=== PATIENT | female | born 1945 | race Caucasian/White ===

== ENCOUNTER 2016-09-27 09:06 | Emergency (ER) | payer OTHER ==
[~2016-09-27] VITALS: Ht 160 cm; Wt 89.5 kg
[~2016-09-27 09:06] MED LIST: ATOR-26 PO; CARV3.12 PO; CHOL2000 PO; CHRO1CAP3 PO; CITA20TA4 PO; FENO160T PO; GLIP-197 PO; LORA-741 PO; LOSA50TA6 PO; METF-384 PO; MRLP17 PO; NTRGSL/4 SL; OMEG10007 PO; OMEP40CA PO; POTA1TAB PO; SITA100T3 PO
[2016-09-27 09:13] VITALS: TEMP 37.2
[2016-09-27 09:14] VITALS: O2SAT 95
[2016-09-27 10:04] LABS: BASO % 0.6 %; BASO ABS # 0.03 K/uL (0-0.2); COMPLETE YES; EOS % 1.9 %; HEMATOCRIT 34.4 % (37-47); IG% 0.2 %; LYMPH % 31.7 %; LYMPH ABS # 1.64 K/uL (1.2-3.4); MEAN CELL VOLUME 82.5 fL (80-100); MEAN CORPUSCULAR HEMOGLOBIN 27.6 pg (25-34); MEAN CORPUSCULAR HGB CONC 33.4 g/dl (32-36); MEAN PLATELET VOLUME 10.1 fL (7.4-10.4); MONO % 7.7 %; NEUT % 57.9 %; PLATELET COUNT 210 K/uL (130-400); RED BLOOD COUNT 4.17 M/uL (4.2-5.4); WHITE BLOOD COUNT 5.18 K/uL (4.8-10.8)
[2016-09-27 10:11] LABS: ALT/SGPT 16 U/L (12-78); BLOOD UREA NITROGEN 22 mg/dl (7-18); BUN/CREATININE RATIO 17.9 (10-20); CALCIUM 8.6 mg/dl (8.5-10.1); CARBON DIOXIDE 23 mmol/L (21-32); CHLORIDE 111 mmol/L (98-107); GLUCOSE 150 mg/dl (70-99); POTASSIUM 4.5 mmol/L (3.5-5.1); SODIUM 144 mmol/L (136-145)
[2016-09-27] MEDS ORDERED: BACL10TA PO (10:14)
[2016-09-27] MEDS ORDERED: LACT10SO17 PO (10:14)
[2016-09-27 10:16] LABS: ALKALINE PHOSPHATASE 43 U/L (45-117); AST/SGOT 12 U/L (15-37)
[2016-09-27 10:17] LABS: PROTHROMBIN TIME (PATIENT) 10.9 SECONDS (9.0-12.0)
--- NOTE | 2016-09-27 10:26 | DIAGNOSTIC IMAGING REPORT ---
LEFT RIBS UNILATERAL WITH PA CHEST CLINICAL HISTORY: Left-sided pain. COMPARISON STUDY: Chest radiograph November 11, 2015. FINDINGS: There is no pneumothorax or pleural effusion. Lungs are clear. Cardiomediastinal silhouette is normal. There is no evidence of pulmonary edema. No acute left-sided rib fractures are identified. IMPRESSION: No pneumothorax. No acute left-sided rib fractures identified. Electronically signed by: Jimmy Chavarria M.D. 09/27/2016 10:25 AM Dictated Date/Time: 09/27/2016 10:24 AM
[2016-09-27] MEDS ORDERED: HYDROmorphone INJ 1 MG/ML SYR IV STA (11:37)
[2016-09-27 12:44] VITALS: O2SAT 98; Ht 160 cm; Wt 89.5 kg
[2016-09-27] MEDS ORDERED: OPTIRAY 320 IV PRN (12:45)
[2016-09-27 13:04] LABS: BASO % 0.7 %; BASO ABS # 0.04 K/uL (0-0.2); COMPLETE YES; EOS % 1.5 %; HEMATOCRIT 34.4 % (37-47); IG% 0.3 %; LYMPH % 30.9 %; LYMPH ABS # 1.85 K/uL (1.2-3.4); MEAN CELL VOLUME 84.9 fL (80-100); MEAN CORPUSCULAR HEMOGLOBIN 27.9 pg (25-34); MEAN CORPUSCULAR HGB CONC 32.8 g/dl (32-36); MEAN PLATELET VOLUME 10.1 fL (7.4-10.4); MONO % 6.2 %; NEUT % 60.4 %; PLATELET COUNT 199 K/uL (130-400); RED BLOOD COUNT 4.05 M/uL (4.2-5.4); WHITE BLOOD COUNT 5.98 K/uL (4.8-10.8)
[2016-09-27 13:27] LABS: ALKALINE PHOSPHATASE 42 U/L (45-117); ALT/SGPT 17 U/L (12-78); BLOOD UREA NITROGEN 22 mg/dl (7-18); BUN/CREATININE RATIO 19.8 (10-20); CALCIUM 8.5 mg/dl (8.5-10.1); CARBON DIOXIDE 29 mmol/L (21-32); CHLORIDE 111 mmol/L (98-107); GLUCOSE 133 mg/dl (70-99); SODIUM 147 mmol/L (136-145)
--- NOTE | 2016-09-27 13:40 | DIAGNOSTIC IMAGING REPORT ---
CT OF THE ABDOMEN AND PELVIS WITH CONTRAST CLINICAL HISTORY: Epigastric pain. Elevated lipase. COMPARISON STUDY: CT of the abdomen and pelvis November 29, 2013. TECHNIQUE: Following IV administration of 118 mL of Optiray-320, axial images of the abdomen and pelvis were obtained from the lung bases to the proximal femurs. Images were reviewed in the axial, sagittal, and coronal planes. IV contrast was administered without complication. CT DOSE: 789.53 mGy.cm FINDINGS: Visualized portions of the lower chest demonstrate mild wall thickening of the distal esophagus with a possible small hiatal hernia. The gallbladder is not visualized and likely surgically absent. Borderline dilatation of the common bile duct is unchanged since CT of November 29, 2013. The spleen, adrenal glands and kidneys are unremarkable. There is no hydronephrosis. There is no pancreatic ductal dilatation. There is no peripancreatic infiltration. The appearance of the pancreas is unchanged since a prior CT. There is no evidence for a bowel obstruction. The appendix is not visualized. No lymphadenopathy is present. Skeletal structures are unremarkable. IMPRESSION: 1. Normal CT appearance of the pancreas; however, this does not exclude the possibility of acute pancreatitis. 2. No acute process within the abdomen or pelvis by CT. Electronically signed by: Jimmy Chavarria M.D. 09/27/2016 1:39 PM Dictated Date/Time: 09/27/2016 1:29 PM
--- NOTE | 2016-09-27 14:01 | EMERGENCY ROOM VISIT NOTE ---
ED Visit Note First contact with patient: 09:28 Patient evaluated with JAVI. 71-year-old presented to the emergency room for waxing and waning most likely positional left-sided shoulder pain radiating down left arm over the last 2-3. She notes she is in low income housing and a house mate called for help today after the patient noted these symptoms. Coronary artery disease status post HI 3 roughly 10 years ago with cardiology follow-up reportedly within the last 2 years and negative stress test. She denies any exertional nor pleuritic components. Screening labs today revealed a lipase of over 3500 on the patient had minimal if any epigastric tenderness on my exam. She also denies any GI complaints. Is unclear but this lipase remains within the context of the clinical history and exam today. Therefore, repeat lab work arranged. Given unclear nature patient's results in the context the patient's complaints agree w/ plan for further evaluation.
--- NOTE | 2016-09-27 14:42 | EMERGENCY ROOM VISIT NOTE ---
History First contact with patient: 09:28 Chief Complaint: CHEST PAIN Stated Complaint: CHEST DISCOMFORT Nursing Triage Summary: chest pain for 2-3 weeks got worse last 2 days saw pcp and said pulled muscle. History of Present Illness The patient is a 71 year old female who presents to the Emergency Room with complaints of chest pain for the past 2 weeks which has gotten worse over the past 2 days. The patient states that she saw her PCP 2 days after the onset of the symptoms and was diagnosed with a pulled muscle. The patient denies any injury to the upper body. The patient denies any strenuous activity prior to the onset of the symptoms. The patient denies any increased shortness of breath. The patient states the pain goes across her chest and sometimes down her left arm with movement. She also states she has increased pain with a deep breath or cough. The patient denies any history of osteoporosis. The patient denies any current smoking but does smoke when she was younger. The patient denies any history of clots. She is not on any hormone she denies any recent travel. The patient states that she had a stress test one or 2 years ago which was normal. She was followed by Dr. Lau. She denies any history of cardiac disease. Review of Systems 10 system review was performed and was negative unless stated otherwise history of present illness. Past Medical/Surgical History Medical Problems: (1) Chest pain (2) Diabetes (3) Heart disease (4) HTN (hypertension) (5) AZ (myocardial infarction) (6) Right Knee DJD Family History Diabetes mellitus Hypertension Social History Smoking Status: Never Smoker Alcohol Use: none Drug Use: none Marital Status: Housing Status: lives with family Occupation Status: retired Current/Historical Medications Scheduled Atorvastatin (Lipitor), 80 MG PO HS Baclofen (Lioresal), 10 MG PO TID Carvedilol (Coreg), 3.125 MG PO QPM Cholecalciferol (Vitamin D3), 1 CAP PO QAM Chromium Picolinate (Chromium Picolinate), 1,000 MCG PO NOON Citalopram Hydrobromide (Citalopram Hydrobromide), 20 MG PO QAM Fenofibrate (Tricor), 160 MG PO NOON Fish Oil ([place]-3), 1 CAP PO QAM Glipizide (Glipizide Er), 5 MG PO QAM Losartan Potassium (Cozaar), 50 MG PO QAM Metformin Hcl (Glucophage), 1,000 MG PO BID Nitroglycerin (Nitrostat), 0.4 MG SL PRN Polyethylene (Miralax), 17 GM PO DAILY Potassium Gluconate (Potassium Gluconate), 595 MG PO QAM Sitagliptin Phosphate (Januvia), 100 MG PO QAM Scheduled PRN Lorazepam (Ativan), 0.5 MG PO QAM PRN for Anxiety Miscellaneous Medications Lactulose (Chronulac) Allergies Coded Allergies: Sulfa Antibiotics (Verified Allergy, Intermediate, HIVES, 09/27/16) Cephalexin (Verified Allergy, Unknown, RASH ITCHING, 09/27/16) Cephalosporins (Verified Allergy, Unknown, RASH ITCHING, 09/27/16) Physical Exam Vital Signs Date Time Temp Pulse Resp B/P Pulse Ox O2 Delivery O2 Flow Rate FiO2 09/27/16 13:45 88 18 158/94 97 09/27/16 13:05 75 09/27/16 12:44 98 Room Air 09/27/16 12:26 88 18 171/97 98 Room Air 09/27/16 11:07 76 18 148/90 96 Room Air 09/27/16 09:47 86 18 149/75 99 Room Air 09/27/16 09:15 91 09/27/16 09:14 95 Room Air 09/27/16 09:13 37.2 95 20 175/75 98 Room Air 09/27/16 09:10 98 Physical Exam GENERAL: 71-year-old white female appears in no acute distress. MENTAL Status: Alert and oriented 3 EYES: PERRLA. EOMs intact. NECK: Supple, no lymphadenopathy noted. No carotid bruits noted. LUNGS: Clear auscultation without wheezes rales or rhonchi. CARDIAC: Regular rate and rhythm without murmur. Pulses is full and equal throughout. CHEST WALL: No erythema or edema noted. No ecchymosis noted. The patient has tenderness palpation over the left anterior chest wall remainder chest wall is nontender. Able to reproduce increased pain with deep inspiration or movement of the left arm. ABDOMEN: Soft hyperactive bowel sounds throughout. Mild tenderness palpation in the epigastric region otherwise nontender without organomegaly or masses LOWER EXTREMITY is: No cyanosis or edema noted. Calves are nontender. Negative Homans bilaterally. Medical Decision & Procedures ER Provider Diagnostic Interpretation: LEFT RIBS UNILATERAL WITH PA CHEST CLINICAL HISTORY: Left-sided pain. COMPARISON STUDY: Chest radiograph November 11, 2015. FINDINGS: There is no pneumothorax or pleural effusion. Lungs are clear. Cardiomediastinal silhouette is normal. There is no evidence of pulmonary edema. No acute left-sided rib fractures are identified. IMPRESSION: No pneumothorax. No acute left-sided rib fractures identified. Electronically signed by: Jimmy Chavarria M.D. 09/27/2016 10:25 AM Dictated Date/Time: 09/27/2016 10:[address] OF THE ABDOMEN AND PELVIS WITH CONTRAST CLINICAL HISTORY: Epigastric pain. Elevated lipase. COMPARISON STUDY: CT of the abdomen and pelvis November 29, 2013. TECHNIQUE: Following IV administration of 118 mL of Optiray-320, axial images of the abdomen and pelvis were obtained from the lung bases to the proximal femurs. Images were reviewed in the axial, sagittal, and coronal planes. IV contrast was administered without complication. CT DOSE: 789.53 mGy.cm FINDINGS: Visualized portions of the lower chest demonstrate mild wall thickening of the distal esophagus with a possible small hiatal hernia. The gallbladder is not visualized and likely surgically absent. Borderline dilatation of the common bile duct is unchanged since CT of November 29, 2013. The spleen, adrenal glands and kidneys are unremarkable. There is no hydronephrosis. There is no pancreatic ductal dilatation. There is no peripancreatic infiltration. The appearance of the pancreas is unchanged since a prior CT. There is no evidence for a bowel obstruction. The appendix is not visualized. No lymphadenopathy is present. Skeletal structures are unremarkable. IMPRESSION: 1. Normal CT appearance of the pancreas; however, this does not exclude the possibility of acute pancreatitis. 2. No acute process within the abdomen or pelvis by CT. Electronically signed by: Jimmy Chavarria M.D. 09/27/2016 1:39 PM Dictated Date/Time: 09/27/2016 1:29 PM Laboratory Results 09/27/16 13:00 Red Blood Count 4.05, Mean Corpuscular Volume 84.9, Mean Corpuscular Hemoglobin 27.9, Mean Corpuscular Hemoglobin Concent 32.8, Mean Platelet Volume 10.1, Neutrophils (%) (Auto) 60.4, Lymphocytes (%) (Auto) 30.9, Monocytes (%) (Auto) 6.2, Eosinophils (%) (Auto) 1.5, Basophils (%) (Auto) 0.7, Neutrophils # (Auto) 3.61, Lymphocytes # (Auto) 1.85, Monocytes # (Auto) 0.37, Eosinophils # (Auto) 0.09, Basophils # (Auto) 0.04 09/27/16 13:00 Test 09/27/16 09:20 09/27/16 13:00 Prothrombin Time 10.9 SECONDS (9.0-12.0) Prothromb Time International Ratio 1.0 (0.9-1.1) Activated Partial Thromboplast Time 25.2 SECONDS (21.0-31.0) Partial Thromboplastin Ratio 1.0 D-Dimer 470 ug/L FEU (0-500) Total Creatine Kinase 36 U/L (26-192) Creatine Kinase MB < 0.5 ng/ml (0.5-3.6) Creatine Kinase MB Ratio (0-3.0) Pro-B-Type Natriuretic Peptide 365 pg/ml (0-900) White Blood Count 5.98 K/uL (4.8-10.8) Red Blood Count 4.05 M/uL (4.2-5.4) Hemoglobin 11.3 g/dL (12.0-16.0) Hematocrit 34.4 % (37-47) Mean Corpuscular Volume 84.9 fL (80-100) Mean Corpuscular Hemoglobin 27.9 pg (25-34) Mean Corpuscular Hemoglobin Concent 32.8 g/dl (32-36) Platelet Count 199 K/uL (130-400) Mean Platelet Volume 10.1 fL (7.4-10.4) Neutrophils (%) (Auto) 60.4 % Lymphocytes (%) (Auto) 30.9 % Monocytes (%) (Auto) 6.2 % Eosinophils (%) (Auto) 1.5 % Basophils (%) (Auto) 0.7 % Neutrophils # (Auto) 3.61 K/uL (1.4-6.5) Lymphocytes # (Auto) 1.85 K/uL (1.2-3.4) Monocytes # (Auto) 0.37 K/uL (0.11-0.59) Eosinophils # (Auto) 0.09 K/uL (0-0.5) Basophils # (Auto) 0.04 K/uL (0-0.2) RDW Standard Deviation 44.3 fL (36.4-46.3) RDW Coefficient of Variation 14.2 % (11.5-14.5) Immature Granulocyte % (Auto) 0.3 % Immature Granulocyte # (Auto) 0.02 K/uL (0.00-0.02) Anion Gap 7.0 mmol/L (3-11) Est Creatinine Clear Calc Drug Dose 51.2 ml/min Estimated GFR () 59.3 Estimated GFR (Non- 51.2 BUN/Creatinine Ratio 19.8 (10-20) Calcium Level 8.5 mg/dl (8.5-10.1) Total Bilirubin 0.3 mg/dl (0.2-1) Direct Bilirubin mg/dl (0-0.2) Aspartate Amino Transf (AST/SGOT) U/L (15-37) Alanine Aminotransferase (ALT/SGPT) 17 U/L (12-78) Alkaline Phosphatase 42 U/L (45-117) Troponin I 0.024 ng/ml (0-0.045) Total Protein 6.2 gm/dl (6.4-8.2) Albumin 3.2 gm/dl (3.4-5.0) Lipase 1463 U/L (73-393) ECG Indication: chest pain Rhythm: normal sinus Findings: no acute ischemic change Change: no significant change ED Course The patient was evaluated. The patient was placed on a monitor. IV access was obtained. The patient was offered pain medication but declined. CBC and differential and renal profile, coags, CK-MB,, LFTs, lipase, except for elevated troponin, d-dimer were ordered labs are reviewed and were all unremarkable except for lipase was elevated at 3000.. EKG was ordered and interpreted by myself as above without any acute findings. Rib x-rays with PA chest was ordered and interpreted by the radiologist and myself as above without any acute findings. Repeat troponin was ordered and was normal. The patient was independently evaluated by . The patient was not clinically correlated with the patient's elevated lipase for acute pancreatitis. Repeat labs were drawn and the patient's lipase went down until 1400. I contacted the hospitalist who also independently evaluated and did not feel that this patient needed to be admitted. A CT of the pelvis was ordered and interpreted by the radiologist as above without any acute findings. The decision was made to discharge the patient. The patient was in agreement with treatment plan. She was discharged home in stable condition. Medical Decision Since the patient did not have symptoms consistent with acute pancreatitis she was discharged home. Differential diagnosis for the chest pain and daily muscular strain, acute PE, acute AZ, pleuritic chest pain, pneumonia, bronchitis, rib fracture Impression Primary Impression: Chest wall pain Additional Impression: Elevated lipase Departure Information Dispostion Home / Self-Care Condition GOOD Referrals Lalito Pimentel M.D. (PCP) Forms HOME CARE DOCUMENTATION FORM, IMPORTANT VISIT INFORMATION Patient Instructions ED Chest Pain NonCardiac, [facility] Additional Instructions Tylenol and/or ibuprofen as needed for pain. Avoid any strenuous exercise which her upper body. Follow-up with your PCP in 2 days for recheck as well as repeat lipase. If symptoms worsen in the interim, return to ER immediately. Problem Qualifiers
[2016-09-27 14:47] VITALS: BP 168/89; PULSE 88; O2SAT 99
--- NOTE | 2016-09-28 07:25 | CONSULTATION REPORT ---
DATE OF CONSULTATION: 09/27/2016 CHIEF COMPLAINT: Chest pain HPI A 71 yo female comes with chest discomfort associated with left shoulder pain radiating down to her left arm. She describes her pain as sharp, 2/3. She lives in low-income housing and her housemate called for help today and patient noted those symptoms. PAST MEDICAL HISTORY: Coronary artery disease status post DC x3 roughly 10 years ago with cardiology follow up reportedly within the last 2 years and had a negative stress test. She denies any exertional pleuritic pain. Her labs revealed lipase of 3500; however, she had no abdominal pain. She has no nausea, vomiting, diarrhea, and no fever. REVIEW OF SYSTEMS: Negative except as above. Ten out of 14 systems were reviewed. PAST MEDICAL HISTORY: Chest pain, diabetes, heart disease, hypertension, DC, coronary artery disease, right knee DJD. FAMILY HISTORY: Diabetes mellitus and hypertension. SOCIAL HISTORY: Does not smoke, does not drink, does not use drugs. ALLERGIES: CEPHALEXIN, CEPHALOSPORINS, SULFA ANTIBIOTICS. CURRENT MEDICATIONS: Atorvastatin 80 mg p.o. at bedtime, baclofen 10 mg p.o. t.i.d., Coreg 3.125 mg p.o. daily, cholecalciferol 1 capsule p.o. daily, chromium 1000 mcg p.o. at noon time, citalopram 20 mg p.o. daily, fenofibrate 160 mg p.o. at noon time, fish oil 1 capsule p.o. daily, glipizide 5 mg p.o. daily, losartan 50 mg p.o. daily, metformin 1000 mg p.o. b.i.d., nitroglycerin 0.4 mg sublingual p.r.n., polyethylene 17 grams p.o. daily, potassium gluconate 595 mg p.o. daily and Januvia 100 mg p.o. daily, lorazepam 0.5 mg p.o. p.r.n. anxiety, and also lactulose unknown dose. PHYSICAL EXAMINATION: VITAL SIGNS: Temperature 37.2, pulse 88, respirations 18, blood pressure 158/94, 97% on room air. GENERAL: Not in acute distress. HEENT: Normocephalic, atraumatic. PERRLA, EOMI. Mouth moist, no lesions. NECK: No JVD. Trachea midline. Throat is not enlarged. LUNGS: Clear to auscultation bilateral. No wheezes, no rhonchi. HEART: S1, S2, RRR. ABDOMEN: Soft, nontender, nondistended, bowel sounds present bilateral. EXTREMITIES: No clubbing, cyanosis, edema. SKIN: No rash, no jaundice. LYMPHATIC: No pathological lymphadenopathy. NEUROLOGICAL: Alert and oriented x3. Motor and sensory are normal. Deep tendon reflexes 2+ bilateral. Babinski is negative. DIAGNOSTIC DATA: Chest x-ray with left ribs unilateral, no pneumothorax, no acute left-sided rib fractures identified. CT abdomen and pelvis with contrast showed normal CT appearance of the pancreas. No acute process within the abdomen and pelvis CT. LABORATORY DATA: CBC normal except for hemoglobin of 11.3. BMP: Sodium 147, potassium not done, chloride 111, CO2 of 29, BUN of 22, creatinine 1.1, glucose of 133, lipase of 3325 with repeat one in 4 hours is 1463. INR 1.0. PTT 25.2. D-dimer 470 and hepatitis C antibody pending on admission. ELECTROCARDIOGRAM: Normal sinus rhythm, 95 beats per minute. QTC 429. No ST-T wave changes, normal axis, no deviation. ASSESSMENT AND PLAN: This is a 71-year-old female who comes to Emergency Room complaining of chest discomfort, who found to have lipase of 3325. 1. Suspected acute pancreatitis which is resolving with repeat lipase level of 1463. The patient is symptomatic; therefore no admission is required. The patient should follow up with primary care physician in 2-3 weeks, and should follow up bland diet for 1 week and then continue with low fat diet. 2. Type 2 diabetes. Restart metformin and Januvia. The patient has stable sugars. 3. History of hypertension. Continue with losartan. 4. History of hyperlipidemia. Continue with Tricor and Lipitor. 5. Constipation. MiraLax p.r.n. 6. The patient is a full code. TIME SPENT ON DOING THIS CONSULTATION: 40 minutes. FABIOLA
[2017-03-07] MEDS ORDERED: PANT40TA PO (10:20)
[2017-03-07] MEDS ORDERED: LORA-741 PO (10:20)
[2017-03-07] MEDS ORDERED: CRFUDL PO (10:20)
== END 2016-09-27 14:59 | disposition home or self-care (01) ==
LOC: C.EDB 09:06 → EDBD 09:06 → C.EDB 14:59
DX: R07.89 Other chest pain (principal); R74.8 Abnormal levels of other serum enzymes; I25.10 Atherosclerotic heart disease of native coronary artery without angina pectoris; E11.9 Type 2 diabetes mellitus without complications; I10 Essential (primary) hypertension; E78.5 Hyperlipidemia, unspecified; I25.2 Old myocardial infarction; M17.9 Osteoarthritis of knee, unspecified; Z83.3 Family history of diabetes mellitus; Z82.49 Family history of ischemic heart disease and other diseases of the circulatory system; Z87.891 Personal history of nicotine dependence; Z79.899 Other long term (current) drug therapy

== ENCOUNTER → 2016-09-28 | Outpatient (CLI) | payer OTHER ==
[~2016-09-28] MED LIST changes: +BACL10TA PO; +CRFUDL PO; +CYM30 PO; +INSDGIPEN SQ; +ISOS60TA25 PO; +LACT10SO17 PO; +LISI-461 PO; +PANT40TA PO; +ROSU40TA18 PO
[2016-09-28 17:17] LABS: BASO % 0.7 %; BASO ABS # 0.04 K/uL (0-0.2); COMPLETE YES; EOS % 1.5 %; HEMATOCRIT 34.5 % (37-47); IG% 0.4 %; LYMPH % 36.7 %; MEAN CELL VOLUME 84.1 fL (80-100); MEAN CORPUSCULAR HEMOGLOBIN 27.3 pg (25-34); MEAN CORPUSCULAR HGB CONC 32.5 g/dl (32-36); MEAN PLATELET VOLUME 10.7 fL (7.4-10.4); NEUT % 53.7 %; PLATELET COUNT 230 K/uL (130-400); WHITE BLOOD COUNT 5.45 K/uL (4.8-10.8)
[2016-09-28 17:32] LABS: ALT/SGPT 16 U/L (12-78); BLOOD UREA NITROGEN 24 mg/dl (7-18); CARBON DIOXIDE 27 mmol/L (21-32); CHLORIDE 107 mmol/L (98-107); GLUCOSE 191 mg/dl (70-99); POTASSIUM 4.1 mmol/L (3.5-5.1); SODIUM 145 mmol/L (136-145)
[2016-09-28 17:35] LABS: ALKALINE PHOSPHATASE 46 U/L (45-117); AST/SGOT 11 U/L (15-37)
== END | disposition home or self-care (01) ==
LOC: C.LABBC 15:15
PROVIDERS: ATTEND Internal Medicine Geriatric Medicine
DX: R74.8 Abnormal levels of other serum enzymes (principal); E11.9 Type 2 diabetes mellitus without complications

== ENCOUNTER → 2016-11-03 | Outpatient (CLI) | payer OTHER ==
[~2016-11-03] MED LIST changes: -OMEP40CA PO
[2016-11-03 12:43] LABS: ESTIMATED AVERAGE GLUCOSE 263 mg/dl; HA1C FLAG Normal (Normal)
[2016-11-03 13:26] LABS: ALT/SGPT 31 U/L (12-78); AST/SGOT 13 U/L (15-37); BLOOD UREA NITROGEN 14 mg/dl (7-18); BUN/CREATININE RATIO 12.4 (10-20); CALCIUM 9.3 mg/dl (8.5-10.1); CARBON DIOXIDE 30 mmol/L (21-32); CHLORIDE 102 mmol/L (98-107); GLUCOSE 334 mg/dl (70-99); POTASSIUM 4.8 mmol/L (3.5-5.1); SODIUM 138 mmol/L (136-145)
[2016-11-03 13:31] LABS: ALKALINE PHOSPHATASE 81 U/L (45-117); CHOLESTEROL 219 mg/dl (0-200); CHOLESTEROL/HDL RATIO 6.8; HDL CHOLESTEROL 32 mg/dl; LDL CHOLESTEROL CALCULATED 118 mg/dl; TRIGLYCERIDES 345 mg/dl (0-150); VERY LOW DENSITY LIPOPROT CALC 69 mg/dl
[2016-11-03 13:38] LABS: BETA-HYDROXYBUTYRATE 1.09 mg/dL (0.2-2.81)
--- NOTE | 2016-11-09 09:05 | CODING QUERY MEDICAL NECESSITY ---
SUPPORTING DIAGNOSIS NEEDED A supporting diagnosis is required for the test/procedure performed on this patient in order for us to be reimbursed by the patient's insurance. Please provide a supporting diagnosis for the following test/procedure listed below next to the test name along with your signature. *If there is no additional diagnosis for this patient that would support the following test/procedure please document that below next to the test/procedure. Test(s)/Procedure(s) that require a supporting diagnosis: DOS 11/03 * Hba1c DIAGNOSIS: Provider Signature: Date: Thank you [facility] Once completed, please kindly fax back to [phone] For questions please call [phone]
== END | disposition home or self-care (01) ==
LOC: C.LABBFT 08:49
PROVIDERS: ATTEND Internal Medicine
DX: I10 Essential (primary) hypertension (principal); E11.9 Type 2 diabetes mellitus without complications

== ENCOUNTER 2017-01-21 10:03 | Emergency (ER) | payer OTHER ==
[~2017-01-21] VITALS: Ht 160 cm; Wt 85.6 kg
[~2017-01-21 10:03] MED LIST changes: -CRFUDL PO; -CYM30 PO; -INSDGIPEN SQ; -ISOS60TA25 PO; -LISI-461 PO; -PANT40TA PO; -ROSU40TA18 PO
[2017-01-21 10:07] VITALS: TEMP 37; Ht 160 cm; Wt 85.6 kg
--- NOTE | 2017-01-21 10:34 | EMERGENCY ROOM VISIT NOTE ---
History Report prepared by Ema: Nicki Calvin Under the Supervision of: Dr. Taryn Duarte M.D. First contact with patient: 10:23 Chief Complaint: CARDIAC ASSESSMENT Stated Complaint: CHEST PAIN AND PAIN DOWN LEFT ARM History of Present Illness The patient is a 71 year old female who presents to the Emergency Room with complaints of constant chest pain beginning today. The patient states that she has been having chest pain over the last month and has been seeing her doctor for the pain. She reports that today her pain worsened and that is why she came into the ED this morning. She notes that her pain is radiating into her left arm. The patient complains of left arm pain. She denies any cough, cold, and runny nose. She states that she has had a stress test before that was normal. The patient reports that she has a history of pancreatitis and CAD. She notes that when she moves and takes a deep breath it makes her chest pain worse. She states that she has not taken her medications today. Source of History: patient Onset: today Position: chest Quality: other (radiating) Timing: constant Modifying Factors (Worsening): movement Associated Symptoms: No sorethroat, No cough Note: Pt denies any runny nose. She complains of left arm pain. Review of Systems See HPI for pertinent positives & negatives. A total of 10 systems reviewed and were otherwise negative. Past Medical & Surgical Medical Problems: (1) Chest pain (2) Diabetes (3) Heart disease (4) HTN (hypertension) (5) [place] (myocardial infarction) (6) Right Knee DJD Family History Diabetes mellitus Hypertension Social History Smoking Status: Former Smoker Alcohol Use: none Drug Use: none Marital Status: Housing Status: lives with family Occupation Status: retired Current/Historical Medications Scheduled Atorvastatin (Lipitor), 80 MG PO HS Baclofen (Lioresal), 10 MG PO TID Carvedilol (Coreg), 3.125 MG PO QPM Cholecalciferol (Vitamin D3), 1 CAP PO QAM Chromium Picolinate (Chromium Picolinate), 1,000 MCG PO NOON Citalopram Hydrobromide (Citalopram Hydrobromide), 20 MG PO QAM Fenofibrate (Tricor), 160 MG PO NOON Fish Oil ([place]-3), 1 CAP PO QAM Glipizide (Glipizide Er), 5 MG PO QAM Lactulose (Chronulac), 15 ML PO UD Losartan Potassium (Cozaar), 50 MG PO QAM Metformin Hcl (Glucophage), 1,000 MG PO BID Nitroglycerin (Nitrostat), 0.4 MG SL PRN Polyethylene (Miralax), 17 GM PO DAILY Potassium Gluconate (Potassium Gluconate), 595 MG PO QAM Sitagliptin Phosphate (Januvia), 100 MG PO QAM Scheduled PRN Lorazepam (Ativan), 0.5 MG PO QAM PRN for Anxiety Allergies Coded Allergies: Sulfa Antibiotics (Verified Allergy, Intermediate, HIVES, 01/21/17) Cephalexin (Verified Allergy, Unknown, RASH ITCHING, 01/21/17) Cephalosporins (Verified Allergy, Unknown, RASH ITCHING, 01/21/17) Physical Exam Vital Signs Date Time Temp Pulse Resp B/P (MAP) Pulse Ox O2 Delivery O2 Flow Rate FiO2 01/21/17 13:34 59 15 149/80 96 Room Air 01/21/17 12:40 61 01/21/17 11:54 71 22 160/86 99 Room Air 01/21/17 11:52 94 Room Air 01/21/17 10:17 72 01/21/17 10:07 37.0 73 18 177/78 99 Room Air Physical Exam Vital signs reviewed. General: Chronically ill-appearing, elderly, in no significant distress. HEENT: No scleral icterus, PERRLA, neck supple. Atraumatic. Cardiovascular: Regular rate and rhythm, no extra sounds. Pulmonary: Clear to auscultation bilaterally, normal work of breathing. Abdomen: Soft, nontender, nondistended, positive bowel sounds. Musculoskeletal: Atraumatic, no peripheral edema. Neurologic: Patient awake alert and oriented x 3 Skin: Warm, dry, no rash Medical Decision & Procedures ER Provider Diagnostic Interpretation: X-ray results as stated below per interpretation by me and the radiologist: CHEST ONE VIEW PORTABLE FINDINGS: The heart is at the upper limits of normal in size. There is no overt failure. There is no focal pulmonary consolidation. There are no pleural effusions. IMPRESSION: No active disease in the chest. Electronically signed by: Edis Childs M.D. 01/21/2017 11:01 AM Dictated Date/Time: 01/21/2017 11:01 AM Laboratory Results 01/21/17 10:19 Red Blood Count 4.38, Mean Corpuscular Volume 83.1, Mean Corpuscular Hemoglobin 28.1, Mean Corpuscular Hemoglobin Concent 33.8, Mean Platelet Volume 10.0, Neutrophils (%) (Auto) 59.9, Lymphocytes (%) (Auto) 30.4, Monocytes (%) (Auto) 7.6, Eosinophils (%) (Auto) 1.6, Basophils (%) (Auto) 0.4, Neutrophils # (Auto) 4.01, Lymphocytes # (Auto) 2.04, Monocytes # (Auto) 0.51, Eosinophils # (Auto) 0.11, Basophils # (Auto) 0.03 01/21/17 10:19 Test 01/21/17 10:19 01/21/17 10:50 White Blood Count 6.71 K/uL (4.8-10.8) Red Blood Count 4.38 M/uL (4.2-5.4) Hemoglobin 12.3 g/dL (12.0-16.0) Hematocrit 36.4 % (37-47) Mean Corpuscular Volume 83.1 fL (80-100) Mean Corpuscular Hemoglobin 28.1 pg (25-34) Mean Corpuscular Hemoglobin Concent 33.8 g/dl (32-36) Platelet Count 186 K/uL (130-400) Mean Platelet Volume 10.0 fL (7.4-10.4) Neutrophils (%) (Auto) 59.9 % Lymphocytes (%) (Auto) 30.4 % Monocytes (%) (Auto) 7.6 % Eosinophils (%) (Auto) 1.6 % Basophils (%) (Auto) 0.4 % Neutrophils # (Auto) 4.01 K/uL (1.4-6.5) Lymphocytes # (Auto) 2.04 K/uL (1.2-3.4) Monocytes # (Auto) 0.51 K/uL (0.11-0.59) Eosinophils # (Auto) 0.11 K/uL (0-0.5) Basophils # (Auto) 0.03 K/uL (0-0.2) RDW Standard Deviation 41.1 fL (36.4-46.3) RDW Coefficient of Variation 13.6 % (11.5-14.5) Immature Granulocyte % (Auto) 0.1 % Immature Granulocyte # (Auto) 0.01 K/uL (0.00-0.02) Anion Gap 7.0 mmol/L (3-11) Est Creatinine Clear Calc Drug Dose 55.0 ml/min Estimated GFR () 66.6 Estimated GFR (Non- 57.4 BUN/Creatinine Ratio 17.6 (10-20) Calcium Level 8.7 mg/dl (8.5-10.1) Total Bilirubin 0.4 mg/dl (0.2-1) Direct Bilirubin 0.1 mg/dl (0-0.2) Aspartate Amino Transf (AST/SGOT) 15 U/L (15-37) Alanine Aminotransferase (ALT/SGPT) 22 U/L (12-78) Alkaline Phosphatase 75 U/L (45-117) Total Creatine Kinase 48 U/L (26-192) Creatine Kinase MB < 0.5 ng/ml (0.5-3.6) Creatine Kinase MB Ratio (0-3.0) Total Protein 7.1 gm/dl (6.4-8.2) Albumin 3.6 gm/dl (3.4-5.0) Lipase 368 U/L (73-393) Bedside Troponin I < 0.030 ng/ml (0-0.045) Laboratory results per my review. Medications Administered Medications (Trade) Dose Ordered Sig/Jett Route Start Time Stop Time Status Last Admin Dose Admin Aspirin (Aspirin Chew) 324 mg NOW STAT PO 01/21/17 10:44 01/21/17 10:47 DC 01/21/17 11:51 324 MG Acetaminophen/ Hydrocodone Bitart ([place] 5/325 Tab) 1 tab NOW STAT PO 01/21/17 10:44 01/21/17 10:47 DC 01/21/17 11:50 1 TAB ECG Indication: chest pain Rate (beats per minute): 68 Rhythm: normal sinus Findings: no acute ischemic change, no ectopy ED Course 1023: Past medical records reviewed. The patient was evaluated in room B6. A complete history and physical examination was performed. 1044: [place] 5/325 Tab 1 tab PO, Aspirin 324mg PO. 1334: Upon reevaluation, the patient appeared to have improvement of her symptoms. I discussed findings with the patient. She verbalized agreement of the treatment plan. The patient was discharged home. Medical Decision DDx: Acute coronary syndrome, pulmonary embolus, aortic dissection, musculoskeletal pain, pneumonia, pleural effusion, pneumothorax Medication Reconciliation: I attest that I have personally reviewed the patient' s current medication list. Blood Pressure Screening: Patient was found to have an elevated blood pressure and was referred to their primary doctor for recheck and further treatment. This pt was evaluated and appeared to be in no distress. IV access was obtained and lab work was drawn. EKG reveals no acute ischemia. CXR is negative. Pt was given ASA 324mg po. PE is significant for reproducible L chest wall tenderness. Cardiac enzymes are negative x 2. Pt was d/c to f/u with PCP and to return to the ED for worsening of symptoms or any medical concerns. She will return to the ED for worsening of symptoms or any medical concerns. Impression Primary Impression: Musculoskeletal chest pain Scribe Attestation The scribe's documentation has been prepared under my direction and personally reviewed by me in its entirety. I confirm that the note above accurately reflects all work, treatment, procedures, and medical decision making performed by me. Departure Information Dispostion Home / Self-Care Referrals Lalito Pimentel M.D. (PCP) Forms IMPORTANT VISIT INFORMATION Patient Instructions My [facility] [place] Additional Instructions Diagnosis: Musculoskeletal chest pain Tylenol 650 mg every 6 hours as needed for pain. Warm compresses and gentle stretching for relief of her discomfort. Follow-up with your primary care physician for consideration of physical therapy if symptoms continue. Return to the ER for worsening of symptoms or any medical concerns.
[2017-01-21] MEDS ORDERED: ASPIRIN 81 MG CHEW PO STA (10:44)
[2017-01-21] MEDS ORDERED: HYDROCODONE/ACETAMOPHEN 5/325MG TAB PO STA (10:44)
[2017-01-21 10:53] LABS: BASO % 0.4 %; BASO ABS # 0.03 K/uL (0-0.2); COMPLETE YES; EOS % 1.6 %; HEMATOCRIT 36.4 % (37-47); IG% 0.1 %; LYMPH % 30.4 %; LYMPH ABS # 2.04 K/uL (1.2-3.4); MEAN CELL VOLUME 83.1 fL (80-100); MEAN CORPUSCULAR HEMOGLOBIN 28.1 pg (25-34); MEAN CORPUSCULAR HGB CONC 33.8 g/dl (32-36); MONO % 7.6 %; NEUT % 59.9 %; PLATELET COUNT 186 K/uL (130-400); RED BLOOD COUNT 4.38 M/uL (4.2-5.4); WHITE BLOOD COUNT 6.71 K/uL (4.8-10.8)
--- NOTE | 2017-01-21 11:03 | DIAGNOSTIC IMAGING REPORT ---
CHEST ONE VIEW PORTABLE CLINICAL HISTORY: Atypical chest pain COMPARISON STUDY: 11/11/2015 FINDINGS: The heart is at the upper limits of normal in size. There is no overt failure. There is no focal pulmonary consolidation. There are no pleural effusions.[ IMPRESSION: No active disease in the chest. Electronically signed by: Edis Childs M.D. 01/21/2017 11:01 AM Dictated Date/Time: 01/21/2017 11:01 AM
[2017-01-21 11:04] LABS: ALT/SGPT 22 U/L (12-78); AST/SGOT 15 U/L (15-37); BLOOD UREA NITROGEN 18 mg/dl (7-18); BUN/CREATININE RATIO 17.6 (10-20); CALCIUM 8.7 mg/dl (8.5-10.1); CARBON DIOXIDE 26 mmol/L (21-32); CHLORIDE 110 mmol/L (98-107); GLUCOSE 105 mg/dl (70-99); POTASSIUM 4.3 mmol/L (3.5-5.1); SODIUM 143 mmol/L (136-145)
[2017-01-21 11:09] LABS: ALKALINE PHOSPHATASE 75 U/L (45-117)
[2017-01-21 13:34] VITALS: BP 149/80; PULSE 59; O2SAT 96
[2017-03-07] MEDS ORDERED: CRFUDL PO (10:20)
[2017-03-07] MEDS ORDERED: PANT40TA PO (10:20)
[2017-03-07] MEDS ORDERED: LORA-741 PO (10:20)
== END 2017-01-21 13:37 | disposition home or self-care (01) ==
LOC: C.EDB 10:05
DX: R07.89 Other chest pain (principal); I10 Essential (primary) hypertension; E11.9 Type 2 diabetes mellitus without complications; I51.9 Heart disease, unspecified; I25.2 Old myocardial infarction; M17.11 Unilateral primary osteoarthritis, right knee; Z79.84 Long term (current) use of oral hypoglycemic drugs; Z79.899 Other long term (current) drug therapy; Z87.891 Personal history of nicotine dependence; Z88.2 Allergy status to sulfonamides; Z83.3 Family history of diabetes mellitus; Z82.49 Family history of ischemic heart disease and other diseases of the circulatory system

== ENCOUNTER → 2017-02-01 | Outpatient (CLI) | payer OTHER ==
[~2017-02-01] MED LIST changes: +CRFUDL PO; +CYM30 PO; +INSDGIPEN SQ; +ISOS60TA25 PO; +LISI-461 PO; +PANT40TA PO; +ROSU40TA18 PO
--- NOTE | 2017-02-01 15:28 | DIAGNOSTIC IMAGING REPORT ---
CERVICAL SPINE 3 VIEWS HISTORY: Pain. Radiculopathy. M54.2 Cervical pain (neck)[id number] COMPARISON: None. FINDINGS: The cervical spine is visualized from C1 through the superior endplate of T1. There is no fracture. No subluxation. Disc spaces are preserved. Minimal degenerative changes C1-C2 articulation IMPRESSION: Minimal degenerative change of the C1-C2 articulation. Otherwise negative study Electronically signed by: Kendall Martin M.D. 02/01/2017 3:27 PM Dictated Date/Time: 02/01/2017 3:26 PM
== END | disposition home or self-care (01) ==
LOC: C.RAD1850 14:58
PROVIDERS: ATTEND Physician Assistant
DX: M54.2 Cervicalgia (principal)

== ENCOUNTER 2017-03-04 17:12 | Observation (INO) | payer OTHER ==
[~2017-03-04] VITALS: Ht 160 cm; Wt 86.3 kg
[~2017-03-04 17:12] MED LIST changes: -CRFUDL PO; -CYM30 PO; -INSDGIPEN SQ; -ISOS60TA25 PO; -LISI-461 PO; -PANT40TA PO; -ROSU40TA18 PO
[2017-03-04] MEDS ORDERED: ONDANSETRON INJ 2 MG/ML 2 ML VIAL IV STA (17:26)
[2017-03-04] MEDS ORDERED: MoRPHine SULFATE 4 MG/ML 1 ML CARP\\VIAL IV STA (17:26)
[2017-03-04] MEDS ORDERED: CYM30 PO (17:29)
[2017-03-04] MEDS ORDERED: ISOS60TA25 PO (17:29)
--- NOTE | 2017-03-04 17:29 | EMERGENCY ROOM VISIT NOTE ---
History Report prepared by Ema: Abel Morales Under the Supervision of: Dr. Lio Duarte M.D. First contact with patient: 17:19 Chief Complaint: CHEST PAIN Stated Complaint: HEART PAIN History of Present Illness The patient is a 71 year old female with a history of depression, diabetes, and heart attacks who presents to the Emergency Room with complaints of worsening chest pain that started a couple months ago. She says that she has been seen here 3 times in the past 2 months for the same chest pain, and states that nothing abnormal has been found. The patient states that she has had worsening chest pain since this morning, and she called her primary care physician's office earlier today, and was recommended to come here for evaluation. The patient says that she aches "all the time" in her chest. She notes that she did not fall or injure herself. She states that the pain is worsened with breathing and movement. The patient adds that she has not had any energy recently, and cannot walk more than 10 minutes. The patient says that she has been short of breath, and her chest pain is exacerbated with breathing or movement. She notes that she is diabetic, but has not taken her medication the past few days due to not feeling well. She denies any new leg or foot swelling. The patient had a stress test last October. She is not on any blood thinners. Source of History: patient Onset: A couple months ago Position: chest Quality: ache Timing: worsening Modifying Factors (Worsening): breathing, movement Associated Symptoms: + SOB, + fatigue Note: Associated symptoms: Denies any new foot or leg swelling. Review of Systems See HPI for pertinent positives & negatives. A total of 10 systems reviewed and were otherwise negative. Past Medical & Surgical Medical Problems: (1) Chest pain (2) Diabetes (3) Diabetes (4) Heart disease (5) HTN (hypertension) (6) [place] (myocardial infarction) (7) Right Knee DJD Old medical records were reviewed. Nurse's notes were reviewed and I agree with. Family History Diabetes mellitus Hypertension Social History Smoking Status: Former Smoker Alcohol Use: none Drug Use: none Marital Status: Housing Status: lives with family Occupation Status: retired Current/Historical Medications Scheduled Baclofen (Lioresal), 10 MG PO TID Carvedilol (Coreg), 3.125 MG PO QPM Cholecalciferol (Vitamin D3), 1 CAP PO QAM Chromium Picolinate (Chromium Picolinate), 1,000 MCG PO NOON Citalopram Hydrobromide (Citalopram Hydrobromide), 20 MG PO QAM Duloxetine HCl (Duloxetine HCl), 30 MG PO DAILY Fenofibrate (Tricor), 160 MG PO NOON Fish Oil ([place]-3), 1 CAP PO QAM Glipizide (Glipizide Er), 5 MG PO QAM Insulin Glargine (Lantus Solostar), 10 UNITS SQ QPM Isosorbide Mononitrate Ext Rel (Imdur Ext Rel), 60 MG PO DAILY Lactulose (Chronulac), 15 ML PO UD Lisinopril (Lisinopril), 10 MG PO DAILY Losartan Potassium (Cozaar), 50 MG PO QAM Metformin Hcl (Glucophage), 1,000 MG PO BID Nitroglycerin (Nitrostat), 0.4 MG SL PRN Polyethylene (Miralax), 17 GM PO DAILY Potassium Gluconate (Potassium Gluconate), 595 MG PO QAM Rosuvastatin Calcium (Rosuvastatin Calcium), 40 MG PO DAILY Sitagliptin Phosphate (Januvia), 100 MG PO QAM Scheduled PRN Lorazepam (Ativan), 0.5 MG PO QAM PRN for Anxiety Allergies Coded Allergies: Sulfa Antibiotics (Verified Allergy, Intermediate, HIVES, 01/21/17) Cephalexin (Verified Allergy, Unknown, RASH ITCHING, 03/04/17) Cephalosporins (Verified Allergy, Unknown, RASH ITCHING, 03/04/17) Physical Exam Vital Signs Date Time Temp Pulse Resp B/P (MAP) Pulse Ox O2 Delivery O2 Flow Rate FiO2 03/04/17 19:57 72 18 137/82 96 Room Air 03/04/17 18:30 83 03/04/17 18:06 74 18 129/66 94 Room Air 03/04/17 17:24 Room Air 03/04/17 17:17 36.7 86 16 144/80 97 Physical Exam General: Well developed well nourished teary eyed older female in no respiratory distress, breathing comfortably on room air. Normal speech HEENT: Normal cephalic atraumatic. Pupils are equal round and reactive to light. Extraocular movements are intact. Oropharynx is pink with moist mucous membranes. No swelling of the mouth lips or tongue. Neck: Supple with a midline trachea. No meningeal signs or stiffness, no JVD or bruits. No Stridor. Chest: Chest reproducibly tender. Clear to auscultation bilaterally. No wheezes or rhonchi. No increased work of breathing. Heart: regular rate and rhythm. Abdomen: Soft nontender, nondistended without rebound guarding or rigidity. Extremities: No cyanosis clubbing or edema. No calf tenderness or assymetry Spine/Back. Non tender to palpation. No CVA tenderness Skin: Good turgor without rashes. Neurologic exam: Cranial nerves two through 12 are intact. Motor and sensation are intact and symmetrical throughout. Medical Decision & Procedures ER Provider Diagnostic Interpretation: Radiology results as stated below per my review and radiologist interpretation: CHEST ONE VIEW PORTABLE CLINICAL HISTORY: CHEST PAIN dyspnea COMPARISON STUDY: 01/21/2017 FINDINGS: The bones soft tissues and hemidiaphragms are normal. The cardiomediastinal silhouette is normal. The lungs are clear. The pulmonary vasculature is normal. IMPRESSION: Negative chest. The above report was generated using voice recognition software. It may contain grammatical, syntax or spelling errors. Electronically signed by: Kendall Martin M.D. 03/04/2017 5:54 PM Dictated Date/Time: 03/04/2017 5:[address] ANGIOGRAPHY OF THE CHEST, PULMONARY EMBOLUS PROTOCOL CLINICAL HISTORY: Chest pain. COMPARISON STUDY: Chest radiograph January 21, 2017 and March 04, 2017. TECHNIQUE: Following IV administration of 81 mL of Optiray-320, helical axial images of the chest were obtained utilizing the pulmonary embolus protocol. Maximal intensity projections and sagittal and coronal reformats were viewed on an independent 3D workstation. IV contrast was administered without complication. A dose lowering technique was utilized adhering to the principles of ALARA. CT DOSE: 481.11 mGy.cm FINDINGS: No pulmonary emboli are identified. There is no thoracic aortic dissection. The heart is mildly enlarged. There is no pericardial effusion. There is moderate coronary artery calcification. There is mild distal esophageal wall thickening. No pneumothorax or pleural effusion is present. There are no areas of consolidation to suggest pneumonia. Mild dependent groundglass opacities reflect atelectasis. The central airways are patent. There are no enlarged axillary, mediastinal or hilar lymph nodes. The bony thorax and upper abdomen are unremarkable. IMPRESSION: 1. No pulmonary emboli identified. 2. No consolidation to suggest pneumonia. 3. Mild cardiomegaly and moderate coronary artery calcification. No thoracic aortic dissection. 4. Mild distal esophageal wall thickening. This is nonspecific and could be due to underdistention although esophagitis could have this appearance. Electronically signed by: Jimmy Chavarria M.D. 03/04/2017 7:31 PM Dictated Date/Time: 03/04/2017 7:23 PM Laboratory Results 03/04/17 17:30 Red Blood Count 4.46, Mean Corpuscular Volume 80.9, Mean Corpuscular Hemoglobin 28.3, Mean Corpuscular Hemoglobin Concent 34.9, Mean Platelet Volume 9.9, Neutrophils (%) (Auto) 84.2, Lymphocytes (%) (Auto) 12.2, Monocytes (%) (Auto) 2.5, Eosinophils (%) (Auto) 0.0, Basophils (%) (Auto) 0.1, Neutrophils # (Auto) 7.72, Lymphocytes # (Auto) 1.12, Monocytes # (Auto) 0.23, Eosinophils # (Auto) 0.00, Basophils # (Auto) 0.01 03/04/17 17:30 Test 03/04/17 17:30 03/04/17 17:34 White Blood Count 9.17 K/uL (4.8-10.8) Red Blood Count 4.46 M/uL (4.2-5.4) Hemoglobin 12.6 g/dL (12.0-16.0) Hematocrit 36.1 % (37-47) Mean Corpuscular Volume 80.9 fL (80-100) Mean Corpuscular Hemoglobin 28.3 pg (25-34) Mean Corpuscular Hemoglobin Concent 34.9 g/dl (32-36) Platelet Count 263 K/uL (130-400) Mean Platelet Volume 9.9 fL (7.4-10.4) Neutrophils (%) (Auto) 84.2 % Lymphocytes (%) (Auto) 12.2 % Monocytes (%) (Auto) 2.5 % Eosinophils (%) (Auto) 0.0 % Basophils (%) (Auto) 0.1 % Neutrophils # (Auto) 7.72 K/uL (1.4-6.5) Lymphocytes # (Auto) 1.12 K/uL (1.2-3.4) Monocytes # (Auto) 0.23 K/uL (0.11-0.59) Eosinophils # (Auto) 0.00 K/uL (0-0.5) Basophils # (Auto) 0.01 K/uL (0-0.2) RDW Standard Deviation 41.5 fL (36.4-46.3) RDW Coefficient of Variation 14.0 % (11.5-14.5) Immature Granulocyte % (Auto) 1.0 % Immature Granulocyte # (Auto) 0.09 K/uL (0.00-0.02) Anion Gap 7.0 mmol/L (3-11) Est Creatinine Clear Calc Drug Dose 38.9 ml/min Estimated GFR () 44.3 Estimated GFR (Non- 38.2 BUN/Creatinine Ratio 17.5 (10-20) Calcium Level 10.4 mg/dl (8.5-10.1) Total Bilirubin 0.4 mg/dl (0.2-1) Direct Bilirubin 0.1 mg/dl (0-0.2) Aspartate Amino Transf (AST/SGOT) 14 U/L (15-37) Alanine Aminotransferase (ALT/SGPT) 32 U/L (12-78) Alkaline Phosphatase 86 U/L (45-117) Total Creatine Kinase 25 U/L (26-192) Creatine Kinase MB < 0.5 ng/ml (0.5-3.6) Creatine Kinase MB Ratio (0-3.0) Total Protein 6.9 gm/dl (6.4-8.2) Albumin 3.5 gm/dl (3.4-5.0) Lipase 219 U/L (73-393) Beta-Hydroxybutyric Acid 1.49 mg/dL (0.2-2.81) Bedside D-Dimer > 450 ng/mlFEU (0-450) Bedside Troponin I < 0.030 ng/ml (0-0.045) NT-Ryc-X-Type Natriuretic Peptide 335 pg/ml (0-900) Laboratory studies as stated above per my review. Medications Administered Medications (Trade) Dose Ordered Sig/Jett Route Start Time Stop Time Status Last Admin Dose Admin Ondansetron HCl (Zofran Inj) 4 mg NOW STAT IV 7/20/17 17:26 03/04/17 17:28 DC 03/04/17 17:40 4 MG Morphine Sulfate (MoRPHine SULFATE INJ) 2 mg STK-MED ONCE .ROUTE 03/04/17 17:34 03/04/17 17:35 DC 03/04/17 17:40 2 MG Morphine Sulfate (MoRPHine SULFATE INJ) 2 mg NOW STAT IV 03/04/17 20:04 03/04/17 20:05 DC 03/04/17 20:36 2 MG Al Hydrox/Mg Hydrox/Simethicone (Maalox Max Susp) 15 ml Q4H PRN PO 03/04/17 20:15 04/03/17 20:14 03/04/17 22:27 15 ML ECG Indication: chest pain Rate (beats per minute): 81 Rhythm: normal sinus Findings: no acute ischemic change, no ectopy Change: no significant change (compared to January 21 2017) ED Course 1722: Past medical records reviewed. The patient was evaluated in room C6, and a complete history and physical examination were performed. 1725: Ordered Morphine Sulfate Inj 2 mg IV, Zofran Inj 4 mg IV. 1800: I reevaluated the patient and she appears more comfortable. She is going to CT. 1941: Upon reevaluation, the patient is resting. I discussed the results and treatment plan with the patient. She verbalized agreement of the treatment plan. The patient will be evaluated for further management. 2004: I discussed the patient with Dr. Esparza - [facility] hospitalist - he will evaluate the patient for further treatment. Medical Decision Differentials include, but are not limited to; acute coronary syndrome, arrhythmia, PE, CHF, pneumothorax, musculoskeletal, anxiety. This patient comes in as described above she's having chest pain. She's had chest pain. She has had this a lot in the past but this has gotten significant worse over last day or so. IV access, established EKG was obtained as well as multiple blood testing. EKG shows no acute ischemic of changes. No arrhythmia. Her cardiac biomarkers are not elevated. D-dimer was elevated and light of this, I did do a chest CT and she has no evidence of PE or other acute abnormality. She was given IV morphine and IV Zofran and did receive additional IV morphine. She are he does take aspirin. Chest x-ray was unremarkable. I do think the patient needs to be ruled out for acute cardiac event. She has a history of having cardiac disease in the past with stents but she also has noncardiac chest pain history as well as difficult to fully rule her out in the ER. I did consult Dr. Esparza who saw the the patient seen in the ER and she will be further observed in the hospital. Medication Reconcilliation Current Medication List: was personally reviewed by me Blood Pressure Screening Patient's blood pressure: Elevated blood pressure Blood pressure disposition: Referred to PCP Consults Time Called: 1999 Consulting Physician: Dr. Vilma BUSTOS hospitalist Returned Call: 2004 I discussed the patient with Dr. Vilma BUSTOS hospitalist - he will evaluate the patient for further treatment. Impression Primary Impression: Precordial chest pain Scribe Attestation The scribe's documentation has been prepared under my direction and personally reviewed by me in its entirety. I confirm that the note above accurately reflects all work, treatment, procedures, and medical decision making performed by me. Departure Information Dispostion Being Evaluated By Hospitalist Referrals Lalito Pimentel M.D. (PCP) Patient Instructions My [facility]
[2017-03-04] MEDS ORDERED: MoRPHine SULFATE 2 MG/ML CARP ONE (17:34)
[2017-03-04] MEDS ORDERED: ROSU40TA18 PO (17:38)
[2017-03-04] MEDS ORDERED: INSDGIPEN SQ (17:38)
[2017-03-04] MEDS ORDERED: LISI-461 PO (17:38)
[2017-03-04 17:39] LABS: BASO % 0.1 %; BASO ABS # 0.01 K/uL (0-0.2); COMPLETE YES; HEMATOCRIT 36.1 % (37-47); LYMPH % 12.2 %; LYMPH ABS # 1.12 K/uL (1.2-3.4); MEAN CELL VOLUME 80.9 fL (80-100); MEAN CORPUSCULAR HEMOGLOBIN 28.3 pg (25-34); MEAN CORPUSCULAR HGB CONC 34.9 g/dl (32-36); MEAN PLATELET VOLUME 9.9 fL (7.4-10.4); MONO % 2.5 %; NEUT % 84.2 %; PLATELET COUNT 263 K/uL (130-400); RED BLOOD COUNT 4.46 M/uL (4.2-5.4); WHITE BLOOD COUNT 9.17 K/uL (4.8-10.8)
--- NOTE | 2017-03-04 17:55 | DIAGNOSTIC IMAGING REPORT ---
CHEST ONE VIEW PORTABLE CLINICAL HISTORY: CHEST PAIN dyspnea COMPARISON STUDY: 01/21/2017 FINDINGS: The bones soft tissues and hemidiaphragms are normal. The cardiomediastinal silhouette is normal. The lungs are clear. The pulmonary vasculature is normal. IMPRESSION: Negative chest. The above report was generated using voice recognition software. It may contain grammatical, syntax or spelling errors. Electronically signed by: Kendall Martin M.D. 03/04/2017 5:54 PM Dictated Date/Time: 03/04/2017 5:54 PM
[2017-03-04 17:56] LABS: POINT OF CARE PRO-BNP 335 pg/ml (0-900); POINT OF CARE TROPONIN I < 0.030 ng/ml (0-0.045)
[2017-03-04 18:31] LABS: ALKALINE PHOSPHATASE 86 U/L (45-117); ALT/SGPT 32 U/L (12-78); AST/SGOT 14 U/L (15-37); BLOOD UREA NITROGEN 25 mg/dl (7-18); BUN/CREATININE RATIO 17.5 (10-20); CALCIUM 10.4 mg/dl (8.5-10.1); CARBON DIOXIDE 26 mmol/L (21-32); CHLORIDE 101 mmol/L (98-107); GLUCOSE 452 mg/dl (70-99); POTASSIUM 4.4 mmol/L (3.5-5.1); SODIUM 134 mmol/L (136-145)
[2017-03-04 19:12] LABS: BETA-HYDROXYBUTYRATE 1.49 mg/dL (0.2-2.81)
[2017-03-04] MEDS ORDERED: OPTIRAY 320 IV PRN (19:30)
--- NOTE | 2017-03-04 19:33 | DIAGNOSTIC IMAGING REPORT ---
CT ANGIOGRAPHY OF THE CHEST, PULMONARY EMBOLUS PROTOCOL CLINICAL HISTORY: Chest pain. COMPARISON STUDY: Chest radiograph January 21, 2017 and March 04, 2017. TECHNIQUE: Following IV administration of 81 mL of Optiray-320, helical axial images of the chest were obtained utilizing the pulmonary embolus protocol. Maximal intensity projections and sagittal and coronal reformats were viewed on an independent 3D workstation. IV contrast was administered without complication. A dose lowering technique was utilized adhering to the principles of ALARA. CT DOSE: 481.11 mGy.cm FINDINGS: No pulmonary emboli are identified. There is no thoracic aortic dissection. The heart is mildly enlarged. There is no pericardial effusion. There is moderate coronary artery calcification. There is mild distal esophageal wall thickening. No pneumothorax or pleural effusion is present. There are no areas of consolidation to suggest pneumonia. Mild dependent groundglass opacities reflect atelectasis. The central airways are patent. There are no enlarged axillary, mediastinal or hilar lymph nodes. The bony thorax and upper abdomen are unremarkable. IMPRESSION: 1. No pulmonary emboli identified. 2. No consolidation to suggest pneumonia. 3. Mild cardiomegaly and moderate coronary artery calcification. No thoracic aortic dissection. 4. Mild distal esophageal wall thickening. This is nonspecific and could be due to underdistention although esophagitis could have this appearance. Electronically signed by: Jimmy Chavarria M.D. 03/04/2017 7:31 PM Dictated Date/Time: 03/04/2017 7:23 PM
[2017-03-04] MEDS ORDERED: MoRPHine SULFATE 2 MG/ML CARP IV STA (20:04)
[2017-03-04] MEDS ORDERED: ONDANSETRON INJ 2 MG/ML 2 ML VIAL IV PRN (20:15)
[2017-03-04] MEDS ORDERED: ALUMINUM/MAGNESIUM/SIMETH (MAALOX MAX) 30 ML UDC PO PRN (20:15)
[2017-03-04] MEDS ORDERED: MAGNESIUM HYDROXIDE SUSP 30 ML UDC PO PRN (20:15)
[2017-03-04] MEDS ORDERED: LORAZEPAM 0.5 MG TAB PO PRN ×2 (20:15→20:45)
[2017-03-04] MEDS ORDERED: ACETAMINOPHEN 325 MG TAB PO PRN (20:15)
[2017-03-04] MEDS ORDERED: NITROGLYCERIN 0.4 MG SL PER TAB CHARGE SL PRN (20:15)
[2017-03-04] MEDS ORDERED: INSULIN GLARGINE SOLOSTAR 100 UNITS/ML 3 ML PEN SC STA (20:21)
[2017-03-04] MEDS ORDERED: MoRPHine SULFATE 2 MG/ML CARP IV PRN (20:45)
[2017-03-04] MEDS ORDERED: GLUCAGON FOR INJ 1 MG VIAL SQ PRN (20:45)
[2017-03-04] MEDS ORDERED: DEXTROSE 50% 50 ML SYR IV PRN (20:45)
[2017-03-04] MEDS ORDERED: GLUCOSE 40% GEL 15 GM TUBE PO PRN (20:45)
[2017-03-04] MEDS ORDERED: GLUCOSE 10 TABS/TUBE PO PRN (20:45)
[2017-03-04] MEDS ORDERED: LORAZEPAM 2 MG/ML 1 ML VIAL IV PRN (20:45)
--- NOTE | 2017-03-04 20:48 | History and Physical ---
History & Physical Date & Time of Service: Mar 04, 2017 at 20:40 Chief Complaint: Heart Pain Primary Care Physician: Lalito Pimentel M.D. History of Present Illness Source: patient This patient presents with intermittent chest pain for last 2 months. She says it feels sharp and she knows that something is wrong. The patient is a history of a non-STEMI in 2005 with 2 subsequent stents one in the right coronary artery one the LAD. She states that the pain is reminiscent of her chest pain however not as dramatic nor associated with nausea. The the pain is occasionally associated short of breath. Additional history that makes it sound noncardiac it is not exacerbated by exertion, it can be occasionally relieved by 2-3 Tums. She noticed increasing belching. The patient also notes that sometimes she has dysphagia to water but always has dysphagia to solids to the point where she eats soft foods. She does not typically take nonsteroidals may use excessive amounts of caffeine. Over last few days she's felt so ill she has not taken her evening dose of Lantus and subsequently is marked elevation of her glucose on presentation. Her initial cardiac screen is negative including EKG and serology, she had a CT angiogram because of elevated d-dimer which was negative for PE but interesting did comment on distal esophageal thickening. Because of her risk factors of previous coronary disease and diabetes the patient will be brought in for chest pain, because of a negative dobutamine stress echo in October [address] Lau to determine if any further risk stratification is needed and if not (that is if her echo and serology are negative) we'll consul gastroenterology for possible endoscopy to evaluate her distal esophageal thickening and complaints of dysphagia. Past Medical/Surgical History Medical Problems: (1) Diabetes Status: Chronic (2) Heart disease Status: Chronic non-STEMI 2006 stent RCA and LAD (3) HTN (hypertension) Status: Chronic (4) [place] (myocardial infarction) Status: Resolved Lumbar spinal surgery Right total knee arthroplasty next Chronic constipation Family History Diabetes mellitus Hypertension Social History Smoking Status: Former Smoker Smokeless Tobacco Use: No Alcohol Use: none Drug Use: none Marital Status: Occupational Status: retired Immunizations History of Influenza Vaccine: Yes Influenza Vaccine Date: Jun 04, 2013 History of Tetanus Vaccine?: Unknown History of Pneumococcal: Unknown History of Hepatitis B Vaccine: Unknown Multi-Drug Resistant Organisms History of MDRO: No Allergies Coded Allergies: Sulfa Antibiotics (Verified Allergy, Intermediate, HIVES, 01/21/17) Cephalexin (Verified Allergy, Unknown, RASH ITCHING, 03/04/17) Cephalosporins (Verified Allergy, Unknown, RASH ITCHING, 03/04/17) Home Medications Scheduled Baclofen (Lioresal), 10 MG PO TID Carvedilol (Coreg), 3.125 MG PO QPM Cholecalciferol (Vitamin D3), 1 CAP PO QAM Chromium Picolinate (Chromium Picolinate), 1,000 MCG PO NOON Citalopram Hydrobromide (Citalopram Hydrobromide), 20 MG PO QAM Duloxetine HCl (Duloxetine HCl), 30 MG PO DAILY Fenofibrate (Tricor), 160 MG PO NOON Fish Oil ([place]-3), 1 CAP PO QAM Glipizide (Glipizide Er), 5 MG PO QAM Insulin Glargine (Lantus Solostar), 10 UNITS SQ QPM Isosorbide Mononitrate Ext Rel (Imdur Ext Rel), 60 MG PO DAILY Lactulose (Chronulac), 15 ML PO UD Lisinopril (Lisinopril), 10 MG PO DAILY Losartan Potassium (Cozaar), 50 MG PO QAM Metformin Hcl (Glucophage), 1,000 MG PO BID Nitroglycerin (Nitrostat), 0.4 MG SL PRN Polyethylene (Miralax), 17 GM PO DAILY Potassium Gluconate (Potassium Gluconate), 595 MG PO QAM Rosuvastatin Calcium (Rosuvastatin Calcium), 40 MG PO DAILY Sitagliptin Phosphate (Januvia), 100 MG PO QAM Scheduled PRN Lorazepam (Ativan), 0.5 MG PO QAM PRN for Anxiety Review of Systems ROS: well nourished well developed No double vision blurry vision Patient has dysphagia to liquids and solids No palpitations, chest pain or pressure No Wheezing or breathing issues Mild right upper quadrant abdominal pain no nausea vomiting chronic changes of constipation No burning urine urine frequency or changes in color No focal joint pain or muscle pain No skin rashes or oral lesions No unusual bruising or bleeding No focused back pain or numbness or loss of strength No changes in memory or confusion Physical Exam Vital Signs Date Time Temp Pulse Resp B/P (MAP) Pulse Ox O2 Delivery O2 Flow Rate FiO2 03/04/17 19:57 72 18 137/82 96 Room Air 03/04/17 18:30 83 03/04/17 18:06 74 18 129/66 94 Room Air 03/04/17 17:24 Room Air 03/04/17 17:17 36.7 86 16 144/80 97 General Appearance: WD/WN, + mild distress Head: normocephalic, atraumatic Eyes: PERRL, EOMI Neck: supple, thyroid normal Respiratory/Chest: chest non-tender, lungs clear, normal breath sounds Cardiovascular: regular rate, rhythm, no murmur, + pertinent finding (chest is nontender to palpation) Abdomen/GI: normal bowel sounds, soft, + tenderness (tenderness is in the right upper quadrant but not reproducible) Back: normal inspection (except for well-healed scar lumbar spinal area nontender) Extremities/Musculoskelatal: no pedal edema, normal range of motion Neurologic/Psych: alert, oriented x 3 Skin: normal color, warm/dry, no rash Diagnostics Laboratory Results Results Past 24 Hours Test 03/04/17 17:30 03/04/17 17:34 Range/Units White Blood Count 9.17 4.8-10.8 K/uL Red Blood Count 4.46 4.2-5.4 M/uL Hemoglobin 12.6 12.0-16.0 g/dL Hematocrit 36.1 37-47 % Mean Corpuscular Volume 80.9 80-100 fL Mean Corpuscular Hemoglobin 28.3 25-34 pg Mean Corpuscular Hemoglobin Concent 34.9 32-36 g/dl Platelet Count 263 130-400 K/uL Mean Platelet Volume 9.9 7.4-10.4 fL Neutrophils (%) (Auto) 84.2 % Lymphocytes (%) (Auto) 12.2 % Monocytes (%) (Auto) 2.5 % Eosinophils (%) (Auto) 0.0 % Basophils (%) (Auto) 0.1 % Neutrophils # (Auto) 7.72 1.4-6.5 K/uL Lymphocytes # (Auto) 1.12 1.2-3.4 K/uL Monocytes # (Auto) 0.23 0.11-0.59 K/uL Eosinophils # (Auto) 0.00 0-0.5 K/uL Basophils # (Auto) 0.01 0-0.2 K/uL RDW Standard Deviation 41.5 36.4-46.3 fL RDW Coefficient of Variation 14.0 11.5-14.5 % Immature Granulocyte % (Auto) 1.0 % Immature Granulocyte # (Auto) 0.09 0.00-0.02 K/uL Sodium Level 134 136-145 mmol/L Potassium Level 4.4 3.5-5.1 mmol/L Chloride Level 101 98-107 mmol/L Carbon Dioxide Level 26 21-32 mmol/L Anion Gap 7.0 3-11 mmol/L Blood Urea Nitrogen 25 7-18 mg/dl Creatinine 1.40 0.60-1.20 mg/dl Est Creatinine Clear Calc Drug Dose 38.9 ml/min Estimated GFR () 44.3 Estimated GFR (Non- 38.2 BUN/Creatinine Ratio 17.5 10-20 Random Glucose 452 70-99 mg/dl Calcium Level 10.4 8.5-10.1 mg/dl Total Bilirubin 0.4 0.2-1 mg/dl Direct Bilirubin 0.1 0-0.2 mg/dl Aspartate Amino Transf (AST/SGOT) 14 15-37 U/L Alanine Aminotransferase (ALT/SGPT) 32 12-78 U/L Alkaline Phosphatase 86 45-117 U/L Total Creatine Kinase 25 26-192 U/L Creatine Kinase MB < 0.5 0.5-3.6 ng/ml Creatine Kinase MB Ratio 0-3.0 Total Protein 6.9 6.4-8.2 gm/dl Albumin 3.5 3.4-5.0 gm/dl Lipase 219 73-393 U/L Beta-Hydroxybutyric Acid 1.49 0.2-2.81 mg/dL Bedside D-Dimer > 450 0-450 ng/mlFEU Bedside Troponin I < 0.030 0-0.045 ng/ml UO-Mdi-D-Type Natriuretic Peptide 335 0-900 pg/ml Diagnostic Radiology CT angiogram negative for PE comments and distal esophageal thickening CXR normal Normal EKG Impression Assessment and Plan 71-year-old female with history of diabetes and coronary disease presents with atypical chest pain increased belching and dysphagia, medical noncompliance resulting in elevated blood glucose and poor diabetic control Coronary disease low-dose aspirin continuing with Coreg once a day this dose was confirmed with the patient, isosorbide mononitrate, hypertensive control lisinopril and Cozaar (these were also confirmed the patient) resting echocardiogram serial cardiac enzymes and consult with Drs. order to determine if further risk stratification is needed or if the patient can be cleared to undergo anesthesia for possible EGD. Continue his statin and that is on formulary This patient complains of "heartburn", patient placed on Pepcid IV twice a day aspirin will be kept at low dose Maalox will be offered as needed consideration Carafate consideration of continuing comes use GI consultation for chronic constipation we will continue daily lactulose with when necessary MiraLAX Poorly controlled diabetes, the patient will receive 20 of Lantus this evening and insulin sliding scale continue her Januvia but holding her metformin and glipizide at this time For depression citalopram and duloxetine will be continued DVT prevention is heparin therapy this will be given every 12 dosing unless needed to be held for procedure Patient is a full code Level of Care Telemetry VTE Prophylaxis VTE Risk Assessment Done? Y/N: Yes Risk Level: Moderate Given or contraindicated: Unfractionated heparin SQ
[2017-03-04] MEDS ORDERED: LORAZEPAM INJ 0.5 MG in SYRINGE 0.75 ML IV PRN (21:00)
[2017-03-04] MEDS ORDERED: IV FLUIDS COMPLETED PRN (21:15)
[2017-03-04 21:16] LABS: PARTIAL THROMBOPLASTIN RATIO 1.2; PROTHROMBIN TIME (PATIENT) 10.6 SECONDS (9.0-12.0)
[2017-03-04 21:35] VITALS: BP 189/95; PULSE 68; TEMP 36.8; O2SAT 97; BMI 33.4
[2017-03-04] MEDS: BACLOFEN 10 MG TAB PO SCH (22:27)
[2017-03-04] MEDS: CARVEDILOL 3.125 MG TAB PO SCH (22:27)
[2017-03-04] MEDS: INSULIN ASPART 100 UNITS/ML 3 ML PEN SC SCH (22:33)
[2017-03-04] MEDS: INSULIN GLARGINE SOLOSTAR 100 UNITS/ML 3 ML PEN SQ SCH (22:33)
[2017-03-04] MEDS: FAMOTIDINE IV INJ 20 MG in DEXTROSE 5% 100ML 100 ML IV SCH (23:09)
[2017-03-04] MEDS: HEPARIN SOD 5000 UNIT/0.5 ML CARP SQ SCH (23:10)
[2017-03-04 23:12] VITALS: BP 157/87; PULSE 73; TEMP 36.6; O2SAT 97
[2017-03-05] VITALS (7 sets, daily range): BP systolic 104–135; BP diastolic 68–79; PULSE 51–68; TEMP 36.3–36.8; O2SAT 95–99; Ht 160 cm; Wt 86.3 kg
[2017-03-05] MEDS: INSULIN ASPART 100 UNITS/ML 3 ML PEN SC SCH ×4 (07:00→20:56)
--- NOTE | 2017-03-05 07:07 | Gastrointestinal Consultation ---
Gastrointestinal Consultation Date of Consultation: Mar 05, 2017 Attending Physician: Dr. Esparza Consulting Physician: Dr. Hilario Reason for Consultation: Dysphagia, EGD after cardiac clearance History of Present Illness Patient is a 71 year old female patient of Dr. Lalito Pimentel with a hx of DM, HTN, [place] (2005) who presented to the ED with chest pain. Dr. Gracia is consulted for dysphagia and mild distal esophageal thickening on CT of the chest. We are happy to provide care for this patient in Dr. Gracia's absence. The patient reports non exertional chest pain and also mentions that for months , she has had intermittent dysphagia, nausea and increased belching. Symptoms are relieved with Tums. Dysphagia has been progressive, present with solid, dry foods for some time, and recently some dysphagia with liquids. Dysphagia is now becoming persistent, present "every time" she eats "anything." She is seen and examined while she is resting in bed with the HOB up. She is tearful, stating that her chest hurts and that she is, "in so much pain," nursing is attending to her currently. She is hemodynamically stable with a HR 53, BP 123/78. Past Medical/Surgical History Medical Problems: (1) Chest wall pain Status: Acute (2) Elevated lipase Status: Acute (3) Ileus Status: Acute (4) Musculoskeletal chest pain Status: Acute (5) Precordial chest pain Status: Acute (6) Precordial chest pain Status: Acute Past Medical History: 1. DM 2. CAD, [place] in 200, RCA and LAD stents 3. HTN Past Surgical History: 1. Cardiac stenting 2005 2. Colonoscopy [place] [address] Gracia for rectal bleeding with internal and external hemorrhoids, anal stricture. Family History Diabetes mellitus Hypertension Social History Smoking Status: Former Smoker Alcohol Use: none Drug Use: none Marital Status: Housing Status: lives with family Occupation Status: retired Allergies Coded Allergies: Sulfa Antibiotics (Verified Allergy, Intermediate, HIVES, 01/21/17) Cephalexin (Verified Allergy, Unknown, RASH ITCHING, 03/04/17) Cephalosporins (Verified Allergy, Unknown, RASH ITCHING, 03/04/17) Current Medications Home Meds and Scripts Medications Dose Route/Sig Max Daily Dose Days Date Category Dose Instructions Lantus Solostar (Insulin Glargine) 100 Unit/Ml Inj 10 Units SQ QPM 03/04/17 Reported Rosuvastatin Calcium 40 Mg Tab 40 Mg PO DAILY 03/04/17 Reported Lisinopril 10 Mg Tab 10 Mg PO DAILY 03/04/17 Reported Imdur Ext Rel (Isosorbide Mononitrate) 60 Mg Ertab 60 Mg PO DAILY 03/04/17 Reported Duloxetine HCl 30 Mg Cap 30 Mg PO DAILY 03/04/17 Reported Chronulac (Lactulose) 10 Gm/15 Ml Syrp 15 Ml PO UD 09/27/16 Reported Lioresal (Baclofen) 10 Mg Tab 10 Mg PO TID 09/27/16 Reported Miralax (Polyethylene) 17 Gm Pow 17 Gm PO DAILY 11/13/15 Rx take daily for constipation prevention Potassium Gluconate 595 Mg Tab 595 Mg PO QAM 11/11/15 Reported Cozaar (Losartan Potassium) 50 Mg Tab 50 Mg PO QAM 06/11/15 Reported Ativan (Lorazepam) 0.5 Mg Tab 0.5 Mg PO QAM PRN 06/11/15 Reported Januvia (Sitagliptin Phosphate) 100 Mg Tab 100 Mg PO QAM 06/11/15 Reported Chromium Picolinate 500 Mcg Cap 1,000 Mcg PO NOON 06/11/15 Reported Vitamin D3 (Cholecalciferol) 2,000 Unit Cap 1 Cap PO QAM 90 06/11/15 Reported Nitrostat (Nitroglycerin) 0.4 Mg Tab 0.4 Mg SL PRN 09/04/13 Reported NEEDED FOR CHEST PAIN: ONE TABLET UNDER THE TONGUE EVERY 5 MINUTES UP TO 3 DOSES. Glucophage (Metformin Hcl) 1,000 Mg Tab 1,000 Mg PO BID 09/04/13 Reported Glipizide Er (Glipizide) 5 Mg Tab 5 Mg PO QAM 09/04/13 Reported Tricor (Fenofibrate) 160 Mg Tab 160 Mg PO NOON 09/04/13 Reported Citalopram Hydrobromide 20 Mg Tab 20 Mg PO QAM 09/04/13 Reported Coreg (Carvedilol) 3.125 Mg Tab 3.125 Mg PO QPM 09/04/13 Reported [place]-3 (Fish Oil) 1 Ea Cap 1 Cap PO QAM 04/02/10 Reported Review of Systems Constitutional: No fever, No chills, No sweats, No weight loss, No weakness Eyes: No eye pain, No redness ENT: No sore throat, No trouble swallowing, No pain on swallowing Respiratory: No cough, No wheezing, No shortness of breath, No dyspnea on exertion Cardiac: + see HPI, + chest pain, No edema, No palpitations Abdomen: + see HPI, No pain, No nausea, No vomiting, No diarrhea Neuro: No memory loss, No weakness, No numbness/tingling, No vertigo, No balance problems Psych: No depression symptoms, No anxiety, No insomnia Heme: No abnormal bleeding/bruising, No night sweats Endo: No excessive thirst, No excessive urination Skin: No rash, No itch, No new/changing skin lesions, No jaundice Physical Exam Date Time Temp Pulse Resp B/P (MAP) Pulse Ox O2 Delivery O2 Flow Rate FiO2 03/05/17 04:00 Room Air 03/05/17 03:41 36.4 57 19 104/68 (80) 99 Room Air 03/05/17 00:00 Room Air 03/04/17 23:12 36.6 73 19 157/87 (110) 97 Room Air 03/04/17 21:35 36.8 68 20 189/95 (126) 97 Room Air 03/04/17 21:35 36.8 68 20 189/95 97 Room Air 03/04/17 21:30 72 20 138/75 96 Room Air 03/04/17 19:57 72 18 137/82 96 Room Air 03/04/17 18:30 83 03/04/17 18:06 74 18 129/66 94 Room Air 03/04/17 17:24 Room Air 03/04/17 17:17 36.7 86 16 144/80 97 General Appearance: + moderate distress (anxious, tearfull,c/o chest pain) Eyes: normal inspection, EOMI Neck: supple, no adenopathy, thyroid normal Respiratory/Chest: chest non-tender, lungs clear, normal breath sounds, no accessory muscle use Cardiovascular: regular rate, rhythm, no JVD, no murmur Abdomen: normal bowel sounds, non tender, soft, no organomegaly Extremities: normal inspection, no pedal edema, normal capillary refill Neurologic/Psych: alert, normal mood/affect, oriented x 3 Skin: normal color, no jaundice Laboratory Results Last 24 Hours Test 03/04/17 17:30 03/04/17 17:34 7/20/17 20:50 03/04/17 22:19 White Blood Count 9.17 K/uL Red Blood Count 4.46 M/uL Hemoglobin 12.6 g/dL Hematocrit 36.1 % Mean Corpuscular Volume 80.9 fL Mean Corpuscular Hemoglobin 28.3 pg Mean Corpuscular Hemoglobin Concent 34.9 g/dl Platelet Count 263 K/uL Mean Platelet Volume 9.9 fL Neutrophils (%) (Auto) 84.2 % Lymphocytes (%) (Auto) 12.2 % Monocytes (%) (Auto) 2.5 % Eosinophils (%) (Auto) 0.0 % Basophils (%) (Auto) 0.1 % Neutrophils # (Auto) 7.72 K/uL Lymphocytes # (Auto) 1.12 K/uL Monocytes # (Auto) 0.23 K/uL Eosinophils # (Auto) 0.00 K/uL Basophils # (Auto) 0.01 K/uL RDW Standard Deviation 41.5 fL RDW Coefficient of Variation 14.0 % Immature Granulocyte % (Auto) 1.0 % Immature Granulocyte # (Auto) 0.09 K/uL Sodium Level 134 mmol/L Potassium Level 4.4 mmol/L Chloride Level 101 mmol/L Carbon Dioxide Level 26 mmol/L Anion Gap 7.0 mmol/L Blood Urea Nitrogen 25 mg/dl Creatinine 1.40 mg/dl Est Creatinine Clear Calc Drug Dose 38.9 ml/min Estimated GFR () 44.3 Estimated GFR (Non- 38.2 BUN/Creatinine Ratio 17.5 Random Glucose 452 mg/dl Calcium Level 10.4 mg/dl Total Bilirubin 0.4 mg/dl Direct Bilirubin 0.1 mg/dl Aspartate Amino Transf (AST/SGOT) 14 U/L Alanine Aminotransferase (ALT/SGPT) 32 U/L Alkaline Phosphatase 86 U/L Total Creatine Kinase 25 U/L Creatine Kinase MB < 0.5 ng/ml Creatine Kinase MB Ratio Total Protein 6.9 gm/dl Albumin 3.5 gm/dl Lipase 219 U/L Beta-Hydroxybutyric Acid 1.49 mg/dL Bedside D-Dimer > 450 ng/mlFEU Bedside Troponin I < 0.030 ng/ml [id number] Natriuretic Peptide 335 pg/ml Prothrombin Time 10.6 SECONDS Prothromb Time International Ratio 1.0 Activated Partial Thromboplast Time 31.9 SECONDS Partial Thromboplastin Ratio 1.2 Bedside Glucose 411 mg/dl Test 03/05/17 00:26 03/05/17 02:09 03/05/17 04:44 03/05/17 06:26 Bedside Glucose 312 mg/dl 144 mg/dl Total Creatine Kinase 15 U/L Creatine Kinase MB < 0.5 ng/ml Creatine Kinase MB Ratio Troponin I < 0.015 ng/ml CTA chest 03/04/17: 1. No pulmonary emboli identified. 2. No consolidation to suggest pneumonia. 3. Mild cardiomegaly and moderate coronary artery calcification. No thoracic aortic dissection. 4. Mild distal esophageal wall thickening. This is nonspecific and could be due to underdistention although esophagitis could have this appearance. Impression Patient is a 71 year old female with (likely) non cardiac chest pain. Her hx of dysphagia and CT suggestion of distal esophageal thickening is suggestive of esophagitis. Also considered are esophageal stricture, esophageal spasm, candidiasis. Plan Consider EGD after cardiac clearance. I have personally seen the patient with LUIS FERNANDO Hauser. Her note reflects my exam and findings. I agree with her impression and plan. Ct scan with doubtful significance to lower esophageal findings. ( most likely under inflated esophagus) Will consider EGD once cardiac evaluation is complete. The other option is empiric treatment with BID PPI. Noé Hilario M.D. Addendum: after cardiac clearance was obtained, she was brought to the endoscopy suite. Because she was nauseated, dry heaving or vomiting up small amts of stomach contents, anesthesia preferred to intubate the patient for upper endoscopy. Given higher risk with intubation and possible aspiration risk , it was decided hold on any procedures, but will consider semi elective EGD in the next few weeks.
--- NOTE | 2017-03-05 08:00 | Progress Note ---
Subjective Date of Service: Mar 05, 2017. Subjective this pt is nauseas and could not be sedated for EGD, GI Med wishes to proceed to medical management and if unsuccessful consider EGD as an outpt, pt is willing to try clear liquids but if dysphagia persists may consider barium swallow or speech evaluation. Cardiac eval does not feel this is acs Problem List Medical Problems: (1) Chest wall pain Status: Acute (2) Elevated lipase Status: Acute (3) Ileus Status: Acute (4) Musculoskeletal chest pain Status: Acute (5) Precordial chest pain Status: Acute (6) Precordial chest pain Status: Acute Review of Systems Constitutional: + weakness, + fatigue, No fever, No chills Respiratory: No cough, No shortness of breath, No dyspnea on exertion Cardiac: + chest pain (sharp), No edema Abdomen: + pain, + nausea, + vomiting, No diarrhea, No constipation Musculoskeletal: + joint pain (shoulder), + muscle pain Neurologic: No memory loss, No paralysis Psychiatric: + depression symptoms, + anxiety Objective Vital Signs Date Time Temp Pulse Resp B/P (MAP) Pulse Ox O2 Delivery O2 Flow Rate FiO2 03/05/17 07:19 36.3 54 19 123/78 (93) 98 Room Air 03/05/17 04:00 Room Air 03/05/17 03:41 36.4 57 19 104/68 (80) 99 Room Air 03/05/17 00:00 Room Air 03/04/17 23:12 36.6 73 19 157/87 (110) 97 Room Air 03/04/17 21:35 36.8 68 20 189/95 (126) 97 Room Air 03/04/17 21:35 36.8 68 20 189/95 97 Room Air 03/04/17 21:30 72 20 138/75 96 Room Air 03/04/17 19:57 72 18 137/82 96 Room Air 03/04/17 18:30 83 03/04/17 18:06 74 18 129/66 94 Room Air 03/04/17 17:24 Room Air 03/04/17 17:17 36.7 86 16 144/80 97 Physical Exam General Appearance: WD/WN, + mild distress, + moderate distress Eyes: PERRL, EOMI Neck: supple, no JVD Respiratory/Chest: chest non-tender, lungs clear Cardiovascular: regular rate, rhythm, no murmur Abdomen: normal bowel sounds, + guarding, + tenderness Extremities: no pedal edema, no calf tenderness Neurologic/Psychiatric: alert, oriented x 3 Laboratory Results Last 24 Hours Test 03/04/17 17:30 03/04/17 17:34 03/04/17 20:50 03/04/17 22:19 White Blood Count 9.17 K/uL Red Blood Count 4.46 M/uL Hemoglobin 12.6 g/dL Hematocrit 36.1 % Mean Corpuscular Volume 80.9 fL Mean Corpuscular Hemoglobin 28.3 pg Mean Corpuscular Hemoglobin Concent 34.9 g/dl Platelet Count 263 K/uL Mean Platelet Volume 9.9 fL Neutrophils (%) (Auto) 84.2 % Lymphocytes (%) (Auto) 12.2 % Monocytes (%) (Auto) 2.5 % Eosinophils (%) (Auto) 0.0 % Basophils (%) (Auto) 0.1 % Neutrophils # (Auto) 7.72 K/uL Lymphocytes # (Auto) 1.12 K/uL Monocytes # (Auto) 0.23 K/uL Eosinophils # (Auto) 0.00 K/uL Basophils # (Auto) 0.01 K/uL RDW Standard Deviation 41.5 fL RDW Coefficient of Variation 14.0 % Immature Granulocyte % (Auto) 1.0 % Immature Granulocyte # (Auto) 0.09 K/uL Sodium Level 134 mmol/L Potassium Level 4.4 mmol/L Chloride Level 101 mmol/L Carbon Dioxide Level 26 mmol/L Anion Gap 7.0 mmol/L Blood Urea Nitrogen 25 mg/dl Creatinine 1.40 mg/dl Est Creatinine Clear Calc Drug Dose 38.9 ml/min Estimated GFR () 44.3 Estimated GFR (Non- 38.2 BUN/Creatinine Ratio 17.5 Random Glucose 452 mg/dl Calcium Level 10.4 mg/dl Total Bilirubin 0.4 mg/dl Direct Bilirubin 0.1 mg/dl Aspartate Amino Transf (AST/SGOT) 14 U/L Alanine Aminotransferase (ALT/SGPT) 32 U/L Alkaline Phosphatase 86 U/L Total Creatine Kinase 25 U/L Creatine Kinase MB < 0.5 ng/ml Creatine Kinase MB Ratio Total Protein 6.9 gm/dl Albumin 3.5 gm/dl Lipase 219 U/L Beta-Hydroxybutyric Acid 1.49 mg/dL Bedside D-Dimer > 450 ng/mlFEU Bedside Troponin I < 0.030 ng/ml [id number] Natriuretic Peptide 335 pg/ml Prothrombin Time 10.6 SECONDS Prothromb Time International Ratio 1.0 Activated Partial Thromboplast Time 31.9 SECONDS Partial Thromboplastin Ratio 1.2 Bedside Glucose 411 mg/dl Test 03/05/17 00:26 03/05/17 02:09 03/05/17 04:44 03/05/17 06:26 Bedside Glucose 312 mg/dl 144 mg/dl Total Creatine Kinase 15 U/L Creatine Kinase MB < 0.5 ng/ml Creatine Kinase MB Ratio Troponin I < 0.015 ng/ml Assessment and Plan 71-year-old female with history of diabetes and coronary disease presents with atypical chest pain increased belching and dysphagia, medical noncompliance resulting in elevated blood glucose and poor diabetic control, improved pain but nausea and vomiting Coronary disease low-dose aspirin continuing with Coreg once a day, isosorbide mononitrate, hypertensive control lisinopril and Cozaar echocardiogram negative serial cardiac enzymes and Cardiology consult does not feel acs Continue statin noting high dose This patient complains of "heartburn",unable to tolerate anesthesia due to vomiting, proceed to medical management with bid ppi and carafate for one week , if not improved consider outpt egd, control symptoms of nausea, initial eval had negative LFT and lipase Poorly controlled diabetes, improved on Lantus and insulin sliding scale continue her Januvia still holding metformin and glipizide For depression citalopram and duloxetine, anxiety regarding her health is a significant contributor DVT prevention is heparin therapy Patient is a full code
[2017-03-05] MEDS: LACTULOSE SYRUP 10 GM/15 ML BTL 473 ML PO SCH (08:17)
[2017-03-05] MEDS: BACLOFEN 10 MG TAB PO SCH ×3 (08:18→20:51)
[2017-03-05] MEDS: ROSUVASTATIN CALCIUM 20 MG TAB PO SCH (08:18)
[2017-03-05] MEDS: DULOXETINE (CYMBALTA) 30 MG CAP PO SCH (08:19)
[2017-03-05] MEDS: LISINOPRIL 10 MG TAB PO SCH (08:19)
[2017-03-05] MEDS: ASPIRIN 81 MG ECTAB PO SCH (08:19)
[2017-03-05] MEDS: ISOSORBIDE MONONITRATE 60 MG TABCR PO SCH (08:20)
[2017-03-05] MEDS: LOSARTAN POTASSIUM 50 MG TAB PO SCH (08:20)
[2017-03-05] MEDS: CITALOPRAM 20 MG TAB PO SCH (08:21)
[2017-03-05] MEDS: SITAGLIPTIN 100 MG TAB PO SCH (08:21)
[2017-03-05] MEDS: OMEGA-3 (PURIFIED FISH OIL) 1 GM CAP PO SCH (08:21)
[2017-03-05] MEDS: MoRPHine SULFATE 4 MG/ML 1 ML CARP\\VIAL IV PRN (08:23)
[2017-03-05] MEDS: HEPARIN SOD 5000 UNIT/0.5 ML CARP SQ SCH ×2 (08:24→20:57)
[2017-03-05] MEDS: FAMOTIDINE IV INJ 20 MG in DEXTROSE 5% 100ML 100 ML IV SCH ×2 (08:28→20:48)
[2017-03-05] MEDS ORDERED: ASPIRIN 325 MG ECTAB PO SCH (09:00)
[2017-03-05] MEDS ORDERED: POLYETHYLENE (MIRALAX) 17 GM PACK PO SCH (09:00)
[2017-03-05] MEDS ORDERED: POLYETHYLENE (MIRALAX) 17 GM PACK PO PRN (09:00)
--- NOTE | 2017-03-05 10:05 | ECHOCARDIOGRAM REPORT ---
*NOTICE TO RECEIVING CONSTITUTION PARTY AGENCY This information is strictly Confidential and protected under [place] law. [place] law prohibits you from making any further disclosure of this information unless further disclosure is expressly permitted by the written consent of the person to whom it pertains or is authorized by law. A general authorization for the release of medical or other information is not sufficient for this purpose. Hospital accepts no responsibility if the information is made available to any other person, INCLUDING THE PATIENT. Interpretation Summary * Name: SHIRA CUNNINGHAM Study Date: 03/05/2017 06:53 AM BP: 104/68 mmHg * Patient Location: C.2T\S\S239\S\2 HR: 55 * : 1945 (M/d/yyyy) Gender: Female Height: 63 in * Age: 71 yrs Ethnicity: [place] Weight: 185 lb * Ordering Physician: Philip Esparza * Referring Physician: Self, Referred * Performed By: Tootie Alva RDCS * * Reason For Study: Chest pain * BSA: 1.9 m2 * -- Conclusions -- * Left ventricular systolic function is normal. * Diastolic dysfunction, Grade II (pseudonormalization pattern). * The right ventricular systolic function is normal as assessed by tricuspid annular plane systolic excursion (TAPSE) (normal >1.5 cm). * There is mild mitral regurgitation. * Right ventricular systolic pressure is normal. Procedure Details * A complete two-dimensional transthoracic echocardiogram was performed (2D, M-mode, Doppler and color flow Doppler). Left Ventricle * The left ventricle is normal in size. * There is normal left ventricular wall thickness. * Ejection Fraction = 50-55%. * Left ventricular systolic function is normal. * Diastolic dysfunction, Grade II (pseudonormalization pattern). Right Ventricle * The right ventricle is grossly normal size. * The right ventricular systolic function is normal as assessed by tricuspid annular plane systolic excursion (TAPSE) (normal >1.5 cm). Atria * The left atrial size is normal. * Right atrial size is normal. Mitral Valve * The mitral valve anatomy is normal. * There is mild mitral regurgitation. Tricuspid Valve * The tricuspid valve is not well visualized, but is grossly normal. * There is trace tricuspid regurgitation. * Right ventricular systolic pressure is normal. Aortic Valve * The aortic valve is normal in structure and function. * No hemodynamically significant valvular aortic stenosis. * There is no significant aortic regurgitation. Great Vessels * The aortic root is normal size. Pericardium/Pleural * There is no pericardial effusion. MMode 2D Measurements and Calculations IVSd 0.72 cm LVIDd 4.4 cm LVIDs 3.2 cm LVPWd 0.76 cm IVS/LVPW 0.96 FS 28.2 % EDV(Teich) 88.8 ml ESV(Teich) 40.2 ml EF(Teich) 54.8 % EDV(cubed) 86.6 ml ESV(cubed) 32.0 ml EF(cubed) 63.1 % LV mass(C)d 99.9 grams LV mass(C)dI 53.4 grams/m\S\2 SV(Teich) 48.7 ml SI(Teich) 26.0 ml/m\S\2 SV(cubed) 54.6 ml SI(cubed) 29.2 ml/m\S\2 Ao root diam 2.8 cm Ao root area 6.0 cm\S\2 ACS 1.5 cm LA dimension 3.0 cm asc Aorta Diam 2.8 cm LA/Ao 1.1 LVAd ap4 15.2 cm\S\2 LVLd ap4 6.4 cm EDV(MOD-sp4) 29.3 ml EDV(sp4-el) 30.5 ml LVAs ap4 9.7 cm\S\2 LVLs ap4 5.7 cm ESV(MOD-sp4) 13.8 ml ESV(sp4-el) 14.0 ml EF(MOD-sp4) 52.9 % EF(sp4-el) 54.1 % LVAd ap2 15.1 cm\S\2 LVLd ap2 6.0 cm EDV(MOD-sp2) 32.0 ml EDV(sp2-el) 32.3 ml LVAs ap2 9.1 cm\S\2 LVLs ap2 5.1 cm ESV(MOD-sp2) 14.9 ml ESV(sp2-el) 13.7 ml EF(MOD-sp2) 53.5 % EF(sp2-el) 57.6 % LVLd %diff -6.59 % EDV(MOD-bp) 31.6 ml LVLs %diff -11.40 % ESV(MOD-bp) 14.8 ml EF(MOD-bp) 53.2 % SV(MOD-sp4) 15.5 ml SI(MOD-sp4) 8.3 ml/m\S\2 SV(MOD-sp2) 17.2 ml SI(MOD-sp2) 9.2 ml/m\S\2 SV(MOD-bp) 16.8 ml SI(MOD-bp) 9.0 ml/m\S\2 SV(sp4-el) 16.5 ml SI(sp4-el) 8.8 ml/m\S\2 SV(sp2-el) 18.6 ml SI(sp2-el) 10.0 ml/m\S\2 Doppler Measurements and Calculations MV E max maria de jesus 81.4 cm/sec MV A max maria de jesus 68.1 cm/sec MV E/A 1.2 MV dec time 0.20 sec Ao V2 max 129.0 cm/sec Ao max PG 6.7 mmHg Ao max PG (full) 4.2 mmHg LV V1 max PG 2.5 mmHg LV V1 max 78.5 cm/sec PA V2 max 67.2 cm/sec PA max PG 1.8 mmHg PA acc slope 305.9 cm/sec\S\2 PA acc time 0.12 sec PI end-d maria de jesus 79.4 cm/sec TR max maria de jesus 194.9 cm/sec PA pr(Accel) 26.7 mmHg
--- NOTE | 2017-03-05 10:29 | Cardiology Consultation ---
Cardiology Consultation Date of Consultation: Mar 05, 2017. Requesting Physician: Vilma Reason for Consultation: Chest pain History of Present Illness Patient is a 71-year-old woman with a history of coronary artery disease who presented to [facility] with symptoms of chest discomfort. Patient has been having symptoms of shooting and sharp chest pains across the upper precordium into the left arm for some time. This has become more intense and more frequent over the past 2 months. The episodes themselves tend to be not exertional in our rarely associated with movement of the left arm. With movement of the left arm she also has similar pains which should across the left portion of her chest. She has been tender in the precordium in this area as well. Further history suggests that the patient has had symptoms of this nature for an extended period time well over a year. He states that the symptoms are similar in character to those evaluated with stress testing nearly 1 year ago. Additionally the patient has been having episodes of indigestion. He states that the symptoms involve a burning and pressure sensation in the precordium and epigastric area. There often relieved with Tums. They do not occur with exertion. Patient had an extended episode of indigestion 2 nights ago which lasted for several hours. In addition to the discomfort in the epigastric and precordial area she has reported some symptoms of dysphagia. She has not been eating much recently and has limited herself to soft and liquid foods. Overall the patient is a very sedentary individual. She has great difficulty with activities due to generalized weakness and fatigue. She states she cannot stand for more than 10 minutes at a time due to weakness. She has rare episodes of dizziness. She does have the dyspnea on occasion. This is not appear to occur at rest. She has no symptoms of orthopnea or paroxysmal nocturnal dyspnea. Past Medical/Surgical History Coronary artery disease: NSTEMI November 2015. PCI to the mid and distal RCA. Unstable angina January 2006. Resulted in PCI to the mid LAD and left circumflex. Recurrent symptoms August 2006 resulted in PCI to the proximal right coronary. Diabetes mellitus Hyperlipidemia Hypertension Migraine headaches Vitamin-D deficiency Surgical history Cholecystectomy Back surgery Right knee surgery Total abdominal hysterectomy Family History Diabetes mellitus Hypertension Family history significant for premature coronary disease Social History Smoking Status: Former Smoker History of Alcohol Use: No Currently lives alone with family members in the area. 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 She did not endorse symptoms of significant vomiting or nausea. She denies any sense of palpitations or racing heartbeats recently All Other Systems: Reviewed and Negative Allergies Coded Allergies: Sulfa Antibiotics (Verified Allergy, Intermediate, HIVES, 01/21/17) Cephalexin (Verified Allergy, Unknown, RASH ITCHING, 03/04/17) Cephalosporins (Verified Allergy, Unknown, RASH ITCHING, 03/04/17) Medications Current Inpatient Medications Medications (Trade) Dose Ordered Sig/Jett Route Start Time Stop Time Status Last Admin Dose Admin Ioversol (Optiray 320) 100 ml UD PRN IV 03/04/17 19:30 03/08/17 19:29 Baclofen (Lioresal Tab) 10 mg TID PO 03/04/17 21:00 04/03/17 20:59 03/05/17 08:18 10 MG Carvedilol (Coreg Tab) 3.125 mg QPM PO 03/04/17 21:00 04/03/17 20:59 03/04/17 22:27 3.125 MG Citalopram Hydrobromide (celeXA TAB) 20 mg QAM PO 03/05/17 09:00 04/04/17 08:59 03/05/17 08:21 20 MG Duloxetine HCl (Cymbalta Cap) 30 mg DAILY PO 03/05/17 09:00 04/04/17 08:59 03/05/17 08:19 30 MG Fish Oil ([place]-3 (Purified Fish Oil) Cap) 1 gm QAM PO 03/05/17 09:00 04/04/17 08:59 03/05/17 08:21 1 GM Insulin Glargine (Lantus Solostar Pen) 10 units QPM SQ 03/04/17 21:00 04/03/17 20:59 03/04/17 22:33 10 UNITS Isosorbide Mononitrate (Imdur Ext Rel Tab) 60 mg DAILY PO 03/05/17 09:00 04/04/17 08:59 03/05/17 08:20 60 MG Lisinopril (Zestril Tab) 10 mg DAILY PO 03/05/17 09:00 04/04/17 08:59 03/05/17 08:19 10 MG Lorazepam (Ativan Tab) 0.5 mg QAM PRN PO 03/04/17 20:15 04/03/17 20:14 Losartan Potassium (coZAAR TAB) 50 mg QAM PO 03/05/17 09:00 04/04/17 08:59 03/05/17 08:20 50 MG Sitagliptin Phosphate (Januvia Tab) 100 mg QAM PO 03/05/17 09:00 04/04/17 08:59 03/05/17 08:21 100 MG Miscellaneous Information (Order Awaiting Action) 1 ea QS N/A 03/05/17 00:00 04/04/17 00:00 Insulin Aspart (novoLOG ASPART) SLIDING SCALE PARAMETER ACHS SC 03/04/17 21:00 04/03/17 20:59 03/04/17 22:33 11 UNITS Heparin Sodium (Porcine) (Heparin Sq 5000 Unit/0.5ml) 5,000 unit Q12 SQ 03/04/17 21:00 04/03/17 20:59 03/05/17 08:24 5,000 UNIT Acetaminophen (Tylenol Tab) 650 mg Q4H PRN PO 03/04/17 20:15 04/03/17 20:14 Al Hydrox/Mg Hydrox/Simethicone (Maalox Max Susp) 15 ml Q4H PRN PO 03/04/17 20:15 04/03/17 20:14 03/04/17 22:27 15 ML Magnesium Hydroxide (Milk Of Magnesia Susp) 30 ml Q12H PRN PO 03/04/17 20:15 04/03/17 20:14 Ondansetron HCl (Zofran Inj) 4 mg Q6H PRN IV 03/04/17 20:15 04/03/17 20:14 03/05/17 08:37 4 MG Nitroglycerin (Nitrostat Tab) 0.4 mg UD PRN SL 03/04/17 20:15 04/03/17 20:14 Glucose (Glucose 40% Gel) 15-30 GRAMS 15 GRAMS... UD PRN PO 03/04/17 20:45 04/03/17 20:44 Glucose (Glucose Chew Tab) 4-8 Tablets 4 Tabl... UD PRN PO 03/04/17 20:45 04/03/17 20:44 Dextrose (Dextrose 50% 50ML Syringe) 25-50ML OF 50% DW IV FOR... UD PRN IV 03/04/17 20:45 04/03/17 20:44 Glucagon (Glucagon Inj) 1 mg UD PRN SQ 03/04/17 20:45 04/03/17 20:44 Aspirin (Ecotrin Tab) 81 mg QAM PO 03/05/17 09:00 04/04/17 08:59 03/05/17 08:19 81 MG Polyethylene (Miralax Powder Packet) 17 gm DAILY PRN PO 03/05/17 09:00 04/04/17 08:59 Lactulose (Chronulac Syrup) 10 gm DAILY PO 03/05/17 09:00 04/04/17 08:59 03/05/17 08:17 10 GM Famotidine 20 mg/ Dextrose 102 ml @ 200 mls/hr Q12 IV 03/04/17 22:20 04/03/17 22:19 03/05/17 08:28 200 MLS/HR Morphine Sulfate (MoRPHine SULFATE INJ) 2 mg Q4H PRN IV 03/04/17 20:45 03/18/17 20:44 Morphine Sulfate (MoRPHine SULFATE INJ) 4 mg Q4H PRN IV 03/04/17 20:45 03/18/17 20:44 03/05/17 08:23 4 MG Lorazepam (Ativan Inj) 0.5 mg Q4H PRN IV 03/04/17 20:45 04/03/17 20:44 Lorazepam (Ativan Tab) 0.5 mg Q6 PRN PO 03/04/17 20:45 04/03/17 20:44 Lorazepam 0.5 mg/ Syringe 1 ml @ 1 mls/min Q4H PRN IV 03/04/17 21:00 04/03/17 20:59 Miscellaneous (Iv Fluids Completed) 1 ea PRN PRN N/A 03/04/17 21:15 03/04/18 21:14 Rosuvastatin Calcium (Crestor Tab) 40 mg DAILY PO 03/05/17 09:00 04/04/17 08:59 03/05/17 08:18 40 MG Physical Exam Vital Signs Past 12 Hours Date Time Temp Pulse Resp B/P (MAP) Pulse Ox O2 Delivery O2 Flow Rate FiO2 03/05/17 07:19 36.3 54 19 123/78 (93) 98 Room Air 03/05/17 04:00 Room Air 03/05/17 03:41 36.4 57 19 104/68 (80) 99 Room Air 03/05/17 00:00 Room Air 03/04/17 23:12 36.6 73 19 157/87 (110) 97 Room Air She is alert and oriented x3. Mood affect appear normal although she was tearful at times during the interview. She answered all questions appropriately. HEENT: Sclerae are anicteric. Pupils are equal and reactive to light and accommodation. Extraocular movements were intact. Neuro: Cranial nerves intact Neck: Examination of the submandibular region did not reveal any significant lymphadenopathy. Carotids are palpable bilaterally and free of bruits on auscultation. There was no evidence of jugular venous distention. The thyroid was not enlarged. Lungs: Lungs are clear to auscultation bilaterally. There are no rales wheezes or rhonchi. She has normal respiratory effort without use of accessory muscles. There is normal pulmonary excursion. Cardiac: The rhythm was regular. S1 and S2 were normal. There are no murmurs on examination. The PMI was not markedly displaced on palpation. Chest: Patient did have some marked tenderness along the precordium and the left upper chest area with palpation. Abdomen: The abdomen was soft and nontender. Extremities: Patient has bilateral radial pulses that are equal in intensity. There is no evidence cyanosis or clubbing. There was no evidence of significant peripheral edema bilaterally just trace around the ankles. Skin: There are no rashes noted on examination today. Data Laboratory Results: Last 24 Hours Test 03/04/17 17:30 03/04/17 17:34 03/04/17 20:50 03/04/17 22:19 White Blood Count 9.17 K/uL Red Blood Count 4.46 M/uL Hemoglobin 12.6 g/dL Hematocrit 36.1 % Mean Corpuscular Volume 80.9 fL Mean Corpuscular Hemoglobin 28.3 pg Mean Corpuscular Hemoglobin Concent 34.9 g/dl Platelet Count 263 K/uL Mean Platelet Volume 9.9 fL Neutrophils (%) (Auto) 84.2 % Lymphocytes (%) (Auto) 12.2 % Monocytes (%) (Auto) 2.5 % Eosinophils (%) (Auto) 0.0 % Basophils (%) (Auto) 0.1 % Neutrophils # (Auto) 7.72 K/uL Lymphocytes # (Auto) 1.12 K/uL Monocytes # (Auto) 0.23 K/uL Eosinophils # (Auto) 0.00 K/uL Basophils # (Auto) 0.01 K/uL RDW Standard Deviation 41.5 fL RDW Coefficient of Variation 14.0 % Immature Granulocyte % (Auto) 1.0 % Immature Granulocyte # (Auto) 0.09 K/uL Sodium Level 134 mmol/L Potassium Level 4.4 mmol/L Chloride Level 101 mmol/L Carbon Dioxide Level 26 mmol/L Anion Gap 7.0 mmol/L Blood Urea Nitrogen 25 mg/dl Creatinine 1.40 mg/dl Est Creatinine Clear Calc Drug Dose 38.9 ml/min Estimated GFR () 44.3 Estimated GFR (Non- 38.2 BUN/Creatinine Ratio 17.5 Random Glucose 452 mg/dl Calcium Level 10.4 mg/dl Total Bilirubin 0.4 mg/dl Direct Bilirubin 0.1 mg/dl Aspartate Amino Transf (AST/SGOT) 14 U/L Alanine Aminotransferase (ALT/SGPT) 32 U/L Alkaline Phosphatase 86 U/L Total Creatine Kinase 25 U/L Creatine Kinase MB < 0.5 ng/ml Creatine Kinase MB Ratio Total Protein 6.9 gm/dl Albumin 3.5 gm/dl Lipase 219 U/L Beta-Hydroxybutyric Acid 1.49 mg/dL Bedside D-Dimer > 450 ng/mlFEU Bedside Troponin I < 0.030 ng/ml JM-Emp-[id number]-Type Natriuretic Peptide 335 pg/ml Prothrombin Time 10.6 SECONDS Prothromb Time International Ratio 1.0 Activated Partial Thromboplast Time 31.9 SECONDS Partial Thromboplastin Ratio 1.2 Bedside Glucose 411 mg/dl Test 03/05/17 00:26 03/05/17 02:09 03/05/17 04:44 03/05/17 06:26 Bedside Glucose 312 mg/dl 144 mg/dl Total Creatine Kinase 15 U/L Creatine Kinase MB < 0.5 ng/ml Creatine Kinase MB Ratio Troponin I < 0.015 ng/ml Test 03/05/17 10:14 Imaging: CT PE protocol did not reveal evidence of a pulmonary embolus. There was some concern regarding thickening of the esophagus. EKG: Normal sinus rhythm. Normal EKG without ischemic changes. No change when compared to prior EKGs. Telemetry reviewed: No arrhythmia I reviewed the results of the patient's dobutamine echocardiogram performed 7 months ago. This did not reveal any evidence of ischemia. Assessment & Plan 1. Chest pain: While the patient's symptoms of chest discomfort are certainly concerning especially in the setting of known coronary disease, the character is slightly atypical. There does seem to be a component associated with movement of the left arm. She has struggle with the symptoms for an extended period of time well over a year. The symptoms are not exertional in nature. It seems that she was evaluated for similar symptoms 7 months ago with stress testing. Based on these factors I think that her upper chest symptoms do not represent angina. She also has some symptoms of indigestion which could be concerning for cardiac ischemia. However, she has several other symptoms and objective findings more consistent with esophageal disease. There are no objective signs of cardiac ischemia and despite an extended episode of indigestion 2 nights ago her cardiac biomarkers are normal. At this point I think she should proceed with the planned evaluation of her esophagus. I do not feel that additional stress testing is required at this time. 2. Coronary artery disease: Patient does have an extensive history of coronary artery disease. He has been very stable over the past several years. She does have atypical symptoms and has been evaluated for these symptoms previously. At this point I would recommend continuing her on aggressive secondary prevention to include daily aspirin and high-dose rosuvastatin. Patient will also be continued on her beta-stephani and long-acting nitrate. 3. Preoperative: I think the patient can proceed with the planned EGD without additional cardiac testing. She should be continued on her usual cardiac medications in the nitesh procedural. To include her beta-stephani and aspirin. Standard precautions would be advisable to include avoidance of significant hyper or hypotension, significant tachycardia or blood loss.
[2017-03-05 12:06] LABS: HEMATOCRIT 35.3 % (37-47); MEAN CELL VOLUME 83.1 fL (80-100); MEAN CORPUSCULAR HEMOGLOBIN 27.8 pg (25-34); MEAN CORPUSCULAR HGB CONC 33.4 g/dl (32-36); MEAN PLATELET VOLUME 10.2 fL (7.4-10.4); PLATELET COUNT 226 K/uL (130-400); RED BLOOD COUNT 4.25 M/uL (4.2-5.4); WHITE BLOOD COUNT 8.37 K/uL (4.8-10.8)
[2017-03-05 12:21] LABS: BUN/CREATININE RATIO 22.3 (10-20); CALCIUM 9.2 mg/dl (8.5-10.1); POTASSIUM 3.5 mmol/L (3.5-5.1)
[2017-03-05 12:29] LABS: ESTIMATED AVERAGE GLUCOSE 246 mg/dl; HA1C FLAG Normal (Normal)
[2017-03-05] MEDS ORDERED: PROMETHAZINE HCL INJ 25 MG in SODIUM CHLORIDE 0.9% 50ML 50 ML IV PRN (13:30)
[2017-03-05] MEDS ORDERED: NURSING VERBAL MED ORDER ONE (13:30)
--- NOTE | 2017-03-05 15:37 | Hospitalist Progress Note ---
Hospitalist Progress Note Date of Service Mar 05, 2017. Subjective Pt evaluation today including: conversation w/ patient, physical exam, chart review, lab review, review of studies, review of inpatient medication list Voiding: no voiding problems, no incontinence Patient states she is feeling unwell. +epigastric pain. denies h/o PUD or GERD has been using Tums more frequently with relief in symptoms +N/V Went for EGD this AM but could not be completed due to vomiting Currently NPO. Admits to dysphagia over the last few weeks. Patient denies any fever, chills, sweats, lightheadedness, dizziness, vision changes, CP, palpitations, edema, SOB, wheezing, cough, diarrhea, urinary symptoms, melena, numbness/tingling, weakness, muscle/joint pain, anxiety/ depression, active bleeding, or new skin discoloration/changes. Medications Current Inpatient Medications Medications (Trade) Dose Ordered Sig/Jett Route Start Time Stop Time Status Last Admin Dose Admin Ioversol (Optiray 320) 100 ml UD PRN IV 03/04/17 19:30 03/08/17 19:29 Baclofen (Lioresal Tab) 10 mg TID PO 03/04/17 21:00 04/03/17 20:59 03/05/17 08:18 10 MG Carvedilol (Coreg Tab) 3.125 mg QPM PO 03/04/17 21:00 04/03/17 20:59 03/04/17 22:27 3.125 MG Citalopram Hydrobromide (celeXA TAB) 20 mg QAM PO 03/05/17 09:00 04/04/17 08:59 03/05/17 08:21 20 MG Duloxetine HCl (Cymbalta Cap) 30 mg DAILY PO 03/05/17 09:00 04/04/17 08:59 03/05/17 08:19 30 MG Fish Oil ([place]-3 (Purified Fish Oil) Cap) 1 gm QAM PO 03/05/17 09:00 04/04/17 08:59 03/05/17 08:21 1 GM Insulin Glargine (Lantus Solostar Pen) 10 units QPM SQ 03/04/17 21:00 04/03/17 20:59 03/04/17 22:33 10 UNITS Isosorbide Mononitrate (Imdur Ext Rel Tab) 60 mg DAILY PO 03/05/17 09:00 04/04/17 08:59 03/05/17 08:20 60 MG Lisinopril (Zestril Tab) 10 mg DAILY PO 03/05/17 09:00 04/04/17 08:59 03/05/17 08:19 10 MG Lorazepam (Ativan Tab) 0.5 mg QAM PRN PO 03/04/17 20:15 04/03/17 20:14 Losartan Potassium (coZAAR TAB) 50 mg QAM PO 03/05/17 09:00 04/04/17 08:59 03/05/17 08:20 50 MG Sitagliptin Phosphate (Januvia Tab) 100 mg QAM PO 03/05/17 09:00 04/04/17 08:59 03/05/17 08:21 100 MG Miscellaneous Information (Order Awaiting Action) 1 ea QS N/A 03/05/17 00:00 04/04/17 00:00 Insulin Aspart (novoLOG ASPART) SLIDING SCALE PARAMETER ACHS SC 03/04/17 21:00 04/03/17 20:59 03/04/17 22:33 11 UNITS Heparin Sodium (Porcine) (Heparin Sq 5000 Unit/0.5ml) 5,000 unit Q12 SQ 03/04/17 21:00 04/03/17 20:59 03/05/17 08:24 5,000 UNIT Acetaminophen (Tylenol Tab) 650 mg Q4H PRN PO 03/04/17 20:15 04/03/17 20:14 Al Hydrox/Mg Hydrox/Simethicone (Maalox Max Susp) 15 ml Q4H PRN PO 03/04/17 20:15 04/03/17 20:14 03/04/17 22:27 15 ML Magnesium Hydroxide (Milk Of Magnesia Susp) 30 ml Q12H PRN PO 03/04/17 20:15 04/03/17 20:14 Ondansetron HCl (Zofran Inj) 4 mg Q6H PRN IV 03/04/17 20:15 04/03/17 20:14 03/05/17 08:37 4 MG Nitroglycerin (Nitrostat Tab) 0.4 mg UD PRN SL 03/04/17 20:15 04/03/17 20:14 Glucose (Glucose 40% Gel) 15-30 GRAMS 15 GRAMS... UD PRN PO 03/04/17 20:45 04/03/17 20:44 Glucose (Glucose Chew Tab) 4-8 Tablets 4 Tabl... UD PRN PO 03/04/17 20:45 04/03/17 20:44 Dextrose (Dextrose 50% 50ML Syringe) 25-50ML OF 50% DW IV FOR... UD PRN IV 03/04/17 20:45 04/03/17 20:44 Glucagon (Glucagon Inj) 1 mg UD PRN SQ 03/04/17 20:45 04/03/17 20:44 Aspirin (Ecotrin Tab) 81 mg QAM PO 03/05/17 09:00 04/04/17 08:59 03/05/17 08:19 81 MG Polyethylene (Miralax Powder Packet) 17 gm DAILY PRN PO 03/05/17 09:00 04/04/17 08:59 Lactulose (Chronulac Syrup) 10 gm DAILY PO 03/05/17 09:00 04/04/17 08:59 03/05/17 08:17 10 GM Famotidine 20 mg/ Dextrose 102 ml @ 200 mls/hr Q12 IV 03/04/17 22:20 04/03/17 22:19 03/05/17 08:28 200 MLS/HR Morphine Sulfate (MoRPHine SULFATE INJ) 2 mg Q4H PRN IV 03/04/17 20:45 03/18/17 20:44 Morphine Sulfate (MoRPHine SULFATE INJ) 4 mg Q4H PRN IV 03/04/17 20:45 03/18/17 20:44 03/05/17 08:23 4 MG Lorazepam (Ativan Inj) 0.5 mg Q4H PRN IV 03/04/17 20:45 04/03/17 20:44 Lorazepam (Ativan Tab) 0.5 mg Q6 PRN PO 03/04/17 20:45 04/03/17 20:44 Lorazepam 0.5 mg/ Syringe 1 ml @ 1 mls/min Q4H PRN IV 03/04/17 21:00 04/03/17 20:59 Miscellaneous (Iv Fluids Completed) 1 ea PRN PRN N/A 03/04/17 21:15 03/04/18 21:14 Rosuvastatin Calcium (Crestor Tab) 40 mg DAILY PO 03/05/17 09:00 04/04/17 08:59 03/05/17 08:18 40 MG Promethazine HCl 25 mg/Sodium Chloride 51 ml @ 204 mls/hr Q6H PRN IV 03/05/17 13:30 04/04/17 13:29 Objective Vital Signs Date Time Temp Pulse Resp B/P (MAP) Pulse Ox O2 Delivery O2 Flow Rate FiO2 03/05/17 12:00 Room Air 03/05/17 11:37 36.3 51 19 135/79 (97) 95 Room Air 03/05/17 08:00 Room Air 03/05/17 07:19 36.3 54 19 123/78 (93) 98 Room Air 03/05/17 04:00 Room Air 03/05/17 03:41 36.4 57 19 104/68 (80) 99 Room Air 03/05/17 00:00 Room Air 03/04/17 23:12 36.6 73 19 157/87 (110) 97 Room Air 03/04/17 21:35 36.8 68 20 189/95 (126) 97 Room Air 03/04/17 21:35 36.8 68 20 189/95 97 Room Air 03/04/17 21:30 72 20 138/75 96 Room Air 03/04/17 19:57 72 18 137/82 96 Room Air 03/04/17 18:30 83 03/04/17 18:06 74 18 129/66 94 Room Air 03/04/17 17:24 Room Air 03/04/17 17:17 36.7 86 16 144/80 97 Physical Exam General Appearance: no apparent distress Eyes: normal inspection, PERRL ENT: hearing grossly normal Neck: supple Respiratory/Chest: lungs clear, no respiratory distress, no accessory muscle use Cardiovascular: + bradycardia (rhythm regular ) Abdomen: normal bowel sounds, soft, + tenderness (ttp epigastric region ) Extremities: no pedal edema, no calf tenderness Neurologic/Psychiatric: alert, normal mood/affect, oriented x 3 Skin: normal color, warm/dry, no rash Laboratory Results Last 24 Hours Test 03/04/17 17:30 03/04/17 17:34 03/04/17 20:50 03/04/17 22:19 White Blood Count 9.17 K/uL Red Blood Count 4.46 M/uL Hemoglobin 12.6 g/dL Hematocrit 36.1 % Mean Corpuscular Volume 80.9 fL Mean Corpuscular Hemoglobin 28.3 pg Mean Corpuscular Hemoglobin Concent 34.9 g/dl Platelet Count 263 K/uL Mean Platelet Volume 9.9 fL Neutrophils (%) (Auto) 84.2 % Lymphocytes (%) (Auto) 12.2 % Monocytes (%) (Auto) 2.5 % Eosinophils (%) (Auto) 0.0 % Basophils (%) (Auto) 0.1 % Neutrophils # (Auto) 7.72 K/uL Lymphocytes # (Auto) 1.12 K/uL Monocytes # (Auto) 0.23 K/uL Eosinophils # (Auto) 0.00 K/uL Basophils # (Auto) 0.01 K/uL RDW Standard Deviation 41.5 fL RDW Coefficient of Variation 14.0 % Immature Granulocyte % (Auto) 1.0 % Immature Granulocyte # (Auto) 0.09 K/uL Sodium Level 134 mmol/L Potassium Level 4.4 mmol/L Chloride Level 101 mmol/L Carbon Dioxide Level 26 mmol/L Anion Gap 7.0 mmol/L Blood Urea Nitrogen 25 mg/dl Creatinine 1.40 mg/dl Est Creatinine Clear Calc Drug Dose 38.9 ml/min Estimated GFR () 44.3 Estimated GFR (Non- 38.2 BUN/Creatinine Ratio 17.5 Random Glucose 452 mg/dl Calcium Level 10.4 mg/dl Total Bilirubin 0.4 mg/dl Direct Bilirubin 0.1 mg/dl Aspartate Amino Transf (AST/SGOT) 14 U/L Alanine Aminotransferase (ALT/SGPT) 32 U/L Alkaline Phosphatase 86 U/L Total Creatine Kinase 25 U/L Creatine Kinase MB < 0.5 ng/ml Creatine Kinase MB Ratio Total Protein 6.9 gm/dl Albumin 3.5 gm/dl Lipase 219 U/L Beta-Hydroxybutyric Acid 1.49 mg/dL Bedside D-Dimer > 450 ng/mlFEU Bedside Troponin I < 0.030 ng/ml KB-Cdb-T-Type Natriuretic Peptide 335 pg/ml Prothrombin Time 10.6 SECONDS Prothromb Time International Ratio 1.0 Activated Partial Thromboplast Time 31.9 SECONDS Partial Thromboplastin Ratio 1.2 Bedside Glucose 411 mg/dl Test 03/05/17 00:26 03/05/17 02:09 03/05/17 06:26 03/05/17 11:03 Bedside Glucose 312 mg/dl 144 mg/dl 125 mg/dl Total Creatine Kinase 15 U/L Creatine Kinase MB < 0.5 ng/ml Creatine Kinase MB Ratio Troponin I < 0.015 ng/ml Test 03/05/17 11:19 03/05/17 11:34 03/05/17 11:43 Sodium Level 139 mmol/L Potassium Level 3.5 mmol/L Chloride Level 106 mmol/L Carbon Dioxide Level 28 mmol/L Anion Gap 5.0 mmol/L Blood Urea Nitrogen 22 mg/dl Creatinine 1.00 mg/dl Est Creatinine Clear Calc Drug Dose 54.9 ml/min Estimated GFR () 66.6 Estimated GFR (Non- 57.4 BUN/Creatinine Ratio 22.3 Random Glucose 117 mg/dl Calcium Level 9.2 mg/dl Total Creatine Kinase 18 U/L Creatine Kinase MB < 0.5 ng/ml Creatine Kinase MB Ratio Troponin I < 0.015 ng/ml White Blood Count 8.37 K/uL Red Blood Count 4.25 M/uL Hemoglobin 11.8 g/dL Hematocrit 35.3 % Mean Corpuscular Volume 83.1 fL Mean Corpuscular Hemoglobin 27.8 pg Mean Corpuscular Hemoglobin Concent 33.4 g/dl RDW Standard Deviation 43.7 fL RDW Coefficient of Variation 14.4 % Platelet Count 226 K/uL Mean Platelet Volume 10.2 fL Estimated Average Glucose 246 mg/dl Hemoglobin A1c 10.2 % Assessment and Plan 71-year-old female with history of diabetes and coronary disease presents with atypical chest pain increased belching and dysphagia, medical noncompliance resulting in elevated blood glucose and poor diabetic control ?Esophagitis, dysphagia, N/V: - IV Pepcid - IV Phenergan and Zofran PRN nausea - Elevated d-dimer- CTA- No pulmonary emboli identified. No consolidation to suggest pneumonia. Mild cardiomegaly and moderate coronary artery calcification. No thoracic aortic dissection. Mild distal esophageal wall thickening. This is nonspecific and could be due to underdistention although esophagitis could have this appearance. - Consulted GI, appreciate recommendations -- Planning for EGD- cleared by cardiology CAD, h/o NSTEMI s/p stent placement/HTN: - Admitted to [facility] for cardiac monitoring- no acute events - Cardiac enzymes negative - Continue Coreg 3.125 mg daily, ASA 81 daily, Imdur 60 mg daily, Cozaar 50 mg daily, Crestor 40 mg HS, Lisinopril 10 mg daily - ECHO- * Left ventricular systolic function is normal. * Diastolic dysfunction, Grade II (pseudonormalization pattern). * The right ventricular systolic function is normal as assessed by tricuspid annular plane systolic excursion (TAPSE) (normal >1.5 cm). * There is mild mitral regurgitation. * Right ventricular systolic pressure is normal. - Consulted cardiology, appreciate recommendations T2DM- UNCONTROLLED- ha1c 10.2%: - Hold Metformin and Glipizide - Continue Januvia 100 mg daily - Lantus 10 u QPM - BSG ACHS and sliding insulin scale Depression: Continue Citalopram 20 mg daily, Duloxetine 30 mg daily GI Prophylaxis: IV Pepcid DVT Prophylaxis: Heparin Code Status: LEVEL I, FULL Dispo: From home- no discharge needs anticipated
[2017-03-05] MEDS ORDERED: GI COCKTAIL PO PRN (17:15)
[2017-03-05] MEDS ORDERED: ALUMINUM/MAGNESIUM SUSP 72 ML, LIDOCAINE HCL 2% VISCOUS SOLN 24 ML, BARCODE IDENTIFIER ... PO PRN ×2 (17:45)
[2017-03-05] MEDS: SUCRALFATE 1 GM/10 ML UDC PO SCH (20:49)
[2017-03-05] MEDS: CARVEDILOL 3.125 MG TAB PO SCH (20:50)
[2017-03-05] MEDS: INSULIN GLARGINE SOLOSTAR 100 UNITS/ML 3 ML PEN SQ SCH (20:57)
[2017-03-06] MEDS: MoRPHine SULFATE 4 MG/ML 1 ML CARP\\VIAL IV PRN (02:26)
[2017-03-06 03:17] VITALS: BP 110/72; PULSE 61; TEMP 36.5; O2SAT 94
[2017-03-06 06:17] LABS: CALCIUM 8.6 mg/dl (8.5-10.1); CREATININE 0.96 mg/dl (0.60-1.20); POTASSIUM 3.7 mmol/L (3.5-5.1)
[2017-03-06] MEDS: INSULIN ASPART 100 UNITS/ML 3 ML PEN SC SCH ×4 (07:00→21:18)
[2017-03-06 07:33] VITALS: BP 105/71; PULSE 66; TEMP 37; O2SAT 95
[2017-03-06] MEDS: SUCRALFATE 1 GM/10 ML UDC PO SCH ×4 (07:57→20:53)
[2017-03-06] MEDS: OMEGA-3 (PURIFIED FISH OIL) 1 GM CAP PO SCH (07:58)
[2017-03-06] MEDS: LISINOPRIL 10 MG TAB PO SCH (07:58)
[2017-03-06] MEDS: DULOXETINE (CYMBALTA) 30 MG CAP PO SCH (07:58)
[2017-03-06] MEDS: SITAGLIPTIN 100 MG TAB PO SCH (07:58)
[2017-03-06] MEDS: CITALOPRAM 20 MG TAB PO SCH (07:59)
[2017-03-06] MEDS: ASPIRIN 81 MG ECTAB PO SCH (07:59)
[2017-03-06] MEDS: ROSUVASTATIN CALCIUM 20 MG TAB PO SCH (07:59)
[2017-03-06] MEDS: BACLOFEN 10 MG TAB PO SCH ×3 (07:59→20:54)
[2017-03-06] MEDS: LOSARTAN POTASSIUM 50 MG TAB PO SCH (07:59)
[2017-03-06] MEDS: ISOSORBIDE MONONITRATE 60 MG TABCR PO SCH (07:59)
[2017-03-06] MEDS: HEPARIN SOD 5000 UNIT/0.5 ML CARP SQ SCH ×2 (08:01→21:19)
[2017-03-06] MEDS: FAMOTIDINE IV INJ 20 MG in DEXTROSE 5% 100ML 100 ML IV SCH ×2 (08:09→20:58)
[2017-03-06] MEDS: LACTULOSE SYRUP 10 GM/15 ML BTL 473 ML PO SCH (08:10)
[2017-03-06 11:47] VITALS: BP 95/59; PULSE 69; TEMP 36.7; O2SAT 96
--- NOTE | 2017-03-06 15:36 | Progress Note ---
Subjective Date of Service: Mar 06, 2017. Subjective pt is feeling much better only issue is frontal headache as it sounds like by her description. no further abdominal pain Problem List Medical Problems: (1) Chest wall pain Status: Acute (2) Elevated lipase Status: Acute (3) Ileus Status: Acute (4) Musculoskeletal chest pain Status: Acute (5) Precordial chest pain Status: Acute (6) Precordial chest pain Status: Acute Review of Systems Constitutional: No fever, No chills, No weakness Respiratory: No cough, No shortness of breath, No dyspnea on exertion Cardiac: No chest pain, No edema Abdomen: No pain, No nausea, No vomiting, No diarrhea Musculoskeletal: No joint pain, No muscle pain Psychiatric: No depression symptoms, No anhedonism Objective Vital Signs Date Time Temp Pulse Resp B/P (MAP) Pulse Ox O2 Delivery O2 Flow Rate FiO2 03/06/17 12:00 Room Air 03/06/17 11:47 36.7 69 18 95/59 (71) 96 03/06/17 08:00 Room Air 03/06/17 07:33 37.0 66 18 105/71 (82) 95 03/06/17 03:40 Room Air 03/06/17 03:17 36.5 61 20 110/72 (85) 94 Room Air 03/05/17 23:51 36.4 62 21 116/75 (89) 95 Room Air 03/05/17 23:30 Room Air 03/05/17 20:05 36.8 68 18 105/69 (81) 95 03/05/17 20:00 Room Air 03/05/17 16:00 95 Room Air Laboratory Results Last 24 Hours Test 03/05/17 16:12 03/05/17 20:16 03/06/17 05:37 03/06/17 06:44 Bedside Glucose 155 mg/dl 292 mg/dl 94 mg/dl Sodium Level 141 mmol/L Potassium Level 3.7 mmol/L Chloride Level 106 mmol/L Carbon Dioxide Level 30 mmol/L Anion Gap 5.0 mmol/L Blood Urea Nitrogen 17 mg/dl Creatinine 0.96 mg/dl Est Creatinine Clear Calc Drug Dose 57.2 ml/min Estimated GFR () 69.9 Estimated GFR (Non- 60.3 BUN/Creatinine Ratio 18.0 Random Glucose 90 mg/dl Calcium Level 8.6 mg/dl Test 03/06/17 11:29 Bedside Glucose 155 mg/dl Assessment and Plan 71-year-old female with history of diabetes and coronary disease presents with atypical chest pain increased belching and dysphagia, medical noncompliance resulting in elevated blood glucose and poor diabetic control,chest pain improved,nausea and vomiting resolved. Headache 03/06 Coronary disease low-dose aspirin continuing with Coreg once a day, isosorbide mononitrate, hypertensive control lisinopril and Cozaar echocardiogram negative serial cardiac enzymes and Cardiology consult does not feel acs Continue statin noting high dose patient previous complaints of "heartburn"and the fact she was unable to tolerate anesthesia due to vomiting,we proceeded to medical management, did improve with bid ppi and Carafate for one week , if not improved consider outpt egd, control symptoms of nausea, initial eval had negative LFT and lipase Toradol for headache prn Improving control of diabetes, Lantus and insulin sliding scale continue her Januvia still holding metformin and glipizide For depression seems controlled on citalopram and duloxetine, anxiety regarding her health continues to be a significant contributor DVT prevention is heparin therapy Patient is a full code
[2017-03-06 16:00] VITALS: BP 95/59; PULSE 69; TEMP 36.8; O2SAT 97
[2017-03-06] MEDS ORDERED: KETOROLAC TROMETHAMINE 15 MG/ML VIAL IV. ONE (16:00)
[2017-03-06 19:31] VITALS: BP 89/59; PULSE 81; TEMP 36.8; O2SAT 91
[2017-03-06] MEDS: CARVEDILOL 3.125 MG TAB PO SCH (20:54)
[2017-03-06] MEDS: INSULIN GLARGINE SOLOSTAR 100 UNITS/ML 3 ML PEN SQ SCH (21:19)
[2017-03-06 23:59] VITALS: BP 98/59; PULSE 69; TEMP 36.8; O2SAT 93
[2017-03-07 04:00] VITALS: BP 113/72; PULSE 72; TEMP 36.8; O2SAT 93
[2017-03-07 05:58] LABS: HEMATOCRIT 34.7 % (37-47); MEAN CELL VOLUME 83.4 fL (80-100); MEAN CORPUSCULAR HEMOGLOBIN 27.6 pg (25-34); MEAN CORPUSCULAR HGB CONC 33.1 g/dl (32-36); MEAN PLATELET VOLUME 10.1 fL (7.4-10.4); PLATELET COUNT 181 K/uL (130-400); RED BLOOD COUNT 4.16 M/uL (4.2-5.4); WHITE BLOOD COUNT 5.93 K/uL (4.8-10.8)
[2017-03-07 06:27] LABS: BUN/CREATININE RATIO 16.5 (10-20); CALCIUM 8.4 mg/dl (8.5-10.1); CREATININE 1.3 mg/dl (0.60-1.20); POTASSIUM 4.1 mmol/L (3.5-5.1)
[2017-03-07] MEDS: INSULIN ASPART 100 UNITS/ML 3 ML PEN SC SCH ×3 (07:00→16:15)
[2017-03-07 07:24] VITALS: BP 104/62; PULSE 65; TEMP 36.9; O2SAT 97
[2017-03-07] MEDS: SUCRALFATE 1 GM/10 ML UDC PO SCH ×2 (08:24→13:49)
[2017-03-07] MEDS: FAMOTIDINE IV INJ 20 MG in DEXTROSE 5% 100ML 100 ML IV SCH (08:24)
[2017-03-07] MEDS: CITALOPRAM 20 MG TAB PO SCH (08:24)
[2017-03-07] MEDS: BACLOFEN 10 MG TAB PO SCH ×2 (08:25→13:49)
[2017-03-07] MEDS: LOSARTAN POTASSIUM 50 MG TAB PO SCH (08:25)
[2017-03-07] MEDS: ISOSORBIDE MONONITRATE 60 MG TABCR PO SCH (08:25)
[2017-03-07] MEDS: ASPIRIN 81 MG ECTAB PO SCH (08:25)
[2017-03-07] MEDS: LACTULOSE SYRUP 10 GM/15 ML BTL 473 ML PO SCH (08:26)
[2017-03-07] MEDS: ROSUVASTATIN CALCIUM 20 MG TAB PO SCH (08:26)
[2017-03-07] MEDS: SITAGLIPTIN 100 MG TAB PO SCH (08:27)
[2017-03-07] MEDS: OMEGA-3 (PURIFIED FISH OIL) 1 GM CAP PO SCH (08:27)
[2017-03-07] MEDS: DULOXETINE (CYMBALTA) 30 MG CAP PO SCH (08:28)
[2017-03-07] MEDS: LISINOPRIL 10 MG TAB PO SCH (08:28)
[2017-03-07] MEDS: HEPARIN SOD 5000 UNIT/0.5 ML CARP SQ SCH (08:31)
[2017-03-07] MEDS ORDERED: SOD PHOSPHATE/SOD BIPHOSPHATE ENEMA 132 ML BTL PR STA (09:40)
[2017-03-07] MEDS ORDERED: CRFUDL PO (10:20)
[2017-03-07] MEDS ORDERED: LORA-741 PO (10:20)
[2017-03-07] MEDS ORDERED: PANT40TA PO (10:20)
--- NOTE | 2017-03-07 10:21 | Discharge Instructions ---
Discharge Instructions Date of Service Mar 07, 2017. Admission Reason for Admission: Chest Pain, Diabetes Discharge Discharge Diagnosis / Problem: non cardiac chest pain Discharge Goals Goal(s): Diagnostic testing, Therapeutic intervention Activity Recommendations Activity Limitations: resume your previous activity . Current Hospital Diet Patient's current hospital diet: Diabetes Type 2 Diet, AHA Diet (Heart Healthy) , N/A Discharge Diet Recommended Diet: Regular Diet Pending Studies Studies pending at discharge: no Laboratory Results Hemoglobin A1c Test 03/05/17 11:43 Range/Units Estimated Average Glucose 246 mg/dl Hemoglobin A1c 10.2 H 4.5-5.6 % Medical Emergencies . Who to Call and When: Medical Emergencies: If at any time you feel your situation is an emergency, please call 911 immediately. . Non-Emergent Contact Non-Emergency issues call your: Primary Care Provider (this week) Call Non-Emergent contact if: temperature is above 101, your pain is unusual for you . . "Provider Documentation" section prepared by Philip Esparza. . VTE Core Measure Inpt VTE Proph given/why not?: Unfractionated heparin SQ
[2017-03-07 11:52] VITALS: BP 106/70; PULSE 70; TEMP 37; O2SAT 91
--- NOTE | 2017-03-07 12:21 | Discharge Summary ---
Discharge Summary Date of Service Mar 07, 2017. Discharge Summary Admission Date: Mar 04, 2017 at 20:18 Discharge Date: Mar 07, 2017 Discharge Disposition: Home Principal Diagnosis: noncardiac chest pain suspect dyspepsia Immunizations: Have You Had Influenza Vaccine: Yes Influenza Vaccine Date: Jun 04, 2013 History of Tetanus Vaccine?: Unknown History of Pneumococcal: Unknown History of Hepatitis B Vaccine: Unknown Medication Reconciliation New Medications: Pantoprazole (Protonix) 40 Mg Tab 40 MG PO DAILY, #30 TAB 3 Refills Sucralfate (Sucralfate) 1 Gm/10 Ml Susp 1 GM PO QID, #20 DOSE Continued Medications: Baclofen (Lioresal) 10 Mg Tab 10 MG PO TID, TAB Carvedilol (Coreg) 3.125 Mg Tab 3.125 MG PO QPM, TAB Cholecalciferol (Vitamin D3) 2,000 Unit Cap 1 CAP PO QAM for 90 Days, #90 CAP 3 Refills Chromium Picolinate (Chromium Picolinate) 500 Mcg Cap 1000 MCG PO NOON Citalopram Hydrobromide (Citalopram Hydrobromide) 20 Mg Tab 20 MG PO QAM Duloxetine HCl (Duloxetine HCl) 30 Mg Cap 30 MG PO DAILY, #30 Fenofibrate (Tricor) 160 Mg Tab 160 MG PO NOON, TAB Fish Oil ([place]-3) 1 Ea Cap 1 CAP PO QAM, 0 Refills Glipizide (Glipizide Er) 5 Mg Tab 5 MG PO QAM Insulin Glargine (Lantus Solostar) 100 Unit/Ml Inj 10 UNITS SQ QPM, #6 Isosorbide Mononitrate Ext Rel (Imdur Ext Rel) 60 Mg Ertab 60 MG PO DAILY, #90 Lactulose (Chronulac) 10 Gm/15 Ml Syrp 15 ML PO UD for Constipation Lisinopril (Lisinopril) 10 Mg Tab 10 MG PO DAILY, #90 Lorazepam (Ativan) 0.5 Mg Tab 0.5 MG PO QAM PRN for Anxiety, #10 TAB (This prescription has been renewed) Losartan Potassium (Cozaar) 50 Mg Tab 50 MG PO QAM, TAB Metformin Hcl (Glucophage) 1,000 Mg Tab 1000 MG PO BID, TAB Nitroglycerin (Nitrostat) 0.4 Mg Tab 0.4 MG SL PRN, BTL NEEDED FOR CHEST PAIN: ONE TABLET UNDER THE TONGUE EVERY 5 MINUTES UP TO 3 DOSES. Polyethylene (Miralax) 17 Gm Pow 17 GM PO DAILY, #1 2 Refills take daily for constipation prevention Potassium Gluconate (Potassium Gluconate) 595 Mg Tab 595 MG PO QAM Rosuvastatin Calcium (Rosuvastatin Calcium) 40 Mg Tab 40 MG PO DAILY, #90 Sitagliptin Phosphate (Januvia) 100 Mg Tab 100 MG PO QAM, TAB Discharge Exam Review of Systems: Constitutional: No fever, No chills Respiratory: No cough, No sputum, No shortness of breath, No dyspnea on exertion Cardiovascular: No chest pain, No orthopnea, No edema Abdomen: + pain, + constipation, No nausea, No diarrhea Physical Exam: General Appearance: WD/WN, no apparent distress Neck: supple, no JVD Respiratory/Chest: chest non-tender, lungs clear, normal breath sounds Cardiovascular: regular rate, rhythm, no murmur Abdomen / GI: normal bowel sounds, soft, + tenderness (left lower quadrant consistent with constipation) Hospital Course 71-year-old female with history of diabetes and coronary disease presents with atypical chest pain increased belching and dysphagia, medical noncompliance resulting in elevated blood glucose and poor diabetic control,chest pain improved,nausea and vomiting resolved. Headache 03/06 Coronary disease chest pain not felt to be consistent with cardiac origin. Continue home meds of aspirin, Coreg once a day, isosorbide mononitrate, hypertensive control lisinopril and Cozaar echocardiogram negative serial cardiac enzymes and Cardiology consult does not feel acs Continue statin noting high dose, no further chest discomfort during her hospital stay once her GI medications were maximized patient previous complaints of "heartburn"and the fact she was unable to tolerate anesthesia due to vomiting,we proceeded to medical management, great improvement with bid ppi and Carafate for one week , will discharge home on the same and have her have follow-up with Dr. Pimentel to decide if not improved can consider outpt egd, Toradol resolved headache diabetes, Lantus, Januvia metformin and glipizide reinforced compliance For depression seems controlled on citalopram and duloxetine, anxiety regarding her health continues to be a significant contributor especially since she lives alone Patient is a full code Total Time Spent: Greater than 30 minutes This includes examination of the patient, discharge planning, medication reconciliation, and communication with other providers. Discharge Instructions Please refer to the electronic Patient Visit Report (Discharge Instructions) for additional information.
[2017-03-07 16:30] VITALS: BP 106/70; PULSE 70; TEMP 37; O2SAT 91
== END 2017-03-07 16:45 | disposition home or self-care (01) ==
LOC: C.EDB 17:13 → C.2T 20:18 → ENRESERV 20:45
PROVIDERS: ADMIT Internal Medicine; ATTEND Internal Medicine
DX: R07.2 Precordial pain (principal); R14.2 Eructation; R13.10 Dysphagia, unspecified; E11.9 Type 2 diabetes mellitus without complications; I25.10 Atherosclerotic heart disease of native coronary artery without angina pectoris; Z95.818 Presence of other cardiac implants and grafts; I10 Essential (primary) hypertension; I25.2 Old myocardial infarction; Z85.3 Personal history of malignant neoplasm of breast; Z82.49 Family history of ischemic heart disease and other diseases of the circulatory system; Z87.891 Personal history of nicotine dependence; Z79.84 Long term (current) use of oral hypoglycemic drugs; F32.9 Major depressive disorder, single episode, unspecified; Z79.82 Long term (current) use of aspirin; Z90.49 Acquired absence of other specified parts of digestive tract; Z90.710 Acquired absence of both cervix and uterus; F41.9 Anxiety disorder, unspecified

== ENCOUNTER → 2017-04-30 | Outpatient (CLI) | payer OTHER ==
[~2017-04-30] MED LIST changes: -ATOR-26 PO; +CRFUDL PO; +CYM30 PO; +INSDGIPEN SQ; +ISOS60TA25 PO; +LISI-461 PO; +PANT40TA PO; +ROSU40TA18 PO
[2017-04-30 13:48] LABS: ESTIMATED AVERAGE GLUCOSE 232 mg/dl; HA1C FLAG Normal (Normal)
[2017-04-30 14:27] LABS: ALT/SGPT 23 U/L (12-78); BLOOD UREA NITROGEN 17 mg/dl (7-18); BUN/CREATININE RATIO 16.9 (10-20); CALCIUM 10.1 mg/dl (8.5-10.1); CARBON DIOXIDE 31 mmol/L (21-32); CHLORIDE 101 mmol/L (98-107); GLUCOSE 348 mg/dl (70-99); POTASSIUM 4.9 mmol/L (3.5-5.1); SODIUM 135 mmol/L (136-145)
[2017-04-30 14:33] LABS: ALKALINE PHOSPHATASE 76 U/L (45-117); AST/SGOT 14 U/L (15-37)
[2017-04-30 14:41] LABS: BETA-HYDROXYBUTYRATE 0.86 mg/dL (0.2-2.81)
--- NOTE | 2017-05-10 09:56 | CODING QUERY MEDICAL NECESSITY ---
CQSUPPORTING DIAGNOSIS NEEDED A supporting diagnosis is required for the test/procedure performed on this patient in order for us to be reimbursed by the patient's insurance. Please provide a supporting diagnosis for the following test/procedure listed below next to the test name along with your signature. *If there is no additional diagnosis for this patient that would support the following test/procedure please document that below next to the test/procedure. Test(s)/Procedure(s) that require a supporting diagnosis: DOS 04/30/17 GLYCATED HEMOGLOBIN TEST Provider Signature: Date: Thank you Alison Fonseca Health Information Management Once completed, please kindly fax back to [phone] For questions please call [phone]
== END | disposition home or self-care (01) ==
LOC: C.LABBC 10:15
PROVIDERS: ATTEND Internal Medicine
DX: I10 Essential (primary) hypertension (principal)

== ENCOUNTER → 2017-07-28 | Day surgery (SDC) | payer OTHER ==
[2017-07-27 09:13] VITALS: BMI 33.0
[~2017-07-28] VITALS: Ht 160 cm; Wt 85.0 kg
[~2017-07-28] MED LIST changes: +ACET-1256 PO; +ASPCH81X PO; +ASPI81TA28 PO; -BACL10TA PO; +BUSP-8 PO; +CHOL1000 PO; -CHOL2000 PO; -CHRO1CAP3 PO; -CITA20TA4 PO; +CITA40TA4 PO; -CRFUDL PO; +CRG3125 PO; +CYCL5TAB PO; +CYM/30 PO; +DICL1GEL12 TOP; -FENO160T PO; +GLC5 PO; +IBUP-103 PO; +IMDSR60 PO; +INSDGIPEN SC; -INSDGIPEN SQ; -LACT10SO17 PO; +LACT10SO30 PO; +LIDOCAINE HCL 2% 2 ML VIAL (20MG/ML) ONE; +LINA1CAP2 PO; +LISI10TA PO; -LORA-741 PO; -LOSA50TA6 PO; +METF1000 PO; -MRLP17 PO; -NTRGSL/4 SL; +NTRGSL/4 UT; +ONDANSETRON INJ 2 MG/ML 2 ML VIAL ONE; +PANT1TAB3 PO; -POTA1TAB PO; +PROPOFOL IV EMULSION 10 MG/ML 20 ML VIAL IV ONE; +ROSU40TA PO; -ROSU40TA18 PO; +ROSU40TA19 PO; +SITA1TAB27 PO; +SODIUM CHLORIDE 0.9% 500ML 500 ML IV ONE
[2017-07-28 09:45] VITALS: Ht 160 cm; Wt 85.0 kg
--- NOTE | 2017-07-28 10:16 | Endo History and Physical ---
History & Physical Date of Service: Jul 28, 2017. Chief Complaint: RECTAL BLEEDING CHANGE IN BOWEL HABIT Referring Physician: DR. Beth VASQUEZ History of Present Illness 72 yo CF who presents for colonoscopy secondary to rectal bleeding and change in bowel habits. Past Medical History Diabetes, Arthritis, Gastrointestinal Disorder, Anxiety, Reflux, Cancer, High Cholesterol, Heart Disease, Hypertension, Depression, IA Past Surgical History Hx Cardiac Surgery: Yes (HEART CATH X 3 (3 TOTAL STENTS PLACED)) Hx Internal Defibrillator: No Hx Pacemaker: No Hx Abdominal Surgery: Yes (CY) Hx of Implantable Prosthesis: No Hx Post-Op Nausea and Vomiting: Yes Hx Cancer Surgery: No Hx Thoracic Surgery: No Hx Orthopedic: Yes (RT KNEE SURGERY, LUMBAR DISCECTOMY) Hx Urinary Tract Surgery: No Family History None Social History Smoking Status: Never Smoker Hx Substance Use: No Hx Alcohol Use: Yes (VERY RARELY) Allergies Coded Allergies: Sulfa Antibiotics (Verified Allergy, Intermediate, HIVES, 07/28/17) Cephalexin (Verified Allergy, Unknown, RASH ITCHING, 07/28/17) Cephalosporins (Verified Allergy, Unknown, RASH ITCHING, 07/28/17) Current Medications Reported Home Medications Medications Dose Route/Sig Max Daily Dose Days Date Category Citalopram Hydrobromide (Citalopram) 40 Mg Tab 1 Tab PO QAM 07/27/17 Reported Voltaren 1% Top Gel (Diclofenac Sodium (Topical)) 1 % Gel 1 Appln EXT DIRECTED PRN 07/27/17 Reported Crestor (Rosuvastatin Calcium) 40 Mg Tab 40 Mg PO DAILY AT NOON 07/27/17 Reported Protonix (Pantoprazole) 40 Mg Tab 40 Mg PO QAM 07/27/17 Reported Nitrostat (Nitroglycerin) 0.4 Mg Tab 0.4 Mg UT PRN PRN 07/27/17 Reported Glucophage (Metformin Hcl) 1,000 Mg Tab 1,000 Mg PO BID 07/27/17 Reported Zestril (Lisinopril) 10 Mg Tab 10 Mg PO QAM 07/27/17 Reported Lantus Solostar (Insulin Glargine) 100 Unit/Ml Inj 20 Units SC HS 07/27/17 Reported Lactulose (Lactulose (Encephalopathy)) 10 Gm/15 Ml Camryn 1 Dose PO TID PRN 07/27/17 Reported Januvia (Sitagliptin Phosphate) 100 Mg Tab 100 Mg PO QAM 07/27/17 Reported Isosorbide Mononitrate ER (Isosorbide Mononitrate) 60 Mg Tab 1 Tab PO QAM 07/27/17 Reported Glipizide Er (Glipizide) 5 Mg Tab 1 Tab PO QAM 07/27/17 Reported [place]-3 (Fish Oil) 1 Ea Cap 1 Cap PO QAM 07/27/17 Reported Cymbalta (Duloxetine HCl) 30 Mg Cap 1 Cap PO QAM 07/27/17 Reported Vitamin D3 (Cholecalciferol) 1,000 Unit Tab 1 Tab PO QAM 07/27/17 Reported Coreg (Carvedilol) 3.125 Mg Tab 1 Tab PO BID 07/27/17 Reported Buspirone Hcl 10 Mg Tab 10 Mg PO BID 07/27/17 Reported Aspirin Chewable (Aspirin) 81 Mg Chew 81 Mg PO QAM 07/27/17 Reported Vital Signs Weight (Kilograms): 85.00 Height (Feet): 5 Height (Inches): 3 Date Time Temp Pulse Resp B/P (MAP) Pulse Ox O2 Delivery O2 Flow Rate FiO2 07/28/17 10:00 36.8 67 20 145/75 (98) 96 Room Air Physical Exam General Appearance: WD/WN, no apparent distress Respiratory/Chest: Auscultation: breath sounds normal Cardiovascular: Heart Auscultation: RRR Abdomen: Bowel Sounds: normal Inspection & Palpation: soft, non-distended, no tenderness, guarding & rebound Assessment and Plan Assessment: 72 yo CF who presents for colonoscopy secondary to rectal bleeding and change in bowel habits. Plan: Proceed with colonoscopy.
--- NOTE | 2017-07-28 10:51 | GI REPORT ---
Procedure Date: 07/28/2017 10:03 AM Procedure: Colonoscopy Indications: Rectal bleeding, Change in bowel habits Medicines: Monitored Anesthesia Care Complications: No immediate complications. Estimated Blood Loss: Estimated blood loss: none. Procedure: Pre-Anesthesia Assessment: - Prior to the procedure, a History and Physical was performed, and patient medications and allergies were reviewed. The patient's tolerance of previous anesthesia was also reviewed. The risks and benefits of the procedure and the sedation options and risks were discussed with the patient. All questions were answered, and informed consent was obtained. Prior Anticoagulants: The patient has taken aspirin, last dose was 1 day prior to procedure. ASA Grade Assessment: III - A patient with severe systemic disease. After reviewing the risks and benefits, the patient was deemed in satisfactory condition to undergo the procedure. After I obtained informed consent, the scope was passed under direct vision. Throughout the procedure, the patient's blood pressure, pulse, and oxygen saturations were monitored continuously. The scope was introduced through the anus and advanced to the terminal ileum. The colonoscopy was performed without difficulty. The patient tolerated the procedure well. The quality of the bowel preparation was good. The terminal ileum, ileocecal valve, appendiceal orifice, and rectum were photographed. Findings: The digital rectal exam findings include anal stricture. Pertinent negatives include no palpable rectal lesions. Multiple small-mouthed diverticula were found in the sigmoid colon. Non-bleeding external hemorrhoids were found during perianal exam. The hemorrhoids were small. Impression: - Anal stricture found on digital rectal exam. - Diverticulosis in the sigmoid colon. - Non-bleeding external hemorrhoids. - No specimens collected. Recommendation: - Resume previous diet. - Continue present medications. - No repeat colonoscopy due to age and the absence of advanced adenomas. - Refer to a colo-rectal surgeon at appointment to be scheduled. Christian Gracia DO 07/28/2017 10:50:27 AM This report has been signed electronically. Note Initiated On: 07/28/2017 10:03 AM I attest to the content of the Intraoperative Record and orders documented therein, exceptions below
--- NOTE | 2017-07-28 10:55 | Discharge Instructions ---
Endoscopy Patient Instructions Date / Procedure(s) Performed Jul 28, 2017. Colonoscopy Allergy Information Coded Allergies: Sulfa Antibiotics (Verified Allergy, Intermediate, HIVES, 07/28/17) Cephalexin (Verified Allergy, Unknown, RASH ITCHING, 07/28/17) Cephalosporins (Verified Allergy, Unknown, RASH ITCHING, 07/28/17) Discharge Date / Findings Jul 28, 2017. Diverticulosis Anal stricture Medication Instructions OK to resume all medications today as prescribed Reported Home Medications Medications Dose Route/Sig Max Daily Dose Days Date Category Citalopram Hydrobromide (Citalopram) 40 Mg Tab 1 Tab PO QAM 07/27/17 Reported Voltaren 1% Top Gel (Diclofenac Sodium (Topical)) 1 % Gel 1 Appln EXT DIRECTED PRN 07/27/17 Reported Crestor (Rosuvastatin Calcium) 40 Mg Tab 40 Mg PO DAILY AT NOON 07/27/17 Reported Protonix (Pantoprazole) 40 Mg Tab 40 Mg PO QAM 07/27/17 Reported Nitrostat (Nitroglycerin) 0.4 Mg Tab 0.4 Mg UT PRN PRN 07/27/17 Reported Glucophage (Metformin Hcl) 1,000 Mg Tab 1,000 Mg PO BID 07/27/17 Reported Zestril (Lisinopril) 10 Mg Tab 10 Mg PO QAM 07/27/17 Reported Lantus Solostar (Insulin Glargine) 100 Unit/Ml Inj 20 Units SC HS 07/27/17 Reported Lactulose (Lactulose (Encephalopathy)) 10 Gm/15 Ml Camryn 1 Dose PO TID PRN 07/27/17 Reported Januvia (Sitagliptin Phosphate) 100 Mg Tab 100 Mg PO QAM 07/27/17 Reported Isosorbide Mononitrate ER (Isosorbide Mononitrate) 60 Mg Tab 1 Tab PO QAM 07/27/17 Reported Glipizide Er (Glipizide) 5 Mg Tab 1 Tab PO QAM 07/27/17 Reported [place]-3 (Fish Oil) 1 Ea Cap 1 Cap PO QAM 07/27/17 Reported Cymbalta (Duloxetine HCl) 30 Mg Cap 1 Cap PO QAM 07/27/17 Reported Vitamin D3 (Cholecalciferol) 1,000 Unit Tab 1 Tab PO QAM 07/27/17 Reported Coreg (Carvedilol) 3.125 Mg Tab 1 Tab PO BID 07/27/17 Reported Buspirone Hcl 10 Mg Tab 10 Mg PO BID 07/27/17 Reported Aspirin Chewable (Aspirin) 81 Mg Chew 81 Mg PO QAM 07/27/17 Reported Provider Instructions Activity Restrictions - No exercising or heavy lifting for 24 hours. - Do not drink alcohol the day of the procedure. - Do not drive a car or operate machinery until the day after the procedure. - Do not make any important decisions or sign important papers in 24 hours after the procedure. Following Day: - Return to full activity which may include returning to work/school. Diet Start your diet with liquids and light foods (jello, soup, juice, toast). Then eat your usual diet if not nauseated. Treatment For Common After Affects For mild abdominal pain, bloating, or excessive gas: - Rest - Eat lightly - Lie on right side Consult with Dr. Erickson of [facility] [place] Follow-Up Information Follow-up with DR. Beth VASQUEZ as scheduled Anesthesia Information What You Should Know You have had a procedure that required some medicine to reduce anxiety and discomfort. This treatment is called moderate sedation. After receiving the treatment, you may be sleepy, but you will be able to breathe on your own. The effects of the treatment may last for several hours. Follow these instructions along with Activity/Diet recommendations noted above: * Do NOT do anything where dizziness or clumsiness would be dangerous. * Rest quietly at home today, then you can be up and about tomorrow. * Have a responsible person stay with you the rest of today. * You may have had an I.V. today. If so, you may take the dressing off later today. Recommendations Call your doctor if: * Trouble breathing * Continuous vomiting for more than 24 hours * Temperature above 101 degrees * Severe abdominal pain or bloating * Pain not relieved by pain medicine ordered * There is increased drainage or redness from any incision * A large amount of rectal bleeding greater than 2-3 tablespoons. (If you had a polyp/s removed or have hemorrhoids, a small amount of blood - from the rectum is to be expected.) * You have any unanswered questions or concerns. IN THE EVENT OF A SERIOUS EMERGENCY, GO TO THE NEAREST EMERGENCY ROOM Your discharge instructions were prepared by provider Christian Gracia. Patient Instructions Signature Page Claire Rosas Patient (or Guardian) Signature/Date: I have read and understand the instructions given to me by my caregivers. Caregiver/RN/Doctor Signature/Date: The above-named patient and/or guardian has received patient instructions on this date. + Original Patient Signature Page (only) stays with chart. Please make copy for patient.
--- NOTE | 2017-07-28 11:00 | Anesthesiology Progress Note ---
Anesthesia Post Op Note Date & Time Jul 28, 2017 at 11:00 Vital Signs Pain Intensity: 0 Vital Signs Past 12 Hours Date Time Temp Pulse Resp B/P (MAP) Pulse Ox O2 Delivery O2 Flow Rate FiO2 07/28/17 10:55 76 20 124/71 (88) 97 Room Air 07/28/17 10:00 36.8 67 20 145/75 (98) 96 Room Air Notes Mental Status: alert / awake / arousable, participated in evaluation Pt Amnestic to Procedure: Yes Nausea / Vomiting: adequately controlled Pain: adequately controlled Airway Patency, RR, SpO2: stable & adequate BP & HR: stable & adequate Hydration State: stable & adequate Anesthetic Complications: no major complications apparent
[2017-07-28 11:26] VITALS: BP 151/69; PULSE 68; O2SAT 97
== END | disposition home or self-care (01) ==
LOC: C.GI 09:35
PROVIDERS: ATTEND Internal Medicine
DX: K62.5 Hemorrhage of anus and rectum (principal); R19.4 Change in bowel habit; K62.4 Stenosis of anus and rectum; K57.30 Diverticulosis of large intestine without perforation or abscess without bleeding; K64.9 Unspecified hemorrhoids; E11.9 Type 2 diabetes mellitus without complications; M19.90 Unspecified osteoarthritis, unspecified site; K21.9 Gastro-esophageal reflux disease without esophagitis; F41.9 Anxiety disorder, unspecified; E78.00 Pure hypercholesterolemia, unspecified; I10 Essential (primary) hypertension; I51.9 Heart disease, unspecified; I25.2 Old myocardial infarction; Z95.5 Presence of coronary angioplasty implant and graft; Z90.49 Acquired absence of other specified parts of digestive tract; Z88.2 Allergy status to sulfonamides; Z79.84 Long term (current) use of oral hypoglycemic drugs; Z79.4 Long term (current) use of insulin; Z79.82 Long term (current) use of aspirin; I25.10 Atherosclerotic heart disease of native coronary artery without angina pectoris

== ENCOUNTER → 2017-08-18 | Outpatient (CLI) | payer OTHER ==
[~2017-08-18] MED LIST changes: -LIDOCAINE HCL 2% 2 ML VIAL (20MG/ML) ONE; -ONDANSETRON INJ 2 MG/ML 2 ML VIAL ONE; -PROPOFOL IV EMULSION 10 MG/ML 20 ML VIAL IV ONE; -SODIUM CHLORIDE 0.9% 500ML 500 ML IV ONE
--- NOTE | 2017-08-18 07:47 | DIAGNOSTIC IMAGING REPORT ---
ABDOMEN 2VIEW W/PA CHEST RTN CLINICAL HISTORY: K59.09 Chronic [id number] COMPARISON STUDY: Supine abdomen dated 08/07/2017 FINDINGS: The erect chest reveals no evidence of free air. There is no evidence of focal pulmonary consolidation.] Erect and supine views of the abdomen reveal no abnormally dilated loops of large or small bowel. There are no transition zone to indicate bowel obstruction. A surgical clip is visualized within the right lower quadrant. Pelvic basin calcifications remain stable and likely represent phleboliths. IMPRESSION: No evidence of bowel obstruction. No evidence of free air. Electronically signed by: Edis Childs M.D. 08/18/2017 7:46 AM Dictated Date/Time: 08/18/2017 7:45 AM
== END | disposition home or self-care (01) ==
LOC: C.RAD 07:25
PROVIDERS: ATTEND Physician Assistant
DX: K59.09 Other constipation (principal)

== ENCOUNTER 2017-10-14 15:26 | Emergency (ER) | payer OTHER ==
[~2017-10-14] VITALS: Ht 160 cm; Wt 82.0 kg
[~2017-10-14 15:26] MED LIST changes: -ACET-1256 PO; -ASPI81TA28 PO; -CRG3125 PO; -CYCL5TAB PO; -CYM30 PO; -GLC5 PO; -IBUP-103 PO; -ISOS60TA25 PO; -LINA1CAP2 PO; -LISI10TA PO; -METF-384 PO; -PANT40TA PO; -ROSU40TA19 PO; -SITA1TAB27 PO
[2017-10-14 15:34] VITALS: TEMP 36.9; Ht 160 cm; Wt 82.0 kg
[2017-10-14] MEDS ORDERED: DIAZEPAM INJ 5 MG/ML 2 ML CARP IM STA (15:47)
[2017-10-14] MEDS ORDERED: SITA1TAB27 PO (16:03)
[2017-10-14] MEDS ORDERED: GLC5 PO (16:03)
[2017-10-14] MEDS ORDERED: ROSU40TA28 PO (16:03)
[2017-10-14] MEDS ORDERED: CYM30 PO (16:03)
[2017-10-14] MEDS ORDERED: ISOS60TA25 PO (16:03)
[2017-10-14] MEDS ORDERED: METF-384 PO (16:03)
[2017-10-14] MEDS ORDERED: CRG3125 PO (16:03)
[2017-10-14] MEDS ORDERED: ASPI81TA28 PO (16:07)
[2017-10-14] MEDS ORDERED: ACET-1256 PO (16:09)
[2017-10-14] MEDS ORDERED: IBUP-103 PO (16:09)
--- NOTE | 2017-10-14 16:20 | DIAGNOSTIC IMAGING REPORT ---
CERVICAL SPINE 2 OR 3 VIEWS CLINICAL HISTORY: 72 years-old Female presenting with neck pain/stiffness. TECHNIQUE: Lateral, frontal, open-mouth odontoid views of the cervical spine were obtained. COMPARISON: 02/01/2017. FINDINGS: Slight straightening of normal cervical lordosis likely positional. Vertebral bodies maintain normal height and alignment. Intervertebral disc heights preserved though minimal osteophytosis is evident with small disc osteophyte complexes at C2-4-5 through C7-T1. No radiographic evidence of fracture or subluxation. Normal atlantodental interval. No prevertebral soft tissue swelling. Lateral masses of C1 articulate normally with C2. Lung apices clear. IMPRESSION: No radiographic evidence of acute osseous injury. Mild multilevel degenerative changes. These are similar to prior exam. Electronically signed by: Lalito Mchugh M.D. 10/14/2017 4:18 PM Dictated Date/Time: 10/14/2017 4:17 PM
--- NOTE | 2017-10-14 16:46 | EMERGENCY ROOM VISIT NOTE ---
ED Visit Note First contact with patient: 15:40 Patient was seen by our PA/RATCHET SETTER. I was involved in the patient's care and did evaluate the patient myself. I was involved in the care throughout the ER stay. The patient presents with a week of a stiffness to her neck, primarily on the left side. She woke up with discomfort. On exam, the neck muscles along the posterior left aspect are tender to touch. The pain is worse with movement. Films of the neck do not show fracture or dislocation. The patient appears to have a cervical strain. A soft collar, anti- inflammatories and some mild muscle relaxers should be beneficial.
[2017-10-14] MEDS ORDERED: CYCL5TAB PO (16:52)
--- NOTE | 2017-10-14 16:54 | EMERGENCY ROOM VISIT NOTE ---
ED Visit Note First contact with patient: 15:40 CHIEF COMPLAINT: Neck pain HISTORY OF PRESENT ILLNESS: This 72-year-old female patient presents to the emergency department, ambulatory, complaining of pain in the neck, worse on the left side, which began spontaneously upon awakening approximately 1 week ago. The patient rates the pain as sharp and stiff and 9/10. The patient has taken minimal Advil and Tylenol intermittently for the pain. The patient does not have a history of previous neck problems. The patient does have pain radiating from the neck into the left shoulder and shoulder blade. The pain is not radiating down the arms. The patient denies numbness and tingling. The patient denies chest pain or shortness of breath. There was no head injury and no loss of consciousness. The patient denies headache, blurred vision, abdominal pain, nausea, or vomiting. The patient denies change in personality. The patient denies any chest pain or difficulty breathing. She denies fever or recent illness. REVIEW OF SYSTEMS: A 10 system review of systems was completed with positives and pertinent negatives listed in the HPI. ALLERGIES: Cephalexin, sulfa PMH: Diabetes, heart disease, hyperlipidemia, vitamin D deficiency SOCIAL HISTORY: The patient lives locally with family. She admits to smoking cigarettes. She denies drug or alcohol use. PHYSICAL EXAM: VITALS: Vitals are noted on the nurse's note and reviewed by myself. Vital signs stable. GENERAL: This is a 72-year-old white female, in no acute distress , nondiaphoretic, well-developed well-nourished. SKIN: Capillary reflex less than 2 seconds. HEENT: Normocephalic. PERRLA. EOMI. Nares patent. Mucous membranes moist. Neck is supple without nuchal rigidity. Cervical spine is mildly tender to palpation. The patient moderate tenderness of the paraspinal muscles on the left. There is no lymphadenopathy. MUSCULOSKELETAL: The patient has full range of motion of the bilateral arms. Strength 5/5 of the bilateral upper extremities. The patient has tenderness with any attempts at movement of the neck. NEURO: Patient was alert and oriented to person place and time. Normal sensation to light and sharp touch. No focal neurologic deficits. RADIOLOGY: CERVICAL SPINE 2 OR 3 VIEWS CLINICAL HISTORY: 72 years-old Female presenting with neck pain/stiffness. TECHNIQUE: Lateral, frontal, open-mouth odontoid views of the cervical spine were obtained. COMPARISON: 02/01/2017. FINDINGS: Slight straightening of normal cervical lordosis likely positional. Vertebral bodies maintain normal height and alignment. Intervertebral disc heights preserved though minimal osteophytosis is evident with small disc osteophyte complexes at C2-4-5 through C7-T1. No radiographic evidence of fracture or subluxation. Normal atlantodental interval. No prevertebral soft tissue swelling. Lateral masses of C1 articulate normally with C2. Lung apices clear. IMPRESSION: No radiographic evidence of acute osseous injury. Mild multilevel degenerative changes. These are similar to prior exam. Electronically signed by: Lalito Mchugh M.D. 10/14/2017 4:18 PM Dictated Date/Time: 10/14/2017 4:17 PM EMERGENCY DEPARTMENT COURSE: I examined the patient. She was given 5 mg IM Valium for spasms. She did note mild improvement in her symptoms with this medication. Cervical spine x-rays were ordered and reviewed by myself and radiologist as above. The patient was reassessed and has slightly increased range of motion at this time. I discussed the case with Dr. Mccullough. He is in agreement with the assessment and plan. The patient was given a soft cervical collar for comfort. Discharge instructions reviewed, the patient was discharged home in good condition. Blood Pressure Screening: Patient was found to have a slightly elevated blood pressure due to circumstances. I do not believe that the patient requires hypertension monitoring. I attest that I have personally reviewed the patient's current medication list. Differential diagnosis includes cervicalgia, meningitis, abscess, epidural abscess, torticollis, acute coronary syndrome, upper respiratory infection, lymphadenopathy, malignancy, and others DIAGNOSIS: Cervicalgia Problem List Medical Problems: (1) Diabetes Status: Chronic (2) Heart disease Status: Chronic (3) HTN (hypertension) Status: Chronic (4) RI (myocardial infarction) Status: Resolved Current/Historical Medications Scheduled Aspirin (Aspirin Ec), 81 MG PO QAM Buspirone Hcl (Buspirone Hcl), 10 MG PO BID Carvedilol (Carvedilol), 3.125 MG PO BID Cholecalciferol (Vitamin D3), 1,000 INTER.UNIT PO QAM Duloxetine HCl (Duloxetine HCl), 30 MG PO QAM Fish Oil ([place]-3), 1 CAP PO QAM Glipizide (Glipizide), 5 MG PO QAM Insulin Glargine (Lantus Solostar), 20 UNITS SC HS Isosorbide Mononitrate Ext Rel (Imdur Ext Rel), 60 MG PO QAM Metformin Hcl (Glucophage), 1,000 MG PO BID Rosuvastatin Calcium (Rosuvastatin Calcium), 40 MG PO QD@1200 Sitagliptin (Januvia), 100 MG PO QAM Scheduled PRN Acetaminophen (Tylenol), 1,000 MG PO Q6H PRN for Pain Cyclobenzaprine Hcl (Flexeril), 5-10 MG PO TID PRN for Muscle Spasms Diclofenac Sodium (Topical) (Voltaren 1% Top Gel), 1 APPLN TOP UD PRN for Joint Pain Ibuprofen Tab (Advil), 400-600 MG PO Q6H PRN for Pain Lactulose (Encephalopathy) (Lactulose), 1 DOSE PO TID PRN for Constipation Nitroglycerin (Nitrostat), 0.4 MG UT UD PRN for Chest Pain Allergies Coded Allergies: Sulfa Antibiotics (Verified Allergy, Intermediate, HIVES, 07/28/17) Cephalexin (Verified Allergy, Unknown, RASH ITCHING, 07/28/17) Cephalosporins (Verified Allergy, Unknown, RASH ITCHING, 07/28/17) Vital Signs Date Time Temp Pulse Resp B/P (MAP) Pulse Ox O2 Delivery O2 Flow Rate FiO2 10/14/17 17:05 103 20 176/101 97 10/14/17 15:34 36.9 88 20 180/110 97 Room Air Medications Administered Medications (Trade) Dose Ordered Sig/Jett Route Start Time Stop Time Status Last Admin Dose Admin Diazepam (Valium Inj) 5 mg NOW STAT IM 10/14/17 15:47 10/14/17 15:50 DC 10/14/17 16:02 5 MG Departure Information Impression Primary Impression: Cervicalgia Dispostion Home / Self-Care Condition GOOD Prescriptions Cyclobenzaprine Hcl (FLEXERIL) 5 Mg Tab 5-10 MG PO TID Y for Muscle Spasms, #15 TAB PRN Prov: Marisabel Pérez PA-C 10/14/17 Referrals Lalito Pimentel M.D. (PCP) Patient Instructions ED Neck Back Pain General, [facility] Additional Instructions You have been treated in the Emergency Department for Neck Pain. You have received pain medicine in the emergency department which impairs your ability to operate a vehicle. It is illegal for you to drive after receiving these medicines. You have been prescribed Flexeril (cyclobenzaprine) 1-2 tabs orally, three times per day. Do NOT exceed 30 mg (6 tabs) per day. Take your first dose at bedtime as it can make you drowsy. Always take all medications as prescribed. Monitor for seizures or other abnormal reactions, as this medication in combination with your SSRI can potentially increase the risk of serotonin syndrome. For pain control, you can use the following [id number]-[id number] medicines (if >12 yo): Ibuprofen(Motrin, Advil) may be used for fever or pain. Use 600mg every six hours as needed. Take with food. Avoid using more than 2400mg in a 24 hour period. Do not use 2400mg per day for more than three consecutive days without physician direction. Prolonged inappropriate use can lead to stomach upset or ulcers. This medication may help with swelling and pain, however, with your history of diabetes and HTN, I would not take the medication consistently. (AND/OR) Acetaminophen(Tylenol) may be used for fever or pain. Use 1000mg every six hours as needed. Avoid using more than 3000mg in a 24 hour period. If this is an acute injury, ice can be applied to the area of pain for the first 3 days to help decrease pain and inflammation. After the first 3 days, a heating pad can be used over the area for continued soothing relief. You should schedule a follow-up appointment in 2-3 days with your Primary Care Provider for further evaluation and treatment of your neck pain. Return to the Emergency Department if your current symptoms worsen despite treatment course outlined above, or if you develop any of the following symptoms : intractable pain despite aforementioned treatment course, facial droop, slurred speech, unilateral weakness, or worsening of her current symptoms.
[2017-10-14 17:05] VITALS: BP 176/101; PULSE 103; O2SAT 97
== END 2017-10-14 17:14 | disposition home or self-care (01) ==
LOC: C.EDB 15:28 → C.EDD 17:14
DX: M54.2 Cervicalgia (principal); I10 Essential (primary) hypertension; I51.9 Heart disease, unspecified; E11.9 Type 2 diabetes mellitus without complications; I25.2 Old myocardial infarction; Z88.2 Allergy status to sulfonamides; Z79.4 Long term (current) use of insulin; Z79.82 Long term (current) use of aspirin; Z79.899 Other long term (current) drug therapy

== ENCOUNTER → 2018-03-08 | Outpatient (CLI) | payer OTHER ==
[~2018-03-08] MED LIST changes: +ACET-1256 PO; -ASPCH81X PO; +ASPI81TA28 PO; -CARV3.12 PO; -CITA40TA4 PO; +CRG3125 PO; -CYM/30 PO; +CYM30 PO; +GLC5 PO; -GLIP-197 PO; +IBUP-103 PO; -IMDSR60 PO; +ISOS60TA25 PO; +LINA1CAP2 PO; -LISI-461 PO; +LISI10TA PO; +METF-384 PO; -METF1000 PO; -PANT1TAB3 PO; +PANT40TA PO; -ROSU40TA PO; +ROSU40TA19 PO; -SITA100T3 PO; +SITA1TAB27 PO
[2018-03-08 17:14] LABS: BASO % 1.2 %; BASO ABS # 0.07 K/uL (0-0.2); EOS % 2.4 %; EOS ABS # 0.14 K/uL (0-0.5); HEMATOCRIT 40.7 % (37-47); HEMOGLOBIN 13.8 g/dL (12.0-16.0); IG# 0.01 K/uL (0.00-0.02); LYMPH % 35.3 %; LYMPH ABS # 2.08 K/uL (1.2-3.4); MEAN CELL VOLUME 82.7 fL (80-100); MEAN CORPUSCULAR HGB CONC 33.9 g/dl (32-36); MONO % 5.8 %; MONO ABS # 0.34 K/uL (0.11-0.59); NEUT % 55.1 %; NEUT ABS # 3.25 K/uL (1.4-6.5); PLATELET COUNT 226 K/uL (130-400); RED CELL DISTRIBUTION WIDTH CV 13.9 % (11.5-14.5); RED CELL DISTRIBUTION WIDTH SD 41.6 fL (36.4-46.3); WHITE BLOOD COUNT 5.89 K/uL (4.8-10.8)
[2018-03-08 17:52] LABS: ALBUMIN 3.8 gm/dl (3.4-5.0); ALKALINE PHOSPHATASE 97 U/L (45-117); ALT/SGPT 27 U/L (12-78); AST/SGOT 19 U/L (15-37); BLOOD UREA NITROGEN 12 mg/dl (7-18); CARBON DIOXIDE 28 mmol/L (21-32); CHOLESTEROL 203 mg/dl (0-200); CREATININE 1.02 mg/dl (0.60-1.20); GLUCOSE 301 mg/dl (70-99); LDL CHOLESTEROL CALCULATED 109 mg/dl; SODIUM 135 mmol/L (136-145); TOTAL PROTEIN 7.7 gm/dl (6.4-8.2)
[2018-03-09 05:55] LABS: HEMOGLOBIN A1C 13.8 % (4.5-5.6)
== END | disposition home or self-care (01) ==
LOC: C.LABBC 13:48
PROVIDERS: ATTEND Internal Medicine
DX: I10 Essential (primary) hypertension (principal); E78.5 Hyperlipidemia, unspecified; E11.9 Type 2 diabetes mellitus without complications; I25.10 Atherosclerotic heart disease of native coronary artery without angina pectoris

== ENCOUNTER 2019-08-09 19:07 | Inpatient (IN) ==
[2019-08-09] MEDS ORDERED: GI COCKTAIL ED USE PO ONE (19:22)
[2019-08-09] MEDS ORDERED: SODIUM CHLORIDE 0.9% 500 ML IV SCH (19:30)
--- NOTE | 2019-08-09 19:45 | Emergency Department Note ---
Entered by Shahram Valdes acting as a scribe for History of Present Illness General Chief complaint: Chest Pain Stated complaint: CHEST PAIN Time Seen by Provider: 08/09/19 19:17 Source: patient History of Present Illness Onset (ago): hour(s) 3 Location: chest Pain Consistency: + constant Quality: + sharp Relieved By: + other (vomiting) Exacerbated By: + other (deep breathing) Associated symptoms: + denies other symptoms (choking, drooling, pain or swelling in her legs, left arm pain) and + nausea/vomiting The patient is a 74 y/o female who presents to the ED w/ CC of constant, sharp, chest pain beginning 3 hours ago. The patient states she just sat down and took a bite of stuffing. She reports shortly after this, her symptoms started. The patient notes she was able to swallow it and denies choking and drooling. She states she became nauseated, went to the restroom and vomited, and then felt slightly better. The patient reports her symptoms were an 8/10 when they started. She notes she was given three doses of nitroglycerin and a baby aspirin by EMS. The patient states she currently rates her discomfort a 5/10 in severity. She reports her toes are slightly numb, and her chest pain worsens with deep breathing. The patient notes a history of three MIs with three CABGs 12 years ago within 8 months. She states this does not feel similar to her MIs because her pain is not radiating down her left arm. The patient reports an additional history of HTN, esophagitis, GERD, and DM. 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 Pimentel is her PCP. The patient denies pain or swelling in her legs and a history of blood clots and lung problems. Home Medications Home Medications Medication Instructions Recorded Confirmed Type nitroglycerin [Nitrostat] 0.4 mg SUBLINGUAL UD PRN #0 btl 07/27/17 08/09/19 History omega 1-dwa-jyb-fish oil [Fish Oil] 1,000 mg PO QAM #0 cap 07/27/17 08/09/19 History aspirin [Aspir-81] 81 mg PO DAILY #0 10/14/17 08/09/19 History acetaminophen [Acetaminophen Extra 1,000 mg PO Q8 PRN #0 tab 08/29/18 08/09/19 Rx Strength] pen needle, diabetic [BD #90 ea 08/29/18 08/09/19 Rx Ultra-Fine [place] Pen Needle] buspirone 10 mg tablet 10 mg PO TID #90 tab 01/25/19 08/09/19 Rx insulin aspart U-100 100 unit/mL 5 units SC AC #0 ml 02/22/19 08/09/19 Rx (3 mL) subcutaneous pen diclofenac sodium 1 % topical gel 2 gm TOP QID #300 gm 02/23/19 08/09/19 Rx ranitidine HCl 150 mg tablet 150 mg PO BID #180 tab 03/31/19 08/09/19 Rx cholecalciferol (vitamin D3) 25 1,000 units PO DAILY #0 tab 04/05/19 08/09/19 History mcg (1,000 unit) capsule linaclotide 145 mcg capsule 145 mcg PO QAM cap 04/05/19 08/09/19 History insulin degludec 100 unit/mL (3 15 units SQ .COMPLEX #15 ml 04/10/19 08/09/19 Rx mL) subcutaneous pen rosuvastatin 40 mg tablet 40 mg PO DAILY 04/28/19 08/09/19 History blood sugar diagnostic #100 ea 05/04/19 08/09/19 Rx metformin 1,000 mg tablet 1,000 mg PO BID #60 tab 05/08/19 08/09/19 Rx carvedilol 3.125 mg tablet 3.125 mg PO BID #180 tab 05/26/19 08/09/19 Rx lisinopril 10 mg tablet See Rx Instructions .ROUTE 06/27/19 08/09/19 Rx .COMPLEX #90 tablet duloxetine 30 mg capsule,delayed 30 mg PO QAM #30 cap 07/20/19 08/09/19 Rx release pantoprazole 40 mg tablet,delayed 40 mg PO DAILY #90 tab 08/07/19 08/09/19 Rx release Allergies Allergy/AdvReac Type Severity Reaction Status Date / Time cephalexin Allergy Intermediate Rash and Verified 08/09/19 21:24 itchiness Cephalosporins Allergy Intermediate Rash and Verified 08/09/19 21:24 itchiness Sulfa (Sulfonamide Allergy Intermediate Hives Verified 08/09/19 21:24 Antibiotics) Past Med/Surg History Medical History Anal stricture (Acute) Anxiety (Chronic) Anxiety disorder (Acute) ASCVD (arteriosclerotic cardiovascular disease) (Chronic) Cancer Cervical pain (neck) (Acute) Chronic constipation (Acute) Chronic pain syndrome (Chronic) Cognitive dysfunction (Acute) Constipation (Acute) Daytime somnolence (Acute) Degenerative joint disease involving multiple joints (Acute) Depression (Acute) Diabetes mellitus, type 2 Diabetic gastroparesis (Chronic) Diabetic neuropathy (Acute) Diabetic peripheral neuropathy (Acute) DJD (degenerative joint disease) of knee (Acute) Early satiety (Acute) GERD without esophagitis (Acute) HTN (hypertension) (Chronic) Hyperlipidemia (Chronic) IBS (irritable bowel syndrome) (Chronic) Impaired sensation (Acute) Lumbar spondylosis (Acute) [place] (myocardial infarction) Migraine headache (Acute) Myocardial Infarction HX OF CATH 2012 [facility] [place] FOLLOWS WITH DR. JULES Osteoarthritis Trapezius muscle spasm (Acute) Uncontrolled type 2 diabetes mellitus with neurologic complication, with long- term current use of insulin (Chronic) Vitamin D deficiency (Acute) Surgical History Fusion of spine LUMBAR History of cardiac cath History of cataract surgery Left cataract 03/09/18. 2mg versed. 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 and A total of 10 systems reviewed and were otherwise negative Physical Exam Vital Signs Vital Signs - 24 hr 08/09/19 19:20 08/09/19 21:15 Temperature 37 C Temperature Source Oral Pulse Rate 98 H Pulse Rate [Bilateral Finger] 85 Pulse Rhythm [Bilateral Finger] Regular Respiratory Rate 20 20 Respiratory Effort / Characteristics Non-Labored Spontaneous Respiratory Depth Normal Normal Respiratory Pattern Regular Blood Pressure 140/81 Blood Pressure [Right Arm] 172/91 H Blood Pressure Mean 100 Blood Pressure Mean [Right Arm] 118 Blood Pressure Position Lying Pulse Oximetry 97 98 Oxygen Delivery Method Room Air Room Air Sepsis Recent Fever Within 48 Hours No Sepsis Action Taken by Nursing No Action Required General: Non-ill appearing older female belching frequently. HEENT: Normal cephalic atraumatic. Pupils are equal round and reactive to light. Extraocular movements are intact. Oropharynx is pink with moist mucous membranes. No swelling of the mouth lips or tongue. Neck: Supple with a midline trachea. No meningeal signs or stiffness, no JVD or bruits. No Stridor. Chest: Clear to auscultation bilaterally. No wheezes or rhonchi. No increased work of breathing. Heart: regular rate and rhythm. Abdomen: Soft nontender, nondistended without rebound guarding or rigidity. Extremities: No cyanosis clubbing or edema. No calf tenderness or asymmetry Spine/Back. Non tender to palpation. No CVA tenderness Skin: Good turgor without rashes. Neurologic exam: Cranial nerves two through 12 are intact. Motor and sensation are intact and symmetrical throughout. Course Course 1917: The patient was evaluated in room C06. A complete history and physical exam was performed. 1942: The patient is attempting to drink the GI cocktail, but she states it hurts to swallow. 2026: The patient states she is feeling better. Her chest pain is intermittent. She notes she stopped taking her DM mediation because she was not feeling well. I gave her IV insulin and ordered a CT of the abdomen and chest. 2033: I reviewed the patient's case with Dr. Mulligan, [facility] Hospitalist. He will evaluate the patient for further management. Administered Medications Ioversol (Optiray 320 125ml) 116 ml IV ONCE PRN PRN Reason: Interaction Checking Stop: 08/13/19 21:35 Last Admin: 08/09/19 21:42 Dose: 116 ml Documented by: [id number] Discontinued Medications Al Hydrox/Mg Hydrox/Simethicone () 1 dose PO ONE ONE Stop: 08/09/19 19:23 Last Admin: 08/09/19 19:40 Dose: 1 dose Documented by: [id number] Sodium Chloride (Nss) 500 mls @ 999 mls/hr IV .Q31M LEON Stop: 08/09/19 20:00 Last Infusion: 08/09/19 20:36 Dose: 0 mls/hr Documented by: [id number] Admin: 08/09/19 19:53 Dose: 999 mls/hr Documented by: [id number] Insulin Human Regular (Novolin R U-100 Per Unit) 10 units IV NOW STA Stop: 08/09/19 20:26 Last Admin: 08/09/19 20:34 Dose: 10 units Documented by: [id number] Cosigned by: [id number] Medical Decision Making Differential Diagnosis Differential diagnosis includes: ACS, arrhythmia, GERD, electrolyte or metabolic abnormalities, CHF, PE Medical Records Attestation: I reviewed the patient's medical records. Home Medications Current Medication List: was personally reviewed by wi Laboratory Data Attestation: I reviewed the patient's lab results. Result diagrams: 08/09/19 19:42 08/09/19 19:42 Lab Results 08/09/19 08/09/19 08/09/19 Range/Units 19:42 19:42 19:42 WBC 5.58 (4.8-10.8) K/uL RBC 4.65 (4.2-5.4) M/uL Hgb 13.0 (12.0-16.0) g/dL Hct 38.1 (37-47) % MCV 81.9 (80-100) fL MCH 28.0 (25-34) pg MCHC 34.1 (32-36) g/dL RDW Std Deviation 41.0 (36.4-46.3) fL RDW Coeff of Tino 13.6 (11.5-14.5) % Plt Count 228 (130-400) K/uL MPV 9.9 (7.4-10.4) fL Immature Gran % (Auto) 0.5 % Neut % (Auto) 57.0 % Lymph % (Auto) 33.0 % [place] % (Auto) 7.0 % Eos % (Auto) 1.6 % Baso % (Auto) 0.9 % Immature Gran # (Auto) 0.03 H (0.00-0.02) K/uL Neut # (Auto) 3.18 (1.4-6.5) K/uL Lymph # (Auto) 1.84 (1.2-3.4) K/uL [place] # (Auto) 0.39 (0.11-0.59) K/uL Eos # (Auto) 0.09 (0-0.5) K/uL Baso # (Auto) 0.05 (0-0.2) K/uL PT 10.0 (9.0-12.0) Seconds INR 1.0 (0.9-1.1) APTT 22.5 (21.0-31.0) Seconds PTT Ratio 0.8 Sodium 133 L (136-145) mmol/L Potassium 3.8 (3.5-5.1) mmol/L Chloride 101 (98-107) mmol/L Carbon Dioxide 23 (21-32) mmol/L Anion Gap 9.0 (3-11) BUN 17 (7-18) mg/dl Creatinine 1.23 H (0.6-1.2) mg/dl Est Cr Clr Drug Dosing 43.8 ml/min Est GFR ( Amer) 50.7 Est GFR (Non-Af Amer) 43.8 BUN/Creatinine Ratio 13.6 (10-20) Glucose 499 H* (70-99) mg/dl POC Glucose (70-99) Calcium 8.8 (8.5-10.1) mg/dl Total Bilirubin 0.3 (0.2-1) mg/dl AST 18 (15-37) U/L ALT 24 (12-78) U/L Alkaline Phosphatase 105 (45-117) U/L Troponin I < 0.015 (0-0.045) ng/ml Total Protein 6.7 (6.4-8.2) gm/dl Albumin 3.1 L (3.4-5.0) gm/dl Globulin 3.6 (2.5-4.0) gm/dl Albumin/Globulin Ratio 0.9 (0.9-2) Lipase 1159 H (73-393) U/L Beta-Hydroxybutyric Acd (0.2-2.81) mg/dl Specimen Hemolysis 08/09/19 Range/Units 22:45 WBC (4.8-10.8) K/uL RBC (4.2-5.4) M/uL Hgb (12.0-16.0) g/dL Hct (37-47) % MCV (80-100) fL MCH (25-34) pg MCHC (32-36) g/dL RDW Std Deviation (36.4-46.3) fL RDW Coeff of Tino (11.5-14.5) % Plt Count (130-400) K/uL MPV (7.4-10.4) fL Immature Gran % (Auto) % Neut % (Auto) % Lymph % (Auto) % [place] % (Auto) % Eos % (Auto) % Baso % (Auto) % Immature Gran # (Auto) (0.00-0.02) K/uL Neut # (Auto) (1.4-6.5) K/uL Lymph # (Auto) (1.2-3.4) K/uL [place] # (Auto) (0.11-0.59) K/uL Eos # (Auto) (0-0.5) K/uL Baso # (Auto) (0-0.2) K/uL PT (9.0-12.0) Seconds INR (0.9-1.1) APTT (21.0-31.0) Seconds PTT Ratio Sodium (136-145) mmol/L Potassium (3.5-5.1) mmol/L Chloride (98-107) mmol/L Carbon Dioxide (21-32) mmol/L Anion Gap (3-11) BUN (7-18) mg/dl Creatinine (0.6-1.2) mg/dl Est Cr Clr Drug Dosing ml/min Est GFR ( Amer) Est GFR (Non-Af Amer) BUN/Creatinine Ratio (10-20) Glucose (70-99) mg/dl POC Glucose 371 H* (70-99) Calcium (8.5-10.1) mg/dl Total Bilirubin (0.2-1) mg/dl AST (15-37) U/L ALT (12-78) U/L Alkaline Phosphatase (45-117) U/L Troponin I (0-0.045) ng/ml Total Protein (6.4-8.2) gm/dl Albumin (3.4-5.0) gm/dl Globulin (2.5-4.0) gm/dl Albumin/Globulin Ratio (0.9-2) Lipase (73-393) U/L Beta-Hydroxybutyric Acd (0.2-2.81) mg/dl Specimen Hemolysis Imaging Data Radiologist's Impression: Radiology results as stated below per my review and the radiologist's interpretation: XR chest 1V portable CLINICAL HISTORY: Chest pain, nausea and vomiting. COMPARISON STUDY: Chest radiograph October 21, 2018. FINDINGS: Lung volumes are normal. Lungs are clear. There is no pneumothorax or pleural effusion. Cardiac size is normal. Mediastinal contours are normal. There is no evidence for pulmonary edema. IMPRESSION: No acute cardiopulmonary findings. ACT 112: Negative or not required by law. Electronically signed by: Jimmy Chavarria M.D. 08/09/2019 7:47 PM ECG Data Attestation: I personally reviewed and interpreted this ECG as follows: Indication: + chest pain Rate (beats per minute): 99 Rhythm: + normal sinus ECG ST segments: no ST depression and no ST elevation ECG Findings: no PACs and no PVCs Comparison ECG Date: from (10/22/18) Change: no significant change Blood Pressure Blood Pressure Findings: Elevated blood pressure Blood Pressure Disposition: further management by hospitalist RUTHY Narrative This patient comes in as scribed above. She was placed in room C6. She is here for treatment evaluation of sharp chest pain. It started after eating a small amount of food it did not get stuck she had no trouble swallowing. She called the ambulance and was given aspirin and 3 nitroglycerin sprays prior to arrival. Her symptoms have gotten somewhat better though she still has some chest pain. She has been belching and burping a lot. She was given a GI cocktail her initial EKG does not show any ischemic changes. Chest x-ray and multiple blood testing was obtained. She was reassessed frequently. Her lipase was elevated over thousand concerning for possible pancreatitis her blood sugar was also almost 500 although she is not acidotic. She tells me she stopped taking her medications about a month ago because she was not feeling well. This could be contributing to her some of her symptoms as well. Her troponin is not elevated. Her LFTs are normal. She is not acidotic. I did do a chest CT there is no PE but she probably does have some esophagitis which may be causing her symptoms as well. She was given insulin 10 units IV and will recheck she has come down in the high 300s. Abdomen CT does not show any acute pancreatitis by CT. I do t hink she needs to be admitted/observed for further evaluations of chest pain, management of her hyperglycemia and pain management and GI evaluation. I have consulted Dr. Ding to see her in the ER for these measures. Impression & Plan Chest pain, Acute pancreatitis, Acute hyperglycemia, Non compliance w medication regimen, Epigastric abdominal pain, Esophagitis Discharge Plan Visit Data *Final* Discharge Date/Time: 08/09/19 23:30 Chief Complaint: Chest Pain Stated Complaint: CHEST PAIN ED Provider: Lio Duarte Discharge Problem: Chest pain, Acute pancreatitis, Acute hyperglycemia, Non compliance w medication regimen, Epigastric abdominal pain, Esophagitis Patient Disposition: Admitted As Inpatient Discharge Instructions Interventions: ED Discharge Assessment Last Done: 08/09/19 23:30 Discharge Problem: Chest pain Qualifiers: Chest pain type: unspecified Qualified Code(s): R07.9 - Chest pain, unspecified Acute pancreatitis Qualifiers: Pancreatitis type: unspecified pancreatitis type Acute pancreatitis complication: no infection or necrosis Qualified Code(s): K85.90 - Acute pancreatitis without necrosis or infection, unspecified The scribe's documentation has been prepared under my direction and personally reviewed by me in its entirety. I confirm that the note above accurately reflects all work, treatment, procedures, and medical decision making performed by me.
--- NOTE | 2019-08-09 19:49 | XRay Report ---
XR chest 1V portable CLINICAL HISTORY: Chest pain, nausea and vomiting. COMPARISON STUDY: Chest radiograph October 21, 2018. FINDINGS: Lung volumes are normal. Lungs are clear. There is no pneumothorax or pleural effusion. Car diac size is normal. Mediastinal contours are normal. There is no evidence for pulmonary edema. IMPRESSION: No acute cardiopulmonary findings. ACT 112: Negative or not required by law. Electronically signed by: Jimmy Chavarria M.D. 08/09/2019 7:47 PM
[2019-08-09 19:52] LABS: Basophils # (auto) 0.05 K/uL (0-0.2); Basophils % (auto) 0.9 %; Eosinophils # (auto) 0.09 K/uL (0-0.5); Eosinophils % (auto) 1.6 %; Hematocrit (blood only) 38.1 % (37-47); Immature Granulocytes # (auto) 0.03 K/uL (0.00-0.02); Immature Granulocytes % (auto) 0.5 %; Lymphocytes # (auto) 1.84 K/uL (1.2-3.4); Mean Corpuscular Hgb Conc 34.1 g/dL (32-36); Mean Corpuscular Volume 81.9 fL (80-100); Mean Platelet Volume 9.9 fL (7.4-10.4); Monocytes # (auto) 0.39 K/uL (0.11-0.59); Neutrophils # (auto) 3.18 K/uL (1.4-6.5); Platelet Count 228 K/uL (130-400); RDW Coefficient of Variation 13.6 % (11.5-14.5); Red Blood Count 4.65 M/uL (4.2-5.4); White Blood Count 5.58 K/uL (4.8-10.8)
[2019-08-09 20:04] LABS: Partial Thromboplastin Ratio 0.8; Partial Thromboplastin Time 22.5 Seconds (21.0-31.0)
[2019-08-09 20:16] LABS: Alanine Aminotransferase 24 U/L (12-78); Albumin Globulin Ratio 0.9 (0.9-2); Albumin Level 3.1 gm/dl (3.4-5.0); Alkaline Phosphatase 105 U/L (45-117); Aspartate Aminotransferase 18 U/L (15-37); BUN Creatinine Ratio 13.6 (10-20); Bilirubin,Total 0.3 mg/dl (0.2-1); Blood Urea Nitrogen 17 mg/dl (7-18); Calcium 8.8 mg/dl (8.5-10.1); Carbon Dioxide 23 mmol/L (21-32); Chloride 101 mmol/L (98-107); Creatinine Clr Calc Pharmacy 43.8 ml/min; Est GFR (African American) 50.7; Est GFR (Non-African American) 43.8; Globulin 3.6 gm/dl (2.5-4.0); Glucose 499 mg/dl (70-99); Lipase 1159 U/L (73-393); Potassium 3.8 mmol/L (3.5-5.1); Sodium 133 mmol/L (136-145); Total Protein 6.7 gm/dl (6.4-8.2); Troponin I < 0.015 ng/ml (0-0.045)
[2019-08-09] MEDS ORDERED: NovoLIN-R INSULIN PER UNIT CHARGE IV STA (20:25)
[2019-08-09] MEDS ORDERED: OPTIRAY 320 125ml IV PRN (21:36)
--- NOTE | 2019-08-09 22:04 | CT Scan Report ---
CT ANGIOGRAPHY OF THE CHEST, PULMONARY EMBOLUS PROTOCOL CLINICAL HISTORY: Shortness of breath. Chest pain. Evaluate for pulmonary embolus. COMPARISON STUDY: Chest radiograph March 04, 2017. Chest radiograph performed earlier today. TECHNIQUE: Following IV administration of 116 mL of Optiray-320, helical axial images of the chest we re obtained utilizing the pulmonary embolus protocol. Maximal intensity projections and sagittal and coronal reformats were viewed on an independent 3D workstation. IV contrast was administered withou t complication. Automated exposure control was utilized for the study. A dose lowering technique wa s utilized adhering to the principles of ALARA. CT DOSE: 1117.52 mGy.cm FINDINGS: No pulmonary emboli are identified. The heart is moderately enlarged. There is no pericard ial effusion. Coronary artery calcification is noted. No enlarged thoracic lymph nodes are noted. The re is apparent mild distal esophageal wall thickening. Central airways are patent. There is no consol idation to suggest pneumonia. No pneumothorax or pleural effusion is noted. There is no thoracic lymp hadenopathy. The abdomen and pelvis will be reported separately. IMPRESSION: 1. No pulmonary emboli identified. 2. Moderate cardiomegaly. Coronary artery calcification. 3. Apparent distal esophageal wall thickening. This may be due to underdistention. However, esophagit is could have this appearance. ACT 112: Negative or not required by law. Electronically signed by: Jimmy Chavarria M.D. 08/09/2019 10:02 PM
--- NOTE | 2019-08-09 22:10 | CT Scan Report ---
CT OF THE ABDOMEN AND PELVIS WITH CONTRAST CLINICAL HISTORY: epigastric pain, pancreatitis COMPARISON STUDY: CT of the abdomen and pelvis November 01, 2015. TECHNIQUE: Following IV administration of 116 mL of Optiray-320, axial images of the abdomen and pelv is were obtained from the lung bases to the proximal femurs. Images were reviewed in the axial, sagit dale, and coronal planes. IV contrast was administered without complication. Automated exposure contr ol was utilized for the study. A dose lowering technique was utilized adhering to the principles of ALARA. FINDINGS: No pneumatosis, free air or portal venous gas is present. There is mild wall thickening of the distal esophagus. Mild dilatation of the common bile duct is unchanged from earlier exams and lik tito related to cholecystectomy. The spleen, adrenal glands and pancreas are unremarkable. There is no peripancreatic infiltration or fluid. Major vasculature is patent. There is no hydronephrosis. There is no evidence for a bowel obstruction. The appendix is not visualized. A moderate amount of stool w ithin the colon and rectum is noted. There are no suspicious osseous lesions. There is no hydronephro sis. IMPRESSION: 1. No acute process within the abdomen or pelvis. Normal CT appearance of the pancreas. 2. Moderate amount of stool within the colon and rectum. No bowel obstruction. ACT 112: Negative or not required by law. Electronically signed by: Jimmy Chavarria M.D. 08/09/2019 10:09 PM
--- NOTE | 2019-08-09 23:23 | History & Physical Report ---
Date of Service August 09, 2019 Assessment & Plan (1) Chest pain: 74-year-old female was admitted on 09 August 2019 for chest and epigastric pain. Chest pain, epigastric pain: Acute onset around 4 pm this afternoon immediately on eating some stuffing. Single episode of non-bloody emesis. Says it feels like food gets stuck in her epigastric region. Has a history of similar sensations and GERD. Initial work-up does not suggest a cardiopulmonary cause. GI seems more likely. On brief record review, was seen by GI in August 2018 for similar symptoms, thought to be potentially GERD related, and recommended outpatient follow-up. CTA chest noted apparent distal esophageal wall thickening. - Notable history of IL and stents x 3 about 12 years ago[address] with Dr[address] Jules of cardiology as outpatient. Patient says current symptoms do NOT feel like her previous heart attack. - In ED, afebrile, borderline tachycardic, mildly hypertensive, with normal room SpO2. Electrolytes mostly okay. pCXR clear. TnI is 1942 was negative. EKG was NSR [address]-T wave changes. - In ED, given a dose of GI cocktail which did seem to help. She also says nitroglycerin plus aspirin given by EMS helped, though her discomfort is not resolved. - Will consult GI for their evaluation and consideration for need for EGD. Add Carafate. Continue home pantoprazole. Will hold home ranitidine. As a precaution, will continue serial troponins. Hyperglycemia, uncontrolled type 2 diabetes: Admit glucose 499. Anion gap 9. Apr 2019 HbA1c was 13.2. At home is on metformin, Tresiba 25 units BID, and NovoLog 12 units with meals. She says her blood sugar is frequently in the 500s. - In ED, given normal saline and 10 units of insulin. - As inpatient, held metformin and will place a glycemic consult. Elevated lipase: Admit lipase 1159. LFTs are normal. Previous cholecystectomy. Triglycerides in April 2019 were 364. She does have some epigastric discomfort which in theory could be related to acute pancreatitis, though cause is not immediately clear. CT a/p noted No acute process within the abdomen or pelvis. Normal CT appearance of the pancreas. - Will provide IVF and recheck in AM. NPO to check TG level in AM. Hyponatremia: Admit sodium 133. May be mild hypokalemia. Will rehydrate and recheck in a.m. Elevated creatinine: Admit Cr 1.23, similar to recent comparisons, though not mentioned in brief review of outpatient record. Will rehydrate and recheck in a.m. Ongoing medical issues: - Hypertension, hyperlipidemia: Continue home aspirin, Coreg, rosuvastatin. Not sure what her home Lisinopril dose is. - Anxiety and depression: Continue home buspirone, duloxetine. - Chronic abdominal pain, chronic constipation, gastroparesis: Continue home Linzess, though patient has not taken it for 48 hours due to relative increased traveling. Code status: Full code. Diet: NPO to check TG in AM, then DM diet. DVT prophy: Lovenox. PT/OT: Deferred. Disbo: Admit to [facility] telemetry for observation. (2) Epigastric pain: (3) Hyperglycemia: (4) Uncontrolled type 2 diabetes mellitus with neurologic complication, with long-term current use of insulin: (5) Elevated lipase: (6) Hyponatremia: (7) Elevated serum creatinine: (8) HTN (hypertension): (9) Hyperlipidemia: (10) Anxiety: (11) Depression: (12) Chronic pain syndrome: (13) Chronic constipation: (14) Diabetic gastroparesis: History of Present Illness Primary Care Provider: Lalito Pimentel MD 74-year-old female presents with chest and epigastric pain. Patient says that around 4 PM she had a very small piece of stuffing to eat. Very soon after this she developed pain [pointing to] her lower sternal and epigastric regions. She thinks she was able to completely swallow it but does occasionally get the feeling of food getting stuck. She did become nauseous and had a single episode of emesis which made her feel better. Patient notes a history of multiple MIs within a short period of time about 12 years ago. Although the symptoms did not feel quite like that, she called EMS for further evaluation. They gave her a baby aspirin and nitroglycerin which did improve but not resolve her symptoms. On this H&P, patient says that her symptoms also improved with a GI cocktail. However, she continues to have about a 4/10 level of chest discomfort with slight radiation towards her right chest. Denies any shortness of breath, recent fever or cough, or particular respiratory symptoms. - Past medical history includes carpal tunnel syndrome, hypertension, hyperlipi demia, type 2 diabetes, diabetic neuropathy, gastroparesis, obesity, cognitive dysfunction, migraines, GERD, chronic pain, anxiety and depression, chronic constipation, arthritis, vitamin D deficiency, IBS, osteoarthritis, hiatal hernia, Mckeon's esophagus - Past surgical history includes cholecystectomy and hysterectomy. - Social history includes former smoker. Does not drink alcohol. Lives at home alone. Allergies Allergy/AdvReac Type Severity Reaction Status Date / Time cephalexin Allergy Intermediate Rash and Verified 08/09/19 21:24 itchiness Cephalosporins Allergy Intermediate Rash and Verified 08/09/19 21:24 itchiness Sulfa (Sulfonamide Allergy Intermediate Hives Verified 08/09/19 21:24 Antibiotics) Home Medications Home Medications Medication Instructions Recorded Confirmed Type nitroglycerin [Nitrostat] 0.4 mg SUBLINGUAL UD PRN #0 btl 07/27/17 08/09/19 History omega 2-dnu-wdn-fish oil [Fish Oil] 1,000 mg PO QAM #0 cap 07/27/17 08/09/19 History aspirin [Aspir-81] 81 mg PO DAILY #0 10/14/17 08/09/19 History acetaminophen [Acetaminophen Extra 1,000 mg PO Q8 PRN #0 tab 08/29/18 08/09/19 Rx Strength] pen needle, diabetic [BD #90 ea 08/29/18 08/09/19 Rx Ultra-Fine [place] Pen Needle] buspirone 10 mg tablet 10 mg PO TID #90 tab 01/25/19 08/09/19 Rx insulin aspart U-100 100 unit/mL 5 units SC AC #0 ml 02/22/19 08/09/19 Rx (3 mL) subcutaneous pen diclofenac sodium 1 % topical gel 2 gm TOP QID #300 gm 02/23/19 08/09/19 Rx ranitidine HCl 150 mg tablet 150 mg PO BID #180 tab 03/31/19 08/09/19 Rx cholecalciferol (vitamin D3) 25 1,000 units PO DAILY #0 tab 04/05/19 08/09/19 History mcg (1,000 unit) capsule linaclotide 145 mcg capsule 145 mcg PO QAM cap 04/05/19 08/09/19 History insulin degludec 100 unit/mL (3 15 units SQ .COMPLEX #15 ml 04/10/19 08/09/19 Rx mL) subcutaneous pen rosuvastatin 40 mg tablet 40 mg PO DAILY 04/28/19 08/09/19 History blood sugar diagnostic #100 ea 05/04/19 08/09/19 Rx metformin 1,000 mg tablet 1,000 mg PO BID #60 tab 05/08/19 08/09/19 Rx carvedilol 3.125 mg tablet 3.125 mg PO BID #180 tab 05/26/19 08/09/19 Rx lisinopril 10 mg tablet See Rx Instructions .ROUTE 06/27/19 08/09/19 Rx .COMPLEX #90 tablet duloxetine 30 mg capsule,delayed 30 mg PO QAM #30 cap 07/20/19 08/09/19 Rx release pantoprazole 40 mg tablet,delayed 40 mg PO DAILY #90 tab 08/07/19 08/09/19 Rx release Past Med/Surg History Medical History Anal stricture (Acute) Anxiety (Chronic) Anxiety disorder (Acute) ASCVD (arteriosclerotic cardiovascular disease) (Chronic) Atypical chest pain Cancer Cervical pain (neck) (Acute) Chronic constipation (Acute) Chronic pain syndrome (Chronic) Cognitive dysfunction (Acute) Constipation (Acute) Daytime somnolence (Acute) Degenerative joint disease involving multiple joints (Acute) Depression (Acute) Diabetes mellitus, type 2 Diabetic gastroparesis (Chronic) Diabetic neuropathy (Acute) Diabetic peripheral neuropathy (Acute) DJD (degenerative joint disease) of knee (Acute) Early satiety (Acute) GERD without esophagitis (Acute) HTN (hypertension) (Chronic) Hyperlipidemia (Chronic) IBS (irritable bowel syndrome) (Chronic) Impaired sensation (Acute) Lumbar spondylosis (Acute) IL (myocardial infarction) Migraine headache (Acute) Myocardial Infarction HX OF CATH 2012 [facility] [place] FOLLOWS WITH DR. JULES Osteoarthritis Trapezius muscle spasm (Acute) Uncontrolled type 2 diabetes mellitus with neurologic complication, with long- term current use of insulin (Chronic) Vitamin D deficiency (Acute) Surgical History Fusion of spine LUMBAR History of cardiac cath History of cataract surgery Left cataract 03/09/18. 2mg versed. no issues History of cholecystectomy Family History Other Cancer Diabetes Heart disease Hypertension Social History Preferred Language: Portuguese Communication Ability: Effective Geotechnicial Properties Technician Required: No Beliefs That Will Affect Care: None Current Living Situation: Alone Other Information That Helps Us Care for You: No Feels Safe at Home: Yes Smoking Status: Never smoker Tobacco Type: cigarettes ; Do You Dip or Chew Tobacco: No ; Second Hand Exposure: No ; Hx Alcohol Use: No Hx Substance Use: No Seatbelt Use: always Review of Systems Review of Systems: Constitutional: Denies fevers, chills, focal weakness Eyes: Denies any visual loss or diplopia ENT: Denies any ear/nose/throat pain or difficulty speaking or swallowing Respiratory: Denies any dyspnea, cough, hemoptysis Cardiovascular: Positive central chest/epigastric pain. Denies feeling of edema. Gastrointestinal: Positive chronic abdominal pain. Acute nausea vomiting. Denies diarrhea. Some constipation. Musculoskeletal: Denies any acute extremity pains, myalgias, or focal weakness Skin: Denies any known acute rashes or lesions Neuro: Denies any headache, acute focal weakness or numbness, or difficulties with speech or swallow. Physical Exam Physical Exam: GENERAL: Awake, alert, well-appearing, in no acute distress HENT: Normocephalic, atraumatic. Oropharynx unremarkable. EYES: Normal conjunctiva. Sclera non-icteric. NECK: Inspection normal. Supple and full ROM. No nuchal rigidity. CARDIAC: +S1S2 RRR, no murmurs. RESPIRATORY: Clear to auscultation. No wheezes or rales. Normal respiratory effort. GI: +BS, soft, non-distended. No rebound or guarding. Positive mild tenderness to palpation in the entire upper abdominal field. No notable tenderness in bilateral lower quadrants. Has a very well-healed large right upper quadrant incision. EXTREMITIES: No pedal edema or calf tenderness. Moving all extremities naturally and easily. NEURO: No gross neuro deficits. Results & Data Vital Signs (Past 12 Hours) Vital Signs Temp Pulse Pulse Resp BP BP Pulse Ox 08/09/19 21:15 85 20 172/91 H 98 08/09/19 19:20 37 C 98 H 20 140/81 97 Laboratory Results 12/25/19 12/25/19 12/25/19 Range/Units 22:45 19:42 19:42 WBC (4.8-10.8) K/uL RBC (4.2-5.4) M/uL Hgb (12.0-16.0) g/dL Hct (37-47) % MCV (80-100) fL MCH (25-34) pg MCHC (32-36) g/dL RDW Std Deviation (36.4-46.3) fL RDW Coeff of Tino (11.5-14.5) % Plt Count (130-400) K/uL MPV (7.4-10.4) fL Immature Gran % (Auto) % Neut % (Auto) % Lymph % (Auto) % [place] % (Auto) % Eos % (Auto) % Baso % (Auto) % Immature Gran # (Auto) (0.00-0.02) K/uL Neut # (Auto) (1.4-6.5) K/uL Lymph # (Auto) (1.2-3.4) K/uL [place] # (Auto) (0.11-0.59) K/uL Eos # (Auto) (0-0.5) K/uL Baso # (Auto) (0-0.2) K/uL PT 10.0 (9.0-12.0) Seconds INR 1.0 (0.9-1.1) APTT 22.5 (21.0-31.0) Seconds PTT Ratio 0.8 Sodium 133 L (136-145) mmol/L Potassium 3.8 (3.5-5.1) mmol/L Chloride 101 (98-107) mmol/L Carbon Dioxide 23 (21-32) mmol/L Anion Gap 9.0 (3-11) BUN 17 (7-18) mg/dl Creatinine 1.23 H (0.6-1.2) mg/dl Est Cr Clr Drug Dosing 43.8 ml/min Est GFR ( Amer) 50.7 Est GFR (Non-Af Amer) 43.8 BUN/Creatinine Ratio 13.6 (10-20) Glucose 499 H* (70-99) mg/dl POC Glucose 371 H* (70-99) Calcium 8.8 (8.5-10.1) mg/dl Total Bilirubin 0.3 (0.2-1) mg/dl AST 18 (15-37) U/L ALT 24 (12-78) U/L Alkaline Phosphatase 105 (45-117) U/L Troponin I < 0.015 (0-0.045) ng/ml Total Protein 6.7 (6.4-8.2) gm/dl Albumin 3.1 L (3.4-5.0) gm/dl Globulin 3.6 (2.5-4.0) gm/dl Albumin/Globulin Ratio 0.9 (0.9-2) Lipase 1159 H (73-393) U/L Beta-Hydroxybutyric Acd (0.2-2.81) mg/dl Specimen Hemolysis 08/09/19 Range/Units 19:42 WBC 5.58 (4.8-10.8) K/uL RBC 4.65 (4.2-5.4) M/uL Hgb 13.0 (12.0-16.0) g/dL Hct 38.1 (37-47) % MCV 81.9 (80-100) fL MCH 28.0 (25-34) pg MCHC 34.1 (32-36) g/dL RDW Std Deviation 41.0 (36.4-46.3) fL RDW Coeff of Tino 13.6 (11.5-14.5) % Plt Count 228 (130-400) K/uL MPV 9.9 (7.4-10.4) fL Immature Gran % (Auto) 0.5 % Neut % (Auto) 57.0 % Lymph % (Auto) 33.0 % [place] % (Auto) 7.0 % Eos % (Auto) 1.6 % Baso % (Auto) 0.9 % Immature Gran # (Auto) 0.03 H (0.00-0.02) K/uL Neut # (Auto) 3.18 (1.4-6.5) K/uL Lymph # (Auto) 1.84 (1.2-3.4) K/uL [place] # (Auto) 0.39 (0.11-0.59) K/uL Eos # (Auto) 0.09 (0-0.5) K/uL Baso # (Auto) 0.05 (0-0.2) K/uL PT (9.0-12.0) Seconds INR (0.9-1.1) APTT (21.0-31.0) Seconds PTT Ratio Sodium (136-145) mmol/L Potassium (3.5-5.1) mmol/L Chloride (98-107) mmol/L Carbon Dioxide (21-32) mmol/L Anion Gap (3-11) BUN (7-18) mg/dl Creatinine (0.6-1.2) mg/dl Est Cr Clr Drug Dosing ml/min Est GFR ( Amer) Est GFR (Non-Af Amer) BUN/Creatinine Ratio (10-20) Glucose (70-99) mg/dl POC Glucose (70-99) Calcium (8.5-10.1) mg/dl Total Bilirubin (0.2-1) mg/dl AST (15-37) U/L ALT (12-78) U/L Alkaline Phosphatase (45-117) U/L Troponin I (0-0.045) ng/ml Total Protein (6.4-8.2) gm/dl Albumin (3.4-5.0) gm/dl Globulin (2.5-4.0) gm/dl Albumin/Globulin Ratio (0.9-2) Lipase (73-393) U/L Beta-Hydroxybutyric Acd (0.2-2.81) mg/dl Specimen Hemolysis Medications Administered Ioversol (Optiray 320 125ml) 116 ml IV ONCE PRN PRN Reason: Interaction Checking Stop: 08/13/19 21:35 Last Admin: 08/09/19 21:42 Dose: 116 ml Documented by: [id number] Discontinued Medications Al Hydrox/Mg Hydrox/Simethicone () 1 dose PO ONE ONE Stop: 08/09/19 19:23 Last Admin: 08/09/19 19:40 Dose: 1 dose Documented by: [id number] Sodium Chloride (Nss) 500 mls @ 999 mls/hr IV .Q31M LEON Stop: 08/09/19 20:00 Last Infusion: 08/09/19 20:36 Dose: 0 mls/hr Documented by: [id number] Admin: 08/09/19 19:53 Dose: 999 mls/hr Documented by: [id number] Insulin Human Regular (Novolin R U-100 Per Unit) 10 units IV NOW STA Stop: 08/09/19 20:26 Last Admin: 08/09/19 20:34 Dose: 10 units Documented by: [id number] Cosigned by: [id number] Code Status & VTE Plan Code Status Full code VTE Prophylaxis Plan VTE Prophylaxis will be ordered: Yes Supervising Physician Co-Signing Physician Notes Attending addendum: I have physically seen this patient, have supervised the medical residents activities, and agree with the H&P unless as otherwise noted. Assessment and Plan: Pancreatitis- Lipase permission 1159. Follow serial enzymes. Check a fasting lipid panel for triglycerides and hemoglobin A1c Ordered CT abdomen pelvis to further characterize pancreatitis, in particular assess for pancreatic pseudocyst. Hyperglycemia in Diabetes- Check a hemoglobin A1c. Blood sugar 499 upon admission. Patient stopped medication months ago. Placed on Accu-Cheks before meals and at bedtime with NovoLog coverage per scale. Patient counseling and education needed. Remainder of orders and notations as noted. Resident Activity Tracking Resident Involvement: Resident Care Provided Care Provided: Adult Hospital Medicine (1) Hyperlipidemia Hyperlipidemia type: mixed hyperlipidemia Qualified Code(s): E78.2 - Mixed hyperlipidemia (2) Chest pain Chest pain type: unspecified Qualified Code(s): R07.9 - Chest pain, unspecified (3) HTN (hypertension) Hypertension type: essential hypertension Qualified Code(s): I10 - Essential (primary) hypertension
[2019-08-09] MEDS ORDERED: ONDANSETRON INJ 2 MG/ML 2 ML VIAL IV PRN (23:41)
[2019-08-09] MEDS ORDERED: NITROGLYCERIN SL 0.4 MG/TAB TAB SL PRN (23:41)
[2019-08-10] MEDS ORDERED: PHARMACY GLYCEMIC MGMT CONSULT PRN (00:42)
[2019-08-10] MEDS: LACTATED RINGER'S 1,000 ML IV SCH ×3 (00:44→16:46)
[2019-08-10] MEDS ORDERED: GLUCOSE 10 TABS/TUBE PO PRN (00:45)
[2019-08-10] MEDS ORDERED: CARBOHYDRATES FOR HYPOGLYCEMIA PO PRN (00:45)
[2019-08-10] MEDS ORDERED: INSULIN ASPART 100 UNITS/ML 3 ML PEN SC ONE (00:45)
[2019-08-10] MEDS ORDERED: GLUCOSE 40% GEL 15 GM TUBE PO PRN (00:45)
[2019-08-10] MEDS ORDERED: INSULIN GLARGINE SOLOSTAR 100 UNITS/ML 3 ML PEN SC ONE ×2 (00:45→09:00)
[2019-08-10] MEDS ORDERED: DEXTROSE 50% 50 ML SYRINGE IV PRN (00:45)
[2019-08-10] MEDS ORDERED: GLUCAGON FOR INJ 1 MG VIAL SQ PRN (00:45)
[2019-08-10] MEDS ORDERED: INSULIN ASPART 100 UNITS/ML 3 ML PEN SC SCH (04:00)
[2019-08-10 07:19] LABS: Estimated Average Glucose 435 mg/dl; Hemoglobin A1C 16.8 % (4.5-5.6)
[2019-08-10 07:24] LABS: BUN Creatinine Ratio 13.5 (10-20); Blood Urea Nitrogen 12 mg/dl (7-18); Calcium 8.1 mg/dl (8.5-10.1); Carbon Dioxide 29 mmol/L (21-32); Chloride 106 mmol/L (98-107); Creatinine Clr Calc Pharmacy 58.8 ml/min; Est GFR (African American) 77.1; Est GFR (Non-African American) 66.6; Glucose 194 mg/dl (70-99); Lipase 304 U/L (73-393); Potassium 3.5 mmol/L (3.5-5.1); Sodium 138 mmol/L (136-145)
[2019-08-10 07:28] LABS: Chol HDL Ratio 9; Cholesterol 225 mg/dl (0-200); HDL Cholesterol 25 mg/dl; Triglycerides 410 mg/dl (0-150); Troponin I < 0.015 ng/ml (0-0.045)
[2019-08-10] MEDS: PANTOprazole 40 MG TAB PO SCH (08:15)
[2019-08-10] MEDS: carvediloL 3.125 MG TAB PO SCH ×2 (08:16→20:53)
[2019-08-10] MEDS: DULOXETINE HCL 30 MG CAP PO SCH (08:16)
[2019-08-10] MEDS: OMEGA-3 (PURIFIED FISH OIL) 1 GM CAP PO SCH (08:16)
[2019-08-10] MEDS: ROSUVASTATIN CALCIUM 20 MG TAB PO SCH (08:16)
[2019-08-10] MEDS: LINACLOTIDE 72 MCG CAPSULE PO SCH (08:16)
[2019-08-10] MEDS: CHOLECALCIFEROL 1,000 UNITS TAB PO SCH (08:17)
[2019-08-10] MEDS: ASPIRIN 81 MG ECTAB PO SCH (08:17)
[2019-08-10] MEDS: DICLOFENAC SOD 1% GEL 100 GM TUBE EXT SCH ×4 (08:17→20:50)
[2019-08-10] MEDS: ENOXAPARIN INJ 40 MG/0.4 ML SYR SQ SCH (08:17)
[2019-08-10] MEDS: INSULIN ASPART 100 UNITS/ML 3 ML PEN SC SCH ×4 (08:22→18:29)
[2019-08-10] MEDS ORDERED: SUCRALFATE 1 GM TAB PO SCH (09:00)
[2019-08-10] MEDS: ACETAMINOPHEN 500 MG TAB PO PRN (11:06)
[2019-08-10] MEDS ORDERED: ALUMINUM/MAGNESIUM SUSP 18 ML, LIDOCAINE HCL VISCOUS 2% 6 ML, BARCODE IDENTIFIER 1 EA PO ONE (15:15)
--- NOTE | 2019-08-10 15:15 | Pharmacy Report ---
Pharmacy Glycemic Short Note 2 - Date of Service August 10, 2019 - Glycemic Short BSG Results (Last 24 hours): 08/09/19 08/09/19 08/10/19 19:42 22:45 00:53 Glucose 499 H* POC Glucose 371 H* 228 H 08/10/19 08/10/19 08/10/19 05:36 06:43 07:47 Glucose 194 H POC Glucose 177 H 188 H 08/10/19 11:15 Glucose POC Glucose 219 H OUTPATIENT ANTIDIABETIC REGIMEN: * Tresiba 25 units BID, Novolog 12 units TID with meals, metformin * A1c = 16.8% ASSESSMENT: * Claire Rosas is a 74 yr old female admitted with chest pain and hyperglycemia * Patient was given a 10 unit IV regular insulin bolus in the ED. Fasting BSG of 177 mg/dL. * Patient takes a total of 86 units of insulin at home which is equivalent to 22 units of basal insulin BID + Novolog with CF 20 and carb ratio 6 (this is similar to weight based dosing with stress of 3). Will continue a similar regimen as inpatient since these doses are already aggressive and titrate as needed. Overnight checks with be utilized incase hyperglycemia persists. I am hesitant to correct BSG too fast due to severely elevated A1c. PLAN FOR INPATIENT GLYCEMIC CONTROL: * Hold outpatient oral diabetes medications * Basal insulin * Lantus 25 units SQ this morning, then Lantus per scale BID: - 15 units for BSG less than 120 mg/dL - 20 units for BSG 120-180 mg/dL - 25 units for BSG greater than 180 mg/dL * Bolus insulin * NovoLog per scale ACHS or Q6hrs while NPO * Goal Range: Low 120 mg/dL - High 150 mg/dL * Correction Factor: 20 mg/dL/unit * Nutritional / Prandial insulin per carb ratio of 1 unit per 6 grams CHO consumed * Overnight checks at 00 and 04 PLAN FOR DISCHARGE: * pending
--- NOTE | 2019-08-10 15:32 | Gastrointestinal Consultation ---
Date of Consultation August 10, 2019 Assessment & Plan (1) Atypical chest pain: Discussed with DR Archer who states patient had neg stress test in Aug and with troponins neg he does not feel CP is cardiac. NO mention of incarceration or gastric volvulus on either Chest CT or a/p CT. Furthermore, CO2 normal yesterday adn today and WBC normal on admit so doubt ischemic process. Could be esophagitis or esophageal lesion or esophageal spasm. Esophageal thickening on CT n/v dysphagia--possibly--tolerating liquid so do not feel there is a food bolus at present. For the above recommend continue PPI and H2 stephani and EGD with prn dilatation. EGD tomorrow. Proc and risks explained to patient which include but not limited to med reaction, bleeding perforation, aspiration, and missed lesions. Stopped carafate which was started on admit because planning EGD. History of Present Illness Reason for Consultation: epigastric pain, GERd, Dysphagia Requesting Physician: Dr Kiran Wilson Attending Physician: Roger Archer MD History of Present Illness CC chest pain HPI Pt with hx of CAD and also atypical chest pain. Reviwed this EMR and [facility] EMR. Most recent EGD was done by me 03/2017 for chest pain. This showed 5 cm HH, short segment Barretts, path barretts. She has chornic constipation and had last colonoscopy 07/2017 showing anal stricture, sigmoid diverticulosis, external hemorrhoids. 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 She is on Protonix 40 mg daily and Zantac 150 bid at home. She states about 1 week ago developed chest pain and though food was hanging up in epigastrium. Yesterday after eating small bit of stuffing she had intense chest pain and vomiting. She was given some Nitro which helped some and GI cocktail which helped some. However, solid diet for breakfast and pureed diet for lunch caused recurrent CP. Water at present is going down fine. She was not taking her DM med and gluc markedly elevated and noted Hgb A1C 16.8. On admit LFTS normal. Lipase elevated to 1159 but today normal. CTA of chest done neg for PE but showed esopahgeal thickening. CT a/p dilated CBD secondary to cholecystectomy, enlarged heart, thickened esohagus. Allergies Allergy/AdvReac Type Severity Reaction Status Date / Time cephalexin Allergy Intermediate Rash and Verified 08/09/19 21:24 itchiness Cephalosporins Allergy Intermediate Rash and Verified 08/09/19 21:24 itchiness Sulfa (Sulfonamide Allergy Intermediate Hives Verified 08/09/19 21:24 Antibiotics) Home Medications Home Medications Medication Instructions Recorded Confirmed Type nitroglycerin [Nitrostat] 0.4 mg SUBLINGUAL UD PRN #0 btl 07/27/17 08/09/19 History omega 6-kxs-pav-fish oil [Fish Oil] 1,000 mg PO QAM #0 cap 07/27/17 08/09/19 History aspirin [Aspir-81] 81 mg PO DAILY #0 10/14/17 08/09/19 History acetaminophen [Acetaminophen Extra 1,000 mg PO Q8 PRN #0 tab 08/29/18 08/09/19 Rx Strength] pen needle, diabetic [BD #90 ea 08/29/18 08/09/19 Rx Ultra-Fine [place] Pen Needle] buspirone 10 mg tablet 10 mg PO TID #90 tab 01/25/19 08/09/19 Rx insulin aspart U-100 100 unit/mL 5 units SC AC #0 ml 02/22/19 08/09/19 Rx (3 mL) subcutaneous pen diclofenac sodium 1 % topical gel 2 gm TOP QID #300 gm 02/23/19 08/09/19 Rx ranitidine HCl 150 mg tablet 150 mg PO BID #180 tab 03/31/19 08/09/19 Rx cholecalciferol (vitamin D3) 25 1,000 units PO DAILY #0 tab 04/05/19 08/09/19 History mcg (1,000 unit) capsule linaclotide 145 mcg capsule 145 mcg PO QAM cap 04/05/19 08/09/19 History insulin degludec 100 unit/mL (3 15 units SQ .COMPLEX #15 ml 04/10/19 08/09/19 Rx mL) subcutaneous pen rosuvastatin 40 mg tablet 40 mg PO DAILY 04/28/19 08/09/19 History blood sugar diagnostic #100 ea 05/04/19 08/09/19 Rx metformin 1,000 mg tablet 1,000 mg PO BID #60 tab 05/08/19 08/09/19 Rx carvedilol 3.125 mg tablet 3.125 mg PO BID #180 tab 05/26/19 08/09/19 Rx lisinopril 10 mg tablet See Rx Instructions .ROUTE 06/27/19 08/09/19 Rx .COMPLEX #90 tablet duloxetine 30 mg capsule,delayed 30 mg PO QAM #30 cap 07/20/19 08/09/19 Rx release pantoprazole 40 mg tablet,delayed 40 mg PO DAILY #90 tab 08/07/19 08/09/19 Rx release Patient History Medical History (Updated 08/10/19 @ 15:28 by Lio To) Anal stricture (Acute) Anxiety (Chronic) Anxiety disorder (Acute) ASCVD (arteriosclerotic cardiovascular disease) (Chronic) Atypical chest pain Cancer Cervical pain (neck) (Acute) Chronic constipation (Acute) Chronic pain syndrome (Chronic) Cognitive dysfunction (Acute) Constipation (Acute) Daytime somnolence (Acute) Degenerative joint disease involving multiple joints (Acute) Depression (Acute) Diabetes mellitus, type 2 Diabetic gastroparesis (Chronic) Diabetic neuropathy (Acute) Diabetic peripheral neuropathy (Acute) DJD (degenerative joint disease) of knee (Acute) Early satiety (Acute) GERD without esophagitis (Acute) HTN (hypertension) (Chronic) Hyperlipidemia (Chronic) IBS (irritable bowel syndrome) (Chronic) Impaired sensation (Acute) Lumbar spondylosis (Acute) TN (myocardial infarction) Migraine headache (Acute) Myocardial Infarction HX OF CATH 2013 [facility] – [place], FOLLOWS WITH DR. JULES Osteoarthritis Trapezius muscle spasm (Acute) Uncontrolled type 2 diabetes mellitus with neurologic complication, with long- term current use of insulin (Chronic) Vitamin D deficiency (Acute) Surgical History Fusion of spine LUMBAR History of cardiac cath History of cataract surgery Left cataract 03/09/18. 2mg versed. no issues History of cholecystectomy Family History Other Cancer Diabetes Heart disease Hypertension Social History Preferred Language: Bulgarian Communication Ability: Effective Supervisor Dock Required: No Beliefs That Will Affect Care: None Current Living Situation: Alone Feels Safe at Home: Yes Smoking Status: Never smoker Tobacco Type: cigarettes ; Second Hand Exposure: No ; Hx Alcohol Use: No Hx Substance Use: No Seatbelt Use: always Review of Systems Review of Systems: All systems reviewed & are unremarkable except as noted in HPI & below Physical Exam Constitutional: WD/WN, vitals as above Eyes: PERRL, conjunctivae normal, anicteric sclerae ENMT: external ear and nose normal, oropharynx normal Neck: normal visual inspection and trachea midline Respiratory: normal respiratory effort, lungs clear to auscultation Cardiovascular: RRR, no murmur, no edema chest wall tender on palpation Gastrointestinal (Abdomen): pos bs, soft, no guarding nor rebound Skin: normal turgor Neurologic: PERRL, EOMI, accommodation nl, no face palsy, no dysarthria Psychiatric: A+Ox3, euthymic affect Results & Data Vital Signs (Past 12 Hours) Vital Signs Temp Pulse Pulse Pulse Resp BP BP 08/10/19 11:59 36.5 C 78 20 145/86 H 08/10/19 07:27 36.4 C L 69 18 146/81 H 08/10/19 04:32 36.4 C L 68 20 132/84 Pulse Ox 08/10/19 11:59 96 08/10/19 07:27 96 08/10/19 04:32 98
[2019-08-10] MEDS: NITROGLYCERIN 2% OINTMENT 30GM TUBE EXT SCH ×2 (16:39→20:54)
[2019-08-10] MEDS: FAMOTIDINE 20 MG in SYRINGE 3 ML IV SCH (16:42)
--- NOTE | 2019-08-10 20:38 | Hospitalist Progress Note ---
Date of Service August 10, 2019 Assessment & Plan (1) Esophageal spasm: Suspect this is causing a lot of her current chest pain. Started on nitro patch -> can increase overnight if getting worse but appears to have helped. GI cocktail also given. Avoid carafate prior to EGD. Troponins negative and cleared for EGD in AM. Negative stress test in August 2018 also reassuring. (2) Atypical chest pain: As above. Serial troponins negative. Not cardiac given severity and duration with negative troponins. (3) Esophagitis: seen on CT. Will start famotidine IV. Stop carafate as above (4) Uncontrolled type 2 diabetes mellitus with neurologic complication, with long-term current use of insulin: Hemoglobin A1C 16.8. Pharmacy consulted for medical management (5) DVT prophylaxis: Lovenox 40mg SQ daily (6) Discharge planning issues: No issues anticipated. Planned discharge tomorrow if tolerating normal diet without further spasms Subjective Revisited history with the patient. She reports chronic chest pain with occasional radiation to either shoulder. Current episode similar to previous chest pain but progressively worse over the last month and very severe after eating some food yesterday. Has not left her since then. Reoccurred with breakfast this morning and even when changed to a puree diet. She reports pain usually with palpation, exertion, food, any position. This recent occasion has definite correlation with food however. Associated increased belching, nausea and subjective shortness of breath. No diaphoresis. She was admitted with a similar presentation in August and had a negative stress echo at that time. No EGD was performed on that occasion but GI consult noted EGD within the last year was normal. She is aware her diabetes is poorly controlled but reports much more compliance with her diabetes regimen recently. In the past she has missed doses. Her glucose measurements are routinely in the 500s however. Review of Systems Review of Systems: All systems reviewed & are unremarkable except as noted in HPI & below Cardiovascular: + chest pain, + chest pain at rest and + chest pain with activity Gastrointestinal: + belching, + bloating, + heartburn and + nausea; no vomiting Physical Exam Constitutional: WD/WN, vitals as above Eyes: + anicteric sclerae; normal pupil size Respiratory: normal respiratory effort, lungs clear to auscultation Cardiovascular: RRR, no murmur, no edema Chest (Breasts): Additional Comments: Reproducible chest pain on palpation Gastrointestinal (Abdomen): Inspection/Auscultation: abdomen normal to inspection and normal bowel sounds; abdomen not distended Percussion/Palpation: abdomen soft; abdomen nontender, no guarding and abdomen not rigid Skin: no rashes, warm and dry Psychiatric: A+Ox3, euthymic affect Results & Data Vital Signs (Past 12 Hours) Vital Signs Temp Pulse Pulse Pulse Resp BP BP 08/10/19 19:34 36.7 C 73 18 118/75 08/10/19 17:26 67 08/10/19 15:00 36.6 C 74 19 150/88 H 08/10/19 11:59 36.5 C 78 20 145/86 H Pulse Ox 08/10/19 19:34 95 08/10/19 17:26 08/10/19 15:00 95 08/10/19 11:59 96 PG Care Time/CCT Total # of Minutes Spent Total Time Spent with Patient: Total time spent is greater than 50% in coordination of care (as documented) at patient's floor/unit and/or counseling patient:
[2019-08-10] MEDS: INSULIN GLARGINE SOLOSTAR 100 UNITS/ML 3 ML PEN SC SCH (21:37)
[2019-08-11] MEDS: LACTATED RINGER'S 1,000 ML IV SCH ×4 (00:23→23:49)
[2019-08-11] MEDS: INSULIN ASPART 100 UNITS/ML 3 ML PEN SC SCH ×5 (00:27→20:43)
[2019-08-11] MEDS ORDERED: INSULIN ASPART 100 UNITS/ML 3 ML PEN SC SCH ×2 (03:00)
[2019-08-11] MEDS: NITROGLYCERIN 2% OINTMENT 30GM TUBE EXT SCH ×3 (03:59→13:29)
[2019-08-11] MEDS: ACETAMINOPHEN 500 MG TAB PO PRN (04:00)
[2019-08-11 07:10] LABS: Basophils # (auto) 0.04 K/uL (0-0.2); Basophils % (auto) 1.1 %; Eosinophils # (auto) 0.09 K/uL (0-0.5); Eosinophils % (auto) 2.5 %; Hematocrit (blood only) 34.6 % (37-47); Hemoglobin 11.7 g/dL (12.0-16.0); Immature Granulocytes # (auto) 0.02 K/uL (0.00-0.02); Immature Granulocytes % (auto) 0.6 %; Lymphocytes % (auto) 27.5 %; Mean Corpuscular Hemoglobin 27.9 pg (25-34); Mean Corpuscular Hgb Conc 33.8 g/dL (32-36); Mean Corpuscular Volume 82.4 fL (80-100); Mean Platelet Volume 9.6 fL (7.4-10.4); Monocytes # (auto) 0.22 K/uL (0.11-0.59); Monocytes % (auto) 6.1 %; Neutrophils # (auto) 2.26 K/uL (1.4-6.5); Neutrophils % (auto) 62.2 %; Platelet Count 171 K/uL (130-400); RDW Coefficient of Variation 14.1 % (11.5-14.5); RDW Standard Deviation 42.4 fL (36.4-46.3); White Blood Count 3.63 K/uL (4.8-10.8)
[2019-08-11 07:47] LABS: Albumin Level 2.3 gm/dl (3.4-5.0); Calcium 8.1 mg/dl (8.5-10.1); Creatinine Clr Calc Pharmacy 66.5 ml/min; Potassium 3.6 mmol/L (3.5-5.1)
[2019-08-11 07:51] LABS: Albumin Globulin Ratio 0.8 (0.9-2); Bilirubin,Total 0.3 mg/dl (0.2-1); Globulin 2.8 gm/dl (2.5-4.0); Total Protein 5.1 gm/dl (6.4-8.2)
[2019-08-11] MEDS: CHOLECALCIFEROL 1,000 UNITS TAB PO SCH (08:02)
[2019-08-11] MEDS: carvediloL 3.125 MG TAB PO SCH ×2 (08:03→20:40)
[2019-08-11] MEDS: ROSUVASTATIN CALCIUM 20 MG TAB PO SCH (08:03)
[2019-08-11] MEDS: ENOXAPARIN INJ 40 MG/0.4 ML SYR SQ SCH (08:03)
[2019-08-11] MEDS: PANTOprazole 40 MG TAB PO SCH ×2 (08:04→20:45)
[2019-08-11] MEDS: LINACLOTIDE 72 MCG CAPSULE PO SCH (08:04)
[2019-08-11] MEDS: DICLOFENAC SOD 1% GEL 100 GM TUBE EXT SCH ×4 (08:04→20:45)
[2019-08-11] MEDS: OMEGA-3 (PURIFIED FISH OIL) 1 GM CAP PO SCH (08:04)
[2019-08-11] MEDS: ASPIRIN 81 MG ECTAB PO SCH (08:04)
[2019-08-11] MEDS: DULOXETINE HCL 30 MG CAP PO SCH (08:04)
[2019-08-11] MEDS: FAMOTIDINE 20 MG in SYRINGE 3 ML IV SCH (08:07)
--- NOTE | 2019-08-11 08:57 | Pharmacy Report ---
Pharmacy Glycemic Short Note 2 - Date of Service August 11, 2019 - Glycemic Short BSG Results (Last 24 hours): 08/10/19 08/10/19 08/10/19 11:15 16:11 17:55 Glucose POC Glucose 219 H 157 H 140 H 08/10/19 08/11/19 08/11/19 20:59 00:18 05:29 Glucose POC Glucose 136 H 117 H 108 H 08/11/19 08/11/19 06:58 07:34 Glucose 100 H POC Glucose 101 H OUTPATIENT ANTIDIABETIC REGIMEN: * Tresiba 25 units BID, Novolog 12 units TID with meals, metformin * A1c = 16.8% ASSESSMENT: 08/11: * Patient is currently receiving an average of 51 units of insulin per day * 45 units of basal insulin * 6 units of prandial/correctional insulin * BSGs ranging 136 - 228 over the past 24hrs * Of note, patient was made NPO yesterday evening * Anticipating insulin regimen will need decreased due to NPO status for EGD * AM Fasting BSG = 108. Basal insulin is ordered per scale therefore patient will likely receive dose on lower end of scale while NPO * Post prandial BSGs are at goal. Minimal oral intake per nursing. 08/10: * Claire Rosas is a 74 yr old female admitted with chest pain and hyperglycemia * Patient was given a 10 unit IV regular insulin bolus in the ED. Fasting BSG of 177 mg/dL. * Patient takes a total of 86 units of insulin at home which is equivalent to 22 units of basal insulin BID + Novolog with CF 20 and carb ratio 6 (this is similar to weight based dosing with stress of 3). Will continue a similar regimen as inpatient since these doses are already aggressive and titrate as needed. Overnight checks with be utilized incase hyperglycemia persists. I am hesitant to correct BSG too fast due to severely elevated A1c. PLAN FOR INPATIENT GLYCEMIC CONTROL: * Hold outpatient oral diabetes medications * Basal insulin * Lantus SQ per scale BID: - 12 units for BSG less than 120 mg/dL - 16 units for BSG 120-180 mg/dL - 20 units for BSG greater than 180 mg/dL * Bolus insulin * NovoLog per scale ACHS or Q6hrs while NPO * Goal Range: Low 120 mg/dL - High 150 mg/dL * Correction Factor: 20 mg/dL/unit * Nutritional / Prandial insulin per carb ratio of 1 unit per 6 grams CHO consumed PLAN FOR DISCHARGE: * A1c = 16.8% * Goal A1c likely < 8% * I suspect medication non-compliance based on degree of A1c elevation and memory issues. * Patient reports not checking blood glucose values at home recently. Home regimen is likely appropriate for patient when taken as directed.
[2019-08-11] MEDS: INSULIN GLARGINE SOLOSTAR 100 UNITS/ML 3 ML PEN SC SCH ×2 (09:05→20:44)
--- NOTE | 2019-08-11 13:36 | History & Physical Report ---
Date of Service August 11, 2019 Assessment & Plan (1) Atypical chest pain: Discussed with DR Archer who states patient had neg stress test in Aug and with troponins neg he does not feel CP is cardiac. NO mention of incarceration or gastric volvulus on either Chest CT or a/p CT. Furthermore, CO2 normal yesterday adn today and WBC normal on admit so doubt ischemic process. Could be esophagitis or esophageal lesion or esophageal spasm. Esophageal thickening on CT n/v dysphagia--possibly--tolerating liquid so do not feel there is a food bolus at present. EGD now. Proc and risks explained which include but not limited to med reaction, bleeding, perforation, aspiration, and missed lesions. History of Present Illness Primary Care Provider: Lalito Pimentel MD [facility] Chest pain HPI Pt states CP attack at night but feels just achey now. Allergies Allergy/AdvReac Type Severity Reaction Status Date / Time cephalexin Allergy Intermediate Rash and Verified 08/09/19 21:24 itchiness Cephalosporins Allergy Intermediate Rash and Verified 08/09/19 21:24 itchiness Sulfa (Sulfonamide Allergy Intermediate Hives Verified 08/09/19 21:24 Antibiotics) Home Medications Home Medications Medication Instructions Recorded Confirmed Type nitroglycerin [Nitrostat] 0.4 mg SUBLINGUAL UD PRN #0 btl 07/27/17 08/09/19 History omega 6-avi-srz-fish oil [Fish Oil] 1,000 mg PO QAM #0 cap 07/27/17 08/09/19 History aspirin [Aspir-81] 81 mg PO DAILY #0 10/14/17 08/09/19 History acetaminophen [Acetaminophen Extra 1,000 mg PO Q8 PRN #0 tab 08/29/18 08/09/19 Rx Strength] pen needle, diabetic [BD #90 ea 08/29/18 08/09/19 Rx Ultra-Fine [place] Pen Needle] buspirone 10 mg tablet 10 mg PO TID #90 tab 01/25/19 08/09/19 Rx insulin aspart U-100 100 unit/mL 5 units SC AC #0 ml 02/22/19 08/09/19 Rx (3 mL) subcutaneous pen diclofenac sodium 1 % topical gel 2 gm TOP QID #300 gm 02/23/19 08/09/19 Rx ranitidine HCl 150 mg tablet 150 mg PO BID #180 tab 03/31/19 08/09/19 Rx cholecalciferol (vitamin D3) 25 1,000 units PO DAILY #0 tab 04/05/19 08/09/19 History mcg (1,000 unit) capsule linaclotide 145 mcg capsule 145 mcg PO QAM cap 04/05/19 08/09/19 History insulin degludec 100 unit/mL (3 15 units SQ .COMPLEX #15 ml 04/10/19 08/09/19 Rx mL) subcutaneous pen rosuvastatin 40 mg tablet 40 mg PO DAILY 04/28/19 08/09/19 History blood sugar diagnostic #100 ea 05/04/19 08/09/19 Rx metformin 1,000 mg tablet 1,000 mg PO BID #60 tab 05/08/19 08/09/19 Rx carvedilol 3.125 mg tablet 3.125 mg PO BID #180 tab 05/26/19 08/09/19 Rx lisinopril 10 mg tablet See Rx Instructions .ROUTE 06/27/19 08/09/19 Rx .COMPLEX #90 tablet duloxetine 30 mg capsule,delayed 30 mg PO QAM #30 cap 07/20/19 08/09/19 Rx release pantoprazole 40 mg tablet,delayed 40 mg PO DAILY #90 tab 08/07/19 08/09/19 Rx release Past Med/Surg History Medical History (Updated 08/11/19 @ 07:23 by Roger Archer MD) Anal stricture (Acute) Anxiety (Chronic) Anxiety disorder (Acute) ASCVD (arteriosclerotic cardiovascular disease) (Chronic) Atypical chest pain Cancer Cervical pain (neck) (Acute) Chronic constipation (Acute) Chronic pain syndrome (Chronic) Cognitive dysfunction (Acute) Constipation (Acute) Daytime somnolence (Acute) Degenerative joint disease involving multiple joints (Acute) Depression (Acute) Diabetes mellitus, type 2 Diabetic gastroparesis (Chronic) Diabetic neuropathy (Acute) Diabetic peripheral neuropathy (Acute) DJD (degenerative joint disease) of knee (Acute) Early satiety (Acute) GERD without esophagitis (Acute) HTN (hypertension) (Chronic) Hyperlipidemia (Chronic) IBS (irritable bowel syndrome) (Chronic) Impaired sensation (Acute) Lumbar spondylosis (Acute) OR (myocardial infarction) Migraine headache (Acute) Myocardial Infarction HX OF CATH [address] [place] [address], FOLLOWS WITH DR. JULES Osteoarthritis Trapezius muscle spasm (Acute) Uncontrolled type 2 diabetes mellitus with neurologic complication, with long- term current use of insulin (Chronic) Vitamin D deficiency (Acute) Surgical History Fusion of spine LUMBAR History of cardiac cath History of cataract surgery Left cataract 03/09/18. 2mg versed. no issues History of cholecystectomy Family History Other Cancer Diabetes Heart disease Hypertension Social History Preferred Language: Swedish Communication Ability: Effective Occupational Work Experience Teacher Required: No Beliefs That Will Affect Care: None Current Living Situation: Alone Other Information That Helps Us Care for You: No Feels Safe at Home: Yes Smoking Status: Never smoker Tobacco Type: cigarettes ; Do You Dip or Chew Tobacco: No ; Second Hand Exposure: No ; Hx Alcohol Use: No Hx Substance Use: No Seatbelt Use: always Physical Exam Constitutional: WD/WN, vitals as above Respiratory: normal respiratory effort, lungs clear to auscultation Cardiovascular: RRR, no murmur, no edema Gastrointestinal (Abdomen): normal bowel sounds, soft, nontender, no hepatosplenomegaly Psychiatric: A+Ox3, euthymic affect Results & Data Vital Signs (Past 12 Hours) Vital Signs Temp Pulse Resp BP Pulse Ox 08/11/19 13:27 37 C 72 18 163/80 H 96 08/11/19 11:27 36.8 C 71 16 130/74 97 08/11/19 07:12 37.0 C 83 16 121/65 96 08/11/19 03:34 36.8 C 81 18 127/84 95 Code Status & VTE Plan VTE Prophylaxis Plan VTE Prophylaxis will be ordered: Yes
--- NOTE | 2019-08-11 13:38 | Anesthesiology Consultation ---
Date of Service August 11, 2019 Assessment & Plan (1) Encounter for pre-operative examination: Chart Review Chart Review: Acceptable Risk for Surgery and Patient NOT seen in Pre Admission Testing Consults Requested none History Surgery Operation Date: 08/11/19 14:00 Proposed Procedures p Esophagogastroduodenoscopy Dr To - Lio To Height/Weight Height: 5 ft 3 in Weight: 82.9 kg Allergies Allergy/AdvReac Type Severity Reaction Status Date / Time cephalexin Allergy Intermediate Rash and Verified 08/09/19 21:24 itchiness Cephalosporins Allergy Intermediate Rash and Verified 08/09/19 21:24 itchiness Sulfa (Sulfonamide Allergy Intermediate Hives Verified 08/09/19 21:24 Antibiotics) Medications Home Medications Medication Instructions Recorded Confirmed Last Taken nitroglycerin [Nitrostat] 0.4 mg SUBLINGUAL UD PRN #0 btl 07/27/17 08/09/19 Unknown omega 4-cov-yee-fish oil [Fish Oil] 1,000 mg PO QAM #0 cap 07/27/17 08/09/19 10/22/18 aspirin [Aspir-81] 81 mg PO DAILY #0 10/14/17 08/09/19 10/22/18 acetaminophen [Acetaminophen Extra 1,000 mg PO Q8 PRN #0 tab 08/29/18 08/09/19 Unknown Strength] pen needle, diabetic [BD #90 ea 08/29/18 08/09/19 Unknown Ultra-Fine [place] Pen Needle] buspirone 10 mg tablet 10 mg PO TID #90 tab 01/25/19 08/09/19 Unknown insulin aspart U-100 100 unit/mL 5 units SC AC #0 ml 02/22/19 08/09/19 Unknown (3 mL) subcutaneous pen diclofenac sodium 1 % topical gel 2 gm TOP QID #300 gm 02/23/19 08/09/19 Unknown ranitidine HCl 150 mg tablet 150 mg PO BID #180 tab 03/31/19 08/09/19 Unknown cholecalciferol (vitamin D3) 25 1,000 units PO DAILY #0 tab 04/05/19 08/09/19 Unknown mcg (1,000 unit) capsule linaclotide 145 mcg capsule 145 mcg PO QAM cap 04/05/19 08/09/19 Unknown insulin degludec 100 unit/mL (3 15 units SQ .COMPLEX #15 ml 04/10/19 08/09/19 Unknown mL) subcutaneous pen rosuvastatin 40 mg tablet 40 mg PO DAILY 04/28/19 08/09/19 Unknown blood sugar diagnostic #100 ea 05/04/19 08/09/19 Unknown metformin 1,000 mg tablet 1,000 mg PO BID #60 tab 05/08/19 08/09/19 Unknown carvedilol 3.125 mg tablet 3.125 mg PO BID #180 tab 05/26/19 08/09/19 Unknown lisinopril 10 mg tablet See Rx Instructions .ROUTE 06/27/19 08/09/19 Unknown .COMPLEX #90 tablet duloxetine 30 mg capsule,delayed 30 mg PO QAM #30 cap 07/20/19 08/09/19 Unknown release pantoprazole 40 mg tablet,delayed 40 mg PO DAILY #90 tab 08/07/19 08/09/19 Unknown release Active Medications Generic Name Dose Route Start Last Admin Trade Name Freq PRN Reason Stop Dose Admin Acetaminophen 1,000 mg 08/09/19 23:41 08/11/19 04:00 Tylenol PO 09/08/19 23:40 1,000 mg Q8 PRN Administration Pain Aspirin 81 mg 08/10/19 09:00 08/11/19 08:04 Ecotrin Ectab PO 09/09/19 08:59 81 mg DAILY LEON Administration Buspirone HCl 10 mg 08/10/19 09:00 08/11/19 12:55 Buspar PO 09/09/19 08:59 Not Given TID LEON Carvedilol 3.125 mg 08/10/19 09:00 08/11/19 08:03 Coreg PO 09/09/19 08:59 3.125 mg BID LEON Administration Diclofenac Sodium 2 gm 08/10/19 09:00 08/11/19 11:24 Voltaren 1% Top EXT 09/09/19 08:59 Not Given QID LEON Duloxetine HCl 30 mg 08/10/19 09:00 08/11/19 08:04 Cymbalta PO 09/09/19 08:59 30 mg QAM LEON Administration Enoxaparin Sodium 40 mg 08/10/19 09:00 08/11/19 08:03 Lovenox SQ 09/09/19 08:59 40 mg Q24H LEON Administration Fish Oil 1 gm 08/10/19 09:00 08/11/19 08:04 [place]-3 (Purified Fish Oil) PO 09/09/19 08:59 Not Given QAM LEON Lactated Ringer's 1,000 mls @ 125 mls/hr 08/09/19 23:41 08/11/19 13:29 Lr IV 09/08/19 23:40 0 mls/hr .Q8H LEON Infusion Famotidine 20 mg/ Syringe 5 mls @ 2.5 mls/min 08/10/19 15:15 08/11/19 08:07 IV 09/09/19 15:14 2.5 mls/min DAILY LEON Administration Insulin Aspart 0 units 08/10/19 18:00 08/11/19 12:06 Novolog Flexpen SC 09/09/19 07:59 Not Given Q6 LEON Insulin Glargine 0 units 08/10/19 21:00 08/11/19 09:05 Lantus Solostar Pen SC 09/09/19 20:59 12 units BID LEON Administration Protocol Ioversol 116 ml 08/09/19 21:36 08/09/19 21:42 Optiray 320 125ml IV 08/13/19 21:35 116 ml ONCE PRN Administration Interaction Checking Linaclotide 144 mcg 08/10/19 09:00 08/11/19 08:04 Linzess PO 09/09/19 08:59 144 mcg QAM LEON Administration Nitroglycerin 0.5 inch 08/10/19 15:15 08/11/19 13:29 Nitro-Bid 2% EXT 09/09/19 15:14 Not Given Q6H ELON Pantoprazole Sodium 40 mg 08/10/19 09:00 08/11/19 08:04 Protonix PO 09/09/19 08:59 40 mg DAILY LEON Administration Rosuvastatin Calcium 40 mg 08/10/19 09:00 08/11/19 08:03 Crestor PO 09/09/19 08:59 40 mg DAILY LEON Administration Vitamin D 1,000 units 08/10/19 09:00 08/11/19 08:02 Vitamin D3 PO 09/09/19 08:59 1,000 units DAILY LEON Administration NPO Date Last Intake of Fluids: 08/11/19 Time Last Intake of Fluids: 07:30 Last Intake of Fluids Comment: sip of water with pills Date Last Intake of Solids: 08/07/19 Time Last Intake of Solids: 12:00 Past Medical History Medical History Anal stricture (Acute) Anxiety (Chronic) Anxiety disorder (Acute) ASCVD (arteriosclerotic cardiovascular disease) (Chronic) Atypical chest pain Cancer Cervical pain (neck) (Acute) Chronic constipation (Acute) Chronic pain syndrome (Chronic) Cognitive dysfunction (Acute) Constipation (Acute) Daytime somnolence (Acute) Degenerative joint disease involving multiple joints (Acute) Depression (Acute) Diabetes mellitus, type 2 Diabetic gastroparesis (Chronic) Diabetic neuropathy (Acute) Diabetic peripheral neuropathy (Acute) DJD (degenerative joint disease) of knee (Acute) Early satiety (Acute) GERD without esophagitis (Acute) HTN (hypertension) (Chronic) Hyperlipidemia (Chronic) IBS (irritable bowel syndrome) (Chronic) Impaired sensation (Acute) Lumbar spondylosis (Acute) CO (myocardial infarction) Migraine headache (Acute) Myocardial Infarction HX OF CATH 2012 [facility] – [place], FOLLOWS WITH DR. JULES Osteoarthritis Trapezius muscle spasm (Acute) Uncontrolled type 2 diabetes mellitus with neurologic complication, with long- term current use of insulin (Chronic) Vitamin D deficiency (Acute) Past Family History Family History Other Cancer Diabetes Heart disease Hypertension Past Surgical History Surgical History Fusion of spine LUMBAR History of cardiac cath History of cataract surgery Left cataract 03/09/18. 2mg versed. no issues History of cholecystectomy Social History Smoking Status: Never smoker tobacco type: cigarettes Do You Dip or Chew Tobacco: No Hx Alcohol Use: No Hx Substance Use: No substance use type: does not use Physical Exam Vital Signs Last Vital Signs Temp 37 C 08/11/19 13:27 Pulse 72 08/11/19 13:27 Resp 18 08/11/19 13:27 BP 163/80 H 08/11/19 13:27 Pulse Ox 96 08/11/19 13:27 Testing Laboratory Results 08/11/19 06:58 08/11/19 06:58 PT 10.0 Seconds (9.0-12.0) 08/09/19 19:42 INR 1.0 (0.9-1.1) 08/09/19 19:42 APTT 22.5 Seconds (21.0-31.0) 08/09/19 19:42 Hemoglobin A1c 16.8 % (4.5-5.6) H 08/10/19 06:43 08/11/19 08/11/19 08/11/19 11:45 07:34 05:29 POC Glucose 114 H 101 H 108 H
[2019-08-11] MEDS ORDERED: ATROPINE SULFATE 0.1 MG/ML 10ML SYR IV PRN (13:40)
[2019-08-11] MEDS ORDERED: ePHEDrine sulfate 50 MG/ML AMP IV PRN (13:40)
--- NOTE | 2019-08-11 14:00 | Post Operative Brief Note ---
Immediate Post Op Note v1 Date of Surgery August 11, 2019 Pre & Post Diagnosis Operation Date: 08/11/19 14:00 Pre-Op Diagnosis: CHEST PAIN,EPIGASTRIC PAIN Post-Op Diagnosis: erosive esophagitis I identified the patient and participated in the time-out.: Yes Procedure Operation Date: 08/11/19 14:00 Actual Procedures p Esophagogastroduodenoscopy - Lio To Surgeon Lio To Date Pitter see formal report Estimated Blood Loss 0 Findings Consistent with Post-Op Diagnosis Short segment barretts, erosive esophagitis, and HH noted. Recommend PPI bid, Carafate suspension ac and q hs, repeat EGD 6-8 weeks to biopsy Barretts and document healing.
[2019-08-11] MEDS ORDERED: LIDOCAINE HCL 2% 2 ML VIAL/AMP(20MG/ML) INFIL ONE (14:05)
[2019-08-11] MEDS ORDERED: PROPOFOL IV EMULSION 10 MG/ML 20 ML VIAL IV ONE (14:05)
--- NOTE | 2019-08-11 14:16 | Anesthesiology Progress Note ---
Date of Service August 11, 2019 Anesthesia Post Procedure Vital Signs Vital Signs: Temp Pulse Pulse Pulse Resp BP BP 08/11/19 14:04 150/80 H 08/11/19 14:00 77 16 128/106 H 08/11/19 13:27 37 C 72 18 163/80 H 08/11/19 11:27 36.8 C 71 16 130/74 08/11/19 07:12 37.0 C 83 16 121/65 08/11/19 03:34 36.8 C 81 18 127/84 08/11/19 00:00 66 08/10/19 23:02 36.8 C 77 18 142/74 H 08/10/19 19:34 36.7 C 73 18 118/75 08/10/19 17:26 67 08/10/19 15:00 36.6 C 74 19 150/88 H Pulse Ox 08/11/19 14:04 08/11/19 14:00 96 08/11/19 13:27 96 08/11/19 11:27 97 08/11/19 07:12 96 08/11/19 03:34 95 08/11/19 00:00 08/10/19 23:02 95 08/10/19 19:34 95 08/10/19 17:26 08/10/19 15:00 95 Pain Intensity Medial Chest: Pain Intensity: 4 Transfer of Care Handoff Completed per policy Notes Mental Status: alert / awake / arousable Patient Amnestic to Procedure: Yes Nausea / Vomiting: adequately controlled Pain: adequately controlled Airway Patency, RR, SpO2: stable & adequate BP & HR: stable & adequate Hydration State: stable & adequate Anesthetic Complications: no major complications apparent and Pt Satisfied with anesthetic care
--- NOTE | 2019-08-11 14:17 | GI REPORT ---
Patient Name: Claire Rosas Procedure Date: 08/11/2019 1:47 PM Date of : 1945 Admit Type: Inpatient Age: 74 Gender: Female Attending MD: Lio To MD Procedure: Upper GI endoscopy Providers: Lio To MD Referring MD: Lalito Pimentel, Roger Archer Md Indications: Dysphagia, Chest pain (non cardiac) Medicines: Monitored Anesthesia Care Complications: No immediate complications. Estimated blood loss: None. Estimated Blood Loss: Estimated blood loss: none. Procedure: Pre-Anesthesia Assessment: - The risks and benefits of the procedure and the sedation options and risks were discussed with the patient. All questions were answered and informed consent was obtained. - Patient identification and proposed procedure were verified prior to the procedure by the physician, the nurse and the traveling nurse. The procedure was verified in the procedure room. After obtaining informed consent, the endoscope was passed under direct vision. Throughout the procedure, the patient's blood pressure, pulse, and oxygen saturations were monitored continuously. The scope was introduced through the mouth, and advanced to the second part of duodenum. The upper GI endoscopy was accomplished without difficulty. The patient tolerated the procedure well. Procedure and risks explained to patient which include but not limited to medication reaction, bleeding, perforation, aspiration , and missed lesions. Judicious gas insufflation was used and gas removal done on the way out. The lumen was always visualized when advancing the scope. Prep was good. Washes and suctioning used as needed to get good visualization of the mucosa. Retroflexion to look at the fundus and cardia of the stomach and GE junction was done. Findings: A small to medium-sized hiatal hernia was present. Esophagogastric landmarks were identified: the Z-line was found at 34 cm from the incisors. There were esophageal mucosal changes consistent with short-segment Mckeon's esophagus present in the lower third of the esophagus. LA Grade B (one or more mucosal breaks greater than 5 mm, not extending between the tops of two mucosal folds) esophagitis was found. The stomach was normal. The examined duodenum was normal. The exam was otherwise without abnormality. Impression: -Small to medium-sized hiatal hernia. - Esophagogastric landmarks identified. 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 - LA Grade B erosive esophagitis. - Normal stomach. - Normal examined duodenum. - The examination was otherwise normal. - No specimens collected. Recommendation: - [facility] to [facility] care. - PPI bid, Carafate suspension ac and qhs, repeat EGD as outpt 6-8 weeks to document healing and bx for Barretts. Lio To M.D. Lio To MD 08/11/2019 2:17:00 PM This report has been signed electronically. Note Initiated On: 08/11/2019 1:47 PM Number of Addenda: 0 I attest to the content of the Intraoperative Record and orders documented therein, exceptions below {[id number]}
[2019-08-11] MEDS: SUCRALFATE 1 GM/10 ML UDC PO SCH ×2 (16:32→20:41)
[2019-08-11] MEDS ORDERED: Nursing to Pharmacy Communication ONE (17:06)
[2019-08-11] MEDS ORDERED: NITROGLYCERIN 2% OINTMENT 30GM TUBE EXT PRN (19:59)
--- NOTE | 2019-08-11 20:00 | Hospitalist Progress Note ---
Date of Service August 11, 2019 Assessment & Plan (1) Esophageal spasm: GERD with Mckeon's esophagus on EGD suspect causing distal esophageal spasm causing her chest pain -> especially with good relief with nitro paste. Will make nitro paste PRN since she is no longer requiring this. (2) Atypical chest pain: as above. She does have some exertional chest pain from history but current episode all GI related + secondary MSK. (3) Esophagitis: reflux esophagitis with Mckeon's esophagus changes -> follow up with GI/EGD as per Dr To (4) Uncontrolled type 2 diabetes mellitus with neurologic complication, with long-term current use of insulin: Hemoglobin A1C 16.8. Pharmacy consulted for medical management. Discussed dietary changes. Glucose control good while here. Will restart metformin in AM. (5) DVT prophylaxis: Lovenox 40mg SQ daily (6) Discharge planning issues: No issues anticipated. Planned discharge tomorrow if tolerating normal diet without further spasms Subjective Patient seen pre and post EGD. She reports minimal pain still present but generally has resolved and refuses further nitro paste. Symptoms resolved with nitro paste given yesterday. What chest pain is left she feels is much more MSK related. Review of Systems Review of Systems: All systems reviewed & are unremarkable except as noted in HPI & below Physical Exam Constitutional: WD/WN, vitals as above Eyes: + anicteric sclerae; normal pupil size Respiratory: normal respiratory effort, lungs clear to auscultation Cardiovascular: RRR, no murmur, no edema Gastrointestinal (Abdomen): Inspection/Auscultation: abdomen normal to inspection and normal bowel sounds; abdomen not distended Percussion/Palpa tion: abdomen soft; abdomen nontender, no guarding and abdomen not rigid Skin: no rashes, warm and dry Psychiatric: A+Ox3, euthymic affect Results & Data Vital Signs (Past 12 Hours) Vital Signs Temp Pulse Pulse Resp BP Pulse Ox 08/11/19 19:43 36.9 C 68 20 90/69 L 96 08/11/19 15:25 37.2 C 95 H 20 95 08/11/19 14:30 68 16 156/94 H 96 08/11/19 14:28 66 08/11/19 14:15 72 16 153/88 H 96 08/11/19 14:04 150/80 H 08/11/19 14:00 77 16 128/106 H 96 08/11/19 13:27 37 C 72 18 163/80 H 96 08/11/19 11:27 36.8 C 71 16 130/74 97 PG Care Time/CCT Total # of Minutes Spent Total Time Spent with Patient: Total time spent is greater than 50% in coordination of care (as documented) at patient's floor/unit and/or counseling patient:
--- NOTE | 2019-08-12 04:41 | Billing Data ---
Date of Service August 12, 2019 Coding Level of Care Code 66893 Initial Inpt Care Lvl 3
[2019-08-12] MEDS ORDERED: METFORMIN HCL ER 500 MG TABCR PO SCH (08:00)
[2019-08-12] MEDS: PANTOprazole 40 MG TAB PO SCH ×2 (08:01→08:04)
[2019-08-12] MEDS: LINACLOTIDE 72 MCG CAPSULE PO SCH (08:01)
[2019-08-12] MEDS: CHOLECALCIFEROL 1,000 UNITS TAB PO SCH (08:02)
[2019-08-12] MEDS: ROSUVASTATIN CALCIUM 20 MG TAB PO SCH (08:02)
[2019-08-12] MEDS: ASPIRIN 81 MG ECTAB PO SCH (08:02)
[2019-08-12] MEDS: OMEGA-3 (PURIFIED FISH OIL) 1 GM CAP PO SCH (08:02)
[2019-08-12] MEDS: DULOXETINE HCL 30 MG CAP PO SCH (08:02)
[2019-08-12] MEDS: DICLOFENAC SOD 1% GEL 100 GM TUBE EXT SCH ×2 (08:03→12:12)
[2019-08-12] MEDS: SUCRALFATE 1 GM/10 ML UDC PO SCH ×2 (08:03→12:12)
[2019-08-12] MEDS: carvediloL 3.125 MG TAB PO SCH (08:03)
[2019-08-12] MEDS: ENOXAPARIN INJ 40 MG/0.4 ML SYR SQ SCH (08:06)
[2019-08-12] MEDS: INSULIN GLARGINE SOLOSTAR 100 UNITS/ML 3 ML PEN SC SCH (08:07)
[2019-08-12] MEDS: INSULIN ASPART 100 UNITS/ML 3 ML PEN SC SCH ×2 (08:08→12:11)
[2019-08-12 08:27] LABS: Basophils # (auto) 0.03 K/uL (0-0.2); Basophils % (auto) 0.8 %; Eosinophils # (auto) 0.07 K/uL (0-0.5); Eosinophils % (auto) 1.8 %; Hematocrit (blood only) 38.5 % (37-47); Hemoglobin 12.9 g/dL (12.0-16.0); Immature Granulocytes # (auto) 0.01 K/uL (0.00-0.02); Immature Granulocytes % (auto) 0.3 %; Lymphocytes # (auto) 1.64 K/uL (1.2-3.4); Lymphocytes % (auto) 42.5 %; Mean Corpuscular Hemoglobin 27.8 pg (25-34); Mean Corpuscular Hgb Conc 33.5 g/dL (32-36); Mean Platelet Volume 9.5 fL (7.4-10.4); Monocytes # (auto) 0.31 K/uL (0.11-0.59); Neutrophils % (auto) 46.6 %; Platelet Count 183 K/uL (130-400); RDW Coefficient of Variation 14.1 % (11.5-14.5); RDW Standard Deviation 42.6 fL (36.4-46.3); Red Blood Count 4.64 M/uL (4.2-5.4); White Blood Count 3.86 K/uL (4.8-10.8)
[2019-08-12 08:56] LABS: Albumin Level 2.4 gm/dl (3.4-5.0); BUN Creatinine Ratio 4.7 (10-20); Calcium 8.6 mg/dl (8.5-10.1); Est GFR (African American) 80.5; Est GFR (Non-African American) 69.4; Potassium 3.8 mmol/L (3.5-5.1)
[2019-08-12 08:58] LABS: Albumin Globulin Ratio 0.7 (0.9-2); Bilirubin,Total 0.3 mg/dl (0.2-1); Globulin 3.3 gm/dl (2.5-4.0); Total Protein 5.7 gm/dl (6.4-8.2)
--- NOTE | 2019-08-12 10:55 | Gastroenterology Progress Note ---
Date of Service August 12, 2019 Assessment & Plan (1) Atypical chest pain: secondary to esophageal erosions and/or esophageal spasm. Could send patient home with gi cocktail or viscous lidocaine to use ac prn. Esophageal thickening on CT--secondary to esophageal erosions/ulcer n/v--improved dysphagia-secondary to esophageal erosions erosive esophagitis--PPI bid. Carafate suspension. EGD 6-8 weeks as outpt [facility]--did not biopsy in setting of acute inflammation and chest pain. Can be biopsied at time of outpt EGD. Will sign off. Please call for further questions. Subjective CC f/u chest pain HPI Tolerated eggs this am without chest pain. Physical Exam Gastrointestinal (Abdomen): normal bowel sounds, soft, nontender, no hepatosplenomegaly Results & Data Vital Signs (Past 12 Hours) Vital Signs Temp Pulse Pulse Resp BP Pulse Ox 08/12/19 07:45 50 L 08/12/19 07:11 36.7 C 66 16 145/73 H 98 08/12/19 04:17 36.8 C 57 L 18 138/82 96 08/11/19 23:25 66 08/11/19 23:21 37.0 C 65 18 145/96 H 95
--- NOTE | 2019-08-12 14:22 | Discharge Summary ---
Date of Service August 12, 2019 Admission HPI Per Admitting Provider CC Chest pain HPI Pt states CP attack at night but feels just achey now. Discharge Data Allergies Allergy/AdvReac Type Severity Reaction Status Date / Time cephalexin Allergy Intermediate Rash and Verified 08/09/19 21:24 itchiness Cephalosporins Allergy Intermediate Rash and Verified 08/09/19 21:24 itchiness Sulfa (Sulfonamide Allergy Intermediate Hives Verified 08/09/19 21:24 Antibiotics) Consultations 08/09/19 20:19 ED Decision to Admit Stat 08/09/19 23:41 Consult Gastroenterology Routine Procedures Performed Operation Date: 08/11/19 14:00 Actual Procedures p Esophagogastroduodenoscopy - Lio To Ordered Studies 08/09/19 20:24 CT abd pelvis IV con only Stat CT angio chest PE protocol Stat Hospital Course (1) Chest pain: (2) Epigastric pain: (3) Hyperglycemia: (4) Uncontrolled type 2 diabetes mellitus with neurologic complication, with long-term current use of insulin: Hemoglobin A1C 16.8. Pharmacy consulted for medical management. Discussed dietary changes. Glucose control good while here. Will restart metformin in AM. (5) Elevated lipase: (6) Hyponatremia: (7) Elevated serum creatinine: (8) HTN (hypertension): (9) Hyperlipidemia: (10) Anxiety: (11) Depression: (12) Chronic pain syndrome: (13) Chronic constipation: (14) Diabetic gastroparesis: Discharge Plan Discharge Items Patient Disposition: Home - Self-Care Reason For Visit: CHEST PAIN,EPIGASTRIC PAIN Discharge Diagnosis: Chest pain - suspected due to esophageal spasm Esophageal erosions/ulcer Activity: Resume your previous activity Non-emergency contact: Primary Care Provider Call non-emergency contact if: you have any medication questions, your symptoms worsen and your temperature is above 101 Follow-up/Referrals: [facility] [Provider Group] (Please, follow up at [facility]. *A nurse from this office will call you with the appointment information. The office is located in [address] of [facility], next to this [facility]. If you have any questions, call the office at [phone].) Lalito Pimentel MD [Primary Care Provider] - 08/17/19 2:30 pm (Please, follow up at Dr. Lalito Pimentel's office with his associate, Aisha Guerrero PA-C, on August 17 at 2:30 pm. *If you need to change this appointment, call their office at [phone].) Sherron Rodriguez PA-C [Physician Music Engineer] - 08/24/19 1:00 pm (Please, follow up at [facility] with Sherron Rodriguez PA-C on August 24 at 1:00 pm. *The office is located at [address] [place] [address] in [facility]. If you need to change this appointment, call the office at [phone].) Diet: Carb Consistent or DM2 Addtl Attending Provider Instructions: You were admitted to [facility] from August 11 to 2018 due to intractable chest pain. You were diagnosed with esophageal spasms due to esophageal reflux and was relieved with a GI cocktail (containing lidocaine and Maalox) and nitroglycerin patch. You underwent EGD (endoscopy) by Dr To which showed small to medium-sized hiatal hernia, Mckeon's esophagus and erosive esophagitis. To treat this recommend avoiding foods which make reflux worse including spicy, caffeinated and acidic foods (eg. tomatoes). Your pantoprazole was also increased to twice a day and please take carafate as prescribed. You will be followed up with EGD in approximately 6-8 weeks; please call the number above if you do not hear anything after approximately 1 week. Please follow up with your primary care provider approximately 1-2 weeks after discharge. Please follow up with your pharmacy appointment for your diabetes as this appears to be very uncontrolled. Information leaflets on diet are below. Pending Studies at Discharge: No Stand-Alone Forms: My [facility] [employer], Smoking Cessation Medications and DC Order Prescriptions: New lidocaine HCl 2 % solution 15 ml PO TID PRN (Reason: Mouth/reflux pain) Qty: 100 RF: 0 sucralfate [Carafate] 100 mg/mL suspension 10 ml PO ACHS 28 Days Qty: 280 RF: 0 Continued nitroglycerin [Nitrostat] 0.4 mg Tablet, Sublingual 0.4 mg Sublingual UD PRN (Reason: Chest Pain) Qty: 0 RF: 0 omega 9-pid-scb-fish oil [Fish Oil] 1,000 mg (120 mg-180 mg) Capsule 1,000 mg PO QAM Qty: 0 RF: 0 aspirin [Aspir-81] 81 mg Tablet,Delayed Release (Dr/Ec) 81 mg PO DAILY Qty: 0 RF: 0 buspirone 10 mg tablet 10 mg PO TID Qty: 90 RF: 0 diclofenac sodium 1 % gel 2 gm TOP QID Qty: 300 RF: 2 ranitidine HCl 150 mg tablet 150 mg PO BID Qty: 180 RF: 3 cholecalciferol (vitamin D3) [Vitamin D3] 1,000 unit capsule 1,000 units PO DAILY Qty: 0 RF: 0 (DME) OneTouch Verio strip See Dose Instructions .ROUTE .MEDSUPPLY Qty: 100 RF: 3 metformin 1,000 mg tablet 1,000 mg PO BID Qty: 60 RF: 3 carvedilol 3.125 mg tablet 3.125 mg PO BID Qty: 180 RF: 1 lisinopril 10 mg tablet See Rx Instructions .ROUTE .COMPLEX Qty: 90 RF: 0 duloxetine 30 mg capsule,delayed release(DR/EC) 30 mg PO QAM Qty: 30 RF: 3 rosuvastatin 40 mg tablet 40 mg PO DAILY RF: 0 Linzess 145 mcg capsule 145 mcg PO QAM RF: 0 Tresiba FlexTouch U-100 100 unit/mL (3 mL) insulin pen 15 units SQ .COMPLEX Qty: 15 RF: 3 Novolog Flexpen U-100 Insulin 100 unit/mL (3 mL) insulin pen 5 units SC AC Qty: 0 RF: 0 (DME) pen needle, diabetic [BD Ultra-Fine [place] Pen Needle] 32 gauge x 5/32" needle See Dose Instructions .ROUTE .MEDSUPPLY Qty: 90 RF: 0 acetaminophen [Acetaminophen Extra Strength] 500 mg Tablet 1,000 mg PO Q8 PRN (Reason: Pain) Qty: 0 RF: 0 Changed pantoprazole 40 mg tablet,delayed release (DR/EC) 40 mg PO BID Qty: 60 RF: 0 Discharge Orders: Discharge Order (Routine); Ordered 08/12/19 Ordered By: Roger Stinson/Other Patient Handouts: Diabetes Healthy Meals, Diabetes Eating Out, GERD Dc, Diabetes Meal Planning Admission Data Admit Date/Time: 08/11/19 07:12 Attending Provider: Roger Archer Admit Provider: Kiran Wilson Primary Care Provider: Lalito Pimentel Other Providers: Alex Mulligan Brian D. Other Interventions: Discharge Summary Assessment (RN) Last Done: 08/12/19 12:31
== END 2019-08-12 14:45 | disposition home or self-care (01) | DRG 392 ==
LOC: 2W 19:07 → ED 19:07 → SUATTDRO 23:05 → 2W 23:30

== ENCOUNTER 2019-10-25 10:36 | Observation (INO) ==
[2019-10-25] MEDS ORDERED: MoRPHine SULFATE 4 MG/ML 1 ML CARP\\VIAL IV STA ×2 (11:16→16:00)
[2019-10-25] MEDS ORDERED: LIDOCAINE 2% JELLY 5 ML TUBE EXT ONE ×2 (11:16→16:00)
[2019-10-25] MEDS ORDERED: SODIUM CHLORIDE 0.9% 1000ML 1,000 ML IV ONE (11:16)
[2019-10-25] MEDS ORDERED: HYDROCORTISONE ACETATE 25 MG SUPP PR STA (11:16)
[2019-10-25 11:44] LABS: Basophils # (auto) 0.05 K/uL (0-0.2); Basophils % (auto) 0.7 %; Eosinophils # (auto) 0.14 K/uL (0-0.5); Eosinophils % (auto) 1.9 %; Hemoglobin 13.4 g/dL (12.0-16.0); Immature Granulocytes # (auto) 0.06 K/uL (0.00-0.02); Immature Granulocytes % (auto) 0.8 %; Lymphocytes # (auto) 1.37 K/uL (1.2-3.4); Mean Corpuscular Hemoglobin 27.2 pg (25-34); Mean Corpuscular Hgb Conc 33.5 g/dL (32-36); Mean Corpuscular Volume 81.3 fL (80-100); Mean Platelet Volume 10.2 fL (7.4-10.4); Monocytes # (auto) 0.51 K/uL (0.11-0.59); Monocytes % (auto) 7.1 %; Neutrophils # (auto) 5.09 K/uL (1.4-6.5); Neutrophils % (auto) 70.5 %; Platelet Count 196 K/uL (130-400); RDW Coefficient of Variation 13.8 % (11.5-14.5); Red Blood Count 4.92 M/uL (4.2-5.4); White Blood Count 7.22 K/uL (4.8-10.8)
[2019-10-25 12:06] LABS: Alanine Aminotransferase 59 U/L (12-78); Albumin Globulin Ratio 0.9 (0.9-2); Albumin Level 3.3 gm/dl (3.4-5.0); Alkaline Phosphatase 129 U/L (45-117); Aspartate Aminotransferase 23 U/L (15-37); BUN Creatinine Ratio 18.5 (10-20); Bilirubin,Total 0.6 mg/dl (0.2-1); Blood Urea Nitrogen 22 mg/dl (7-18); Carbon Dioxide 25 mmol/L (21-32); Chloride 100 mmol/L (98-107); Est GFR (African American) 53.9; Est GFR (Non-African American) 46.5; Globulin 3.8 gm/dl (2.5-4.0); Glucose 443 mg/dl (70-99); Lipase 164 U/L (73-393); Potassium 3.7 mmol/L (3.5-5.1); Sodium 133 mmol/L (136-145); Total Protein 7.1 gm/dl (6.4-8.2)
[2019-10-25 12:16] LABS: Beta-Hydroxybutyrate 20.37 mg/dl (0.2-2.81)
--- NOTE | 2019-10-25 13:01 | XRay Report ---
XR abdomen 2V w PA chest CLINICAL HISTORY: constipation COMPARISON STUDY: 10/24/2019 FINDINGS: Direct chest reveals no free air. There is no focal pulmonary consolidation. Erect and supi ne views of the abdomen reveal multiple air-fluid levels, both colonic and small bowel. This finding can be seen in gastroenteritis. There is mild to moderate amount of stool within the rectal vault. IMPRESSION: 1. Multiple colonic and small bowel air fluid levels. This is a nonspecific finding which can be seen in an enteritis. Clinical correlation in this regard is advocated 2. Mild to moderate stool within the rectal vault. 3. No evidence of free air ACT 112: Negative or not required by law. Electronically signed by: Edis Childs M.D. 10/25/2019 12:59 PM
[2019-10-25] MEDS ORDERED: MAGNESIUM HYDROXIDE SUSP 30 ML UDC PO ONE (13:09)
[2019-10-25] MEDS ORDERED: DOCUSATE SODIUM/SENNA 50/8.6MG TAB PO STA (13:09)
[2019-10-25] MEDS ORDERED: POLYETHYLENE (MIRALAX) 17 GM PACK PO STA (13:09)
[2019-10-25] MEDS ORDERED: METOCLOPRAMIDE HCL INJ 5 MG/ML 2 ML VIAL IV STA (16:00)
--- NOTE | 2019-10-25 16:31 | Emergency Department Note ---
Entered by Daniel Hough acting as a scribe for Bhupinder Stanley MD History of Present Illness General Chief complaint: Rectal Pain Stated complaint: HEMORRHOIDS Time Seen by Provider: 10/25/19 10:51 Source: patient Limitations: no limitations History of Present Illness Onset (ago): day(s) 4 Location: buttocks Severity: similar to prior episodes Pain Consistency: + constant Maximum Pain Intensity: 10 Quality: + constant Associated symptoms: + nausea/vomiting and + other (dribbles) Treatments prior to arrival: other (constipation medication) The patient is a 74 year-old white female w/ PMHx left knee DJD, NC, CAD, Diabetes, Mckeon esophagus, GERD, ASCVD, anxiety, depression, HTN, IBS, hx of cholecystectomy, hx of EGD, hx of TKR, hx of cardiac cath, hx of heart artery stent, hx of lumbar spinal fusion, who presents to the ED w/ CC of constant rectal pain beginning 4 days ago. She notes she vomited this morning. The patient states she has a history of constipation. She states she has been taking constipation medications for years, but states it recently has not been working. She states she is unable to produce bowel movements in the past couple days. She states she has been wearing a diaper because she occasionally dribbles. She notes she has had hemorrhoids for a couple years. She states she has a hard time laying on her back. Home Medications Home Medications Medication Instructions Recorded Confirmed Type nitroglycerin [Nitrostat] 0.4 mg SUBLINGUAL UD PRN #0 btl 07/27/17 10/25/19 History omega 0-hlr-aom-fish oil [Fish Oil] 1,000 mg PO QAM #0 cap 07/27/17 10/25/19 History aspirin [Aspir-81] 81 mg PO QAM #0 10/14/17 10/25/19 History acetaminophen [Acetaminophen Extra 1,000 mg PO Q8 PRN #0 tab 08/29/18 10/25/19 Rx Strength] pen needle, diabetic [BD #90 ea 08/29/18 10/24/19 Rx Ultra-Fine [place] Pen Needle] buspirone 10 mg tablet 10 mg PO TID #90 tab 01/25/19 10/25/19 Rx diclofenac sodium 1 % topical gel 2 gm TOP QID #300 gm 02/23/19 10/25/19 Rx ranitidine HCl 150 mg tablet 150 mg PO BID #180 tab 03/31/19 10/25/19 Rx cholecalciferol (vitamin D3) 25 1,000 units PO DAILY #0 tab 04/05/19 10/25/19 History mcg (1,000 unit) capsule linaclotide 145 mcg capsule 145 mcg PO QAM cap 04/05/19 10/25/19 History rosuvastatin 40 mg tablet 40 mg PO QAM 04/28/19 10/25/19 History blood sugar diagnostic #100 ea 05/04/19 10/24/19 Rx metformin 1,000 mg tablet 1,000 mg PO BID #60 tab 05/08/19 10/25/19 Rx carvedilol 3.125 mg tablet 3.125 mg PO BID #180 tab 05/26/19 10/25/19 Rx pantoprazole 40 mg PO BID #60 tab 08/12/19 10/25/19 Rx lidocaine HCl 2 % mucosal solution 15 ml PO TID PRN #100 ml 08/17/19 10/25/19 Rx insulin aspart U-100 100 unit/mL 7 units SC AC ml 08/23/19 10/25/19 History (3 mL) subcutaneous pen insulin degludec 100 unit/mL (3 25 units SQ QAM ml 08/23/19 10/25/19 History mL) subcutaneous pen lisinopril 10 mg PO QAM 10/17/19 10/25/19 History sucralfate 1 g PO ACHS 10/17/19 10/25/19 History duloxetine 30 mg capsule,delayed 30 mg PO QAM #30 cap 10/23/19 10/25/19 Rx release hydrocortisone acetate 25 mg 25 mg MN DAILY #6 ea 10/24/19 10/25/19 Rx rectal suppository Allergies Allergy/AdvReac Type Severity Reaction Status Date / Time cephalexin Allergy Intermediate Rash and Verified 10/24/19 14:44 itchiness Cephalosporins Allergy Intermediate Rash and Verified 10/24/19 14:44 itchiness Sulfa (Sulfonamide Allergy Intermediate Hives Verified 10/24/19 14:44 Antibiotics) Past Med/Surg History Medical History Anal stricture (Chronic) Anxiety disorder (Chronic) ASCVD (arteriosclerotic cardiovascular disease) (Chronic) Cervical pain (neck) (Chronic) Chronic constipation (Chronic) Chronic pain syndrome (Chronic) Cognitive dysfunction (Chronic) Constipation (Inactive) Daytime somnolence (Chronic) Depression (Chronic) Diabetes mellitus, type 2 Diabetic gastroparesis (Chronic) Diabetic peripheral neuropathy (Chronic) DJD (degenerative joint disease) of knee (Inactive) Early satiety (Chronic) Elevated lipase Elevated serum creatinine Epigastric abdominal pain (Inactive) GERD without esophagitis (Chronic) History of esophageal dilatation HTN (hypertension) (Chronic) Hyperlipidemia (Chronic) IBS (irritable bowel syndrome) (Chronic) Lumbar spondylosis (Chronic) Migraine headache (Chronic) Myocardial Infarction 3 total within an 8 month span--HX OF CATH 2013 [facility] [place] FOLLOWS WITH DR. JULES Trapezius muscle spasm (Chronic) Uncontrolled type 2 diabetes mellitus with neurologic complication, with long- term current use of insulin (Chronic) Vitamin D deficiency (Chronic) Surgical History History of cardiac cath x3 with 3 stents total, last was 2012 History of cataract surgery bilt eyes---Left cataract 03/09/18. 2mg versed. no issues History of cholecystectomy History of colonoscopy with polypectomy History of esophagogastroduodenoscopy (EGD) History of heart artery stent x3, last was 2012 History of lumbar spinal fusion History of tooth extraction all teeth History of total hysterectomy with bilateral salpingo-oophorectomy (BSO) History of total right knee replacement (TKR) Family History Brother Myocardial infarction Sister Family history of reaction to anesthesia difficulty waking Other Cancer Diabetes Heart disease Hypertension Denies family history of Ovarian cancer Prostate cancer Breast cancer Colorectal cancer Stroke Social History Preferred Language: Taiwanese Communication Ability: Effective Visual Impairment: No Limitations 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 Casualty Insurance Required: No Beliefs That Will Affect Care: None marital status: Current Living Situation: Alone current occupational status: disabled Other Information That Helps Us Care for You: No Feels Safe at Home: Yes Safety Concerns: Feels Safe At This Time Smoking Status: Never smoker Tobacco Type: cigarettes ; Second Hand Exposure: No ; Hx Alcohol Use: No Hx Substance Use: No Childhood Exposure to Second-Hand Smoke: No caffeine: Yes Dental Care, Regularly: No Physical Activity Frequency: Does not Exercise Seatbelt Use: always Sunscreen Use: No Review of Systems See HPI for pertinent positives & negatives. and A total of 10 systems reviewed and were otherwise negative Physical Exam Vital Signs Vital Signs - 24 hr 10/25/19 10:46 10/25/19 11:46 10/25/19 11:49 Temperature 36.6 C Temperature Source Oral Pulse Rate 138 H Pulse Rate [Right Finger] 94 H Pulse Rhythm Regular Pulse Strength Normal Respiratory Rate 20 18 Respiratory Effort / Characteristics Non-Labored Non-Labored Respiratory Depth Normal Normal Respiratory Pattern Regular Blood Pressure 159/93 H Blood Pressure [Left Arm] 132/67 Blood Pressure Mean 115 Blood Pressure Mean [Left Arm] 88 Blood Pressure Position Standing Blood Pressure Position [Left Arm] Pulse Oximetry 97 96 Oxygen Delivery Method Room Air Room Air Room Air Sepsis Recent Fever Within 48 Hours No Sepsis Action Taken by Nursing No Action Required 10/25/19 12:07 10/25/19 13:22 10/25/19 15:30 Temperature Temperature Source Pulse Rate Pulse Rate [Right Finger] 110 H 98 H 90 Pulse Rhythm Pulse Strength Respiratory Rate 22 20 18 Respiratory Effort / Characteristics Non-Labored Non-Labored Spontaneous Respiratory Depth Normal Normal Respiratory Pattern Regular Blood Pressure Blood Pressure [Left Arm] 106/93 186/104 H 178/90 H Blood Pressure Mean Blood Pressure Mean [Left Arm] 97 131 119 Blood Pressure Position Blood Pressure Position [Left Arm] Lying Pulse Oximetry 100 97 97 Oxygen Delivery Method Room Air Room Air Room Air Sepsis Recent Fever Within 48 Hours Sepsis Action Taken by Nursing GENERAL: Well nourished, NAD, non-toxic. Tearful. Uncomfortable in appearance. EYE EXAM: Normal conjunctiva. PERRL, no anisocoria and EOM's grossly intact w/o pain. OROPHARYNX: Moist mucus membranes. Grossly normal dentition. NECK: Supple, no nuchal rigidity, no adenopathy, non-tender. no signs of meningismus. LUNGS: Clear to auscultation. Normal chest wall mechanics. HEART: NSR, no MRG. ABDOMEN: Abdomen soft, non-tender, normo-active bowel sounds, no masses, no rebound or guarding. BACK: No CVA TTP. SKIN: No rashes and no bruising. RECTAL: Several non-bleeding non-thrombosed hemorrhoids. UPPER EXTREMITIES: Upper extremities are grossly normal. LOWER EXTREMITIES: No pitting edema. No calf pain. NEURO EXAM: A&O x3, cranial nerves II-XII grossly intact, normal speech, moves all 4 extremities on command w/o issue. Course Course 1111: The patient was evaluated in room A10, and a complete history and physical examination were performed. 1220: I reevaluated the patient. She states she feels a little better. She is getting medicated. 1309: I reevaluated the patient. The patient is agreeable to try to have a bowel movement. 1429: The patient is getting an enema. 1559: The patient has not been able to have a full bowel movement. She states she still has pain. 1605: I discussed the patient's case with Dr. Ly - [facility] Hospitalist. She will evaluate the patient for further management Administered Medications Discontinued Medications Hydrocortisone (Anusol Hc) 25 mg MN NOW STA Stop: 10/25/19 11:17 Last Admin: 10/25/19 11:51 Dose: 25 mg Documented by: [id number] Sodium Chloride (Nss 1000ml) 1,000 mls @ 999 mls/hr IV .Q1H1M ONE Stop: 10/25/19 12:16 Last Infusion: 10/25/19 13:34 Dose: 0 mls/hr Documented by: [id number] Admin: 10/25/19 11:52 Dose: 999 mls/hr Documented by: [id number] Lidocaine HCl (Xylocaine 2% Jelly) 5 ml EXT NOW ONE Stop: 10/25/19 11:17 Last Admin: 10/25/19 11:52 Dose: 5 ml Documented by: [id number] Magnesium Hydroxide (Milk Of Magnesia) 30 ml PO NOW ONE Stop: 10/25/19 13:10 Last Admin: 10/25/19 13:19 Dose: 30 ml Documented by: [id number] Morphine Sulfate (Morphine Sulfate) 4 mg IV NOW STA Stop: 10/25/19 11:17 Last Admin: 10/25/19 11:51 Dose: 4 mg Documented by: [id number] Polyethylene Glycol (Miralax Powder Packet) 17 gm PO NOW STA Stop: 10/25/19 13:10 Last Admin: 10/25/19 13:19 Dose: 17 gm Documented by: [id number] Senna/Docusate Sodium (Senokot S) 1 tab PO NOW STA Stop: 10/25/19 13:10 Last Admin: 10/25/19 13:19 Dose: 1 tab Documented by: [id number] Medical Decision Making Differential Diagnosis Differential diagnoses includes but is not limited to gastritis, peptic ulcer disease, GERD, gallbladder disease, pancreatitis, small bowel obstruction, acute coronary syndrome, pericarditis, ischemic bowel, irritable bowel disease, irritable bowel syndrome, appendicitis, diverticulitis, malignancy, hernia, urinary tract infection, torsion, perforation, trauma, infectious. Medical Records Attestation: I reviewed the patient's medical records. Home Medications Current Medication List: was personally reviewed by me Laboratory Data Attestation: I reviewed the patient's lab results. Result diagrams: 10/25/19 11:31 10/25/19 11: Lab Results 10/25/19 10/25/19 Range/Units : 11:31 WBC 7.22 (4.8-10.8) K/uL RBC 4.92 (4.2-5.4) M/uL Hgb 13.4 (12.0-16.0) g/dL Hct 40.0 (37-47) % MCV 81.3 (80-100) fL MCH 27.2 (25-34) pg MCHC 33.5 (32-36) g/dL RDW Std Deviation 41.0 (36.4-46.3) fL RDW Coeff of Tino 13.8 (11.5-14.5) % Plt Count 196 (130-400) K/uL MPV 10.2 (7.4-10.4) fL Immature Gran % (Auto) 0.8 % Neut % (Auto) 70.5 % Lymph % (Auto) 19.0 % Marion % (Auto) 7.1 % Eos % (Auto) 1.9 % Baso % (Auto) 0.7 % Immature Gran # (Auto) 0.06 H (0.00-0.02) K/uL Neut # (Auto) 5.09 (1.4-6.5) K/uL Lymph # (Auto) 1.37 (1.2-3.4) K/uL Marion # (Auto) 0.51 (0.11-0.59) K/uL Eos # (Auto) 0.14 (0-0.5) K/uL Baso # (Auto) 0.05 (0-0.2) K/uL Sodium 133 L (136-145) mmol/L Potassium 3.7 (3.5-5.1) mmol/L Chloride 100 (98-107) mmol/L Carbon Dioxide 25 (21-32) mmol/L Anion Gap 8.0 (3-11) BUN 22 H (7-18) mg/dl Creatinine 1.17 (0.6-1.2) mg/dl Est Cr Clr Drug Dosing Not Reportable Est GFR ( Amer) 53.9 Est GFR (Non-Af Amer) 46.5 BUN/Creatinine Ratio 18.5 (10-20) Glucose 443 H* (70-99) mg/dl Calcium 9.0 (8.5-10.1) mg/dl Total Bilirubin 0.6 (0.2-1) mg/dl AST 23 (15-37) U/L ALT 59 (12-78) U/L Alkaline Phosphatase 129 H (45-117) U/L Total Protein 7.1 (6.4-8.2) gm/dl Albumin 3.3 L (3.4-5.0) gm/dl Globulin 3.8 (2.5-4.0) gm/dl Albumin/Globulin Ratio 0.9 (0.9-2) Lipase 164 (73-393) U/L Beta-Hydroxybutyric Acd 20.37 H (0.2-2.81) mg/dl Imaging Data Radiologist's Impression: Radiology results as stated below per my review and the radiologist's interpretation: XR abdomen 2V w PA chest CLINICAL HISTORY: constipation COMPARISON STUDY: 10/24/2019 FINDINGS: Direct chest reveals no free air. There is no focal pulmonary consolidation. Erect and supine views of the abdomen reveal multiple air-fluid levels, both colonic and small bowel. This finding can be seen in gastroenter itis. There is mild to moderate amount of stool within the rectal vault. IMPRESSION: 1. Multiple colonic and small bowel air fluid levels. This is a nonspecific finding which can be seen in an enteritis. Clinical correlation in this regard is advocated 2. Mild to moderate stool within the rectal vault. 3. No evidence of free air ACT 112: Negative or not required by law. Electronically signed by: Edis Childs M.D. 10/25/2019 12:59 PM Blood Pressure Blood Pressure Findings: Elevated blood pressure Blood Pressure Disposition: further management by hospitalist RUTHY Narrative The patient is a 74 year-old white female w/ PMHx left knee DJD, NC, CAD, Diabetes, Mckeon esophagus, GERD, ASCVD, anxiety, depression, HTN, IBS, hx of cholecystectomy, hx of EGD, hx of TKR, hx of cardiac cath, hx of heart artery stent, hx of lumbar spinal fusion, who presents to the ED w/ CC of constant rectal pain beginning 4 days ago. Continuous Cardiac Monitoring: An order was placed for continuous cardiac monitoring. The monitor shows a rate of 138 with a sinus tachycardia Patient was seen and evaluated the bedside. The patient did present with co ncern for rectal pain. The patient was initially tachycardic and very uncomfortable. The patient was seen and evaluated as an outpatient and presented here. The patient that her blood work completed was ordered Anusol topical lidocaine and pain medication along with IV fluids. KUB was also order ed. Reassessment the patient did have improvement in her discomfort. KUB showed a likely enteritis. The patient does not have so much abdominal pain so much as rectal pain. Patient declined rectal exam at this time. The hemorrhoids are nonthrombosed and nonbleeding. Patient has a normal white count H&H and platelet count. The patient's kidney function is fairly unremarkable. Patient does have an elevated blood glucose but the anion gap and bicarb are normal. Patient is not DKA. Patient likely has pseudohyponatremia. The patient was administered additional medications as well as an enema and stool softener. Patient did trial the bathroom for approximately an hour without a full bowel movement the patient is still having severe rectal pain. Do not believe the patient would benefit from outpatient treatment at this time he would likely return in a very short time. Patient was ordered additional pain medications as well as topical lidocaine. Patient does not have abdominal pain I do not believe that she requires a CT abdomen pelvis and I believe obstruction to be unlikely. No vomiting since that she is presented. I did speak the on- call hospitalist who agreed to further evaluate and treat the patient. I did advise Dr. Ly that the patient was scheduled for an EGD tomorrow. She does have a history of Mckeon's esophagus and esophagitis. Impression & Plan Constipation, Hemorrhoids, Rectal pain Discharge Plan Visit Data Chief Complaint: Rectal Pain Stated Complaint: HEMORRHOIDS ED Provider: Bhupinder Stanley Discharge Problem: Constipation, Hemorrhoids, Rectal pain Patient Disposition: Being Evaluated by Hospitalist Forms Stand Alone Forms: My [facility] Prescriptions Prescriptions: No Action nitroglycerin [Nitrostat] 0.4 mg Tablet, Sublingual 0.4 mg Sublingual UD PRN (Reason: Chest Pain) Qty: 0 RF: 0 omega 4-zqp-hht-fish oil [Fish Oil] 1,000 mg (120 mg-180 mg) Capsule 1,000 mg PO QAM Qty: 0 RF: 0 aspirin [Aspir-81] 81 mg Tablet,Delayed Release (Dr/Ec) 81 mg PO QAM Qty: 0 RF: 0 buspirone 10 mg tablet 10 mg PO TID Qty: 90 RF: 0 diclofenac sodium 1 % gel 2 gm TOP QID Qty: 300 RF: 2 ranitidine HCl 150 mg tablet 150 mg PO BID Qty: 180 RF: 3 cholecalciferol (vitamin D3) [Vitamin D3] 1,000 unit capsule 1,000 units PO DAILY Qty: 0 RF: 0 (DME) OneTouch Verio strip See Dose Instructions .ROUTE .MEDSUPPLY Qty: 100 RF: 3 metformin 1,000 mg tablet 1,000 mg PO BID Qty: 60 RF: 3 carvedilol 3.125 mg tablet 3.125 mg PO BID Qty: 180 RF: 1 duloxetine 30 mg capsule,delayed release(DR/EC) 30 mg PO QAM Qty: 30 RF: 3 rosuvastatin 40 mg tablet 40 mg PO QAM RF: 0 hydrocortisone acetate 25 mg suppository 25 mg MN DAILY Qty: 6 RF: 0 Linzess 145 mcg capsule 145 mcg PO QAM RF: 0 lidocaine HCl 2 % solution 15 ml PO TID PRN (Reason: Mouth/reflux pain) Qty: 100 RF: 0 Novolog Flexpen U-100 Insulin 100 unit/mL (3 mL) insulin pen 7 units SC AC RF: 0 Tresiba FlexTouch U-100 100 unit/mL (3 mL) insulin pen 25 units SQ QAM RF: 0 pantoprazole 40 mg tablet,delayed release (DR/EC) 40 mg PO BID Qty: 60 RF: 0 (DME) pen needle, diabetic [BD Ultra-Fine [place] Pen Needle] 32 gauge x 5/32" needle See Dose Instructions .ROUTE .MEDSUPPLY Qty: 90 RF: 0 acetaminophen [Acetaminophen Extra Strength] 500 mg Tablet 1,000 mg PO Q8 PRN (Reason: Pain) Qty: 0 RF: 0 sucralfate 1 gram Tablet 1 g PO ACHS RF: 0 lisinopril 10 mg tablet 10 mg PO QAM RF: 0 Referrals Referrals: Lalito Pimentel MD [Primary Care Provider] - Discharge Problem: Constipation Qualifiers: Constipation type: unspecified constipation type Qualified Code(s): K59.00 - Constipation, unspecified Hemorrhoids Qualifiers: Hemorrhoid type: unspecified Qualified Code(s): K64.9 - Unspecified hemorrhoids The scribe's documentation has been prepared under my direction and personally reviewed by me in its entirety. I confirm that the note above accurately reflects all work, treatment, procedures, and medical decision making performed by me.
--- NOTE | 2019-10-25 17:33 | History & Physical Report ---
Date of Service October 25, 2019 Assessment & Plan (1) Chronic constipation: 74-year-old female was admitted on 25 October 2019 for constipation, hemorrhoidal pain, and hyperglycemia. Chronic constipation, hemorrhoids: Seen in PCPs office yesterday for same. At home is on Linzess and Dulcolax. Last bowel movement about 5 days ago. - In ED, afebrile, resolved tachycardia, hypertensive, with normal room SpO2. WBC 7. Hemoglobin 13. Electrolytes okay (hyponatremia corrects when accounti ng for hyperglycemia). PA/Abd x-ray noted colonic small bowel air-fluid levels suggestive of enteritis. Mild to moderate stool in vault as well. - In ED, given normal saline IVF, morphine, Reglan, Anusol, topical lidocaine jelly, Senokot, as well as a single dose of MiraLAX. Attempted bowel movement in ED was unsuccessful. - On admit, will keep NPO. Does not look like she needs an NG tube at present. Keep on IVF. Pain control with morphine prn. Start a trial of GoLYTELY. Uncontrolled diabetes type 2, hyperglycemia: ED glucose 443. Patient says did not take any insulin today due to being in the ED. Bicarb 25, anion gap 8, but beta hydroxybutyric acid level is 20. At home is on metformin, Tresiba 25 units in the a.m., and aspart 7 units with meals. - On admission, will place glycemic consult. Keep on IVF for now. Mckeon's esophagitis, hiatal hernia, GERD, IBS: Has been following most recently with Dr. Carmona of gastroenterology for esophagitis. Had a planned EGD scheduled for tomorrow (). Continue home pantoprazole and sucralfate. Home ranitidine was substituted with famotidine. - Will consult GI. Elevated alkaline phosphatase: Admit AP 129. Remaining LFTs normal. Can be tracked as outpatient. Ongoing medical issues: - Hypertension, CAD, NSTEMI 2006 with stenting: Continue home aspirin, Coreg, lisinopril, rosuvastatin. Noted to be hypertensive in ED due to missing her meds today. - Anxiety, chronic abdominal pain syndrome, depression: Continue home BuSpar, duloxetine, Linzess. - CKD: Unclear background. Admit creatinine 1.17. - Vitamin D deficiency: Continue home vitamin D supplementation. - Diabetic gastroparesis, diabetic peripheral neuropathy. Code status: Full code. Diet: N.p.o. except meds & chips/sips up until midnight. Then NPO entirely after midnight. DVT prophy: SCDs. Hold chemical prophylaxis due to possible EGD tomorrow. PT/OT: Deferred. Disbo: Admit to [facility] for observation. (2) Hemorrhoids: (3) DM w/o complication type II, uncontrolled: (4) Hyperglycemia: (5) Mckeon esophagus: (6) Hiatal hernia: (7) GERD (gastroesophageal reflux disease): (8) IBS (irritable bowel syndrome): (9) Elevated alkaline phosphatase measurement: (10) HTN (hypertension): (11) CAD (coronary artery disease): (12) History of non-ST elevation myocardial infarction (NSTEMI): (13) Anxiety: (14) Chronic pain syndrome: (15) Depression: (16) Vitamin D deficiency: (17) Diabetic gastroparesis: (18) Diabetic peripheral neuropathy: History of Present Illness Primary Care Provider: Lalito Pimentel MD 74-year-old female presents the ED stating that she has ongoing constipation for the past 5 days as well as increasingly worsening rectal pain. She has a known history of chronic constipation, chronic abdominal pain syndrome, as well as diabetic gastroparesis and hemorrhoids. She was seen in her primary care office yesterday for the same. However, she says her pain has become presently uncontrolled. She notes she has not been able to take any of her routine meds including her blood pressure meds or insulin today. Says she remains hungry but has had a decreased p.o. intake during this 5 days. Did have a single small episode of nonbloody emesis this afternoon. Says on attempted bowel movement in the ED only a small amount came out. She also says that she was on track for an outpatient EGD tomorrow (October 25) by Dr. Carmona of gastroenterology for ongoing treatment of her esophagitis. She says this esophagitis causes her a little bit of chest ache that is been unchanged in the past couple of days. Otherwise, she denies any other acute concerns. - Past medical history includes hypertension, CAD, and STEMI, anxiety, chronic abdominal pain syndrome, depression, diabetes type 2, gastroparesis, peripheral neuropathy, CKD, GERD, IBS, migraine, cognitive dysfunction, anal stricture, degenerative joint disease, vitamin D deficiency, carpal tunnel syndrome - Past surgical history includes cardiac cath, cataracts, cholecystectomy, colonoscopy, EGD, coronary stent, lumbar spinal fusion, [place]/BSO, right knee replacement, esophageal dilatation, vitamin D deficiency - Social history includes former smoker. Denies alcohol use. , lives at home alone. Allergies Allergy/AdvReac Type Severity Reaction Status Date / Time cephalexin Allergy Intermediate Rash and Verified 10/24/19 14:44 itchiness Cephalosporins Allergy Intermediate Rash and Verified 10/24/19 14:44 itchiness Sulfa (Sulfonamide Allergy Intermediate Hives Verified 10/24/19 14:44 Antibiotics) Home Medications Home Medications Medication Instructions Recorded Confirmed Type nitroglycerin [Nitrostat] 0.4 mg SUBLINGUAL UD PRN #0 btl 07/27/17 10/25/19 History omega 2-vhi-ajf-fish oil [Fish Oil] 1,000 mg PO QAM #0 cap 07/27/17 10/25/19 History aspirin [Aspir-81] 81 mg PO QAM #0 10/14/17 10/25/19 History acetaminophen [Acetaminophen Extra 1,000 mg PO Q8 PRN #0 tab 08/29/18 10/25/19 Rx Strength] pen needle, diabetic [BD #90 ea 08/29/18 10/24/19 Rx Ultra-Fine [place] Pen Needle] buspirone 10 mg tablet 10 mg PO TID #90 tab 01/25/19 10/25/19 Rx diclofenac sodium 1 % topical gel 2 gm TOP QID #300 gm 02/23/19 10/25/19 Rx ranitidine HCl 150 mg tablet 150 mg PO BID #180 tab 03/31/19 10/25/19 Rx cholecalciferol (vitamin D3) 25 1,000 units PO DAILY #0 tab 04/05/19 10/25/19 History mcg (1,000 unit) capsule linaclotide 145 mcg capsule 145 mcg PO QAM cap 04/05/19 10/25/19 History rosuvastatin 40 mg tablet 40 mg PO QAM 04/28/19 10/25/19 History blood sugar diagnostic #100 ea 05/04/19 10/24/19 Rx metformin 1,000 mg tablet 1,000 mg PO BID #60 tab 05/08/19 10/25/19 Rx carvedilol 3.125 mg tablet 3.125 mg PO BID #180 tab 05/26/19 10/25/19 Rx pantoprazole 40 mg PO BID #60 tab 08/12/19 10/25/19 Rx lidocaine HCl 2 % mucosal solution 15 ml PO TID PRN #100 ml 08/17/19 10/25/19 Rx insulin aspart U-100 100 unit/mL 7 units SC AC ml 08/23/19 10/25/19 History (3 mL) subcutaneous pen insulin degludec 100 unit/mL (3 25 units SQ QAM ml 08/23/19 10/25/19 History mL) subcutaneous pen lisinopril 10 mg PO QAM 10/17/19 10/25/19 History sucralfate 1 g PO ACHS 10/17/19 10/25/19 History duloxetine 30 mg capsule,delayed 30 mg PO QAM #30 cap 10/23/19 10/25/19 Rx release hydrocortisone acetate 25 mg 25 mg AK DAILY #6 ea 10/24/19 10/25/19 Rx rectal suppository Past Med/Surg History Medical History Anal stricture (Chronic) Anxiety disorder (Chronic) ASCVD (arteriosclerotic cardiovascular disease) (Chronic) Cervical pain (neck) (Chronic) Chronic constipation (Chronic) Chronic pain syndrome (Chronic) Cognitive dysfunction (Chronic) Constipation (Inactive) Daytime somnolence (Chronic) Depression (Chronic) Diabetes mellitus, type 2 Diabetic gastroparesis (Chronic) Diabetic peripheral neuropathy (Chronic) DJD (degenerative joint disease) of knee (Inactive) Early satiety (Chronic) Elevated lipase Elevated serum creatinine Epigastric abdominal pain (Inactive) GERD without esophagitis (Chronic) History of esophageal dilatation HTN (hypertension) (Chronic) Hyperlipidemia (Chronic) IBS (irritable bowel syndrome) (Chronic) Lumbar spondylosis (Chronic) Migraine headache (Chronic) Myocardial Infarction 3 total within an 8 month span--HX OF CATH 2013 [facility] [place] FOLLOWS WITH DR. JULES Trapezius muscle spasm (Chronic) Uncontrolled type 2 diabetes mellitus with neurologic complication, with long- term current use of insulin (Chronic) Vitamin D deficiency (Chronic) Surgical History History of cardiac cath x3 with 3 stents total, last was 2012 History of cataract surgery bilt eyes---Left cataract 03/09/. 2mg versed. no issues History of cholecystectomy History of colonoscopy with polypectomy History of esophagogastroduodenoscopy (EGD) History of heart artery stent x3, last was 2012 History of lumbar spinal fusion History of tooth extraction all teeth History of total hysterectomy with bilateral salpingo-oophorectomy (BSO) History of total right knee replacement (TKR) Family History Brother Myocardial infarction Sister Family history of reaction to anesthesia difficulty waking Other Cancer Diabetes Heart disease Hypertension Denies family history of Ovarian cancer Prostate cancer Breast cancer Colorectal cancer Stroke Social History Preferred Language: Cam[place]onian Communication Ability: Effective Visual Impairment: No Limitations Hearing Ability: Normal Wireline Operator Required: No Beliefs That Will Affect Care: None marital status: Current Living Situation: Alone current occupational status: disabled Other Information That Helps Us Care for You: No Feels Safe at Home: Yes Safety Concerns: Feels Safe At This Time Smoking Status: Never smoker Tobacco Type: cigarettes ; Second Hand Exposure: No ; Hx Alcohol Use: No Hx Substance Use: No Childhood Exposure to Second-Hand Smoke: No caffeine: Yes Dental Care, Regularly: No Physical Activity Frequency: Does not Exercise Seatbelt Use: always Sunscreen Use: No Review of Systems Review of Systems: Constitutional: Denies fevers, chills, focal weakness Eyes: Denies any visual loss or diplopia ENT: Denies any ear/nose/throat pain or difficulty speaking or swallowing Respiratory: Denies any dyspnea, cough, hemoptysis Cardiovascular: Denies any chest pain or feeling of edema Gastrointestinal: Positive mild abdominal pain and constipation. Musculoskeletal: Denies any acute extremity pains, myalgias, or focal weakness Skin: Denies any known acute rashes or lesions Neuro: Denies any headache, acute focal weakness or numbness, or difficulties with speech or swallow. Physical Exam Physical Exam: GENERAL: Awake, alert, lying on her side due to hemorrhoids, but does not appear in overt distress. HENT: Normocephalic, atraumatic. Oropharynx unremarkable. EYES: Normal conjunctiva. Sclera non-icteric. NECK: Inspection normal. Supple and full ROM. No nuchal rigidity. CARDIAC: +S1S2 RRR, no murmurs. RESPIRATORY: Clear to auscultation. No wheezes or rales. Normal respiratory effort. GI: +BS, soft, non-distended. No rebound or guarding. Mild left greater than right generalized abdominal tenderness. Non-peritoneal. ANUS: Per ED account, positive non-bleeding non-thrombosed hemorrhoids though she declined a rectal exam. Deferred repeat exam for H&P. EXTREMITIES: No pedal edema or calf tenderness. Moving all extremities naturally and easily. NEURO: No gross neuro deficits. Constitutional: WD/WN, vitals as above + ill appearing Eyes: normal visual [place]aza by confrontation and + anicteric sclerae Neck: normal visual inspection and trachea midline Respiratory: normal respiratory effort, lungs clear to auscultation Cardiovascular: Rate/Rhythm: regular rate and regular rhythm Gastrointestinal (Abdomen): Inspection/Auscultation: + abdomen distended Percussion/Palpation: + abdomen tender (mild, generalized) and abdomen soft Musculoskeletal: Head/Neck/Chest: normocephalic and head atraumatic Neg for peripheral LE edema, + pedal pulses Skin: no rashes, warm and dry Neurologic: awake; not confused Speech / Cognition: normal speech Psychiatric: A+Ox3, euthymic affect Lymphatic: Exam as done by Jumana Ly DO Results & Data Vital Signs (Past 12 Hours) Vital Signs Temp Pulse Pulse Resp BP BP Pulse Ox 10/25/19 15:30 90 18 178/90 H 97 10/25/19 13:22 98 H 20 186/104 H 97 10/25/19 12:07 110 H 22 106/93 100 10/25/19 11:49 94 H 18 132/67 96 10/25/19 10:46 36.6 C 138 H 20 159/93 H 97 Laboratory Results 10/25/19 10/25/19 Range/Units 11:31 11:31 WBC 7.22 (4.8-10.8) K/uL RBC 4.92 (4.2-5.4) M/uL Hgb 13.4 (12.0-16.0) g/dL Hct 40.0 (37-47) % MCV 81.3 (80-100) fL MCH 27.2 (25-34) pg MCHC 33.5 (32-36) g/dL RDW Std Deviation 41.0 (36.4-46.3) fL RDW Coeff of Tino 13.8 (11.5-14.5) % Plt Count 196 (130-400) K/uL MPV 10.2 (7.4-10.4) fL Immature Gran % (Auto) 0.8 % Neut % (Auto) 70.5 % Lymph % (Auto) 19.0 % [place] % (Auto) 7.1 % Eos % (Auto) 1.9 % Baso % (Auto) 0.7 % Immature Gran # (Auto) 0.06 H (0.00-0.02) K/uL Neut # (Auto) 5.09 (1.4-6.5) K/uL Lymph # (Auto) 1.37 (1.2-3.4) K/uL [place] # (Auto) 0.51 (0.11-0.59) K/uL Eos # (Auto) 0.14 (0-0.5) K/uL Baso # (Auto) 0.05 (0-0.2) K/uL Sodium 133 L (136-145) mmol/L Potassium 3.7 (3.5-5.1) mmol/L Chloride 100 (98-107) mmol/L Carbon Dioxide 25 (21-32) mmol/L Anion Gap 8.0 (3-11) BUN 22 H (7-18) mg/dl Creatinine 1.17 (0.6-1.2) mg/dl Est Cr Clr Drug Dosing Not Reportable Est GFR ( Amer) 53.9 Est GFR (Non-Af Amer) 46.5 BUN/Creatinine Ratio 18.5 (10-20) Glucose 443 H* (70-99) mg/dl Calcium 9.0 (8.5-10.1) mg/dl Total Bilirubin 0.6 (0.2-1) mg/dl AST 23 (15-37) U/L ALT 59 (12-78) U/L Alkaline Phosphatase 129 H (45-117) U/L Total Protein 7.1 (6.4-8.2) gm/dl Albumin 3.3 L (3.4-5.0) gm/dl Globulin 3.8 (2.5-4.0) gm/dl Albumin/Globulin Ratio 0.9 (0.9-2) Lipase 164 (73-393) U/L Beta-Hydroxybutyric Acd 20.37 H (0.2-2.81) mg/dl Medications Administered Discontinued Medications Hydrocortisone (Anusol Hc) 25 mg AK NOW STA Stop: 10/25/19 11:17 Last Admin: 10/25/19 11:51 Dose: 25 mg Documented by: [id number] Sodium Chloride (Nss 1000ml) 1,000 mls @ 999 mls/hr IV .Q1H1M ONE Stop: 10/25/19 12:16 Last Infusion: 10/25/19 13:34 Dose: 0 mls/hr Documented by: [id number] Admin: 10/25/19 11:52 Dose: 999 mls/hr Documented by: [id number] Lidocaine HCl (Xylocaine 2% Jelly) 5 ml EXT NOW ONE Stop: 10/25/19 11:17 Last Admin: 10/25/19 11:52 Dose: 5 ml Documented by: [id number] Lidocaine HCl (Xylocaine 2% Jelly) 5 ml EXT NOW ONE Stop: 10/25/19 16:01 Last Admin: 10/25/19 16:41 Dose: 5 ml Documented by: [id number] Magnesium Hydroxide (Milk Of Magnesia) 30 ml PO NOW ONE Stop: 10/25/19 13:10 Last Admin: 10/25/19 13:19 Dose: 30 ml Documented by: [id number] Metoclopramide HCl (Reglan) 10 mg IV NOW STA Stop: 10/25/19 16:01 Last Admin: 10/25/19 16:40 Dose: 10 mg Documented by: [id number] Morphine Sulfate (Morphine Sulfate) 4 mg IV NOW STA Stop: 10/25/19 11:17 Last Admin: 10/25/19 11:51 Dose: 4 mg Documented by: [id number] Morphine Sulfate (Morphine Sulfate) 4 mg IV NOW STA Stop: 10/25/19 16:01 Last Admin: 10/25/19 16:41 Dose: 4 mg Documented by: [id number] Polyethylene Glycol (Miralax Powder Packet) 17 gm PO NOW STA Stop: 10/25/19 13:10 Last Admin: 10/25/19 13:19 Dose: 17 gm Documented by: [id number] Senna/Docusate Sodium (Senokot S) 1 tab PO NOW STA Stop: 10/25/19 13:10 Last Admin: 10/25/19 13:19 Dose: 1 tab Documented by: [id number] Code Status & VTE Plan Code Status Full code VTE Prophylaxis Plan VTE Prophylaxis will be ordered: Yes Supervising Physician Co-Signing Physician Notes Pt seen and examined by me. Denies chest pain or SOB. Tolerating PO without issue, but has minimal appetite due to distention and constipation. Agree with HPI/ROS as noted by resident See above for my exam in PE section Agree with plan as outlined above Multiple interventions for constipation, ineffective Hx of chronic constipation Golytely prep trial Pt for EGD tomorrow for routine f/u from EGD 8 weeks ago, GI c/s Did not get AM HTN or DM meds, give now + SSI Resident Activity Tracking Resident Involvement: Resident Care Provided Care Provided: Adult Hospital Medicine (1) CAD (coronary artery disease) Associated angina: angina presence unspecified Coronary Disease-Associated Artery/Lesion type: [place] artery [place] vs. transplanted heart: [place] heart Qualified Code(s): I25.10 - Atherosclerotic heart disease of [place] coronary artery without angina pectoris (2) DM w/o complication type II, uncontrolled Glycemic state: with hyperglycemia Qualified Code(s): E11.65 - Type 2 diabetes mellitus with hyperglycemia (3) GERD (gastroesophageal reflux disease) Esophagitis presence: without esophagitis Qualified Code(s): K21.9 - Gastro- esophageal reflux disease without esophagitis (4) Mckeon esophagus Mckeon's esophagus type: without dysplasia Qualified Code(s): K22.70 - Mckeon's esophagus without dysplasia (5) Hemorrhoids Hemorrhoid type: unspecified Qualified Code(s): K64.9 - Unspecified hemorrhoids (6) HTN (hypertension) Hypertension type: essential hypertension Qualified Code(s): I10 - Essential (primary) hypertension
[2019-10-25] MEDS ORDERED: NITROGLYCERIN SL 0.4 MG/TAB TAB SL PRN (18:27)
[2019-10-25] MEDS ORDERED: ACETAMINOPHEN 500 MG TAB PO PRN (18:27)
[2019-10-25] MEDS ORDERED: LAVAGE SOLUTION 4000ML PO PRN (18:27)
[2019-10-25] MEDS ORDERED: MoRPHine SULFATE 4 MG/ML 1 ML CARP\\VIAL IV PRN (18:27)
[2019-10-25] MEDS ORDERED: LIDOCAINE HCL VISCOUS SOLN 2% 15 ML UDC PO PRN (18:27)
[2019-10-25] MEDS ORDERED: PHARMACY GLYCEMIC MGMT CONSULT PRN (18:43)
[2019-10-25] MEDS: LACTATED RINGER'S 1,000 ML IV SCH (18:43)
[2019-10-25] MEDS: ONDANSETRON INJ 2 MG/ML 2 ML VIAL IV PRN (18:53)
[2019-10-25] MEDS ORDERED: INSULIN PROTOCOL GOAL RANGE ONE (19:12)
[2019-10-25] MEDS ORDERED: GLUCOSE 10 TABS/TUBE PO PRN (19:30)
[2019-10-25] MEDS ORDERED: CARBOHYDRATES FOR HYPOGLYCEMIA PO PRN (19:30)
[2019-10-25] MEDS ORDERED: DEXTROSE 50% 50 ML SYRINGE IV PRN (19:30)
[2019-10-25] MEDS ORDERED: GLUCOSE 40% GEL 15 GM TUBE PO PRN (19:30)
[2019-10-25] MEDS ORDERED: GLUCAGON FOR INJ 1 MG VIAL IM PRN (19:30)
[2019-10-25] MEDS ORDERED: MODERATE STRESS LEVEL ONE (19:45)
[2019-10-25] MEDS ORDERED: DKA GOAL RANGE 150-250 mg/dl ONE (19:45)
[2019-10-25] MEDS ORDERED: INSULIN HUMAN REGULAR IV BOLUS 8 UNITS in SYRINGE 0 ML IV ONE (20:00)
[2019-10-25] MEDS ORDERED: INSULIN REGULAR 250 UNITS in SODIUM CHLORIDE 0.9% 247.5 ML IV SCH (20:00)
[2019-10-25] MEDS ORDERED: INSULIN ASPART 100 UNITS/ML 3 ML PEN SC SCH (21:00)
[2019-10-25] MEDS: PANTOprazole 40 MG TAB PO SCH (22:04)
[2019-10-25] MEDS: DICLOFENAC SOD 1% GEL 100 GM TUBE EXT SCH (22:05)
[2019-10-25] MEDS: lisinopriL 10 MG TAB PO SCH (22:05)
[2019-10-25] MEDS: FAMOTIDINE 20 MG TAB PO SCH (22:05)
[2019-10-25] MEDS: SUCRALFATE 1 GM TAB PO SCH (22:05)
[2019-10-25] MEDS: carvediloL 3.125 MG TAB PO SCH (22:05)
[2019-10-26] MEDS: ONDANSETRON INJ 2 MG/ML 2 ML VIAL IV PRN (00:39)
[2019-10-26] MEDS: LACTATED RINGER'S 1,000 ML IV SCH ×2 (02:45→10:46)
[2019-10-26 06:15] LABS: Estimated Average Glucose 378 mg/dl; Hemoglobin A1C 14.8 % (4.5-5.6)
[2019-10-26 06:22] LABS: BUN Creatinine Ratio 20.4 (10-20); Calcium 8.2 mg/dl (8.5-10.1); Creatinine Clr Calc Pharmacy 63.9 ml/min; Est GFR (African American) 85.4; Est GFR (Non-African American) 73.7; Magnesium 1.9 mg/dl (1.8-2.4); Phosphorus 2.4 mg/dl (2.5-4.9); Potassium 3.7 mmol/L (3.5-5.1)
[2019-10-26] MEDS ORDERED: Nursing to Pharmacy Communication ONE ×2 (07:14→15:58)
[2019-10-26] MEDS: DICLOFENAC SOD 1% GEL 100 GM TUBE EXT SCH ×4 (08:43→21:49)
[2019-10-26] MEDS ORDERED: INSULIN GLARGINE SOLOSTAR 100 UNITS/ML 3 ML PEN SC ONE (09:00)
[2019-10-26] MEDS ORDERED: HYDROCORTISONE ACETATE 25 MG SUPP PR SCH (09:00)
--- NOTE | 2019-10-26 10:18 | Pharmacy Report ---
Pharmacy Glycemic Short Note 2 - Date of Service October 26, 2019 - Glycemic Short BSG Results (Last 24 hours): 10/25/19 10/25/19 10/25/19 11:31 18:21 19:44 Glucose 443 H* POC Glucose 404 H* 362 H* 10/25/19 10/25/19 10/25/19 20:18 21:17 22:16 Glucose POC Glucose 354 H* 303 H* 223 H 10/25/19 10/26/19 10/26/19 23:15 00:16 01:30 Glucose POC Glucose 215 H 177 H 153 H 10/26/19 10/26/19 10/26/19 02:33 03:44 04:50 Glucose POC Glucose 139 H 147 H 130 H 10/26/19 10/26/19 10/26/19 05:26 05:49 07:05 Glucose 147 H POC Glucose 122 H 130 H OUTPATIENT ANTIDIABETIC REGIMEN: * Tresiba 20 units SQ qAM (recently decreased due to hypo) * Novolog 7 units SQ TID with meals * Metformin 1000 mg PO BID * A1c 14.8 % (10/26/19) ASSESSMENT: * 74 yo T2DM female presenting with hyperglycemia and rectal pain secondary to chronic constipation and hemorrhoids * Patient is known to the glycemic service from Jul 2019 admission. Although we have limited data from that admission, she required 34-51 units of SQ insulin per day. A1c indicates poor outpatient control, however A1c has decreased from 16.8% in Jul to 14.8%. * Patient was started on IV insulin infusion for severe hyperglycemia, BSG of 443 mg/dL. BSG corrected quickly. Infusion was held early this morning. Will start SQ insulin at this time. * Lantus 20 units SQ x 1. I had intended for this to be a 20% dose reduction in home dose due to NPO status, however patients home dose was recently decreased from 25 units daily to 20 units. Med rec was incorrect. * Utilize Novolog CF/CR of 25/8 based on bolus needs from previous admission PLAN FOR INPATIENT GLYCEMIC CONTROL: * Hold outpatient oral diabetes medications * Basal insulin * Lantus 20 units SQ qAM x 1 * Bolus insulin * NovoLog per scale ACHS or Q6hrs while NPO * Goal Range: Low 120 mg/dL - High 150 mg/dL * Correction Factor: 25 mg/dL/unit * Nutritional / Prandial insulin per carb ratio of 1 unit per 8 grams CHO consumed DISCHARGE PLANS: * A1c of 14.8% is above goal. Of note, A1c has decreased from 16.8% on 08/10/19 * CDE met with patient. Will attempt to arrange f/u with Endocrinology * Consider addition of Novolog sliding scale ACHS - doses to be determined, not enough BSG data at this time
--- NOTE | 2019-10-26 11:33 | Billing Data ---
Date of Service October 25, 2019 Coding Level of Care Code 48992 OBS Care - Level 3
[2019-10-26] MEDS ORDERED: INSULIN ASPART 100 UNITS/ML 3 ML PEN SC SCH (12:00)
[2019-10-26] MEDS ORDERED: SOD PHOSPHATE/SOD BIPHOSPHATE ENEMA 132 ML BTL PR ONE (12:15)
[2019-10-26] MEDS ORDERED: ONDANSETRON INJ 2 MG/ML 2 ML VIAL IV ONE (14:07)
[2019-10-26] MEDS ORDERED: PROPOFOL IV EMULSION 10 MG/ML 20 ML VIAL IV ONE (14:07)
[2019-10-26] MEDS ORDERED: LIDOCAINE HCL 2% 2 ML VIAL/AMP(20MG/ML) INFIL ONE (14:07)
[2019-10-26] MEDS: LINACLOTIDE 72 MCG CAPSULE PO SCH (15:34)
[2019-10-26] MEDS: PANTOprazole 40 MG TAB PO SCH ×2 (15:34→21:48)
[2019-10-26] MEDS: SUCRALFATE 1 GM TAB PO SCH ×3 (15:34→21:48)
[2019-10-26] MEDS: DULOXETINE HCL 30 MG CAP PO SCH (15:34)
[2019-10-26] MEDS: ASPIRIN 81 MG ECTAB PO SCH (15:34)
[2019-10-26] MEDS: CHOLECALCIFEROL 1,000 UNITS 25 MCG TAB PO SCH (15:35)
[2019-10-26] MEDS: lisinopriL 10 MG TAB PO SCH (15:35)
[2019-10-26] MEDS: FAMOTIDINE 20 MG TAB PO SCH ×2 (15:35→21:48)
[2019-10-26] MEDS: ROSUVASTATIN CALCIUM 20 MG TAB PO SCH (15:35)
[2019-10-26] MEDS: OMEGA-3 (PURIFIED FISH OIL) 1 GM CAP PO SCH (15:35)
[2019-10-26] MEDS: carvediloL 3.125 MG TAB PO SCH ×2 (15:42→21:48)
--- NOTE | 2019-10-26 16:21 | Consultation Report ---
DATE OF CONSULTATION: 10/26/2019 REASON FOR EVALUATION: Constipation, hemorrhoids, esophagitis. HISTORY OF PRESENT ILLNESS: The patient is a 74-year-old who was seen by Dr. To in July for an EGD for heartburn type symptoms and dysphagia and atypical chest pain. She was found to have esophagitis and was treated with proton pump inhibitor, famotidine and Carafate. It was also suspected that she might have a short segment Mckeon's but with the esophagitis it was unclear and a followup EGD once she was treated for the esophagitis was recommended. The patient does have chronic constipation and has been on Linzess and Dulcolax at home. At the time of hospitalization, her last bowel movement was 5 days prior. She was getting uncomfortable. A CAT scan of the abdomen performed on admission just showed a lot of stool and some air fluid levels in the small bowel and colon. Since being hospitalized, she has been given some Reglan and Senokot, but she is still having difficulty moving her bowels. PAST MEDICAL HISTORY: Remarkable for diabetes, hiatal hernia, esophageal reflux, irritable bowel, hypertension, coronary artery disease, non-ST elevation AK in the past, anxiety, depression, vitamin D deficiency, peripheral neuropathy from diabetes and probable gastroparesis. MEDICATIONS: Extensive per list. ALLERGIES: INCLUDE CEPHALEXIN AND SULFONAMIDE. FAMILY HISTORY: Brother had an AK. Other family members have had cancer, diabetes, heart disease and hypertension. SOCIAL HISTORY: The patient has disability, lives alone. She is a . Never smoked. Does not drink any alcohol. REVIEW OF SYSTEMS: Positive for abdominal pain and constipation. Remainder is negative. PHYSICAL EXAMINATION: GENERAL: The patient is overweight, in no acute distress. VITAL SIGNS: Show elevated blood pressure. ABDOMEN: Shows no surgical scars, nontender. RECTAL: Performed during her upper endoscopy while sedated shows some posterior anal skin tags. There is anal stenosis from probable some scarring. The is large amount of soft mushy stool in the rectal vault, but no signs of impaction. The anal canal was dilated digitally during the exam to help open up the anal canal, so that stool can evacuate little more easily. An EGD was performed to assess her esophagus, stomach and the beginning of the small intestine. She did have grade D esophagitis. Biopsies of the GE junction were performed to rule out Mckeon's. The remaining stomach and small intestine were normal. IMPRESSION: The patient has anal stenosis which was dilated digitally during sedation for her EGD. Rectum showed a large amount of soft stool, which we will hopefully be able to evacuate more easily now, I recommend that she go on MiraLax 4 times a day to help get her bowels moving and stay moving. We will await the biopsies of her distal esophagus and continue PPI and Pepcid for her esophagitis.
--- NOTE | 2019-10-26 17:00 | Hospitalist Progress Note ---
Date of Service October 26, 2019 Assessment & Plan (1) Chronic constipation: - Chronic issue for patient -- on Linzess and Dulcolax at home. Last BM was 5 days prior to admission. - KUB showed enteritis and mild to moderate stool in vault. - Did have large BM in the ER after receiving enema; will give repeat fleet enema following EGD this afternoon. - Continue home Linzess; Miralax QID scheduled per GI. - S/p EGD today, showed esophagitis, Nix's esophagus, small hiatal hernia. Also had anal stenosis that was dilated digitally during sedation for EGD, will likely help with passage of stool. (2) Hemorrhoids: - Hydrocortisone 25 mg MN daily scheduled. (3) DM w/o complication type II, uncontrolled: - BG was 443 on admission -- likely related to not using insulin at home. - A1C is >14; on Tresiba 25 units qAM, Metformin and Aspart 7 units ac. - Pharm consulted for glycemic management. - H/o poorly controlled DM -- recommend follow up with endocrinology. - hospital educator discussed lifestyle changes with the patient. 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 - Continue home PPI and Carafate. - Famotidine BID as inpatient. (5) Hiatal hernia: - Small hiatal hernia noted on EGD. (6) GERD (gastroesophageal reflux disease): - PPI, Carafate and H2RA. (7) IBS (irritable bowel syndrome): - IBS-C; continue Linzess as noted above. (8) Elevated alkaline phosphatase measurement: - Monitor as outpatient. (9) HTN (hypertension): - Continue Lisinopril, Coreg as prescribed. (10) CAD (coronary artery disease): - NSTEMI 2005 with stenting. - Continue home aspirin, Coreg, lisinopril, rosuvastatin. (11) History of non-ST elevation myocardial infarction (NSTEMI): - As noted above. (12) Anxiety: - Continue Buspar TID. (13) Chronic pain syndrome: - Continue Cymbalta as prescribed. (14) Depression: - Continue Cymbalta as prescribed. (15) Vitamin D deficiency: - Continue home vitamin D supplementation. (16) Diabetic gastroparesis: - Monitored as outpatient; follows with GI. (17) Diabetic peripheral neuropathy: - Not currently on gabapentin. DVT ppx: Heparin BID. Dispo: Med/surg for treatment of constipation. Admission and Anticipated Discharge Date Admission Date: October 26, 2019 Supervising Physician Co-Signing Physician Notes Attending Attestation - Chart reviewed in detail, care plan d/w JAVI Alicea. I agree w/ the hathaway components of her documentation. 74yo female - presented with rectal pain, constipation, emesis, and abd discomfort. s/p EGD today - results noted. Anticipate d/c home tomorrow. Labs/vitals remain stable. Roger Vazquez MD Subjective Pt. had large BM last evening in the ER but has not had any further BMs today. She c/o nausea, denies vomiting. Is currently NPO but does have a good appetite. Review of Systems Review of Systems: All systems reviewed & are unremarkable except as noted in HPI & below Constitutional: + fatigue and + weakness; no fever, no chills and no anorexia Respiratory: no cough, no dyspnea and no dyspnea on exertion Cardiovascular: no chest pain, no palpitations and no edema Gastrointestinal: + abdominal pain, + bloating, + nausea and + constipation; no vomiting and no diarrhea/loose stools Genitourinary: no difficulty urinating Musculoskeletal: no back pain and no joint pain Integumentary: no non-healing lesions Physical Exam Physical Exam: General: Resting comfortably HEENT: NC/AT; PERRLA with EOMI; [place] conjunctiva, MMM. No erythema of posterior pharynx Neck: Supple and nontender Cardiac: RRR Lungs: CTA bilaterally Abdomen: Bowel normoactive X 4; Nontender to palpation Extremities: Warm. No edema present Neuro: No focal weakness Skin: No rash Results & Data ([facility]) Vital Signs (Past 12 Hours) Vital Signs Temp Pulse Resp BP Pulse Ox 10/26/19 15:38 36.7 C 75 16 137/77 99 10/26/19 07:40 36.4 C L 66 16 131/79 98 Laboratory Results 10/26/19 10/26/19 10/26/19 Range/Units 11:49 07:05 05:49 Sodium (136-145) mmol/L Potassium (3.5-5.1) mmol/L Chloride (98-107) mmol/L Carbon Dioxide (21-32) mmol/L Anion Gap (3-11) BUN (7-18) mg/dl Creatinine (0.6-1.2) mg/dl Est Cr Clr Drug Dosing ml/min Est GFR ( Amer) Est GFR (Non-Af Amer) BUN/Creatinine Ratio (10-20) Glucose (70-99) mg/dl POC Glucose 197 H 130 H 122 H (70-99) mg/dl Estimat Average Glucose mg/dl Hemoglobin A1c (4.5-5.6) % Calcium (8.5-10.1) mg/dl Phosphorus (2.5-4.9) mg/dl Magnesium (1.8-2.4) mg/dl 10/26/19 10/26/19 10/26/19 Range/Units 05:26 05:26 04:50 Sodium 138 (136-145) mmol/L Potassium 3.7 (3.5-5.1) mmol/L Chloride 105 (98-107) mmol/L Carbon Dioxide 28 (21-32) mmol/L Anion Gap 5.0 (3-11) BUN 16 (7-18) mg/dl Creatinine 0.80 D (0.6-1.2) mg/dl Est Cr Clr Drug Dosing 63.9 ml/min Est GFR ( Amer) 85.4 Est GFR (Non-Af Amer) 73.7 BUN/Creatinine Ratio 20.4 H (10-20) Glucose 147 H (70-99) mg/dl POC Glucose 130 H (70-99) mg/dl Estimat Average Glucose 378 mg/dl Hemoglobin A1c 14.8 H (4.5-5.6) % Calcium 8.2 L (8.5-10.1) mg/dl Phosphorus 2.4 L (2.5-4.9) mg/dl Magnesium 1.9 (1.8-2.4) mg/dl 10/26/19 10/26/19 10/26/19 Range/Units 03:44 02:33 01:30 Sodium (136-145) mmol/L Potassium (3.5-5.1) mmol/L Chloride (98-107) mmol/L Carbon Dioxide (21-32) mmol/L Anion Gap (3-11) BUN (7-18) mg/dl Creatinine (0.6-1.2) mg/dl Est Cr Clr Drug Dosing ml/min Est GFR ( Amer) Est GFR (Non-Af Amer) BUN/Creatinine Ratio (-) Glucose (70-99) mg/dl POC Glucose 147 H 139 H 153 H (70-99) mg/dl Estimat Average Glucose mg/dl Hemoglobin A1c (4.5-5.6) % Calcium (8.5-10.1) mg/dl Phosphorus (2.5-4.9) mg/dl Magnesium (1.8-2.4) mg/dl 10/26/19 10/25/19 10/25/19 Range/Units 00:16 23:15 22:16 Sodium (136-145) mmol/L Potassium (3.5-5.1) mmol/L Chloride (98-107) mmol/L Carbon Dioxide (21-32) mmol/L Anion Gap (3-11) BUN (7-18) mg/dl Creatinine (0.6-1.2) mg/dl Est Cr Clr Drug Dosing ml/min Est GFR ( Amer) Est GFR (Non-Af Amer) BUN/Creatinine Ratio (06-04) Glucose (70-99) mg/dl POC Glucose 177 H 215 H 223 H (70-99) mg/dl Estimat Average Glucose mg/dl Hemoglobin A1c (4.5-5.6) % Calcium (8.5-10.1) mg/dl Phosphorus (2.5-4.9) mg/dl Magnesium (1.8-2.4) mg/dl 10/25/19 10/25/19 10/25/19 Range/Units 21:17 20:18 19:44 Sodium (136-145) mmol/L Potassium (3.5-5.1) mmol/L Chloride (98-107) mmol/L Carbon Dioxide (21-32) mmol/L Anion Gap (3-11) BUN (7-18) mg/dl Creatinine (0.6-1.2) mg/dl Est Cr Clr Drug Dosing ml/min Est GFR ( Amer) Est GFR (Non-Af Amer) BUN/Creatinine Ratio (-20) Glucose (70-99) mg/dl POC Glucose 303 H* 354 H* 362 H* (70-99) mg/dl Estimat Average Glucose mg/dl Hemoglobin A1c (4.5-5.6) % Calcium (8.5-10.1) mg/dl Phosphorus (2.5-4.9) mg/dl Magnesium (1.8-2.4) mg/dl 10/25/19 Range/Units 18:21 Sodium (136-145) mmol/L Potassium (3.5-5.1) mmol/L Chloride (98-107) mmol/L Carbon Dioxide (21-32) mmol/L Anion Gap (3-11) BUN (7-18) mg/dl Creatinine (0.6-1.2) mg/dl Est Cr Clr Drug Dosing ml/min Est GFR ( Amer) Est GFR (Non-Af Amer) BUN/Creatinine Ratio (10-20) Glucose (70-99) mg/dl POC Glucose 404 H* (70-99) mg/dl Estimat Average Glucose mg/dl Hemoglobin A1c (4.5-5.6) % Calcium (8.5-10.1) mg/dl Phosphorus (2.5-4.9) mg/dl Magnesium (1.8-2.4) mg/dl PG Care Time/CCT Total # of Minutes Spent Total Time Spent with Patient: Total time spent is greater than 50% in coordination of care (as documented) at patient's floor/unit and/or counseling patient: Coding Level of Care Code 35748 Subseq Hosp Care Lvl 3 Diagnoses Chronic constipation K59.09 Hemorrhoids K64.9 Hemorrhoid type: unspecified DM w/o complication type II, uncontrolled E11.65 Glycemic state: with hyperglycemia Nix esophagus K22.70 Nix's esophagus type: without dysplasia Hiatal hernia K44.9 GERD (gastroesophageal reflux disease) K21.9 Esophagitis presence: without esophagitis IBS (irritable bowel syndrome) K58.9 Elevated alkaline phosphatase measurement R74.8 HTN (hypertension) I10 Hypertension type: essential hypertension CAD (coronary artery disease) I25.10 Associated angina: angina presence unspecified Coronary Disease-Associated Artery/Lesion type: [place] artery [place] vs. transplanted heart: [place] heart History of non-ST elevation myocardial infarction (NSTEMI) I25.2 Anxiety F41.9 Chronic pain syndrome G89.4 Depression F32.9 Vitamin D deficiency E55.9 Diabetic gastroparesis E11.43; K31.84 Diabetic peripheral neuropathy E11.42 (1) CAD (coronary artery disease) Associated angina: angina presence unspecified Coronary Disease-Associated Artery/Lesion type: [place] artery [place] vs. transplanted heart: [place] heart Qualified Code(s): I25.10 - Atherosclerotic heart disease of [place] coronary artery without angina pectoris (2) DM w/o complication type II, uncontrolled Glycemic state: with hyperglycemia Qualified Code(s): E11.65 - Type 2 diabetes mellitus with hyperglycemia (3) GERD (gastroesophageal reflux disease) Esophagitis presence: without esophagitis Qualified Code(s): K21.9 - Gastro- esophageal reflux disease without esophagitis (4) Nix esophagus Nix's esophagus type: without dysplasia Qualified Code(s): K22.70 - Nix's esophagus without dysplasia (5) Hemorrhoids Hemorrhoid type: unspecified Qualified Code(s): K64.9 - Unspecified hemorrhoids (6) HTN (hypertension) Hypertension type: essential hypertension Qualified Code(s): I10 - Essential (primary) hypertension
[2019-10-26] MEDS ORDERED: SOD PHOSPHATE/SOD BIPHOSPHATE ENEMA 132 ML BTL PR PRN (18:19)
[2019-10-26] MEDS: POLYETHYLENE (MIRALAX) 17 GM PACK PO SCH ×2 (18:27→21:47)
[2019-10-26] MEDS: INSULIN ASPART 100 UNITS/ML 3 ML PEN SC SCH ×2 (18:33→21:54)
[2019-10-26] MEDS: HEPARIN SOD 5,000 UNIT/0.5 ML VIAL SQ SCH (21:55)
[2019-10-27] MEDS ORDERED: INSULIN GLARGINE SOLOSTAR 100 UNITS/ML 3 ML PEN SC SCH (09:00)
[2019-10-27] MEDS: INSULIN ASPART 100 UNITS/ML 3 ML PEN SC SCH ×2 (09:01→12:58)
[2019-10-27] MEDS: SUCRALFATE 1 GM TAB PO SCH ×2 (09:03→12:59)
[2019-10-27] MEDS: carvediloL 3.125 MG TAB PO SCH (09:04)
[2019-10-27] MEDS: HEPARIN SOD 5,000 UNIT/0.5 ML VIAL SQ SCH (09:09)
[2019-10-27] MEDS: DICLOFENAC SOD 1% GEL 100 GM TUBE EXT SCH (09:13)
--- NOTE | 2019-10-27 09:29 | Pharmacy Report ---
Pharmacy Glycemic Short Note 2 - Date of Service October 27, 2019 - Glycemic Short BSG Results (Last 24 hours): 10/26/19 10/26/19 10/26/19 11:49 17:02 20:46 POC Glucose 197 H 148 H 157 H 10/27/19 08:19 POC Glucose 136 H OUTPATIENT ANTIDIABETIC REGIMEN: * Tresiba 20 units SQ qAM (recently decreased due to hypo) * Novolog 7 units SQ TID with meals * Metformin 1000 mg PO BID * A1c 14.8 % (10/26/19) ASSESSMENT: 10/26 * Claire received 28 units of insulin yesterday, 20 of this being basal * She has been started on a diet * Fasting = 136 mg/dL; will continue with same basal dose as this seems appropriate * Postprandial BSGs < 160 mg/dL; will continue same Novolog parameters for now 10/25 * 74 yo T2DM female presenting with hyperglycemia and rectal pain secondary to chronic constipation and hemorrhoids * Patient is known to the glycemic service from Jul 2019 admission. Although we have limited data from that admission, she required 34-51 units of SQ insulin per day. A1c indicates poor outpatient control, however A1c has decreased from 16.8% in Jul to 14.8%. * Patient was started on IV insulin infusion for severe hyperglycemia, BSG of 443 mg/dL. BSG corrected quickly. Infusion was held early this morning. Will start SQ insulin at this time. * Lantus 20 units SQ x 1. I had intended for this to be a 20% dose reduction in home dose due to NPO status, however patients home dose was recently decreased from 25 units daily to 20 units. Med rec was incorrect. * Utilize Novolog CF/CR of 25/8 based on bolus needs from previous admission PLAN FOR INPATIENT GLYCEMIC CONTROL: * Continue to hold outpatient oral diabetes medications * Basal insulin - ongoing order entered * Lantus 20 units SQ qAM * Bolus insulin - no change * NovoLog per scale ACHS or Q6hrs while NPO * Goal Range: Low 120 mg/dL - High 150 mg/dL * Correction Factor: 25 mg/dL/unit * Nutritional / Prandial insulin per carb ratio of 1 unit per 8 grams CHO consumed DISCHARGE PLANS: * A1c of 14.8% is above goal. Of note, A1c has decreased from 16.8% on 08/10/19 * CDE met with patient. Will attempt to arrange f/u with Endocrinology * Continue Lantus 20 units qAM, Novolog 7 units with meals and metformin 1 gm BID * If addition of Novolog sliding scale is warranted, consider the following: * BSG 151-175, give 1 unit * BSG 176-200, give 2 units * BSG 201-225, give 3 units * BSG 226-250, give 4 units * BSG 251-275, give 5 units * BSG 276-300, give 6 units * BSG 301-325, give 7 units * BSG 326-350, give 8 units * BSG above 350, give 9 units and call physician
[2019-10-27] MEDS: POLYETHYLENE (MIRALAX) 17 GM PACK PO SCH (10:29)
[2019-10-27] MEDS: ROSUVASTATIN CALCIUM 20 MG TAB PO SCH (10:30)
[2019-10-27] MEDS: ASPIRIN 81 MG ECTAB PO SCH (10:31)
[2019-10-27] MEDS: LINACLOTIDE 72 MCG CAPSULE PO SCH (10:31)
[2019-10-27] MEDS: DULOXETINE HCL 30 MG CAP PO SCH (10:31)
[2019-10-27] MEDS: FAMOTIDINE 20 MG TAB PO SCH (10:32)
[2019-10-27] MEDS: OMEGA-3 (PURIFIED FISH OIL) 1 GM CAP PO SCH (10:32)
[2019-10-27] MEDS: lisinopriL 10 MG TAB PO SCH (10:33)
[2019-10-27] MEDS: PANTOprazole 40 MG TAB PO SCH (10:33)
[2019-10-27] MEDS: CHOLECALCIFEROL 1,000 UNITS 25 MCG TAB PO SCH (10:33)
--- NOTE | 2019-10-27 14:02 | Discharge Summary ---
Date of Service October 27, 2019 Admission HPI Per Admitting Provider 74-year-old female presents the ED stating that she has ongoing constipation for the past 5 days as well as increasingly worsening rectal pain. She has a known history of chronic constipation, chronic abdominal pain syndrome, as well as diabetic gastroparesis and hemorrhoids. She was seen in her primary care office yesterday for the same. However, she says her pain has become presently uncontrolled. She notes she has not been able to take any of her routine meds including her blood pressure meds or insulin today. Says she remains hungry but has had a decreased p.o. intake during this 5 days. Did have a single small episode of nonbloody emesis this afternoon. Says on attempted bowel movement in the ED only a small amount came out. She also says that she was on track for an outpatient EGD tomorrow (October 25) by Dr. Carmona of gastroenterology for ongoing treatment of her esophagitis. She says this esophagitis causes her a little bit of chest ache that is been unchanged in the past couple of days. Otherwise, she denies any other acute concerns. - Past medical history includes hypertension, CAD, and STEMI, anxiety, chronic abdominal pain syndrome, depression, diabetes type 2, gastroparesis, peripheral neuropathy, CKD, GERD, IBS, migraine, cognitive dysfunction, anal stricture, degenerative joint disease, vitamin D deficiency, carpal tunnel syndrome - Past surgical history includes cardiac cath, cataracts, cholecystectomy, colonoscopy, EGD, coronary stent, lumbar spinal fusion, [place]/BSO, right knee replacement, esophageal dilatation, vitamin D deficiency - Social history includes former smoker. Denies alcohol use. , lives at home alone. Admission Exam Per Admitting Provider GENERAL: Awake, alert, lying on her side due to hemorrhoids, but does not appear in overt distress. HENT: Normocephalic, atraumatic. Oropharynx unremarkable. EYES: Normal conjunctiva. Sclera non-icteric. NECK: Inspection normal. Supple and full ROM. No nuchal rigidity. CARDIAC: +S1S2 RRR, no murmurs. RESPIRATORY: Clear to auscultation. No wheezes or rales. Normal respiratory effort. GI: +BS, soft, non-distended. No rebound or guarding. Mild left greater than right generalized abdominal tenderness. Non-peritoneal. ANUS: Per ED account, positive non-bleeding non-thrombosed hemorrhoids though she declined a rectal exam. Deferred repeat exam for H&P. EXTREMITIES: No pedal edema or calf tenderness. Moving all extremities naturally and easily. NEURO: No gross neuro deficits. Principal Diagnosis Constipation, Hyperglycemia Discharge Exam General: Resting comfortably HEENT: NC/AT; PERRLA with EOMI; [place] conjunctiva, MMM. No erythema of posterior pharynx Neck: Supple and nontender Cardiac: RRR Lungs: CTA bilaterally Abdomen: Bowel normoactive X 4; Nontender to palpation Extremities: Warm. No edema present Neuro: No focal weakness Skin: No rash Discharge Data Allergies Allergy/AdvReac Type Severity Reaction Status Date / Time cephalexin Allergy Intermediate Rash and Verified 11/03/19 10:36 itchiness Cephalosporins Allergy Intermediate Rash and Verified 11/03/19 10:36 itchiness Sulfa (Sulfonamide Allergy Intermediate Hives Verified 11/03/19 10:36 Antibiotics) Consultations 10/25/19 16:16 ED Decision to Admit Stat 10/25/19 18:27 Consult Gastroenterology Routine Procedures Performed Operation Date: 10/26/19 13:00 <No data on this case meets the specified criteria> Ordered Studies KUB 10/23 Chest/Abd XR 10/24 Hospital Course (1) Chronic constipation: Chronic issue for patient -- on Linzess and Dulcolax at home. Last BM was 5 days prior to admission. KUB showed enteritis and mild to moderate stool in vault. Had multiple BMs on 10/25 following digital dilation for anal stenosis during sedation for EGD. Also received Miralax QID following procedure. Continued home Linzess; Miralax QID scheduled per GI. S/p EGD on 10/25, showed esophagitis, Nix's esophagus, small hiatal hernia. Recommend to continue home Linzess along with Miralax 1-2 times daily scheduled. (2) Hemorrhoids: Hydrocortisone 25 mg ID daily scheduled. Bowel regimen as noted above. (3) DM w/o complication type II, uncontrolled: BG was 443 on admission -- likely related to not using insulin at home. A1C is >14; on Tresiba 25 units qAM, Metformin and Aspart 7 units ac. Pharm consulted for glycemic management. H/o poorly controlled DM -- recommend follow up with endocrinology, nurse navigator will arrange appt. general car yard supervisor discussed lifestyle changes with the patient. (4) Nix esophagus: S/p EGD on 10/25, showed nix's esophagus. Continued home PPI and Carafate, H2RA. F/u with EGD to discuss esophageal biopsy results. (5) Hiatal hernia: Small hiatal hernia noted on EGD. (6) GERD (gastroesophageal reflux disease): PPI, Carafate and H2RA. (7) IBS (irritable bowel syndrome): IBS-C; continued Linzess as noted above. (8) Elevated alkaline phosphatase measurement: Monitor as outpatient. (9) HTN (hypertension): Continued Lisinopril, Coreg as prescribed. (10) CAD (coronary artery disease): NSTEMI 2005 with stenting. Continued home aspirin, Coreg, lisinopril, rosuvastatin. (11) History of non-ST elevation myocardial infarction (NSTEMI): As noted above. (12) Anxiety: Continued Buspar TID. (13) Chronic pain syndrome: Continued Cymbalta as prescribed. (14) Depression: Continued Cymbalta as prescribed. (15) Vitamin D deficiency: Continued home vitamin D supplementation. (16) Diabetic gastroparesis: Monitored as outpatient; follows with GI. (17) Diabetic peripheral neuropathy: Not currently on gabapentin. Discharged to home on 10/27/19. Total Time Total Time Spent Total Time Spent (In Minutes): >30 minutes Total Time Includes: Examination of the Patient, Discharge Planning, Medication Reconciliation, Communication With Other Providers and Other Discharge Plan Discharge Items Patient Disposition: Home - Self-Care Reason For Visit: CONSTIPATION,HYPERGLYCEMIA Discharge Diagnosis: Constipation, Hyperglycemia Condition on Discharge: Fair Goals: You have been hospitalized for an acute medical problem. During your stay at [facility], we have made an effort to correct the problem that brought you to the hospital while keeping you as comfortable as possible. Medications were used to bring your condition under control and your discharge instructions will include directions for any medications you should take after leaving the hospital. Please make sure you see your Primary Care Provider as part of your follow up plan. Activity: As commented below Exercise/Sports: Gradually increase as tolerated Non-emergency contact: Primary Care Provider and [place] Machine Operator Helper Call non-emergency contact if: you have any medication questions, your symptoms worsen and you have a fever Follow-up/Referrals: Lalito Pimentel MD [Primary Care Provider] - 11/03/19 11:30 am Adin Forrest [Physician] - 11/29/19 8:20 am (With Dr. To) Diet: Carb Consistent or DM2 and Heart Healthy Addtl Attending Provider Instructions: 1. Esophagitis * Please continue protonix twice daily, ranitidine twice daily and carafate four times daily. * Please follow up with PCP in 1-2 weeks to discuss biopsy results. * Please schedule appointment with Dr. Forrest in 3-4 weeks. 2. Constipation * Please continue Linzess as prescribed. * Please take Miralax once daily SCHEDULED; increase dose to twice daily if needed for constipation. 3. Type II Diabetes Mellitus, very uncontrolled * Hemoglobin A1C is greater than 14%. * Please continue home medication regimen. * You will need to follow up with an roving frame tender for outpatient management -- this appointment will be scheduled by the nurse navigator. Pending Studies at Discharge: No Stand-Alone Forms: My [facility] Medications and DC Order Prescriptions: New polyethylene glycol 3350 [Miralax] 17 gram powder in packet 17 gm PO DAILY Qty: 1 RF: 0 Continued nitroglycerin [Nitrostat] 0.4 mg Tablet, Sublingual 0.4 mg Sublingual UD PRN (Reason: Chest Pain) Qty: 0 RF: 0 omega 6-ugn-xal-fish oil [Fish Oil] 1,000 mg (120 mg-180 mg) Capsule 1,000 mg PO QAM Qty: 0 RF: 0 aspirin [Aspir-81] 81 mg Tablet,Delayed Release (Dr/Ec) 81 mg PO QAM Qty: 0 RF: 0 buspirone 10 mg tablet 10 mg PO TID Qty: 90 RF: 0 diclofenac sodium 1 % gel 2 gm TOP QID Qty: 300 RF: 2 ranitidine HCl 150 mg tablet 150 mg PO BID Qty: 180 RF: 3 cholecalciferol (vitamin D3) [Vitamin D3] 1,000 unit capsule 1,000 units PO DAILY Qty: 0 RF: 0 (DME) OneTouch Verio strip See Dose Instructions .ROUTE .MEDSUPPLY Qty: 100 RF: 3 metformin 1,000 mg tablet 1,000 mg PO BID Qty: 60 RF: 3 carvedilol 3.125 mg tablet 3.125 mg PO BID Qty: 180 RF: 1 duloxetine 30 mg capsule,delayed release(DR/EC) 30 mg PO QAM Qty: 30 RF: 3 rosuvastatin 40 mg tablet 40 mg PO QAM RF: 0 hydrocortisone acetate 25 mg suppository 25 mg ID DAILY Qty: 6 RF: 0 Linzess 145 mcg capsule 145 mcg PO QAM RF: 0 lidocaine HCl 2 % solution 15 ml PO TID PRN (Reason: Mouth/reflux pain) Qty: 100 RF: 0 Novolog Flexpen U-100 Insulin 100 unit/mL (3 mL) insulin pen 7 units SC AC RF: 0 Tresiba FlexTouch U-100 100 unit/mL (3 mL) insulin pen 25 units SQ QAM RF: 0 pantoprazole 40 mg tablet,delayed release (DR/EC) 40 mg PO BID Qty: 60 RF: 0 (DME) pen needle, diabetic [BD Ultra-Fine [place] Pen Needle] 32 gauge x 5/32" needle See Dose Instructions .ROUTE .MEDSUPPLY Qty: 90 RF: 0 acetaminophen [Acetaminophen Extra Strength] 500 mg Tablet 1,000 mg PO Q8 PRN (Reason: Pain) Qty: 0 RF: 0 sucralfate 1 gram Tablet 1 g PO ACHS RF: 0 lisinopril 10 mg tablet 10 mg PO QAM RF: 0 Discharge Orders: Discharge Order (Routine); Ordered 10/27/19 Ordered By: Evelyn Stinson/Other Patient Handouts: Constipation Admission Data Admit Date/Time: 10/25/19 17:21 Attending Provider: Roger Vazquez Admit Provider: Kiran Wilson Primary Care Provider: Lalito Pimentel Other Providers: Adin Forrest Other Interventions: Discharge Summary Assessment (RN) Last Done: 10/27/19 13:01 DC Date/Time DO NOT enter until pt leaves facility: 10/27/19 13:23 Supervising Physician Co-Signing Physician Notes Attending Attestation and Discharge Note: Pt seen/examined, chart reviewed in detail, discharge care plan d/w JAVI Alicea. I agree w/ the hathaway components of her discharge documentation. 74yo female - presented with rectal pain, constipation, emesis, and abd discomfort. s/p EGD with findings suggestive of Nix's esophagus as well as esophagitis. Constipation/hemorrhoids treated appropriately. Labs/vitals remained stable while here. Discharge exam: gen - NAD mouth - MMM heart - RRR, s1 s2 lungs - CTA b/l abd - soft NT ND BS+ ext - no edema Roger Vazquez MD Coding Level of Care Code D/C Day Management >30 mins Diagnoses Chronic constipation K59.09 Hemorrhoids K64.9 Hemorrhoid type: unspecified DM w/o complication type II, uncontrolled E11.65 Glycemic state: with hyperglycemia Nix esophagus K22.70 Nix's esophagus type: without dysplasia Hiatal hernia K44.9 GERD (gastroesophageal reflux disease) K21.9 Esophagitis presence: without esophagitis IBS (irritable bowel syndrome) K58.9 Elevated alkaline phosphatase measurement R74.8 HTN (hypertension) I10 Hypertension type: essential hypertension CAD (coronary artery disease) I25.10 Associated angina: angina presence unspecified Coronary Disease-Associated Artery/Lesion type: [place] artery [place] vs. transplanted heart: [place] heart History of non-ST elevation myocardial infarction (NSTEMI) I25.2 Anxiety F41.9 Chronic pain syndrome G89.4 Depression F32.9 Vitamin D deficiency E55.9 Diabetic gastroparesis E11.43; K31.84 Diabetic peripheral neuropathy E11.42
== END 2019-10-27 13:23 | disposition home or self-care (01) | DRG 395 ==
LOC: 3N 10:36 → ED 10:36 → 3N 17:00 → SUATTDRO 17:21

== ENCOUNTER 2019-11-06 08:32 | Observation (INO) ==
[2019-11-06] MEDS ORDERED: KETOROLAC TROMETHAMINE 15 MG/ML VIAL IV STA (08:43)
[2019-11-06] MEDS ORDERED: ONDANSETRON INJ 2 MG/ML 2 ML VIAL IV STA (08:43)
[2019-11-06] MEDS ORDERED: MoRPHine SULFATE 2 MG/ML CARP IV STA ×2 (08:43→11:08)
--- NOTE | 2019-11-06 08:51 | Emergency Department Note ---
ED Provider Note NAME: SHIRA CUNNINGHAM AGE: 74 SEX: F : 1945 ARRIVES VIA: Ambulance INFORMANT: [Patient][ems] ED PROVIDER(S): [Oliver Mccullough MD] CHIEF COMPLAINT: Right leg and hip pain HISTORY OF PRESENT ILLNESS: The patient is a 74-year-old female who presents with right knee/hip and leg pain that has been going on for 3 weeks but has worsened in the last 3 days. Patient states the pain is severe at a 10/10. The pain is made worse with any movement and she now cannot walk. She came by ambulance. The patient states the pain runs from her hip down to her knee. There has been no fall, she has not had fever, there has been no abdominal pain or urinary complaints, no diarrhea. She denies any rash. The patient states that she did have her right knee replaced many years ago, she has no history of pain like this. She describes the pain as shooting, it is severe, it is sharp and unbearable. Looking at old records, the patient was in our hospital 10 days ago and then discharged with a diagnosis of constipation. She was seen by her primary doctor 3 days ago for a checkup after her discharge. She admits that she had some pain when she saw her doctors office but things worsened after the visit. REVIEW OF SYSTEMS: See HPI for pertinent positives and negatives. A total of ten systems were reviewed and were otherwise negative. PMHx/PSHx: See Below SOCIAL HISTORY: See Below. PHYSICAL EXAM: GENERAL: Patient is in significant distress from pain, tearful. HEENT: No acute trauma, normocephalic atraumatic, mucous membranes moist, no nasal congestion, no scleral icterus. NECK: No stridor, no adenopathy, no meningismus, trachea is midline. LUNGS: Clear to auscultation bilaterally, no wheeze, no rhonchi, breath sounds equal. HEART: Without murmurs gallops or rubs, regular rate and rhythm. ABDOMEN: Soft, nontender, bowel sounds positive, no hernias, no peritonitis. EXTREMITIES: No cyanosis or edema. The patient has no gross deformity to the right lower extremity. There is no rash. She has a strong distal dorsalis pedis pulse. Movement of her knee, her hip, palpation of her thigh and hip cause pain. No swelling to the thigh NEUROLOGIC: Oriented x 3, no acute motor or sensory deficits, no focal weakness. SKIN: No rash, no jaundice, no diaphoresis. DIFFERENTIAL DIAGNOSIS: Muscular strain, fracture, dislocation, DVT, joint effusion, infection, soft tissue injury, vascular compromise, as well as other pathologies. EMERGENCY DEPARTMENT COURSE/PROCEDURES: Continuous Cardiac Monitoring: An order was placed for continuous cardiac monitoring. The monitor shows a rate of 64 with normal sinus rhythm. MEDICAL DECISION MAKING: Of note, for purposes of potential transfer, there is no history to suggest a coronavirus infection. There is no leukocytosis or concerning anemia. Sugar was high at 300, no kidney failure. Magnesium quite low at 1.4. No concerning liver enzyme elevation. Films of the right femur and right hip/pelvis were done, films of the right knee were done. There was no acute fracture in the pelvis, femur or hip. The right knee film showed a small effusion, no fracture. An ultrasound of the right leg was done, there was no evidence for DVT. By exam, there was no cellulitis. The patient received IV saline, she was given IV magnesium, 2 bags were given. She received oral magnesium, she was given IV Toradol and IV Zofran, she was given IV morphine for pain, a second dose of IV morphine was given. The cause for the pain is unclear but certainly may be musculoskeletal. Her lower magnesium value I suppose may be contributing to some muscle spasm. The patient states that she is unable to be discharged back to her home, she lives alone. She cannot ambulate or care for herself. The patient is being seen by case management. She may be sent to a rehab facility versus hospitalized at our facility. Her placement is currently pending. At this point, she seems to be resting comfortably. Of note, the patient had her care assumed by Dr. Stanley at the change of shift, please see his notes. Impression & Plan Pain of right leg, Hypomagnesemia, Unable to ambulate Past Med/Surg History Medical History Anal stricture (Chronic) Anxiety disorder (Chronic) ASCVD (arteriosclerotic cardiovascular disease) (Chronic) Cervical pain (neck) (Chronic) Chronic pain syndrome (Chronic) Cognitive dysfunction (Chronic) Constipation (Inactive) Daytime somnolence (Chronic) Depression (Chronic) Diabetes mellitus, type 2 Diabetic gastroparesis (Chronic) Diabetic peripheral neuropathy (Chronic) DJD (degenerative joint disease) of knee (Inactive) Early satiety (Chronic) Elevated lipase Elevated serum creatinine Epigastric abdominal pain (Inactive) GERD without esophagitis (Chronic) History of esophageal dilatation HTN (hypertension) (Chronic) Hyperlipidemia (Chronic) IBS (irritable bowel syndrome) (Chronic) Lumbar spondylosis (Chronic) Migraine headache (Chronic) Myocardial Infarction 3 total within an 8 month span--HX OF CATH 2013 [facility] [place], FOLLOWS WITH DR. JULES Trapezius muscle spasm (Chronic) Uncontrolled type 2 diabetes mellitus with neurologic complication, with long-term current use of insulin (Chronic) Vitamin D deficiency (Chronic) Surgical History History of cardiac cath x3 with 3 stents total, last was 2012 History of cataract surgery bilt eyes---Left cataract 03/09/18. 2mg versed. no issues History of cholecystectomy History of colonoscopy with polypectomy History of esophagogastroduodenoscopy (EGD) History of heart artery stent x3, last was 2012 History of lumbar spinal fusion History of tooth extraction all teeth History of total hysterectomy with bilateral salpingo-oophorectomy (BSO) History of total right knee replacement (TKR) Family History Brother Myocardial infarction Sister Family history of reaction to anesthesia difficulty waking Other Cancer Diabetes Heart disease Hypertension Denies family history of Ovarian cancer Prostate cancer Breast cancer Colorectal cancer Stroke Social History Preferred Language: Occitan Communication Ability: Effective Visual Impairment: No Limitations Hearing Ability: Normal Retirement Plan Counselor Required: No Beliefs That Will Affect Care: None marital status: / Current Living Situation: Alone current occupational status: disabled Feels Safe at Home: Yes Smoking Status: Never smoker Tobacco Type: cigarettes ; Second Hand Exposure: No ; Hx Alcohol Use: No Hx Substance Use: No Childhood Exposure to Second-Hand Smoke: No caffeine: Yes Dental Care, Regularly: No Physical Activity Frequency: Does not Exercise Seatbelt Use: always Sunscreen Use: No Results & Data (ED) Vital Signs Vital Signs - 24 hr 11/06/19 08:37 11/06/19 09:14 11/06/19 11:01 Temperature 36.6 C Temperature Source Oral Pulse Rate 83 71 65 Pulse Rate from SpO2 Sensor 71 65 Respiratory Rate 26 H 18 17 Blood Pressure 208/104 H 181/85 H 158/97 H Blood Pressure Mean 138 106 128 Pulse Oximetry 100 96 97 Oxygen Delivery Method Room Air Room Air Sepsis Recent Fever Within 48 Hours No Sepsis New/Unexplained Change in Mental Status No Sepsis Action Taken by Nursing No Action Required 11/06/19 11:26 11/06/19 13:02 11/06/19 14:21 Temperature Temperature Source Pulse Rate 68 69 64 Pulse Rate from SpO2 Sensor 68 65 Respiratory Rate 20 28 H 16 Blood Pressure 150/81 H 155/80 H 173/88 H Blood Pressure Mean 100 117 105 Pulse Oximetry 96 96 98 Oxygen Delivery Method Room Air Sepsis Recent Fever Within 48 Hours Sepsis New/Unexplained Change in Mental Status Sepsis Action Taken by Snf Medications Current Medication List: was personally reviewed by me Laboratory Data Attestation: I reviewed the patient's lab results. Result diagrams: 11/06/19 09:11 11/06/19 09:11 Lab Results 11/06/19 11/06/19 Range/Units 09:11 09:11 WBC 6.83 (4.8-10.8) K/uL RBC 4.60 (4.2-5.4) M/uL Hgb 12.8 (12.0-16.0) g/dL Hct 38.2 (37-47) % MCV 83.0 (80-100) fL MCH 27.8 (25-34) pg MCHC 33.5 (32-36) g/dL RDW Std Deviation 42.9 (36.4-46.3) fL RDW Coeff of Tino 14.1 (11.5-14.5) % Plt Count 221 (130-400) K/uL MPV 9.8 (7.4-10.4) fL Immature Gran % (Auto) 0.1 % Neut % (Auto) 71.2 % Lymph % (Auto) 21.2 % Douglas % (Auto) 5.3 % Eos % (Auto) 1.5 % Baso % (Auto) 0.7 % Immature Gran # (Auto) 0.01 (0.00-0.02) K/uL Neut # (Auto) 4.86 (1.4-6.5) K/uL Lymph # (Auto) 1.45 (1.2-3.4) K/uL Douglas # (Auto) 0.36 (0.11-0.59) K/uL Eos # (Auto) 0.10 (0-0.5) K/uL Baso # (Auto) 0.05 (0-0.2) K/uL Sodium 138 (136-145) mmol/L Potassium 3.9 (3.5-5.1) mmol/L Chloride 107 (98-107) mmol/L Carbon Dioxide 22 (21-32) mmol/L Anion Gap 9.0 (3-11) BUN 13 (7-18) mg/dl Creatinine 0.88 (0.6-1.2) mg/dl Est Cr Clr Drug Dosing 59.2 ml/min Est GFR ( Amer) 76.1 Est GFR (Non-Af Amer) 65.6 BUN/Creatinine Ratio 14.2 (10-20) Glucose 300 H (70-99) mg/dl Calcium 9.2 (8.5-10.1) mg/dl Magnesium 1.4 L (1.8-2.4) mg/dl Total Bilirubin 0.3 (0.2-1) mg/dl AST 12 L (15-37) U/L ALT 24 (12-78) U/L Alkaline Phosphatase 90 (45-117) U/L Total Creatine Kinase 21 L (26-192) U/L Total Protein 6.6 (6.4-8.2) gm/dl Albumin 3.0 L (3.4-5.0) gm/dl Globulin 3.6 (2.5-4.0) gm/dl Albumin/Globulin Ratio 0.8 L (0.9-2) Administered Medications Discontinued Medications Magnesium Sulfate/Dextrose (Magnesium Sulfate / D5w) 1 gm in 100 mls @ 100 mls/hr IV ONE ONE Stop: 11/06/19 11:03 Last Infusion: 11/06/19 12:17 Dose: 0 mls/hr Documented by: [id number] Admin: 11/06/19 11:00 Dose: 100 mls/hr Documented by: [id number] Magnesium Sulfate/Dextrose (Magnesium Sulfate / D5w) 1 gm in 100 mls @ 100 mls/hr IV ONE ONE Stop: 11/06/19 11:50 Last Infusion: 11/06/19 13:17 Dose: 0 mls/hr Documented by: [id number] Admin: 11/06/19 12:17 Dose: 100 mls/hr Documented by: [id number] Ketorolac Tromethamine (Toradol) 15 mg IV NOW STA Stop: 11/06/19 08:44 Last Admin: 11/06/19 08:52 Dose: 15 mg Documented by: [id number] Magnesium Oxide (Mag-Ox) 400 mg PO NOW STA Stop: 11/06/19 10:05 Last Admin: 11/06/19 10:59 Dose: 400 mg Documented by: [id number] Morphine Sulfate (Morphine Sulfate) 2 mg IV NOW STA Stop: 11/06/19 08:44 Last Admin: 11/06/19 08:52 Dose: 2 mg Documented by: [id number] Morphine Sulfate (Morphine Sulfate) 2 mg IV NOW STA Stop: 11/06/19 11:09 Last Admin: 11/06/19 11:25 Dose: 2 mg Documented by: [id number] Ondansetron HCl (Zofran) 4 mg IV NOW STA Stop: 11/06/19 08:44 Last Admin: 11/06/19 08:52 Dose: 4 mg Documented by: [id number] Imaging Data Radiologist's Impression: XR femur RT 2V routine, XR hip RT 2V w pelvis CLINICAL HISTORY: Right hip and leg pain. COMPARISON STUDY: None. FINDINGS: Partially visualized right total knee arthroplasty. No fracture or dislocation within the right hip or right femur. The visualized pelvic bones are intact. Mild osteoarthritis within the bilateral hips. The sacrum appears intact. IMPRESSION: No fracture or dislocation within the pelvis, hips, or right femur. XR knee RT 3V CLINICAL HISTORY: Right knee pain. COMPARISON STUDY: Right knee 07/05/2015. FINDINGS: The bones are osteopenic. No acute fracture or dislocation within the right knee. This a right total knee arthroplasty. The hardware appears intact. No abnormal periprosthetic lucency. Trace knee effusion. Soft tissues are unremarkable. IMPRESSION: 1. No fracture or dislocation within the right knee. 2. Trace knee effusion. 3. Right total knee arthroplasty. US venous doppler LE RT CLINICAL HISTORY: 74 years-old Female presenting with right lower extremity pain and swelling, unable to move leg well, concern for DVT. TECHNIQUE: Real-time grayscale and color and spectral Doppler ultrasound imaging of the veins of the right lower extremity was performed. Compression and augmentation were also utilized. COMPARISON: 07/25/2014. FINDINGS: RIGHT: Common femoral vein: Patent. Greater saphenous vein (superficial): Patent. Deep femoral vein: Patent. Femoral vein: Patent. Popliteal vein: Patent. Calf veins: Patent. Other: None. IMPRESSION: No evidence of deep venous thrombosis. Blood Pressure Blood Pressure Findings: Elevated blood pressure Blood Pressure Disposition: Referred to patients primary care provider Discharge Plan Visit Data Chief Complaint: Leg Injury/Pain ED Provider: Oliver Mccullough Discharge Problem: Pain of right leg, Hypomagnesemia, Unable to ambulate Patient Disposition: Still a Patient Condition: Good Forms Stand Alone Forms: [facility] [employer] Prescriptions Prescriptions: No Action nitroglycerin [Nitrostat] 0.4 mg Tablet, Sublingual 0.4 mg Sublingual UD PRN (Reason: Chest Pain) Qty: 0 RF: 0 omega 3-owa-sku-fish oil [Fish Oil] 1,000 mg (120 mg-180 mg) Capsule 1,000 mg PO QAM Qty: 0 RF: 0 aspirin [Aspir-81] 81 mg Tablet,Delayed Release (Dr/Ec) 81 mg PO QAM Qty: 0 RF: 0 buspirone 10 mg tablet 10 mg PO TID Qty: 90 RF: 0 diclofenac sodium 1 % gel 2 gm TOP QID Qty: 300 RF: 2 ranitidine HCl 150 mg tablet 150 mg PO BID Qty: 180 RF: 3 cholecalciferol (vitamin D3) [Vitamin D3] 1,000 unit capsule 1,000 units PO QAM Qty: 0 RF: 0 (DME) OneTouch Verio strip See Dose Instructions .ROUTE .MEDSUPPLY Qty: 100 RF: 3 metformin 1,000 mg tablet 1,000 mg PO BID Qty: 60 RF: 3 carvedilol 3.125 mg tablet 3.125 mg PO BID Qty: 180 RF: 1 duloxetine 30 mg capsule,delayed release(DR/EC) 30 mg PO QAM Qty: 30 RF: 3 rosuvastatin 40 mg tablet 40 mg PO QAM RF: 0 Linzess 145 mcg capsule 145 mcg PO QAM RF: 0 lidocaine HCl 2 % solution 15 ml PO TID PRN (Reason: Mouth/reflux pain) Qty: 100 RF: 0 Novolog Flexpen U-100 Insulin 100 unit/mL (3 mL) insulin pen 7 units SC AC RF: 0 Tresiba FlexTouch U-100 100 unit/mL (3 mL) insulin pen 25 units SQ QAM RF: 0 pantoprazole 40 mg tablet,delayed release (DR/EC) 40 mg PO BID Qty: 60 RF: 0 polyethylene glycol 3350 [Miralax] 17 gram powder in packet 17 gm PO DAILY Qty: 1 RF: 0 hydrocortisone acetate 25 mg suppository 25 mg [place] DAILY PRN (Reason: .) RF: 0 (DME) pen needle, diabetic [BD Ultra-Fine [place] Pen Needle] 32 gauge x 5/32" needle See Dose Instructions .ROUTE .MEDSUPPLY Qty: 90 RF: 0 acetaminophen [Acetaminophen Extra Strength] 500 mg Tablet 1,000 mg PO Q8 PRN (Reason: Pain) Qty: 0 RF: 0 sucralfate 1 gram Tablet 1 g PO ACHS RF: 0 lisinopril 10 mg tablet 10 mg PO QAM RF: 0 Referrals Referrals: Lalito Pimentel MD [Primary Care Provider] -
[2019-11-06 09:28] LABS: Basophils # (auto) 0.05 K/uL (0-0.2); Basophils % (auto) 0.7 %; Eosinophils % (auto) 1.5 %; Hematocrit (blood only) 38.2 % (37-47); Hemoglobin 12.8 g/dL (12.0-16.0); Immature Granulocytes # (auto) 0.01 K/uL (0.00-0.02); Immature Granulocytes % (auto) 0.1 %; Lymphocytes # (auto) 1.45 K/uL (1.2-3.4); Lymphocytes % (auto) 21.2 %; Mean Corpuscular Hemoglobin 27.8 pg (25-34); Mean Corpuscular Hgb Conc 33.5 g/dL (32-36); Mean Platelet Volume 9.8 fL (7.4-10.4); Monocytes # (auto) 0.36 K/uL (0.11-0.59); Monocytes % (auto) 5.3 %; Neutrophils # (auto) 4.86 K/uL (1.4-6.5); Neutrophils % (auto) 71.2 %; Platelet Count 221 K/uL (130-400); RDW Coefficient of Variation 14.1 % (11.5-14.5); RDW Standard Deviation 42.9 fL (36.4-46.3); White Blood Count 6.83 K/uL (4.8-10.8)
[2019-11-06 09:57] LABS: Albumin Globulin Ratio 0.8 (0.9-2); BUN Creatinine Ratio 14.2 (10-20); Bilirubin,Total 0.3 mg/dl (0.2-1); Calcium 9.2 mg/dl (8.5-10.1); Creatinine Clr Calc Pharmacy 59.2 ml/min; Est GFR (African American) 76.1; Est GFR (Non-African American) 65.6; Globulin 3.6 gm/dl (2.5-4.0); Magnesium 1.4 mg/dl (1.8-2.4); Potassium 3.9 mmol/L (3.5-5.1); Total Protein 6.6 gm/dl (6.4-8.2)
[2019-11-06] MEDS ORDERED: MAGNESIUM OXIDE 400 MG TAB PO STA (10:04)
[2019-11-06] MEDS ORDERED: MAGNESIUM SULFATE / D5W 1 GM/100 ML BAG IV ONE ×2 (10:04→10:51)
--- NOTE | 2019-11-06 10:26 | XRay Report ---
XR knee RT 3V CLINICAL HISTORY: Right knee pain. COMPARISON STUDY: Right knee 07/05/2015. FINDINGS: The bones are osteopenic. No acute fracture or dislocation within the right knee. This a ri ght total knee arthroplasty. The hardware appears intact. No abnormal periprosthetic lucency. Trace k nee effusion. Soft tissues are unremarkable. IMPRESSION: 1. No fracture or dislocation within the right knee. 2. Trace knee effusion. 3. Right total knee arthroplasty. ACT 112: Negative or not required by law. Electronically signed by: Vijay Vega M.D. 11/06/2019 10:24 AM
--- NOTE | 2019-11-06 10:28 | XRay Report ---
XR femur RT 2V routine, XR hip RT 2V w pelvis CLINICAL HISTORY: Right hip and leg pain. COMPARISON STUDY: None. FINDINGS: Partially visualized right total knee arthroplasty. No fracture or dislocation within the r ight hip or right femur. The visualized pelvic bones are intact. Mild osteoarthritis within the bilat eral hips. The sacrum appears intact. IMPRESSION: No fracture or dislocation within the pelvis, hips, or right femur. ACT 112: Negative or not required by law. Electronically signed by: Vijay Vega M.D. 11/06/2019 10:27 AM
--- NOTE | 2019-11-06 10:30 | Ultrasound Report ---
US venous doppler LE RT CLINICAL HISTORY: 74 years-old Female presenting with right lower extremity pain and swelling, unable to move leg well, concern for DVT. TECHNIQUE: Real-time grayscale and color and spectral Doppler ultrasound imaging of the veins of the right lower extremity was performed. Compression and augmentation were also utilized. COMPARISON: 07/25/2014. FINDINGS: RIGHT: Common femoral vein: Patent. Greater saphenous vein (superficial): Patent. Deep femoral vein: Patent. Femoral vein: Patent. Popliteal vein: Patent. Calf veins: Patent. Other: None. IMPRESSION: No evidence of deep venous thrombosis. ACT 112: Negative or not required by law. Electronically signed by: Lalito Mchugh M.D. 11/06/2019 10:29 AM
--- NOTE | 2019-11-06 16:41 | Emergency Department Note ---
ED Visit Note I assumed care of the patient. The patient was pending transfer versus admission for placement. Patient did have mildly low magnesium and elevated blood glucose. Patient was unable to go to [facility] for placement. The patient was admitted to the medicine service. I did speak with Dr. Ly. .
--- NOTE | 2019-11-06 17:48 | History & Physical Report ---
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 Pt was d/c'd from [facility] on 10/26 after being admitted for severe constipation. She states that she would get occasional twinges of pain at times, but had been able to get around her home and walk without much other than her usual baseline LE joint paints. This pain has worsened in the last 3 days. Pt states that pain is severe at a 10/10 and she cannot walk at all due to her R LE. Pain travels from her hip down to her knee. Denies any fall or other trauma. Pt has hx of R TKA many years ago, but has never had pain like this. Pain is shooting and unbearable. It is much worse when she tries to ambulate at all. Pt was seen in the ED by PT/OT. She was accepted to [facility], however insurance auth has not been approved yet and it is now end of the business day for her insurance company and there has been no response from them. Pt lives alone without other housing options or nearby support. Pt has had no issues with her constipation since d/c. She has had QD bowel movements, although not yet today. She does feel like she has to go and has had some mild nausea due to this. No emesis. She was seen by her PCP 3 days ago routine hospital d/c exam. She states that she had some pain at that time, but things worsened after the visit. Pt denies fever, SOB, chest pain, abd pain, LE swelling. Allergies Allergy/AdvReac Type Severity Reaction Status Date / Time cephalexin Allergy Intermediate Rash and Verified 11/06/19 08:59 itchiness Cephalosporins Allergy Intermediate Rash and Verified 11/06/19 08:59 itchiness Sulfa (Sulfonamide Allergy Intermediate Hives Verified 11/06/19 08:59 Antibiotics) Home Medications Home Medications Medication Instructions Recorded Confirmed Type nitroglycerin [Nitrostat] 0.4 mg SUBLINGUAL UD PRN #0 btl 07/27/17 11/06/19 History omega 1-itu-szt-fish oil [Fish Oil] 1,000 mg PO QAM #0 cap 07/27/17 11/06/19 History aspirin [Aspir-81] 81 mg PO QAM #0 10/14/17 11/06/19 History acetaminophen [Acetaminophen Extra 1,000 mg PO Q8 PRN #0 tab 08/29/18 11/03/19 Rx Strength] pen needle, diabetic [BD #90 ea 08/29/18 11/03/19 Rx Ultra-Fine [place] Pen Needle] buspirone 10 mg tablet 10 mg PO TID #90 tab 01/25/19 11/06/19 Rx diclofenac sodium 1 % topical gel 2 gm TOP QID #300 gm 02/23/19 11/06/19 Rx ranitidine HCl 150 mg tablet 150 mg PO BID #180 tab 03/31/19 11/06/19 Rx cholecalciferol (vitamin D3) 25 1,000 units PO QAM #0 tab 04/05/19 11/06/19 History mcg (1,000 unit) capsule linaclotide 145 mcg capsule 145 mcg PO QAM cap 04/05/19 11/06/19 History rosuvastatin 40 mg tablet 40 mg PO QAM 04/28/19 11/06/19 History blood sugar diagnostic #100 ea 05/04/19 11/03/19 Rx metformin 1,000 mg tablet 1,000 mg PO BID #60 tab 05/08/19 11/06/19 Rx carvedilol 3.125 mg tablet 3.125 mg PO BID #180 tab 05/26/19 11/06/19 Rx pantoprazole 40 mg PO BID #60 tab 08/12/19 11/06/19 Rx lidocaine HCl 2 % mucosal solution 15 ml PO TID PRN #100 ml 08/17/19 11/06/19 Rx insulin aspart U-100 100 unit/mL 7 units SC AC ml 08/23/19 11/06/19 History (3 mL) subcutaneous pen insulin degludec 100 unit/mL (3 25 units SQ QAM ml 08/23/19 11/06/19 History mL) subcutaneous pen lisinopril 10 mg PO QAM 10/17/19 11/06/19 History sucralfate 1 g PO ACHS 10/17/19 11/06/19 History duloxetine 30 mg capsule,delayed 30 mg PO QAM #30 cap 10/23/19 11/06/19 Rx release polyethylene glycol 3350 [Miralax] 17 gm PO DAILY #1 ea 10/27/19 11/06/19 Rx hydrocortisone acetate 25 mg MO DAILY PRN 11/06/19 11/06/19 History Past Med/Surg History Medical History Anal stricture (Chronic) Anxiety disorder (Chronic) ASCVD (arteriosclerotic cardiovascular disease) (Chronic) Cervical pain (neck) (Chronic) Chronic pain syndrome (Chronic) Cognitive dysfunction (Chronic) Constipation (Inactive) Daytime somnolence (Chronic) Depression (Chronic) Diabetes mellitus, type 2 Diabetic gastroparesis (Chronic) Diabetic peripheral neuropathy (Chronic) DJD (degenerative joint disease) of knee (Inactive) Early satiety (Chronic) Elevated lipase Elevated serum creatinine Epigastric abdominal pain (Inactive) GERD without esophagitis (Chronic) History of esophageal dilatation HTN (hypertension) (Chronic) Hyperlipidemia (Chronic) IBS (irritable bowel syndrome) (Chronic) Lumbar spondylosis (Chronic) Migraine headache (Chronic) Myocardial Infarction 3 total within an 8 month span--HX OF [address], FOLLOWS WITH DR. JULES Trapezius muscle spasm (Chronic) Uncontrolled type 2 diabetes mellitus with neurologic complication, with long- term current use of insulin (Chronic) Vitamin D deficiency (Chronic) Surgical History History of cardiac cath x3 with 3 stents total, last was 2012 History of cataract surgery bilt eyes---Left cataract 03/09/. 2mg versed. no issues History of cholecystectomy History of colonoscopy with polypectomy History of esophagogastroduodenoscopy (EGD) History of heart artery stent x3, last was 2012 History of lumbar spinal fusion History of tooth extraction all teeth History of total hysterectomy with bilateral salpingo-oophorectomy (BSO) History of total right knee replacement (TKR) Family History Brother Myocardial infarction Sister Family history of reaction to anesthesia difficulty waking Other Cancer Diabetes Heart disease Hypertension Denies family history of Ovarian cancer Prostate cancer Breast cancer Colorectal cancer Stroke Social History Preferred Language: Mozambican Communication Ability: Effective Visual Impairment: No Limitations Hearing Ability: Normal 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 Beliefs That Will Affect Care: None marital status: / Current Living Situation: Alone current occupational status: disabled Feels Safe at Home: Yes Smoking Status: Never smoker Tobacco Type: cigarettes ; Second Hand Exposure: No ; Hx Alcohol Use: No Hx Substance Use: No Childhood Exposure to Second-Hand Smoke: No caffeine: Yes Dental Care, Regularly: No Physical Activity Frequency: Does not Exercise Seatbelt Use: always Sunscreen Use: No Review of Systems Review of Systems: Pertinent positives and negatives reviewed in HPI--all others negative Physical Exam Constitutional: WD/WN, vitals as above Eyes: normal visual peraza by confrontation and + anicteric sclerae Neck: normal visual inspection and trachea midline Respiratory: normal respiratory effort, lungs clear to auscultation Cardiovascular: Rate/Rhythm: regular rate and regular rhythm Gastrointestinal (Abdomen): Inspection/Auscultation: abdomen not distended Percussion/Palpation: abdomen soft; abdomen nontender Musculoskeletal: Head/Neck/Chest: normocephalic and head atraumatic negative for edema, peripheral pulses intact Skin: no rashes, warm and dry Neurologic: awake; not confused Speech / Cognition: normal speech Psychiatric: A+Ox3, euthymic affect Results & Data Vital Signs (Past 12 Hours) Vital Signs Temp Pulse Resp BP Pulse Ox 11/06/19 16:33 71 19 179/98 H 97 11/06/19 14:21 64 16 173/88 H 98 11/06/19 13:02 69 28 H 155/80 H 96 11/06/19 11:26 68 20 150/81 H 96 11/06/19 11:01 65 17 158/97 H 97 11/06/19 09:14 71 18 181/85 H 96 11/06/19 08:37 36.6 C 83 26 H 208/104 H 100 Diagnostic Findings R knee, hip, pelvis, femur XR: neg for acute R LE US: neg for DVT Code Status & VTE Plan Code Status States DNR/DNI "I'm too old to go through any of that." VTE Prophylaxis Plan VTE Prophylaxis will be ordered: Yes PG Care Time/CCT Total # of Minutes Spent Total Time Spent with Patient: Total time spent is greater than 50% in coordination of care (as documented) at patient's floor/unit and/or counseling patient: Coding Level of Care Code 55032 OBS Care - Level 3 Diagnoses Pain of right leg M79.604 Constipation K59.00 DM w/o complication type II, uncontrolled E11.65 Glycemic state: with hyperglycemia Hypomagnesemia E83.42 Anxiety F41.9 Mckeon esophagus K22.70 Mckeon's esophagus type: without dysplasia GERD (gastroesophageal reflux disease) K21.9 Esophagitis presence: without esophagitis Diabetic neuropathy E11.40 Dyslipidemia E78.5 Anal stricture K62.4 Anxiety disorder F41.9 Diabetic gastroparesis E11.43; K31.84 Hyperlipidemia E78.2 Hyperlipidemia type: mixed hyperlipidemia HTN (hypertension) I10 Hypertension type: essential hypertension DVT prophylaxis Z29.9 (1) DM w/o complication type II, uncontrolled Glycemic state: with hyperglycemia Qualified Code(s): E11.65 - Type 2 diabetes mellitus with hyperglycemia (2) Mckeon esophagus Mckeon's esophagus type: without dysplasia Qualified Code(s): K22.70 - Mckeon's esophagus without dysplasia (3) GERD (gastroesophageal reflux disease) Esophagitis presence: without esophagitis Qualified Code(s): K21.9 - Gastro- esophageal reflux disease without esophagitis (4) Hyperlipidemia Hyperlipidemia type: mixed hyperlipidemia Qualified Code(s): E78.2 - Mixed hyperlipidemia (5) HTN (hypertension) Hypertension type: essential hypertension Qualified Code(s): I10 - Essential (primary) hypertension
[2019-11-06] MEDS ORDERED: carvediloL 3.125 MG TAB PO STA (18:37)
[2019-11-06] MEDS ORDERED: LIDOCAINE HCL VISCOUS SOLN 2% 15 ML UDC PO PRN (19:32)
[2019-11-06] MEDS ORDERED: ONDANSETRON INJ 2 MG/ML 2 ML VIAL IV PRN (19:32)
[2019-11-06] MEDS ORDERED: GLUCOSE 40% GEL 15 GM TUBE PO PRN ×2 (19:32→20:00)
[2019-11-06] MEDS ORDERED: HYDROCORTISONE ACETATE 25 MG SUPP PR PRN (19:32)
[2019-11-06] MEDS ORDERED: NITROGLYCERIN SL 0.4 MG/TAB TAB SL PRN (19:32)
[2019-11-06] MEDS ORDERED: MAGNESIUM HYDROXIDE SUSP 30 ML UDC PO PRN (19:32)
[2019-11-06] MEDS ORDERED: GLUCAGON FOR INJ 1 MG VIAL SQ PRN (19:32)
[2019-11-06] MEDS ORDERED: DEXTROSE 50% 50 ML SYRINGE IV PRN ×2 (19:32→20:00)
[2019-11-06] MEDS ORDERED: CARBOHYDRATES FOR HYPOGLYCEMIA PO PRN ×2 (19:32→20:00)
[2019-11-06] MEDS ORDERED: GLUCOSE 10 TABS/TUBE PO PRN ×2 (19:32→20:00)
[2019-11-06] MEDS ORDERED: GLUCAGON FOR INJ 1 MG VIAL IM PRN (20:00)
[2019-11-06] MEDS: ACETAMINOPHEN 500 MG TAB PO PRN (20:39)
[2019-11-06] MEDS: DICLOFENAC SOD 1% GEL 100 GM TUBE EXT SCH (21:21)
[2019-11-06] MEDS: SUCRALFATE 1 GM TAB PO SCH (21:23)
[2019-11-06] MEDS: PANTOprazole 40 MG TAB PO SCH (21:23)
[2019-11-06] MEDS: INSULIN ASPART 100 UNITS/ML 3 ML PEN SC SCH (21:32)
[2019-11-06] MEDS: carvediloL 3.125 MG TAB PO SCH (21:50)
[2019-11-07] MEDS: ACETAMINOPHEN 500 MG TAB PO PRN (07:23)
[2019-11-07] MEDS: SUCRALFATE 1 GM TAB PO SCH ×4 (07:27→20:25)
[2019-11-07] MEDS ORDERED: INSULIN ASPART 100 UNITS/ML 3 ML PEN SC SCH (07:30)
[2019-11-07] MEDS ORDERED: METFORMIN HCL 500 MG TAB PO SCH (08:00)
[2019-11-07] MEDS: POLYETHYLENE (MIRALAX) 17 GM PACK PO SCH (08:38)
[2019-11-07] MEDS: lisinopriL 10 MG TAB PO SCH (08:38)
[2019-11-07] MEDS: CHOLECALCIFEROL 1,000 UNITS 25 MCG TAB PO SCH (08:38)
[2019-11-07] MEDS: DULOXETINE HCL 30 MG CAP PO SCH (08:38)
[2019-11-07] MEDS: OMEGA-3 (PURIFIED FISH OIL) 1 GM CAP PO SCH (08:38)
[2019-11-07] MEDS: PANTOprazole 40 MG TAB PO SCH ×2 (08:39→20:27)
[2019-11-07] MEDS: ROSUVASTATIN CALCIUM 20 MG TAB PO SCH (08:39)
[2019-11-07] MEDS: LINACLOTIDE 72 MCG CAPSULE PO SCH (08:39)
[2019-11-07] MEDS: ASPIRIN 81 MG ECTAB PO SCH (08:39)
[2019-11-07] MEDS: DICLOFENAC SOD 1% GEL 100 GM TUBE EXT SCH ×4 (08:40→20:32)
[2019-11-07] MEDS: carvediloL 3.125 MG TAB PO SCH ×2 (08:40→20:25)
[2019-11-07] MEDS: INSULIN ASPART 100 UNITS/ML 3 ML PEN SC SCH ×4 (08:42→20:45)
[2019-11-07] MEDS ORDERED: INSULIN GLARGINE SOLOSTAR 100 UNITS/ML 3 ML PEN SC SCH (09:00)
--- NOTE | 2019-11-07 10:02 | Hospitalist Progress Note ---
Date of Service November 07, 2019 Assessment & Plan (1) Pain of right leg: - With ambulatory dysfunction; unclear etiology, possibly related to muscle spasms vs. spinal issue. - Doppler of RLE negative for DVT. - XR of lumbar/thoracic spine showed multilevel degenerative changes of the thoracic spine, osteopenia and mild spondylotic changes of lumbar spine. - Will order MRI of thoracic/lumbar spine with and without contrast. - Consider orthopedics consult for evaluation. - PT/OT -- will need placement at [facility] pending insurance authorization. - Voltaren gel to be applied topically QID; Tylenol 1 gm q8hr scheduled for pain. (2) Constipation: - Chronic issue for patient -- s/p recent EGD on 10/25. - Has been having regular BMs at home with scheduled Miralax, most recently 2 days ago. - Continue Linzess and Miralax daily scheduled. - Anusol OH daily prn. (3) IBS (irritable bowel syndrome): - IBS-C; continue Linzess as prescribed. (4) Anal stricture: - S/p stretching during last admission. (5) DM w/o complication type II, uncontrolled: - A1C 14.8 on 10/25. - On Tresiba 25 units qAM, Novolog 7 units AC and Metformin at home. - Lantus 25 units qAM, SSI coverage as inpatient. BG has been uncontrolled, will consult pharmacy for glycemic management. - Recently met with rn diabetes educator in setting of poorly controlled DM. Recommend to f/u with endocrinology as outpatient. (6) Mckeon esophagus: - Per recent EGD on 10/26/19. - Continue PPI BID, Carafate QID. (7) GERD (gastroesophageal reflux disease): - Home meds as noted above. - Holding Ranitidine as inpt. (8) Dyslipidemia: - Continue home Rosuvastatin & ASA 81 mg daily. (9) CAD (coronary artery disease): - With NSTEMI, stenting in 2005. - Continue ASA, Coreg, Lisinopril and Rosuvastatin as prescribed. (10) Diabetic neuropathy: - Not currently on Gabapentin, well controlled. (11) Diabetic gastroparesis: - Follows with GI. (12) HTN (hypertension): - Continue Coreg, Lisinopril as prescribed. - BP was elevated, now improved. Will continue to monitor. (13) Depression: - Continue Cymbalta as prescribed. (14) Anxiety: - Buspar 10 mg TID. (15) Hypomagnesemia: - Monitor and replace prn -- level was WNL this morning. (16) DVT prophylaxis: - SCDs; Heparin BID. Dispo: Med/surg; discharge pending evaluation of right leg pain. Will need placement at [facility], following. Admission and Anticipated Discharge Date Admission Date: November 06, 2019 Supervising Physician Co-Signing Physician Notes Attending Attestation: Chart reviewed in detail, care plan d/w PA Evelyn Alicea. I agree w/ the hathaway components of her documentation. Patient with right hip and right thigh pain. ?radicular pain from l-spine? MRI of t-spine/l-spine ordered by Ms Alicea. If not from the lumbar spine - intrinsic hip disease? hip bursitis? Re-eval after MRIs return. Other plans per Ms Alicea. Dispo- SNF. Roger Vazquez MD Subjective Patient complains of right leg pain -- she has trouble ambulating due to pain. Pain is located from right hip to right knee, tender to palpation on exam. She denies low back pain, urinary or stool incontinence, saddle anesthesia. Most recent BM was 2 days ago but patient does have issues with chronic constipation, improved with Miralax routine at home. Denies chest pain, SOB, N/V, loss of appetite. Plan for placement at discharge, patient has requested [facility]. Review of Systems Review of Systems: All systems reviewed & are unremarkable except as noted in HPI & below Constitutional: + fatigue and + weakness; no fever, no chills and no anorexia Respiratory: no cough, no dyspnea and no dyspnea on exertion Cardiovascular: no chest pain, no palpitations and no edema Gastrointestinal: + constipation; no abdominal pain, no nausea and no vomiting Genitourinary: no difficulty urinating Musculoskeletal: + joint pain and + muscle weakness; no back pain Integumentary: no non-healing lesions Neurologic: + localized weakness (Right leg weakness/pain) Physical Exam Physical Exam: General: Resting comfortably HEENT: NC/AT; PERRLA with EOMI; [place] conjunctiva, MMM. No erythema of posterior pharynx Neck: Supple and nontender Cardiac: RRR Lungs: CTA bilaterally Abdomen: Bowel normoactive X 4; Nontender to palpation Extremities: Warm. No edema present. Tender to palpation over majority of right thigh. Neuro: +2/5 muscle strength in RLE; +4/5 LLE strength. Remainder of exam was negative. Skin: No rash Results & Data ([facility]) Vital Signs (Past 12 Hours) Vital Signs Temp Pulse Pulse Resp BP Pulse Ox 11/07/19 08:35 62 11/07/19 07:04 36.4 C L 56 L 16 134/82 100 11/06/19 23:28 36.4 C L 65 12 121/77 99 Laboratory Results 11/07/19 11/07/19 11/06/19 Range/Units 08:07 05:34 20:42 Sodium (136-145) mmol/L Potassium (3.5-5.1) mmol/L Chloride (98-107) mmol/L Carbon Dioxide (21-32) mmol/L Anion Gap (3-11) BUN (7-18) mg/dl Creatinine (0.6-1.2) mg/dl Est Cr Clr Drug Dosing ml/min Est GFR ( Amer) Est GFR (Non-Af Amer) BUN/Creatinine Ratio (10-20) Glucose (70-99) mg/dl POC Glucose 241 H 274 H (70-99) mg/dl Calcium (8.5-10.1) mg/dl Magnesium 1.8 (1.8-2.4) mg/dl Total Bilirubin (0.2-1) mg/dl AST (15-37) U/L ALT (12-78) U/L Alkaline Phosphatase (45-117) U/L Total Creatine Kinase (26-192) U/L Total Protein (6.4-8.2) gm/dl Albumin (3.4-5.0) gm/dl Globulin (2.5-4.0) gm/dl Albumin/Globulin Ratio (0.9-2) 11/06/19 Range/Units 09:11 Sodium 138 (136-145) mmol/L Potassium 3.9 (3.5-5.1) mmol/L Chloride 107 (98-107) mmol/L Carbon Dioxide 22 (21-32) mmol/L Anion Gap 9.0 (3-11) BUN 13 (7-18) mg/dl Creatinine 0.88 (0.6-1.2) mg/dl Est Cr Clr Drug Dosing 59.2 ml/min Est GFR ( Amer) 76.1 Est GFR (Non-Af Amer) 65.6 BUN/Creatinine Ratio 14.2 (10-20) Glucose 300 H (70-99) mg/dl POC Glucose (70-99) mg/dl Calcium 9.2 (8.5-10.1) mg/dl Magnesium 1.4 L (1.8-2.4) mg/dl Total Bilirubin 0.3 (0.2-1) mg/dl AST 12 L (15-37) U/L ALT 24 (12-78) U/L Alkaline Phosphatase 90 (45-117) U/L Total Creatine Kinase 21 L (26-192) U/L Total Protein 6.6 (6.4-8.2) gm/dl Albumin 3.0 L (3.4-5.0) gm/dl Globulin 3.6 (2.5-4.0) gm/dl Albumin/Globulin Ratio 0.8 L (0.9-2) PG Care Time/CCT Total # of Minutes Spent Total Time Spent with Patient: Total time spent is greater than 50% in coordination of care (as documented) at patient's floor/unit and/or counseling patient: Coding Level of Care Code 98657 Subseq Obs Care Lvl 3 Diagnoses Pain of right leg M79.604 Constipation K59.00 IBS (irritable bowel syndrome) K58.9 Anal stricture K62.4 DM w/o complication type II, uncontrolled E11.65 Glycemic state: with hyperglycemia Mckeon esophagus K22.70 Mckeon's esophagus type: without dysplasia GERD (gastroesophageal reflux disease) K21.9 Esophagitis presence: without esophagitis Dyslipidemia E78.5 CAD (coronary artery disease) I25.10 Associated angina: angina presence unspecified Coronary Disease-Associated Artery/Lesion type: [place] artery [place] vs. transplanted heart: [place] heart Diabetic neuropathy E11.40 Diabetic gastroparesis E11.43; K31.84 HTN (hypertension) I10 Hypertension type: essential hypertension Depression F32.9 Anxiety F41.9 Hypomagnesemia E83.42 DVT prophylaxis Z29.9 (1) CAD (coronary artery disease) Associated angina: angina presence unspecified Coronary Disease-Associated Artery/Lesion type: [place] artery [place] vs. transplanted heart: [place] heart Qualified Code(s): I25.10 - Atherosclerotic heart disease of [place] coronary artery without angina pectoris (2) DM w/o complication type II, uncontrolled Glycemic state: with hyperglycemia Qualified Code(s): E11.65 - Type 2 diabetes mellitus with hyperglycemia (3) GERD (gastroesophageal reflux disease) Esophagitis presence: without esophagitis Qualified Code(s): K21.9 - Gastro- esophageal reflux disease without esophagitis (4) Mckeon esophagus Mckeon's esophagus type: without dysplasia Qualified Code(s): K22.70 - Mckeon's esophagus without dysplasia (5) HTN (hypertension) Hypertension type: essential hypertension Qualified Code(s): I10 - Essential (primary) hypertension
[2019-11-07 10:35] LABS: BUN Creatinine Ratio 14.1 (10-20); Calcium 9.3 mg/dl (8.5-10.1); Creatinine Clr Calc Pharmacy 51.8 ml/min; Est GFR (African American) 65.2; Est GFR (Non-African American) 56.2; Magnesium 1.8 mg/dl (1.8-2.4); Potassium 4.1 mmol/L (3.5-5.1)
--- NOTE | 2019-11-07 10:46 | XRay Report ---
LUMBAR SPINE 3 VIEWS CLINICAL HISTORY: Right leg pain. Low back pain. FINDINGS: 3 views of the lumbar spine are compared to study dated 12/24/2014 and correlated with abdom inal CT dated 08/09/2019. The skeletal structures are osteopenic. There is no radiographic evidence o f fracture or malalignment. Vertebral body height and alignment are maintained throughout the lumbar spine. Anterior and lateral marginal osteophytes are seen throughout. The transverse and spinous proc esses appear intact. There is only minimal degenerative disc space narrowing seen at L4-L5 and L5-S1. A small posterior disc osteophyte complex is noted at L5-S1. Mild facet arthropathy is seen in the l ower lumbar region. The visualized bony pelvis appears intact. Degenerative sclerosis is noted in the sacroiliac joints. No bowel obstruction is seen. A surgical clip and phleboliths are noted in the pe lvis. There is atherosclerotic calcification of the abdominal aorta. IMPRESSION: 1. No acute bony abnormality is identified involving the lumbar spine. 2. Osteopenia and mild spondylotic change as above. Electronically signed by: Oliver Moreno M.D. 11/07/2019 10:44 AM
[2019-11-07 10:47] LABS: Beta-Hydroxybutyrate 0.93 mg/dl (0.2-2.81)
--- NOTE | 2019-11-07 10:49 | XRay Report ---
XR thoracic spine 3V routine CLINICAL HISTORY: 74 years-old Female presenting with Right leg pain. TECHNIQUE: 3 views of the thoracic spine were obtained. COMPARISON: Correlation made to CTA chest from 08/09/2019. FINDINGS: Normal thoracic kyphosis. Vertebral bodies maintain normal height and alignment. Overlap of osseous s tructures at the cervicothoracic junction mildly limited evaluation. Allowing for this, no evidence o f fracture or subluxation. Intervertebral disc heights preserved. Multilevel spondylitic spurring. No gross evidence of osseous neural foraminal narrowing. No scoliosis. Normal cardiac size. Coronary ar que stents noted. Lungs and pleural spaces clear within the visualized portion. IMPRESSION: 1. Multilevel degenerative changes of the thoracic spine. 2. No radiographic evidence of acute osseous injury. ACT 112: Negative or not required by law. Electronically signed by: Lalito Mchugh M.D. 11/07/2019 10:47 AM
[2019-11-07] MEDS ORDERED: PHARMACY GLYCEMIC MGMT CONSULT PRN (10:53)
--- NOTE | 2019-11-07 11:31 | Pharmacy Report ---
Glycemic Control Consultation - Date of Service November 07, 2019 - Scope Scope: Glycemic Pharmacist consulted for glycemic control and to write orders per [facility] inpatient glycemic control protocol. - Objective Weight: 82.6 kg Accuchecks BSG (last 24hrs): 11/06/19 11/07/19 11/07/19 20:42 08:07 09:43 Glucose 336 H* POC Glucose 274 H 241 H Laboratory Data (last 24hrs): 11/07/19 09:43 Potassium 4.1 Carbon Dioxide 28 Anion Gap 5.0 Creatinine 1.00 Est Cr Clr Drug Dosing 51.8 Beta-Hydroxybutyric Acd 0.93 - Recent Pertinent Medications Outpatient Anti-diabetic Regimen: * Tresiba 20 units SQ AM * Novolog 7 units SQ TIDAC * Metformin 1000 mg PO BIDM * A1c = 14.8% on 10/26/2019 The patient is currently receiving: * Basal insulin: Lantus 25 units SQ Daily * Correctional Insulin: Novolog Correction per scale ACHS Goal Range: Low 100 mg/dL - High 140 mg/dL Correction Factor: 15 mg/dL/unit * Prandial insulin: Per carb ratio of 1 unit per 5 grams CHO consumed * Oral Agents: Metformin 1000 mg PO BIDM Risk Factors for Insulin Resistance: * Diet: * T2DM - Assessment & Plan Assessment & Plan: ASSESSMENT: 11/07/19: * 74 yo T2DM female presenting with intractable right knee/hip pain * Patient is known to the glycemic service from recent admission two weeks ago. A1c indicates poor outpatient control, however A1c has decreased from 16.8% in Jul to 14.8%. * Patient did not receive any basal insulin yesterday, received 11 units of bolus insulin at bedtime for BSG 274 mg/dL * Patient with uncontrolled fasting BSG this AM, 241 mg/dL, secondary to basal deficiency * Received 25 units Lantus and 1 g Metformin this AM * Previous admission data shows good controlled with Lantus 20 units SQ AM PLAN FOR INPATIENT GLYCEMIC CONTROL: * Pt is maintained on oral antidiabetic agents as an outpatient * Oral agents are not recommended for inpatient use d/t drug interactions, changing PO intake, and difficulty titrating for acute hyper/hypoglycemia. ADA recommends re-initiating outpatient oral agents 1-2 days prior to discharge if/when appropriate if they were held on admission. * Will hold oral agents for admission and utilize SQ basal bolus insulin regimen which is the recommended regimen for inpatient glycemic control. * Will initiate weight based insulin dosing for insulin hermelinda patient and titrate based on BSG trends. * ADA & AACE recommend a goal blood sugar range 140-180 mg/dl for the majority of critically ill & non-critically ill patients. However, more stringent t argets may be selected in individual cases. Will utilize more stringent goal of 110-140 mg/dl based on patient age & comorbidities. Additionally, tighter glycemic control is warranted to facilitate wound/infection healing. * Basal insulin * Lantus 20 units SQ QAM: For BSG < 180 mg/dL * Lantus 25 units SQ QAM: For BSG 180 mg/dL or above * Bolus insulin * NovoLog per scale ACHS or Q6hrs while NPO * Goal Range: Low 110 mg/dL - High 140 mg/dL * Correction Factor: 15 mg/dL/unit * Nutritional / Prandial insulin per carb ratio of 1 unit per 5 grams CHO consumed * Please note that the plan above was derived based on current level of insulin resistance and hospital stress. These recommendations are appropriate for inpatient admission only. Plan of care upon discharge will need to be reassessed to avoid potential outpatient hypo/hyperglycemia. Thank you.
[2019-11-07] MEDS ORDERED: LORazepam 1 MG TAB PO STA (12:39)
[2019-11-07] MEDS ORDERED: GADOBUTROL 65ML VIAL IV PRN (14:38)
--- NOTE | 2019-11-07 15:11 | Magnetic Resonance Report ---
MR lumbar spine wo/w con HISTORY: Pain. Neuropathy. Right leg radiculopathy TECHNIQUE: Multiplanar multisequence MRI of the lumbar spine was performed both before and after the intravenous administration of contrast. COMPARISON: None. FINDINGS: For the purpose of the report the L5-S1 disc space will be located on axial image 23 of 25. Normal signal characteristics of the vertebral bodies. Mild degenerative disc change L4-L5 and L5-S1. L1-L2: Minimal broad-based disc bulge. L2-L3: Minimal broad-based disc bulge L3-L4: No significant central canal or neural foraminal narrowing. L4-L5: Minimal broad-based disc bulge L5-S1: Minimal broad-based disc bulge. Moderate narrowing right neural foramina. IMPRESSION: 1. Mild degenerative disc change. 2. Mild right central bulging disc L5-S1 creating mild narrowing right neural foramina. 3. Minimal multilevel disc bulges. ACT 112: Negative or not required by law. The above report was generated using voice recognition software. It may contain grammatical, syntax or spelling errors. Electronically signed by: Kendall Martin M.D. 11/07/2019 3:10 PM
[2019-11-07] MEDS: ACETAMINOPHEN 500 MG TAB PO SCH ×2 (15:21→23:38)
--- NOTE | 2019-11-07 15:21 | Magnetic Resonance Report ---
MRI OF THE THORACIC SPINE COMBO CLINICAL HISTORY: Right leg pain. Radiculopathy. COMPARISON STUDY: Radiographs of the thoracic spine dated 11/07/2019. Chest CT dated 08/09/2019. TECHNIQUE: MRI of the thoracic spine is performed using various T1 and T2 sequences in the axial and sagittal planes. Contrast-enhanced sequences are acquired following the IV administration of 8 cc of Gadavist. FINDINGS: Vertebral body height and alignment are maintained throughout the thoracic spine. Mild hype rkyphosis is noted. The transverse and spinous processes appear intact. No destructive bony lesion is seen. Small anterior osteophytes are seen throughout. There is minimal degenerative disc desiccation . The disc spaces are maintained. There is no disc herniation or central canal stenosis. The thoracic spinal cord is normal in morphology and signal intensity. The conus medullaris terminates at the lev el of L1. No abnormal postcontrast enhancement is identified. There is no evidence of significant pranav ral foraminal stenosis throughout the thoracic region. The paraspinous soft tissues are normal in moira earance. The lung parenchyma is grossly unremarkable but not well evaluated by MRI. IMPRESSION: 1. There is a disc herniation, central canal stenosis, or neural foraminal narrowing seen throughout the thoracic spine. 2. No osseous abnormality is identified. 3. The thoracic spinal cord is normal in morphology and signal intensity. Electronically signed by: Oliver Moreno M.D. 11/07/2019 3:19 PM
[2019-11-07] MEDS: HEPARIN SOD 5,000 UNIT/0.5 ML VIAL SQ SCH (20:27)
[2019-11-08 05:56] LABS: Hematocrit (blood only) 38.6 % (37-47); Hemoglobin 12.9 g/dL (12.0-16.0); Mean Corpuscular Hemoglobin 27.6 pg (25-34); Mean Corpuscular Hgb Conc 33.4 g/dL (32-36); Mean Corpuscular Volume 82.5 fL (80-100); Mean Platelet Volume 9.7 fL (7.4-10.4); Platelet Count 228 K/uL (130-400); RDW Coefficient of Variation 14.2 % (11.5-14.5); RDW Standard Deviation 42.5 fL (36.4-46.3); Red Blood Count 4.68 M/uL (4.2-5.4); White Blood Count 5.65 K/uL (4.8-10.8)
[2019-11-08 06:25] LABS: BUN Creatinine Ratio 17.4 (10-20); Calcium 8.6 mg/dl (8.5-10.1); Creatinine Clr Calc Pharmacy 39.6 ml/min; Est GFR (African American) 48.4; Est GFR (Non-African American) 41.7; Magnesium 1.7 mg/dl (1.8-2.4); Potassium 4.4 mmol/L (3.5-5.1)
[2019-11-08] MEDS: ACETAMINOPHEN 500 MG TAB PO SCH (07:32)
[2019-11-08] MEDS: SUCRALFATE 1 GM TAB PO SCH ×2 (07:32→11:40)
[2019-11-08 07:42] VITALS: BP 131/81; PULSE 71; TEMP 97.5; O2SAT 96
[2019-11-08] MEDS: lisinopriL 10 MG TAB PO SCH (07:58)
[2019-11-08] MEDS: OMEGA-3 (PURIFIED FISH OIL) 1 GM CAP PO SCH (07:58)
[2019-11-08] MEDS: DULOXETINE HCL 30 MG CAP PO SCH (07:58)
[2019-11-08] MEDS: CHOLECALCIFEROL 1,000 UNITS 25 MCG TAB PO SCH (07:58)
[2019-11-08] MEDS: LINACLOTIDE 72 MCG CAPSULE PO SCH (07:59)
[2019-11-08] MEDS: carvediloL 3.125 MG TAB PO SCH (07:59)
[2019-11-08] MEDS: ROSUVASTATIN CALCIUM 20 MG TAB PO SCH (07:59)
[2019-11-08] MEDS: ASPIRIN 81 MG ECTAB PO SCH (07:59)
[2019-11-08] MEDS: PANTOprazole 40 MG TAB PO SCH (08:00)
[2019-11-08] MEDS: DICLOFENAC SOD 1% GEL 100 GM TUBE EXT SCH ×2 (08:00→11:40)
[2019-11-08] MEDS: POLYETHYLENE (MIRALAX) 17 GM PACK PO SCH (08:01)
[2019-11-08] MEDS: INSULIN ASPART 100 UNITS/ML 3 ML PEN SC SCH ×2 (08:07→12:05)
[2019-11-08] MEDS: HEPARIN SOD 5,000 UNIT/0.5 ML VIAL SQ SCH (08:07)
[2019-11-08] MEDS ORDERED: INSULIN GLARGINE SOLOSTAR 100 UNITS/ML 3 ML PEN SC SCH (09:00)
--- NOTE | 2019-11-08 10:09 | Pharmacy Report ---
Pharmacy Glycemic Short Note 2 - Date of Service November 08, 2019 - Glycemic Short BSG Results (Last 24 hours): 11/07/19 11/07/19 11/07/19 09:43 11:55 17:41 Glucose 336 H* POC Glucose 273 H 121 H 11/07/19 11/08/19 11/08/19 20:44 05:40 08:00 Glucose 159 H POC Glucose 142 H 220 H OUTPATIENT ANTIDIABETIC REGIMEN: * Tresiba 20 units SQ AM * Novolog 7 units SQ TIDAC * Metformin 1000 mg PO BIDM * A1c = 14.8% on 10/26/2019 ASSESSMENT: 11/08/19: * BSGs improved throughout the day yesterday, ranging 121 - 241 mg/dL * Patient received 68 units of insulin, 25 units of basal * Bolus insulin regimen adjusted last evening to avoid insulin stacking and prevent hypoglycemia * Fasting BSG this AM uncontrolled at 220 mg/dL, likely secondary to basal insulin not being at steady state levels 11/07/19: * 74 yo T2DM female presenting with intractable right knee/hip pain * Patient is known to the glycemic service from recent admission two weeks ago. A1c indicates poor outpatient control, however A1c has decreased from 16.8% in Jul to 14.8%. * Patient did not receive any basal insulin yesterday, received 11 units of bolus insulin at bedtime for BSG 274 mg/dL * Patient with uncontrolled fasting BSG this AM, 241 mg/dL, secondary to basal deficiency * Received 25 units Lantus and 1 g Metformin this AM * Previous admission data shows good controlled with Lantus 20 units SQ AM PLAN FOR INPATIENT GLYCEMIC CONTROL: * Hold outpatient oral diabetes medications * Basal insulin * Lantus 25 units SQ AM * Bolus insulin * NovoLog per scale ACHS or Q6hrs while NPO * Goal Range: Low 110 mg/dL - High 140 mg/dL * Correction Factor: 20 mg/dL/unit * Nutritional / Prandial insulin per carb ratio of 1 unit per 7 grams CHO consumed PLAN FOR DISCHARGE: * Patient may require an increase in Tresiba and Novolog dose (~ 20%) given A1c * Patient would likely benefit from outpatient dietitian appointment * Patient does have follow-up appointment with endocrinology scheduled for January
[2019-11-08] MEDS ORDERED: INSULIN GLARGINE SOLOSTAR 100 UNITS/ML 3 ML PEN SC STA (12:17)
--- NOTE | 2019-11-08 12:56 | Discharge Summary ---
Date of Service November 08, 2019 Admission HPI Per Admitting Provider 74 y/o F c/o R knee/hip and leg pain. Pt was d/c'd from [facility] on 10/26 after being admitted for severe constipation. She states that she would get occasional twinges of pain at times, but had been able to get around her home and walk without much other than her usual baseline LE joint paints. This pain has worsened in the last 3 days. Pt states that pain is severe at a 10/10 and she cannot walk at all due to her R LE. Pain travels from her hip down to her knee. Denies any fall or other trauma. Pt has hx of R TKA many years ago, but has never had pain like this. Pain is shooting and unbearable. It is much worse when she tries to ambulate at all. Pt was seen in the ED by PT/OT. She was accepted to [facility], however insurance auth has not been approved yet and it is now end of the business day for her insurance company and there has been no response from them. Pt lives alone without other housing options or nearby support. Pt has had no issues with her constipation since d/c. She has had QD bowel movements, although not yet today. She does feel like she has to go and has had some mild nausea due to this. No emesis. She was seen by her PCP 3 days ago routine hospital d/c exam. She states that she had some pain at that time, but things worsened after the visit. Pt denies fever, SOB, chest pain, abd pain, LE swelling. Principal Diagnosis R Leg Pain - Sciatica/Lumbar radiculopathy,Lumbar HNP Discharge Exam Constitutional WD/WN, vitals as above Eyes + anicteric sclerae ENMT Ears: no hearing impairment Neck trachea midline Respiratory normal respiratory effort, lungs clear to auscultation Cardiovascular RRR, no murmur, no edema Gastrointestinal (Abdomen) Inspection/Auscultation: normal bowel sounds Percussion/Palpation: abdomen soft; abdomen nontender Musculoskeletal Head/Neck/Chest: normocephalic and head atraumatic + tenderness of R thigh (reports less today); 2+/5 strength of RLE more pronounced with plantar flexion; +4/5 strength of LLE; R knee well-healed surgical incision noted Skin no rashes, warm and dry Neurologic moves all extremities Psychiatric A+Ox3, euthymic affect Discharge Data Allergies Allergy/AdvReac Type Severity Reaction Status Date / Time cephalexin Allergy Intermediate Rash and Verified 11/06/19 08:59 itchiness Cephalosporins Allergy Intermediate Rash and Verified 11/06/19 08:59 itchiness Sulfa (Sulfonamide Allergy Intermediate Hives Verified 11/06/19 08:59 Antibiotics) Consultations 11/06/19 18:33 ED Decision to Admit Stat 11/06/19 19:32 Consult Case Management - Discharge Planning Routine Ordered Studies 11/06/19 08:43 US venous doppler LE RT Stat 11/07/19 11:43 MR lumbar spine wo/w con Routine MR thoracic spine wo/w con Routine Hospital Course (1) Pain of right leg: - Pain of R Leg - likely lumbar radiculopathy related to MRI findings of mild R central bulge and mild narrowing of the R neural foramina at L5-S1 -- States her pain seems to be improving today - Venous doppler negative for DVT - Has been utilizing scheduled Tylenol which she reports is helping; will also send Rx for Tramadol PRN while undergoing rehab - Continue Voltaren - Consider orthopedic referral as outpatient if not improving with therapy/conservative measures -consider adding on gabapentin if pain not improving (2) Constipation: - Chronic issue for patient -- s/p recent EGD on 10/25. - Has been having regular BMs at home with scheduled Miralax; Continue this as well as Linzess - Anusol [place] daily prn. (3) IBS (irritable bowel syndrome): - IBS-C; continue Linzess as prescribed. (4) Anal stricture: - S/p stretching during last admission. (5) DM w/o complication type II, uncontrolled: - A1C 14.8 on 10/25 - which is improved from 16.8 - review of PCP note does report concern for her ability to understand everything but is trying. 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 - Continue PPI BID, Carafate QID. (7) GERD (gastroesophageal reflux disease): - Home meds as noted above; Continue Ranitidine (8) Dyslipidemia: - Continue home Rosuvastatin & ASA 81 mg daily (9) CAD (coronary artery disease): - With NSTEMI, stenting in 2005. - Continue ASA, Coreg, Lisinopril and Rosuvastatin as prescribed. (10) Diabetic gastroparesis: - Follows with GI. (11) HTN (hypertension): - Continue Coreg, Lisinopril as prescribed. (12) Depression: - Continue Cymbalta as prescribed. (13) Anxiety: - Buspar 10 mg TID. (14) DVT prophylaxis: - SCDs; Heparin BID. Dispo: Rehab at [facility] Total Time Total Time Spent Total Time Spent (In Minutes): Greater than 30 minutes Discharge Plan Discharge Items Patient Disposition: Transfer [facility] Fac Reason For Visit: AMBULATORY DYSFUNCTION Discharge Diagnosis: Sciatica/Mild disc Bulge Condition on Discharge: Good Activity: As commented below Lifting: None Bathing: No limitations Exercise/Sports: Gradually increase as tolerated Non-emergency contact: Primary Care Provider Call non-emergency contact if: you have any medication questions, your symptoms worsen and you have a fever Follow-up/Referrals: Lalito Pimentel MD [Primary Care Provider] - Diet: Carb Consistent or DM2 Addtl Attending Provider Instructions: Right Lower extremity Pain: - With ambulatory dysfunction - suspect this is related to the mild R central bulging disc at L5-S1 creating mild narrowing of R neural foramina. -- Recommend pain control and therapy to assist. States pain is starting to improve. Does have some weakness of to plantar flexion compared to LLE. No loss of bowel/urine or saddle paresthesias - Continue Voltaren gel and Scheduled Tylenol of 1000 mg TID; Can use Tramadol as needed for more severe pain. Consider adding on gabapentin if needed for improved pain control. Constipation/IBS-C/Anal stricture S/P stretching: - Continue scheduled Miralax, Linzess; Anusol as needed Uncontrolled Diabetes/Diabetic Neuropathy/Diabetic Gastroparesis: A1c 14.8 - Her A1c is improving as it was 16.8 prior to this; She has an appointment with Endocrinology in January - We have been utilizing Lantus 25 units and insulin aspart sliding scale with goal 110-140 with a correction factor of 20 and a carb ratio of 1:7 -- Could continue to use a facility sliding scale if needed. Given her A1c her estimated glucose is 378 so would expect higher readings. - There is a compliance issue and would not want to make drastic changes to hinder this more. I have made the following changes an this can be further adjusted as needed at your facility -- Increase Tresiba to 30 units daily -- Increase insulin aspart 9 units with meals (can favor a sliding scale while at your facility if easier) - she has been averaging 7-15 units here with correction factor and carb coverage -- Continue Metformin 1000 mg twice a day Mckeon esophagus/GERD: - Per recent EGD on 10/26/19 - Continue PPI BID, Carafate QID, Ranitidine BID Dyslipidemia/CAD with NSTEMI and PCI (2005)/HTN: - Continue home Rosuvastatin & ASA 81 mg daily; Coreg and Lisinopril Pending Studies at Discharge: No Stand-Alone Forms: My [facility] Skilled Items Patient informed of condition?: Yes DNR: Yes Discharge Level of Care: Skilled Communicable Disease: No Discharge Prognosis: Stable Lines: None Urinary Catheter: No Medications and DC Order Prescriptions: Continued nitroglycerin [Nitrostat] 0.4 mg Tablet, Sublingual 0.4 mg Sublingual UD PRN (Reason: Chest Pain) Qty: 0 RF: 0 omega 1-wow-ase-fish oil [Fish Oil] 1,000 mg (120 mg-180 mg) Capsule 1,000 mg PO QAM Qty: 0 RF: 0 aspirin [Aspir-81] 81 mg Tablet,Delayed Release (Dr/Ec) 81 mg PO QAM Qty: 0 RF: 0 buspirone 10 mg tablet 10 mg PO TID Qty: 90 RF: 0 diclofenac sodium 1 % gel 2 gm TOP QID Qty: 300 RF: 2 ranitidine HCl 150 mg tablet 150 mg PO BID Qty: 180 RF: 3 cholecalciferol (vitamin D3) [Vitamin D3] 1,000 unit capsule 1,000 units PO QAM Qty: 0 RF: 0 (DME) OneTouch Verio strip See Dose Instructions .ROUTE .MEDSUPPLY Qty: 100 RF: 3 metformin 1,000 mg tablet 1,000 mg PO BID Qty: 60 RF: 3 carvedilol 3.125 mg tablet 3.125 mg PO BID Qty: 180 RF: 1 duloxetine 30 mg capsule,delayed release(DR/EC) 30 mg PO QAM Qty: 30 RF: 3 rosuvastatin 40 mg tablet 40 mg PO QAM RF: 0 Linzess 145 mcg capsule 145 mcg PO QAM RF: 0 lidocaine HCl 2 % solution 15 ml PO TID PRN (Reason: Mouth/reflux pain) Qty: 100 RF: 0 pantoprazole 40 mg tablet,delayed release (DR/EC) 40 mg PO BID Qty: 60 RF: 0 polyethylene glycol 3350 [Miralax] 17 gram powder in packet 17 gm PO DAILY Qty: 1 RF: 0 hydrocortisone acetate 25 mg suppository 25 mg [place] DAILY PRN (Reason: .) RF: 0 (DME) pen needle, diabetic [BD Ultra-Fine [place] Pen Needle] 32 gauge x 5/32" needle See Dose Instructions .ROUTE .MEDSUPPLY Qty: 90 RF: 0 acetaminophen [Acetaminophen Extra Strength] 500 mg Tablet 1,000 mg PO Q8 PRN (Reason: Pain) Qty: 0 RF: 0 sucralfate 1 gram Tablet 1 g PO ACHS RF: 0 lisinopril 10 mg tablet 10 mg PO QAM RF: 0 Changed insulin aspart U-100 [Novolog Flexpen U-100 Insulin] 100 unit/mL (3 mL) insulin pen 9 units SC AC Qty: 0 RF: 0 Tresiba FlexTouch U-100 100 unit/mL (3 mL) insulin pen 30 units SQ QAM Qty: 0 RF: 0 Discharge Orders: Discharge Order (Routine); Ordered 11/08/19 Ordered By: Malissa Saavedra Admission Data Admit Date/Time: 11/06/19 17:53 Attending Provider: Malissa Saavedra Admit Provider: Jumana Ly Primary Care Provider: Lalito Pimentel Other Interventions: Discharge Summary Assessment (RN) Last Done: 11/08/19 11:29 DC Date/Time DO NOT enter until pt leaves facility: 11/08/19 14:04 Supervising Physician Co-Signing Physician Notes PA Supervision Note: I personally saw and examined the patient. I verified all hathaway points and agree with JAVI Bloom with the following exceptions and/or additions: Pt presented with severe right lower extremity pain and ambulatory dysfunction, worsening over the past week since last discharge. Pain radiating from right hip to right knee. Admitted for workup and rehab placement. MRI findings reviewed and pain improving prior to discharge. Diabetes severely uncontrolled. Could also be diabetic neuronitis Vitals reviewed NAD, AAOx3 Anicteric sclerae RRR no mgr CTAB no wcr Abd +BS soft NT ND Ext +mild TTP over right anterior and lateral thigh but no erythema, no masses, no wounds, no edema Neuro: 4/5 strength throughout RLE mostly limited by pain with movement, sensation intact to light touch throughout bilat LEs 74 yo female here with RLE pain and mabulatory dysfunction most likely secondary to lumbar radiculopathy. Improving but needs rehab placement and pain control ongoing -stable for dc to SNF -needs continued improved management of her severely uncontrolled DM Coding Level of Care Code 82324 OBS Care - Discharge Diagnoses Pain of right leg M79.604 Constipation K59.00 IBS (irritable bowel syndrome) K58.9 Anal stricture K62.4 DM w/o complication type II, uncontrolled E11.65 Glycemic state: with hyperglycemia Mckeon esophagus K22.70 Mckeon's esophagus type: without dysplasia GERD (gastroesophageal reflux disease) K21.9 Esophagitis presence: without esophagitis Dyslipidemia E78.5 CAD (coronary artery disease) I25.10 Associated angina: angina presence unspecified Coronary Disease-Associated Artery/Lesion type: [place] artery [place] vs. transplanted heart: [place] heart Diabetic gastroparesis E11.43; K31.84 HTN (hypertension) I10 Hypertension type: essential hypertension Depression F32.9 Anxiety F41.9 DVT prophylaxis Z29.9
== END 2019-11-08 14:04 ==
LOC: ED 08:32 → 3E 08:32 → SUATTDRO 17:53 → 3E 19:11
DX: K21.9 Gastro-esophageal reflux disease without esophagitis; E11.9 Type 2 diabetes mellitus without complications; M51.26 Other intervertebral disc displacement, lumbar region; E78.5 Hyperlipidemia, unspecified; E11.43 Type 2 diabetes mellitus with diabetic autonomic (poly)neuropathy; Z88.1 Allergy status to other antibiotic agents; Z88.2 Allergy status to sulfonamides; F32.9 Major depressive disorder, single episode, unspecified; Z79.899 Other long term (current) drug therapy; E83.42 Hypomagnesemia; F41.9 Anxiety disorder, unspecified; I25.10 Atherosclerotic heart disease of native coronary artery without angina pectoris; Z79.4 Long term (current) use of insulin; Z79.82 Long term (current) use of aspirin; K58.9 Irritable bowel syndrome, unspecified; M54.40 Lumbago with sciatica, unspecified side; K62.4 Stenosis of anus and rectum; K59.00 Constipation, unspecified; I10 Essential (primary) hypertension; I25.2 Old myocardial infarction; K22.70 Barrett's esophagus without dysplasia

== ENCOUNTER 2021-03-21 06:02 | Observation (INO) ==
[2021-03-21] MEDS ORDERED: FAMOTIDINE 20MG/5ML IV PUSH IV ONE (06:26)
[2021-03-21] MEDS ORDERED: ONDANSETRON INJ 2 MG/ML 2 ML VIAL ONE (06:26)
[2021-03-21] MEDS ORDERED: ONDANSETRON INJ 2 MG/ML 2 ML VIAL IV STA (06:30)
[2021-03-21] MEDS ORDERED: FAMOTIDINE 20MG/5ML IV PUSH IV STA (06:30)
--- NOTE | 2021-03-21 06:39 | Communication Note ---
Date of Service: March 21, 2021 This patient was seen in concert with Dr. Berkowitz and we discussed and agreed upon the history, physical, assessment, and plan. See attending's note for de tails. Resident Activity Tracking Resident Involvement: Resident Care Provided Care Provided: Adult ED
[2021-03-21 06:51] LABS: Basophils # (auto) 0.04 K/uL (0-0.2); Basophils % (auto) 0.5 %; Eosinophils # (auto) 0.13 K/uL (0-0.5); Eosinophils % (auto) 1.7 %; Hematocrit (blood only) 41.8 % (37-47); Hemoglobin 13.9 g/dL (12.0-16.0); Immature Granulocytes # (auto) 0.02 K/uL (0.00-0.02); Immature Granulocytes % (auto) 0.3 %; Lymphocytes # (auto) 2.99 K/uL (1.2-3.4); Lymphocytes % (auto) 39.4 %; Mean Corpuscular Hemoglobin 26.7 pg (25-34); Mean Corpuscular Hgb Conc 33.3 g/dL (32-36); Mean Corpuscular Volume 80.2 fL (80-100); Mean Platelet Volume 9.8 fL (7.4-10.4); Monocytes # (auto) 0.43 K/uL (0.11-0.59); Monocytes % (auto) 5.7 %; Neutrophils # (auto) 3.98 K/uL (1.4-6.5); Neutrophils % (auto) 52.4 %; Platelet Count 301 K/uL (130-400); RDW Coefficient of Variation 14.5 % (11.5-14.5); RDW Standard Deviation 42.3 fL (36.4-46.3); Red Blood Count 5.21 M/uL (4.2-5.4); White Blood Count 7.59 K/uL (4.8-10.8)
--- NOTE | 2021-03-21 06:53 | Emergency Department Note ---
History of Present Illness General Chief complaint: Vomiting Stated complaint: HEART BURN,VOMITING,CHEST PAIN Time Seen by Provider: 03/21/21 06:04 History of Present Illness Maximum Pain Intensity: 10 75-year-old female who presents to the ED with a chief complaint of epigastric pain and retrosternal chest pain. She describes it as a sharp pain and also describes it as heartburn. She states that it is not exertionally related. It sort of comes and goes without any inciting cause. The patient states that it also extends or radiates into the left lower chest. This is been going on for the past 2 to 3 weeks. She saw her PCP yesterday and had an EKG done that did not show any concerning abnormalities. She is supposed to be on PPIs but has not been taking them for the past 8 months or so. The patient reports nausea and vomiting yesterday as well as nausea and vomiting all night. No additional complaints at this time. No diarrhea. No fevers. Home Medications Medication Instructions Recorded Confirmed Type nitroglycerin 0.4 mg sublingual 0.4 mg SUBLINGUAL UD PRN #0 btl 07/27/17 03/21/21 History tablet (Nitrostat) omega 8-jtb-ply-fish oil 1,000 mg 1,000 mg PO QAM #0 cap 07/27/17 03/21/21 History (120 mg-180 mg) capsule (Fish Oil) cholecalciferol (vitamin D3) 25 1,000 units PO QAM #0 tab 04/05/19 03/21/21 History mcg (1,000 unit) capsule (Vitamin D3) linaclotide 145 mcg capsule 145 mcg PO QAM PRN cap 04/05/19 03/21/21 History (Linzess) lisinopril 10 mg tablet 10 mg PO QAM #90 tab 11/20/19 03/21/21 Rx duloxetine 30 mg capsule,delayed 30 mg PO QAM #90 cap 01/25/20 03/21/21 Rx release buspirone 10 mg tablet 10 mg PO TID #90 tab 04/02/20 03/21/21 Rx metformin 500 mg tablet 1,000 mg PO BID #120 tab 04/24/20 03/21/21 Rx rosuvastatin 40 mg tablet 40 mg PO QAM #90 tab 07/18/20 03/21/21 Rx carvedilol 6.25 mg tablet 6.25 mg PO BID #180 tab 07/19/20 03/21/21 Rx isosorbide mononitrate 30 mg 30 mg PO QAM 09/11/20 03/21/21 History tablet,extended release 24 hr blood sugar diagnostic (OneTouch #200 ea 11/05/20 03/20/21 Rx Verio test strips) flash glucose scanning reader #1 ea 11/18/20 03/20/21 History (FreeStyle Renan 2 Tad) flash glucose sensor (FreeStyle #1 ea 11/18/20 03/20/21 History Renan 2 Sensor) pen needle, diabetic 32 gauge x ea 11/18/20 03/20/21 History 532" (BD Ultra-Fine [place] Pen Needle) ezetimibe 10 mg tablet (Zetia) 10 mg PO QAM 12/03/20 03/21/21 History insulin aspart U-100 100 unit/mL 20 unit SUBCUT DAILY #2 box 01/21/21 03/21/21 Rx (3 mL) subcutaneous pen (Novolog Flexpen U-100 Insulin aspart) insulin degludec 100 unit/mL (3 30 unit SQ QPM #2 box 01/21/21 03/21/21 Rx mL) subcutaneous pen (Tresiba FlexTouch U-100 insulin) famotidine 20 mg tablet 20 mg PO BID #60 tab 03/20/21 03/21/21 Rx pantoprazole 40 mg tablet,delayed 40 mg PO BID #60 tab 03/20/21 03/21/21 Rx release Allergies Allergy/AdvReac Type Severity Reaction Status Date / Time cephalexin Allergy Intermediate Rash and Verified 03/21/21 08:27 itchiness Cephalosporins Allergy Intermediate Rash and Verified 03/21/21 08:27 itchiness Sulfa (Sulfonamide Allergy Intermediate Hives Verified 03/21/21 08:27 Antibiotics) Past Med/Surg History Medical History Mckeon esophagus CAD (coronary artery disease) s/p stents to RCA November 2005; s/p stents to LAD, LCx in January 2006; s/p stents to RCA in 08/2006 Cervical pain (neck) Chronic pain syndrome Depression Diabetes mellitus, type 2 IDDM Diabetic gastroparesis Diabetic peripheral neuropathy Dyslipidemia GERD without esophagitis HTN (hypertension) IBS (irritable bowel syndrome) Lumbar spondylosis Migraine headache My[place]arction [place]- November 2005, January 2006, Aug 2006 3 total within an 8 month span--[place] [facility] [place] JULES Obesity Vitamin D deficiency Surgical History History of cardiac cath x4 with 3 stents total; last cath 2012 History of cataract surgery BL History of cholecystectomy History of colonoscopy with polypectomy History of esophageal dilatation History of esophagogastroduodenoscopy (EGD) History of lumbar spinal fusion History of tooth extraction all teeth History of total hysterectomy with bilateral salpingo-oophorectomy (BSO) History of total right knee replacement (TKR) Family History Brother Myocardial infarction Anxiety Heart disease Hypertension Cancer Sister Family history of reaction to anesthesia difficulty waking Hypertension Heart disease Myocardial infarction Anxiety Cancer Diabetes Father Anxiety Heart disease Hypertension Mother Anxiety Hypertension Heart disease Unknown Cancer skin, GI Denies family history of Ovarian cancer Prostate cancer Breast cancer Colorectal cancer Stroke Social History Smoking Status: Never smoker Tobacco Type: Cigarettes Age Started Using Tobacco: 18; Age Quit Using Tobacco: 22; Cigarettes Per Day: 3 cigarettes a week; Second Hand Exposure: No; Hx Alcohol Use: No Hx Substance Use: No Preferred Language: Mozambican Communication Ability: Effective Visual Impairment: Limited Hearing Ability: Normal 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 Beliefs That Will Affect Care: None marital status: / Current Living Situation: Alone current occupational status: retired and disabled How many Children do You have: 3 Feels Safe at Home: Yes Childhood Exposure to Second-Hand Smoke: No caffeine: Yes (drinks coffee, diet pepsi occasionally ) Dental Care, Regularly: No Physical Activity Frequency: Does not Exercise Seatbelt Use: always Sunscreen Use: No Assistive Devices: Denture - Upper, Glasses and Walker Review of Systems A total of 10 systems reviewed and were otherwise negative Physical Exam Vital Signs Vital Signs - 24 hr 03/21/21 06:06 03/21/21 06:30 Temperature 35.5 C L Temperature Source Temporal Artery Scan Pulse Rate 96 H Respiratory Rate 24 Respiratory Effort / Characteristics Spontaneous Blood Pressure 165/96 H Blood Pressure Mean 119 Pulse Oximetry 100 98 Oxygen Delivery Method Room Air Room Air Sepsis New/Unexplained Change in Mental Status N/A Sepsis Action Taken by Nursing No Action Required CONSTITUTIONAL/VITAL SIGNS: Reviewed / noted above. GENERAL: Non-toxic in appearance. INTEGUMENTARY: Warm, dry, and [place]. HEAD: Normocephalic. EYES: without scleral icterus or trauma. ENT/OROPHARYNX: clear and moist. LYMPHADENOPATHY/NECK: Is supple without lymphadenopathy or meningismus. RESPIRATORY: Clear to auscultation bilaterally. No increased work of breathing. CARDIOVASCULAR: Regular rate and rhythm. GI/ABDOMEN: Soft and tender in the epigastric and left upper quadrant. No organomegaly or pulsatile mass. EXTREMITIES: Warm and well perfused. BACK: No CVA tenderness. NEUROLOGICAL: Intact without focal deficits. PSYCHIATRIC: normal affect. MUSCULOSKELETAL: Normally developed with good muscle tone. TRIAGE NURSING DOCUMENTATION REVIEWED. Course Administered Medications Discontinued Medications Famotidine (Famotidine 20mg/5ml Iv Push) Confirm Administered Dose 20 mg IV .STK-MED ONE Stop: 03/21/21 06:27 Last Admin: 03/21/21 06:33 Dose: Not Given Documented by: [id number] Famotidine (Famotidine 20mg/5ml Iv Push) 20 mg IV ONE STA Stop: 03/21/21 06:31 Last Admin: 03/21/21 06:33 Dose: 20 mg Documented by: [id number] Ioversol (Optiray 320 100ml) 94 ml IV ONCE ONE Stop: 03/21/21 07:18 Last Admin: 03/21/21 07:18 Dose: 94 ml Documented by: [id number] Ondansetron HCl (Ondansetron Inj 2 Mg/Ml 2 Ml Vial) Confirm Administered Dose 4 mg .ROUTE .STK-MED ONE Stop: 03/21/21 06:27 Last Admin: 03/21/21 06:33 Dose: Not Given Documented by: [id number] Ondansetron HCl (Ondansetron Inj 2 Mg/Ml 2 Ml Vial) 4 mg IV NOW STA Stop: 03/21/21 06:31 Last Admin: 03/21/21 06:33 Dose: 4 mg Documented by: [id number] Medical Decision Making Differential Diagnosis Differential considered: pancreatitis, hepatitis, acute cholecystitis, AAA, UTI, pyelonephritis, kidney stones, appendicitis, diverticulitis, shingles, bowel obstruction, mesenteric ischemia, intussusception,hernia, cardiac cause, pulmonary cause. Medical Records Attestation: I reviewed the patient's medical records. Home Medications Current Medication List: was personally reviewed by me Laboratory Data Attestation: I reviewed the patient's lab results. Result diagrams: 03/21/21 06:25 03/21/21 06:25 Lab Results 03/21/21 03/21/21 Range/Units 06:25 06:25 WBC 7.59 (4.8-10.8) K/uL RBC 5.21 (4.2-5.4) M/uL Hgb 13.9 (12.0-16.0) g/dL Hct 41.8 (37-47) % MCV 80.2 (80-100) fL MCH 26.7 (25-34) pg MCHC 33.3 (32-36) g/dL RDW Std Deviation 42.3 (36.4-46.3) fL RDW Coeff of Tino 14.5 (11.5-14.5) % Plt Count 301 (130-400) K/uL MPV 9.8 (7.4-10.4) fL Immature Gran % (Auto) 0.3 % Neut % (Auto) 52.4 % Lymph % (Auto) 39.4 % Bay % (Auto) 5.7 % Eos % (Auto) 1.7 % Baso % (Auto) 0.5 % Neut # (Auto) 3.98 (1.4-6.5) K/uL Lymph # (Auto) 2.99 (1.2-3.4) K/uL Bay # (Auto) 0.43 (0.11-0.59) K/uL Eos # (Auto) 0.13 (0-0.5) K/uL Baso # (Auto) 0.04 (0-0.2) K/uL Immature Gran # (Auto) 0.02 (0.00-0.02) K/uL Sodium 138 (136-145) mmol/L Potassium 3.9 (3.5-5.1) mmol/L Chloride 105 (98-107) mmol/L Carbon Dioxide 29 (21-32) mmol/L Anion Gap 4.0 (3-11) BUN 19 H (7-18) mg/dl Creatinine 1.10 (0.6-1.2) mg/dl Est Cr Clr Drug Dosing 46.7 ml/min Est GFR ( Amer) 57.7 ml/min Est GFR (Non-Af Amer) 49.8 ml/min BUN/Creatinine Ratio 17.2 (10-20) Glucose 227 H (70-99) mg/dl Calcium 9.0 (8.5-10.1) mg/dl Total Bilirubin 0.4 (0.2-1) mg/dl AST 20 (15-37) U/L ALT 31 (12-78) U/L Alkaline Phosphatase 99 (45-117) U/L Troponin I 0.307 H* (0-0.045) ng/ml Total Protein 7.3 (6.4-8.2) gm/dl Albumin 3.3 L (3.4-5.0) gm/dl Globulin 4.0 (2.5-4.0) gm/dl Albumin/Globulin Ratio 0.8 L (0.9-2) Lipase 159 (73-393) U/L Imaging Data Radiologist's Impression: Chest X-Ray 03/21/21 06:30 XR chest 1V portable HISTORY: 75 years-old Female shortness of breath, vomiting acute atypical chest pain with nausea and vomiting COMPARISON: Acute abdominal series radiographs 10/25/2019, CTA chest 08/09/2019 TECHNIQUE: AP view of the chest FINDINGS: Cardiac silhouette is mildly enlarged. No pneumothorax, pleural effusion, airspace consolidation or overt pulmonary. Mediastinal contours are within normal limits. Mild spondylitic spurring of the spine. Coronary artery calcifications. IMPRESSION: No acute process. ACT 112: Negative or not required by law. The above report was generated using voice recognition software. It may contain grammatical, syntax or spelling errors. Electronically signed by: Jordan Vee M.D. 03/21/2021 6:54 AM Abdomen/Pelvis CT 03/21/21 06:47 CT OF THE ABDOMEN AND PELVIS WITH CONTRAST CLINICAL HISTORY: diffuse epigastric and LUQ pain COMPARISON STUDY: CT of the abdomen and pelvis August 09, 2019. TECHNIQUE: Following IV administration of 94 mL of Optiray, axial images of the abdomen and pelvis were obtained from the lung bases to the proximal femurs. Images were reviewed in the axial, sagittal, and coronal planes. IV contrast was administered without complication. Automated exposure control was utilized for the study. A dose lowering technique was utilized adhering to the principles of ALARA. CT DOSE: 904.54 mGy.cm FINDINGS: Lung bases are unremarkable. No pneumatosis, free air or portal venous gas is present. A small hiatal hernia is present. There is mild distal esop hageal wall thickening. Distal esophagus is mildly debris-filled. The liver, spleen, adrenal glands, kidneys and pancreas are unremarkable. There is no peripancreatic infiltration. There is no evidence for a bowel obstruction. The caliber and wall thickness of small and large bowel are normal. There is no lymphadenopathy. There is no ascites. No acute fracture or suspicious lesion is identified within visualized skeletal structures. The uterus is surgically absent. The appendix is not visualized. IMPRESSION: 1. Small hiatal hernia with mild distal esophageal wall thickening which may reflect esophagitis. Mildly debris-filled distal esophagus. 2. No bowel obstruction. No bowel wall thickening. ACT 112: Negative or not required by law. Electronically signed by: Jimmy Chavarria M.D. 03/21/2021 7:54 AM ECG Data Attestation: I personally reviewed and interpreted this ECG as follows: Additional Comments: Twelve-lead EKG: Per my interpretation there is a sinus tachycardia rate of 104. No ST elevation. No PVCs. Normal QTC. MDM Narrative Patient presents with retrosternal epigastric abdominal pain that radiates in the left lower chest wall for the past 2 to 3 weeks with some associated shortness of breath as well as nausea vomiting yesterday and last night. She does not have nausea medication at home. She was started on PPIs and H2 blockers yesterday. She was supposed to take these for the past 8 months but has not been doing so. Vital signs reveal hypertension. Exam reveals some tenderness in the epigastric and left upper quadrants. The patient's EKG shows a sinus tach at a rate of 104. CBC was normal. Chest x-ray did not show acute process. Troponin was elevated at 0.3. Metabolic panel was unremarkable with exception of a glucose of 227. Lipase was negative. CT scan of the abdomen pelvis shows a small hiatal hernia as well as findings suggesting esophagitis. The patient was treated with IV Pepcid as well as some IV Zofran. She was placed on IV Protonix as well as some IV fluids. She will be seen by the hospitalist for further evaluation and care. Impression & Plan Esophagitis, Chest pain, Non-ST elevation (NSTEMI) myocardial infarction Discharge Plan Visit Data Chief Complaint: Vomiting Stated Complaint: HEART BURN,VOMITING,CHEST PAIN ED Provider: Rosas Berkowitz ED Midlevel Provider: Fadi Henry Discharge Problem: Esophagitis, Chest pain, Non-ST elevation (NSTEMI) myocardial infarction Patient Disposition: Being Evaluated by Hospitalist Forms Stand Alone Forms: [facility], Virtual Emergency Department, Important Visit Information Prescriptions Prescriptions: No Action nitroglycerin [Nitrostat] 0.4 mg Tablet, Sublingual 0.4 mg Sublingual UD PRN (Reason: Chest Pain) Qty: 0 RF: 0 omega 6-ary-qrp-fish oil [Fish Oil] 1,000 mg (120 mg-180 mg) Capsule 1,000 mg PO QAM Qty: 0 RF: 0 cholecalciferol (vitamin D3) [Vitamin D3] 1,000 unit capsule 1,000 units PO QAM Qty: 0 RF: 0 lisinopril 10 mg tablet 10 mg PO QAM Qty: 90 RF: 3 duloxetine 30 mg capsule,delayed release(DR/EC) 30 mg PO QAM Qty: 90 RF: 1 buspirone 10 mg tablet 10 mg PO TID Qty: 90 RF: 0 rosuvastatin 40 mg tablet 40 mg PO QAM Qty: 90 RF: 3 (DME) OneTouch Verio test strips Strip See Dose Instructions .ROUTE .MEDSUPPLY Qty: 200 RF: 3 (DME) pen needle, diabetic [BD Ultra-Fine [place] Pen Needle] 32 gauge x 5/32" needle See Rx Instructions .ROUTE .MEDSUPPLY RF: 0 (DME) FreeStyle Renan 2 Sensor Kit See Rx Instructions .ROUTE .MEDSUPPLY Qty: 1 RF: 0 (DME) FreeStyle Renan 2 Tad Misc See Rx Instructions .ROUTE .MEDSUPPLY Qty: 1 RF: 0 pantoprazole 40 mg tablet,delayed release (DR/EC) 40 mg PO BID Qty: 60 RF: 0 famotidine 20 mg tablet 20 mg PO BID Qty: 60 RF: 2 Linzess 145 mcg capsule 145 mcg PO QAM PRN (Reason: Constipation) RF: 0 carvedilol 6.25 mg tablet 6.25 mg PO BID Qty: 180 RF: 3 metformin 500 mg tablet 1,000 mg PO BID Qty: 120 RF: 6 Tresiba FlexTouch U-100 100 unit/mL (3 mL) insulin pen 30 unit SQ QPM Qty: 2 RF: 3 insulin aspart U-100 [Novolog Flexpen U-100 Insulin] 100 unit/mL (3 mL) insulin pen 20 unit subcut DAILY Qty: 2 RF: 3 isosorbide mononitrate 30 mg tablet extended release 24 hr 30 mg PO QAM RF: 0 ezetimibe [Zetia] 10 mg tablet 10 mg PO QAM RF: 0 Referrals Referrals: Lalito Pimentel MD [Primary Care Provider] -
--- NOTE | 2021-03-21 06:55 | XRay Report ---
XR chest 1V portable HISTORY: 75 years-old Female shortness of breath, vomiting acute atypical chest pain with nausea and vomiting COMPARISON: Acute abdominal series radiographs 10/25/2019, CTA chest 08/09/2019 TECHNIQUE: AP view of the chest FINDINGS: Cardiac silhouette is mildly enlarged. No pneumothorax, pleural effusion, airspace consolidation or o vert pulmonary. Mediastinal contours are within normal limits. Mild spondylitic spurring of the spine . Coronary artery calcifications. IMPRESSION: No acute process. ACT 112: Negative or not required by law. The above report was generated using voice recognition software. It may contain grammatical, syntax o r spelling errors. Electronically signed by: Jordan Vee M.D. 03/21/2021 6:54 AM
[2021-03-21 07:08] LABS: Albumin Level 3.3 gm/dl (3.4-5.0); BUN Creatinine Ratio 17.2 (10-20); Creatinine Clr Calc Pharmacy 46.7 ml/min; Est GFR (African American) 57.7 ml/min; Est GFR (Non-African American) 49.8 ml/min; Potassium 3.9 mmol/L (3.5-5.1)
[2021-03-21] MEDS ORDERED: OPTIRAY 320 100ml IV ONE (07:17)
[2021-03-21 07:24] LABS: Albumin Globulin Ratio 0.8 (0.9-2); Bilirubin,Total 0.4 mg/dl (0.2-1); Total Protein 7.3 gm/dl (6.4-8.2); Troponin I 0.307 ng/ml (0-0.045)
--- NOTE | 2021-03-21 07:55 | CT Scan Report ---
CT OF THE ABDOMEN AND PELVIS WITH CONTRAST CLINICAL HISTORY: diffuse epigastric and LUQ pain COMPARISON STUDY: CT of the abdomen and pelvis August 09, 2019. TECHNIQUE: Following IV administration of 94 mL of Optiray, axial images of the abdomen and pelvis we re obtained from the lung bases to the proximal femurs. Images were reviewed in the axial, sagittal, and coronal planes. IV contrast was administered without complication. Automated exposure control wa s utilized for the study. A dose lowering technique was utilized adhering to the principles of ALARA . CT DOSE: 904.54 mGy.cm FINDINGS: Lung bases are unremarkable. No pneumatosis, free air or portal venous gas is present. A sm all hiatal hernia is present. There is mild distal esophageal wall thickening. Distal esophagus is mi ldly debris-filled. The liver, spleen, adrenal glands, kidneys and pancreas are unremarkable. There i s no peripancreatic infiltration. There is no evidence for a bowel obstruction. The caliber and wall thickness of small and large bowel are normal. There is no lymphadenopathy. There is no ascites. No a cute fracture or suspicious lesion is identified within visualized skeletal structures. The uterus is surgically absent. The appendix is not visualized. IMPRESSION: 1. Small hiatal hernia with mild distal esophageal wall thickening which may reflect esophagitis. Mil dly debris-filled distal esophagus. 2. No bowel obstruction. No bowel wall thickening. ACT 112: Negative or not required by law. Electronically signed by: Jimmy Chavarria M.D. 03/21/2021 7:54 AM
[2021-03-21] MEDS ORDERED: SODIUM CHLORIDE 0.9% 1000ML 500 ML IV ONE (08:37)
[2021-03-21] MEDS ORDERED: ACETAMINOPHEN 1000 MG/100 ML IV IV STA (08:49)
[2021-03-21] MEDS ORDERED: PANTOprazole 40 MG in SYRINGE 0 ML IV SCH (09:00)
[2021-03-21] MEDS ORDERED: ALUMINUM/MAGNESIUM SUSP 18 ML, LIDOCAINE VISCOUS 2% SOLN 6 ML, BARCODE IDENTIFIER 1 EA PO ONE (10:23)
[2021-03-21] MEDS ORDERED: GI COCKTAIL ED USE PO ONE (10:52)
[2021-03-21 11:06] LABS: Creatine Kinase 34 U/L (26-192); Creatine Kinase MB < 1.0 ng/ml (0.5-3.6)
[2021-03-21] MEDS ORDERED: cloNIDine HCL 0.1 MG TAB PO PRN (12:08)
[2021-03-21] MEDS ORDERED: ACETAMINOPHEN 325 MG TAB PO PRN (12:08)
[2021-03-21] MEDS ORDERED: NITROGLYCERIN SL 0.4 MG/TAB TAB SL PRN (12:08)
[2021-03-21] MEDS ORDERED: MoRPHine SULFATE 2 MG/ML CARP IV PRN (12:08)
[2021-03-21] MEDS ORDERED: ONDANSETRON INJ 2 MG/ML 2 ML VIAL IV PRN (12:08)
[2021-03-21] MEDS ORDERED: MAGNESIUM HYDROXIDE SUSP 30 ML UDC PO PRN (12:08)
[2021-03-21 12:58] LABS: Appearance Urine Clear (Clear); Bilirubin Urine Negative (Negative); Blood Urine Negative (Negative); Color Urine Yellow; Glucose Urine UA 1+ (Negative); Ketones Urine Negative (Negative); Leukocyte Esterase Urine Negative (Negative); Nitrite Urine Negative (Negative); Protein Urine Negative (Negative); Specific Gravity Urine > 1.045 (1.000-1.030); Urobilinogen Urine Negative (Negative)
[2021-03-21] MEDS ORDERED: DEXTROSE 50% 50 ML SYRINGE IV PRN (13:15)
[2021-03-21] MEDS ORDERED: CARBOHYDRATES FOR HYPOGLYCEMIA PO PRN (13:15)
[2021-03-21] MEDS ORDERED: GLUCOSE 40% GEL 15 GM TUBE PO PRN (13:15)
[2021-03-21] MEDS ORDERED: GLUCOSE 10 TABS/TUBE PO PRN (13:15)
[2021-03-21] MEDS ORDERED: GLUCAGON FOR INJ 1 MG VIAL IM PRN (13:15)
[2021-03-21] MEDS: INSULIN ASPART 100 UNITS/ML 3 ML PEN SC SCH ×3 (15:01→20:22)
[2021-03-21] MEDS: busPIRone 5 MG TAB PO SCH ×2 (15:30→20:23)
[2021-03-21] MEDS: NITROGLYCERIN 2% OINTMENT 30GM TUBE EXT SCH ×2 (15:30→20:20)
[2021-03-21] MEDS: ASPIRIN 325 MG ECTAB PO SCH (15:30)
[2021-03-21] MEDS: lisinopril 20 MG TAB PO SCH (15:30)
[2021-03-21] MEDS: ENOXAPARIN 80 MG/0.8 ML SYR SQ SCH (15:31)
[2021-03-21] MEDS: FAMOTIDINE 20 MG in SYRINGE 3 ML IV SCH (15:31)
--- NOTE | 2021-03-21 16:44 | XCELERA ---
[id number]
--- NOTE | 2021-03-21 16:47 | Cardiology Consultation ---
Date of Consultation March 21, 2021 Assessment & Plan (1) Chest pain: (2) Elevated troponin: (3) CAD (coronary artery disease): (4) S/P coronary artery stent placement: (5) HTN (hypertension): (6) Dyslipidemia: ASSESSMENT/PLAN: 1. Elevated troponin: Minimally elevated and not diagnostic of myocardial infarction. Symptoms are not consistent with acute coronary syndrome. She certainly has underlying CAD with prior multivessel PCI. Current symptoms are more consistent with GI etiology. Elevated troponin may be due to uncontrolled hypertension with systolic blood pressure near 200 mmHg, in the setting of CAD. Recommend optimizing blood pressure. No indication for urgent cardiac catheterization. Normal LV systolic function and wall motion on echo. 2. Chest pain: Her chest pain is more consistent with GI etiology and has objective findings on CT scan concerning for esophagitis. Has had erosive esophagitis on prior EGDs as well. Symptoms have improved with GI cocktail. Recommend optimizing medical therapy for GI symptoms. Consider GI evaluation. 3. CAD s/p PCI (LAD, Cx OM, RCA): She is not presenting with acute coronary syndrome. She does have exertional dyspnea which is chronic and may or may not be related to CAD. Acute symptoms are more consistent with GI etiology. If symptoms globe changer the weekend or do not improve with GI management, could consider myocardial perfusion study next week. Given prior PCI, continue aspirin if no contraindication. 81 mg of aspirin is sufficient from a cardiology standpoint. If EGD is performed an aspirin appears to be contraindicated, would replace with Plavix 75 mg daily. She should receive some form of indefinite anti-platelet therapy given prior PCI. Continue ANNA- inhibitor, nitrate therapy, beta-stephani, and high-intensity statin therapy. 4. Hypertension: Poorly controlled. Optimize medical therapy to better control blood pressure. 5. Dyslipidemia: Continue high-intensity statin therapy. 6. Disposition: I will be away from the hospital. Please call on-call groover and turner, Dr. Pinto, for any questions or concerns. She should follow-up with her primary groover and turner, Dr. Jules, when she is discharged. Patient care communicated with Melinda Desai of the primary hospitalist service. Thank you for allowing me to participate in the care of your patient. Please call for any other questions or concerns. Sincerely, Master Gonzalez M.D. History of Present Illness Reason for Consultation: Elevated troponin Requesting Physician: Melinda Desai Attending Physician: Josh Palacios DO History of Present Illness Ms. Rosas is a very pleasant 75-year-old female with a history significant for CAD s/p PCI (LAD, Cx, RCA), type 2 diabetes, dyslipidemia, and hypertension. 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 Her primary groover and turner is Dr. Jules. She has had myocardial infarction in the past and described angina as sharp substernal chest pain that radiates to the left arm. She has had the following studies/procedures: 1. Cardiac catheterization 11/30/2005 at [facility]: Mid RCA 90%. Distal RCA 70%. PCI x2 of RCA. 2. Cardiac catheterization January 2006 [facility]: Mid LAD 80% underwent 2.25 x 18 mm be EMS. Circumflex OM 80% underwent 2.5 x 12 mm Taxus. 3. Cardiac catheterization August 2006 [facility]: Severe proximal RCA stenosis underwent PCI. 4. Dobutamine stress echo 08/02/2020: Negative for ischemia 98% MPHR. For the past 3 weeks she has had constant chest discomfort. Chest discomfort continues even while hospitalized. According to PCP note, she has not been taking her PPI for at least the past 8 months. She was last seen by her PCP on 03/20/2021. She describes the pain as a sharp pain that worsens with swallowing food. The pain is substernal and radiates below bilateral breasts and also into the epigastric area. Symptoms can occur any time and have been constant for 3 weeks. At times, she has noted some worsening with exertion. She has had improvement here with Mylanta and GI cocktail. She also has been experiencing nausea and vomiting. She estimates vomiting 10 times yesterday and has also vomited today. Her chest discomfort improved with vomiting as well. She has arreola d relief in the past with sulcal fate as well. She has chronic exertional fatigue and dyspnea which was described as stable. She had taken an inhaler in the past which help with her dyspnea but she has not had the inhaler for approximately 3 years. She denies shortness of breath at rest, orthopnea, syncope, near-syncope, palpitations, edema, or bleeding such as melena, hematochezia, or hematuria. In the emergency department she had troponin elevation at 0.307, which when repeated was 0.249. She walks with a walker. Review of systems: As above. Review of systems otherwise negative/unremarkable. Family history: Mother at the age of 56. Father had CAD and hypertension. Seven brothers all from [place]. Has 4 sisters, 2 of which with [place]. Social history: She quit smoking approximately 50 years ago after 10 pack years. No significant alcohol. She was 3 times; x2 and x1. She lives alone. She has 4 children. She is retired. She was unaccompanied during today's visit. Allergies Allergy/AdvReac Type Severity Reaction Status Date / Time cephalexin Allergy Intermediate Rash and Verified 03/21/21 08:27 itchiness Cephalosporins Allergy Intermediate Rash and Verified 03/21/21 08:27 itchiness Sulfa (Sulfonamide Allergy Intermediate Hives Verified 03/21/21 08:27 Antibiotics) Home Medications Medication Instructions Recorded Confirmed Type nitroglycerin 0.4 mg sublingual 0.4 mg SUBLINGUAL UD PRN #0 btl 07/27/17 03/21/21 History tablet (Nitrostat) omega [id number]-fish oil 1,000 mg 1,000 mg PO QAM #0 cap 07/27/17 03/21/21 History (120 mg-180 mg) capsule (Fish Oil) cholecalciferol (vitamin D3) 25 1,000 units PO QAM #0 tab 04/05/19 03/21/21 History mcg (1,000 unit) capsule (Vitamin D3) linaclotide 145 mcg capsule 145 mcg PO QAM PRN cap 04/05/19 03/21/21 History (Linzess) lisinopril 10 mg tablet 10 mg PO QAM #90 tab 11/20/19 03/21/21 Rx duloxetine 30 mg capsule,delayed 30 mg PO QAM #90 cap 01/25/20 03/21/21 Rx release buspirone 10 mg tablet 10 mg PO TID #90 tab 04/02/20 03/21/21 Rx metformin 500 mg tablet 1,000 mg PO BID #120 tab 04/24/20 03/21/21 Rx rosuvastatin 40 mg tablet 40 mg PO QAM #90 tab 07/18/20 03/21/21 Rx carvedilol 6.25 mg tablet 6.25 mg PO BID #180 tab 07/19/20 03/21/21 Rx isosorbide mononitrate 30 mg 30 mg PO QAM 09/11/20 03/21/21 History tablet,extended release 24 hr blood sugar diagnostic (OneTouch #200 ea 11/05/20 03/20/21 Rx Verio test strips) flash glucose scanning reader #1 ea 11/18/20 03/20/21 History (FreeStyle Renan 2 [place]) flash glucose sensor (FreeStyle #1 ea 11/18/20 03/20/21 History Renan 2 Sensor) pen needle, diabetic 32 gauge x ea 11/18/20 03/20/21 History 5/32" (BD Ultra-Fine [place] Pen Needle) ezetimibe 10 mg tablet (Zetia) 10 mg PO QAM 12/03/20 03/21/21 History insulin aspart U-100 100 unit/mL 20 unit SUBCUT DAILY #2 box 01/21/21 03/21/21 Rx (3 mL) subcutaneous pen (Novolog Flexpen U-100 Insulin aspart) insulin degludec 100 unit/mL (3 30 unit SQ QPM #2 box 01/21/21 03/21/21 Rx mL) subcutaneous pen (Tresiba FlexTouch U-100 insulin) famotidine 20 mg tablet 20 mg PO BID #60 tab 03/20/21 03/21/21 Rx pantoprazole 40 mg tablet,delayed 40 mg PO BID #60 tab 03/20/21 03/21/21 Rx release Patient History Medical History (Updated 03/21/21 @ 16:56 by Deon Gonzalez MD) Mckeon esophagus CAD (coronary artery disease) s/p stents to RCA November 2005; s/p stents to LAD, LCx in January 2006; s/p stents to RCA in 08/2006 Cervical pain (neck) Chronic pain syndrome Depression Diabetes mellitus, type 2 IDDM Diabetic gastroparesis Diabetic peripheral neuropathy Dyslipidemia GERD without esophagitis HTN (hypertension) IBS (irritable bowel syndrome) Lumbar spondylosis Migraine headache Myocardial Infarction [place]- November 2005, January 2006, Aug 2006 3 total within an 8 month span--HX OF CATH [address] [place] [address], FOLLOWS WITH DR. JULES Obesity Vitamin D deficiency Surgical History (Updated 03/21/21 @ 16:56 by Deon Gonzalez MD) History of cardiac cath History of cataract surgery BL History of cholecystectomy History of colonoscopy with polypectomy History of esophageal dilatation History of esophagogastroduodenoscopy (EGD) History of lumbar spinal fusion History of tooth extraction all teeth History of total hysterectomy with bilateral salpingo-oophorectomy (BSO) History of total right knee replacement (TKR) S/P coronary artery stent placement Family History Brother Myocardial infarction Anxiety Heart disease Hypertension Cancer Sister Family history of reaction to anesthesia difficulty waking Hypertension Heart disease Myocardial infarction Anxiety Cancer Diabetes Father Anxiety Heart disease Hypertension Mother Anxiety Hypertension Heart disease Unknown Cancer skin, GI Denies family history of Ovarian cancer Prostate cancer Breast cancer Colorectal cancer Stroke Social History Smoking Status: Never smoker Tobacco Type: Cigarettes Age Started Using Tobacco: 18; Age Quit Using Tobacco: 22; Cigarettes Per Day: 3 cigarettes a week; Second Hand Exposure: No; Hx Alcohol Use: No Hx Substance Use: No Preferred Language: Romanian Communication Ability: Effective Visual Impairment: Limited Hearing Ability: Normal Grades 1 6 Tutor Required: No Beliefs That Will Affect Care: None marital status: / Current Living Situation: Alone current occupational status: retired and disabled How many Children do You have: 3 Feels Safe at Home: Yes Childhood Exposure to Second-Hand Smoke: No caffeine: Yes (drinks coffee, diet pepsi occasionally ) Dental Care, Regularly: No Physical Activity Frequency: Does not Exercise Seatbelt Use: always Sunscreen Use: No Assistive Devices: Denture - Upper, Glasses and Walker Physical Exam Physical Exam: Gen.: No acute distress. Alert and oriented. HEENT: Anicteric sclera. Neck: No JVD. No bruits. Normal carotid upstrokes bilaterally. Cardiac: PMI was nonpalpable. No ventricular heave. Regular. Normal S1-S2. No murmurs, rubs, or gallops. Pulmonary: Clear to auscultation bilaterally without wheezes, rales, or rhonchi. Abdomen: Soft, nondistended, with normoactive bowel sounds. No bruits noted. Tenderness in the epigastric area and suprapubic area. Extremities: 2+ radial pulses bilaterally. 2+ posterior tibialis pulses bilaterally. No edema or cyanosis. Psychiatric: Affect appears appropriate. Chest: Tender to palpation in the substernal area reproducing her chest pain described above. No rash or mass in this area. Results & Data ([facility]) Vital Signs (Past 12 Hours) Vital Signs Temp Pulse Pulse Pulse Resp BP BP 03/21/21 15:14 36.5 C 71 20 03/21/21 12:10 36.4 C L 75 18 173/85 H 03/21/21 11:46 63 17 159/94 H 03/21/21 11:30 63 17 159/94 H 03/21/21 11:00 62 16 148/90 H 03/21/21 10:30 72 17 163/85 H 03/21/21 10:01 62 16 155/92 H 03/21/21 09:30 65 18 194/86 H 03/21/21 09:01 72 19 187/107 H 03/21/21 08:30 72 23 155/86 H 03/21/21 08:00 73 20 157/112 H 03/21/21 07:30 73 28 H 189/99 H 03/21/21 06:30 03/21/21 06:06 35.5 C L 96 H 24 165/96 H BP Pulse Ox 03/21/21 15:14 199/80 H 98 03/21/21 12:10 99 03/21/21 11:46 97 03/21/21 11:30 97 03/21/21 11:00 97 03/21/21 10:30 96 03/21/21 10:01 96 03/21/21 09:30 98 03/21/21 09:01 98 03/21/21 08:30 99 03/21/21 08:00 98 03/21/21 07:30 98 03/21/21 06:30 98 03/21/21 06:06 100 Laboratory Results Laboratory Results - last 24 hr 03/21/21 03/21/21 03/21/21 06:25 06:25 06:25 WBC 7.59 RBC 5.21 Hgb 13.9 Hct 41.8 MCV 80.2 MCH 26.7 MCHC 33.3 RDW Std Deviation 42.3 RDW Coeff of Tino 14.5 Plt Count 301 MPV 9.8 Immature Gran % (Auto) 0.3 Neut % (Auto) 52.4 Lymph % (Auto) 39.4 [place] % (Auto) 5.7 Eos % (Auto) 1.7 Baso % (Auto) 0.5 Neut # (Auto) 3.98 Lymph # (Auto) 2.99 [place] # (Auto) 0.43 Eos # (Auto) 0.13 Baso # (Auto) 0.04 Immature Gran # (Auto) 0.02 Sodium 138 Potassium 3.9 Chloride 105 Carbon Dioxide 29 Anion Gap 4.0 BUN 19 H Creatinine 1.10 Est Cr Clr Drug Dosing 46.7 Est GFR ( Amer) 57.7 Est GFR (Non-Af Amer) 49.8 BUN/Creatinine Ratio 17.2 Glucose 227 H POC Glucose Calcium 9.0 Total Bilirubin 0.4 AST 20 ALT 31 Alkaline Phosphatase 99 Total Creatine Kinase 34 CK-MB (CK-2) < 1.0 CK/CKMB % Calc TNP Troponin I 0.307 H* Total Protein 7.3 Albumin 3.3 L Globulin 4.0 Albumin/Globulin Ratio 0.8 L Lipase 159 Urine Color Urine Appearance Urine pH Ur Specific [place] Urine Protein Urine Glucose (UA) Urine Ketones Urine Blood Urine Nitrite Urine Bilirubin Urine Urobilinogen Ur Leukocyte Esterase COVID-19 Eval Order SARS-CoV-2 (PCR) 03/21/21 03/21/21 03/21/21 09:17 09:17 12:00 WBC RBC Hgb Hct MCV MCH MCHC RDW Std Deviation RDW Coeff of Tino Plt Count MPV Immature Gran % (Auto) Neut % (Auto) Lymph % (Auto) [place] % (Auto) Eos % (Auto) Baso % (Auto) Neut # (Auto) Lymph # (Auto) [place] # (Auto) Eos # (Auto) Baso # (Auto) Immature Gran # (Auto) Sodium Potassium Chloride Carbon Dioxide Anion Gap BUN Creatinine Est Cr Clr Drug Dosing Est GFR ( Amer) Est GFR (Non-Af Amer) BUN/Creatinine Ratio Glucose POC Glucose Calcium Total Bilirubin AST ALT Alkaline Phosphatase Total Creatine Kinase CK-MB (CK-2) CK/CKMB % Calc Troponin I Total Protein Albumin Globulin Albumin/Globulin Ratio Lipase Urine Color Yellow Urine Appearance Clear Urine pH 8.0 H Ur Specific [place] > 1.045 H Urine Protein Negative Urine Glucose (UA) 1+ H Urine Ketones Negative Urine Blood Negative Urine Nitrite Negative Urine Bilirubin Negative Urine Urobilinogen Negative Ur Leukocyte Esterase Negative COVID-19 Eval Order Covid19 at [facility] SARS-CoV-2 (PCR) NEGATIVE 03/21/21 03/21/21 12:42 16:33 WBC RBC Hgb Hct MCV MCH MCHC RDW Std Deviation RDW Coeff of Tino Plt Count MPV Immature Gran % (Auto) Neut % (Auto) Lymph % (Auto) [place] % (Auto) Eos % (Auto) Baso % (Auto) Neut # (Auto) Lymph # (Auto) [place] # (Auto) Eos # (Auto) Baso # (Auto) Immature Gran # (Auto) Sodium Potassium Chloride Carbon Dioxide Anion Gap BUN Creatinine Est Cr Clr Drug Dosing Est GFR ( Amer) Est GFR (Non-Af Amer) BUN/Creatinine Ratio Glucose POC Glucose 216 H Calcium Total Bilirubin AST ALT Alkaline Phosphatase Total Creatine Kinase CK-MB (CK-2) CK/CKMB % Calc Troponin I 0.249 H* Total Protein Albumin Globulin Albumin/Globulin Ratio Lipase Urine Color Urine Appearance Urine pH Ur Specific [place] Urine Protein Urine Glucose (UA) Urine Ketones Urine Blood Urine Nitrite Urine Bilirubin Urine Urobilinogen Ur Leukocyte Esterase COVID-19 Eval Order SARS-CoV-2 (PCR) Diagnostic Findings ECG personally reviewed 03/21/2021: Sinus tachycardia 104 beats per minute. Nonspecific ST abnormality. Echo 03/21/2021: Normal LV size, wall motion, systolic function. EF 65-70%. Mild MR. RVSP 25. Prior cardiology records reviewed as summarized in HPI. Chest x-ray 03/21/2021: No acute process per Radiology. CT abdomen/pelvis 03/21/2021: Small hiatal hernia with mild distal esophageal wall thickening which may reflect esophagitis. Mildly debris filled distal esophagus. Medications Administered Current Inpatient Medications Acetaminophen (Acetaminophen 325 Mg Tab) 650 mg PO Q4H PRN PRN Reason: Pain or Fever Stop: 04/20/21 12:07 Al Hydrox/Mg Hydrox/Simethicone (Aluminum/Magnesium Susp 30 Ml Udc) 15 ml PO Q4H PRN PRN Reason: Dyspepsia Stop: 04/20/21 12:07 Aspirin (Aspirin 325 Mg Ectab) 325 mg PO QAM [facility] Stop: 04/20/21 13:59 Last Admin: 03/21/21 15:30 Dose: 325 mg Documented by: Buspirone HCl (Buspirone 5 Mg Tab) 10 mg PO TID [facility] Stop: 04/20/21 13:59 Last Admin: 03/21/21 15:30 Dose: 10 mg Documented by: Carvedilol (Carvedilol 6.25 Mg Tab) 6.25 mg PO BIDM [facility] Stop: 04/20/21 16:59 Clonidine HCl (Clonidine Hcl 0.1 Mg Tab) 0.1 mg PO Q6H PRN PRN Reason: sbp>/=160, dbp>/=100 Stop: 04/20/21 12:07 Last Admin: 03/21/21 15:30 Dose: 0.1 mg Documented by: Dextrose (Dextrose 50% 50 Ml Syringe) 25 - 50 ml IV UD PRN; Protocol PRN Reason: Hypoglycemia Protocol Stop: 04/20/21 13:14 Duloxetine HCl (Duloxetine Hcl 30 Mg Cap) 30 mg PO QAM [facility] Stop: 04/21/21 08:59 Enoxaparin Sodium (Enoxaparin 80 Mg/0.8 Ml Syr) 80 mg SQ Q12H [facility] Stop: 04/20/21 12:07 Last Admin: 03/21/21 15:31 Dose: 80 mg Documented by: Glucagon (Glucagon For Inj 1 Mg Vial) 1 mg IM UD PRN; Protocol PRN Reason: Hypoglycemia Protocol Stop: 04/20/21 13:14 Glucose (Glucose 40% Gel 15 Gm Tube) 15 - 30 gm PO UD PRN; Protocol PRN Reason: Hypoglycemia Protocol Stop: 04/20/21 13:14 Glucose (Glucose 10 Tabs/Tube) 4 - 8 tabs PO UD PRN; Protocol PRN Reason: Hypoglycemia Protocol Stop: 04/20/21 13:14 Pantoprazole Sodium 40 mg/ (Syringe) 10 mls @ 5 mls/min IV BID [facility] Stop: 04/20/21 20:59 Famotidine 20 mg/ Syringe 5 mls @ 2.5 mls/min IV DAILY [facility] Stop: 04/20/21 12:07 Last Admin: 03/21/21 15:31 Dose: 2.5 mls/min Documented by: Insulin Aspart (Insulin Aspart 100 Units/Ml 3 Ml Pen) 0 units SC ACHS [facility] Stop: 04/20/21 12:07 Last Admin: 03/21/21 15:01 Dose: Not Given Documented by: Insulin Glargine (Insulin Glargine Solostar 100 Units/Ml 3 Ml Pen) 20 units SC HS [facility] Stop: 04/20/21 20:59 Lisinopril (Lisinopril 20 Mg Tab) 20 mg PO QAM [facility] Stop: 04/20/21 13:59 Last Admin: 03/21/21 15:30 Dose: 20 mg Documented by: Magnesium Hydroxide (Magnesium Hydroxide Susp 30 Ml Udc) 30 ml PO Q12H PRN PRN Reason: Constipation Stop: 04/20/21 12:07 Miscellaneous (Carbohydrates For Hypoglycemia ) 15 - 30 gm PO UD PRN PRN Reason: Hypoglycemia Treatment Stop: 04/20/21 13:14 Morphine Sulfate (Morphine Sulfate 2 Mg/Ml [place]) 2 mg IV Q30M PRN PRN Reason: Chest Pain Stop: 04/04/21 12:07 Nitroglycerin (Nitroglycerin Sl 0.4 Mg/Tab Tab) 0.4 mg SL UD PRN PRN Reason: Chest Pain Stop: 04/20/21 12:07 Nitroglycerin (Nitroglycerin 2% Ointment 30gm Tube) 0.5 inch EXT Q6H [facility] Stop: 04/20/21 13:59 Last Admin: 03/21/21 15:30 Dose: 0.5 inch Documented by: Ondansetron HCl (Ondansetron Inj 2 Mg/Ml 2 Ml Vial) 4 mg IV Q6H PRN PRN Reason: Nausea Stop: 04/20/21 12:07 Rosuvastatin Calcium (Rosuvastatin Calcium 20 Mg Tab) 40 mg PO QAM [facility] Stop: 04/21/21 08:59 PG Care Time/CCT Total # of Minutes Spent Total Time Spent with Patient: Total time spent is greater than 50% in coordination of care (as documented) at patient's floor/unit and/or counseling patient: Coding Level of Care Code 83832 Initial Inpt Care Lvl 3 Diagnoses Chest pain R07.9 Elevated troponin R77.8 HTN (hypertension) I10 Dyslipidemia E78.5 CAD (coronary artery disease) I25.10 Coronary Disease-Associated Artery/Lesion type: [place] artery [place] vs. transplanted heart: [place] heart Associated angina: angina presence unspecified S/P coronary artery stent placement Z95.5 (1) CAD (coronary artery disease) Coronary Disease-Associated Artery/Lesion type: [place] artery [place] vs. transplanted heart: [place] heart Associated angina: angina presence unspecified Qualified Code(s): I25.10 - Atherosclerotic heart disease of [place] coronary artery without angina pectoris
[2021-03-21] MEDS: carvediloL 6.25 MG TAB PO SCH (17:30)
[2021-03-21] MEDS: ALUMINUM/MAGNESIUM SUSP 30 ML UDC PO PRN (17:33)
--- NOTE | 2021-03-21 17:54 | History & Physical Report ---
Date of Service March 21, 2021 Assessment & Plan (1) Chest pain: Plan: -Patient will be hospitalized to a cardiac monitored bed -The nature of her symptoms seems more GI in that it is reproducible upon palpation to the epigastrium and LUQ and she is having excessive eructation and abdominal bloating. Clinically, this does not seem cardiac in nature; however, she does have significant risk factors including known cardiac disease, IDDM, and HTN in the setting of a positive troponin. -Given her mildly elevated troponin (which may be elevated given her accelerated BP), will give a dose of enterically coated aspirin and treatment dose Lovenox along with continuation of her beta-blockade and statin therapy. We will add topical paste for vasodilation and added BP control -obtain an echocardiogram to assess LV function -cycle cardiac enzymes -Lipid panel in a.m. for further risk stratification -Consult cardiologygreatly appreciate recommendations -I suspect that her symptoms are GI in nature -We will empirically start Pepcid and Protonix IV -Pain overall improved but not abated. Will give a GI cocktail now -Suspect patient needs updated EGD but first needs to have a further cardiac assessment -Consult GIappreciate recommendations (2) Elevated troponin: Plan: -See above (3) Accelerated essential hypertension: Plan: -Patient has not taken her BP medication today -We will resume her Coreg and lisinopril as prior to hospitalization -Hold isosorbide for now and use topical paste for added vasodilation given her elevated troponin which I am not convinced is due to ACS -Clonidine as needed with parameters -We will further add medications pending subsequent BP readings (4) DM w/o complication type II, uncontrolled: Plan: -Continue Lantus as prior to hospitalization -NovoLog with sliding scale for carb coverage and correction dosing -A1c for further risk stratification (5) Anxiety: Plan: -Continue Cymbalta (6) HTN (hypertension): Plan: -See above (7) Dyslipidemia: Plan: -Continue Crestor -Lipid panel for risk stratification (8) CAD (coronary artery disease): Plan: -See above Plan: Plan of care will be discussed with Dr. Palacios. Further orders as warranted. Admission and Anticipated Discharge Date Admission Date: March 21, 2021 History of Present Illness Chief Complaint: Chest pain and vomiting X 3 weeks Primary Care Provider: Lalito Pimentel MD Mrs. Swabb is a 75-year-old white female with a past medical history of CAD s/p old HI X3, GERD, Mckeon's esophagitis, depression/anxiety, uncontrolled IDDM, and HTN. She presented to the ED complaining of ongoing chest pain X 3 weeks. Has been mostly constant in nature. It is left-sided with radiation into the left breast and described as dull. Has had increased eructation, abdominal bloating, and ongoing nausea with multiple bouts of emesis. Her appetite has been poor given her pain. She has not found any alleviating or aggravating factors. Saw PCP yesterday who felt patient's symptoms were GI related and prescribed pantoprazole/Pepcid. Patient has yet to pick these up from the pharmacy. Overnight, her pain intensified to a 10/10. In addition, she had intractable vomiting prompting her to come to the ED. In the ED, she was given IV pantoprazole x1, IV Pepcid X1, and IV Zofran X1. Her symptoms improved but did not alleviate. Work-up yielded an unremarkable CBC/metabolic panel. Lipase was normal. Her EKG showed a mild sinus tachycardia of 106 bpm. Normal axis. No acute ST/T wave changes. Her chest x-ray showed no acute cardiopulmonary process. Her CT of the abdomen and pelvis with contrast suggested distal esophageal debris with esophagitis. Patient's troponin was slightly elevated at 0.307. Blood pressure was 187/107. Patient does take lisinopril, Coreg, and isosorbide for blood pressure and has failed to take either of these medications prior to coming to the ED given her vomiting. Patient will be hospitalized for further evaluation and care. Allergies Allergy/AdvReac Type Severity Reaction Status Date / Time cephalexin Allergy Intermediate Rash and Verified 03/21/21 08:27 itchiness Cephalosporins Allergy Intermediate Rash and Verified 03/21/21 08:27 itchiness Sulfa (Sulfonamide Allergy Intermediate Hives Verified 03/21/21 08:27 Antibiotics) Home Medications Medication Instructions Recorded Confirmed Type nitroglycerin 0.4 mg sublingual 0.4 mg SUBLINGUAL UD PRN #0 btl 07/27/17 03/21/21 History tablet (Nitrostat) omega 6-fpn-ihp-fish oil 1,000 mg 1,000 mg PO QAM #0 cap 07/27/17 03/21/21 History (120 mg-180 mg) capsule (Fish Oil) cholecalciferol (vitamin D3) 25 1,000 units PO QAM #0 tab 04/05/19 03/21/21 History mcg (1,000 unit) capsule (Vitamin D3) linaclotide 145 mcg capsule 145 mcg PO QAM PRN cap 04/05/19 03/21/21 History (Linzess) lisinopril 10 mg tablet 10 mg PO QAM #90 tab 11/20/19 03/21/21 Rx duloxetine 30 mg capsule,delayed 30 mg PO QAM #90 cap 01/25/20 03/21/21 Rx release buspirone 10 mg tablet 10 mg PO TID #90 tab 04/02/20 03/21/21 Rx metformin 500 mg tablet 1,000 mg PO BID #120 tab 04/24/20 03/21/21 Rx rosuvastatin 40 mg tablet 40 mg PO QAM #90 tab 07/18/20 03/21/21 Rx carvedilol 6.25 mg tablet 6.25 mg PO BID #180 tab 07/19/20 03/21/21 Rx isosorbide mononitrate 30 mg 30 mg PO QAM 09/11/20 03/21/21 History tablet,extended release 24 hr blood sugar diagnostic (OneTouch #200 ea 11/05/20 03/20/21 Rx Verio test strips) flash glucose scanning reader #1 ea 11/18/20 03/20/21 History (FreeStyle Renan 2 [place]) flash glucose sensor (FreeStyle #1 ea 11/18/20 03/20/21 History Renan 2 Sensor) pen needle, diabetic 32 gauge x ea 11/18/20 03/20/21 History 5/32" (BD Ultra-Fine [place] Pen Needle) ezetimibe 10 mg tablet (Zetia) 10 mg PO QAM 12/03/20 03/21/21 History insulin aspart U-100 100 unit/mL 20 unit SUBCUT DAILY #2 box 01/21/21 03/21/21 Rx (3 mL) subcutaneous pen (Novolog Flexpen U-100 Insulin aspart) insulin degludec 100 unit/mL (3 30 unit SQ QPM #2 box 01/21/21 03/21/21 Rx mL) subcutaneous pen (Tresiba FlexTouch U-100 insulin) famotidine 20 mg tablet 20 mg PO BID #60 tab 03/20/21 03/21/21 Rx pantoprazole 40 mg tablet,delayed 40 mg PO BID #60 tab 03/20/21 03/21/21 Rx release Past Med/Surg History Medical History Mckeon esophagus CAD (coronary artery disease) s/p stents to RCA November 2005; s/p stents to LAD, LCx in January 2006; s/p stents to RCA in 08/2006 Cervical pain (neck) Chronic pain syndrome Depression Diabetes mellitus, type 2 IDDM Diabetic gastroparesis Diabetic peripheral neuropathy Dyslipidemia GERD without esophagitis HTN (hypertension) IBS (irritable bowel syndrome) Lumbar spondylosis Migraine headache Myocardial Infarction HI- November 2005, January 2006, Aug 2006 3 total within an 8 month span--HX OF CATH 2013 [facility] [place], FOLLOWS WITH DR. JORGE A Queen Vitamin D deficiency Surgical History History of cardiac cath History of cataract surgery BL History of cholecystectomy History of colonoscopy with polypectomy History of esophageal dilatation History of esophagogastroduodenoscopy (EGD) History of lumbar spinal fusion History of tooth extraction all teeth History of total hysterectomy with bilateral salpingo-oophorectomy (BSO) History of total right knee replacement (TKR) S/P coronary artery stent placement Family History Brother Myocardial infarction Anxiety Heart disease Hypertension Cancer Sister Family history of reaction to anesthesia difficulty waking Hypertension Heart disease Myocardial infarction Anxiety Cancer Diabetes Father Anxiety Heart disease Hypertension Mother Anxiety Hypertension Heart disease Unknown Cancer skin, GI Denies family history of Ovarian cancer Prostate cancer Breast cancer Colorectal cancer Stroke Social History Smoking Status: Never smoker Tobacco Type: Cigarettes Age Started Using Tobacco: 18; Age Quit Using Tobacco: 22; Cigarettes Per Day: 3 cigarettes a week; Second Hand Exposure: No; Hx Alcohol Use: No Hx Substance Use: No Preferred Language: Bolivian Communication Ability: Effective Visual Impairment: Limited Hearing Ability: Normal Mechanical Artist Required: No Beliefs That Will Affect Care: None marital status: / Current Living Situation: Alone current occupational status: retired and disabled How many Children do You have: 3 Feels Safe at Home: Yes Safety Concerns: Feels Safe At This Time Childhood Exposure to Second-Hand Smoke: No caffeine: Yes (drinks coffee, diet pepsi occasionally ) Dental Care, Regularly: No Physical Activity Frequency: Does not Exercise Seatbelt Use: always Sunscreen Use: No Assistive Devices: None Review of Systems Review of Systems: All systems reviewed and are unremarkable except as noted in HPI and below Denies fevers, chills, headache, nasal congestion, sore throat, cough, chest pain, shortness of breath, abdominal pain, nausea, vomiting, dysuria, hematuria, frequency, skin lesions or rashes. Physical Exam Physical Exam: General: Resting comfortably in her hospital bed. NAD. Neck: No JVD. Negative hepatojugular reflex Cardiac: RRR without M/G/R Lungs: CTA without W/R/R Abdomen: Normoactive X4. With epigastric and left upper quadrant tenderness Extremities: No peripheral clubbing cyanosis or edema Neuro: A&O X4 cranial nerves II through XII are grossly intact no focal neuro deficits Skin: No obvious skin lesions or rashes Results & Data Results & Data ([facility]) Vital Signs (Past 12 Hours) Vital Signs Temp Pulse Pulse Pulse Resp BP BP 03/21/21 17:27 78 20 03/21/21 15:14 36.5 C 71 20 03/21/21 12:30 62 03/21/21 12:10 36.4 C L 75 18 173/85 H 03/21/21 11:46 63 17 159/94 H 03/21/21 11:30 63 17 159/94 H 03/21/21 11:00 62 16 148/90 H 03/21/21 10:30 72 17 163/85 H 03/21/21 10:01 62 16 155/92 H 03/21/21 09:30 65 18 194/86 H 03/21/21 09:01 72 19 187/107 H 03/21/21 08:30 72 23 155/86 H 03/21/21 08:00 73 20 157/112 H 03/21/21 07:30 73 28 H 189/99 H 03/21/21 06:30 03/21/21 06:06 35.5 C L 96 H 24 165/96 H BP Pulse Ox 08/06/21 17:27 153/82 H 98 03/21/21 15:14 199/80 H 98 03/21/21 12:30 03/21/21 12:10 99 03/21/21 11:46 97 03/21/21 11:30 97 03/21/21 11:00 97 03/21/21 10:30 96 03/21/21 10:01 96 03/21/21 09:30 98 03/21/21 09:01 98 03/21/21 08:30 99 03/21/21 08:00 98 03/21/21 07:30 98 03/21/21 06:30 98 03/21/21 06:06 100 Laboratory Results Laboratory Results - last 24 hr 03/21/21 03/21/21 03/21/21 06:25 06:25 06:25 WBC 7.59 RBC 5.21 Hgb 13.9 Hct 41.8 MCV 80.2 MCH 26.7 MCHC 33.3 RDW Std Deviation 42.3 RDW Coeff of Tino 14.5 Plt Count 301 MPV 9.8 Immature Gran % (Auto) 0.3 Neut % (Auto) 52.4 Lymph % (Auto) 39.4 Perkins % (Auto) 5.7 Eos % (Auto) 1.7 Baso % (Auto) 0.5 Neut # (Auto) 3.98 Lymph # (Auto) 2.99 Perkins # (Auto) 0.43 Eos # (Auto) 0.13 Baso # (Auto) 0.04 Immature Gran # (Auto) 0.02 Sodium 138 Potassium 3.9 Chloride 105 Carbon Dioxide 29 Anion Gap 4.0 BUN 19 H Creatinine 1.10 Est Cr Clr Drug Dosing 46.7 Est GFR ( Amer) 57.7 Est GFR (Non-Af Amer) 49.8 BUN/Creatinine Ratio 17.2 Glucose 227 H POC Glucose Calcium 9.0 Total Bilirubin 0.4 AST 20 ALT 31 Alkaline Phosphatase 99 Total Creatine Kinase 34 CK-MB (CK-2) < 1.0 CK/CKMB % Calc TNP Troponin I 0.307 H* Total Protein 7.3 Albumin 3.3 L Globulin 4.0 Albumin/Globulin Ratio 0.8 L Lipase 159 Urine Color Urine Appearance Urine pH Ur Specific [place] Urine Protein Urine Glucose (UA) Urine Ketones Urine Blood Urine Nitrite Urine Bilirubin Urine Urobilinogen Ur Leukocyte Esterase COVID-19 Eval Order SARS-CoV-2 (PCR) 03/21/21 03/21/21 03/21/21 09:17 09:17 12:00 WBC RBC Hgb Hct MCV MCH MCHC RDW Std Deviation RDW Coeff of Tino Plt Count MPV Immature Gran % (Auto) Neut % (Auto) Lymph % (Auto) Perkins % (Auto) Eos % (Auto) Baso % (Auto) Neut # (Auto) Lymph # (Auto) Perkins # (Auto) Eos # (Auto) Baso # (Auto) Immature Gran # (Auto) Sodium Potassium Chloride Carbon Dioxide Anion Gap BUN Creatinine Est Cr Clr Drug Dosing Est GFR ( Amer) Est GFR (Non-Af Amer) BUN/Creatinine Ratio Glucose POC Glucose Calcium Total Bilirubin AST ALT Alkaline Phosphatase Total Creatine Kinase CK-MB (CK-2) CK/CKMB % Calc Troponin I Total Protein Albumin Globulin Albumin/Globulin Ratio Lipase Urine Color Yellow Urine Appearance Clear Urine pH 8.0 H Ur Specific [place] > 1.045 H Urine Protein Negative Urine Glucose (UA) 1+ H Urine Ketones Negative Urine Blood Negative Urine Nitrite Negative Urine Bilirubin Negative Urine Urobilinogen Negative Ur Leukocyte Esterase Negative COVID-19 Eval Order Covid19 at [facility] [place] SARS-CoV-2 (PCR) NEGATIVE 03/21/21 03/21/21 12:42 16:33 WBC RBC Hgb Hct MCV MCH MCHC RDW Std Deviation RDW Coeff of Tino Plt Count MPV Immature Gran % (Auto) Neut % (Auto) Lymph % (Auto) Perkins % (Auto) Eos % (Auto) Baso % (Auto) Neut # (Auto) Lymph # (Auto) Perkins # (Auto) Eos # (Auto) Baso # (Auto) Immature Gran # (Auto) Sodium Potassium Chloride Carbon Dioxide Anion Gap BUN Creatinine Est Cr Clr Drug Dosing Est GFR ( Amer) Est GFR (Non-Af Amer) BUN/Creatinine Ratio Glucose POC Glucose 216 H Calcium Total Bilirubin AST ALT Alkaline Phosphatase Total Creatine Kinase CK-MB (CK-2) CK/CKMB % Calc Troponin I 0.249 H* Total Protein Albumin Globulin Albumin/Globulin Ratio Lipase Urine Color Urine Appearance Urine pH Ur Specific [place] Urine Protein Urine Glucose (UA) Urine Ketones Urine Blood Urine Nitrite Urine Bilirubin Urine Urobilinogen Ur Leukocyte Esterase COVID-19 Eval Order SARS-CoV-2 (PCR) Diagnostic Findings CXR:IMPRESSION: No acute process. CT of the abdomen and pelvis: IMPRESSION: 1. Small hiatal hernia with mild distal esophageal wall thickening which may reflect esophagitis. Mildly debris-filled distal esophagus. 2. No bowel obstruction. No bowel wall thickening. ECG Additional Comments: Sinus tachycardia 106 bpm. Normal axis. No acute ST/T wave changes. Code Status & VTE Plan VTE Prophylaxis Plan VTE Prophylaxis will be ordered: Yes Supervising Physician Co-Signing Physician Notes Patient seen and examined with Melinda CALDWELL. I agree with her exam findings, review of systems, assessment and plan. I personally reviewed the lab work and imaging as well. patient's symptoms seem to be GI related, especially with CT chest showing esophagitis and she was not taking her Protonix minimal elevated in troponin, certainly would think troponin would be higher if this was cardiac related given the duration of her pain - Chest pain, suspected to be due to esophagitis consult cardiology for their opinion on elevated troponin if cleared by cardiology then ask GI to evaluate Protonix IV and Pepcid, Tums PRN might get scope during admission or as outpatient for full details see H&P PG Care Time/CCT Total # of Minutes Spent Total Time Spent with Patient: Total time spent is greater than 50% in coordination of care (as documented) at patient's floor/unit and/or counseling patient: Coding Level of Care Code 61372 Initial Inpt Care Lvl 3 Diagnoses Elevated troponin R77.8 Chest pain R07.9 DM w/o complication type II, uncontrolled E11.65 Glycemic state: with hyperglycemia Anxiety F41.9 HTN (hypertension) I10 Dyslipidemia E78.5 CAD (coronary artery disease) I25.10 Associated angina: angina presence unspecified Coronary Disease-Associated Artery/Lesion type: kaibab artery Hoh vs. transplanted heart: kaibab heart Accelerated essential hypertension I10 (1) CAD (coronary artery disease) Associated angina: angina presence unspecified Coronary Disease-Associated Artery/Lesion type: kaib[place] artery Hoh vs. transplanted heart: kaibab heart Qualified Code(s): I25.10 - Atherosclerotic heart disease of kaibab coronary artery without angina pectoris (2) DM w/o complication type II, uncontrolled Glycemic state: with hyperglycemia Qualified Code(s): E11.65 - Type 2 diabetes mellitus with hyperglycemia
[2021-03-21] MEDS: PANTOprazole 40 MG in SYRINGE 0 ML IV SCH (20:21)
[2021-03-21] MEDS: INSULIN GLARGINE SOLOSTAR 100 UNITS/ML 3 ML PEN SC SCH (20:23)
[2021-03-22] MEDS: NITROGLYCERIN 2% OINTMENT 30GM TUBE EXT SCH ×4 (02:17→20:18)
[2021-03-22] MEDS: ENOXAPARIN 80 MG/0.8 ML SYR SQ SCH ×2 (02:18→13:41)
--- NOTE | 2021-03-22 06:37 | Electrocardiogram Report ---
Test Reason : Blood Pressure : / mmHG Vent. Rate : 104 BPM Atrial Rate : 104 BPM P-R Int : 162 ms QRS Dur : 068 ms QT Int : 338 ms P-R-T Axes : 046 015 054 degrees QTc Int : 444 ms Poor data quality, interpretation may be adversely affected Sinus tachycardia Nonspecific ST abnormality Abnormal ECG When compared with ECG of 31-OCT-2020 12:16, Vent. rate has increased BY 42 BPM Confirmed by Deon Gonzalez ([id number]) on 03/22/2021 6:37:24 AM Referred By: Confirmed By:Deon Gonzalez
[2021-03-22 06:50] LABS: Estimated Average Glucose 237 mg/dl; Hemoglobin A1C 9.9 % (4.5-5.6)
[2021-03-22 07:03] LABS: Chol HDL Ratio 8; Cholesterol 209 mg/dl (0-200); HDL Cholesterol 27 mg/dl; LDL Cholesterol Calculated 133 mg/dl; Triglycerides 245 mg/dl (0-150); VLDL Cholesterol 49 mg/dl
[2021-03-22] MEDS: busPIRone 5 MG TAB PO SCH ×3 (08:12→20:19)
[2021-03-22] MEDS: lisinopril 20 MG TAB PO SCH (08:12)
[2021-03-22] MEDS: carvediloL 6.25 MG TAB PO SCH ×2 (08:12→17:18)
[2021-03-22] MEDS: DULoxetine HCL 30 MG CAP PO SCH (08:12)
[2021-03-22] MEDS: ASPIRIN 325 MG ECTAB PO SCH (08:13)
[2021-03-22] MEDS: ROSUVASTATIN CALCIUM 20 MG TAB PO SCH (08:13)
[2021-03-22] MEDS: INSULIN ASPART 100 UNITS/ML 3 ML PEN SC SCH ×4 (08:18→20:20)
[2021-03-22] MEDS: PANTOprazole 40 MG in SYRINGE 0 ML IV SCH ×2 (09:16→20:18)
[2021-03-22] MEDS: FAMOTIDINE 20 MG in SYRINGE 3 ML IV SCH (09:16)
--- NOTE | 2021-03-22 10:27 | Electrocardiogram Report ---
Test Reason : Blood Pressure : / mmHG Vent. Rate : 055 BPM Atrial Rate : 055 BPM P-R Int : 164 ms QRS Dur : 066 ms QT Int : 486 ms P-R-T Axes : 062 034 049 degrees QTc Int : 464 ms Sinus bradycardia Otherwise normal ECG When compared with ECG of 21-MAR-2021 06:15, (unconfirmed) Vent. rate has decreased BY [address] no longer depressed in Anterolateral leads Confirmed by Matty Pinto ([id number]) on 03/22/2021 10:26:49 AM Referred By: REFERRED SELF Confirmed By:Logan Pinto
[2021-03-22] MEDS: ALUMINUM/MAGNESIUM SUSP 30 ML UDC PO PRN (10:59)
[2021-03-22] MEDS ORDERED: ALUMINUM/MAGNESIUM SUSP 18 ML, LIDOCAINE VISCOUS 2% SOLN 6 ML, BARCODE IDENTIFIER 1 EA PO ONE (11:31)
[2021-03-22] MEDS ORDERED: CALCIUM CARBONATE 500 MG CHEWABLE TAB PO PRN (12:21)
[2021-03-22 13:02] LABS: Creatine Kinase 19 U/L (26-192); Creatine Kinase MB < 1.0 ng/ml (0.5-3.6); Troponin I 0.157 ng/ml (0-0.045)
--- NOTE | 2021-03-22 17:20 | Gastrointestinal Consultation ---
Date of Consultation March 22, 2021 Assessment & Plan (1) Esophagitis: Pt with documented severe esophagitis in the past and now is off medication for a year. I would resume her po protonix 40 mg po bid and see how she does. If she requires continued hospitalization then can do an EGD wednesday to rule out etiology other than peptic esophagitis. If she feels better and is going to be DCed then an outpt EGD can be arranged. N/V can be from untreated GERD also. History of Present Illness Reason for Consultation: epigastric pain, esophagitiis, n/v Requesting Physician: Melinda Desai PA-C Attending Physician: Josh Palacios, DO History of Present Illness Pt known to me from GI f/u with [facility]. Reviewed most recent OV with me 01/27/21 for hx of esophagitis, Barrets, rectal bleed, anal strictue. Reviewed most recent EGD 02/2020 no evidence or barretts, white plaques noted with cytology pos for yeast and treated with Diflucan. Reviewed most recent colonosocpy 02/2020 anal stricture and internal hemorroids. Reviewed EGD from 10/201920 grade D erosive esophagitis and path pos for Barretts. It was recommended that patient be on protonix bid and she states she has not taken it for a year. She present wtih epi pain, n/v, and chest pain. CT a/p small HH, mild distal esophageal wall thckening with debris filled esophagus . Troponins mildy elevated but cardioilgy does not feel CO and does not think CP is cardiac. Allergies Allergy/AdvReac Type Severity Reaction Status Date / Time cephalexin Allergy Intermediate Rash and Verified 03/21/21 08:27 itchiness Cephalosporins Allergy Intermediate Rash and Verified 03/21/21 08:27 itchiness Sulfa (Sulfonamide Allergy Intermediate Hives Verified 03/21/21 08:27 Antibiotics) Home Medications Medication Instructions Recorded Confirmed Type nitroglycerin 0.4 mg sublingual 0.4 mg SUBLINGUAL UD PRN #0 btl 07/27/17 03/21/21 History tablet (Nitrostat) omega 0-dhz-pxy-fish oil 1,000 mg 1,000 mg PO QAM #0 cap 07/27/17 03/21/21 History (120 mg-180 mg) capsule (Fish Oil) cholecalciferol (vitamin D3) 25 1,000 units PO QAM #0 tab 04/05/19 03/21/21 History mcg (1,000 unit) capsule (Vitamin D3) linaclotide 145 mcg capsule 145 mcg PO QAM PRN cap 04/05/19 03/21/21 History (Linzess) lisinopril 10 mg tablet 10 mg PO QAM #90 tab 11/20/19 03/21/21 Rx duloxetine 30 mg capsule,delayed 30 mg PO QAM #90 cap 01/25/20 03/21/21 Rx release buspirone 10 mg tablet 10 mg PO TID #90 tab 04/02/20 03/21/21 Rx metformin 500 mg tablet 1,000 mg PO BID #120 tab 04/24/20 03/21/21 Rx rosuvastatin 40 mg tablet 40 mg PO QAM #90 tab 07/18/20 03/21/21 Rx carvedilol 6.25 mg tablet 6.25 mg PO BID #180 tab 07/19/20 03/21/21 Rx isosorbide mononitrate 30 mg 30 mg PO QAM 09/11/20 03/21/21 History tablet,extended release 24 hr blood sugar diagnostic (OneTouch #200 ea 11/05/20 03/20/21 Rx Verio test strips) flash glucose scanning reader #1 ea 11/18/20 03/20/21 History (FreeStyle Renan 2 [place]) flash glucose sensor (FreeStyle #1 ea 11/18/20 03/20/21 History Renan 2 Sensor) pen needle, diabetic 32 gauge x ea 11/18/20 03/20/21 History 5/32" (BD Ultra-Fine [place] Pen Needle) ezetimibe 10 mg tablet (Zetia) 10 mg PO QAM 12/03/20 03/21/21 History insulin aspart U-100 100 unit/mL 20 unit SUBCUT DAILY #2 box 01/21/21 03/21/21 Rx (3 mL) subcutaneous pen (Novolog Flexpen U-100 Insulin aspart) insulin degludec 100 unit/mL (3 30 unit SQ QPM #2 box 01/21/21 03/21/21 Rx mL) subcutaneous pen (Tresiba FlexTouch U-100 insulin) famotidine 20 mg tablet 20 mg PO BID #60 tab 03/20/21 03/21/21 Rx pantoprazole 40 mg tablet,delayed 40 mg PO BID #60 tab 03/20/21 03/21/21 Rx release Patient History Medical History Mckeon esophagus CAD (coronary artery disease) s/p stents to RCA November 2005; s/p stents to LAD, LCx in January 2006; s/p stents to RCA in 08/2006 Cervical pain (neck) Chronic pain syndrome Depression Diabetes mellitus, type 2 IDDM Diabetic gastroparesis Diabetic peripheral neuropathy Dyslipidemia GERD without esophagitis HTN (hypertension) IBS (irritable bowel syndrome) Lumbar spondylosis Migraine headache Myocardial Infarction [place]- November 2005, January 2006, Aug 2006 3 total within an 8 month span--HX OF CATH 2013 [facility] [place], FOLLOWS WITH DR. JORGE A Queen Vitamin D deficiency Surgical History History of cardiac cath History of cataract surgery BL History of cholecystectomy History of colonoscopy with polypectomy History of esophageal dilatation History of esophagogastroduodenoscopy (EGD) History of lumbar spinal fusion History of tooth extraction all teeth History of total hysterectomy with bilateral salpingo-oophorectomy (BSO) History of total right knee replacement (TKR) S/P coronary artery stent placement Family History Brother Myocardial infarction Anxiety Heart disease Hypertension Cancer Sister Family history of reaction to anesthesia difficulty waking Hypertension Heart disease Myocardial infarction Anxiety Cancer Diabetes Father Anxiety Heart disease Hypertension Mother Anxiety Hypertension Heart disease Unknown Cancer skin, GI Denies family history of Ovarian cancer Prostate cancer Breast cancer Colorectal cancer Stroke Social History Smoking Status: Never smoker Tobacco Type: Cigarettes Age Started Using Tobacco: 18; Age Quit Using Tobacco: 22; Cigarettes Per Day: 3 cigarettes a week; Second Hand Exposure: No; Hx Alcohol Use: No Hx Substance Use: No Preferred Language: Austrian Communication Ability: Effective Visual Impairment: Limited Hearing Ability: Normal Pie Maker Required: No Beliefs That Will Affect Care: None marital status: / Current Living Situation: Alone current occupational status: retired and disabled How many Children do You have: 3 Feels Safe at Home: Yes Safety Concerns: Feels Safe At This Time Childhood Exposure to Second-Hand Smoke: No caffeine: Yes (drinks coffee, diet pepsi occasionally ) Dental Care, Regularly: No Physical Activity Frequency: Does not Exercise Seatbelt Use: always Sunscreen Use: No Assistive Devices: None Review of Systems Review of Systems: All systems reviewed & are unremarkable except as noted in HPI & below Physical Exam Constitutional: WD/WN, vitals as above Eyes: PERRL, conjunctivae normal, anicteric sclerae ENMT: Ears: no external ear abnormality Nose: no external nose abnormality Neck: normal visual inspection and trachea midline Respiratory: normal respiratory effort, lungs clear to auscultation Cardiovascular: RRR, no murmur, no edema Gastrointestinal (Abdomen): pos bs, soft, no guarding nor rebound Musculoskeletal: Head/Neck/Chest: + head abnormal to inspection Skin: no rashes, warm and dry Neurologic: PERRL, EOMI, accommodation nl, no face palsy, no dysarthria Psychiatric: A+Ox3, euthymic affect Results & Data ([facility]) Vital Signs (Past 12 Hours) Vital Signs Temp Pulse Pulse Resp BP BP Pulse Ox 03/22/21 16:09 36.6 C 56 L 16 135/82 97 03/22/21 15:13 58 L 03/22/21 11:08 36.7 C 66 16 103/70 94 03/22/21 07:45 53 L 03/22/21 07:32 36.6 C 62 18 124/75 96
--- NOTE | 2021-03-22 18:06 | Hospitalist Progress Note ---
Date of Service March 22, 2021 Assessment & Plan (1) Chest pain: Plan: -Patient was hospitalized to a cardiac monitored bed -The etiology of her chest pain seems GI in nature as it is reproducible on exam and alleviated with a GI cocktail. In addition, her CT scan was highly suggestive of esophagitis. 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 With additional episodes of chest pain, her troponin continues to downtrend. Unlikely ACS. Could have been elevated from accelerated BP. Has been seen by cardiology who agrees that nature of her symptomatology does not appear cardiac in nature. Patient had a stress echo 08/04 that showed no evidence of ischemia. Patient has been continued on her beta-stephani and is on topical Nitropaste. An echocardiogram was updated showing no regional wall motion abnormalities. -Again, nature of chest pain seems to be GI. It was alleviated with GI cocktail. -Continue PPI/H2 stephani -Would DC to home to see GI as an outpatient; however, patient tells me that she is not able to tolerate any oral intake. -Will obtain an esophagram to rule out an obvious stricture -Consult GIappreciate recommendations -If patient able to tolerate oral intake, can proceed with further GI work-up as an outpatient. If not, may consider EGD on Wednesday (2) Elevated troponin: Plan: -See above (3) Accelerated essential hypertension: Plan: -Patient had not taken her BP medication today -Her Coreg and lisinopril have since been resumed. BP controlled -Hold isosorbide for now and use topical paste for added vasodilation given her elevated troponin which I am not convinced is due to ACS -Clonidine as needed with parameters -We will further add medications pending subsequent BP readings (4) DM w/o complication type II, uncontrolled: Plan: -Continue Lantus as prior to hospitalization -NovoLog with sliding scale for carb coverage and correction dosing -A1c well above goal at 9.9. Lengthy discussion with patient regarding importance of good glycemic control. (5) Anxiety: Plan: -Continue Cymbalta (6) HTN (hypertension): Plan: -See above (7) Dyslipidemia: Plan: -Continue Crestor -Lipid panel done for restratification and given her high intensity statin, 10- year risk of having a cardiac event is 30 %/year. She needs to modify other risk factors including her BP and uncontrolled diabetes (8) CAD (coronary artery disease): Plan: -See above Plan: Plan of care will be discussed with Dr. Palacios. Further orders as warranted. Admission and Anticipated Discharge Date Admission Date: March 21, 2021 Subjective Patient seen on daily rounds today. Had another episode of crushing chest pain with radiation into her left shoulder. A repeat EKG was performed that was nonacute. Her troponin repeated and continues to trend downward. Provided a GI cocktail which completely alleviated her discomfort She denies shortness of breath with this She tells me she is not able to tolerate any oral intake because of the pain but has not vomited. She continues to tell me this although reports a 2 pound weight gain when she saw her PCP this past week Review of Systems Review of Systems: All systems reviewed and are unremarkable except as noted in HPI and below Denies fevers, chills, headache, nasal congestion, sore throat, cough, shortness of breath, abdominal pain, dysuria, hematuria, frequency, skin lesions or rashes. Physical Exam Physical Exam: General: Sitting in hospital bed with fisted hand at chest complaining of chest pain. NAD. Neck: No JVD. Negative hepatojugular reflex Cardiac: RRR without M/G/R Lungs: CTA without W/R/R Abdomen:[Normoactive X4. Exquisitely tender in the epigastrium and LUQ Extremities: No peripheral clubbing cyanosis or edema Neuro: A&O X4 cranial nerves II through XII are grossly intact no focal neuro deficits Skin: No obvious skin lesions or rashes Results & Data Results & Data ([facility]) Vital Signs (Past 12 Hours) Vital Signs Temp Pulse Pulse Resp BP BP Pulse Ox 03/22/21 16:09 36.6 C 56 L 16 135/82 97 03/22/21 15:13 58 L 03/22/21 11:08 36.7 C 66 16 103/70 94 03/22/21 07:45 53 L 03/22/21 07:32 36.6 C 62 18 124/75 96 Laboratory Results 03/21/21 06:25 03/21/21 06:25 Troponin: 0.30--> 0.249--> 0.207--> 0.157 Diagnostic Findings EKG: No acute changes PG Care Time/CCT Total # of Minutes Spent Total Time Spent with Patient: Total time spent is greater than 50% in coordination of care (as documented) at patient's floor/unit and/or counseling patient: C[place] [address] Subseq Hosp Care Lvl 2 Patient Type Established Diagnoses Chest pain R07.9 Elevated troponin R77.8 Accelerated essential hypertension I10 DM w/o complication type II, uncontrolled E11.65 Glycemic state: with hyperglycemia Anxiety F41.9 HTN (hypertension) I10 Dyslipidemia E78.5 CAD (coronary artery disease) I25.10 Coronary Disease-Associated Artery/Lesion type: [place] artery [place] vs. transplanted heart: [place] heart Associated angina: angina presence unspecified (1) DM w/o complication type II, uncontrolled Glycemic state: with hyperglycemia Qualified Code(s): E11.65 - Type 2 diabetes mellitus with hyperglycemia (2) CAD (coronary artery disease) Coronary Disease-Associated Artery/Lesion type: [place] artery [place] vs. transplanted heart: [place] heart Associated angina: angina presence unspecified Qualified Code(s): I25.10 - Atherosclerotic heart disease of [place] coronary artery without angina pectoris
[2021-03-22] MEDS: INSULIN GLARGINE SOLOSTAR 100 UNITS/ML 3 ML PEN SC SCH (20:20)
[2021-03-23] MEDS: NITROGLYCERIN 2% OINTMENT 30GM TUBE EXT SCH ×2 (03:26→08:38)
--- NOTE | 2021-03-23 07:24 | Electrocardiogram Report ---
Test Reason : Blood Pressure : / mmHG Vent. Rate : 061 BPM Atrial Rate : 061 BPM P-R Int : 158 ms QRS Dur : 066 ms QT Int : 442 ms P-R-T Axes : 055 027 046 degrees QTc Int : 444 ms Normal sinus rhythm Normal ECG When compared with ECG of 22-MAR-2021 05:54, No significant change was found Confirmed by Matty Pinto ([id number]) on 03/23/2021 7:24:33 AM Referred By: REFERRED SELF Confirmed By:Logan Pinto
[2021-03-23] MEDS: busPIRone 5 MG TAB PO SCH (08:32)
[2021-03-23] MEDS: DULoxetine HCL 30 MG CAP PO SCH (08:32)
[2021-03-23] MEDS: carvediloL 6.25 MG TAB PO SCH (08:32)
[2021-03-23] MEDS: ROSUVASTATIN CALCIUM 20 MG TAB PO SCH (08:32)
[2021-03-23] MEDS: lisinopril 20 MG TAB PO SCH (08:32)
[2021-03-23] MEDS: PANTOprazole 40 MG in SYRINGE 0 ML IV SCH (08:33)
[2021-03-23] MEDS: INSULIN ASPART 100 UNITS/ML 3 ML PEN SC SCH (08:34)
[2021-03-23] MEDS: FAMOTIDINE 20 MG in SYRINGE 3 ML IV SCH (08:38)
[2021-03-23] MEDS ORDERED: ENOXAPARIN INJ 40 MG/0.4 ML SYR SQ SCH (09:00)
--- NOTE | 2021-03-23 10:24 | Electrocardiogram Report ---
Test Reason : Blood Pressure : / mmHG Vent. Rate : 060 BPM Atrial Rate : 060 BPM P-R Int : 164 ms QRS Dur : 066 ms QT Int : 442 ms P-R-T Axes : 052 019 037 degrees QTc Int : 442 ms Normal sinus rhythm Normal ECG When compared with ECG of 22-MAR-2021 11:05, No significant change was found Confirmed by Matty Pinto ([id number]) on 03/23/2021 10:24:50 AM Referred By: REFERRED SELF Confirmed By:Logan Pinto
--- NOTE | 2021-03-23 17:37 | Discharge Summary ---
Date of Service March 23, 2021 Admission HPI Per Admitting Provider Mrs. Rosas is a 75-year-old white female with a past medical history of CAD s/p old MA X3, GERD, Mckeon's esophagitis, depression/anxiety, uncontrolled IDDM, and HTN. She presented to the ED complaining of ongoing chest pain X 3 weeks. Has been mostly constant in nature. It is left-sided with radiation into the left breast and described as dull. Has had increased eructation, abdominal bloating, and ongoing nausea with multiple bouts of emesis. Her appetite has been poor given her pain. She has not found any alleviating or aggravating factors. Saw PCP yesterday who felt patient's symptoms were GI related and prescribed pantoprazole/Pepcid. Patient has yet to pick these up from the pharmacy. Overnight, her pain intensified to a 10/10. In addition, she had intractable vomiting prompting her to come to the ED. In the ED, she was given IV pantoprazole x1, IV Pepcid X1, and IV Zofran X1. Her symptoms improved but did not alleviate. Work-up yielded an unremarkable CBC/metabolic panel. Lipase was normal. Her EKG showed a mild sinus tachycardia of 106 bpm. Normal axis. No acute ST/T wave changes. Her chest x-ray showed no acute cardiopulmonary process. Her CT of the abdomen and pelvis with contrast suggested distal esophageal debris with esophagitis. Patient's troponin was slightly elevated at 0.307. Blood pressure was 187/107. Patient does take lisinopril, Coreg, and isosorbide for blood pressure and has failed to take either of these medications prior to coming to the ED given her vomiting. Patient will be hospitalized for further evaluation and care. Principal Diagnosis Working diagnoses: 1. Chest painappears GI in nature 2. Positive troponinunlikely ACS but rather from accelerated HTN 3. Accelerated HTNcontrolled 4. Uncontrolled diabetes mellitus 5. Anxiety 6. Dyslipidemia 7. Known CAD Discharge Exam General: Resting comfortably in her hospital bed. Pleasant and in no acute distress Neck: No JVD. Negative hepatojugular reflex Cardiac: RRR without M/G/R Lungs: CTA without W/R/R Abdomen:Normoactive X4. Soft and nontender throughout Extremities: No peripheral clubbing cyanosis or edema Neuro: A&O X4 cranial nerves II through XII are grossly intact no focal neuro deficits Skin: No obvious skin lesions or rashes Discharge Data Allergies Allergy/AdvReac Type Severity Reaction Status Date / Time cephalexin Allergy Intermediate Rash and Verified 03/21/21 08:27 itchiness Cephalosporins Allergy Intermediate Rash and Verified 03/21/21 08:27 itchiness Sulfa (Sulfonamide Allergy Intermediate Hives Verified 03/21/21 08:27 Antibiotics) Consultations 03/21/21 08:46 ED Decision to Admit Stat 03/21/21 12:08 Consult Cardiology Routine Date of Consultation March 21, 2021 Assessment & Plan (1) Chest pain: (2) Elevated troponin: (3) CAD (coronary artery disease): (4) S/P coronary artery stent placement: (5) HTN (hypertension): (6) Dyslipidemia: ASSESSMENT/PLAN: 1. Elevated troponin: Minimally elevated and not diagnostic of myocardial infarction. Symptoms are not consistent with acute coronary syndrome. She certainly has underlying CAD with prior multivessel PCI. Current symptoms are more consistent with GI etiology. Elevated troponin may be due to uncontrolled hypertension with systolic blood pressure near 200 mmHg, in the setting of CAD. Recommend optimizing blood pressure. No indication for urgent cardiac catheterization. Normal LV systolic function and wall motion on echo. 2. Chest pain: Her chest pain is more consistent with GI etiology and has objective findings on CT scan concerning for esophagitis. Has had erosive esophagitis on prior EGDs as well. Symptoms have improved with GI cocktail. Recommend optimizing medical therapy for GI symptoms. Consider GI evaluation. 3. CAD s/p PCI (LAD, Cx OM, RCA): She is not presenting with acute coronary syndrome. She does have exertional dyspnea which is chronic and may or may not be related to CAD. Acute symptoms are more consistent with GI etiology. If symptoms liner roll changer the weekend or do not improve with GI management, could consider myocardial perfusion study next week. Given prior PCI, continue aspirin if no contraindication. 81 mg of aspirin is sufficient from a cardiology standpoint. If EGD is performed an aspirin appears to be contraindicated, would replace with Plavix 75 mg daily. She should receive some form of indefinite anti-platelet therapy given prior PCI. Continue ANNA- inhibitor, nitrate therapy, beta-stephani, and high-intensity statin therapy. 4. Hypertension: Poorly controlled. Optimize medical therapy to better control blood pressure. 5. Dyslipidemia: Continue high-intensity statin therapy. 6. Disposition: I will be away from the hospital. Please call on-call afloat cryptologic manager, Dr. Pinto, for any questions or concerns. She should follow-up with her primary afloat cryptologic manager, Dr. Lau, when she is discharged. Patient care communicated with Melinda Desai of the primary hospitalist service. Thank you for allowing me to participate in the care of your patient. Please call for any other questions or concerns. 03/21/21 17:36 Consult Gastroenterology Routine Pt with documented severe esophagitis in the past and now is off medication for a year. I would resume her po protonix 40 mg po bid and see how she does. If she requires continued hospitalization then can do an EGD wednesday to rule out etiology other than peptic esophagitis. If she feels better and is going to be DCed then an outpt EGD can be arranged. N/V can be from untreated GERD also. Ordered Studies 03/21/21 06:47 Diagnostic Findings CXR:IMPRESSION: No acute process. CT of the abdomen and pelvis: IMPRESSION: 1. Small hiatal hernia with mild distal esophageal wall thickening which may reflect esophagitis. Mildly debris-filled distal esophagus. 2. No bowel obstruction. No bowel wall thickening. ECG Additional Comments: Sinus tachycardia 106 bpm. Normal axis. No acute ST/T wave changes. Echocardiogram: EF of 65 to 70% with no regional wall motion abnormalities. Mild MR. Normal estimated RV systolic pressure. No significant change from previous study. Hospital Course (1) Chest pain: -Patient was hospitalized to a cardiac monitored bed -The etiology of her chest pain seems GI in nature as it is reproducible on exam and alleviated with a GI cocktail. In addition, her CT scan was highly suggestive of esophagitis. 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 With additional episodes of chest pain, her troponin continued to downtrend. In addition, multiple EKGs obtained with no acute ST/T wave changes. Unlikely ACS. Could have been elevated from accelerated BP. Has been seen by cardiology who agrees that nature of her symptomatology does not appear cardiac in nature. Patient had a stress echo 08/04 that showed no evidence of ischemia. Patient has been continued on her beta-stephani and was on topical Nitropaste for vasodilation. An echocardiogram was updated showing no regional wall motion abnormalities. -Patient was empirically placed on IV PPI and H2 stephani -Multiple GI cocktails given throughout the course of her hospital stay which did improve her chest pain -GI was consulted who recommended outpatient EGD unless pain uncontrolled then would proceed with EGD on Wednesday morning -By the morning of 03/23/2021, patient had significant improvement in her pain. She has been tolerating oral intake and feels well. She is requesting to be discharged home -At this time, will proceed with discharge and patient can follow-up with Dr. To as an outpatient -maintain antireflux lifestyle/diet as outlined below (2) Elevated troponin: -See above (3) Accelerated essential hypertension: -Patient had not taken her BP medication on the day of admission (BP 187/107) -Her Coreg and lisinopril have since been resumed. BP controlled -isosorbide held upfront and topical paste provided for vasodilation for concern of ACS upfront -Clonidine as needed with parameters (but not needed) -accelerated BP could have been contributing to her elevated troponin (4) DM w/o complication type II, uncontrolled: -Continue Lantus as prior to hospitalization -A1c well above goal at 9.9. Lengthy discussion with patient regarding importance of good glycemic control. (5) Anxiety: -Continue Cymbalta (6) HTN (hypertension): -See above (7) Dyslipidemia: -Continue Crestor -Lipid panel done for restratification and given her high intensity statin, 10- year risk of having a cardiac event is 30 %/year. She needs to modify other risk factors including her BP and uncontrolled diabetes (8) CAD (coronary artery disease): -See above Plan of care will be discussed with Dr. Palacios. Further orders as warranted. Total Time Total Time Spent Total Time Spent (In Minutes): 60 Discharge Plan Discharge Items Patient Disposition: Home - Self-Care Reason For Visit: Chest Pain Discharge Diagnosis: 1. chest Pain- suspect GI in nature 2. Mildly elevated troponin (heart enzyme)- ? secondary to uncontrolled blood pressure Activity: Resume your previous activity Non-emergency contact: Primary Care Provider Call non-emergency contact if: you have any medication questions Follow-up/Referrals: Lalito Pimentel MD [Primary Care Provider] - Lio To [Physician] - Diet: Other - See Diet Comment Diet Comment: Antireflux-- see below Addtl Attending Provider Instructions: - take medications as outlined - be sure to start the protonix and pepcid (take both twice a day for now) as started on the day prior to hospitalization - for breakthrough reflux/symptoms, can use maalox/gaviscon (OTC) - stick to an antireflux lifestyle: -- Frequent small meals (rather than 3 large meals) -- avoid eating after 6pm -- do not lay down for at least 30-60 min after eating -- avoid caffeine, chocolate, peppermint, citrus/spicy foods and alcohol. Also avoid tobacco - follow up with GI for EGD as an outpatient (call to make an appointment--[phone]) - follow up with your afloat cryptologic manager - follow up with PCP: 7-10 days - return to the Ed for new or worsening symptoms Pending Studies at Discharge: No Stand-Alone Forms: My [facility] [employer] Medications and DC Order Prescriptions: Continued nitroglycerin [Nitrostat] 0.4 mg Tablet, Sublingual 0.4 mg Sublingual UD PRN (Reason: Chest Pain) Qty: 0 RF: 0 omega 1-qlb-fjk-fish oil [Fish Oil] 1,000 mg (120 mg-180 mg) Capsule 1,000 mg PO QAM Qty: 0 RF: 0 cholecalciferol (vitamin D3) [Vitamin D3] 1,000 unit capsule 1,000 units PO QAM Qty: 0 RF: 0 lisinopril 10 mg tablet 10 mg PO QAM Qty: 90 RF: 3 duloxetine 30 mg capsule,delayed release(DR/EC) 30 mg PO QAM Qty: 90 RF: 1 buspirone 10 mg tablet 10 mg PO TID Qty: 90 RF: 0 rosuvastatin 40 mg tablet 40 mg PO QAM Qty: 90 RF: 3 (DME) OneTouch Verio test strips Strip See Dose Instructions .ROUTE .MEDSUPPLY Qty: 200 RF: 3 (DME) pen needle, diabetic [BD Ultra-Fine [place] Pen Needle] 32 gauge x 5/32" needle See Rx Instructions .ROUTE .MEDSUPPLY RF: 0 (DME) FreeStyle Renan 2 Sensor Kit See Rx Instructions .ROUTE .MEDSUPPLY Qty: 1 RF: 0 (DME) FreeStyle Renan 2 [place] Misc See Rx Instructions .ROUTE .MEDSUPPLY Qty: 1 RF: 0 pantoprazole 40 mg tablet,delayed release (DR/EC) 40 mg PO BID Qty: 60 RF: 0 famotidine 20 mg tablet 20 mg PO BID Qty: 60 RF: 2 Linzess 145 mcg capsule 145 mcg PO QAM PRN (Reason: Constipation) RF: 0 carvedilol 6.25 mg tablet 6.25 mg PO BID Qty: 180 RF: 3 metformin 500 mg tablet 1,000 mg PO BID Qty: 120 RF: 6 Tresiba FlexTouch U-100 100 unit/mL (3 mL) insulin pen 30 unit SQ QPM Qty: 2 RF: 3 insulin aspart U-100 [Novolog Flexpen U-100 Insulin] 100 unit/mL (3 mL) insulin pen 20 unit subcut DAILY Qty: 2 RF: 3 isosorbide mononitrate 30 mg tablet extended release 24 hr 30 mg PO QAM RF: 0 ezetimibe [Zetia] 10 mg tablet 10 mg PO QAM RF: 0 Discharge Orders: Discharge Order (Routine); Ordered 03/23/21 Ordered By: Melinda Stinson/Other Patient Handouts: Lifestyle Changes for Controlling GERD, Tips to Control Acid Reflux, Discharge Instructions- Eating a ..., Gastroesophageal Reflux Disease ... Admission Data Admit Date/Time: 03/21/21 10:23 Attending Provider: Josh Palacios Admit Provider: Josh Palacios Primary Care Provider: Lalito Pimentel Other Providers: Josh Palacios ; Deon Gonzalez ; Lio To Other Interventions: Discharge Summary Assessment (RN) Last Done: 03/23/21 10:10 Supervising Physician Co-Signing Physician Notes Patient seen and examined with Melinda CALDWELL. I agree with her discharge summary. patient feeling better with Protonix, GI cocktail appreciate cardiology and GI input - Chest pain, suspected to be due to esophagitis continue on PPI follow up with GI for consideration of EGD as outpatient Coding Level of Care Code D/C DAY MANAGEMENT >30 MINS Diagnoses Chest pain R07.9 Elevated troponin R77.8 Accelerated essential hypertension I10 DM w/o complication type II, uncontrolled E11.65 Glycemic state: with hyperglycemia Anxiety F41.9 HTN (hypertension) I10 Dyslipidemia E78.5 CAD (coronary artery disease) I25.10 Associated angina: angina presence unspecified Coronary Disease-Associated Artery/Lesion type: [place] artery [place] vs. transplanted heart: [place] heart Time Spent (min) 60
== END 2021-03-23 11:36 | disposition home or self-care (01) | DRG 392 ==
LOC: ED 06:02 → 2W 10:23 → INTOOBSV 10:23 → 2W 11:46

== ENCOUNTER 2021-10-24 10:48 | Observation (INO) ==
[2021-10-24] MEDS ORDERED: ONDANSETRON INJ 2 MG/ML 2 ML VIAL IV STA (11:11)
[2021-10-24] MEDS ORDERED: fentaNYL citrate 100 MCG/2 ML VIAL IV STA (11:11)
--- NOTE | 2021-10-24 11:14 | Emergency Department Note ---
Impression & Plan Generalized weakness, Hypomagnesemia, Acute hyperglycemia, Closed head injury, Intractable low back pain, Contusion of multiple sites ED Provider Note Name: SHIRA CUNNINGHAM Age: 76 Sex: F Arrives Via: Walk-In Informant: Patient ED Provider: Jace Mcgarry MD Chief Complaint: Fall Impression: As per impressions above Medical Decision Makin-year-old female with multiple medical comorbidities lives in assisted living arrives following a fall several days ago and intractable back pain since. She also has multiple contusions over her arms and legs primarily the left patient is quite uncomfortable complaining of her low back causing her pain. She also notes that when she fell she struck her head but did not have loss conscious. Patient was given IV narcotics with some improvement in her pain. A CT of the head for acute findings. A CT of the lumbar and pelvis was negative for acute findings. Patient had x-rays of the chest, forearm, acute findings. Labs reveal moderate hyperglycemia, low magnesium and no evidence of rhabdomyolysis at this time. Patient has requiring repeat dosing of her narcotics. She is clearly far too weak and has multiple laboratory abnormalities thus I feel hospitalization is reasonable. Covid testing was obtained which is negative. She did receive some IV insulin and IV magnesium as well. Hospitalist then to evaluate further Prior Medical Record and Triage/Nursing Notes reviewed by Me Additional history obtained from chart Differentials:Infection, dehydration, metabolic abnormality, hypo/hyperglycemia, electrolyte disturbance, anemia, hypoxia, cardiac sources, intracerebral event, toxicologic, neurologic, as well as other pathologies. Vital Signs: reviewed and remarkable for no significant abnormalities Interventions: Fentanyl 50 mcg IV, Zofran 4 mg IV, Dilaudid 0.5 mg IV, magnesium 1 g IV, insulin 4 units IV Labs:Reviewed and remarkable for hypomagnesemia, hyper glycemia Imaging:As per radiologist reads of CT head, CT lumbar/pelvis, x-rays of the ch est, left forearm, left ankle all negative as per radiologist for acute findings EKG:Per My Interpretation: Indication Weakness: NSR 98 bpm, qtc [address] depression. No Ectopy. No Ischemia. Compared to EKG 03/23/[address] depressions are new Cardiac/Tele Monitoring: Cardiac Monitoring: An Order was placed for continuous cardiac monitoring. The monitor shows a rate of 90 with a normal sinus rhythm. Consults:Dr Quentin GONZALEZ Hospitalist Plan: Disposition:Hospitalization. Condition: Good History of Present Illness:76-year-old female arrives for evaluation following a fall several days ago. Patient notes she was walking with her walker Becky evening when she tripped over her left knee gave out and she fell on her left side. When she fell she does not think she hit her head she also hit her left thigh and her left ankle was twisted. Patient also struck her left arm causing abrasion and notes some left forearm pain. Since then she has had a mild headache, worsening swelling in her legs and pain with using her left arm. She says she has severe back pain with any movement or trying to sit up but laying still it feels mildly better. She has not taken any medications for this. She said no previous back issues. She said no previous back surgeries. Patient notes that she is significantly weaker than she has been in the past. Says she is too weak to even get up now. States she has not been eating as well due to the pain. She notes tetanus vaccination within the last few months. ROS: See above HPI for pertinent positives & negatives. A total of 10 systems reviewed and were otherwise negative. Past Medical History:See Below Past Surgical History:See Below Family History:See Below Social History:See Below Home Medications:See Below Allergies:Keflex, Sulfa Vitals:Blood Pressure: 184/102, Pulse 103, RR 18, T 36.2C, O2 100% on RA Physical Exam: GENERAL: Patient is uncomfortable appearing and in moderate distress. EYES: No scleral icterus, unremarkable pupils. ENT: Mucous membranes moist, no nasal congestion. NECK: No masses appreciated, nomeningismus, trachea is midline. RESPIRATORY: No dyspnea. Clear to auscultation and equal bilaterally. No wheeze, no rhonchi. CARDIOVASCULAR: Regular rate and rhythm.No murmurs, rubs, gallops appreciated. GASTROINTESTINAL: Abdomen soft, non-tender, no peritonitis.Bowel sounds positive.No masses appreciated. BACK: TTP over low lumbar midline, no CVA tenderness EXTREMITIES: Normal motion all extremities, no cyanosis, 2+ edema bilateral lower legs. TTP over left medial ankle. TTP over left proximal forearm. Sc abbed over skin tear left proximal ulnar forearm. NEUROLOGIC: Alert and oriented, no acute motor or sensory deficits, no focal weakness, cranial nerves grossly intact. SKIN: No rash, no jaundice, no diaphoresis. PSYCH: Appropriate GCS: 15 ED Course: Times/Reassessments: Stable gradually improving pain after second dose of pain medications and agreeable to hospitalization. Jace Mcgarry MD Past Med/Surg History Medical History Mckeon esophagus CAD (coronary artery disease) s/p stents to RCA November 2005; s/p stents to LAD, LCx in January 2006; s/p stents to RCA in 08/2006 Cervical pain (neck) Chest pain Chronic pain syndrome Depression Diabetes mellitus, type 2 IDDM Diabetic gastroparesis Diabetic peripheral neuropathy Dyslipidemia GERD without esophagitis HTN (hypertension) IBS (irritable bowel syndrome) Lumbar spondylosis Migraine headache Myocardial Infarction [place]- November 2005, January 2006, Aug 2006 3 total within an 8 month span--HX OF CATH 2012 [facility] [place] FOLLOWS WITH DR. JULES Non-ST elevation (NSTEMI) myocardial infarction Obesity Vitamin D deficiency Surgical History History of cardiac cath last 2012 @ [facility] [place], no stents--s/p stents to RCA November 2005; s/p stents to LAD, LCx in January 2006; s/p stents to RCA in 08/2006 History of cataract surgery BL History of cholecystectomy History of colonoscopy with polypectomy History of esophageal dilatation History of esophagogastroduodenoscopy (EGD) History of lumbar spinal fusion History of tooth extraction all teeth History of total hysterectomy with bilateral salpingo-oophorectomy (BSO) History of total right knee replacement (TKR) S/P coronary artery stent placement s/p stents to RCA November 2005; s/p stents to LAD, LCx in January 2006; s/p stents to RCA in 08/2006 Status post trigger finger release right thumb Family History Brother Myocardial infarction Anxiety Heart disease Hypertension Cancer Sister Family history of reaction to anesthesia difficulty waking Hypertension Heart disease Myocardial infarction Anxiety Cancer Diabetes Father Anxiety Heart disease Hypertension Mother Anxiety Hypertension Heart disease Unknown Cancer skin, GI Denies family history of Ovarian cancer Prostate cancer Breast cancer Colorectal cancer Stroke Social History Smoking Status: Former smoker Tobacco Type: Cigarettes Age Started Using Tobacco: 18; Age Quit Using Tobacco: 22; Cigarettes Per Day: 3 cigarettes a week; Smoking End Date: ; Second Hand Exposure: No; Do You Dip or Chew Tobacco: No; Tobacco Cessation Education Requested by Patient: No Hx Alcohol Use: No Hx Substance Use: No Preferred Language: Chinese Communication Ability: Effective Visual Impairment: Limited Hearing Ability: Normal [employer] He[employer] Required: No Beliefs That Will Affect Care: None marital status: / Current Living Situation: Alone current occupational status: retired and disabled How many Children do You have: 3 Other Information That Helps Us Care for You: No Feels Safe at Home: Yes Safety Concerns: Feels Safe At This Time Childhood Exposure to Second-Hand Smoke: No caffeine: Yes (drinks coffee, diet pepsi occasionally ) Dental Care, Regularly: No Physical Activity Frequency: Does not Exercise Seatbelt Use: always Sunscreen Use: No Assistive Devices: Denture - Upper and Glasses Allergies Allergies Allergy/AdvReac Type Severity Reaction Status Date / Time cephalexin Allergy Intermediate Rash and Verified 10/24/21 14:03 itchiness Cephalosporins Allergy Intermediate Rash and Verified 10/24/21 14:03 itchiness Sulfa (Sulfonamide Allergy Intermediate Hives Verified 10/24/21 14:03 Antibiotics) Home Meds Home Medications Medication Instructions Recorded Confirmed nitroglycerin 0.4 mg sublingual 0.4 mg SUBLINGUAL UD PRN #0 btl 07/27/17 10/24/21 tablet (Nitrostat) omega 0-gjg-dnz-fish oil 1,000 mg 1,000 mg PO QAM #0 cap 07/27/17 10/24/21 (120 mg-180 mg) capsule (Fish Oil) cholecalciferol (vitamin D3) 25 1,000 units PO QAM #0 tab 04/05/19 10/24/21 mcg (1,000 unit) capsule (Vitamin D3) linaclotide 145 mcg capsule 145 mcg PO QAM PRN cap 04/05/19 10/24/21 (Linzess) pen needle, diabetic 32 gauge x ea 11/18/20 10/24/21 5/32" (BD Ultra-Fine [place] Pen Needle) ezetimibe 10 mg tablet (Zetia) 10 mg PO QAM 12/03/20 10/24/21 insulin degludec 100 unit/mL (3 33 unit SQ QPM 03/26/21 10/24/21 mL) subcutaneous pen (Tresiba FlexTouch U-100 insulin) flash glucose scanning reader 06/26/21 10/24/21 (FreeStyle Renan 2 [place]) flash glucose sensor (FreeStyle 06/26/21 10/24/21 Renan 2 Sensor) aspirin 81 mg tablet,delayed 81 mg PO QAM 10/24/21 10/24/21 release Previous Rx's Medication Instructions Recorded rosuvastatin 40 mg tablet 40 mg PO QAM #90 tab 07/18/20 insulin aspart U-100 100 unit/mL 20 unit SUBCUT DAILY #2 box 01/21/21 (3 mL) subcutaneous pen (Novolog Flexpen U-100 Insulin aspart) buspirone 10 mg tablet 10 mg PO TID #270 tab 05/07/21 famotidine 20 mg tablet 20 mg PO BID #180 tab 05/07/21 lisinopril 10 mg tablet 10 mg PO QAM #90 tab 05/07/21 metformin 500 mg tablet 1,000 mg PO BID #120 tab 05/07/21 pantoprazole 40 mg tablet,delayed 40 mg PO BID #60 tab 05/07/21 release ondansetron HCl 4 mg tablet 4 mg PO Q8H PRN #30 tab 06/24/21 Gvoke HypoPen 2-Pack 1 mg/0.2 mL 1 mg SUBCUT .COMPLEX #0.4 ml NS 06/27/21 subcutaneous auto-injector (glucagon) blood sugar diagnostic (OneTouch #200 ea 08/14/21 Verio test strips) carvedilol 6.25 mg tablet 6.25 mg PO BID #180 tab 08/19/21 duloxetine 30 mg capsule,delayed 30 mg PO QAM #90 cap 08/19/21 release isosorbide mononitrate 30 mg 60 mg PO QAM #180 tab 08/19/21 tablet,extended release 24 hr chlorthalidone 25 mg tablet 25 mg PO DAILY #30 tab 08/26/21 Results & Data (ED) Vital Signs Vital Signs - 24 hr 10/24/21 10:53 10/24/21 11:07 Temperature 36.2 C L Temperature Source Temporal Artery Scan Pulse Rate 108 H Pulse Rate [Right Finger] 103 H Pulse Rhythm Regular Pulse Strength Normal Respiratory Rate 20 18 Respiratory Effort / Characteristics Non-Labored Spontaneous Non-Labored Respiratory Depth Normal Normal Respiratory Pattern Regular Blood Pressure 190/93 H Blood Pressure [Right Arm] 184/102 H Blood Pressure Mean 125 Blood Pressure Mean [Right Arm] 129 Blood Pressure Position Sitting Pulse Oximetry 99 100 Oxygen Delivery Method Room Air Room Air Sepsis Recent Fever Within 48 Hours No Sepsis New/Unexplained Change in Mental Status No Sepsis Action Taken by Nursing No Action Required Laboratory Data Result diagrams: 10/25/21 05:58 10/25/21 05:58 Lab Results 10/24/21 10/24/21 10/24/21 Range/Units 11:21 11:21 11:21 WBC 9.12 (4.8-10.8) K/uL RBC 4.85 (4.2-5.4) M/uL Hgb 13.5 (12.0-16.0) g/dL Hct 40.8 (37-47) % MCV 84.1 (80-100) fL MCH 27.8 (25-34) pg MCHC 33.1 (32-36) g/dL RDW Std Deviation 42.8 (36.4-46.3) fL RDW Coeff of Tino 14.1 (11.5-14.5) % Plt Count 241 (130-400) K/uL MPV 10.2 (7.4-10.4) fL Immature Gran % (Auto) 0.4 % Neut % (Auto) 74.7 % Lymph % (Auto) 18.4 % [place] % (Auto) 5.5 % Eos % (Auto) 0.5 % Baso % (Auto) 0.5 % Neut # (Auto) 6.80 H (1.4-6.5) K/uL Lymph # (Auto) 1.68 (1.2-3.4) K/uL [place] # (Auto) 0.50 (0.11-0.59) K/uL Eos # (Auto) 0.05 (0-0.5) K/uL Baso # (Auto) 0.05 (0-0.2) K/uL Immature Gran # (Auto) 0.04 H (0.00-0.02) K/uL Sodium 134 L (136-145) mmol/L Potassium 3.9 (3.5-5.1) mmol/L Chloride 99 (98-107) mmol/L Carbon Dioxide 25 (21-32) mmol/L Anion Gap 10 (3-11) BUN 15 (6-23) mg/dl Creatinine 0.92 (0.6-1.2) mg/dl Est Cr Clr Drug Dosing 52.9 ml/min Est GFR ( Amer) 71.1 ml/min Est GFR (Non-Af Amer) 61.3 ml/min BUN/Creatinine Ratio 16.3 (10-20) Glucose 379 H* (70-99(Fasting)) mg/dl Calcium 9.0 (8.5-10.1) mg/dl Magnesium 1.4 L (1.7-2.4) mg/dl Total Bilirubin 0.5 (0.2-1.0) mg/dl Direct Bilirubin 0.0 (0-0.2) mg/dl AST 10 L (13-39) U/L ALT 13 (7-52) U/L Alkaline Phosphatase 88 (34-104) U/L Total Creatine Kinase 23 L (26-192) U/L Troponin I 0.16 H* (0-0.04) ng/ml Total Protein 7.0 (6.0-8.3) gm/dl Albumin 3.9 (3.4-5.0) gm/dl TSH 3.120 (0.300-4.500) uIu/ml SARS-CoV-2, RNA, NAAT (NEGATIVE) 10/24/21 Range/Units 13:25 WBC (4.8-10.8) K/uL RBC (4.2-5.4) M/uL Hgb (12.0-16.0) g/dL Hct (37-47) % MCV (80-100) fL MCH (25-34) pg MCHC (32-36) g/dL RDW Std Deviation (36.4-46.3) fL RDW Coeff of Tino (11.5-14.5) % Plt Count (130-400) K/uL MPV (7.4-10.4) fL Immature Gran % (Auto) % Neut % (Auto) % Lymph % (Auto) % [place] % (Auto) % Eos % (Auto) % Baso % (Auto) % Neut # (Auto) (1.4-6.5) K/uL Lymph # (Auto) (1.2-3.4) K/uL [place] # (Auto) (0.11-0.59) K/uL Eos # (Auto) (0-0.5) K/uL Baso # (Auto) (0-0.2) K/uL Immature Gran # (Auto) (0.00-0.02) K/uL Sodium (136-145) mmol/L Potassium (3.5-5.1) mmol/L Chloride (98-107) mmol/L Carbon Dioxide (21-32) mmol/L Anion Gap (3-11) BUN (6-23) mg/dl Creatinine (0.6-1.2) mg/dl Est Cr Clr Drug Dosing ml/min Est GFR ( Amer) ml/min Est GFR (Non-Af Amer) ml/min BUN/Creatinine Ratio (10-20) Glucose (70-99(Fasting)) mg/dl Calcium (8.5-10.1) mg/dl Magnesium (1.7-2.4) mg/dl Total Bilirubin (0.2-1.0) mg/dl Direct Bilirubin (0-0.2) mg/dl AST (13-39) U/L ALT (7-52) U/L Alkaline Phosphatase (34-104) U/L Total Creatine Kinase (26-192) U/L Troponin I (0-0.04) ng/ml Total Protein (6.0-8.3) gm/dl Albumin (3.4-5.0) gm/dl TSH (0.300-4.500) uIu/ml SARS-CoV-2, RNA, NAAT NEGATIVE (NEGATIVE) Administered Medications Acetaminophen (Acetaminophen 500 Mg Tab) 1,000 mg PO Q8 [facility] [place] Stop: 11/23/21 17:59 Last Admin: 10/25/21 05:50 Dose: 1,000 mg Documented by: [id number] Admin: 10/24/21 18:47 Dose: 1,000 mg Documented by: [id number] Aspirin (Aspirin 81 Mg Ectab) 81 mg PO QAM [facility] Stop: 11/23/21 17:59 Last Admin: 10/25/21 08:11 Dose: 81 mg Documented by: [id number] Admin: 10/24/21 18:47 Dose: 81 mg Documented by: [id number] Buspirone HCl (Buspirone 5 Mg Tab) 10 mg PO TID [facility] Stop: 11/23/21 20:59 Last Admin: 10/25/21 08:11 Dose: 10 mg Documented by: [id number] Admin: 10/24/21 20:34 Dose: 10 mg Documented by: [id number] Carvedilol (Carvedilol 6.25 Mg Tab) 6.25 mg PO BID [facility] Stop: 11/23/21 17:50 Last Admin: 10/25/21 08:11 Dose: 6.25 mg Documented by: [id number] Admin: 10/24/21 22:19 Dose: 6.25 mg Documented by: [id number] Admin: 10/24/21 18:48 Dose: 6.25 mg Documented by: [id number] Chlorthalidone (Chlorthalidone 25 Mg Tab) 25 mg PO DAILY [facility] [place] Stop: 11/23/21 17:50 Last Admin: 10/25/21 08:10 Dose: 25 mg Documented by: [id number] Admin: 10/24/21 18:49 Dose: 25 mg Documented by: [id number] Duloxetine HCl (Duloxetine Hcl 30 Mg Cap) 30 mg PO QAM [facility] Stop: 11/23/21 17:50 Last Admin: 10/25/21 08:10 Dose: 30 mg Documented by: [id number] Admin: 10/24/21 18:48 Dose: 30 mg Documented by: [id number] Ezetimibe (Ezetimibe 10 Mg Tablet) 10 mg PO QAM [facility] [place] Stop: 11/23/21 17:50 Last Admin: 10/25/21 08:09 Dose: 10 mg Documented by: [id number] Admin: 10/24/21 18:48 Dose: 10 mg Documented by: [id number] Enoxaparin Sodium (Enoxaparin Inj 40 Mg/0.4 Ml Syr) 40 mg SQ Q24H [facility] [place] Stop: 11/23/21 17:50 Last Admin: 10/24/21 20:34 Dose: 40 mg Documented by: [id number] Famotidine (Famotidine 20 Mg Tab) 20 mg PO BID [facility] [place] Stop: 11/23/21 20:59 Last Admin: 10/25/21 08:11 Dose: 20 mg Documented by: [id number] Admin: 10/24/21 20:35 Dose: 20 mg Documented by: [id number] Insulin Aspart (Insulin Aspart Per Unit) 0 units SC [facility] Stop: 11/23/21 17:50 Last Admin: 10/25/21 07:01 Dose: 9 units Documented by: [id number] Cosigned by: [id number] Admin: 10/24/21 20:37 Dose: 7 units Documented by: [id number] Cosigned by: [id number] Admin: 10/24/21 18:07 Dose: 7 units Documented by: [id number] Cosigned by: [id number] Insulin Glargine (Insulin Glargine Solostar 100 Units/Ml 3 Ml Pen) 33 units SC QPM [facility] [place] Stop: 11/23/21 20:59 Last Admin: 10/24/21 20:35 Dose: 33 units Documented by: [id number] Cosigned by: [id number] Isosorbide Mononitrate (Isosorbide [place] Extended Rel 60 Mg Tabcr) [facility] [place]: 11/23/21 17:50 Last Admin: 10/25/21 08:09 Dose: 60 mg Documented by: [id number] Admin: 10/24/21 18:48 Dose: 60 mg Documented by: [id number] Lidocaine (Lidocaine 5% 1 Patch) 1 patch TD [facility] Stop: 11/23/21 17:50 Last Admin: 10/25/21 08:12 Dose: 1 patch Documented by: [id number] Admin: 10/24/21 18:49 Dose: 1 patch Documented by: [id number] Lisinopril (Lisinopril 10 Mg Tab) [facility] [place]: 11/23/21 17:50 Last Admin: 10/25/21 08:10 Dose: 10 mg Documented by: [id number] Admin: 10/24/21 18:48 Dose: 10 mg Documented by: [id number] Miscellaneous (Remove Lidoderm Patch) 1 ea N/A DAILY@2100 [facility] [place] Stop: 11/23/21 22:59 Last Admin: 10/24/21 22:19 Dose: 1 ea Documented by: [id number] Oxycodone HCl (Oxycodone Hcl Ir 5 Mg Tab (Immediate Release)) 5 mg PO Q4 PRN PRN Reason: Pain Stop: 11/07/21 17:50 Last Admin: 10/24/21 23:48 Dose: 5 mg Documented by: [id number] Admin: 10/24/21 18:06 Dose: 5 mg Documented by: [id number] Pantoprazole Sodium (Pantoprazole 40 Mg Tab) 40 mg PO BID [facility] Stop: 11/23/21 17:50 Last Admin: 10/25/21 08:11 Dose: 40 mg Documented by: [id number] Admin: 10/24/21 20:37 Dose: 40 mg Documented by: [id number] Admin: 10/24/21 18:49 Dose: 40 mg Documented by: [id number] Rosuvastatin Calcium (Rosuvastatin Calcium 20 Mg Tab) 40 mg PO QAM [facility] Stop: 11/23/21 17:50 Last Admin: 10/25/21 08:10 Dose: 40 mg Documented by: [id number] Admin: 10/24/21 18:48 Dose: 40 mg Documented by: [id number] Vitamin D (Cholecalciferol 1,000 Units 25 Mcg Tab) [facility] [place]: 11/23/21 17:50 Last Admin: 10/25/21 08:10 Dose: 1,000 units Documented by: [id number] Admin: 10/24/21 18:49 Dose: 1,000 units Documented by: [id number] Discontinued Medications Fentanyl Citrate (Fentanyl Citrate 100 Mcg/2 Ml Vial) 50 mcg IV NOW STA Stop: 10/24/21 11:12 Last Admin: 10/24/21 11:30 Dose: 50 mcg Documented by: [id number] Hydromorphone HCl (Hydromorphone Inj 0.5 Mg/0.5 Ml Syr) 0.5 mg IV NOW STA Stop: 10/24/21 12:50 Last Admin: 10/24/21 13:25 Dose: 0.5 mg Documented by: [id number] Hydromorphone HCl (Hydromorphone Inj 0.5 Mg/0.5 Ml Syr) 0.5 mg IV NOW STA Stop: 10/24/21 20:15 Last Admin: 10/24/21 20:27 Dose: 0.5 mg Documented by: [id number] Magnesium Sulfate/Dextrose (Magnesium Sulfate / D5w) 1 gm in 100 mls @ 100 mls/hr IV NOW STA Stop: 10/24/21 13:46 Last Infusion: 10/24/21 15:22 Dose: 0 mls/hr Documented by: [id number] Admin: 10/24/21 13:24 Dose: 100 mls/hr Documented by: [id number] Insulin Human Regular 4 units/ (Syringe) 4 mls @ 30 mls/min IV NOW ONE Stop: 10/24/21 13:16 Last Admin: 10/24/21 13:25 Dose: Not Given Documented by: [id number] Magnesium Sulfate/Dextrose (Magnesium Sulfate / D5w) 1 gm in 100 mls @ 50 mls/hr IV Q2H STA Stop: 10/24/21 16:30 Last Infusion: 10/24/21 21:37 Dose: 0 mls/hr Documented by: [id number] Admin: 10/24/21 19:28 Dose: 50 mls/hr Documented by: [id number] Insulin Human Regular (Novolin-R Insulin Per Unit Charge) Confirm Administered Dose 4 units .ROUTE .STK-MED ONE Stop: 10/24/21 13:05 Last Admin: 10/24/21 13:25 Dose: Not Given Documented by: [id number] Ondansetron HCl (Ondansetron Inj 2 Mg/Ml 2 Ml Vial) 4 mg IV NOW STA Stop: 10/24/21 11:12 Last Admin: 10/24/21 11:30 Dose: 4 mg Documented by: [id number] Imaging Data Radiologist's Impression: Ankle X-Ray 10/24/21 11:11 XR ankle LT min 3V routine CLINICAL HISTORY: left ankle pain s/p fall COMPARISON STUDY: None. FINDINGS: Diffuse soft tissue swelling within the left ankle. No fracture or dislocation. Posterior and plantar calcaneal spurs are noted. IMPRESSION: Soft tissue swelling within the left ankle. No fractures. ACT 112: Negative or not required by law. Electronically signed by: Vijay Vega M.D. 10/24/2021 12:22 PM Chest X-Ray 10/24/21 11:11 XR chest 1V portable CLINICAL HISTORY: fall, weakness. Evaluate cardiopulmonary status COMPARISON STUDY: 03/21/2021 TECHNIQUE: 1 view of the chest FINDINGS: Single frontal view of the chest demonstrates the cardiomediastinal silhouette to be within normal limits. The lungs are clear of alveolar opacities. There is no evidence for pleural effusion. There is no evidence for vascular congestion. There is no acute osseous pathology. IMPRESSION: 1. No acute cardiopulmonary disease. ACT 112: Negative or not required by law. Electronically signed by: Jose Angel Capellan M.D. 10/24/2021 12:08 PM Forearm X-Ray 10/24/21 11:11 XR forearm LT 2V CLINICAL HISTORY: fall TECHNIQUE: 2 views of the left forearm were obtained. Comparison: None available at the time of this dictation. FINDINGS: There is no evidence of acute fracture or dislocation. The alignment is anatomic. Joint spaces are well-preserved. No soft tissue abnormality is seen. IMPRESSION: No evidence of acute bony injury. ACT 112: Negative or not required by law. Electronically signed by: Josh Lange M.D. 10/24/2021 12:[address] 10/24/21 11:[address] DOSE: 1003.45 mGycm HISTORY: fall, head injury, headache TECHNIQUE: Multiaxial CT images of the head were performed without the use of intravenous contrast. Automated exposure control was utilized for this study. A dose lowering technique was utilized adhering to the principles of ALARA. Comparison: None. Findings: The paranasal sinuses and mastoid air cells are clear. The calvarium and skull base are intact. The ventricles and sulci are within normal limits. There is no mass, hematoma, midline shift, or acute infarct. Impression: No acute intracranial abnormality. ACT 112: Negative or not required by law. Electronically signed by: Vijay Vega M.D. 10/24/2021 12:[address] 10/24/21 11:11 CT lumbar spine wo con CLINICAL HISTORY: fall, low back pain COMPARISON STUDY: No previous studies for comparison. CT DOSE: TECHNIQUE: Standard CT of the Lumbar Spine was performed without IV contrast. A dose lowering technique was utilized adhering to the principles of ALARA. FINDINGS: Bones: The bones are osteopenic. There is no evidence for an acute fracture or malalignment. The heights of the vertebral bodies are maintained. The vertebral bodies are in anatomic alignment. Disc spaces: The disc space heights are maintained. Facet joints: However, there is hypertrophic facet joint disease seen throughout the lumbar spine, greatest at the lumbosacral junction. Mild degenerative changes are seen involving the SI joints. Soft tissues: The prevertebral soft tissues are within normal limits. IMPRESSION: 1. Osteopenia with no acute abnormality. 2. 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 ACT 112: Negative or not required by law. Electronically signed by: Jose Angel Capellan M.D. 10/24/2021 12:[address] 10/24/21 11:14 CT pelvis wo con CLINICAL HISTORY: fall, low back and left hip pain TECHNIQUE: Helical axial images of the pelvis were obtained and displayed at 5 and 1 mm intervals. Automated dose lowering techniques and/or adjustment according to patient size were utilized for this exam. This exam was performed with intravenous contrast. COMPARISON: Comparison is made to CT abdomen pelvis 03/21/2021 FINDINGS: Bladder: Unremarkable. Reproductive organs: Patient is status post hysterectomy. Bowel: Unremarkable. Lymph nodes Mesenteric: Unremarkable. Pelvic: Unremarkable. Peritoneum: Metallic densities again seen in the pelvis. Vessels: Atherosclerotic calcifications are seen. Abdominal wall: Unremarkable. Bones: Degenerative changes in the visualized spine. IMPRESSION: No evidence of acute fracture. ACT 112: Negative or not required by law. Electronically signed by: Josh Lange M.D. 10/24/2021 12:43 PM Discharge Plan Visit Data Chief Complaint: Fall Stated Complaint: FALL WEDNESDAY, L SIDE SWOLLEN, WOUNDS ON ARM ED Provider: Jace Mcgarry Discharge Problem: Generalized weakness, Hypomagnesemia, Acute hyperglycemia, Closed head injury, Intractable low back pain, Contusion of multiple sites Patient Disposition: Admitted As Inpatient Discharge Instructions Interventions: ED Discharge Assessment Last Done: 10/24/21 16:50
[2021-10-24 11:44] LABS: Basophils # (auto) 0.05 K/uL (0-0.2); Basophils % (auto) 0.5 %; Eosinophils # (auto) 0.05 K/uL (0-0.5); Eosinophils % (auto) 0.5 %; Hematocrit (blood only) 40.8 % (37-47); Hemoglobin 13.5 g/dL (12.0-16.0); Immature Granulocytes # (auto) 0.04 K/uL (0.00-0.02); Immature Granulocytes % (auto) 0.4 %; Lymphocytes # (auto) 1.68 K/uL (1.2-3.4); Lymphocytes % (auto) 18.4 %; Mean Corpuscular Hemoglobin 27.8 pg (25-34); Mean Corpuscular Hgb Conc 33.1 g/dL (32-36); Mean Corpuscular Volume 84.1 fL (80-100); Mean Platelet Volume 10.2 fL (7.4-10.4); Monocytes % (auto) 5.5 %; Neutrophils % (auto) 74.7 %; Platelet Count 241 K/uL (130-400); RDW Coefficient of Variation 14.1 % (11.5-14.5); RDW Standard Deviation 42.8 fL (36.4-46.3); Red Blood Count 4.85 M/uL (4.2-5.4); White Blood Count 9.12 K/uL (4.8-10.8)
--- NOTE | 2021-10-24 12:09 | XRay Report ---
XR chest 1V portable CLINICAL HISTORY: fall, weakness. Evaluate cardiopulmonary status COMPARISON STUDY: 03/21/2021 TECHNIQUE: 1 view of the chest FINDINGS: Single frontal view of the chest demonstrates the cardiomediastinal silhouette to be within normal li mits. The lungs are clear of alveolar opacities. There is no evidence for pleural effusion. There is no evidence for vascular congestion. There is no acute osseous pathology. IMPRESSION: 1. No acute cardiopulmonary disease. ACT 112: Negative or not required by law. Electronically signed by: Jose Angel Capellan M.D. 10/24/2021 12:08 PM
--- NOTE | 2021-10-24 12:19 | XRay Report ---
XR forearm LT 2V CLINICAL HISTORY: fall TECHNIQUE: 2 views of the left forearm were obtained. Comparison: None available at the time of this dictation. FINDINGS: There is no evidence of acute fracture or dislocation. The alignment is anatomic. Joint spaces are we ll-preserved. No soft tissue abnormality is seen. IMPRESSION: No evidence of acute bony injury. ACT 112: Negative or not required by law. Electronically signed by: Josh Lange M.D. 10/24/2021 12:18 PM
--- NOTE | 2021-10-24 12:23 | XRay Report ---
XR ankle LT min 3V routine CLINICAL HISTORY: left ankle pain s/p fall COMPARISON STUDY: None. FINDINGS: Diffuse soft tissue swelling within the left ankle. No fracture or dislocation. Posterior a nd plantar calcaneal spurs are noted. IMPRESSION: Soft tissue swelling within the left ankle. No fractures. ACT 112: Negative or not required by law. Electronically signed by: Vijay Vega M.D. 10/24/2021 12:22 PM
[2021-10-24 12:27] LABS: Albumin Level 3.9 gm/dl (3.4-5.0); BUN Creatinine Ratio 16.3 (10-20); Bilirubin,Total 0.5 mg/dl (0.2-1.0); Creatinine Clr Calc Pharmacy 52.9 ml/min; Est GFR (African American) 71.1 ml/min; Est GFR (Non-African American) 61.3 ml/min; Magnesium 1.4 mg/dl (1.7-2.4); Potassium 3.9 mmol/L (3.5-5.1); Troponin I 0.16 ng/ml (0-0.04)
--- NOTE | 2021-10-24 12:41 | CT Scan Report ---
HEAD CT NONCONTRAST CT DOSE: 1003.45 mGycm HISTORY: fall, head injury, headache TECHNIQUE: Multiaxial CT images of the head were performed without the use of intravenous contrast. A utomated exposure control was utilized for this study. A dose lowering technique was utilized adheri ng to the principles of ALARA. Comparison: None. Findings: The paranasal sinuses and mastoid air cells are clear. The calvarium and skull base are int act. The ventricles and sulci are within normal limits. There is no mass, hematoma, midline shift, or acute infarct. Impression: No acute intracranial abnormality. ACT 112: Negative or not required by law. Electronically signed by: Vijay Vega M.D. 10/24/2021 12:39 PM
--- NOTE | 2021-10-24 12:42 | CT Scan Report ---
CT lumbar spine wo con CLINICAL HISTORY: fall, low back pain COMPARISON STUDY: No previous studies for comparison. CT DOSE: TECHNIQUE: Standard CT of the Lumbar Spine was performed without IV contrast. A dose lowering techni que was utilized adhering to the principles of ALARA. FINDINGS: Bones: The bones are osteopenic. There is no evidence for an acute fracture or malalignment. The heig hts of the vertebral bodies are maintained. The vertebral bodies are in anatomic alignment. Disc spaces: The disc space heights are maintained. Facet joints: However, there is hypertrophic facet joint disease seen throughout the lumbar spine, gr eatest at the lumbosacral junction. Mild degenerative changes are seen involving the SI joints. Soft tissues: The prevertebral soft tissues are within normal limits. IMPRESSION: 1. Osteopenia with no acute abnormality. 2. 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 ACT 112: Negative or not required by law. Electronically signed by: Jose Angel Capellan M.D. 10/24/2021 12:41 PM
--- NOTE | 2021-10-24 12:45 | CT Scan Report ---
CT pelvis wo con CLINICAL HISTORY: fall, low back and left hip pain TECHNIQUE: Helical axial images of the pelvis were obtained and displayed at 5 and 1 mm intervals. Au tomated dose lowering techniques and/or adjustment according to patient size were utilized for this e xam. This exam was performed with intravenous contrast. COMPARISON: Comparison is made to CT abdomen pelvis 03/21/2021 FINDINGS: Bladder: Unremarkable. Reproductive organs: Patient is status post hysterectomy. Bowel: Unremarkable. Lymph nodes Mesenteric: Unremarkable. Pelvic: Unremarkable. Peritoneum: Metallic densities again seen in the pelvis. Vessels: Atherosclerotic calcifications are seen. Abdominal wall: Unremarkable. Bones: Degenerative changes in the visualized spine. IMPRESSION: No evidence of acute fracture. ACT 112: Negative or not required by law. Electronically signed by: Josh Lange M.D. 10/24/2021 12:43 PM
[2021-10-24] MEDS ORDERED: INSULIN HUMAN REGULAR IV STA (12:47)
[2021-10-24] MEDS ORDERED: MAGNESIUM SULFATE / D5W 1 GM/100 ML BAG IV STA ×2 (12:47→14:31)
[2021-10-24] MEDS ORDERED: HYDROmorphone INJ 0.5 MG/0.5 ML SYR IV STA ×2 (12:49→20:14)
[2021-10-24] MEDS ORDERED: NovoLIN-R INSULIN PER UNIT CHARGE ONE (13:04)
[2021-10-24] MEDS ORDERED: INSULIN HUMAN REGULAR PER UNIT 4 UNITS in SYRINGE 3.96 ML IV ONE (13:15)
--- NOTE | 2021-10-24 13:44 | History & Physical Report ---
Date of Service October 24, 2021 Assessment & Plan (1) Fall: Plan: Mechanical fall due to give way of the knee, neither syncope nor arrhythmia suspected With pain in the left ankle and back, knee, and abrasion left forearm PT/OT eval's ordered (2) Back pain: Plan: With severe lower back pain right greater than left without radiculopathy CT lumbar spine negative, nonfocal neuro exam -Add lidocaine patch -Tylenol 1000 mg p.o. 3 times daily scheduled -Oxycodone as needed for severe breakthrough pain (3) Ankle pain, left: Plan: Suspect left ankle sprain X-rays of the ankle and foot negative for fracture -Consult orthopedics for further evaluation -Ice to the area Tylenol and pain control as above PT/OT consults (4) Hypomagnesemia: Plan: Likely due to poor p.o. intake recently She does report cramps in the legs and hands recently Replace with IV magnesium 3 g Check level in the morning (5) Elevated troponin: Plan: Mildly elevated troponin at 0.16 She denies chest pain She does have a history of CAD with multiple stents in place in the RCA and LAD -Serial troponins, ECG (6) Abrasion: Plan: Left forearm Wound care (7) Anxiety: Plan: Continue duloxetine, BuSpar (8) DM w/o complication type II, uncontrolled: Plan: Continue basal bolus insulin Check hemoglobin A1c in the morning Hold home metformin (9) GERD (gastroesophageal reflux disease): Plan: Continue Pepcid and Protonix Having worsening heartburn symptoms last few weeks Maalox as needed May need to return to GI for EGD as an outpatient (10) Diabetic neuropathy: Plan: Continue duloxetine (11) Depression: Plan: Continue duloxetine (12) Diabetic gastroparesis: Plan: Noted (13) HTN (hypertension): Plan: Blood pressures mildly elevated Continue home carvedilol, chlorthalidone, isosorbide, lisinopril (14) Obesity (BMI 30.0-34.9): Plan: BMI 30.3 Needs weight loss (15) CAD (coronary artery disease): Plan: With history of stents RCA and LAD in 2005 2006 Continue home rosuvastatin, carvedilol, aspirin, lisinopril, isosorbide (16) Vitamin D deficiency: Plan: Continue home vitamin D (17) Dyslipidemia: Plan: Continue rosuvastatin, Zetia Hold home omega-3 (18) Chronic pain syndrome: Plan: Continue duloxetine Plan: DVT prophylaxis Lovenox, SCDs Disposition-admit to medical floor telemetry while ruling out OK, but if stable from cardiac standpoint, can downgrade to medical/surgical floor in 24 hours. DNR/DNI as per discussion with patient. 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 She does have a sister and a daughter who could also be involved in her care but she wishes for Franck to be her main decision maker in the event she is not able to make decisions. History of Present Illness Chief Complaint: Fall, pain, generalized weakness Primary Care Provider: Lalito Pimentel MD This patient is a 76-year-old female with a history of DM 2, CAD s/p stent in 2005, HTN, chronic diastolic CHF, gastroparesis, hyperlipidemia, left knee OA, GERD with Mckeon's esophagus and erosive esophagitis, who presents to the ER with a mild headache, pain in the legs and left arm as well as left ankle, and severe back pain with movement. This was all following a fall two days ago that occurred while walking in her kitchen without her walker and her left knee gave out. She fell down on her left side and scraped her left forearm and twisted her left ankle. She did hit her head but denies loss of consciousness, still has mild headache. She had her neighbors come and get her off the floor that day and was able to ambulate. Then since yesterday, had onset of significant lower back pain and pain in the left ankle with swelling in the ankles left greater than right. She was not able to get out of bed without assistance and had her neighbors bring her to the hospital. She did not take any of her medications including her insulin today. She denies any chest pains or shortness of breath, but has had worsening indigestion over the last few weeks. No abdominal pains, no trouble with constipation or diarrhea, no urinary symptoms. In the ER, she was hyperglycemic with sugar in the high 300s, her magnesium was low at 1.4, and troponin was mildly elevated but not more than previous. CT scans were performed of the head, lumbar spine, pelvis, and x-rays performed of the left ankle, left forearm, and chest-all were negative. In the ER, she was given IV fentanyl, IV Dilaudid, 4 units of IV regular insulin, and 1 g of magnesium IV as well as Zofran. She was unable to ambulate and will need to be admitted for pain control and evaluation for rehab placement as well as for electrolyte replacement. Allergies Allergy/AdvReac Type Severity Reaction Status Date / Time cephalexin Allergy Intermediate Rash and Verified 10/24/21 14:03 itchiness Cephalosporins Allergy Intermediate Rash and Verified 10/24/21 14:03 itchiness Sulfa (Sulfonamide Allergy Intermediate Hives Verified 10/24/21 14:03 Antibiotics) Home Medications Medication Instructions Recorded Confirmed Type nitroglycerin 0.4 mg sublingual 0.4 mg SUBLINGUAL UD PRN #0 btl 07/27/17 10/24/21 History tablet (Nitrostat) omega 3-dzz-tmx-fish oil 1,000 mg 1,000 mg PO QAM #0 cap 07/27/17 10/24/21 History (120 mg-180 mg) capsule (Fish Oil) cholecalciferol (vitamin D3) 25 1,000 units PO QAM #0 tab 04/05/19 10/24/21 History mcg (1,000 unit) capsule (Vitamin D3) linaclotide 145 mcg capsule 145 mcg PO QAM PRN cap 04/05/19 10/24/21 History (Linzess) rosuvastatin 40 mg tablet 40 mg PO QAM #90 tab 07/18/20 10/24/21 Rx pen needle, diabetic 32 gauge x ea 11/18/20 10/24/21 History 5/32" (BD Ultra-Fine [place] Pen Needle) ezetimibe 10 mg tablet (Zetia) 10 mg PO QAM 12/03/20 10/24/21 History insulin aspart U-100 100 unit/mL 20 unit SUBCUT DAILY #2 box 01/21/21 10/24/21 Rx (3 mL) subcutaneous pen (Novolog Flexpen U-100 Insulin aspart) insulin degludec 100 unit/mL (3 33 unit SQ QPM 03/26/21 10/24/21 History mL) subcutaneous pen (Tresiba FlexTouch U-100 insulin) buspirone 10 mg tablet 10 mg PO TID #270 tab 05/07/21 10/24/21 Rx famotidine 20 mg tablet 20 mg PO BID #180 tab 05/07/21 10/24/21 Rx lisinopril 10 mg tablet 10 mg PO QAM #90 tab 05/07/21 10/24/21 Rx metformin 500 mg tablet 1,000 mg PO BID #120 tab 05/07/21 10/24/21 Rx pantoprazole 40 mg tablet,delayed 40 mg PO BID #60 tab 05/07/21 10/24/21 Rx release ondansetron HCl 4 mg tablet 4 mg PO Q8H PRN #30 tab 06/24/21 10/24/21 Rx flash glucose scanning reader 06/26/21 10/24/21 History (FreeStyle Renan 2 Kiester) flash glucose sensor (FreeStyle 06/26/21 10/24/21 History Renan 2 Sensor) Gvoke HypoPen 2-Pack 1 mg/0.2 mL 1 mg SUBCUT .COMPLEX #0.4 ml NS 06/27/21 10/24/21 Rx subcutaneous auto-injector (glucagon) blood sugar diagnostic (OneTouch #200 ea 08/14/21 10/24/21 Rx Verio test strips) carvedilol 6.25 mg tablet 6.25 mg PO BID #180 tab 08/19/21 10/24/21 Rx duloxetine 30 mg capsule,delayed 30 mg PO QAM #90 cap 08/19/21 10/24/21 Rx release isosorbide mononitrate 30 mg 60 mg PO QAM #180 tab 08/19/21 10/24/21 Rx tablet,extended release 24 hr chlorthalidone 25 mg tablet 25 mg PO DAILY #30 tab 08/26/21 10/24/21 Rx aspirin 81 mg tablet,delayed 81 mg PO QAM 10/24/21 10/24/21 History release Past Med/Surg History Medical History Mckeon esophagus CAD (coronary artery disease) s/p stents to RCA November 2005; s/p stents to LAD, LCx in January 2006; s/p stents to RCA in 08/2006 Cervical pain (neck) Chest pain Chronic pain syndrome Depression Diabetes mellitus, type 2 IDDM Diabetic gastroparesis Diabetic peripheral neuropathy Dyslipidemia GERD without esophagitis HTN (hypertension) IBS (irritable bowel syndrome) Lumbar spondylosis Migraine headache Myocardial Infarction [place]- November 2005, January 2006, Aug 2006 3 total within an 8 month span--HX OF CATH 2012 [facility] [place] FOLLOWS WITH DR. JULES Non-ST elevation (NSTEMI) myocardial infarction Obesity Vitamin D deficiency Surgical History History of cardiac cath last 2012 @ [facility] [place], no stents--s/p stents to RCA November 2005; s/p stents to LAD, LCx in January 2006; s/p stents to RCA in 08/2006 History of cataract surgery BL History of cholecystectomy History of colonoscopy with polypectomy History of esophageal dilatation History of esophagogastroduodenoscopy (EGD) History of lumbar spinal fusion History of tooth extraction all teeth History of total hysterectomy with bilateral salpingo-oophorectomy (BSO) History of total right knee replacement (TKR) S/P coronary artery stent placement s/p stents to RCA November 2005; s/p stents to LAD, LCx in January 2006; s/p stents to RCA in 08/2006 Status post trigger finger release right thumb Family History Brother Myocardial infarction Anxiety Heart disease Hypertension Cancer Sister Family history of reaction to anesthesia difficulty waking Hypertension Heart disease Myocardial infarction Anxiety Cancer Diabetes Father Anxiety Heart disease Hypertension Mother Anxiety Hypertension Heart disease Unknown Cancer skin, GI Denies family history of Ovarian cancer Prostate cancer Breast cancer Colorectal cancer Stroke Social History Smoking Status: Former smoker Tobacco Type: Cigarettes Age Started Using Tobacco: 18; Age Quit Using Tobacco: 22; Cigarettes Per Day: 3 cigarettes a week; Smoking End Date: ; Second Hand Exposure: No; Do You Dip or Chew Tobacco: No; Tobacco Cessation Education Requested by Patient: No Hx Alcohol Use: No Hx Substance Use: No Preferred Language: Yi Communication Ability: Effective Visual Impairment: Limited Hearing Ability: Normal Music Instructor Required: No Beliefs That Will Affect Care: None marital status: / Current Living Situation: Alone current occupational status: retired and disabled How many Children do You have: 3 Other Information That Helps Us Care for You: No Feels Safe at Home: Yes Safety Concerns: Feels Safe At This Time Childhood Exposure to Second-Hand Smoke: No caffeine: Yes (drinks coffee, diet pepsi occasionally ) Dental Care, Regularly: No Physical Activity Frequency: Does not Exercise Seatbelt Use: always Sunscreen Use: No Assistive Devices: Denture - Upper, Glasses and Walker Review of Systems Review of Systems: All systems reviewed & are unremarkable except as noted in HPI & below Physical Exam Constitutional: WD/WN, vitals as above Eyes: PERRL, conjunctivae normal, anicteric sclerae ENMT: external ear and nose normal, oropharynx normal Neck: trachea midline, no thyromegaly Respiratory: normal respiratory effort, lungs clear to auscultation Cardiovascular: Rate/Rhythm: regular rate and regular rhythm Heart Sounds: no murmur Extremities: + edema (Ankle edema 1+ pitting left greater than right) Chest (Breasts): Chest: normal inspection of chest Gastrointestinal (Abdomen): normal bowel sounds, soft, nontender, no hepatosplenomegaly Musculoskeletal: Extremities: + extremities abnormal to inspection (Swelling left ankle, no erythema), no cyanosis and no clubbing Very limited range of motion with plantar and dorsiflexion, inversion and eversion with left ankle both actively and passively Positive tenderness to palpation over left lateral malleolus as well as mid foot dorsally Left knee with pain with flexion, no effusion or tenderness to palpation Positive significant pain with forward flexion at the lumbar spine, no tenderness to palpation over spinous processes, no masses or bruising in the back Skin: no rashes, warm and dry Left forearm with 5 x 2 cm superficial abrasion with minor bleeding and skin tear No surrounding erythema Neurologic: moves all extremities and awake; no focal motor deficits and not confused Motor/Sensory: no tremor and no sensory deficit Psychiatric: A+Ox3, euthymic affect Lymphatic: no lymphedema Results & Data Results & Data ([facility]) Vital Signs (Past 12 Hours) Vital Signs Temp Pulse Pulse Resp BP BP Pulse Ox 10/24/21 11:07 103 H 18 184/102 H 100 10/24/21 10:53 36.2 C L 108 H 20 190/93 H 99 Laboratory Results 10/24/21 10/24/21 10/24/21 Range/Units 13:25 11:21 11:21 WBC 9.12 (4.8-10.8) K/uL RBC 4.85 (4.2-5.4) M/uL Hgb 13.5 (12.0-16.0) g/dL Hct 40.8 (37-47) % MCV 84.1 (80-100) fL MCH 27.8 (25-34) pg MCHC 33.1 (32-36) g/dL RDW Std Deviation 42.8 (36.4-46.3) fL RDW Coeff of Tino 14.1 (11.5-14.5) % Plt Count 241 (130-400) K/uL MPV 10.2 (7.4-10.4) fL Immature Gran % (Auto) 0.4 % Neut % (Auto) 74.7 % Lymph % (Auto) 18.4 % [place] % (Auto) 5.5 % Eos % (Auto) 0.5 % Baso % (Auto) 0.5 % Neut # (Auto) 6.80 H (1.4-6.5) K/uL Lymph # (Auto) 1.68 (1.2-3.4) K/uL [place] # (Auto) 0.50 (0.11-0.59) K/uL Eos # (Auto) 0.05 (0-0.5) K/uL Baso # (Auto) 0.05 (0-0.2) K/uL Immature Gran # (Auto) 0.04 H (0.00-0.02) K/uL Sodium (136-145) mmol/L Potassium (3.5-5.1) mmol/L Chloride (98-107) mmol/L Carbon Dioxide (21-32) mmol/L Anion Gap (3-11) BUN (6-23) mg/dl Creatinine (0.6-1.2) mg/dl Est Cr Clr Drug Dosing ml/min Est GFR ( Amer) ml/min Est GFR (Non-Af Amer) ml/min BUN/Creatinine Ratio (10-20) Glucose (70-99(Fasting)) mg/dl Calcium (8.5-10.1) mg/dl Magnesium (1.7-2.4) mg/dl Total Bilirubin (0.2-1.0) mg/dl Direct Bilirubin (0-0.2) mg/dl AST (13-39) U/L ALT (7-52) U/L Alkaline Phosphatase (34-104) U/L Total Creatine Kinase (26-192) U/L Troponin I (0-0.04) ng/ml Total Protein (6.0-8.3) gm/dl Albumin (3.4-5.0) gm/dl TSH 3.120 (0.300-4.500) uIu/ml SARS-CoV-2, RNA, NAAT Pending 10/24/21 Range/Units 11:21 WBC (4.8-10.8) K/uL RBC (4.2-5.4) M/uL Hgb (12.0-16.0) g/dL Hct (37-47) % MCV (80-100) fL MCH (25-34) pg MCHC (32-36) g/dL RDW Std Deviation (36.4-46.3) fL RDW Coeff of Tino (11.5-14.5) % Plt Count (130-400) K/uL MPV (7.4-10.4) fL Immature Gran % (Auto) % Neut % (Auto) % Lymph % (Auto) % [place] % (Auto) % Eos % (Auto) % Baso % (Auto) % Neut # (Auto) (1.4-6.5) K/uL Lymph # (Auto) (1.2-3.4) K/uL [place] # (Auto) (0.11-0.59) K/uL Eos # (Auto) (0-0.5) K/uL Baso # (Auto) (0-0.2) K/uL Immature Gran # (Auto) (0.00-0.02) K/uL Sodium 134 L (136-145) mmol/L Potassium 3.9 (3.5-5.1) mmol/L Chloride 99 (98-107) mmol/L Carbon Dioxide 25 (21-32) mmol/L Anion Gap 10 (3-11) BUN 15 (6-23) mg/dl Creatinine 0.92 (0.6-1.2) mg/dl Est Cr Clr Drug Dosing 52.9 ml/min Est GFR ( Amer) 71.1 ml/min Est GFR (Non-Af Amer) 61.3 ml/min BUN/Creatinine Ratio 16.3 (10-20) Glucose 379 H* (70-99(Fasting)) mg/dl Calcium 9.0 (8.5-10.1) mg/dl Magnesium 1.4 L (1.7-2.4) mg/dl Total Bilirubin 0.5 (0.2-1.0) mg/dl Direct Bilirubin 0.0 (0-0.2) mg/dl AST 10 L (13-39) U/L ALT 13 (7-52) U/L Alkaline Phosphatase 88 (34-104) U/L Total Creatine Kinase 23 L (26-192) U/L Troponin I 0.16 H* (0-0.04) ng/ml Total Protein 7.0 (6.0-8.3) gm/dl Albumin 3.9 (3.4-5.0) gm/dl TSH (0.300-4.500) uIu/ml SARS-CoV-2, RNA, NAAT Diagnostic Findings Ankle X-Ray 10/24/21 11:11 XR ankle LT min 3V routine CLINICAL HISTORY: left ankle pain s/p fall COMPARISON STUDY: None. FINDINGS: Diffuse soft tissue swelling within the left ankle. No fracture or dislocation. Posterior and plantar calcaneal spurs are noted. IMPRESSION: Soft tissue swelling within the left ankle. No fractures. ACT 112: Negative or not required by law. Electronically signed by: Vijay Vega M.D. 10/24/2021 12:22 PM Chest X-Ray 10/24/21 11:11 XR chest 1V portable CLINICAL HISTORY: fall, weakness. Evaluate cardiopulmonary status COMPARISON STUDY: 03/21/2021 TECHNIQUE: 1 view of the chest FINDINGS: Single frontal view of the chest demonstrates the cardiomediastinal silhouette to be within normal limits. The lungs are clear of alveolar opacities. There is no evidence for pleural effusion. There is no evidence for vascular congestion. There is no acute osseous pathology. IMPRESSION: 1. No acute cardiopulmonary disease. ACT 112: Negative or not required by law. Electronically signed by: Jose Angel Capellan M.D. 10/24/2021 12:08 PM Forearm X-Ray 10/24/21 11:11 XR forearm LT 2V CLINICAL HISTORY: fall TECHNIQUE: 2 views of the left forearm were obtained. Comparison: None available at the time of this dictation. FINDINGS: There is no evidence of acute fracture or dislocation. The alignment is anatomic. Joint spaces are well-preserved. No soft tissue abnormality is seen. IMPRESSION: No evidence of acute bony injury. ACT 112: Negative or not required by law. Electronically signed by: Josh Lange M.D. 10/24/2021 12:[address] 10/24/21 11:[address] DOSE: 1003.45 mGycm HISTORY: fall, head injury, headache TECHNIQUE: Multiaxial CT images of the head were performed without the use of intravenous contrast. Automated exposure control was utilized for this study. A dose lowering technique was utilized adhering to the principles of ALARA. Comparison: None. Findings: The paranasal sinuses and mastoid air cells are clear. The calvarium and skull base are intact. The ventricles and sulci are within normal limits. There is no mass, hematoma, midline shift, or acute infarct. Impression: No acute intracranial abnormality. ACT 112: Negative or not required by law. Electronically signed by: Vijay Vega M.D. 10/24/2021 12:[address] 10/24/21 11:11 CT lumbar spine wo con CLINICAL HISTORY: fall, low back pain COMPARISON STUDY: No previous studies for comparison. CT DOSE: TECHNIQUE: Standard CT of the Lumbar Spine was performed without IV contrast. A dose lowering technique was utilized adhering to the principles of ALARA. FINDINGS: Bones: The bones are osteopenic. There is no evidence for an acute fracture or malalignment. The heights of the vertebral bodies are maintained. The vertebral bodies are in anatomic alignment. Disc spaces: The disc space heights are maintained. Facet joints: However, there is hypertrophic facet joint disease seen throughout the lumbar spine, greatest at the lumbosacral junction. Mild degenerative changes are seen involving the SI joints. Soft tissues: The prevertebral soft tissues are within normal limits. IMPRESSION: 1. Osteopenia with no acute abnormality. 2. 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 ACT 112: Negative or not required by law. Electronically signed by: Jose Angel Capellan M.D. 10/24/2021 12:[address] 10/24/21 11:14 CT pelvis wo con CLINICAL HISTORY: fall, low back and left hip pain TECHNIQUE: Helical axial images of the pelvis were obtained and displayed at 5 and 1 mm intervals. Automated dose lowering techniques and/or adjustment according to patient size were utilized for this exam. This exam was performed with intravenous contrast. COMPARISON: Comparison is made to CT abdomen pelvis 03/21/2021 FINDINGS: Bladder: Unremarkable. Reproductive organs: Patient is status post hysterectomy. Bowel: Unremarkable. Lymph nodes Mesenteric: Unremarkable. Pelvic: Unremarkable. Peritoneum: Metallic densities again seen in the pelvis. Vessels: Atherosclerotic calcifications are seen. Abdominal wall: Unremarkable. Bones: Degenerative changes in the visualized spine. IMPRESSION: No evidence of acute fracture. ACT 112: Negative or not required by law. Electronically signed by: Josh Lange M.D. 10/24/2021 12:43 PM ECG Additional Comments: ECG on 10/24/2021 at 1135 with normal sinus rhythm, ST depressions in anterolateral leads changed from previous Code Status & VTE Plan VTE Prophylaxis Plan VTE Prophylaxis will be ordered: Yes PG Care Time/CCT Total # of Minutes Spent Total Time Spent with Patient: Total time spent is greater than 50% in coordination of care (as documented) at patient's floor/unit and/or counseling patient: Coding Level of Care Code 91821 Initial Inpt Care Lvl 3 Diagnoses Anxiety F41.9 DM w/o complication type II, uncontrolled E11.65 Glycemic state: with hyperglycemia GERD (gastroesophageal reflux disease) K21.9 Esophagitis presence: without esophagitis Diabetic neuropathy E11.40 Depression F32.9 Diabetic gastroparesis E11.43; K31.84 HTN (hypertension) I10 Hypomagnesemia E83.42 Obesity (BMI 30.0-34.9) E66.9 CAD (coronary artery disease) I25.10 Associated angina: angina presence unspecified Coronary Disease-Associated Artery/Lesion type: [place] artery [place] vs. transplanted heart: [place] heart Vitamin D deficiency E55.9 Dyslipidemia E78.5 Chronic pain syndrome G89.4 Fall W19.XXXA Elevated troponin R77.8 Ankle pain, left M25.572 Abrasion T14.8XXA Back pain M54.9 (1) CAD (coronary artery disease) Associated angina: angina presence unspecified Coronary Disease-Associated Artery/Lesion type: [place] artery [place] vs. transplanted heart: [place] heart Qualified Code(s): I25.10 - Atherosclerotic heart disease of [place] coronary artery without angina pectoris (2) DM w/o complication type II, uncontrolled Glycemic state: with hyperglycemia Qualified Code(s): E11.65 - Type 2 diabetes mellitus with hyperglycemia (3) GERD (gastroesophageal reflux disease) Esophagitis presence: without esophagitis Qualified Code(s): K21.9 - Gastro- esophageal reflux disease without esophagitis
--- NOTE | 2021-10-24 15:20 | XRay Report ---
XR foot LT min 3V routine CLINICAL HISTORY: fall,foot pain TECHNIQUE: 3 views of the left foot were obtained. Comparison: None available at the time of this dictation. FINDINGS: No fractures are present. The alignment is anatomic. The joint spaces are well preserved. No soft tis [place] abnormality is seen. IMPRESSION: No evidence of acute bony injury. ACT 112: Negative or not required by law. Electronically signed by: Josh Lange M.D. 10/24/2021 3:18 PM
--- NOTE | 2021-10-24 16:32 | Electrocardiogram Report ---
Test Reason : Blood Pressure : / mmHG Vent. Rate : 098 BPM Atrial Rate : 098 BPM P-R Int : 150 ms QRS Dur : 068 ms QT Int : 348 ms P-R-T Axes : 052 020 066 degrees QTc Int : 444 ms Poor data quality, interpretation may be adversely affected Normal sinus rhythm Diffuse Minor Nonspecific ST and T wave abnormality Abnormal ECG When compared with ECG of 23-MAR-2021 06:38, Vent. rate has increased BY [address] now depressed in Anterolateral leads Diffuse Nonspecific T wave abnormality now present Confirmed by Bear Ruiz ([id number]) on 10/24/2021 4:32:11 PM Referred By: REFERRED SELF Confirmed By:Bear Ruiz
[2021-10-24] MEDS ORDERED: DEXTROSE 50% 50 ML SYRINGE IV PRN (17:51)
[2021-10-24] MEDS ORDERED: GLUCOSE 10 TABS/TUBE PO PRN (17:51)
[2021-10-24] MEDS ORDERED: GLUCAGON FOR INJ 1 MG VIAL SQ PRN (17:51)
[2021-10-24] MEDS ORDERED: NITROGLYCERIN SL 0.4 MG/TAB TAB SL PRN (17:51)
[2021-10-24] MEDS ORDERED: CARBOHYDRATES FOR HYPOGLYCEMIA PO PRN (17:51)
[2021-10-24] MEDS ORDERED: ONDANSETRON INJ 2 MG/ML 2 ML VIAL IV PRN (17:51)
[2021-10-24] MEDS ORDERED: ALUMINUM/MAGNESIUM SUSP 30 ML UDC PO PRN (17:51)
[2021-10-24] MEDS ORDERED: POLYETHYLENE (MIRALAX) 17 GM PACK PO PRN (17:51)
[2021-10-24] MEDS ORDERED: GLUCOSE 40% GEL 15 GM TUBE PO PRN (17:51)
[2021-10-24] MEDS ORDERED: LINACLOTIDE 145 MCG CAPSULE PO PRN (17:58)
[2021-10-24] MEDS: oxyCODONE HCL IR 5 MG TAB (IMMEDIATE RELEASE) PO PRN ×2 (18:06→23:48)
[2021-10-24] MEDS: INSULIN ASPART PER UNIT SC SCH ×2 (18:07→20:37)
[2021-10-24] MEDS: ACETAMINOPHEN 500 MG TAB PO SCH (18:47)
[2021-10-24] MEDS: ASPIRIN 81 MG ECTAB PO SCH (18:47)
[2021-10-24] MEDS: carvediloL 6.25 MG TAB PO SCH ×2 (18:48→22:19)
[2021-10-24] MEDS: EZETIMIBE 10 MG TABLET PO SCH (18:48)
[2021-10-24] MEDS: ROSUVASTATIN CALCIUM 20 MG TAB PO SCH (18:48)
[2021-10-24] MEDS: DULoxetine HCL 30 MG CAP PO SCH (18:48)
[2021-10-24] MEDS: ISOSORBIDE MONO EXTENDED REL 60 MG TABCR PO SCH (18:48)
[2021-10-24] MEDS: lisinopril 10 MG TAB PO SCH (18:48)
[2021-10-24] MEDS: PANTOprazole 40 MG TAB PO SCH ×2 (18:49→20:37)
[2021-10-24] MEDS: CHOLECALCIFEROL 1,000 UNITS 25 MCG TAB PO SCH (18:49)
[2021-10-24] MEDS: LIDOCAINE 5% 1 PATCH TD SCH (18:49)
[2021-10-24] MEDS: CHLORTHALIDONE 25 MG TAB PO SCH (18:49)
[2021-10-24] MEDS: busPIRone 5 MG TAB PO SCH (20:34)
[2021-10-24] MEDS: ENOXAPARIN INJ 40 MG/0.4 ML SYR SQ SCH (20:34)
[2021-10-24] MEDS: INSULIN GLARGINE SOLOSTAR 100 UNITS/ML 3 ML PEN SC SCH (20:35)
[2021-10-24] MEDS: FAMOTIDINE 20 MG TAB PO SCH (20:35)
[2021-10-25] MEDS: ACETAMINOPHEN 500 MG TAB PO SCH ×3 (05:50→20:55)
[2021-10-25 06:48] LABS: BUN Creatinine Ratio 14.4 (10-20); Creatinine Clr Calc Pharmacy 46.9 ml/min; Est GFR (African American) 56.7 ml/min; Est GFR (Non-African American) 48.9 ml/min; Magnesium 2.2 mg/dl (1.7-2.4); Potassium 4.1 mmol/L (3.5-5.1)
[2021-10-25 06:55] LABS: Estimated Average Glucose 309 mg/dl; Hemoglobin A1C 12.4 % (4.5-5.6)
[2021-10-25] MEDS: INSULIN ASPART PER UNIT SC SCH ×5 (07:01→21:00)
[2021-10-25] MEDS ORDERED: PHARMACY GLYCEMIC MGMT CONSULT PRN (08:03)
[2021-10-25] MEDS: EZETIMIBE 10 MG TABLET PO SCH (08:09)
[2021-10-25] MEDS: ISOSORBIDE MONO EXTENDED REL 60 MG TABCR PO SCH (08:09)
[2021-10-25] MEDS: CHOLECALCIFEROL 1,000 UNITS 25 MCG TAB PO SCH (08:10)
[2021-10-25] MEDS: lisinopril 10 MG TAB PO SCH (08:10)
[2021-10-25] MEDS: DULoxetine HCL 30 MG CAP PO SCH (08:10)
[2021-10-25] MEDS: CHLORTHALIDONE 25 MG TAB PO SCH (08:10)
[2021-10-25] MEDS: ROSUVASTATIN CALCIUM 20 MG TAB PO SCH (08:10)
[2021-10-25] MEDS: ASPIRIN 81 MG ECTAB PO SCH (08:11)
[2021-10-25] MEDS: FAMOTIDINE 20 MG TAB PO SCH ×2 (08:11→20:53)
[2021-10-25] MEDS: PANTOprazole 40 MG TAB PO SCH ×2 (08:11→20:55)
[2021-10-25] MEDS: busPIRone 5 MG TAB PO SCH ×3 (08:11→20:53)
[2021-10-25] MEDS: carvediloL 6.25 MG TAB PO SCH (08:11)
[2021-10-25] MEDS: LIDOCAINE 5% 1 PATCH TD SCH (08:12)
--- NOTE | 2021-10-25 08:13 | Hospitalist Progress Note ---
Date of Service October 25, 2021 Assessment & Plan (1) Fall: Plan: Mechanical fall due to give way of the knee, neither syncope nor arrhythmia suspected. Did hit her head but no LOC reported. Hx DM, A1c 12.6 -- reports BSGs at home can be 2-300s with symptoms higher of weakness/dizzines/fatigue and in 300s on admission. Per PCP note Jun 2021, patient had been going low in late afternoon/prior to dinner. ?if similar incident --Reported pain to L ankle, severe back pain, headache CK wnl CT Head negative CXR negative X ray R foot -- no evidence for acute isrrael injury X ray R forearm -- no acute bony injury CT Pelvis without acute fx CT Lumbar Spine 1. Osteopenia with no acute abnormality. 2. 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 Xray R ankle -- soft tissue swelling within the left ankle, no fractures * Ortho consulted, L ankle sprain. Anthony stockings/tubgrip rec'd to control swelling and low-tide walking boot for WB activities for next month. No need to wear in bed, f/u ortho 4 weeks Checking UA given back pain/weakness, fatigue Pharmacy on consult for glycemic management as BSGs in 300s today --> Improved this afternoon ECHO obtained given + troponin, no change from prior --> no cp/sob reported but will trend CT A/P obtained given fall and drop in hgb from normal to 10.5 this morning (and will repeat this afternoon) * Reported hx gastroparesis, last BM last Wednesday which is not unusual for her. * She noted black/tarry stools * GI consulted given prior hx Barretts/pain with swallowing at times, and prior angela on prior EGD with Dr Forrest (completed Diflucan x 10days per report however patient doesn't think she may have been given this in the past) * --> Recent EGD after last admission with Nix's, multiple fragments of benign mildly inflamed gastric mucosa with focal intestinal metaplasia seen. Severe grade D esophagitis reportedly resolved with use of high dose PPI BID and famotidine (patient reports she has been taking these regularly) * CT report: 1. Mild circumferential thickening of the distal esophagus, unchanged. This favors a chronic esophagitis. Follow-up nonemergent endoscopy can be performed for further evaluation. 2. No evidence for bowel obstruction. 3. Postoperative changes as described above. CRP/ESR elevated -- ?2nd to uncontrolled diabetes, but also checked iron panel --> Iron deficiency anemia with iron 23, trans% sat 10 --> Venofer 300mg x 1 today, repeat tomorrow Hypotensive this afternoon to systolic 70s. Holding further chlorthalidone for now/diuretics. 500cc NSS bolus given, orthostatics without significant drop in BP/elevation in HR. --> Continue NS+20K @ 80cc/hr for now UA pending to r/o UTI given back/weakness for completeness PT/OT consulted -- suspect will need some rehab. Patient agreeable. CM to follow Repeating labs this afternoon as well (2) Back pain: Plan: With severe lower back pain right greater than left without radiculopathy CT lumbar spine negative, nonfocal neuro exam Continue lidocaine patch, tylenol TID, oxycodone available prn Check UA for completeness, although no CVA tenderness on examination PT/OT as above (3) Elevated troponin: Plan: Mildly elevated troponin at 0.16, trending up on repeat. ?demand Does have hx stents to RCA/LAD but trend trop/EKGs daily Iron panel checked, low -- replacement ordered and trend trop. Check B12/folate given normocytic MCV Consider cards consult if needed/worsening CP although no wma on ECHO Trend trop/EKGs daily (4) CAD (coronary artery disease): Plan: With history of stents RCA and LAD in 2005 2006 * [place] [facility] [place]STEMI 11/2005 --> At that time underwent sequential RCA stents. Later due to unstable angina underwent LAD and left circumflex stents in 2005. Continue home rosuvastatin, carvedilol, aspirin, lisinopril, isosorbide No CP reported (as prior to previous MIs), troponin trending as above, replacement of iron monitor on telemetry -- ?stress test outpt (5) DM w/o complication type II, uncontrolled: Plan: Continue basal bolus insulin, hold home metformin BSGs remained elevated, consulted pharmacy as BSgs still in 300s today, improved this afternoon Rec'd f//u with endocrine at discharge given uncontrolled (had been in 8-9s last year, elevated further currently) --Lipase wnl, pancreas normal on imaging (6) Ankle pain, left: Plan: Suspect left ankle sprain X-rays of the ankle and foot negative for fracture, notes soft tissue swelling Continue ice, pain control as above Ortho consulted as above, f/u in 4 wks after discharge (7) Hypomagnesemia: Plan: Likely due to poor p.o. intake recently, PPI use. Reported cramping in legs/hands recently -- will also check B12 Replacement ordered, normal on repeat Monitor in AM given PPI use, consider daily supplementation given chronic PPI BID for barretts (8) Abrasion: Plan: Left forearm Wound care (9) Anxiety: Plan: Continue duloxetine, BuSpar (10) GERD (gastroesophageal reflux disease): Plan: Hx nix's esophagus Continue Pepcid and Protonix Having worsening heartburn symptoms last few weeks Maalox as needed May need to return to GI for EGD as an outpatient, consulted while inpatient given above/esophageal thickening/hx angela on prior EGD (11) Diabetic neuropathy: Plan: Continue duloxetine Checking B12 level with Am labs as well (12) Depression: Plan: Continue duloxetine (13) Diabetic gastroparesis: Plan: Noted (14) HTN (hypertension): Plan: Blood pressures mildly elevated on admission but HYPOTENSIVE today 500cc NSS bolus x 1, orthostatics obtained --> lying 82/42, sitting 96/58, standing 94/59 and reported some dizziness with standing Venofer as above Maintenance fluids ordered as hadn't been taking much PO [employer] Continue home carvedilol, isosorbide but placed chlorthalidone/lisinopril on hold to prevent worsening hypotension/dehydration Monitor (15) Obesity (BMI 30.0-34.9): Plan: BMI 30.3 Needs weight loss (16) Vitamin D deficiency: Plan: Vit 28.2 Apr 2019, continued on vitamin D supplementation (17) Dyslipidemia: Plan: Continue rosuvastatin, Zetia Hold home omega-3 (18) Chronic pain syndrome: Plan: Continue duloxetine (19) Sprain of left foot: Plan: as above, outpt f/u (20) Hypotension: Plan: improving with above but still borderline. diuretics placed on hold as above and continue IVF @ 80cc/hr Plan: DVT prophylaxis Lovenox, SCDs while inpatient DNR/DNI as per discussion with patient. Her friend, Franck Ortega, is her main point of contact although he does not have a legal power of mergers and acquisitions attorney. She does have a sister and a daughter who could also be involved in her care but she wishes for Franck to be her main decision maker in the event she is not able to make decisions. Dipso: PT/OT consulted, pending Suspect will need rehab at d/c. CM to follow Admission and Anticipated Discharge Date Admission Date: October 24, 2021 Supervising Physician Co-Signing Physician Notes Attending Attestation - Chart reviewed in detail, care plan d/w JAVI Beckwith. I agree w/ the hathaway components of her documentation. Etiology of elevated ESR/CRP (particularly the CRP)? Fall was apparently due to left knee buckling/giving way. Would recommend plain-films of left knee to r/o pathology that could have contributed to her presentation. Roger Vazquez MD Subjective Eval around noon. Doing alright. Discussed orthopedic recommendations and will continue to work with PT/OT and plan rehab at discharge. She has never been to rehab in the past. Discussed elevated blood sugars. She said she checks them at home and regularly takes her insulin as instructed but has had sugars in the 3-400s. She notes one time to ER with very elevated and symptoms when elevated for her are extreme dizziness/lightheadedness and weakness. She denies having these symptoms prior to her fall [employer]. Discussed anemia -- she has history of Barrettadrianne, EGD last year. Prior throat cx with candidia and she doesn't think she was ever on any antifungals. She notes she does have intermittent issues with swallowing and pain with swallowing. Also with known history of gastroparesis. Last BM last Wednesday she believes and notes sometimes it can be up to a week. Discussed any bleeding in stool -- she endorses occasional blood but thinks from not moving bowels in several days. Discussed characteristics and she notes this stool is usually darker/black blood. Discussed that sounds more like upper GI source and confirmed she takes protonix and pepcid twice daily. Also checked iron stores which were low and replacement has been ordered. Discussed will consult GI for any recs but they may want to scope as outpatient if symptoms controlled/no abdominal pain (although some epigastric pain and pain from constipation reported). Denies ever taking anything like reglan to help get bowels moving. Prior hx CAD, reports 3MIs in 8 month span, symptoms were chest pain, which she currently denies along with shortness of breath. Review of Systems Review of Systems: All systems reviewed & are unremarkable except as noted in HPI & below Physical Exam Constitutional: WD/WN, vitals as above (fatigued appearing, +general pallor) Eyes: pupils equal, reactive to light, anicteric ENMT: slightly dry mm Neck: trachea midline, no thyromegaly Respiratory: normal respiratory effort, lungs clear to auscultation (no w/c/r, on room air) Cardiovascular: Rate/Rhythm: regular rate and regular rhythm Heart Sounds: no murmur Extremities: + edema (Ankle edema 1+ pitting left greater than right) Chest (Breasts): Chest: normal inspection of chest Gastrointestinal (Abdomen): hypoactive BS, +distended, epigastric tenderness to palpation, palpable stool RLQ Musculoskeletal: Extremities: + extremities abnormal to inspection (Swelling left ankle, no erythema), no cyanosis and no clubbing Skin: no rashes, warm and dry Neurologic: moves all extremities and awake; no focal motor deficits and not confused Motor/Sensory: no tremor and no sensory deficit Psychiatric: A+Ox3, euthymic affect Genitourinary: no ramirez Lymphatic: no lymphedema Results & Data Results & Data ([facility]) Vital Signs (Past 12 Hours) Vital Signs Temp Pulse Pulse Resp BP Pulse Ox 10/25/21 06:42 36.8 C 63 20 105/65 92 10/25/21 03:15 36.8 C 69 18 115/68 92 10/24/21 23:28 37.0 C 93 H 20 137/83 93 10/24/21 22:18 91 H Laboratory Results 10/25/21 10/25/21 10/25/21 Range/Units 11:54 11:45 08:41 WBC (4.8-10.8) K/uL RBC (4.2-5.4) M/uL Hgb (12.0-16.0) g/dL Hct (37-47) % MCV (80-100) fL MCH (25-34) pg MCHC (32-36) g/dL RDW Std Deviation (36.4-46.3) fL RDW Coeff of Tino (11.5-14.5) % Plt Count (130-400) K/uL MPV (7.4-10.4) fL Immature Gran % (Auto) % Neut % (Auto) % Lymph % (Auto) % [place] % (Auto) % Eos % (Auto) % Baso % (Auto) % Neut # (Auto) (1.4-6.5) K/uL Lymph # (Auto) (1.2-3.4) K/uL [place] # (Auto) (0.11-0.59) K/uL Eos # (Auto) (0-0.5) K/uL Baso # (Auto) (0-0.2) K/uL Immature Gran # (Auto) (0.00-0.02) K/uL ESR (0-30) mm/hr Sodium (136-145) mmol/L Potassium (3.5-5.1) mmol/L Chloride (98-107) mmol/L Carbon Dioxide (21-32) mmol/L Anion Gap (3-11) BUN (6-23) mg/dl Creatinine (0.6-1.2) mg/dl Est Cr Clr Drug Dosing ml/min Est GFR ( Amer) ml/min Est GFR (Non-Af Amer) ml/min BUN/Creatinine Ratio (10-20) Glucose (70-99(Fasting)) mg/dl POC Glucose 110 H (70-99) mg/dl Estimat Average Glucose mg/dl Hemoglobin A1c (4.5-5.6) % Calcium (8.5-10.1) mg/dl Magnesium (1.7-2.4) mg/dl Iron (35-150) mcg/dl TIBC (250-450) mcg/dl Unsaturated IBC (155-355) mcg/dl Transferrin % Sat (15-50) % Ferritin (8-388) ng/ml Troponin I 0.24 H* (0-0.04) ng/ml C-Reactive Protein (0-0.5) mg/dl Lipase (11-82) U/L Lyme Disease IgG Ab Negative (Negative) Lyme Disease IgM Ab Negative (Negative) 10/25/21 10/25/21 10/25/21 Range/Units 08:41 07:58 07:58 WBC (4.8-10.8) K/uL RBC (4.2-5.4) M/uL Hgb (12.0-16.0) g/dL Hct (37-47) % MCV (80-100) fL MCH (25-34) pg MCHC (32-36) g/dL RDW Std Deviation (36.4-46.3) fL RDW Coeff of Tino (11.5-14.5) % Plt Count (130-400) K/uL MPV (7.4-10.4) fL Immature Gran % (Auto) % Neut % (Auto) % Lymph % (Auto) % [place] % (Auto) % Eos % (Auto) % Baso % (Auto) % Neut # (Auto) (1.4-6.5) K/uL Lymph # (Auto) (1.2-3.4) K/uL [place] # (Auto) (0.11-0.59) K/uL Eos # (Auto) (0-0.5) K/uL Baso # (Auto) (0-0.2) K/uL Immature Gran # (Auto) (0.00-0.02) K/uL ESR 38 H (0-30) mm/hr Sodium (136-145) mmol/L Potassium (3.5-5.1) mmol/L Chloride (98-107) mmol/L Carbon Dioxide (21-32) mmol/L Anion Gap (3-11) BUN (6-23) mg/dl Creatinine (0.6-1.2) mg/dl Est Cr Clr Drug Dosing ml/min Est GFR ( Amer) ml/min Est GFR (Non-Af Amer) ml/min BUN/Creatinine Ratio (10-20) Glucose (70-99(Fasting)) mg/dl POC Glucose 327 H* 347 H* (70-99) mg/dl Estimat Average Glucose mg/dl Hemoglobin A1c (4.5-5.6) % Calcium (8.5-10.1) mg/dl Magnesium (1.7-2.4) mg/dl Iron (35-150) mcg/dl TIBC (250-450) mcg/dl Unsaturated IBC (155-355) mcg/dl Transferrin % Sat (15-50) % Ferritin (8-388) ng/ml Troponin I (0-0.04) ng/ml C-Reactive Protein (0-0.5) mg/dl Lipase (11-82) U/L Lyme Disease IgG Ab (Negative) Lyme Disease IgM Ab (Negative) 10/25/21 10/25/21 10/25/21 Range/Units 05:58 05:58 05:58 WBC 7.07 (4.8-10.8) K/uL RBC 3.93 L (4.2-5.4) M/uL Hgb 10.9 L (12.0-16.0) g/dL Hct 33.3 L (37-47) % MCV 84.7 (80-100) fL MCH 27.7 (25-34) pg MCHC 32.7 (32-36) g/dL RDW Std Deviation 43.7 (36.4-46.3) fL RDW Coeff of Tino 14.1 (11.5-14.5) % Plt Count 233 (130-400) K/uL MPV 10.2 (7.4-10.4) fL Immature Gran % (Auto) 0.6 % Neut % (Auto) 69.6 % Lymph % (Auto) 21.4 % [place] % (Auto) 7.8 % Eos % (Auto) 0.3 % Baso % (Auto) 0.3 % Neut # (Auto) 4.93 (1.4-6.5) K/uL Lymph # (Auto) 1.51 (1.2-3.4) K/uL [place] # (Auto) 0.55 (0.11-0.59) K/uL Eos # (Auto) 0.02 (0-0.5) K/uL Baso # (Auto) 0.02 (0-0.2) K/uL Immature Gran # (Auto) 0.04 H (0.00-0.02) K/uL ESR (0-30) mm/hr Sodium (136-145) mmol/L Potassium (3.5-5.1) mmol/L Chloride (98-107) mmol/L Carbon Dioxide (21-32) mmol/L Anion Gap (3-11) BUN (6-23) mg/dl Creatinine (0.6-1.2) mg/dl Est Cr Clr Drug Dosing ml/min Est GFR ( Amer) ml/min Est GFR (Non-Af Amer) ml/min BUN/Creatinine Ratio (10-20) Glucose (70-99(Fasting)) mg/dl POC Glucose (70-99) mg/dl Estimat Average Glucose mg/dl Hemoglobin A1c (4.5-5.6) % Calcium (8.5-10.1) mg/dl Magnesium (1.7-2.4) mg/dl Iron 23 L (35-150) mcg/dl TIBC 242 L (250-450) mcg/dl Unsaturated IBC 219 (155-355) mcg/dl Transferrin % Sat 10 L (15-50) % Ferritin 78.5 (8-388) ng/ml Troponin I 0.24 H* (0-0.04) ng/ml C-Reactive Protein 11.43 H (0-0.5) mg/dl Lipase 13 (11-82) U/L Lyme Disease IgG Ab (Negative) Lyme Disease IgM Ab (Negative) 10/25/21 10/25/21 10/24/21 Range/Units 05:58 05:58 23:28 WBC (4.8-10.8) K/uL RBC (4.2-5.4) M/uL Hgb (12.0-16.0) g/dL Hct (37-47) % MCV (80-100) fL MCH (25-34) pg MCHC (32-36) g/dL RDW Std Deviation (36.4-46.3) fL RDW Coeff of Tino (11.5-14.5) % Plt Count (130-400) K/uL MPV (7.4-10.4) fL Immature Gran % (Auto) % Neut % (Auto) % Lymph % (Auto) % [place] % (Auto) % Eos % (Auto) % Baso % (Auto) % Neut # (Auto) (1.4-6.5) K/uL Lymph # (Auto) (1.2-3.4) K/uL [place] # (Auto) (0.11-0.59) K/uL Eos # (Auto) (0-0.5) K/uL Baso # (Auto) (0-0.2) K/uL Immature Gran # (Auto) (0.00-0.02) K/uL ESR (0-30) mm/hr Sodium 131 L (136-145) mmol/L Potassium 4.1 (3.5-5.1) mmol/L Chloride 101 (98-107) mmol/L Carbon Dioxide 27 (21-32) mmol/L Anion Gap 3 (3-11) BUN 16 (6-23) mg/dl Creatinine 1.11 (0.6-1.2) mg/dl Est Cr Clr Drug Dosing 46.9 ml/min Est GFR ( Amer) 56.7 ml/min Est GFR (Non-Af Amer) 48.9 ml/min BUN/Creatinine Ratio 14.4 (10-20) Glucose 348 H* (70-99(Fasting)) mg/dl POC Glucose (70-99) mg/dl Estimat Average Glucose 309 mg/dl Hemoglobin A1c 12.4 H (4.5-5.6) % Calcium 9.0 (8.5-10.1) mg/dl Magnesium 2.2 (1.7-2.4) mg/dl Iron (35-150) mcg/dl TIBC (250-450) mcg/dl Unsaturated IBC (155-355) mcg/dl Transferrin % Sat (15-50) % Ferritin (8-388) ng/ml Troponin I 0.16 H* (0-0.04) ng/ml C-Reactive Protein (0-0.5) mg/dl Lipase (11-82) U/L Lyme Disease IgG Ab (Negative) Lyme Disease IgM Ab (Negative) 10/24/21 10/24/21 10/24/21 Range/Units 19:53 19:51 17:49 WBC (4.8-10.8) K/uL RBC (4.2-5.4) M/uL Hgb (12.0-16.0) g/dL Hct (37-47) % MCV (80-100) fL MCH (25-34) pg MCHC (32-36) g/dL RDW Std Deviation (36.4-46.3) fL RDW Coeff of Tino (11.5-14.5) % Plt Count (130-400) K/uL MPV (7.4-10.4) fL Immature Gran % (Auto) % Neut % (Auto) % Lymph % (Auto) % [place] % (Auto) % Eos % (Auto) % Baso % (Auto) % Neut # (Auto) (1.4-6.5) K/uL Lymph # (Auto) (1.2-3.4) K/uL [place] # (Auto) (0.11-0.59) K/uL Eos # (Auto) (0-0.5) K/uL Baso # (Auto) (0-0.2) K/uL Immature Gran # (Auto) (0.00-0.02) K/uL ESR (0-30) mm/hr Sodium (136-145) mmol/L Potassium (3.5-5.1) mmol/L Chloride (98-107) mmol/L Carbon Dioxide (21-32) mmol/L Anion Gap (3-11) BUN (6-23) mg/dl Creatinine (0.6-1.2) mg/dl Est Cr Clr Drug Dosing ml/min Est GFR ( Amer) ml/min Est GFR (Non-Af Amer) ml/min BUN/Creatinine Ratio (10-20) Glucose (70-99(Fasting)) mg/dl POC Glucose 340 H* 354 H* (70-99) mg/dl Estimat Average Glucose mg/dl Hemoglobin A1c (4.5-5.6) % Calcium (8.5-10.1) mg/dl Magnesium (1.7-2.4) mg/dl Iron (35-150) mcg/dl TIBC (250-450) mcg/dl Unsaturated IBC (155-355) mcg/dl Transferrin % Sat (15-50) % Ferritin (8-388) ng/ml Troponin I 0.12 H* (0-0.04) ng/ml C-Reactive Protein (0-0.5) mg/dl Lipase (11-82) U/L Lyme Disease IgG Ab (Negative) Lyme Disease IgM Ab (Negative) 10/24/21 10/24/21 Range/Units 17:35 16:22 WBC (4.8-10.8) K/uL RBC (4.2-5.4) M/uL Hgb (12.0-16.0) g/dL Hct (37-47) % MCV (80-100) fL MCH (25-34) pg MCHC (32-36) g/dL RDW Std Deviation (36.4-46.3) fL RDW Coeff of Tino (11.5-14.5) % Plt Count (130-400) K/uL MPV (7.4-10.4) fL Immature Gran % (Auto) % Neut % (Auto) % Lymph % (Auto) % [place] % (Auto) % Eos % (Auto) % Baso % (Auto) % Neut # (Auto) (1.4-6.5) K/uL Lymph # (Auto) (1.2-3.4) K/uL [place] # (Auto) (0.11-0.59) K/uL Eos # (Auto) (0-0.5) K/uL Baso # (Auto) (0-0.2) K/uL Immature Gran # (Auto) (0.00-0.02) K/uL ESR (0-30) mm/hr Sodium (136-145) mmol/L Potassium (3.5-5.1) mmol/L Chloride (98-107) mmol/L Carbon Dioxide (21-32) mmol/L Anion Gap (3-11) BUN (6-23) mg/dl Creatinine (0.6-1.2) mg/dl Est Cr Clr Drug Dosing ml/min Est GFR ( Amer) ml/min Est GFR (Non-Af Amer) ml/min BUN/Creatinine Ratio (10-20) Glucose (70-99(Fasting)) mg/dl POC Glucose 288 H 307 H* (70-99) mg/dl Estimat Average Glucose mg/dl Hemoglobin A1c (4.5-5.6) % Calcium (8.5-10.1) mg/dl Magnesium (1.7-2.4) mg/dl Iron (35-150) mcg/dl TIBC (250-450) mcg/dl Unsaturated IBC (155-355) mcg/dl Transferrin % Sat (15-50) % Ferritin (8-388) ng/ml Troponin I (0-0.04) ng/ml C-Reactive Protein (0-0.5) mg/dl Lipase (11-82) U/L Lyme Disease IgG Ab (Negative) Lyme Disease IgM Ab (Negative) PG Care Time/CCT Total # of Minutes Spent Total Time Spent with Patient: Total time spent is greater than 50% in coordination of care (as documented) at patient's floor/unit and/or counseling patient: Coding Level of Care Code 88038 Subseq Hosp Care Lvl 3 Diagnoses Fall W19.XXXA Back pain M54.9 Ankle pain, left M25.572 Hypomagnesemia E83.42 Elevated troponin R77.8 Abrasion T14.8XXA Anxiety F41.9 DM w/o complication type II, uncontrolled E11.65 Glycemic state: with hyperglycemia GERD (gastroesophageal reflux disease) K21.9 Esophagitis presence: without esophagitis Diabetic neuropathy E11.40 Depression F32.9 Diabetic gastroparesis E11.43; K31.84 HTN (hypertension) I10 Obesity (BMI 30.0-34.9) E66.9 CAD (coronary artery disease) I25.10 Associated angina: angina presence unspecified Coronary Disease-Associated Artery/Lesion type: [place] artery [place] vs. transplanted heart: apache heart Vitamin D deficiency E55.9 Dyslipidemia E78.5 Chronic pain syndrome G89.4 Sprain of left foot S93.602A Hypotension I95.9 (1) CAD (coronary artery disease) Associated angina: angina presence unspecified Coronary Disease-Associated Artery/Lesion type: [place] artery [place] vs. transplanted heart: apache heart Qualified Code(s): I25.10 - Atherosclerotic heart disease of apache coronary artery without angina pectoris (2) DM w/o complication type II, uncontrolled Glycemic state: with hyperglycemia Qualified Code(s): E11.65 - Type 2 diabetes mellitus with hyperglycemia (3) GERD (gastroesophageal reflux disease) Esophagitis presence: without esophagitis Qualified Code(s): K21.9 - Gastro- esophageal reflux disease without esophagitis
[2021-10-25 08:15] LABS: Basophils # (auto) 0.02 K/uL (0-0.2); Basophils % (auto) 0.3 %; Eosinophils # (auto) 0.02 K/uL (0-0.5); Eosinophils % (auto) 0.3 %; Hematocrit (blood only) 33.3 % (37-47); Hemoglobin 10.9 g/dL (12.0-16.0); Immature Granulocytes # (auto) 0.04 K/uL (0.00-0.02); Immature Granulocytes % (auto) 0.6 %; Lymphocytes # (auto) 1.51 K/uL (1.2-3.4); Lymphocytes % (auto) 21.4 %; Mean Corpuscular Hemoglobin 27.7 pg (25-34); Mean Corpuscular Hgb Conc 32.7 g/dL (32-36); Mean Corpuscular Volume 84.7 fL (80-100); Mean Platelet Volume 10.2 fL (7.4-10.4); Monocytes # (auto) 0.55 K/uL (0.11-0.59); Monocytes % (auto) 7.8 %; Neutrophils # (auto) 4.93 K/uL (1.4-6.5); Neutrophils % (auto) 69.6 %; Platelet Count 233 K/uL (130-400); RDW Coefficient of Variation 14.1 % (11.5-14.5); RDW Standard Deviation 43.7 fL (36.4-46.3); Red Blood Count 3.93 M/uL (4.2-5.4); White Blood Count 7.07 K/uL (4.8-10.8)
--- NOTE | 2021-10-25 08:28 | Electrocardiogram Report ---
Test Reason : Blood Pressure : / mmHG Vent. Rate : 070 BPM Atrial Rate : 070 BPM P-R Int : 158 ms QRS Dur : 068 ms QT Int : 418 ms P-R-T Axes : 044 023 081 degrees QTc Int : 451 ms Normal sinus rhythm Nondiagnostic inferior q waves Diffuse Nonspecific T wave abnormality Abnormal ECG When compared with ECG of 24-OCT-2021 11:35, ST no longer depressed in Anterolateral leads Confirmed by Bear Ruiz ([id number]) on 10/25/2021 8:28:22 AM Referred By: REFERRED SELF Confirmed By:Bear Ruiz
[2021-10-25] MEDS ORDERED: INSULIN GLARGINE SOLOSTAR 100 UNITS/ML 3 ML PEN SC SCH (09:00)
[2021-10-25 09:05] LABS: C Reactive Protein 11.43 mg/dl (0-0.5)
--- NOTE | 2021-10-25 09:08 | Orthopedic Consultation ---
Date of Service October 25, 2021 Assessment & Plan (1) Sprain of left foot: Stable injury. Suggest GHISLAINE stocking or Tubgrip to control swelling and Low-tide walking boot for WB activities for next month. Does not need to wear boot in bed. Orthopedic follow-up in 4 weeks. History of Present Illness Reason for Consultation: . Left foot pain after recent fall Requesting Physician: . Attending Physician: Roger Vazquez . 76 year old female with multiple medical co-morbidities fell several days ago when her left knee gave out. Dedveloped significant back and left foot/ankle pain after the fall. Allergies Allergy/AdvReac Type Severity Reaction Status Date / Time cephalexin Allergy Intermediate Rash and Verified 10/24/21 14:03 itchiness Cephalosporins Allergy Intermediate Rash and Verified 10/24/21 14:03 itchiness Sulfa (Sulfonamide Allergy Intermediate Hives Verified 10/24/21 14:03 Antibiotics) Home Medications Medication Instructions Recorded Confirmed Type nitroglycerin 0.4 mg sublingual 0.4 mg SUBLINGUAL UD PRN #0 btl 07/27/17 10/24/21 History tablet (Nitrostat) omega 0-hlj-tam-fish oil 1,000 mg 1,000 mg PO QAM #0 cap 07/27/17 10/24/21 History (120 mg-180 mg) capsule (Fish Oil) cholecalciferol (vitamin D3) 25 1,000 units PO QAM #0 tab 04/05/19 10/24/21 History mcg (1,000 unit) capsule (Vitamin D3) linaclotide 145 mcg capsule 145 mcg PO QAM PRN cap 04/05/19 10/24/21 History (Linzess) rosuvastatin 40 mg tablet 40 mg PO QAM #90 tab 07/18/20 10/24/21 Rx pen needle, diabetic 32 gauge x ea 11/18/20 10/24/21 History 5/32" (BD Ultra-Fine [place] Pen Needle) ezetimibe 10 mg tablet (Zetia) 10 mg PO QAM 12/03/20 10/24/21 History insulin aspart U-100 100 unit/mL 20 unit SUBCUT DAILY #2 box 01/21/21 10/24/21 Rx (3 mL) subcutaneous pen (Novolog Flexpen U-100 Insulin aspart) insulin degludec 100 unit/mL (3 33 unit SQ QPM 08/11/21 03/11/22 History mL) subcutaneous pen (Tresiba FlexTouch U-100 insulin) buspirone 10 mg tablet 10 mg PO TID #270 tab 05/07/21 10/24/21 Rx famotidine 20 mg tablet 20 mg PO BID #180 tab 05/07/21 10/24/21 Rx lisinopril 10 mg tablet 10 mg PO QAM #90 tab 05/07/21 10/24/21 Rx metformin 500 mg tablet 1,000 mg PO BID #120 tab 05/07/21 10/24/21 Rx pantoprazole 40 mg tablet,delayed 40 mg PO BID #60 tab 05/07/21 10/24/21 Rx release ondansetron HCl 4 mg tablet 4 mg PO Q8H PRN #30 tab 06/24/21 10/24/21 Rx flash glucose scanning reader 06/26/21 10/24/21 History (FreeStyle Renan 2 Mckenna) flash glucose sensor (FreeStyle 06/26/21 10/24/21 History Renan 2 Sensor) Gvoke HypoPen 2-Pack 1 mg/0.2 mL 1 mg SUBCUT .COMPLEX #0.4 ml NS 06/27/21 10/24/21 Rx subcutaneous auto-injector (glucagon) blood sugar diagnostic (OneTouch #200 ea 08/14/21 10/24/21 Rx Verio test strips) carvedilol 6.25 mg tablet 6.25 mg PO BID #180 tab 08/19/21 10/24/21 Rx duloxetine 30 mg capsule,delayed 30 mg PO QAM #90 cap 08/19/21 10/24/21 Rx release isosorbide mononitrate 30 mg 60 mg PO QAM #180 tab 08/19/21 10/24/21 Rx tablet,extended release 24 hr chlorthalidone 25 mg tablet 25 mg PO DAILY #30 tab 08/26/21 10/24/21 Rx aspirin 81 mg tablet,delayed 81 mg PO QAM 10/24/21 10/24/21 History release Past Med/Surg History Medical History (Updated 10/25/21 @ 09:06 by Moe Sanders MD) Mckeon esophagus CAD (coronary artery disease) s/p stents to RCA November 2005; s/p stents to LAD, LCx in January 2006; s/p stents to RCA in 08/2006 Cervical pain (neck) Chest pain Chronic pain syndrome Depression Diabetes mellitus, type 2 IDDM Diabetic gastroparesis Diabetic peripheral neuropathy Dyslipidemia GERD without esophagitis HTN (hypertension) IBS (irritable bowel syndrome) Lumbar spondylosis Migraine headache Myocardial Infarction ME- November 2005, January 2006, Aug 2006 3 total within an 8 month span--HX OF CATH 2012 [facility] [place], FOLLOWS WITH DR. JULES Non-ST elevation (NSTEMI) myocardial infarction Obesity Sprain of left foot Vitamin D deficiency Surgical History History of cardiac cath last 2012 @ [facility] [place], no stents--s/p stents to RCA November 2005; s/p stents to LAD, LCx in January 2006; s/p stents to RCA in 08/2006 History of cataract surgery BL History of cholecystectomy History of colonoscopy with polypectomy History of esophageal dilatation History of esophagogastroduodenoscopy (EGD) History of lumbar spinal fusion History of tooth extraction all teeth History of total hysterectomy with bilateral salpingo-oophorectomy (BSO) History of total right knee replacement (TKR) S/P coronary artery stent placement s/p stents to RCA November 2005; s/p stents to LAD, LCx in January 2006; s/p stents to RCA in 08/2006 Status post trigger finger release right thumb Family History Brother Myocardial infarction Anxiety Heart disease Hypertension Cancer Sister Family history of reaction to anesthesia difficulty waking Hypertension Heart disease Myocardial infarction Anxiety Cancer Diabetes Father Anxiety Heart disease Hypertension Mother Anxiety Hypertension Heart disease Unknown Cancer skin, GI Denies family history of Ovarian cancer Prostate cancer Breast cancer Colorectal cancer Stroke Social History Smoking Status: Former smoker Tobacco Type: Cigarettes Age Started Using Tobacco: 18; Age Quit Using Tobacco: 22; Cigarettes Per Day: 3 cigarettes a week; Smoking End Date: ; Second Hand Exposure: No; Do You Dip or Chew Tobacco: No; Tobacco Cessation Education Requested by Patient: No Hx Alcohol Use: No Hx Substance Use: No Preferred Language: Tamazight Communication Ability: Effective Visual Impairment: Limited Hearing Ability: Normal Flatwork Assembler Required: No Beliefs That Will Affect Care: None marital status: / Current Living Situation: Alone current occupational status: retired and disabled How many Children do You have: 3 Other Information That Helps Us Care for You: No Feels Safe at Home: Yes Safety Concerns: Feels Safe At This Time Childhood Exposure to Second-Hand Smoke: No caffeine: Yes (drinks coffee, diet pepsi occasionally ) Dental Care, Regularly: No Physical Activity Frequency: Does not Exercise Seatbelt Use: always Sunscreen Use: No Assistive Devices: Denture - Upper, Glasses and Walker Review of Systems All systems reviewed & are unremarkable except as noted in HPI & below. Physical Exam . Examination of left foot and ankle reveals moderate diffuse swelling of midfoot and diffuse tenderness. No deformity. SHe can dorsiflex and plantarflex her toes and foot within limits of pain. N/V intact. No compartment issues Results & Data Results & Data Laboratory Results . Diagnostic Findings . X-rays of foot and ankle negative for fracture or subluxation PG Care Time/CCT Total # of Minutes Spent Total Time Spent with Patient: Total time spent is greater than 50% in coordination of care (as documented) at patient's floor/unit and/or counseling patient: Coding Level of Care Code 29883 Inpt Consult Level 3 Diagnoses Sprain of left foot S93.602A
[2021-10-25 09:15] LABS: Troponin I 0.24 ng/ml (0-0.04)
[2021-10-25 09:57] LABS: Lyme Ab IgG w/WB Rflx Negative (Negative); Lyme Ab IgM w/WB Rflx Negative (Negative)
[2021-10-25 10:29] LABS: Ferritin 78.5 ng/ml (8-388)
--- NOTE | 2021-10-25 11:41 | XCELERA ---
[id number]
[2021-10-25] MEDS ORDERED: MAGNESIUM CITRATE 296 ML/BTL PO ONE (11:43)
[2021-10-25] MEDS ORDERED: IRON SUCROSE 300 MG in SODIUM CHLORIDE 0.9% 250 ML IV ONE (12:15)
[2021-10-25] MEDS ORDERED: SODIUM CHLORIDE 0.9% 1000ML 500 ML IV ONE ×2 (12:20→19:12)
--- NOTE | 2021-10-25 13:09 | Pharmacy Report ---
Pharmacy Glycemic Short Note 2 - Date of Service October 25, 2021 - Glycemic Short BSG Results (Last 24 hours): 10/24/21 10/24/21 10/24/21 16:22 17:35 19:51 Glucose POC Glucose 307 H* 288 H 354 H* 10/24/21 10/25/21 10/25/21 19:53 05:58 07:58 Glucose 348 H* POC Glucose 340 H* 347 H* 10/25/21 10/25/21 07:58 11:54 Glucose POC Glucose 327 H* 110 H OUTPATIENT ANTIDIABETIC REGIMEN: * Tresiba 15 units SQ AM, 33 units HS * Novolog 5 units with breakfast and lunch; 10 units with dinner ASSESSMENT: * 76 year old uncontrolled type 2 DM , A1c 12.4% on basal bolus insulin at home, admitted for fall/hurt knee, ortho consult. * Blood sugars in 300s since admission yesterday, d/t insufficient basal and bolus insulin, tighten CF/CR and give supplemental AM basal dose this morning. * Blood sugar now at goal 110mg/dl pre-lunch after extra NovoLog and Lantus this AM. PLAN FOR INPATIENT GLYCEMIC CONTROL: * Basal insulin * Lantus 25 units SQ x1 this AM - re-evaluate dose tomorrow * Lantus 33 units HS * Bolus insulin * NovoLog per scale ACHS or Q6hrs while NPO * Goal Range: Low 110 mg/dL - High 140 mg/dL * Correction Factor: 20 mg/dL/unit * Nutritional / Prandial insulin per carb ratio of 1 unit per 7 grams CHO consumed
[2021-10-25] MEDS ORDERED: OPTIRAY 320 100ml IV ONE (13:35)
--- NOTE | 2021-10-25 13:50 | CT Scan Report ---
ABDOMEN AND PELVIS CT WITH IV CONTRAST CT DOSE: 638.67 mGy.cm HISTORY: epigastric pain/dysphagia, anemia, s/p fall TECHNIQUE: Multiaxial CT images of the abdomen and pelvis were performed following the use of intrave nous contrast. A dose lowering technique was utilized adhering to the principles of ALARA. COMPARISON STUDY: Pelvis CT 10/24/2021. Abdomen and pelvis CT 03/21/2021. FINDINGS: Bibasilar subsegmental atelectasis is noted. Punctate calcified granuloma within the left l ower lobe. No pneumoperitoneum. No pneumatosis. No fractures within the visualized osseous structures . Mild circumferential thickening of the distal esophagus, unchanged. The heart is normal in size. Pr ior cholecystectomy. The main portal vein is patent. Mild calcified plaque within the normal caliber abdominal aorta. The liver, spleen, adrenal glands, and pancreas unremarkable. Bilateral cortical loreta al scarring is again noted. No renal or ureteral stones. No hydronephrosis. The bladder is unremarkab le. The uterus is surgically absent. No pelvic free fluid or pelvic lymphadenopathy. No evidence for bowel obstruction. The appendix is not identified and may also be surgically absent given the hystere ctomy. Submucosal fat deposition within the proximal colon. This is likely chronic. IMPRESSION: 1. Mild circumferential thickening of the distal esophagus, unchanged. This favors a chronic esophagi tis. Follow-up nonemergent endoscopy can be performed for further evaluation. 2. No evidence for bowel obstruction. 3. Postoperative changes as described above. ACT 112: Negative or not required by law. Electronically signed by: Vijay Vega M.D. 10/25/2021 1:49 PM
[2021-10-25] MEDS: NSS + 20MEQ KCL 20 MEQ/1,000 ML BAG IV SCH (15:24)
[2021-10-25] MEDS ORDERED: SODIUM CHLORIDE 0.9% 1000ML 250 ML IV ONE (16:54)
[2021-10-25] MEDS: oxyCODONE HCL IR 5 MG TAB (IMMEDIATE RELEASE) PO PRN (17:11)
[2021-10-25 17:59] LABS: Hemoglobin 10.8 g/dL (12.0-16.0); Mean Corpuscular Hemoglobin 28.6 pg (25-34); Mean Corpuscular Hgb Conc 33.8 g/dL (32-36); Mean Corpuscular Volume 84.7 fL (80-100); Mean Platelet Volume 9.5 fL (7.4-10.4); Platelet Count 238 K/uL (130-400); RDW Coefficient of Variation 14.1 % (11.5-14.5); RDW Standard Deviation 43.3 fL (36.4-46.3); Red Blood Count 3.78 M/uL (4.2-5.4); White Blood Count 9.16 K/uL (4.8-10.8)
[2021-10-25 18:44] LABS: Folate (Folic Acid) 5.87 ng/ml (>5.38)
[2021-10-25 19:40] LABS: Basophils # (auto) 0.02 K/uL (0-0.2); Basophils % (auto) 0.2 %; Eosinophils # (auto) 0.07 K/uL (0-0.5); Eosinophils % (auto) 0.8 %; Hematocrit (blood only) 32.1 % (37-47); Hemoglobin 10.6 g/dL (12.0-16.0); Immature Granulocytes # (auto) 0.04 K/uL (0.00-0.02); Immature Granulocytes % (auto) 0.4 %; Lymphocytes # (auto) 1.74 K/uL (1.2-3.4); Lymphocytes % (auto) 19.3 %; Mean Corpuscular Hemoglobin 27.9 pg (25-34); Mean Corpuscular Volume 84.5 fL (80-100); Mean Platelet Volume 10.1 fL (7.4-10.4); Monocytes # (auto) 0.62 K/uL (0.11-0.59); Monocytes % (auto) 6.9 %; Neutrophils # (auto) 6.52 K/uL (1.4-6.5); Neutrophils % (auto) 72.4 %; Platelet Count 247 K/uL (130-400); RDW Coefficient of Variation 14.1 % (11.5-14.5); White Blood Count 9.01 K/uL (4.8-10.8)
[2021-10-25] MEDS: INSULIN GLARGINE SOLOSTAR 100 UNITS/ML 3 ML PEN SC SCH (20:54)
[2021-10-25] MEDS: ENOXAPARIN INJ 40 MG/0.4 ML SYR SQ SCH (20:54)
[2021-10-26] MEDS: NSS + 20MEQ KCL 20 MEQ/1,000 ML BAG IV SCH (05:38)
[2021-10-26] MEDS: ACETAMINOPHEN 500 MG TAB PO SCH ×3 (05:38→20:55)
[2021-10-26 06:27] LABS: Hematocrit (blood only) 30.8 % (37-47); Hemoglobin 10.3 g/dL (12.0-16.0); Mean Corpuscular Hemoglobin 28.4 pg (25-34); Mean Corpuscular Hgb Conc 33.4 g/dL (32-36); Mean Corpuscular Volume 84.8 fL (80-100); Mean Platelet Volume 9.8 fL (7.4-10.4); Platelet Count 213 K/uL (130-400); RDW Coefficient of Variation 14.1 % (11.5-14.5); RDW Standard Deviation 43.9 fL (36.4-46.3); Red Blood Count 3.63 M/uL (4.2-5.4); White Blood Count 8.88 K/uL (4.8-10.8)
[2021-10-26 06:47] LABS: BUN Creatinine Ratio 16.4 (10-20); Calcium 7.3 mg/dl (8.5-10.1); Creatinine Clr Calc Pharmacy 43.8 ml/min; Est GFR (African American) 50.5 ml/min; Est GFR (Non-African American) 43.6 ml/min; Magnesium 2.3 mg/dl (1.7-2.4); Potassium 3.8 mmol/L (3.5-5.1)
--- NOTE | 2021-10-26 07:44 | Hospitalist Progress Note ---
Date of Service October 26, 2021 Assessment & Plan (1) Fall: Plan: Mechanical fall due to give way of the knee, neither syncope nor arrhythmia suspected. Did hit her head but no LOC reported. Hx DM, A1c 12.6 -- reports BSGs at home can be 2-300s with symptoms higher of weakness/dizzines/fatigue and in 300s on admission. Per PCP note Jun 2021, patient had been going low in late afternoon/prior to dinner. ?if similar incident Reported pain to L ankle, severe back pain, headache CK wnl CT Head negative. CXR negative. X ray L foot -- no evidence for acute isrrael injury. X ray L forearm -- no acute bony injury. CT Pelvis without acute fx CT Lumbar Spine 1. Osteopenia with no acute abnormality. 2. 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 Xray L ankle -> Soft tissue swelling within the left ankle, no fractures Xray L knee -> Moderate medial and patellofemoral compartment osteoarthritis. NO FRACTURE - Discussed with ortho, ice/NSAIDs - Ordered topical voltaren to avoid NSAIDs in patient with hx erosive esophagitis on dual acid therapy Ortho consulted --> L ankle sprain. -Anthony stockings/tubgrip rec'd to control swelling and low-tide walking boot for WB activities for next month. No need to wear in bed, f/u ortho 4 weeks -Orthotics consulted ECHO obtained given + troponin/hypotension --> no change from prior . See below regarding anemia. No CP/SOB reported UA pending to r/o UTI given back/weakness for completeness PT/OT consulted -- suspect will need some rehab. Patient agreeable. CM to follow Hypotension --> IMPROVED/stable, asymptomatic currently with BP 97/61 ? if patient not taking medications at home given hyperglycemia/uncontrolled DM, however review of chart indicates patient got additional doses of her carvedilol/lisinopril on admission due to system issues (meds not given now, given up on floor close to next dosing and then morning doses /) Remains on IVF for now with SHERRIE/elevated Cr 1.22 and holding dose carvedilol/lisinopril/chlorthalidone for now -- ASYMPTOMATIC. Orthostatics negative Monitor labs/BP in AM (2) Anemia: Plan: Normocytic CT A/P obtained given fall and drop in hgb from normal to 10.5 3/12 with hypotension to look for any bleeding -- known hx gastroparesis but reported chronic "blackened stools". --> 1. Mild circumferential thickening of the distal esophagus, unchanged. This favors a chronic esophagitis. Follow-up nonemergent endoscopy can be performed for further evaluation. 2. No evidence for bowel obstruction. 3. Postoperative changes as described above. GI consulted given prior hx Barretts/pain with swallowing at times, and prior angela on prior EGD with Dr Forrest (completed Diflucan x 10days per report however patient doesn't think she may have been given this in the past) * Recent EGD after last admission with Nix's, multiple fragments of benign mildly inflamed gastric mucosa with focal intestinal metaplasia seen. Severe grade D esophagitis reportedly resolved with use of high dose PPI BID and famotidine (patient reports she has been taking these regularly) Fecal occult NEGATIVE Hgb stable on repeat on IVF Iron studies with iron 23, trans % sat 10 --> Venofer 300mg 10/25, 200mg 10/26 due to BP and would repeat further dosing tomorrow based on BP B12 checked (on metformin and reported neuropathy) --> low normal 220 and IM replacement while inpatient Folate low normal 5.87 -- PO replacement while inpatient, consider B complex at d/c CBC in AM (3) Elevated troponin: Plan: Mildly elevated troponin at 0.16 on admission, slight bump on repeat but improving after venofer. No symptoms, ?2nd to demand Does have hx stents to RCA/LAD ?2nd to demand/anemia from iron deficiency/low normal B12. No CP/SOB reported Venofer replacement as above EKGs daily, monitor on tele --> has been SR 60-70s (4) DM w/o complication type II, uncontrolled: Plan: Continue basal bolus insulin, hold home metformin BSGs remained elevated, consulted pharmacy --> BSGs improved. DM educator to see tomorrow -->Rec'd f//u with endocrine at discharge given uncontrolled (had been in 8-9s last year) --Lipase wnl, pancreas normal on imaging (5) Back pain: Plan: With severe lower back pain right greater than left without radiculopathy CT lumbar spine negative, nonfocal neuro exam Continue lidocaine patch, tylenol TID, oxycodone available prn -- states improved Check UA for completeness, although no CVA tenderness on examination -- not collected yet PT/OT as above (6) HTN (hypertension): Plan: Blood pressures mildly elevated on admission but HYPOTENSIVE 10/25 -- got additional BP meds as above Currently, holding carvedilol, lisinopril, chlorthalidone Hold isosorbide for now (got extra doses but will resume this for AM given CAD hx) IVF bolus ordered 10/25, remains on gentle IVF for SHERRIE with Cr bumped to 1.22 -- resume as outlined above Monitor (7) CAD (coronary artery disease): Plan: With history of stents RCA and LAD in 2005 2006 * Follows routinely with [facility] [place]. NSTEMI 11/2005 --> At that time underwent sequential RCA stents. Later due to unstable angina underwent LAD and left circumflex stents in 2005. Continue home rosuvastatin, carvedilol, aspirin, lisinopril, isosorbide No CP reported (as prior to previous MIs), troponin trended as above, replacement of iron as outlined monitor on telemetry while holding her BP medications/hypotension resolving (8) GERD (gastroesophageal reflux disease): Plan: Hx nix's esophagus Continue Pepcid and Protonix Having worsening heartburn symptoms last few weeks -- states improvement after having BM as well Maalox as needed May need to return to GI for EGD as an outpatient, consulted while inpatient given above/esophageal thickening/hx angela on prior EGD (9) Ankle pain, left: Plan: Suspect left ankle sprain X-rays of the ankle and foot negative for fracture, notes soft tissue swelling --> ortho consult as above and continue ice/orthotics consult and f/u in 4 wks (10) Hypomagnesemia: Plan: Likely due to poor p.o. intake recently, PPI use. Reported cramping in legs/hands recently -- will also check B12 and replacement as above NORMAL ON REPEAT -- consider daily supplementation given chronic PPI BID for barretts (11) Abrasion: Plan: Left forearm Wound care (12) Anxiety: Plan: Continue duloxetine, BuSpar (13) Diabetic neuropathy: Plan: Continue duloxetine B12 low normal and will give IM while inpatient, continue PO at d/c (14) Depression: Plan: Continue duloxetine (15) Diabetic gastroparesis: Plan: Noted Encouraging small/frequent meals, bowel regimen +BM large this morning, again this afternoon 10/26 (16) Obesity (BMI 30.0-34.9): Plan: BMI 30.3 Needs weight loss (17) Vitamin D deficiency: Plan: Vit 28.2 Apr 2019, continued on vitamin D supplementation (18) Dyslipidemia: Plan: Continue rosuvastatin, Zetia Hold home omega-3 (19) Chronic pain syndrome: Plan: Continue duloxetine (20) Sprain of left foot: Plan: as above, outpt f/u (21) Hypotension: Plan: improving with above but still borderline. diuretics placed on hold as above and continue IVF for now and hold BP medications Plan: DVT prophylaxis Lovenox, SCDs while inpatient DNR/DNI as per discussion with patient. Her friend, Franck Ortega, is her main point of contact although he does not have a legal power of energy attorney. She does have a sister and a daughter who could also be involved in her care but she wishes for Franck to be her main decision maker in the event she is not able to make decisions. Dipso: PT/OT consulted, pending (orthotics not yet delivered) --> Suspect will need rehab at d/c. CM to follow Admission and Anticipated Discharge Date Admission Date: October 24, 2021 Supervising Physician Co-Signing Physician Notes PA Supervision Note: I did not personally see or examine the patient today, but I verified all hathaway points of JAVI Beckwith's assessment and plan with the following exceptions/additions: None Subjective Patient evaluated this morning. Feeling much better. No lightheaded/dizziness. Large Bm, denied any blood but noted to be her usual black/dark tarry appearance.No abdominal pain,reflux currently controlled and states only occasional discomfort at times. She notes the 1/2 bottle mag citrate worked wonders, and she typically uses a whole bottle at home when she is backed up. Discussed extra BP medications and holding for now until BP further improved/resolved. Encouraged pushing oral fluids and possible d/c IVF this afternoon if able to keep up. Urinating without issue, states yellow in color, but was unable to give sample to nursing. Denies burning with urination but has urgency at times, but could be due to elevated BSGs, which had been improved today. Has not gotten her brace yet and will look into getting -- has been order by ortho but discussed [facility] may not be delivering until tomorrow. No fever/chills, chest pain, shortness of breath. Improvement in fatigue. Discussed numbness/tingling and metformin use and checked B12/low normal and will order replacement. Awaiting to work with therapy currently but states she thinks she has to move her bowels again. Review of Systems Review of Systems: All systems reviewed & are unremarkable except as noted in HPI & below Physical Exam Constitutional: WD/WN, vitals as above (fatigued appearing, +general pallor, improved) Eyes: eyes anicteric, pupils equal and reactive ENMT: slightly dry mm, posterior oropharynx normal Neck: trachea midline, no thyromegaly Respiratory: normal respiratory effort, lungs clear to auscultation (diminishe d in the bases, no w/c/r, on room air) Cardiovascular: Rate/Rhythm: regular rate and regular rhythm Heart Sounds: no murmur Extremities: + edema (Ankle edema 1+ pitting left (decreased) greater than right) Chest (Breasts): Chest: normal inspection of chest Gastrointestinal (Abdomen): +BS throughout, less distension, minimal tenderness epigastric region otherwise non-tender, no guarding/rigidity Musculoskeletal: Extremities: + extremities abnormal to inspection (Swelling left ankle, no erythema), no cyanosis and no clubbing Skin: no rashes, warm and dry Neurologic: moves all extremities and awake; no focal motor deficits and not confused Motor/Sensory: no tremor and no sensory deficit Psychiatric: A+Ox3, euthymic affect Genitourinary: no ramirez Lymphatic: no lymphedema Results & Data Results & Data ([facility]) Vital Signs (Past 12 Hours) Vital Signs Temp Pulse Pulse Resp BP BP Pulse Ox 10/26/21 07:13 36.6 C 68 18 96/59 L 90 10/26/21 07:07 64 10/26/21 03:50 36.2 C L 72 18 90/57 L 90 10/25/21 23:03 36.5 C 68 20 96/60 L 91 10/25/21 19:11 80/48 L 10/25/21 19:00 36.3 C L 72 18 70/47 L 93 Laboratory Results 10/26/21 10/26/21 10/25/21 Range/Units 06:11 06:11 20:28 WBC 8.88 (4.8-10.8) K/uL RBC 3.63 L (4.2-5.4) M/uL Hgb 10.3 L (12.0-16.0) g/dL Hct 30.8 L (37-47) % MCV 84.8 (80-100) fL MCH 28.4 (25-34) pg MCHC 33.4 (32-36) g/dL RDW Std Deviation 43.9 (36.4-46.3) fL RDW Coeff of Tino 14.1 (11.5-14.5) % Plt Count 213 (130-400) K/uL MPV 9.8 (7.4-10.4) fL Immature Gran % (Auto) % Neut % (Auto) % Lymph % (Auto) % [place] % (Auto) % Eos % (Auto) % Baso % (Auto) % Neut # (Auto) (1.4-6.5) K/uL Lymph # (Auto) (1.2-3.4) K/uL [place] # (Auto) (0.11-0.59) K/uL Eos # (Auto) (0-0.5) K/uL Baso # (Auto) (0-0.2) K/uL Immature Gran # (Auto) (0.00-0.02) K/uL ESR (0-30) mm/hr Sodium 135 L (136-145) mmol/L Potassium 3.8 (3.5-5.1) mmol/L Chloride 106 (98-107) mmol/L Carbon Dioxide 25 (21-32) mmol/L Anion Gap 4 (3-11) BUN 20 (6-23) mg/dl Creatinine 1.22 H (0.6-1.2) mg/dl Est Cr Clr Drug Dosing 43.8 ml/min Est GFR ( Amer) 50.5 ml/min Est GFR (Non-Af Amer) 43.6 ml/min BUN/Creatinine Ratio 16.4 (10-20) Glucose 65 L (70-99(Fasting)) mg/dl POC Glucose (70-99) mg/dl Estimat Average Glucose mg/dl Hemoglobin A1c (4.5-5.6) % Lactate (0.4-2.0) mmol/L Calcium 7.3 L (8.5-10.1) mg/dl Magnesium 2.3 (1.7-2.4) mg/dl Iron (35-150) mcg/dl TIBC (250-450) mcg/dl Unsaturated IBC (155-355) mcg/dl Transferrin % Sat (15-50) % Ferritin (8-388) ng/ml Troponin I (0-0.04) ng/ml C-Reactive Protein (0-0.5) mg/dl Lipase (11-82) U/L Vitamin B12 (180-914) pg/ml Folate (>5.38) ng/ml Stool Occult Bld Scrn Negative (Negative) Lyme Disease IgG Ab (Negative) Lyme Disease IgM Ab (Negative) 10/25/21 10/25/21 10/25/21 Range/Units 20:01 19:22 19:22 WBC 9.01 (4.8-10.8) K/uL RBC 3.80 L (4.2-5.4) M/uL Hgb 10.6 L (12.0-16.0) g/dL Hct 32.1 L (37-47) % MCV 84.5 (80-100) fL MCH 27.9 (25-34) pg MCHC 33.0 (32-36) g/dL RDW Std Deviation 43.0 (36.4-46.3) fL RDW Coeff of Tino 14.1 (11.5-14.5) % Plt Count 247 (130-400) K/uL MPV 10.1 (7.4-10.4) fL Immature Gran % (Auto) 0.4 % Neut % (Auto) 72.4 % Lymph % (Auto) 19.3 % [place] % (Auto) 6.9 % Eos % (Auto) 0.8 % Baso % (Auto) 0.2 % Neut # (Auto) 6.52 H (1.4-6.5) K/uL Lymph # (Auto) 1.74 (1.2-3.4) K/uL [place] # (Auto) 0.62 H (0.11-0.59) K/uL Eos # (Auto) 0.07 (0-0.5) K/uL Baso # (Auto) 0.02 (0-0.2) K/uL Immature Gran # (Auto) 0.04 H (0.00-0.02) K/uL ESR (0-30) mm/hr Sodium (136-145) mmol/L Potassium (3.5-5.1) mmol/L Chloride (98-107) mmol/L Carbon Dioxide (21-32) mmol/L Anion Gap (3-11) BUN (6-23) mg/dl Creatinine (0.6-1.2) mg/dl Est Cr Clr Drug Dosing ml/min Est GFR ( Amer) ml/min Est GFR (Non-Af Amer) ml/min BUN/Creatinine Ratio (10-20) Glucose (70-99(Fasting)) mg/dl POC Glucose 153 H (70-99) mg/dl Estimat Average Glucose mg/dl Hemoglobin A1c (4.5-5.6) % Lactate 1.8 (0.4-2.0) mmol/L Calcium (8.5-10.1) mg/dl Magnesium (1.7-2.4) mg/dl Iron (35-150) mcg/dl TIBC (250-450) mcg/dl Unsaturated IBC (155-355) mcg/dl Transferrin % Sat (15-50) % Ferritin (8-388) ng/ml Troponin I (0-0.04) ng/ml C-Reactive Protein (0-0.5) mg/dl Lipase (11-82) U/L Vitamin B12 (180-914) pg/ml Folate (>5.38) ng/ml Stool Occult Bld Scrn (Negative) Lyme Disease IgG Ab (Negative) Lyme Disease IgM Ab (Negative) 10/25/21 10/25/21 10/25/21 Range/Units 17:47 17:47 17:47 WBC 9.16 (4.8-10.8) K/uL RBC 3.78 L (4.2-5.4) M/uL Hgb 10.8 L (12.0-16.0) g/dL Hct 32.0 L (37-47) % MCV 84.7 (80-100) fL MCH 28.6 (25-34) pg MCHC 33.8 (32-36) g/dL RDW Std Deviation 43.3 (36.4-46.3) fL RDW Coeff of Tino 14.1 (11.5-14.5) % Plt Count 238 (130-400) K/uL MPV 9.5 (7.4-10.4) fL Immature Gran % (Auto) % Neut % (Auto) % Lymph % (Auto) % [place] % (Auto) % Eos % (Auto) % Baso % (Auto) % Neut # (Auto) (1.4-6.5) K/uL Lymph # (Auto) (1.2-3.4) K/uL [place] # (Auto) (0.11-0.59) K/uL Eos # (Auto) (0-0.5) K/uL Baso # (Auto) (0-0.2) K/uL Immature Gran # (Auto) (0.00-0.02) K/uL ESR (0-30) mm/hr Sodium (136-145) mmol/L Potassium (3.5-5.1) mmol/L Chloride (98-107) mmol/L Carbon Dioxide (21-32) mmol/L Anion Gap (3-11) BUN (6-23) mg/dl Creatinine (0.6-1.2) mg/dl Est Cr Clr Drug Dosing ml/min Est GFR ( Amer) ml/min Est GFR (Non-Af Amer) ml/min BUN/Creatinine Ratio (10-20) Glucose (70-99(Fasting)) mg/dl POC Glucose (70-99) mg/dl Estimat Average Glucose mg/dl Hemoglobin A1c (4.5-5.6) % Lactate (0.4-2.0) mmol/L Calcium (8.5-10.1) mg/dl Magnesium (1.7-2.4) mg/dl Iron (35-150) mcg/dl TIBC (250-450) mcg/dl Unsaturated IBC (155-355) mcg/dl Transferrin % Sat (15-50) % Ferritin (8-388) ng/ml Troponin I 0.19 H* (0-0.04) ng/ml C-Reactive Protein (0-0.5) mg/dl Lipase (11-82) U/L Vitamin B12 220 (180-914) pg/ml Folate 5.87 (>5.38) ng/ml Stool Occult Bld Scrn (Negative) Lyme Disease IgG Ab (Negative) Lyme Disease IgM Ab (Negative) 10/25/21 10/25/21 10/25/21 Range/Units 16:35 11:54 11:45 WBC (4.8-10.8) K/uL RBC (4.2-5.4) M/uL Hgb (12.0-16.0) g/dL Hct (37-47) % MCV (80-100) fL MCH (25-34) pg MCHC (32-36) g/dL RDW Std Deviation (36.4-46.3) fL RDW Coeff of Tino (11.5-14.5) % Plt Count (130-400) K/uL MPV (7.4-10.4) fL Immature Gran % (Auto) % Neut % (Auto) % Lymph % (Auto) % [place] % (Auto) % Eos % (Auto) % Baso % (Auto) % Neut # (Auto) (1.4-6.5) K/uL Lymph # (Auto) (1.2-3.4) K/uL [place] # (Auto) (0.11-0.59) K/uL Eos # (Auto) (0-0.5) K/uL Baso # (Auto) (0-0.2) K/uL Immature Gran # (Auto) (0.00-0.02) K/uL ESR (0-30) mm/hr Sodium (136-145) mmol/L Potassium (3.5-5.1) mmol/L Chloride (98-107) mmol/L Carbon Dioxide (21-32) mmol/L Anion Gap (3-11) BUN (6-23) mg/dl Creatinine (0.6-1.2) mg/dl Est Cr Clr Drug Dosing ml/min Est GFR ( Amer) ml/min Est GFR (Non-Af Amer) ml/min BUN/Creatinine Ratio (10-20) Glucose (70-99(Fasting)) mg/dl POC Glucose 119 H 110 H (70-99) mg/dl Estimat Average Glucose mg/dl Hemoglobin A1c (4.5-5.6) % Lactate (0.4-2.0) mmol/L Calcium (8.5-10.1) mg/dl Magnesium (1.7-2.4) mg/dl Iron (35-150) mcg/dl TIBC (250-450) mcg/dl Unsaturated IBC (155-355) mcg/dl Transferrin % Sat (15-50) % Ferritin (8-388) ng/ml Troponin I 0.24 H* (0-0.04) ng/ml C-Reactive Protein (0-0.5) mg/dl Lipase (11-82) U/L Vitamin B12 (180-914) pg/ml Folate (>5.38) ng/ml Stool Occult Bld Scrn (Negative) Lyme Disease IgG Ab (Negative) Lyme Disease IgM Ab (Negative) 10/25/21 10/25/21 10/25/21 Range/Units 08:41 08:41 07:58 WBC (4.8-10.8) K/uL RBC (4.2-5.4) M/uL Hgb (12.0-16.0) g/dL Hct (37-47) % MCV (80-100) fL MCH (25-34) pg MCHC (32-36) g/dL RDW Std Deviation (36.4-46.3) fL RDW Coeff of Tino (11.5-14.5) % Plt Count (130-400) K/uL MPV (7.4-10.4) fL Immature Gran % (Auto) % Neut % (Auto) % Lymph % (Auto) % [place] % (Auto) % Eos % (Auto) % Baso % (Auto) % Neut # (Auto) (1.4-6.5) K/uL Lymph # (Auto) (1.2-3.4) K/uL [place] # (Auto) (0.11-0.59) K/uL Eos # (Auto) (0-0.5) K/uL Baso # (Auto) (0-0.2) K/uL Immature Gran # (Auto) (0.00-0.02) K/uL ESR 38 H (0-30) mm/hr Sodium (136-145) mmol/L Potassium (3.5-5.1) mmol/L Chloride (98-107) mmol/L Carbon Dioxide (21-32) mmol/L Anion Gap (3-11) BUN (6-23) mg/dl Creatinine (0.6-1.2) mg/dl Est Cr Clr Drug Dosing ml/min Est GFR ( Amer) ml/min Est GFR (Non-Af Amer) ml/min BUN/Creatinine Ratio (10-20) Glucose (70-99(Fasting)) mg/dl POC Glucose 327 H* (70-99) mg/dl Estimat Average Glucose mg/dl Hemoglobin A1c (4.5-5.6) % Lactate (0.4-2.0) mmol/L Calcium (8.5-10.1) mg/dl Magnesium (1.7-2.4) mg/dl Iron (35-150) mcg/dl TIBC (250-450) mcg/dl Unsaturated IBC (155-355) mcg/dl Transferrin % Sat (15-50) % Ferritin (8-388) ng/ml Troponin I (0-0.04) ng/ml C-Reactive Protein (0-0.5) mg/dl Lipase (11-82) U/L Vitamin B12 (180-914) pg/ml Folate (>5.38) ng/ml Stool Occult Bld Scrn (Negative) Lyme Disease IgG Ab Negative (Negative) Lyme Disease IgM Ab Negative (Negative) 10/25/21 10/25/21 10/25/21 Range/Units 07:58 05:58 05:58 WBC 7.07 (4.8-10.8) K/uL RBC 3.93 L (4.2-5.4) M/uL Hgb 10.9 L (12.0-16.0) g/dL Hct 33.3 L (37-47) % MCV 84.7 (80-100) fL MCH 27.7 (25-34) pg MCHC 32.7 (32-36) g/dL RDW Std Deviation 43.7 (36.4-46.3) fL RDW Coeff of Tino 14.1 (11.5-14.5) % Plt Count 233 (130-400) K/uL MPV 10.2 (7.4-10.4) fL Immature Gran % (Auto) 0.6 % Neut % (Auto) 69.6 % Lymph % (Auto) 21.4 % [place] % (Auto) 7.8 % Eos % (Auto) 0.3 % Baso % (Auto) 0.3 % Neut # (Auto) 4.93 (1.4-6.5) K/uL Lymph # (Auto) 1.51 (1.2-3.4) K/uL [place] # (Auto) 0.55 (0.11-0.59) K/uL Eos # (Auto) 0.02 (0-0.5) K/uL Baso # (Auto) 0.02 (0-0.2) K/uL Immature Gran # (Auto) 0.04 H (0.00-0.02) K/uL ESR (0-30) mm/hr Sodium (136-145) mmol/L Potassium (3.5-5.1) mmol/L Chloride (98-107) mmol/L Carbon Dioxide (21-32) mmol/L Anion Gap (3-11) BUN (6-23) mg/dl Creatinine (0.6-1.2) mg/dl Est Cr Clr Drug Dosing ml/min Est GFR ( Amer) ml/min Est GFR (Non-Af Amer) ml/min BUN/Creatinine Ratio (10-20) Glucose (70-99(Fasting)) mg/dl POC Glucose 347 H* (70-99) mg/dl Estimat Average Glucose mg/dl Hemoglobin A1c (4.5-5.6) % Lactate (0.4-2.0) mmol/L Calcium (8.5-10.1) mg/dl Magnesium (1.7-2.4) mg/dl Iron 23 L (35-150) mcg/dl TIBC 242 L (250-450) mcg/dl Unsaturated IBC 219 (155-355) mcg/dl Transferrin % Sat 10 L (15-50) % Ferritin 78.5 (8-388) ng/ml Troponin I (0-0.04) ng/ml C-Reactive Protein (0-0.5) mg/dl Lipase (11-82) U/L Vitamin B12 (180-914) pg/ml Folate (>5.38) ng/ml Stool Occult Bld Scrn (Negative) Lyme Disease IgG Ab (Negative) Lyme Disease IgM Ab (Negative) 10/25/21 10/25/21 10/25/21 Range/Units 05:58 05:58 05:58 WBC (4.8-10.8) K/uL RBC (4.2-5.4) M/uL Hgb (12.0-16.0) g/dL Hct (37-47) % MCV (80-100) fL MCH (25-34) pg MCHC (32-36) g/dL RDW Std Deviation (36.4-46.3) fL RDW Coeff of Tino (11.5-14.5) % Plt Count (130-400) K/uL MPV (7.4-10.4) fL Immature Gran % (Auto) % Neut % (Auto) % Lymph % (Auto) % [place] % (Auto) % Eos % (Auto) % Baso % (Auto) % Neut # (Auto) (1.4-6.5) K/uL Lymph # (Auto) (1.2-3.4) K/uL [place] # (Auto) (0.11-0.59) K/uL Eos # (Auto) (0-0.5) K/uL Baso # (Auto) (0-0.2) K/uL Immature Gran # (Auto) (0.00-0.02) K/uL ESR (0-30) mm/hr Sodium 131 L (136-145) mmol/L Potassium 4.1 (3.5-5.1) mmol/L Chloride 101 (98-107) mmol/L Carbon Dioxide 27 (21-32) mmol/L Anion Gap 3 (3-11) BUN 16 (6-23) mg/dl Creatinine 1.11 (0.6-1.2) mg/dl Est Cr Clr Drug Dosing 46.9 ml/min Est GFR ( Amer) 56.7 ml/min Est GFR (Non-Af Amer) 48.9 ml/min BUN/Creatinine Ratio 14.4 (10-20) Glucose 348 H* (70-99(Fasting)) mg/dl POC Glucose (70-99) mg/dl Estimat Average Glucose 309 mg/dl Hemoglobin A1c 12.4 H (4.5-5.6) % Lactate (0.4-2.0) mmol/L Calcium 9.0 (8.5-10.1) mg/dl Magnesium 2.2 (1.7-2.4) mg/dl Iron (35-150) mcg/dl TIBC (250-450) mcg/dl Unsaturated IBC (155-355) mcg/dl Transferrin % Sat (15-50) % Ferritin (8-388) ng/ml Troponin I 0.24 H* (0-0.04) ng/ml C-Reactive Protein 11.43 H (0-0.5) mg/dl Lipase 13 (11-82) U/L Vitamin B12 (180-914) pg/ml Folate (>5.38) ng/ml Stool Occult Bld Scrn (Negative) Lyme Disease IgG Ab (Negative) Lyme Disease IgM Ab (Negative) Diagnostic Findings Abdomen/Pelvis CT 10/25/21 12:[address] WITH IV CONTRAST CT DOSE: 638.67 mGy.cm HISTORY: epigastric pain/dysphagia, anemia, s/p fall TECHNIQUE: Multiaxial CT images of the abdomen and pelvis were performed following the use of intravenous contrast. A dose lowering technique was utilized adhering to the principles of ALARA. COMPARISON STUDY: Pelvis CT 10/24/2021. Abdomen and pelvis CT 03/21/2021. FINDINGS: Bibasilar subsegmental atelectasis is noted. Punctate calcified granuloma within the left lower lobe. No pneumoperitoneum. No pneumatosis. No fractures within the visualized osseous structures. Mild circumferential thickening of the distal esophagus, unchanged. The heart is normal in size. Prior cholecystectomy. The main portal vein is patent. Mild calcified plaque within the normal caliber abdominal aorta. The liver, spleen, adrenal glands, and pancreas unremarkable. Bilateral cortical renal scarring is again noted. No renal or ureteral stones. No hydronephrosis. The bladder is unremarkable. The uterus is surgically absent. No pelvic free fluid or pelvic lymphadenopathy. No evidence for bowel obstruction. The appendix is not identified and may also be surgically absent given the hysterectomy. Submucosal fat deposition within the proximal colon. This is likely chronic. IMPRESSION: 1. Mild circumferential thickening of the distal esophagus, unchanged. This favors a chronic esophagitis. Follow-up nonemergent endoscopy can be performed for further evaluation. 2. No evidence for bowel obstruction. 3. Postoperative changes as described above. ACT 112: Negative or not required by law. Electronically signed by: Vijay Vega M.D. 10/25/2021 1:49 PM PG Care Time/CCT Total # of Minutes Spent Total Time Spent with Patient: Total time spent is greater than 50% in coordination of care (as documented) at patient's floor/unit and/or counseling patient: Coding Level of Care Code 58656 Subseq Hosp Care Lvl 3 Diagnoses Fall W19.XXXA Back pain M54.9 Elevated troponin R77.8 CAD (coronary artery disease) I25.10 Associated angina: angina presence unspecified Coronary Disease-Associated Artery/Lesion type: [place] artery [place] vs. transplanted heart: [place] heart DM w/o complication type II, uncontrolled E11.65 Glycemic state: with hyperglycemia Ankle pain, left M25.572 Hypomagnesemia E83.42 Abrasion T14.8XXA Anxiety F41.9 GERD (gastroesophageal reflux disease) K21.9 Esophagitis presence: without esophagitis Diabetic neuropathy E11.40 Depression F32.9 Diabetic gastroparesis E11.43; K31.84 HTN (hypertension) I10 Obesity (BMI 30.0-34.9) E66.9 Vitamin D deficiency E55.9 Dyslipidemia E78.5 Chronic pain syndrome G89.4 Sprain of left foot S93.602A Hypotension I95.9 Anemia D64.9 (1) CAD (coronary artery disease) Associated angina: angina presence unspecified Coronary Disease-Associated Artery/Lesion type: [place] artery [place] vs. transplanted heart: [place] heart Qualified Code(s): I25.10 - Atherosclerotic heart disease of [place] coronary artery without angina pectoris (2) DM w/o complication type II, uncontrolled Glycemic state: with hyperglycemia Qualified Code(s): E11.65 - Type 2 diabetes mellitus with hyperglycemia (3) GERD (gastroesophageal reflux disease) Esophagitis presence: without esophagitis Qualified Code(s): K21.9 - Gastro- esophageal reflux disease without esophagitis
[2021-10-26] MEDS ORDERED: IRON SUCROSE 200 MG in 0.9 % SODIUM CHLORIDE 100 ML IV ONE (07:47)
[2021-10-26] MEDS ORDERED: IRON SUCROSE 300 MG in SODIUM CHLORIDE 0.9% 250 ML IV ONE (08:00)
[2021-10-26] MEDS: ROSUVASTATIN CALCIUM 20 MG TAB PO SCH (08:22)
[2021-10-26] MEDS: CHOLECALCIFEROL 1,000 UNITS 25 MCG TAB PO SCH (08:22)
[2021-10-26] MEDS: EZETIMIBE 10 MG TABLET PO SCH (08:23)
[2021-10-26] MEDS: ASPIRIN 81 MG ECTAB PO SCH (08:23)
[2021-10-26] MEDS: DULoxetine HCL 30 MG CAP PO SCH (08:23)
[2021-10-26] MEDS: busPIRone 5 MG TAB PO SCH ×3 (08:26→20:55)
[2021-10-26] MEDS: PANTOprazole 40 MG TAB PO SCH ×2 (08:26→20:55)
--- NOTE | 2021-10-26 08:31 | Pharmacy Report ---
Pharmacy Glycemic Short Note 2 - Date of Service October 26, 2021 - Glycemic Short BSG Results (Last 24 hours): 10/25/21 10/25/21 10/25/21 07:58 07:58 11:54 Glucose POC Glucose 347 H* 327 H* 110 H 10/25/21 10/25/21 10/26/21 16:35 20:01 06:11 Glucose 65 L POC Glucose 119 H 153 H 10/26/21 10/26/21 07:42 07:43 Glucose POC Glucose 61 L* 61 L* OUTPATIENT ANTIDIABETIC REGIMEN: * Tresiba 15 units SQ AM, 33 units HS * Novolog 5 units with breakfast and lunch; 10 units with dinner ASSESSMENT: 10/26/21 * Patient received 99 units of insulin yesterday, 58 units basal, 41 units bolus * Patient's BSGs much better controlled yesterday since pharmacy consulted, [phone]/dl, but patient is hypoglycemic this AM, 61mg/dl * Reduce AM basal (extra was given yesterday) and loosen CF/CR to prevent further hypoglycemia 10/25/21 * 76 year old uncontrolled type 2 DM , A1c 12.4% on basal bolus insulin at home, admitted for fall/hurt knee, ortho consult. * Blood sugars in 300s since admission yesterday, d/t insufficient basal and bolus insulin, tighten CF/CR and give supplemental AM basal dose this morning. * Blood sugar now at goal 110mg/dl pre-lunch after extra NovoLog and Lantus this AM. PLAN FOR INPATIENT GLYCEMIC CONTROL: * Basal insulin * Lantus 10 units SQ AM * Lantus 33 units HS * Bolus insulin * NovoLog per scale ACHS or Q6hrs while NPO * Goal Range: Low 110 mg/dL - High 140 mg/dL * Correction Factor: 25 mg/dL/unit * Nutritional / Prandial insulin per carb ratio of 1 unit per 8 grams CHO consumed
[2021-10-26] MEDS: CYANOCOBALAMIN 1000 MCG/ML VIAL IM SCH (08:32)
[2021-10-26] MEDS: FAMOTIDINE 20 MG TAB PO SCH ×2 (08:37→20:55)
[2021-10-26] MEDS: LIDOCAINE 5% 1 PATCH TD SCH (08:40)
[2021-10-26] MEDS: INSULIN ASPART PER UNIT SC SCH ×4 (08:56→21:10)
[2021-10-26] MEDS ORDERED: FOLIC ACID 400 MCG TAB PO SCH (09:00)
[2021-10-26] MEDS: INSULIN GLARGINE SOLOSTAR 100 UNITS/ML 3 ML PEN SC SCH ×2 (09:00→21:10)
--- NOTE | 2021-10-26 09:20 | XRay Report ---
XR knee LT 3V HISTORY: 76 years-old Female fall, knees gave out acute left knee pain status post fall COMPARISON: 09/20/2019 TECHNIQUE: 3 views of the left knee FINDINGS: Mild lateral with moderate medial and patellofemoral compartment osteoarthritis. Marginal spurring of the tibial spines. No acute fracture, dislocation or large joint effusion. IMPRESSION: 1. No acute fracture or dislocation. 2. Moderate medial and patellofemoral compartment osteoarthritis. ACT 112: Negative or not required by law. The above report was generated using voice recognition software. It may contain grammatical, syntax o r spelling errors. Electronically signed by: Jordan Vee M.D. 10/26/2021 9:18 AM
--- NOTE | 2021-10-26 09:21 | Electrocardiogram Report ---
Test Reason : Blood Pressure : / mmHG Vent. Rate : 069 BPM Atrial Rate : 069 BPM P-R Int : 160 ms QRS Dur : 068 ms QT Int : 392 ms P-R-T Axes : 054 020 027 degrees QTc Int : 420 ms Normal sinus rhythm Diffuse Nonspecific T wave abnormality Abnormal ECG When compared with ECG of 25-OCT-2021 05:46, No significant change Confirmed by Bear Ruiz ([id number]) on 10/26/2021 9:20:43 AM Referred By: REFERRED SELF Confirmed By:Bear Ruiz
--- NOTE | 2021-10-26 11:40 | Progress Notes ---
DATE OF SERVICE: 10/26/2021. SUBJECTIVE: A 76-year-old female admitted status post a fall for multiple medical issues along with left foot and leg pain and back pain. Once again, her knee gave out, which was the source of her fal l. She does have known arthritis in her knee and we have been managing that. She does not really arreola ve much knee pain, but continues to have persistent foot pain. No real interval change from yesterda y. OBJECTIVE: VITAL SIGNS: Temperature 36.6. Vital signs are stable. GENERAL: Physical examination shows a pleasant, elderly female. She was sitting up on the bedside c ommode this morning. EXTREMITIES: Examination of the left leg and foot reveals some moderate diffuse swelling of her foot . There is no visible deformity. She is diffusely tender to palpate around her foot. She has got a well-aligned knee. No real knee effusion. She can do a good straight leg raise. She is neurologic ally intact. ASSESSMENT: A 76-year-old female status post right knee replacement with known left knee degenerativ e joint disease, status post a fall with a left mid foot sprain. No signs of fracture. She is reall y not having much knee pain, mostly just foot pain. PLAN: At this point, I would just recommend a compression bandage/GHISLAINE stockings/Tubigrip stockinette on her leg and foot to help control swelling. We ordered a low tide walking boot to wear while weig htbearing for the next 4 weeks. She can weight bear as tolerated in the boot. It is going to be jessica nful some, but it is okay to do. As far as her knee, she is not really having much pain in this. I would recommend therapy to strengthen her leg. We will continue intermittent injections as per her a rthritic protocol. I will see her back in a month for an assessment of all of these things. Any ort hopedic questions can be directed to me at [phone]. Job ID: [id number]
[2021-10-26] MEDS: DICLOFENAC SOD 1% GEL 100 GM TUBE EXT SCH ×3 (12:01→20:55)
--- NOTE | 2021-10-26 13:02 | Gastrointestinal Consultation ---
Date of Consultation October 26, 2021 Supervising Physician Co-Signing Physician Notes Would conitnue with oral ppi/pepcid. There are not current signs of an active gi bleed. This consult was seen for Dr. Gracia. [facility] to follow the patient in the am. History of Present Illness Reason for Consultation: ? dark stools Requesting Physician: Evelyn Beckwith Attending Physician: Malissa Saavedra MD History of Present Illness 76 yo fm knonw to [facility]- follows for nix's reportedly. Admitted on 10/24 with a fall. GI now consulted for reportedly dark stools. The patient is eating lunch when seeing her this afternoon. Denies any belly pain, hematemesis, hematochezia. No recent nsaid use. Enjoying her turkey and gravy. No acute complaints voiced to GI today. Allergies Allergy/AdvReac Type Severity Reaction Status Date / Time cephalexin Allergy Intermediate Rash and Verified 10/24/21 14:03 itchiness Cephalosporins Allergy Intermediate Rash and Verified 10/24/21 14:03 itchiness Sulfa (Sulfonamide Allergy Intermediate Hives Verified 10/24/21 14:03 Antibiotics) Home Medications Medication Instructions Recorded Confirmed Type nitroglycerin 0.4 mg sublingual 0.4 mg SUBLINGUAL UD PRN #0 btl 07/27/17 10/24/21 History tablet (Nitrostat) omega 1-dsf-csu-fish oil 1,000 mg 1,000 mg PO QAM #0 cap 07/27/17 10/24/21 History (120 mg-180 mg) capsule (Fish Oil) cholecalciferol (vitamin D3) 25 1,000 units PO QAM #0 tab 04/05/19 10/24/21 History mcg (1,000 unit) capsule (Vitamin D3) linaclotide 145 mcg capsule 145 mcg PO QAM PRN cap 04/05/19 10/24/21 History (Linzess) rosuvastatin 40 mg tablet 40 mg PO QAM #90 tab 07/18/20 10/24/21 Rx pen needle, diabetic 32 gauge x ea 11/18/20 10/24/21 History 532" (BD Ultra-Fine [place] Pen Needle) ezetimibe 10 mg tablet (Zetia) 10 mg PO QAM 12/03/20 10/24/21 History insulin aspart U-100 100 unit/mL 20 unit SUBCUT DAILY #2 box 01/21/21 10/24/21 Rx (3 mL) subcutaneous pen (Novolog Flexpen U-100 Insulin aspart) insulin degludec 100 unit/mL (3 33 unit SQ QPM 03/26/21 10/24/21 History mL) subcutaneous pen (Tresiba FlexTouch U-100 insulin) buspirone 10 mg tablet 10 mg PO TID #270 tab 05/07/21 10/24/21 Rx famotidine 20 mg tablet 20 mg PO BID #180 tab 05/07/21 10/24/21 Rx lisinopril 10 mg tablet 10 mg PO QAM #90 tab 05/07/21 10/24/21 Rx metformin 500 mg tablet 1,000 mg PO BID #120 tab 05/07/21 10/24/21 Rx pantoprazole 40 mg tablet,delayed 40 mg PO BID #60 tab 05/07/21 10/24/21 Rx release ondansetron HCl 4 mg tablet 4 mg PO Q8H PRN #30 tab 06/24/21 10/24/21 Rx flash glucose scanning reader 06/26/21 10/24/21 History (FreeStyle Ren[place] 2 [place]) flash glucose sensor (FreeStyle 06/26/21 10/24/21 History Renan 2 Sensor) Gvoke HypoPen 2-Pack 1 mg/0.2 mL 1 mg SUBCUT .COMPLEX #0.4 ml NS 06/27/21 10/24/21 Rx subcutaneous auto-injector (glucagon) blood sugar diagnostic (OneTouch #200 ea 08/14/21 10/24/21 Rx Verio test strips) carvedilol 6.25 mg tablet 6.25 mg PO BID #180 tab 08/19/21 10/24/21 Rx duloxetine 30 mg capsule,delayed 30 mg PO QAM #90 cap 08/19/21 10/24/21 Rx release isosorbide mononitrate 30 mg 60 mg PO QAM #180 tab 08/19/21 10/24/21 Rx tablet,extended release 24 hr chlorthalidone 25 mg tablet 25 mg PO DAILY #30 tab 08/26/21 10/24/21 Rx aspirin 81 mg tablet,delayed 81 mg PO QAM 10/24/21 10/24/21 History release Patient History Medical History (Updated 10/25/21 @ 14:50 by Evelyn Beckwith PA-C) Nix esophagus CAD (coronary artery disease) s/p stents to RCA November 2005; s/p stents to LAD, LCx in January 2006; s/p stents to RCA in 08/2006 Cervical pain (neck) Chest pain Chronic pain syndrome Depression Diabetes mellitus, type 2 IDDM Diabetic gastroparesis Diabetic peripheral neuropathy Dyslipidemia GERD without esophagitis HTN (hypertension) IBS (irritable bowel syndrome) Lumbar spondylosis Migraine headache Myocardial Infarction [place]- November 2005, January 2006, Aug 2006 3 total within an 8 month span--HX OF CATH 2012 [facility], FOLLOWS WITH DR. JULES Non-ST elevation (NSTEMI) myocardial infarction Obesity Sprain of left foot Vitamin D deficiency Surgical History History of cardiac cath last 2012 @ [facility], no stents--s/p stents to RCA November 2005; s/p stents to LAD, LCx in January 2006; s/p stents to RCA in 08/2006 History of cataract surgery BL History of cholecystectomy History of colonoscopy with polypectomy History of esophageal dilatation History of esophagogastroduodenoscopy (EGD) History of lumbar spinal fusion History of tooth extraction all teeth History of total hysterectomy with bilateral salpingo-oophorectomy (BSO) History of total right knee replacement (TKR) S/P coronary artery stent placement s/p stents to RCA November 2005; s/p stents to LAD, LCx in January 2006; s/p stents to RCA in 08/2006 Status post trigger finger release right thumb Family History Brother Myocardial infarction Anxiety Heart disease Hypertension Cancer Sister Family history of reaction to anesthesia difficulty waking Hypertension Heart disease Myocardial infarction Anxiety Cancer Diabetes Father Anxiety Heart disease Hypertension Mother Anxiety Hypertension Heart disease Unknown Cancer skin, GI Denies family history of Ovarian cancer Prostate cancer Breast cancer Colorectal cancer Stroke Social History Smoking Status: Former smoker Tobacco Type: Cigarettes Age Started Using Tobacco: 18; Age Quit Using Tobacco: 22; Cigarettes Per Day: 3 cigarettes a week; Smoking End Date: ; Second Hand Exposure: No; Do You Dip or Chew Tobacco: No; Tobacco Cessation Education Requested by Patient: No Hx Alcohol Use: No Hx Substance Use: No Preferred Language: [place] Communication Ability: Effective Visual Impairment: Limited Hearing Ability: Normal Livestock Trader Required: No Beliefs That Will Affect Care: None marital status: / Current Living Situation: Alone current occupational status: retired and disabled How many Children do You have: 3 Other Information That Helps Us Care for You: No Feels Safe at Home: Yes Safety Concerns: Feels Safe At This Time Childhood Exposure to Second-Hand Smoke: No caffeine: Yes (drinks coffee, diet pepsi occasionally ) Dental Care, Regularly: No Physical Activity Frequency: Does not Exercise Seatbelt Use: always Sunscreen Use: No Assistive Devices: Denture - Upper and Glasses Review of Systems Review of Systems: All systems reviewed & are unremarkable except as noted in HPI & below Physical Exam Physical Exam: Well nourished fm in nad Eyes: PERRL, conjunctivae normal, anicteric sclerae Respiratory: normal respiratory effort, lungs clear to auscultation Results & Data ([facility]) Vital Signs (Past 12 Hours) Vital Signs Temp Pulse Pulse Resp BP Pulse Ox 10/26/21 11:34 36.4 C L 79 18 97/61 L 93 10/26/21 07:13 36.6 C 68 18 96/59 L 90 10/26/21 07:07 64 10/26/21 03:50 36.2 C L 72 18 90/57 L 90 Laboratory Results Hgb has been stable in the 8 range, no bun elevation
[2021-10-26] MEDS ORDERED: Nursing to Pharmacy Communication SCH (16:45)
[2021-10-26 18:25] LABS: Appearance Urine Cloudy (Clear); Bilirubin Urine Negative (Negative); Blood Urine Negative (Negative); Color Urine Dark Yellow; Epithelial Cell Urine Auto >30 /lpf (0-5); Glucose Urine UA 3+ (Negative); Ketones Urine Negative (Negative); Leukocyte Esterase Urine 1+ (Negative); Nitrite Urine Negative (Negative); Protein Urine Trace (Negative); Specific Gravity Urine > 1.045 (1.000-1.030); Urobilinogen Urine Negative (Negative); WBC Urine Automated >30 /hpf (0-5)
[2021-10-26 18:39] LABS: Bacteria Urine Automated 1+ (Negative)
[2021-10-26] MEDS: ENOXAPARIN INJ 40 MG/0.4 ML SYR SQ SCH (20:55)
[2021-10-27] MEDS: ACETAMINOPHEN 500 MG TAB PO SCH ×3 (05:23→20:49)
[2021-10-27 07:43] LABS: Hematocrit (blood only) 36.2 % (37-47); Hemoglobin 11.9 g/dL (12.0-16.0); Mean Corpuscular Hemoglobin 27.7 pg (25-34); Mean Corpuscular Hgb Conc 32.9 g/dL (32-36); Mean Corpuscular Volume 84.4 fL (80-100); Platelet Count 249 K/uL (130-400); RDW Coefficient of Variation 14.2 % (11.5-14.5); RDW Standard Deviation 42.9 fL (36.4-46.3); Red Blood Count 4.29 M/uL (4.2-5.4); White Blood Count 5.62 K/uL (4.8-10.8)
[2021-10-27] MEDS: DICLOFENAC SOD 1% GEL 100 GM TUBE EXT SCH ×4 (07:49→20:47)
[2021-10-27] MEDS: ASPIRIN 81 MG ECTAB PO SCH (07:49)
[2021-10-27] MEDS: CYANOCOBALAMIN 1000 MCG/ML VIAL IM SCH (07:51)
[2021-10-27] MEDS: FAMOTIDINE 20 MG TAB PO SCH ×2 (07:51→20:48)
[2021-10-27] MEDS: PANTOprazole 40 MG TAB PO SCH ×2 (07:51→20:48)
[2021-10-27] MEDS: CHOLECALCIFEROL 1,000 UNITS 25 MCG TAB PO SCH (07:52)
[2021-10-27] MEDS: EZETIMIBE 10 MG TABLET PO SCH (07:52)
[2021-10-27] MEDS: busPIRone 5 MG TAB PO SCH ×3 (07:52→20:46)
[2021-10-27] MEDS: ROSUVASTATIN CALCIUM 20 MG TAB PO SCH (07:52)
[2021-10-27] MEDS: DULoxetine HCL 30 MG CAP PO SCH (07:52)
[2021-10-27] MEDS: ISOSORBIDE MONO EXTENDED REL 60 MG TABCR PO SCH (07:53)
[2021-10-27] MEDS: LIDOCAINE 5% 1 PATCH TD SCH (07:53)
[2021-10-27] MEDS: oxyCODONE HCL IR 5 MG TAB (IMMEDIATE RELEASE) PO PRN (08:02)
[2021-10-27] MEDS: INSULIN ASPART PER UNIT SC SCH ×4 (08:02→20:50)
[2021-10-27] MEDS: FOLIC ACID 400 MCG TAB PO SCH (08:24)
[2021-10-27 08:26] LABS: BUN Creatinine Ratio 21.6 (10-20); Calcium 7.9 mg/dl (8.5-10.1); Creatinine Clr Calc Pharmacy 60.6 ml/min; Est GFR (Non-African American) 64.7 ml/min; Magnesium 2.2 mg/dl (1.7-2.4); Potassium 4.2 mmol/L (3.5-5.1)
--- NOTE | 2021-10-27 08:37 | Gastrointestinal Consultation ---
Date of Consultation October 27, 2021 Assessment & Plan (1) Anemia: Dark stools: The patient with complaints of dark stools that occurred approximately 1 week ago. She has a history of severe LA grade D esophagitis, Mckeon's esophagus and has been maintained on PPI and famotidine with good c ontrol of symptoms. 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 Hemoccult stool testing while inpatient has been negative. Would recommend continuation of pantoprazole 40 mg p.o. twice daily and famotidine 20 mg twice daily. Anemia: Hemoglobin 11.9, hematocrit 36.2 this morning. 10/25/2021 iron 23, TIBC 242, TSAT 10%, ferritin 78.5. Consistent with iron deficiency anemia with good iron stores at the present time. Recommend further GI work-up as an outpatient - likely will need repeat EGD and COLO. Case reviewed with Dr. To. Please refer to supervising physician addendum for further recommendations. I have spent 45 minutes of discrete time performing the activities of this visit which include but are not limited to review of the medical record, obtaining a history, physical exam, and entering information in the electronic record. (2) GERD (gastroesophageal reflux disease): Supervising Physician Co-Signing Physician Notes I have seen and examined the patient. I agree with note above by LUIS FERNANDO Pacheco except as noted below. HPI Pt with hx of black stools but heme neg stool present. Hx of grade D esophagitis but currently symtpoms controlled on PPI and famotidine. CT a/p es ophageal thickenign and Fe def noted. No abd pain at prestn. PE Abdomen pos bs, soft, no guarding nor rebound A/P Fe def anemia--no active bleedign at presnt -continue Fe, outpt workup to include EGD +/- colonoscopy GERd , hx of Barretts continue PPI and famotdine. Will sign off. Send patient to GI office on DC. Please call for further questions. As the supervising physician, I , Lio To MD have spent 31 minutes of discrete time performing the activities of this visit which include but not limited to review of the medical records, obtaining a history, physical exam and entering information in the electronic record. LUIS FERNANDO Pacheco has reported spending 45 minutes of discrete time with the activities of this visit. History of Present Illness Attending Physician: Malissa Saavedra MD History of Present Illness The patient is a pleasant 76-year-old female with a past medical history to include DM 2, CAD s/p stent in 2005, HTN, chronic diastolic CHF, gastroparesis, hyperlipidemia, left knee OA, GERD with Mckeon's esophagus and erosive esophagitis who presented to the emergency department 10/24/2021 after a fall at home 2 days prior to ER arrival. The GI service is consulted due to complaints of history of Mckeon's, black stools, anemia, JERMAINE. Prior history: 04/01/2021: EGD notes are reviewed performed the history of heartburn, Mckeon's, follow-up of esophagitis which demonstrated esophageal mucosal changes consistent with short segment Mckeon's esophagus which was biopsied. A small hiatal hernia was noted. Normal stomach and normal examined duodenum. Pathology results demonstrated esophagus 37 cm biopsy with multiple fragments of benign mildly inflamed gastric mucosa with focal intestinal metaplasia seen.. Esophageal 35 cm biopsy demonstrated moderate diffuse chronic active esophagitis with abundant benign glandular epithelium seen. Negative for intestinal metaplasia, dysplasia, carcinoma. 03/04/2020: EGD notes are reviewed performed due to history of dysphagia and Mckeon's esophagus demonstrated esophageal plaques found consistent with candidiasis with cells for cytology obtained. Normal stomach. Regular Z-line found 35 cm from the incisors. Normal examined duodenum. Microbiology results demonstrated Renea albicans/dubliniensis 03/04/2020: Colonoscopy was obtained due to history of rectal bleeding which demonstrated anal stricture found on digital rectal exam. Nonbleeding internal hemorrhoids which were mild were noted. There was no specimens collected. Recommendation for repeat colonoscopy in 10 years for screening purposes. 11/03/2019: EGD notes are reviewed performed due to history of heartburn, GERD, Mckeon's which demonstrated variable Z-line 35 cm from the incisors. Small hiatal hernia. LA grade D reflux esophagitis. Esophageal mucosal changes suspicious for short segment Mckeon's esophagus with biopsies obtained. Normal stomach and normal examined duodenum. Esophagus biopsy demonstrated inflamed column nerve/cardia type mucosa. Negative for intestinal metaplasia and dysplasia. No squamous mucosa present within the specimen. 08/11/2019: EGD notes reviewed performed due to history of dysphagia and chest pain demonstrated a small to medium size hiatal hernia. Esophogastric landmarks identified with Z-line at 34 cm from the incisors. Esophageal mucosal changes consistent with short segment Mckeon's esophagus present in the lower third of the esophagus. LA grade B esophagitis was found. Normal stomach, examined duodenum. No specimens were collected. On exam/interview today, the patient reports that overall she has been feeling well. She states she noted episode of dark stools Wednesday a week ago. She inpatient due to fall with left-sided pain. She denies any specific abdominal pain. Denies nausea or vomiting. She reports a bowel movement 1-2 times daily. She denies any further episodes of melena or dark or bright red blood in her stool. She has been compliant with GI medications including PPI twice daily. She has no voice complaints today. She is tolerating p.o. diet without any difficulty. She is a lifetime non-smoker. Denies any alcohol intake. Denies use of recreational drugs including marijuana. She is retired. She worked for [employer] for 28 years. She is a and lives alone. She has 3 living adult children and multiple grandchildren. Allergies Allergy/AdvReac Type Severity Reaction Status Date / Time cephalexin Allergy Intermediate Rash and Verified 10/24/21 14:03 itchiness Cephalosporins Allergy Intermediate Rash and Verified 10/24/21 14:03 itchiness Sulfa (Sulfonamide Allergy Intermediate Hives Verified 10/24/21 14:03 Antibiotics) Home Medications Medication Instructions Recorded Confirmed Type nitroglycerin 0.4 mg sublingual 0.4 mg SUBLINGUAL UD PRN #0 btl 07/27/17 10/24/21 History tablet (Nitrostat) omega 2-qzy-poj-fish oil 1,000 mg 1,000 mg PO QAM #0 cap 07/27/17 10/24/21 History (120 mg-180 mg) capsule (Fish Oil) cholecalciferol (vitamin D3) 25 1,000 units PO QAM #0 tab 04/05/19 10/24/21 History mcg (1,000 unit) capsule (Vitamin D3) linaclotide 145 mcg capsule 145 mcg PO QAM PRN cap 04/05/19 10/24/21 History (Linzess) rosuvastatin 40 mg tablet 40 mg PO QAM #90 tab 07/18/20 10/24/21 Rx pen needle, diabetic 32 gauge x ea 11/18/20 10/24/21 History 5/32" (BD Ultra-Fine [place] Pen Needle) ezetimibe 10 mg tablet (Zetia) 10 mg PO QAM 12/03/20 10/24/21 History insulin aspart U-100 100 unit/mL 20 unit SUBCUT DAILY #2 box 01/21/21 10/24/21 Rx (3 mL) subcutaneous pen (Novolog Flexpen U-100 Insulin aspart) insulin degludec 100 unit/mL (3 33 unit SQ QPM 03/26/21 10/24/21 History mL) subcutaneous pen (Tresiba FlexTouch U-100 insulin) buspirone 10 mg tablet 10 mg PO TID #270 tab 05/07/21 10/24/21 Rx famotidine 20 mg tablet 20 mg PO BID #180 tab 05/07/21 10/24/21 Rx lisinopril 10 mg tablet 10 mg PO QAM #90 tab 05/07/21 10/24/21 Rx metformin 500 mg tablet 1,000 mg PO BID #120 tab 05/07/21 10/24/21 Rx pantoprazole 40 mg tablet,delayed 40 mg PO BID #60 tab 05/07/21 10/24/21 Rx release ondansetron HCl 4 mg tablet 4 mg PO Q8H PRN #30 tab 06/24/21 10/24/21 Rx flash glucose scanning reader 06/26/21 10/24/21 History (FreeStyle Renan 2 [place]) flash glucose sensor (FreeStyle 06/26/21 10/24/21 History Renan 2 Sensor) Gvoke HypoPen 2-Pack 1 mg/0.2 mL 1 mg SUBCUT .COMPLEX #0.4 ml NS 06/27/21 10/24/21 Rx subcutaneous auto-injector (glucagon) blood sugar diagnostic (OneTouch #200 ea 08/14/21 10/24/21 Rx Verio test strips) carvedilol 6.25 mg tablet 6.25 mg PO BID #180 tab 08/19/21 10/24/21 Rx duloxetine 30 mg capsule,delayed 30 mg PO QAM #90 cap 08/19/21 10/24/21 Rx release isosorbide mononitrate 30 mg 60 mg PO QAM #180 tab 08/19/21 10/24/21 Rx tablet,extended release 24 hr chlorthalidone 25 mg tablet 25 mg PO DAILY #30 tab 08/26/21 10/24/21 Rx aspirin 81 mg tablet,delayed 81 mg PO QAM 10/24/21 10/24/21 History release Patient History Medical History (Updated 10/27/21 @ 15:28 by Suzi Bloom PA-C) Mckoen esophagus CAD (coronary artery disease) s/p stents to RCA November 2005; s/p stents to LAD, LCx in January 2006; s/p stents to RCA in 08/2006 Cervical pain (neck) Chest pain Chronic pain syndrome Depression Diabetes mellitus, type 2 IDDM Diabetic gastroparesis Diabetic peripheral neuropathy Dyslipidemia GERD without esophagitis HTN (hypertension) IBS (irritable bowel syndrome) Lumbar spondylosis Migraine headache Myocardial Infarction [place]- November 2005, January 2006, Aug 2006 3 total within an 8 month span--HX OF CATH 2012 [facility] [place], FOLLOWS WITH DR. JULES Non-ST elevation (NSTEMI) myocardial infarction Obesity Sprain of left foot Vitamin D deficiency Surgical History History of cardiac cath last 2012 @ [facility] [place], no stents--s/p stents to RCA November 2005; s/p stents to LAD, LCx in January 2006; s/p stents to RCA in 08/2006 History of cataract surgery BL History of cholecystectomy History of colonoscopy with polypectomy History of esophageal dilatation History of esophagogastroduodenoscopy (EGD) History of lumbar spinal fusion History of tooth extraction all teeth History of total hysterectomy with bilateral salpingo-oophorectomy (BSO) History of total right knee replacement (TKR) S/P coronary artery stent placement s/p stents to RCA November 2005; s/p stents to LAD, LCx in January 2006; s/p stents to RCA in 08/2006 Status post trigger finger release right thumb Family History Brother Myocardial infarction Anxiety Heart disease Hypertension Cancer Sister Family history of reaction to anesthesia difficulty waking Hypertension Heart disease Myocardial infarction Anxiety Cancer Diabetes Father Anxiety Heart disease Hypertension Mother Anxiety Hypertension Heart disease Unknown Cancer skin, GI Denies family history of Ovarian cancer Prostate cancer Breast cancer Colorectal cancer Stroke Social History Smoking Status: Former smoker Tobacco Type: Cigarettes Age Started Using Tobacco: 18; Age Quit Using Tobacco: 22; Cigarettes Per Day: 3 cigarettes a week; Smoking End Date: 1960s; Second Hand Exposure: No; Do You Dip or Chew Tobacco: No; Tobacco Cessation Education Requested by Patient: No Hx Alcohol Use: No Hx Substance Use: No Preferred Language: Congolese Communication Ability: Effective Visual Impairment: Limited Hearing Ability: Normal Process Control Manager Required: No Beliefs That Will Affect Care: None marital status: / Current Living Situation: Alone current occupational status: retired and disabled How many Children do You have: 3 Other Information That Helps Us Care for You: No Feels Safe at Home: Yes Safety Concerns: Feels Safe At This Time Childhood Exposure to Second-Hand Smoke: No caffeine: Yes (drinks coffee, diet pepsi occasionally ) Dental Care, Regularly: No Physical Activity Frequency: Does not Exercise Seatbelt Use: always Sunscreen Use: No Assistive Devices: Denture - Upper and Glasses Review of Systems Review of Systems: All systems reviewed & are unremarkable except as noted in Subjective Physical Exam Constitutional: WD/WN, vitals as above wears corrective lenses Eyes: PERRL, conjunctivae normal, anicteric sclerae ENMT: external ear and nose normal, oropharynx normal Respiratory: normal respiratory effort, lungs clear to auscultation Cardiovascular: RRR, no murmur, no edema Gastrointestinal (Abdomen): normal bowel sounds, soft, nontender, no hepatosplenomegaly Musculoskeletal: no cyanosis or clubbing, extremities motor strength 5/5 Neurologic: PERRL, EOMI, accommodation nl, no face palsy, no dysarthria Psychiatric: A+Ox3, euthymic affect Results & Data ([facility]) Vital Signs (Past 12 Hours) Vital Signs Temp Pulse Pulse Pulse Resp BP Pulse Ox 10/27/21 07:36 61 10/27/21 07:30 36.6 C 74 16 136/84 98 10/27/21 04:12 36.7 C 95 H 18 110/67 95 10/26/21 22:34 36.9 C 81 18 131/80 95 Laboratory Results Laboratory Results - last 24 hr 10/26/21 10/26/21 10/26/21 11:32 16:33 18:00 WBC RBC Hgb Hct MCV MCH MCHC RDW Std Deviation RDW Coeff of Tino Plt Count MPV Sodium Potassium Chloride Carbon Dioxide Anion Gap BUN Creatinine Est Cr Clr Drug Dosing Est GFR ( Amer) Est GFR (Non-Af Amer) BUN/Creatinine Ratio Glucose POC Glucose 161 H 160 H Calcium Magnesium Urine Color Dark Yellow Urine Appearance Cloudy A Urine pH 5.0 Ur Specific [place] > 1.045 H Urine Protein Trace H Urine Glucose (UA) 3+ H Urine Ketones Negative Urine Blood Negative Urine Nitrite Negative Urine Bilirubin Negative Urine Urobilinogen Negative Ur Leukocyte Esterase 1+ H Urine WBC (Auto) >30 H Urine RBC (Auto) 5-10 H U Hyaline Cast (Auto) 1-5 U Epithel Cells (Auto) >30 H Urine Bacteria (Auto) 1+ H Urine Yeast Not Reportable 10/26/21 10/27/21 10/27/21 19:36 07:04 07:04 WBC 5.62 RBC 4.29 Hgb 11.9 L Hct 36.2 L MCV 84.4 MCH 27.7 MCHC 32.9 RDW Std Deviation 42.9 RDW Coeff of Tino 14.2 Plt Count 249 MPV 10.0 Sodium 137 Potassium 4.2 Chloride 108 H Carbon Dioxide 24 Anion Gap 5 BUN 19 Creatinine 0.88 D Est Cr Clr Drug Dosing 60.6 Est GFR ( Amer) 75.0 Est GFR (Non-Af Amer) 64.7 BUN/Creatinine Ratio 21.6 H Glucose 77 POC Glucose 164 H Calcium 7.9 L Magnesium 2.2 Urine Color Urine Appearance Urine pH Ur Specific [place] Urine Protein Urine Glucose (UA) Urine Ketones Urine Blood Urine Nitrite Urine Bilirubin Urine Urobilinogen Ur Leukocyte Esterase Urine WBC (Auto) Urine RBC (Auto) U Hyaline Cast (Auto) U Epithel Cells (Auto) Urine Bacteria (Auto) Urine Yeast 10/27/21 07:43 WBC RBC Hgb Hct MCV MCH MCHC RDW Std Deviation RDW Coeff of Tino Plt Count MPV Sodium Potassium Chloride Carbon Dioxide Anion Gap BUN Creatinine Est Cr Clr Drug Dosing Est GFR ( Amer) Est GFR (Non-Af Amer) BUN/Creatinine Ratio Glucose POC Glucose 85 Calcium Magnesium Urine Color Urine Appearance Urine pH Ur Specific [place] Urine Protein Urine Glucose (UA) Urine Ketones Urine Blood Urine Nitrite Urine Bilirubin Urine Urobilinogen Ur Leukocyte Esterase Urine WBC (Auto) Urine RBC (Auto) U Hyaline Cast (Auto) U Epithel Cells (Auto) Urine Bacteria (Auto) Urine Yeast Diagnostic Findings Knee X-Ray 10/26/21 07:42 XR knee LT 3V HISTORY: 76 years-old Female fall, knees gave out acute left knee pain status post fall COMPARISON: 09/20/2019 TECHNIQUE: 3 views of the left knee FINDINGS: Mild lateral with moderate medial and patellofemoral compartment osteoarthritis. Marginal spurring of the tibial spines. No acute fracture, dislocation or large joint effusion. IMPRESSION: 1. No acute fracture or dislocation. 2. Moderate medial and patellofemoral compartment osteoarthritis. ACT 112: Negative or not required by law. The above report was generated using voice recognition software. It may contain grammatical, syntax or spelling errors. Electronically signed by: Jordan Vee M.D. 10/26/2021 9:18 AM (1) GERD (gastroesophageal reflux disease) Esophagitis presence: without esophagitis Qualified Code(s): K21.9 - Gastro- esophageal reflux disease without esophagitis
[2021-10-27] MEDS: INSULIN GLARGINE SOLOSTAR 100 UNITS/ML 3 ML PEN SC SCH ×2 (09:09→20:50)
--- NOTE | 2021-10-27 15:35 | Hospitalist Progress Note ---
Date of Service October 27, 2021 Assessment & Plan (1) Fall: Plan: - Mechanical fall due to give way of the knee, neither syncope nor arrhythmia suspected. Did hit her head but no LOC reported. Hx DM, A1c 12.6 -- reports BSGs at home can be 200-300s with symptoms higher of weakness/dizziness/fatigue and in 300s on admission. Per PCP note Jun 2021, patient had been going low in late afternoon/prior to dinner. ?if similar incident - Reported pain to L ankle, severe back pain, headache -- pain improving - Imaging -- CT Head negative. CXR negative. X ray L foot -- no evidence for acute isrrael injury. X ray L forearm -- no acute bony injury. CT Pelvis without acute f x -- CT Lumbar Spine 1. Osteopenia with no acute abnormality. 2. 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 -- Xray L ankle -> Soft tissue swelling within the left ankle, no fractures -- Xray L knee -> Moderate medial and patellofemoral compartment osteoarthritis. NO FRACTURE - Ortho following - conservative management with walking boot x 4 weeks for L ankle sprain; stockings to control swelling - follow-up in office with Dr. Sanders - Ordered topical voltaren to avoid NSAIDs in patient with hx erosive esophagitis on dual acid therapy - Orthotics consulted - PT/OT Back Pain: - Severe lower back with R>L but no rediculopathy - Continue Lidocaine, Tyelnol, Oxycodone PRN (2) Anemia: Plan: - Normocytic; suspect some from hemoconcentration on admission - Hgb did drop into 10s from 13 -- but trending up at 11.9 currently - Fecal occult negative on 10/25 but positive today but was noted to have BRBPR so would expect this to be positive - with vitals stable and Hgb trending up no urgent need for further evaluation at this time; will monitor Hgb - Iron levels 23 with trans % sat 10; Venofer given on 10/25 and 10/26 - B12 - low normal at 220 - IM replacement while here - Folate low normal - po replacement while inpatient (3) Elevated troponin: Plan: - Mildly elevated troponin at 0.16 on admission, slight bump on repeat but improving after venofer. No symptoms, ?2nd to demand -- ?2nd to demand/anemia from iron deficiency/low normal B12. No CP/SOB reported - Does have hx stents to RCA/LAD - Venofer replacement as above (4) DM w/o complication type II, uncontrolled: Plan: - A1c 12.4 - Continue basal bolus insulin, hold home metformin -- Had some low BSGs today but improved -->Rec'd F/U with endocrine at discharge given uncontrolled (had been in 8-9s last year) (5) HTN (hypertension): Plan: - Blood pressures mildly elevated on admission but HYPOTENSIVE 10/25 -- got additional BP meds on admission -- Orthostatics negative - Currently, holding carvedilol, lisinopril, chlorthalidone (6) CAD (coronary artery disease): Plan: - With history of stents RCA and LAD in 2005 2006 * [place] [facility] [place]. NSTEMI 11/2005 --> At that time underwent sequential RCA stents. Later due to unstable angina underwent LAD and left circumflex stents in 2005. - ECHO obtained given + troponin/hypotension --> no change from prior . See below regarding anemia. No CP/SOB reported - Continue home rosuvastatin and ASA (Carvedilol, Lisinopril, Isosorbide on hold due to low BP previously - likely can resume tomorrow) - No CP reported (as prior to previous MIs), troponin trended as above, replacement of iron as outlined - Continue Isosorbide - Monitor on telemetry while holding her BP medications/hypotension resolving -- if stable tomorrow likely to medical floor (7) GERD (gastroesophageal reflux disease): Plan: - Hx nix's esophagus --> 1. Mild circumferential thickening of the distal esophagus, unchanged. This favors a chronic esophagitis. Follow-up nonemergent endoscopy can be performed for further evaluation. 2. No evidence for bowel obstruction. 3. Postoperative changes as described above. - Continue Pepcid and Protonix -- Having worsening heartburn symptoms last few weeks -- states improvement after having BM as well - Maalox as needed - Also had some BRBPR on 10/27 and reports H/O hemorrhoids -- stool was heme+ as would be expected; Hgb is stable and vitals stable - will monitor - GI consultation - plans for outpatient F/U for monitoring/testing. Continue current regimen -- completed Diflucan x 10 days per report however patient doesn't think she may have been given this in the past -- Recent EGD after last admission with Nix's, multiple fragments of benign mildly inflamed gastric mucosa with focal intestinal metaplasia seen. Severe grade D esophagitis reportedly resolved with use of high dose PPI BID and famotidine (patient reports she has been taking these regularly) (8) Hypomagnesemia: Plan: - Likely due to poor p.o. intake recently, PPI use. - Reported cramping in legs/hands recently -- will also check B12 and replacement as above - Could consider supplementation (9) Abrasion: Plan: - Left forearm; local wound care (10) Diabetic neuropathy: Plan: - Continue duloxetine - B12 low normal and will give IM while inpatient, continue PO at D/C (11) Depression: Plan: - Depression/Anxiety - Continue Duloxetine; Buspar (12) Diabetic gastroparesis: Plan: - Noted - Encouraging small/frequent meals, bowel regimen -- having regular BMs currently (13) Obesity (BMI 30.0-34.9): Plan: - BMI 36; noted (14) Vitamin D deficiency: Plan: - Vit 28.2 Apr 2019, continued on vitamin D supplementation (15) Dyslipidemia: Plan: - Continue rosuvastatin and Zetia; Hold home omega-3 (16) Sprain of left foot: Plan: - As above; outpatient F/U (17) Asymptomatic bacteriuria: Plan: Urinalysis shows greater than 30 WBCs and greater than 30 epithelial cells, 1+ bacteria, negative nitrate-is a contaminated sample She is asymptomatic with regard to urinary symptoms Urine culture growing mixed organisms No treatment necessary Plan: DVT prophylaxis Lovenox, SCDs while inpatient DNR/DNI as per discussion with patient. Her friend, Franck Ortega, is her main point of contact although he does not have a legal power of title attorney. She does have a sister and a daughter who could also be involved in her care but she wishes for Franck to be her main decision maker in the event she is not able to make decisions. Dipso: PT/OT consulted, pending (orthotics not yet delivered) --> Suspect will need rehab at D/C. CM to follow Admission and Anticipated Discharge Date Admission Date: October 24, 2021 Supervising Physician Co-Signing Physician Notes PA Supervision Note: I did not personally see or examine the patient today, but I verified all hathaway points of JAVI Bloom's assessment and plan with the following exceptions/additions: None Subjective No acute events overnight. Reports feeling well. Some pain in the ankle but reports tolerable at rest. BP much improved today and no dizziness. She did have some BRBPR and reports H/O hemorrhoids. Hgb is stable at this time. GI to follow-up as outpatient. UA with some bacteria however endorses no urinary symptoms. Awaiting walking boot. Is interested in rehab depending on how therapy goes. Review of Systems Review of Systems: All systems reviewed & are unremarkable except as noted in Subjective Physical Exam Physical Exam: PHYSICAL EXAM General Appearance: WDWN in NAD who is A&O x 3 HEENT: Head is normocephalic/atraumatic; Hearing grossly intact; Mucous membranes moist Neck: Supple; Trachea midline; Neg JVD Heart: RRR with no M/G/R Lungs: CTA in all lung peraza bilaterally; Respirations unlabored; Neg accessory muscle use Abdomen: Soft, non-tender, non-distended; Positive BS x 4 quadrants Extremities: Neg cyanosis; + edema L>R in ankle; mild tenderness to palp of L ankle Neurological: Speech clear; Gross motor/sensory function intact; Neg focal neurologic deficits Psychiatric: Appropriate mood/affect Skin: Normal Color; Warm/Dry; skin tear t the L forearm (reviewed imaging and new dressing was in place) Results & Data Results & Data ([facility]) Vital Signs (Past 12 Hours) Vital Signs Temp Pulse Pulse Pulse Resp BP Pulse Ox 10/27/21 14:25 84 10/27/21 10:47 36.8 C 88 17 124/76 96 10/27/21 07:36 61 10/27/21 07:30 36.6 C 74 16 136/84 98 10/27/21 04:12 36.7 C 95 H 18 110/67 95 PG Care Time/CCT Total # of Minutes Spent Total Time Spent with Patient: Total time spent is greater than 50% in coordination of care (as documented) at patient's floor/unit and/or counseling patient: Coding Level of Care Code 27256 Subseq Hosp Care Lvl 3 Diagnoses Fall W19.XXXA Anemia D64.9 Elevated troponin R77.8 DM w/o complication type II, uncontrolled E11.65 Glycemic state: with hyperglycemia HTN (hypertension) I10 CAD (coronary artery disease) I25.10 Associated angina: angina presence unspecified Coronary Disease-Associated Artery/Lesion type: [place] artery [place] vs. transplanted heart: [place] heart GERD (gastroesophageal reflux disease) K21.9 Esophagitis presence: without esophagitis Hypomagnesemia E83.42 Abrasion T14.8XXA Diabetic neuropathy E11.40 Depression F32.9 Diabetic gastroparesis E11.43; K31.84 Obesity (BMI 30.0-34.9) E66.9 Vitamin D deficiency E55.9 Dyslipidemia E78.5 Sprain of left foot S93.602A Asymptomatic bacteriuria R82.71 (1) CAD (coronary artery disease) Associated angina: angina presence unspecified Coronary Disease-Associated Artery/Lesion type: [place] artery [place] vs. transplanted heart: [place] heart Qualified Code(s): I25.10 - Atherosclerotic heart disease of [place] coronary artery without angina pectoris (2) DM w/o complication type II, uncontrolled Glycemic state: with hyperglycemia Qualified Code(s): E11.65 - Type 2 diabetes mellitus with hyperglycemia (3) GERD (gastroesophageal reflux disease) Esophagitis presence: without esophagitis Qualified Code(s): K21.9 - Gastro- esophageal reflux disease without esophagitis
[2021-10-27] MEDS: ENOXAPARIN INJ 40 MG/0.4 ML SYR SQ SCH (20:47)
[2021-10-28] MEDS: ACETAMINOPHEN 500 MG TAB PO SCH ×3 (06:28→20:23)
[2021-10-28] MEDS: DICLOFENAC SOD 1% GEL 100 GM TUBE EXT SCH ×4 (08:08→20:22)
[2021-10-28] MEDS: LIDOCAINE 5% 1 PATCH TD SCH (08:09)
[2021-10-28] MEDS: ASPIRIN 81 MG ECTAB PO SCH (08:09)
[2021-10-28] MEDS: PANTOprazole 40 MG TAB PO SCH ×2 (08:10→20:20)
[2021-10-28] MEDS: ROSUVASTATIN CALCIUM 20 MG TAB PO SCH (08:10)
[2021-10-28] MEDS: ISOSORBIDE MONO EXTENDED REL 60 MG TABCR PO SCH (08:10)
[2021-10-28] MEDS: DULoxetine HCL 30 MG CAP PO SCH (08:10)
[2021-10-28] MEDS: EZETIMIBE 10 MG TABLET PO SCH (08:10)
[2021-10-28] MEDS: FOLIC ACID 400 MCG TAB PO SCH (08:10)
[2021-10-28] MEDS: CHOLECALCIFEROL 1,000 UNITS 25 MCG TAB PO SCH (08:10)
[2021-10-28] MEDS: FAMOTIDINE 20 MG TAB PO SCH ×2 (08:10→20:20)
[2021-10-28] MEDS: busPIRone 5 MG TAB PO SCH ×3 (08:11→20:18)
[2021-10-28] MEDS: INSULIN ASPART PER UNIT SC SCH ×4 (08:14→21:36)
[2021-10-28] MEDS: CYANOCOBALAMIN 1000 MCG/ML VIAL IM SCH (08:17)
--- NOTE | 2021-10-28 09:28 | Pharmacy Report ---
Pharmacy Glycemic Short Note 2 - Date of Service October 28, 2021 - Glycemic Short BSG Results (Last 24 hours): 10/27/21 10/27/21 10/27/21 11:54 16:30 20:03 POC Glucose 182 H 142 H 177 H 10/28/21 07:09 POC Glucose 78 OUTPATIENT ANTIDIABETIC REGIMEN: * Tresiba 15 units SQ AM, 33 units HS * Novolog 5 units with breakfast and lunch; 10 units with dinner ASSESSMENT: 10/28/21 * Claire received 70 units of insulin yesterday (43 units basal + 27 units bolus) * Fasting BSG is below goal. Will hold AM Lantus dose, which is equivalent to ~23% dose reduction. May resume BID dosing tomorrow. * Post prandial BSGs are trending upwards compared to previous days. Will slightly tighten carb coverage 10/26/21 * Patient received 99 units of insulin yesterday, 58 units basal, 41 units bolus * Patient's BSGs much better controlled yesterday since pharmacy consulted, [phone]/dl, but patient is hypoglycemic this AM, 61mg/dl * Reduce AM basal (extra was given yesterday) and loosen CF/CR to prevent further hypoglycemia 10/25/21 * 76 year old uncontrolled type 2 DM , A1c 12.4% on basal bolus insulin at home, admitted for fall/hurt knee, ortho consult. * Blood sugars in 300s since admission yesterday, d/t insufficient basal and bolus insulin, tighten CF/CR and give supplemental AM basal dose this morning. * Blood sugar now at goal 110mg/dl pre-lunch after extra NovoLog and Lantus this AM. PLAN FOR INPATIENT GLYCEMIC CONTROL: * Basal insulin * 10/28/21: Hold AM Lantus, Give Lantus 33 units SQ with dinner * 10/29/21: Lantus 8 units SQ AM, Lantus 28 units HS * Bolus insulin * NovoLog per scale ACHS or Q6hrs while NPO * Goal Range: Low 110 mg/dL - High 140 mg/dL * Correction Factor: 25 mg/dL/unit * Nutritional / Prandial insulin per carb ratio of 1 unit per 7 grams CHO consumed
--- NOTE | 2021-10-28 11:49 | Hospitalist Progress Note ---
Date of Service October 28, 2021 Assessment & Plan (1) Fall: Plan: - Mechanical fall due to give way of the knee, neither syncope nor arrhythmia suspected. Did hit her head but no LOC reported. Hx DM, A1c 12.6 -- reports BSGs at home can be 200-300s with symptoms higher of weakness/dizziness/fatigue and in 300s on admission. Per PCP note Jun 2021, patient had been going low in late afternoon/prior to dinner. ?if similar incident - Reported pain to L ankle, severe back pain, headache -- pain improving - Imaging -- CT Head negative. CXR negative. X ray L foot -- no evidence for acute isrrael injury. X ray L forearm -- no acute bony injury. CT Pelvis without acute f x -- CT Lumbar Spine 1. Osteopenia with no acute abnormality. 2. 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 -- Xray L ankle -> Soft tissue swelling within the left ankle, no fractures -- Xray L knee -> Moderate medial and patellofemoral compartment osteoarthritis. NO FRACTURE - Ortho following - conservative management with walking boot x 4 weeks for L ankle sprain; stockings to control swelling - follow-up in office with Dr. Sanders - Ordered topical voltaren to avoid NSAIDs in patient with hx erosive esophagitis on dual acid therapy - Orthotics consulted - PT/OT Back Pain: - IMPROVING; Severe lower back with R>L but no rediculopathy - Continue Lidocaine, Tylenol, Oxycodone PRN (2) Anemia: Plan: - Normocytic; suspect some from hemoconcentration on admission - Hgb did drop into 10s from 13 -- but trending up at 11.9 currently - Fecal occult negative on 10/25 but positive today but was noted to have BRBPR so would expect this to be positive - with vitals stable and Hgb trending up no urgent need for further evaluation at this time; will monitor Hgb - Iron levels 23 with trans % sat 10; Venofer given on 10/25 and 10/26 - B12 - low normal at 220 - IM replacement while here - Folate low normal - po replacement while inpatient (3) Elevated troponin: Plan: - Mildly elevated troponin at 0.16 on admission, slight bump on repeat but improving after venofer. No symptoms, ?2nd to demand -- ?2nd to demand/anemia from iron deficiency/low normal B12. No CP/SOB reported - Does have hx stents to RCA/LAD - Venofer replacement as above (4) DM w/o complication type II, uncontrolled: Plan: - A1c 12.4 - Continue basal bolus insulin, hold home metformin -- Had some low BSGs today but improved -->Rec'd F/U with endocrine at discharge given uncontrolled (had been in 8-9s last year) (5) HTN (hypertension): Plan: - Blood pressures mildly elevated on admission but HYPOTENSIVE 10/25 now normotensive-- got additional BP meds on admission -- Orthostatics negative - Continue Carvedilol and Lisinopril; hold Chlorthalidone for now (6) CAD (coronary artery disease): Plan: - With history of stents RCA and LAD in 2005 2006 * [place] [facility] [place]. NSTEMI 11/2005 --> At that time underwent sequential RCA stents. Later due to unstable angina underwent LAD and left circumflex stents in 2005. - ECHO obtained given + troponin/hypotension --> no change from prior . See below regarding anemia. No CP/SOB reported - Continue home rosuvastatin and ASA (Carvedilol, Lisinopril, Isosorbide on hold due to low BP previously - likely can resume tomorrow) - No CP reported (as prior to previous MIs), troponin trended as above, replacement of iron as outlined - Continue Isosorbide (7) GERD (gastroesophageal reflux disease): Plan: - Hx nix's esophagus --> 1. Mild circumferential thickening of the distal esophagus, unchanged. This favors a chronic esophagitis. Follow-up nonemergent endoscopy can be performed for further evaluation. 2. No evidence for bowel obstruction. 3. Postoperative changes as described above. - Continue Pepcid and Protonix -- Having worsening heartburn symptoms last few weeks -- states improvement after having BM as well - Maalox as needed - Also had some BRBPR on 10/27 and reports H/O hemorrhoids -- stool was heme+ as would be expected; Hgb is stable and vitals stable - will monitor - GI consultation - plans for outpatient F/U for monitoring/testing. Continue current regimen -- completed Diflucan x 10 days per report however patient doesn't think she may have been given this in the past -- Recent EGD after last admission with Nix's, multiple fragments of benign mildly inflamed gastric mucosa with focal intestinal metaplasia seen. Severe grade D esophagitis reportedly resolved with use of high dose PPI BID and famotidine (patient reports she has been taking these regularly) (8) Hypomagnesemia: Plan: - Likely due to poor p.o. intake recently, PPI use. - Reported cramping in legs/hands recently -- will also check B12 and replacement as above - Could consider supplementation (9) Abrasion: Plan: - Left forearm; local wound care (10) Diabetic neuropathy: Plan: - Continue duloxetine - B12 low normal and will give IM while inpatient, continue PO at D/C (11) Depression: Plan: - Depression/Anxiety - Continue Duloxetine; Buspar (12) Diabetic gastroparesis: Plan: - Noted - Encouraging small/frequent meals, bowel regimen -- having regular BMs currently (13) Obesity (BMI 30.0-34.9): Plan: - BMI 36; noted (14) Vitamin D deficiency: Plan: - Vit 28.2 Apr 2019, continued on vitamin D supplementation (15) Dyslipidemia: Plan: - Continue rosuvastatin and Zetia; Hold home omega-3 (16) Sprain of left foot: Plan: - As above; outpatient F/U (17) Asymptomatic bacteriuria: Plan: Urinalysis shows greater than 30 WBCs and greater than 30 epithelial cells, 1+ bacteria, negative nitrate-is a contaminated sample She is asymptomatic with regard to urinary symptoms Urine culture growing mixed organisms No treatment necessary Plan: DVT prophylaxis Lovenox, SCDs while inpatient DNR/DNI as per discussion with patient. Her friend, Franck Ortega, is her main point of contact although he does not have a legal power of health care attorney. She does have a sister and a daughter who could also be involved in her care but she wishes for Franck to be her main decision m abbi in the event she is not able to make decisions. Dipso: PT/OT consulted, Referral to [facility] Admission and Anticipated Discharge Date Admission Date: October 24, 2021 Subjective No acute events overnight. Reports the walking boot is helping with her mobility and looking forward to working with therapy. Reports swelling is improving some but still present. Has been elevating her leg when in bed. Tolerating diet without issue. Interested in going to [facility] for rehab. Review of Systems Review of Systems: All systems reviewed & are unremarkable except as noted in Subjective Physical Exam Physical Exam: PHYSICAL EXAM General Appearance: WDWN in NAD who is A&O x 3 HEENT: Head is normocephalic/atraumatic; Hearing grossly intact; Mucous membranes moist Neck: Supple; Trachea midline; Neg JVD Heart: RRR with no M/G/R Lungs: CTA in all lung peraza bilaterally; Respirations unlabored; Neg accessory muscle use Abdomen: Soft, non-tender, non-distended; Positive BS x 4 quadrants Extremities: Neg cyanosis; + edema L>R in ankle; mild tenderness to palp of L ankle Neurological: Speech clear; Gross motor/sensory function intact; Neg focal neurologic deficits Psychiatric: Appropriate mood/affect Skin: Normal Color; Warm/Dry; skin tear to the L forearm (reviewed imaging and new dressing was in place) Results & Data Results & Data ([facility]) Vital Signs (Past 12 Hours) Vital Signs Temp Pulse Pulse Resp BP BP Pulse Ox 10/28/21 09:26 77 10/28/21 07:37 36.8 C 81 20 148/87 H 95 10/28/21 02:10 37.0 C 88 18 136/78 96 PG Care Time/CCT Total # of Minutes Spent Total Time Spent with Patient: Total time spent is greater than 50% in coordination of care (as documented) at patient's floor/unit and/or counseling patient: Coding Level of Care Code 76940 Subseq Hosp Care Lvl 2 Diagnoses Fall W19.XXXA Anemia D64.9 Elevated troponin R77.8 DM w/o complication type II, uncontrolled E11.65 Glycemic state: with hyperglycemia HTN (hypertension) I10 CAD (coronary artery disease) I25.10 Coronary Disease-Associated Artery/Lesion type: [place] artery [place] vs. transplanted heart: [place] heart Associated angina: angina presence unspecified GERD (gastroesophageal reflux disease) K21.9 Esophagitis presence: without esophagitis Hypomagnesemia E83.42 Abrasion T14.8XXA Diabetic neuropathy E11.40 Depression F32.9 Diabetic gastroparesis E11.43; K31.84 Obesity (BMI 30.0-34.9) E66.9 Vitamin D deficiency E55.9 Dyslipidemia E78.5 Sprain of left foot S93.602A Asymptomatic bacteriuria R82.71 (1) DM w/o complication type II, uncontrolled Glycemic state: with hyperglycemia Qualified Code(s): E11.65 - Type 2 diabetes mellitus with hyperglycemia (2) CAD (coronary artery disease) Coronary Disease-Associated Artery/Lesion type: [place] artery [place] vs. transplanted heart: [place] heart Associated angina: angina presence unspecified Qualified Code(s): I25.10 - Atherosclerotic heart disease of [place] coronary artery without angina pectoris (3) GERD (gastroesophageal reflux disease) Esophagitis presence: without esophagitis Qualified Code(s): K21.9 - Gastro- esophageal reflux disease without esophagitis
[2021-10-28] MEDS: INSULIN GLARGINE SOLOSTAR 100 UNITS/ML 3 ML PEN SC SCH (17:43)
[2021-10-28] MEDS: ENOXAPARIN INJ 40 MG/0.4 ML SYR SQ SCH (20:20)
[2021-10-28] MEDS: carvediloL 6.25 MG TAB PO SCH (21:36)
[2021-10-29] MEDS: ACETAMINOPHEN 500 MG TAB PO SCH ×2 (06:52→13:48)
[2021-10-29] MEDS: DICLOFENAC SOD 1% GEL 100 GM TUBE EXT SCH ×4 (08:00→20:15)
[2021-10-29] MEDS: ROSUVASTATIN CALCIUM 20 MG TAB PO SCH (08:06)
[2021-10-29] MEDS: carvediloL 6.25 MG TAB PO SCH ×2 (08:06→20:16)
[2021-10-29] MEDS: PANTOprazole 40 MG TAB PO SCH ×2 (08:06→20:16)
[2021-10-29] MEDS: busPIRone 5 MG TAB PO SCH ×3 (08:06→20:16)
[2021-10-29] MEDS: FAMOTIDINE 20 MG TAB PO SCH ×2 (08:06→20:16)
[2021-10-29] MEDS: EZETIMIBE 10 MG TABLET PO SCH (08:07)
[2021-10-29] MEDS: CHOLECALCIFEROL 1,000 UNITS 25 MCG TAB PO SCH (08:07)
[2021-10-29] MEDS: DULoxetine HCL 30 MG CAP PO SCH (08:07)
[2021-10-29] MEDS: lisinopril 10 MG TAB PO SCH (08:08)
[2021-10-29] MEDS: INSULIN GLARGINE SOLOSTAR 100 UNITS/ML 3 ML PEN SC SCH (08:08)
[2021-10-29] MEDS: FOLIC ACID 400 MCG TAB PO SCH (08:08)
[2021-10-29] MEDS: ISOSORBIDE MONO EXTENDED REL 60 MG TABCR PO SCH (08:08)
[2021-10-29] MEDS: ASPIRIN 81 MG ECTAB PO SCH (08:08)
[2021-10-29] MEDS: INSULIN ASPART PER UNIT SC SCH ×4 (08:09→20:29)
[2021-10-29] MEDS: LIDOCAINE 5% 1 PATCH TD SCH (08:09)
[2021-10-29] MEDS: oxyCODONE HCL IR 5 MG TAB (IMMEDIATE RELEASE) PO PRN (08:33)
[2021-10-29] MEDS: CYANOCOBALAMIN 1000 MCG/ML VIAL IM SCH (09:18)
--- NOTE | 2021-10-29 11:03 | Pharmacy Report ---
Pharmacy Glycemic Short Note 2 - Date of Service October 29, 2021 - Glycemic Short BSG Results (Last 24 hours): 10/28/21 10/28/21 10/28/21 11:52 16:43 20:30 POC Glucose 211 H 215 H 195 H 10/29/21 07:11 POC Glucose 97 OUTPATIENT ANTIDIABETIC REGIMEN: * Tresiba 15 units SQ AM, 33 units HS * Novolog 5 units with breakfast and lunch; 10 units with dinner ASSESSMENT: 10/29/21 * Stressors stable * AM fasting BSG trended up after dose reduction yesterday, but is still below goal. Will resume BID dosing (similar to outpt regimen), but will decrease slightly * Post-prandial BSG's elevated yesterday, but slightly more Lantus will be on board today with dose this AM. May consider tightening CHO ratio if lunch BSG rises significantly 10/28/21 * Claire received 70 units of insulin yesterday (43 units basal + 27 units bolus) * Fasting BSG is below goal. Will hold AM Lantus dose, which is equivalent to ~23% dose reduction. May resume BID dosing tomorrow. * Post prandial BSGs are trending upwards compared to previous days. Will slightly tighten carb coverage 10/26/21 * Patient received 99 units of insulin yesterday, 58 units basal, 41 units bolus * Patient's BSGs much better controlled yesterday since pharmacy consulted, [phone]/dl, but patient is hypoglycemic this AM, 61mg/dl * Reduce AM basal (extra was given yesterday) and loosen CF/CR to prevent further hypoglycemia 10/25/21 * 76 year old uncontrolled type 2 DM , A1c 12.4% on basal bolus insulin at home, admitted for fall/hurt knee, ortho consult. * Blood sugars in 300s since admission yesterday, d/t insufficient basal and bolus insulin, tighten CF/CR and give supplemental AM basal dose this morning. * Blood sugar now at goal 110mg/dl pre-lunch after extra NovoLog and Lantus this AM. PLAN FOR INPATIENT GLYCEMIC CONTROL: * Basal insulin * Lantus 8 units SQ AM, Lantus 20 units HS * Bolus insulin * NovoLog per scale ACHS or Q6hrs while NPO * Goal Range: Low 110 mg/dL - High 140 mg/dL * Correction Factor: 25 mg/dL/unit * Nutritional / Prandial insulin per carb ratio of 1 unit per 7 grams CHO consumed
--- NOTE | 2021-10-29 16:34 | Hospitalist Progress Note ---
Date of Service October 29, 2021 Assessment & Plan (1) Fall: Plan: - Mechanical fall due to give way of the knee, neither syncope nor arrhythmia suspected. Did hit her head but no LOC reported. Hx DM, A1c 12.6 -- reports BSGs at home can be 200-300s with symptoms higher of weakness/dizziness/fatigue and in 300s on admission. Per PCP note Jun 2021, patient had been going low in late afternoon/prior to dinner. ?if similar incident - Reported pain to L ankle, severe back pain, headache -- pain improving - Imaging -- CT Head negative. CXR negative. X ray L foot -- no evidence for acute isrrael injury. X ray L forearm -- no acute bony injury. CT Pelvis without acute f x -- CT Lumbar Spine 1. Osteopenia with no acute abnormality. 2. 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 -- Xray L ankle -> Soft tissue swelling within the left ankle, no fractures -- Xray L knee -> Moderate medial and patellofemoral compartment osteoarthritis. NO FRACTURE - Ortho following - conservative management with walking boot x 4 weeks for L ankle sprain; stockings to control swelling - follow-up in office with Dr. Sanders - Ordered topical voltaren to avoid NSAIDs in patient with hx erosive esophagitis on dual acid therapy - Orthotics consulted - PT/OT Back Pain: - RESOLVED - Continue Lidocaine, Tylenol, Oxycodone PRN (2) Anemia: Plan: - Normocytic; suspect some from hemoconcentration on admission - Hgb did drop into 10s from 13 -- but trending up at 11.9 currently - Fecal occult negative on 10/25 but positive today but was noted to have BRBPR so would expect this to be positive - with vitals stable and Hgb trending up no urgent need for further evaluation at this time; will monitor Hgb - Iron levels 23 with trans % sat 10; Venofer given on 10/25 and 10/26 - B12 - low normal at 220 - IM replacement while here - Folate low normal - po replacement while inpatient (3) Elevated troponin: Plan: - Mildly elevated troponin at 0.16 on admission, slight bump on repeat but improving after venofer. No symptoms, ?2nd to demand -- ?2nd to demand/anemia from iron deficiency/low normal B12. No CP/SOB reported - Does have hx stents to RCA/LAD - Venofer replacement as above (4) DM w/o complication type II, uncontrolled: Plan: - A1c 12.4 - Continue basal bolus insulin, hold home metformin -->Rec'd F/U with endocrine at discharge given uncontrolled (had been in 8-9s last year) (5) HTN (hypertension): Plan: - Blood pressures mildly elevated on admission but HYPOTENSIVE 10/25 now normotensive-- got additional BP meds on admission -- Orthostatics negative - Continue Carvedilol and Lisinopril; hold Chlorthalidone for now (6) CAD (coronary artery disease): Plan: - With history of stents RCA and LAD in 2005 2006 * Follows routinely with [facility] cardiology. NSTEMI 11/2005 --> At that time underwent sequential RCA stents. Later due to unstable angina underwent LAD and left circumflex stents in 2005. - ECHO obtained given + troponin/hypotension --> no change from prior . See below regarding anemia. No CP/SOB reported - Continue home rosuvastatin and ASA (Carvedilol, Lisinopril, Isosorbide on hold due to low BP previously - likely can resume tomorrow) - No CP reported (as prior to previous MIs), troponin trended as above, replacement of iron as outlined - Continue Isosorbide (7) GERD (gastroesophageal reflux disease): Plan: - Hx nix's esophagus --> 1. Mild circumferential thickening of the distal esophagus, unchanged. This favors a chronic esophagitis. Follow-up nonemergent endoscopy can be performed for further evaluation. 2. No evidence for bowel obstruction. 3. Postoperative changes as described above. - Continue Pepcid and Protonix -- Having worsening heartburn symptoms last few weeks -- states improvement after having BM as well - Maalox as needed - Also had some BRBPR on 10/27 and reports H/O hemorrhoids -- stool was heme+ as would be expected; Hgb is stable and vitals stable - will monitor - GI consultation - plans for outpatient F/U for monitoring/testing. Continue current regimen -- completed Diflucan x 10 days per report however patient doesn't think she may have been given this in the past -- Recent EGD after last admission with Nix's, multiple fragments of benign mildly inflamed gastric mucosa with focal intestinal metaplasia seen. Severe grade D esophagitis reportedly resolved with use of high dose PPI BID and famotidine (patient reports she has been taking these regularly) (8) Hypomagnesemia: Plan: - Likely due to poor p.o. intake recently, PPI use. - Reported cramping in legs/hands recently -- will also check B12 and replacement as above - Could consider supplementation (9) Abrasion: Plan: - Left forearm; local wound care (10) Diabetic neuropathy: Plan: - Continue duloxetine - B12 low normal and will give IM while inpatient, continue PO at D/C (11) Depression: Plan: - Depression/Anxiety - Continue Duloxetine; Buspar (12) Diabetic gastroparesis: Plan: - Noted - Encouraging small/frequent meals, bowel regimen -- having regular BMs currently (13) Obesity (BMI 30.0-34.9): Plan: - BMI 36; noted (14) Vitamin D deficiency: Plan: - Vit 28.2 Apr 2019, continued on vitamin D supplementation (15) Dyslipidemia: Plan: - Continue rosuvastatin and Zetia; Hold home omega-3 (16) Sprain of left foot: Plan: - As above; outpatient F/U (17) Asymptomatic bacteriuria: Plan: Urinalysis shows greater than 30 WBCs and greater than 30 epithelial cells, 1+ bacteria, negative nitrate-is a contaminated sample She is asymptomatic with regard to urinary symptoms Urine culture growing mixed organisms No treatment necessary Plan: DVT prophylaxis Lovenox, SCDs while inpatient DNR/DNI as per discussion with patient. Her friend, Franck Ortega, is her main point of contact although he does not have a legal power of litigation attorney. She does have a sister and a daughter who could also be involved in her care but she wishes for Franck to be her main decision maker in the event she is not able to make decisions. Dipso: PT/OT consulted, Possibly to [facility] tomorrow pending auth Admission and Anticipated Discharge Date Admission Date: October 24, 2021 Subjective No acute events overnight. Reports her pain is doing better today and the walking boot has helped a lot. She is still interested in rehab if her insurance approves. She is tolerating a diet without issue. Verbalizes no new complaints. Review of Systems Review of Systems: All systems reviewed & are unremarkable except as noted in Subjective Physical Exam Physical Exam: PHYSICAL EXAM General Appearance: WDWN in NAD who is A&O x 3 HEENT: Head is normocephalic/atraumatic; Hearing grossly intact; Mucous membranes moist Neck: Supple; Trachea midline; Neg JVD Heart: RRR with no M/G/R Lungs: CTA in all lung peraza bilaterally; Respirations unlabored; Neg accessory muscle use Abdomen: Soft, non-tender, non-distended; Positive BS x 4 quadrants Extremities: Neg cyanosis; L walking boot in place Neurological: Speech clear; Gross motor/sensory function intact; Neg focal neurologic deficits Psychiatric: Appropriate mood/affect Skin: Normal Color; Warm/Dry Results & Data Results & Data ([facility]) Vital Signs (Past 12 Hours) Vital Signs Temp Pulse Resp BP Pulse Ox 10/29/21 14:56 36.9 C 86 18 120/78 96 10/29/21 11:04 36.9 C 92 H 18 118/72 96 10/29/21 07:29 36.8 C 73 16 124/74 98 PG Care Time/CCT Total # of Minutes Spent Total Time Spent with Patient: Total time spent is greater than 50% in coordination of care (as documented) at patient's floor/unit and/or counseling patient: Coding Level of Care Code 99889 Subseq Hosp Care Lvl 2 Diagnoses Fall W19.XXXA Anemia D64.9 Elevated troponin R77.8 DM w/o complication type II, uncontrolled E11.65 Glycemic state: with hyperglycemia HTN (hypertension) I10 CAD (coronary artery disease) I25.10 Coronary Disease-Associated Artery/Lesion type: telida artery Kaw vs. transplanted heart: telida heart Associated angina: angina presence unspecified GERD (gastroesophageal reflux disease) K21.9 Esophagitis presence: without esophagitis Hypomagnesemia E83.42 Abrasion T14.8XXA Diabetic neuropathy E11.40 Depression F32.9 Diabetic gastroparesis E11.43; K31.84 Obesity (BMI 30.0-34.9) E66.9 Vitamin D deficiency E55.9 Dyslipidemia E78.5 Sprain of left foot S93.602A Asymptomatic bacteriuria R82.71 (1) DM w/o complication type II, uncontrolled Glycemic state: with hyperglycemia Qualified Code(s): E11.65 - Type 2 diabetes mellitus with hyperglycemia (2) CAD (coronary artery disease) Coronary Disease-Associated Artery/Lesion type: telida artery Kaw vs. transplanted heart: telida heart Associated angina: angina presence unspecified Qualified Code(s): I25.10 - Atherosclerotic heart disease of telida coronary artery without angina pectoris (3) GERD (gastroesophageal reflux disease) Esophagitis presence: without esophagitis Qualified Code(s): K21.9 - Gastro- esophageal reflux disease without esophagitis
[2021-10-29] MEDS: ENOXAPARIN INJ 40 MG/0.4 ML SYR SQ SCH (20:16)
[2021-10-29] MEDS ORDERED: INSULIN GLARGINE SOLOSTAR 100 UNITS/ML 3 ML PEN SC SCH ×2 (21:00)
[2021-10-30] MEDS: ACETAMINOPHEN 500 MG TAB PO SCH ×3 (00:20→13:15)
[2021-10-30 08:47] LABS: Hematocrit (blood only) 33.5 % (37-47); Hemoglobin 11.1 g/dL (12.0-16.0); Mean Corpuscular Hemoglobin 28.1 pg (25-34); Mean Corpuscular Hgb Conc 33.1 g/dL (32-36); Mean Corpuscular Volume 84.8 fL (80-100); Mean Platelet Volume 9.6 fL (7.4-10.4); Platelet Count 232 K/uL (130-400); RDW Coefficient of Variation 14.3 % (11.5-14.5); Red Blood Count 3.95 M/uL (4.2-5.4); White Blood Count 5.93 K/uL (4.8-10.8)
[2021-10-30] MEDS ORDERED: FOLIC ACID 1 MG TAB PO SCH (09:00)
[2021-10-30] MEDS: INSULIN ASPART PER UNIT SC SCH ×2 (09:15→13:17)
[2021-10-30] MEDS: ASPIRIN 81 MG ECTAB PO SCH (09:36)
[2021-10-30] MEDS: busPIRone 5 MG TAB PO SCH ×2 (09:36→13:14)
[2021-10-30] MEDS: carvediloL 6.25 MG TAB PO SCH (09:36)
[2021-10-30] MEDS: CHOLECALCIFEROL 1,000 UNITS 25 MCG TAB PO SCH (09:37)
[2021-10-30] MEDS: CYANOCOBALAMIN 1000 MCG/ML VIAL IM SCH (09:37)
[2021-10-30] MEDS: DICLOFENAC SOD 1% GEL 100 GM TUBE EXT SCH ×2 (09:38→13:15)
[2021-10-30] MEDS: FAMOTIDINE 20 MG TAB PO SCH (09:38)
[2021-10-30] MEDS: DULoxetine HCL 30 MG CAP PO SCH (09:38)
[2021-10-30] MEDS: EZETIMIBE 10 MG TABLET PO SCH (09:38)
[2021-10-30] MEDS: LIDOCAINE 5% 1 PATCH TD SCH (09:39)
[2021-10-30] MEDS: ISOSORBIDE MONO EXTENDED REL 60 MG TABCR PO SCH (09:39)
[2021-10-30] MEDS: lisinopril 10 MG TAB PO SCH (09:40)
[2021-10-30] MEDS: ROSUVASTATIN CALCIUM 20 MG TAB PO SCH (09:40)
[2021-10-30] MEDS: PANTOprazole 40 MG TAB PO SCH (09:40)
[2021-10-30 09:43] LABS: Anion Gap 4 (3-11); BUN Creatinine Ratio 26.9 (10-20); Blood Urea Nitrogen 25 mg/dl (6-23); Calcium 8.9 mg/dl (8.5-10.1); Carbon Dioxide 27 mmol/L (21-32); Chloride 107 mmol/L (98-107); Creatinine Clr Calc Pharmacy 57.8 ml/min; Est GFR (African American) 70.2 ml/min; Est GFR (Non-African American) 60.5 ml/min; Glucose 99 mg/dl (70-99(Fasting)); Sodium 138 mmol/L (136-145)
[2021-10-30] MEDS: INSULIN GLARGINE SOLOSTAR 100 UNITS/ML 3 ML PEN SC SCH (09:59)
[2021-10-30] MEDS ORDERED: CYANOCOBALAMIN (B-12) 500 MCG TABLET PO SCH (13:00)
--- NOTE | 2021-10-30 13:23 | Discharge Summary ---
Date of Service October 30, 2021 Admission HPI Per Admitting Provider This patient is a 76-year-old female with a history of DM 2, CAD s/p stent in 2005, HTN, chronic diastolic CHF, gastroparesis, hyperlipidemia, left knee OA, GERD with Nix's esophagus and erosive esophagitis, who presents to the ER with a mild headache, pain in the legs and left arm as well as left ankle, and severe back pain with movement. This was all following a fall two days ago that occurred while walking in her kitchen without her walker and her left knee gave out. She fell down on her left side and scraped her left forearm and twisted her left ankle. She did hit her head but denies loss of consciousness, still has mild headache. She had her neighbors come and get her off the floor that day and was able to ambulate. Then since yesterday, had onset of significant lower back pain and pain in the left ankle with swelling in the ankles left greater than right. She was not able to get out of bed without assistance and had her neighbors bring her to the hospital. She did not take any of her medications including her insulin today. She denies any chest pains or shortness of breath, but has had worsening indigestion over the last few weeks. No abdominal pains, no trouble with constipation or diarrhea, no urinary symptoms. In the ER, she was hyperglycemic with sugar in the high 300s, her magnesium was low at 1.4, and troponin was mildly elevated but not more than previous. CT scans were performed of the head, lumbar spine, pelvis, and x-rays performed of the left ankle, left forearm, and chest-all were negative. In the ER, she was given IV fentanyl, IV Dilaudid, 4 units of IV regular insulin, and 1 g of magnesium IV as well as Zofran. She was unable to ambulate and will need to be admitted for pain control and evaluation for rehab placement as well as for electrolyte replacement. Principal Diagnosis Mechanical Fall with L Ankle Sprain Discharge Exam PHYSICAL EXAM General Appearance: WDWN in NAD who is A&O x 3 HEENT: Head is normocephalic/atraumatic; Hearing grossly intact; Mucous membranes moist Neck: Supple; Trachea midline; Neg JVD Heart: RRR with no M/G/R Lungs: CTA in all lung peraza bilaterally; Respirations unlabored; Neg accessory muscle use Abdomen: Soft, non-tender, non-distended; Positive BS x 4 quadrants Extremities: Neg cyanosis; L ankle with only minimal swelling to the medial aspect of the ankle Neurological: Speech clear; Gross motor/sensory function intact; Neg focal neurologic deficits Psychiatric: Appropriate mood/affect Skin: Normal Color; Warm/Dry Discharge Data Allergies Allergy/AdvReac Type Severity Reaction Status Date / Time cephalexin Allergy Intermediate Rash and Verified 10/24/21 14:03 itchiness Cephalosporins Allergy Intermediate Rash and Verified 10/24/21 14:03 itchiness Sulfa (Sulfonamide Allergy Intermediate Hives Verified 10/24/21 14:03 Antibiotics) Consultations 10/24/21 13:04 ED Decision to Admit Stat 10/24/21 14:34 Consult Orthopedic Surgery Routine 10/25/21 11:42 Consult Gastroenterology Routine Ordered Studies Ankle X-Ray 10/24/21 11:11 XR ankle LT min 3V routine CLINICAL HISTORY: left ankle pain s/p fall COMPARISON STUDY: None. FINDINGS: Diffuse soft tissue swelling within the left ankle. No fracture or dislocation. Posterior and plantar calcaneal spurs are noted. IMPRESSION: Soft tissue swelling within the left ankle. No fractures. ACT 112: Negative or not required by law. Electronically signed by: Vijay Vega M.D. 10/24/2021 12:22 PM Chest X-Ray 10/24/21 11:11 XR chest 1V portable CLINICAL HISTORY: fall, weakness. Evaluate cardiopulmonary status COMPARISON STUDY: 03/21/2021 TECHNIQUE: 1 view of the chest FINDINGS: Single frontal view of the chest demonstrates the cardiomediastinal silhouette to be within normal limits. The lungs are clear of alveolar opacities. There is no evidence for pleural effusion. There is no evidence for vascular congestion. There is no acute osseous pathology. IMPRESSION: 1. No acute cardiopulmonary disease. ACT 112: Negative or not required by law. Electronically signed by: Jose Angel Capellan M.D. 10/24/2021 12:08 PM Forearm X-Ray 10/24/21 11:11 XR forearm LT 2V CLINICAL HISTORY: fall TECHNIQUE: 2 views of the left forearm were obtained. Comparison: None available at the time of this dictation. FINDINGS: There is no evidence of acute fracture or dislocation. The alignment is anatomic . Joint spaces are well-preserved. No soft tissue abnormality is seen. IMPRESSION: No evidence of acute bony injury. ACT 112: Negative or not required by law. Electronically signed by: Josh Lange M.D. 10/24/2021 12:[address] 10/24/21 11:[address] DOSE: 1003.45 mGycm HISTORY: fall, head injury, headache TECHNIQUE: Multiaxial CT images of the head were performed without the use of intravenous contrast. Automated exposure control was utilized for this study. A dose lowering technique was utilized adhering to the principles of ALARA. Comparison: None. Findings: The paranasal sinuses and mastoid air cells are clear. The calvarium and skull base are intact. The ventricles and sulci are within normal limits. There is no mass, hematoma, midline shift, or acute infarct. Impression: No acute intracranial abnormality. ACT 112: Negative or not required by law. Electronically signed by: Vijay Vega M.D. 10/24/2021 12:[address] 10/24/21 11:11 CT lumbar spine wo con CLINICAL HISTORY: fall, low back pain COMPARISON STUDY: No previous studies for comparison. CT DOSE: TECHNIQUE: Standard CT of the Lumbar Spine was performed without IV contrast. A dose lowering technique was utilized adhering to the principles of ALARA. FINDINGS: Bones: The bones are osteopenic. There is no evidence for an acute fracture or malalignment. The heights of the vertebral bodies are maintained. The vertebral bodies are in anatomic alignment. Disc spaces: The disc space heights are maintained. Facet joints: However, there is hypertrophic facet joint disease seen throughout the lumbar spine, greatest at the lumbosacral junction. Mild degenerative changes are seen involving the SI joints. Soft tissues: The prevertebral soft tissues are within normal limits. IMPRESSION: 1. Osteopenia with no acute abnormality. 2. 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 ACT 112: Negative or not required by law. Electronically signed by: Jose Angel Capellan M.D. 10/24/2021 12:[address] 10/24/21 11:14 CT pelvis wo con CLINICAL HISTORY: fall, low back and left hip pain TECHNIQUE: Helical axial images of the pelvis were obtained and displayed at 5 and 1 mm intervals. Automated dose lowering techniques and/or adjustment according to patient size were utilized for this exam. This exam was performed with intravenous contrast. COMPARISON: Comparison is made to CT abdomen pelvis 03/21/2021 FINDINGS: Bladder: Unremarkable. Reproductive organs: Patient is status post hysterectomy. Bowel: Unremarkable. Lymph nodes Mesenteric: Unremarkable. Pelvic: Unremarkable. Peritoneum: Metallic densities again seen in the pelvis. Vessels: Atherosclerotic calcifications are seen. Abdominal wall: Unremarkable. Bones: Degenerative changes in the visualized spine. IMPRESSION: No evidence of acute fracture. ACT 112: Negative or not required by law. Electronically signed by: Josh Lange M.D. 10/24/2021 12:43 PM Foot X-Ray 10/24/21 14:31 XR foot LT min 3V routine CLINICAL HISTORY: fall,foot pain TECHNIQUE: 3 views of the left foot were obtained. Comparison: None available at the time of this dictation. FINDINGS: No fractures are present. The alignment is anatomic. The joint spaces are well preserved. No soft tissue abnormality is seen. IMPRESSION: No evidence of acute bony injury. ACT 112: Negative or not required by law. Electronically signed by: Josh Lange M.D. 10/24/2021 3:18 PM Abdomen/Pelvis CT 10/25/21 12:[address] WITH IV CONTRAST CT DOSE: 638.67 mGy.cm HISTORY: epigastric pain/dysphagia, anemia, s/p fall TECHNIQUE: Multiaxial CT images of the abdomen and pelvis were performed following the use of intravenous contrast. A dose lowering technique was utilized adhering to the principles of ALARA. COMPARISON STUDY: Pelvis CT 10/24/2021. Abdomen and pelvis CT 03/21/2021. FINDINGS: Bibasilar subsegmental atelectasis is noted. Punctate calcified granu eula within the left lower lobe. No pneumoperitoneum. No pneumatosis. No fractures within the visualized osseous structures. Mild circumferential thickening of the distal esophagus, unchanged. The heart is normal in size. Prior cholecystectomy. The main portal vein is patent. Mild calcified plaque within the normal caliber abdominal aorta. The liver, spleen, adrenal glands, and pancreas unremarkable. Bilateral cortical renal scarring is again noted. No renal or ureteral stones. No hydronephrosis. The bladder is unremarkable. The uterus is surgically absent. No pelvic free fluid or pelvic lymphadenopathy. No evidence for bowel obstruction. The appendix is not identified and may also be surgically absent given the hysterectomy. Submucosal fat deposition within the proximal colon. This is likely chronic. IMPRESSION: 1. Mild circumferential thickening of the distal esophagus, unchanged. This favors a chronic esophagitis. Follow-up nonemergent endoscopy can be performed for further evaluation. 2. No evidence for bowel obstruction. 3. Postoperative changes as described above. ACT 112: Negative or not required by law. Electronically signed by: Vijay Vega M.D. 10/25/2021 1:49 PM Knee X-Ray 10/26/21 07:42 XR knee LT 3V HISTORY: 76 years-old Female fall, knees gave out acute left knee pain status post fall COMPARISON: 09/20/2019 TECHNIQUE: 3 views of the left knee FINDINGS: Mild lateral with moderate medial and patellofemoral compartment osteoarthritis. Marginal spurring of the tibial spines. No acute fracture, dislocation or large joint effusion. IMPRESSION: 1. No acute fracture or dislocation. 2. Moderate medial and patellofemoral compartment osteoarthritis. ACT 112: Negative or not required by law. The above report was generated using voice recognition software. It may contain grammatical, syntax or spelling errors. Electronically signed by: Jordan Vee M.D. 10/26/2021 9:18 AM Diabetes Follow up Diabetes Follow-up Needed for HgbA1c >9% Hospital Course (1) Fall: - Mechanical fall due to give way of the knee, neither syncope nor arrhythmia suspected. Did hit her head but no LOC reported. Hx DM, A1c 12.6 -- reports BSGs at home can be 200-300s with symptoms higher of weakness/dizziness/fatigue and in 300s on admission. Per PCP note Jun 2021, patient had been going low in late afternoon/prior to dinner. ?if similar incident - Reported pain to L ankle, severe back pain, headache -- pain improving - Imaging -- CT Head negative. CXR negative. X ray L foot -- no evidence for acute isrrael injury. X ray L forearm -- no acute bony injury. CT Pelvis without acute fx -- CT Lumbar Spine 1. Osteopenia with no acute abnormality. 2. 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 -- Xray L ankle -> Soft tissue swelling within the left ankle, no fractures -- Xray L knee -> Moderate medial and patellofemoral compartment osteoarthritis. NO FRACTURE - Ortho following - conservative management with walking boot x 4 weeks for L ankle sprain; stockings to control swelling - follow-up in office with Dr. Sanders in 4 weeks - Continel voltaren to avoid NSAIDs in patient with hx erosive esophagitis on dual acid therapy - Orthotics consulted - PT/OT Back Pain: - RESOLVED - Tylenol PRN (2) Anemia: - Normocytic; suspect some from hemoconcentration on admission - Hgb did drop into 10s from 13 -- but trending up at 11.9 currently - Fecal occult negative on 10/25 but positive today but was noted to have BRBPR so would expect this to be positive - with vitals stable and Hgb trending up no urgent need for further evaluation at this time; will monitor Hgb - Iron levels 23 with trans % sat 10; Venofer given on 10/25 and 10/26 - B12 - low normal at 220 - can use supplementation OTC - Folate low normal - po replacement (3) Elevated troponin: - Mildly elevated troponin at 0.16 on admission, slight bump on repeat but improving after venofer. No symptoms, ?2nd to demand -- ?2nd to demand/anemia from iron deficiency/low normal B12. No CP/SOB reported - Does have hx stents to RCA/LAD - Venofer replacement given (4) DM w/o complication type II, uncontrolled: - A1c 12.4 - Continue home regimen -->Rec'd F/U with endocrine at discharge given uncontrolled (had been in 8-9s last year) (5) HTN (hypertension): - Blood pressures mildly elevated on admission but HYPOTENSIVE 10/25 now normotensive-- got additional BP meds on admission -- Orthostatics negative - Continue home regimen (6) CAD (coronary artery disease): - With history of stents RCA and LAD in 2005 2006 * Follows routinely with [facility] cardiology. NSTEMI 11/2005 --> At that time underwent sequential RCA stents. Later due to unstable angina underwent LAD and left circumflex stents in 2005. - ECHO obtained given + troponin/hypotension --> no change from prior . See below regarding anemia. No CP/SOB reported - Continue home rosuvastatin and ASA (Carvedilol, Lisinopril, Isosorbide on hold due to low BP previously - likely can resume tomorrow) - No CP reported (as prior to previous MIs), troponin trended as above, replacement of iron as outlined - Continue Isosorbide (7) GERD (gastroesophageal reflux disease): - Hx nix's esophagus --> 1. Mild circumferential thickening of the distal esophagus, unchanged. This favors a chronic esophagitis. Follow-up nonemergent endoscopy can be performed for further evaluation. 2. No evidence for bowel obstruction. 3. Postoperative changes as described above. - Continue Pepcid and Protonix -- Having worsening heartburn symptoms last few weeks -- states improvement after having BM as well - Maalox as needed - Also had some BRBPR on 10/27 and reports H/O hemorrhoids -- stool was heme+ as would be expected; Hgb is stable and vitals stable - GI consultation - plans for outpatient F/U for monitoring/testing. Continue current regimen -- Recent EGD after last admission with Nix's, multiple fragments of benign mildly inflamed gastric mucosa with focal intestinal metaplasia seen. Severe grade D esophagitis reportedly resolved with use of high dose PPI BID and famotidine (patient reports she has been taking these regularly) (8) Abrasion: - Left forearm; local wound care (9) Diabetic neuropathy: - Continue duloxetine - B12 low normal and will give IM while inpatient, continue PO at D/C (10) Depression: - Depression/Anxiety - Continue Duloxetine; Buspar (11) Diabetic gastroparesis: - Noted - Encouraging small/frequent meals, bowel regimen -- having regular BMs currently (12) Obesity (BMI 30.0-34.9): - BMI 36; noted (13) Vitamin D deficiency: - Vit 28.2 Apr 2019, continued on vitamin D supplementation OTC (14) Dyslipidemia: - Continue rosuvastatin and Zetia; [place]-3 (15) Sprain of left foot: - As above; outpatient F/U (16) Asymptomatic bacteriuria: Urinalysis shows greater than 30 WBCs and greater than 30 epithelial cells, 1+ bacteria, negative nitrate-is a contaminated sample She is asymptomatic with regard to urinary symptoms Urine culture growing mixed organisms No treatment necessary DVT prophylaxis Lovenox, SCDs while inpatient DNR/DNI as per discussion with patient. Her friend, Franck Ortega, is her main point of contact although he does not have a legal power of corporate attorney. She does have a sister and a daughter who could also be involved in her care but she wishes for Franck to be her main decision maker in the event she is not able to make decisions. Dipso: Home with Home Services Home Health Attestation I certify that this patient is under my care and that I, or a physicians administrative assistant coordinator working with me, had a face to-face encounter that meets the home health [id number] encounter requirements with this patient. The encounter with the patient was in whole, or in part, for the following medical condition, which is the primary reason for home health care (list medical condition): fall- back pain- ankle pain I certify that, based on my findings, the following services are medically necessary home health services: My clinical findings support the need for the above services because: OT Assess ADL Status and Restore Function w ADLs PT Assessment for Endurance / Balance / Strength PT Eval for Safety and Mobility PT Eval for Safety, Gait Training, Assistive Devices PT Gait and Balance Training, Strengthening and Safety Skilled Nsg Assessment Further, I certify that my clinical findings support that this patient is homebound (i.e. absences from home require considerable and taxing effort and are for medical reasons or yarsanism services or infrequently or of short duration when for other reasons) because: Supportive Aid - Walker Transportation Assistance/Unable to Leave Home Unassisted Certification for Home Health Services: Based on the above findings, I certify that this patient is confined to the home and needs intermittent jail care, physical therapy and/or speech therapy or continues to need occupational therapy. The patient is under my care, and I have initiated the establishment of the plan of care. This patient will be followed by a physician who will periodically review the plan of care. Total Time Total Time Spent Total Time Spent (In Minutes): Spent greater than 30 minutes preparing patient for discharge. This includes discussion with patient/family, assessment, intervention, medication reconciliation, and coordination of care. Discharge Plan Discharge Items Patient Disposition: Home - Home Health Services Reason For Visit: FALL, BACK PAIN, ANKLE PAIN Discharge Diagnosis: Mechanical Fall; Left Ankle Sprain Activity: Per Instructions section Non-emergency contact: Primary Care Provider, Surgeon and Track Dresser Call non-emergency contact if: you have any medication questions, your symptoms worsen and you have a fever Follow-up/Referrals: Lalito Pimentel MD [Primary Care Provider] - 11/03/21 11:00 am (APPT WITH ALFREDO TRAMMELL PA-C) Lio To [Physician] - (Call to arrange follow-up Office will call patient with hospital f/u for GI issues.) Moe Sanders MD [Physician] - 11/27/21 9:00 am (Call office to arrange in 4 weeks) Diet: Carb Consistent or DM2 Addtl Attending Provider Instructions: Fall with Ankle Sprain: - Thankfully nothing was broken during this fall. It is recommended to continue the walking boot for 4 weeks - Dr. Sanders wants to see you back in 4 weeks to reassess the ankle. Dr. Sanders's information is in the discharge information - You may continue to use Tylenol as needed for any mild discomfort. Voltaren gel can be used as well and it is now available over the counter. Anemia: - You have anemia or lower hemoglobin levels. It is not low enough to require a blood transfusion but should be periodically monitored. - You were seen by the GI doctors and they want you to call their office and arrange a follow-up. They are considering an EGD and colonoscopy to further assess - Would also recommend using a vitamin D supplement. This can be bought over the counter as well. This can help with good bones and blood counts - Even though your folate and B12 are normal, they are on the lower end of normal. Both of these help with blood counts. A folate prescription was sent and B12 can be purchased over the counter Diabetes: - Your A1c is 12.4. Given your age we would like to see this get closer to 7 but would like that gradually - The branding specialist would like to see you after discharge. The Endocrinology office number is [phone] to schedule an appointment with sonia Moody or Svetlana - For now we will continue your home regimen High Blood Pressure: - Please continue your home medications as previously prescribed Pending Studies at Discharge: No Stand-Alone Forms: My [employer], Smoking Cessation Medications and DC Order Prescriptions: New folic acid 1 mg Tablet 1 mg PO QAM 30 Days Qty: 30 RF: 0 Continued nitroglycerin [Nitrostat] 0.4 mg Tablet, Sublingual 0.4 mg Sublingual UD PRN (Reason: Chest Pain) Qty: 0 RF: 0 omega 0-ggl-vdo-fish oil [Fish Oil] 1,000 mg (120 mg-180 mg) Capsule 1,000 mg PO QAM Qty: 0 RF: 0 cholecalciferol (vitamin D3) [Vitamin D3] 1,000 unit capsule 1,000 units PO QAM Qty: 0 RF: 0 rosuvastatin 40 mg tablet 40 mg PO QAM Qty: 90 RF: 3 Gvoke HypoPen 2-Pack 1 mg/0.2 mL auto-injector 1 mg subcut .COMPLEX Qty: 0.4 RF: 3 (DME) OneTouch Verio test strips Strip See Dose Instructions .ROUTE .MEDSUPPLY Qty: 200 RF: 3 duloxetine 30 mg capsule,delayed release(DR/EC) 30 mg PO QAM Qty: 90 RF: 3 isosorbide mononitrate 30 mg tablet extended release 24 hr 60 mg PO QAM Qty: 180 RF: 3 carvedilol 6.25 mg tablet 6.25 mg PO BID Qty: 180 RF: 3 (DME) pen needle, diabetic [BD Ultra-Fine [place] Pen Needle] 32 gauge x 5/32" needle See Rx Instructions .ROUTE .MEDSUPPLY RF: 0 ondansetron HCl 4 mg tablet 4 mg PO Q8H PRN (Reason: nausea and vomiting) Qty: 30 RF: 0 Linzess 145 mcg capsule 145 mcg PO QAM PRN (Reason: Constipation) RF: 0 insulin aspart U-100 [Novolog Flexpen U-100 Insulin] 100 unit/mL (3 mL) insulin pen 20 unit subcut DAILY Qty: 2 RF: 3 metformin 500 mg tablet 1,000 mg PO BID Qty: 120 RF: 6 lisinopril 10 mg tablet 10 mg PO QAM Qty: 90 RF: 3 famotidine 20 mg tablet 20 mg PO BID Qty: 180 RF: 2 pantoprazole 40 mg tablet,delayed release (DR/EC) 40 mg PO BID Qty: 60 RF: 2 buspirone 10 mg tablet 10 mg PO TID Qty: 270 RF: 1 (DME) FreeStyle Renan 2 Sensor Kit See Rx Instructions .Route RF: 0 (DME) FreeStyle Renan 2 [place] Misc See Rx Instructions .Route RF: 0 chlorthalidone 25 mg tablet 25 mg PO DAILY Qty: 30 RF: 2 ezetimibe [Zetia] 10 mg tablet 10 mg PO QAM RF: 0 Tresiba FlexTouch U-100 100 unit/mL (3 mL) insulin pen 33 unit SQ QPM RF: 0 aspirin 81 mg Tablet,Delayed Release (Dr/Ec) 81 mg PO QAM RF: 0 Discharge Orders: Discharge Order (Routine); Ordered 10/30/21 Ordered By: Suzi Stinson/Other Patient Handouts: High Blood Sugar (Hyperglycemia), Managing Type 2 Diabetes Admission Data Admit Date/Time: 10/24/21 14:31 Attending Provider: Roger Vazquez Admit Provider: Malissa Saavedra Primary Care Provider: Lalito Pimentel Other Providers: Fabian Andres ; [facility] ; Malissa Saavedra ; Moe Sanders ; Ben Kovacs ; [facility] Other Interventions: Discharge Summary Assessment (RN) Last Done: 10/30/21 14:36 Coding Level of Care Code D/C DAY MANAGEMENT >30 MINS Diagnoses Fall W19.XXXA Anemia D64.9 Elevated troponin R77.8 DM w/o complication type II, uncontrolled E11.65 Glycemic state: with hyperglycemia HTN (hypertension) I10 CAD (coronary artery disease) I25.10 Associated angina: angina presence unspecified Coronary Disease-Associated Artery/Lesion type: [place] artery [place] vs. transplanted heart: [place] heart GERD (gastroesophageal reflux disease) K21.9 Esophagitis presence: without esophagitis Abrasion T14.8XXA Diabetic neuropathy E11.40 Depression F32.9 Diabetic gastroparesis E11.43; K31.84 Obesity (BMI 30.0-34.9) E66.9 Vitamin D deficiency E55.9 Dyslipidemia E78.5 Sprain of left foot S93.602A Asymptomatic bacteriuria R82.71
== END 2021-10-30 17:01 | disposition home health service (06) ==
LOC: ED 10:48 → SUATTDRO 14:31 → 2N 14:31 → INTOOBSV 14:31 → 2N 16:50 → 3N 10-29 23:37

== ENCOUNTER 2021-11-27 22:19 | Inpatient (IN) ==
[2021-11-27] MEDS ORDERED: ONDANSETRON INJ 2 MG/ML 2 ML VIAL ONE (22:27)
[2021-11-27] MEDS ORDERED: ASPIRIN CHEW 324 MG ONE (22:27)
[2021-11-27] MEDS ORDERED: GI COCKTAIL ED USE PO ONE (22:43)
[2021-11-27 22:59] LABS: iSTAT Blood Urea Nitrogen 21 mg/dl (7-18); iSTAT Carbon Dioxide 23 mmol/L (24-31); iSTAT Chloride 88 mmol/L (101-112); iSTAT Glucose > 700 mg/dl (70-99); iSTAT Hematocrit 42 % (37-47); iSTAT Hemoglobin 14.3 g/dl (12.0-16.0); iSTAT Ionized Calcium 1.27 mmol/l (1.12-1.32); iSTAT Potassium 3.9 mmol/L (3.3-5.0); iSTAT Sodium 127 mmol/L (135-144)
[2021-11-27] MEDS ORDERED: SODIUM CHLORIDE 0.9% 1000ML 1,000 ML IV ONE (23:08)
[2021-11-27] MEDS ORDERED: ONDANSETRON INJ 2 MG/ML 2 ML VIAL IV STA (23:27)
[2021-11-27] MEDS ORDERED: MoRPHine SULFATE 4 MG/ML 1 ML CARP\\VIAL IV STA (23:27)
[2021-11-27 23:28] LABS: Basophils # (auto) 0.01 K/uL (0-0.2); Basophils % (auto) 0.2 %; Eosinophils # (auto) 0.02 K/uL (0-0.5); Eosinophils % (auto) 0.4 %; Hematocrit (blood only) 43.1 % (37-47); Hemoglobin 14.9 g/dL (12.0-16.0); Immature Granulocytes # (auto) 0.03 K/uL (0.00-0.02); Immature Granulocytes % (auto) 0.5 %; Lymphocytes # (auto) 0.66 K/uL (1.2-3.4); Lymphocytes % (auto) 11.8 %; Mean Corpuscular Hgb Conc 34.6 g/dL (32-36); Monocytes # (auto) 0.17 K/uL (0.11-0.59); Monocytes % (auto) 3.1 %; Neutrophils # (auto) 4.68 K/uL (1.4-6.5); Platelet Count 265 K/uL (130-400); Red Blood Count 5.13 M/uL (4.2-5.4); White Blood Count 5.57 K/uL (4.8-10.8)
--- NOTE | 2021-11-27 23:31 | Emergency Department Note ---
History of Present Illness General Chief Complaint: Chest Pain Time Seen by Provider: 11/27/21 22:32 History of Present Illness Maximum Pain Intensity: 10 This 76-year-old presents to the ER complaining of chest pain that radiates to her back that started around 830 tonight. Location: Chest Quality: Painful Severity: Moderate Duration: Past few hours Timing: Started few hours ago Context: Patient was concerned and came in Modifying factors: better with nothing; worse with nothing EMS gave aspirin nitroglycerin and Zofran. Patient states no real change. Patient denies fever, chills, vomiting, abdominal pain, numbness, tingling, localized weakness. She states this feels different from her prior heart attacks. Home Medications Medication Instructions Recorded Confirmed Type nitroglycerin 0.4 mg sublingual 0.4 mg SUBLINGUAL UD PRN #0 btl 07/27/17 11/27/21 History tablet (Nitrostat) omega 3-itv-tqi-fish oil 1,000 mg 1,000 mg PO QAM #0 cap 07/27/17 11/27/21 History (120 mg-180 mg) capsule (Fish Oil) cholecalciferol (vitamin D3) 25 1,000 units PO QAM #0 tab 04/05/19 11/27/21 Hi story mcg (1,000 unit) capsule (Vitamin D3) linaclotide 145 mcg capsule 145 mcg PO QAM PRN cap 04/05/19 11/27/21 History (Linzess) rosuvastatin 40 mg tablet 40 mg PO QAM #90 tab 07/18/20 11/27/21 Rx pen needle, diabetic 32 gauge x ea 11/18/20 11/18/21 History " (BD Ultra-Fine [place] Pen Needle) insulin aspart U-100 100 unit/mL 20 unit SUBCUT DAILY #2 box 01/21/21 11/27/21 Rx (3 mL) subcutaneous pen (Novolog Flexpen U-100 Insulin aspart) insulin degludec 100 unit/mL (3 33 unit SQ QPM 03/26/21 11/27/21 History mL) subcutaneous pen (Tresiba FlexTouch U-100 insulin) famotidine 20 mg tablet 20 mg PO BID #180 tab 05/07/21 11/27/21 Rx lisinopril 10 mg tablet 10 mg PO QAM #90 tab 05/07/21 11/27/21 Rx ondansetron HCl 4 mg tablet 4 mg PO Q8H PRN #30 tab 06/24/21 11/27/21 Rx flash glucose scanning reader 06/26/21 11/18/21 History (FreeStyle Renan 2 [place]) flash glucose sensor (FreeStyle 06/26/21 11/18/21 History Renan 2 Sensor) blood sugar diagnostic (OneTouch #200 ea 08/14/21 11/18/21 Rx Verio test strips) carvedilol 6.25 mg tablet 6.25 mg PO BID #180 tab 08/19/21 11/27/21 Rx duloxetine 30 mg capsule,delayed 30 mg PO QAM #90 cap 08/19/21 11/27/21 Rx release isosorbide mononitrate 30 mg 60 mg PO QAM #180 tab 08/19/21 11/27/21 Rx tablet,extended release 24 hr chlorthalidone 25 mg tablet 25 mg PO DAILY #30 tab 08/26/21 11/27/21 Rx aspirin 81 mg tablet,delayed 81 mg PO QAM 10/24/21 11/27/21 History release folic acid 1 mg tablet 1 mg PO QAM 30 Days #30 tab 10/30/21 11/27/21 Rx diclofenac sodium 1 % topical gel 2 g TOPICAL QID 10/31/21 11/27/21 History (Arthritis Pain (diclofenac)) Gvoke HypoPen 2-Pack 1 mg/0.2 mL 1 mg SUBCUT .COMPLEX #0.4 ml NS 11/03/21 11/27/21 Rx subcutaneous auto-injector (glucagon) ezetimibe 10 mg tablet (Zetia) 10 mg PO QAM #90 tab 11/03/21 11/27/21 Rx gabapentin 100 mg capsule 100 mg PO HS #30 cap 11/03/21 11/27/21 Rx pantoprazole 40 mg tablet,delayed 40 mg PO BID #60 tab 11/03/21 11/27/21 Rx release buspirone 10 mg tablet 10 mg PO TID #270 tab 11/06/21 11/27/21 Rx metformin 500 mg tablet 1,000 mg PO BID #120 tab 11/07/21 11/27/21 Rx albuterol sulfate 90 mcg/actuation 2 puff INHALATION QID PRN #8.5 g 11/20/21 11/27/21 Rx aerosol inhaler (Ventolin HFA) Allergies Allergy/AdvReac Type Severity Reaction Status Date / Time cephalexin Allergy Intermediate Rash and Verified 11/27/21 23:31 itchiness Cephalosporins Allergy Intermediate Rash and Verified 11/27/21 23:31 itchiness Sulfa (Sulfonamide Allergy Intermediate Hives Verified 11/27/21 23:31 Antibiotics) Past Med/Surg History Medical History Mckeon esophagus CAD (coronary artery disease) s/p stents to RCA November 2005; s/p stents to LAD, LCx in January 2006; s/p stents to RCA in 08/2006 Cervical pain (neck) Chest pain Chronic pain syndrome Depression Diabetes mellitus, type 2 IDDM Diabetic gastroparesis Diabetic peripheral neuropathy Dyslipidemia Folic acid deficiency GERD without esophagitis HTN (hypertension) IBS (irritable bowel syndrome) Lumbar spondylosis Migraine headache Myocardial Infarction ID- November 2005, January 2006, Aug 2006 3 total within an 8 month span--HX OF CATH 2012 [facility] [place] FOLLOWS WITH DR. JULES Non-ST elevation (NSTEMI) myocardial infarction Obesity Sprain of left foot Sprain of left foot Vitamin B12 deficiency Vitamin D deficiency Surgical History History of cardiac cath last 2012 @ [facility] [place], no stents--s/p stents to RCA November 2005; s/p stents to LAD, LCx in January 2006; s/p stents to RCA in 08/2006 History of cataract surgery BL History of cholecystectomy History of colonoscopy with polypectomy History of esophageal dilatation History of esophagogastroduodenoscopy (EGD) History of lumbar spinal fusion History of tooth extraction all teeth History of total hysterectomy with bilateral salpingo-oophorectomy (BSO) History of total right knee replacement (TKR) S/P coronary artery stent placement s/p stents to RCA November 2005; s/p stents to LAD, LCx in January 2006; s/p stents to RCA in 08/2006 Status post trigger finger release right thumb Family History Brother Myocardial infarction Anxiety Heart disease Hypertension Cancer Sister Family history of reaction to anesthesia difficulty waking Hypertension Heart disease Myocardial infarction Anxiety Cancer Diabetes Father Anxiety Heart disease Hypertension Mother Anxiety Hypertension Heart disease Unknown Cancer skin, GI Denies family history of Ovarian cancer Prostate cancer Breast cancer Colorectal cancer Stroke Social History Smoking Status: Former smoker Tobacco Type: Cigarettes Age Started Using Tobacco: 18; Age Quit Using Tobacco: 57; Cigarettes Per Day: 3 cigarettes a week; Second Hand Exposure: No; Hx Alcohol Use: No Hx Substance Use: No Preferred Language: Uzbek Communication Ability: Effective Visual Impairment: Limited Hearing Ability: Normal Digitizer Operator Required: No Beliefs That Will Affect Care: None marital status: / Current Living Situation: Alone current occupational status: retired and disabled How many Children do You have: 3 Feels Safe at Home: Yes Childhood Exposure to Second-Hand Smoke: No caffeine: Yes (drinks coffee, diet pepsi occasionally ) Dental Care, Regularly: No Physical Activity Frequency: Does not Exercise Seatbelt Use: always Sunscreen Use: No Assistive Devices: Denture - Upper, Glasses and Special Shoe Review of Systems A total of 10 systems reviewed and were otherwise negative Physical Exam Vital Signs Vital Signs - 24 hr 11/27/21 22:34 11/27/21 22:48 11/27/21 23:38 Temperature 37.2 C Temperature Source Oral Pulse Rate 117 H Pulse Rate [Apical] Pulse Rate [Right Finger] Pulse Rhythm [Apical] Respiratory Rate 26 H 18 Respiratory Effort / Characteristics Respiratory Depth Respiratory Pattern Blood Pressure 199/124 H Blood Pressure [Right Arm] 190/131 H Blood Pressure Mean 149 Blood Pressure Mean [Right Arm] 150 Blood Pressure Position [Right Arm] Sitting Pulse Oximetry 94 94 95 Oxygen Delivery Method Room Air Room Air Room Air Sepsis Recent Fever Within 48 Hours No Sepsis New/Unexplained Change in Mental Status No Sepsis Action Taken by Nursing No Action Required 11/28/21 00:15 11/28/21 01:28 11/28/21 02:01 Temperature 37.4 C Temperature Source Oral Pulse Rate Pulse Rate [Apical] 105 H 99 H 95 H Pulse Rate [Right Finger] Pulse Rhythm [Apical] Regular Regular Respiratory Rate 18 22 Respiratory Effort / Characteristics Non-Labored Non-Labored Respiratory Depth Normal Normal Respiratory Pattern Regular Blood Pressure Blood Pressure [Right Arm] 161/97 H 138/112 H 134/93 Blood Pressure Mean Blood Pressure Mean [Right Arm] 118 120 106 Blood Pressure Position [Right Arm] Pulse Oximetry 94 95 Oxygen Delivery Method Room Air Room Air Sepsis Recent Fever Within 48 Hours Sepsis New/Unexplained Change in Mental Status Sepsis Action Taken by Nursing 11/28/21 03:15 11/28/21 03:25 11/28/21 03:49 Temperature Temperature Source Pulse Rate 83 Pulse Rate [Apical] 83 Pulse Rate [Right Finger] 83 80 Pulse Rhythm [Apical] Respiratory Rate 16 16 Respiratory Effort / Characteristics Respiratory Depth Respiratory Pattern Blood Pressure 136/84 Blood Pressure [Right Arm] 126/78 121/69 Blood Pressure Mean Blood Pressure Mean [Right Arm] 94 86 Blood Pressure Position [Right Arm] Lying Lying Pulse Oximetry 96 96 Oxygen Delivery Method Room Air Room Air Sepsis Recent Fever Within 48 Hours Sepsis New/Unexplained Change in Mental Status Sepsis Action Taken by Nursing VITALS: Vitals are noted on the nurse's note and reviewed by myself. Vital signs hypertensive. GENERAL: Pleasant female pleasant and interactive, in no acute distress, nondiaphoretic, well-developed well-nourished. SKIN: The skin was without rashes, erythema, edema, or bruising. There is no tenting of the skin. Capillary reflex less than 2 seconds. HEAD: Normocephalic atraumatic. EARS: External auditory canals clear, EYES: Pupils equal round and reactive to light and accommodation. Conjunctivae without injection, sclerae without icterus. Extraocular movements intact. NOSE: Patent, turbinates without inflammation or discharge MOUTH: Mucous membranes moist. Pharynx without erythema or exudate. Uvula midline. Airway patent. Tongue does not deviate. NECK: Supple without nuchal rigidity. No lymphadenopathy. No thyromegaly. Ce rvical spine is nontender. No JVD. HEART: Regular rate and rhythm LUNGS: Clear to auscultation bilaterally without wheezes, rales or rhonchi. No retractions or accessory muscle use. ABDOMEN: Positive bowel sounds x 4. Normal tympanic percussion. Soft, nontender, without masses or organomegaly. Holliday sign negative. No guarding or rebound tenderness. No CVA tenderness MUSCULOSKELETAL: No muscle atrophy, erythema, or edema noted. NEURO: Patient was alert and oriented to person place and time. Normal sensation to light and sharp touch. No focal neurological deficits. Course Administered Medications Lactated Ringer's (Lr) 1,000 mls @ 150 mls/hr IV .Q6H40M LEON Stop: 11/28/21 16:04 Last Admin: 11/28/21 03:11 Dose: 150 mls/hr Documented by: [id number] Discontinued Medications Al Hydrox/Mg Hydrox/Simethicone (Gi Cocktail Ed Use) 1 dose PO ONE ONE Stop: 11/27/21 22:44 Last Admin: 11/27/21 23:31 Dose: 1 dose Documented by: [id number] Aspirin (Aspirin Chew 324 Mg) Confirm Administered Dose 324 mg .ROUTE .STK-MED ONE Stop: 11/27/21 22:28 Last Admin: 11/27/21 23:04 Dose: Not Given Documented by: [id number] Sodium Chloride (Nss 1000ml) 1,000 mls @ 999 mls/hr IV .Q1H1M ONE Stop: 11/28/21 00:08 Last Admin: 11/27/21 23:52 Dose: 999 mls/hr Documented by: [id number] Insulin Human Regular 250 (units/ Sodium Chloride) 250 mls @ 8 mls/hr IV .Q24H LEON; Protocol Stop: 12/28/21 00:14 Last Titration: 11/28/21 03:44 Dose: 0 units/hr, 0 mls/hr Documented by: [id number] Cosigned by: [id number] Titration: 11/28/21 02:30 Dose: 9.6 units/hr, 9.6 mls/hr Documented by: [id number] Cosigned by: [id number] Admin: 11/28/21 00:58 Dose: 8 units/hr, 8 mls/hr Documented by: [id number] Cosigned by: [id number] Insulin Human Regular (Novolin-R Insulin Per Unit Charge) 10 units IV NOW STA Stop: 11/28/21 00:11 Last Admin: 11/28/21 00:59 Dose: 10 units Documented by: [id number] Cosigned by: [id number] Ioversol (Optiray 320 125ml) 125 ml IV ONCE ONE Stop: 11/28/21 00:25 Last Admin: 11/28/21 00:25 Dose: 118 ml Documented by: [id number] Metoprolol Tartrate (Metoprolol Tartrate 1 Mg/Ml Vial) 5 mg IV NOW STA; Protocol Stop: 11/28/21 02:39 Last Admin: 11/28/21 03:15 Dose: 5 mg Documented by: [id number] Miscellaneous (Stat Insulin Drip) 1 ea N/A NOW STA Stop: 11/28/21 00:10 Last Admin: 11/28/21 01:15 Dose: 1 ea Documented by: [id number] Miscellaneous ([facility] Goal Range 250-350 Mg/Dl) 1 ea N/A ONE ONE Stop: 11/28/21 00:10 Last Admin: 11/28/21 01:15 Dose: 1 ea Documented by: [id number] Morphine Sulfate (Morphine Sulfate 4 Mg/Ml 1 Ml Carp\\Vial) 4 mg IV NOW STA Stop: 11/27/21 23:28 Last Admin: 11/28/21 00:04 Dose: 4 mg Documented by: [id number] Nitroglycerin (Nitroglycerin Sl 0.4 Mg/Tab Tab) 0.4 mg SL NOW STA Stop: 11/27/21 23:45 Last Admin: 11/28/21 00:07 Dose: 0.4 mg Documented by: [id number] Nitroglycerin (Nitroglycerin 2% Ointment 30gm Tube) 0.5 inch EXT NOW ONE Stop: 11/28/21 00:27 Last Admin: 11/28/21 00:43 Dose: 0.5 inch Documented by: [id number] Ondansetron HCl (Ondansetron Inj 2 Mg/Ml 2 Ml Vial) Confirm Administered Dose 4 mg .ROUTE .STK-MED ONE Stop: 11/27/21 22:28 Last Admin: 11/27/21 23:04 Dose: Not Given Documented by: [id number] Ondansetron HCl (Ondansetron Inj 2 Mg/Ml 2 Ml Vial) 4 mg IV NOW STA Stop: 11/27/21 23:28 Last Admin: 11/28/21 00:05 Dose: 4 mg Documented by: [id number] Medical Decision Making Medical Records Attestation: I reviewed the patient's medical records. Home Medications Current Medication List: was personally reviewed by me Laboratory Data Attestation: I reviewed the patient's lab results. Result diagrams: 11/27/21 22:40 11/27/21 22:40 Labs: Lab Results 11/27/21 11/27/21 11/27/21 Range/Units 22:40 22:40 22:43 WBC 5.57 (4.8-10.8) K/uL RBC 5.13 (4.2-5.4) M/uL Hgb 14.9 (12.0-16.0) g/dL POC Hgb 14.3 (12.0-16.0) g/dl Hct 43.1 (37-47) % POC Hct 42 (37-47) % MCV 84.0 (80-100) fL MCH 29.0 (25-34) pg MCHC 34.6 (32-36) g/dL Plt Count 265 (130-400) K/uL Immature Gran % (Auto) 0.5 % Neut % (Auto) 84.0 % Lymph % (Auto) 11.8 % [place] % (Auto) 3.1 % Eos % (Auto) 0.4 % Baso % (Auto) 0.2 % Neut # (Auto) 4.68 (1.4-6.5) K/uL Lymph # (Auto) 0.66 L (1.2-3.4) K/uL [place] # (Auto) 0.17 (0.11-0.59) K/uL Eos # (Auto) 0.02 (0-0.5) K/uL Baso # (Auto) 0.01 (0-0.2) K/uL Immature Gran # (Auto) 0.03 H (0.00-0.02) K/uL PT INR APTT PTT Ratio POC pH (7.35-7.45) POC pCO2 (35-46) mmHg POC pO2 (80-95) mmHg POC HCO3 (19-24) sidney/L POC Base Excess (-9-1.8) sidney/L POC ABG O2 Sat (90-95) % VBG pH (7.36-7.41) VBG pCO2 (38-50) mmHg VBG pO2 mmHg VBG HCO3 mmol/L VBG O2 Saturation % VBG Base Excess mEq/L POC Sodium 127 L (135-144) mmol/L Sodium 125 L (136-145) mmol/L POC Potassium 3.9 (3.3-5.0) mmol/L Potassium 4.0 (3.5-5.1) mmol/L POC Chloride 88 L (101-112) mmol/L Chloride 87 L (98-107) mmol/L Carbon Dioxide 24 (21-32) mmol/L POC Total CO2 23 L (24-31) mmol/L Anion Gap 14 H (3-11) POC Anion Gap 21.0 (16-25) mmol/L POC BUN 21 H (7-18) mg/dl BUN 22 (6-23) mg/dl Creatinine 1.28 H (0.6-1.2) mg/dl POC Creatinine 1.0 (0.6-1.3) mg/dl Est Cr Clr Drug Dosing 39.3 ml/min Est GFR ( Amer) 47.7 ml/min Est GFR (Non-Af Amer) 41.1 ml/min BUN/Creatinine Ratio 17.2 (10-20) Glucose 928 H* (70-99(Fasting)) mg/dl POC Glucose (70-99) mg/dl POC Glucose (other) > 700 H* (70-99) mg/dl Calcium 10.4 H (8.5-10.1) mg/dl POC Ioniz Calcium Delphine 1.27 (1.12-1.32) mmol/l Magnesium Total Bilirubin 0.6 (0.2-1.0) mg/dl AST 21 (13-39) U/L ALT 25 (7-52) U/L Alkaline Phosphatase 79 (34-104) U/L Troponin I High Sens 258.2 H* (0-14) pg/ml Total Protein 7.2 (6.0-8.3) gm/dl Albumin 3.9 (3.4-5.0) gm/dl Globulin 3.3 (2.5-4.0) gm/dl Albumin/Globulin Ratio 1.2 (0.9-2) Lipase 25 (11-82) U/L SARS-CoV-2, RNA, NAAT (NEGATIVE) 11/27/21 11/28/21 11/28/21 Range/Units 23:40 00:20 00:25 WBC (4.8-10.8) K/uL RBC (4.2-5.4) M/uL Hgb (12.0-16.0) g/dL POC Hgb (12.0-16.0) g/dl Hct (37-47) % POC Hct (37-47) % MCV (80-100) fL MCH (25-34) pg MCHC (32-36) g/dL Plt Count (130-400) K/uL Immature Gran % (Auto) % Neut % (Auto) % Lymph % (Auto) % [place] % (Auto) % Eos % (Auto) % Baso % (Auto) % Neut # (Auto) (1.4-6.5) K/uL Lymph # (Auto) (1.2-3.4) K/uL [place] # (Auto) (0.11-0.59) K/uL Eos # (Auto) (0-0.5) K/uL Baso # (Auto) (0-0.2) K/uL Immature Gran # (Auto) (0.00-0.02) K/uL PT INR APTT PTT Ratio POC pH 7.37 (7.35-7.45) POC pCO2 52 H (35-46) mmHg POC pO2 < 32 L (80-95) mmHg POC HCO3 30 H (19-24) sidney/L POC Base Excess 4.0 H (-9-1.8) sidney/L POC ABG O2 Sat 38.0 L (90-95) % VBG pH (7.36-7.41) VBG pCO2 (38-50) mmHg VBG pO2 mmHg VBG HCO3 mmol/L VBG O2 Saturation % VBG Base Excess mEq/L POC Sodium (135-144) mmol/L Sodium (136-145) mmol/L POC Potassium (3.3-5.0) mmol/L Potassium (3.5-5.1) mmol/L POC Chloride (101-112) mmol/L Chloride (98-107) mmol/L Carbon Dioxide (21-32) mmol/L POC Total CO2 31 (24-31) mmol/L Anion Gap (3-11) POC Anion Gap (16-25) mmol/L POC BUN (7-18) mg/dl BUN (6-23) mg/dl Creatinine (0.6-1.2) mg/dl POC Creatinine (0.6-1.3) mg/dl Est Cr Clr Drug Dosing ml/min Est GFR ( Amer) ml/min Est GFR (Non-Af Amer) ml/min BUN/Creatinine Ratio (10-20) Glucose (70-99(Fasting)) mg/dl POC Glucose > 600 H* (70-99) mg/dl POC Glucose (other) (70-99) mg/dl Calcium (8.5-10.1) mg/dl POC Ioniz Calcium Delphine (1.12-1.32) mmol/l Magnesium Total Bilirubin (0.2-1.0) mg/dl AST (13-39) U/L ALT (7-52) U/L Alkaline Phosphatase (34-104) U/L Troponin I High Sens (0-14) pg/ml Total Protein (6.0-8.3) gm/dl Albumin (3.4-5.0) gm/dl Globulin (2.5-4.0) gm/dl Albumin/Globulin Ratio (0.9-2) Lipase (11-82) U/L SARS-CoV-2, RNA, NAAT NEGATIVE (NEGATIVE) 11/28/21 11/28/21 11/28/21 Range/Units 01:21 01:39 02:17 WBC (4.8-10.8) K/uL RBC (4.2-5.4) M/uL Hgb (12.0-16.0) g/dL POC Hgb (12.0-16.0) g/dl Hct (37-47) % POC Hct (37-47) % MCV (80-100) fL MCH (25-34) pg MCHC (32-36) g/dL Plt Count (130-400) K/uL Immature Gran % (Auto) % Neut % (Auto) % Lymph % (Auto) % [place] % (Auto) % Eos % (Auto) % Baso % (Auto) % Neut # (Auto) (1.4-6.5) K/uL Lymph # (Auto) (1.2-3.4) K/uL [place] # (Auto) (0.11-0.59) K/uL Eos # (Auto) (0-0.5) K/uL Baso # (Auto) (0-0.2) K/uL Immature Gran # (Auto) (0.00-0.02) K/uL PT INR APTT PTT Ratio POC pH (7.35-7.45) POC pCO2 (35-46) mmHg POC pO2 (80-95) mmHg POC HCO3 (19-24) sidney/L POC Base Excess (-9-1.8) sidney/L POC ABG O2 Sat (90-95) % VBG pH (7.36-7.41) VBG pCO2 (38-50) mmHg VBG pO2 mmHg VBG HCO3 mmol/L VBG O2 Saturation % VBG Base Excess mEq/L POC Sodium (135-144) mmol/L Sodium (136-145) mmol/L POC Potassium (3.3-5.0) mmol/L Potassium (3.5-5.1) mmol/L POC Chloride (101-112) mmol/L Chloride (98-107) mmol/L Carbon Dioxide (21-32) mmol/L POC Total CO2 (24-31) mmol/L Anion Gap (3-11) POC Anion Gap (16-25) mmol/L POC BUN (7-18) mg/dl BUN (6-23) mg/dl Creatinine (0.6-1.2) mg/dl POC Creatinine (0.6-1.3) mg/dl Est Cr Clr Drug Dosing ml/min Est GFR ( Amer) ml/min Est GFR (Non-Af Amer) ml/min BUN/Creatinine Ratio (10-20) Glucose (70-99(Fasting)) mg/dl POC Glucose > 600 H* > 600 H* (70-99) mg/dl POC Glucose (other) (70-99) mg/dl Calcium (8.5-10.1) mg/dl POC Ioniz Calcium Delphine (1.12-1.32) mmol/l Magnesium Total Bilirubin (0.2-1.0) mg/dl AST (13-39) U/L ALT (7-52) U/L Alkaline Phosphatase (34-104) U/L Troponin I High Sens 962.3 H* D (0-14) pg/ml Total Protein (6.0-8.3) gm/dl Albumin (3.4-5.0) gm/dl Globulin (2.5-4.0) gm/dl Albumin/Globulin Ratio (0.9-2) Lipase (11-82) U/L SARS-CoV-2, RNA, NAAT (NEGATIVE) 11/28/21 11/28/21 11/28/21 Range/Units 02:19 03:21 03:21 WBC (4.8-10.8) K/uL RBC (4.2-5.4) M/uL Hgb (12.0-16.0) g/dL POC Hgb (12.0-16.0) g/dl Hct (37-47) % POC Hct (37-47) % MCV (80-100) fL MCH (25-34) pg MCHC (32-36) g/dL Plt Count (130-400) K/uL Immature Gran % (Auto) % Neut % (Auto) % Lymph % (Auto) % [place] % (Auto) % Eos % (Auto) % Baso % (Auto) % Neut # (Auto) (1.4-6.5) K/uL Lymph # (Auto) (1.2-3.4) K/uL [place] # (Auto) (0.11-0.59) K/uL Eos # (Auto) (0-0.5) K/uL Baso # (Auto) (0-0.2) K/uL Immature Gran # (Auto) (0.00-0.02) K/uL PT INR APTT PTT Ratio POC pH (7.35-7.45) POC pCO2 (35-46) mmHg POC pO2 (80-95) mmHg POC HCO3 (19-24) sidney/L POC Base Excess (-9-1.8) sidney/L POC ABG O2 Sat (90-95) % VBG pH 7.34 L (7.36-7.41) VBG pCO2 49 (38-50) mmHg VBG pO2 32 mmHg VBG HCO3 26 mmol/L VBG O2 Saturation < 60.0 % VBG Base Excess -0.3 mEq/L POC Sodium (135-144) mmol/L Sodium Cancelled (136-145) mmol/L POC Potassium (3.3-5.0) mmol/L Potassium Cancelled (3.5-5.1) mmol/L POC Chloride (101-112) mmol/L Chloride Cancelled (98-107) mmol/L Carbon Dioxide Cancelled (21-32) mmol/L POC Total CO2 (24-31) mmol/L Anion Gap Cancelled (3-11) POC Anion Gap (16-25) mmol/L POC BUN (7-18) mg/dl BUN Cancelled (6-23) mg/dl Creatinine Cancelled (0.6-1.2) mg/dl POC Creatinine (0.6-1.3) mg/dl Est Cr Clr Drug Dosing Cancelled ml/min Est GFR ( Amer) Cancelled ml/min Est GFR (Non-Af Amer) Cancelled ml/min BUN/Creatinine Ratio Cancelled (10-20) Glucose Cancelled (70-99(Fasting)) mg/dl POC Glucose > 600 H* (70-99) mg/dl POC Glucose (other) (70-99) mg/dl Calcium Cancelled (8.5-10.1) mg/dl POC Ioniz Calcium Delphine (1.12-1.32) mmol/l Magnesium Cancelled Total Bilirubin (0.2-1.0) mg/dl AST (13-39) U/L ALT (7-52) U/L Alkaline Phosphatase (34-104) U/L Troponin I High Sens (0-14) pg/ml Total Protein (6.0-8.3) gm/dl Albumin (3.4-5.0) gm/dl Globulin (2.5-4.0) gm/dl Albumin/Globulin Ratio (0.9-2) Lipase (11-82) U/L SARS-CoV-2, RNA, NAAT (NEGATIVE) 11/28/21 11/28/21 Range/Units 03:21 03:30 WBC (4.8-10.8) K/uL RBC (4.2-5.4) M/uL Hgb (12.0-16.0) g/dL POC Hgb (12.0-16.0) g/dl Hct (37-47) % POC Hct (37-47) % MCV (80-100) fL MCH (25-34) pg MCHC (32-36) g/dL Plt Count (130-400) K/uL Immature Gran % (Auto) % Neut % (Auto) % Lymph % (Auto) % [place] % (Auto) % Eos % (Auto) % Baso % (Auto) % Neut # (Auto) (1.4-6.5) K/uL Lymph # (Auto) (1.2-3.4) K/uL [place] # (Auto) (0.11-0.59) K/uL Eos # (Auto) (0-0.5) K/uL Baso # (Auto) (0-0.2) K/uL Immature Gran # (Auto) (0.00-0.02) K/uL PT Cancelled INR Cancelled APTT Cancelled PTT Ratio Cancelled POC pH (7.35-7.45) POC pCO2 (35-46) mmHg POC pO2 (80-95) mmHg POC HCO3 (19-24) sidney/L POC Base Excess (-9-1.8) sidney/L POC ABG O2 Sat (90-95) % VBG pH (7.36-7.41) VBG pCO2 (38-50) mmHg VBG pO2 mmHg VBG HCO3 mmol/L VBG O2 Saturation % VBG Base Excess mEq/L POC Sodium (135-144) mmol/L Sodium (136-145) mmol/L POC Potassium (3.3-5.0) mmol/L Potassium (3.5-5.1) mmol/L POC Chloride (101-112) mmol/L Chloride (98-107) mmol/L Carbon Dioxide (21-32) mmol/L POC Total CO2 (24-31) mmol/L Anion Gap (3-11) POC Anion Gap (16-25) mmol/L POC BUN (7-18) mg/dl BUN (6-23) mg/dl Creatinine (0.6-1.2) mg/dl POC Creatinine (0.6-1.3) mg/dl Est Cr Clr Drug Dosing ml/min Est GFR ( Amer) ml/min Est GFR (Non-Af Amer) ml/min BUN/Creatinine Ratio (10-20) Glucose (70-99(Fasting)) mg/dl POC Glucose 523 H* (70-99) mg/dl POC Glucose (other) (70-99) mg/dl Calcium (8.5-10.1) mg/dl POC Ioniz Calcium Delphine (1.12-1.32) mmol/l Magnesium Total Bilirubin (0.2-1.0) mg/dl AST (13-39) U/L ALT (7-52) U/L Alkaline Phosphatase (34-104) U/L Troponin I High Sens (0-14) pg/ml Total Protein (6.0-8.3) gm/dl Albumin (3.4-5.0) gm/dl Globulin (2.5-4.0) gm/dl Albumin/Globulin Ratio (0.9-2) Lipase (11-82) U/L SARS-CoV-2, RNA, NAAT (NEGATIVE) MDM Narrative Prior records/ancillary studies reviewed. Triage Nursing notes reviewed. Additional history obtained from nursing. The patient's history was concerning for chest pain. Differential diagnosis: Etiologies such as cardiac ischemia, aortic dissection, pulmonary embolism, p neumonia, pneumothorax, musculoskeletal, infections, pericarditis, myocarditis, esophageal rupture, gastrointestinal, as well as others were entertained. Physical examination: As above. ER treatment provided: An order was placed for continuous cardiac monitoring. The monitor shows a rate of 60-1 50 with a sinus rhythm. GI cocktail, morphine, IV fluids, Zofran, nitroglycerin Insulin drip and bolus EMS gave aspirin nitroglycerin Zofran with no change or symptoms On reassessment the patient felt better. Diagnostic interpretation by me: #1 the electrocardiogram was ordered for chest pain EKG: Poor baseline, normal sinus, normal intervals, minimal ST depression in the lateral leads, rate of 117. Impression sinus tachycardia with minimal ST depressions in the lateral leads most likely rate dependent interpreted by myself I think arrhythmia is unlikely. EKG shows normal sinus rhythm with no interval abnormalities such as QT prolongation or WPW. There are no findings to suggest Brugada syndrome. Cardiac monitoring in the emergency department reveals no tachycardic or bradycardic dysrhythmia. Hypertrophic cardiomyopathy was considered but there are no clear historical elements pointing toward this. EKG is not suggestive. The QRS voltage is not extremely large and there are no suggestive Q waves. #2 EKG ordered for elevated troponin EKG: Normal sinus, normal intervals, T wave flattening in the lateral leads, rate of 100. Impression sinus rhythm with T wave flattening the lateral leads interpreted by myself I think arrhythmia is unlikely. EKG shows normal sinus rhythm with no interval abnormalities such as QT prolongation or WPW. There are no findings to suggest Brugada syndrome. Cardiac monitoring in the emergency department reveals no tachycardic or bradycardic dysrhythmia. Hypertrophic cardiomyopathy was considered but there are no clear historical elements pointing toward this. EKG is not suggestive. The QRS voltage is not extremely large and there are no suggestive Q waves. The labs revealed severe hyperglycemia and ABG was reviewed with a stable pH Hyperglycemia Elevated troponin and repeat was ordered and higher concerning for NSTEMI Imaging studies: Preliminary Findings Only See Final Report For Complete Findings CTA OTHER - CTA CHEST DISSECTION WITHOUT/WITH: Comparison: CT chest 08/09/19 No thoracic aortic intramural hematoma, aneurysm, or dissection. No pulmonary embolism. Esophageal wall thickening suggesting esophagitis. Normal heart size. Coronary artery atherosclerosis. No significant pericardial effusion. No adenopathy. No airspace consolidation, pleural effusion, or pneumothorax. No acute osseous findings. Radiologist: Blaine Rivas M.D. HEART SCORE: Hx: high/mod/low suspicion: 1 ECG: ST depression/nonspecific changes/normal: 1 Age: Greater than 65/45-64/less than 45: 2 Risk factors: (Hypertension, hyperlipidemia, diabetes, coronary disease, tobacco use, cocaine use): 2 Troponin: Greater than 2 times normal limits/1-2 times normal limits/normal: 2 Total: 8 Consultation: A consultation was placed with the hospitalist. The case was discussed and diagnostics were reviewed. The patient was evaluated in the ER for further treatment. Exam and history seem consistent with NSTEMI with poorly controlled hyperglycemia. Repeat troponin is much higher Repeat EKG is unchanged. Medicine was consulted. Patient will be admitted. Medicine team wrote for the heparin. By the evaluation outlined above emergent etiologies such as aortic dissection, pulmonary embolism, pneumonia, pneumothorax, infections, pericarditis, myocarditis, gastrointestinal, as well as others were deemed relatively unlikely. The pt informed about the findings as listed above. All questions were answered and pleased with the treatment. The chart was completed utilizing [employer] Speech voice recognition software. Grammatical errors, random word insertions, pronoun errors, and incomplete sentences are an occassional consequence of this system due to software limita tions, ambient noise, and hardware issues. Any formal questions or concerns about the content, text, or information contained within the body of this dictation should be directly addressed to the physician data assistant for clarification. Impression & Plan Acute non-ST elevation myocardial infarction (NSTEMI), Hyperglycemia due to type 2 diabetes mellitus Discharge Plan Visit Data Chief Complaint: Chest Pain ED Provider: Bhupinder Stanley ED Midlevel Provider: Imelda Samaniego Discharge Problem: Acute non-ST elevation myocardial infarction (NSTEMI), Hyperglycemia due to type 2 diabetes mellitus Patient Disposition: Admitted As Inpatient Condition: Fair Forms Stand Alone Forms: Vend Prescriptions Prescriptions: No Action nitroglycerin [Nitrostat] 0.4 mg Tablet, Sublingual 0.4 mg Sublingual UD PRN (Reason: Chest Pain) Qty: 0 RF: 0 omega 1-acr-ixu-fish oil [Fish Oil] 1,000 mg (120 mg-180 mg) Capsule 1,000 mg PO QAM Qty: 0 RF: 0 cholecalciferol (vitamin D3) [Vitamin D3] 1,000 unit capsule 1,000 units PO QAM Qty: 0 RF: 0 rosuvastatin 40 mg tablet 40 mg PO QAM Qty: 90 RF: 3 (DME) OneTouch Verio test strips Strip See Dose Instructions .ROUTE .MEDSUPPLY Qty: 200 RF: 3 duloxetine 30 mg capsule,delayed release(DR/EC) 30 mg PO QAM Qty: 90 RF: 3 isosorbide mononitrate 30 mg tablet extended release 24 hr 60 mg PO QAM Qty: 180 RF: 3 carvedilol 6.25 mg tablet 6.25 mg PO BID Qty: 180 RF: 3 pantoprazole 40 mg tablet,delayed release (DR/EC) 40 mg PO BID Qty: 60 RF: 2 buspirone 10 mg tablet 10 mg PO TID Qty: 270 RF: 1 metformin 500 mg tablet 1,000 mg PO BID Qty: 120 RF: 6 albuterol sulfate [Ventolin HFA] 90 mcg/actuation HFA aerosol inhaler 2 puff inhalation QID PRN (Reason: shortness of breath or wheezing) Qty: 8.5 RF: 1 (DME) pen needle, diabetic [BD Ultra-Fine [place] Pen Needle] 32 gauge x 5/32" needle See Rx Instructions .ROUTE .MEDSUPPLY RF: 0 ondansetron HCl 4 mg tablet 4 mg PO Q8H PRN (Reason: nausea and vomiting) Qty: 30 RF: 0 diclofenac sodium [Arthritis Pain (diclofenac)] 1 % gel 2 g topical QID RF: 0 Linzess 145 mcg capsule 145 mcg PO QAM PRN (Reason: Constipation) RF: 0 insulin aspart U-100 [Novolog Flexpen U-100 Insulin] 100 unit/mL (3 mL) insulin pen 20 unit subcut DAILY Qty: 2 RF: 3 lisinopril 10 mg tablet 10 mg PO QAM Qty: 90 RF: 3 famotidine 20 mg tablet 20 mg PO BID Qty: 180 RF: 2 (DME) FreeStyle Renan 2 Sensor Kit See Rx Instructions .Route RF: 0 (DME) FreeStyle Renan 2 [place] Misc See Rx Instructions .Route RF: 0 chlorthalidone 25 mg tablet 25 mg PO DAILY Qty: 30 RF: 2 betamethasone acet,sod phos 6 mg/mL suspension 12 mg intra-articular ONCE Qty: 2 RF: 0 gabapentin 100 mg capsule 100 mg PO HS Qty: 30 RF: 0 ezetimibe [Zetia] 10 mg tablet 10 mg PO QAM Qty: 90 RF: 3 Gvoke HypoPen 2-Pack 1 mg/0.2 mL auto-injector 1 mg subcut .COMPLEX Qty: 0.4 RF: 0 Tresiba FlexTouch U-100 100 unit/mL (3 mL) insulin pen 33 unit SQ QPM RF: 0 aspirin 81 mg Tablet,Delayed Release (Dr/Ec) 81 mg PO QAM RF: 0 folic acid 1 mg Tablet 1 mg PO QAM 30 Days Qty: 30 RF: 0 Referrals Referrals: Lalito Pimentel MD [Primary Care Provider] -
[2021-11-27 23:41] LABS: Albumin Globulin Ratio 1.2 (0.9-2); Albumin Level 3.9 gm/dl (3.4-5.0); BUN Creatinine Ratio 17.2 (10-20); Bilirubin,Total 0.6 mg/dl (0.2-1.0); Calcium 10.4 mg/dl (8.5-10.1); Creatinine Clr Calc Pharmacy 39.3 ml/min; Est GFR (African American) 47.7 ml/min; Est GFR (Non-African American) 41.1 ml/min; Globulin 3.3 gm/dl (2.5-4.0); Total Protein 7.2 gm/dl (6.0-8.3); Troponin I High Sensitivity 258.2 pg/ml (0-14)
[2021-11-27] MEDS ORDERED: NITROGLYCERIN SL 0.4 MG/TAB TAB SL STA (23:44)
[2021-11-27 23:53] LABS: iSTAT Arterial Blood Gas HCO3 30 meg/L (19-24); iSTAT Arterial Blood Gas pCO2 52 mmHg (35-46); iSTAT Arterial Blood Gas pH 7.37 (7.35-7.45); iSTAT Arterial Blood Gas pO2 < 32 mmHg (80-95); iSTAT Carbon Dioxide 31 mmol/L (24-31)
--- NOTE | 2021-11-28 00:07 | Emergency Department Note ---
ED Visit Note Patient was seen and evaluated at the bedside w/ Shira Samnaiego PA-C. Please see their note for history, physical, details, and disposition. Significant hyperglycemia. The patient was admitted to the medicine service. .
[2021-11-28] MEDS ORDERED: STAT INSULIN DRIP STA (00:09)
[2021-11-28] MEDS ORDERED: DEXTROSE 50% 50 ML SYRINGE IV PRN (00:09)
[2021-11-28] MEDS ORDERED: GLUCOSE 40% GEL 15 GM TUBE PO PRN (00:09)
[2021-11-28] MEDS ORDERED: CARBOHYDRATES FOR HYPOGLYCEMIA PO PRN (00:09)
[2021-11-28] MEDS ORDERED: HHS GOAL RANGE 250-350 mg/dl ONE ×2 (00:09→10:10)
[2021-11-28] MEDS ORDERED: GLUCOSE 10 TABS/TUBE PO PRN (00:09)
[2021-11-28] MEDS ORDERED: GLUCAGON FOR INJ 1 MG VIAL SQ PRN (00:09)
[2021-11-28] MEDS ORDERED: NovoLIN-R INSULIN PER UNIT CHARGE IV STA (00:10)
[2021-11-28] MEDS ORDERED: INSULIN REGULAR 250 UNITS in SODIUM CHLORIDE 0.9% 247.5 ML IV SCH (00:15)
[2021-11-28] MEDS ORDERED: OPTIRAY 320 125ml IV ONE (00:24)
[2021-11-28] MEDS ORDERED: NITROGLYCERIN 2% OINTMENT 30GM TUBE EXT ONE (00:26)
--- NOTE | 2021-11-28 00:41 | History & Physical Report ---
Date of Service November 28, 2021 Assessment & Plan (1) NSTEMI (non-ST elevated myocardial infarction): Plan: 76 year old female w/ CAD s/p 3 stents and poorly controlled IDDM who presents for sharp midsternal chest pain concerning for NSTEMI w/ her cardiac hx, the persistence of symptoms despite nitro, and the uptrending high sensitivity troponin 258->[id number]. - most likely etiology is cardiac despite reproducible chest wall tenderness. less likely related to GERD/Barretts, but considered - repeated ecg. no st elevation. check ecg in AM - provided dose of IV metoprolol - heparin drip standard wt based w/ 3000u bolus ordered. patient denies contraindications. coags pending - patient is on home high intensity statin - s/p asa and nasal nitro in the field - may have been precipitated by uncontrolled hyperglycemia - TTE in AM - consult cardiology - trend trop (2) Hyperglycemia: Plan: - 928 in the ED - s/p 10u IV insulin push and ~2 hours of IV insulin drip 8u/hr. BSG 500s. Insulin drip discontinued in context of nstemi. ABG pH 7.37 and AG 14 noted. - providing 16u of lantus x 1 dose. Per home regimen of 40u qhs Tresiba, would give 80% as lantus = 16u BID lantus - q1h bsg checks - K repletion as needed. ordered 2 x 10meq IV KCl - repeat BMP pending, redrawing because sample hemolyzed - consult DM educator (3) Sinus tachycardia: Plan: - likely in context of NSTEMI and hyperglycemia - CTA neg for PE (4) Uncontrolled type 2 diabetes mellitus with neurologic complication, with long-term current use of insulin: Plan: - a1c 12.4 10/2021 - home regimen per 11/13/21 endocrine visit Tresiba 40u qhs (increased from 33u since 11/13/21). Novolog 01/20/12u w/ meals + sliding scale. Patient also had phone visit w/ DM educator on 11/20/21. Still in process of adjusting regimen. (5) GERD (gastroesophageal reflux disease): Plan: - w/ Mckeon's esophagus - continue home PPI and famotidine (6) HTN (hypertension): Plan: - hold home regimen. beta stephani for nstemi. 12.5mg PO BID (7) CAD (coronary artery disease): Plan: - stents of RCA, LAD, and L circumflex. cardiac cath->stenting procedure on 3 separate occasions in [id number] - follows Dr. Jules from [facility] cardiology (8) Depression: Plan: - stable, continue home regimen (9) IBS (irritable bowel syndrome): Plan: - hold home Linzess (10) Pseudohyponatremia: (11) Acute kidney injury: Plan: - Plan: FEN/GI: NPO. LR 150 mL/hr anticoag: heparin drip code: DNR/DNI dispo: pcu History of Present Illness Chief Complaint: chest pain Primary Care Provider: Lalito Pimentel MD 76 year old female w/ CAD s/p 3 stents and poorly controlled IDDM, gastroparesis, HTN, GERD, and Mckeon's esophagus who presents for sharp midsternal chest pain. She has had recurrent episodes since 11/26/21, 8 to 10/10 intensity. There is some L shoulder soreness. No associated jaw numbness, diaphoresis, palpitations. There is some dyspnea on exertion. She has increased burping and belching. Current chest pain level 6/10 severity, improving. pleuritic. exertional. not affected by eating or position. Patient has had intermittent chest pains for years, but milder and less frequent than the recent episodes. Unsure if feels similar when she had ND in the past. No recent illness. + mild n/v. She states she quit tobacco use in her late 50s after she had the stents. Her current chest pain level is 6/10, milder than earlier, but still present. She current has nitro paste applied. She was admitted to [facility] last month for fall and L ankle sprain. Her DM was found to be uncontrolled w/ A1c of 12.4. Since that visit, she states she had been at her baseline health and levels of activity. She walks with walker. She then saw her colorist 2 weeks ago who increased her regimen. She did not take her home insulin today as she had a f/u appointment w/ ortho. ED course: Patient presented w/ BSG of 928, pseudohyponatremia 125, poc abg 7.37, and anion gap of 14. She was given 10 units of IV insulin and started on Insulin drip in the ED, since discontinued. Allergies Allergy/AdvReac Type Severity Reaction Status Date / Time cephalexin Allergy Intermediate Rash and Verified 11/27/21 23:31 itchiness Cephalosporins Allergy Intermediate Rash and Verified 11/27/21 23:31 itchiness Sulfa (Sulfonamide Allergy Intermediate Hives Verified 11/27/21 23:31 Antibiotics) Home Medications Medication Instructions Recorded Confirmed Type nitroglycerin 0.4 mg sublingual 0.4 mg SUBLINGUAL UD PRN #0 btl 07/27/17 11/27/21 History tablet (Nitrostat) omega 4-kas-ego-fish oil 1,000 mg 1,000 mg PO QAM #0 cap 07/27/17 11/27/21 History (120 mg-180 mg) capsule (Fish Oil) cholecalciferol (vitamin D3) 25 1,000 units PO QAM #0 tab 04/05/19 11/27/21 History mcg (1,000 unit) capsule (Vitamin D3) linaclotide 145 mcg capsule 145 mcg PO QAM PRN cap 04/05/19 11/27/21 History (Linzess) rosuvastatin 40 mg tablet 40 mg PO QAM #90 tab 07/18/20 11/27/21 Rx pen needle, diabetic 32 gauge x ea 11/18/20 11/18/21 History 532" (BD Ultra-Fine [place] Pen Needle) insulin aspart U-100 100 unit/mL 20 unit SUBCUT DAILY #2 box 01/21/21 11/27/21 Rx (3 mL) subcutaneous pen (Novolog Flexpen U-100 Insulin aspart) insulin degludec 100 unit/mL (3 33 unit SQ QPM 03/26/21 11/27/21 History mL) subcutaneous pen (Tresiba FlexTouch U-100 insulin) famotidine 20 mg tablet 20 mg PO BID #180 tab 05/07/21 11/27/21 Rx lisinopril 10 mg tablet 10 mg PO QAM #90 tab 05/07/21 11/27/21 Rx ondansetron HCl 4 mg tablet 4 mg PO Q8H PRN #30 tab 06/24/21 11/27/21 Rx flash glucose scanning reader 06/26/21 11/18/21 History (FreeStyle Renan 2 [place]) flash glucose sensor (FreeStyle 06/26/21 11/18/21 History Renan 2 Sensor) blood sugar diagnostic (OneTouch #200 ea 08/14/21 11/18/21 Rx Verio test strips) carvedilol 6.25 mg tablet 6.25 mg PO BID #180 tab 08/19/21 11/27/21 Rx duloxetine 30 mg capsule,delayed 30 mg PO QAM #90 cap 08/19/21 11/27/21 Rx release isosorbide mononitrate 30 mg 60 mg PO QAM #180 tab 08/19/21 11/27/21 Rx tablet,extended release 24 hr chlorthalidone 25 mg tablet 25 mg PO DAILY #30 tab 08/26/21 11/27/21 Rx aspirin 81 mg tablet,delayed 81 mg PO QAM 10/24/21 11/27/21 History release folic acid 1 mg tablet 1 mg PO QAM 30 Days #30 tab 10/30/21 11/27/21 Rx diclofenac sodium 1 % topical gel 2 g TOPICAL QID 10/31/21 11/27/21 History (Arthritis Pain (diclofenac)) Gvoke HypoPen 2-Pack 1 mg/0.2 mL 1 mg SUBCUT .COMPLEX #0.4 ml NS 11/03/21 11/27/21 Rx subcutaneous auto-injector (glucagon) ezetimibe 10 mg tablet (Zetia) 10 mg PO QAM #90 tab 11/03/21 11/27/21 Rx gabapentin 100 mg capsule 100 mg PO HS #30 cap 11/03/21 11/27/21 Rx pantoprazole 40 mg tablet,delayed 40 mg PO BID #60 tab 11/03/21 11/27/21 Rx release buspirone 10 mg tablet 10 mg PO TID #270 tab 11/06/21 11/27/21 Rx metformin 500 mg tablet 1,000 mg PO BID #120 tab 11/07/21 11/27/21 Rx albuterol sulfate 90 mcg/actuation 2 puff INHALATION QID PRN #8.5 g 11/20/21 11/27/21 Rx aerosol inhaler (Ventolin HFA) Past Med/Surg History Medical History Mckeon esophagus CAD (coronary artery disease) s/p stents to RCA November 2005; s/p stents to LAD, LCx in January 2006; s/p stents to RCA in 08/2006 Cervical pain (neck) Chest pain Chronic pain syndrome Depression Diabetes mellitus, type 2 IDDM Diabetic gastroparesis Diabetic peripheral neuropathy Dyslipidemia Folic acid deficiency GERD without esophagitis HTN (hypertension) IBS (irritable bowel syndrome) Lumbar spondylosis Migraine headache Myocardial Infarction ND- November 2005, January 2006, Aug 2006 3 total within an 8 month span--HX OF CATH 2012 [facility], FOLLOWS WITH DR. JULES Non-ST elevation (NSTEMI) myocardial infarction Obesity Sprain of left foot Sprain of left foot Vitamin B12 deficiency Vitamin D deficiency Surgical History History of cardiac cath last 2012 @ [facility], no stents--s/p stents to RCA November 2005; s/p stents to LAD, LCx in January 2006; s/p stents to RCA in 08/2006 History of cataract surgery BL History of cholecystectomy History of colonoscopy with polypectomy History of esophageal dilatation History of esophagogastroduodenoscopy (EGD) History of lumbar spinal fusion History of tooth extraction all teeth History of total hysterectomy with bilateral salpingo-oophorectomy (BSO) History of total right knee replacement (TKR) S/P coronary artery stent placement s/p stents to RCA November 2005; s/p stents to LAD, LCx in January 2006; s/p stents to RCA in 08/2006 Status post trigger finger release right thumb Family History Brother Myocardial infarction Anxiety Heart disease Hypertension Cancer Sister Family history of reaction to anesthesia difficulty waking Hypertension Heart disease Myocardial infarction Anxiety Cancer Diabetes Father Anxiety Heart disease Hypertension Mother Anxiety Hypertension Heart disease Unknown Cancer skin, GI Denies family history of Ovarian cancer Prostate cancer Breast cancer Colorectal cancer Stroke Social History Smoking Status: Former smoker Tobacco Type: Cigarettes Age Started Using Tobacco: 18; Age Quit Using Tobacco: 57; Cigarettes Per Day: 3 cigarettes a week; Second Hand Exposure: No; Hx Alcohol Use: No Hx Substance Use: Yes Preferred Language: Pakistani Communication Ability: Effective Visual Impairment: Limited Hearing Ability: Normal Broth Mixer Required: No Beliefs That Will Affect Care: None marital status: / Current Living Situation: Spouse Current Living Situation Comment: apartment building current occupational status: retired and disabled How many Children do You have: 3 Feels Safe at Home: Yes Childhood Exposure to Second-Hand Smoke: No caffeine: Yes (drinks coffee, diet pepsi occasionally ) Dental Care, Regularly: No Physical Activity Frequency: Does not Exercise Seatbelt Use: always Sunscreen Use: No Assistive Devices: Denture - Upper and Glasses Review of Systems Review of Systems: All systems reviewed & are unremarkable except as noted in HPI & below + moderate headache Denies urinary symptoms Physical Exam Physical Exam: General: Grossly A&O. NAD. Cooperative. HEENT: Atraumatic, normocephalic. EOMI Pulm: CTAB. -wheezes, -rales, -rhonchi. No respiratory distress. Cardiac: RRR, -mrg. Radial pulses intact and symmetrical. puffy ankles, no pitting edema Abdominal: Nontender, nondistended, soft. Msk: Reproducible chest pain at sternum Integ: Warm, dry, intact Results & Data Results & Data ([facility]) Vital Signs (Past 12 Hours) Vital Signs Temp Pulse Pulse Resp BP BP Pulse Ox 11/28/21 00:15 37.4 C 105 H 18 161/97 H 94 11/27/21 23:38 18 190/131 H 95 11/27/21 22:48 94 11/27/21 22:34 37.2 C 117 H 26 H 199/124 H 94 Temp Pulse Resp BP Pulse Ox 37.4 C 80 16 121/69 96 11/28/21 00:15 11/28/21 03:49 11/28/21 03:49 11/28/21 03:49 11/28/21 03:49 Laboratory Results 11/27/21 22:40 11/27/21 22:40 Cardiac Enzymes 11/27/21 Range/Units 22:40 AST 21 (13-39) U/L CBC 11/27/21 Range/Units 22:40 WBC 5.57 (4.8-10.8) K/uL RBC 5.13 (4.2-5.4) M/uL Hgb 14.9 (12.0-16.0) g/dL Hct 43.1 (37-47) % Plt Count 265 (130-400) K/uL Neut # (Auto) 4.68 (1.4-6.5) K/uL Lymph # (Auto) 0.66 L (1.2-3.4) K/uL [place] # (Auto) 0.17 (0.11-0.59) K/uL Eos # (Auto) 0.02 (0-0.5) K/uL Baso # (Auto) 0.01 (0-0.2) K/uL Comprehensive Metabolic Panel 11/27/21 Range/Units 22:40 Sodium 125 L (136-145) mmol/L Potassium 4.0 (3.5-5.1) mmol/L Chloride 87 L (98-107) mmol/L Carbon Dioxide 24 (21-32) mmol/L BUN 22 (6-23) mg/dl Creatinine 1.28 H (0.6-1.2) mg/dl Glucose 928 H* (70-99(Fasting)) mg/dl Calcium 10.4 H (8.5-10.1) mg/dl AST 21 (13-39) U/L ALT 25 (7-52) U/L Alkaline Phosphatase 79 (34-104) U/L Total Protein 7.2 (6.0-8.3) gm/dl Albumin 3.9 (3.4-5.0) gm/dl Intake and Output 11/27/21 11/27/21 11/28/21 14:59 22:59 06:59 Other: Weight 82.8 kg 82.8 kg Patient Weight 11/28/21 06:59 Weight 82.8 kg Diagnostic Findings statrad Preliminary Findings Only - See Final Report For Complete Findings CTA OTHER - CTA CHEST DISSECTION WITHOUT/WITH: Comparison: CT chest 08/09/19 No thoracic aortic intramural hematoma, aneurysm, or dissection. No pulmonary embolism. Esophageal wall thickening suggesting esophagitis. Normal heart size. Coronary artery artherosclerosis. No significant pericardial effusion. No adenopathy. No airspace consolidation, pleural effusion, or pneumothorax. No acute osseous findings. Radiologist Blaine Rivas MD. Study ready at 00:20 and initial results transmitted at 00:28 ECG Additional Comments: ecg at 0253 per my read: NSR 95. Normal LA interval. QTc 477. Normal axis Nonspecific ST-T changes. No ST elevation. Code Status & VTE Plan Code Status DNR/DNI VTE Prophylaxis Plan VTE Prophylaxis will be ordered: Yes Supervising Physician Co-Signing Physician Notes Attending addendum: I have physically seen this patient, have supervised the medical residents activities, and agree with the H&P unless as otherwise noted. Assessment and Plan: Non-STEMI- The patient will be admitted to telemetry for serial cardiac enzymes, serial EKG's, cardiac rhythm monitoring and a 2-D echocardiogram with Dopplers. Start heparin drip standard concentration with bolus not exceed 3000 IU High-dose statin Metoprolol IV as noted Status post aspirin and nasal nitroglycerin in the field Consult cardiology Hyperglycemia in diabetes- Insulin drip begun in ED Discontinue insulin drip as noted Lantus insulin as noted Accu-Cheks with NovoLog per scale acute 1 hour intervals until stable IV fluids Serial laboratories Follow potassium and other electrolytes closely Remaining orders and notations as noted Resident Activity Tracking Resident Involvement: Resident Care Provided Care Provided: Adult Hospital Medicine (1) CAD (coronary artery disease) Associated angina: angina presence unspecified Coronary Disease-Associated Artery/Lesion type: [place] artery [place] vs. transplanted heart: [place] heart Qualified Code(s): I25.10 - Atherosclerotic heart disease of [place] coronary artery without angina pectoris (2) GERD (gastroesophageal reflux disease) Esophagitis presence: without esophagitis Qualified Code(s): K21.9 - Gastro- esophageal reflux disease without esophagitis
[2021-11-28] MEDS ORDERED: Heparin IV Adult Wt-Based Standard *NO* Bolus Protocol IV ONE (02:38)
[2021-11-28] MEDS ORDERED: METOPROLOL TARTRATE 1 MG/ML VIAL IV STA (02:38)
[2021-11-28] MEDS ORDERED: LACTATED RINGER'S 1,000 ML IV SCH (02:45)
[2021-11-28] MEDS ORDERED: Heparin IV Adult Wt-Based Standard WITH Bolus Protocol IV SCH (02:47)
[2021-11-28] MEDS ORDERED: HEPARIN SOD (PORCINE) 1000 UNIT/ML IV ONE (02:57)
[2021-11-28 03:38] LABS: Base Excess VBG -0.3 mEq/L; HCO3 VBG 26 mmol/L; PCO2 VBG 49 mmHg (38-50); PO2 VBG 32 mmHg; pH VBG 7.34 (7.36-7.41)
[2021-11-28 03:40] LABS: Oxygen Saturation VBG < 60.0 %
[2021-11-28] MEDS ORDERED: INSULIN GLARGINE SOLOSTAR 100 UNITS/ML 3 ML PEN SC STA (03:50)
[2021-11-28] MEDS: POTASSIUM CHLORIDE / WTR 10 MEQ/100 ML PLCT IV SCH ×2 (05:25→06:27)
[2021-11-28] MEDS ORDERED: ALBUTEROL HFA 8 GM INHALER INH PRN (05:27)
[2021-11-28] MEDS ORDERED: ACETAMINOPHEN 325 MG TAB PO PRN (05:27)
[2021-11-28 05:36] LABS: BUN Creatinine Ratio 18.8 (10-20); Calcium 9.7 mg/dl (8.5-10.1); Creatinine Clr Calc Pharmacy 44.9 ml/min; Est GFR (Non-African American) 48.4 ml/min; Magnesium 1.2 mg/dl (1.7-2.4)
[2021-11-28] MEDS ORDERED: POTASSIUM CHLORIDE CRTAB 20 MEQ TABCR PO STA (05:46)
[2021-11-28] MEDS: MAGNESIUM SULFATE / D5W 1 GM/100 ML BAG IV SCH ×7 (05:55→20:25)
[2021-11-28 06:03] LABS: Partial Thromboplastin Time 26.8 Seconds (21.0-31.0); Prothrombin Time 10.9 Seconds (9.0-12.0)
[2021-11-28] MEDS: ONDANSETRON INJ 2 MG/ML 2 ML VIAL IV PRN (06:08)
[2021-11-28] MEDS: HEPARIN SODIUM/DEXTROSE 25,000 UNITS/500 ML BAG IV SCH (06:12)
[2021-11-28] MEDS: NITROGLYCERIN 2% OINTMENT 30GM TUBE EXT SCH ×2 (06:59→12:58)
[2021-11-28] MEDS ORDERED: ACETAMINOPHEN 1,000 MG/100 ML VIAL IV PRN (07:05)
[2021-11-28] MEDS ORDERED: MoRPHine SULFATE 2 MG/ML CARP IV PRN (07:06)
[2021-11-28] MEDS ORDERED: INSULIN ASPART PER UNIT SC STA (07:16)
--- NOTE | 2021-11-28 07:27 | Communication Note ---
Date of Service: November 28, 2021 pain control: IV tylenol 1000mg q8h prn ordered. morphine 2mg IV q6h prn for severe pain after failing tylenol only. consider nitro drip hyperglycemia. ~500 at 7AM. s/p 16u lantus at 5:23 AM. It likely has not taken full effect. I am ordering now dose of 7u aspart. Sliding scale aspart (goal 140-180, CF 40, CR 15) will be administered q4h starting at 11AM. BSG will be checked q2h starting 7AM. If patient is tolerating the above regimen by later afternoon, consider lantus 16u BID because home regimen is 40u Tresiba qhs. Reduce 20% when converting to lantus. Also consider further reduction because NPO. If needed, consider pharmacy glycemic consult.
[2021-11-28] MEDS ORDERED: INSULIN ASPART PER UNIT SC SCH ×3 (07:30→12:00)
[2021-11-28] MEDS ORDERED: POTASSIUM CHLORIDE 20 MEQ in LACTATED RINGER'S 1,000 ML IV SCH (08:00)
--- NOTE | 2021-11-28 08:06 | Hospitalist Progress Note ---
Date of Service November 28, 2021 Assessment & Plan (1) Acute non-ST elevation myocardial infarction (NSTEMI): Plan: 76 yo F Hx CAD s/p stents, HTN, HLD, DM2, GERD admitted for NSTEMI and suspected HHS. NSTEMI: Presented with chest pain midsternal radiating to left shoulder. Troponin trend [id number]->[id number]->[id number]. Cardiac catheterization performed this AM with evidence of severe multivessel disease without target areas for CABG consideration. Unlikely to be able to place stent given disease, however can be considered with Cardiology should patient's symptoms not improve with medical management. Continue heparin gtt for at least 48 hours post-catheterization. Plan for medical management given patient is poor CABG candidate and poor stent candidate. Medications as follows: Metoprolol 25mg BID Amlodipine 5mg daily Rosuvastatin 40mg daily Ezetimibe daily Lisinopril 10mg daily Aspirin 81mg daily Plavix daily Nitro prn chest pain Patient will need aggressive BSG control both now inpatient and on discharge to maintain her current level of cardiac disease; see below. Suspected HHS: History of uncontrolled DM2 with most recent A1c ~12; this is actually decreased from previous readings in the last several years. Presented to hospital with BSG 928. Initially received 10u regular insulin x1 and was briefly on insulin gtt. Continue IV fluids; currently on NSS at 150cc/hr. Last BSG 340; within HHS goal. Transition to basal (Lantus 20u BID) and bolus (see tight sliding scale) for DM2. Can titrate as necessary. DM2 diet. Aggressive diabetic education while admitted; patient is pre-contemplative about her role in dietary modification to aid in her BSG control. HLD: Continue statin and ezetimibe. HTN: Continue amlodipine, metoprolol, lisinopril. Adjust as necessary for BP control. GERD: Continue home PPI and H2. Code Status: DNR/DNI FEN: Heart healthy, DM2 diet DVT ppx: Heparin gtt Dispo: Telemetry (2) Hyperglycemia due to type 2 diabetes mellitus: (3) Anxiety: (4) GERD (gastroesophageal reflux disease): (5) HTN (hypertension): (6) Dyslipidemia: Admission and Anticipated Discharge Date Admission Date: November 28, 2021 Supervising Physician Co-Signing Physician Notes I personally examined the patient and verified all hathaway points of history and exam, discussed case, and agree with decision making with Dr Woodard Feeling better. Chest pain resolved. Offers very little understanding of how uncontrolled diabetes would be contributing to her current situation with her coronary disease. Vitals noted, in general she is awake and alert pleasant a bit fatigued no distress. HEENT normocephalic atraumatic mucous membranes moist. Breathing unlabored no accessory muscle use good effort. Skin shows no rashes no pallor or icterus. Neuro without focal deficits. Unstable angina/NSTEMI/severe coronary diseasefortunately symptoms resolved on aggressive med management. Continue for now. Cardiology discussing if interventions possible on lesionsbut given the severe and diffuse nature of her coronary disease, suspect largely we will have to do med management. Secondary risk reduction. See below. Uncontrolled type 2 diabetesappears to have many barriers to care, not the least of which is fairly significant lack of understanding of the implications of uncontrolled diabetesparticularly as it relates to her coronary disease. Tried to start the process of patient education, she noted a general lack of understandingI will certainly need to get to know her better, and some of it may be that she is simply groggy from having just been admitted/the procedure/etc.but I do wonder if some of it is a barrier of not wanting to understand so as to not need to face the daily responsibility of good sugar control. It is also possible she has a degree of cognitive dysfunction impairing her ability to understandin which case we will need to continue to try to encourage lifestyle change and medication adherencebut just in a way that would meet her level of understanding. In the meantime we will try to continue to educate, and made it quite clear to the patient that her current control of diabetes is extremely dangerous to her coronariesmade an analogy to smoking multiple packs a day. HHSprobable HHS, certainly hyperglycemic dehydration physiologyimproved with fluids and insulin, continue current management. Subjective This morning patient complains of chest pain that does seem to be worse with exertion, and she has had it off and on for the last several days. However, she notes that over the last several hours the pain is present, though not as severe, even at rest in the bed. She reports that sometimes the pain radiates into the left shoulder. The area where the pain is on the chest wall is somewhat tender as well. She denies current nausea or shortness of breath. UPDATE: patient is chest pain free following cardiac catheterization and is no longer on nitro gtt Review of Systems Review of Systems: All systems reviewed & are unremarkable except as noted in Subjective Physical Exam Constitutional: WD/WN, vitals as above Respiratory: normal respiratory effort, lungs clear to auscultation Cardiovascular: RRR, no murmur, trace bilateral LE edema at ankles Gastrointestinal (Abdomen): normal bowel sounds, soft, nontender, no hepatosplenomegaly Skin: no rashes, warm and dry Psychiatric: A+Ox3, euthymic affect Results & Data Results & Data ([facility]) Vital Signs (Past 12 Hours) Vital Signs Temp Pulse Pulse Pulse Resp BP BP 11/28/21 06:50 36.4 C L 79 18 145/87 H 11/28/21 06:00 79 16 136/95 11/28/21 03:49 80 16 121/69 11/28/21 03:25 83 83 16 126/78 11/28/21 03:15 83 136/84 11/28/21 02:01 95 H 134/93 11/28/21 01:28 99 H 22 138/112 H 11/28/21 00:15 37.4 C 105 H 18 161/97 H 11/27/21 23:38 18 190/131 H 11/27/21 22:48 11/27/21 22:34 37.2 C 117 H 26 H 199/124 H Pulse Ox 11/28/21 06:50 100 11/28/21 06:00 96 11/28/21 03:49 96 11/28/21 03:25 96 11/28/21 03:15 11/28/21 02:01 11/28/21 01:28 95 11/28/21 00:15 94 11/27/21 23:38 95 11/27/21 22:48 94 11/27/21 22:34 94 Resident Activity Tracking Resident Involvement: Resident Care Provided Care Provided: Adult Hospital Medicine (1) GERD (gastroesophageal reflux disease) Esophagitis presence: without esophagitis Qualified Code(s): K21.9 - Gastro- esophageal reflux disease without esophagitis (2) HTN (hypertension) Hypertension type: essential hypertension Qualified Code(s): I10 - Essential (primary) hypertension
--- NOTE | 2021-11-28 08:15 | CT Scan Report ---
CHEST CTA for AORTIC DISSECTION CT DOSE: 632.31 mGy.cm HISTORY: severe mid chest pain to back TECHNIQUE: Multiaxial CT images of the chest were performed both before and after the intravenous adm inistration of contrast to evaluate the aorta. Maximal intensity projection images were also obtained . A dose lowering technique was utilized adhering to the principles of ALARA. COMPARISON STUDY: Chest CTA 08/09/2019. FINDINGS: Noncontrast imaging through the chest shows no evidence for an intramural hematoma within t he thoracic aorta. Normal caliber thoracic aorta with no evidence for dissection. The central pulmona ry arteries are patent. No pleural or pericardial effusions. The heart is normal in size. No mediasti nal or hilar lymphadenopathy. The thyroid gland enhances normally. Moderate to severe circumferential thickening of the mid to distal esophagus with mild paraesophageal edema. Mildly distended and fluid -filled stomach. The visualized liver, spleen, and adrenal glands are unremarkable. No pneumomediasti num or pneumothorax. The central airways are patent. No focal lung consolidations to suggest pneumoni a. No fractures within the visualized osseous structures. Extensive calcified plaque within the coron alessio arteries. IMPRESSION: 1. No evidence for an aortic dissection. 2. The central pulmonary arteries are patent. 3. Moderate to severe circumferential thickening involving the mid to distal esophagus with mild para esophageal edema. This has progressed in the interval and favors a nonspecific esophagitis. GI consul tation recommended to exclude the less likely possibility of an underlying esophageal lesion. ACT 112: Positive. There are findings on this exam that require communication between the performing entity and the patient following Patient Test Result Information Act ([place] Act 112) guidelines. Electronically signed by: Vijay Vega M.D. 11/28/2021 8:13 AM
[2021-11-28] MEDS ORDERED: NITROGLYCERIN SL 0.4 MG/TAB TAB ONE (08:54)
--- NOTE | 2021-11-28 09:02 | Cardiology Consultation ---
Date of Consultation November 28, 2021 Assessment & Plan (1) Acute non-ST elevation myocardial infarction (NSTEMI): (2) CAD (coronary artery disease): (3) S/P coronary artery stent placement: (4) HTN (hypertension): (5) Dyslipidemia: ASSESSMENT/PLAN: 1. NSTEMI: Presenting with NSTEMI and ongoing chest discomfort. Recommend another dose of nitroglycerin. If continues to have pain, recommend nitroglycerin drip in place of nitropaste. Recommend urgent cardiac catheterization. Risks and benefits were discussed with her in detail. She was agreeable to undergo the procedure. She was made aware that CT surgery is not available at this facility. If remains hypertensive with additional nitroglycerin, can administer additional beta-stephani. Consider morphine for ongoing chest discomfort. Agree with heparin drip. Continue aspirin. 2. CAD s/p PCI (LAD, Cx OM, RCA): Continue aspirin, beta-stephani, ANNA- inhibitor, high-intensity statin therapy. Treatment as above. 3. Hypertension: Blood pressure currently mildly elevated. If blood pressure remains elevated following nitroglycerin, consider additional beta-stephani. 4. Dyslipidemia: Continue high-intensity statin therapy. 5. Esophagitis: Has reported dark stools. Has ongoing outpatient GI workup pending. Hemoglobin is normal. Recommend pursuing cardiac evaluation as above. 6. Diabetes: Severely elevated glucose on arrival. Defer to primary service. 7. Disposition: Cardiology will continue to follow. Cardiac catheterization today. Patient care discussed with Dr. Kline of the primary hospitalist service. Over the weekend, please call the on-call pattern molder for questions or concerns. On discharge, follow with Dr. Lau, her primary pattern molder. Highly complex medical issues. Thank you for allowing me to participate in the care of your patient. Please call for any other questions or concerns. Sincerely, Master Gonzalez M.D. History of Present Illness Reason for Consultation: "concern for NSTEMI" Requesting Physician: Dr. Epstein Attending Physician: Fadi Munoz DO History of Present Illness Ms. Rosas is a very pleasant 76-year-old female with a history significant for CAD s/p PCI (LAD, Cx, RCA), type 2 diabetes, dyslipidemia, and hypertension. 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 Her primary pattern molder is Dr. Lau. She has had myocardial infarction in the past and described angina as sharp substernal chest pain that radiates to the left arm. She has had the following studies/procedures: 1. Cardiac catheterization 11/30/2005 at [facility]: Mid RCA 90%. Distal RCA 70%. PCI x2 of RCA. 2. Cardiac catheterization January 2006 [facility]: Mid LAD 80% underwent 2.25 x 18 mm be EMS. Circumflex OM 80% underwent 2.5 x 12 mm Taxus. 3. Cardiac catheterization August 2006 [facility]: Severe proximal RCA stenosis underwent PCI. 4. Dobutamine stress echo 08/02/2020: Negative for ischemia 98% MPHR. 5. Echo [facility] 10/25/21: Normal LV size, wall motion, systolic function. EF 55-60%. No significant valvular abnormalities. She was admitted on 11/27/2021 after presenting with chest discomfort. She had been having recurrent symptoms since 11/26/2021. Since presentation, she has had constant chest discomfort. At home she took nitroglycerin x2 with no relief. EMS gave additional nitroglycerin with some improvement. Here, she received further nitroglycerin and each time she takes nitroglycerin, symptoms improved but they have not been completely resolved. The chest discomfort is substernal and radiates to her left shoulder and arm. In the past, she had described angina as substernal chest pain with radiation to the left arm. She has been placed on heparin drip by the primary hospitalist service as well as nitroglycerin paste. High sensitivity troponin was initially 258.2 with repeat 962 and then this morning 2404. Initial ECG was without significant ST/T-wave abnormality however she now has T-wave inversion in the inferior leads and more prominently in the anterolateral leads. She has had dark stool and has ongoing GI outpatient workup with repeat colonoscopy pending in 1 month. Despite concern for GI blood loss, her hemoglobin is normal. On presentation, her blood glucose level was greater than 900. She is being treated by primary hospitalist service. Electrolytes are being repleted. She denies syncope, near-syncope, palpitations, edema, hematochezia. She does have associated shortness of breath with her chest discomfort but no diaphoresis. Review of systems: As above. Review of systems otherwise negative/unremarkable. Family history:Mother at the age of 56. Father had CAD and hypertension. Seven brothers all from [place]. Has 4 sisters, 2 of which with [place]. Social history:She quit smoking approximately 50 years ago after 10 pack years. No significant alcohol. She was 3 times; x2 and x1. She lives alone. If unable to make her own decisions, she wishes Franck Ortega (friend) to make decisions for her. She has 4 children but states that they are not significantly in her life. She is retired. She was alone in her hospital room. Allergies Allergy/AdvReac Type Severity Reaction Status Date / Time cephalexin Allergy Intermediate Rash and Verified 11/27/21 23:31 itchiness Cephalosporins Allergy Intermediate Rash and Verified 11/27/21 23:31 itchiness Sulfa (Sulfonamide Allergy Intermediate Hives Verified 11/27/21 23:31 Antibiotics) Home Medications Medication Instructions Recorded Confirmed Type nitroglycerin 0.4 mg sublingual 0.4 mg SUBLINGUAL UD PRN #0 btl 07/27/17 11/27/21 History tablet (Nitrostat) omega 7-cts-fnh-fish oil 1,000 mg 1,000 mg PO QAM #0 cap 07/27/17 11/27/21 History (120 mg-180 mg) capsule (Fish Oil) cholecalciferol (vitamin D3) 25 1,000 units PO QAM #0 tab 04/05/19 11/27/21 History mcg (1,000 unit) capsule (Vitamin D3) linaclotide 145 mcg capsule 145 mcg PO QAM PRN cap 04/05/19 11/27/21 History (Linzess) rosuvastatin 40 mg tablet 40 mg PO QAM #90 tab 07/18/20 11/27/21 Rx pen needle, diabetic 32 gauge x ea 11/18/20 11/18/21 History 5/32" (BD Ultra-Fine [place] Pen Needle) insulin aspart U-100 100 unit/mL 20 unit SUBCUT DAILY #2 box 01/21/21 11/27/21 Rx (3 mL) subcutaneous pen (Novolog Flexpen U-100 Insulin aspart) insulin degludec 100 unit/mL (3 33 unit SQ QPM 03/26/21 11/27/21 History mL) subcutaneous pen (Tresiba FlexTouch U-100 insulin) famotidine 20 mg tablet 20 mg PO BID #180 tab 05/07/21 11/27/21 Rx lisinopril 10 mg tablet 10 mg PO QAM #90 tab 05/07/21 11/27/21 Rx ondansetron HCl 4 mg tablet 4 mg PO Q8H PRN #30 tab 06/24/21 11/27/21 Rx flash glucose scanning reader 06/26/21 11/18/21 History (FreeStyle Renan 2 Martha) flash glucose sensor (FreeStyle 06/26/21 11/18/21 History Renan 2 Sensor) blood sugar diagnostic (OneTouch #200 ea 08/14/21 11/18/21 Rx Verio test strips) carvedilol 6.25 mg tablet 6.25 mg PO BID #180 tab 08/19/21 11/27/21 Rx duloxetine 30 mg capsule,delayed 30 mg PO QAM #90 cap 08/19/21 11/27/21 Rx release isosorbide mononitrate 30 mg 60 mg PO QAM #180 tab 08/19/21 11/27/21 Rx tablet,extended release 24 hr chlorthalidone 25 mg tablet 25 mg PO DAILY #30 tab 08/26/21 11/27/21 Rx aspirin 81 mg tablet,delayed 81 mg PO QAM 10/24/21 11/27/21 History release folic acid 1 mg tablet 1 mg PO QAM 30 Days #30 tab 10/30/21 11/27/21 Rx diclofenac sodium 1 % topical gel 2 g TOPICAL QID 10/31/21 11/27/21 History (Arthritis Pain (diclofenac)) Gvoke HypoPen 2-Pack 1 mg/0.2 mL 1 mg SUBCUT .COMPLEX #0.4 ml NS 11/03/21 11/27/21 Rx subcutaneous auto-injector (glucagon) ezetimibe 10 mg tablet (Zetia) 10 mg PO QAM #90 tab 11/03/21 11/27/21 Rx gabapentin 100 mg capsule 100 mg PO HS #30 cap 11/03/21 11/27/21 Rx pantoprazole 40 mg tablet,delayed 40 mg PO BID #60 tab 11/03/21 11/27/21 Rx release buspirone 10 mg tablet 10 mg PO TID #270 tab 11/06/21 11/27/21 Rx metformin 500 mg tablet 1,000 mg PO BID #120 tab 11/07/21 11/27/21 Rx albuterol sulfate 90 mcg/actuation 2 puff INHALATION QID PRN #8.5 g 11/20/21 11/27/21 Rx aerosol inhaler (Ventolin HFA) Patient History Medical History Mckeon esophagus CAD (coronary artery disease) s/p stents to RCA November 2005; s/p stents to LAD, LCx in January 2006; s/p stents to RCA in 08/2006 Cervical pain (neck) Chest pain Chronic pain syndrome Depression Diabetes mellitus, type 2 IDDM Diabetic gastroparesis Diabetic peripheral neuropathy Dyslipidemia Folic acid deficiency GERD without esophagitis HTN (hypertension) IBS (irritable bowel syndrome) Lumbar spondylosis Migraine headache Myocardial Infarction [place]- November 2005, January 2006, Aug 2006 3 total within an 8 month span--HX OF CATH 2012 [facility], FOLLOWS WITH DR. LAU Non-ST elevation (NSTEMI) myocardial infarction Obesity Sprain of left foot Sprain of left foot Vitamin B12 deficiency Vitamin D deficiency Surgical History History of cardiac cath last 2012 @ [facility], no stents--s/p stents to RCA November 2005; s/p stents to LAD, LCx in January 2006; s/p stents to RCA in 08/2006 History of cataract surgery BL History of cholecystectomy History of colonoscopy with polypectomy History of esophageal dilatation History of esophagogastroduodenoscopy (EGD) History of lumbar spinal fusion History of tooth extraction all teeth History of total hysterectomy with bilateral salpingo-oophorectomy (BSO) History of total right knee replacement (TKR) S/P coronary artery stent placement s/p stents to RCA November 2005; s/p stents to LAD, LCx in January 2006; s/p stents to RCA in 08/2006 Status post trigger finger release right thumb Family History Brother Myocardial infarction Anxiety Heart disease Hypertension Cancer Sister Family history of reaction to anesthesia difficulty waking Hypertension Heart disease Myocardial infarction Anxiety Cancer Diabetes Father Anxiety Heart disease Hypertension Mother Anxiety Hypertension Heart disease Unknown Cancer skin, GI Denies family history of Ovarian cancer Prostate cancer Breast cancer Colorectal cancer Stroke Social History Smoking Status: Never smoker Tobacco Type: Cigarettes Age Started Using Tobacco: 18; Age Quit Using Tobacco: 57; Cigarettes Per Day: 3 cigarettes a week; Second Hand Exposure: No; Hx Alcohol Use: No Hx Substance Use: No Preferred Language: Sammarinese Communication Ability: Effective Visual Impairment: Limited Hearing Ability: Normal Concierge Required: No Beliefs That Will Affect Care: None marital status: / Current Living Situation: Alone Current Living Situation Comment: apartment building current occupational status: retired and disabled How many Children do You have: 3 Feels Safe at Home: Yes Safety Concerns: Feels Safe At This Time Childhood Exposure to Second-Hand Smoke: No caffeine: Yes (drinks coffee, diet pepsi occasionally ) Dental Care, Regularly: No Physical Activity Frequency: Does not Exercise Seatbelt Use: always Sunscreen Use: No Assistive Devices: Denture - Upper and Glasses Physical Exam Physical Exam: Gen.: No acute distress. Alert and oriented. HEENT: Anicteric sclera. Neck: No JVD. No bruits. Normal carotid upstrokes bilaterally. Cardiac: PMI was nondisplaced. No ventricular heave. Regular. Normal S1-S2. No murmurs, rubs, or gallops. Pulmonary: Clear to auscultation bilaterally without wheezes, rales, or rhonchi. Abdomen: Soft, nontender, nondistended, with normoactive bowel sounds. No bruits noted. Extremities: 2+ radial pulses bilaterally. 2+ posterior tibialis pulses bilaterally. Trace bilateral lower extremity pitting edema. No cyanosis. Psychiatric: Affect appears appropriate. Results & Data ([facility]) Vital Signs (Past 12 Hours) Vital Signs Temp Pulse Pulse Pulse Resp BP BP 11/28/21 06:50 36.4 C L 79 18 145/87 H 11/28/21 06:00 79 16 136/95 11/28/21 03:49 80 16 121/69 11/28/21 03:25 83 83 16 126/78 11/28/21 03:15 83 136/84 11/28/21 02:01 95 H 134/93 11/28/21 01:28 99 H 22 138/112 H 11/28/21 00:15 37.4 C 105 H 18 161/97 H 11/27/21 23:38 18 190/131 H 11/27/21 22:48 11/27/21 22:34 37.2 C 117 H 26 H 199/124 H Pulse Ox 11/28/21 06:50 100 11/28/21 06:00 96 11/28/21 03:49 96 11/28/21 03:25 96 11/28/21 03:15 11/28/21 02:01 11/28/21 01:28 95 11/28/21 00:15 94 11/27/21 23:38 95 11/27/21 22:48 94 11/27/21 22:34 94 Laboratory Results Laboratory Results - last 24 hr 11/27/21 11/27/21 11/27/21 22:40 22:40 22:43 WBC 5.57 RBC 5.13 Hgb 14.9 POC Hgb 14.3 Hct 43.1 POC Hct 42 MCV 84.0 MCH 29.0 MCHC 34.6 Plt Count 265 Immature Gran % (Auto) 0.5 Neut % (Auto) 84.0 Lymph % (Auto) 11.8 [place] % (Auto) 3.1 Eos % (Auto) 0.4 Baso % (Auto) 0.2 Neut # (Auto) 4.68 Lymph # (Auto) 0.66 L [place] # (Auto) 0.17 Eos # (Auto) 0.02 Baso # (Auto) 0.01 Immature Gran # (Auto) 0.03 H PT INR APTT PTT Ratio POC pH POC pCO2 POC pO2 POC HCO3 POC Base Excess POC ABG O2 Sat VBG pH VBG pCO2 VBG pO2 VBG HCO3 VBG O2 Saturation VBG Base Excess POC Sodium 127 L Sodium 125 L POC Potassium 3.9 Potassium 4.0 POC Chloride 88 L Chloride 87 L Carbon Dioxide 24 POC Total CO2 23 L Anion Gap 14 H POC Anion Gap 21.0 POC BUN 21 H BUN 22 Creatinine 1.28 H POC Creatinine 1.0 Est Cr Clr Drug Dosing 39.3 Est GFR ( Amer) 47.7 Est GFR (Non-Af Amer) 41.1 BUN/Creatinine Ratio 17.2 Glucose 928 H* POC Glucose POC Glucose (other) > 700 H* Calcium 10.4 H POC Ioniz Calcium Delphine 1.27 Magnesium Total Bilirubin 0.6 AST 21 ALT 25 Alkaline Phosphatase 79 Troponin I High Sens 258.2 H* Total Protein 7.2 Albumin 3.9 Globulin 3.3 Albumin/Globulin Ratio 1.2 Lipase 25 SARS-CoV-2, RNA, NAAT 11/27/21 11/28/21 11/28/21 23:40 00:20 00:25 WBC RBC Hgb POC Hgb Hct POC Hct MCV MCH MCHC Plt Count Immature Gran % (Auto) Neut % (Auto) Lymph % (Auto) [place] % (Auto) Eos % (Auto) Baso % (Auto) Neut # (Auto) Lymph # (Auto) [place] # (Auto) Eos # (Auto) Baso # (Auto) Immature Gran # (Auto) PT INR APTT PTT Ratio POC pH 7.37 POC pCO2 52 H POC pO2 < 32 L POC HCO3 30 H POC Base Excess 4.0 H POC ABG O2 Sat 38.0 L VBG pH VBG pCO2 VBG pO2 VBG HCO3 VBG O2 Saturation VBG Base Excess POC Sodium Sodium POC Potassium Potassium POC Chloride Chloride Carbon Dioxide POC Total CO2 31 Anion Gap POC Anion Gap POC BUN BUN Creatinine POC Creatinine Est Cr Clr Drug Dosing Est GFR ( Amer) Est GFR (Non-Af Amer) BUN/Creatinine Ratio Glucose POC Glucose > 600 H* POC Glucose (other) Calcium POC Ioniz Calcium Delphine Magnesium Total Bilirubin AST ALT Alkaline Phosphatase Troponin I High Sens Total Protein Albumin Globulin Albumin/Globulin Ratio Lipase SARS-CoV-2, RNA, NAAT NEGATIVE 11/28/21 11/28/21 11/28/21 01:21 01:39 02:17 WBC RBC Hgb POC Hgb Hct POC Hct MCV MCH MCHC Plt Count Immature Gran % (Auto) Neut % (Auto) Lymph % (Auto) [place] % (Auto) Eos % (Auto) Baso % (Auto) Neut # (Auto) Lymph # (Auto) [place] # (Auto) Eos # (Auto) Baso # (Auto) Immature Gran # (Auto) PT INR APTT PTT Ratio POC pH POC pCO2 POC pO2 POC HCO3 POC Base Excess POC ABG O2 Sat VBG pH VBG pCO2 VBG pO2 VBG HCO3 VBG O2 Saturation VBG Base Excess POC Sodium Sodium POC Potassium Potassium POC Chloride Chloride Carbon Dioxide POC Total CO2 Anion Gap POC Anion Gap POC BUN BUN Creatinine POC Creatinine Est Cr Clr Drug Dosing Est GFR ( Amer) Est GFR (Non-Af Amer) BUN/Creatinine Ratio Glucose POC Glucose > 600 H* > 600 H* POC Glucose (other) Calcium POC Ioniz Calcium Delphine Magnesium Total Bilirubin AST ALT Alkaline Phosphatase Troponin I High Sens 962.3 H* D Total Protein Albumin Globulin Albumin/Globulin Ratio Lipase SARS-CoV-2, RNA, NAAT 11/28/21 11/28/21 11/28/21 02:19 03:21 03:21 WBC RBC Hgb POC Hgb Hct POC Hct MCV MCH MCHC Plt Count Immature Gran % (Auto) Neut % (Auto) Lymph % (Auto) [place] % (Auto) Eos % (Auto) Baso % (Auto) Neut # (Auto) Lymph # (Auto) [place] # (Auto) Eos # (Auto) Baso # (Auto) Immature Gran # (Auto) PT INR APTT PTT Ratio POC pH POC pCO2 POC pO2 POC HCO3 POC Base Excess POC ABG O2 Sat VBG pH 7.34 L VBG pCO2 49 VBG pO2 32 VBG HCO3 26 VBG O2 Saturation < 60.0 VBG Base Excess -0.3 POC Sodium Sodium Cancelled POC Potassium Potassium Cancelled POC Chloride Chloride Cancelled Carbon Dioxide Cancelled POC Total CO2 Anion Gap Cancelled POC Anion Gap POC BUN BUN Cancelled Creatinine Cancelled POC Creatinine Est Cr Clr Drug Dosing Cancelled Est GFR ( Amer) Cancelled Est GFR (Non-Af Amer) Cancelled BUN/Creatinine Ratio Cancelled Glucose Cancelled POC Glucose > 600 H* POC Glucose (other) Calcium Cancelled POC Ioniz Calcium Delphine Magnesium Cancelled Total Bilirubin AST ALT Alkaline Phosphatase Troponin I High Sens Total Protein Albumin Globulin Albumin/Globulin Ratio Lipase SARS-CoV-2, RNA, NAAT 11/28/21 11/28/21 11/28/21 03:21 03:30 04:01 WBC RBC Hgb POC Hgb Hct POC Hct MCV MCH MCHC Plt Count Immature Gran % (Auto) Neut % (Auto) Lymph % (Auto) [place] % (Auto) Eos % (Auto) Baso % (Auto) Neut # (Auto) Lymph # (Auto) [place] # (Auto) Eos # (Auto) Baso # (Auto) Immature Gran # (Auto) PT Cancelled Cancelled INR Cancelled Cancelled APTT Cancelled Cancelled PTT Ratio Cancelled Cancelled POC pH POC pCO2 POC pO2 POC HCO3 POC Base Excess POC ABG O2 Sat VBG pH VBG pCO2 VBG pO2 VBG HCO3 VBG O2 Saturation VBG Base Excess POC Sodium Sodium POC Potassium Potassium POC Chloride Chloride Carbon Dioxide POC Total CO2 Anion Gap POC Anion Gap POC BUN BUN Creatinine POC Creatinine Est Cr Clr Drug Dosing Est GFR ( Amer) Est GFR (Non-Af Amer) BUN/Creatinine Ratio Glucose POC Glucose 523 H* POC Glucose (other) Calcium POC Ioniz Calcium Delphine Magnesium Total Bilirubin AST ALT Alkaline Phosphatase Troponin I High Sens Total Protein Albumin Globulin Albumin/Globulin Ratio Lipase SARS-CoV-2, RNA, NAAT 11/28/21 11/28/21 11/28/21 04:45 05:19 05:33 WBC RBC Hgb POC Hgb Hct POC Hct MCV MCH MCHC Plt Count Immature Gran % (Auto) Neut % (Auto) Lymph % (Auto) [place] % (Auto) Eos % (Auto) Baso % (Auto) Neut # (Auto) Lymph # (Auto) [place] # (Auto) Eos # (Auto) Baso # (Auto) Immature Gran # (Auto) PT 10.9 INR 1.0 APTT 26.8 PTT Ratio 1.0 POC pH POC pCO2 POC pO2 POC HCO3 POC Base Excess POC ABG O2 Sat VBG pH VBG pCO2 VBG pO2 VBG HCO3 VBG O2 Saturation VBG Base Excess POC Sodium Sodium 132 L POC Potassium Potassium POC Chloride Chloride 95 L Carbon Dioxide 28 POC Total CO2 Anion Gap 9 POC Anion Gap POC BUN BUN 21 Creatinine 1.12 POC Creatinine Est Cr Clr Drug Dosing 44.9 Est GFR ( Amer) 56.0 Est GFR (Non-Af Amer) 48.4 BUN/Creatinine Ratio 18.8 Glucose 494 H* POC Glucose 456 H* POC Glucose (other) Calcium 9.7 POC Ioniz Calcium Delphine Magnesium 1.2 L Total Bilirubin AST ALT Alkaline Phosphatase Troponin I High Sens Total Protein Albumin Globulin Albumin/Globulin Ratio Lipase SARS-CoV-2, RNA, NAAT 11/28/21 11/28/21 11/28/21 05:34 06:58 07:00 WBC RBC Hgb POC Hgb Hct POC Hct MCV MCH MCHC Plt Count Immature Gran % (Auto) Neut % (Auto) Lymph % (Auto) [place] % (Auto) Eos % (Auto) Baso % (Auto) Neut # (Auto) Lymph # (Auto) [place] # (Auto) Eos # (Auto) Baso # (Auto) Immature Gran # (Auto) PT INR APTT PTT Ratio POC pH POC pCO2 POC pO2 POC HCO3 POC Base Excess POC ABG O2 Sat VBG pH VBG pCO2 VBG pO2 VBG HCO3 VBG O2 Saturation VBG Base Excess POC Sodium Sodium POC Potassium Potassium 3.5 POC Chloride Chloride Carbon Dioxide POC Total CO2 Anion Gap POC Anion Gap POC BUN BUN Creatinine POC Creatinine Est Cr Clr Drug Dosing Est GFR ( Amer) Est GFR (Non-Af Amer) BUN/Creatinine Ratio Glucose POC Glucose 533 H* 494 H* POC Glucose (other) Calcium POC Ioniz Calcium Delphine Magnesium Total Bilirubin AST ALT Alkaline Phosphatase Troponin I High Sens Total Protein Albumin Globulin Albumin/Globulin Ratio Lipase SARS-CoV-2, RNA, NAAT 11/28/21 08:27 WBC RBC Hgb POC Hgb Hct POC Hct MCV MCH MCHC Plt Count Immature Gran % (Auto) Neut % (Auto) Lymph % (Auto) [place] % (Auto) Eos % (Auto) Baso % (Auto) Neut # (Auto) Lymph # (Auto) [place] # (Auto) Eos # (Auto) Baso # (Auto) Immature Gran # (Auto) PT INR APTT PTT Ratio POC pH POC pCO2 POC pO2 POC HCO3 POC Base Excess POC ABG O2 Sat VBG pH VBG pCO2 VBG pO2 VBG HCO3 VBG O2 Saturation VBG Base Excess POC Sodium Sodium POC Potassium Potassium POC Chloride Chloride Carbon Dioxide POC Total CO2 Anion Gap POC Anion Gap POC BUN BUN Creatinine POC Creatinine Est Cr Clr Drug Dosing Est GFR ( Amer) Est GFR (Non-Af Amer) BUN/Creatinine Ratio Glucose POC Glucose POC Glucose (other) Calcium POC Ioniz Calcium Delphine Magnesium Total Bilirubin AST ALT Alkaline Phosphatase Troponin I High Sens 2404.6 H* D Total Protein Albumin Globulin Albumin/Globulin Ratio Lipase SARS-CoV-2, RNA, NAAT Diagnostic Findings ECGs personally reviewed: ECG 11/27/21 at 10:28 p.m.: Sinus tachycardia 117 beats per minute. ECG 11/28/2021 at 12:40 a.m.: Sinus 100 beats per minute. Nonspecific T-wave abnormalities anterior leads. ECG 11/28/2021 at 2:53 a.m.: Inferolateral T-wave abnormality. ECG 11/28/2021 at 6:17 a.m.: Sinus rhythm 74 beats per minute. Minor inferior T-wave inversion. Anterior T-wave inversion. Telemetry personally reviewed: Sinus rhythm. No arrhythmia. Echo 11/28/2021: EF 50-55%. Small area of apical hypokinesis. Mid to distal inferolateral wall severely hypokinetic. CTA chest 11/27/2021: No aortic dissection. No PE. Moderate to severe circumferential thickening involving the mid to distal esophagus with mild paraesophageal edema, progressed in the interval, favoring nonspecific esophagitis per Radiology. Medications Administered Current Inpatient Medications Acetaminophen (Acetaminophen 325 Mg Tab) 650 mg PO Q4H PRN PRN Reason: Pain or Fever Stop: 12/28/21 05:26 Albuterol (Albuterol Hfa 8 Gm Inhaler) 2 puffs INH QID PRN PRN Reason: shortness of breath or wheezing Stop: 12/28/21 05:26 Dextrose (Dextrose 50% 50 Ml Syringe) 25 - 50 ml IV UD PRN; Protocol PRN Reason: Hypoglycemia Protocol Stop: 12/28/21 00:08 Famotidine (Famotidine 20 Mg Tab) 20 mg PO BID [facility] Stop: 12/28/21 08:59 Last Admin: 11/28/21 09:19 Dose: 20 mg Documented by: Glucagon (Glucagon For Inj 1 Mg Vial) 1 mg SQ UD PRN; Protocol PRN Reason: Hypoglycemia Protocol Stop: 12/28/21 00:08 Glucose (Glucose 10 Tabs/Tube) 4 - 8 tabs PO UD PRN; Protocol PRN Reason: Hypoglycemia Protocol Stop: 12/28/21 00:08 Glucose (Glucose 40% Gel 15 Gm Tube) 15 - 30 gm PO UD PRN; Protocol PRN Reason: Hypoglycemia Protocol Stop: 12/28/21 00:08 Heparin Sodium/Dextrose (Heparin Sodium/Dextrose) 25,000 units in 500 mls @ 23 mls/hr IV .[id number] [facility]; Protocol Stop: 12/28/21 02:59 Last Admin: 11/28/21 06:12 Dose: 1,150 units/hr, 23 mls/hr Documented by: Magnesium Sulfate/Dextrose (Magnesium Sulfate / D5w) 1 gm in 100 mls @ 50 mls/hr IV Q2H [facility] Stop: 11/28/21 11:43 Last Admin: 11/28/21 08:48 Dose: 50 mls/hr Documented by: Acetaminophen (Ofirmev) 1,000 mg in 100 mls @ 400 mls/hr IV Q8H PRN PRN Reason: Pain Stop: 12/01/21 07:04 Last Infusion: 11/28/21 08:48 Dose: Infused Documented by: Potassium Chloride 20 meq/ (Lactated Ringer's) 1,010 mls @ 150 mls/hr IV .[id number] [facility] Stop: 11/28/21 21:27 Last Admin: 11/28/21 09:18 Dose: 150 mls/hr Documented by: Nitroglycerin/Dextrose (Nitroglycerin/D5w 100 Mcg/Ml) 250 mls @ 3 mls/hr IV .Q24H [facility]; Protocol Stop: 12/28/21 09:14 Insulin Aspart (Insulin Aspart Per Unit) 0 units SC Q4H [facility] Stop: 12/28/21 11:59 Insulin Glargine (Insulin Glargine Solostar 100 Units/Ml 3 Ml Pen) 16 units SC QAM [facility] Stop: 12/29/21 08:59 Metoprolol Tartrate (Metoprolol Tartrate 25 Mg Tab) 25 mg PO BID [facility] Stop: 12/28/21 08:59 Last Admin: 11/28/21 09:19 Dose: 25 mg Documented by: Miscellaneous (Carbohydrates For Hypoglycemia ) 15 - 30 gm PO UD PRN PRN Reason: Hypoglycemia Protocol Stop: 12/28/21 00:08 Morphine Sulfate (Morphine Sulfate 2 Mg/Ml Carp) 2 mg IV Q6H PRN PRN Reason: Severe Pain 9,10 after tylenol Stop: 12/12/21 07:05 Last Admin: 11/28/21 08:18 Dose: 2 mg Documented by: Morphine Sulfate (Morphine Sulfate 4 Mg/Ml 1 Ml Carp\\Vial) 2 mg IV Q5M PRN PRN Reason: Pain (Scale 6,7,8,9,10) Stop: 12/12/21 09:13 Nitroglycerin (Nitroglycerin 2% Ointment 30gm Tube) 0.5 inch EXT Q6H [facility] Stop: 12/28/21 06:59 Last Admin: 11/28/21 06:59 Dose: 0.5 inch Documented by: Ondansetron HCl (Ondansetron Inj 2 Mg/Ml 2 Ml Vial) 4 mg IV Q6H PRN PRN Reason: Nausea Stop: 12/28/21 05:26 Last Admin: 11/28/21 06:08 Dose: 4 mg Documented by: Pantoprazole Sodium (Pantoprazole 40 Mg Tab) 40 mg PO BID [facility] Stop: 12/28/21 08:59 Last Admin: 11/28/21 09:19 Dose: 40 mg Documented by: Rosuvastatin Calcium (Rosuvastatin Calcium 20 Mg Tab) 40 mg PO QAM [facility] Stop: 12/28/21 08:59 Last Admin: 11/28/21 09:19 Dose: 40 mg Documented by: PG Care Time/CCT Total # of Minutes Spent Total Time Spent with Patient: Total time spent is greater than 50% in coordination of care (as documented) at patient's floor/unit and/or counseling patient: Coding Level of Care Code 95170 Initial Inpt Care Lvl 3 Diagnoses Acute non-ST elevation myocardial infarction (NSTEMI) I21.4 CAD (coronary artery disease) I25.10 Associated angina: angina presence unspecified Coronary Disease-Associated Artery/Lesion type: [place] artery [place] vs. transplanted heart: [place] heart S/P coronary artery stent placement Z95.5 HTN (hypertension) I10 Dyslipidemia E78.5 (1) CAD (coronary artery disease) Associated angina: angina presence unspecified Coronary Disease-Associated Artery/Lesion type: [place] artery [place] vs. transplanted heart: [place] heart Qualified Code(s): I25.10 - Atherosclerotic heart disease of [place] coronary artery without angina pectoris
[2021-11-28] MEDS ORDERED: STAT IV Infusion **Titration per Protocol STA ×2 (09:12→17:27)
[2021-11-28] MEDS ORDERED: NITROGLYCERIN/D5W 100MCG/ML 250 ML IV SCH (09:15)
[2021-11-28] MEDS: FAMOTIDINE 20 MG TAB PO SCH ×2 (09:19→20:46)
[2021-11-28] MEDS: PANTOprazole 40 MG TAB PO SCH ×2 (09:19→20:47)
[2021-11-28] MEDS: METOPROLOL TARTRATE 25 MG TAB PO SCH ×2 (09:19→20:46)
[2021-11-28] MEDS: ROSUVASTATIN CALCIUM 20 MG TAB PO SCH (09:19)
--- NOTE | 2021-11-28 09:35 | XCELERA ---
[id number]
[2021-11-28] MEDS ORDERED: HEPARIN (PORCINE) 1000 UNIT/ML 10 ML (CATH LAB USE ONLY) ONE (09:56)
[2021-11-28] MEDS ORDERED: MIDAZOLAM HCL 1 MG/ML 2ML VIAL ONE (09:56)
[2021-11-28] MEDS ORDERED: niCARdipine HCL INJ 2.5 MG/ML 10 ML AMP ONE (09:56)
[2021-11-28] MEDS ORDERED: NITROGLYCERIN/D5W 100MCG/ML 20ML SYR ONE (09:57)
[2021-11-28] MEDS ORDERED: fentaNYL citrate 100 MCG/2 ML VIAL ONE (09:57)
--- NOTE | 2021-11-28 10:14 | Pre Anesthesia Assessment ---
Date of Service November 28, 2021 Pre Sedation Assessment Vital Signs Temp Pulse Pulse Pulse Resp BP BP 11/28/21 09:08 74 18 155/94 H 11/28/21 06:50 36.4 C L 79 18 145/87 H 11/28/21 06:00 79 16 136/95 11/28/21 03:49 80 16 121/69 11/28/21 03:25 83 83 16 126/78 11/28/21 03:15 83 136/84 11/28/21 02:01 95 H 134/93 11/28/21 01:28 99 H 22 138/112 H 11/28/21 00:15 37.4 C 105 H 18 161/97 H 11/27/21 23:38 18 190/131 H 11/27/21 22:48 11/27/21 22:34 37.2 C 117 H 26 H 199/124 H Pulse Ox 11/28/21 09:08 11/28/21 06:50 100 11/28/21 06:00 96 11/28/21 03:49 96 11/28/21 03:25 96 11/28/21 03:15 11/28/21 02:01 11/28/21 01:28 95 11/28/21 00:15 94 11/27/21 23:38 95 11/27/21 22:48 94 11/27/21 22:34 94 Cardiovascular RRR, no murmur, no edema Respiratory normal respiratory effort, lungs clear to auscultation Pre-Sedation Airway Assessment Smoking Status: Never smoker Mallampati Class: III ASA: ASA3 NPO Status Date of Last Intake of Fluids: 11/28/21 Time of Last Intake of Fluids: 09:00 Last Oral Intake of Fluids Comment: sips with meds Date of Last Intake of Solid Food: 11/27/21 Time of Last Intake of Solid Foods: 18:00 Procedure Planning Contraindications for Sedation: none Current Medications Reviewed: Yes Notes The planned sedation has been discussed with the patient. Informed Consent was obtained. I have identified the patient, determined the appropriateness of sedation and have assessed the patient immediately prior to the procedure. All medicine(s) and interventions are by my order.
--- NOTE | 2021-11-28 11:49 | Cardiac Catheterization ---
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 Cardiac Status Clinical evaluation leading to the procedure CAD Presenation: Non STEMI Anginal Classification: CCS IV Heart Failure: No Cardiogenic Shock within 24 Hours: No Cardiac Arrest within 24 Hours: No Imaging Studies Past 6 Months: Yes Stress Studies Past 6 Months: No Coronary Anatomy Dominant: Right Diagnostic Physicians Name: Deon Gonzalez MD Status: Urgent Closure Device Percutaneous Entry Location: Radial Closure Device: Radial Band Recommendations: Management Recommendatons Cardiac Cath Procedure Full Procedure Date November 28, 2021 Pre-Procedure Diagnosis Pre-Procedure Diagnosis: Non STEMI and CAD AUC Score AUC Score: 9 Post-Procedure Diagnosis Post-Procedure Diagnosis: Severe CAD and Normal Intracardiac Pressures Procedure(s) Performed Procedure(s) Performed: Coronary Angiography and Left Heart Cath Prescription Clerk Deon Gonzalez MD Canary Breeder(s) Showers Estimated Blood Loss Estimated Blood Loss: < 40 ml Medication(s) Medication(s): Fentanyl, Lidocaine 1%, Nicardipine and Versed Summary of Findings Procedures: 1. Coronary angiography 2. Left heart catheterization 3. Moderate sedation Indication: 76-year-old female with a history significant for CAD s/p PCI of RCA x 3, OC OM, and LAD, poorly controlled diabetes, hypertension, and dyslipidemia. She presented with acute angina that persisted despite medical therapy and glucose levels > 900 on presentation. High sensitivity troponin progressively increased and ruled in for myocardial infarction. Cardiac catheterization recommended. Coronary angiography: 1. Left main: Long vessel and large caliber. Distal LM 30-40%. 2. Left anterior descending: Ostial LAD 40%. Mid LAD stent with luminal irregularities. Mid LAD 70% followed by bifurcation of small to medium diagonal vessel and then another 80-90% stenosis within the mid LAD. Distal LAD long segment of 70-80% stenosis. Mid to distal LAD is small in caliber and diffusely diseased. 3. Circumflex: Small caliber vessel and severely diseased. Circumflex gives rise to very small caliber OM1 and small caliber OM 2. Proximal to mid circumflex long area of 90% stenosis. OM2 proximal 90%. OM 2 stent subtotal occlusion within the distal stent margin. [id number] collaterals to OM2. 4. Right coronary artery: RCA is dominant. Proximal, mid, and distal RCA stents with diffuse [id number] InStent restenoses including 70-80% stenosis within the mid RCA stent. Just distal to stent margin, distal RCA 70- 80%. Distal RCA 80-90% at bifurcation of PDA and PL. PDA and PL without significant CAD. Minimal right to left collaterals. Left heart catheterization: 1. Left ventriculography was not performed. 2. No significant aortic stenosis. 3. Normal LVEDP; 12 mmHg. Moderate sedation: 1. Sedation start time: 10:53 a.m. 2. Sedation end time: 11:33 a.m. Procedural details: 1. Initially, right radial arterial access was attempted. The right radial artery was cannulated with the access needle however a wire was unable to be advanced. Immediately, a hematoma developed. Pressure was applied manually. Decision was made to attempt via left radial artery. Left radial artery was easily cannulated without known complication. Impression: 1. Severe multivessel CAD including LAD, circumflex, and RCA. 2. Severe In-Stent restenosis of RCA stent and subtotal occlusion of OM2 stent (culprit vessel). 3. Small caliber vessels, especially mid to distal LAD and circumflex territories. 4. Normal left-sided filling pressure. 5. No significant aortic stenosis. Plan: 1. Medical therapy recommended. Suspected culprit lesion is small caliber vessel. 2. Consideration for CABG however does not appear to have suitable targets. CT surgery was contacted at [facility] and reviewed images. CT surgery agrees that she does not have suitable targets for CABG. 3. Because she is free from angina on nitroglycerin drip, continue medical therapy including continuation of nitroglycerin drip for now which can be weaned, possibly later today. 4. Start Plavix in addition to aspirin. Plavix can be continued for 1 year for aggressive medical therapy of MS, if no contraindications. 5. Initiate low-dose amlodipine for antihypertensive and antianginal benefits. 6. Continue beta-stephani and high-intensity statin therapy. 7. Continue ANNA-inhibitor. 8. Continue heparin for a total of 48 hours. 9. If has significant refractory angina, can again review with Interventional Cardiology potential options. 10. Recommendations discussed with Dr. Kline of the primary hospitalist team. Hemodynamics Rest Ao:: 136/74 Final Ao: 136/68 LV: 130/4/12 Recommendations Recommendations: Management Recommendatons Specimens Specimens: None Radiation Exposure (mGy) 694 mGy. Fluoro time 8.4 min. Contrast (mls) 40 ml Procedural Complication(s) None Disposition PCU I attest to the content of the Intraoperative Record and any orders documented therein. Any exceptions are noted below. [facility] Card Cath Procedure Codes Cardiac Catheterization Procedure 1: Cardiovascular Cath Procedures: 46662 Coronaries and LHC (+/-LV) Moderate Sedation Procedure 1: Sedation/Anesthesia: 45700 Mod Sedation by the same physician;Init15 Min Child Age 5 & Up Procedure 2: Sedation/Anesthesia: 17675 Mod Sedation by the same physician; Ea [id number] Minutes Procedure 3: Sedation/Anesthesia: 41945 Mod Sedation by the same physician; Ea [id number] Minutes PG Care Time/CCT Total # of Minutes Spent Total Time Spent with Patient: Total time spent is greater than 50% in coordination of care (as documented) at patient's floor/unit and/or counseling patient:
--- NOTE | 2021-11-28 11:50 | Post Operative Brief Note ---
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 see cath report for full details. Complications none
--- NOTE | 2021-11-28 11:51 | Post Anesthesia Assessment ---
Date of Service November 28, 2021 Post Sedation Assessment Vital Signs Temp Pulse Pulse Pulse Resp BP BP 11/28/21 13:07 36.5 C 58 L 16 144/82 H 11/28/21 12:35 36.7 C 63 20 144/79 H 11/28/21 10:21 79 20 124/69 11/28/21 10:10 37.0 C 84 20 125/85 11/28/21 09:08 74 18 155/94 H 11/28/21 06:50 36.4 C L 79 18 145/87 H 11/28/21 06:00 79 16 136/95 11/28/21 03:49 80 16 121/69 11/28/21 03:25 83 83 16 126/78 11/28/21 03:15 83 136/84 11/28/21 02:01 95 H 134/93 11/28/21 01:28 99 H 22 138/112 H 11/28/21 00:15 37.4 C 105 H 18 161/97 H 11/27/21 23:38 18 190/131 H 11/27/21 22:48 11/27/21 22:34 37.2 C 117 H 26 H 199/124 H Pulse Ox 11/28/21 13:07 95 11/28/21 12:35 95 11/28/21 10:21 96 11/28/21 10:10 96 11/28/21 09:08 11/28/21 06:50 100 11/28/21 06:00 96 11/28/21 03:49 96 11/28/21 03:25 96 11/28/21 03:15 11/28/21 02:01 11/28/21 01:28 95 11/28/21 00:15 94 11/27/21 23:38 95 11/27/21 22:48 94 11/27/21 22:34 94 Recovery Score Activity: Moves 4 extremities Respiration: Deep Breath/Cough Circulation: +/-20% PreAnes Value Consciousness: Fully Awake Oxygen Saturation: > 92% On Room Air Discharge Sedation Level of Care: Fast Track Phase II Post Sedation Plan On clinical assessment, the patient appears to have tolerated the sedation without complications. Patient is recovering as anticipated. Patient will continue to be monitored by nursing and may be discharged when sedation discharge criteria are met per below protocol. Upon Completions of procedure up to 15 minutes continue every 5 minute vital signs and the P.A.R. score; then discharge to a Phase I or Fast Track to Phase II per the following guidelines: * Discharge Patient to appropriate Phase II area if PAR is 8 or greater or return to pre- procedure baseline. The post - procedure orders will be as directed. * If PAR score is less than 8 or not return to pre-procedure baseline then patient will follow Phase I monitoring till PAR is reached for Phase II. The Phase I may be done in procedure room or may call to secure a Phase I area. * If naloxone or flumazenil are used for reversal, hold in Phase I for continued monitoring from when last reversal dose was given for a minimum of 60 minutes or longer pending the nurse and/or physician discretion of patient condition before discharge to Phase II. Please call the Sedation Physician to re-evaluate and complete post-note for discharge to Phase II area. Do NOT discharge from procedure sedation or Phase 1 until post- sedation evaluation note is complete by procedure /sedation MD Sedation Discharge Instructions to be given to the patient at discharge to home.
[2021-11-28] MEDS ORDERED: CLOPIDOGREL BISULFATE 300 MG TAB PO STA (13:22)
[2021-11-28] MEDS: SODIUM CHLORIDE 0.9% 1000ML 1,000 ML IV SCH ×2 (13:39→20:44)
[2021-11-28] MEDS: ACETAMINOPHEN 325 MG TAB PO SCH ×2 (13:55→20:47)
[2021-11-28 13:57] LABS: Base Excess VBG 1.7 mEq/L; Oxygen Saturation VBG 82.8 %; Partial Thromboplastin Ratio 1.1; Partial Thromboplastin Time 31.3 Seconds (21.0-31.0); pH VBG 7.36 (7.36-7.41)
[2021-11-28 14:17] LABS: BUN Creatinine Ratio 18.8 (10-20); Calcium 9.4 mg/dl (8.5-10.1); Creatinine Clr Calc Pharmacy 60.3 ml/min; Est GFR (African American) 78.2 ml/min; Est GFR (Non-African American) 67.5 ml/min; Magnesium 1.9 mg/dl (1.7-2.4); Potassium 4.2 mmol/L (3.5-5.1)
[2021-11-28] MEDS ORDERED: NITROGLYCERIN SL 0.4 MG/TAB TAB SL PRN (15:42)
--- NOTE | 2021-11-28 17:26 | Communication Note ---
Date of Service: November 28, 2021 Called by nursing staff due to recurrent chest pain. While eating, she developed chest discomfort in the substernal area. She believes it to be similar to her angina earlier today. She also has known esophagitis. She had nitroglycerin x1 with resolution of her pain. ECG does not demonstrate ST elevation but rather evolution of her previously noted changes with T-wave inversion in the precordial leads. Nitroglycerin drip resumed. Can continue to trend troponin levels until peak.
[2021-11-28] MEDS: INSULIN ASPART PER UNIT SC SCH ×2 (17:40→21:03)
[2021-11-28] MEDS: NITROGLYCERIN/D5W 100MCG/ML 250 ML IV SCH (17:48)
--- NOTE | 2021-11-28 20:33 | Billing Data ---
Date of Service November 28, 2021 Coding Level of Care Code 65207 Initial Inpt Care Lvl 3
[2021-11-28 20:59] LABS: Partial Thromboplastin Ratio 4.4
[2021-11-28 21:03] LABS: Partial Thromboplastin Time 121.6 Seconds (21.0-31.0)
[2021-11-28] MEDS: INSULIN GLARGINE SOLOSTAR 100 UNITS/ML 3 ML PEN SC SCH (21:03)
--- NOTE | 2021-11-28 22:12 | Electrocardiogram Report ---
Test Reason : Blood Pressure : / mmHG Vent. Rate : 117 BPM Atrial Rate : 117 BPM P-R Int : 168 ms QRS Dur : 074 ms QT Int : 330 ms P-R-T Axes : 065 032 071 degrees QTc Int : 460 ms Sinus tachycardia Possible Left atrial enlargement When compared with ECG of 26-OCT-2021 05:46, Vent. rate has increased BY 48 BPM Nonspecific T wave abnormality no longer evident in Inferior leads Nonspecific T wave abnormality no longer evident in Anterior leads Confirmed by Deon Gonzalez ([id number]) on 11/28/2021 10:11:44 PM Referred By: REFERRED SELF Confirmed By:Deon Gonzalez
--- NOTE | 2021-11-28 22:18 | Electrocardiogram Report ---
Test Reason : Blood Pressure : / mmHG Vent. Rate : 100 BPM Atrial Rate : 100 BPM P-R Int : 172 ms QRS Dur : 076 ms QT Int : 378 ms P-R-T Axes : 050 002 013 degrees QTc Int : 487 ms Normal sinus rhythm Nonspecific ST and T wave abnormality Prolonged QT Abnormal ECG When compared with ECG of 27-NOV-2021 22:28, Nonspecific T wave abnormality now evident in Inferolateral leads Confirmed by Deon Gonzalez ([id number]) on 11/28/2021 10:17:40 PM Referred By: REFERRED SELF Confirmed By:Deon Gonzalez
--- NOTE | 2021-11-28 22:23 | Electrocardiogram Report ---
Test Reason : Blood Pressure : / mmHG Vent. Rate : 095 BPM Atrial Rate : 095 BPM P-R Int : 168 ms QRS Dur : 078 ms QT Int : 380 ms P-R-T Axes : 037 001 -88 degrees QTc Int : 477 ms Normal sinus rhythm Possible Left atrial enlargement T wave abnormality, consider inferolateral ischemia Abnormal ECG When compared with ECG of 27-NOV-2021 22:28, T wave inversion now evident in Inferolateral leads Confirmed by Deon Gonzalez ([id number]) on 11/28/2021 10:23:13 PM Referred By: REFERRED SELF Confirmed By:Deon Gonzalez
[2021-11-29] MEDS: HEPARIN SODIUM/DEXTROSE 25,000 UNITS/500 ML BAG IV SCH ×3 (03:20→23:39)
[2021-11-29 05:08] LABS: Appearance Urine Clear (Clear); Bilirubin Urine Negative (Negative); Blood Urine Negative (Negative); Color Urine Orange; Glucose Urine UA Trace (Negative); Ketones Urine Negative (Negative); Leukocyte Esterase Urine Negative (Negative); Nitrite Urine Negative (Negative); Protein Urine Negative (Negative); Urobilinogen Urine Negative (Negative)
[2021-11-29] MEDS: ACETAMINOPHEN 325 MG TAB PO SCH ×3 (05:20→20:48)
[2021-11-29 06:29] LABS: Partial Thromboplastin Ratio 3.4
[2021-11-29 06:31] LABS: Partial Thromboplastin Time 92.5 Seconds (21.0-31.0)
--- NOTE | 2021-11-29 06:35 | Electrocardiogram Report ---
Test Reason : Blood Pressure : / mmHG Vent. Rate : 074 BPM Atrial Rate : 074 BPM P-R Int : 170 ms QRS Dur : 078 ms QT Int : 462 ms P-R-T Axes : 053 014 -49 degrees QTc Int : 512 ms Normal sinus rhythm T wave abnormality, consider inferolateral ischemia Prolonged QT Abnormal ECG When compared with ECG of 28-NOV-2021 02:53, No significant change was found Confirmed by Deon Gonzalez ([id number]) on 11/29/2021 6:34:48 AM Referred By: REFERRED SELF Confirmed By:Deon Gonzalez
[2021-11-29 06:39] LABS: BUN Creatinine Ratio 14.6 (10-20); Calcium 8.4 mg/dl (8.5-10.1); Creatinine Clr Calc Pharmacy 62.4 ml/min; Est GFR (African American) 81.7 ml/min; Est GFR (Non-African American) 70.5 ml/min; Magnesium 2.3 mg/dl (1.7-2.4); Potassium 3.9 mmol/L (3.5-5.1)
--- NOTE | 2021-11-29 07:01 | Electrocardiogram Report ---
Test Reason : Blood Pressure : / mmHG Vent. Rate : 061 BPM Atrial Rate : 061 BPM P-R Int : 168 ms QRS Dur : 068 ms QT Int : 506 ms P-R-T Axes : 060 013 232 degrees QTc Int : 509 ms Normal sinus rhythm T wave abnormality, consider inferior ischemia T wave abnormality, consider anterior ischemia Prolonged QT Abnormal ECG When compared with ECG of 28-NOV-2021 06:17, T wave inversion more evident in Anterior leads Confirmed by Deon Gonzalez ([id number]) on 11/29/2021 7:01:20 AM Referred By: REFERRED SELF Confirmed By:Deon Gonzalez
[2021-11-29 07:31] LABS: Basophils # (auto) 0.02 K/uL (0-0.2); Basophils % (auto) 0.3 %; Eosinophils % (auto) 1.4 %; Hematocrit (blood only) 32.8 % (37-47); Hemoglobin 11.2 g/dL (12.0-16.0); Immature Granulocytes # (auto) 0.03 K/uL (0.00-0.02); Immature Granulocytes % (auto) 0.4 %; Lymphocytes # (auto) 2.71 K/uL (1.2-3.4); Mean Corpuscular Hemoglobin 28.4 pg (25-34); Mean Corpuscular Hgb Conc 34.1 g/dL (32-36); Mean Platelet Volume 9.6 fL (7.4-10.4); Monocytes # (auto) 0.33 K/uL (0.11-0.59); Monocytes % (auto) 4.6 %; Neutrophils # (auto) 3.95 K/uL (1.4-6.5); Neutrophils % (auto) 55.3 %; Platelet Count 208 K/uL (130-400); RDW Coefficient of Variation 14.3 % (11.5-14.5); RDW Standard Deviation 43.4 fL (36.4-46.3); Red Blood Count 3.95 M/uL (4.2-5.4); White Blood Count 7.14 K/uL (4.8-10.8)
--- NOTE | 2021-11-29 07:49 | Hospitalist Progress Note ---
Date of Service November 29, 2021 Assessment & Plan (1) Acute non-ST elevation myocardial infarction (NSTEMI): Plan: 76 yo F Hx CAD s/p stents, HTN, HLD, DM2, GERD admitted for NSTEMI and suspected HHS. NSTEMI: Presented with chest pain midsternal radiating to left shoulder. Troponin trended, have peaked at 3196, downtrending since Cardiac catheterization performed with evidence of severe multivessel disease WITHOUT target areas for CABG consideration. Unlikely to be able to place stent given disease, however can be considered with Cardiology should patient's symptoms not improve with medical management. Continue heparin gtt for at least 48 hours post-catheterization (11/30) Plan for medical management given patient is poor CABG candidate and poor stent candidate, appreciate cardiology's continuing assistance with management Medications as follows: Metoprolol 25mg BID Amlodipine 5mg daily Rosuvastatin 40mg daily Ezetimibe daily Lisinopril 10mg daily Aspirin 81mg daily Plavix daily Nitro drip, slowly weaning Heparin Drip, to discontinue on 11/30 EOD Patient will need aggressive BSG control both now inpatient and on discharge to maintain her current level of cardiac disease; see below. Esophagitis Pain - immediate pain following consumption of any solid or semisolid food, able to tolerate liquids - CT chest imaging showing inflammation surrounding base of esophagus likely indicative of esophagitis - tried GI cocktail this afternoon to assess improvement in symptoms with topical treatment. If improved, will add sucralfate QID. - esophageal pain less likely to be steal syndrome-like cardiac origin given that the pain is immediately after eating rather than half an hour later while digesting. - diet switched from diabetic regular to clear liquid to promote intake of nutrition without emesis Dehydration with Hyperglycemia in DM2 History of uncontrolled DM2 with most recent A1c ~12; this is actually decreased from previous readings in the last several years. Presented to hospital with BSG 928. Initially received 10u regular insulin x1 and was briefly on insulin gtt. Encourage PO fluid intake Insulin coverage: Lantus 20u BID and bolus (see tight sliding scale) for DM2. Can titrate as necessary. DM2 diet. Aggressive diabetic education while admitted; patient is pre-contemplative about her role in dietary modification to aid in her BSG control. HLD: Continue statin and ezetimibe. HTN: Continue amlodipine, metoprolol, lisinopril. Adjust as necessary for BP control. GERD: Continue home PPI and H2. Code Status: DNR/DNI FEN: Clear liquid, DM2 diet DVT ppx: Heparin gtt Dispo: Telemetry (2) Hyperglycemia due to type 2 diabetes mellitus: (3) Anxiety: (4) GERD (gastroesophageal reflux disease): (5) HTN (hypertension): (6) Dyslipidemia: Admission and Anticipated Discharge Date Admission Date: November 28, 2021 Supervising Physician Co-Signing Physician Notes I personally examined the patient and verified all hathaway points of history and exam, discussed case, and agree with decision making with Dr Lipscomb seen by dr lipscomb several times today, including lengthy and in depth discussions this afternoon. case d/w her extensively. when i see her she is sleeping comfortably - because of feeling nausea/CP earlier - better now, and because of extensive discussions already had w dr lipscomb - decision made at this time to allow pt to rest. Vitals noted,resting comfortably nad heent nc at mmm breathing unlabored at rest no focal neuro deficits at rest skin without rashes pallor or icterus Unstable angina/NSTEMI/severe coronary diseasefortunately symptoms resolved on aggressive med management. Continue for now.secondary risk reduction Uncontrolled type 2 diabetesappears to have many barriers to care, although in d/w dr lipscomb she was able to help pt understand the dire need for change in control and pt was then much more motivated. sugars have been good today - although has been predominantly basal disproportionate to bolus - will reduce HS lantus by 50% HHSprobable HHS, certainly hyperglycemic dehydration physiologyimproved with fluids and insulin. Subjective overnight events: chest pain with eating dinner last night, converted from oral nitro to nitro drip per cardiology. This am: continues to have chest pain immediately after eating. Says she had a bite of [place] toast that caused sharp chest pain just like she had earlier. Also had this with eating yogurt. Able to tolerate water and coffee without pain.mildly nauseous without emesis. Review of Systems Review of Systems: All systems reviewed & are unremarkable except as noted in Subjective Physical Exam Physical Exam: Constitutional: obese, visibly uncomfortable in bed, rubbing sternal chest area Eyes: EOMI, pupils equal and reactive bilaterally, no scleral icterus Cardiac: RRR, no murmurs, gallops or rubs. Normal S1, S2 Pulm: CTA BL, no wheezes, rhonchi, crackles or rubs, moving air well throughout both lungs Abd: soft, nontender, nondistended, normal bowel sounds, no rebound or guarding Extremities: poorly palpated peripheral pulses at ankles, no edema Results & Data Results & Data ([facility]) Vital Signs (Past 12 Hours) Vital Signs Temp Pulse Pulse Resp BP BP Pulse Ox 11/29/21 02:51 36.5 C 54 L 16 105/66 98 11/29/21 00:33 50 L 11/28/21 23:00 36.4 C L 51 L 20 83/51 L 96 11/28/21 19:49 36.6 C 60 14 105/62 94 Laboratory Results Laboratory Results WBC 7.14 K/uL (4.8-10.8) 11/29/21 05:43 RBC 3.95 M/uL (4.2-5.4) L 11/29/21 05:43 Hgb 11.2 g/dL (12.0-16.0) L D 11/29/21 05:43 POC Hgb 14.3 g/dl (12.0-16.0) 11/27/21 22:43 Hct 32.8 % (37-47) L 11/29/21 05:43 POC Hct 42 % (37-47) 11/27/21 22:43 MCV 83.0 fL (80-100) 11/29/21 05:43 MCH 28.4 pg (25-34) 11/29/21 05:43 MCHC 34.1 g/dL (32-36) 11/29/21 05:43 RDW Std Deviation 43.4 fL (36.4-46.3) 11/29/21 05:43 RDW Coeff of Tino 14.3 % (11.5-14.5) 11/29/21 05:43 Plt Count 208 K/uL (130-400) 11/29/21 05:43 MPV 9.6 fL (7.4-10.4) 11/29/21 05:43 Immature Gran % (Auto) 0.4 % 11/29/21 05:43 Neut % (Auto) 55.3 % 11/29/21 05:43 Lymph % (Auto) 38.0 % 11/29/21 05:43 [place] % (Auto) 4.6 % 11/29/21 05:43 Eos % (Auto) 1.4 % 11/29/21 05:43 Baso % (Auto) 0.3 % 11/29/21 05:43 Neut # (Auto) 3.95 K/uL (1.4-6.5) 11/29/21 05:43 Lymph # (Auto) 2.71 K/uL (1.2-3.4) 11/29/21 05:43 [place] # (Auto) 0.33 K/uL (0.11-0.59) 11/29/21 05:43 Eos # (Auto) 0.10 K/uL (0-0.5) 11/29/21 05:43 Baso # (Auto) 0.02 K/uL (0-0.2) 11/29/21 05:43 Immature Gran # (Auto) 0.03 K/uL (0.00-0.02) H 11/29/21 05:43 PT 10.9 Seconds (9.0-12.0) 11/28/21 05:33 INR 1.0 (0.9-1.1) 11/28/21 05:33 APTT 92.5 Seconds (21.0-31.0) H* 11/29/21 05:43 PTT Ratio 3.4 11/29/21 05:43 Activ Coag Time Kaolin 178 SECONDS (94-140) H 11/28/21 11:17 POC pH 7.37 (7.35-7.45) 11/27/21 23:40 POC pCO2 52 mmHg (35-46) H 11/27/21 23:40 POC pO2 < 32 mmHg (80-95) L 11/27/21 23:40 POC HCO3 30 sidney/L (19-24) H 11/27/21 23:40 POC Total CO2 31 mmol/L (24-31) 11/27/21 23:40 POC Base Excess 4.0 sidney/L (-9-1.8) H 11/27/21 23:40 POC ABG O2 Sat 38.0 % (90-95) L 11/27/21 23:40 VBG pH 7.36 (7.36-7.41) 11/28/21 13:30 VBG pCO2 50 mmHg (38-50) 11/28/21 13:30 VBG pO2 48 mmHg 11/28/21 13:30 VBG HCO3 28 mmol/L 11/28/21 13:30 VBG O2 Saturation 82.8 % 11/28/21 13:30 VBG Base Excess 1.7 mEq/L 11/28/21 13:30 Barometric Pressure 731.9 mm/Hg 11/28/21 13:30 POC Sodium 127 mmol/L (135-144) L 11/27/21 22:43 Sodium 137 mmol/L (136-145) 11/29/21 05:43 POC Potassium 3.9 mmol/L (3.3-5.0) 11/27/21 22:43 Potassium 3.9 mmol/L (3.5-5.1) 11/29/21 05:43 POC Chloride 88 mmol/L (101-112) L 11/27/21 22:43 Chloride 105 mmol/L (98-107) 11/29/21 05:43 Carbon Dioxide 28 mmol/L (21-32) 11/29/21 05:43 POC Total CO2 23 mmol/L (24-31) L 11/27/21 22:43 Anion Gap 4 (3-11) 11/29/21 05:43 POC Anion Gap 21.0 mmol/L (16-25) 11/27/21 22:43 POC BUN 21 mg/dl (7-18) H 11/27/21 22:43 BUN 12 mg/dl (6-23) 11/29/21 05:43 Creatinine 0.82 mg/dl (0.6-1.2) 11/29/21 05:43 POC Creatinine 1.0 mg/dl (0.6-1.3) 11/27/21 22:43 Est Cr Clr Drug Dosing 62.4 ml/min 11/29/21 05:43 Est GFR ( Amer) 81.7 ml/min 11/29/21 05:43 Est GFR (Non-Af Amer) 70.5 ml/min 11/29/21 05:43 BUN/Creatinine Ratio 14.6 (10-20) 11/29/21 05:43 Glucose 103 mg/dl (70-99(Fasting)) H 11/29/21 05:43 POC Glucose 98 mg/dl (70-99) 11/29/21 07:08 POC Glucose (other) > 700 mg/dl (70-99) H* 11/27/21 22:43 Calcium 8.4 mg/dl (8.5-10.1) L 11/29/21 05:43 POC Ioniz Calcium [place] 1.27 mmol/l (1.12-1.32) 11/27/21 22:43 Magnesium 2.3 mg/dl (1.7-2.4) 11/29/21 05:43 Total Bilirubin 0.6 mg/dl (0.2-1.0) 11/27/21 22:40 AST 21 U/L (13-39) 11/27/21 22:40 ALT 25 U/L (7-52) 11/27/21 22:40 Alkaline Phosphatase 79 U/L (34-104) 11/27/21 22:40 Troponin I High Sens 2155.2 pg/ml (0-14) H* D 11/28/21 22:37 Total Protein 7.2 gm/dl (6.0-8.3) 11/27/21 22:40 Albumin 3.9 gm/dl (3.4-5.0) 11/27/21 22:40 Globulin 3.3 gm/dl (2.5-4.0) 11/27/21 22:40 Albumin/Globulin Ratio 1.2 (0.9-2) 11/27/21 22:40 Lipase 25 U/L (11-82) 11/27/21 22:40 Urine Color [place] 11/29/21 04:45 Urine Appearance Clear (Clear) 11/29/21 04:45 Urine pH 5.0 (4.5-7.5) 11/29/21 04:45 Ur Specific [place] 1.010 (1.000-1.030) 11/29/21 04:45 Urine Protein Negative (Negative) 11/29/21 04:45 Urine Glucose (UA) Trace (Negative) H 11/29/21 04:45 Urine Ketones Negative (Negative) 11/29/21 04:45 Urine Blood Negative (Negative) 11/29/21 04:45 Urine Nitrite Negative (Negative) 11/29/21 04:45 Urine Bilirubin Negative (Negative) 11/29/21 04:45 Urine Urobilinogen Negative (Negative) 11/29/21 04:45 Ur Leukocyte Esterase Negative (Negative) 11/29/21 04:45 SARS-CoV-2, RNA, NAAT NEGATIVE (NEGATIVE) 11/28/21 00:20 Impressions Chest CTA 11/27/21 22:39 CHEST CTA for AORTIC DISSECTION CT DOSE: 632.31 mGy.cm HISTORY: severe mid chest pain to back TECHNIQUE: Multiaxial CT images of the chest were performed both before and after the intravenous administration of contrast to evaluate the aorta. Maximal intensity projection images were also obtained. A dose lowering technique was utilized adhering to the principles of ALARA. COMPARISON STUDY: Chest CTA 08/09/2019. FINDINGS: Noncontrast imaging through the chest shows no evidence for an intramural hematoma within the thoracic aorta. Normal caliber thoracic aorta with no evidence for dissection. The central pulmonary arteries are patent. No pleural or pericardial effusions. The heart is normal in size. No mediastinal or hilar lymphadenopathy. The thyroid gland enhances normally. Moderate to severe circumferential thickening of the mid to distal esophagus with mild paraesophageal edema. Mildly distended and fluid-filled stomach. The visualized liver, spleen, and adrenal glands are unremarkable. No pneumomediastinum or pneumothorax. The central airways are patent. No focal lung consolidations to suggest pneumonia. No fractures within the visualized osseous structures. Extensive calcified plaque within the coronary arteries. IMPRESSION: 1. No evidence for an aortic dissection. 2. The central pulmonary arteries are patent. 3. Moderate to severe circumferential thickening involving the mid to distal esophagus with mild paraesophageal edema. This has progressed in the interval and favors a nonspecific esophagitis. GI consultation recommended to exclude the less likely possibility of an underlying esophageal lesion. ACT 112: Positive. There are findings on this exam that require communication between the performing entity and the patient following Patient Test Result Information Act ([place] Act 112) guidelines. Electronically signed by: Vijay Vega M.D. 11/28/2021 8:13 AM Resident Activity Tracking Resident Involvement: Resident Care Provided Care Provided: Adult Hospital Medicine (1) GERD (gastroesophageal reflux disease) Esophagitis presence: without esophagitis Qualified Code(s): K21.9 - Gastro- esophageal reflux disease without esophagitis (2) HTN (hypertension) Hypertension type: essential hypertension Qualified Code(s): I10 - Essential (primary) hypertension
[2021-11-29] MEDS: MoRPHine SULFATE 4 MG/ML 1 ML CARP\\VIAL IV PRN ×2 (08:04→12:06)
[2021-11-29] MEDS: INSULIN ASPART PER UNIT SC SCH ×4 (08:11→20:43)
[2021-11-29] MEDS: METOPROLOL TARTRATE 25 MG TAB PO SCH ×2 (08:29→20:47)
[2021-11-29] MEDS: lisinopril 10 MG TAB PO SCH (08:30)
[2021-11-29] MEDS: CLOPIDOGREL BISULFATE 75 MG TAB PO SCH (08:30)
[2021-11-29] MEDS: ROSUVASTATIN CALCIUM 20 MG TAB PO SCH (08:30)
[2021-11-29] MEDS: PANTOprazole 40 MG TAB PO SCH ×2 (08:30→20:48)
[2021-11-29] MEDS: amLODIPine BESYLATE 5 MG TAB PO SCH (08:31)
[2021-11-29] MEDS: FAMOTIDINE 20 MG TAB PO SCH ×2 (08:31→20:45)
[2021-11-29] MEDS: INSULIN GLARGINE SOLOSTAR 100 UNITS/ML 3 ML PEN SC SCH ×2 (08:32→20:46)
[2021-11-29] MEDS ORDERED: INSULIN GLARGINE SOLOSTAR 100 UNITS/ML 3 ML PEN SC SCH (09:00)
--- NOTE | 2021-11-29 09:52 | Cardiology Progress Note ---
Date of Service November 29, 2021 Assessment & Plan (1) Acute non-ST elevation myocardial infarction (NSTEMI): (2) CAD (coronary artery disease): (3) S/P coronary artery stent placement: (4) HTN (hypertension): (5) Dyslipidemia: Plan: ASSESSMENT/PLAN: 1. NSTEMI: This appears appears an acute coronary syndrome involving the circumflex distribution. Decision was made to manage medically based on her anatomy in the small caliber of her vessels. Cardiac biomarkers trending down words. Will continue heparinization throughout today. Will attempt to wean nitrates over the course of today. Continue metoprolol, aspirinand Plavix. 2. CAD s/p PCI (LAD, Cx OM, RCA): Continue aspirin, beta-stephani, ANNA- inhibitor, high-intensity statin therapy. Catheterization revealed poor anatomy for percutaneous or surgical intervention. 3. Hypertension: Good control currently. 4. Dyslipidemia: Continue high-intensity statin therapy. 5. Esophagitis: Possibly contributing to her current precordial pain. 6. Diabetes: Severely elevated glucose on arrival. 7. Chest pain: She does have symptoms of severe precordial chest discomfort immediately after eating even small amounts. I think this is less characteristic of angina and more characteristic of a GI disturbance possibly esophagitis. While she certainly is at risk of postprandial angina, the sudden onset of symptoms immediately following even very small ingestion of food seems an unlikely cause for cardiac chest pain. Her markers are otherwise trending down words and she has no symptoms in between. I think efforts will be made to intensify her GI regimen in the hopes of reducing the symptoms which have now been present for several weeks causing an element of anorexia. Admission and Anticipated Discharge Date Admission Date: November 28, 2021 Subjective Last evening and again this morning the patient has severe precordial chest discomfort associated with eating. Seems that the patient has had symptoms of this nature for several weeks leading up to her admission. She states that she has restricted herself to drinking boost and some saltines in between meals. She has had significant difficulty swallowing solids as this tends to reliably produce precordial discomfort. This morning when attempting to eat some breakfast she had recurrence of these exact symptoms. He stated that it was 10/10 in severity. She had only eaten a very small amount of yogurt which cause these symptoms. She had attempted to eat a small piece of banana as well. The symptoms were nearly immediate after swallowing the food. She was given some morphine with gradual resolution of her symptoms. In between meals she apparently has been feeling well. She denies breathing difficulty currently. She has not had recurrence of her chest pain in between meals. Review of Systems Review of Systems: Per HPI Physical Exam Physical Exam: She is alert and oriented x3. Mood affect appear normal. She answered all questions appropriately. HEENT: Sclerae are anicteric. Pupils are equal and reactive to light and accommodation. Extraocular movements were intact. Neuro: Cranial nerves intact Lungs: Lungs are clear to auscultation bilaterally. There are no rales wheezes or rhonchi. She has normal respiratory effort without use of accessory muscles. There is normal pulmonary excursion. Cardiac: The rhythm was regular. S1 and S2 were normal. There are no murmurs on examination. The PMI was not markedly displaced on palpation. Extremities: She appeared to have good perfusion of both hands. There was ecchymosis at the site of radial access on the right. However, she did have a palpable pulse. The left hand was also well perfused with a good radial pulse. Mild edema in both hands. There is no evidence cyanosis or clubbing. There was no evidence of significant peripheral edema bilaterally. Skin: There are no rashes noted on examination today. Results & Data ([facility]) Vital Signs (Past 12 Hours) Vital Signs Temp Pulse Pulse Pulse Resp BP BP 11/29/21 08:07 64 133/67 11/29/21 07:30 36.4 C L 56 L 18 114/67 11/29/21 02:51 36.5 C 54 L 16 105/66 11/29/21 00:33 50 L 11/28/21 23:00 36.4 C L 51 L 20 83/51 L Pulse Ox 11/29/21 08:07 11/29/21 07:30 95 11/29/21 02:51 98 11/29/21 00:33 11/28/21 23:00 96 Laboratory Results Abnormal Lab Results 11/28/21 11/28/21 11/28/21 11:17 12:51 13:30 WBC RBC Hgb Hct MCV MCH MCHC RDW Std Deviation RDW Coeff of Tino Plt Count MPV Immature Gran % (Auto) Neut % (Auto) Lymph % (Auto) [place] % (Auto) Eos % (Auto) Baso % (Auto) Neut # (Auto) Lymph # (Auto) [place] # (Auto) Eos # (Auto) Baso # (Auto) Immature Gran # (Auto) APTT PTT Ratio Activ Coag Time Kaolin 178 H VBG pH VBG pCO2 VBG pO2 VBG HCO3 VBG O2 Saturation VBG Base Excess Barometric Pressure Sodium Potassium Chloride Carbon Dioxide Anion Gap BUN Creatinine Est Cr Clr Drug Dosing Est GFR ( Amer) Est GFR (Non-Af Amer) BUN/Creatinine Ratio Glucose POC Glucose 341 H* Calcium Magnesium Cancelled Troponin I High Sens Urine Color Urine Appearance Urine pH Ur Specific [place] Urine Protein Urine Glucose (UA) Urine Ketones Urine Blood Urine Nitrite Urine Bilirubin Urine Urobilinogen Ur Leukocyte Esterase 11/28/21 11/28/21 11/28/21 13:30 13:30 13:30 WBC RBC Hgb Hct MCV MCH MCHC RDW Std Deviation RDW Coeff of Tino Plt Count MPV Immature Gran % (Auto) Neut % (Auto) Lymph % (Auto) [place] % (Auto) Eos % (Auto) Baso % (Auto) Neut # (Auto) Lymph # (Auto) [place] # (Auto) Eos # (Auto) Baso # (Auto) Immature Gran # (Auto) APTT 31.3 H PTT Ratio 1.1 Activ Coag Time Kaolin VBG pH 7.36 VBG pCO2 50 VBG pO2 48 VBG HCO3 28 VBG O2 Saturation 82.8 VBG Base Excess 1.7 Barometric Pressure 731.9 Sodium 131 L Potassium 4.2 Chloride 97 L Carbon Dioxide 26 Anion Gap 8 BUN 16 Creatinine 0.85 Est Cr Clr Drug Dosing 60.3 Est GFR ( Amer) 78.2 Est GFR (Non-Af Amer) 67.5 BUN/Creatinine Ratio 18.8 Glucose 340 H* POC Glucose Calcium 9.4 Magnesium 1.9 Troponin I High Sens Urine Color Urine Appearance Urine pH Ur Specific [place] Urine Protein Urine Glucose (UA) Urine Ketones Urine Blood Urine Nitrite Urine Bilirubin Urine Urobilinogen Ur Leukocyte Esterase 11/28/21 11/28/21 11/28/21 15:31 15:45 16:10 WBC RBC Hgb Hct MCV MCH MCHC RDW Std Deviation RDW Coeff of Tino Plt Count MPV Immature Gran % (Auto) Neut % (Auto) Lymph % (Auto) [place] % (Auto) Eos % (Auto) Baso % (Auto) Neut # (Auto) Lymph # (Auto) [place] # (Auto) Eos # (Auto) Baso # (Auto) Immature Gran # (Auto) APTT PTT Ratio Activ Coag Time [place]olin VBG pH VBG pCO2 VBG pO2 VBG HCO3 VBG O2 Saturation VBG Base Excess Barometric Pressure Sodium Potassium Chloride Carbon Dioxide Anion Gap BUN Creatinine Est Cr Clr Drug Dosing Est GFR ( Amer) Est GFR (Non-Af Amer) BUN/Creatinine Ratio Glucose POC Glucose 288 H 290 H Calcium Magnesium Troponin I High Sens 3196.7 H* D Urine Color Urine Appearance Urine pH Ur Specific [place] Urine Protein Urine Glucose (UA) Urine Ketones Urine Blood Urine Nitrite Urine Bilirubin Urine Urobilinogen Ur Leukocyte Esterase 11/28/21 11/28/21 11/28/21 20:24 20:30 22:37 WBC RBC Hgb Hct MCV MCH MCHC RDW Std Deviation RDW Coeff of Tino Plt Count MPV Immature Gran % (Auto) Neut % (Auto) Lymph % (Auto) [place] % (Auto) Eos % (Auto) Baso % (Auto) Neut # (Auto) Lymph # (Auto) [place] # (Auto) Eos # (Auto) Baso # (Auto) Immature Gran # (Auto) APTT 121.6 H* PTT Ratio 4.4 Activ Coag Time Kaolin VBG pH VBG pCO2 VBG pO2 VBG HCO3 VBG O2 Saturation VBG Base Excess Barometric Pressure Sodium Potassium Chloride Carbon Dioxide Anion Gap BUN Creatinine Est Cr Clr Drug Dosing Est GFR ( Amer) Est GFR (Non-Af Amer) BUN/Creatinine Ratio Glucose POC Glucose 222 H Calcium Magnesium Troponin I High Sens 2155.2 H* D Urine Color Urine Appearance Urine pH Ur Specific [place] Urine Protein Urine Glucose (UA) Urine Ketones Urine Blood Urine Nitrite Urine Bilirubin Urine Urobilinogen Ur Leukocyte Esterase 11/29/21 11/29/21 11/29/21 04:45 05:43 05:43 WBC 7.14 RBC 3.95 L Hgb 11.2 L D Hct 32.8 L MCV 83.0 MCH 28.4 MCHC 34.1 RDW Std Deviation 43.4 RDW Coeff of Tino 14.3 Plt Count 208 MPV 9.6 Immature Gran % (Auto) 0.4 Neut % (Auto) 55.3 Lymph % (Auto) 38.0 [place] % (Auto) 4.6 Eos % (Auto) 1.4 Baso % (Auto) 0.3 Neut # (Auto) 3.95 Lymph # (Auto) 2.71 [place] # (Auto) 0.33 Eos # (Auto) 0.10 Baso # (Auto) 0.02 Immature Gran # (Auto) 0.03 H APTT PTT Ratio Activ Coag Time Kaolin VBG pH VBG pCO2 VBG pO2 VBG HCO3 VBG O2 Saturation VBG Base Excess Barometric Pressure Sodium 137 Potassium 3.9 Chloride 105 Carbon Dioxide 28 Anion Gap 4 BUN 12 Creatinine 0.82 Est Cr Clr Drug Dosing 62.4 Est GFR ( Amer) 81.7 Est GFR (Non-Af Amer) 70.5 BUN/Creatinine Ratio 14.6 Glucose 103 H POC Glucose Calcium 8.4 L Magnesium 2.3 Troponin I High Sens Urine Color [place] Urine Appearance Clear Urine pH 5.0 Ur Specific [place] 1.010 Urine Protein Negative Urine Glucose (UA) Trace H Urine Ketones Negative Urine Blood Negative Urine Nitrite Negative Urine Bilirubin Negative Urine Urobilinogen Negative Ur Leukocyte Esterase Negative 11/29/21 11/29/21 05:43 07:08 WBC RBC Hgb Hct MCV MCH MCHC RDW Std Deviation RDW Coeff of Tino Plt Count MPV Immature Gran % (Auto) Neut % (Auto) Lymph % (Auto) [place] % (Auto) Eos % (Auto) Baso % (Auto) Neut # (Auto) Lymph # (Auto) [place] # (Auto) Eos # (Auto) Baso # (Auto) Immature Gran # (Auto) APTT 92.5 H* PTT Ratio 3.4 Activ Coag Time [place]olin VBG pH VBG pCO2 VBG pO2 VBG HCO3 VBG O2 Saturation VBG Base Excess Barometric Pressure Sodium Potassium Chloride Carbon Dioxide Anion Gap BUN Creatinine Est Cr Clr Drug Dosing Est GFR ( Amer) Est GFR (Non-Af Amer) BUN/Creatinine Ratio Glucose POC Glucose 98 Calcium Magnesium Troponin I High Sens Urine Color Urine Appearance Urine pH Ur Specific [place] Urine Protein Urine Glucose (UA) Urine Ketones Urine Blood Urine Nitrite Urine Bilirubin Urine Urobilinogen Ur Leukocyte Esterase Diagnostic Findings Cardiac catheterization performed 11/28/2021: 1. Left main: Long vessel and large caliber. Distal LM 30-40%. 2. Left anterior descending: Ostial LAD 40%. Mid LAD stent with luminal irregularities. Mid LAD 70% followed by bifurcation of small to medium diagonal vessel and then another 80-90% stenosis within the mid LAD. Distal LAD long segment of 70-80% stenosis. Mid to distal LAD is small in caliber and diffusely diseased. 3. Circumflex: Small caliber vessel and severely diseased. Circumflex gives rise to very small caliber OM1 and small caliber OM 2. Proximal to mid circumflex long area of 90% stenosis. OM2 proximal 90%. OM 2 stent subtotal occlusion within the distal stent margin. [id number] collaterals to OM2. 4. Right coronary artery: RCA is dominant. Proximal, mid, and distal RCA stents with diffuse [id number] InStent restenoses including 70-80% stenosis within the mid RCA stent. Just distal to stent margin, distal RCA 70- 80%. Distal RCA 80-90% at bifurcation of PDA and PL. PDA and PL without significant CAD. Minimal right to left collaterals. Echocardiogram performed 11/28/2021: Normal LV systolic function 50-55%. Regional wall motion abnormalities involving the inferolateral wall. Moderate LVH. No significant valvular abnormalities. PG Care Time/CCT Total # of Minutes Spent Total Time Spent with Patient: Total time spent is greater than 50% in coordination of care (as documented) at patient's floor/unit and/or counseling patient: Coding Level of Care Code 85179 Subseq Hosp Care Lvl 2 Diagnoses Acute non-ST elevation myocardial infarction (NSTEMI) I21.4 CAD (coronary artery disease) I25.10 Coronary Disease-Associated Artery/Lesion type: [place] artery [place] vs. transplanted heart: [place] heart Associated angina: angina presence unspecified S/P coronary artery stent placement Z95.5 HTN (hypertension) I10 Dyslipidemia E78.5 (1) CAD (coronary artery disease) Coronary Disease-Associated Artery/Lesion type: [place] artery [place] vs. transplanted heart: [place] heart Associated angina: angina presence unspecified Qualified Code(s): I25.10 - Atherosclerotic heart disease of [place] coronary artery without angina pectoris
[2021-11-29] MEDS ORDERED: ALUMINUM/MAGNESIUM SUSP 18 ML, LIDOCAINE VISCOUS 2% SOLN 6 ML, BARCODE IDENTIFIER 1 EA PO ONE (10:15)
[2021-11-29] MEDS: ASPIRIN 81 MG ECTAB PO SCH (10:46)
[2021-11-29] MEDS: ONDANSETRON INJ 2 MG/ML 2 ML VIAL IV PRN (10:55)
--- NOTE | 2021-11-29 11:47 | Electrocardiogram Report ---
Test Reason : Blood Pressure : / mmHG Vent. Rate : 065 BPM Atrial Rate : 065 BPM P-R Int : 162 ms QRS Dur : 072 ms QT Int : 526 ms P-R-T Axes : 000 174 -34 degrees QTc Int : 547 ms Normal sinus rhythm Right axis deviation T wave abnormality, consider anterolateral ischemia or evolving ME Prolonged QT Abnormal ECG When compared with ECG of 28-NOV-2021 15:07, (unconfirmed) QRS axis Shifted right Confirmed by Matty Pinto ([id number]) on 11/29/2021 11:47:22 AM Referred By: REFERRED SELF Confirmed By:Logan Pinto
--- NOTE | 2021-11-29 11:54 | Electrocardiogram Report ---
Test Reason : Blood Pressure : / mmHG Vent. Rate : 056 BPM Atrial Rate : 056 BPM P-R Int : 168 ms QRS Dur : 066 ms QT Int : 532 ms P-R-T Axes : 066 052 262 degrees QTc Int : 513 ms Sinus bradycardia Low voltage QRS T wave abnormality, consider inferolateral ischemia Prolonged QT Abnormal ECG When compared with ECG of 28-NOV-2021 17:08, (unconfirmed) QRS axis Shifted left Confirmed by Matty Pinto ([id number]) on 11/29/2021 11:53:58 AM Referred By: REFERRED SELF Confirmed By:Logan Pinto
[2021-11-29 15:10] LABS: Partial Thromboplastin Ratio 1.4; Partial Thromboplastin Time 39.8 Seconds (21.0-31.0)
[2021-11-29] MEDS: NITROGLYCERIN/D5W 100MCG/ML 250 ML IV SCH (17:24)
--- NOTE | 2021-11-29 17:49 | Billing Data ---
Date of Service November 29, 2021 Coding Level of Care Code 74917 Subseq Hosp Care Lvl 2
[2021-11-29 23:15] LABS: Partial Thromboplastin Ratio 1.8
[2021-11-29 23:26] LABS: Partial Thromboplastin Time 48.6 Seconds (21.0-31.0)
[2021-11-30 04:05] LABS: Mean Corpuscular Hemoglobin 28.2 pg (25-34); Mean Corpuscular Hgb Conc 33.3 g/dL (32-36); Mean Corpuscular Volume 84.6 fL (80-100); Mean Platelet Volume 9.6 fL (7.4-10.4); Platelet Count 191 K/uL (130-400); RDW Coefficient of Variation 14.6 % (11.5-14.5); RDW Standard Deviation 45.1 fL (36.4-46.3); White Blood Count 5.48 K/uL (4.8-10.8)
[2021-11-30 04:27] LABS: Albumin Globulin Ratio 1.3 (0.9-2); Albumin Level 2.8 gm/dl (3.4-5.0); BUN Creatinine Ratio 12.3 (10-20); Bilirubin,Total 0.3 mg/dl (0.2-1.0); Calcium 8.4 mg/dl (8.5-10.1); Creatinine Clr Calc Pharmacy 63.2 ml/min; Est GFR (African American) 82.9 ml/min; Est GFR (Non-African American) 71.5 ml/min; Globulin 2.2 gm/dl (2.5-4.0); Potassium 3.9 mmol/L (3.5-5.1)
[2021-11-30 04:29] LABS: ALC (manual) 2.43 K/uL (1.2-3.4); ANC (manual) 2.66 K/uL (1.4-6.5); Basophils # (manual) 0.05 K/uL (0-0.2); Basophils % (manual) 0.9 %; Eosinophils # (manual) 0.05 K/uL (0-0.5); Eosinophils % (manual) 0.9 %; Lymphocytes # (manual) 1.62 K/uL (1.2-3.4); Lymphocytes % (manual) 29.6 %; Monocytes # (manual) 0.28 K/uL (0.11-0.59); Monocytes % (manual) 5.2 %; Neutrophils # (manual) 2.66 K/uL (1.4-6.5); Neutrophils % (manual) 48.6 %; Reactive Lymphocytes # (manual) 0.81 K/uL; Reactive Lymphocytes % (manual) 14.8 %
[2021-11-30 04:36] LABS: Partial Thromboplastin Ratio 2.3
[2021-11-30 04:40] LABS: Partial Thromboplastin Time 64.3 Seconds (21.0-31.0)
[2021-11-30] MEDS: ACETAMINOPHEN 325 MG TAB PO SCH ×3 (05:31→20:17)
--- NOTE | 2021-11-30 07:35 | Hospitalist Progress Note ---
Date of Service November 30, 2021 Assessment & Plan (1) Acute non-ST elevation myocardial infarction (NSTEMI): Plan: 76 yo F Hx CAD s/p stents, HTN, HLD, DM2, GERD admitted for NSTEMI and suspected HHS. NSTEMI: Cardiac catheterization performed with evidence of severe multivessel disease WITHOUT target areas for CABG consideration. Unlikely to be able to place stent given disease, however can be considered with Cardiology should patient's symptoms not improve with medical management. Discontinuing heparin drip today Plan for medical management given patient is poor CABG candidate and poor stent candidate, appreciate cardiology's continuing assistance with management Medications as follows: Metoprolol 25mg BID Amlodipine 5mg daily Rosuvastatin 40mg daily Ezetimibe daily Lisinopril 10mg daily Aspirin 81mg daily Plavix daily Patient will need aggressive BSG control both now inpatient and on discharge to maintain her current level of cardiac disease; see below. Esophagitis Pain - immediate pain following consumption of any solid or semisolid food, able to tolerate liquids - CT chest imaging showing inflammation surrounding base of esophagus likely indicative of esophagitis - mild improvement of symptoms with GI cocktail. - esophageal pain less likely to be steal syndrome-like cardiac origin given that the pain is immediately after eating rather than half an hour later while digesting. - diet switched from diabetic regular to clear liquid to promote intake of nutrition without emesis - appreciate input from GI regarding further imaging/scope/medication management of symptoms - famotidine and pantoprazole converted from PO to IV BID today Dehydration with Hyperglycemia in DM2 History of uncontrolled DM2 with most recent A1c ~12; this is actually decreased from previous readings in the last several years. Presented to hospital with BSG 928. Encourage PO fluid intake Insulin coverage: Lantus 20u BID and bolus (see tight sliding scale) for DM2. Can titrate as necessary. DM2 diet. Aggressive diabetic education while admitted; patient is contemplative and ready to initiate action about her role in dietary modification to aid in her BSG control. would benefit from CGM at home for BSG monitoring HLD: Continue statin and ezetimibe. HTN: Continue amlodipine, metoprolol, lisinopril. GERD: PPI and H2 as above Code Status: DNR/DNI FEN: Clear liquid, DM2 diet DVT ppx: heparin sq Dispo: Telemetry (2) Hyperglycemia due to type 2 diabetes mellitus: (3) Anxiety: (4) GERD (gastroesophageal reflux disease): (5) HTN (hypertension): (6) Dyslipidemia: (7) Mckeon esophagus: (8) Diabetic gastroparesis: (9) Esophagitis: Admission and Anticipated Discharge Date Admission Date: November 28, 2021 Supervising Physician Co-Signing Physician Notes I personally examined the patient and verified all hathaway points of history and exam, discussed case, and agree with decision making with Dr Lipscomb Epigastric pain and nausea. More receptive to diabetes education. Vitals noted,resting comfortably nad heent nc at mmm breathing unlabored at rest no focal neuro deficits at rest skin without rashes pallor or icterus Unstable angina/NSTEMI/severe coronary diseasefortunately symptoms resolved on aggressive med management. Continue for now.secondary risk reductiondiabetes being biggest risk Uncontrolled type 2 diabetesappears to have many barriers to care, but more amenable to teaching out. Readdressed the basics as far as hyperglycemic microvascular ischemia, as well as the dire need for lifestyle and self-care for management HHSprobable HHS, certainly hyperglycemic dehydration physiologyimproved with fluids and insulin. Subjective doing better this morning on clear liquid diet. hasn't had chest pain since last night. feeling a little bit better. no emesis. was able to eat a few bites of jello this morning prior to resurgence of esophageal pain. Review of Systems Review of Systems: All systems reviewed & are unremarkable except as noted in Subjective Physical Exam Physical Exam: Constitutional: obese, comfortably sitting up in bed Eyes: EOMI, pupils equal and reactive bilaterally, no scleral icterus Cardiac: RRR, no murmurs, gallops or rubs. Normal S1, S2 Pulm: CTA BL, no wheezes, rhonchi, crackles or rubs, moving air well throughout both lungs Abd: soft, nontender, nondistended, normal bowel sounds, no rebound or guarding Extremities: poorly palpated peripheral pulses at ankles, no edema Results & Data Results & Data ([facility]) Vital Signs (Past 12 Hours) Vital Signs Temp Pulse Pulse Resp BP Pulse Ox 11/30/21 07:19 62 11/30/21 03:00 36.8 C 53 L 20 101/62 95 11/30/21 01:11 49 L 11/29/21 22:43 36.4 C L 50 L 16 104/62 96 Resident Activity Tracking Resident Involvement: Resident Care Provided Care Provided: Adult [facility] (1) GERD (gastroesophageal reflux disease) Esophagitis presence: without esophagitis Qualified Code(s): K21.9 - Gastro- esophageal reflux disease without esophagitis (2) Mckeon esophagus Mckeon's esophagus type: without dysplasia Qualified Code(s): K22.70 - Mckeon's esophagus without dysplasia (3) HTN (hypertension) Hypertension type: essential hypertension Qualified Code(s): I10 - Essential (primary) hypertension
[2021-11-30] MEDS ORDERED: PROCHLORPERAZINE 5 MG in SYRINGE 4 ML IV PRN (07:40)
[2021-11-30] MEDS: INSULIN ASPART PER UNIT SC SCH ×4 (08:11→20:26)
[2021-11-30] MEDS: FAMOTIDINE 20 MG in SYRINGE 3 ML IV SCH ×2 (08:12→20:10)
[2021-11-30] MEDS: PANTOprazole 40 MG in SYRINGE 0 ML IV SCH ×2 (08:12→20:17)
[2021-11-30] MEDS: CLOPIDOGREL BISULFATE 75 MG TAB PO SCH (08:13)
[2021-11-30] MEDS: ROSUVASTATIN CALCIUM 20 MG TAB PO SCH (08:13)
[2021-11-30] MEDS: lisinopril 10 MG TAB PO SCH (08:13)
[2021-11-30] MEDS: METOPROLOL TARTRATE 25 MG TAB PO SCH ×2 (08:13→20:16)
[2021-11-30] MEDS: amLODIPine BESYLATE 5 MG TAB PO SCH (08:13)
[2021-11-30] MEDS: ASPIRIN 81 MG ECTAB PO SCH (08:14)
[2021-11-30] MEDS ORDERED: FLUCONAZOLE PO SCH (09:00)
[2021-11-30] MEDS: INSULIN GLARGINE SOLOSTAR 100 UNITS/ML 3 ML PEN SC SCH ×2 (09:03→20:27)
--- NOTE | 2021-11-30 10:53 | Cardiology Progress Note ---
Date of Service November 30, 2021 Assessment & Plan (1) Acute non-ST elevation myocardial infarction (NSTEMI): (2) CAD (coronary artery disease): (3) S/P coronary artery stent placement: (4) HTN (hypertension): (5) Dyslipidemia: Plan: ASSESSMENT/PLAN: 1. NSTEMI: This appears appears an acute coronary syndrome involving the circumflex distribution. Decision was made to manage medically based on her anatomy in the small caliber of her vessels. Nitrates discontinued. Will discontinue heparin today. We will continue dual anti-platelet therapy. I no exertional chest pain. 2. CAD s/p PCI (LAD, Cx OM, RCA): Continue aspirin, beta-stephani, ANNA- inhibitor, high-intensity statin therapy. Catheterization revealed poor anatomy for percutaneous or surgical intervention. 3. Hypertension: Good control currently. 4. Dyslipidemia: Continue high-intensity statin therapy. 5. Esophagitis: Possibly contributing to her current precordial pain. Trying a liquid diet with some improvement. 6. Diabetes: Severely elevated glucose on arrival. Improved 7. Chest pain: Improved with the liquid diet. This morning fewer symptoms. I will stop her heparin today. We will continue her medical therapy. We can liberalize her activity to monitor her for symptoms. I will obtain a limited echocardiogram tomorrow morning. She has likely completed her infarct. Admission and Anticipated Discharge Date Admission Date: November 28, 2021 Subjective This morning the patient claims to be feeling better. Last evening she was given a clear liquid diet. She had similar symptoms and did experience vomiting. This morning she was able to tolerate some liquid breakfast and is currently feeling well. She claims to been ambulatory back in to the bathroom without symptoms of chest discomfort. She has some mild dyspnea which he states is normal for her. No dizziness or lightheadedness. No sense of palpitation. Review of Systems Review of Systems: Per HPI Physical Exam Physical Exam: She is alert and oriented x3. Mood affect appear normal. She answered all questions appropriately. HEENT: Sclerae are anicteric. Pupils are equal and reactive to light and accommodation. Extraocular movements were intact. Neuro: Cranial nerves intact Lungs: Lungs are clear to auscultation bilaterally. There are no rales wheezes or rhonchi. She has normal respiratory effort without use of accessory muscles. There is normal pulmonary excursion. Cardiac: The rhythm was regular. S1 and S2 were normal. There are no murmurs on examination. The PMI was not markedly displaced on palpation. Extremities: She appeared to have good perfusion of both hands. Skin: There are no rashes noted on examination today. Results & Data ([facility]) Vital Signs (Past 12 Hours) Vital Signs Temp Pulse Pulse Resp BP Pulse Ox 11/30/21 07:19 62 11/30/21 07:05 36.5 C 59 L 18 104/63 95 11/30/21 03:00 36.8 C 53 L 20 101/62 95 11/30/21 01:11 49 L Laboratory Results Abnormal Lab Results 11/29/21 11/29/21 11/29/21 11:29 14:35 16:25 WBC RBC Hgb Hct MCV MCH MCHC RDW Std Deviation RDW Coeff of Tino Plt Count MPV Neutrophils % (Manual) Lymphocytes % (Manual) Reactive Lymphs % (Man) Monocytes % (Manual) Eosinophils % (Manual) Basophils % (Manual) Neutrophils # (Manual) Total Absolute Neuts Lymphocytes # (Manual) Reactive Lymphs # Total Abs Lymphocytes Monocytes # (Manual) Eosinophils # (Manual) Basophils # (Manual) APTT 39.8 H PTT Ratio 1.4 Sodium Potassium Chloride Carbon Dioxide Anion Gap BUN Creatinine Est Cr Clr Drug Dosing Est GFR ( Amer) Est GFR (Non-Af Amer) BUN/Creatinine Ratio Glucose POC Glucose 119 H 131 H Calcium Total Bilirubin AST ALT Alkaline Phosphatase Total Protein Albumin Globulin Albumin/Globulin Ratio 11/29/21 11/29/21 11/30/21 20:06 22:17 03:51 WBC 5.48 RBC 3.90 L Hgb 11.0 L Hct 33.0 L MCV 84.6 MCH 28.2 MCHC 33.3 RDW Std Deviation 45.1 RDW Coeff of Tino 14.6 H Plt Count 191 MPV 9.6 Neutrophils % (Manual) 48.6 Lymphocytes % (Manual) 29.6 Reactive Lymphs % (Man) 14.8 Monocytes % (Manual) 5.2 Eosinophils % (Manual) 0.9 Basophils % (Manual) 0.9 Neutrophils # (Manual) 2.66 Total Absolute Neuts 2.66 Lymphocytes # (Manual) 1.62 Reactive Lymphs # 0.81 Total Abs Lymphocytes 2.43 Monocytes # (Manual) 0.28 Eosinophils # (Manual) 0.05 Basophils # (Manual) 0.05 APTT 48.6 H* PTT Ratio 1.8 Sodium Potassium Chloride Carbon Dioxide Anion Gap BUN Creatinine Est Cr Clr Drug Dosing Est GFR ( Amer) Est GFR (Non-Af Amer) BUN/Creatinine Ratio Glucose POC Glucose 130 H Calcium Total Bilirubin AST ALT Alkaline Phosphatase Total Protein Albumin Globulin Albumin/Globulin Ratio 11/30/21 11/30/21 11/30/21 03:51 03:51 07:07 WBC RBC Hgb Hct MCV MCH MCHC RDW Std Deviation RDW Coeff of Tino Plt Count MPV Neutrophils % (Manual) Lymphocytes % (Manual) Reactive Lymphs % (Man) Monocytes % (Manual) Eosinophils % (Manual) Basophils % (Manual) Neutrophils # (Manual) Total Absolute Neuts Lymphocytes # (Manual) Reactive Lymphs # Total Abs Lymphocytes Monocytes # (Manual) Eosinophils # (Manual) Basophils # (Manual) APTT 64.3 H* PTT Ratio 2.3 Sodium 138 Potassium 3.9 Chloride 106 Carbon Dioxide 28 Anion Gap 4 BUN 10 Creatinine 0.81 Est Cr Clr Drug Dosing 63.2 Est GFR ( Amer) 82.9 Est GFR (Non-Af Amer) 71.5 BUN/Creatinine Ratio 12.3 Glucose 163 H POC Glucose 120 H Calcium 8.4 L Total Bilirubin 0.3 AST 13 ALT 13 Alkaline Phosphatase 53 Total Protein 5.0 L Albumin 2.8 L Globulin 2.2 L Albumin/Globulin Ratio 1.3 Diagnostic Findings Cardiac catheterization performed 11/28/2021: 1. Left main: Long vessel and large caliber. Distal LM 30-40%. 2. Left anterior descending: Ostial LAD 40%. Mid LAD stent with luminal irregularities. Mid LAD 70% followed by bifurcation of small to medium diagonal vessel and then another 80-90% stenosis within the mid LAD. Distal LAD long segment of 70-80% stenosis. Mid to distal LAD is small in caliber and diffusely diseased. 3. Circumflex: Small caliber vessel and severely diseased. Circumflex gives rise to very small caliber OM1 and small caliber OM 2. Proximal to mid circumflex long area of 90% stenosis. OM2 proximal 90%. OM 2 stent subtotal occlusion within the distal stent margin. Crpo-ni-gpxo collaterals to OM2. 4. Right coronary artery: RCA is dominant. Proximal, mid, and distal RCA stents with diffuse [id number] InStent restenoses including 70-80% stenosis within the mid RCA stent. Just distal to stent margin, distal RCA 70- 80%. Distal RCA 80-90% at bifurcation of PDA and PL. PDA and PL without significant CAD. Minimal right to left collaterals. Echocardiogram performed 11/28/2021: Normal LV systolic function 50-55%. Regional wall motion abnormalities involving the inferolateral wall. Moderate LVH. No significant valvular abnormalities. PG Care Time/CCT Total # of Minutes Spent Total Time Spent with Patient: Total time spent is greater than 50% in coordination of care (as documented) at patient's floor/unit and/or counseling patient: Coding Level of Care Code 12261 Subseq Hosp Care Lvl 2 Diagnoses Acute non-ST elevation myocardial infarction (NSTEMI) I21.4 CAD (coronary artery disease) I25.10 Coronary Disease-Associated Artery/Lesion type: [place] artery Hoh vs. transplanted heart: [place] heart Associated angina: angina presence unspecified S/P coronary artery stent placement Z95.5 HTN (hypertension) I10 Dyslipidemia E78.5 (1) CAD (coronary artery disease) Coronary Disease-Associated Artery/Lesion type: [place] artery Hoh vs. transplanted heart: [place] heart Associated angina: angina presence unspecified Qualified Code(s): I25.10 - Atherosclerotic heart disease of [place] coronary artery without angina pectoris
--- NOTE | 2021-11-30 11:59 | Gastrointestinal Consultation ---
Date of Consultation November 30, 2021 History of Present Illness Reason for Consultation: Odynophagia Attending Physician: Fadi Munoz DO History of Present Illness 76 years old female patient who is admitted with Acute coronary syndrome/NSTEMI and underwent cardiac catheterization which showed complex extensive CAD, reported issues with chest pain after eating food hence GI consulted, her CT scan of the chest showed possible esophagitis. Reports retrosternal chest pain after swallowing, this never happened to her before and just started now after she developed NSTEMI. Denies dysphagia as food eventually does down, no heartburn, no nausea but had an episode of vomiting, no abdominal pain. EGD Allergies Allergy/AdvReac Type Severity Reaction Status Date / Time cephalexin Allergy Intermediate Rash and Verified 11/27/21 23:31 itchiness Cephalosporins Allergy Intermediate Rash and Verified 11/27/21 23:31 itchiness Sulfa (Sulfonamide Allergy Intermediate Hives Verified 11/27/21 23:31 Antibiotics) Home Medications Medication Instructions Recorded Confirmed Type nitroglycerin 0.4 mg sublingual 0.4 mg SUBLINGUAL UD PRN #0 btl 07/27/17 11/27/21 History tablet (Nitrostat) omega 4-lrd-hvs-fish oil 1,000 mg 1,000 mg PO QAM #0 cap 07/27/17 11/27/21 History (120 mg-180 mg) capsule (Fish Oil) cholecalciferol (vitamin D3) 25 1,000 units PO QAM #0 tab 04/05/19 11/27/21 History mcg (1,000 unit) capsule (Vitamin D3) linaclotide 145 mcg capsule 145 mcg PO QAM PRN cap 04/05/19 11/27/21 History (Linzess) rosuvastatin 40 mg tablet 40 mg PO QAM #90 tab 07/18/20 11/27/21 Rx pen needle, diabetic 32 gauge x ea 11/18/20 11/18/21 History 5" (BD Ultra-Fine [place] Pen Needle) insulin aspart U-100 100 unit/mL 20 unit SUBCUT DAILY #2 box 01/21/21 11/27/21 Rx (3 mL) subcutaneous pen (Novolog Flexpen U-100 Insulin aspart) insulin degludec 100 unit/mL (3 33 unit SQ QPM 03/26/21 11/27/21 History mL) subcutaneous pen (Tresiba FlexTouch U-100 insulin) famotidine 20 mg tablet 20 mg PO BID #180 tab 05/07/21 11/27/21 Rx lisinopril 10 mg tablet 10 mg PO QAM #90 tab 05/07/21 11/27/21 Rx ondansetron HCl 4 mg tablet 4 mg PO Q8H PRN #30 tab 06/24/21 11/27/21 Rx flash glucose scanning reader 06/26/21 11/18/21 History (FreeStyle [place] 2 [place]) flash glucose sensor (FreeStyle 06/26/21 11/18/21 History Renan 2 Sensor) blood sugar diagnostic (OneTouch #200 ea 08/14/21 11/18/21 Rx Verio test strips) carvedilol 6.25 mg tablet 6.25 mg PO BID #180 tab 08/19/21 11/27/21 Rx duloxetine 30 mg capsule,delayed 30 mg PO QAM #90 cap 08/19/21 11/27/21 Rx release isosorbide mononitrate 30 mg 60 mg PO QAM #180 tab 08/19/21 11/27/21 Rx tablet,extended release 24 hr chlorthalidone 25 mg tablet 25 mg PO DAILY #30 tab 08/26/21 11/27/21 Rx aspirin 81 mg tablet,delayed 81 mg PO QAM 10/24/21 11/27/21 History release folic acid 1 mg tablet 1 mg PO QAM 30 Days #30 tab 10/30/21 11/27/21 Rx diclofenac sodium 1 % topical gel 2 g TOPICAL QID 10/31/21 11/27/21 History (Arthritis Pain (diclofenac)) Gvoke HypoPen 2-Pack 1 mg/0.2 mL 1 mg SUBCUT .COMPLEX #0.4 ml NS 11/03/21 11/27/21 Rx subcutaneous auto-injector (glucagon) ezetimibe 10 mg tablet (Zetia) 10 mg PO QAM #90 tab 11/03/21 11/27/21 Rx gabapentin 100 mg capsule 100 mg PO HS #30 cap 11/03/21 11/27/21 Rx pantoprazole 40 mg tablet,delayed 40 mg PO BID #60 tab 11/03/21 11/27/21 Rx release buspirone 10 mg tablet 10 mg PO TID #270 tab 11/06/21 11/27/21 Rx metformin 500 mg tablet 1,000 mg PO BID #120 tab 11/07/21 11/27/21 Rx albuterol sulfate 90 mcg/actuation 2 puff INHALATION QID PRN #8.5 g 11/20/21 11/27/21 Rx aerosol inhaler (Ventolin HFA) Patient History Medical History (Updated 11/30/21 @ 07:33 by Margarita Lipscomb MD) Mckeon esophagus Cervical pain (neck) Chest pain Chronic pain syndrome Depression Diabetes mellitus, type 2 IDDM Diabetic gastroparesis Diabetic peripheral neuropathy Dyslipidemia Folic acid deficiency GERD without esophagitis HTN (hypertension) IBS (irritable bowel syndrome) Lumbar spondylosis Myocardial Infarction SD- November 2005, January 2006, Aug 2006 3 total within an 8 month span--[place] [facility] [place]. JULES Non-ST elevation (NSTEMI) myocardial infarction Obesity Pes anserine bursitis Vitamin B12 deficiency Surgical History (Updated 11/30/21 @ 07:33 by Margarita Lipscomb MD) History of cardiac [place] [facility] [place]--s/p stents to RCA November 2005; s/p stents to LAD, LCx in January 2006; s/p stents to RCA in 08/2006 History of cataract surgery BL History of cholecystectomy History of colonoscopy with polypectomy History of esophageal dilatation History of esophagogastroduodenoscopy (EGD) History of lumbar spinal fusion History of tooth extraction all teeth History of total hysterectomy with bilateral salpingo-oophorectomy (BSO) History of total right knee replacement (TKR) S/P coronary artery stent placement s/p stents to RCA November 2005; s/p stents to LAD, LCx in January 2006; s/p stents to RCA in 08/2006 Status post trigger finger release right thumb Family History Brother Myocardial infarction Anxiety Heart disease Hypertension Cancer Sister Family history of reaction to anesthesia difficulty waking Hypertension Heart disease Myocardial infarction Anxiety Cancer Diabetes Father Anxiety Heart disease Hypertension Mother Anxiety Hypertension Heart disease Unknown Cancer skin, GI Denies family history of Ovarian cancer Prostate cancer Breast cancer Colorectal cancer Stroke Social History Smoking Status: Former smoker Tobacco Type: Cigarettes Age Started Using Tobacco: 18; Age Quit Using Tobacco: 57; Cigarettes Per Day: 3 cigarettes a week; Second Hand Exposure: No; Hx Alcohol Use: No Hx Substance Use: Yes Preferred Language: Kyrgyz Communication Ability: Effective Visual Impairment: Limited Hearing Ability: Normal Client Reporting Associate Required: No Beliefs That Will Affect Care: None marital status: / Current Living Situation: Spouse Current Living Situation Comment: apartment building current occupational status: retired and disabled How many Children do You have: 3 Feels Safe at Home: Yes Childhood Exposure to Second-Hand Smoke: No caffeine: Yes (drinks coffee, diet pepsi occasionally ) Dental Care, Regularly: No Physical Activity Frequency: Does not Exercise Seatbelt Use: always Sunscreen Use: No Assistive Devices: Denture - Upper and Glasses Results & Data ([facility]) Vital Signs (Past 12 Hours) Vital Signs Temp Pulse Pulse Resp BP Pulse Ox 11/30/21 11:13 36.7 C 50 L 18 114/67 98 11/30/21 07:19 62 11/30/21 07:05 36.5 C 59 L 18 104/63 95 11/30/21 03:00 36.8 C 53 L 20 101/62 95 11/30/21 01:11 49 L
--- NOTE | 2021-11-30 12:02 | Communication Note ---
Date of Service: November 30, 2021 I was condulted for this patient however this patient follows with [facility], please cancel the consult to me and consult [facility] GI team.
--- NOTE | 2021-11-30 16:53 | Billing Data ---
Date of Service November 30, 2021 Coding Level of Care Code 10393 Subseq Hosp Care Lvl 3
--- NOTE | 2021-11-30 16:53 | Billing Data ---
Date of Service November 30, 2021 Coding Level of Care Code 88940 Subseq Hosp Care Lvl 3
[2021-11-30] MEDS: HEPARIN SOD 5,000 UNIT/0.5 ML VIAL SQ SCH (20:03)
[2021-12-01] MEDS: ACETAMINOPHEN 325 MG TAB PO SCH ×3 (06:10→20:39)
--- NOTE | 2021-12-01 06:48 | Hospitalist Progress Note ---
Date of Service December 01, 2021 Assessment & Plan (1) Acute non-ST elevation myocardial infarction (NSTEMI): Plan: 76yo female with a history of CAD s/p stents, HTN, HLD, DM2, and GERD admitted for NSTEMI and suspected HHS. Underwent cateterization (11/28) and is not a candidate for CABG vs stent. Currently being worked up for esophagitis. NSTEMI Cardiac catheterization (11/28) showing evidence of severe multivessel disease WITHOUT target areas for CABG consideration Unlikely to be able to place stent given disease, however can be considered with Cardiology should patient's symptoms not improve with medical management Heparin drip discontinued; continue heparin sq 5000u bid Cardiology recommends medical management given patient is poor CABG/stent candidate: Metoprolol 25mg BID Amlodipine 5mg qd Rosuvastatin 40mg qd Ezetimibe qd Lisinopril 10mg qd Aspirin 81mg qd Plavix 75mg qd Patient will need aggressive BSG control both now inpatient and on discharge to maintain her current level of cardiac disease; see below. Esophagitis Immediate pain following consumption of any solid or semisolid food, able to tolerate liquids; has been ongoing for six months to a year CT chest imaging showing inflammation surrounding base of esophagus likely indicative of esophagitis Esophageal pain less likely to be steal syndrome-like cardiac origin given that the pain is immediately after eating rather than half an hour later while digesting Diet switched from diabetic regular to diabetic clear liquid to promote intake of nutrition without emesis Gastroenterology consulted, tentatively planning for EGD on 12/02 Continue pantoprazole IV and famotidine IV Dehydration, hyperglycemia, DM2 History of uncontrolled DM2 with most recent A1c ~12; this is actually decreased from previous readings in the last several years BSG 928 on admission, suspected secondary to poor medication adherence Glargine 20u in AM, 10u qhs; continue ISS DM2 diet Aggressive diabetic education while admitted; patient is contemplative and ready to initiate action about her role in dietary modification to aid in her BSG control Would benefit from CGM at home for BSG monitoring Chronic conditions HLD: continue home statin and ezetimibe HTN: continue home amlodipine, metoprolol, lisinopril GERD: PPI and H2 stephani as above FEN: clear liquid, DM2 diet Code status: DNR/DNI DVT ppx: heparin sq Consults: cardiology, gasterenterology PT/OT: ordered Case management: following Dispo: med/surg telemetry (2) Hyperglycemia due to type 2 diabetes mellitus: (3) Anxiety: (4) GERD (gastroesophageal reflux disease): (5) HTN (hypertension): (6) Dyslipidemia: (7) Mckeon esophagus: (8) Diabetic gastroparesis: (9) Esophagitis: Admission and Anticipated Discharge Date Admission Date: November 28, 2021 Supervising Physician Co-Signing Physician Notes Patient seen and examined with PGY-2 Dr. Fuentes. Agree with history, exam findings, assessment and plan of care as outlined. In brief, Ms Rosas is a 76 year old female with hx of CAD s/p stentx3, DM admitted with NSTEMI. Continues to have dysphagia with foods. No chest pain with exertion. Vital signs and nursing notes reviewed. Well appearing. Heart with regular rate and rhythm. No murmur. No edema. Chest is mildly tender over the left costochondral junctions. Lungs are clear to auscultation throughout. Abdomen is soft, minimally tender in the epigastric region. 1. NSTEMI. + troponin, EKG without ischemic changes. Cardiac cath with multi-vessel disease without target areas for possible CABG. Continue metoprolol, amlodipine, crestor, ezetimibe, lisinopril, aspirin, Plavix. 2. Esophagitis in the setting of known history of Barretts esophagus. Continue with famotidine and pantoprazole. Barium swallow with mild narrowing at the distal esophagus. 3. DM2. Uncontrolled. A1C 12%. Continue lantus 20u BID + ssi. Dispo: pending clinical improvement. Subjective Patient seen and evaluated at bedside this morning. No acute events overnight. Patient feels well today, only complaining of mild upper abdominal/left chest discomfort after eating, which is typical for her. No new symptoms or complaints at this time including SOB, nausea, vomiting, lightheadedness, dizziness, and diarrhea. Physical Exam Physical Exam: Constitutional: well-appearing, no acute distress CV: regular rhythm, no murmur appreciated, extremities well-perfused, no LE edema Resp: mild end-expiratory wheezes in lower right and left lobes, improved after coughing, breathing non-labored GI: soft, nondistended, nontender, BS normoactive Neuro: alert, oriented, no focal neurologic deficit appreciated Results & Data Results & Data ([facility]) Vital Signs (Past 12 Hours) Vital Signs Temp Pulse Pulse Resp BP Pulse Ox 12/01/21 02:37 36.5 C 76 16 98/66 L 97 11/30/21 23:21 48 L 11/30/21 22:56 36.6 C 57 L 20 103/62 95 11/30/21 20:15 65 138/61 11/30/21 19:00 36.7 C 58 L 20 112/73 95 Resident Activity Tracking Resident Involvement: Resident Care Provided Care Provided: Adult Hospital Medicine (1) GERD (gastroesophageal reflux disease) Esophagitis presence: without esophagitis Qualified Code(s): K21.9 - Gastro- esophageal reflux disease without esophagitis (2) Mckeon esophagus Mckeon's esophagus type: without dysplasia Qualified Code(s): K22.70 - Mckeon's esophagus without dysplasia (3) HTN (hypertension) Hypertension type: essential hypertension Qualified Code(s): I10 - Essential (primary) hypertension
[2021-12-01 08:23] LABS: Hematocrit (blood only) 37.3 % (37-47); Hemoglobin 12.3 g/dL (12.0-16.0); Mean Corpuscular Hemoglobin 28.1 pg (25-34); Mean Corpuscular Volume 85.4 fL (80-100); Mean Platelet Volume 9.9 fL (7.4-10.4); Platelet Count 183 K/uL (130-400); RDW Coefficient of Variation 14.5 % (11.5-14.5); RDW Standard Deviation 45.2 fL (36.4-46.3); Red Blood Count 4.37 M/uL (4.2-5.4); White Blood Count 4.74 K/uL (4.8-10.8)
[2021-12-01 08:46] LABS: Albumin Globulin Ratio 1.3 (0.9-2); Albumin Level 3.1 gm/dl (3.4-5.0); BUN Creatinine Ratio 10.8 (10-20); Bilirubin,Total 0.4 mg/dl (0.2-1.0); Calcium 8.7 mg/dl (8.5-10.1); Est GFR (African American) 70.2 ml/min; Est GFR (Non-African American) 60.5 ml/min; Globulin 2.3 gm/dl (2.5-4.0); Potassium 3.7 mmol/L (3.5-5.1); Total Protein 5.4 gm/dl (6.0-8.3)
[2021-12-01 09:04] LABS: Basophils # (auto) 0.04 K/uL (0-0.2); Basophils % (auto) 0.8 %; Eosinophils # (auto) 0.11 K/uL (0-0.5); Eosinophils % (auto) 2.3 %; Immature Granulocytes # (auto) 0.02 K/uL (0.00-0.02); Immature Granulocytes % (auto) 0.4 %; Lymphocytes # (auto) 2.41 K/uL (1.2-3.4); Lymphocytes % (auto) 50.8 %; Monocytes # (auto) 0.36 K/uL (0.11-0.59); Monocytes % (auto) 7.6 %; Neutrophils % (auto) 38.1 %
--- NOTE | 2021-12-01 09:05 | Electrocardiogram Report ---
Test Reason : Blood Pressure : / mmHG Vent. Rate : 065 BPM Atrial Rate : 065 BPM P-R Int : 162 ms QRS Dur : 072 ms QT Int : 526 ms P-R-T Axes : 000 174 -34 degrees QTc Int : 547 ms Normal sinus rhythm Right axis deviation T wave abnormality, consider anterolateral ischemia or evolving FL Prolonged QT Abnormal ECG When compared with ECG of 28-NOV-2021 15:07, (unconfirmed) QRS axis Shifted right Confirmed by Matty Pinto ([id number]) on 11/29/2021 11:47:22 AM Also confirmed by Matty Pinto ([id number]), editor in chief Vineet Henderson ([id number]) on 12/01/2021 9:05:19 AM Referred By: REFERRED SELF Confirmed By:Logan Pinto
--- NOTE | 2021-12-01 09:29 | XCELERA ---
[id number]
[2021-12-01] MEDS: INSULIN ASPART PER UNIT SC SCH ×4 (09:31→20:38)
[2021-12-01] MEDS: PANTOprazole 40 MG in SYRINGE 0 ML IV SCH ×2 (09:33→20:37)
[2021-12-01] MEDS: METOPROLOL TARTRATE 25 MG TAB PO SCH ×2 (09:34→20:37)
[2021-12-01] MEDS: HEPARIN SOD 5,000 UNIT/0.5 ML VIAL SQ SCH ×2 (09:35→20:37)
[2021-12-01] MEDS: ROSUVASTATIN CALCIUM 20 MG TAB PO SCH (09:36)
[2021-12-01] MEDS: CLOPIDOGREL BISULFATE 75 MG TAB PO SCH (09:36)
[2021-12-01] MEDS: amLODIPine BESYLATE 5 MG TAB PO SCH (09:36)
[2021-12-01] MEDS: ASPIRIN 81 MG ECTAB PO SCH (09:37)
[2021-12-01] MEDS: lisinopril 10 MG TAB PO SCH (09:38)
[2021-12-01] MEDS: INSULIN GLARGINE SOLOSTAR 100 UNITS/ML 3 ML PEN SC SCH ×2 (09:39→20:39)
[2021-12-01] MEDS: FAMOTIDINE 20 MG in SYRINGE 3 ML IV SCH ×2 (09:42→20:38)
--- NOTE | 2021-12-01 09:57 | Gastrointestinal Consultation ---
Date of Consultation December 01, 2021 Assessment & Plan (1) Dysphagia: Dysphagia: Patient has known history of Mckeon's esophagus. Most recent EGD 03/2021 demonstrated improving esophagitis. Has had some continued difficulty with dysphagia and odynophagia. Tolerating a liquid diet but even still feels as though she still gets things stuck and has pain in her left chest. Plan was for outpatient EGD and colonoscopy. Will need to delay procedures due to recent non-STEMI. At this time will obtain barium swallowing study for further evaluation of symptoms. No evidence of oral thrush. Case reviewed with Dr. To. Please refer to supervising physician addendum for further recommendations. I have spent 40 minutes of discrete time performing the activities of this visit which include but are not limited to review of the medical record, obtaining a history, physical exam, and entering information in the electronic record. (2) Odynophagia: Supervising Physician Co-Signing Physician Notes I have seen and examined the patient. I agree with note above by LUIS FERNANDO Pacheco except as noted below. HPI Pt denies odyphagia. States has dysphagia. Ba swallow table flowed through freely. Mild smooth narrowing distal esophagus but no lesions. PE Abdomen pos bs, soft, no guarding nor rebound. A/P dysphagia---advance to soft. No obvious mucosal lesions and barium passes freely. Perhaps some esophageal spasm. Recommend outpt EGD but wait 6 weeks or more secondary to CO. As the supervising physician, I , Lio To MD have spent 21 minutes of discrete time performing the activities of this visit which include but not limited to review of the medical records, obtaining a history, physical exam and entering information in the electronic record. LUIS FERNANDO Pacheco has reported spending 40 minutes of discrete time with the activities of this visit. History of Present Illness Attending Physician: Shaggy Rodríguez DO History of Present Illness The patient is a pleasant 76-year-old female with a past medical history to include DM 2, CAD s/p stent in 2005, HTN, chronic diastolic CHF, gastroparesis, hyperlipidemia, left knee OA, GERD with Mckeon's esophagus and erosive esophagitis who presented to the emergency department with chest pain and NSTEMI. The GI service is consulted due to complaints of dysphagia and odynophagia. Prior history: 10/24/2021-10/30/2021: Inpatient admission status post fall at home with GI consult due to history of Mckeon's, black stools, anemia, iron deficiency anemia. Patient with history of black stools but heme-negative stool initially. She did have some bright red rectal bleeding with history of hemorrhoids with positive heme stool while inpatient. Plan was to pursue outpatient work-up. She did receive Venofer while inpatient for iron deficiency anemia. Recommended continuing PPI 04/01/2021:EGDnotes are reviewed performed the history of heartburn, Mckeon's, follow-up of esophagitis which demonstrated esophageal mucosal changes consistent with short segment Mckeon's esophagus which was biopsied. A small hiatal hernia was noted. Normal stomach and normal examined duodenum. Pathology results demonstrated esophagus 37 cm biopsy with multiple fragments of benign mildly inflamed gastric mucosa with focal intestinal metaplasia seen.. Esophageal 35 cm biopsy demonstrated moderate diffuse chronic active esophagitis with abundant benign glandular epithelium seen. Negative for intestinal metaplasia, dysplasia, carcinoma. 03/04/2020:EGDnotes are reviewed performed due to history of dysphagia and Mckeon's esophagus demonstrated esophageal plaques found consistent with candidiasis with cells for cytology obtained. Normal stomach. Regular Z-line found 35 cm from the incisors. Normal examined duodenum. Microbiology results demonstrated Renea albicans/dubliniensis 03/04/2020:Colonoscopywas obtained due to history of rectal bleeding which demonstrated anal stricture found on digital rectal exam. Nonbleeding internal hemorrhoids which were mild were noted. There was no specimens collected. Recommendation for repeat colonoscopy in 10 years for screening purposes. 11/03/2019:EGDnotes are reviewed performed due to history of heartburn, GERD, Mckeon's which demonstrated variable Z-line 35 cm from the incisors. Small hiatal hernia. LA grade D reflux esophagitis. Esophageal mucosal changes suspicious for short segment Mckeon's esophagus with biopsies obtained. Normal stomach and normal examined duodenum. Esophagus biopsy demonstrated inflamed column nerve/cardia type mucosa. Negative for intestinal metaplasia and dysplasia. No squamous mucosa present within the specimen. 08/11/2019:EGDnotes reviewed performed due to history of dysphagia and chest pain demonstrated a small to medium size hiatal hernia. Esophogastric landmarks identified with Z-line at 34 cm from the incisors. Esophageal mucosal changes consistent with short segment Mckeon's esophagus present in the lower third of the esophagus. LA grade B esophagitis was found. Normal stomach, examined duodenum. No specimens were collected. On exam/interview today, the patient reports that she has continued to experience dysphagia with eating. She is currently tolerating liquid diet. She reports she gets a "twitch" in her upper chest. This sensation makes her feel nauseated. She describes the discomfort as a sharp jabbing sensation. Vomiting does relieve her symptoms. She has an outpatient EGD scheduled with colonoscopy in the next several weeks. This will likely have to be changed due to her recent CO. Denies any melena or hematochezia in her stool. Never has any hematemesis. She is a lifetime non-smoker. Denies any alcohol intake. Denies use of recreational drugs including marijuana. She is retired. She worked for [employer] for 28 years. She is a and lives alone. She has 3 living adult children and multiple grandchildren. Allergies Allergy/AdvReac Type Severity Reaction Status Date / Time cephalexin Allergy Intermediate Rash and Verified 11/27/21 23:31 itchiness Cephalosporins Allergy Intermediate Rash and Verified 11/27/21 23:31 itchiness Sulfa (Sulfonamide Allergy Intermediate Hives Verified 11/27/21 23:31 Antibiotics) Home Medications Medication Instructions Recorded Confirmed Type nitroglycerin 0.4 mg sublingual 0.4 mg SUBLINGUAL UD PRN #0 btl 07/27/17 11/27/21 History tablet (Nitrostat) omega 4-rpx-hqf-fish oil 1,000 mg 1,000 mg PO QAM #0 cap 07/27/17 11/27/21 History (120 mg-180 mg) capsule (Fish Oil) cholecalciferol (vitamin D3) 25 1,000 units PO QAM #0 tab 04/05/19 11/27/21 History mcg (1,000 unit) capsule (Vitamin D3) linaclotide 145 mcg capsule 145 mcg PO QAM PRN cap 04/05/19 11/27/21 History (Linzess) rosuvastatin 40 mg tablet 40 mg PO QAM #90 tab 07/18/20 11/27/21 Rx pen needle, diabetic 32 gauge x ea 11/18/20 11/18/21 History 5/32" (BD Ultra-Fine [place] Pen Needle) insulin aspart U-100 100 unit/mL 20 unit SUBCUT DAILY #2 box 01/21/21 11/27/21 Rx (3 mL) subcutaneous pen (Novolog Flexpen U-100 Insulin aspart) insulin degludec 100 unit/mL (3 33 unit SQ QPM 03/26/21 11/27/21 History mL) subcutaneous pen (Tresiba FlexTouch U-100 insulin) famotidine 20 mg tablet 20 mg PO BID #180 tab 05/07/21 11/27/21 Rx lisinopril 10 mg tablet 10 mg PO QAM #90 tab 05/07/21 11/27/21 Rx ondansetron HCl 4 mg tablet 4 mg PO Q8H PRN #30 tab 06/24/21 11/27/21 Rx flash glucose scanning reader 06/26/21 11/18/21 History (FreeStyle Renan 2 Clarkson) flash glucose sensor (FreeStyle 06/26/21 11/18/21 History Renan 2 Sensor) blood sugar diagnostic (OneTouch #200 ea 08/14/21 11/18/21 Rx Verio test strips) carvedilol 6.25 mg tablet 6.25 mg PO BID #180 tab 08/19/21 11/27/21 Rx duloxetine 30 mg capsule,delayed 30 mg PO QAM #90 cap 08/19/21 11/27/21 Rx release isosorbide mononitrate 30 mg 60 mg PO QAM #180 tab 08/19/21 11/27/21 Rx tablet,extended release 24 hr chlorthalidone 25 mg tablet 25 mg PO DAILY #30 tab 08/26/21 11/27/21 Rx aspirin 81 mg tablet,delayed 81 mg PO QAM 10/24/21 11/27/21 History release folic acid 1 mg tablet 1 mg PO QAM 30 Days #30 tab 10/30/21 11/27/21 Rx diclofenac sodium 1 % topical gel 2 g TOPICAL QID 10/31/21 11/27/21 History (Arthritis Pain (diclofenac)) Gvoke HypoPen 2-Pack 1 mg/0.2 mL 1 mg SUBCUT .COMPLEX #0.4 ml NS 11/03/21 11/27/21 Rx subcutaneous auto-injector (glucagon) ezetimibe 10 mg tablet (Zetia) 10 mg PO QAM #90 tab 11/03/21 11/27/21 Rx gabapentin 100 mg capsule 100 mg PO HS #30 cap 11/03/21 11/27/21 Rx pantoprazole 40 mg tablet,delayed 40 mg PO BID #60 tab 11/03/21 11/27/21 Rx release buspirone 10 mg tablet 10 mg PO TID #270 tab 11/06/21 11/27/21 Rx metformin 500 mg tablet 1,000 mg PO BID #120 tab 11/07/21 11/27/21 Rx albuterol sulfate 90 mcg/actuation 2 puff INHALATION QID PRN #8.5 g 11/20/21 11/27/21 Rx aerosol inhaler (Ventolin HFA) Patient History Medical History (Updated 12/01/21 @ 09:58 by LUIS FERNANDO Browning) Mckeon esophagus Cervical pain (neck) Chest pain Chronic pain syndrome Depression Diabetes mellitus, type 2 IDDM Diabetic gastroparesis Diabetic peripheral neuropathy Dyslipidemia Folic acid deficiency GERD without esophagitis HTN (hypertension) IBS (irritable bowel syndrome) Lumbar spondylosis Myocardial Infarction CO- November 2005, January 2006, Aug 2006 3 total within an 8 month span--[place] [facility] [place] DR. JULES Non-ST elevation (NSTEMI) myocardial infarction Obesity Pes anserine bursitis Vitamin B12 deficiency Surgical History (Updated 11/30/21 @ 07:33 by Margarita Lipscomb MD) [place] [facility] [place]--s/p stents to RCA November 2005; s/p stents to LAD, LCx in January 2006; s/p stents to RCA in 08/2006 History of cataract surgery BL History of cholecystectomy History of colonoscopy with polypectomy History of esophageal dilatation History of esophagogastroduodenoscopy (EGD) History of lumbar spinal fusion History of tooth extraction all teeth History of total hysterectomy with bilateral salpingo-oophorectomy (BSO) History of total right knee replacement (TKR) S/P coronary artery stent placement s/p stents to RCA November 2005; s/p stents to LAD, LCx in January 2006; s/p stents to RCA in 08/2006 Status post trigger finger release right thumb Family History Brother Myocardial infarction Anxiety Heart disease Hypertension Cancer Sister Family history of reaction to anesthesia difficulty waking Hypertension Heart disease Myocardial infarction Anxiety Cancer Diabetes Father Anxiety Heart disease Hypertension Mother Anxiety Hypertension Heart disease Unknown Cancer skin, GI Denies family history of Ovarian cancer Prostate cancer Breast cancer Colorectal cancer Stroke Social History Smoking Status: Former smoker Tobacco Type: Cigarettes Age Started Using Tobacco: 18; Age Quit Using Tobacco: 57; Cigarettes Per Day: 3 cigarettes a week; Second Hand Exposure: No; Hx Alcohol Use: No Hx Substance Use: Yes Preferred Language: Greek Communication Ability: Effective Visual Impairment: Limited Hearing Ability: Normal [place] Roofer Helper Required: No Beliefs That Will Affect Care: None marital status: / Current Living Situation: Spouse Current Living Situation Comment: apartment building current occupational status: retired and disabled How many Children do You have: 3 Feels Safe at Home: Yes Childhood Exposure to Second-Hand Smoke: No caffeine: Yes (drinks coffee, diet pepsi occasionally ) Dental Care, Regularly: No Physical Activity Frequency: Does not Exercise Seatbelt Use: always Sunscreen Use: No Assistive Devices: Walker Review of Systems Review of Systems: All systems reviewed & are unremarkable except as noted in Subjective Physical Exam Constitutional: WD/WN, vitals as above Respiratory: normal respiratory effort, lungs clear to auscultation Cardiovascular: RRR, no murmur, no edema Gastrointestinal (Abdomen): normal bowel sounds, soft, nontender, no hepatosplenomegaly Psychiatric: A+Ox3, euthymic affect Results & Data ([facility]) Vital Signs (Past 12 Hours) Vital Signs Temp Pulse Pulse Resp BP Pulse Ox 12/01/21 08:00 52 L 12/01/21 07:41 84 16 119/67 98 12/01/21 02:37 36.5 C 76 16 98/66 L 97 11/30/21 23:21 48 L 11/30/21 22:56 36.6 C 57 L 20 103/62 95 Laboratory Results Laboratory Results - last 24 hr 11/30/21 11/30/21 11/30/21 11:16 16:10 20:19 WBC RBC Hgb Hct MCV MCH MCHC RDW Std Deviation RDW Coeff of Tino Plt Count MPV Immature Gran % (Auto) Neut % (Auto) Lymph % (Auto) [place] % (Auto) Eos % (Auto) Baso % (Auto) Neut # (Auto) Lymph # (Auto) [place] # (Auto) Eos # (Auto) Baso # (Auto) Immature Gran # (Auto) Sodium Potassium Chloride Carbon Dioxide Anion Gap BUN Creatinine Est Cr Clr Drug Dosing Est GFR ( Amer) Est GFR (Non-Af Amer) BUN/Creatinine Ratio Glucose POC Glucose 144 H 141 H 130 H Calcium Total Bilirubin AST ALT Alkaline Phosphatase Total Protein Albumin Globulin Albumin/Globulin Ratio 12/01/21 12/01/21 12/01/21 07:05 08:03 08:03 WBC 4.74 L RBC 4.37 Hgb 12.3 Hct 37.3 MCV 85.4 MCH 28.1 MCHC 33.0 RDW Std Deviation 45.2 RDW Coeff of Tino 14.5 Plt Count 183 MPV 9.9 Immature Gran % (Auto) 0.4 Neut % (Auto) 38.1 Lymph % (Auto) 50.8 [place] % (Auto) 7.6 Eos % (Auto) 2.3 Baso % (Auto) 0.8 Neut # (Auto) 1.80 Lymph # (Auto) 2.41 [place] # (Auto) 0.36 Eos # (Auto) 0.11 Baso # (Auto) 0.04 Immature Gran # (Auto) 0.02 Sodium 141 Potassium 3.7 Chloride 108 H Carbon Dioxide 28 Anion Gap 5 BUN 10 Creatinine 0.93 Est Cr Clr Drug Dosing 54.0 Est GFR ( Amer) 70.2 Est GFR (Non-Af Amer) 60.5 BUN/Creatinine Ratio 10.8 Glucose 104 H POC Glucose 80 Calcium 8.7 Total Bilirubin 0.4 AST 16 ALT 16 Alkaline Phosphatase 58 Total Protein 5.4 L Albumin 3.1 L Globulin 2.3 L Albumin/Globulin Ratio 1.3
--- NOTE | 2021-12-01 12:48 | Cardiology Progress Note ---
Date of Service December 01, 2021 Assessment & Plan (1) Acute non-ST elevation myocardial infarction (NSTEMI): (2) CAD (coronary artery disease): (3) S/P coronary artery stent placement: (4) HTN (hypertension): (5) Dyslipidemia: Plan: ASSESSMENT/PLAN: 1. NSTEMI: This appears appears an acute coronary syndrome involving the circumflex distribution. Medical management based on her anatomy. Continue dual antiplatelet therapy, beta-blockade and high-dose rosuvastatin. 2. CAD s/p PCI (LAD, Cx OM, RCA): Continue aspirin, beta-stephani, ANNA- inhibitor, high-intensity statin therapy. Catheterization revealed poor anatomy for percutaneous or surgical intervention. 3. Hypertension: Good control currently. 4. Dyslipidemia: Continue high-intensity statin therapy. 5. Esophagitis: Symptoms of chest pain improved. Barium swallow scheduled for later today. 6. Diabetes: Severely elevated glucose on arrival. Improved 7. Chest pain: Improved with the liquid diet. This morning fewer symptoms. She has been quite stable from a cardiac standpoint. If she is ambulatory without symptoms of recurrent chest discomfort, I think she could be safely discharged home on her current medical regimen. I will place a consult for cardiac rehab. I can arrange for follow-up with her primary associate professor of biostatistics. Admission and Anticipated Discharge Date Admission Date: November 28, 2021 Subjective This afternoon the patient clinically feeling well. She was able to eat some clear liquid breakfast. She did not finish all of it. She felt full. Very minimal symptoms of discomfort this morning. Certainly improved from previous. She was ambulatory to the bathroom over the past several days without symptoms of chest pain or angina. No breathing difficulty currently. Very mild dizziness with ambulation. Review of Systems Review of Systems: Per HPI Physical Exam Physical Exam: She is alert and oriented x3. Mood affect appear normal. She answered all questions appropriately. HEENT: Sclerae are anicteric. Pupils are equal and reactive to light and accommodation. Extraocular movements were intact. Neuro: Cranial nerves intact Lungs: Lungs are clear to auscultation bilaterally. There are no rales wheezes or rhonchi. She has normal respiratory effort without use of accessory muscles. There is normal pulmonary excursion. Cardiac: The rhythm was regular. S1 and S2 were normal. There are no murmurs on examination. The PMI was not markedly displaced on palpation. Extremities: She appeared to have good perfusion of both hands. Skin: There are no rashes noted on examination today. Results & Data ([facility]) Vital Signs (Past 12 Hours) Vital Signs Temp Pulse Pulse Resp BP Pulse Ox 12/01/21 11:49 55 L 16 141/74 H 98 12/01/21 08:00 52 L 12/01/21 07:41 84 16 119/67 98 12/01/21 02:37 36.5 C 76 16 98/66 L 97 Laboratory Results Abnormal Lab Results 11/30/21 11/30/21 12/01/21 16:10 20:19 07:05 WBC RBC Hgb Hct MCV MCH MCHC RDW Std Deviation RDW Coeff of Tino Plt Count MPV Immature Gran % (Auto) Neut % (Auto) Lymph % (Auto) Cedar % (Auto) Eos % (Auto) Baso % (Auto) Neut # (Auto) Lymph # (Auto) Cedar # (Auto) Eos # (Auto) Baso # (Auto) Immature Gran # (Auto) Sodium Potassium Chloride Carbon Dioxide Anion Gap BUN Creatinine Est Cr Clr Drug Dosing Est GFR ( Amer) Est GFR (Non-Af Amer) BUN/Creatinine Ratio Glucose POC Glucose 141 H 130 H 80 Calcium Total Bilirubin AST ALT Alkaline Phosphatase Total Protein Albumin Globulin Albumin/Globulin Ratio 12/01/21 12/01/21 12/01/21 08:03 08:03 11:11 WBC 4.74 L RBC 4.37 Hgb 12.3 Hct 37.3 MCV 85.4 MCH 28.1 MCHC 33.0 RDW Std Deviation 45.2 RDW Coeff of Tino 14.5 Plt Count 183 MPV 9.9 Immature Gran % (Auto) 0.4 Neut % (Auto) 38.1 Lymph % (Auto) 50.8 Cedar % (Auto) 7.6 Eos % (Auto) 2.3 Baso % (Auto) 0.8 Neut # (Auto) 1.80 Lymph # (Auto) 2.41 Cedar # (Auto) 0.36 Eos # (Auto) 0.11 Baso # (Auto) 0.04 Immature Gran # (Auto) 0.02 Sodium 141 Potassium 3.7 Chloride 108 H Carbon Dioxide 28 Anion Gap 5 BUN 10 Creatinine 0.93 Est Cr Clr Drug Dosing 54.0 Est GFR ( Amer) 70.2 Est GFR (Non-Af Amer) 60.5 BUN/Creatinine Ratio 10.8 Glucose 104 H POC Glucose 153 H Calcium 8.7 Total Bilirubin 0.4 AST 16 ALT 16 Alkaline Phosphatase 58 Total Protein 5.4 L Albumin 3.1 L Globulin 2.3 L Albumin/Globulin Ratio 1.3 Diagnostic Findings Limited echocardiogram performed today revealed overall preserved LV systolic function with very mild wall motion abnormality involving the apical lateral portion of the left ventricle. Certainly improved from presentation. PG Care Time/CCT Total # of Minutes Spent Total Time Spent with Patient: Total time spent is greater than 50% in coordination of care (as documented) at patient's floor/unit and/or counseling patient: Coding Level of Care Code 05480 Subseq Hosp Care Lvl 2 Diagnoses Acute non-ST elevation myocardial infarction (NSTEMI) I21.4 CAD (coronary artery disease) I25.10 Coronary Disease-Associated Artery/Lesion type: cheesh-na artery [place] vs. transplanted heart: cheesh-na heart Associated angina: angina presence unspecified S/P coronary artery stent placement Z95.5 HTN (hypertension) I10 Dyslipidemia E78.5 (1) CAD (coronary artery disease) Coronary Disease-Associated Artery/Lesion type: cheesh-na artery [place] vs. transplanted heart: cheesh-na heart Associated angina: angina presence unspecified Qualified Code(s): I25.10 - Atherosclerotic heart disease of cheesh-na coronary artery without angina pectoris
--- NOTE | 2021-12-01 13:47 | Fluoroscopy Report ---
FL barium swallow CLINICAL HISTORY: dysphagia, odynophagia COMPARISON STUDY: Chest CTA 11/27/2021. FINDINGS: Total fluoroscopy time was 1.5 minutes. 17 fluoroscopic spot images and a cine loop were oseguera bmitted. The contours of the hypopharynx are within normal limits. The proximal to mid esophagus is n ormal in course and caliber. There is mild esophageal dysmotility. No gastroesophageal reflux demonst rated during the examination. There is a small hiatus hernia. Mild smooth narrowing at the distal eso phagus near the gastroesophageal junction. However, no mucosal abnormality identified. The barium tab let passed without difficulty. IMPRESSION: 1. Small hiatus hernia. 2. Mild smooth narrowing at the distal esophagus near the gastroesophageal junction. However, no muco maeve abnormality identified. This may correspond to the distal esophageal thickening seen on the prior CT examination. Nonemergent endoscopy can be used for further evaluation. 3. No gastroesophageal reflux demonstrated during examination. ACT 112: Negative or not required by law. Electronically signed by: Vijay Vega M.D. 12/01/2021 1:46 PM
[2021-12-02] MEDS: ACETAMINOPHEN 325 MG TAB PO SCH ×2 (05:53→13:13)
[2021-12-02 06:01] LABS: Basophils # (auto) 0.02 K/uL (0-0.2); Basophils % (auto) 0.2 %; Eosinophils # (auto) 0.13 K/uL (0-0.5); Eosinophils % (auto) 1.6 %; Hematocrit (blood only) 36.1 % (37-47); Immature Granulocytes # (auto) 0.03 K/uL (0.00-0.02); Immature Granulocytes % (auto) 0.4 %; Lymphocytes # (auto) 2.54 K/uL (1.2-3.4); Lymphocytes % (auto) 30.6 %; Mean Corpuscular Hemoglobin 28.4 pg (25-34); Mean Corpuscular Hgb Conc 33.2 g/dL (32-36); Mean Corpuscular Volume 85.5 fL (80-100); Mean Platelet Volume 10.1 fL (7.4-10.4); Monocytes # (auto) 0.59 K/uL (0.11-0.59); Monocytes % (auto) 7.1 %; Neutrophils # (auto) 4.98 K/uL (1.4-6.5); Neutrophils % (auto) 60.1 %; Platelet Count 208 K/uL (130-400); RDW Coefficient of Variation 14.5 % (11.5-14.5); RDW Standard Deviation 45.2 fL (36.4-46.3); Red Blood Count 4.22 M/uL (4.2-5.4); White Blood Count 8.29 K/uL (4.8-10.8)
[2021-12-02 06:21] LABS: Albumin Globulin Ratio 1.3 (0.9-2); BUN Creatinine Ratio 11.6 (10-20); Bilirubin,Total 0.4 mg/dl (0.2-1.0); Calcium 8.6 mg/dl (8.5-10.1); Creatinine Clr Calc Pharmacy 58.9 ml/min; Est GFR (African American) 77.1 ml/min; Est GFR (Non-African American) 66.6 ml/min; Globulin 2.3 gm/dl (2.5-4.0); Potassium 3.4 mmol/L (3.5-5.1); Total Protein 5.3 gm/dl (6.0-8.3)
[2021-12-02] MEDS: INSULIN ASPART PER UNIT SC SCH ×2 (07:40→12:23)
--- NOTE | 2021-12-02 08:06 | Hospitalist Progress Note ---
Date of Service December 02, 2021 Assessment & Plan (1) Acute non-ST elevation myocardial infarction (NSTEMI): Plan: 76yo female with a history of CAD s/p stents, HTN, HLD, DM2, and GERD admitted for NSTEMI and suspected HHS. Underwent cateterization (11/28) and is not a candidate for CABG vs stent. Currently being worked up for esophagitis. NSTEMI Cardiac catheterization (11/28) showing evidence of severe multivessel disease WITHOUT target areas for CABG consideration Unlikely to be able to place stent given disease, however can be considered with Cardiology should patient's symptoms not improve with medical management Heparin drip discontinued; continue heparin sq 5000u bid Cardiology recommends medical management given patient is poor CABG/stent candidate: Metoprolol 25mg BID Amlodipine 5mg qd Rosuvastatin 40mg qd Ezetimibe qd Lisinopril 10mg qd Aspirin 81mg qd Plavix 75mg qd Patient will need aggressive BSG control both now inpatient and on discharge to maintain her current level of cardiac disease; see below. Esophagitis Immediate pain following consumption of any solid or semisolid food, able to tolerate liquids; has been ongoing for six months to a year CT chest imaging showing inflammation surrounding base of esophagus likely indicative of esophagitis Esophageal pain less likely to be steal syndrome-like cardiac origin given that the pain is immediately after eating rather than half an hour later while digesting Diet switched from diabetic regular to diabetic clear liquid to promote intake of nutrition without emesis Gastroenterology consulted, barium swallow (12/01): 1. Small hiatal hernia. 2. Mild smooth narrowing at the distal esophagus near the gastroesophageal junction. However, no mucosal abnormality identified. This may correspond to the distal esophageal thickening seen on the prior CT examination. Nonemergent endoscopy can be used for further evaluation. 3. No gastroesophageal reflux demonstrated during examination. Continue pantoprazole IV and famotidine IV Dehydration, hyperglycemia, DM2 History of uncontrolled DM2 with most recent A1c ~12; this is actually decreased from previous readings in the last several years BSG 928 on admission, suspected secondary to poor medication adherence Glargine 20u in AM, 10u qhs; continue ISS DM2 diet Aggressive diabetic education while admitted; patient is contemplative and ready to initiate action about her role in dietary modification to aid in her BSG control Would benefit from CGM at home for BSG monitoring Chronic conditions HLD: continue home statin and ezetimibe HTN: continue home amlodipine, metoprolol, lisinopril GERD: PPI and H2 stephani as above FEN: clear liquid, DM2 diet Code status: DNR/DNI DVT ppx: heparin sq Consults: cardiology, gastroenterology PT/OT: ordered Case management: following Dispo: med/surg telemetry (2) Hyperglycemia due to type 2 diabetes mellitus: (3) Anxiety: (4) GERD (gastroesophageal reflux disease): (5) HTN (hypertension): (6) Dyslipidemia: (7) Mckeon esophagus: (8) Diabetic gastroparesis: (9) Esophagitis: Admission and Anticipated Discharge Date Admission Date: November 28, 2021 Results & Data Results & Data ([facility]) Vital Signs (Past 12 Hours) Vital Signs Temp Pulse Pulse Resp BP Pulse Ox 12/02/21 07:16 55 L 12/02/21 03:02 36.8 C 64 16 104/56 L 97 12/02/21 00:35 55 L 12/01/21 23:27 36.7 C 61 18 107/64 99 (1) GERD (gastroesophageal reflux disease) Esophagitis presence: without esophagitis Qualified Code(s): K21.9 - Gastro- esophageal reflux disease without esophagitis (2) Mckeon esophagus Mckeon's esophagus type: without dysplasia Qualified Code(s): K22.70 - Mckeon's esophagus without dysplasia (3) HTN (hypertension) Hypertension type: essential hypertension Qualified Code(s): I10 - Essential (primary) hypertension
[2021-12-02] MEDS: PANTOprazole 40 MG in SYRINGE 0 ML IV SCH (08:08)
[2021-12-02] MEDS: FAMOTIDINE 20 MG in SYRINGE 3 ML IV SCH (08:09)
[2021-12-02] MEDS: METOPROLOL TARTRATE 25 MG TAB PO SCH (08:59)
[2021-12-02] MEDS ORDERED: POLYETHYLENE (MIRALAX) 17 GM PACK PO SCH (09:00)
[2021-12-02] MEDS: lisinopril 10 MG TAB PO SCH (09:00)
[2021-12-02] MEDS: ROSUVASTATIN CALCIUM 20 MG TAB PO SCH (09:00)
[2021-12-02] MEDS: amLODIPine BESYLATE 5 MG TAB PO SCH (09:01)
[2021-12-02] MEDS: CLOPIDOGREL BISULFATE 75 MG TAB PO SCH (09:01)
[2021-12-02] MEDS: ASPIRIN 81 MG ECTAB PO SCH (09:01)
[2021-12-02] MEDS: INSULIN GLARGINE SOLOSTAR 100 UNITS/ML 3 ML PEN SC SCH (09:02)
[2021-12-02] MEDS: HEPARIN SOD 5,000 UNIT/0.5 ML VIAL SQ SCH (10:15)
--- NOTE | 2021-12-02 12:54 | Gastroenterology Progress Note ---
Date of Service December 02, 2021 Assessment & Plan (1) Dysphagia: Plan: Recommend outpt EGD waiting 6 weeks after [place]. Please send for GI OV as outpt. Will sign off. Please call for further questions. ILio MD have spent 10 minutes of discrete time performing the activities of this visit which include but are not limited to review of the medical record, obtaining a history, physical exam, and entering information in the electronic record. . Admission and Anticipated Discharge Date Admission Date: November 28, 2021 Subjective cc dysphagia HPI Pt states he swallowing is good. Tolerating diet. Physical Exam Gastrointestinal (Abdomen): normal bowel sounds, soft, nontender, no hepatosplenomegaly Results & Data ([facility]) Vital Signs (Past 12 Hours) Vital Signs Temp Pulse Pulse Resp BP Pulse Ox 12/02/21 11:48 36.7 C 83 18 132/71 98 12/02/21 08:00 36.5 C 65 18 122/69 98 12/02/21 07:16 55 L 12/02/21 03:02 36.8 C 64 16 104/56 L 97
--- NOTE | 2021-12-02 17:50 | Discharge Summary ---
Date of Service December 02, 2021 Admission HPI Per Admitting Provider 76 year old female w/ CAD s/p 3 stents and poorly controlled IDDM, gastroparesis, HTN, GERD, and Mckeon's esophagus who presents for sharp midsternal chest pain. She has had recurrent episodes since 11/26/21, 8 to 10/10 intensity. There is some L shoulder soreness. No associated jaw numbness, diaphoresis, palpitations. There is some dyspnea on exertion. She has increased burping and belching. Current chest pain level 6/10 severity, improving. pleuritic. exertional. not affected by eating or position. Patient has had intermittent chest pains for years, but milder and less frequent than the recent episodes. Unsure if feels similar when she had IL in the past. No recent illness. + mild n/v. She states she quit tobacco use in her late 50s after she had the stents. Her current chest pain level is 6/10, milder than earlier, but still present. She current has nitro paste applied. She was admitted to [facility] last month for fall and L ankle sprain. Her DM was found to be uncontrolled w/ A1c of 12.4. Since that visit, she states she had been at her baseline health and levels of activity. She walks with walker. She then saw her call center rn 2 weeks ago who increased her regimen. She did not take her home insulin today as she had a f/u appointment w/ ortho. ED course: Patient presented w/ BSG of 928, pseudohyponatremia 125, poc abg 7.37, and anion gap of 14. She was given 10 units of IV insulin and started on Insulin drip in the ED, since discontinued. Admission Exam Per Admitting Provider General: Grossly A&O. NAD. Cooperative. HEENT: Atraumatic, normocephalic. EOMI Pulm: CTAB. -wheezes, -rales, -rhonchi. No respiratory distress. Cardiac: RRR, -mrg. Radial pulses intact and symmetrical. puffy ankles, no pitting edema Abdominal: Nontender, nondistended, soft. Msk: Reproducible chest pain at sternum Integ: Warm, dry, intact Principal Diagnosis NSTEMI, esophagitis Discharge Exam Constitutional: well-appearing, no acute distress, sitting up in bed CV: regular rhythm, no murmur appreciated, extremities well-perfused, no LE edema Resp: mild end-expiratory wheezes in lower right and left lobes, breathing non- labored GI: soft, nondistended, nontender, BS normoactive Neuro: alert, oriented, no focal neurologic deficit appreciated Discharge Data Allergies Allergy/AdvReac Type Severity Reaction Status Date / Time cephalexin Allergy Intermediate Rash and Verified 11/27/21 23:31 itchiness Cephalosporins Allergy Intermediate Rash and Verified 11/27/21 23:31 itchiness Sulfa (Sulfonamide Allergy Intermediate Hives Verified 11/27/21 23:31 Antibiotics) Consultations 11/28/21 00:26 ED Decision to Admit Stat 11/28/21 02:36 Consult Cardiology Routine 11/30/21 16:54 Consult Gastroenterology Routine Procedures Performed Operation Date: 11/28/21 10:00 Actual Procedures s Cineradiography w/Routine Exam - Deon Gonzalez MD p Cath, Left with Cors and Vent - Deon Gonzalez MD Ordered Studies 11/27/21 22:39 CT angio chest dissec wo/w con Urgent 11/28/21 09:02 CL Cath Imgs for PACS use only Routine 12/01/21 09:57 FL barium swallow Routine Hospital Course (1) Acute non-ST elevation myocardial infarction (NSTEMI): NSTEMI Patient was noted on admission with an elevated troponin Cardiac catheterization (11/28) showing evidence of severe multivessel disease WITHOUT target areas for CABG consideration Unlikely to be able to place stent given disease, however can be considered with cardiology should patient's symptoms not improve with medical management Heparin drip discontinued; heparin sq 5000u bid Cardiology recommends medical management given patient is poor CABG/stent candidate: Metoprolol 25mg BID Amlodipine 5mg qd Rosuvastatin 40mg qd Ezetimibe qd Lisinopril 10mg qd Aspirin 81mg qd Plavix 75mg qd Patient will need aggressive BSG control both now inpatient and on discharge to maintain her current level of cardiac disease; see below Outpatient cardiology follow-up arranged prior to discharge Esophagitis Immediate pain following consumption of any solid or semisolid food, able to tolerate liquids; has been ongoing for six months to a year CT chest imaging showing inflammation surrounding base of esophagus likely indicative of esophagitis Esophageal pain less likely to be steal syndrome-like cardiac origin given that the pain is immediately after eating rather than half an hour later while digesting Gastroenterology consulted, barium swallow (12/01): 1. Small hiatal hernia. 2. Mild smooth narrowing at the distal esophagus near the gastroesophageal junction. However, no mucosal abnormality identified. This may correspond to the distal esophageal thickening seen on the prior CT examination. Nonemergent endoscopy can be used for further evaluation. 3. No gastroesophageal reflux demonstrated during examination. Continue pantoprazole Dehydration, hyperglycemia, DM2 History of uncontrolled DM2 with most recent A1c ~12; this is actually decreased from previous readings in the last several years BSG 928 on admission, suspected secondary to poor medication adherence Nuzhat's home regimen held on admission; while in-hospital, patient was given glargine 20u in AM and glargine 10u qhs; patient was on ISS but received 10u or fewer of bolus each day Aggressive diabetic education while admitted; patient is contemplative and ready to initiate action about her role in dietary modification to aid in her BSG control Would benefit from CGM at home for BSG monitoring Chronic conditions HLD: continue home statin and ezetimibe HTN: continue home amlodipine, metoprolol, lisinopril GERD: PPI as above (2) Hyperglycemia due to type 2 diabetes mellitus: (3) Anxiety: (4) GERD (gastroesophageal reflux disease): (5) HTN (hypertension): (6) Dyslipidemia: (7) Mckeon esophagus: (8) Diabetic gastroparesis: (9) Esophagitis: Total Time Total Time Spent Total Time Spent (In Minutes): see attending documentation Discharge Plan Discharge Items Patient Disposition: Home - Home Health Services Reason For Visit: CHEST PAIN, HYPERGLYCEMIA Discharge Diagnosis: NSTEMI, hyperglycemia Condition on Discharge: Fair Activity: Per Instructions section Non-emergency contact: Primary Care Provider Call non-emergency contact if: you have any medication questions and your symptoms worsen Follow-up/Referrals: Lalito Pimentel MD [Primary Care Provider] - 12/08/21 2:00 pm Conner Nelson MD [Physician] - (within 2 weeks of d/c) Joaquin Lau Jr, MD, [facility] [Physician] - 12/04/21 2:30 pm (Post-hospital discharge follow-up) Svetlana Worthy, DESIREE, LDN, CDE [Registered Dietitian] - Lio To [Physician] - (4 weeks) Diet: Carb Consistent or DM2 Addtl Attending Provider Instructions: You were admitted to the hospital for NSTEMI (a type of heart attack). You had a heart catheterization but a stent was not able to be placed. Several of your medications were changed in order to improve the function of your heart which are described below. You also had a procedure called a barium swallow which showed some mild tightening of the esophagus. The GI doctors recommend you follow up with them in the office to talk about this and consider an upper scope called an EGD. While you were admitted you had a VERY HIGH sugar. This tells us that the amount of medication you were taking was not enough for the foods you were eating. Please see below for changes to your insulin regimen. It is EXTREMELY important that you decrease the amount of carbohydrates in your diet. This means decreasing potatoes, rice, pasta, bread, full sugar soda, candy, and baked goods. Your heart disease is in large part due to uncontrolled sugars, so it is important to have follow up with Dr. Nelson's office and the coding educator. A discharge summary will be sent to your primary care physician to ensure continuity of care. Please bring this discharge summary with you to your next office appointment so that your provider can review it at that time. Follow-up appointments: Make a follow-up appointment with your PCP within the next week. It is very important that you follow up with them shortly after discharge from the hospital. You will need to call Dr. Lau's office (Cardiology) to get a follow up appointment. His phone number is [phone]. We have requested a follow-up appointment with Dr. Nelson (Endocrinology). Their schedulers will reach out to you over the next few days to schedule this appointment. If you do not hear from them by , please call [phone]. We have requested a follow-up appointment with Dr. To (Gastroenterology). Their schedulers will reach out to you over the next few days to schedule this appointment. If you do not hear from them by , please call [phone]. We have requested a follow-up appointment with Svetlana Worthy (coding educator). Their schedulers will reach out to you over the next few days to schedule this appointment. If you do not hear from them by , please call [phone]. Keep all your follow-up appointments as already scheduled. If you cannot make an appointment, notify your provider. Medications: Your medication list has been reviewed and reconciled upon discharge to ensure accuracy and continuity of care. An updated list of all your medications is included with your hospital discharge paperwork. Please review this list jose sely, and make note of any changes. * We sent a new medication called amlodipine (Norvasc) to your pharmacy. Take amlodipine (5mg) one tablet daily. Amlodipine helps with chest pain and helps your heart pump better. * We sent a new medication called clopidogrel (Plavix) to your pharmacy. Take clopidogrel (75mg) one tablet daily. This medication works with aspirin to thin the blood to keep blood from sticking to your stents. * We sent a new medication called metoprolol tartrate to your pharmacy. Take metoprolol tartrate (25mg) one tablet twice daily. This medication helps the heart pump better. We discontinued your fish oil tablets, carvedilol and chlorthalidone. You no longer need to take these medicines. We also made some changes to your insulin regimen. Please make note of the changes below. It is very important that you discuss your insulin regimen with your primary care physician when you follow up with them within the next week. * We adjusted your dose of Tresiba (long-acting insulin). Take Tresiba 48 units once daily. * We have also adjusted your Novolog (short-acting insulin). Take Novolog 6 units with breakfast, Novolog 8 units with lunch, and Novolog 10 units with dinner. If you have any issues filling these prescriptions, please call [phone] and ask to leave a message for Dr. Bhupinder Fuentes. Take your medications as instructed; do not skip a dose of your medicines. Make sure all of your doctors know every medicine you are taking (including osti-itn-jvqnqxf medicines, vitamins, and supplements). Call your primary care provider before taking any new medicines (including wkqi-naa-xvvvgsh medicines, vitamins, and supplements), because some of these may interact with your current medications, or may make your symptoms worse. Tell your primary care provider if you cannot afford your medications. CONTACT YOUR PRIMARY CARE PROVIDER if you experience any of the following: Chest discomfort Worsening pain with swallowing Difficulty following your treatment plan, or difficulty taking medications CALL [phone] OR GO TO THE EMERGENCY DEPARTMENT if you experience any of the following: Sudden, severe abdominal pain or nausea/vomiting Severe chest pain, or chest pain that radiates (moves) to your jaw or arm Sudden, severe shortness of breath or difficulty breathing Thank you for allowing us to participate in your care. Pending Studies at Discharge: No Stand-Alone Forms: My [facility] [employer], Smoking Cessation Medications and DC Order Prescriptions: New clopidogrel 75 mg Tablet 75 mg PO QAM 30 Days Qty: 30 RF: 0 amlodipine [Norvasc] 5 mg Tablet 5 mg PO QAM 30 Days Qty: 30 RF: 0 metoprolol tartrate 25 mg Tablet 25 mg PO BID 30 Days Qty: 60 RF: 0 Continued nitroglycerin [Nitrostat] 0.4 mg Tablet, Sublingual 0.4 mg Sublingual UD PRN (Reason: Chest Pain) Qty: 0 RF: 0 cholecalciferol (vitamin D3) [Vitamin D3] 1,000 unit capsule 1,000 units PO QAM Qty: 0 RF: 0 rosuvastatin 40 mg tablet 40 mg PO QAM Qty: 90 RF: 3 (DME) OneTouch Verio test strips Strip See Dose Instructions .ROUTE .MEDSUPPLY Qty: 200 RF: 3 duloxetine 30 mg capsule,delayed release(DR/EC) 30 mg PO QAM Qty: 90 RF: 3 isosorbide mononitrate 30 mg tablet extended release 24 hr 60 mg PO QAM Qty: 180 RF: 3 pantoprazole 40 mg tablet,delayed release (DR/EC) 40 mg PO BID Qty: 60 RF: 2 buspirone 10 mg tablet 10 mg PO TID Qty: 270 RF: 1 metformin 500 mg tablet 1,000 mg PO BID Qty: 120 RF: 6 albuterol sulfate [Ventolin HFA] 90 mcg/actuation HFA aerosol inhaler 2 puff inhalation QID PRN (Reason: shortness of breath or wheezing) Qty: 8.5 RF: 1 (DME) pen needle, diabetic [BD Ultra-Fine [place] Pen Needle] 32 gauge x 5/32" needle See Rx Instructions .ROUTE .MEDSUPPLY RF: 0 ondansetron HCl 4 mg tablet 4 mg PO Q8H PRN (Reason: nausea and vomiting) Qty: 30 RF: 0 diclofenac sodium [Arthritis Pain (diclofenac)] 1 % gel 2 g topical QID RF: 0 Linzess 145 mcg capsule 145 mcg PO QAM PRN (Reason: Constipation) RF: 0 lisinopril 10 mg tablet 10 mg PO QAM Qty: 90 RF: 3 famotidine 20 mg tablet 20 mg PO BID Qty: 180 RF: 2 (DME) FreeStyle Renan 2 Sensor Kit See Rx Instructions .Route RF: 0 (DME) FreeStyle Renan 2 [place] Misc See Rx Instructions .Route RF: 0 gabapentin 100 mg capsule 100 mg PO HS Qty: 30 RF: 0 ezetimibe [Zetia] 10 mg tablet 10 mg PO QAM Qty: 90 RF: 3 Gvoke HypoPen 2-Pack 1 mg/0.2 mL auto-injector 1 mg subcut .COMPLEX Qty: 0.4 RF: 0 aspirin 81 mg Tablet,Delayed Release (Dr/Ec) 81 mg PO QAM RF: 0 folic acid 1 mg Tablet 1 mg PO QAM 30 Days Qty: 30 RF: 0 Changed insulin aspart U-100 [Novolog Flexpen U-100 Insulin] 100 unit/mL (3 mL) insulin pen 24 unit subcut DAILY Qty: 2 RF: 0 Tresiba FlexTouch U-100 100 unit/mL (3 mL) insulin pen 48 unit SQ QPM Qty: 0 RF: 0 Discontinued omega 6-chm-pvi-fish oil [Fish Oil] 1,000 mg (120 mg-180 mg) Capsule 1,000 mg PO QAM Qty: 0 RF: 0 carvedilol 6.25 mg tablet 6.25 mg PO BID Qty: 180 RF: 3 chlorthalidone 25 mg tablet 25 mg PO DAILY Qty: 30 RF: 2 Discharge Orders: Discharge Order (Routine); Ordered 12/02/21 Ordered By: Vera Stinson/Other Patient Handouts: Esophagitis, Diabetes Serving Portion Sizes Admission Data Admit Date/Time: 11/28/21 02:36 Attending Provider: Shaggy Rodríguez Admit Provider: Alexis Epstein Primary Care Provider: Lalito Pimentel Other Providers: Alex Mulligan ; Lio To ; Deon Gonzalez ; [place] Other Interventions: Discharge Summary Assessment (RN) Last Done: 12/02/21 16:36 Supervising Physician Co-Signing Physician Notes Patient seen and examined independently of PGY-2 Dr. Fuentes. Agree with history, exam findings, assessment and plan of care as outlined. In brief, Ms Rosas is a 76 year old female with hx of CAD s/p stentx3, DM admitted with NSTEMI. Continues to have dysphagia with foods. Tolerated soft diet this afternoon. No chest pain with exertion. Vital signs and nursing notes reviewed. Well appearing. Heart with regular rate and rhythm. No murmur. No edema. Lungs are clear to auscultation throughout. Abdomen is soft, minimally tender in the epigastric region. 1. NSTEMI. + troponin, EKG without ischemic changes. Cardiac cath with multi-vessel disease without target areas for possible CABG. Continue metoprolol, amlodipine, crestor, ezetimibe, lisinopril, aspirin, Plavix. Follow up with cardiology in 1-2 weeks. 2. Esophagitis in the setting of known history of Barretts esophagus. Continue with famotidine and pantoprazole. Barium swallow with mild narrowing at the distal esophagus. Can have EGD as an outpatient. 3. DM2. Uncontrolled. Admitted with [facility]HS that is now resolved. A1C 12%. Continue lantus 20u BID + ssi. Will discharge home back on home medication regimen, has connected with DM educator while in the hospital and is followed by Endocrine and the endocrine office coding educator. Discussed appropriate diet/carb counting. She will need close follow up with endocrinology provider/educator. Dispo: Discharge home today. I personally spent 35 minutes discharge planning for this patient. Resident Activity Tracking Resident Involvement: Resident Care Provided Care Provided: Adult Hospital Medicine
== END 2021-12-02 17:11 | disposition home health service (06) | DRG 280 ==
LOC: ED 22:19 → EDINP 11-28 02:36 → SUATTDRO 11-28 02:36 → EDINP 11-28 05:56 → 2S 11-28 07:07

== ENCOUNTER 2022-08-21 14:09 | Observation (INO) ==
[2022-08-21] MEDS ORDERED: SODIUM CHLORIDE 0.9% 1000ML 1,000 ML IV STA (14:14)
--- NOTE | 2022-08-21 14:24 | Emergency Department Note ---
Impression & Plan Chest pain, Vomiting, Abnormal LFTs, Acute hyperglycemia ED Provider Note NAME: SHIRA CUNNINGHAM AGE: 77 SEX: F : 1945 ARRIVES VIA: Ambulance INFORMANT: Patient, ED PROVIDER(S): Eliud Guadalupe DO CHIEF COMPLAINT: Chest pain HPI: The patient is a 77-year-old female who presented to the emergency department for an evaluation of left-sided chest pain. The patient states that she called her family doctor and was advised to go to the emergency department for left-sided chest pain. The patient states that she started having chest pain yesterday. She states has been compliant with her outpatient medications. She states the pain is somewhat improved compared to yesterday. She denies having any nausea or vomiting. She was seen here recently for diarrhea. She states she was treated in our emergency department and then sent home. She states that the diarrhea has since improved. She denies having any abdominal pain. She denies have any lower extremity swelling. She denies having any difficulty breathing. She did receive aspirin prior to arrival. She states that she has had cardiac issues in the past with similar pain. ROS: See above HPI for pertinent positives & negatives. A total of 10 systems reviewed and were otherwise negative. PAST MEDICAL HISTORY: See Below PAST SURGICAL HISTORY: See Below FAMILY HISTORY: See Below SOCIAL HISTORY: See Below HOME MEDICATIONS: See Below ALLERGIES: See Below VITALS: See Below PHYSICAL EXAMINATION: GENERAL: Patient is awake alert in no acute distress patient is resting comfortably and showing no signs of anxiety EYES: The conjunctivae are clear. The pupils are round and reactive. EARS, NOSE, MOUTH AND THROAT: The nose is without any evidence of any deformity. NECK: The neck is nontender and supple. RESPIRATORY: Normal respiratory effort is noted there is no evidence of wheezing rhonchi or rales CARDIOVASCULAR: Regular rate and rhythm noted there no murmurs rubs or gallops normal S1 normal S2. GASTROINTESTINAL: The abdomen is soft. Abdomen is nontender. MUSCULOSKELETAL/EXTREMITIES: There is no evidence of gross deformity full range of motion is noted in the hips and shoulders. SKIN: There is no obvious evidence of any rash. There are no petechiae, pallor or cyanosis noted. NEUROLOGIC: Patient is awake alert and oriented x3 MEDICAL DECISION MAKING: The patient is a 77-year-old female who presented to the emergency department by ambulance for evaluation of chest pain. The patient described left-sided chest pain. She states she has had similar episodes in the past that have been related to acute coronary syndrome. The patient was treated with aspirin prior to arrival. I discussed the patient's laboratory and radiographic studies with her. She was found have a slight elevation in her LFTs compared to her most recent visit a few weeks ago. She was treated with IV pain medication IV antiemetics and IV insulin for hyperglycemia. The patient states that she was not feeling much better. The patient does appear to have ongoing symptoms that may need further inpatient management. For this reason I will discuss her case with the on-call hospitalist. Triage Nursing notes reviewed. Prior medical records reviewed Vital Signs: reviewed and remarkable for elevated blood pressure. Differential diagnosis: Cardiac ischemia, aortic dissection, pulmonary embolism, pneumothorax, pneumonia, pericarditis, myocarditis, esophageal rupture, GERD, cholecystitis, pancreatitis, musculoskeletal, as well as other pathologies. ER treatment provided: See below Diagnostics interpreted by me: ECG: EKG was obtained in the emergency department. My interpretation is normal sinus rhythm at 85 bpm. There is no ectopy. Nonspecific lateral ST depressions were noted. This was compared to a tracing from August 11, 2022. No changes were noted. Cardiac Monitoring: An order was placed for continuous cardiac monitoring. The monitor shows a rate of 81 bpm with sinus rhythm. Laboratory studies: As stated above and show below. Imaging studies: See below. Radiographic imaging was reviewed by myself Consultation(s): I did discuss the patient's presentation with Berkley who is covering in the office for her primary care physician today. I discussed this case with Dr. Jay who is on-call for the [facility] hospitalist. Past Med/Surg History Medical History Acute non-ST elevation myocardial infarction (NSTEMI) 11/28/2021 had [place] medical management and follow with dr kaylen jteer 02/09/2022 [place] esophagus CAD (coronary artery disease) s/p stents to RCA November 2005; s/p stents to LAD, LCx in January 2006; s/p stents to RCA in 08/2006 Cervical pain (neck) Chest pain chronic chest pain and cardiac is negative Chronic pain syndrome Depression Diabetes mellitus, type 2 IDDM Diabetic gastroparesis Diabetic peripheral neuropathy Dyslipidemia Folic acid deficiency GERD without esophagitis History of COVID-19 2020 - resolved IBS (irritable bowel syndrome) Lumbar spondylosis Myocardial Infarction [place]- November 2005, January 2006, Aug 2006 3 total within an 8 month span--HX OF CATH 2012 [facility] [place], FOLLOWS WITH DR. JULES Vitamin B12 deficiency Surgical History History of cardiac cath last 2012 @ [facility] [place], no stents--s/p stents to RCA November 2005; s/p stents to LAD, LCx in January 2006; s/p stents to RCA in 08/2006 History of cataract surgery BL History of cholecystectomy History of colonoscopy with polypectomy History of esophageal dilatation History of esophagogastroduodenoscopy (EGD) History of lumbar spinal fusion History of tooth extraction all teeth History of total hysterectomy with bilateral salpingo-oophorectomy (BSO) History of total right knee replacement (TKR) S/P coronary artery stent placement s/p stents to RCA November 2005; s/p stents to LAD, LCx in January 2006; s/p stents to RCA in 08/2006 Status post trigger finger release right thumb Family History Brother Myocardial infarction Anxiety Heart disease Hypertension Cancer Sister Family history of reaction to anesthesia difficulty waking Hypertension Heart disease Myocardial infarction Anxiety Cancer Diabetes Father Anxiety Heart disease Hypertension Mother Anxiety Hypertension Heart disease Unknown Cancer skin, GI Denies family history of Ovarian cancer Prostate cancer Breast cancer Colorectal cancer Stroke Social History Smoking Status: Never smoker Tobacco Type: Cigarettes Age Started Using Tobacco: 18; Age Quit Using Tobacco: 57; Cigarettes Per Day: 3 cigarettes a week; Second Hand Exposure: No; Hx Alcohol Use: No Hx Substance Use: No Preferred Language: Sinhala Communication Ability: Effective Visual Impairment: Limited Hearing Ability: Normal Health Record Technician Required: No Beliefs That Will Affect Care: None marital status: / Current Living Situation: Alone Current Living Situation Comment: apartment building current occupational status: retired and disabled How many Children do You have: 3 Feels Safe at Home: Yes Childhood Exposure to Second-Hand Smoke: No caffeine: Yes (drinks coffee, diet pepsi occasionally ) Dental Care, Regularly: No Physical Activity Frequency: Does not Exercise Seatbelt Use: always Sunscreen Use: No Assistive Devices: Cane and Walker Allergies Allergies Allergy/AdvReac Type Severity Reaction Status Date / Time cephalexin Allergy Intermediate Rash and Verified 08/11/22 17:33 itchiness Cephalosporins Allergy Intermediate Rash and Verified 08/11/22 17:33 itchiness Sulfa (Sulfonamide Allergy Intermediate Hives Verified 08/11/22 17:33 Antibiotics) Home Meds Home Medications Medication Instructions Recorded Confirmed cholecalciferol (vitamin D3) 25 1,000 units PO QAM #0 tabs 04/05/19 08/11/22 mcg (1,000 unit) capsule (Vitamin D3) linaclotide 145 mcg capsule 145 mcg PO QAM PRN Constipation 04/05/19 08/11/22 (Linzess) pen needle, diabetic 32 gauge x 11/18/20 05/22/22 5/32" (BD Ultra-Fine [place] Pen Needle) flash glucose scanning reader 06/26/21 05/22/22 (FreeStyle Renan 2 Gilson) flash glucose sensor (Surflyyle 06/26/21 05/22/22 Renan 2 Sensor kit) aspirin 81 mg tablet,delayed 81 mg PO QAM 10/24/21 08/11/22 release diclofenac sodium 1 % topical gel 2 g topical QID 10/31/21 08/11/22 (Arthritis Pain (diclofenac)) Previous Rx's Medication Instructions Recorded famotidine 20 mg tablet 20 mg PO BID #180 tabs 05/07/21 ondansetron HCl 4 mg tablet 4 mg PO Q8H PRN nausea and 06/24/21 vomiting #30 tabs blood sugar diagnostic (OneTouch #200 ea 08/14/21 Verio test strips) duloxetine 30 mg capsule,delayed 30 mg PO QAM #90 caps 08/19/21 release isosorbide mononitrate 30 mg 60 mg PO QAM #180 tabs 08/19/21 tablet,extended release 24 hr Gvoke HypoPen 2-Pack 1 mg/0.2 mL 1 mg (0.2 mL) subcut .COMPLEX #0.4 11/03/21 subcutaneous auto-injector mL (glucagon) ezetimibe 10 mg tablet (Zetia) 10 mg PO QAM #90 tabs 11/03/21 buspirone 10 mg tablet 10 mg PO TID #270 tabs 11/06/21 metformin 500 mg tablet 1,000 mg PO BID #120 tabs 11/07/21 nitroglycerin 0.4 mg sublingual 0.4 mg sublingual UD PRN Chest 12/08/21 tablet (Nitrostat) Pain #1 btl albuterol sulfate 90 mcg/actuation 2 inha inhalation QID PRN 01/10/22 aerosol inhaler shortness of breath or wheezing #1 g benzonatate 200 mg capsule 200 mg PO TID PRN cough #30 caps 01/15/22 fluticasone fur. 100 mcg-umeclid 1 inh inhalation DAILY #28 ea 02/11/22 62.5 mcg-vilant 25 mcg inhalat.powder (Trelegy Ellipta) metoprolol succinate 100 mg 100 mg PO QAM #90 tabs 02/11/22 tablet,extended release 24 hr insulin aspart U-100 100 unit/mL 24 unit (0.24 mL) subcut DAILY #15 02/18/22 (3 mL) subcutaneous pen (Novolog mL Flexpen U-100 Insulin aspart) rosuvastatin 40 mg tablet 40 mg PO QAM #90 tabs 04/01/22 fluconazole 150 mg tablet 150 mg PO Q3D 2 doses #2 tabs 04/22/22 (Diflucan) insulin degludec 100 unit/mL (3 48 unit (0.48 mL) subcut QPM #15 mL 05/14/22 mL) subcutaneous pen (Tresiba FlexTouch U-100 insulin) lisinopril 10 mg tablet 10 mg PO QAM #90 tabs 05/14/22 gabapentin 100 mg capsule 100 mg PO HS #30 caps 05/19/22 pantoprazole 40 mg tablet,delayed 40 mg PO BID #30 tabs 05/19/22 release alirocumab 75 mg/mL subcutaneous 75 mg subcut Q14D #2 mL 05/21/22 pen injector (Praluent Pen) Results & Data (ED) Vital Signs Vital Signs - 24 hr 08/21/22 14:19 08/21/22 14:19 08/21/22 14:26 Temperature 36.9 C Temperature Source Oral Pulse Rate 89 Pulse Rate [Apical] Pulse Rate from SpO2 Sensor Pulse Rhythm [Apical] Pulse Strength [Apical] Respiratory Rate 18 Respiratory Effort / Characteristics Non-Labored Respiratory Depth Normal Respiratory Pattern Regular Blood Pressure 191/90 H Blood Pressure [Left Arm] Blood Pressure Mean 123 Blood Pressure Mean [Left Arm] Blood Pressure Position [Left Arm] Pulse Oximetry 98 98 Oxygen Delivery Method Room Air Room Air Room Air Sepsis Recent Fever Within 48 Hours No Sepsis New/Unexplained Change in Mental Status No Sepsis Action Taken by Nursing No Action Required 08/21/22 14:30 08/21/22 14:40 08/21/22 14:50 Temperature Temperature Source Pulse Rate 79 81 82 Pulse Rate [Apical] Pulse Rate from SpO2 Sensor 80 80 80 Pulse Rhythm [Apical] Pulse Strength [Apical] Respiratory Rate 21 15 21 Respiratory Effort / Characteristics Respiratory Depth Respiratory Pattern Blood Pressure Blood Pressure [Left Arm] Blood Pressure Mean Blood Pressure Mean [Left Arm] Blood Pressure Position [Left Arm] Pulse Oximetry 99 98 93 Oxygen Delivery Method Sepsis Recent Fever Within 48 Hours Sepsis New/Unexplained Change in Mental Status Sepsis Action Taken by Nursing 08/21/22 15:00 08/21/22 15:10 08/21/22 15:20 Temperature Temperature Source Pulse Rate 79 83 71 Pulse Rate [Apical] Pulse Rate from SpO2 Sensor 79 81 Pulse Rhythm [Apical] Pulse Strength [Apical] Respiratory Rate 14 22 15 Respiratory Effort / Characteristics Respiratory Depth Respiratory Pattern Blood Pressure 144/82 H Blood Pressure [Left Arm] Blood Pressure Mean 102 Blood Pressure Mean [Left Arm] Blood Pressure Position [Left Arm] Pulse Oximetry 97 97 Oxygen Delivery Method Sepsis Recent Fever Within 48 Hours Sepsis New/Unexplained Change in Mental Status Sepsis Action Taken by Nursing 08/21/22 15:30 08/21/22 15:40 08/21/22 15:50 Temperature Temperature Source Pulse Rate 70 64 66 Pulse Rate [Apical] Pulse Rate from SpO2 Sensor Pulse Rhythm [Apical] Pulse Strength [Apical] Respiratory Rate 15 13 17 Respiratory Effort / Characteristics Respiratory Depth Respiratory Pattern Blood Pressure Blood Pressure [Left Arm] Blood Pressure Mean Blood Pressure Mean [Left Arm] Blood Pressure Position [Left Arm] Pulse Oximetry Oxygen Delivery Method Sepsis Recent Fever Within 48 Hours Sepsis New/Unexplained Change in Mental Status Sepsis Action Taken by Nursing 08/21/22 17:21 08/21/22 16:00 08/21/22 16:10 Temperature Temperature Source Pulse Rate 63 58 L Pulse Rate [Apical] 81 Pulse Rate from SpO2 Sensor Pulse Rhythm [Apical] Regular Pulse Strength [Apical] Normal Respiratory Rate 18 16 15 Respiratory Effort / Characteristics Non-Labored Spontaneous Respiratory Depth Normal Respiratory Pattern Regular Blood Pressure Blood Pressure [Left Arm] 190/91 H Blood Pressure Mean Blood Pressure Mean [Left Arm] 124 Blood Pressure Position [Left Arm] Semi-fowlers Pulse Oximetry 99 Oxygen Delivery Method Room Air Sepsis Recent Fever Within 48 Hours Sepsis New/Unexplained Change in Mental Status Sepsis Action Taken by Nursing 08/21/22 16:20 08/21/22 16:30 08/21/22 16:40 Temperature Temperature Source Pulse Rate 72 58 L 74 Pulse Rate [Apical] Pulse Rate from SpO2 Sensor Pulse Rhythm [Apical] Pulse Strength [Apical] Respiratory Rate 16 14 14 Respiratory Effort / Characteristics Respiratory Depth Respiratory Pattern Blood Pressure Blood Pressure [Left Arm] Blood Pressure Mean Blood Pressure Mean [Left Arm] Blood Pressure Position [Left Arm] Pulse Oximetry Oxygen Delivery Method Sepsis Recent Fever Within 48 Hours Sepsis New/Unexplained Change in Mental Status Sepsis Action Taken by Nursing 08/21/22 16:50 08/21/22 17:20 08/21/22 17:20 Temperature Temperature Source Pulse Rate 75 80 Pulse Rate [Apical] Pulse Rate from SpO2 Sensor 80 Pulse Rhythm [Apical] Pulse Strength [Apical] Respiratory Rate 16 21 Respiratory Effort / Characteristics Respiratory Depth Respiratory Pattern Blood Pressure 190/91 H Blood Pressure [Left Arm] Blood Pressure Mean 124 Blood Pressure Mean [Left Arm] Blood Pressure Position [Left Arm] Pulse Oximetry 100 Oxygen Delivery Method Sepsis Recent Fever Within 48 Hours Sepsis New/Unexplained Change in Mental Status Sepsis Action Taken by Nursing 08/21/22 17:30 08/21/22 17:40 Temperature Temperature Source Pulse Rate 105 H 87 Pulse Rate [Apical] Pulse Rate from SpO2 Sensor 105 H 87 Pulse Rhythm [Apical] Pulse Strength [Apical] Respiratory Rate 20 24 Respiratory Effort / Characteristics Respiratory Depth Respiratory Pattern Blood Pressure Blood Pressure [Left Arm] Blood Pressure Mean Blood Pressure Mean [Left Arm] Blood Pressure Position [Left Arm] Pulse Oximetry 99 94 Oxygen Delivery Method Sepsis Recent Fever Within 48 Hours Sepsis New/Unexplained Change in Mental Status Sepsis Action Taken by [facility] Medications Current Medication List: was personally reviewed by me Laboratory Data Attestation: I reviewed the patient's lab results. 08/21/22 14:27 08/21/22 14:27 Lab Results 08/21/22 08/21/22 08/21/22 Range/Units 14:27 14:27 14:27 WBC 6.06 (4.8-10.8) K/ul RBC 5.03 (3.93-5.22) M/uL Hgb 14.6 (12.0-16.0) g/dl Hct 42.4 (34.1-44.9) % MCV 84.3 (80.0-100.0) fL MCH 29.0 (25.0-34.0) pg MCHC 34.4 (32.0-36.0) g/dL RDW Std Deviation 41.5 (36.4-46.3) fL RDW Coeff of Tino 13.5 (11.5-14.5) % Plt Count 216 (130-400) K/uL MPV 10.4 (9.4-12.3) fL Immature Gran % (Auto) 0.2 % Neut % (Auto) 63.7 % Lymph % (Auto) 28.1 % [place] % (Auto) 5.1 % Eos % (Auto) 2.1 % Baso % (Auto) 0.8 % Neut # (Auto) 3.86 (1.4-6.5) K/uL Lymph # (Auto) 1.70 (1.2-3.4) K/uL [place] # (Auto) 0.31 (0.24-0.82) K/uL Eos # (Auto) 0.13 (0-0.50) K/uL Baso # (Auto) 0.05 (0-0.2) K/uL Immature Gran # (Auto) 0.01 (0.00-0.02) K/uL PT 10.4 (9.0-12.0) Seconds INR 1.0 (0.9-1.1) APTT 25.7 (21.0-31.0) Seconds PTT Ratio 0.9 Sodium 136 (136-145) mmol/L Potassium 3.8 (3.5-5.1) mmol/L Chloride 98 (98-107) mmol/L Carbon Dioxide 28 (21-32) mmol/L Anion Gap 10 (3-11) BUN 16 (6-23) mg/dl Creatinine 0.92 (0.6-1.2) mg/dl Est Cr Clr Drug Dosing Not Reportable Est GFR ( Amer) 70.6 ml/min Est GFR (Non-Af Amer) 60.9 ml/min BUN/Creatinine Ratio 17.4 (10-20) Glucose 414 H* (70-99(Fasting)) mg/dl Calcium 9.9 (8.5-10.1) mg/dl Total Bilirubin 0.6 (0.2-1.0) mg/dl AST 54 H (13-39) U/L ALT 107 H (7-52) U/L Alkaline Phosphatase 142 H (34-104) U/L Troponin I High Sens 8.2 (0-14) pg/ml Total Protein 7.4 (6.0-8.3) gm/dl Albumin 4.0 (3.4-5.0) gm/dl Globulin 3.4 (2.5-4.0) gm/dl Albumin/Globulin Ratio 1.2 (0.9-2) Lipase 72 (11-82) U/L SARS-CoV-2, RNA, NAAT (NEGATIVE) 08/21/22 Range/Units 14:32 WBC (4.8-10.8) K/ul RBC (3.93-5.22) M/uL Hgb (12.0-16.0) g/dl Hct (34.1-44.9) % MCV (80.0-100.0) fL MCH (25.0-34.0) pg MCHC (32.0-36.0) g/dL RDW Std Deviation (36.4-46.3) fL RDW Coeff of Tino (11.5-14.5) % Plt Count (130-400) K/uL MPV (9.4-12.3) fL Immature Gran % (Auto) % Neut % (Auto) % Lymph % (Auto) % [place] % (Auto) % Eos % (Auto) % Baso % (Auto) % Neut # (Auto) (1.4-6.5) K/uL Lymph # (Auto) (1.2-3.4) K/uL [place] # (Auto) (0.24-0.82) K/uL Eos # (Auto) (0-0.50) K/uL Baso # (Auto) (0-0.2) K/uL Immature Gran # (Auto) (0.00-0.02) K/uL PT (9.0-12.0) Seconds INR (0.9-1.1) APTT (21.0-31.0) Seconds PTT Ratio Sodium (136-145) mmol/L Potassium (3.5-5.1) mmol/L Chloride (98-107) mmol/L Carbon Dioxide (21-32) mmol/L Anion Gap (3-11) BUN (6-23) mg/dl Creatinine (0.6-1.2) mg/dl Est Cr Clr Drug Dosing Est GFR ( Amer) ml/min Est GFR (Non-Af Amer) ml/min BUN/Creatinine Ratio (10-20) Glucose (70-99(Fasting)) mg/dl Calcium (8.5-10.1) mg/dl Total Bilirubin (0.2-1.0) mg/dl AST (13-39) U/L ALT (7-52) U/L Alkaline Phosphatase (34-104) U/L Troponin I High Sens (0-14) pg/ml Total Protein (6.0-8.3) gm/dl Albumin (3.4-5.0) gm/dl Globulin (2.5-4.0) gm/dl Albumin/Globulin Ratio (0.9-2) Lipase (11-82) U/L SARS-CoV-2, RNA, NAAT NEGATIVE (NEGATIVE) Administered Medications Discontinued Medications Fentanyl Citrate (Fentanyl Citrate 100 Mcg/2 Ml Vial) 50 mcg IV NOW STA Stop: 08/21/22 16:52 Last Admin: 08/21/22 17:25 Dose: 50 mcg Documented By: CORBY Sodium Chloride (Nss 1000ml) 1,000 mls @ 999 mls/hr IV .Q1H1M STA Stop: 08/21/22 15:14 Last Infusion: 08/21/22 15:37 Dose: 0 mls/hr Documented By: Admin: 08/21/22 14:35 Dose: 999 mls/hr Documented By: Sodium Chloride (Nss) 500 mls @ 999 mls/hr IV .Q31M ONE Stop: 08/21/22 17:01 Last Admin: 08/21/22 17:22 Dose: 999 mls/hr Documented By: CORBY Insulin Human Regular (Novolin-R Insulin Per Unit Charge) 6 units IV NOW STA Stop: 08/21/22 16:32 Last Admin: 08/21/22 17:23 Dose: 6 units Documented By: CORBY Co-signed By: TIFF Ioversol (Optiray 350 100ml) 87 ml IV ONCE ONE Stop: 08/21/22 17:16 Last Admin: 08/21/22 17:15 Dose: 87 ml Documented By: MIRIAN Ketorolac Tromethamine (Ketorolac Tromethamine 15 Mg/Ml Vial) 10 mg IV NOW ONE Stop: 08/21/22 15:41 Last Admin: 08/21/22 15:46 Dose: 10 mg Documented By: CORBY Ondansetron HCl (Ondansetron Inj 2 Mg/Ml 2 Ml Vial) 4 mg IV NOW STA Stop: 08/21/22 16:52 Last Admin: 08/21/22 17:22 Dose: 4 mg Documented By: CORBY Imaging Data Radiologist's Impression: Chest X-Ray 08/21/22 14:14 XR chest 1V portable CLINICAL HISTORY: Chest pain, nonspecific COMPARISON STUDY: Chest CT November 27, 2021 and chest radiograph January 10, 2022. FINDINGS: Lung volumes are normal. Lungs are clear. There is no pneumothorax or pleural effusion. Cardiac size is normal. Mediastinal contours are normal. There is no evidence for pulmonary edema. IMPRESSION: No acute cardiopulmonary findings. ACT 112: Negative or not required by law. Electronically signed by: Jimmy Chavarria M.D. 08/21/2022 2:52 PM Abdomen/Pelvis CT 08/21/22 16:46 CT SCAN OF THE ABDOMEN AND PELVIS WITH IV CONTRAST CLINICAL HISTORY: Generalized abdominal pain. Vomiting. COMPARISON STUDY: Abdominal CT dated 10/25/2021. TECHNIQUE: Following the IV administration of 87 cc of Optiray 350, CT scan of the abdomen and pelvis is performed from the lung bases to the proximal femora. Images are reviewed in the axial, sagittal, and coronal planes. IV contrast was administered without complication. A dose lowering technique was utilized adhering to the principles of ALARA. CT DOSE: 447.58 mGy.cm FINDINGS: Lung bases: The heart is top normal in size and without pericardial effusion. The coronary arteries are densely calcified. There is a [id number] hiatal hernia. The lung bases are clear noting bibasilar scarring/atelectasis. Liver: The contrast-enhanced liver is normal in size, contour, and attenuation. There is no intrahepatic biliary ductal dilatation. The hepatic veins and portal veins are patent. Gallbladder: Surgically absent. Spleen: Normal in size and attenuation. Pancreas: Unremarkable. Adrenal glands: Unremarkable. Kidneys: The contrast enhanced kidneys demonstrate mild cortical atrophy and are without hydronephrosis. The kidneys enhance symmetrically. Abdominal vasculature: The abdominal aorta is normal in course and caliber noting moderate to advanced atherosclerotic calcification. Bowel: There is rectosigmoid fecal retention and moderate constipation. No bowel obstruction is seen. There is rectal wall thickening with perirectal/presacral soft tissue inflammation. The appendix is not visualized. Peritoneum: There is no intraperitoneal free air or abdominal ascites. Lymphadenopathy: None. Pelvic viscera: The bladder is normal as visualized. The uterus is surgically absent. No adnexal lesion is seen. Skeletal structures: The skeletal structures are osteopenic. There is mild to moderate lumbosacral spondylosis. No lytic or blastic lesions are seen. IMPRESSION: 1. Rectosigmoid fecal retention and moderate constipation. 2. There is rectal wall thickening with perirectal/presacral soft tissue inflammation. Correlate clinically for evidence of proctitis, likely stercoral. 3. No intraperitoneal free air is identified. 4. Additional findings as above. ACT 112: Negative or not required by law. Electronically signed by: Olvier Moreno M.D. 08/21/2022 5:26 PM Discharge Plan Visit Data Chief Complaint: Chest Pain Stated Complaint: CHEST PAIN ED Provider: Eliud Guadalupe Discharge Problem: Chest pain, Vomiting, Abnormal LFTs, Acute hyperglycemia Patient Disposition: Being Evaluated by Hospitalist Forms Stand Alone Forms: [facility] Prescriptions Prescriptions: No Action cholecalciferol (vitamin D3) [Vitamin D3] 1,000 unit capsule 1,000 units PO QAM Qty: 0 Label Comments: Take with the largest meal of the day. (DME) OneTouch Verio test strips Strip See Dose Instructions .ROUTE .MEDSUPPLY Qty: 200 3RF Dose Instruction: As directed Rx Instructions: Test 4 TIMES Daily. duloxetine 30 mg capsule,delayed release(DR/EC) 30 mg PO QAM Qty: 90 3RF isosorbide mononitrate 30 mg tablet extended release 24 hr 60 mg PO QAM Qty: 180 3RF buspirone 10 mg tablet 10 mg PO TID Qty: 270 1RF metformin 500 mg tablet 1,000 mg PO BID Qty: 120 6RF insulin aspart U-100 [Novolog Flexpen U-100 Insulin] 100 unit/mL (3 mL) insulin pen 24 unit subcut DAILY Qty: 15 5RF Rx Instructions: Inject 6 units with breakfast, 8 units with lunch, 10 units with dinner plus sliding scale TDD 40 units rosuvastatin 40 mg tablet 40 mg PO QAM Qty: 90 3RF Rx Instructions: for cholesterol lisinopril 10 mg tablet 10 mg PO QAM Qty: 90 3RF Tresiba FlexTouch U-100 100 unit/mL (3 mL) insulin pen 48 unit SQ QPM Qty: 15 5RF gabapentin 100 mg capsule 100 mg PO HS Qty: 30 3RF pantoprazole 40 mg tablet,delayed release (DR/EC) 40 mg PO BID Qty: 30 6RF Rx Instructions: TAKE 1 TABLET BY MOUTH TWICE A DAY (DME) pen needle, diabetic [BD Ultra-Fine [place] Pen Needle] 32 gauge x 5/32" needle See Rx Instructions .ROUTE .MEDSUPPLY Dose Instruction: As directed Rx Instructions: Inject insulin four times daily ondansetron HCl 4 mg tablet 4 mg PO Q8H PRN (Reason: nausea and vomiting) Qty: 30 0RF Praluent Pen 75 mg/mL pen injector 75 mg subcut Q14D Qty: 2 11RF diclofenac sodium [Arthritis Pain (diclofenac)] 1 % gel 2 g topical QID Rx Instructions: apply to single elbow, wrist or hand; for hand includes palm/fingers/back of hand (OTC) Trelegy Ellipta 100-62.5-25 mcg blister with device 1 inh inhalation DAILY Qty: 28 11RF Rx Instructions: She was instructed to rinse mouth thoroughly after each dose. metoprolol succinate 100 mg tablet extended release 24 hr 100 mg PO QAM Qty: 90 3RF Linzess 145 mcg capsule 145 mcg PO QAM PRN (Reason: Constipation) Label Comments: Take 30 minutes prior to first meal of the day. Do Not open or Crush capsule famotidine 20 mg tablet 20 mg PO BID Qty: 180 2RF (DME) FreeStyle Renan 2 Sensor Kit See Rx Instructions .Route Rx Instructions: As directed (DME) FreeStyle Renan 2 [place] Misc See Rx Instructions .Route Rx Instructions: As directed ezetimibe [Zetia] 10 mg tablet 10 mg PO QAM Qty: 90 3RF Gvoke HypoPen 2-Pack 1 mg/0.2 mL auto-injector 1 mg subcut .COMPLEX Qty: 0.4 0RF Rx Instructions: 1 mg subcut as directed for hypoglycemia; nitroglycerin [Nitrostat] 0.4 mg tablet, sublingual 0.4 mg Sublingual UD PRN (Reason: Chest Pain) Qty: 1 3RF benzonatate 200 mg capsule 200 mg PO TID PRN (Reason: cough) Qty: 30 0RF fluconazole [Diflucan] 150 mg tablet 150 mg PO Q3D Qty: 2 0RF aspirin 81 mg Tablet,Delayed Release (Dr/Ec) 81 mg PO QAM albuterol sulfate 90 mcg/actuation HFA aerosol inhaler 2 inha INH QID PRN (Reason: shortness of breath or wheezing) Qty: 1 0RF Referrals Referrals: Lalito Pimentel MD [Primary Care Provider] - : Chest pain Qualifiers: Chest pain type: unspecified Qualified Code(s): R07.9 - Chest pain, unspecified Vomiting Qualifiers: Vomiting type: unspecified Nausea presence: with nausea Qualified Code(s): R11.2 - Nausea with vomiting, unspecified
[2022-08-21 14:41] LABS: Basophils # (auto) 0.05 K/uL (0-0.2); Basophils % (auto) 0.8 %; Eosinophils # (auto) 0.13 K/uL (0-0.50); Eosinophils % (auto) 2.1 %; Hematocrit (blood only) 42.4 % (34.1-44.9); Hemoglobin 14.6 g/dl (12.0-16.0); Immature Granulocytes # (auto) 0.01 K/uL (0.00-0.02); Immature Granulocytes % (auto) 0.2 %; Lymphocytes % (auto) 28.1 %; Mean Corpuscular Hgb Conc 34.4 g/dL (32.0-36.0); Mean Corpuscular Volume 84.3 fL (80.0-100.0); Mean Platelet Volume 10.4 fL (9.4-12.3); Monocytes # (auto) 0.31 K/uL (0.24-0.82); Monocytes % (auto) 5.1 %; Neutrophils # (auto) 3.86 K/uL (1.4-6.5); Neutrophils % (auto) 63.7 %; Platelet Count 216 K/uL (130-400); RDW Coefficient of Variation 13.5 % (11.5-14.5); RDW Standard Deviation 41.5 fL (36.4-46.3); Red Blood Count 5.03 M/uL (3.93-5.22); White Blood Count 6.06 K/ul (4.8-10.8)
--- NOTE | 2022-08-21 14:53 | XRay Report ---
XR chest 1V portable CLINICAL HISTORY: Chest pain, nonspecific COMPARISON STUDY: Chest CT November 27, 2021 and chest radiograph January 10, 2022. FINDINGS: Lung volumes are normal. Lungs are clear. There is no pneumothorax or pleural effusion. Car diac size is normal. Mediastinal contours are normal. There is no evidence for pulmonary edema. IMPRESSION: No acute cardiopulmonary findings. ACT 112: Negative or not required by law. Electronically signed by: Jimmy Chavarria M.D. 08/21/2022 2:52 PM
[2022-08-21 14:58] LABS: Partial Thromboplastin Ratio 0.9; Partial Thromboplastin Time 25.7 Seconds (21.0-31.0); Prothrombin Time 10.4 Seconds (9.0-12.0)
[2022-08-21] MEDS ORDERED: KETOROLAC TROMETHAMINE 15 MG/ML VIAL IV ONE (15:40)
[2022-08-21 16:03] LABS: Alanine Aminotransferase 107 U/L (7-52); Albumin Globulin Ratio 1.2 (0.9-2); Alkaline Phosphatase 142 U/L (34-104); Anion Gap 10 (3-11); Aspartate Aminotransferase 54 U/L (13-39); BUN Creatinine Ratio 17.4 (10-20); Bilirubin,Total 0.6 mg/dl (0.2-1.0); Blood Urea Nitrogen 16 mg/dl (6-23); Calcium 9.9 mg/dl (8.5-10.1); Carbon Dioxide 28 mmol/L (21-32); Chloride 98 mmol/L (98-107); Est GFR (African American) 70.6 ml/min; Est GFR (Non-African American) 60.9 ml/min; Globulin 3.4 gm/dl (2.5-4.0); Glucose 414 mg/dl (70-99(Fasting)); Lipase 72 U/L (11-82); Potassium 3.8 mmol/L (3.5-5.1); Sodium 136 mmol/L (136-145); Total Protein 7.4 gm/dl (6.0-8.3); Troponin I High Sensitivity 8.2 pg/ml (0-14)
[2022-08-21] MEDS ORDERED: NovoLIN-R INSULIN PER UNIT CHARGE IV STA (16:31)
[2022-08-21] MEDS ORDERED: SODIUM CHLORIDE 0.9% 500 ML IV ONE (16:31)
[2022-08-21] MEDS ORDERED: fentaNYL citrate PF 100 MCG/2 ML VIAL IV STA (16:51)
[2022-08-21] MEDS ORDERED: ONDANSETRON INJ 2 MG/ML 2 ML VIAL IV STA (16:51)
[2022-08-21] MEDS ORDERED: OPTIRAY 350 100ml IV ONE (17:15)
--- NOTE | 2022-08-21 17:29 | CT Scan Report ---
CT SCAN OF THE ABDOMEN AND PELVIS WITH IV CONTRAST CLINICAL HISTORY: Generalized abdominal pain. Vomiting. COMPARISON STUDY: Abdominal CT dated 10/25/2021. TECHNIQUE: Following the IV administration of 87 cc of Optiray 350, CT scan of the abdomen and pelvi s is performed from the lung bases to the proximal femora. Images are reviewed in the axial, sagittal , and coronal planes. IV contrast was administered without complication. A dose lowering technique wa s utilized adhering to the principles of ALARA. CT DOSE: 447.58 mGy.cm FINDINGS: Lung bases: The heart is top normal in size and without pericardial effusion. The coronary arteries a re densely calcified. There is a agjfe-qt-vuukelfc hiatal hernia. The lung bases are clear noting bib asilar scarring/atelectasis. Liver: The contrast-enhanced liver is normal in size, contour, and attenuation. There is no intrahepa tic biliary ductal dilatation. The hepatic veins and portal veins are patent. Gallbladder: Surgically absent. Spleen: Normal in size and attenuation. Pancreas: Unremarkable. Adrenal glands: Unremarkable. Kidneys: The contrast enhanced kidneys demonstrate mild cortical atrophy and are without hydronephros is. The kidneys enhance symmetrically. Abdominal vasculature: The abdominal aorta is normal in course and caliber noting moderate to advance d atherosclerotic calcification. Bowel: There is rectosigmoid fecal retention and moderate constipation. No bowel obstruction is seen. There is rectal wall thickening with perirectal/presacral soft tissue inflammation. The appendix is not visualized. Peritoneum: There is no intraperitoneal free air or abdominal ascites. Lymphadenopathy: None. Pelvic viscera: The bladder is normal as visualized. The uterus is surgically absent. No adnexal lesi on is seen. Skeletal structures: The skeletal structures are osteopenic. There is mild to moderate lumbosacral sp ondylosis. No lytic or blastic lesions are seen. IMPRESSION: 1. Rectosigmoid fecal retention and moderate constipation. 2. There is rectal wall thickening with perirectal/presacral soft tissue inflammation. Correlate clin ically for evidence of proctitis, likely stercoral. 3. No intraperitoneal free air is identified. 4. Additional findings as above. ACT 112: Negative or not required by law. Electronically signed by: Oliver Moreno M.D. 08/21/2022 5:26 PM
--- NOTE | 2022-08-21 18:10 | History & Physical Report ---
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 Chest pain/Dizziness: -Chest pain x1-2 weeks, history of NSTEMI 11/2021 and 11/2005 s/p 3 JOHNATHAN. -EKG normal sinus w/o acute ischemic changes. -CXR negative for acute cardiopulmonary findings. -Troponin 8.2 on admission. -Will order repeat echocardiogram. Last echo w/ EF 55-60%, very mild hypokinesis mid to distal lateral wall, improved from prior study. -Given negative trop and EKG may be more related to emesis induced MSK soreness/pain however will get repeat echo as above. -Dizziness may be secondary to dehydration vs orthostatics vs BPPV. Ordered ort hostatics. Less likely cardiac in nature. -Zofran 4mg IV q6h for nausea. -Continue home metoprolol, rosuvastatin, baby aspirin, imdur, lisinopril, PRN nitroglycerin. -Acetaminophen 650mg q4h for pain. Hyperglycemia: -BSG on admission 414. Patient's glucose has been chronically elevated above 300 past few months. -On 43 units of SQ long acting at home. Novolog 03/23/13u + sliding scale w/ factor 25 for BG >150. -Received 6U IV insulin in ED. Repeat BSG 295. -Of note patient mentioned she has gone hypoglycemic in past. Hypoglycemia protocol in place. -Started on Lantus 22U BID, correction factor 20, carb ratio 6g/U -Start on clear liquid diet given N/V advance as tolerated. Abnormal LFTs: -AST 54, ALT 107, Alk Phos 142. T Bili 0.6 -History of cholecystectomy. Mild diffuse abdominal soreness on exam however more likely due to emesis related MSK pain. -Liver on CT A&P normal in size, contour, no intrahepatic biliary ductal dilatat ion. -May be related to dehydration related demand ischemia. -Trend liver enzymes w/ AM CMP. Change in bowel habits: -Diarrhea a few weeks back, now with constipation. -CT A&P w/ rectal wall thickening w/ perirectal presacral soft tissue inflammation. Rectosigmoid fecal retention and moderate constipation. -Added bowel regimen, miralax BID, mag citrate. CAD: -Continue home baby aspirin, rosuvastatin, zetia. Reactive airway disease: -Continue home albuterol, Trelegy Ellipta. Diabetic neuropathy: -Continue home Gabapentin 100mg qHS. GERD: -Continue home famotidine 20mg BID. CKD: -GFR 60, creatinine 0.92 on admission. -Continue to trend. Hypertension: -Continue home metoprolol and lisinopril as above. HLD: -Continue home rosuvastatin and zetia as above. Anxiety/Depression: -Continue home buspirone and duloxetine. F/E/N/GI: Start on clears, advance as tolerated. Zofran 4mg IV q6h PRN for nausea. DVT Prophylaxis: SCDs, Lovenox 40mg qAM. Code status: DNR/DNI. Discussed w/ patient, would not like resuscitative measures or intubation if needed. Dispo: Med/surg telemetry. (2) Hyperglycemia: (3) Chest pain: (4) Abnormal LFTs: (5) Change in bowel habits: (6) Diabetic nephropathy: (7) CAD (coronary artery disease): (8) CKD (chronic kidney disease), stage III: (9) Reactive airway disease: (10) Anxiety: (11) GERD (gastroesophageal reflux disease): (12) Uncontrolled type 2 diabetes mellitus with neurologic complication, with long-term current use of insulin: (13) Constipation: (14) HTN (hypertension): (15) S/P coronary artery stent placement: (16) Dyslipidemia: (17) Depression: (18) IBS (irritable bowel syndrome): History of Present Illness Chief Complaint: L sided chest pain. 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 Patient states that she was previously seen in the ED in late July about a week ago for diarrhea that was persistent and watery, at that time her stool PCR was negative, given IV fluids and had improvement in overall condition. She states that her diarrhea has since gone away and has been replaced with constipation as whenever she tries to get out a stool it bubbles a little and maybe one drop comes out. She states at the time of her last ED visit she had chest pain at the left chest as well as dizziness present however not as intense as it had been before coming in this time. She states that her chest pain is at the left side of the chest and radiates down the left arm. She has had nausea and vomiting with this, the last time she vomited was this morning when she tried eating something for breakfast. The chest pain has been getting progressively worse but does not get worse with anything in particular and the intensity waxes and wanes. Prior to coming in her chest pain was at around 8 to 8.5/10 however she says right now it has improved to 7/10. She also has dizziness at that has been constant and gotten worse. She states she is an insulin dependent diabetic and has long acting as well as short acting insulin at home. She states she is compliant, does not know the doses of insulin she receives. Per patient her sugars at home have been elevated with BSG in the mornings being consistently above 300 for the past few months and above 400 the past couple days. She has tried adjustments to the insulin regimen with her PCP however this has not helped much with her elevated sugars. She has a more recent history of neuropathy at the feet with pain rather than numbness. At time she may have headaches however usually relieved with OTC Tylenol. She also says she has a history of lower back pain that is currently controlled. Patient denies abdominal pain, bloating, changes in vision or hearing, shortness of breath. Patient does not have any history of smoking or alcohol consumption. Allergies Allergy/AdvReac Type Severity Reaction Status Date / Time cephalexin Allergy Intermediate Rash and Verified 08/21/22 18:38 itchiness Cephalosporins Allergy Intermediate Rash and Verified 08/21/22 18:38 itchiness Sulfa (Sulfonamide Allergy Intermediate Hives Verified 08/21/22 18:38 Antibiotics) Home Medications Medication Instructions Recorded Confirmed Type cholecalciferol (vitamin D3) 25 1,000 units PO QAM #0 tabs 04/05/19 08/21/22 History mcg (1,000 unit) capsule (Vitamin D3) linaclotide 145 mcg capsule 145 mcg PO QAM PRN Constipation 04/05/19 08/21/22 History (Linzess) pen needle, diabetic 32 gauge x 11/18/20 08/21/22 History 5/32" (BD Ultra-Fine [place] Pen Needle) famotidine 20 mg tablet 20 mg PO BID #180 tabs 05/07/21 08/21/22 Rx ondansetron HCl 4 mg tablet 4 mg PO Q8H PRN nausea and 06/24/21 08/21/22 Rx vomiting #30 tabs flash glucose scanning reader 06/26/21 08/21/22 History (FreeStyle Renan 2 Marvin) flash glucose sensor (FreeStyle 06/26/21 08/21/22 History Renan 2 Sensor kit) blood sugar diagnostic (OneTouch #200 ea 08/14/21 08/21/22 Rx Verio test strips) duloxetine 30 mg capsule,delayed 30 mg PO QAM #90 caps 08/19/21 08/21/22 Rx release isosorbide mononitrate 30 mg 60 mg PO QAM #180 tabs 08/19/21 08/21/22 Rx tablet,extended release 24 hr aspirin 81 mg tablet,delayed 81 mg PO QAM 10/24/21 08/21/22 History release diclofenac sodium 1 % topical gel 2 g topical QID PRN Pain 10/31/21 08/21/22 History (Arthritis Pain (diclofenac)) Gvoke HypoPen 2-Pack 1 mg/0.2 mL 1 mg (0.2 mL) subcut .COMPLEX #0.4 11/03/21 08/21/22 Rx subcutaneous auto-injector mL (glucagon) ezetimibe 10 mg tablet (Zetia) 10 mg PO QAM #90 tabs 11/03/21 08/21/22 Rx buspirone 10 mg tablet 10 mg PO TID #270 tabs 11/06/21 08/21/22 Rx metformin 500 mg tablet 1,000 mg PO BID #120 tabs 11/07/21 08/21/22 Rx nitroglycerin 0.4 mg sublingual 0.4 mg sublingual UD PRN Chest 12/08/21 08/21/22 Rx tablet (Nitrostat) Pain #1 btl albuterol sulfate 90 mcg/actuation 2 inha inhalation QID PRN 01/10/22 08/21/22 Rx aerosol inhaler shortness of breath or wheezing #1 g benzonatate 200 mg capsule 200 mg PO TID PRN cough #30 caps 01/15/22 08/21/22 Rx fluticasone fur. 100 mcg-umeclid 1 inh inhalation DAILY #28 ea 02/11/22 08/21/22 Rx 62.5 mcg-vilant 25 mcg inhalat.powder (Trelegy Ellipta) metoprolol succinate 100 mg 100 mg PO QAM #90 tabs 02/11/22 08/21/22 Rx tablet,extended release 24 hr insulin aspart U-100 100 unit/mL 24 unit (0.24 mL) subcut DAILY #15 02/18/22 08/21/22 Rx (3 mL) subcutaneous pen (Novolog mL Flexpen U-100 Insulin aspart) rosuvastatin 40 mg tablet 40 mg PO QAM #90 tabs 04/01/22 08/21/22 Rx insulin degludec 100 unit/mL (3 48 unit (0.48 mL) subcut QPM #15 mL 05/14/22 08/21/22 Rx mL) subcutaneous pen (Tresiba FlexTouch U-100 insulin) lisinopril 10 mg tablet 10 mg PO QAM #90 tabs 05/14/22 08/21/22 Rx gabapentin 100 mg capsule 100 mg PO HS #30 caps 05/19/22 08/21/22 Rx pantoprazole 40 mg tablet,delayed 40 mg PO BID #30 tabs 05/19/22 08/21/22 Rx release alirocumab 75 mg/mL subcutaneous 75 mg subcut Q14D #2 mL 05/21/22 08/21/22 Rx pen injector (Praluent Pen) Past Med/Surg History Medical History (Updated 08/21/22 @ 18:51 by Antonino Guy DO) Acute non-ST elevation myocardial infarction (NSTEMI) 11/28/2021 had [facility] medical management and follow with dr kaylen jeter 02/09/2022 Nix esophagus CAD (coronary artery disease) s/p stents to RCA November 2005; s/p stents to LAD, LCx in January 2006; s/p stents to RCA in 08/2006 Cervical pain (neck) Chest pain chronic chest pain and cardiac is negative Chronic pain syndrome Depression Diabetes mellitus, type 2 IDDM Diabetic gastroparesis Diabetic peripheral neuropathy Dyslipidemia Folic acid deficiency GERD without esophagitis History of COVID-19 2020 - resolved IBS (irritable bowel syndrome) Lumbar spondylosis Myocardial Infarction NV- November 2005, January 2006, Aug 2006 3 total within an 8 month span--HX OF CATH 2012 [facility] [place], FOLLOWS WITH DR. JULES Vitamin B12 deficiency Surgical History History of cardiac cath last 2012 @ [facility] [place], no stents--s/p stents to RCA November 2005; s/p stents to LAD, LCx in January 2006; s/p stents to RCA in 08/2006 History of cataract surgery BL History of cholecystectomy History of colonoscopy with polypectomy History of esophageal dilatation History of esophagogastroduodenoscopy (EGD) History of lumbar spinal fusion History of tooth extraction all teeth History of total hysterectomy with bilateral salpingo-oophorectomy (BSO) History of total right knee replacement (TKR) S/P coronary artery stent placement s/p stents to RCA November 2005; s/p stents to LAD, LCx in January 2006; s/p stents to RCA in 08/2006 Status post trigger finger release right thumb Family History Brother Myocardial infarction Anxiety Heart disease Hypertension Cancer Sister Family history of reaction to anesthesia difficulty waking Hypertension Heart disease Myocardial infarction Anxiety Cancer Diabetes Father Anxiety Heart disease Hypertension Mother Anxiety Hypertension Heart disease Unknown Cancer skin, GI Denies family history of Ovarian cancer Prostate cancer Breast cancer Colorectal cancer Stroke Social History Smoking Status: Never smoker Tobacco Type: Cigarettes Age Started Using Tobacco: 18; Age Quit Using Tobacco: 57; Cigarettes Per Day: 3 cigarettes a week; Second Hand Exposure: No; Hx Alcohol Use: No Hx Substance Use: No Preferred Language: Ecuadorean Communication Ability: Effective Visual Impairment: Limited Hearing Ability: Normal Educational Assistant Teacher Required: No Beliefs That Will Affect Care: None marital status: / Current Living Situation: Alone Current Living Situation Comment: apartment building current occupational status: retired and disabled How many Children do You have: 3 Feels Safe at Home: Yes Childhood Exposure to Second-Hand Smoke: No caffeine: Yes (drinks coffee, diet pepsi occasionally ) Dental Care, Regularly: No Physical Activity Frequency: Does not Exercise Seatbelt Use: always Sunscreen Use: No Assistive Devices: Cane and Walker Review of Systems Review of Systems: As per HPI. Physical Exam Constitutional: WD/WN, vitals as above Patient sitting in bed dry heaving at times. Eyes: PERRL, conjunctivae normal, anicteric sclerae ENMT: external ear and nose normal, oropharynx normal Respiratory: normal respiratory effort, lungs clear to auscultation Cardiovascular: Rate/Rhythm: regular rhythm and + tachycardic Heart Sounds: normal S1 and normal S2 No peripheral swelling. Pulses 2+ bialterally. Gastrointestinal (Abdomen): BS+, mild 'sore feeling' on abdominal palpation, distended, soft. Psychiatric: A+Ox3, euthymic affect Results & Data Results & Data ([facility]) Vital Signs (Past 12 Hours) Vital Signs Temp Pulse Pulse Resp BP BP Pulse Ox 08/21/22 17:40 87 24 94 08/21/22 17:30 105 H 20 99 08/21/22 17:20 80 21 100 08/21/22 17:20 190/91 H 08/21/22 16:50 75 16 08/21/22 16:40 74 14 08/21/22 16:30 58 L 14 08/21/22 16:20 72 16 08/21/22 16:10 58 L 15 08/21/22 16:00 63 16 08/21/22 17:21 81 18 190/91 H 99 08/21/22 15:50 66 17 08/21/22 15:40 64 13 08/21/22 15:30 70 15 08/21/22 15:20 71 15 08/21/22 15:10 83 22 144/82 H 97 08/21/22 15:00 79 14 97 08/21/22 14:50 82 21 93 08/21/22 14:40 81 15 98 08/21/22 14:30 79 21 99 08/21/22 14:26 08/21/22 14:19 98 08/21/22 14:19 36.9 C 89 18 191/90 H 98 O2 Del Method 08/21/22 17:40 08/21/22 17:30 08/21/22 17:20 08/21/22 17:20 08/21/22 16:50 08/21/22 16:40 08/21/22 16:30 01/06/23 16:20 08/21/22 16:10 08/21/22 16:00 08/21/22 17:21 Room Air 08/21/22 15:50 08/21/22 15:40 08/21/22 15:30 08/21/22 15:20 08/21/22 15:10 08/21/22 15:00 08/21/22 14:50 08/21/22 14:40 08/21/22 14:30 08/21/22 14:26 Room Air 08/21/22 14:19 Room Air 08/21/22 14:19 Room Air Supervising Physician Co-Signing Physician Notes Patient seen and examined, chart reviewed, case discussed with Dr. Guy and I agree with the assessment and plan as above except as otherwise noted above. 77yo F with a PMHx of HTN, CAD sp PCI, IBS, constipation, and DM who presentws with chest pain and hyperglycemia in the setting of poor PO intake and diarrhea. Suspect diarrhea was overflow, evidence of constipation and mild ?stercorcal colitis. +bowel regimen. Pt with chest pain reproducible on palpation and present for several hours without acute ekg change and normal high sensitivity troponin. Trend, low suspicion for ACS. BSG is very high. Decreased to 200s from 400s and 6u IV insulin. Pt reports low blood sugar scares her, discussed effect of poorly controlled DM on recurrent NV risk and that highs can also be very dangerous over time. Goal BSG 110-140. Pt did have a hypoglycemic episode with cardiac arrest in the past, will attempt to lower bsg and resume basal/bolus with conservative changes and glycvemic consultation. Hx CHF, but clinically dry on admission with dry MM and no edema. +cautious fluids as noted. HR regular, lungs are clear. Abdominal mildly atender with normal lipase. +H2, symptomatic nausea control, and bowel reigmen. No evidence of obstruciton. Agree with mngmt above. Resident Activity Tracking Resident Involvement: Resident Care Provided Care Provided: Adult Hospital Medicine (1) CAD (coronary artery disease) Associated angina: angina presence unspecified Coronary Disease-Associated Artery/Lesion type: [place] artery [place] vs. transplanted heart: [place] heart Qualified Code(s): I25.10 - Atherosclerotic heart disease of [place] coronary artery without angina pectoris (2) GERD (gastroesophageal reflux disease) Esophagitis presence: without esophagitis Qualified Code(s): K21.9 - Gastro- esophageal reflux disease without esophagitis (3) Chest pain Chest pain type: unspecified Qualified Code(s): R07.9 - Chest pain, unspecified
[2022-08-21] MEDS ORDERED: GLUCOSE 40% GEL 15 GM TUBE PO PRN (19:41)
[2022-08-21] MEDS ORDERED: GLUCOSE 10 TAB/TUBE PO PRN (19:41)
[2022-08-21] MEDS ORDERED: DEXTROSE 50% 50 ML SYRINGE IV PRN (19:41)
[2022-08-21] MEDS ORDERED: GLUCAGON FOR INJ 1 MG VIAL SQ PRN (19:41)
[2022-08-21] MEDS ORDERED: CARBOHYDRATES FOR HYPOGLYCEMIA PO PRN (19:41)
[2022-08-21] MEDS ORDERED: LANTUS PER UNIT CHARGE SQ SCH (21:00)
[2022-08-21] MEDS: INSULIN ASPART PER UNIT CHARGE SC SCH (21:05)
[2022-08-21] MEDS ORDERED: DICLOFENAC SOD 1% GEL 100 GM TUBE EXT PRN (22:11)
[2022-08-21] MEDS ORDERED: NITROGLYCERIN SL 0.4 MG/TAB TAB SL PRN (22:11)
[2022-08-21] MEDS ORDERED: ALBUTEROL HFA 8 GM INHALER INH PRN (22:11)
[2022-08-21] MEDS ORDERED: ONDANSETRON INJ 2 MG/ML 2 ML VIAL IV PRN (22:11)
[2022-08-21] MEDS ORDERED: PHARMACY GLYCEMIC MGMT CONSULT PRN (22:11)
[2022-08-21] MEDS: SODIUM CHLORIDE 0.9% 1000ML 1,000 ML IV SCH (23:25)
[2022-08-21] MEDS: MAGNESIUM HYDROXIDE SUSP 30 ML UDC PO PRN (23:45)
[2022-08-21] MEDS: FAMOTIDINE 20 MG TAB PO SCH (23:46)
[2022-08-21] MEDS: busPIRone 5 MG TAB PO SCH (23:47)
[2022-08-21] MEDS: GABAPENTIN 100 MG CAP PO SCH (23:47)
[2022-08-22] MEDS ORDERED: INSULIN ASPART PER UNIT CHARGE SC ONE (02:00)
[2022-08-22] MEDS: SODIUM CHLORIDE 0.9% 1000ML 1,000 ML IV SCH ×2 (07:37→14:24)
[2022-08-22] MEDS: ACETAMINOPHEN 325 MG TAB PO PRN (07:56)
[2022-08-22 08:56] LABS: Basophils # (auto) 0.05 K/uL (0-0.2); Eosinophils # (auto) 0.13 K/uL (0-0.50); Eosinophils % (auto) 2.7 %; Hematocrit (blood only) 37.2 % (34.1-44.9); Hemoglobin 12.7 g/dl (12.0-16.0); Immature Granulocytes # (auto) 0.01 K/uL (0.00-0.02); Immature Granulocytes % (auto) 0.2 %; Lymphocytes # (auto) 2.35 K/uL (1.2-3.4); Lymphocytes % (auto) 48.1 %; Mean Corpuscular Hemoglobin 28.9 pg (25.0-34.0); Mean Corpuscular Hgb Conc 34.1 g/dL (32.0-36.0); Mean Corpuscular Volume 84.7 fL (80.0-100.0); Mean Platelet Volume 10.3 fL (9.4-12.3); Monocytes % (auto) 6.1 %; Neutrophils # (auto) 2.05 K/uL (1.4-6.5); Neutrophils % (auto) 41.9 %; Platelet Count 196 K/uL (130-400); RDW Coefficient of Variation 13.4 % (11.5-14.5); RDW Standard Deviation 41.8 fL (36.4-46.3); Red Blood Count 4.39 M/uL (3.93-5.22); White Blood Count 4.89 K/ul (4.8-10.8)
[2022-08-22] MEDS: INSULIN ASPART PER UNIT CHARGE SC SCH ×4 (09:17→21:05)
[2022-08-22] MEDS: busPIRone 5 MG TAB PO SCH ×3 (09:18→21:06)
[2022-08-22] MEDS: ENOXAPARIN INJ 40 MG/0.4 ML SYR SQ SCH (09:18)
[2022-08-22] MEDS: EZETIMIBE 10 MG TABLET PO SCH (09:19)
[2022-08-22] MEDS: ROSUVASTATIN CALCIUM 20 MG TAB PO SCH (09:19)
[2022-08-22] MEDS: ISOSORBIDE MONO EXTENDED REL 60 MG TABCR PO SCH (09:19)
[2022-08-22] MEDS: METOPROLOL SUCC 50MG EXT REL TAB PO SCH (09:20)
[2022-08-22] MEDS: lisinopril 10 MG TAB PO SCH (09:20)
[2022-08-22] MEDS: DULoxetine HCL 30 MG CAP PO SCH (09:20)
[2022-08-22] MEDS: ASPIRIN 81 MG ECTAB PO SCH (09:20)
[2022-08-22] MEDS: FLUTICASONE FUROATE 100MCG 14 PUFFS/INHALER INH SCH (09:21)
[2022-08-22] MEDS: UMECLIDINIUM/VILANTEROL 62.5/25MCG 7 PUFFS/INHALER INH SCH (09:23)
[2022-08-22] MEDS: POLYETHYLENE (MIRALAX) 17 GM PACK PO SCH ×2 (09:25→21:06)
[2022-08-22] MEDS: FAMOTIDINE 20 MG TAB PO SCH ×2 (09:26→21:06)
[2022-08-22 10:19] LABS: Albumin Globulin Ratio 1.2 (0.9-2); Albumin Level 3.1 gm/dl (3.4-5.0); BUN Creatinine Ratio 19.1 (10-20); Bilirubin,Total 0.4 mg/dl (0.2-1.0); Calcium 8.5 mg/dl (8.5-10.1); Creatinine Clr Calc Pharmacy 70.3 ml/min; Est GFR (African American) 99.2 ml/min; Est GFR (Non-African American) 85.6 ml/min; Globulin 2.6 gm/dl (2.5-4.0); Potassium 3.7 mmol/L (3.5-5.1); Total Protein 5.7 gm/dl (6.0-8.3)
[2022-08-22 10:35] LABS: Estimated Average Glucose 315 mg/dl; Hemoglobin A1C 12.6 % (4.5-5.6)
--- NOTE | 2022-08-22 14:54 | Pharmacy Report ---
Pharmacy Glycemic Short Note 2 - Date of Service August 22, 2022 - Glycemic Short BSG Results (Last 24 hours): 08/21/22 08/21/22 08/21/22 14:27 19:45 20:56 Glucose 414 H* POC Glucose 295 H 187 H 08/22/22 08/22/22 08/22/22 02:41 07:41 08:22 Glucose 107 H POC Glucose 209 H 126 H 08/22/22 11:35 Glucose POC Glucose 150 H OUTPATIENT ANTIDIABETIC REGIMEN: * Novolog 6 units QDB + Novolog 10 units QDD * Tresiba 15 units in the morning and 48 units in the evening * metformin 1 gm PO BID * HbA1C = 12.6% (08/22/22) ASSESSMENT: * Ms Michael is a 77 y/o F with a PMH of T2DM who presents with chest pain and dizziness. * Patient's BSGs were elevated only admission - 414 mg/dL (for which she received 6 units of IV insulin ) then 295-187 mg/dL. Patient also received 22 units of Lantus in the evening. * Overnight BSG was 209 mg/dL for which patient received 3 units of Novolog. * Fasting this AM was 126 mg/dL and lunch 150 mg/dL. * Per previous admission, patient's Lantus was continuously decreased from 58 units/day to 28 units per day. Will start with Lantus 25 units tonight (obtained from Lantus 22 units given + Novolog 3 units) * Novolog weight-based stress of 3 which correlates with previous admission. PLAN FOR INPATIENT GLYCEMIC CONTROL: * Hold outpatient oral diabetes medications * Basal insulin * Lantus 25 units SQ HS * Bolus insulin * NovoLog per scale ACHS or Q6hrs while NPO * Goal Range: Low 110 mg/dL - High 140 mg/dL * Correction Factor: 20 mg/dL/unit * Nutritional / Prandial insulin per carb ratio of 1 unit per 6 grams CHO consumed
[2022-08-22] MEDS: MAGNESIUM HYDROXIDE SUSP 30 ML UDC PO PRN (17:21)
--- NOTE | 2022-08-22 18:14 | XCELERA ---
[id number] \\[id number]
[2022-08-22] MEDS ORDERED: LANTUS PER UNIT CHARGE SQ SCH (21:00)
[2022-08-22] MEDS: GABAPENTIN 100 MG CAP PO SCH (21:06)
--- NOTE | 2022-08-22 22:41 | Hospitalist Progress Note ---
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 Chest pain/Dizziness: -Chest pain x1-2 weeks, history of NSTEMI 11/2021 and 11/2005 s/p 3 JOHNATHAN. -EKG normal sinus w/o acute ischemic changes. -CXR negative for acute cardiopulmonary findings. -Troponin 8.2 on admission. -Will order repeat echocardiogram. Last echo w/ EF 55-60%, very mild hypokinesis mid to distal lateral wall, improved from prior study. -Given negative trop and EKG may be more related to emesis induced MSK soreness/pain however will get repeat echo as above. -Dizziness may be secondary to dehydration vs orthostatics vs BPPV. Ordered orth ostatics. Less likely cardiac in nature. -Zofran 4mg IV q6h for nausea. -Continue home metoprolol, rosuvastatin, baby aspirin, imdur, lisinopril, PRN nitroglycerin. 08/22-episode of chest pain likely noncardiac improved spontaneously with no acute intervention troponin negative on prior occasions Hyperglycemia: -BSG on admission 414. Patient's glucose has been chronically elevated above 300 past few months. -On 43 units of SQ long acting at home. Novolog 03/23/13u + sliding scale w/ factor 25 for BG >150. -Received 6U IV insulin in ED. Repeat BSG 295. -Of note patient mentioned she has gone hypoglycemic in past. Hypoglycemia protocol in place. -Started on Lantus 22U BID, correction factor 20, carb ratio 6g/U -Monitor blood sugar trend and titrate as tolerated. Abnormal LFTs: -AST 54, ALT 107, Alk Phos 142. T Bili 0.6 -History of cholecystectomy. Mild diffuse abdominal soreness on exam however more likely due to emesis related MSK pain. -Liver on CT A&P normal in size, contour, no intrahepatic biliary ductal dilatation. -May be related to dehydration related demand ischemia. -Trend liver enzymes w/ AM CMP. Change in bowel habits: -Diarrhea a few weeks back, now with constipation. -CT A&P w/ rectal wall thickening w/ perirectal presacral soft tissue inflammation. Rectosigmoid fecal retention and moderate constipation. -Added bowel regimen, miralax BID, mag citrate. CAD: -Continue home baby aspirin, rosuvastatin, zetia. Reactive airway disease: -Continue home albuterol, Trelegy Ellipta. Diabetic neuropathy: -Continue home Gabapentin 100mg qHS. GERD: -Continue home famotidine 20mg BID. CKD: -GFR 60, creatinine 0.92 on admission. -Continue to trend. Hypertension: -Continue home metoprolol and lisinopril as above. HLD: -Continue home rosuvastatin and zetia as above. Anxiety/Depression: -Continue home buspirone and duloxetine. . (2) Hyperglycemia: (3) Chest pain: (4) Abnormal LFTs: (5) Change in bowel habits: (6) Diabetic nephropathy: (7) CAD (coronary artery disease): (8) CKD (chronic kidney disease), stage III: (9) Reactive airway disease: (10) Anxiety: (11) GERD (gastroesophageal reflux disease): (12) Uncontrolled type 2 diabetes mellitus with neurologic complication, with long-term current use of insulin: (13) Constipation: (14) HTN (hypertension): (15) S/P coronary artery stent placement: (16) Dyslipidemia: (17) Depression: (18) IBS (irritable bowel syndrome): Admission and Anticipated Discharge Date Admission Date: August 21, 2022 Supervising Physician Co-Signing Physician Notes Subjective Patient with PMHx of HTN, CAD sp PCI, IBS, , and DM who presentws with chest pain and hyperglycemia in the setting of poor PO intake and diarrhea. Suspect diarrhea was overflow, secondary constipation and placed on +bowel regimen. Pt with chest pain reproducible on palpation and normal high sensitivity troponin. Trend, low suspicion for ACS. Intermittent chest pain reported but improved Physical Exam Physical Exam: Constitutional: no acute distress, pleasant. Vitals as above. HEENT: No scleral injection or discharge. . Clear oropharynx without exudate. Neck: Supple without lymphadenopathy or thyromegaly. Trachea midline. Lungs: Bilaterally diminished bases with scattered rhonchi. Cardiac: Normal rhythm. No murmurs.No extremity edema. Abdomen:Bowel sounds present. Soft and nondistended. . No guarding or rebound tenderness. MSK: No cyanosis or clubbing. Skin: No rashes, warm, dry. Neurologic: Grossly intact cranial nerves. Results & Data Results & Data ([facility]) Vital Signs (Past 12 Hours) Vital Signs Temp Pulse Pulse Resp BP Pulse Ox O2 Del Method 08/22/22 22:01 Room Air 08/22/22 18:24 36.7 C 52 L 19 118/62 97 Room Air 08/22/22 14:20 50 L 08/22/22 14:36 36.4 C L 54 L 18 108/69 96 Room Air 08/22/22 16:06 36.6 C 53 L 20 118/73 94 Room Air 08/22/22 12:02 37 C 62 19 151/82 H 99 Room Air 08/22/22 10:59 Room Air PG Care Time/CCT Total # of Minutes Spent Total Time Spent with Patient: Total time spent is greater than 50% in coordination of care (as documented) at patient's floor/unit and/or counseling patient: Coding Level of Care Code 90542 SUB INP/OBS CARE 2/35MIN Diagnoses Nausea & vomiting R11.2 Hyperglycemia R73.9 Chest pain R07.9 Chest pain type: unspecified Abnormal LFTs R79.89 Change in bowel habits R19.4 Diabetic nephropathy E11.21 CAD (coronary artery disease) I25.10 Coronary Disease-Associated Artery/Lesion type: [place] artery [place] vs. transplanted heart: [place] heart Associated angina: angina presence unspecified CKD (chronic kidney disease), stage III N18.30 Reactive airway disease J45.909 Anxiety F41.9 GERD (gastroesophageal reflux disease) K21.9 Esophagitis presence: without esophagitis Uncontrolled type 2 diabetes mellitus with neurologic complication, with long- term current use of insulin E11.49; E11.65; Z79.4 Constipation K59.00 HTN (hypertension) I10 S/P coronary artery stent placement Z95.5 Dyslipidemia E78.5 Depression F32.9 IBS (irritable bowel syndrome) K58.9 (1) Chest pain Chest pain type: unspecified Qualified Code(s): R07.9 - Chest pain, unspecified (2) CAD (coronary artery disease) Coronary Disease-Associated Artery/Lesion type: [place] artery [place] vs. transplanted heart: [place] heart Associated angina: angina presence unspecified Qualified Code(s): I25.10 - Atherosclerotic heart disease of [place] coronary artery without angina pectoris (3) GERD (gastroesophageal reflux disease) Esophagitis presence: without esophagitis Qualified Code(s): K21.9 - Gastro- esophageal reflux disease without esophagitis
[2022-08-23 06:12] LABS: Basophils # (auto) 0.06 K/uL (0-0.2); Basophils % (auto) 1.1 %; Eosinophils # (auto) 0.15 K/uL (0-0.50); Eosinophils % (auto) 2.7 %; Hematocrit (blood only) 33.6 % (34.1-44.9); Hemoglobin 11.4 g/dl (12.0-16.0); Immature Granulocytes # (auto) 0.02 K/uL (0.00-0.02); Immature Granulocytes % (auto) 0.4 %; Lymphocytes # (auto) 1.95 K/uL (1.2-3.4); Lymphocytes % (auto) 35.3 %; Mean Corpuscular Hemoglobin 29.1 pg (25.0-34.0); Mean Corpuscular Hgb Conc 33.9 g/dL (32.0-36.0); Mean Corpuscular Volume 85.7 fL (80.0-100.0); Mean Platelet Volume 10.8 fL (9.4-12.3); Monocytes # (auto) 0.36 K/uL (0.24-0.82); Monocytes % (auto) 6.5 %; Neutrophils # (auto) 2.98 K/uL (1.4-6.5); Platelet Count 203 K/uL (130-400); RDW Coefficient of Variation 13.5 % (11.5-14.5); RDW Standard Deviation 42.1 fL (36.4-46.3); Red Blood Count 3.92 M/uL (3.93-5.22); White Blood Count 5.52 K/ul (4.8-10.8)
[2022-08-23 06:34] LABS: Calcium 8.1 mg/dl (8.5-10.1); Creatinine Clr Calc Pharmacy 64.1 ml/min; Est GFR (African American) 90.4 ml/min
[2022-08-23] MEDS: INSULIN ASPART PER UNIT CHARGE SC SCH ×4 (08:38→21:03)
[2022-08-23] MEDS: EZETIMIBE 10 MG TABLET PO SCH (09:38)
[2022-08-23] MEDS: lisinopril 10 MG TAB PO SCH (09:38)
[2022-08-23] MEDS: busPIRone 5 MG TAB PO SCH ×3 (09:38→21:02)
[2022-08-23] MEDS: FAMOTIDINE 20 MG TAB PO SCH ×2 (09:38→21:03)
[2022-08-23] MEDS: ISOSORBIDE MONO EXTENDED REL 60 MG TABCR PO SCH (09:39)
[2022-08-23] MEDS: ROSUVASTATIN CALCIUM 20 MG TAB PO SCH (09:39)
[2022-08-23] MEDS: ASPIRIN 81 MG ECTAB PO SCH (09:39)
[2022-08-23] MEDS: FLUTICASONE FUROATE 100MCG 14 PUFFS/INHALER INH SCH (09:42)
[2022-08-23] MEDS: ENOXAPARIN INJ 40 MG/0.4 ML SYR SQ SCH (09:42)
[2022-08-23] MEDS: UMECLIDINIUM/VILANTEROL 62.5/25MCG 7 PUFFS/INHALER INH SCH (09:43)
[2022-08-23] MEDS: DULoxetine HCL 30 MG CAP PO SCH (09:43)
[2022-08-23] MEDS: METOPROLOL SUCC 50MG EXT REL TAB PO SCH (09:58)
[2022-08-23] MEDS: POLYETHYLENE (MIRALAX) 17 GM PACK PO SCH ×2 (09:58→21:06)
[2022-08-23] MEDS: ACETAMINOPHEN 325 MG TAB PO PRN (09:59)
--- NOTE | 2022-08-23 18:47 | Hospitalist Progress Note ---
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 Chest pain/Dizziness: -Chest pain x1-2 weeks, history of NSTEMI 11/2021 and 11/2005 s/p 3 JOHNATHAN. -EKG normal sinus w/o acute ischemic changes. -CXR negative for acute cardiopulmonary findings. -Troponin 8.2 on admission. -Will order repeat echocardiogram. Last echo w/ EF 55-60%, very mild hypokinesis mid to distal lateral wall, improved from prior study. -Given negative trop and EKG may be more related to emesis induced MSK soreness/pain however will get repeat echo as above. -Dizziness may be secondary to dehydration vs orthostatics vs BPPV. Ordered ort hostatics. Less likely cardiac in nature. -Zofran 4mg IV q6h for nausea. -Continue home metoprolol, rosuvastatin, baby aspirin, imdur, lisinopril, PRN nitroglycerin. 08/22-episode of chest pain likely noncardiac improved spontaneously with no acute intervention troponin negative on prior occasions-check troponin level 08/23-patient continued to have repeated episodes of chest pain yesterday but troponin levels have been negative No further episode of chest pain today and appears that the chest pain episodes have been noncardiac in origin If patient continues to have no further chest pain can be DC'd tomorrow Hyperglycemia: -BSG on admission 414. Patient's glucose has been chronically elevated above 300 past few months. -On 43 units of SQ long acting at home. Novolog 03/23/13u + sliding scale w/ factor 25 for BG >150. -Received 6U IV insulin in ED. Repeat BSG 295. -Of note patient mentioned she has gone hypoglycemic in past. Hypoglycemia protocol in place. -Started on Lantus 22U BID, correction factor 20, carb ratio 6g/U -Monitor blood sugar trend and titrate as tolerated. Change in bowel habits: -Diarrhea a few weeks back, now with constipation. -CT A&P w/ rectal wall thickening w/ perirectal presacral soft tissue inflammation. Rectosigmoid fecal retention and moderate constipation. -Added bowel regimen, miralax BID, mag citrate. If patient's constipation is improved and no further chest pain with the next 24 hours patient can be DC'd tomorrow CAD: -Continue home baby aspirin, rosuvastatin, zetia. Reactive airway disease: -Continue home albuterol, Trelegy Ellipta. Diabetic neuropathy: -Continue home Gabapentin 100mg qHS. GERD: -Continue home famotidine 20mg BID. CKD: -GFR 60, creatinine 0.92 on admission. -Continue to trend. Hypertension: -Continue home metoprolol and lisinopril as above. HLD: -Continue home rosuvastatin and zetia as above. Anxiety/Depression: -Continue home buspirone and duloxetine. . (2) Hyperglycemia: (3) Chest pain: (4) Abnormal LFTs: (5) Change in bowel habits: (6) Diabetic nephropathy: (7) CAD (coronary artery disease): (8) CKD (chronic kidney disease), stage III: (9) Reactive airway disease: (10) Anxiety: (11) GERD (gastroesophageal reflux disease): (12) Uncontrolled type 2 diabetes mellitus with neurologic complication, with long-term current use of insulin: (13) Constipation: (14) HTN (hypertension): (15) S/P coronary artery stent placement: (16) Dyslipidemia: (17) Depression: (18) IBS (irritable bowel syndrome): Admission and Anticipated Discharge Date Admission Date: August 21, 2022 Subjective Patient with PMHx of HTN, CAD sp PCI, IBS, , and DM who presents with chest pain and hyperglycemia in the setting of poor PO intake and diarrhea. Patient reports improvement in chest pain today and reports some GERD type symptoms Patient continues to have intermittent constipation but had a bowel movement this a.m. which patient reports was the first time she had a normal bowel movement recently Suspect diarrhea was due to overflow, secondary constipation and patient placed on +bowel regimen. Pt with chest pain reproducible on palpation and normal high sensitivity troponin. Trend, low suspicion for ACS. Intermittent chest pain reported but improved Review of Systems Review of Systems: Constitutional-no fever or chills ENT-no blurred vision, no double vision, no epistaxis, no sore throat Respiratory- no shortness of breath noted with exertion. No wheezing Cardiac-no palpitations, GI-no nausea, vomiting, positive constipation -no urinary retention, no urinary incontinence, no dysuria, Physical Exam Physical Exam: Constitutional: no acute distress, pleasant. Vitals as above. HEENT: No scleral injection or discharge. . Clear oropharynx without exudate. Neck: Supple without lymphadenopathy or thyromegaly. Trachea midline. Lungs: Bilaterally diminished bases with scattered rhonchi. Cardiac: Normal rhythm. No murmurs.No extremity edema. Abdomen:Bowel sounds present. Soft and nondistended. . No guarding or rebound tenderness. MSK: No cyanosis or clubbing. Skin: No rashes, warm, dry. Neurologic: Grossly intact cranial nerves. Results & Data Results & Data ([facility]) Vital Signs (Past 12 Hours) Vital Signs Temp Pulse Pulse Resp BP Pulse Ox O2 Del Method 08/23/22 14:08 54 L 08/23/22 14:45 36.5 C 61 16 134/77 96 Room Air 08/23/22 07:00 48 L 08/23/22 11:25 36.6 C 50 L 20 106/66 96 Room Air 08/23/22 07:52 36.6 C 58 L 20 123/78 95 Room Air Laboratory Results Short CBC 08/23/22 Range/Units 05:30 WBC 5.52 (4.8-10.8) K/ul Hgb 11.4 L (12.0-16.0) g/dl Hct 33.6 L (34.1-44.9) % Plt Count 203 (130-400) K/uL BMP 08/23/22 05:30 Sodium 140 Potassium 4.0 Chloride 109 H Carbon Dioxide 28 BUN 9 Creatinine 0.75 Glucose 90 Calcium 8.1 L PG Care Time/CCT Total # of Minutes Spent Total Time Spent with Patient: Total time spent is greater than 50% in coordination of care (as documented) at patient's floor/unit and/or counseling patient: Coding Level of Care Code 94073 SUB INP/OBS CARE 2/35MIN Diagnoses Nausea & vomiting R11.2 Hyperglycemia R73.9 Chest pain R07.9 Chest pain type: unspecified Abnormal LFTs R79.89 Change in bowel habits R19.4 Diabetic nephropathy E11.21 CAD (coronary artery disease) I25.10 Coronary Disease-Associated Artery/Lesion type: [place] artery [place] vs. 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 transplanted heart: [place] heart Associated angina: angina presence unspecified Qualified Code(s): I25.10 - Atherosclerotic heart disease of [place] coronary artery without angina pectoris (3) GERD (gastroesophageal reflux disease) Esophagitis presence: without esophagitis Qualified Code(s): K21.9 - Gastro- esophageal reflux disease without esophagitis
[2022-08-23] MEDS: GABAPENTIN 100 MG CAP PO SCH (21:03)
[2022-08-23] MEDS: LANTUS PER UNIT CHARGE SQ SCH (21:03)
--- NOTE | 2022-08-24 06:02 | Electrocardiogram Report ---
Test Reason : Blood Pressure : / mmHG Vent. Rate : 054 BPM Atrial Rate : 054 BPM P-R Int : 154 ms QRS Dur : 070 ms QT Int : 482 ms P-R-T Axes : 058 027 048 degrees QTc Int : 457 ms Sinus bradycardia When compared with ECG of 21-AUG-2022 14:17, Vent. rate has decreased BY 31 BPM Confirmed by Deon Gonzalez ([id number]) on 08/24/2022 6:02:28 AM Referred By: REFERRED SELF Confirmed By:Deon Gonzalez
[2022-08-24 08:26] LABS: Basophils # (auto) 0.04 K/uL (0-0.2); Basophils % (auto) 0.8 %; Eosinophils # (auto) 0.12 K/uL (0-0.50); Eosinophils % (auto) 2.4 %; Hemoglobin 12.1 g/dl (12.0-16.0); Immature Granulocytes # (auto) 0.01 K/uL (0.00-0.02); Immature Granulocytes % (auto) 0.2 %; Lymphocytes # (auto) 2.09 K/uL (1.2-3.4); Lymphocytes % (auto) 42.4 %; Mean Corpuscular Hemoglobin 28.6 pg (25.0-34.0); Mean Corpuscular Hgb Conc 33.6 g/dL (32.0-36.0); Mean Corpuscular Volume 85.1 fL (80.0-100.0); Mean Platelet Volume 10.5 fL (9.4-12.3); Monocytes # (auto) 0.31 K/uL (0.24-0.82); Monocytes % (auto) 6.3 %; Neutrophils # (auto) 2.36 K/uL (1.4-6.5); Neutrophils % (auto) 47.9 %; Platelet Count 188 K/uL (130-400); RDW Coefficient of Variation 13.2 % (11.5-14.5); RDW Standard Deviation 41.1 fL (36.4-46.3); Red Blood Count 4.23 M/uL (3.93-5.22); White Blood Count 4.93 K/ul (4.8-10.8)
[2022-08-24 08:49] LABS: BUN Creatinine Ratio 13.3 (10-20); Calcium 8.7 mg/dl (8.5-10.1); Creatinine Clr Calc Pharmacy 57.9 ml/min; Est GFR (African American) 79.9 ml/min; Potassium 4.2 mmol/L (3.5-5.1)
[2022-08-24] MEDS: POLYETHYLENE (MIRALAX) 17 GM PACK PO SCH ×2 (09:50→20:24)
[2022-08-24] MEDS: MAGNESIUM HYDROXIDE SUSP 30 ML UDC PO PRN (09:50)
[2022-08-24] MEDS: INSULIN ASPART PER UNIT CHARGE SC SCH ×4 (09:52→20:24)
[2022-08-24] MEDS: METOPROLOL SUCC 50MG EXT REL TAB PO SCH (09:53)
[2022-08-24] MEDS: FAMOTIDINE 20 MG TAB PO SCH ×2 (09:53→20:23)
[2022-08-24] MEDS: EZETIMIBE 10 MG TABLET PO SCH (09:54)
[2022-08-24] MEDS: ASPIRIN 81 MG ECTAB PO SCH (09:54)
[2022-08-24] MEDS: lisinopril 10 MG TAB PO SCH (09:54)
[2022-08-24] MEDS: DULoxetine HCL 30 MG CAP PO SCH (09:54)
[2022-08-24] MEDS: ROSUVASTATIN CALCIUM 20 MG TAB PO SCH (09:54)
[2022-08-24] MEDS: busPIRone 5 MG TAB PO SCH ×3 (09:55→20:23)
[2022-08-24] MEDS: UMECLIDINIUM/VILANTEROL 62.5/25MCG 7 PUFFS/INHALER INH SCH (09:55)
[2022-08-24] MEDS: FLUTICASONE FUROATE 100MCG 14 PUFFS/INHALER INH SCH (09:56)
[2022-08-24] MEDS: ISOSORBIDE MONO EXTENDED REL 60 MG TABCR PO SCH (09:56)
[2022-08-24] MEDS: ENOXAPARIN INJ 40 MG/0.4 ML SYR SQ SCH (09:56)
--- NOTE | 2022-08-24 12:58 | Hospitalist Progress Note ---
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 -Chest pain x1-2 weeks, history of NSTEMI 11/2021 and 11/2005 s/p 3 JOHNATHAN. -Most likely musculoskeletal -EKG normal sinus w/o acute ischemic changes. -CXR negative for acute cardiopulmonary findings. -Troponin 8.2 on admission. -Last echo w/ EF 55-60%, -Chest pain is now resolved (2) Change in bowel habits: Plan: Patient has been having constipation, CT shows evidence of large stool and rectal wall thickening But also has been having suspected overflow diarrhea Will obtain KUB Continue bowel regimen (3) Uncontrolled type 2 diabetes mellitus with neurologic complication, with long-term current use of insulin: Plan: -BSG on admission 414. Patient's glucose has been chronically elevated above 300 past few months. -On 43 units of SQ long acting at home. Novolog 8/8/13u + sliding scale w/ factor 25 for BG >150. -Received 6U IV insulin in ED. Repeat BSG 295. -Of note patient mentioned she has gone hypoglycemic in past. Hypoglycemia protocol in place. -Started on Lantus 22U BID, correction factor 20, carb ratio 6g/U -Monitor blood sugar trend and titrate as tolerated. (4) Reactive airway disease: Plan: -Continue home albuterol, Trelegy Ellipta. (5) Anxiety: Plan: -Continue home buspirone and duloxetine. (6) HTN (hypertension): Plan: -Continue home metoprolol and lisinopril as above. (7) CAD (coronary artery disease): (8) CKD (chronic kidney disease), stage III: (9) GERD (gastroesophageal reflux disease): (10) Hyperglycemia: (11) Abnormal LFTs: (12) Diabetic nephropathy: (13) Nausea & vomiting: (14) Constipation: (15) S/P coronary artery stent placement: (16) Dyslipidemia: (17) Depression: (18) IBS (irritable bowel syndrome): Plan hopefully d/c in the next 24 hrs Admission and Anticipated Discharge Date Admission Date: August 21, 2022 Subjective patient seen and examined, says her chest pain has resolved, but her concern is constipation, although RN says patient has a BM, with some diarrhea Review of Systems Review of Systems: All systems reviewed are negative, apart from the ones contained in the history. Physical Exam Physical Exam: The patient is awake, alert and oriented 3, well developed and well nourished, normocephalic and atraumatic, lying in bed and in no acute distress. HEENT--PERRL, EOMI, mucous membranes and oropharynx mildly dry Neck--supple. No JVD. No bruits. Thyroid normal, trachea midline, no adenopathy. Heart--normal S1 and S2. No murmurs, rubs or gallops. Lungs--clear bilaterally, no respiratory distress, no accessory muscle use. Abdomen--normal bowel sounds and soft. Mild epigastric and left sided abdominal pain Extremities--no cyanosis or clubbing. No edema. Dermatologic--normal skin turgor, normal color, no abnormal lymph nodes, no rash. Neurologic--cranial nerves II through XII grossly intact. Rheumatologic--normal range of motion. Psychiatric--normal affect. Results & Data Results & Data ([facility]) Vital Signs (Past 12 Hours) Vital Signs Temp Pulse Resp BP Pulse Ox O2 Del Method 08/24/22 11:11 98.1 F 70 18 120/72 95 Room Air 08/24/22 07:50 97.9 F 80 18 159/78 H 96 Room Air 08/24/22 07:21 Room Air 08/24/22 02:48 98.4 F 61 18 124/74 96 Room Air PG Care Time/CCT Total # of Minutes Spent Total Time Spent with Patient: Total time spent is greater than 50% in coordination of care (as documented) at patient's floor/unit and/or counseling patient: Coding Level of Care Code 37783 SUB INP/OBS CARE 2/35MIN Diagnoses Chest pain R07.9 Chest pain type: unspecified Change in bowel habits R19.4 Uncontrolled type 2 diabetes mellitus with neurologic complication, with long- term current use of insulin E11.49; E11.65; Z79.4 Reactive airway disease J45.909 Anxiety F41.9 HTN (hypertension) I10 CAD (coronary artery disease) I25.10 Coronary Disease-Associated Artery/Lesion type: [place] artery [place] vs. transplanted heart: [place] heart Associated angina: angina presence unspecified CKD (chronic kidney disease), stage III N18.30 GERD (gastroesophageal reflux disease) K21.9 Esophagitis presence: without esophagitis Hyperglycemia R73.9 Abnormal LFTs R79.89 Diabetic nephropathy E11.21 Nausea & vomiting R11.2 Constipation K59.00 S/P coronary artery stent placement Z95.5 Dyslipidemia E78.5 Depression F32.9 IBS (irritable bowel syndrome) K58.9 Time Spent (min) 35 (1) Chest pain Chest pain type: unspecified Qualified Code(s): R07.9 - Chest pain, unspecified (2) CAD (coronary artery disease) Coronary Disease-Associated Artery/Lesion type: [place] artery [place] vs. transplanted heart: [place] heart Associated angina: angina presence unspecified Qualified Code(s): I25.10 - Atherosclerotic heart disease of [place] coronary artery without angina pectoris (3) GERD (gastroesophageal reflux disease) Esophagitis presence: without esophagitis Qualified Code(s): K21.9 - Gastro- esophageal reflux disease without esophagitis
--- NOTE | 2022-08-24 13:42 | XRay Report ---
KUB HISTORY: constipation COMPARISON: Abdomen and pelvis CT 08/21/2022. FINDINGS: Small to moderate amount well-formed stool within the distal colon and rectum appear to hav e improved in the interval. Stable prominent gas-filled loops of large bowel persist. No dilated loop s of bowel to suggest an obstruction. No renal calculi. No ureteral calculi. Calcifications in the d eep pelvis likely represent phleboliths. No pneumoperitoneum or pneumatosis. IMPRESSION: Interval improvement in the small to moderate amount of well-formed stool within the distal colon and rectum. ACT 112: Negative or not required by law. Electronically signed by: Vijay Vega M.D. 08/24/2022 1:41 PM
[2022-08-24] MEDS ORDERED: bisacodyL 5 MG TABEC PO ONE (13:52)
--- NOTE | 2022-08-24 14:36 | Pharmacy Report ---
Pharmacy Glycemic Short Note 2 - Date of Service August 24, 2022 - Glycemic Short BSG Results (Last 24 hours): 08/23/22 08/23/22 08/24/22 16:38 20:36 07:27 Glucose POC Glucose 100 H 175 H 94 08/24/22 08/24/22 08:01 11:28 Glucose 78 POC Glucose 202 H OUTPATIENT ANTIDIABETIC REGIMEN: * Novolog TID with meals, plus sliding scale * 6 units with breakfast * 8 units with lunch * 10 units with dinner * Tresiba 15 units SQ qAM, and 48 units SQ qPM * Metformin 1 gm PO BID * HbA1C = 12.6% (08/22/22) ASSESSMENT: 08/24/22: * Fasting BSG was below goal this morning. Lantus dose reduced for this even ing. * Pre-lunch BSG was elevated, so Novolog parameters were tightened with lunch to provide additional carb coverage. * Will continue to follow and adjust as indicated. 08/22 * Ms Michael is a 77 y/o F with a PMH of T2DM who presents with chest pain and dizziness. * Patient's BSGs were elevated only admission - 414 mg/dL (for which she received 6 units of IV insulin ) then 295-187 mg/dL. Patient also received 22 units of Lantus in the evening. * Overnight BSG was 209 mg/dL for which patient received 3 units of Novolog. * Fasting this AM was 126 mg/dL and lunch 150 mg/dL. * Per previous admission, patient's Lantus was continuously decreased from 58 units/day to 28 units per day. Will start with Lantus 25 units tonight (obtained from Lantus 22 units given + Novolog 3 units) * Novolog weight-based stress of 3 which correlates with previous admission. PLAN FOR INPATIENT GLYCEMIC CONTROL: * Hold outpatient oral diabetes medications * Basal insulin * Lantus 12-15 units SQ qHS, depending on BSG (see EMR for details) * Bolus insulin * NovoLog per scale ACHS or Q6hrs while NPO * Goal Range: Low 110 mg/dL - High 140 mg/dL * Correction Factor: 25 mg/dL/unit * Nutritional / Prandial insulin per carb ratio of 1 unit per 7 grams CHO consumed
[2022-08-24] MEDS: GABAPENTIN 100 MG CAP PO SCH (20:24)
[2022-08-24] MEDS: LANTUS PER UNIT CHARGE SQ SCH (20:24)
[2022-08-25 07:27] LABS: Hematocrit (blood only) 35.2 % (34.1-44.9); Hemoglobin 12.3 g/dl (12.0-16.0); Mean Corpuscular Hemoglobin 29.1 pg (25.0-34.0); Mean Corpuscular Hgb Conc 34.9 g/dL (32.0-36.0); Mean Corpuscular Volume 83.2 fL (80.0-100.0); Mean Platelet Volume 10.8 fL (9.4-12.3); Platelet Count 180 K/uL (130-400); RDW Coefficient of Variation 13.5 % (11.5-14.5); RDW Standard Deviation 41.1 fL (36.4-46.3); Red Blood Count 4.23 M/uL (3.93-5.22); White Blood Count 5.14 K/ul (4.8-10.8)
[2022-08-25 07:59] LABS: BUN Creatinine Ratio 12.5 (10-20); Calcium 8.8 mg/dl (8.5-10.1); Creatinine Clr Calc Pharmacy 53.1 ml/min; Est GFR (African American) 74.5 ml/min; Est GFR (Non-African American) 64.3 ml/min; Potassium 3.9 mmol/L (3.5-5.1)
[2022-08-25] MEDS: INSULIN ASPART PER UNIT CHARGE SC SCH ×4 (09:01→20:28)
[2022-08-25] MEDS: FAMOTIDINE 20 MG TAB PO SCH ×2 (09:02→20:30)
[2022-08-25] MEDS: ROSUVASTATIN CALCIUM 20 MG TAB PO SCH (09:02)
[2022-08-25] MEDS: busPIRone 5 MG TAB PO SCH ×3 (09:02→20:29)
[2022-08-25] MEDS: ASPIRIN 81 MG ECTAB PO SCH (09:02)
[2022-08-25] MEDS: METOPROLOL SUCC 50MG EXT REL TAB PO SCH (09:03)
[2022-08-25] MEDS: DULoxetine HCL 30 MG CAP PO SCH (09:03)
[2022-08-25] MEDS: lisinopril 10 MG TAB PO SCH (09:03)
[2022-08-25] MEDS: ISOSORBIDE MONO EXTENDED REL 60 MG TABCR PO SCH (09:03)
[2022-08-25] MEDS: EZETIMIBE 10 MG TABLET PO SCH (09:03)
[2022-08-25] MEDS: UMECLIDINIUM/VILANTEROL 62.5/25MCG 7 PUFFS/INHALER INH SCH (09:04)
[2022-08-25] MEDS: ENOXAPARIN INJ 40 MG/0.4 ML SYR SQ SCH (09:04)
[2022-08-25] MEDS: FLUTICASONE FUROATE 100MCG 14 PUFFS/INHALER INH SCH (09:04)
[2022-08-25] MEDS: POLYETHYLENE (MIRALAX) 17 GM PACK PO SCH ×2 (09:13→20:29)
--- NOTE | 2022-08-25 10:56 | Hospitalist Progress Note ---
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 -Chest pain x1-2 weeks, history of NSTEMI 11/2021 and 11/2005 s/p 3 JOHNATHAN. -Most likely musculoskeletal, now resolved -EKG normal sinus w/o acute ischemic changes. -CXR negative for acute cardiopulmonary findings. -Troponin 8.2 on admission. -Last echo w/ EF 55-60%, (2) Change in bowel habits: Plan: Resolved now having regular BM will d/c her on regular stool softener at home KUB was normal (3) Uncontrolled type 2 diabetes mellitus with neurologic complication, with long-term current use of insulin: Plan: -BSG on admission 414. Patient's glucose has been chronically elevated above 300 past few months. -On 43 units of SQ long acting at home. Novolog 03/23/13u + sliding scale w/ factor 25 for BG >150. -Received 6U IV insulin in ED. Repeat BSG 295. -Of note patient mentioned she has gone hypoglycemic in past. Hypoglycemia protocol in place. -Started on Lantus 22U BID, correction factor 20, carb ratio 6g/U -Monitor blood sugar trend and titrate as tolerated. (4) Reactive airway disease: Plan: -Continue home albuterol, Trelegy Ellipta. (5) Anxiety: Plan: -Continue home buspirone and duloxetine. (6) HTN (hypertension): Plan: -Continue home metoprolol and lisinopril as above. (7) CAD (coronary artery disease): (8) CKD (chronic kidney disease), stage III: (9) GERD (gastroesophageal reflux disease): (10) Hyperglycemia: (11) Abnormal LFTs: (12) Diabetic nephropathy: (13) Nausea & vomiting: (14) Constipation: (15) S/P coronary artery stent placement: (16) Dyslipidemia: (17) Depression: (18) IBS (irritable bowel syndrome): Plan hopefully d/c in the next 24 hrs Admission and Anticipated Discharge Date Admission Date: August 21, 2022 Subjective patient seen and examined, says her chest pain has resolved, constipation has resolved, but feels a little weak today Review of Systems Review of Systems: All systems reviewed are negative, apart from the ones contained in the history. Physical Exam Physical Exam: The patient is awake, alert and oriented 3, well developed and well nourished, normocephalic and atraumatic, lying in bed and in no acute distress. HEENT--PERRL, EOMI, mucous membranes and oropharynx mildly dry Neck--supple. No JVD. No bruits. Thyroid normal, trachea midline, no adenopathy. Heart--normal S1 and S2. No murmurs, rubs or gallops. Lungs--clear bilaterally, no respiratory distress, no accessory muscle use. Abdomen--normal bowel sounds and soft. Mild epigastric and left sided abdominal pain Extremities--no cyanosis or clubbing. No edema. Dermatologic--normal skin turgor, normal color, no abnormal lymph nodes, no rash. Neurologic--cranial nerves II through XII grossly intact. Rheumatologic--normal range of motion. Psychiatric--normal affect. Results & Data Results & Data ([facility]) Vital Signs (Past 12 Hours) Vital Signs Temp Pulse Pulse Resp BP Pulse Ox O2 Del Method 08/25/22 08:00 Room Air 08/25/22 08:23 98.2 F 54 L 18 130/72 98 Room Air 08/25/22 07:09 59 L 08/25/22 04:53 98.6 F 56 L 18 121/61 97 Room Air 08/25/22 01:43 55 L 08/24/22 23:48 98.6 F 54 L 16 135/75 95 Room Air PG Care Time/CCT Total # of Minutes Spent Total Time Spent with Patient: Total time spent is greater than 50% in coordination of care (as documented) at patient's floor/unit and/or counseling patient: Coding Level of Care Code 11053 SUB INP/OBS CARE 2/35MIN Diagnoses Chest pain R07.9 Chest pain type: unspecified Change in bowel habits R19.4 Uncontrolled type 2 diabetes mellitus with neurologic complication, with long- term current use of insulin E11.49; E11.65; Z79.4 Reactive airway disease J45.909 Anxiety F41.9 HTN (hypertension) I10 CAD (coronary artery disease) I25.10 Coronary Disease-Associated Artery/Lesion type: [place] artery [place] vs. transplanted heart: ass[place]ine and sioux heart Associated angina: angina presence unspecified CKD (chronic kidney disease), stage III N18.30 GERD (gastroesophageal reflux disease) K21.9 Esophagitis presence: without esophagitis Hyperglycemia R73.9 Abnormal LFTs R79.89 Diabetic nephropathy E11.21 Nausea & vomiting R11.2 Constipation K59.00 S/P coronary artery stent placement Z95.5 Dyslipidemia E78.5 Depression F32.9 IBS (irritable bowel syndrome) K58.9 Time Spent (min) 35 (1) Chest pain Chest pain type: unspecified Qualified Code(s): R07.9 - Chest pain, unspecified (2) CAD (coronary artery disease) Coronary Disease-Associated Artery/Lesion type: [place] artery [place] vs. transplanted heart: assin[place] and sioux heart Associated angina: angina presence unspecified Qualified Code(s): I25.10 - Atherosclerotic heart disease of assin[place] and sioux coronary artery without angina pectoris (3) GERD (gastroesophageal reflux disease) Esophagitis presence: without esophagitis Qualified Code(s): K21.9 - Gastro- esophageal reflux disease without esophagitis
[2022-08-25] MEDS: LANTUS PER UNIT CHARGE SQ SCH (20:28)
[2022-08-25] MEDS: GABAPENTIN 100 MG CAP PO SCH (20:30)
[2022-08-26] MEDS: INSULIN ASPART PER UNIT CHARGE SC SCH ×2 (09:01→12:38)
[2022-08-26] MEDS: FAMOTIDINE 20 MG TAB PO SCH (09:02)
[2022-08-26] MEDS: busPIRone 5 MG TAB PO SCH ×2 (09:02→12:40)
[2022-08-26] MEDS: lisinopril 10 MG TAB PO SCH (09:03)
[2022-08-26] MEDS: ROSUVASTATIN CALCIUM 20 MG TAB PO SCH (09:03)
[2022-08-26] MEDS: DULoxetine HCL 30 MG CAP PO SCH (09:03)
[2022-08-26] MEDS: ASPIRIN 81 MG ECTAB PO SCH (09:03)
[2022-08-26] MEDS: EZETIMIBE 10 MG TABLET PO SCH (09:03)
[2022-08-26] MEDS: METOPROLOL SUCC 50MG EXT REL TAB PO SCH (09:04)
[2022-08-26] MEDS: UMECLIDINIUM/VILANTEROL 62.5/25MCG 7 PUFFS/INHALER INH SCH (09:04)
[2022-08-26] MEDS: ISOSORBIDE MONO EXTENDED REL 60 MG TABCR PO SCH (09:04)
[2022-08-26] MEDS: POLYETHYLENE (MIRALAX) 17 GM PACK PO SCH (09:04)
[2022-08-26] MEDS: ENOXAPARIN INJ 40 MG/0.4 ML SYR SQ SCH (09:04)
[2022-08-26] MEDS: FLUTICASONE FUROATE 100MCG 14 PUFFS/INHALER INH SCH (09:04)
--- NOTE | 2022-08-26 12:37 | Pharmacy Report ---
Pharmacy Glycemic Short Note 2 - Date of Service August 26, 2022 - Glycemic Short BSG Results (Last 24 hours): 08/25/22 08/25/22 08/26/22 16:51 20:09 07:37 POC Glucose 148 H 112 H 102 H 08/26/22 11:41 POC Glucose 228 H OUTPATIENT ANTIDIABETIC REGIMEN: * Novolog TID with meals, plus sliding scale * 6 units with breakfast * 8 units with lunch * 10 units with dinner * Tresiba 15 units SQ qAM, and 48 units SQ qPM * Metformin 1 gm PO BID * HbA1C = 12.6% (08/22/22) ASSESSMENT: 08/26/22: * BSGs have been reasonable on current regimen. * Pre-lunch BSG is sometimes elevated. Will consider tightening carb ratio for breakfast only if this trend continues. * No changes at this time. 08/24 * Fasting BSG was below goal this morning. Lantus dose reduced for this evening. * Pre-lunch BSG was elevated, so Novolog parameters were tightened with lunch to provide additional carb coverage. * Will continue to follow and adjust as indicated. 08/22 * Ms Michael is a 77 y/o F with a PMH of T2DM who presents with chest pain and dizziness. * Patient's BSGs were elevated only admission - 414 mg/dL (for which she received 6 units of IV insulin ) then 295-187 mg/dL. Patient also received 22 units of Lantus in the evening. * Overnight BSG was 209 mg/dL for which patient received 3 units of Novolog. * Fasting this AM was 126 mg/dL and lunch 150 mg/dL. * Per previous admission, patient's Lantus was continuously decreased from 58 units/day to 28 units per day. Will start with Lantus 25 units tonight (obtained from Lantus 22 units given + Novolog 3 units) * Novolog weight-based stress of 3 which correlates with previous admission. PLAN FOR INPATIENT GLYCEMIC CONTROL: * Hold outpatient oral diabetes medications * Basal insulin * Lantus 12-15 units SQ qHS, depending on BSG (see EMR for details) * Bolus insulin * NovoLog per scale ACHS or Q6hrs while NPO * Goal Range: Low 110 mg/dL - High 140 mg/dL * Correction Factor: 30 mg/dL/unit * Nutritional / Prandial insulin per carb ratio of 1 unit per 7 grams CHO consumed
--- NOTE | 2022-08-26 15:10 | Discharge Summary ---
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 Patient states that she was previously seen in the ED in late July about a week ago for diarrhea that was persistent and watery, at that time her stool PCR was negative, given IV fluids and had improvement in overall condition. She states that her diarrhea has since gone away and has been replaced with constipation as whenever she tries to get out a stool it bubbles a little and maybe one drop comes out. She states at the time of her last ED visit she had chest pain at the left chest as well as dizziness present however not as intense as it had been before coming in this time. She states that her chest pain is at the left side of the chest and radiates down the left arm. She has had nausea and vomiting with this, the last time she vomited was this morning when she tried eating something for breakfast. The chest pain has been getting progressively worse but does not get worse with anything in particular and the intensity waxes and wanes. Prior to coming in her chest pain was at around 8 to 8.5/10 however she says right now it has improved to 7/10. She also has dizziness at that has been constant and gotten worse. She states she is an insulin dependent diabetic and has long acting as well as short acting insulin at home. She states she is compliant, does not know the doses of insulin she receives. Per patient her sugars at home have been elevated with BSG in the mornings being consistently above 300 for the past few months and above 400 the past couple days. She has tried adjustments to the insulin regimen with her PCP however this has not helped much with her elevated sugars. She has a more recent history of neuropathy at the feet with pain rather than numbness. At time she may have headaches however usually relieved with OTC Tylenol. She also says she has a history of lower back pain that is currently controlled. Patient denies abdominal pain, bloating, changes in vision or hearing, shortness of breath. Patient does not have any history of smoking or alcohol consumption. Principal Diagnosis chest pain, constipation Discharge Exam The patient is awake, alert and oriented 3, well developed and well nourished, normocephalic and atraumatic, lying in bed and in no acute distress. HEENT--PERRL, EOMI, mucous membranes and oropharynx mildly dry Neck--supple. No JVD. No bruits. Thyroid normal, trachea midline, no adenopathy. Heart--normal S1 and S2. No murmurs, rubs or gallops. Lungs--clear bilaterally, no respiratory distress, no accessory muscle use. Abdomen--normal bowel sounds and soft. Mild epigastric and left sided abdominal pain Extremities--no cyanosis or clubbing. No edema. Dermatologic--normal skin turgor, normal color, no abnormal lymph nodes, no rash. Neurologic--cranial nerves II through XII grossly intact. Rheumatologic--normal range of motion. Psychiatric--normal affect. 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 -Chest pain x1-2 weeks, history of NSTEMI 11/2021 and 11/2005 s/p 3 JOHNATHAN. -Most likely musculoskeletal, now resolved -EKG normal sinus w/o acute ischemic changes. -CXR negative for acute cardiopulmonary findings. -Troponin 8.2 on admission. -Last echo w/ EF 55-60%, (2) Change in bowel habits: Resolved now having regular BM will d/c her on regular stool softener at home KUB was normal (3) Uncontrolled type 2 diabetes mellitus with neurologic complication, with long-term current use of insulin: -BSG on admission 414. Patient's glucose has been chronically elevated above 300 past few months. -On 43 units of SQ long acting at home. Novolog 03/23/13u + sliding scale w/ factor 25 for BG >150. -Received 6U IV insulin in ED. Repeat BSG 295. -Of note patient mentioned she has gone hypoglycemic in past. Hypoglycemia protocol in place. -Started on Lantus 22U BID, correction factor 20, carb ratio 6g/U -Monitor blood sugar trend and titrate as tolerated. (4) Reactive airway disease: -Continue home albuterol, Trelegy Ellipta. (5) Anxiety: -Continue home buspirone and duloxetine. (6) HTN (hypertension): -Continue home metoprolol and lisinopril as above. (7) CAD (coronary artery disease): (8) CKD (chronic kidney disease), stage III: (9) GERD (gastroesophageal reflux disease): (10) Hyperglycemia: (11) Abnormal LFTs: (12) Diabetic nephropathy: (13) Nausea & vomiting: (14) Constipation: (15) S/P coronary artery stent placement: (16) Dyslipidemia: (17) Depression: (18) IBS (irritable bowel syndrome): Plan hopefully d/c in the next 24 hrs Total Time Total Time Spent Total Time Spent (In Minutes): 35 Discharge Plan Discharge Items Patient Disposition: Home - Self-Care Reason For Visit: DIZZINESS, L SIDED CHEST PAIN Discharge Diagnosis: chest pain, constipation Activity: Resume your previous activity Non-emergency contact: Primary Care Provider Call non-emergency contact if: you have any medication questions Follow-up/Referrals: Lalito Pimentel MD [Primary Care Provider] - 09/02/22 11:00 am Diet: Regular Addtl Attending Provider Instructions: please make appointment to follow up with your regular PCP Pending Studies at Discharge: No Stand-Alone Forms: My [facility] [employer] [facility], Smoking Cessation Medications and DC Order Prescriptions: New polyethylene glycol 3350 [Miralax] 17 gram Powder In Packet 17 g PO DAILY 30 Days Qty: 30 0RF Continued cholecalciferol (vitamin D3) [Vitamin D3] 1,000 unit capsule 1,000 units PO QAM Qty: 0 Label Comments: Take with the largest meal of the day. (DME) OneTouch Verio test strips Strip See Dose Instructions .ROUTE .MEDSUPPLY Qty: 200 3RF Dose Instruction: As directed Rx Instructions: Test 4 TIMES Daily. duloxetine 30 mg capsule,delayed release(DR/EC) 30 mg PO QAM Qty: 90 3RF isosorbide mononitrate 30 mg tablet extended release 24 hr 60 mg PO QAM Qty: 180 3RF buspirone 10 mg tablet 10 mg PO TID Qty: 270 1RF metformin 500 mg tablet 1,000 mg PO BID Qty: 120 6RF rosuvastatin 40 mg tablet 40 mg PO QAM Qty: 90 3RF Rx Instructions: for cholesterol lisinopril 10 mg tablet 10 mg PO QAM Qty: 90 3RF gabapentin 100 mg capsule 100 mg PO HS Qty: 30 3RF pantoprazole 40 mg tablet,delayed release (DR/EC) 40 mg PO BID Qty: 30 6RF Rx Instructions: TAKE 1 TABLET BY MOUTH TWICE A DAY insulin aspart U-100 [Novolog Flexpen U-100 Insulin] 100 unit/mL (3 mL) insulin pen 24 unit subcut DAILY Qty: 15 5RF Rx Instructions: Inject 6 units with breakfast, 8 units with lunch, 10 units with dinner plus sliding scale TDD 40 units insulin degludec [Tresiba FlexTouch U-100] 100 unit/mL (3 mL) insulin pen 48 unit SQ QPM Qty: 15 5RF (DME) pen needle, diabetic [BD Ultra-Fine [place] Pen Needle] 32 gauge x 5/32" needle See Rx Instructions .ROUTE .MEDSUPPLY Dose Instruction: As directed Rx Instructions: Inject insulin four times daily ondansetron HCl 4 mg tablet 4 mg PO Q8H PRN (Reason: nausea and vomiting) Qty: 30 0RF Praluent Pen 75 mg/mL pen injector 75 mg subcut Q14D Qty: 2 11RF diclofenac sodium [Arthritis Pain (diclofenac)] 1 % gel 2 g topical QID PRN (Reason: Pain) Trelegy Ellipta 100-62.5-25 mcg blister with device 1 inh inhalation DAILY Qty: 28 11RF Rx Instructions: She was instructed to rinse mouth thoroughly after each dose. metoprolol succinate 100 mg tablet extended release 24 hr 100 mg PO QAM Qty: 90 3RF Linzess 145 mcg capsule 145 mcg PO QAM PRN (Reason: Constipation) Label Comments: Take 30 minutes prior to first meal of the day. Do Not open or Crush capsule famotidine 20 mg tablet 20 mg PO BID Qty: 180 2RF (DME) FreeStyle Renan 2 Sensor Kit See Rx Instructions .Route Rx Instructions: As directed (DME) FreeStyle Renan 2 [place] Misc See Rx Instructions .Route Rx Instructions: As directed ezetimibe [Zetia] 10 mg tablet 10 mg PO QAM Qty: 90 3RF Gvoke HypoPen 2-Pack 1 mg/0.2 mL auto-injector 1 mg subcut .COMPLEX Qty: 0.4 0RF Rx Instructions: 1 mg subcut as directed for hypoglycemia; nitroglycerin [Nitrostat] 0.4 mg tablet, sublingual 0.4 mg Sublingual UD PRN (Reason: Chest Pain) Qty: 1 3RF benzonatate 200 mg capsule 200 mg PO TID PRN (Reason: cough) Qty: 30 0RF aspirin 81 mg Tablet,Delayed Release (Dr/Ec) 81 mg PO QAM albuterol sulfate 90 mcg/actuation HFA aerosol inhaler 2 inha INH QID PRN (Reason: shortness of breath or wheezing) Qty: 1 0RF Discharge Orders: Discharge Order (Routine); Ordered 08/26/22 Ordered By: Starla Stinson/Other Patient Handouts: High Blood Sugar (Hyperglycemia), Managing Type 2 Diabetes Admission Data Admit Date/Time: 08/21/22 19:17 Attending Provider: Starla Velázquez Admit Provider: Antonino Guy Primary Care Provider: Lalito Pimentel Other Providers: Lalito Sommer ; [facility] Other Interventions: Discharge Summary Assessment (RN) Last Done: 08/26/22 14:44 Coding Level of Care Code HOSP INP/OBS DISCH >30 MIN Diagnoses Chest pain R07.9 Chest pain type: unspecified Change in bowel habits R19.4 Uncontrolled type 2 diabetes mellitus with neurologic complication, with long- term current use of insulin E11.49; E11.65; Z79.4 Reactive airway disease J45.909 Anxiety F41.9 HTN (hypertension) I10 CAD (coronary artery disease) I25.10 Coronary Disease-Associated Artery/Lesion type: [place] artery [place] vs. transplanted heart: iroquois heart Associated angina: angina presence unspecified CKD (chronic kidney disease), stage III N18.30 GERD (gastroesophageal reflux disease) K21.9 Esophagitis presence: without esophagitis Hyperglycemia R73.9 Abnormal LFTs R79.89 Diabetic nephropathy E11.21 Nausea & vomiting R11.2 Constipation K59.00 S/P coronary artery stent placement Z95.5 Dyslipidemia E78.5 Depression F32.9 IBS (irritable bowel syndrome) K58.9 Time Spent (min) 35
== END 2022-08-26 16:22 | disposition home or self-care (01) ==
LOC: ED 14:09 → EDINP 19:17 → SUATTDRO 19:17 → INTOOBSV 19:17 → 2N 22:23

== ENCOUNTER 2022-08-31 15:37 | Observation (INO) ==
--- NOTE | 2022-08-31 15:56 | Emergency Department Note ---
Impression & Plan Chest pain, HTN (hypertension) ED Provider Note ED Provider Note NAME: SHIRA CUNNINGHAM AGE:77 SEX: Female : 1945 ARRIVES VIA: Ambulance INFORMANT: Patient ED PROVIDER(s): Maggie Posey DO CHIEF COMPLAINT: Chest pain, shortness of breath, dizziness HPI: This is a 77-year-old female presents emerged part with complaining of chest pain, shortness of breath and dizziness. Patient states she has had symptoms daily over the last 3 weeks. She states she was admitted for evaluation of the similar symptoms last week and since going home reports feeling worse. She states while laying down and at rest she feels fine, however but even sitting or standing she begins to develop shortness of breath, dizziness, chest pain/pressure, and with persistence will become nauseated as well. She states with the nausea she has had intermittent vomiting. Patient denies any recent medication changes. Does not recall what testing she had done last week during her admission. Patient states she has previously had heart a ttacks, and some of her symptoms are similar to those. PAST MEDICAL HISTORY:See Below PAST SURGICAL HISTORY:See Below FAMILY HISTORY:See Below SOCIAL HISTORY:See Below HOME MEDICATIONS:See Below ALLERGIES:See Below VITALS:See Below PHYSICAL EXAMINATION: GENERAL: alert, well appearing, well nourished, no distress, non-toxic EYE EXAM: normal conjunctiva, PERRL and EOM's grossly intact OROPHARYNX: no exudate, no erythema, lips, buccal mucosa, and tongue normal and mucous membranes are moist NECK: supple, no nuchal rigidity, no adenopathy, non-tender LUNGS: Clear to auscultation. Normal chest wall mechanics, no w/r/r HEART: no murmurs, S1 normal and S2 normal ABDOMEN: abdomen soft, non-tender, normo-active bowel sounds, no masses, no rebound or guarding. BACK: Back is symmetrical on inspection and there is no deformity, no midline tenderness, no CVA tenderness. SKIN: no rashes, petechiae, orbruising UPPER EXTREMITIES: upper extremities are grossly normal. FROM, nml pulses b/l. LOWER EXTREMITIES: No pitting edema. FROM, nml pulses b/l. NEURO EXAM: Normal sensorium, cranial nerves II-XII grossly intact, normal speech, no facial droop,nogross weakness of arms, no gross weakness of legs. Gross sensation intact. No ataxia. Vital Signs: reviewed and remarkable Differential Diagnosis: Differential diagnoses includes but is not limited to acute coronary syndrome, myocardial infarction, pericarditis, pulmonary embolus, aortic dissection, pneumonia, pneumothorax, musculoskeletal, shingles, esophageal. MEDICAL DECISION MAKING: This is a 77-year-old female presents emergency department due to concern for chest pain and hypertension. Patient does have history of hypertension and does take medication daily. Patient with several other risk factors for coronary artery disease. Labs drawn and sent, IV established, EKG interpreted by me. No acute changes to suggest ACS. Patient with recent admission for similar symptoms. We did review EMR and recent studies at bedside. Patient with persistent chest pain had persistent hypertension despite additional medication and treatment of pain here. Labs and imaging reassuring, however due to concern given risk factors for coronary artery disease and prior catheterization findings, patient could have evolving ACS. No evidence of endorgan damage or hypertensive emergency at this time. I do not suspect acute dissection or infectious etiology. Patient had a normal and nonfocal neuro exam. Patient not hypoxic while present emergency room. No ectopy or dysrhythmia noted. Case discussed with hospitalist for additional evaluation and management. Patient was noted to be hypomagnesemic, this was repleted while in the ER. Patient also noted to be hyperglycemic, does have a history of diabetes. No evidence of DKA, she was given subcu insulin. Consultation(s): 2199: Discussed with Dr. Mulligan. ER Treatment Provided: IV mag, nitro paste, IV tylenol, IV hydralazine, IV morphine, insulin 190: Pt states still having pain. Diagnostics Interpreted By Me: -ECG: Normal sinus rhythm at 95, normal QRS and QTc, normal axis, nonspecific ST/T wave changes -Cardiac Monitoring: An order was placed for continuous cardiac monitoring. The monitor shows a rate of 92 with normal sinus rhythm. -Laboratory studies: As stated above and show below. -Imaging studies: Chest x-ray Triage Nursing Note Reviewed Prior/Outside Records Reviewed Procedures: [] Critical Care: [] Past Med/Surg History Medical History Acute non-ST elevation myocardial infarction (NSTEMI) 11/28/2021 had [place] medical management and follow with dr kaylen jeter 02/09/2022 [place] esophagus CAD (coronary artery disease) s/p stents to RCA November 2005; s/p stents to LAD, LCx in January 2006; s/p stents to RCA in 08/2006 Cervical pain (neck) Chest pain chronic chest pain and cardiac is negative Chronic pain syndrome Depression Diabetes mellitus, type 2 IDDM Diabetic gastroparesis Diabetic peripheral neuropathy Dyslipidemia Folic acid deficiency GERD without esophagitis History of COVID-2020 - resolved IBS (irritable bowel syndrome) Lumbar spondylosis Myocardial Infarction [place]- November 2005, January 2006, Aug 2006 3 total within an 8 month span--HX OF CATH 2012 [facility], FOLLOWS WITH DR. JULES Vitamin B12 deficiency Surgical History History of cardiac cath last 2012 @ [facility], no stents--s/p stents to RCA November 2005; s/p stents to LAD, LCx in January 2006; s/p stents to RCA in 08/2006 History of cataract surgery BL History of cholecystectomy History of colonoscopy with polypectomy History of esophageal dilatation History of esophagogastroduodenoscopy (EGD) History of lumbar spinal fusion History of tooth extraction all teeth History of total hysterectomy with bilateral salpingo-oophorectomy (BSO) History of total right knee replacement (TKR) S/P coronary artery stent placement s/p stents to RCA November 2005; s/p stents to LAD, LCx in January 2006; s/p stents to RCA in 08/2006 Status post trigger finger release right thumb Family History Brother Myocardial infarction Anxiety Heart disease Hypertension Cancer Sister Family history of reaction to anesthesia difficulty waking Hypertension Heart disease Myocardial infarction Anxiety Cancer Diabetes Father Anxiety Heart disease Hypertension Mother Anxiety Hypertension Heart disease Unknown Cancer skin, GI Denies family history of Ovarian cancer Prostate cancer Breast cancer Colorectal cancer Stroke Social History Smoking Status: Former smoker Tobacco Type: Cigarettes Age Started Using Tobacco: 18; Age Quit Using Tobacco: 57; Cigarettes Per Day: 3 cigarettes a week; Second Hand Exposure: No; Hx Alcohol Use: No Hx Substance Use: No Preferred Language: Nigerien Communication Ability: Effective Visual Impairment: Limited Hearing Ability: Normal Natural Resource Officer Required: No Beliefs That Will Affect Care: None marital status: / Current Living Situation: Alone Current Living Situation Comment: apartment building current occupational status: retired and disabled How many Children do You have: 3 Feels Safe at Home: Yes Childhood Exposure to Second-Hand Smoke: No caffeine: Yes (drinks coffee, diet pepsi occasionally ) Dental Care, Regularly: No Physical Activity Frequency: Does not Exercise Seatbelt Use: always Sunscreen Use: No Assistive Devices: Cane and Walker Allergies Allergies Allergy/AdvReac Type Severity Reaction Status Date / Time cephalexin Allergy Intermediate Rash and Verified 08/21/22 18:38 itchiness Cephalosporins Allergy Intermediate Rash and Verified 08/21/22 18:38 itchiness Sulfa (Sulfonamide Allergy Intermediate Hives Verified 08/21/22 18:38 Antibiotics) Home Meds Home Medications Medication Instructions Recorded Confirmed linaclotide 145 mcg capsule 145 mcg PO QAM PRN Constipation 04/05/19 08/31/22 (Linzess) pen needle, diabetic 32 gauge x 11/18/20 08/31/22 5/32" (BD Ultra-Fine [place] Pen Needle) flash glucose scanning reader 06/26/21 08/31/22 (FreeStyle Renan 2 [place]) flash glucose sensor (FreeStyle 06/26/21 08/31/22 Renan 2 Sensor kit) aspirin 81 mg tablet,delayed 81 mg PO QAM 10/24/21 08/31/22 release diclofenac sodium 1 % topical gel 2 g topical QID PRN Pain 10/31/21 08/31/22 (Arthritis Pain (diclofenac)) Previous Rx's Medication Instructions Recorded famotidine 20 mg tablet 20 mg PO BID #180 tabs 05/07/21 ondansetron HCl 4 mg tablet 4 mg PO Q8H PRN nausea and 06/24/21 vomiting #30 tabs blood sugar diagnostic (OneTouch #200 ea 08/14/21 Verio test strips) duloxetine 30 mg capsule,delayed 30 mg PO QAM #90 caps 08/19/21 release isosorbide mononitrate 30 mg 60 mg PO QAM #180 tabs 08/19/21 tablet,extended release 24 hr Gvoke HypoPen 2-Pack 1 mg/0.2 mL 1 mg (0.2 mL) subcut .COMPLEX #0.4 11/03/21 subcutaneous auto-injector mL (glucagon) ezetimibe 10 mg tablet (Zetia) 10 mg PO QAM #90 tabs 11/03/21 buspirone 10 mg tablet 10 mg PO TID #270 tabs 11/06/21 metformin 500 mg tablet 1,000 mg PO BID #120 tabs 11/07/21 nitroglycerin 0.4 mg sublingual 0.4 mg sublingual UD PRN Chest 12/08/21 tablet (Nitrostat) Pain #1 btl albuterol sulfate 90 mcg/actuation 2 inha inhalation QID PRN 01/10/22 aerosol inhaler shortness of breath or wheezing #1 g benzonatate 200 mg capsule 200 mg PO TID PRN cough #30 caps 01/15/22 fluticasone fur. 100 mcg-umeclid 1 inh inhalation DAILY #28 ea 02/11/22 62.5 mcg-vilant 25 mcg inhalat.powder (Trelegy Ellipta) metoprolol succinate 100 mg 100 mg PO QAM #90 tabs 02/11/22 tablet,extended release 24 hr rosuvastatin 40 mg tablet 40 mg PO QAM #90 tabs 04/01/22 lisinopril 10 mg tablet 10 mg PO QAM #90 tabs 05/14/22 gabapentin 100 mg capsule 100 mg PO HS #30 caps 05/19/22 pantoprazole 40 mg tablet,delayed 40 mg PO BID #30 tabs 05/19/22 release alirocumab 75 mg/mL subcutaneous 75 mg subcut Q14D #2 mL 05/21/22 pen injector (Praluent Pen) insulin aspart U-100 100 unit/mL 24 unit (0.24 mL) subcut DAILY #15 08/24/22 (3 mL) subcutaneous pen (Novolog mL FlexPen U-100 Insulin aspart) insulin degludec 100 unit/mL (3 48 unit (0.48 mL) subcut QPM #15 mL 08/24/22 mL) subcutaneous pen (Tresiba FlexTouch U-100 insulin) polyethylene glycol 3350 17 gram 17 g PO DAILY 30 days #30 ea 08/26/22 oral powder packet (Miralax) cholecalciferol (vitamin D3) 25 1,000 unit PO QAM #90 tabs 08/28/22 mcg (1,000 unit) capsule (Vitamin D3) Results & Data (ED) Vital Signs Vital Signs - 24 hr 08/31/22 15:47 08/31/22 15:47 08/31/22 17:20 Temperature 36.8 C Temperature Source Oral Pulse Rate 90 Pulse Rate [Apical] 78 Pulse Rhythm Regular Pulse Strength Normal Respiratory Rate 24 20 Respiratory Effort / Characteristics Non-Labored Non-Labored Respiratory Depth Normal Normal Respiratory Pattern Regular Blood Pressure 201/141 H Blood Pressure [Left Arm] 198/123 H Blood Pressure Mean 161 Blood Pressure Mean [Left Arm] 148 Blood Pressure Position Sitting Pulse Oximetry 96 98 Oxygen Delivery Method Room Air Room Air Room Air Sepsis Recent Fever Within 48 Hours No Sepsis New/Unexplained Change in Mental Status No Sepsis Action Taken by Nursing No Action Required 08/31/22 18:16 Temperature Temperature Source Pulse Rate Pulse Rate [Apical] 66 Pulse Rhythm Pulse Strength Respiratory Rate 18 Respiratory Effort / Characteristics Respiratory Depth Respiratory Pattern Blood Pressure Blood Pressure [Left Arm] 193/89 H Blood Pressure Mean Blood Pressure Mean [Left Arm] 123 Blood Pressure Position Pulse Oximetry 98 Oxygen Delivery Method Room Air Sepsis Recent Fever Within 48 Hours Sepsis New/Unexplained Change in Mental Status Sepsis Action Taken by Nursing Laboratory Data 08/31/22 16:33 08/31/22 16:33 Lab Results 08/31/22 08/31/22 08/31/22 Range/Units 16:33 16:33 19:18 WBC 4.91 (4.8-10.8) K/ul RBC 4.46 (3.93-5.22) M/uL Hgb 13.0 (12.0-16.0) g/dl Hct 37.8 (34.1-44.9) % MCV 84.8 (80.0-100.0) fL MCH 29.1 (25.0-34.0) pg MCHC 34.4 (32.0-36.0) g/dL RDW Std Deviation 41.8 (36.4-46.3) fL RDW Coeff of Tino 13.4 (11.5-14.5) % Plt Count 216 (130-400) K/uL MPV 10.5 (9.4-12.3) fL Immature Gran % (Auto) 0.2 % Neut % (Auto) 57.3 % Lymph % (Auto) 33.6 % [place] % (Auto) 6.3 % Eos % (Auto) 1.4 % Baso % (Auto) 1.2 % Neut # (Auto) 2.81 (1.4-6.5) K/uL Lymph # (Auto) 1.65 (1.2-3.4) K/uL [place] # (Auto) 0.31 (0.24-0.82) K/uL Eos # (Auto) 0.07 (0-0.50) K/uL Baso # (Auto) 0.06 (0-0.2) K/uL Immature Gran # (Auto) 0.01 (0.00-0.02) K/uL Sodium 137 (136-145) mmol/L Potassium 3.9 (3.5-5.1) mmol/L Chloride 103 (98-107) mmol/L Carbon Dioxide 29 (21-32) mmol/L Anion Gap 5 (3-11) BUN 12 (6-23) mg/dl Creatinine 0.82 (0.6-1.2) mg/dl Est Cr Clr Drug Dosing 54.0 ml/min Est GFR ( Amer) 81.1 ml/min Est GFR (Non-Af Amer) 70.0 ml/min BUN/Creatinine Ratio 14.6 (10-20) Glucose 301 H* (70-99(Fasting)) mg/dl POC Glucose 226 H (70-99) mg/dl Calcium 9.2 (8.5-10.1) mg/dl Phosphorus 3.4 (2.5-4.9) mg/dl Magnesium 1.5 L (1.7-2.4) mg/dl Total Bilirubin 0.3 (0.2-1.0) mg/dl AST 15 (13-39) U/L ALT 19 (7-52) U/L Alkaline Phosphatase 71 (34-104) U/L Troponin I High Sens 6.7 (0-14) pg/ml Total Protein 6.5 (6.0-8.3) gm/dl Albumin 3.6 (3.4-5.0) gm/dl Globulin 2.9 (2.5-4.0) gm/dl Albumin/Globulin Ratio 1.2 (0.9-2) Lipase 18 (11-82) U/L SARS-CoV-2, RNA, NAAT (NEGATIVE) 08/31/22 Range/Units 21:19 WBC (4.8-10.8) K/ul RBC (3.93-5.22) M/uL Hgb (12.0-16.0) g/dl Hct (34.1-44.9) % MCV (80.0-100.0) fL MCH (25.0-34.0) pg MCHC (32.0-36.0) g/dL RDW Std Deviation (36.4-46.3) fL RDW Coeff of Tino (11.5-14.5) % Plt Count (130-400) K/uL MPV (9.4-12.3) fL Immature Gran % (Auto) % Neut % (Auto) % Lymph % (Auto) % [place] % (Auto) % Eos % (Auto) % Baso % (Auto) % Neut # (Auto) (1.4-6.5) K/uL Lymph # (Auto) (1.2-3.4) K/uL [place] # (Auto) (0.24-0.82) K/uL Eos # (Auto) (0-0.50) K/uL Baso # (Auto) (0-0.2) K/uL Immature Gran # (Auto) (0.00-0.02) K/uL Sodium (136-145) mmol/L Potassium (3.5-5.1) mmol/L Chloride (98-107) mmol/L Carbon Dioxide (21-32) mmol/L Anion Gap (3-11) BUN (6-23) mg/dl Creatinine (0.6-1.2) mg/dl Est Cr Clr Drug Dosing ml/min Est GFR ( Amer) ml/min Est GFR (Non-Af Amer) ml/min BUN/Creatinine Ratio (10-20) Glucose (70-99(Fasting)) mg/dl POC Glucose (70-99) mg/dl Calcium (8.5-10.1) mg/dl Phosphorus (2.5-4.9) mg/dl Magnesium (1.7-2.4) mg/dl Total Bilirubin (0.2-1.0) mg/dl AST (13-39) U/L ALT (7-52) U/L Alkaline Phosphatase (34-104) U/L Troponin I High Sens (0-14) pg/ml Total Protein (6.0-8.3) gm/dl Albumin (3.4-5.0) gm/dl Globulin (2.5-4.0) gm/dl Albumin/Globulin Ratio (0.9-2) Lipase (11-82) U/L SARS-CoV-2, RNA, NAAT NEGATIVE (NEGATIVE) Administered Medications Aspirin (Aspirin 81 Mg Ectab) 81 mg PO QAM [facility] Stop: 10/01/22 08:59 Last Admin: 09/01/22 08:34 Dose: 81 mg Documented By: MT Buspirone HCl (Buspirone 5 Mg Tab) 10 mg PO TID [facility] [place] Stop: 10/01/22 08:59 Last Admin: 09/01/22 13:44 Dose: 10 mg Documented By: Admin: 09/01/22 08:34 Dose: 10 mg Documented By: MT Duloxetine HCl (Duloxetine Hcl 30 Mg Cap) 30 mg PO QAM [facility] Stop: 10/01/22 08:59 Last Admin: 09/01/22 08:34 Dose: 30 mg Documented By: MT Famotidine (Famotidine 20 Mg Tab) 20 mg PO BID [facility] Stop: 10/01/22 08:59 Last Admin: 09/01/22 08:35 Dose: 20 mg Documented By: AUSTIN Fluticasone Furoate (Fluticasone Furoate 100mcg 14 Puffs/Inhaler) 1 puffs INH DAILY [facility] Stop: 10/01/22 08:59 Last Admin: 09/01/22 08:38 Dose: 1 puffs Documented By: AUSTIN Acetaminophen (Ofirmev) 1,000 mg in 100 mls @ 400 mls/hr IV Q8H PRN PRN Reason: Pain Stop: 09/04/22 12:57 Last Infusion: 09/01/22 14:27 Dose: 0 mls/hr Documented By: Admin: 09/01/22 13:43 Dose: 400 mls/hr Documented By: EDMUNDO Insulin Aspart (Insulin Aspart Per Unit) 0 units SC ACHS [facility] Stop: 10/01/22 05:59 Last Admin: 09/01/22 21:00 Dose: 8 units Documented By: FRAME EXPANDER Co-signed By: VALARIE Admin: 09/01/22 17:29 Dose: 7 units Documented By: SERAFIN Co-signed By: SILVIA Insulin Glargine (Lantus Per Unit Charge) 0 units SQ HS [facility]; Protocol Stop: 10/01/22 20:59 Last Admin: 09/01/22 20:59 Dose: 40 units Documented By: FRAME EXPANDER Co-signed By: VALARIE Isosorbide Mononitrate (Isosorbide [place] Extended Rel 60 Mg Tabcr) 60 mg PO DAILY [facility] Stop: 10/01/22 08:59 Last Admin: 09/01/22 08:36 Dose: 60 mg Documented By: MT Lidocaine (Lidocaine 5% 1 Patch) 1 patch TD [facility] Stop: 10/01/22 08:59 Last Admin: 09/01/22 08:44 Dose: Not Given Documented By: MT Lisinopril (Lisinopril 10 Mg Tab) 10 mg PO [facility] Stop: 10/01/22 08:59 Last Admin: 09/01/22 08:35 Dose: 10 mg Documented By: MT Lorazepam (Lorazepam 2 Mg/1 Ml Vial) 0.5 mg IV Q8H PRN PRN Reason: Anxiety/Agitation Stop: 09/30/22 22:59 Last Admin: 08/31/22 23:55 Dose: 0.5 mg Documented By: DP Metoprolol Succinate (Metoprolol Succ 50mg Ext Rel Tab) 100 mg PO [facility] Stop: 10/01/22 08:59 Last Admin: 09/01/22 08:35 Dose: 100 mg Documented By: MT Nitroglycerin (Nitroglycerin Sl 0.4 Mg/Tab Tab) 0.4 mg SL UD PRN PRN Reason: Chest Pain Stop: 09/30/22 22:37 Last Admin: 09/01/22 19:40 Dose: 0.4 mg Documented By: FRAME EXPANDER Ondansetron HCl (Ondansetron Inj 2 Mg/Ml 2 Ml Vial) 4 mg IV Q6H PRN PRN Reason: Nausea Stop: 09/30/22 22:37 Last Admin: 09/01/22 14:24 Dose: 4 mg Documented By: Admin: 09/01/22 10:52 Dose: 4 mg Documented By: MT Pantoprazole Sodium (Pantoprazole 40 Mg Tab) 40 mg PO BID [facility] Stop: 10/01/22 08:59 Last Admin: 09/01/22 08:35 Dose: 40 mg Documented By: MT Polyethylene Glycol (Polyethylene (Miralax) 17 Gm Pack) 17 gm PO DAILY [facility] Stop: 10/01/22 08:59 Last Admin: 09/01/22 08:44 Dose: 17 gm Documented By: AUSTIN Rosuvastatin Calcium (Rosuvastatin Calcium 20 Mg Tab) 40 mg PO QAM [facility] Stop: 10/01/22 08:59 Last Admin: 09/01/22 08:35 Dose: 40 mg Documented By: AUSTIN Umeclidinium/Vilanterol (Umeclidinium/Vilanterol 62.5/25mcg 7 Puffs/Inhaler) 1 puffs INH DAILY [facility] Stop: 10/01/22 08:59 Last Admin: 09/01/22 08:37 Dose: 1 puffs Documented By: MT Vitamin D (Cholecalciferol 1,000 Units 25 Mcg Tab) 1,000 units PO QAM [facility] Stop: 10/01/22 08:59 Last Admin: 09/01/22 08:34 Dose: 1,000 units Documented By: AUSTIN Discontinued Medications Heparin Sodium (Porcine) (Heparin Sod (Porcine) 1000 Unit/Ml) 1 units IV NOW ONE Stop: 09/01/22 00:06 Last Admin: 09/01/22 00:45 Dose: Not Given Documented By: DELFINO Heparin Sodium/Dextrose (Heparin Iv Adult Wt-Based Low-Dose With Bolus Protocol) 1 each IV Q15M [facility]; Protocol Stop: 09/01/22 03:00 Last Admin: 09/01/22 02:41 Dose: Not Given Documented By: Admin: 09/01/22 01:00 Dose: Not Given Documented By: Admin: 09/01/22 00:45 Dose: Not Given Documented By: Admin: 09/01/22 00:45 Dose: Not Given Documented By: Admin: 09/01/22 00:45 Dose: Not Given Documented By: DELFINO Hydralazine HCl (Hydralazine Hcl 20 Mg/Ml Vial) 5 mg IV NOW ONE Stop: 08/31/22 19:33 Last Admin: 08/31/22 19:58 Dose: 5 mg Documented By: RAINER Acetaminophen (Ofirmev) 1,000 mg in 100 mls @ 400 mls/hr IV NOW STA Stop: 08/31/22 17:40 Last Infusion: 08/31/22 18:06 Dose: 0 mls/hr Documented By: Admin: 08/31/22 17:51 Dose: 400 mls/hr Documented By: RAINER Magnesium Sulfate/Dextrose (Magnesium Sulfate / D5w) 1 gm in 100 mls @ 100 mls/hr IV NOW STA Stop: 08/31/22 18:32 Last Infusion: 08/31/22 19:04 Dose: 0 mls/hr Documented By: Admin: 08/31/22 18:04 Dose: 100 mls/hr Documented By: RAINER Magnesium Sulfate/Dextrose (Magnesium Sulfate / D5w) 1 gm in 100 mls @ 200 mls/hr IV Q30M [facility] Stop: 08/31/22 23:25 Last Infusion: 09/01/22 00:48 Dose: 0 mls/hr Documented By: Admin: 09/01/22 00:18 Dose: 200 mls/hr Documented By: Infusion: 08/31/22 23:58 Dose: 0 mls/hr Documented By: Admin: 08/31/22 23:28 Dose: 200 mls/hr Documented By: DELFINO Heparin Sodium/Dextrose (Heparin Sodium/Dextrose) 25,000 units in 500 mls @ 0.02 mls/hr IV .Q24H [facility]; Protocol Stop: 10/01/22 00:14 Last Admin: 09/01/22 00:45 Dose: Not Given Documented By: DELFINO Sodium Nitroprusside 50 mg/ (Dextrose) 502 mls @ 11.431 mls/hr IV .Q24H [facility]; Protocol Stop: 10/01/22 00:28 Last Admin: 09/01/22 02:42 Dose: Not Given Documented By: DELFINO Magnesium Sulfate/Dextrose (Magnesium Sulfate / D5w) 1 gm in 100 mls @ 100 mls/hr IV NOW STA Stop: 09/01/22 02:08 Last Infusion: 09/01/22 03:05 Dose: 0 mls/hr Documented By: Admin: 09/01/22 02:01 Dose: 100 mls/hr Documented By: DELFINO Insulin Aspart (Insulin Aspart Per Unit) 0 units SC Q6 [facility] Stop: 10/01/22 05:59 Last Admin: 09/01/22 12:11 Dose: 4 units Documented By: DTT Co-signed By: [id number] Admin: 09/01/22 08:33 Dose: 3 units Documented By: MT Co-signed By: ADI Insulin Glargine (Lantus Per Unit Charge) 20 units SQ ONCE ONE Stop: 09/01/22 00:30 Last Admin: 09/01/22 02:00 Dose: 20 units Documented By: DELFINO Co-signed By: ROCKY Insulin Human Regular (Novolin-R Insulin Per Unit Charge) 4 units SC NOW STA Stop: 08/31/22 17:34 Last Admin: 08/31/22 18:02 Dose: 4 units Documented By: RAINER Co-signed By: [id number] Morphine Sulfate (Morphine Sulfate 2 Mg/Ml Carp) 2 mg IV NOW STA Stop: 08/31/22 19:06 Last Admin: 08/31/22 19:21 Dose: 2 mg Documented By: RAINER Nitroglycerin (Nitroglycerin 2% Ointment 30gm Tube) 1 inch EXT NOW STA Stop: 08/31/22 17:27 Last Admin: 08/31/22 17:50 Dose: 1 inch Documented By: RAINER Imaging Data Radiologist's Impression: Chest X-Ray 08/31/22 15:52 XR chest 1V portable HISTORY: Atypical chest pain COMPARISON: Chest 08/21/2022. FINDINGS: The lungs are clear. Cardiac silhouette is normal in size. No pleural effusions. No pneumothorax. IMPRESSION: No acute process. ACT 112: Negative or not required by law. Electronically signed by: Vijay Vega M.D. 08/31/2022 4:12 PM Discharge Plan Visit Data Chief Complaint: Chest Pain ED Provider: Maggie Posey Discharge Problem: Chest pain, HTN (hypertension) Patient Disposition: Admitted As Inpatient Discharge Instructions Interventions: ED Discharge Assessment Last Done: 09/01/22 00:30
--- NOTE | 2022-08-31 16:14 | XRay Report ---
XR chest 1V portable HISTORY: Atypical chest pain COMPARISON: Chest 08/21/2022. FINDINGS: The lungs are clear. Cardiac silhouette is normal in size. No pleural effusions. No pneumot horax. IMPRESSION: No acute process. ACT 112: Negative or not required by law. Electronically signed by: Vijay Vega M.D. 08/31/2022 4:12 PM
[2022-08-31 16:57] LABS: Basophils # (auto) 0.06 K/uL (0-0.2); Basophils % (auto) 1.2 %; Eosinophils # (auto) 0.07 K/uL (0-0.50); Eosinophils % (auto) 1.4 %; Hematocrit (blood only) 37.8 % (34.1-44.9); Immature Granulocytes # (auto) 0.01 K/uL (0.00-0.02); Immature Granulocytes % (auto) 0.2 %; Lymphocytes # (auto) 1.65 K/uL (1.2-3.4); Lymphocytes % (auto) 33.6 %; Mean Corpuscular Hemoglobin 29.1 pg (25.0-34.0); Mean Corpuscular Hgb Conc 34.4 g/dL (32.0-36.0); Mean Corpuscular Volume 84.8 fL (80.0-100.0); Mean Platelet Volume 10.5 fL (9.4-12.3); Monocytes # (auto) 0.31 K/uL (0.24-0.82); Monocytes % (auto) 6.3 %; Neutrophils # (auto) 2.81 K/uL (1.4-6.5); Neutrophils % (auto) 57.3 %; Platelet Count 216 K/uL (130-400); RDW Coefficient of Variation 13.4 % (11.5-14.5); RDW Standard Deviation 41.8 fL (36.4-46.3); Red Blood Count 4.46 M/uL (3.93-5.22); White Blood Count 4.91 K/ul (4.8-10.8)
[2022-08-31] MEDS ORDERED: NITROGLYCERIN 2% OINTMENT 30GM TUBE EXT STA (17:26)
[2022-08-31] MEDS ORDERED: ACETAMINOPHEN 1,000 MG/100 ML VIAL IV STA (17:26)
[2022-08-31 17:28] LABS: Albumin Globulin Ratio 1.2 (0.9-2); Albumin Level 3.6 gm/dl (3.4-5.0); BUN Creatinine Ratio 14.6 (10-20); Bilirubin,Total 0.3 mg/dl (0.2-1.0); Calcium 9.2 mg/dl (8.5-10.1); Est GFR (African American) 81.1 ml/min; Globulin 2.9 gm/dl (2.5-4.0); Magnesium 1.5 mg/dl (1.7-2.4); Potassium 3.9 mmol/L (3.5-5.1); Total Protein 6.5 gm/dl (6.0-8.3); Troponin I High Sensitivity 6.7 pg/ml (0-14)
[2022-08-31] MEDS ORDERED: MAGNESIUM SULFATE / D5W 1 GM/100 ML BAG IV STA (17:33)
[2022-08-31] MEDS ORDERED: NovoLIN-R INSULIN PER UNIT CHARGE SC STA (17:33)
[2022-08-31] MEDS ORDERED: MoRPHine SULFATE 2 MG/ML CARP IV STA (19:05)
--- NOTE | 2022-08-31 19:20 | CT Scan Report ---
CT head/brain wo con CLINICAL HISTORY: dizziness Technique: Contiguous axial CT images of the head were acquired from the base of the skull to the liliana kamlesh without intravenous contrast administration. Images were viewed in brain, subdural and [facility]. Automated dose lowering techniques and/or adjustment according to patient size were utilized for this exam. Comparison: Comparison is made to CT head 10/24/2021 Findings: The ventricles, basal cisterns, and cerebral sulci are normal. There is no acute intracranial hemorrh age or evidence of acute territorial infarction. Neither mass effect, shift of the midline structures , nor abnormal extra-axial fluid collections are shown. Imaged portions of the paranasal sinuses and mastoid air cells are clear. The orbits appear normal. There are no acute fractures of the calvaria or scalp swelling. Impression: No acute intracranial hemorrhage, no evidence of acute territorial infarction or other acute intracra nial disease process. ACT 112: Negative or not required by law. Electronically signed by: Josh Lange M.D. 08/31/2022 7:18 PM
[2022-08-31] MEDS ORDERED: hydrALAZINE HCL 20 MG/ML VIAL IV ONE (19:32)
--- NOTE | 2022-08-31 21:42 | History & Physical Report ---
Date of Service August 31, 2022 Assessment & Plan (1) Chest pain: Plan: 77-year-old woman with medical history of CAD, LA x3 (s/p RCA, LAD, LCx) GERD, DM2 who presented to the emergency room for progressive chest pain, shortness of breath and dizziness x3 weeks, admitted to the hospital for ACS rule out. Chest pain -History of CAD, multiple MIs, complaining of chest pain with radiation to left shoulder, similar to prior episode of LA, per patient. Recent echo 08/21/2022 (EF = 65 to 70%, no wall motion abnormality). -Elevated BP 156/84, otherwise vitals wnl on admission. Initial high-sensitivity troponin negative. CXR negative. EKG showing nonspecific ST abnormalities. Hypomagnesemia of 1.5. Troponin now negative x2. -Discussed case with on-call spring fitter: Recommended admission for observation, heparin anticoagulation, holding home Imdur for nitroprusside drip. -Chest pain improved following administration of topical lidocaine, lorazepam. Repeat high-sensitivity troponin also negative. Subsequently discontinued hepar in anticoagulation, nitroprusside drip, following discussion with night attending. * Admit to [facility]Sur telemetry. Made n.p.o. overnight. * Cardiology consulted * Continue home Imdur, ezetimibe, rosuvastatin, lisinopril, metoprolol, aspirin, as needed nitrate * As needed Ativan, Lidoderm chest pain * Follow AM labs: CBC, CMP, Mg, phosphorus, lipid profile DM2/hyperglycemia -Appears to be poorly controlled (hemoglobin A1c 12.6 on 08/22/2022). Home regimen of metformin, and insulin (48 units of basal qpm, 24 units of NovoLog). -Unclear if hypoglycemia on admission truly acute or if patient chronically hyperglycemic. -Blood sugar 226 on admission. Received 4 units Novolin in ED. Gave additional 20 units of glargine on admission. * N.p.o., as above * Glycemic consult in a.m. * Recommend outpatient follow-up with PCP at discharge for tighter glycemic control All other chronic problems (GERD, anxiety, COPD, constipation): Continue home regimen. Code: DNR/DNI Dispo: Med-Surg telemetry FEN/GI: NPO DVT Prophylaxis: PT/OT: No Consults: Cardiology (2) Acute hyperglycemia: (3) DM2 (diabetes mellitus, type 2): (4) GERD (gastroesophageal reflux disease): (5) Anxiety: History of Present Illness Primary Care Provider: Lalito Pimentel MD 77-year-old woman with past medical history of CAD with MIs x3 (s/p RCA stent 11/2005, 08/2006; LAD, LCx stents 01/2006), DM2, GERD who presented to the ER with a complaint of chest pain, shortness of breath and dizziness x3 weeks. SOB, dizziness, chest pain aggravated by exertion. ROS + nausea, vomiting. In the ED, CBC was normal. BMP notable for glucose of 301. Magnesium of 1.5. EKG showed slight ST depression in leads V3 and V4. Initial troponin negative. CXR, CT head negative for acute process. Patient was placed on shelter monitor and magnesium was repleted x1 g. She received NovoLog x4 units as well for glucose of 226. On admission, patient confirms HPI. ROS+ SOB, dizziness (aggravated by head motion), nausea, chest pain radiating to left shoulder. She denies abdominal pain, headache, vomiting, diarrhea, constipation, recent illness, or vision changes. Allergies Allergy/AdvReac Type Severity Reaction Status Date / Time cephalexin Allergy Intermediate Rash and Verified 08/21/22 18:38 itchiness Cephalosporins Allergy Intermediate Rash and Verified 08/21/22 18:38 itchiness Sulfa (Sulfonamide Allergy Intermediate Hives Verified 08/21/22 18:38 Antibiotics) Home Medications Medication Instructions Recorded Confirmed Type linaclotide 145 mcg capsule 145 mcg PO QAM PRN Constipation 04/05/19 08/31/22 History (Linzess) pen needle, diabetic 32 gauge x 11/18/20 08/31/22 History " (BD Ultra-Fine [place] Pen Needle) famotidine 20 mg tablet 20 mg PO BID #180 tabs 05/07/21 08/31/22 Rx ondansetron HCl 4 mg tablet 4 mg PO Q8H PRN nausea and 06/24/21 08/31/22 Rx vomiting #30 tabs flash glucose scanning reader 06/26/21 08/31/22 History (FreeStyle Renan 2 Garner) flash glucose sensor (FreeStyle 06/26/21 08/31/22 History Renan 2 Sensor kit) blood sugar diagnostic (OneTouch #200 ea 12/30/21 01/16/23 Rx Verio test strips) duloxetine 30 mg capsule,delayed 30 mg PO QAM #90 caps 08/19/21 08/31/22 Rx release isosorbide mononitrate 30 mg 60 mg PO QAM #180 tabs 08/19/21 08/31/22 Rx tablet,extended release 24 hr aspirin 81 mg tablet,delayed 81 mg PO QAM 10/24/21 08/31/22 History release diclofenac sodium 1 % topical gel 2 g topical QID PRN Pain 10/31/21 08/31/22 History (Arthritis Pain (diclofenac)) Gvoke HypoPen 2-Pack 1 mg/0.2 mL 1 mg (0.2 mL) subcut .COMPLEX #0.4 11/03/21 08/31/22 Rx subcutaneous auto-injector mL (glucagon) ezetimibe 10 mg tablet (Zetia) 10 mg PO QAM #90 tabs 11/03/21 08/31/22 Rx buspirone 10 mg tablet 10 mg PO TID #270 tabs 11/06/21 08/31/22 Rx metformin 500 mg tablet 1,000 mg PO BID #120 tabs 11/07/21 08/31/22 Rx nitroglycerin 0.4 mg sublingual 0.4 mg sublingual UD PRN Chest 12/08/21 08/31/22 Rx tablet (Nitrostat) Pain #1 btl albuterol sulfate 90 mcg/actuation 2 inha inhalation QID PRN 01/10/22 08/31/22 Rx aerosol inhaler shortness of breath or wheezing #1 g benzonatate 200 mg capsule 200 mg PO TID PRN cough #30 caps 01/15/22 08/31/22 Rx fluticasone fur. 100 mcg-umeclid 1 inh inhalation DAILY #28 ea 02/11/22 08/31/22 Rx 62.5 mcg-vilant 25 mcg inhalat.powder (Trelegy Ellipta) metoprolol succinate 100 mg 100 mg PO QAM #90 tabs 02/11/22 08/31/22 Rx tablet,extended release 24 hr rosuvastatin 40 mg tablet 40 mg PO QAM #90 tabs 04/01/22 08/31/22 Rx lisinopril 10 mg tablet 10 mg PO QAM #90 tabs 09/29/22 01/16/23 Rx gabapentin 100 mg capsule 100 mg PO HS #30 caps 05/19/22 08/31/22 Rx pantoprazole 40 mg tablet,delayed 40 mg PO BID #30 tabs 05/19/22 08/31/22 Rx release alirocumab 75 mg/mL subcutaneous 75 mg subcut Q14D #2 mL 05/21/22 08/31/22 Rx pen injector (Praluent Pen) insulin aspart U-100 100 unit/mL 24 unit (0.24 mL) subcut DAILY #15 08/24/22 08/31/22 Rx (3 mL) subcutaneous pen (Novolog mL FlexPen U-100 Insulin aspart) insulin degludec 100 unit/mL (3 48 unit (0.48 mL) subcut QPM #15 mL 08/24/22 08/31/22 Rx mL) subcutaneous pen (Tresiba FlexTouch U-100 insulin) polyethylene glycol 3350 17 gram 17 g PO DAILY 30 days #30 ea 08/26/22 08/31/22 Rx oral powder packet (Miralax) cholecalciferol (vitamin D3) 25 1,000 unit PO QAM #90 tabs 08/28/22 08/31/22 Rx mcg (1,000 unit) capsule (Vitamin D3) Past Med/Surg History Medical History Acute non-ST elevation myocardial infarction (NSTEMI) 11/28/2021 had LA medical management and follow with dr abdullahi apt 02/09/2022 [place] esophagus CAD (coronary artery disease) s/p stents to RCA November 2005; s/p stents to LAD, LCx in January 2006; s/p stents to RCA in 08/2006 Cervical pain (neck) Chest pain chronic chest pain and cardiac is negative Chronic pain syndrome Depression Diabetes mellitus, type 2 IDDM Diabetic gastroparesis Diabetic peripheral neuropathy Dyslipidemia Folic acid deficiency GERD without esophagitis History of COVID-19 2020 - resolved IBS (irritable bowel syndrome) Lumbar spondylosis Myocardial Infarction LA- November 2005, January 2006, Aug 2006 3 total within an 8 month span--HX OF [address], FOLLOWS WITH DR. ABDULLAHI Vitamin B12 deficiency Surgical History [place] [facility] [place]--s/p stents to RCA November 2005; s/p stents to LAD, LCx in January 2006; s/p stents to RCA in 08/2006 History of cataract surgery BL History of cholecystectomy History of colonoscopy with polypectomy History of esophageal dilatation History of esophagogastroduodenoscopy (EGD) History of lumbar spinal fusion History of tooth extraction all teeth History of total hysterectomy with bilateral salpingo-oophorectomy (BSO) History of total right knee replacement (TKR) S/P coronary artery stent placement s/p stents to RCA November 2005; s/p stents to LAD, LCx in January 2006; s/p stents to RCA in 08/2006 Status post trigger finger release right thumb Family History Brother Myocardial infarction Anxiety Heart disease Hypertension Cancer Sister Family history of reaction to anesthesia difficulty waking Hypertension Heart disease Myocardial infarction Anxiety Cancer Diabetes Father Anxiety Heart disease Hypertension Mother Anxiety Hypertension Heart disease Unknown Cancer skin, GI Denies family history of Ovarian cancer Prostate cancer Breast cancer Colorectal cancer Stroke Social History Smoking Status: Former smoker Tobacco Type: Cigarettes Age Started Using Tobacco: 18; Age Quit Using Tobacco: 57; Cigarettes Per Day: 3 cigarettes a week; Second Hand Exposure: No; Hx Alcohol Use: No Hx Substance Use: No Preferred Language: Jordanian Communication Ability: Effective Visual Impairment: Limited Hearing Ability: Normal Middle School Band Teacher Required: No Beliefs That Will Affect Care: None marital status: / Current Living Situation: Alone Current Living Situation Comment: apartment building current occupational status: retired and disabled How many Children do You have: 3 Feels Safe at Home: Yes Childhood Exposure to Second-Hand Smoke: No caffeine: Yes (drinks coffee, diet pepsi occasionally ) Dental Care, Regularly: No Physical Activity Frequency: Does not Exercise Seatbelt Use: always Sunscreen Use: No Assistive Devices: Cane and Walker Review of Systems Review of Systems: All systems reviewed & are unremarkable except as noted in HPI & below Physical Exam Physical Exam: General: Alert, oriented, and interactive woman in mild distress. HEENT: Normocephalic, atraumatic. EOM intact. Good conjugate gaze. Nares patent. Moist mucosal membranes. Neck: Supple. No lymphadenopathy. Normal ROM. CV: Regular rate and rhythm. Normal S1 and S2. No murmurs gallops or rubs. Respiratory: Normal respiratory effort. Lungs clear to auscultation bilaterally. No crackles, rhonchi, or wheezes. Abdomen: Soft, nondistended abdomen. No bruits heard on auscultation. No tenderness to deep palpation. Extremities: Capillary refill <2 sec. 2+ dp equal bilaterally. No pedal edema. Neuro: Alert and oriented x3. Skin: Clean, dry, and intact. No rashes, bruises, or erythema. Results & Data Results & Data ([facility]) Vital Signs (Past 12 Hours) Vital Signs Temp Pulse Pulse Resp BP BP Pulse Ox 08/31/22 21:28 65 16 161/84 H 97 08/31/22 21:00 80 16 121/89 97 08/31/22 19:38 70 18 164/86 H 96 08/31/22 18:16 66 18 193/89 H 98 08/31/22 17:20 78 20 198/123 H 98 08/31/22 15:47 36.8 C 90 24 201/141 H 96 08/31/22 15:47 O2 Del Method 08/31/22 21:28 08/31/22 21:00 Room Air 08/31/22 19:38 Room Air 08/31/22 18:16 Room Air 08/31/22 17:20 Room Air 08/31/22 15:47 Room Air 08/31/22 15:47 Room Air Supervising Physician Co-Signing Physician Notes Attending addendum: I have physically seen this patient, have supervised the medical residents activities, and agree with the H&P unless as otherwise noted. Assessment and Plan: Left upper chest wall pain/CAD/status post PCI LAD, CX OM and RCA Pain improved with administration of lorazepam 0.5 IV and Lidoderm patch The patient will be admitted to telemetry for serial cardiac enzymes, serial EKG's, cardiac rhythm monitoring and a 2-D echocardiogram with Dopplers Continue usual medications: Aspirin, isosorbide mononitrate, lisinopril and metoprolol succinate Cardiology consult ordered Hyperlipidemia- Continue rosuvastatin GERD- Continue pantoprazole 40 mg twice daily and linaclotide 145 mcg daily as needed Diabetes mellitus- Continue insulin degludec, and NovoLog per sliding scale Remaining orders and notations as noted Resident Activity Tracking Resident Involvement: Resident Care Provided Care Provided: Adult Hospital Medicine (1) GERD (gastroesophageal reflux disease) Esophagitis presence: without esophagitis Qualified Code(s): K21.9 - Gastro- esophageal reflux disease without esophagitis
[2022-08-31] MEDS ORDERED: NITROGLYCERIN SL 0.4 MG/TAB TAB SL PRN (22:38)
[2022-08-31] MEDS ORDERED: MoRPHine SULFATE 2 MG/ML CARP IV PRN (22:38)
[2022-08-31] MEDS ORDERED: LORazepam 2 MG/1 ML VIAL IV PRN (23:00)
[2022-08-31 23:09] LABS: Phosphorus 3.4 mg/dl (2.5-4.9)
[2022-08-31] MEDS: MAGNESIUM SULFATE / D5W 1 GM/100 ML BAG IV SCH (23:28)
[2022-09-01] MEDS ORDERED: HEPARIN SOD (PORCINE) 1000 UNIT/ML IV ONE (00:05)
[2022-09-01] MEDS ORDERED: HEPARIN SODIUM/DEXTROSE 25,000 UNITS/500 ML BAG IV SCH (00:15)
[2022-09-01] MEDS: MAGNESIUM SULFATE / D5W 1 GM/100 ML BAG IV SCH (00:18)
[2022-09-01] MEDS ORDERED: ALBUTEROL HFA 8 GM INHALER INH PRN (00:29)
[2022-09-01] MEDS ORDERED: STAT IV Infusion **Titration per Protocol STA (00:29)
[2022-09-01] MEDS ORDERED: PHARMACY GLYCEMIC MGMT CONSULT PRN (00:29)
[2022-09-01] MEDS ORDERED: NITROPRUSSIDE SODIUM 50 MG in DEXTROSE 5% 500 ML IV SCH (00:29)
[2022-09-01] MEDS ORDERED: LANTUS PER UNIT CHARGE SQ ONE (00:29)
[2022-09-01] MEDS ORDERED: BENZONATATE 100 MG CAPSULE PO PRN (00:29)
[2022-09-01] MEDS ORDERED: LINACLOTIDE 145 MCG CAPSULE PO PRN (00:29)
[2022-09-01] MEDS: Heparin IV Adult Wt-Based Low-Dose WITH Bolus Protocol IV SCH ×3 (00:45→02:41)
[2022-09-01] MEDS ORDERED: MAGNESIUM SULFATE / D5W 1 GM/100 ML BAG IV STA (01:09)
[2022-09-01] MEDS ORDERED: GLUCAGON FOR INJ 1 MG VIAL IM PRN (06:00)
[2022-09-01] MEDS ORDERED: GLUCOSE 10 TAB/TUBE PO PRN (06:00)
[2022-09-01] MEDS ORDERED: CARBOHYDRATES FOR HYPOGLYCEMIA PO PRN (06:00)
[2022-09-01] MEDS ORDERED: GLUCOSE 40% GEL 15 GM TUBE PO PRN (06:00)
[2022-09-01] MEDS ORDERED: DEXTROSE 50% 50 ML SYRINGE IV PRN (06:00)
--- NOTE | 2022-09-01 06:36 | Electrocardiogram Report ---
Test Reason : Blood Pressure : / mmHG Vent. Rate : 095 BPM Atrial Rate : 095 BPM P-R Int : 152 ms QRS Dur : 068 ms QT Int : 358 ms P-R-T Axes : 057 016 070 degrees QTc Int : 449 ms Poor data quality, interpretation may be adversely affected Normal sinus rhythm Possible Left atrial enlargement Low voltage QRS Nonspecific ST abnormality Abnormal ECG When compared with ECG of 22-AUG-2022 14:48, Vent. rate has increased BY 41 BPM Confirmed by Deon Gonzalez ([id number]) on 09/01/2022 6:36:06 AM Referred By: Confirmed By:Deon Gonzalez
[2022-09-01 06:43] LABS: Acanthocytes 1+; Basophils # (auto) 0.05 K/uL (0-0.2); Basophils % (auto) 0.9 %; Eosinophils % (auto) 1.8 %; Hematocrit (blood only) 37.8 % (34.1-44.9); Hemoglobin 12.9 g/dl (12.0-16.0); Immature Granulocytes # (auto) 0.02 K/uL (0.00-0.02); Immature Granulocytes % (auto) 0.4 %; Lymphocytes # (auto) 1.87 K/uL (1.2-3.4); Lymphocytes % (auto) 32.7 %; Mean Corpuscular Hemoglobin 28.9 pg (25.0-34.0); Mean Corpuscular Hgb Conc 34.1 g/dL (32.0-36.0); Mean Corpuscular Volume 84.8 fL (80.0-100.0); Mean Platelet Volume 10.6 fL (9.4-12.3); Monocytes # (auto) 0.42 K/uL (0.24-0.82); Monocytes % (auto) 7.4 %; Neutrophils # (auto) 3.25 K/uL (1.4-6.5); Neutrophils % (auto) 56.8 %; Platelet Count 191 K/uL (130-400); RDW Coefficient of Variation 13.5 % (11.5-14.5); RDW Standard Deviation 41.8 fL (36.4-46.3); Red Blood Count 4.46 M/uL (3.93-5.22); White Blood Count 5.71 K/ul (4.8-10.8)
[2022-09-01 07:15] LABS: Albumin Globulin Ratio 1.3 (0.9-2); Albumin Level 3.5 gm/dl (3.4-5.0); BUN Creatinine Ratio 15.4 (10-20); Bilirubin,Total 0.4 mg/dl (0.2-1.0); Calcium 9.1 mg/dl (8.5-10.1); Chol HDL Ratio 4.1 (0-5); Creatinine Clr Calc Pharmacy 68.1 ml/min; Est GFR (African American) 100.7 ml/min; Est GFR (Non-African American) 86.8 ml/min; Globulin 2.6 gm/dl (2.5-4.0); Potassium 3.8 mmol/L (3.5-5.1); Total Protein 6.1 gm/dl (6.0-8.3)
[2022-09-01] MEDS: INSULIN ASPART PER UNIT SC SCH ×4 (08:33→21:00)
[2022-09-01] MEDS: ASPIRIN 81 MG ECTAB PO SCH (08:34)
[2022-09-01] MEDS: DULoxetine HCL 30 MG CAP PO SCH (08:34)
[2022-09-01] MEDS: busPIRone 5 MG TAB PO SCH ×3 (08:34→21:28)
[2022-09-01] MEDS: CHOLECALCIFEROL 1,000 UNITS 25 MCG TAB PO SCH (08:34)
[2022-09-01] MEDS: PANTOprazole 40 MG TAB PO SCH ×2 (08:35→21:30)
[2022-09-01] MEDS: ROSUVASTATIN CALCIUM 20 MG TAB PO SCH (08:35)
[2022-09-01] MEDS: FAMOTIDINE 20 MG TAB PO SCH ×2 (08:35→21:29)
[2022-09-01] MEDS: METOPROLOL SUCC 50MG EXT REL TAB PO SCH (08:35)
[2022-09-01] MEDS: lisinopril 10 MG TAB PO SCH (08:35)
[2022-09-01] MEDS: ISOSORBIDE MONO EXTENDED REL 60 MG TABCR PO SCH (08:36)
[2022-09-01] MEDS: UMECLIDINIUM/VILANTEROL 62.5/25MCG 7 PUFFS/INHALER INH SCH (08:37)
[2022-09-01] MEDS: FLUTICASONE FUROATE 100MCG 14 PUFFS/INHALER INH SCH (08:38)
[2022-09-01] MEDS: POLYETHYLENE (MIRALAX) 17 GM PACK PO SCH (08:44)
[2022-09-01] MEDS: LIDOCAINE 5% 1 PATCH TD SCH (08:44)
--- NOTE | 2022-09-01 10:09 | Medical Student Progress Note ---
Date of Service September 01, 2022 Assessment & Plan (1) Chest pain: Plan: 77-year-old woman with past medical history of CAD with MIs x3 (s/p RCA stent 11/2005, 08/2006; LAD, LCx stents 01/2006), DM2, GERD presented to the ER with a complaint of chest pain, shortness of breath and dizziness x3 weeks aggravated by exertion with accompanied nausea and vomiting. Patient was admitted for ACS rule out. Chest pain: -History of CAD, multiple MIs, with acute chest pain with radiation to left anterior/flank rib cage. - Recent echo 08/21/2022: EF = 65-70% with no wall motion abnormality -Troponin negative x2, unremarkable CXR -EKG showing nonspecific ST abnormalities with Hypomagnesemia of 1.5. -On-call cardiologis recommended admission for observation, heparin anticoagulation, holding home Imdur for nitroprusside drip. -Chest pain improved following administration of topical lidocaine, lorazepam. Repeat high-sensitivity troponin also negative. Subsequently discontinued heparin anticoagulation, nitroprusside drip, following discussion with night attending. -Currently on telemetry. -Cardiology consulted. Will be made NPO overnight in case cardiac intervention is planned -Continue home Imdur, ezetimibe, rosuvastatin, lisinopril, metoprolol, aspirin, as needed nitrate -As needed Ativan, Lidoderm chest pain (2) DM2 (diabetes mellitus, type 2): Plan: -Poorly controlled: hemoglobin A1c 12.6 on 08/22/2022 with glucose of 226 on admission. -Current home regimen of metformin, and insulin (48 units of basal qpm, 24 units of NovoLog). -Received 4 units Novolin in ED. Gave additional 20 units of glargine on admission. -N.p.o., as above -Recommend outpatient follow-up with PCP at discharge for tighter glycemic control (3) GERD (gastroesophageal reflux disease): Plan: Continue home pantoprazole Esophagitis presence: without esophagitis Qualified Code(s): K21.9 - Gastro-esophageal reflux disease without esophagitis (4) Acute hyperglycemia: Plan: -Continue monitoring. Not symptomatic at this time. Plan Code: DNR/DNI Dispo:Med-Surg telemetry FEN/GI:Heart healthy. NPO after midnight DVT Prophylaxis:SCID PT/OT:No Consults:Cardiology Admission and Anticipated Discharge Date Admission Date: August 31, 2022 Supervising Attestation I personally examined the patient and verified all hata[place] points of history and exam, discussed case, and agree with decision making with Suman JAMES. pt sleeping every time i try to see her on multiple occassions. discussed with admitting physician and cardiology - allowed pt to rest vitals noted nad heent nc at mmm breathing unlabored no accessory muscles good effort skin no rashes no pallor or icterus CP - noncardiac. supportive care. otherwise as above. allow to rest. Subjective 77-year-old woman with past medical history of CAD with MIs x3 (s/p RCA stent 11/2005, 08/2006; LAD, LCx stents 01/2006), DM2, GERD presented to the ER with a complaint of chest pain, shortness of breath and dizziness x3 weeks aggravated by exertion with accompanied nausea and vomiting. ED course was notable for slight ST depression in V3 and V4 leads with negative initial troponins, and unremarkable CXR and CT head. Labs were notable for a magnesium of 1.5 and glucose of 301 which were treated with mag x1g and Novolog x4 units, respectively. Patient has been stable and is being monitored on quality assurance monitor chassis. Today, the patient states that she had an episode of left sided chest pain radiating to the left lower rib cage at rest last night. Pain resolved on its own with no new associated symptoms. Patient states she has had issues with dizziness for the last 2-3 months. Dizziness is always present but worsens with turning in bed, rising out of bed, or any movement in general. Dizziness improves with rest, lying still, water intake, and tylenol. Dizziness is assoc iated with nausea and vomiting which improve with Zofran. Patient denies any recent changes in medications or diet related to onset of dizziness symptoms. Patient is currently experiencing a bitemporal headache unchanged from yesterday. Patient had one episode of emesis this morning associated with nausea and dizziness. Patient has no other acute concerns today. Review of Systems Eyes: no diplopia Ear, Nose, Mouth, Throat: + dizziness Respiratory: no dyspnea Cardiovascular: as per Subjective / HPI Gastrointestinal: + nausea and + vomiting; no abdominal pain, no constipation and no diarrhea/loose stools Genitourinary: no dysuria Neurologic: + headache(s); no tingling and no numbness Psychiatric: Stable mood Physical Exam Respiratory: normal respiratory effort, lungs clear to auscultation does not use accessory muscles Cardiovascular: Rate/Rhythm: regular rate and regular rhythm Heart Sounds: no click, no gallop, no murmur and no cardiac rub Vessels: no carotid bruit Extremities: no pedal edema Gastrointestinal (Abdomen): normal bowel sounds, soft, nontender, no hepatosplenomegaly Musculoskeletal: Localized left sided rib pain: Superior border being 5th intercostal space, inferior border 8th intercostal space, medial border sterum, lateral border midaxillary line. Pain is the same in quality and location as the chest pain she experienced last night. Neurologic: No Numbness or tingling in bilateral lower extremities Psychiatric: Orientation: alert and oriented x 3 Results & Data ([facility]) Vital Signs (Past 12 Hours) Vital Signs Pulse Pulse Resp BP BP Pulse Ox O2 Del Method 09/01/22 08:45 Room Air 09/01/22 06:59 66 16 176/100 H 100 Nasal Cannula 09/01/22 06:31 59 L 12 159/84 H 100 Room Air 09/01/22 06:01 68 16 186/90 H 100 Room Air 09/01/22 04:45 61 12 148/79 H 100 Room Air 09/01/22 04:30 61 13 136/78 100 Room Air 09/01/22 04:15 60 12 153/88 H 100 Room Air 09/01/22 04:00 62 13 161/96 H 100 Room Air 09/01/22 03:45 63 13 144/90 H 100 Room Air 09/01/22 03:30 64 12 166/87 H 100 Room Air 09/01/22 03:15 66 16 164/93 H 99 Room Air 09/01/22 02:30 69 13 158/95 H 99 Room Air 09/01/22 02:15 71 14 165/96 H 100 Room Air 09/01/22 02:00 71 12 170/88 H 99 Room Air 09/01/22 01:45 71 12 187/94 H 99 Room Air 09/01/22 01:30 82 13 161/92 H 99 Room Air 09/01/22 01:15 82 13 152/84 H 99 Room Air 09/01/22 01:00 82 12 155/78 H 99 Room Air 09/01/22 00:45 83 13 156/84 H 99 09/01/22 00:30 80 13 140/84 99 Room Air 09/01/22 00:15 71 12 162/86 H 99 Room Air 09/01/22 00:00 74 13 182/90 H 99 Room Air 08/31/22 23:46 72 18 175/92 H 98 Room Air 08/31/22 23:01 83 27 H 176/100 H 100 Room Air O2 Flow Rate 09/01/22 08:45 09/01/22 06:59 2 09/01/22 06:31 09/01/22 06:01 09/01/22 04:45 09/01/22 04:30 09/01/22 04:15 09/01/22 04:00 09/01/22 03:45 09/01/22 03:30 09/01/22 03:15 09/01/22 02:30 09/01/22 02:15 09/01/22 02:00 09/01/22 01:45 09/01/22 01:30 09/01/22 01:15 09/01/22 01:00 09/01/22 00:45 09/01/22 00:30 09/01/22 00:15 09/01/22 00:00 08/31/22 23:46 08/31/22 23:01
--- NOTE | 2022-09-01 10:18 | Pharmacy Report ---
Pharmacy Glycemic Short Note 2 - Date of Service September 01, 2022 - Glycemic Short BSG Results (Last 24 hours): 08/31/22 08/31/22 09/01/22 16:33 19:18 01:32 Glucose 301 H* POC Glucose 226 H 285 H 09/01/22 09/01/22 05:18 07:24 Glucose 271 H POC Glucose 215 H OUTPATIENT ANTIDIABETIC REGIMEN: * Novolog 6 units SC with breakfast, 8 units SC with lunch, 10 units SC with dinner + SSI (TDD 40 units) * Tresiba 15 units SC qAM, 48 units SC qPM * Metformin 1000 mg PO BIDM HbA1c: 12.6% (08/22/22) ASSESSMENT: * CS is a 77 year old female who presented to [facility] ED on 08/31 with CC of chest pain, shortness of breath, and dizziness * Troponin negative, nonspecific ST abnormalities on EKG, cardiology consulted * PMH includes hx of CAD, multiple MIs, HTN, uncontrolled T2DM, and dyslipidemia * BSGs elevated at time of presentation, received IV insulin bolus + 20 units of Lantus * Since patient is currently NPO, will hold off on further basal for now, but will reassess later today * Plan is for reduced basal dose this evening * ~100 units of insulin/day as an outpatient with very poor control based on A1c PLAN FOR INPATIENT GLYCEMIC CONTROL: * Hold outpatient oral diabetes medications * Basal insulin - reduced dose from outpatient while NPO * Lantus 20-40 units SC HS (see EHR for details) * Bolus insulin * NovoLog per scale ACHS or Q6hrs while NPO * Goal Range: Low 110 mg/dL - High 140 mg/dL * Correction Factor: 15 mg/dL/unit * Nutritional / Prandial insulin per carb ratio of 1 unit per 6 grams CHO consumed
[2022-09-01] MEDS: ONDANSETRON INJ 2 MG/ML 2 ML VIAL IV PRN ×2 (10:52→14:24)
[2022-09-01] MEDS ORDERED: ACETAMINOPHEN 1,000 MG/100 ML VIAL IV PRN (12:58)
[2022-09-01] MEDS ORDERED: Nursing to Pharmacy Communication SCH (14:45)
--- NOTE | 2022-09-01 17:08 | Cardiology Consultation ---
Date of Consultation September 01, 2022 Assessment & Plan (1) Chest pain: (2) CAD (coronary artery disease): (3) S/P coronary artery stent placement: (4) HTN (hypertension): (5) Dyslipidemia: Plan ASSESSMENT/PLAN: 1. Chest pain: Atypical. Reproducible and tender to palpation. Not consistent with ischemic heart disease. Constant pain relieved by Lidoderm patch and high- sensitivity troponin negative x2. Will defer noncardiac chest discomfort to primary hospitalist service. Chest pain overall much improved. Symmetrical pulses. 2. CAD s/p PCI (LAD, Cx OM, RCA): No angina. Severe multivessel CAD for which medical therapy has been recommended. No angina. Moncure to be unsuitable candidate for CABG due to lack of suitable targets. Continue aspirin, beta- stephani, ANNA-inhibitor, high-intensity statin therapy. 3. Hypertension:Blood pressure elevated on presentation but most recently normotensive. Continue current regimen. 4. Dyslipidemia: Continue high-intensity statin therapy. Continue PCSK9 inhibitor. She is also on Zetia. Lipid management as per her primary environmental field professional. LDL significantly improved on current aggressive therapy. 5. Headache/dizziness: As per primary service. CT head reported as unremarkable. 6. Disposition: Patient care communicated with Dr. Munoz of the primary hospitalist service. Continue to follow with Dr Abdullahi in the outpatient setting. Cardiology will sign off at this time. Please call with other questions or co ncerns. Thank you for allowing me to participate in the care of your patient. Please call for any other questions or concerns. Sincerely, Master Gonzalez M.D. History of Present Illness Reason for Consultation: "chest pain/acs rule out" Requesting Physician: Yamel Moe Attending Physician: Fadi Munoz DO History of Present Illness Ms. Rosas is a very pleasant 77-year-old female with a history significant for CAD s/p PCI (LAD, Cx, RCA), type 2 diabetes, dyslipidemia, and hypertension. 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 Her primary environmental field professional is Dr. Abdullahi. She has had myocardial infarction in the past and described angina as sharp substernal chest pain that radiates to the left arm. She has had the following studies/procedures: 1. [place] [facility] [place] RCA 90%. Distal RCA 70%. PCI x2 of RCA. 2. Cardiac [place] [facility] [place] Mid LAD 80% underwent 2.25 x 18 mm be EMS. Circumflex OM 80% underwent 2.5 x 12 mm Taxus. 3. Cardiac catheterization August 2006 [facility] [place] Severe proximal RCA stenosis underwent PCI. 4. Dobutamine stress echo 08/02/2020: Negative for ischemia 98% MPHR. 5. Echo [facility] 10/25/21: Normal LV size, wall motion, systolic function. EF 55-60%. No significant valvular abnormalities. 6. Cardiac cath 11/28/2021: Distal LM 30 to 40%. Ostial LAD 40%. Mid LAD stent luminal irregularities. Mid LAD 70% followed by bifurcation of small to medium diagonal and another 80 to 90% within the mid LAD. Distal LAD long segment 70 to 80%. Mid to distal LAD small in caliber and diffusely diseased. Small caliber and severely diseased circumflex. Proximal to mid circumflex long area at 90%. OM 2 proximal 90%. OM 2 stent subtotal occlusion within the distal stent margin. Left to left collaterals to OM 2. Dominant RCA. Proximal/mid/distal RCA stents with diffuse mild to moderate in-stent restenosis including 70 to 80% stenosis within the mid RCA stent. Just distal to stent margin, distal RCA 70 to 80%. Distal RCA 80 to 90% at bifurcation of PDA and PL. Minimal right to left collaterals. LVEDP 12. No . CT surgery reviewed images and no suitable targets for CABG. 7. Echo 08/22/2022: Normal LV size, wall motion, systolic function. EF 65 to 70%. Moderate LVH. Mild MR. Normal RVSP. She was hospitalized on 08/31/2022 with chest pain. Chest pain has been constant and was severe on the night of presentation. It is a left-sided sharp chest discomfort to the left shoulder. She states it is different than prior angina. It is worsened with twisting of her upper body. The chest pain significantly improves if lays supine, and remains still. She has had chest discomfort for most of the past 1 week. Initially, it appears as though heparin drip and nitroprusside drip was being arranged by the hospitalist service but she received Lidoderm patch and Ativan and her chest discomfort significantly improved. 2 high-sensitivity troponins remained negative despite ongoing severe and constant chest discomfort. Her biggest issue currently is headache and dizziness. She states that the chest pain is still present but much more mild. She feels a dizziness as though the room is spinning when she moves. She has had a headache for most of the past 3 days. Her headache is severe enough that she vomits at times. She has been avoiding eating since yesterday morning for breakfast. She denies diarrhea, melena, hematochezia, hematuria, edema, shortness of breath, syncope, near syncope, or palpitations. At home she uses a walker and a cane for ambulation. She has not had any recent exertional angina. Review of systems: As above. Review of systems otherwise negative/unrema rkable. Family history:Mother at the age of 56. Father had CAD and hypertension. Seven brothers all from [place]. Has 4 sisters, 2 of which with [place]. Social history:She quit smoking approximately 50 years ago after 10 pack years. No significant alcohol. She was 3 times; x2 and x1. She lives alone. If unable to make her own decisions, she wishes Franck Ortega (friend) to make decisions for her. She has 4 children but states that they are not significantly in her life. She is retired. She was alone in her hospital room. Allergies Allergy/AdvReac Type Severity Reaction Status Date / Time cephalexin Allergy Intermediate Rash and Verified 08/21/22 18:38 itchiness Cephalosporins Allergy Intermediate Rash and Verified 08/21/22 18:38 itchiness Sulfa (Sulfonamide Allergy Intermediate Hives Verified 08/21/22 18:38 Antibiotics) Home Medications Medication Instructions Recorded Confirmed Type linaclotide 145 mcg capsule 145 mcg PO QAM PRN Constipation 04/05/19 08/31/22 History (Linzess) pen needle, diabetic 32 gauge x 11/18/20 08/31/22 History " (BD Ultra-Fine [place] Pen Needle) famotidine 20 mg tablet 20 mg PO BID #180 tabs 05/07/21 08/31/22 Rx ondansetron HCl 4 mg tablet 4 mg PO Q8H PRN nausea and 06/24/21 08/31/22 Rx vomiting #30 tabs flash glucose scanning reader 06/26/21 08/31/22 History (FreeStyle Renan 2 [place]) flash glucose sensor (FreeStyle 06/26/21 08/31/22 History Renan 2 Sensor kit) blood sugar diagnostic (OneTouch #200 ea 08/14/21 08/31/22 Rx Verio test strips) duloxetine 30 mg capsule,delayed 30 mg PO QAM #90 caps 08/19/21 08/31/22 Rx release isosorbide mononitrate 30 mg 60 mg PO QAM #180 tabs 08/19/21 08/31/22 Rx tablet,extended release 24 hr aspirin 81 mg tablet,delayed 81 mg PO QAM 10/24/21 08/31/22 History release diclofenac sodium 1 % topical gel 2 g topical QID PRN Pain 10/31/21 08/31/22 History (Arthritis Pain (diclofenac)) Gvoke HypoPen 2-Pack 1 mg/0.2 mL 1 mg (0.2 mL) subcut .COMPLEX #0.4 11/03/21 08/31/22 Rx subcutaneous auto-injector mL (glucagon) ezetimibe 10 mg tablet (Zetia) 10 mg PO QAM #90 tabs 11/03/21 08/31/22 Rx buspirone 10 mg tablet 10 mg PO TID #270 tabs 11/06/21 08/31/22 Rx metformin 500 mg tablet 1,000 mg PO BID #120 tabs 11/07/21 08/31/22 Rx nitroglycerin 0.4 mg sublingual 0.4 mg sublingual UD PRN Chest 12/08/21 08/31/22 Rx tablet (Nitrostat) Pain #1 btl albuterol sulfate 90 mcg/actuation 2 inha inhalation QID PRN 01/10/22 08/31/22 Rx aerosol inhaler shortness of breath or wheezing #1 g benzonatate 200 mg capsule 200 mg PO TID PRN cough #30 caps 01/15/22 08/31/22 Rx fluticasone fur. 100 mcg-umeclid 1 inh inhalation DAILY #28 ea 02/11/22 08/31/22 Rx 62.5 mcg-vilant 25 mcg inhalat.powder (Trelegy Ellipta) metoprolol succinate 100 mg 100 mg PO QAM #90 tabs 02/11/22 08/31/22 Rx tablet,extended release 24 hr rosuvastatin 40 mg tablet 40 mg PO QAM #90 tabs 04/01/22 08/31/22 Rx lisinopril 10 mg tablet 10 mg PO QAM #90 tabs 05/14/22 08/31/22 Rx gabapentin 100 mg capsule 100 mg PO HS #30 caps 05/19/22 08/31/22 Rx pantoprazole 40 mg tablet,delayed 40 mg PO BID #30 tabs 05/19/22 08/31/22 Rx release alirocumab 75 mg/mL subcutaneous 75 mg subcut Q14D #2 mL 05/21/22 08/31/22 Rx pen injector (Praluent Pen) insulin aspart U-100 100 unit/mL 24 unit (0.24 mL) subcut DAILY #15 08/24/22 08/31/22 Rx (3 mL) subcutaneous pen (Novolog mL FlexPen U-100 Insulin aspart) insulin degludec 100 unit/mL (3 48 unit (0.48 mL) subcut QPM #15 mL 08/24/22 08/31/22 Rx mL) subcutaneous pen (Tresiba FlexTouch U-100 insulin) polyethylene glycol 3350 17 gram 17 g PO DAILY 30 days #30 ea 08/26/22 08/31/22 Rx oral powder packet (Miralax) cholecalciferol (vitamin D3) 25 1,000 unit PO QAM #90 tabs 08/28/22 08/31/22 Rx mcg (1,000 unit) capsule (Vitamin D3) Patient History Medical History Acute non-ST elevation myocardial infarction (NSTEMI) 11/28/2021 had [place] medical management and follow with dr abdullahi apt 02/09/2022 Mckeon esophagus CAD (coronary artery disease) s/p stents to RCA November 2005; s/p stents to LAD, LCx in January 2006; s/p stents to RCA in 08/2006 Cervical pain (neck) Chest pain chronic chest pain and cardiac is negative Chronic pain syndrome Depression Diabetes mellitus, type 2 IDDM Diabetic gastroparesis Diabetic peripheral neuropathy Dyslipidemia Folic acid deficiency GERD without esophagitis History of COVID-2020 - resolved IBS (irritable bowel syndrome) Lumbar spondylosis Myocardial Infarction [place]- November 2005, January 2006, Aug 2006 3 total within an 8 month span--[place] [facility] [place] DR. ABDULLAHI Vitamin B12 deficiency Surgical History [place] of cardiac [place] [facility] [place]--s/p stents to RCA November 2005; s/p stents to LAD, LCx in January 2006; s/p stents to RCA in 08/2006 History of cataract surgery BL History of cholecystectomy History of colonoscopy with polypectomy History of esophageal dilatation History of esophagogastroduodenoscopy (EGD) History of lumbar spinal fusion History of tooth extraction all teeth History of total hysterectomy with bilateral salpingo-oophorectomy (BSO) History of total right knee replacement (TKR) S/P coronary artery stent placement s/p stents to RCA November 2005; s/p stents to LAD, LCx in January 2006; s/p stents to RCA in 08/2006 Status post trigger finger release right thumb Family History Brother Myocardial infarction Anxiety Heart disease Hypertension Cancer Sister Family history of reaction to anesthesia difficulty waking Hypertension Heart disease Myocardial infarction Anxiety Cancer Diabetes Father Anxiety Heart disease Hypertension Mother Anxiety Hypertension Heart disease Unknown Cancer skin, GI Denies family history of Ovarian cancer Prostate cancer Breast cancer Colorectal cancer Stroke Social History Smoking Status: Former smoker Tobacco Type: Cigarettes Age Started Using Tobacco: 18; Age Quit Using Tobacco: 57; Cigarettes Per Day: 3 cigarettes a week; Second Hand Exposure: No; Hx Alcohol Use: No Hx Substance Use: No Preferred Language: Grenadian Communication Ability: Effective Visual Impairment: Limited Hearing Ability: Normal [employer] Required: No Beliefs That Will Affect Care: None marital status: / Current Living Situation: Alone Current Living Situation Comment: apartment building current occupational status: retired and disabled How many Children do You have: 3 Feels Safe at Home: Yes Childhood Exposure to Second-Hand Smoke: No caffeine: Yes (drinks coffee, diet pepsi occasionally ) Dental Care, Regularly: No Physical Activity Frequency: Does not Exercise Seatbelt Use: always Sunscreen Use: No Assistive Devices: Cane and Walker Physical Exam Physical Exam: Gen.: No acute distress. Alert and oriented. HEENT: Anicteric sclera. Neck: No JVD. No bruits. Normal carotid upstrokes bilaterally. Cardiac: PMI was nondisplaced. No ventricular heave. Regular. Normal S1-S2. No murmurs, rubs, or gallops. Pulmonary: Clear to auscultation bilaterally without wheezes, rales, or rhonchi. Abdomen: Soft, nontender, nondistended, with normoactive bowel sounds. No bruits noted. Extremities: 2+ radial pulses bilaterally. 2+ posterior tibialis pulses bilaterally. No significant edema. No cyanosis. Psychiatric: Affect appears appropriate. Chest: Tender to palpation along the left lateral chest, reproducing her chest discomfort as noted above in HPI. No palpable mass and no visualized rash. Results & Data ([facility]) Vital Signs (Past 12 Hours) Vital Signs Temp Pulse Pulse Resp BP BP Pulse Ox 09/01/22 12:35 120/75 09/01/22 11:18 09/01/22 11:18 36.4 C L 78 18 145/91 H 100 09/01/22 08:45 09/01/22 06:59 66 16 176/100 H 100 09/01/22 06:31 59 L 12 159/84 H 100 09/01/22 06:01 68 16 186/90 H 100 O2 Del Method O2 Flow Rate 09/01/22 12:35 09/01/22 11:18 Room Air 09/01/22 11:18 Room Air 09/01/22 08:45 Room Air 09/01/22 06:59 Nasal Cannula 2 09/01/22 06:31 Room Air 09/01/22 06:01 Room Air Laboratory Results Laboratory Results - last 24 hr 08/31/22 08/31/22 08/31/22 16:33 19:18 21:19 WBC RBC Hgb Hct MCV MCH MCHC RDW Std Deviation RDW Coeff of Tino Plt Count MPV Immature Gran % (Auto) Neut % (Auto) Lymph % (Auto) [place] % (Auto) Eos % (Auto) Baso % (Auto) Neut # (Auto) Lymph # (Auto) [place] # (Auto) Eos # (Auto) Baso # (Auto) Immature Gran # (Auto) Acanthocytes (Spur) Sodium 137 Potassium 3.9 Chloride 103 Carbon Dioxide 29 Anion Gap 5 BUN 12 Creatinine 0.82 Est Cr Clr Drug Dosing 54.0 Est GFR ( Amer) 81.1 Est GFR (Non-Af Amer) 70.0 BUN/Creatinine Ratio 14.6 Glucose 301 H* POC Glucose 226 H Calcium 9.2 Phosphorus 3.4 Magnesium 1.5 L Total Bilirubin 0.3 AST 15 ALT 19 Alkaline Phosphatase 71 Troponin I High Sens 6.7 Total Protein 6.5 Albumin 3.6 Globulin 2.9 Albumin/Globulin Ratio 1.2 Triglycerides Cholesterol LDL Cholesterol, Calc VLDL Cholesterol, Calc HDL Cholesterol Cholesterol/HDL Ratio Lipase 18 TSH SARS-CoV-2, RNA, NAAT NEGATIVE 08/31/22 09/01/22 09/01/22 23:07 01:32 05:18 WBC 5.71 RBC 4.46 Hgb 12.9 Hct 37.8 MCV 84.8 MCH 28.9 MCHC 34.1 RDW Std Deviation 41.8 RDW Coeff of Tino 13.5 Plt Count 191 MPV 10.6 Immature Gran % (Auto) 0.4 Neut % (Auto) 56.8 Lymph % (Auto) 32.7 [place] % (Auto) 7.4 Eos % (Auto) 1.8 Baso % (Auto) 0.9 Neut # (Auto) 3.25 Lymph # (Auto) 1.87 [place] # (Auto) 0.42 Eos # (Auto) 0.10 Baso # (Auto) 0.05 Immature Gran # (Auto) 0.02 Acanthocytes (Spur) 1+ Sodium Potassium Chloride Carbon Dioxide Anion Gap BUN Creatinine Est Cr Clr Drug Dosing Est GFR ( Amer) Est GFR (Non-Af Amer) BUN/Creatinine Ratio Glucose POC Glucose 285 H Calcium Phosphorus Magnesium Total Bilirubin AST ALT Alkaline Phosphatase Troponin I High Sens 7.3 Total Protein Albumin Globulin Albumin/Globulin Ratio Triglycerides Cholesterol LDL Cholesterol, Calc VLDL Cholesterol, Calc HDL Cholesterol Cholesterol/HDL Ratio Lipase TSH SARS-CoV-2, RNA, NAAT 09/01/22 09/01/22 09/01/22 05:18 05:18 07:24 WBC RBC Hgb Hct MCV MCH MCHC RDW Std Deviation RDW Coeff of Tino Plt Count MPV Immature Gran % (Auto) Neut % (Auto) Lymph % (Auto) [place] % (Auto) Eos % (Auto) Baso % (Auto) Neut # (Auto) Lymph # (Auto) [place] # (Auto) Eos # (Auto) Baso # (Auto) Immature Gran # (Auto) Acanthocytes (Spur) Sodium 135 L Potassium 3.8 Chloride 103 Carbon Dioxide 25 Anion Gap 7 BUN 10 Creatinine 0.65 Est Cr Clr Drug Dosing 68.1 Est GFR ( Amer) 100.7 Est GFR (Non-Af Amer) 86.8 BUN/Creatinine Ratio 15.4 Glucose 271 H POC Glucose 215 H Calcium 9.1 Phosphorus Magnesium Total Bilirubin 0.4 AST 15 ALT 17 Alkaline Phosphatase 68 Troponin I High Sens Total Protein 6.1 Albumin 3.5 Globulin 2.6 Albumin/Globulin Ratio 1.3 Triglycerides 118 Cholesterol 130 LDL Cholesterol, Calc 74 VLDL Cholesterol, Calc 24 HDL Cholesterol 32 Cholesterol/HDL Ratio 4.1 Lipase TSH 2.449 SARS-CoV-2, RNA, NAAT 09/01/22 09/01/22 12:07 16:59 WBC RBC Hgb Hct MCV MCH MCHC RDW Std Deviation RDW Coeff of Tino Plt Count MPV Immature Gran % (Auto) Neut % (Auto) Lymph % (Auto) [place] % (Auto) Eos % (Auto) Baso % (Auto) Neut # (Auto) Lymph # (Auto) [place] # (Auto) Eos # (Auto) Baso # (Auto) Immature Gran # (Auto) Acanthocytes (Spur) Sodium Potassium Chloride Carbon Dioxide Anion Gap BUN Creatinine Est Cr Clr Drug Dosing Est GFR ( Amer) Est GFR (Non-Af Amer) BUN/Creatinine Ratio Glucose POC Glucose 213 H 194 H Calcium Phosphorus Magnesium Total Bilirubin AST ALT Alkaline Phosphatase Troponin I High Sens Total Protein Albumin Globulin Albumin/Globulin Ratio Triglycerides Cholesterol LDL Cholesterol, Calc VLDL Cholesterol, Calc HDL Cholesterol Cholesterol/HDL Ratio Lipase TSH SARS-CoV-2, RNA, NAAT Diagnostic Findings CT head 08/31/2019: No acute intracranial hemorrhage. No acute territorial infarction or other acute intracranial disease process per radiology. Chest x-ray 08/31/2022: Images are unavailable for review. No acute process per radiology. Echo report reviewed as noted above in HPI. Cardiac catheterization report reviewed as noted above in HPI. History and physical from 08/31/2022 reviewed. Cardiology visit from 05/21/2022 reviewed. Telemetry personally reviewed: Sinus rhythm. No arrhythmia. ECG personally reviewed from 08/31/2022 at 1541: NSR [address] abnormality. Medications Administered Current Inpatient Medications Albuterol (Albuterol Hfa 8 Gm Inhaler) 2 puffs INH QID PRN PRN Reason: shortness of breath or wheezing Stop: 10/01/22 00:28 Aspirin (Aspirin 81 Mg Ectab) 81 mg PO QAM [facility] Stop: 10/01/22 08:59 Last Admin: 09/01/22 08:34 Dose: 81 mg Benzonatate (Benzonatate 100 Mg Capsule) 200 mg PO TID PRN PRN Reason: cough Stop: 10/01/22 00:28 Buspirone HCl (Buspirone 5 Mg Tab) 10 mg PO TID [facility] Stop: 10/01/22 08:59 Last Admin: 09/01/22 13:44 Dose: 10 mg Dextrose (Dextrose 50% 50 Ml Syringe) 25 - 50 ml IV UD PRN; Protocol PRN Reason: Hypoglycemia Protocol Stop: 10/01/22 05:59 Duloxetine HCl (Duloxetine Hcl 30 Mg Cap) 30 mg PO QAM [facility] Stop: 10/01/22 08:59 Last Admin: 09/01/22 08:34 Dose: 30 mg Famotidine (Famotidine 20 Mg Tab) 20 mg PO BID [facility] Stop: 10/01/22 08:59 Last Admin: 09/01/22 08:35 Dose: 20 mg Fluticasone Furoate (Fluticasone Furoate 100mcg 14 Puffs/Inhaler) 1 puffs INH DAILY [facility] Stop: 10/01/22 08:59 Last Admin: 09/01/22 08:38 Dose: 1 puffs Gabapentin (Gabapentin 100 Mg Cap) 100 mg PO HS [facility] Stop: 10/01/22 20:59 Glucagon (Glucagon For Inj 1 Mg Vial) 1 mg IM UD PRN; Protocol PRN Reason: Hypoglycemia Protocol Stop: 10/01/22 05:59 Glucose (Glucose 40% Gel 15 Gm Tube) 15 - 30 gm PO UD PRN; Protocol PRN Reason: Hypoglycemia Protocol Stop: 10/01/22 05:59 Glucose (Glucose 10 Tab/Tube) 4 - 8 tab PO UD PRN; Protocol PRN Reason: Hypoglycemia Protocol Stop: 10/01/22 05:59 Acetaminophen (Ofirmev) 1,000 mg in 100 mls @ 400 mls/hr IV Q8H PRN PRN Reason: Pain Stop: 09/04/22 12:57 Last Infusion: 09/01/22 14:27 Dose: Infused Insulin Aspart (Insulin Aspart Per Unit) 0 units SC [facility] Stop: 10/01/22 05:59 Insulin Glargine (Lantus Per Unit Charge) 0 units SQ [facility]; Protocol Stop: 10/01/22 20:59 Isosorbide Mononitrate (Isosorbide [place] Extended Rel 60 Mg Tabcr) 60 mg PO DAILY [facility] Stop: 10/01/22 08:59 Last Admin: 09/01/22 08:36 Dose: 60 mg Lidocaine (L[facility]ocaine 5% 1 Patch) [facility]: 10/01/22 08:59 Last Admin: 09/01/22 08:44 Dose: Not Given Linaclotide (Linaclotide 145 Mcg Capsule) 145 mcg PO QA PRN PRN Reason: Constipation Stop: 10/01/22 00:28 Lisinopril (Lisinopril 10 Mg Tab) 10 mg PO [facility] Stop: 10/01/22 08:59 Last Admin: 09/01/22 08:35 Dose: 10 mg Lorazepam (Lorazepam 2 Mg/1 Ml Vial) 0.5 mg IV Q8H PRN PRN Reason: Anxiety/Agitation Stop: 09/30/22 22:59 Last Admin: 08/31/22 23:55 Dose: 0.5 mg Metoprolol Succinate (Metoprolol Succ 50mg Ext Rel Tab) 100 mg PO [facility] Stop: 10/01/22 08:59 Last Admin: 09/01/22 08:35 Dose: 100 mg Miscellaneous (Remove Lidoderm Patch) 1 each N/A DAILY@2100 [facility] Stop: 10/01/22 20:59 Miscellaneous (Carbohydrates For Hypoglycemia ) 15 - 30 gm PO UD PRN PRN Reason: Hypoglycemia Treatment Stop: 10/01/22 05:59 Miscellaneous Information (Pharmacy Glycemic Mgmt Consult) 1 each N/A UD PRN; Protocol PRN Reason: Consult Stop: 10/01/22 00:28 Morphine Sulfate (Morphine Sulfate 2 Mg/Ml Carp) 2 mg IV Q30M PRN PRN Reason: Chest Pain Stop: 09/14/22 22:37 Nitroglycerin (Nitroglycerin Sl 0.4 Mg/Tab Tab) 0.4 mg SL UD PRN PRN Reason: Chest Pain Stop: 09/30/22 22:37 Ondansetron HCl (Ondansetron Inj 2 Mg/Ml 2 Ml Vial) 4 mg IV Q6H PRN PRN Reason: Nausea Stop: 09/30/22 22:37 Last Admin: 09/01/22 14:24 Dose: 4 mg Pantoprazole Sodium (Pantoprazole 40 Mg Tab) 40 mg PO BID [facility] Stop: 10/01/22 08:59 Last Admin: 09/01/22 08:35 Dose: 40 mg Polyethylene Glycol (Polyethylene (Miralax) 17 Gm Pack) 17 gm PO DAILY [facility] Stop: 10/01/22 08:59 Last Admin: 09/01/22 08:44 Dose: 17 gm Rosuvastatin Calcium (Rosuvastatin Calcium 20 Mg Tab) 40 mg PO QAM [facility] Stop: 10/01/22 08:59 Last Admin: 09/01/22 08:35 Dose: 40 mg Umeclidinium/Vilanterol (Umeclidinium/Vilanterol 62.5/25mcg 7 Puffs/Inhaler) 1 puffs INH DAILY [facility] Stop: 10/01/22 08:59 Last Admin: 09/01/22 08:37 Dose: 1 puffs Vitamin D (Cholecalciferol 1,000 Units 25 Mcg Tab) 1,000 units PO QAM [facility] Stop: 10/01/22 08:59 Last Admin: 09/01/22 08:34 Dose: 1,000 units PG Care Time/CCT Total # of Minutes Spent Total Time Spent with Patient: Total time spent is greater than 50% in coordination of care (as documented) at patient's floor/unit and/or counseling patient: Coding Level of Care Code 96633 INT INP/OBS CARE 2/55MIN Diagnoses Chest pain R07.9 CAD (coronary artery disease) I25.10 Coronary Disease-Associated Artery/Lesion type: [place]agon artery [place] vs. transplanted heart: pokagon heart Associated angina: angina presence unspecified S/P coronary artery stent placement Z95.5 HTN (hypertension) I10 Dyslipidemia E78.5 (1) CAD (coronary artery disease) Coronary Disease-Associated Artery/Lesion type: pokagon artery [place] vs. transplanted heart: pokagon heart Associated angina: angina presence unspecified Qualified Code(s): I25.10 - Atherosclerotic heart disease of pokagon coronary artery without angina pectoris
--- NOTE | 2022-09-01 19:37 | Billing Data ---
Date of Service September 01, 2022 Coding Level of Care Code 84399 SUB INP/OBS CARE
[2022-09-01] MEDS: LANTUS PER UNIT CHARGE SQ SCH (20:59)
[2022-09-01] MEDS ORDERED: LANTUS PER UNIT CHARGE SQ SCH ×2 (21:00)
[2022-09-01] MEDS: GABAPENTIN 100 MG CAP PO SCH (21:29)
--- NOTE | 2022-09-01 21:32 | Billing Data ---
Date of Service September 01, 2022 Coding Level of Care Code 74961 INT INP/OBS CARE
--- NOTE | 2022-09-02 07:07 | Discharge Summary ---
Date of Service September 03, 2022 Admission HPI Per Admitting Provider 77-year-old woman with past medical history of CAD with MIs x3 (s/p RCA stent 11/2005, 08/2006; LAD, LCx stents 01/2006), DM2, GERD who presented to the ER with a complaint of chest pain, shortness of breath and dizziness x3 weeks. SOB, dizziness, chest pain aggravated by exertion. ROS + nausea, vomiting. In the ED, CBC was normal. BMP notable for glucose of 301. Magnesium of 1.5. EKG showed slight ST depression in leads V3 and V4. Initial troponin negative. CXR, CT head negative for acute process. Patient was placed on vp information technology and magnesium was repleted x1 g. She received NovoLog x4 units as well for glucose of 226. On admission, patient confirms HPI. ROS+ SOB, dizziness (aggravated by head motion), nausea, chest pain radiating to left shoulder. She denies abdominal pain, headache, vomiting, diarrhea, constipation, recent illness, or vision changes. Discharge Data Allergies Allergy/AdvReac Type Severity Reaction Status Date / Time cephalexin Allergy Intermediate Rash and Verified 08/21/22 18:38 itchiness Cephalosporins Allergy Intermediate Rash and Verified 08/21/22 18:38 itchiness Sulfa (Sulfonamide Allergy Intermediate Hives Verified 08/21/22 18:38 Antibiotics) Consultations 08/31/22 22:01 ED Decision to Admit Stat 08/31/22 22:38 Consult Cardiology Routine Ordered Studies 08/31/22 19:05 CT head/brain wo con Stat Discharge Plan Discharge Items Patient Disposition: Home - Self-Care Reason For Visit: CHEST PAIN , DYSPNEA ON EXERTION, DIZZINESS Discharge Diagnosis: Chest pain, Dizziness Activity: Resume your previous activity Non-emergency contact: Primary Care Provider Call non-emergency contact if: you have any medication questions, your pain is unusual for you and your temperature is above 101.5 Follow-up/Referrals: Lalito Pimentel MD [Primary Care Provider] - Diet: Regular Addtl Attending Provider Instructions: You were admitted to the hospital for Chest pain and dizziness. You were worked up by cardiology and your chest pain is non-cardiac in nature. Your blood glucose was in the 200's. You should f/u with your PCP and endocrine. A discharge summary will be sent to your primary care physician to ensure continuity of care. Please bring this discharge summary with you to your next office appointment so that your provider can review it at that time. Follow-up appointments: * Make a follow-up appointment with your PCP within the next week. It is very important that you follow up with them shortly after discharge from the hospital. 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 * Keep all your follow-up appointments as already scheduled. If you cannot make an appointment, notify your provider. Medications: Your medication list has been reviewed and reconciled upon discharge to ensure accuracy and continuity of care. An updated list of all your medications is included with your hospital discharge paperwork. Please review this list closely, and make note of any changes. * No new medications were added to your visit. * If you have any issues filling these prescriptions, please call [phone] and ask to leave a message for Dr. Brewer. * Take your medications as instructed; do not skip a dose of your medicines. Make sure all of your doctors know every medicine you are taking (including enkd-bkd-xlgtcvi medicines, vitamins, and supplements). Call your primary care provider before taking any new medicines (including over- the-counter medicines, vitamins, and supplements), because some of these may interact with your current medications, or may make your symptoms worse. Tell your primary care provider if you cannot afford your medications. CONTACT YOUR PRIMARY CARE PROVIDER if you experience any of the following: * Worsening of symptoms * Fever, chills, or fatigue * Difficulty following your treatment plan, or difficulty taking medications CALL 911 OR GO TO THE EMERGENCY DEPARTMENT if you experience any of the following: * Sudden, severe abdominal pain or nausea/vomiting * Severe chest pain, or chest pain that radiates (moves) to your jaw or arm * Sudden, severe shortness of breath or difficulty breathing Thank you for allowing us to participate in your care. Pending Studies at Discharge: No Stand-Alone Forms: My [employer], Smoking Cessation Medications and DC Order Prescriptions: Continued (DME) OneTouch Verio test strips Strip See Dose Instructions .ROUTE .MEDSUPPLY Qty: 200 3RF Dose Instruction: As directed Rx Instructions: Test 4 TIMES Daily. duloxetine 30 mg capsule,delayed release(DR/EC) 30 mg PO QAM Qty: 90 3RF isosorbide mononitrate 30 mg tablet extended release 24 hr 60 mg PO QAM Qty: 180 3RF buspirone 10 mg tablet 10 mg PO TID Qty: 270 1RF metformin 500 mg tablet 1,000 mg PO BID Qty: 120 6RF rosuvastatin 40 mg tablet 40 mg PO QAM Qty: 90 3RF Rx Instructions: for cholesterol lisinopril 10 mg tablet 10 mg PO QAM Qty: 90 3RF gabapentin 100 mg capsule 100 mg PO HS Qty: 30 3RF pantoprazole 40 mg tablet,delayed release (DR/EC) 40 mg PO BID Qty: 30 6RF Rx Instructions: TAKE 1 TABLET BY MOUTH TWICE A DAY insulin aspart U-100 [Novolog FlexPen U-100 Insulin] 100 unit/mL (3 mL) insulin pen 24 unit subcut DAILY Qty: 15 5RF Rx Instructions: Inject 6 units with breakfast, 8 units with lunch, 10 units with dinner plus sliding scale TDD 40 units insulin degludec [Tresiba FlexTouch U-100] 100 unit/mL (3 mL) insulin pen 48 unit SQ QPM Qty: 15 5RF cholecalciferol (vitamin D3) [Vitamin D3] 25 mcg (1,000 unit) capsule 1,000 unit PO QAM Qty: 90 1RF (DME) pen needle, diabetic [BD Ultra-Fine [place] Pen Needle] 32 gauge x 5/32" needle See Rx Instructions .ROUTE .MEDSUPPLY Dose Instruction: As directed Rx Instructions: Inject insulin four times daily ondansetron HCl 4 mg tablet 4 mg PO Q8H PRN (Reason: nausea and vomiting) Qty: 30 0RF Praluent Pen 75 mg/mL pen injector 75 mg subcut Q14D Qty: 2 11RF diclofenac sodium [Arthritis Pain (diclofenac)] 1 % gel 2 g topical QID PRN (Reason: Pain) Trelegy Ellipta 100-62.5-25 mcg blister with device 1 inh inhalation DAILY Qty: 28 11RF Rx Instructions: She was instructed to rinse mouth thoroughly after each dose. metoprolol succinate 100 mg tablet extended release 24 hr 100 mg PO QAM Qty: 90 3RF Linzess 145 mcg capsule 145 mcg PO QAM PRN (Reason: Constipation) Label Comments: Take 30 minutes prior to first meal of the day. Do Not open or Crush capsule famotidine 20 mg tablet 20 mg PO BID Qty: 180 2RF (DME) FreeStyle Renan 2 Sensor Kit See Rx Instructions .Route Rx Instructions: As directed (DME) FreeStyle Renan 2 Chandler Misc See Rx Instructions .Route Rx Instructions: As directed ezetimibe [Zetia] 10 mg tablet 10 mg PO QAM Qty: 90 3RF Gvoke HypoPen 2-Pack 1 mg/0.2 mL auto-injector 1 mg subcut .COMPLEX Qty: 0.4 0RF Rx Instructions: 1 mg subcut as directed for hypoglycemia; nitroglycerin [Nitrostat] 0.4 mg tablet, sublingual 0.4 mg Sublingual UD PRN (Reason: Chest Pain) Qty: 1 3RF benzonatate 200 mg capsule 200 mg PO TID PRN (Reason: cough) Qty: 30 0RF aspirin 81 mg Tablet,Delayed Release (Dr/Ec) 81 mg PO QAM albuterol sulfate 90 mcg/actuation HFA aerosol inhaler 2 inha INH QID PRN (Reason: shortness of breath or wheezing) Qty: 1 0RF polyethylene glycol 3350 [Miralax] 17 gram Powder In Packet 17 g PO DAILY 30 Days Qty: 30 0RF Admission Data Admit Date/Time: 08/31/22 22:39 Attending Provider: Fadi Munoz Admit Provider: Yamel Moe Primary Care Provider: Lalito Pimentel Other Providers: [facility],Home Healthcare ; [facility],Referral Center ; Alex Mulligan ; Huseyin Ambrosio ; [place]iz ; Eliud Alba ; Moe Mcdonald ; Lennox Zaman ; Joaquin Lau Jr ; Deon Gonzalez ; Sara Grove ; Landy Constantino ; Arnaldo Mendez ; Matty Pinto ; Andrew Marina ; Melinda Car ; Martha Fu ; Samuel Miles ; Tommy Jain ; Kolby Roman ; Moe Castorena V.
[2022-09-02] MEDS: INSULIN ASPART PER UNIT SC SCH ×4 (09:13→22:03)
[2022-09-02] MEDS: ROSUVASTATIN CALCIUM 20 MG TAB PO SCH (09:15)
[2022-09-02] MEDS: CHOLECALCIFEROL 1,000 UNITS 25 MCG TAB PO SCH (09:15)
[2022-09-02] MEDS: ACETAMINOPHEN 500 MG TAB PO PRN (09:15)
[2022-09-02] MEDS: DULoxetine HCL 30 MG CAP PO SCH (09:15)
[2022-09-02] MEDS: METOPROLOL SUCC 50MG EXT REL TAB PO SCH (09:15)
[2022-09-02] MEDS: busPIRone 5 MG TAB PO SCH ×3 (09:16→22:01)
[2022-09-02] MEDS: PANTOprazole 40 MG TAB PO SCH ×2 (09:16→22:02)
[2022-09-02] MEDS: FAMOTIDINE 20 MG TAB PO SCH ×2 (09:16→22:01)
[2022-09-02] MEDS: lisinopril 10 MG TAB PO SCH (09:16)
[2022-09-02] MEDS: ISOSORBIDE MONO EXTENDED REL 60 MG TABCR PO SCH (09:16)
[2022-09-02] MEDS: UMECLIDINIUM/VILANTEROL 62.5/25MCG 7 PUFFS/INHALER INH SCH (09:17)
[2022-09-02] MEDS: FLUTICASONE FUROATE 100MCG 14 PUFFS/INHALER INH SCH (09:17)
[2022-09-02] MEDS: ASPIRIN 81 MG ECTAB PO SCH (09:17)
[2022-09-02] MEDS: LIDOCAINE 5% 1 PATCH TD SCH (09:18)
[2022-09-02] MEDS: POLYETHYLENE (MIRALAX) 17 GM PACK PO SCH ×2 (09:25→23:01)
[2022-09-02 10:27] LABS: BUN Creatinine Ratio 15.2 (10-20); Calcium 8.9 mg/dl (8.5-10.1); Creatinine Clr Calc Pharmacy 55.2 ml/min; Est GFR (African American) 84.9 ml/min; Est GFR (Non-African American) 73.2 ml/min; Magnesium 1.8 mg/dl (1.7-2.4); Potassium 3.5 mmol/L (3.5-5.1)
[2022-09-02] MEDS ORDERED: MAGNESIUM SULFATE / D5W 1 GM/100 ML BAG IV ONE (11:26)
[2022-09-02] MEDS ORDERED: ACETAMINOPHEN 500 MG TAB PO STA (11:26)
[2022-09-02] MEDS ORDERED: SODIUM CHLORIDE 0.9% 1000ML 250 ML IV ONE (11:26)
[2022-09-02] MEDS ORDERED: SODIUM CHLORIDE 0.9% 1000ML 500 ML IV ONE (11:28)
--- NOTE | 2022-09-02 11:51 | Hospitalist Progress Note ---
Date of Service September 02, 2022 Assessment & Plan (1) DM2 (diabetes mellitus, type 2): (2) Chest pain: (3) GERD (gastroesophageal reflux disease): Plan 77-year-old woman with past medical history of CAD with MIs x3 (s/p RCA stent 11/2005, 08/2006; LAD, LCx stents 01/2006), DM2, GERD presented to the ER with a complaint of chest pain, shortness of breath and dizziness x3 weeks aggravated by exertion with accompanied nausea and vomiting. Patient was admitted for ACS rule out. Chest pain: -History of CAD, multiple MIs, with acute chest pain with radiation to left anterior/flank rib cage. - Recent echo 08/21/2022: EF = 65-70% with no wall motion abnormality -Troponin negative x2, unremarkable CXR -EKG showing nonspecific ST abnormalities with Hypomagnesemia of 1.5. -Chest pain improved following administration of topical lidocaine, lorazepam. Repeat high-sensitivity troponin also negative. Subsequently discontinued heparin anticoagulation, nitroprusside drip, following discussion with night attending. -Cardiology consulted and CP is non-cardiac in nature. -Continue home Imdur, ezetimibe, rosuvastatin, lisinopril, metoprolol, aspirin, as needed nitrate -As needed Ativan, Lidoderm chest pain -CP is most likely MSK in nature and rated to rib dysfunction rather cardiac in nature. -Patient would benefit with OMT and PT after discharge. These arrangements can be made with her PCP. #DM2 (diabetes mellitus, type 2) -Poorly controlled: hemoglobin A1c 12.6 on 08/22/2022 with glucose of 226 on admission. -Current home regimen of metformin, and insulin (48 units of basal qpm, 24 units of NovoLog). -Received 4 units Novolin in ED. Gave additional 20 units of glargine on admission. -Recommend outpatient follow-up with PCP at discharge for tighter glycemic control #GERD (gastroesophageal reflux disease) Continue home pantoprazole #deconditioning -Patient is struggling with walking and uses a walker at home. -PT/OT ordered. Code: DNR/DNI Dispo:Med-Surg telemetry FEN/GI:Heart healthy. NPO after midnight DVT Prophylaxis:SCID PT/OT:No Consults:Cardiology Admission and Anticipated Discharge Date Admission Date: August 31, 2022 Supervising Physician Co-Signing Physician Notes I personally examined the patient and verified all hathaway points of history and exam, discussed case, and agree with decision making with Dr Brewer Headachefrontal/bitemporal, some degree of photophobia, nausea. Notes in the last month she has probably had about 15 headachesshe relates all of them having nausea and some degree of photophobia. Notes that before the last month or so she was not having nearly as many headachesbut does get them from time to time. When she last spoke with her PCP about her headaches they certainly were not this common. Sugar control is poor. Chest pain has improved, but still present somewhat. She is very weak, and does not feel safe at home. Vitals noted, in general she is awake and alert very fatigued laying in bed quietly, holding vomit bag. HEENT normocephalic atraumatic mucous membranes moist. Musculoskeletal/osteopathic shows her suboccipitals to be quite tender bilaterally, and her left upper ribs to be tender to palpation roughly in the neighborhood of ribs 3-5predominantly stuck in exhalation. Gait is very unsteady and very weak. MigrainesI suspect it is probably both migraine and tension headaches playing off of each other. Prior to starting any sort of migraine prophylaxis medicinewe will utilize abortive therapy for the current migraine, and see how better glycemic control as well as better control of the tension headaches with OMT helps her overall headache burden before adding additional medication to her already fairly lengthy list. Tension headachessuspect would benefit from OMT. DO physician in her PCPs office is quite adept at OMToutpatient referral for this. Chest painrib relatedsame as above. Weaknessdoes not feel safe at homeshe does have a fairly unsteady gait to my reviewPT/OT eval and treat, rehab if possible. Otherwise as above Subjective Patient was seen beside this AM. She states that she is still having a ALLRED and feels dizzy with walking. In terms of her CP, she states that it gets worse when she takes a deep breath. She states that her ALLRED feels like a band across the forehead. The ALLRED has associated N/V as well. The ALLRED gets better when she lays in a cold dark room. Review of Systems Review of Systems: All systems reviewed & are unremarkable except as noted in HPI & below Physical Exam Physical Exam: Constitutional: well-appearing, no acute distress HEENT: NCAT, no conjunctival injection CV: regular rhythm, no murmur appreciated, extremities well-perfused, no LE edema Resp: CTABL, no wheezes/rales/rhonchi appreciated, no increased work of breathing GI: soft, nondistended, nontender, BS normoactive MSK: tender to palpation on the chest wall and suboccipital muscles. Skin: warm, dry, no rash appreciated Neuro: alert, oriented, no focal neurologic deficit appreciated Results & Data Results & Data ([facility]) Vital Signs (Past 12 Hours) Vital Signs Temp Pulse Resp BP BP Pulse Ox O2 Del Method 09/02/22 11:07 36.7 C 62 15 126/65 95 Room Air 09/02/22 09:07 37.1 C 67 17 141/78 H 97 Room Air 09/02/22 02:53 36.5 C 62 18 118/60 97 Room Air (1) GERD (gastroesophageal reflux disease) Esophagitis presence: without esophagitis Qualified Code(s): K21.9 - Gastro- esophageal reflux disease without esophagitis
--- NOTE | 2022-09-02 15:39 | Pharmacy Report ---
Pharmacy Glycemic Short Note 2 - Date of Service September 02, 2022 - Glycemic Short BSG Results (Last 24 hours): 09/01/22 09/01/22 09/02/22 16:59 20:05 07:05 Glucose 75 POC Glucose 194 H 249 H 09/02/22 09/02/22 07:43 11:04 Glucose POC Glucose 76 174 H OUTPATIENT ANTIDIABETIC REGIMEN: * Novolog 6 units SC with breakfast, 8 units SC with lunch, 10 units SC with dinner + SSI (TDD 40 units) * Tresiba 15 units SC qAM, 48 units SC qPM * Metformin 1000 mg PO BIDM HbA1c: 12.6% (08/22/22) ASSESSMENT: 09/02: * Patient fasting BSG downtrended today to 76 mg/dL, however patient ate minimally yesterday and was NPO for the morning. Lunchtime BSG trended back up to 174 and patient is ordered/tolerating a diet. * Will order a lantus scale for this evening. 09/01 * CS is a 77 year old female who presented to [facility] ED on 08/31 with CC of chest pain, shortness of breath, and dizziness * Troponin negative, nonspecific ST abnormalities on EKG, cardiology consulted * PMH includes hx of CAD, multiple MIs, HTN, uncontrolled T2DM, and dyslipidemia * BSGs elevated at time of presentation, received IV insulin bolus + 20 units of Lantus * Since patient is currently NPO, will hold off on further basal for now, but will reassess later today * Plan is for reduced basal dose this evening * ~100 units of insulin/day as an outpatient with very poor control based on A1c PLAN FOR INPATIENT GLYCEMIC CONTROL: * Hold outpatient oral diabetes medications * Basal insulin - reduced dose from outpatient while NPO * Lantus 25-45 units SC HS (see EHR for details) * Bolus insulin * NovoLog per scale ACHS or Q6hrs while NPO * Goal Range: Low 110 mg/dL - High 140 mg/dL * Correction Factor: 20 mg/dL/unit * Nutritional / Prandial insulin per carb ratio of 1 unit per 8 grams CHO consumed
[2022-09-02] MEDS ORDERED: LACTATED RINGER'S 1,000 ML IV SCH (17:15)
--- NOTE | 2022-09-02 18:10 | Billing Data ---
Date of Service September 02, 2022 Coding Level of Care Code 17023 SUB INP/OBS CARE MIN
[2022-09-02] MEDS: LANTUS PER UNIT CHARGE SQ SCH (21:53)
[2022-09-02] MEDS: GABAPENTIN 100 MG CAP PO SCH (22:01)
--- NOTE | 2022-09-03 06:47 | Electrocardiogram Report ---
Test Reason : Blood Pressure : / mmHG Vent. Rate : 057 BPM Atrial Rate : 057 BPM P-R Int : 160 ms QRS Dur : 070 ms QT Int : 458 ms P-R-T Axes : 066 030 051 degrees QTc Int : 445 ms Sinus bradycardia Nonspecific T wave abnormality When compared with ECG of 31-AUG-2022 15:41, Vent. rate has decreased BY 38 BPM Confirmed by Deon Gonzalez ([id number]) on 09/03/2022 6:46:33 AM Referred By: REFERRED SELF Confirmed By:Deon Gonzalez
[2022-09-03] MEDS: lisinopril 10 MG TAB PO SCH (07:45)
[2022-09-03] MEDS: ISOSORBIDE MONO EXTENDED REL 60 MG TABCR PO SCH (07:45)
[2022-09-03] MEDS: ASPIRIN 81 MG ECTAB PO SCH (07:45)
[2022-09-03] MEDS: CHOLECALCIFEROL 1,000 UNITS 25 MCG TAB PO SCH (07:45)
[2022-09-03] MEDS: METOPROLOL SUCC 50MG EXT REL TAB PO SCH (07:45)
[2022-09-03] MEDS: busPIRone 5 MG TAB PO SCH ×3 (07:46→21:30)
[2022-09-03] MEDS: DULoxetine HCL 30 MG CAP PO SCH (07:46)
[2022-09-03] MEDS: ROSUVASTATIN CALCIUM 20 MG TAB PO SCH (07:46)
[2022-09-03] MEDS: FAMOTIDINE 20 MG TAB PO SCH ×2 (07:47→21:30)
[2022-09-03] MEDS: PANTOprazole 40 MG TAB PO SCH ×2 (07:47→21:30)
[2022-09-03] MEDS: UMECLIDINIUM/VILANTEROL 62.5/25MCG 7 PUFFS/INHALER INH SCH (07:47)
[2022-09-03] MEDS: FLUTICASONE FUROATE 100MCG 14 PUFFS/INHALER INH SCH (07:48)
[2022-09-03] MEDS: LIDOCAINE 5% 1 PATCH TD SCH (07:48)
[2022-09-03] MEDS: INSULIN ASPART PER UNIT SC SCH ×4 (08:21→21:36)
--- NOTE | 2022-09-03 09:52 | Pharmacy Report ---
Pharmacy Glycemic Short Note 2 - Date of Service September 03, 2022 - Glycemic Short BSG Results (Last 24 hours): 09/02/22 09/02/22 09/02/22 07:05 11:04 17:26 Glucose 75 POC Glucose 174 H 155 H 09/02/22 09/03/22 19:40 07:53 Glucose POC Glucose 132 H 96 OUTPATIENT ANTIDIABETIC REGIMEN: * Novolog 6 units SC with breakfast, 8 units SC with lunch, 10 units SC with dinner + SSI (TDD 40 units) * Tresiba 15 units SC qAM, 48 units SC qPM * Metformin 1000 mg PO BIDM * HbA1c: 12.6% (08/22/22) ASSESSMENT: 09/03: * Claire received a total of 49 units of insulin yesterday, 35 units basal + 14 units bolus. BSGs were: 52-741-618-132 mg/dL. * Fasting BSG improved to 96 mg/dL this AM but still below goal. * Will continue to hold AM basal at this time. HS basal scale will be adjusted slightly to provide 30-40 units nightly. * Will trend postprandials. Low threshold to tighten carb ratio slightly should lunchtime BSG be elevated. Patient may require tighter Novolog parameters with breakfast in the coming days. 09/02: * Patient fasting BSG downtrended today to 76 mg/dL, however patient ate minimally yesterday and was NPO for the morning. Lunchtime BSG trended back up to 174 and patient is ordered/tolerating a diet. * Will order a lantus scale for this evening. 09/01 * CS is a 77 year old female who presented to [facility] ED on 08/31 with CC of chest pain, shortness of breath, and dizziness * Troponin negative, nonspecific ST abnormalities on EKG, cardiology consulted * PMH includes hx of CAD, multiple MIs, HTN, uncontrolled T2DM, and dyslipidemia * BSGs elevated at time of presentation, received IV insulin bolus + 20 units of Lantus * Since patient is currently NPO, will hold off on further basal for now, but will reassess later today * Plan is for reduced basal dose this evening * ~100 units of insulin/day as an outpatient with very poor control based on A1c PLAN FOR INPATIENT GLYCEMIC CONTROL: * Hold outpatient oral diabetes medications * Basal insulin * Lantus 30-40 units SC HS (see EHR for details) * Bolus insulin * NovoLog per scale ACHS or Q6hrs while NPO * Goal Range: Low 110 mg/dL - High 140 mg/dL * Correction Factor: 20 mg/dL/unit * Nutritional / Prandial insulin per carb ratio of 1 unit per 8 grams CHO consumed
[2022-09-03] MEDS: ACETAMINOPHEN 500 MG TAB PO PRN (11:34)
--- NOTE | 2022-09-03 14:22 | Hospitalist Progress Note ---
Date of Service September 03, 2022 Assessment & Plan (1) DM2 (diabetes mellitus, type 2): (2) Chest pain: (3) GERD (gastroesophageal reflux disease): (4) Headache: Plan 77-year-old woman with past medical history of CAD with MIs x3 (s/p RCA stent 11/2005, 08/2006; LAD, LCx stents 01/2006), DM2, GERD presented to the ER with a complaint of chest pain, shortness of breath and dizziness x3 weeks aggravated by exertion with accompanied nausea and vomiting. Patient was admitted for ACS rule out. Chest pain: -History of CAD, multiple MIs, with acute chest pain with radiation to left anterior/flank rib cage. - Recent echo 08/21/2022: EF = 65-70% with no wall motion abnormality -Troponin negative x2, unremarkable CXR -EKG showing nonspecific ST abnormalities with Hypomagnesemia of 1.5. -Chest pain improved following administration of topical lidocaine, lorazepam. Repeat high-sensitivity troponin also negative. Subsequently discontinued heparin anticoagulation, nitroprusside drip, following discussion with night attending. -Cardiology consulted and CP is non-cardiac in nature. -Continue home Imdur, ezetimibe, rosuvastatin, lisinopril, metoprolol, aspirin, as needed nitrate -As needed Ativan, Lidoderm chest pain -CP is most likely MSK in nature and rated to rib dysfunction rather cardiac in nature. -Patient would benefit with OMT and PT after discharge. -PT consulted on 09/03 and suggest short term rehab prior to returning home. #DM2 (diabetes mellitus, type 2) -Poorly controlled: hemoglobin A1c 12.6 on 08/22/2022 with glucose of 226 on admission. -Current home regimen of metformin, and insulin (48 units of basal qpm, 24 units of NovoLog). -Received 4 units Novolin in ED. Gave additional 20 units of glargine on admission. -Recommend outpatient follow-up with PCP at discharge for tighter glycemic control #Headache -Most like migraines and tension headaches that exacerbate each other. -Would benefit to outpatient OMT. -Will utilize abortive therapy for current migraines. -Better glycemic control will probably help with mangment of the patient's ALLRED, h owever is most likely not the sole etiology of the patient's headache. #GERD (gastroesophageal reflux disease) Continue home pantoprazole #Deconditioning -Patient is struggling with walking and uses a walker at home. -PT/OT ordered. -PT states that the patient will need a short term rehab stay prior to returning home Code: DNR/DNI Dispo:Med-Surg telemetry FEN/GI:Heart healthy. NPO after midnight DVT Prophylaxis:SCID PT/OT:No Consults:Cardiology Admission and Anticipated Discharge Date Admission Date: August 31, 2022 Supervising Physician Co-Signing Physician Notes I personally examined the patient and verified all hathaway points of history and exam, discussed case, and agree with decision making with Dr Brewer Little bit of a headache. No photophobia or nausea today. Still waiting on rehabdiscussed options, she definitely does not feel safe at home, and would prefer to wait on a bed. Vitals noted, in general she is awake and alert pleasant no distress. HEENT normocephalic atraumatic mucous membranes moist. Breathing unlabored no accessory muscle use good effort. Left greater than right suboccipitals high tone, tender, decreased range of motioninhibitory pressureimproved, patient tolerated well and noted that it alleviated headaches. MigrainesI suspect it is probably both migraine and tension headaches playing off of each other. Prior to starting any sort of migraine prophylaxis medicinewe will utilize abortive therapy for the current migraine, and see how better glycemic control as well as better control of the tension headaches with OMT helps her overall headache burden before adding additional medication to her already fairly lengthy list. Today's headache seems to be predominantly if not entirely tension. Tension headachessuspect would benefit from OMT. Somatic dysfunction cervical regionOMT as above. Chest painrib relatedno complaints of this todayif persists/recurs likely would benefit from OMT as well Weaknessdoes not feel safe at homeshe does have a fairly unsteady gait to my reviewPT/OT eval and treat, rehab if possible. Stable pending a bed Otherwise as above Subjective Patient was seen bedside this AM. She has no issues or complaints at this time. She states that her CP has mostly resolved at this point. She states that she had a ALLRED last night that was pretty bad that caused her to feel nausea and having photophobia. Review of Systems Review of Systems: All systems reviewed & are unremarkable except as noted in HPI & below Physical Exam Physical Exam: Constitutional: well-appearing, no acute distress HEENT: NCAT, no conjunctival injection CV: regular rhythm, no murmur appreciated, extremities well-perfused, no LE edema Resp: CTABL, no wheezes/rales/rhonchi appreciated, no increased work of breathing GI: soft, nondistended, nontender, BS normoactive MSK: tender to palpation on the chest wall and suboccipital muscles. Skin: warm, dry, no rash appreciated Neuro: alert, oriented, no focal neurologic deficit appreciated Results & Data Results & Data ([facility]) Vital Signs (Past 12 Hours) Vital Signs Temp Pulse Resp BP Pulse Ox O2 Del Method 09/03/22 08:00 Room Air 09/03/22 07:42 36.8 C 64 18 125/77 99 Room Air Resident Activity Tracking Resident Involvement: Resident Care Provided Care Provided: Adult Hospital Medicine (1) GERD (gastroesophageal reflux disease) Esophagitis presence: without esophagitis Qualified Code(s): K21.9 - Gastro- esophageal reflux disease without esophagitis
--- NOTE | 2022-09-03 17:56 | Hospitalist Progress Note ---
Date of Service September 03, 2022 Assessment & Plan Admission and Anticipated Discharge Date Admission Date: August 31, 2022 Results & Data Results & Data ([facility]) Vital Signs (Past 12 Hours) Vital Signs Temp Pulse Resp BP Pulse Ox O2 Del Method 09/03/22 14:22 98.6 F 55 L 16 115/65 95 Room Air 09/03/22 08:00 Room Air 09/03/22 07:42 98.2 F 64 18 125/77 99 Room Air PG Care Time/CCT Total # of Minutes Spent Total Time Spent with Patient: Total time spent is greater than 50% in coordination of care (as documented) at patient's floor/unit and/or counseling patient: Coding Level of Care Code None CPT Codes Musculoskeletal - Musculoskeletal: 88[address] 1-2 Body regions ([id number])
--- NOTE | 2022-09-03 17:56 | Billing Data ---
Date of Service September 03, 2022 Coding Level of Care Code 88213 SUB INP/OBS CARE
[2022-09-03] MEDS: GABAPENTIN 100 MG CAP PO SCH (21:30)
[2022-09-03] MEDS: LANTUS PER UNIT CHARGE SQ SCH (21:36)
--- NOTE | 2022-09-04 07:24 | Hospitalist Progress Note ---
Date of Service September 04, 2022 Assessment & Plan (1) DM2 (diabetes mellitus, type 2): (2) Chest pain: (3) GERD (gastroesophageal reflux disease): (4) Headache: Plan 77-year-old woman with past medical history of CAD with MIs x3 (s/p RCA stent 11/2005, 08/2006; LAD, LCx stents 01/2006), DM2, GERD presented to the ER with a complaint of chest pain, shortness of breath and dizziness x3 weeks aggravated by exertion with accompanied nausea and vomiting. Patient was admitted for ACS rule out. Chest pain: -History of CAD, multiple MIs, with acute chest pain with radiation to left anterior/flank rib cage. - Recent echo 08/21/2022: EF = 65-70% with no wall motion abnormality -Troponin negative x2, unremarkable CXR -EKG showing nonspecific ST abnormalities with Hypomagnesemia of 1.5. -Chest pain improved following administration of topical lidocaine, lorazepam. Repeat high-sensitivity troponin also negative. Subsequently discontinued heparin anticoagulation, nitroprusside drip, following discussion with night attending. -Cardiology consulted and CP is non-cardiac in nature. -Continue home Imdur, ezetimibe, rosuvastatin, lisinopril, metoprolol, aspirin, as needed nitrate -As needed Ativan, Lidoderm chest pain -CP is most likely MSK in nature and rated to rib dysfunction rather cardiac in nature. -Patient would benefit with OMT and PT after discharge. -PT consulted on 09/03 and suggest short term rehab prior to returning home. #DM2 (diabetes mellitus, type 2) -Poorly controlled: hemoglobin A1c 12.6 on 08/22/2022 with glucose of 226 on admission. -Current home regimen of metformin, and insulin (48 units of basal qpm, 24 units of NovoLog). -Received 4 units Novolin in ED. Gave additional 20 units of glargine on admission. -Recommend outpatient follow-up with PCP at discharge for tighter glycemic control #Headache -Most like migraines and tension headaches that exacerbate each other. -Would benefit to outpatient OMT. -Will utilize abortive therapy for current migraines. -Better glycemic control will probably help with mangment of the patient's ALLRED, h owever is most likely not the sole etiology of the patient's headache. #GERD (gastroesophageal reflux disease) Continue home pantoprazole #Deconditioning -Patient is struggling with walking and uses a walker at home. -PT/OT ordered. -PT states that the patient will need a short term rehab stay prior to returning home Code: DNR/DNI Dispo:Med-Surg telemetry FEN/GI:Heart healthy. NPO after midnight DVT Prophylaxis:SCID PT/OT:No Consults:Cardiology Admission and Anticipated Discharge Date Admission Date: August 31, 2022 Results & Data Results & Data ([facility]) Vital Signs (Past 12 Hours) Vital Signs Temp Pulse Resp BP Pulse Ox O2 Del Method 09/03/22 21:47 37 C 60 18 113/69 94 Room Air (1) GERD (gastroesophageal reflux disease) Esophagitis presence: without esophagitis Qualified Code(s): K21.9 - Gastro- esophageal reflux disease without esophagitis
[2022-09-04] MEDS: UMECLIDINIUM/VILANTEROL 62.5/25MCG 7 PUFFS/INHALER INH SCH (07:36)
[2022-09-04] MEDS: FLUTICASONE FUROATE 100MCG 14 PUFFS/INHALER INH SCH (07:37)
[2022-09-04] MEDS: busPIRone 5 MG TAB PO SCH ×2 (08:10→13:52)
[2022-09-04] MEDS: PANTOprazole 40 MG TAB PO SCH (08:10)
[2022-09-04] MEDS: ISOSORBIDE MONO EXTENDED REL 60 MG TABCR PO SCH (08:12)
[2022-09-04] MEDS: METOPROLOL SUCC 50MG EXT REL TAB PO SCH (08:12)
[2022-09-04] MEDS: ASPIRIN 81 MG ECTAB PO SCH (08:13)
[2022-09-04] MEDS: lisinopril 10 MG TAB PO SCH (08:13)
[2022-09-04] MEDS: DULoxetine HCL 30 MG CAP PO SCH (08:13)
[2022-09-04] MEDS: CHOLECALCIFEROL 1,000 UNITS 25 MCG TAB PO SCH (08:13)
[2022-09-04] MEDS: ROSUVASTATIN CALCIUM 20 MG TAB PO SCH (08:13)
[2022-09-04] MEDS: POLYETHYLENE (MIRALAX) 17 GM PACK PO SCH (08:21)
[2022-09-04] MEDS: FAMOTIDINE 20 MG TAB PO SCH (08:21)
[2022-09-04] MEDS: LIDOCAINE 5% 1 PATCH TD SCH (08:21)
[2022-09-04] MEDS: INSULIN ASPART PER UNIT SC SCH ×2 (08:29→13:45)
--- NOTE | 2022-09-04 09:42 | Pharmacy Report ---
Pharmacy Glycemic Short Note 2 - Date of Service September 04, 2022 - Glycemic Short BSG Results (Last 24 hours): 09/03/22 09/03/22 09/03/22 11:56 16:51 20:47 POC Glucose 134 H 91 115 H 09/04/22 08:11 POC Glucose 85 OUTPATIENT ANTIDIABETIC REGIMEN: * Novolog 6 units SC with breakfast, 8 units SC with lunch, 10 units SC with dinner + SSI (TDD 40 units) * Tresiba 15 units SC qAM, 48 units SC qPM * Metformin 1000 mg PO BIDM * HbA1c: 12.6% (08/22/22) ASSESSMENT: 09/04: * Patient received total of 43 units of insulin yesterday, of which 30 units were basal * Fasting BSG trending down at 85 mg/dL, despite decrease in basal last evening - will provider further reduction for basal for HS tonight 20-25 units HS * Will loosen CF/CR slightly since BSGs trending down last evening 09/03: * Claire received a total of 49 units of insulin yesterday, 35 units basal + 14 units bolus. BSGs were: 83-348-431-132 mg/dL. * Fasting BSG improved to 96 mg/dL this AM but still below goal. * Will continue to hold AM basal at this time. HS basal scale will be adjusted slightly to provide 30-40 units nightly. * Will trend postprandials. Low threshold to tighten carb ratio slightly should lunchtime BSG be elevated. Patient may require tighter Novolog parameters with breakfast in the coming days. 09/02: * Patient fasting BSG downtrended today to 76 mg/dL, however patient ate minimally yesterday and was NPO for the morning. Lunchtime BSG trended back up to 174 and patient is ordered/tolerating a diet. * Will order a lantus scale for this evening. 09/01 * CS is a 77 year old female who presented to [facility] ED on 08/31 with CC of chest pain, shortness of breath, and dizziness * Troponin negative, nonspecific ST abnormalities on EKG, cardiology consulted * PMH includes hx of CAD, multiple MIs, HTN, uncontrolled T2DM, and dyslipidemia * BSGs elevated at time of presentation, received IV insulin bolus + 20 units of Lantus * Since patient is currently NPO, will hold off on further basal for now, but will reassess later today * Plan is for reduced basal dose this evening * ~100 units of insulin/day as an outpatient with very poor control based on A1c PLAN FOR INPATIENT GLYCEMIC CONTROL: * Hold outpatient oral diabetes medications * Basal insulin * Lantus 20-25 units SC HS (see EHR for details) * Bolus insulin * NovoLog per scale ACHS or Q6hrs while NPO * Goal Range: Low 110 mg/dL - High 140 mg/dL * Correction Factor: 30 mg/dL/unit * Nutritional / Prandial insulin per carb ratio of 1 unit per 12 grams CHO consumed
--- NOTE | 2022-09-04 13:29 | Discharge Summary ---
Date of Service September 04, 2022 Admission Exam Per Admitting Provider General: Alert, oriented, and interactive woman in mild distress. HEENT: Normocephalic, atraumatic. EOM intact. Good conjugate gaze. Nares patent. Moist mucosal membranes. Neck: Supple. No lymphadenopathy. Normal ROM. CV: Regular rate and rhythm. Normal S1 and S2. No murmurs gallops or rubs. Respiratory: Normal respiratory effort. Lungs clear to auscultation bilaterally. No crackles, rhonchi, or wheezes. Abdomen: Soft, nondistended abdomen. No bruits heard on auscultation. No tenderness to deep palpation. Extremities: Capillary refill <2 sec. 2+ dp equal bilaterally. No pedal edema. Neuro: Alert and oriented x3. Skin: Clean, dry, and intact. No rashes, bruises, or erythema. Principal Diagnosis Chest pain, Dizziness Discharge Exam Constitutional: well-appearing, no acute distress HEENT: NCAT, no conjunctival injection CV: regular rhythm, no murmur appreciated, extremities well-perfused, no LE edema Resp: CTABL, no wheezes/rales/rhonchi appreciated, no increased work of breathing GI: soft, nondistended, nontender, BS normoactive MSK: no gross deformities appreciated Skin: warm, dry, no rash appreciated Neuro: alert, oriented, no focal neurologic deficit appreciated Discharge Data Allergies Allergy/AdvReac Type Severity Reaction Status Date / Time cephalexin Allergy Intermediate Rash and Verified 08/21/22 18:38 itchiness Cephalosporins Allergy Intermediate Rash and Verified 08/21/22 18:38 itchiness Sulfa (Sulfonamide Allergy Intermediate Hives Verified 08/21/22 18:38 Antibiotics) Consultations 08/31/22 22:01 ED Decision to Admit Stat 08/31/22 22:38 Consult Cardiology Routine Ordered Studies 08/31/22 19:05 CT head/brain wo con Stat Chest X-Ray 08/31/22 15:52 XR chest 1V portable HISTORY: Atypical chest pain COMPARISON: Chest 08/21/2022. FINDINGS: The lungs are clear. Cardiac silhouette is normal in size. No pleural effusions. No pneumothorax. IMPRESSION: No acute process. ACT 112: Negative or not required by law. Electronically signed by: Vijay Vega M.D. 08/31/2022 4:[address] 08/31/22 19:05 CT head/brain wo con CLINICAL HISTORY: dizziness Technique: Contiguous axial CT images of the head were acquired from the base of the skull to the vertex without intravenous contrast administration. Images were viewed in brain, subdural and bone windows. Automated dose lowering techniques and/or adjustment according to patient size were utilized for this exam. Comparison: Comparison is made to CT head 10/24/2021 Findings: The ventricles, basal cisterns, and cerebral sulci are normal. There is no acute intracranial hemorrhage or evidence of acute territorial infarction. Neither mass effect, shift of the midline structures, nor abnormal extra-axial fluid collections are shown. Imaged portions of the paranasal sinuses and mastoid air cells are clear. The orbits appear normal. There are no acute fractures of the calvaria or scalp swelling. Impression: No acute intracranial hemorrhage, no evidence of acute territorial infarction or other acute intracranial disease process. ACT 112: Negative or not required by law. Electronically signed by: Josh Lange M.D. 08/31/2022 7:18 PM Hospital Course (1) DM2 (diabetes mellitus, type 2): (2) Chest pain: (3) GERD (gastroesophageal reflux disease): (4) Headache: Plan 77-year-old woman with past medical history of CAD with MIs x3 (s/p RCA stent 11/2005, 08/2006; LAD, LCx stents 01/2006), DM2, GERD presented to the ER with a complaint of chest pain, shortness of breath and dizziness x3 weeks aggravated by exertion with accompanied nausea and vomiting. Patient was admitted for ACS rule out. Chest pain: -History of CAD, multiple MIs, with acute chest pain with radiation to left anterior/flank rib cage. - Recent echo 08/21/2022: EF = 65-70% with no wall motion abnormality -Troponin negative x2, unremarkable CXR -EKG showing nonspecific ST abnormalities with Hypomagnesemia of 1.5. -Chest pain improved following administration of topical lidocaine, lorazepam. Repeat high-sensitivity troponin also negative. Subsequently discontinued heparin anticoagulation, nitroprusside drip, following discussion with night attending. -Cardiology consulted and CP is non-cardiac in nature. -Continue home Imdur, ezetimibe, rosuvastatin, lisinopril, metoprolol, aspirin, as needed nitrate -CP is most likely MSK in nature and rated to rib dysfunction rather cardiac in nature. -Patient would benefit with OMT and PT after discharge. -PT consulted on 09/03 and suggest short term rehab prior to returning home. #DM2 (diabetes mellitus, type 2) -Poorly controlled: hemoglobin A1c 12.6 on 08/22/2022 with glucose of 226 on admission. -Current home regimen of metformin, and insulin (48 units of basal qpm, 24 units of NovoLog). -Received 4 units Novolin in ED. Gave additional 20 units of glargine on admission. -Recommend outpatient follow-up with PCP at discharge for tighter glycemic control #Headache -Most like migraines and tension headaches that exacerbate each other. -Better glycemic control will probably help with management of the patient's ALLRED, however is most likely not the sole etiology of the patient's headache. -Some posterior cervical OMT was done on 09/04 and patient's ALLRED resolved. At time of discharge, still not having a ALLRED. -Would benefit to outpatient OMT. #GERD (gastroesophageal reflux disease) Continue home pantoprazole #Deconditioning -Patient is struggling with walking and uses a walker at home. -PT/OT ordered. -PT states that the patient will need a short term rehab stay prior to returning home Total Time Total Time Spent Total Time Spent (In Minutes): <30 Discharge Plan Discharge Items Patient Disposition: Transfer Long Term Fac Reason For Visit: CHEST PAIN , DYSPNEA ON EXERTION, DIZZINESS Discharge Diagnosis: Chest pain, Dizziness Activity: Resume your previous activity Non-emergency contact: Primary Care Provider Call non-emergency contact if: you have any medication questions, your pain is unusual for you and your temperature is above 101.5 Follow-up/Referrals: Lalito Pimentel MD [Primary Care Provider] - Diet: Regular Addtl Attending Provider Instructions: 77-year-old woman with past medical history of CAD with MIs x3 (s/p RCA stent 11/2005, 08/2006; LAD, LCx stents 01/2006), DM2, GERD presented to the ER with a complaint of chest pain, shortness of breath and dizziness x3 weeks aggravated by exertion with accompanied nausea and vomiting. Patient was admitted for ACS rule out. Chest pain: -History of CAD, multiple MIs, with acute chest pain with radiation to left anterior/flank rib cage. - Recent echo 08/21/2022: EF = 65-70% with no wall motion abnormality -Troponin negative x2, unremarkable CXR -EKG showing nonspecific ST abnormalities with Hypomagnesemia of 1.5. -Chest pain improved following administration of topical lidocaine, lorazepam. Repeat high-sensitivity troponin also negative. Subsequently discontinued heparin anticoagulation, nitroprusside drip, following discussion with night attending. -Cardiology consulted and CP is non-cardiac in nature. -Continue home Imdur, ezetimibe, rosuvastatin, lisinopril, metoprolol, aspirin, as needed nitrate -CP is most likely MSK in nature and rated to rib dysfunction rather cardiac in nature. -Patient would benefit with OMT and PT after discharge. -PT consulted on 09/03 and suggest short term rehab prior to returning home. #DM2 (diabetes mellitus, type 2) -Poorly controlled: hemoglobin A1c 12.6 on 08/22/2022 with glucose of 226 on admission. -Current home regimen of metformin, and insulin (48 units of basal qpm, 24 units of NovoLog). -Received 4 units Novolin in ED. Gave additional 20 units of glargine on admission. -Recommend outpatient follow-up with PCP at discharge for tighter glycemic control #Headache -Most like migraines and tension headaches that exacerbate each other. -Better glycemic control will probably help with management of the patient's ALLRED, however is most likely not the sole etiology of the patient's headache. -Some posterior cervical OMT was done on 09/04 and patient's ALLRED resolved. At time of discharge, still not having a ALLRED. -Would benefit to outpatient OMT. #GERD (gastroesophageal reflux disease) Continue home pantoprazole #Deconditioning -Patient is struggling with walking and uses a walker at home. -PT/OT ordered. -PT states that the patient will need a short term rehab stay prior to returning home Pending Studies at Discharge: No Stand-Alone Forms: My [employer], Smoking Cessation Skilled Items Patient informed of condition?: Yes DNR: Yes Discharge Level of Care: Acute rehab Communicable Disease: No Discharge Prognosis: Stable Lines: None Urinary Catheter: No Medications and DC Order Prescriptions: Continued (DME) OneTouch Verio test strips Strip See Dose Instructions .ROUTE .MEDSUPPLY Qty: 200 3RF Dose Instruction: As directed Rx Instructions: Test 4 TIMES Daily. duloxetine 30 mg capsule,delayed release(DR/EC) 30 mg PO QAM Qty: 90 3RF isosorbide mononitrate 30 mg tablet extended release 24 hr 60 mg PO QAM Qty: 180 3RF buspirone 10 mg tablet 10 mg PO TID Qty: 270 1RF metformin 500 mg tablet 1,000 mg PO BID Qty: 120 6RF rosuvastatin 40 mg tablet 40 mg PO QAM Qty: 90 3RF Rx Instructions: for cholesterol lisinopril 10 mg tablet 10 mg PO QAM Qty: 90 3RF gabapentin 100 mg capsule 100 mg PO HS Qty: 30 3RF pantoprazole 40 mg tablet,delayed release (DR/EC) 40 mg PO BID Qty: 30 6RF Rx Instructions: TAKE 1 TABLET BY MOUTH TWICE A DAY insulin aspart U-100 [Novolog FlexPen U-100 Insulin] 100 unit/mL (3 mL) insulin pen 24 unit subcut DAILY Qty: 15 5RF Rx Instructions: Inject 6 units with breakfast, 8 units with lunch, 10 units with dinner plus sliding scale TDD 40 units insulin degludec [Tresiba FlexTouch U-100] 100 unit/mL (3 mL) insulin pen 48 unit SQ QPM Qty: 15 5RF cholecalciferol (vitamin D3) [Vitamin D3] 25 mcg (1,000 unit) capsule 1,000 unit PO QAM Qty: 90 1RF (DME) pen needle, diabetic [BD Ultra-Fine [place] Pen Needle] 32 gauge x 5/32" needle See Rx Instructions .ROUTE .MEDSUPPLY Dose Instruction: As directed Rx Instructions: Inject insulin four times daily ondansetron HCl 4 mg tablet 4 mg PO Q8H PRN (Reason: nausea and vomiting) Qty: 30 0RF Praluent Pen 75 mg/mL pen injector 75 mg subcut Q14D Qty: 2 11RF diclofenac sodium [Arthritis Pain (diclofenac)] 1 % gel 2 g topical QID PRN (Reason: Pain) Trelegy Ellipta 100-62.5-25 mcg blister with device 1 inh inhalation DAILY Qty: 28 11RF Rx Instructions: She was instructed to rinse mouth thoroughly after each dose. metoprolol succinate 100 mg tablet extended release 24 hr 100 mg PO QAM Qty: 90 3RF Linzess 145 mcg capsule 145 mcg PO QAM PRN (Reason: Constipation) Label Comments: Take 30 minutes prior to first meal of the day. Do Not open or Crush capsule famotidine 20 mg tablet 20 mg PO BID Qty: 180 2RF (DME) FreeStyle Renan 2 Sensor Kit See Rx Instructions .Route Rx Instructions: As directed (DME) FreeStyle Renan 2 Doran Misc See Rx Instructions .Route Rx Instructions: As directed ezetimibe [Zetia] 10 mg tablet 10 mg PO QAM Qty: 90 3RF Gvoke HypoPen 2-Pack 1 mg/0.2 mL auto-injector 1 mg subcut .COMPLEX Qty: 0.4 0RF Rx Instructions: 1 mg subcut as directed for hypoglycemia; nitroglycerin [Nitrostat] 0.4 mg tablet, sublingual 0.4 mg Sublingual UD PRN (Reason: Chest Pain) Qty: 1 3RF benzonatate 200 mg capsule 200 mg PO TID PRN (Reason: cough) Qty: 30 0RF aspirin 81 mg Tablet,Delayed Release (Dr/Ec) 81 mg PO QAM albuterol sulfate 90 mcg/actuation HFA aerosol inhaler 2 inha INH QID PRN (Reason: shortness of breath or wheezing) Qty: 1 0RF polyethylene glycol 3350 [Miralax] 17 gram Powder In Packet 17 g PO DAILY 30 Days Qty: 30 0RF Discharge Orders: Discharge Order (Routine); Ordered 09/04/22 Ordered By: lOiver Brewer Admission Data Admit Date/Time: 08/31/22 22:39 Attending Provider: Fadi Munoz Admit Provider: Yamel Moe Primary Care Provider: Lalito Pimentel Other Providers: [facility],Home Healthcare ; [facility],Referral Center ; Alex Mulligan ; Huseyin Ambrosio ; [place] ; Eliud Alba ; Moe Mcdonald ; Lennox Zaman ; Joaquin Lau Jr ; Deon Gonzalez ; Sara Grove ; Landy Constantino ; Arnaldo Mendez ; Matty Pinto ; Andrew Marina ; Melinda Car ; Martha Fu ; Samuel Miles ; Tommy Jain ; Kolby Roman ; Moe Castorena V. ; [facility] Other Interventions: Discharge Summary Assessment (RN) Last Done: 09/04/22 13:38 Supervising Physician Co-Signing Physician Notes I personally examined the patient and verified all hathaway points of history and exam, discussed case, and agree with decision making with Dr Brewer. Headache better. Hopeful to go to rehab todayis a late addendum, [facility] approved and she was transferred. Vitals noted, in general she is awake and alert pleasant no distress. HEENT normocephalic atraumatic mucous membranes moist. Breathing unlabored no accessory muscle use good effort. Skin shows no rashes no pallor or icterus. Neuro without focal deficits. MigrainesI suspect it is probably both migraine and tension headaches playing off of each other. Prior to starting any sort of migraine prophylaxis medicinewe will utilize abortive therapy for the current migraine, and see how better glycemic control as well as better control of the tension headaches with OMT helps her overall headache burden before adding additional medication to her already fairly lengthy list. At least for now, OMT seems to have helped quite significantly. Tension headachessuspect would benefit from OMT. Somatic dysfunction cervical regionOMT done yesterday with significant improvement. Chest painrib relatedno complaints of this todayif persists/recurs likely would benefit from OMT as well Weaknessdoes not feel safe at homeshe does have a fairly unsteady gait to my reviewPT/OT eval and treat, rehab if possible. Stable [facility] transfer to [facility] Otherwise as above Resident Activity Tracking Resident Involvement: Resident Care Provided Care Provided: Adult Hospital Medicine
== END 2022-09-04 15:02 ==
LOC: ED 15:37 → SUATTDRO 22:39 → EDINP 22:39 → INTOOBSV 22:39 → 2E 09-01 00:30 → 3E 09-03 00:17
DX: Z79.899 Other long term (current) drug therapy; I25.10 Atherosclerotic heart disease of native coronary artery without angina pectoris; E11.9 Type 2 diabetes mellitus without complications; R42 Dizziness and giddiness; Z88.2 Allergy status to sulfonamides; Z87.891 Personal history of nicotine dependence; I25.2 Old myocardial infarction; Z79.4 Long term (current) use of insulin; Z79.82 Long term (current) use of aspirin; K21.9 Gastro-esophageal reflux disease without esophagitis; R51.9 Headache, unspecified; Z20.822 Contact with and (suspected) exposure to COVID-19; Z95.5 Presence of coronary angioplasty implant and graft; Z79.84 Long term (current) use of oral hypoglycemic drugs; Z88.1 Allergy status to other antibiotic agents; R07.9 Chest pain, unspecified

== ENCOUNTER 2022-10-06 19:37 | Observation (INO) ==
[2022-10-06] MEDS ORDERED: SODIUM CHLORIDE 0.9% 1000ML 500 ML IV ONE (20:44)
[2022-10-06 21:08] LABS: Basophils # (auto) 0.06 K/uL (0-0.2); Basophils % (auto) 0.9 %; Eosinophils # (auto) 0.09 K/uL (0-0.50); Eosinophils % (auto) 1.3 %; Hematocrit (blood only) 34.5 % (37.0-47.0); Hemoglobin 11.8 g/dl (12.0-16.0); Immature Granulocytes # (auto) 0.03 K/uL (0.01-0.20); Immature Granulocytes % (auto) 0.4 %; Lymphocytes # (auto) 1.86 K/uL (1.2-3.4); Lymphocytes % (auto) 27.8 %; Mean Corpuscular Hemoglobin 28.6 pg (25.0-34.0); Mean Corpuscular Hgb Conc 34.2 g/dL (32.0-36.0); Mean Corpuscular Volume 83.5 fL (80.0-100.0); Mean Platelet Volume 10.5 fL (9.4-12.4); Monocytes # (auto) 0.41 K/uL (0.11-0.59); Monocytes % (auto) 6.1 %; Neutrophils # (auto) 4.25 K/uL (1.40-6.50); Neutrophils % (auto) 63.5 %; Platelet Count 214 K/uL (130-400); RDW Coefficient of Variation 13.4 % (11.5-14.5); Red Blood Count 4.13 M/uL (4.20-5.40)
[2022-10-06 21:23] LABS: Albumin Globulin Ratio 1.4 (0.9-2); Albumin Level 3.7 gm/dl (3.4-5.0); BUN Creatinine Ratio 15.6 (10-20); Bilirubin,Total 0.7 mg/dl (0.2-1.0); Calcium 9.1 mg/dl (8.5-10.1); Est GFR (African American) 47.4 ml/min; Est GFR (Non-African American) 40.9 ml/min; Globulin 2.6 gm/dl (2.5-4.0); Magnesium 1.5 mg/dl (1.7-2.4); Potassium 4.2 mmol/L (3.5-5.1); Total Protein 6.3 gm/dl (6.0-8.3)
[2022-10-06 21:53] LABS: Appearance Urine Clear (Clear); Bilirubin Urine Negative (Negative); Blood Urine Negative (Negative); Color Urine Yellow; Glucose Urine UA 3+ (Negative); Ketones Urine Negative (Negative); Leukocyte Esterase Urine Negative (Negative); Nitrite Urine Negative (Negative); Protein Urine Negative (Negative); Specific Gravity Urine 1.031 (1.000-1.030); Urobilinogen Urine Negative (Negative)
--- NOTE | 2022-10-06 22:25 | Emergency Department Note ---
Impression & Plan Hypotension, Hyperglycemia, Hypomagnesemia ED Provider Note ED Provider Note NAME: SHIRA CUNNINGHAM AGE:77 SEX: Female : 1945 ARRIVES VIA: EMS INFORMANT: Patient ED PROVIDER(s): Maggie Posey DO CHIEF COMPLAINT: Hypotension HPI: This is a 77-year-old female presents emergency department due to concern for low blood pressure. Patient states she has a home nurse who comes twice a week to check on her. She states today when they checked her blood pressure it was low. She states they rechecked multiple times and each time it was low. The home nurse contacted their supervising physician and advised the patient to come to the emergency room for additional evaluation. Patient states has been eating and drinking normally and taking all medications as prescribed. She states she does have a history of high blood pressure but states her systolic blood pressures typically between 120 and 130 when she is taking her medications. Patient denies any headaches, dizziness, weakness, vomiting, chest pain, palpitations. She denies any recent change in urine or stools. She denies any recent trauma or falls. PAST MEDICAL HISTORY:See Below PAST SURGICAL HISTORY:See Below FAMILY HISTORY:See Below SOCIAL HISTORY:See Below HOME MEDICATIONS:See Below ALLERGIES:See Below VITALS:See Below PHYSICAL EXAMINATION: GENERAL: alert, well appearing, well nourished, no distress, non-toxic EYE EXAM: normal conjunctiva, PERRL and EOM's grossly intact OROPHARYNX: no exudate, no erythema, lips, buccal mucosa, and tongue normal and mucous membranes are moist NECK: supple, no nuchal rigidity, no adenopathy, non-tender LUNGS: Clear to auscultation. Normal chest wall mechanics, no w/r/r HEART: no murmurs, S1 normal and S2 normal ABDOMEN: abdomen soft, non-tender, normo-active bowel sounds, no masses, no rebound or guarding. BACK: Back is symmetrical on inspection and there is no deformity, no midline tenderness, no CVA tenderness. SKIN: no rashes, petechiae, orbruising UPPER EXTREMITIES: upper extremities are grossly normal. FROM, nml pulses b/l. LOWER EXTREMITIES: No pitting edema. FROM, nml pulses b/l. NEURO EXAM: Normal sensorium, cranial nerves II-XII grossly intact, normal sp eech, no facial droop,nogross weakness of arms, no gross weakness of legs. Gross sensation intact. No ataxia. Vital Signs: reviewed and remarkable Differential Diagnosis: ACS, dissection, cardiac tamponade, PE, occult infection, dehydration, SHERRIE, medication ADR, machine error, as well as others were considered MEDICAL DECISION MAKING: This is a 77-year-old female presents emergency department after being referred by her home nurse due to concern for hypotension. Patient asymptomatic. She was noted to be normotensive initially, however upon recheck was hypotensive compared to her reported baseline. Patient remained asymptomatic throughout. Given patient's complicated and extensive past medical history, labs drawn and sent, IV established, patient given a 500 mL bolus by myself during initial evaluation. It was noted patient did have improvement in her blood pressure during the bolus however once that ended her blood pressure trended back down. Labs revealed significant hyperglycemia in the 800s, no evidence of DKA or SHERRIE. Patient states she has been taking her diabetic medications as prescribed and then stated that she has been running high in the 300s at home. Patient was asymptomatic throughout while in the emergency room. Insulin drip started and IV fluids continued. Patient noted to be mildly hypomagnesemic. Hyponatremia likely dilutional from hyperglycemia. Case discussed with hospitalist for additional evaluation and management. Patient verbalized understanding of all results as discussed at bedside and was in agreement with plan for additional inpatient evaluation. Consultation(s): 2301: Discussed with Dr. Sanders. ER Treatment Provided: See below Diagnostics Interpreted By Me: -ECG: -Cardiac Monitoring: An order was placed for continuous cardiac monitoring. The monitor shows a rate of 60 with normal sinus rhythm. -Laboratory studies: As stated above and show below. -Imaging studies: [] Triage Nursing Note Reviewed Prior/Outside Records Reviewed Procedures: [] Critical Care: Critical care of 39 min performed to assess and manage high likelihood of life- threatening hypotension and hyperglycemia, involving labs and imaging performed with assessment to evaluate hypotension and hyperglycemia diagnosis with frequent reassessment. This time includes bedside time, treatment discussions with patient/family/consultants, documentation time and excludes procedure time. Past Med/Surg History Medical History Abrasion Accelerated essential hypertension Acute non-ST elevation myocardial infarction (NSTEMI) 11/28/2021 had [place] medical management and follow with dr kaylen jeter 02/09/2022 Asymptomatic bacteriuria Back pain Mckeon esophagus CAD (coronary artery disease) s/p stents to RCA November 2005; s/p stents to LAD, LCx in January 2006; s/p stents to RCA in 08/2006 Cervical pain (neck) Chest pain chronic chest pain and cardiac is negative Chest pain Chronic pain syndrome Depression Diabetes mellitus, type 2 IDDM Diabetic gastroparesis Diabetic peripheral neuropathy Dyslipidemia Elevated troponin Elevated troponin Fall Folic acid deficiency GERD without esophagitis History of COVID-2020 - resolved Hypotension IBS (irritable bowel syndrome) Lumbar spondylosis Myocardial Infarction [place]- November 2005, January 2006, Aug 2006 3 total within an 8 month span--HX OF CATH 2012 [facility] [place], FOLLOWS WITH DR. JULES Vitamin B12 deficiency Surgical History History of cardiac cath last 2012 @ [facility] [place], no stents--s/p stents to RCA November 2005; s/p stents to LAD, LCx in January 2006; s/p stents to RCA in 08/2006 History of cataract surgery BL History of cholecystectomy History of colonoscopy with polypectomy History of esophageal dilatation History of esophagogastroduodenoscopy (EGD) History of lumbar spinal fusion History of tooth extraction all teeth History of total hysterectomy with bilateral salpingo-oophorectomy (BSO) History of total right knee replacement (TKR) S/P coronary artery stent placement s/p stents to RCA November 2005; s/p stents to LAD, LCx in January 2006; s/p stents to RCA in 08/2006 Status post trigger finger release right thumb Family History Brother Myocardial infarction Anxiety Heart disease Hypertension Cancer Sister Family history of reaction to anesthesia difficulty waking Hypertension Heart disease Myocardial infarction Anxiety Cancer Diabetes Father Anxiety Heart disease Hypertension Mother Anxiety Hypertension Heart disease Unknown Cancer skin, GI Denies family history of Ovarian cancer Prostate cancer Breast cancer Colorectal cancer Stroke Social History Smoking Status: Never smoker Tobacco Type: Cigarettes Age Started Using Tobacco: 18; Age Quit Using Tobacco: 57; Cigarettes Per Day: 3 cigarettes a week; Second Hand Exposure: No; Do You Dip or Chew Tobacco: No; Tobacco Cessation Education Requested by Patient: No Hx Alcohol Use: No Hx Substance Use: No Preferred Language: Ugandan Communication Ability: Effective Visual Impairment: Limited Hearing Ability: Normal Cable Wirer Required: No Beliefs That Will Affect Care: None marital status: / Current Living Situation: Alone Current Living Situation Comment: apartment building current occupational status: retired and disabled How many Children do You have: 3 Feels Safe at Home: Yes Safety Concerns: Feels Safe At This Time Childhood Exposure to Second-Hand Smoke: No caffeine: Yes (drinks coffee, diet pepsi occasionally ) Dental Care, Regularly: No Physical Activity Frequency: Does not Exercise Seatbelt Use: always Sunscreen Use: No Assistive Devices: Cane, Denture - Upper, Glasses and Walker Allergies Allergies Allergy/AdvReac Type Severity Reaction Status Date / Time cephalexin Allergy Intermediate Rash and Verified 10/06/22 20:34 itchiness Cephalosporins Allergy Intermediate Rash and Verified 10/06/22 20:34 itchiness Sulfa (Sulfonamide Allergy Intermediate Hives Verified 10/06/22 20:34 Antibiotics) Home Meds Home Medications Medication Instructions Recorded Confirmed linaclotide 145 mcg capsule 145 mcg PO QAM PRN Constipation 04/05/19 10/06/22 (Linzess) pen needle, diabetic 32 gauge x 11/18/20 09/25/22 5/32" (BD Ultra-Fine [place] Pen Needle) flash glucose scanning reader 06/26/21 09/25/22 (FreeStyle Renan 2 [place]) flash glucose sensor (FreeStyle 06/26/21 09/25/22 Renan 2 Sensor kit) aspirin 81 mg tablet,delayed 81 mg PO QAM 10/24/21 10/06/22 release diclofenac sodium 1 % topical gel 2 g topical QID PRN Pain 10/31/21 10/06/22 (Arthritis Pain (diclofenac)) Previous Rx's Medication Instructions Recorded blood sugar diagnostic (OneTouch #200 ea 08/14/21 Verio test strips) nitroglycerin 0.4 mg sublingual 0.4 mg sublingual UD PRN Chest 12/08/21 tablet (Nitrostat) Pain #1 btl albuterol sulfate 90 mcg/actuation 2 inha inhalation QID PRN 01/10/22 aerosol inhaler shortness of breath or wheezing #1 g benzonatate 200 mg capsule 200 mg PO TID PRN cough #30 caps 01/15/22 fluticasone fur. 100 mcg-umeclid 1 inh inhalation DAILY #28 ea 02/11/22 62.5 mcg-vilant 25 mcg inhalat.powder (Trelegy Ellipta) alirocumab 75 mg/mL subcutaneous 75 mg subcut Q14D #2 mL 05/21/22 pen injector (Praluent Pen) insulin aspart U-100 100 unit/mL 24 unit (0.24 mL) subcut DAILY #15 08/24/22 (3 mL) subcutaneous pen (Novolog mL FlexPen U-100 Insulin aspart) insulin degludec 100 unit/mL (3 48 unit (0.48 mL) subcut QPM #15 mL 08/24/22 mL) subcutaneous pen (Tresiba FlexTouch U-100 insulin) cholecalciferol (vitamin D3) 25 1,000 unit PO QAM #90 tabs 09/17/22 mcg (1,000 unit) capsule (Vitamin D3) gabapentin 100 mg capsule 100 mg PO HS #90 caps 09/17/22 buspirone 10 mg tablet 10 mg PO TID #270 tabs 09/18/22 duloxetine 30 mg capsule,delayed 30 mg PO QAM #90 caps 09/18/22 release ezetimibe 10 mg tablet (Zetia) 10 mg PO QAM #90 tabs 09/18/22 famotidine 20 mg tablet 20 mg PO BID #180 tabs 09/18/22 isosorbide mononitrate 30 mg 60 mg PO QAM #180 tabs 09/18/22 tablet,extended release 24 hr lisinopril 10 mg tablet 10 mg PO QAM #90 tabs 09/18/22 metformin 500 mg tablet 1,000 mg PO BID #360 tabs 09/18/22 metoprolol succinate 100 mg 100 mg PO QAM #90 tabs 09/18/22 tablet,extended release 24 hr ondansetron HCl 4 mg tablet 4 mg PO Q8H PRN nausea and 09/18/22 vomiting #30 tabs pantoprazole 40 mg tablet,delayed 40 mg PO BID #180 tabs 09/18/22 release rosuvastatin 40 mg tablet 40 mg PO QAM #90 tabs 09/18/22 meclizine 25 mg tablet 25 mg PO BID PRN dizziness #30 tabs 10/05/22 Results & Data (ED) Vital Signs Vital Signs - 24 hr 10/06/22 19:47 10/06/22 19:47 10/06/22 20:11 Temperature 36.8 C Temperature Source Oral Pulse Rate 70 62 Pulse Rate [Right Radial] 62 Pulse Rhythm Regular Pulse Rhythm [Right Radial] Regular Pulse Strength Normal Pulse Strength [Right Radial] Normal Respiratory Rate 14 13 Respiratory Effort / Characteristics Non-Labored Spontaneous Non-Labored Spontaneous Respiratory Depth Normal Normal Respiratory Pattern Regular Blood Pressure 116/58 L Blood Pressure [Right Arm] 95/46 L Blood Pressure Mean 77 Blood Pressure Mean [Right Arm] 62 Blood Pressure Position Lying Pulse Oximetry 98 98 Oxygen Delivery Method Room Air Room Air Sepsis Recent Fever Within 48 Hours No Sepsis New/Unexplained Change in Mental Status N/A Sepsis Action Taken by Nursing No Action Required 10/06/22 19:46 10/06/22 20:00 10/06/22 20:10 Temperature Temperature Source Pulse Rate 64 62 65 Pulse Rate [Right Radial] Pulse Rhythm Pulse Rhythm [Right Radial] Pulse Strength Pulse Strength [Right Radial] Respiratory Rate 20 18 16 Respiratory Effort / Characteristics Respiratory Depth Respiratory Pattern Blood Pressure 95/46 L Blood Pressure [Right Arm] Blood Pressure Mean 62 Blood Pressure Mean [Right Arm] Blood Pressure Position Pulse Oximetry 96 Oxygen Delivery Method Room Air Sepsis Recent Fever Within 48 Hours Sepsis New/Unexplained Change in Mental Status Sepsis Action Taken by Nursing 10/06/22 20:15 10/06/22 20:30 10/06/22 20:32 Temperature Temperature Source Pulse Rate 63 61 59 L Pulse Rate [Right Radial] Pulse Rhythm Pulse Rhythm [Right Radial] Pulse Strength Pulse Strength [Right Radial] Respiratory Rate 21 18 17 Respiratory Effort / Characteristics Respiratory Depth Respiratory Pattern Blood Pressure 94/50 L Blood Pressure [Right Arm] Blood Pressure Mean 64 Blood Pressure Mean [Right Arm] Blood Pressure Position Pulse Oximetry 95 97 96 Oxygen Delivery Method Room Air Room Air Room Air Sepsis Recent Fever Within 48 Hours Sepsis New/Unexplained Change in Mental Status Sepsis Action Taken by Nursing 10/06/22 20:45 10/06/22 21:00 10/06/22 21:15 Temperature Temperature Source Pulse Rate 68 63 61 Pulse Rate [Right Radial] Pulse Rhythm Pulse Rhythm [Right Radial] Pulse Strength Pulse Strength [Right Radial] Respiratory Rate 16 18 15 Respiratory Effort / Characteristics Respiratory Depth Respiratory Pattern Blood Pressure 97/56 L 105/54 L 92/56 L Blood Pressure [Right Arm] Blood Pressure Mean 69 71 68 Blood Pressure Mean [Right Arm] Blood Pressure Position Pulse Oximetry 96 97 96 Oxygen Delivery Method Room Air Room Air Room Air Sepsis Recent Fever Within 48 Hours Sepsis New/Unexplained Change in Mental Status Sepsis Action Taken by Nursing 10/06/22 21:31 10/06/22 21:45 10/06/22 22:00 Temperature Temperature Source Pulse Rate 70 59 L 59 L Pulse Rate [Right Radial] Pulse Rhythm Pulse Rhythm [Right Radial] Pulse Strength Pulse Strength [Right Radial] Respiratory Rate 17 15 20 Respiratory Effort / Characteristics Respiratory Depth Respiratory Pattern Blood Pressure 124/63 97/65 L Blood Pressure [Right Arm] Blood Pressure Mean 83 75 Blood Pressure Mean [Right Arm] Blood Pressure Position Pulse Oximetry 97 97 95 Oxygen Delivery Method Room Air Room Air Room Air Sepsis Recent Fever Within 48 Hours Sepsis New/Unexplained Change in Mental Status Sepsis Action Taken by Nursing 10/06/22 22:01 10/06/22 22:15 10/06/22 22:30 Temperature Temperature Source Pulse Rate 61 58 L 63 Pulse Rate [Right Radial] Pulse Rhythm Pulse Rhythm [Right Radial] Pulse Strength Pulse Strength [Right Radial] Respiratory Rate 16 18 17 Respiratory Effort / Characteristics Respiratory Depth Respiratory Pattern Blood Pressure 91/66 L 95/57 L 108/54 L Blood Pressure [Right Arm] Blood Pressure Mean 74 69 72 Blood Pressure Mean [Right Arm] Blood Pressure Position Pulse Oximetry 95 92 94 Oxygen Delivery Method Room Air Room Air Room Air Sepsis Recent Fever Within 48 Hours Sepsis New/Unexplained Change in Mental Status Sepsis Action Taken by Nursing 10/06/22 22:45 10/06/22 23:00 10/06/22 23:15 Temperature Temperature Source Pulse Rate 62 64 65 Pulse Rate [Right Radial] Pulse Rhythm Pulse Rhythm [Right Radial] Pulse Strength Pulse Strength [Right Radial] Respiratory Rate 15 15 19 Respiratory Effort / Characteristics Respiratory Depth Respiratory Pattern Blood Pressure 92/52 L 113/59 L 104/64 Blood Pressure [Right Arm] Blood Pressure Mean 65 77 77 Blood Pressure Mean [Right Arm] Blood Pressure Position Pulse Oximetry 93 92 94 Oxygen Delivery Method Room Air Room Air Room Air Sepsis Recent Fever Within 48 Hours Sepsis New/Unexplained Change in Mental Status Sepsis Action Taken by Nursing 10/06/22 23:30 Temperature Temperature Source Pulse Rate 63 Pulse Rate [Right Radial] Pulse Rhythm Pulse Rhythm [Right Radial] Pulse Strength Pulse Strength [Right Radial] Respiratory Rate 17 Respiratory Effort / Characteristics Respiratory Depth Respiratory Pattern Blood Pressure 105/60 Blood Pressure [Right Arm] Blood Pressure Mean 75 Blood Pressure Mean [Right Arm] Blood Pressure Position Pulse Oximetry 94 Oxygen Delivery Method Room Air Sepsis Recent Fever Within 48 Hours Sepsis New/Unexplained Change in Mental Status Sepsis Action Taken by Nursing Laboratory Data 10/06/22 20:10 10/06/22 20:10 Lab Results 10/06/22 10/06/22 10/06/22 Range/Units 20:10 20:10 20:10 WBC 6.70 (4.8-10.8) K/ul RBC 4.13 L (4.20-5.40) M/uL Hgb 11.8 L (12.0-16.0) g/dl Hct 34.5 L (37.0-47.0) % MCV 83.5 (80.0-100.0) fL MCH 28.6 (25.0-34.0) pg MCHC 34.2 (32.0-36.0) g/dL RDW Std Deviation 41.0 (36.4-46.3) fL RDW Coeff of Tino 13.4 (11.5-14.5) % Plt Count 214 (130-400) K/uL MPV 10.5 (9.4-12.4) fL Immature Gran % (Auto) 0.4 % Neut % (Auto) 63.5 % Lymph % (Auto) 27.8 % [place] % (Auto) 6.1 % Eos % (Auto) 1.3 % Baso % (Auto) 0.9 % Neut # (Auto) 4.25 (1.40-6.50) K/uL Lymph # (Auto) 1.86 (1.2-3.4) K/uL [place] # (Auto) 0.41 (0.11-0.59) K/uL Eos # (Auto) 0.09 (0-0.50) K/uL Baso # (Auto) 0.06 (0-0.2) K/uL Immature Gran # (Auto) 0.03 (0.01-0.20) K/uL Sodium 126 L (136-145) mmol/L Potassium 4.2 (3.5-5.1) mmol/L Chloride 94 L (98-107) mmol/L Carbon Dioxide 24 (21-32) mmol/L Anion Gap 8 (3-11) BUN 20 (6-23) mg/dl Creatinine 1.28 H (0.6-1.2) mg/dl Est Cr Clr Drug Dosing 36.0 ml/min Est GFR ( Amer) 47.4 ml/min Est GFR (Non-Af Amer) 40.9 ml/min BUN/Creatinine Ratio 15.6 (10-20) Glucose 820 H* (70-99(Fasting)) mg/dl POC Glucose (70-99) mg/dl Osmolality (280-300) mOsm/kg Calcium 9.1 (8.5-10.1) mg/dl Phosphorus (2.5-4.9) mg/dl Magnesium 1.5 L (1.7-2.4) mg/dl Total Bilirubin 0.7 (0.2-1.0) mg/dl AST 12 L (13-39) U/L ALT 16 (7-52) U/L Alkaline Phosphatase 68 (34-104) U/L Troponin I High Sens 5.0 (0-14) pg/ml Total Protein 6.3 (6.0-8.3) gm/dl Albumin 3.7 (3.4-5.0) gm/dl Globulin 2.6 (2.5-4.0) gm/dl Albumin/Globulin Ratio 1.4 (0.9-2) TSH 1.397 (0.300-4.500) uIu/ml Urine Color Urine Appearance (Clear) Urine pH (4.5-7.5) Ur Specific [place] (1.000-1.030) Urine Protein (Negative) Urine Glucose (UA) (Negative) Urine Ketones (Negative) Urine Blood (Negative) Urine Nitrite (Negative) Urine Bilirubin (Negative) Urine Urobilinogen (Negative) Ur Leukocyte Esterase (Negative) SARS-CoV-2 (PCR) (Negative) Influenza Type A (PCR) (Neg) Influenza Type B (PCR) (Neg) RSV (RT-PCR) (Neg) 10/06/22 10/06/22 10/06/22 Range/Units 21:00 21:00 21:28 WBC (4.8-10.8) K/ul RBC (4.20-5.40) M/uL Hgb (12.0-16.0) g/dl Hct (37.0-47.0) % MCV (80.0-100.0) fL MCH (25.0-34.0) pg MCHC (32.0-36.0) g/dL RDW Std Deviation (36.4-46.3) fL RDW Coeff of Tino (11.5-14.5) % Plt Count (130-400) K/uL MPV (9.4-12.4) fL Immature Gran % (Auto) % Neut % (Auto) % Lymph % (Auto) % [place] % (Auto) % Eos % (Auto) % Baso % (Auto) % Neut # (Auto) (1.40-6.50) K/uL Lymph # (Auto) (1.2-3.4) K/uL [place] # (Auto) (0.11-0.59) K/uL Eos # (Auto) (0-0.50) K/uL Baso # (Auto) (0-0.2) K/uL Immature Gran # (Auto) (0.01-0.20) K/uL Sodium (136-145) mmol/L Potassium (3.5-5.1) mmol/L Chloride (98-107) mmol/L Carbon Dioxide (21-32) mmol/L Anion Gap (3-11) BUN (6-23) mg/dl Creatinine (0.6-1.2) mg/dl Est Cr Clr Drug Dosing ml/min Est GFR ( Amer) ml/min Est GFR (Non-Af Amer) ml/min BUN/Creatinine Ratio (10-20) Glucose (70-99(Fasting)) mg/dl POC Glucose (70-99) mg/dl Osmolality 311 H (280-300) mOsm/kg Calcium (8.5-10.1) mg/dl Phosphorus 3.7 (2.5-4.9) mg/dl Magnesium (1.7-2.4) mg/dl Total Bilirubin (0.2-1.0) mg/dl AST (13-39) U/L ALT (7-52) U/L Alkaline Phosphatase (34-104) U/L Troponin I High Sens (0-14) pg/ml Total Protein (6.0-8.3) gm/dl Albumin (3.4-5.0) gm/dl Globulin (2.5-4.0) gm/dl Albumin/Globulin Ratio (0.9-2) TSH (0.300-4.500) uIu/ml Urine Color Yellow Urine Appearance Clear (Clear) Urine pH 5.0 (4.5-7.5) Ur Specific [place] 1.031 H (1.000-1.030) Urine Protein Negative (Negative) Urine Glucose (UA) 3+ H (Negative) Urine Ketones Negative (Negative) Urine Blood Negative (Negative) Urine Nitrite Negative (Negative) Urine Bilirubin Negative (Negative) Urine Urobilinogen Negative (Negative) Ur Leukocyte Esterase Negative (Negative) SARS-CoV-2 (PCR) (Negative) Influenza Type A (PCR) (Neg) Influenza Type B (PCR) (Neg) RSV (RT-PCR) (Neg) 10/06/22 10/06/22 Range/Units 22:42 23:14 WBC (4.8-10.8) K/ul RBC (4.20-5.40) M/uL Hgb (12.0-16.0) g/dl Hct (37.0-47.0) % MCV (80.0-100.0) fL MCH (25.0-34.0) pg MCHC (32.0-36.0) g/dL RDW Std Deviation (36.4-46.3) fL RDW Coeff of Tino (11.5-14.5) % Plt Count (130-400) K/uL MPV (9.4-12.4) fL Immature Gran % (Auto) % Neut % (Auto) % Lymph % (Auto) % [place] % (Auto) % Eos % (Auto) % Baso % (Auto) % Neut # (Auto) (1.40-6.50) K/uL Lymph # (Auto) (1.2-3.4) K/uL [place] # (Auto) (0.11-0.59) K/uL Eos # (Auto) (0-0.50) K/uL Baso # (Auto) (0-0.2) K/uL Immature Gran # (Auto) (0.01-0.20) K/uL Sodium (136-145) mmol/L Potassium (3.5-5.1) mmol/L Chloride (98-107) mmol/L Carbon Dioxide (21-32) mmol/L Anion Gap (3-11) BUN (6-23) mg/dl Creatinine (0.6-1.2) mg/dl Est Cr Clr Drug Dosing ml/min Est GFR ( Amer) ml/min Est GFR (Non-Af Amer) ml/min BUN/Creatinine Ratio (10-20) Glucose (70-99(Fasting)) mg/dl POC Glucose 571 H* (70-99) mg/dl Osmolality (280-300) mOsm/kg Calcium (8.5-10.1) mg/dl Phosphorus (2.5-4.9) mg/dl Magnesium (1.7-2.4) mg/dl Total Bilirubin (0.2-1.0) mg/dl AST (13-39) U/L ALT (7-52) U/L Alkaline Phosphatase (34-104) U/L Troponin I High Sens (0-14) pg/ml Total Protein (6.0-8.3) gm/dl Albumin (3.4-5.0) gm/dl Globulin (2.5-4.0) gm/dl Albumin/Globulin Ratio (0.9-2) TSH (0.300-4.500) uIu/ml Urine Color Urine Appearance (Clear) Urine pH (4.5-7.5) Ur Specific [place] (1.000-1.030) Urine Protein (Negative) Urine Glucose (UA) (Negative) Urine Ketones (Negative) Urine Blood (Negative) Urine Nitrite (Negative) Urine Bilirubin (Negative) Urine Urobilinogen (Negative) Ur Leukocyte Esterase (Negative) SARS-CoV-2 (PCR) NEGATIVE (Negative) Influenza Type A (PCR) Negative (Neg) Influenza Type B (PCR) Negative (Neg) RSV (RT-PCR) Negative (Neg) Administered Medications Insulin Human Regular 250 (units/ Sodium Chloride) 250 mls @ 3.5 mls/hr IV .Q24H [facility]; Protocol Stop: 11/05/22 22:29 Last Titration: 10/07/22 01:48 Dose: 3.5 units/hr, 3.5 mls/hr Documented By: [employer]ADER[employer] INSTRUCTOR Co-signed By: TG Titration: 10/07/22 00:31 Dose: 5.8 units/hr, 5.8 mls/hr Documented By: KMB Co-signed By: snow maker: 10/06/22 23:23 Dose: 7.2 units/hr, 7.2 mls/hr Documented By: CESAR Co-signed By: EVIE Lactated Ringer's (Lr) 1,000 mls @ 125 mls/hr IV .Q8H LEON Stop: 10/07/22 17:56 Last Admin: 10/07/22 03:09 Dose: 125 mls/hr Documented By: CHELSEY Discontinued Medications Sodium Chloride (Nss 1000ml) 500 mls @ 999 mls/hr IV .Q31M ONE Stop: 10/06/22 21:14 Last Infusion: 10/06/22 21:16 Dose: 0 mls/hr Documented By: Admin: 10/06/22 21:00 Dose: 999 mls/hr Documented By: CESAR Parenteral Electrolytes (Normosol-R) 1,000 mls @ 125 mls/hr IV .Q8H LEON Stop: 11/05/22 22:29 Last Infusion: 10/07/22 03:27 Dose: 0 mls/hr Documented By: Infusion: 10/07/22 03:12 Dose: 0 mls/hr Documented By: Infusion: 10/07/22 00:45 Dose: 125 mls/hr Documented By: Infusion: 10/06/22 23:34 Dose: 0 mls/hr Documented By: Admin: 10/06/22 23:31 Dose: 125 mls/hr Documented By: CESAR Insulin Human Regular (Novolin-R Bolus From Bag) 7.2 units IV ONE ONE Stop: 10/06/22 23:01 Last Admin: 10/06/22 23:24 Dose: 7.2 units Documented By: CESAR Co-signed By: EVIE Discharge Plan Visit Data Chief Complaint: Hypotension Stated Complaint: HYPOTENSION ED Provider: Maggie Posey Discharge Problem: Hypotension, Hyperglycemia, Hypomagnesemia Patient Disposition: Admitted As Inpatient Discharge Instructions Interventions: ED Discharge Assessment Last Done: 10/07/22 01:41
[2022-10-06] MEDS ORDERED: GLUCOSE 40% GEL 15 GM TUBE PO PRN (22:26)
[2022-10-06] MEDS ORDERED: GLUCAGON FOR INJ 1 MG VIAL SQ PRN (22:26)
[2022-10-06] MEDS ORDERED: CARBOHYDRATES FOR HYPOGLYCEMIA PO PRN (22:26)
[2022-10-06] MEDS ORDERED: HHS GOAL RANGE 250-350 mg/dl ONE (22:26)
[2022-10-06] MEDS ORDERED: DEXTROSE 50% 50 ML SYRINGE IV PRN (22:26)
[2022-10-06] MEDS ORDERED: GLUCOSE 10 TAB/TUBE PO PRN (22:26)
[2022-10-06] MEDS ORDERED: INSULIN REGULAR 250 UNITS in SODIUM CHLORIDE 0.9% 247.5 ML IV SCH (22:30)
[2022-10-06] MEDS ORDERED: NORMOSOL-R 1,000 ML IV SCH (22:30)
[2022-10-06] MEDS ORDERED: NovoLIN-R BOLUS FROM BAG IV ONE (23:00)
--- NOTE | 2022-10-06 23:34 | History & Physical Report ---
Date of Service October 06, 2022 Assessment & Plan (1) Hypotension: Plan: 77-year-old female presenting from home with report of hypotension. Patient with low blood pressure, 90s over 50s in the ER. She has a history of hypertension for which she takes isosorbide, lisinopril, metoprolol. Blood pressure presently 105/60. Patient appears clinically dry on physical exammost likely secondary to increased urinary frequency in setting of hyperglycemia. Continue IV fluidsLR at 125 mL/h x 2 L Hold antihypertensives Monitor blood pressure (2) Hyperglycemia: Plan: Patient found to be hyperglycemic with initial blood sugar of 820. She is compliant with her home medications. Reports that her blood sugars have been high over the last week in the 300s. She has no anion gap. No ketones present on UA. Does appear clinically dry on exam. She has been administered IV fluids and insulin drip initiated in the ER. Repeat blood sugar prior to initiation of insulin drip = 571 Suspect HHNS We will continue insulin drip Continue LR at 125 mL/h x 2 L Pharmacy glycemic management consult appreciated Check serum osmolality with a.m. labs Check VBG with a.m. lab (3) CAD (coronary artery disease): Plan: Patient denies chest pain. Troponin is within normal limits. No acute ischemic changes on EKG Continue aspirin 81 mg p.o. daily Continue Zetia 10 mg p.o. every morning Continue Crestor 40 mg p.o. every morning (4) CKD (chronic kidney disease), stage III: Plan: Patient with CKD stage III at baseline. Presents with acute elevation of creatinine = 1.28 from baseline of approximately 1. Suspect volume contraction in setting of polyuria IV fluid with LR at 125 mL/h Avoid nephrotoxic agents Repeat chemistry in the morning (5) GERD (gastroesophageal reflux disease): Plan: Chronic. Stable. Continue Protonix 40 mg p.o. twice daily Continue Pepcid 20 mg p.o. twice daily (6) HTN (hypertension): Plan: Presently with borderline low blood pressure Hold antihypertensive agents Continue to monitor (7) Dyslipidemia: Plan: Chronic. Continue Crestor and Zetia History of Present Illness Chief Complaint: Hypotension Primary Care Provider: Lalito Pimentel MD Claire Rosas is a 77-year-old female with history of hypertension, diabetes, hyperlipidemia, GERD and CAD presenting from home with chief complaint of hypotension. Patient has a home nurse that comes in several times per week. Today the nurse came in and checked her blood pressure was found to be low. Patient thinks her systolic was approximately 88 mmHg. Patient was instructed to come to the ER for further evaluation. She has no complaints. Denies dizziness, chest pain, palpitations, cough, shortness of breath. No falls. No abdominal pain, nausea, vomiting, diarrhea or constipation. She reports that she is eating well. She does report some polyuria and polydipsia as well as some elevated blood sugars over the last weekover 300. No additional complaints at this time In the ER patient found to be mildly bradycardic at 58 bpm, blood pressure 95/57, no respiratory distress, saturating 94% on room air. ER course: Regular insulin 7.2 units IV Insulin drip initiated Normal saline 500 mL Normosol at 125 mL/h Allergies Allergy/AdvReac Type Severity Reaction Status Date / Time cephalexin Allergy Intermediate Rash and Verified 10/06/22 20:34 itchiness Cephalosporins Allergy Intermediate Rash and Verified 10/06/22 20:34 itchiness Sulfa (Sulfonamide Allergy Intermediate Hives Verified 10/06/22 20:34 Antibiotics) Home Medications Medication Instructions Recorded Confirmed Type linaclotide 145 mcg capsule 145 mcg PO QAM PRN Constipation 04/05/19 10/06/22 History (Linzess) pen needle, diabetic 32 gauge x 11/18/20 09/25/22 History 5/32" (BD Ultra-Fine [place] Pen Needle) flash glucose scanning reader 06/26/21 09/25/22 History (FreeStyle Renan 2 [place]) flash glucose sensor (FreeStyle 06/26/21 09/25/22 History Renan 2 Sensor kit) blood sugar diagnostic (BeakerTouch #200 ea 08/14/21 09/25/22 Rx Verio test strips) aspirin 81 mg tablet,delayed 81 mg PO QAM 10/24/21 10/06/22 History release diclofenac sodium 1 % topical gel 2 g topical QID PRN Pain 10/31/21 10/06/22 History (Arthritis Pain (diclofenac)) nitroglycerin 0.4 mg sublingual 0.4 mg sublingual UD PRN Chest 12/08/21 10/06/22 Rx tablet (Nitrostat) Pain #1 btl albuterol sulfate 90 mcg/actuation 2 inha inhalation QID PRN 01/10/22 10/06/22 Rx aerosol inhaler shortness of breath or wheezing #1 g benzonatate 200 mg capsule 200 mg PO TID PRN cough #30 caps 01/15/22 10/06/22 Rx fluticasone fur. 100 mcg-umeclid 1 inh inhalation DAILY #28 ea 02/11/22 10/06/22 Rx 62.5 mcg-vilant 25 mcg inhalat.powder (Trelegy Ellipta) alirocumab 75 mg/mL subcutaneous 75 mg subcut Q14D #2 mL 05/21/22 10/06/22 Rx pen injector (Praluent Pen) insulin aspart U-100 100 unit/mL 24 unit (0.24 mL) subcut DAILY #15 08/24/22 10/06/22 Rx (3 mL) subcutaneous pen (Novolog mL FlexPen U-100 Insulin aspart) insulin degludec 100 unit/mL (3 48 unit (0.48 mL) subcut QPM #15 mL 08/24/22 10/06/22 Rx mL) subcutaneous pen (Tresiba FlexTouch U-100 insulin) cholecalciferol (vitamin D3) 25 1,000 unit PO QAM #90 tabs 09/17/22 10/06/22 Rx mcg (1,000 unit) capsule (Vitamin D3) gabapentin 100 mg capsule 100 mg PO HS #90 caps 09/17/22 10/06/22 Rx buspirone 10 mg tablet 10 mg PO TID #270 tabs 09/18/22 10/06/22 Rx duloxetine 30 mg capsule,delayed 30 mg PO QAM #90 caps 09/18/22 10/06/22 Rx release ezetimibe 10 mg tablet (Zetia) 10 mg PO QAM #90 tabs 09/18/22 10/06/22 Rx famotidine 20 mg tablet 20 mg PO BID #180 tabs 09/18/22 10/06/22 Rx isosorbide mononitrate 30 mg 60 mg PO QAM #180 tabs 09/18/22 10/06/22 Rx tablet,extended release 24 hr lisinopril 10 mg tablet 10 mg PO QAM #90 tabs 09/18/22 10/06/22 Rx metformin 500 mg tablet 1,000 mg PO BID #360 tabs 09/18/22 10/06/22 Rx metoprolol succinate 100 mg 100 mg PO QAM #90 tabs 09/18/22 10/06/22 Rx tablet,extended release 24 hr ondansetron HCl 4 mg tablet 4 mg PO Q8H PRN nausea and 09/18/22 10/06/22 Rx vomiting #30 tabs pantoprazole 40 mg tablet,delayed 40 mg PO BID #180 tabs 09/18/22 10/06/22 Rx release rosuvastatin 40 mg tablet 40 mg PO QAM #90 tabs 09/18/22 10/06/22 Rx meclizine 25 mg tablet 25 mg PO BID PRN dizziness #30 tabs 10/05/22 10/06/22 Rx Past Med/Surg History Medical History Abrasion Accelerated essential hypertension Acute non-ST elevation myocardial infarction (NSTEMI) 11/28/2021 had [place] medical management and follow with dr abdullahi apt 02/09/2022 Asymptomatic bacteriuria Back pain [place]ke[place] esophagus CAD (coronary artery disease) s/p stents to RCA November 2005; s/p stents to LAD, LCx in January 2006; s/p stents to RCA in 08/2006 Cervical pain (neck) Chest pain chronic chest pain and cardiac is negative Chest pain Chronic pain syndrome Depression Diabetes mellitus, type 2 IDDM Diabetic gastroparesis Diabetic peripheral neuropathy Dyslipidemia Elevated troponin Elevated troponin Fall Folic acid deficiency GERD without esophagitis History of COVID-2020 - resolved Hypotension IBS (irritable bowel syndrome) Lumbar spondylosis Myocardial Infarction [place]- November 2005, January 2006, Aug 2006 3 total within an 8 month span--HX OF CATH 2012 [facility] [place], FOLLOWS WITH DR. ABDULLAHI Vitamin B12 deficiency Surgical History History of cardiac cath last 2012 @ [facility] [place], no stents--s/p stents to RCA November 2005; s/p stents to LAD, LCx in January 2006; s/p stents to RCA in 08/2006 History of cataract surgery BL History of cholecystectomy History of colonoscopy with polypectomy History of esophageal dilatation History of esophagogastroduodenoscopy (EGD) History of lumbar spinal fusion History of tooth extraction all teeth History of total hysterectomy with bilateral salpingo-oophorectomy (BSO) History of total right knee replacement (TKR) S/P coronary artery stent placement s/p stents to RCA November 2005; s/p stents to LAD, LCx in January 2006; s/p stents to RCA in 08/2006 Status post trigger finger release right thumb Family History Brother Myocardial infarction Anxiety Heart disease Hypertension Cancer Sister Family history of reaction to anesthesia difficulty waking Hypertension Heart disease Myocardial infarction Anxiety Cancer Diabetes Father Anxiety Heart disease Hypertension Mother Anxiety Hypertension Heart disease Unknown Cancer skin, GI Denies family history of Ovarian cancer Prostate cancer Breast cancer Colorectal cancer Stroke Social History Smoking Status: Unknown if ever smoked Tobacco Type: Cigarettes Age Started Using Tobacco: 18; Age Quit Using Tobacco: 57; Cigarettes Per Day: 3 cigarettes a week; Second Hand Exposure: No; Hx Alcohol Use: No Hx Substance Use: No Preferred Language: Slovak Communication Ability: Effective Visual Impairment: Limited Hearing Ability: Normal Certified Industrial Hygienist Required: No Beliefs That Will Affect Care: None marital status: / Current Living Situation: Alone Current Living Situation Comment: apartment building current occupational status: retired and disabled How many Children do You have: 3 Feels Safe at Home: Yes Childhood Exposure to Second-Hand Smoke: No caffeine: Yes (drinks coffee, diet pepsi occasionally ) Dental Care, Regularly: No Physical Activity Frequency: Does not Exercise Seatbelt Use: always Sunscreen Use: No Assistive Devices: Cane and Walker Review of Systems Review of Systems: All systems reviewed & are unremarkable except as noted in HPI & below Physical Exam Physical Exam: General: patient resting comfortably, NAD, non-toxic in appearance, AA&O x 4 Skin: warm, dry, intact, no rashes or lesions HEENT: NC/AT, PERRL, EOMI, anicteric sclera, conjunctiva without injection, external ear normal to inspection and nontender, nares patent, dry mucus membranes, dentition intact, no oropharyngeal lesions, neck supple, trachea midline, no LAD, no thyromegaly, no JVD Heart: +S1/S2, regular, no m/r/g Lungs: equal air entry bilaterally, no rales/rhonchi/wheezes Abd: +BS, soft, NT/ND, no masses/organomegaly/ascites Ext: warm, 2+ pulses in UE/LE bilaterally, no clubbing/cyanosis or edema Neuro: nonfocal, patient AA&O x 4, speech intact, no facial droop, moving all extremities on command with equal strength 5/5 Results & Data Results & Data ([facility]) Vital Signs (Past 12 Hours) Vital Signs Temp Pulse Pulse Resp BP BP Pulse Ox 10/06/22 22:15 58 L 18 95/57 L 92 10/06/22 22:01 61 16 91/66 L 95 10/06/22 22:00 59 L 20 95 10/06/22 21:45 59 L 15 97/65 L 97 10/06/22 21:31 70 17 124/63 97 10/06/22 21:15 61 15 92/56 L 96 10/06/22 21:00 63 18 105/54 L 97 10/06/22 20:45 68 16 97/56 L 96 10/06/22 20:32 59 L 17 94/50 L 96 10/06/22 20:30 61 18 97 10/06/22 20:15 63 21 95 10/06/22 20:10 65 16 95/46 L 10/06/22 20:00 62 18 10/06/22 19:46 64 20 96 10/06/22 20:11 62 13 95/46 L 98 10/06/22 19:47 62 10/06/22 19:47 36.8 C 70 14 116/58 L 98 O2 Del Method 10/06/22 22:15 Room Air 10/06/22 22:01 Room Air 10/06/22 22:00 Room Air 10/06/22 21:45 Room Air 10/06/22 21:31 Room Air 10/06/22 21:15 Room Air 10/06/22 21:00 Room Air 10/06/22 20:45 Room Air 10/06/22 20:32 Room Air 10/06/22 20:30 Room Air 10/06/22 20:15 Room Air 10/06/22 20:10 10/06/22 20:00 10/06/22 19:46 Room Air 10/06/22 20:11 Room Air 10/06/22 19:47 10/06/22 19:47 Room Air Laboratory Results Laboratory Results WBC 6.70 K/ul (4.8-10.8) 10/06/22 20:10 RBC 4.13 M/uL (4.20-5.40) L 10/06/22 20:10 Hgb 11.8 g/dl (12.0-16.0) L 10/06/22 20:10 Hct 34.5 % (37.0-47.0) L 10/06/22 20:10 MCV 83.5 fL (80.0-100.0) 10/06/22 20:10 MCH 28.6 pg (25.0-34.0) 10/06/22 20:10 MCHC 34.2 g/dL (32.0-36.0) 10/06/22 20:10 RDW Std Deviation 41.0 fL (36.4-46.3) 10/06/22 20:10 RDW Coeff of Tino 13.4 % (11.5-14.5) 10/06/22 20:10 Plt Count 214 K/uL (130-400) 10/06/22 20:10 MPV 10.5 fL (9.4-12.4) 10/06/22 20:10 Immature Gran % (Auto) 0.4 % 10/06/22 20:10 Neut % (Auto) 63.5 % 10/06/22 20:10 Lymph % (Auto) 27.8 % 10/06/22 20:10 [place] % (Auto) 6.1 % 10/06/22 20:10 Eos % (Auto) 1.3 % 10/06/22 20:10 Baso % (Auto) 0.9 % 10/06/22 20:10 Neut # (Auto) 4.25 K/uL (1.40-6.50) 10/06/22 20:10 Lymph # (Auto) 1.86 K/uL (1.2-3.4) 10/06/22 20:10 [place] # (Auto) 0.41 K/uL (0.11-0.59) 10/06/22 20:10 Eos # (Auto) 0.09 K/uL (0-0.50) 10/06/22 20:10 Baso # (Auto) 0.06 K/uL (0-0.2) 10/06/22 20:10 Immature Gran # (Auto) 0.03 K/uL (0.01-0.20) 10/06/22 20:10 Sodium 126 mmol/L (136-145) L 10/06/22 20:10 Potassium 4.2 mmol/L (3.5-5.1) 10/06/22 20:10 Chloride 94 mmol/L (98-107) L 10/06/22 20:10 Carbon Dioxide 24 mmol/L (21-32) 10/06/22 20:10 Anion Gap 8 (3-11) 10/06/22 20:10 BUN 20 mg/dl (6-23) 10/06/22 20:10 Creatinine 1.28 mg/dl (0.6-1.2) H 10/06/22 20:10 Est Cr Clr Drug Dosing 36.0 ml/min 10/06/22 20:10 Est GFR ( Amer) 47.4 ml/min 10/06/22 20:10 Est GFR (Non-Af Amer) 40.9 ml/min 10/06/22 20:10 BUN/Creatinine Ratio 15.6 (10-20) 10/06/22 20:10 Glucose 820 mg/dl (70-99(Fasting)) H* 10/06/22 20:10 POC Glucose 571 mg/dl (70-99) H* 10/06/22 23:14 Calcium 9.1 mg/dl (8.5-10.1) 10/06/22 20:10 Phosphorus 3.7 mg/dl (2.5-4.9) 10/06/22 21:00 Magnesium 1.5 mg/dl (1.7-2.4) L 10/06/22 20:10 Total Bilirubin 0.7 mg/dl (0.2-1.0) 10/06/22 20:10 AST 12 U/L (13-39) L 10/06/22 20:10 ALT 16 U/L (7-52) 10/06/22 20:10 Alkaline Phosphatase 68 U/L (34-104) 10/06/22 20:10 Troponin I High Sens 5.0 pg/ml (0-14) 10/06/22 20:10 Total Protein 6.3 gm/dl (6.0-8.3) 10/06/22 20:10 Albumin 3.7 gm/dl (3.4-5.0) 10/06/22 20:10 Globulin 2.6 gm/dl (2.5-4.0) 10/06/22 20:10 Albumin/Globulin Ratio 1.4 (0.9-2) 10/06/22 20:10 TSH 1.397 uIu/ml (0.300-4.500) 10/06/22 20:10 Urine Color Yellow 10/06/22 21:28 Urine Appearance Clear (Clear) 10/06/22 21: Urine pH 5.0 (4.5-7.5) 10/06/22 21: Ur Specific [place] 1.031 (1.000-1.030) H 10/06/22 21:28 Urine Protein Negative (Negative) 10/06/22 21: Urine Glucose (UA) 3+ (Negative) H 10/06/22 21: Urine Ketones Negative (Negative) 10/06/22 21:28 Urine Blood Negative (Negative) 10/06/22 21:28 Urine Nitrite Negative (Negative) 10/06/22 21:28 Urine Bilirubin Negative (Negative) 10/06/22 21: Urine Urobilinogen Negative (Negative) 10/06/22 21: Ur Leukocyte Esterase Negative (Negative) 10/06/22 21:28 SARS-CoV-2 (PCR) NEGATIVE (Negative) 10/06/22 22:42 Influenza Type A (PCR) Negative (Neg) 10/06/22 22:42 Influenza Type B (PCR) Negative (Neg) 10/06/22 22:42 RSV (RT-PCR) Negative (Neg) 10/06/22 22:42 PG Care Time/CCT Total # of Minutes Spent Total Time Spent with Patient: Total time spent is greater than 50% in coordination of care (as documented) at patient's floor/unit and/or counseling patient: Coding Level of Care Code 95709 INT INP/OBS CARE 3/75MIN Diagnoses Hypotension I95.9 Hyperglycemia R73.9 CAD (coronary artery disease) I25.10 Coronary Disease-Associated Artery/Lesion type: [place] artery [place] vs. transplanted heart: sun[place]aq heart Associated angina: angina presence unspecified CKD (chronic kidney disease), stage III N18.30 GERD (gastroesophageal reflux disease) K21.9 Esophagitis presence: without esophagitis HTN (hypertension) I10 Dyslipidemia E78.5 (3) CAD (coronary artery disease) Coronary Disease-Associated Artery/Lesion type: [place] artery [place] vs. transplanted heart: sun[place] heart Associated angina: angina presence unspecified Qualified Code(s): I25.10 - Atherosclerotic heart disease of [place] coronary artery without angina pectoris (5) GERD (gastroesophageal reflux disease) Esophagitis presence: without esophagitis Qualified Code(s): K21.9 - Gastro- esophageal reflux disease without esophagitis
[2022-10-06 23:36] LABS: Influenza A virus by PCR Negative (Neg); Influenza B virus by PCR Negative (Neg); RSV by PCR Negative (Neg); SARS CoV2 RNA(COVID-19) Ceph NEGATIVE (Negative)
[2022-10-07] MEDS ORDERED: ACETAMINOPHEN 325 MG TAB PO PRN (01:57)
[2022-10-07] MEDS ORDERED: PHARMACY GLYCEMIC MGMT CONSULT PRN (01:57)
[2022-10-07] MEDS ORDERED: ONDANSETRON INJ 2 MG/ML 2 ML VIAL IV PRN (01:57)
[2022-10-07] MEDS ORDERED: ALBUTEROL HFA 8 GM INHALER INH PRN (01:57)
[2022-10-07] MEDS ORDERED: LINACLOTIDE 145 MCG CAPSULE PO PRN (01:57)
[2022-10-07] MEDS ORDERED: DICLOFENAC SOD 1% GEL 100 GM TUBE EXT PRN (01:57)
[2022-10-07] MEDS: LACTATED RINGER'S 1,000 ML IV SCH ×2 (03:09→10:53)
[2022-10-07 06:33] LABS: Base Excess VBG 4.9 mEq/L; HCO3 VBG 31 mmol/L; Oxygen Saturation VBG < 60.0 %; PCO2 VBG 51 mmHg (38-50); PO2 VBG 33 mmHg; pH VBG 7.39 (7.36-7.41)
[2022-10-07 06:35] LABS: Hemoglobin 11.5 g/dl (12.0-16.0); Mean Corpuscular Hemoglobin 28.1 pg (25.0-34.0); Mean Corpuscular Hgb Conc 34.8 g/dL (32.0-36.0); Mean Corpuscular Volume 80.7 fL (80.0-100.0); Mean Platelet Volume 10.1 fL (9.4-12.4); Platelet Count 197 K/uL (130-400); RDW Coefficient of Variation 13.1 % (11.5-14.5); RDW Standard Deviation 37.8 fL (36.4-46.3); Red Blood Count 4.09 M/uL (4.20-5.40); White Blood Count 5.13 K/ul (4.8-10.8)
[2022-10-07] MEDS ORDERED: INSULIN ASPART PER UNIT SC SCH (07:30)
[2022-10-07 07:35] LABS: BUN Creatinine Ratio 15.8 (10-20); Calcium 8.8 mg/dl (8.5-10.1); Creatinine Clr Calc Pharmacy 48.7 ml/min; Est GFR (African American) 67.9 ml/min; Est GFR (Non-African American) 58.6 ml/min; Potassium 3.1 mmol/L (3.5-5.1)
[2022-10-07] MEDS: busPIRone 5 MG TAB PO SCH ×3 (07:47→19:44)
[2022-10-07] MEDS: DULoxetine HCL 30 MG CAP PO SCH (07:47)
[2022-10-07] MEDS: ASPIRIN 81 MG ECTAB PO SCH (07:47)
[2022-10-07] MEDS: FAMOTIDINE 20 MG TAB PO SCH ×2 (07:48→19:45)
[2022-10-07] MEDS: EZETIMIBE 10 MG TABLET PO SCH (07:48)
[2022-10-07] MEDS: FLUTICASONE FUROATE 100MCG 14 PUFFS/INHALER INH SCH (07:49)
[2022-10-07] MEDS: UMECLIDINIUM/VILANTEROL 62.5/25MCG 7 PUFFS/INHALER INH SCH (07:49)
[2022-10-07] MEDS: MAGNESIUM OXIDE 400 MG TAB PO SCH (07:50)
[2022-10-07] MEDS: PANTOprazole 40 MG TAB PO SCH ×2 (07:51→19:45)
[2022-10-07] MEDS: ROSUVASTATIN CALCIUM 20 MG TAB PO SCH (07:51)
[2022-10-07] MEDS ORDERED: POTASSIUM CHLORIDE CRTAB 20 MEQ TABCR PO STA ×2 (08:10→16:57)
--- NOTE | 2022-10-07 08:20 | Hospitalist Progress Note ---
Date of Service October 07, 2022 Assessment & Plan (1) Hypotension: Plan: 77-year-old female presenting from home with report of hypotension. Patient with low blood pressure, 90s over 50s in the ER. She has a history of hypertension for which she takes isosorbide, lisinopril, metoprolol. Blood pressure presently 105/60. Patient appears clinically dry on physical exammost likely secondary to increased urinary frequency in setting of hyperglycemia. 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 States compliance w/ meds at home and Renan monitor (not on currently) however last endocrinology note states rampantly uncontrolled BSGs w/ readings consistently >300 for weeks She tells me she takes her insulin 4x/daily at home but unsure of dosing as on sliding scale Likely missing doses/skipping based on repeat A1c 12.2 No anion gap on admit, 3+ glucose on UA without ketones. Urine osm 311 elevated LR IVF replacement, x2 bags No longer on insulin gtt Pharmacy on consult for glycemic management BSGs improved Reached out to DM educator, seen last admission for further education. Diet advanced, DM/AHA K 3.1/mag 1.5-- replacement ordered. Repeat labs/replacement as needed Would ask glucose and syrup weigher to coordinate for close endocrinology f/u at discharge +/- sales consultant residential manager at patients PCP office for additional assistance. (3) CAD (coronary artery disease): Plan: Patient denies chest pain. Troponin is within normal limits. No acute ischemic changes on EKG Continue aspirin 81 mg p.o. daily Continue Zetia 10 mg p.o. every morning Continue Crestor 40 mg p.o. every morning Baseline anemia -- prior borderline B12/folate at 220/5.87 and will repeat w/ AM labs and replacement as needed (4) Anemia: Plan: hgb around baseline, no bleeding reported iron panel w/o significant abn, of note prior B12/folate borderline and will repeat in AM Monitor CBC/for any bleeding (5) CKD (chronic kidney disease), stage III: Plan: Patient with CKD stage III at baseline. Presents with acute kidney injury/elevation in Cr to 1.28 from normal baseline, volume contraction from dehydration suspected (also could have had some ATN from low BPs as well) Holding lisinopril/antiHTN agents IVF ordered as above x2 L, Cr normalize on repeat Avoid nephrotoxic medications Monitor BMP (6) GERD (gastroesophageal reflux disease): Plan: Chronic. Stable. Hx barretts Continue Protonix 40 mg p.o. twice daily Continue Pepcid 20 mg p.o. twice daily inquire about prior screening/follow up with GI for surveillance (7) HTN (hypertension): Plan: Admitted w/ hypotension AntiHTN agents on hold, BPs improved -- likely able to resume meds in AM (8) Dyslipidemia: Plan: Chronic. Continue Crestor and Zetia prior endo notes w/ uncontrolled lipids, improved w/ most recent check TRG 317--> 118, Chol 268--> 130, LDL 167-->74 Plan continued inpatient stay repeat labs this afternoon/electrolyte replacement as indicated PT/OT consulted Admission and Anticipated Discharge Date Admission Date: October 06, 2022 Supervising Physician Co-Signing Physician Notes The patient was not seen by me. The chart was reviewed. Case discussed with JAVI Woods. Agree with assessment and plan Subjective eval this morning, doing alright. hungry. got clear liquids this morning, no GI upset/reflux. To advance for lunch. Chronic dizziness, checking carotid doppler for room for completeness but discussed could be from her chronic elevated BSGs.States she takes insulin 4x/day at home, unsure of dosing as it "depends on what her sugars are". Discussed getting DM educator on board and close f/u endocrinology. SHe states she has been using Renan monitor but doesn't have one on currently. Discussed changes to regiment o make easier/increased long acting insulin and close f/u. No fever/chills, chest pain, shortness of breath. Good appetite. Moved her bowels this morning. Physical Exam Physical Exam: General: WD female sitting up in chair about to go down for testing, NAD HEENT: head normocephalic, atraumatic, mm slightly dry (reported improved), trachea midline Resp: CTAB, no w/c, on room air CV: RRR (slightly bradycardic), no significant m/r/g, no pitting edema/calf tenderness GI: +BS, soft/NT MSK/Neuro: moves all extremities, no facial droop/slurred speech, strength equal Psych: AOx3, pleasant and cooperative, ?ID/poor insight Results & Data Results & Data ([facility]) Vital Signs (Past 12 Hours) Vital Signs Temp Pulse Pulse Resp BP BP Pulse Ox 10/07/22 07:25 57 L 10/07/22 07:21 36.5 C 61 18 109/67 97 10/07/22 03:00 36.7 C 59 L 20 96/59 L 94 10/07/22 01:57 10/07/22 01:57 36.6 C 63 18 99/63 L 96 10/07/22 01:41 97 10/07/22 00:46 83 21 118/68 10/07/22 00:45 90 20 10/07/22 00:30 67 18 84/56 L 10/07/22 00:15 63 16 101/59 L 10/07/22 00:00 79 21 105/60 10/06/22 23:45 64 16 104/59 L 10/06/22 23:43 63 10/06/22 23:30 63 17 105/60 94 10/06/22 23:15 65 19 104/64 94 10/06/22 23:00 64 15 113/59 L 92 10/06/22 22:45 62 15 92/52 L 93 10/06/22 22:30 63 17 108/54 L 94 10/06/22 22:15 58 L 18 95/57 L 92 10/06/22 22:01 61 16 91/66 L 95 10/06/22 22:00 59 L 20 95 10/06/22 21:45 59 L 15 97/65 L 97 10/06/22 21:31 70 17 124/63 97 10/06/22 21:15 61 15 92/56 L 96 10/06/22 21:00 63 18 105/54 L 97 10/06/22 20:45 68 16 97/56 L 96 10/06/22 20:32 59 L 17 94/50 L 96 10/06/22 20:30 61 18 97 Pulse Ox O2 Del Method O2 Del Method 10/07/22 07:25 10/07/22 07:21 Room Air 10/07/22 03:00 Room Air 10/07/22 01:57 94 Room Air 10/07/22 01:57 Room Air 10/07/22 01:41 Room Air 10/07/22 00:46 10/07/22 00:45 10/07/22 00:30 10/07/22 00:15 10/07/22 00:00 10/06/22 23:45 10/06/22 23:43 10/06/22 23:30 Room Air 10/06/22 23:15 Room Air 10/06/22 23:00 Room Air 10/06/22 22:45 Room Air 10/06/22 22:30 Room Air 10/06/22 22:15 Room Air 10/06/22 22:01 Room Air 10/06/22 22:00 Room Air 10/06/22 21:45 Room Air 10/06/22 21:31 Room Air 10/06/22 21:15 Room Air 10/06/22 21:00 Room Air 10/06/22 20:45 Room Air 10/06/22 20:32 Room Air 10/06/22 20:30 Room Air Laboratory Results 10/07/22 10/07/22 10/07/22 Range/Units 11:42 10:47 09:41 WBC (4.8-10.8) K/ul RBC (4.20-5.40) M/uL Hgb (12.0-16.0) g/dl Hct (37.0-47.0) % MCV (80.0-100.0) fL MCH (25.0-34.0) pg MCHC (32.0-36.0) g/dL RDW Std Deviation (36.4-46.3) fL RDW Coeff of Tino (11.5-14.5) % Plt Count (130-400) K/uL MPV (9.4-12.4) fL Immature Gran % (Auto) % Neut % (Auto) % Lymph % (Auto) % Parmer % (Auto) % Eos % (Auto) % Baso % (Auto) % Neut # (Auto) (1.40-6.50) K/uL Lymph # (Auto) (1.2-3.4) K/uL [place]mer # (Auto) (0.11-0.59) K/uL Eos # (Auto) (0-0.50) K/uL Baso # (Auto) (0-0.2) K/uL Immature Gran # (Auto) (0.01-0.20) K/uL VBG pH (7.36-7.41) VBG pCO2 (38-50) mmHg VBG pO2 mmHg VBG HCO3 mmol/L VBG O2 Saturation % VBG Base Excess mEq/L Sodium (136-145) mmol/L Potassium (3.5-5.1) mmol/L Chloride (98-107) mmol/L Carbon Dioxide (21-32) mmol/L Anion Gap (3-11) BUN (6-23) mg/dl Creatinine (0.6-1.2) mg/dl Est Cr Clr Drug Dosing ml/min Est GFR ( Amer) ml/min Est GFR (Non-Af Amer) ml/min BUN/Creatinine Ratio (10-20) Glucose (70-99(Fasting)) mg/dl POC Glucose 154 H 135 H 132 H (70-99) mg/dl Estimat Average Glucose mg/dl Hemoglobin A1c (4.5-5.6) % Osmolality (280-300) mOsm/kg Calcium (8.5-10.1) mg/dl Phosphorus (2.5-4.9) mg/dl Magnesium (1.7-2.4) mg/dl Iron (35-150) mcg/dl TIBC (250-450) mcg/dl Unsaturated IBC (155-355) mcg/dl Transferrin % Sat (15-50) % Ferritin (8-388) ng/ml Total Bilirubin (0.2-1.0) mg/dl AST (13-39) U/L ALT (7-52) U/L Alkaline Phosphatase (34-104) U/L Troponin I High Sens (0-14) pg/ml Total Protein (6.0-8.3) gm/dl Albumin (3.4-5.0) gm/dl Globulin (2.5-4.0) gm/dl Albumin/Globulin Ratio (0.9-2) TSH (0.300-4.500) uIu/ml Urine Color Urine Appearance (Clear) Urine pH (4.5-7.5) Ur Specific [place] (1.000-1.030) Urine Protein (Negative) Urine Glucose (UA) (Negative) Urine Ketones (Negative) Urine Blood (Negative) Urine Nitrite (Negative) Urine Bilirubin (Negative) Urine Urobilinogen (Negative) Ur Leukocyte Esterase (Negative) SARS-CoV-2 (PCR) (Negative) Influenza Type A (PCR) (Neg) Influenza Type B (PCR) (Neg) RSV (RT-PCR) (Neg) 10/07/22 10/07/22 10/07/22 Range/Units 08:44 07:37 07:20 WBC (4.8-10.8) K/ul RBC (4.20-5.40) M/uL Hgb (12.0-16.0) g/dl Hct (37.0-47.0) % MCV (80.0-100.0) fL MCH (25.0-34.0) pg MCHC (32.0-36.0) g/dL RDW Std Deviation (36.4-46.3) fL RDW Coeff of Tino (11.5-14.5) % Plt Count (130-400) K/uL MPV (9.4-12.4) fL Immature Gran % (Auto) % Neut % (Auto) % Lymph % (Auto) % Parmer % (Auto) % Eos % (Auto) % Baso % (Auto) % Neut # (Auto) (1.40-6.50) K/uL Lymph # (Auto) (1.2-3.4) K/uL [place]mer # (Auto) (0.11-0.59) K/uL Eos # (Auto) (0-0.50) K/uL Baso # (Auto) (0-0.2) K/uL Immature Gran # (Auto) (0.01-0.20) K/uL VBG pH (7.36-7.41) VBG pCO2 (38-50) mmHg VBG pO2 mmHg VBG HCO3 mmol/L VBG O2 Saturation % VBG Base Excess mEq/L Sodium (136-145) mmol/L Potassium (3.5-5.1) mmol/L Chloride (98-107) mmol/L Carbon Dioxide (21-32) mmol/L Anion Gap (3-11) BUN (6-23) mg/dl Creatinine (0.6-1.2) mg/dl Est Cr Clr Drug Dosing ml/min Est GFR ( Amer) ml/min Est GFR (Non-Af Amer) ml/min BUN/Creatinine Ratio (10-20) Glucose (70-99(Fasting)) mg/dl POC Glucose 145 H 156 H 156 H (70-99) mg/dl Estimat Average Glucose mg/dl Hemoglobin A1c (4.5-5.6) % Osmolality (280-300) mOsm/kg Calcium (8.5-10.1) mg/dl Phosphorus (2.5-4.9) mg/dl Magnesium (1.7-2.4) mg/dl Iron (35-150) mcg/dl TIBC (250-450) mcg/dl Unsaturated IBC (155-355) mcg/dl Transferrin % Sat (15-50) % Ferritin (8-388) ng/ml Total Bilirubin (0.2-1.0) mg/dl AST (13-39) U/L ALT (7-52) U/L Alkaline Phosphatase (34-104) U/L Troponin I High Sens (0-14) pg/ml Total Protein (6.0-8.3) gm/dl Albumin (3.4-5.0) gm/dl Globulin (2.5-4.0) gm/dl Albumin/Globulin Ratio (0.9-2) TSH (0.300-4.500) uIu/ml Urine Color Urine Appearance (Clear) Urine pH (4.5-7.5) Ur Specific [place] (1.000-1.030) Urine Protein (Negative) Urine Glucose (UA) (Negative) Urine Ketones (Negative) Urine Blood (Negative) Urine Nitrite (Negative) Urine Bilirubin (Negative) Urine Urobilinogen (Negative) Ur Leukocyte Esterase (Negative) SARS-CoV-2 (PCR) (Negative) Influenza Type A (PCR) (Neg) Influenza Type B (PCR) (Neg) RSV (RT-PCR) (Neg) 10/07/22 10/07/22 10/07/22 Range/Units 06:34 06:13 06:13 WBC (4.8-10.8) K/ul RBC (4.20-5.40) M/uL Hgb (12.0-16.0) g/dl Hct (37.0-47.0) % MCV (80.0-100.0) fL MCH (25.0-34.0) pg MCHC (32.0-36.0) g/dL RDW Std Deviation (36.4-46.3) fL RDW Coeff of Tino (11.5-14.5) % Plt Count (130-400) K/uL MPV (9.4-12.4) fL Immature Gran % (Auto) % Neut % (Auto) % Lymph % (Auto) % Parmer % (Auto) % Eos % (Auto) % Baso % (Auto) % Neut # (Auto) (1.40-6.50) K/uL Lymph # (Auto) (1.2-3.4) K/uL [place]mer # (Auto) (0.11-0.59) K/uL Eos # (Auto) (0-0.50) K/uL Baso # (Auto) (0-0.2) K/uL Immature Gran # (Auto) (0.01-0.20) K/uL VBG pH 7.39 (7.36-7.41) VBG pCO2 51 H (38-50) mmHg VBG pO2 33 mmHg VBG HCO3 31 mmol/L VBG O2 Saturation < 60.0 % VBG Base Excess 4.9 mEq/L Sodium (136-145) mmol/L Potassium (3.5-5.1) mmol/L Chloride (98-107) mmol/L Carbon Dioxide (21-32) mmol/L Anion Gap (3-11) BUN (6-23) mg/dl Creatinine (0.6-1.2) mg/dl Est Cr Clr Drug Dosing ml/min Est GFR ( Amer) ml/min Est GFR (Non-Af Amer) ml/min BUN/Creatinine Ratio (10-20) Glucose (70-99(Fasting)) mg/dl POC Glucose 182 H (70-99) mg/dl Estimat Average Glucose mg/dl Hemoglobin A1c (4.5-5.6) % Osmolality (280-300) mOsm/kg Calcium (8.5-10.1) mg/dl Phosphorus (2.5-4.9) mg/dl Magnesium (1.7-2.4) mg/dl Iron Cancelled (35-150) mcg/dl TIBC Cancelled (250-450) mcg/dl Unsaturated IBC Cancelled (155-355) mcg/dl Transferrin % Sat Cancelled (15-50) % Ferritin Cancelled (8-388) ng/ml Total Bilirubin (0.2-1.0) mg/dl AST (13-39) U/L ALT (7-52) U/L Alkaline Phosphatase (34-104) U/L Troponin I High Sens (0-14) pg/ml Total Protein (6.0-8.3) gm/dl Albumin (3.4-5.0) gm/dl Globulin (2.5-4.0) gm/dl Albumin/Globulin Ratio (0.9-2) TSH (0.300-4.500) uIu/ml Urine Color Urine Appearance (Clear) Urine pH (4.5-7.5) Ur Specific [place] (1.000-1.030) Urine Protein (Negative) Urine Glucose (UA) (Negative) Urine Ketones (Negative) Urine Blood (Negative) Urine Nitrite (Negative) Urine Bilirubin (Negative) Urine Urobilinogen (Negative) Ur Leukocyte Esterase (Negative) SARS-CoV-2 (PCR) (Negative) Influenza Type A (PCR) (Neg) Influenza Type B (PCR) (Neg) RSV (RT-PCR) (Neg) 10/07/22 10/07/22 10/07/22 Range/Units 06:13 06:13 05:53 WBC 5.13 (4.8-10.8) K/ul RBC 4.09 L (4.20-5.40) M/uL Hgb 11.5 L (12.0-16.0) g/dl Hct 33.0 L (37.0-47.0) % MCV 80.7 (80.0-100.0) fL MCH 28.1 (25.0-34.0) pg MCHC 34.8 (32.0-36.0) g/dL RDW Std Deviation 37.8 (36.4-46.3) fL RDW Coeff of Tino 13.1 (11.5-14.5) % Plt Count 197 (130-400) K/uL MPV 10.1 (9.4-12.4) fL Immature Gran % (Auto) % Neut % (Auto) % Lymph % (Auto) % Parmer % (Auto) % Eos % (Auto) % Baso % (Auto) % Neut # (Auto) (1.40-6.50) K/uL Lymph # (Auto) (1.2-3.4) K/uL [place]mer # (Auto) (0.11-0.59) K/uL Eos # (Auto) (0-0.50) K/uL Baso # (Auto) (0-0.2) K/uL Immature Gran # (Auto) (0.01-0.20) K/uL VBG pH (7.36-7.41) VBG pCO2 (38-50) mmHg VBG pO2 mmHg VBG HCO3 mmol/L VBG O2 Saturation % VBG Base Excess mEq/L Sodium 136 D (136-145) mmol/L Potassium 3.1 L D (3.5-5.1) mmol/L Chloride 102 (98-107) mmol/L Carbon Dioxide 30 (21-32) mmol/L Anion Gap 4 (3-11) BUN 15 (6-23) mg/dl Creatinine 0.95 D (0.6-1.2) mg/dl Est Cr Clr Drug Dosing 48.7 ml/min Est GFR ( Amer) 67.9 ml/min Est GFR (Non-Af Amer) 58.6 ml/min BUN/Creatinine Ratio 15.8 (10-20) Glucose 200 H (70-99(Fasting)) mg/dl POC Glucose 198 H (70-99) mg/dl Estimat Average Glucose mg/dl Hemoglobin A1c (4.5-5.6) % Osmolality (280-300) mOsm/kg Calcium 8.8 (8.5-10.1) mg/dl Phosphorus (2.5-4.9) mg/dl Magnesium (1.7-2.4) mg/dl Iron 50 (35-150) mcg/dl TIBC 223 L (250-450) mcg/dl Unsaturated IBC 173 (155-355) mcg/dl Transferrin % Sat 22 (15-50) % Ferritin 153.0 (8-388) ng/ml Total Bilirubin (0.2-1.0) mg/dl AST (13-39) U/L ALT (7-52) U/L Alkaline Phosphatase (34-104) U/L Troponin I High Sens (0-14) pg/ml Total Protein (6.0-8.3) gm/dl Albumin (3.4-5.0) gm/dl Globulin (2.5-4.0) gm/dl Albumin/Globulin Ratio (0.9-2) TSH (0.300-4.500) uIu/ml Urine Color Urine Appearance (Clear) Urine pH (4.5-7.5) Ur Specific [place] (1.000-1.030) Urine Protein (Negative) Urine Glucose (UA) (Negative) Urine Ketones (Negative) Urine Blood (Negative) Urine Nitrite (Negative) Urine Bilirubin (Negative) Urine Urobilinogen (Negative) Ur Leukocyte Esterase (Negative) SARS-CoV-2 (PCR) (Negative) Influenza Type A (PCR) (Neg) Influenza Type B (PCR) (Neg) RSV (RT-PCR) (Neg) 10/07/22 10/07/22 10/07/22 Range/Units 04:34 04:12 03:45 WBC (4.8-10.8) K/ul RBC (4.20-5.40) M/uL Hgb (12.0-16.0) g/dl Hct (37.0-47.0) % MCV (80.0-100.0) fL MCH (25.0-34.0) pg MCHC (32.0-36.0) g/dL RDW Std Deviation (36.4-46.3) fL RDW Coeff of Tino (11.5-14.5) % Plt Count (130-400) K/uL MPV (9.4-12.4) fL Immature Gran % (Auto) % Neut % (Auto) % Lymph % (Auto) % [place] % (Auto) % Eos % (Auto) % Baso % (Auto) % Neut # (Auto) (1.40-6.50) K/uL Lymph # (Auto) (1.2-3.4) K/uL [place]mer # (Auto) (0.11-0.59) K/uL Eos # (Auto) (0-0.50) K/uL Baso # (Auto) (0-0.2) K/uL Immature Gran # (Auto) (0.01-0.20) K/uL VBG pH (7.36-7.41) VBG pCO2 (38-50) mmHg VBG pO2 mmHg VBG HCO3 mmol/L VBG O2 Saturation % VBG Base Excess mEq/L Sodium (136-145) mmol/L Potassium (3.5-5.1) mmol/L Chloride (98-107) mmol/L Carbon Dioxide (21-32) mmol/L Anion Gap (3-11) BUN (6-23) mg/dl Creatinine (0.6-1.2) mg/dl Est Cr Clr Drug Dosing ml/min Est GFR ( Amer) ml/min Est GFR (Non-Af Amer) ml/min BUN/Creatinine Ratio (10-20) Glucose (70-99(Fasting)) mg/dl POC Glucose 211 H 200 H 209 H (70-99) mg/dl Estimat Average Glucose mg/dl Hemoglobin A1c (4.5-5.6) % Osmolality (280-300) mOsm/kg Calcium (8.5-10.1) mg/dl Phosphorus (2.5-4.9) mg/dl Magnesium (1.7-2.4) mg/dl Iron (35-150) mcg/dl TIBC (250-450) mcg/dl Unsaturated IBC (155-355) mcg/dl Transferrin % Sat (15-50) % Ferritin (8-388) ng/ml Total Bilirubin (0.2-1.0) mg/dl AST (13-39) U/L ALT (7-52) U/L Alkaline Phosphatase (34-104) U/L Troponin I High Sens (0-14) pg/ml Total Protein (6.0-8.3) gm/dl Albumin (3.4-5.0) gm/dl Globulin (2.5-4.0) gm/dl Albumin/Globulin Ratio (0.9-2) TSH (0.300-4.500) uIu/ml Urine Color Urine Appearance (Clear) Urine pH (4.5-7.5) Ur Specific [place] (1.000-1.030) Urine Protein (Negative) Urine Glucose (UA) (Negative) Urine Ketones (Negative) Urine Blood (Negative) Urine Nitrite (Negative) Urine Bilirubin (Negative) Urine Urobilinogen (Negative) Ur Leukocyte Esterase (Negative) SARS-CoV-2 (PCR) (Negative) Influenza Type A (PCR) (Neg) Influenza Type B (PCR) (Neg) RSV (RT-PCR) (Neg) 10/07/22 10/07/22 10/07/22 Range/Units 03:22 03:11 02:54 WBC (4.8-10.8) K/ul RBC (4.20-5.40) M/uL Hgb (12.0-16.0) g/dl Hct (37.0-47.0) % MCV (80.0-100.0) fL MCH (25.0-34.0) pg MCHC (32.0-36.0) g/dL RDW Std Deviation (36.4-46.3) fL RDW Coeff of Tino (11.5-14.5) % Plt Count (130-400) K/uL MPV (9.4-12.4) fL Immature Gran % (Auto) % Neut % (Auto) % Lymph % (Auto) % [place] % (Auto) % Eos % (Auto) % Baso % (Auto) % Neut # (Auto) (1.40-6.50) K/uL Lymph # (Auto) (1.2-3.4) K/uL [place] # (Auto) (0.11-0.59) K/uL Eos # (Auto) (0-0.50) K/uL Baso # (Auto) (0-0.2) K/uL Immature Gran # (Auto) (0.01-0.20) K/uL VBG pH (7.36-7.41) VBG pCO2 (38-50) mmHg VBG pO2 mmHg VBG HCO3 mmol/L VBG O2 Saturation % VBG Base Excess mEq/L Sodium (136-145) mmol/L Potassium (3.5-5.1) mmol/L Chloride (98-107) mmol/L Carbon Dioxide (21-32) mmol/L Anion Gap (3-11) BUN (6-23) mg/dl Creatinine (0.6-1.2) mg/dl Est Cr Clr Drug Dosing ml/min Est GFR ( Amer) ml/min Est GFR (Non-Af Amer) ml/min BUN/Creatinine Ratio (10-20) Glucose (70-99(Fasting)) mg/dl POC Glucose 190 H 176 H 190 H (70-99) mg/dl Estimat Average Glucose mg/dl Hemoglobin A1c (4.5-5.6) % Osmolality (280-300) mOsm/kg Calcium (8.5-10.1) mg/dl Phosphorus (2.5-4.9) mg/dl Magnesium (1.7-2.4) mg/dl Iron (35-150) mcg/dl TIBC (250-450) mcg/dl Unsaturated IBC (155-355) mcg/dl Transferrin % Sat (15-50) % Ferritin (8-388) ng/ml Total Bilirubin (0.2-1.0) mg/dl AST (13-39) U/L ALT (7-52) U/L Alkaline Phosphatase (34-104) U/L Troponin I High Sens (0-14) pg/ml Total Protein (6.0-8.3) gm/dl Albumin (3.4-5.0) gm/dl Globulin (2.5-4.0) gm/dl Albumin/Globulin Ratio (0.9-2) TSH (0.300-4.500) uIu/ml Urine Color Urine Appearance (Clear) Urine pH (4.5-7.5) Ur Specific [place] (1.000-1.030) Urine Protein (Negative) Urine Glucose (UA) (Negative) Urine Ketones (Negative) Urine Blood (Negative) Urine Nitrite (Negative) Urine Bilirubin (Negative) Urine Urobilinogen (Negative) Ur Leukocyte Esterase (Negative) SARS-CoV-2 (PCR) (Negative) Influenza Type A (PCR) (Neg) Influenza Type B (PCR) (Neg) RSV (RT-PCR) (Neg) 10/07/22 10/07/22 10/07/22 Range/Units 02:38 02:20 01:14 WBC (4.8-10.8) K/ul RBC (4.20-5.40) M/uL Hgb (12.0-16.0) g/dl Hct (37.0-47.0) % MCV (80.0-100.0) fL MCH (25.0-34.0) pg MCHC (32.0-36.0) g/dL RDW Std Deviation (36.4-46.3) fL RDW Coeff of Tino (11.5-14.5) % Plt Count (130-400) K/uL MPV (9.4-12.4) fL Immature Gran % (Auto) % Neut % (Auto) % Lymph % (Auto) % [place] % (Auto) % Eos % (Auto) % Baso % (Auto) % Neut # (Auto) (1.40-6.50) K/uL Lymph # (Auto) (1.2-3.4) K/uL [place] # (Auto) (0.11-0.59) K/uL Eos # (Auto) (0-0.50) K/uL Baso # (Auto) (0-0.2) K/uL Immature Gran # (Auto) (0.01-0.20) K/uL VBG pH (7.36-7.41) VBG pCO2 (38-50) mmHg VBG pO2 mmHg VBG HCO3 mmol/L VBG O2 Saturation % VBG Base Excess mEq/L Sodium (136-145) mmol/L Potassium (3.5-5.1) mmol/L Chloride (98-107) mmol/L Carbon Dioxide (21-32) mmol/L Anion Gap (3-11) BUN (6-23) mg/dl Creatinine (0.6-1.2) mg/dl Est Cr Clr Drug Dosing ml/min Est GFR ( Amer) ml/min Est GFR (Non-Af Amer) ml/min BUN/Creatinine Ratio (10-20) Glucose (70-99(Fasting)) mg/dl POC Glucose 208 H 230 H 301 H* (70-99) mg/dl Estimat Average Glucose mg/dl Hemoglobin A1c (4.5-5.6) % Osmolality (280-300) mOsm/kg Calcium (8.5-10.1) mg/dl Phosphorus (2.5-4.9) mg/dl Magnesium (1.7-2.4) mg/dl Iron (35-150) mcg/dl TIBC (250-450) mcg/dl Unsaturated IBC (155-355) mcg/dl Transferrin % Sat (15-50) % Ferritin (8-388) ng/ml Total Bilirubin (0.2-1.0) mg/dl AST (13-39) U/L ALT (7-52) U/L Alkaline Phosphatase (34-104) U/L Troponin I High Sens (0-14) pg/ml Total Protein (6.0-8.3) gm/dl Albumin (3.4-5.0) gm/dl Globulin (2.5-4.0) gm/dl Albumin/Globulin Ratio (0.9-2) TSH (0.300-4.500) uIu/ml Urine Color Urine Appearance (Clear) Urine pH (4.5-7.5) Ur Specific [place] (1.000-1.030) Urine Protein (Negative) Urine Glucose (UA) (Negative) Urine Ketones (Negative) Urine Blood (Negative) Urine Nitrite (Negative) Urine Bilirubin (Negative) Urine Urobilinogen (Negative) Ur Leukocyte Esterase (Negative) SARS-CoV-2 (PCR) (Negative) Influenza Type A (PCR) (Neg) Influenza Type B (PCR) (Neg) RSV (RT-PCR) (Neg) 10/07/22 10/06/22 10/06/22 Range/Units 00:18 23:14 22:42 WBC (4.8-10.8) K/ul RBC (4.20-5.40) M/uL Hgb (12.0-16.0) g/dl Hct (37.0-47.0) % MCV (80.0-100.0) fL MCH (25.0-34.0) pg MCHC (32.0-36.0) g/dL RDW Std Deviation (36.4-46.3) fL RDW Coeff of Tino (11.5-14.5) % Plt Count (130-400) K/uL MPV (9.4-12.4) fL Immature Gran % (Auto) % Neut % (Auto) % Lymph % (Auto) % [place] % (Auto) % Eos % (Auto) % Baso % (Auto) % Neut # (Auto) (1.40-6.50) K/uL Lymph # (Auto) (1.2-3.4) K/uL [place] # (Auto) (0.11-0.59) K/uL Eos # (Auto) (0-0.50) K/uL Baso # (Auto) (0-0.2) K/uL Immature Gran # (Auto) (0.01-0.20) K/uL VBG pH (7.36-7.41) VBG pCO2 (38-50) mmHg VBG pO2 mmHg VBG HCO3 mmol/L VBG O2 Saturation % VBG Base Excess mEq/L Sodium (136-145) mmol/L Potassium (3.5-5.1) mmol/L Chloride (98-107) mmol/L Carbon Dioxide (21-32) mmol/L Anion Gap (3-11) BUN (6-23) mg/dl Creatinine (0.6-1.2) mg/dl Est Cr Clr Drug Dosing ml/min Est GFR ( Amer) ml/min Est GFR (Non-Af Amer) ml/min BUN/Creatinine Ratio (10-20) Glucose (70-99(Fasting)) mg/dl POC Glucose 442 H* 571 H* (70-99) mg/dl Estimat Average Glucose mg/dl Hemoglobin A1c (4.5-5.6) % Osmolality (280-300) mOsm/kg Calcium (8.5-10.1) mg/dl Phosphorus (2.5-4.9) mg/dl Magnesium (1.7-2.4) mg/dl Iron (35-150) mcg/dl TIBC (250-450) mcg/dl Unsaturated IBC (155-355) mcg/dl Transferrin % Sat (15-50) % Ferritin (8-388) ng/ml Total Bilirubin (0.2-1.0) mg/dl AST (13-39) U/L ALT (7-52) U/L Alkaline Phosphatase (34-104) U/L Troponin I High Sens (0-14) pg/ml Total Protein (6.0-8.3) gm/dl Albumin (3.4-5.0) gm/dl Globulin (2.5-4.0) gm/dl Albumin/Globulin Ratio (0.9-2) TSH (0.300-4.500) uIu/ml Urine Color Urine Appearance (Clear) Urine pH (4.5-7.5) Ur Specific [place] (1.000-1.030) Urine Protein (Negative) Urine Glucose (UA) (Negative) Urine Ketones (Negative) Urine Blood (Negative) Urine Nitrite (Negative) Urine Bilirubin (Negative) Urine Urobilinogen (Negative) Ur Leukocyte Esterase (Negative) SARS-CoV-2 (PCR) NEGATIVE (Negative) Influenza Type A (PCR) Negative (Neg) Influenza Type B (PCR) Negative (Neg) RSV (RT-PCR) Negative (Neg) 10/06/22 10/06/22 10/06/22 Range/Units 21:28 21:00 21:00 WBC (4.8-10.8) K/ul RBC (4.20-5.40) M/uL Hgb (12.0-16.0) g/dl Hct (37.0-47.0) % MCV (80.0-100.0) fL MCH (25.0-34.0) pg MCHC (32.0-36.0) g/dL RDW Std Deviation (36.4-46.3) fL RDW Coeff of Tino (11.5-14.5) % Plt Count (130-400) K/uL MPV (9.4-12.4) fL Immature Gran % (Auto) % Neut % (Auto) % Lymph % (Auto) % [place] % (Auto) % Eos % (Auto) % Baso % (Auto) % Neut # (Auto) (1.40-6.50) K/uL Lymph # (Auto) (1.2-3.4) K/uL [place] # (Auto) (0.11-0.59) K/uL Eos # (Auto) (0-0.50) K/uL Baso # (Auto) (0-0.2) K/uL Immature Gran # (Auto) (0.01-0.20) K/uL VBG pH (7.36-7.41) VBG pCO2 (38-50) mmHg VBG pO2 mmHg VBG HCO3 mmol/L VBG O2 Saturation % VBG Base Excess mEq/L Sodium (136-145) mmol/L Potassium (3.5-5.1) mmol/L Chloride (98-107) mmol/L Carbon Dioxide (21-32) mmol/L Anion Gap (3-11) BUN (6-23) mg/dl Creatinine (0.6-1.2) mg/dl Est Cr Clr Drug Dosing ml/min Est GFR ( Amer) ml/min Est GFR (Non-Af Amer) ml/min BUN/Creatinine Ratio (10-20) Glucose (70-99(Fasting)) mg/dl POC Glucose (70-99) mg/dl Estimat Average Glucose mg/dl Hemoglobin A1c (4.5-5.6) % Osmolality 311 H (280-300) mOsm/kg Calcium (8.5-10.1) mg/dl Phosphorus 3.7 (2.5-4.9) mg/dl Magnesium (1.7-2.4) mg/dl Iron (35-150) mcg/dl TIBC (250-450) mcg/dl Unsaturated IBC (155-355) mcg/dl Transferrin % Sat (15-50) % Ferritin (8-388) ng/ml Total Bilirubin (0.2-1.0) mg/dl AST (13-39) U/L ALT (7-52) U/L Alkaline Phosphatase (34-104) U/L Troponin I High Sens (0-14) pg/ml Total Protein (6.0-8.3) gm/dl Albumin (3.4-5.0) gm/dl Globulin (2.5-4.0) gm/dl Albumin/Globulin Ratio (0.9-2) TSH (0.300-4.500) uIu/ml Urine Color Yellow Urine Appearance Clear (Clear) Urine pH 5.0 (4.5-7.5) Ur Specific [place] 1.031 H (1.000-1.030) Urine Protein Negative (Negative) Urine Glucose (UA) 3+ H (Negative) Urine Ketones Negative (Negative) Urine Blood Negative (Negative) Urine Nitrite Negative (Negative) Urine Bilirubin Negative (Negative) Urine Urobilinogen Negative (Negative) Ur Leukocyte Esterase Negative (Negative) SARS-CoV-2 (PCR) (Negative) Influenza Type A (PCR) (Neg) Influenza Type B (PCR) (Neg) RSV (RT-PCR) (Neg) 10/06/22 10/06/22 10/06/22 Range/Units 21:00 20:10 20:10 WBC (4.8-10.8) K/ul RBC (4.20-5.40) M/uL Hgb (12.0-16.0) g/dl Hct (37.0-47.0) % MCV (80.0-100.0) fL MCH (25.0-34.0) pg MCHC (32.0-36.0) g/dL RDW Std Deviation (36.4-46.3) fL RDW Coeff of Tino (11.5-14.5) % Plt Count (130-400) K/uL MPV (9.4-12.4) fL Immature Gran % (Auto) % Neut % (Auto) % Lymph % (Auto) % [place] % (Auto) % Eos % (Auto) % Baso % (Auto) % Neut # (Auto) (1.40-6.50) K/uL Lymph # (Auto) (1.2-3.4) K/uL [place] # (Auto) (0.11-0.59) K/uL Eos # (Auto) (0-0.50) K/uL Baso # (Auto) (0-0.2) K/uL Immature Gran # (Auto) (0.01-0.20) K/uL VBG pH (7.36-7.41) VBG pCO2 (38-50) mmHg VBG pO2 mmHg VBG HCO3 mmol/L VBG O2 Saturation % VBG Base Excess mEq/L Sodium 126 L (136-145) mmol/L Potassium 4.2 (3.5-5.1) mmol/L Chloride 94 L (98-107) mmol/L Carbon Dioxide 24 (21-32) mmol/L Anion Gap 8 (3-11) BUN 20 (6-23) mg/dl Creatinine 1.28 H (0.6-1.2) mg/dl Est Cr Clr Drug Dosing 36.0 ml/min Est GFR ( Amer) 47.4 ml/min Est GFR (Non-Af Amer) 40.9 ml/min BUN/Creatinine Ratio 15.6 (10-20) Glucose 820 H* (70-99(Fasting)) mg/dl POC Glucose (70-99) mg/dl Estimat Average Glucose 303 mg/dl Hemoglobin A1c 12.2 H (4.5-5.6) % Osmolality (280-300) mOsm/kg Calcium 9.1 (8.5-10.1) mg/dl Phosphorus (2.5-4.9) mg/dl Magnesium 1.5 L (1.7-2.4) mg/dl Iron (35-150) mcg/dl TIBC (250-450) mcg/dl Unsaturated IBC (155-355) mcg/dl Transferrin % Sat (15-50) % Ferritin (8-388) ng/ml Total Bilirubin 0.7 (0.2-1.0) mg/dl AST 12 L (13-39) U/L ALT 16 (7-52) U/L Alkaline Phosphatase 68 (34-104) U/L Troponin I High Sens 5.0 (0-14) pg/ml Total Protein 6.3 (6.0-8.3) gm/dl Albumin 3.7 (3.4-5.0) gm/dl Globulin 2.6 (2.5-4.0) gm/dl Albumin/Globulin Ratio 1.4 (0.9-2) TSH 1.397 (0.300-4.500) uIu/ml Urine Color Urine Appearance (Clear) Urine pH (4.5-7.5) Ur Specific [place] (1.000-1.030) Urine Protein (Negative) Urine Glucose (UA) (Negative) Urine Ketones (Negative) Urine Blood (Negative) Urine Nitrite (Negative) Urine Bilirubin (Negative) Urine Urobilinogen (Negative) Ur Leukocyte Esterase (Negative) SARS-CoV-2 (PCR) (Negative) Influenza Type A (PCR) (Neg) Influenza Type B (PCR) (Neg) RSV (RT-PCR) (Neg) 10/06/22 Range/Units 20:10 WBC 6.70 (4.8-10.8) K/ul RBC 4.13 L (4.20-5.40) M/uL Hgb 11.8 L (12.0-16.0) g/dl Hct 34.5 L (37.0-47.0) % MCV 83.5 (80.0-100.0) fL MCH 28.6 (25.0-34.0) pg MCHC 34.2 (32.0-36.0) g/dL RDW Std Deviation 41.0 (36.4-46.3) fL RDW Coeff of Tino 13.4 (11.5-14.5) % Plt Count 214 (130-400) K/uL MPV 10.5 (9.4-12.4) fL Immature Gran % (Auto) 0.4 % Neut % (Auto) 63.5 % Lymph % (Auto) 27.8 % [place] % (Auto) 6.1 % Eos % (Auto) 1.3 % Baso % (Auto) 0.9 % Neut # (Auto) 4.25 (1.40-6.50) K/uL Lymph # (Auto) 1.86 (1.2-3.4) K/uL [place] # (Auto) 0.41 (0.11-0.59) K/uL Eos # (Auto) 0.09 (0-0.50) K/uL Baso # (Auto) 0.06 (0-0.2) K/uL Immature Gran # (Auto) 0.03 (0.01-0.20) K/uL VBG pH (7.36-7.41) VBG pCO2 (38-50) mmHg VBG pO2 mmHg VBG HCO3 mmol/L VBG O2 Saturation % VBG Base Excess mEq/L Sodium (136-145) mmol/L Potassium (3.5-5.1) mmol/L Chloride (98-107) mmol/L Carbon Dioxide (21-32) mmol/L Anion Gap (3-11) BUN (6-23) mg/dl Creatinine (0.6-1.2) mg/dl Est Cr Clr Drug Dosing ml/min Est GFR ( Amer) ml/min Est GFR (Non-Af Amer) ml/min BUN/Creatinine Ratio (10-20) Glucose (70-99(Fasting)) mg/dl POC Glucose (70-99) mg/dl Estimat Average Glucose mg/dl Hemoglobin A1c (4.5-5.6) % Osmolality (280-300) mOsm/kg Calcium (8.5-10.1) mg/dl Phosphorus (2.5-4.9) mg/dl Magnesium (1.7-2.4) mg/dl Iron (35-150) mcg/dl TIBC (250-450) mcg/dl Unsaturated IBC (155-355) mcg/dl Transferrin % Sat (15-50) % Ferritin (8-388) ng/ml Total Bilirubin (0.2-1.0) mg/dl AST (13-39) U/L ALT (7-52) U/L Alkaline Phosphatase (34-104) U/L Troponin I High Sens (0-14) pg/ml Total Protein (6.0-8.3) gm/dl Albumin (3.4-5.0) gm/dl Globulin (2.5-4.0) gm/dl Albumin/Globulin Ratio (0.9-2) TSH (0.300-4.500) uIu/ml Urine Color Urine Appearance (Clear) Urine pH (4.5-7.5) Ur Specific [place] (1.000-1.030) Urine Protein (Negative) Urine Glucose (UA) (Negative) Urine Ketones (Negative) Urine Blood (Negative) Urine Nitrite (Negative) Urine Bilirubin (Negative) Urine Urobilinogen (Negative) Ur Leukocyte Esterase (Negative) SARS-CoV-2 (PCR) (Negative) Influenza Type A (PCR) (Neg) Influenza Type B (PCR) (Neg) RSV (RT-PCR) (Neg) Diagnostic Findings Carotid Doppler Study 10/07/22 08:06 ULTRASOUND OF THE CAROTID ARTERIES CLINICAL HISTORY: dizziness COMPARISON: None available at the time of this dictation. TECHNIQUE: Real-time, grayscale, and color Doppler sonography of the carotid arteries is performed. Images are reviewed in the transverse and longitudinal planes. FINDINGS: The carotid arteries are patent bilaterally and demonstrate antegrade flow. There is mild atherosclerotic plaque on the right and mild atherosclerotic plaque on the left. Normal doppler arterial waveforms are seen throughout. Velocity measurements are listed below. Common carotid peak systolic velocity (cm/sec): RIGHT: 62 LEFT: 67 ICA peak systolic velocity (cm/sec): RIGHT: 60 LEFT: 54 ICA/CC peak systolic ratio: RIGHT: 0.97 LEFT: 0.81 Antegrade flow was shown in the vertebral arteries. The external carotid arteries are patent. Incidental note is made of a right cervical lymph node measuring 1.9 x 0.8 x 1.1 cm. IMPRESSION: 1. There is no sonographic evidence of hemodynamically significant stenosis in the right or left carotid arterial system. 2. Antegrade flow is shown in the vertebral arteries. Society of Radiologists in Ultrasound consensus guidelines: Normal: ICA PSV is <125 cm/sec and no plaque or intimal thickening is visible sonographically additional criteria include ICA/CCA PSV ratio <2.0 and ICA EDV <40 cm/sec <50% ICA stenosis: ICA PSV is <125 cm/sec and plaque or intimal thickening is visible sonogra phically additional criteria include ICA/CCA PSV ratio <2.0 and ICA EDV <40 cm/sec 50-69% ICA stenosis: ICA PSV is 125-230 cm/sec and plaque is visible sonographically additional criteria include ICA/CCA PSV ratio of 2.0-4.0 and ICA EDV of 40-100 cm/sec ?70% ICA stenosis but less than near occlusion: ICA PSV is >230 cm/sec and visible plaque and luminal narrowing are seen at green[place]-scale and color Doppler ultrasound (the higher the Doppler parameters lie above the threshold of 230 cm/sec, the greater the likelihood of severe disease) additional criteria include ICA/CCA PSV ratio >4 and ICA EDV >100 cm/sec ACT 112: Negative or not required by law. Electronically signed by: Josh Lange M.D. 10/07/2022 12:59 PM PG Care Time/CCT Total # of Minutes Spent Total Time Spent with Patient: Total time spent is greater than 50% in coordination of care (as documented) at patient's floor/unit and/or counseling patient: Coding Level of Care Code 61315 SUB INP/OBS CARE 3/50MIN Diagnoses Hypotension I95.9 Hyperglycemia R73.9 CAD (coronary artery disease) I25.10 Associated angina: angina presence unspecified Coronary Disease-Associated Artery/Lesion type: [place] artery [place] vs. transplanted heart: [place] heart Anemia D64.9 CKD (chronic kidney disease), stage III N18.30 GERD (gastroesophageal reflux disease) K21.9 Esophagitis presence: without esophagitis HTN (hypertension) I10 Dyslipidemia E78.5 (3) CAD (coronary artery disease) Associated angina: angina presence unspecified Coronary Disease-Associated Artery/Lesion type: [place] artery [place] vs. transplanted heart: [place] heart Qualified Code(s): I25.10 - Atherosclerotic heart disease of [place] coronary artery without angina pectoris (6) GERD (gastroesophageal reflux disease) Esophagitis presence: without esophagitis Qualified Code(s): K21.9 - Gastro- esophageal reflux disease without esophagitis
[2022-10-07 08:39] LABS: Estimated Average Glucose 303 mg/dl; Hemoglobin A1C 12.2 % (4.5-5.6)
[2022-10-07] MEDS ORDERED: NON-FORMULARY MEDICATION (Fluticasone-Umeclidin-Vilanter [Trelegy Ellipta] 100-62.5-25 mcg INH SCH (09:00)
[2022-10-07] MEDS ORDERED: LANTUS PER UNIT CHARGE SQ ONE (09:00)
[2022-10-07] MEDS: MAGNESIUM SULFATE / D5W 1 GM/100 ML BAG IV SCH ×3 (09:52→13:29)
--- NOTE | 2022-10-07 10:13 | Electrocardiogram Report ---
Test Reason : Blood Pressure : / mmHG Vent. Rate : 061 BPM Atrial Rate : 061 BPM P-R Int : 164 ms QRS Dur : 074 ms QT Int : 452 ms P-R-T Axes : 063 015 056 degrees QTc Int : 455 ms Normal sinus rhythm Nonspecific T wave abnormality Abnormal ECG When compared with ECG of 01-SEP-2022 21:53, Nonspecific T wave abnormality now evident in Anterior leads Confirmed by Matty Pinto ([id number]) on 10/07/2022 10:13:15 AM Referred By: Lalito Pimentel Confirmed By:Logan Pinto
--- NOTE | 2022-10-07 12:07 | Pharmacy Report ---
Pharmacy Glycemic Short Note 2 - Date of Service October 07, 2022 - Glycemic Short BSG Results (Last 24 hours): 10/06/22 10/06/22 10/07/22 20:10 23:14 00:18 Glucose 820 H* POC Glucose 571 H* 442 H* 10/07/22 10/07/22 10/07/22 01:14 02:20 02:38 Glucose POC Glucose 301 H* 230 H 208 H 10/07/22 10/07/22 10/07/22 02:54 03:11 03:22 Glucose POC Glucose 190 H 176 H 190 H 10/07/22 10/07/22 10/07/22 03:45 04:12 04:34 Glucose POC Glucose 209 H 200 H 211 H 10/07/22 10/07/22 10/07/22 05:53 06:13 06:34 Glucose 200 H POC Glucose 198 H 182 H 10/07/22 10/07/22 10/07/22 07:20 07:37 08:44 Glucose POC Glucose 156 H 156 H 145 H 10/07/22 10/07/22 09:41 10:47 Glucose POC Glucose 132 H 135 H OUTPATIENT ANTIDIABETIC REGIMEN: * Novolog 6 units w/BF, 8 unts w/L, 10 units w/D and SSI * Degludec 48 units PM and 15 units AM * Metformin 1000 mg BID A1C 12.2 (10/06/22) ASSESSMENT: * CS is a 77-year-old female with a history of T2DM who was admitted for hypotension and hyperglycemia. * BSG yesterday was between 250 and 820 mg/dL without anion gap or other symptoms of DKA/HHS. Was started on Insulin drip for hyperglycemia at 7.2 ml/hr. BSG progressively decreased to 132 mg/dL on drip today. * Based on patient response to glycemic management from past admissions, administered 15 units SQ basal to initiate transition from IV insulin. Insulin drip was discontinued about an hour later and NovoLog SSI started. Included overnight checks. PLAN FOR INPATIENT GLYCEMIC CONTROL: * Hold outpatient diabetes medications * Basal insulin * Lantus 15 units SQ x1 at AM * Bolus insulin * NovoLog per scale ACHS or Q6hrs while NPO * Goal Range: Low 110 mg/dL - High 140 mg/dL * Correction Factor: 25 mg/dL/unit * Nutritional / Prandial insulin per carb ratio of 1 unit per 8 grams CHO consumed
[2022-10-07] MEDS: INSULIN ASPART PER UNIT SC SCH ×3 (12:30→21:12)
--- NOTE | 2022-10-07 13:00 | Ultrasound Report ---
ULTRASOUND OF THE CAROTID ARTERIES CLINICAL HISTORY: dizziness COMPARISON: None available at the time of this dictation. TECHNIQUE: Real-time, grayscale, and color Doppler sonography of the carotid arteries is performed. I mages are reviewed in the transverse and longitudinal planes. FINDINGS: The carotid arteries are patent bilaterally and demonstrate antegrade flow. There is mild atheroscler otic plaque on the right and mild atherosclerotic plaque on the left. Normal doppler arterial wavefor ms are seen throughout. Velocity measurements are listed below. Common carotid peak systolic velocity (cm/sec): RIGHT: 62 LEFT: 67 ICA peak systolic velocity (cm/sec): RIGHT: 60 LEFT: 54 ICA/CC peak systolic ratio: RIGHT: 0.97 LEFT: 0.81 Antegrade flow was shown in the vertebral arteries. The external carotid arteries are patent. Incidental note is made of a right cervical lymph node measuring 1.9 x 0.8 x 1.1 cm. IMPRESSION: 1. There is no sonographic evidence of hemodynamically significant stenosis in the right or left car otid arterial system. 2. Antegrade flow is shown in the vertebral arteries. Society of Radiologists in Ultrasound consensus guidelines: Normal: ICA PSV is <125 cm/sec and no plaque or intimal thickening is visible sonographically additional criteria include ICA/CCA PSV ratio <2.0 and ICA EDV <40 cm/sec <50% ICA stenosis: ICA PSV is <125 cm/sec and plaque or intimal thickening is visible sonographically additional criteria include ICA/CCA PSV ratio <2.0 and ICA EDV <40 cm/sec 50-69% ICA stenosis: ICA PSV is 125-230 cm/sec and plaque is visible sonographically additional criteria include ICA/CCA PSV ratio of 2.0-4.0 and ICA EDV of 40-100 cm/sec ?70% ICA stenosis but less than near occlusion: ICA PSV is >230 cm/sec and visible plaque and luminal narrowing are seen at green[place]-scale and color Dopp ler ultrasound (the higher the Doppler parameters lie above the threshold of 230 cm/sec, the greater the likelihood of severe disease) additional criteria include ICA/CCA PSV ratio >4 and ICA EDV >100 cm/sec ACT 112: Negative or not required by law. Electronically signed by: Josh Lange M.D. 10/07/2022 12:59 PM
[2022-10-07 16:35] LABS: BUN Creatinine Ratio 15.2 (10-20); Calcium 8.7 mg/dl (8.5-10.1); Creatinine Clr Calc Pharmacy 50.3 ml/min; Est GFR (African American) 70.6 ml/min; Est GFR (Non-African American) 60.9 ml/min; Potassium 3.7 mmol/L (3.5-5.1)
[2022-10-07] MEDS ORDERED: GABAPENTIN 100 MG CAP PO SCH (21:00)
[2022-10-08] MEDS: INSULIN ASPART PER UNIT SC SCH ×4 (00:10→12:08)
[2022-10-08 07:29] LABS: Basophils # (auto) 0.06 K/uL (0-0.2); Basophils % (auto) 0.8 %; Eosinophils # (auto) 0.21 K/uL (0-0.50); Eosinophils % (auto) 2.9 %; Hematocrit (blood only) 36.5 % (37.0-47.0); Hemoglobin 12.7 g/dl (12.0-16.0); Immature Granulocytes # (auto) 0.03 K/uL (0.01-0.20); Immature Granulocytes % (auto) 0.4 %; Lymphocytes # (auto) 2.43 K/uL (1.2-3.4); Lymphocytes % (auto) 34.1 %; Mean Corpuscular Hemoglobin 28.3 pg (25.0-34.0); Mean Corpuscular Hgb Conc 34.8 g/dL (32.0-36.0); Mean Corpuscular Volume 81.5 fL (80.0-100.0); Mean Platelet Volume 10.3 fL (9.4-12.4); Monocytes # (auto) 0.41 K/uL (0.11-0.59); Monocytes % (auto) 5.8 %; Neutrophils # (auto) 3.99 K/uL (1.40-6.50); Platelet Count 216 K/uL (130-400); RDW Coefficient of Variation 13.1 % (11.5-14.5); RDW Standard Deviation 38.5 fL (36.4-46.3); Red Blood Count 4.48 M/uL (4.20-5.40); White Blood Count 7.13 K/ul (4.8-10.8)
--- NOTE | 2022-10-08 07:37 | Hospitalist Progress Note ---
Date of Service October 08, 2022 Assessment & Plan (1) Hypotension: Plan: 77-year-old female presenting from home with report of hypotension. Patient with low blood pressure, 90s over 50s in the ER. She has a history of hypertension for which she takes isosorbide, lisinopril, metoprolol. Blood pressure presently 105/60. Patient appears clinically dry on physical exammost likely secondary to increased urinary frequency in setting of hyperglycemia. Glu on chemistry 820, no anion gap IVF for dehydration/poor PO intake x2 L, decreased rates as diet advanced and taking PO Insulin gtt, pharmacy consulted -- BSGs improved -- see below Holding antihypertensives (on isosorbide 60mg, lisinopril 10mg, metoprolol 100mg [employer] APPLICATIONS ANALYST) -- BP borderline 109/67 this morning, currently 142/78 -- can resume meds in AM as able Monitor on telemetry (2) Hyperglycemia: Plan: Patient found to be hyperglycemic with initial blood sugar of 820. States compliance w/ meds at home and Renan monitor (not on currently) however last endocrinology note states rampantly uncontrolled BSGs w/ readings consistently >300 for weeks She tells me she takes her insulin 4x/daily at home but unsure of dosing as on sliding scale Likely missing doses/skipping based on repeat A1c 12.2 No anion gap on admit, 3+ glucose on UA without ketones. Urine osm 311 elevated LR IVF replacement, x2 bags No longer on insulin gtt Pharmacy on consult for glycemic management BSGs improved Reached out to DM educator, seen last admission for further education. Diet advanced, DM/AHA K 3.1/mag 1.5-- replacement ordered. Repeat labs/replacement as needed Would ask eastern philosophy professor to coordinate for close endocrinology f/u at discharge +/- pillowcase cleaner at patients PCP office for additional assistance. (3) CAD (coronary artery disease): Plan: Patient denies chest pain. Troponin is within normal limits. No acute ischemic changes on EKG Continue aspirin 81 mg p.o. daily Continue Zetia 10 mg p.o. every morning Continue Crestor 40 mg p.o. every morning Baseline anemia -- prior borderline B12/folate at 220/5.87 and will repeat w/ AM labs and replacement as needed (4) Anemia: Plan: hgb around baseline, no bleeding reported iron panel w/o significant abn, of note prior B12/folate borderline and we repeated these to see if any replacement required B12 borderline LOW at 338 -- IM x 1, then continue 1000mcg daily - continue at d/c Folate LOW 4.98 -- PO replacement ordered - continue at d/c Hgb 12.7 and monitor (5) CKD (chronic kidney disease), stage III: Plan: Patient with CKD stage III at baseline. Presents with acute kidney injury/elevation in Cr to 1.28 from normal baseline, volume contraction from dehydration suspected (also could have had some ATN from low BPs as well) Holding lisinopril/antiHTN agents IVF ordered as above x2 L, Cr normalize on repeat Avoid nephrotoxic medications Vit D checked -- LOW at 12.7 -- ergocalciferol 50,000 weekly x 1 month and f/u pcp for continued supplementation Monitor BMP (6) GERD (gastroesophageal reflux disease): Plan: Chronic. Stable. Hx barretts Continue Protonix 40 mg p.o. twice daily Continue Pepcid 20 mg p.o. twice daily inquire about prior screening/follow up with GI for surveillance (7) HTN (hypertension): Plan: Admitted w/ hypotension AntiHTN agents on hold, BPs improved -- likely able to resume meds in AM (8) Dyslipidemia: Plan: Chronic. Continue Crestor and Zetia prior endo notes w/ uncontrolled lipids, improved w/ most recent check TRG 317--> 118, Chol 268--> 130, LDL 167-->74 (9) Vitamin D deficiency: (10) Vitamin B12 deficiency: (11) Folic acid deficiency: Plan continued inpatient stay repeat labs this afternoon/electrolyte replacement as indicated PT/OT consulted Admission and Anticipated Discharge Date Admission Date: October 06, 2022 Subjective Evaluated this morning, about to work with therapy. She states she is feeling better and hopeful to go home today. Not yet seen by DM educator, also discussed will attempt to streamline her regimen at d/c and working on getting close endocrinology follow up. Questions/concerns addressed at this time. Results & Data Results & Data ([facility]) Vital Signs (Past 12 Hours) Vital Signs Temp Pulse Resp BP Pulse Ox O2 Del Method O2 Del Method 10/08/22 06:55 36.8 C 74 18 118/72 96 Room Air 10/08/22 03:43 36.8 C 77 16 93 Room Air 10/08/22 01:57 Room Air 10/07/22 22:59 36.8 C 72 18 112/72 95 Room Air Laboratory Results 10/08/22 10/08/22 10/08/22 Range/Units 07:10 06:23 06:23 WBC 7.13 (4.8-10.8) K/ul RBC 4.48 (4.20-5.40) M/uL Hgb 12.7 (12.0-16.0) g/dl Hct 36.5 L (37.0-47.0) % MCV 81.5 (80.0-100.0) fL MCH 28.3 (25.0-34.0) pg MCHC 34.8 (32.0-36.0) g/dL RDW Std Deviation 38.5 (36.4-46.3) fL RDW Coeff of Tino 13.1 (11.5-14.5) % Plt Count 216 (130-400) K/uL MPV 10.3 (9.4-12.4) fL Immature Gran % (Auto) 0.4 % Neut % (Auto) 56.0 % Lymph % (Auto) 34.1 % [place] % (Auto) 5.8 % Eos % (Auto) 2.9 % Baso % (Auto) 0.8 % Neut # (Auto) 3.99 (1.40-6.50) K/uL Lymph # (Auto) 2.43 (1.2-3.4) K/uL [place] # (Auto) 0.41 (0.11-0.59) K/uL Eos # (Auto) 0.21 (0-0.50) K/uL Baso # (Auto) 0.06 (0-0.2) K/uL Immature Gran # (Auto) 0.03 (0.01-0.20) K/uL Sodium Pending (136-145) mmol/L Potassium Pending (3.5-5.1) mmol/L Chloride Pending (98-107) mmol/L Carbon Dioxide Pending (21-32) mmol/L Anion Gap Pending (3-11) BUN Pending (6-23) mg/dl Creatinine Pending (0.6-1.2) mg/dl Est Cr Clr Drug Dosing Pending ml/min Est GFR ( Amer) Pending ml/min Est GFR (Non-Af Amer) Pending ml/min BUN/Creatinine Ratio Pending (10-20) Glucose Pending (70-99(Fasting)) mg/dl POC Glucose 149 H (70-99) mg/dl Estimat Average Glucose mg/dl Hemoglobin A1c (4.5-5.6) % Calcium Pending (8.5-10.1) mg/dl Magnesium Pending (1.7-2.4) mg/dl Iron (35-150) mcg/dl TIBC (250-450) mcg/dl Unsaturated IBC (155-355) mcg/dl Transferrin % Sat (15-50) % Ferritin (8-388) ng/ml Total Bilirubin Pending AST Pending ALT Pending Alkaline Phosphatase Pending Total Protein Pending Albumin Pending Globulin Pending Albumin/Globulin Ratio Pending Vitamin B12 25-OH Vitamin D Total Folate 10/08/22 10/08/22 10/08/22 Range/Units 06:23 03:22 00:09 WBC (4.8-10.8) K/ul RBC (4.20-5.40) M/uL Hgb (12.0-16.0) g/dl Hct (37.0-47.0) % MCV (80.0-100.0) fL MCH (25.0-34.0) pg MCHC (32.0-36.0) g/dL RDW Std Deviation (36.4-46.3) fL RDW Coeff of Tino (11.5-14.5) % Plt Count (130-400) K/uL MPV (9.4-12.4) fL Immature Gran % (Auto) % Neut % (Auto) % Lymph % (Auto) % [place] % (Auto) % Eos % (Auto) % Baso % (Auto) % Neut # (Auto) (1.40-6.50) K/uL Lymph # (Auto) (1.2-3.4) K/uL [place] # (Auto) (0.11-0.59) K/uL Eos # (Auto) (0-0.50) K/uL Baso # (Auto) (0-0.2) K/uL Immature Gran # (Auto) (0.01-0.20) K/uL Sodium (136-145) mmol/L Potassium (3.5-5.1) mmol/L Chloride (98-107) mmol/L Carbon Dioxide (21-32) mmol/L Anion Gap (3-11) BUN (6-23) mg/dl Creatinine (0.6-1.2) mg/dl Est Cr Clr Drug Dosing ml/min Est GFR ( Amer) ml/min Est GFR (Non-Af Amer) ml/min BUN/Creatinine Ratio (10-20) Glucose (70-99(Fasting)) mg/dl POC Glucose 177 H 129 H (70-99) mg/dl Estimat Average Glucose mg/dl Hemoglobin A1c (4.5-5.6) % Calcium (8.5-10.1) mg/dl Magnesium (1.7-2.4) mg/dl Iron (35-150) mcg/dl TIBC (250-450) mcg/dl Unsaturated IBC (155-355) mcg/dl Transferrin % Sat (15-50) % Ferritin (8-388) ng/ml Total Bilirubin AST ALT Alkaline Phosphatase Total Protein Albumin Globulin Albumin/Globulin Ratio Vitamin B12 Pending 25-OH Vitamin D Total Pending Folate Pending 10/07/22 10/07/22 10/07/22 Range/Units 20:09 16:11 15:34 WBC (4.8-10.8) K/ul RBC (4.20-5.40) M/uL Hgb (12.0-16.0) g/dl Hct (37.0-47.0) % MCV (80.0-100.0) fL MCH (25.0-34.0) pg MCHC (32.0-36.0) g/dL RDW Std Deviation (36.4-46.3) fL RDW Coeff of Tino (11.5-14.5) % Plt Count (130-400) K/uL MPV (9.4-12.4) fL Immature Gran % (Auto) % Neut % (Auto) % Lymph % (Auto) % [place] % (Auto) % Eos % (Auto) % Baso % (Auto) % Neut # (Auto) (1.40-6.50) K/uL Lymph # (Auto) (1.2-3.4) K/uL [place] # (Auto) (0.11-0.59) K/uL Eos # (Auto) (0-0.50) K/uL Baso # (Auto) (0-0.2) K/uL Immature Gran # (Auto) (0.01-0.20) K/uL Sodium 134 L (136-145) mmol/L Potassium 3.7 (3.5-5.1) mmol/L Chloride 103 (98-107) mmol/L Carbon Dioxide 29 (21-32) mmol/L Anion Gap 2 L (3-11) BUN 14 (6-23) mg/dl Creatinine 0.92 (0.6-1.2) mg/dl Est Cr Clr Drug Dosing 50.3 ml/min Est GFR ( Amer) 70.6 ml/min Est GFR (Non-Af Amer) 60.9 ml/min BUN/Creatinine Ratio 15.2 (10-20) Glucose 214 H (70-99(Fasting)) mg/dl POC Glucose 152 H 207 H (70-99) mg/dl Estimat Average Glucose mg/dl Hemoglobin A1c (4.5-5.6) % Calcium 8.7 (8.5-10.1) mg/dl Magnesium (1.7-2.4) mg/dl Iron (35-150) mcg/dl TIBC (250-450) mcg/dl Unsaturated IBC (155-355) mcg/dl Transferrin % Sat (15-50) % Ferritin (8-388) ng/ml Total Bilirubin AST ALT Alkaline Phosphatase Total Protein Albumin Globulin Albumin/Globulin Ratio Vitamin B12 25-OH Vitamin D Total Folate 10/07/22 10/07/22 10/07/22 Range/Units 15:34 11:42 10:47 WBC (4.8-10.8) K/ul RBC (4.20-5.40) M/uL Hgb (12.0-16.0) g/dl Hct (37.0-47.0) % MCV (80.0-100.0) fL MCH (25.0-34.0) pg MCHC (32.0-36.0) g/dL RDW Std Deviation (36.4-46.3) fL RDW Coeff of Tino (11.5-14.5) % Plt Count (130-400) K/uL MPV (9.4-12.4) fL Immature Gran % (Auto) % Neut % (Auto) % Lymph % (Auto) % [place] % (Auto) % Eos % (Auto) % Baso % (Auto) % Neut # (Auto) (1.40-6.50) K/uL Lymph # (Auto) (1.2-3.4) K/uL [place] # (Auto) (0.11-0.59) K/uL Eos # (Auto) (0-0.50) K/uL Baso # (Auto) (0-0.2) K/uL Immature Gran # (Auto) (0.01-0.20) K/uL Sodium (136-145) mmol/L Potassium (3.5-5.1) mmol/L Chloride (98-107) mmol/L Carbon Dioxide (21-32) mmol/L Anion Gap (3-11) BUN (6-23) mg/dl Creatinine (0.6-1.2) mg/dl Est Cr Clr Drug Dosing ml/min Est GFR ( Amer) ml/min Est GFR (Non-Af Amer) ml/min BUN/Creatinine Ratio (10-20) Glucose (70-99(Fasting)) mg/dl POC Glucose 154 H 135 H (70-99) mg/dl Estimat Average Glucose mg/dl Hemoglobin A1c (4.5-5.6) % Calcium (8.5-10.1) mg/dl Magnesium 2.2 (1.7-2.4) mg/dl Iron (35-150) mcg/dl TIBC (250-450) mcg/dl Unsaturated IBC (155-355) mcg/dl Transferrin % Sat (15-50) % Ferritin (8-388) ng/ml Total Bilirubin AST ALT Alkaline Phosphatase Total Protein Albumin Globulin Albumin/Globulin Ratio Vitamin B12 25-OH Vitamin D Total Folate 10/07/22 10/07/22 10/07/22 Range/Units 09:41 08:44 07:37 WBC (4.8-10.8) K/ul RBC (4.20-5.40) M/uL Hgb (12.0-16.0) g/dl Hct (37.0-47.0) % MCV (80.0-100.0) fL MCH (25.0-34.0) pg MCHC (32.0-36.0) g/dL RDW Std Deviation (36.4-46.3) fL RDW Coeff of Tino (11.5-14.5) % Plt Count (130-400) K/uL MPV (9.4-12.4) fL Immature Gran % (Auto) % Neut % (Auto) % Lymph % (Auto) % [place] % (Auto) % Eos % (Auto) % Baso % (Auto) % Neut # (Auto) (1.40-6.50) K/uL Lymph # (Auto) (1.2-3.4) K/uL [place] # (Auto) (0.11-0.59) K/uL Eos # (Auto) (0-0.50) K/uL Baso # (Auto) (0-0.2) K/uL Immature Gran # (Auto) (0.01-0.20) K/uL Sodium (136-145) mmol/L Potassium (3.5-5.1) mmol/L Chloride (98-107) mmol/L Carbon Dioxide (21-32) mmol/L Anion Gap (3-11) BUN (6-23) mg/dl Creatinine (0.6-1.2) mg/dl Est Cr Clr Drug Dosing ml/min Est GFR ( Amer) ml/min Est GFR (Non-Af Amer) ml/min BUN/Creatinine Ratio (10-20) Glucose (70-99(Fasting)) mg/dl POC Glucose 132 H 145 H 156 H (70-99) mg/dl Estimat Average Glucose mg/dl Hemoglobin A1c (4.5-5.6) % Calcium (8.5-10.1) mg/dl Magnesium (1.7-2.4) mg/dl Iron (35-150) mcg/dl TIBC (250-450) mcg/dl Unsaturated IBC (155-355) mcg/dl Transferrin % Sat (15-50) % Ferritin (8-388) ng/ml Total Bilirubin AST ALT Alkaline Phosphatase Total Protein Albumin Globulin Albumin/Globulin Ratio Vitamin B12 25-OH Vitamin D Total Folate 10/07/22 10/07/22 10/06/22 Range/Units 06:13 06:13 21:00 WBC (4.8-10.8) K/ul RBC (4.20-5.40) M/uL Hgb (12.0-16.0) g/dl Hct (37.0-47.0) % MCV (80.0-100.0) fL MCH (25.0-34.0) pg MCHC (32.0-36.0) g/dL RDW Std Deviation (36.4-46.3) fL RDW Coeff of Tino (11.5-14.5) % Plt Count (130-400) K/uL MPV (9.4-12.4) fL Immature Gran % (Auto) % Neut % (Auto) % Lymph % (Auto) % [place] % (Auto) % Eos % (Auto) % Baso % (Auto) % Neut # (Auto) (1.40-6.50) K/uL Lymph # (Auto) (1.2-3.4) K/uL [place] # (Auto) (0.11-0.59) K/uL Eos # (Auto) (0-0.50) K/uL Baso # (Auto) (0-0.2) K/uL Immature Gran # (Auto) (0.01-0.20) K/uL Sodium (136-145) mmol/L Potassium (3.5-5.1) mmol/L Chloride (98-107) mmol/L Carbon Dioxide (21-32) mmol/L Anion Gap (3-11) BUN (6-23) mg/dl Creatinine (0.6-1.2) mg/dl Est Cr Clr Drug Dosing ml/min Est GFR ( Amer) ml/min Est GFR (Non-Af Amer) ml/min BUN/Creatinine Ratio (10-20) Glucose (70-99(Fasting)) mg/dl POC Glucose (70-99) mg/dl Estimat Average Glucose 303 mg/dl Hemoglobin A1c 12.2 H (4.5-5.6) % Calcium (8.5-10.1) mg/dl Magnesium (1.7-2.4) mg/dl Iron Cancelled 50 (35-150) mcg/dl TIBC Cancelled 223 L (250-450) mcg/dl Unsaturated IBC Cancelled 173 (155-355) mcg/dl Transferrin % Sat Cancelled 22 (15-50) % Ferritin Cancelled 153.0 (8-388) ng/ml Total Bilirubin AST ALT Alkaline Phosphatase Total Protein Albumin Globulin Albumin/Globulin Ratio Vitamin B12 25-OH Vitamin D Total Folate PG Care Time/CCT Total # of Minutes Spent Total Time Spent with Patient: Total time spent is greater than 50% in coordination of care (as documented) at patient's floor/unit and/or counseling patient: Coding Diagnoses Hypotension I95.9 Hyperglycemia R73.9 CAD (coronary artery disease) I25.10 Associated angina: angina presence unspecified Coronary Disease-Associated Artery/Lesion type: [place] artery [place] vs. transplanted heart: [place] heart Anemia D64.9 CKD (chronic kidney disease), stage III N18.30 GERD (gastroesophageal reflux disease) K21.9 Esophagitis presence: without esophagitis HTN (hypertension) I10 Dyslipidemia E78.5 Vitamin D deficiency E55.9 Vitamin B12 deficiency E53.8 Folic acid deficiency E53.8 (3) CAD (coronary artery disease) Associated angina: angina presence unspecified Coronary Disease-Associated Artery/Lesion type: [place] artery [place] vs. transplanted heart: [place] heart Qualified Code(s): I25.10 - Atherosclerotic heart disease of [place] coronary artery without angina pectoris (6) GERD (gastroesophageal reflux disease) Esophagitis presence: without esophagitis Qualified Code(s): K21.9 - Gastro- esophageal reflux disease without esophagitis
[2022-10-08 07:48] LABS: Albumin Globulin Ratio 1.3 (0.9-2); Albumin Level 3.2 gm/dl (3.4-5.0); BUN Creatinine Ratio 14.7 (10-20); Bilirubin,Total 0.3 mg/dl (0.2-1.0); Calcium 8.7 mg/dl (8.5-10.1); Creatinine Clr Calc Pharmacy 49.1 ml/min; Est GFR (African American) 67.9 ml/min; Est GFR (Non-African American) 58.6 ml/min; Globulin 2.4 gm/dl (2.5-4.0); Magnesium 1.8 mg/dl (1.7-2.4); Potassium 4.1 mmol/L (3.5-5.1); Total Protein 5.6 gm/dl (6.0-8.3)
[2022-10-08 08:14] LABS: Vitamin D, 25 Hydrox 12.5 ng/ml (30-100)
[2022-10-08] MEDS ORDERED: CYANOCOBALAMIN 1000 MCG/ML VIAL IM ONE (08:35)
[2022-10-08] MEDS: UMECLIDINIUM/VILANTEROL 62.5/25MCG 7 PUFFS/INHALER INH SCH (08:39)
[2022-10-08] MEDS: FLUTICASONE FUROATE 100MCG 14 PUFFS/INHALER INH SCH (08:39)
[2022-10-08] MEDS: busPIRone 5 MG TAB PO SCH ×2 (08:40→13:14)
[2022-10-08] MEDS: PANTOprazole 40 MG TAB PO SCH (08:40)
[2022-10-08] MEDS: FAMOTIDINE 20 MG TAB PO SCH (08:40)
[2022-10-08] MEDS: EZETIMIBE 10 MG TABLET PO SCH (08:40)
[2022-10-08] MEDS: ROSUVASTATIN CALCIUM 20 MG TAB PO SCH (08:40)
[2022-10-08] MEDS: DULoxetine HCL 30 MG CAP PO SCH (08:41)
[2022-10-08] MEDS: ASPIRIN 81 MG ECTAB PO SCH (08:41)
[2022-10-08] MEDS: MAGNESIUM OXIDE 400 MG TAB PO SCH (08:41)
[2022-10-08] MEDS ORDERED: ERGOCALCIFEROL 50,000 UNITS 1250 MCG CAP PO SCH (09:00)
[2022-10-08] MEDS ORDERED: FOLIC ACID 1 MG TAB PO SCH (09:00)
[2022-10-08] MEDS ORDERED: METOPROLOL SUCC 50MG EXT REL TAB PO SCH (11:00)
[2022-10-08] MEDS ORDERED: ISOSORBIDE MONO EXTENDED REL 60 MG TABCR PO SCH (11:00)
[2022-10-08] MEDS ORDERED: METOPROLOL TARTRATE 100 MG TAB PO SCH (11:00)
[2022-10-08] MEDS ORDERED: INSULIN HUMAN REGULAR PER UNIT 7 UNITS in SYRINGE 6.93 ML IV ONE (12:00)
--- NOTE | 2022-10-08 12:26 | Discharge Summary ---
Date of Service October 08, 2022 Admission HPI Per Admitting Provider Claire Rosas is a 77-year-old female with history of hypertension, diabetes, hyperlipidemia, GERD and CAD presenting from home with chief complaint of hypotension. Patient has a home nurse that comes in several times per week. Today the nurse came in and checked her blood pressure was found to be low. Patient thinks her systolic was approximately 88 mmHg. Patient was instructed to come to the ER for further evaluation. She has no complaints. Denies dizziness, chest pain, palpitations, cough, shortness of breath. No falls. No abdominal pain, nausea, vomiting, diarrhea or constipation. She reports that she is eating well. She does report some polyuria and polydipsia as well as some elevated blood sugars over the last weekover 300. No additional complaints at this time In the ER patient found to be mildly bradycardic at 58 bpm, blood pressure 95/57, no respiratory distress, saturating 94% on room air. ER course: Regular insulin 7.2 units IV Insulin drip initiated Normal saline 500 mL Normosol at 125 mL/h Admission Exam Per Admitting Provider Chief Complaint: Hypotension Primary Care Provider: Lalito Pimentel MD Claire Rosas is a 77-year-old female with history of hypertension, diabetes, hyperlipidemia, GERD and CAD presenting from home with chief complaint of hypotension. Patient has a home nurse that comes in several times per week. Today the nurse came in and checked her blood pressure was found to be low. Patient thinks her systolic was approximately 88 mmHg. Patient was instructed to come to the ER for further evaluation. She has no complaints. Denies dizziness, chest pain, palpitations, cough, shortness of breath. No falls. No abdominal pain, nausea, vomiting, diarrhea or constipation. She reports that she is eating well. She does report some polyuria and polydipsia as well as some elevated blood sugars over the last weekover 300. No additional complaints at this time In the ER patient found to be mildly bradycardic at 58 bpm, blood pressure 95/57, no respiratory distress, saturating 94% on room air. ER course: Regular insulin 7.2 units IV Insulin drip initiated Normal saline 500 mL Normosol at 125 mL/h Principal Diagnosis Hypotension, Hyperglycemia Discharge Exam General: WD female sitting up in bed about to work with therapy, NAD, much improved energy HEENT: head normocephalic, atraumatic, mm slightly dry (reported improved), trachea midline Resp: CTAB, no w/c, on room air CV: RRR, no significant m/r/g, no pitting edema/calf tenderness GI: +BS, soft/NT MSK/Neuro: moves all extremities, no facial droop/slurred speech, strength equal Psych: AOx3, pleasant and cooperative, ID/poor memory at times Discharge Data Allergies Allergy/AdvReac Type Severity Reaction Status Date / Time cephalexin Allergy Intermediate Rash and Verified 10/06/22 20:34 itchiness Cephalosporins Allergy Intermediate Rash and Verified 10/06/22 20:34 itchiness Sulfa (Sulfonamide Allergy Intermediate Hives Verified 10/06/22 20:34 Antibiotics) Consultations 10/06/22 23:02 ED Decision to Admit Stat Ordered Studies Carotid Doppler Study 10/07/22 08:06 ULTRASOUND OF THE CAROTID ARTERIES CLINICAL HISTORY: dizziness COMPARISON: None available at the time of this dictation. TECHNIQUE: Real-time, grayscale, and color Doppler sonography of the carotid arteries is performed. Images are reviewed in the transverse and longitudinal planes. FINDINGS: The carotid arteries are patent bilaterally and demonstrate antegrade flow. There is mild atherosclerotic plaque on the right and mild atherosclerotic plaque on the left. Normal doppler arterial waveforms are seen throughout. Velocity measurements are listed below. Common carotid peak systolic velocity (cm/sec): RIGHT: 62 LEFT: 67 ICA peak systolic velocity (cm/sec): RIGHT: 60 LEFT: 54 ICA/CC peak systolic ratio: RIGHT: 0.97 LEFT: 0.81 Antegrade flow was shown in the vertebral arteries. The external carotid arter ies are patent. Incidental note is made of a right cervical lymph node measuring 1.9 x 0.8 x 1.1 cm. IMPRESSION: 1. There is no sonographic evidence of hemodynamically significant stenosis in the right or left carotid arterial system. 2. Antegrade flow is shown in the vertebral arteries. Society of Radiologists in Ultrasound consensus guidelines: Normal: ICA PSV is <125 cm/sec and no plaque or intimal thickening is visible sonographically additional criteria include ICA/CCA PSV ratio <2.0 and ICA EDV <40 cm/sec <50% ICA stenosis: ICA PSV is <125 cm/sec and plaque or intimal thickening is visible sonographically additional criteria include ICA/CCA PSV ratio <2.0 and ICA EDV <40 cm/sec 50-69% ICA stenosis: ICA PSV is 125-230 cm/sec and plaque is visible sonographically additional criteria include ICA/CCA PSV ratio of 2.0-4.0 and ICA EDV of 40-100 cm/sec ?70% ICA stenosis but less than near occlusion: ICA PSV is >230 cm/sec and visible plaque and luminal narrowing are seen at green[place]-scale and color Doppler ultrasound (the higher the Doppler parameters lie above the threshold of 230 cm/sec, the greater the likelihood of severe disease) additional criteria include ICA/CCA PSV ratio >4 and ICA EDV >100 cm/sec ACT 112: Negative or not required by law. Electronically signed by: Josh Lange M.D. 10/07/2022 12:59 PM Hospital Course (1) Hyperosmolar hyperglycemic state (HHS): admitted w/ Glu 820 on labs and borderline hypotension noted by home nursing copious IVF replacement/pharmacy consult/insulin w/ improvement likely 2nd to dehydration/poor PO intake/increased urinary frequency, 2nd to noncompliance with home insulin use A1c >12 tx as outlined below (2) Hypotension: 77-year-old female presenting from home with report of hypotension. Patient with low blood pressure, 90s over 50s in the ER. She has a history of hypertension for which she takes isosorbide, lisinopril, metoprolol. Blood pressure presently 105/60. Patient appeared clinically dry on physical exammost likely secondary to increased urinary frequency in setting of hyperglycemia. Glu on chemistry 820, no anion gap copious IVF replacement, IV insulin and pharmacy consult for glycemic control as below Held anti-HTN agents, resumed metoprolol and imdur and to hold her lisinopril at d/c and resume if BPs stable on home checks in follow up with PCP (3) Hyperglycemia: Patient found to be hyperglycemic with initial blood sugar of 820. States compliance w/ meds at home and Renan monitor (not on currently) however last endocrinology note states rampantly uncontrolled BSGs w/ readings consistently >300 for weeks She tells me she takes her insulin 4x/daily at home but unsure of dosing as on sliding scale Likely missing doses/skipping based on repeat A1c 12.2 and tresiba pen lasting ~2weeks, would be missing 1/2 doses No anion gap on admit, 3+ glucose on UA without ketones. Urine osm 311 elevated LR IVF replacement, x2 bags No longer on insulin gtt Pharmacy consult for glycemic management BSGs improved DM educator consulted K/mag replacement Addition dose insulin prior to d/c for BSG 300s but overall improved (ate pancakes and bananas for breakfast) Her daughter is going to call her in AM to remind her to take her tresiba and DM educator reaching out afterr d/c for close follow up. To cook pickled meat her Renan and keep a log Outp f/u arranged for Endocrinology, but not until November> Asked if any cancellations for them to call patient to be seen sooner Home insulin regimen continued as previously ordered given suspected non- compliance with current regimen Continued encouragement of compliance with regimen and f/u PCP and Endocrinology outpatient recommended and encourage (4) CAD (coronary artery disease): Patient denies chest pain. Troponin is within normal limits. No acute ischemic changes on EKG Continued aspirin 81 mg p.o. daily, zetia, crestor. Repeat lipid improved from prior (5) Anemia: hgb around baseline, no bleeding reported iron panel w/o significant abn, of note prior B12/folate borderline and we repeated these to see if any replacement required B12 borderline LOW at 338 -- IM x 1, then continue 1000mcg daily - continued at d/c Folate LOW 4.98 -- PO replacement ordered - continued at d/c Hgb 12.7 and stable, no bleeding reported (6) CKD (chronic kidney disease), stage III: Patient with CKD stage III at baseline. Presents with acute kidney injury/elevation in Cr to 1.28 from normal baseline, volume contraction from dehydration suspected (also could have had some ATN from low BPs as well) Held antiHTN agents, resumed as able w/ exception of lisinopril IVF ordered as above x2 L, Cr normalize on repeat Avoided nephrotoxic medications, continue to hold lisinopril at d/c and monitor in follow up Vit D checked -- LOW at 12.7 -- ergocalciferol 50,000 weekly x 1 month and f/u pcp for continued supplementation (7) GERD (gastroesophageal reflux disease): Chronic. Stable. Hx barretts Continued PPI BID, pepcid BID f/u routine surveillance as needed w/ GI rec'd if not done recently (8) HTN (hypertension): Admitted w/ hypotension AntiHTN agents on hold, BPs improved -- resumed metoprolol and imdur and BP 118/71 Held lisinopril for now, but if BPs stable in follow up can likely resume for renal protection given underlying DM, uncontrolled (9) Dyslipidemia: Chronic. Continued Crestor and Zetia prior endo notes w/ uncontrolled lipids, improved w/ most recent check TRG 317--> 118, Chol 268--> 130, LDL 167-->74 (10) Vitamin D deficiency: low, replacement ordered and continued at dischare (11) Vitamin B12 deficiency: checked due to prior borderline levels and replacement ordered and continued at discharge does have some memory issues at baseline, hopefully this will help with such admits really only eats chicken, no red meats, could be from dietary indiscretion or metformin use (12) Folic acid deficiency: low, replacement ordered and continued at discharge PT consulted -- ok for return home prior to discharge Total Time Total Time Spent Total Time Spent (In Minutes): 60 Discharge Plan Discharge Items Patient Disposition: Home - Self-Care Reason For Visit: HYPERGLYCEMIA Discharge Diagnosis: Hyperglycemia, Hypotension Goals: You have been hospitalized for an acute medical problem. During your stay at [facility], we have made an effort to correct the problem that brought you to the hospital while keeping you as comfortable as possible. Medications were used to bring your condition under control and your discharge instructions will include directions for any medications you should take after leaving the hospital. Please make sure you see your Primary Care Provider as part of your follow up plan. Activity: Resume your previous activity Non-emergency contact: Primary Care Provider and Specialist Call non-emergency contact if: you have any medication questions, your symptoms worsen and you have a fever Follow-up/Referrals: Lalito Pimentel MD [Primary Care Provider] - 10/21/22 3:00 pm Edgardo Beckwith PA-C [Physician Babcock Tester] - 12/07/22 3:[address], LDN, CDE [Registered Dietitian] - 10/26/22 2:00 pm Diet: Carb Consistent or DM2 and Heart Healthy Addtl Attending Provider Instructions: You have been hospitalized for low blood pressures. Your blood pressure m edications were held and you were provided IV fluids for dehydration. We have resumed your metoprolol and imdur, but have your lisinopril on HOLD. If your blood pressures remain stable after discharge without any lightheaded/dizziness, you can resume this medicaiton but should check with your family doctor first. 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 This may be due to missing insulin dosing at home or not adequate treatment and you should have close follow up after discharge with endocrinology. The nurses educator was consulted while you were in the hospital and you should keep a log of your blood sugars, and use the Renan monitor as well to keep track. Plan is also to have your daughter check-in every day during her break at work as a reminder to take your Tresiba insulin. 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 At discharge, your regimen for your insulin will be the same but the focus is on COMPLIANCE. If your blood sugars remain elevated despite taking all doses, they may need to be increased but we want to make sure you are taking them all first. We also checked B12, folate, and vitamin D levels. These were low, and can be fr om your diet/lack of red meat. You were given replacement and should continue these at discharge (vitamin D is ONCE A WEEK, on THURSDAYS) and follow up with your primary care provider for further replacement/monitoring. You should follow up with your primary care provider in the next week to monitor your status after discharge. Please return to the ER with any chest pain, shortness of breath, inability to keep up with oral hydration, or for any other symptoms concerning for you. Take care! Pending Studies at Discharge: No Stand-Alone Forms: My [employer], Smoking Cessation Medications and DC Order Prescriptions: New magnesium oxide 400 mg (241.3 mg magnesium) Tablet 400 mg PO QAM Qty: 30 0RF cyanocobalamin (vitamin B-12) 500 mcg Tablet 1,000 mcg PO QAM Qty: 30 0RF ergocalciferol (vitamin D2) 1,250 mcg (50,000 unit) Capsule 50,000 unit PO Q7D@0900 Qty: 4 0RF folic acid 1 mg Tablet 1 mg PO QAM Qty: 30 0RF Continued (DME) OneTouch Verio test strips Strip See Dose Instructions .ROUTE .MEDSUPPLY Qty: 200 3RF Dose Instruction: As directed Rx Instructions: Test 4 TIMES Daily. insulin aspart U-100 [Novolog FlexPen U-100 Insulin] 100 unit/mL (3 mL) insulin pen 24 unit subcut DAILY Qty: 15 5RF Rx Instructions: Inject 6 units with breakfast, 8 units with lunch, 10 units with dinner plus sliding scale TDD 40 units insulin degludec [Tresiba FlexTouch U-100] 100 unit/mL (3 mL) insulin pen 48 unit SQ QPM Qty: 15 5RF meclizine 25 mg tablet 25 mg PO BID PRN (Reason: dizziness) Qty: 30 0RF (DME) pen needle, diabetic [BD Ultra-Fine [place] Pen Needle] 32 gauge x 5/32" needle See Rx Instructions .ROUTE .MEDSUPPLY Dose Instruction: As directed Rx Instructions: Inject insulin four times daily Praluent Pen 75 mg/mL pen injector 75 mg subcut Q14D Qty: 2 11RF diclofenac sodium [Arthritis Pain (diclofenac)] 1 % gel 2 g topical QID PRN (Reason: Pain) Trelegy Ellipta 100-62.5-25 mcg blister with device 1 inh inhalation DAILY Qty: 28 11RF Rx Instructions: She was instructed to rinse mouth thoroughly after each dose. Linzess 145 mcg capsule 145 mcg PO QAM PRN (Reason: Constipation) Patient Comments: Take 30 minutes prior to first meal of the day. Do Not open or Crush capsule (DME) FreeStyle Renan 2 Sensor Kit See Rx Instructions .Route Rx Instructions: As directed (DME) FreeStyle Renan 2 [place] Misc See Rx Instructions .Route Rx Instructions: As directed nitroglycerin [Nitrostat] 0.4 mg tablet, sublingual 0.4 mg Sublingual UD PRN (Reason: Chest Pain) Qty: 1 3RF benzonatate 200 mg capsule 200 mg PO TID PRN (Reason: cough) Qty: 30 0RF gabapentin 100 mg capsule 100 mg PO HS Qty: 90 3RF buspirone 10 mg tablet 10 mg PO TID Qty: 270 1RF duloxetine 30 mg capsule,delayed release(DR/EC) 30 mg PO QAM Qty: 90 3RF ezetimibe [Zetia] 10 mg tablet 10 mg PO QAM Qty: 90 3RF famotidine 20 mg tablet 20 mg PO BID Qty: 180 2RF isosorbide mononitrate 30 mg tablet extended release 24 hr 60 mg PO QAM Qty: 180 3RF metformin 500 mg tablet 1,000 mg PO BID Qty: 360 3RF metoprolol succinate 100 mg tablet extended release 24 hr 100 mg PO QAM Qty: 90 3RF ondansetron HCl 4 mg tablet 4 mg PO Q8H PRN (Reason: nausea and vomiting) Qty: 30 0RF pantoprazole 40 mg tablet,delayed release (DR/EC) 40 mg PO BID Qty: 180 3RF Rx Instructions: TAKE 1 TABLET BY MOUTH TWICE A DAY rosuvastatin 40 mg tablet 40 mg PO QAM Qty: 90 3RF Rx Instructions: Patient would like to use pill pack aspirin 81 mg Tablet,Delayed Release (Dr/Ec) 81 mg PO QAM albuterol sulfate 90 mcg/actuation HFA aerosol inhaler 2 inha INH QID PRN (Reason: shortness of breath or wheezing) Qty: 1 0RF Discontinued cholecalciferol (vitamin D3) [Vitamin D3] 25 mcg (1,000 unit) capsule 1,000 unit PO QAM Qty: 90 1RF Rx Instructions: Patient would like to use pill pack lisinopril 10 mg tablet 10 mg PO QAM Qty: 90 3RF Discharge Orders: Discharge Order (Routine); Ordered 10/08/22 Ordered By: Evelyn Stinson/Other Patient Handouts: High Blood Sugar (Hyperglycemia), Hypoglycemia (Low Blood Sugar), Diabetes: Sick-Day Plan Admission Data Admit Date/Time: 10/06/22 23:34 Attending Provider: Andrew Willis Admit Provider: Kenyatta Sanders Primary Care Provider: Lalito Pimentel Other Providers: Kenyatta Sanders Other Interventions: Discharge Summary Assessment (RN) Last Done: 10/08/22 13:02 Supervising Physician Co-Signing Physician Notes The patient was seen and examined by me. Chart reviewed. Case discussed with JAVI Woods. Agree with assessment and plan. She will be discharged home today, October 08 Coding Level of Care Code INP/OBS EV SAME DAY LV 3,85MIN Diagnoses Hyperosmolar hyperglycemic state (HHS) E11.00 Hypotension I95.9 Hyperglycemia R73.9 CAD (coronary artery disease) I25.10 Associated angina: angina presence unspecified Coronary Disease-Associated Artery/Lesion type: [place] artery [place] vs. transplanted heart: [place] heart Anemia D64.9 CKD (chronic kidney disease), stage III N18.30 GERD (gastroesophageal reflux disease) K21.9 Esophagitis presence: without esophagitis HTN (hypertension) I10 Dyslipidemia E78.5 Vitamin D deficiency E55.9 Vitamin B12 deficiency E53.8 Folic acid deficiency E53.8
[2022-10-09] MEDS ORDERED: CYANOCOBALAMIN (B-12) 500 MCG TABLET PO SCH (09:00)
== END 2022-10-08 15:39 | disposition home or self-care (01) | DRG 637 ==
LOC: ED 19:37 → 2S 23:34 → INTOOBSV 23:34 → SUATTDRO 23:34 → 2S 10-07 01:41

== ENCOUNTER 2023-05-14 10:31 | Observation (INO) ==
--- NOTE | 2023-05-14 11:45 | Emergency Department Note ---
Impression & Plan Cervical radiculopathy, Acute neck pain, Edema ED Provider Note NAME: SHIRA CUNNINGHAM AGE: 78 SEX: F : 1945 ARRIVES VIA: Walk-In INFORMANT: Patient ED PROVIDER(S): Fadi Clemons DO CHIEF COMPLAINT: left arm pain HPI: Patient is a 78-year-old female who is presenting for left arm pain which has been present for the past 3 months. She currently being treated for cerv ical radiculopathy per review of her chart by orthopedics. She notes that she can no longer get around at home. Her and home health spoke with her care managers. They referred her into the ER today as she is unable to get around or care for herself. She denies any headache but admits to pain in the posterior left neck. No chest pain or shortness of breath. No nausea, vomiting, or diarrhea. No dysuria, urgency, or frequency. Additional history obtained by our psychiatric child care attendant who spoke with her child care attendant and notes they sent her over here for admission. ADDITIONAL HISTORY OBTAINED: Per HPI/care managers Chronic Medical/Social Conditions Affecting Care: Per HPI PAST MEDICAL HISTORY:See Below PAST SURGICAL HISTORY:See Below FAMILY HISTORY:See Below SOCIAL HISTORY:See Below HOME MEDICATIONS:See Below ALLERGIES:See Below VITALS:See Below PHYSICAL EXAMINATION: GENERAL: Sitting up in bed, alert, well appearing, well nourished, no distress, non-toxic EYE EXAM: normal conjunctiva. PERRL and EOM's grossly intact. OROPHARYNX: mucous membranes are moist LUNGS: Clear to auscultation. Normal chest wall mechanics HEART: no murmurs, S1 normal and S2 normal ABDOMEN: abdomen soft, non-tender, normo-active bowel sounds, no masses, no rebound or guarding. BACK: Back is symmetrical on inspection and there is no deformity, no midline tenderness, no CVA tenderness. SKIN: no rashes and no bruising UPPER EXTREMITIES: Flexion extension left shoulder with moderate amount of pain as well as internal and external rotation. No tenderness throughout the mid or distal humerus. No tenderness throughout flexion or extension of the left elbow. Radial pulse 2 out of 4 on the left. Flexion extension of the wrist with severe pain and only 20 degrees worth of flexion extension. Severe pain with grass of the left hand. Edema of the left forearm and wrist. LOWER EXTREMITIES: No pitting edema. NEURO EXAM: Normal sensorium, cranial nerves II-XII grossly intact, normal speech, no gross weakness of arms, no gross weakness of legs. MEDICAL DECISION MAKING: Patient 78-year-old female has been extensively worked up as an outpatient and diagnosed with cervical radiculopathy. She is having trouble managing her day-to-day life as she lives at home by herself. She was brought in by a neighbor. They spoke with care managers and was set to come in to be admitted for possible placement. She is following with orthopedics Dr. Manuel as an outpatient had MRI performed about 2 weeks ago. IV was established blood work was obtained. Labs show no significant leukocytosis or anemia. BMP with slightly elevated glucose at 300. LFTs bilirubin was unremarkable. Lipase was normal. Patient was given morphine, and Toradol. Chest x-ray was unremarkable. Duplex of the left upper extremity was negative. Discussed with the hospitalist for further evaluation management treatment. External Records Reviewed: Seen and treated by Kaleb for cervical radiculopathy Consults/Care Managements Discussions: Per [facility] Triage Nursing notes reviewed. Limited review of prior medical records performed Vital Signs: reviewed and remarkable for no significant abnormalities Differential diagnosis: Differential Diagnosis includes but is not limited to ischemic Stroke, hemorrhagic stroke, bells palsy, mass, neoplasm, migraine headache, seizure, subarachnoid hemorrhage, TIA, and transient global amnesia. ER treatment provided: See below Diagnostics interpreted by me include EKG and cardiac monitoring as listed below: -Cardiac Monitoring: An order was placed for continuous cardiac monitoring. The monitor shows a rate of 101 with sinus rhythm. -ECG: Sinus rhythm rate 91 Normal axis No PVCs QTc 447 -Laboratory studies:Interpreted by me as stated above in MDM and shown below. Imaging studies: Xrays: As interpreted by me: Portable AP upright 1 view the chest shows no focal infiltrate CTs show: none Procedures:none Critical Care: None Past Med/Surg History Medical History Abrasion Accelerated essential hypertension Acute non-ST elevation myocardial infarction (NSTEMI) Asymptomatic bacteriuria Back pain Mckeon esophagus CAD (coronary artery disease) Cervical pain (neck) Chest pain Chest pain Chronic pain syndrome Depression Diabetes mellitus, type 2 Diabetic gastroparesis Diabetic peripheral neuropathy Dyslipidemia Elevated troponin Elevated troponin Fall Folic acid deficiency GERD without esophagitis History of COVID-19 Hypotension IBS (irritable bowel syndrome) Lumbar spondylosis Myocardial Infarction Type 2 diabetes mellitus with chronic kidney disease Vitamin B12 deficiency Surgical History History of cardiac cath History of cataract surgery History of cholecystectomy History of colonoscopy with polypectomy History of esophageal dilatation History of esophagogastroduodenoscopy (EGD) History of lumbar spinal fusion History of tooth extraction History of total hysterectomy with bilateral salpingo-oophorectomy (BSO) History of total right knee replacement (TKR) S/P coronary artery stent placement Status post trigger finger release Family History Brother Myocardial infarction Anxiety Heart disease Hypertension Cancer Sister Family history of reaction to anesthesia difficulty waking Hypertension Heart disease Myocardial infarction Anxiety Cancer Diabetes Father Anxiety Heart disease Hypertension Mother Anxiety Hypertension Heart disease Unknown Cancer skin, GI Denies family history of Ovarian cancer Prostate cancer Breast cancer Colorectal cancer Stroke Social History Smoking Status: Never smoker Tobacco Type: Cigarettes Age Started Using Tobacco: 18; Age Quit Using Tobacco: 57; Cigarettes Per Day: 3 cigarettes a week; Second Hand Exposure: No; Do You Dip or Chew Tobacco: No; Hx Alcohol Use: No Hx Substance Use: No Preferred Language: Australian Communication Ability: Effective Visual Impairment: Limited Hearing Ability: Normal Office Support Specialist Required: No Beliefs That Will Affect Care: None marital status: / Current Living Situation: Alone Current Living Situation Comment: apartment building current occupational status: retired and disabled How many Children do You have: 3 Feels Safe at Home: No Is there a partner from a previous relationship who is making you feel unsafe now?: No Childhood Exposure to Second-Hand Smoke: No caffeine: Yes (drinks coffee, diet pepsi occasionally ) Dental Care, Regularly: No Physical Activity Frequency: Does not Exercise Seatbelt Use: always Sunscreen Use: No Assistive Devices: Cane and Walker Allergies Allergies Allergy/AdvReac Type Severity Reaction Status Date / Time cephalexin Allergy Intermediate Rash and Verified 05/04/23 08:54 itchiness Cephalosporins Allergy Intermediate Rash and Verified 05/04/23 08:54 itchiness Sulfa (Sulfonamide Allergy Intermediate Hives Verified 05/04/23 08:54 Antibiotics) Home Meds Home Medications Medication Instructions Recorded Confirmed linaclotide 145 mcg capsule 145 mcg PO QAM PRN Constipation 04/05/19 05/14/23 (Linzess) aspirin 81 mg tablet,delayed 81 mg PO QAM 10/24/21 05/14/23 release Vitamin B 12 Cypo Value 200+20 1 tab PO DAILY 03/25/23 05/14/23 buspirone 10 mg tablet 10 mg PO TID 03/25/23 05/14/23 famotidine 20 mg tablet 20 mg PO BID 03/25/23 05/14/23 isosorbide mononitrate 30 mg 30 mg PO QAM 03/25/23 05/14/23 tablet,extended release 24 hr lisinopril 10 mg tablet 10 mg PO QAM 05/14/23 05/14/23 Previous Rx's Medication Instructions Recorded albuterol sulfate 90 mcg/actuation 2 inha inhalation QID PRN 01/10/22 aerosol inhaler shortness of breath or wheezing #1 g fluticasone fur. 100 mcg-umeclid 1 inh inhalation DAILY #28 ea 02/11/22 62.5 mcg-vilant 25 mcg inhalat.powder (Trelegy Ellipta) alirocumab 75 mg/mL subcutaneous 75 mg subcut Q14D #2 mL 05/21/22 pen injector (Praluent Pen) gabapentin 100 mg capsule 100 mg PO HS #90 caps 09/17/22 duloxetine 30 mg capsule,delayed 30 mg PO QAM #90 caps 09/18/22 release ezetimibe 10 mg tablet (Zetia) 10 mg PO QAM #90 tabs 09/18/22 metformin 500 mg tablet 1,000 mg PO BID #360 tabs 09/18/22 metoprolol succinate 100 mg 100 mg PO QAM #90 tabs 09/18/22 tablet,extended release 24 hr ondansetron HCl 4 mg tablet 4 mg PO Q8H PRN nausea and 09/18/22 vomiting #30 tabs pantoprazole 40 mg tablet,delayed 40 mg PO BID #180 tabs 09/18/22 release rosuvastatin 40 mg tablet 40 mg PO QAM #90 tabs 09/18/22 meclizine 25 mg tablet 25 mg PO BID PRN dizziness #30 tabs 10/05/22 nitroglycerin 0.4 mg sublingual 0.4 mg sublingual UD PRN Chest 11/06/22 tablet (Nitrostat) Pain #1 btl ergocalciferol (vitamin D2) 1,250 50,000 unit PO Q7D@0900 #4 caps 01/28/23 mcg (50,000 unit) capsule diclofenac sodium 1 % topical gel 2 g topical QID PRN Pain #100 grams 02/04/23 (Arthritis Pain (diclofenac)) folic acid 1 mg tablet See Rx Instructions .Route 02/23/23 .COMPLEX #30 tabs amoxicillin 875 mg-potassium 1 tab PO BID #14 tabs 03/25/23 clavulanate 125 mg tablet insulin aspart U-100 100 unit/mL 8 unit (0.08 mL) subcut TID #15 mL 03/26/23 (3 mL) subcutaneous pen (Novolog FlexPen U-100 Insulin aspart) insulin degludec 100 unit/mL (3 30 unit (0.3 mL) subcut QPM #15 mL 03/26/23 mL) subcutaneous pen (Tresiba FlexTouch U-100 insulin) acetaminophen 300 mg-codeine 30 mg 1 tab PO Q8H PRN pain #3 tabs 03/30/23 tablet lidocaine 5 % topical patch 1 patch topical DAILY PRN pain #15 03/30/23 (Lidoderm) ea metaxalone 400 mg tablet 400 mg PO HS PRN muscle pain #10 04/06/23 tabs tramadol 50 mg tablet 50 mg PO Q6H PRN pain #20 tabs 04/23/23 tramadol 50 mg tablet 50 mg PO HS PRN pain #20 tabs 05/05/23 Results & Data (ED) Vital Signs Vital Signs - 24 hr 05/14/23 10:42 05/14/23 11:40 05/14/23 12:06 Temperature 36.6 C Temperature Source Temporal Artery Scan Pulse Rate 102 H 102 H 87 Pulse Rate from SpO2 Sensor Pulse Rhythm Regular Respiratory Rate 18 18 Respiratory Depth Normal Blood Pressure 160/93 H Blood Pressure Mean 115 Blood Pressure Position Sitting Pulse Oximetry 98 98 Oxygen Delivery Method Room Air Room Air Sepsis Recent Fever Within 48 Hours No Sepsis New/Unexplained Change in Mental Status No Sepsis Action Taken by Nursing No Action Required 05/14/23 12:00 05/14/23 13:15 Temperature Temperature Source Pulse Rate 89 92 H Pulse Rate from SpO2 Sensor 90 Pulse Rhythm Respiratory Rate 18 20 Respiratory Depth Blood Pressure 179/98 H 159/89 H Blood Pressure Mean 125 112 Blood Pressure Position Pulse Oximetry 98 99 Oxygen Delivery Method Sepsis Recent Fever Within 48 Hours Sepsis New/Unexplained Change in Mental Status Sepsis Action Taken by Nursing Laboratory Data 05/14/23 11:50 05/14/23 11:50 Lab Results 05/14/23 05/14/23 Range/Units 11:50 11:50 WBC 6.95 (4.8-10.8) K/ul RBC 4.65 (4.20-5.40) M/uL Hgb 12.4 (12.0-16.0) g/dl Hct 37.4 (37.0-47.0) % MCV 80.4 (80.0-100.0) fL MCH 26.7 (25.0-34.0) pg MCHC 33.2 (32.0-36.0) g/dL RDW Std Deviation 39.8 (36.4-46.3) fL RDW Coeff of Tino 13.7 (11.5-14.5) % Plt Count 248 (130-400) K/uL MPV 10.2 (9.4-12.4) fL Immature Gran % (Auto) 0.7 % Neut % (Auto) 63.8 % Lymph % (Auto) 26.6 % Marion % (Auto) 6.8 % Eos % (Auto) 1.2 % Baso % (Auto) 0.9 % Neut # (Auto) 4.44 (1.40-6.50) K/uL Lymph # (Auto) 1.85 (1.20-3.40) K/uL Marion # (Auto) 0.47 (0.11-0.59) K/uL Eos # (Auto) 0.08 (0.00-0.50) K/uL Baso # (Auto) 0.06 (0.00-0.20) K/uL Immature Gran # (Auto) 0.05 (0.01-0.20) K/uL Sodium 135 L (136-145) mmol/L Potassium 4.3 (3.5-5.1) mmol/L Chloride 102 (98-107) mmol/L Carbon Dioxide 25 (21-32) mmol/L Anion Gap 8 (3-11) BUN 21 (6-23) mg/dl Creatinine 0.77 (0.6-1.2) mg/dl Est Cr Clr Drug Dosing 58.2 ml/min Est GFR ( Amer) 86.9 ml/min Est GFR (Non-Af Amer) 75.0 ml/min BUN/Creatinine Ratio 27.3 H (10-20) Glucose 296 H (70-99(Fasting)) mg/dl Calcium 9.3 (8.6-10.3) mg/dl Total Bilirubin 0.6 (0.2-1.0) mg/dl AST 11 L (13-39) U/L ALT 11 (7-52) U/L Alkaline Phosphatase 85 (34-104) U/L Troponin I High Sens 5.5 (0-14) pg/ml Total Protein 6.9 (6.0-8.3) gm/dl Albumin 3.8 (3.4-5.0) gm/dl Globulin 3.1 (2.5-4.0) gm/dl Albumin/Globulin Ratio 1.2 (0.9-2) Lipase 27 (11-82) U/L Administered Medications Discontinued Medications Dexamethasone (Dexamethasone Sod Inj 4 Mg/Ml Vial) 8 mg IV NOW STA Stop: 05/14/23 12:34 Last Admin: 05/14/23 12:59 Dose: 8 mg Documented By: HERMILO Hydromorphone HCl (Hydromorphone Inj 0.5 Mg/0.5 Ml Syr) 0.5 mg IV NOW STA Stop: 05/14/23 12:22 Last Admin: 05/14/23 12:59 Dose: 0.5 mg Documented By: HERMILO Imaging Data Radiologist's Impression: Chest X-Ray 05/14/23 11:14 XR chest 1V portable CLINICAL HISTORY: Chest pain, nonspecific TECHNIQUE: Single frontal radiograph of the chest was obtained. Comparison: Comparison is made to chest radiograph 03/30/2023 FINDINGS: No lines and tubes are seen. The cardiomediastinal silhouette is normal. The l ungs are clear. No evidence of pleural effusion or pneumothorax. IMPRESSION: No acute chest disease. ACT 112: Negative or not required by law. Electronically signed by: Josh Lange M.D. 05/14/2023 12:45 PM Extremity Venous Study 05/14/23 11:19 ULTRASOUND LEFT UPPER EXTREMITY VENOUS CLINICAL HISTORY: Acute pain and swelling of the left upper extremity. COMPARISON STUDY: 03/25/2023. TECHNIQUE: Real-time, grayscale, and color Doppler sonography of the deep veins of the left upper extremity is performed. Compression and augmentation were utilized. FINDINGS: There is no sonographic evidence of deep venous thrombosis identified in the left upper extremity. The left internal jugular, axillary, and brachial veins are patent and normally compressible. Normal venous waveforms and augmentation are seen within the left subclavian vein. The cephalic and basilic veins are clear. The visualized radial and ulnar veins are patent. IMPRESSION: There is no sonographic evidence of deep venous thrombosis identified in the left upper extremity. ACT 112: Negative or not required by law. Electronically signed by: Jordan Vee M.D. 05/14/2023 2:32 PM Discharge Plan Visit Data Chief Complaint: Hand Injury/Pain Stated Complaint: HAND PAIN ED Provider: Fadi Clemons Discharge Problem: Cervical radiculopathy, Acute neck pain, Edema Forms Stand Alone Forms: [facility] Prescriptions Prescriptions: No Action meclizine 25 mg tablet 25 mg PO BID PRN (Reason: dizziness) Qty: 30 0RF nitroglycerin [Nitrostat] 0.4 mg tablet, sublingual 0.4 mg Sublingual UD PRN (Reason: Chest Pain) Qty: 1 3RF ergocalciferol (vitamin D2) 1,250 mcg (50,000 unit) capsule 50,000 unit PO Q7D@0900 Qty: 4 3RF folic acid 1 mg tablet See Rx Instructions .ROUTE .COMPLEX Qty: 30 3RF Dose Instruction: TAKE 1 TABLET BY MOUTH ONCE DAILY IN THE MORNING Rx Instructions: TAKE 1 TABLET BY MOUTH ONCE DAILY IN THE MORNING metaxalone 400 mg tablet 400 mg PO HS PRN (Reason: muscle pain) Qty: 10 0RF tramadol 50 mg tablet 50 mg PO Q6H PRN (Reason: pain) Qty: 20 0RF Praluent Pen 75 mg/mL pen injector 75 mg subcut Q14D Qty: 2 11RF diclofenac sodium [Arthritis Pain (diclofenac)] 1 % gel 2 g topical QID PRN (Reason: Pain) Qty: 100 2RF insulin aspart U-100 [Novolog FlexPen U-100 Insulin] 100 unit/mL (3 mL) insulin pen 8 unit subcut TID Qty: 15 5RF Rx Instructions: inject 8 units with every meal. TDD up to 40 units a day insulin degludec [Tresiba FlexTouch U-100] 100 unit/mL (3 mL) insulin pen 30 unit SQ QPM Qty: 15 5RF Trelegy Ellipta 100-62.5-25 mcg blister with device 1 inh inhalation DAILY Qty: 28 11RF Rx Instructions: She was instructed to rinse mouth thoroughly after each dose. Linzess 145 mcg capsule 145 mcg PO QAM PRN (Reason: Constipation) Patient Comments: Take 30 minutes prior to first meal of the day. Do Not open or Crush capsule gabapentin 100 mg capsule 100 mg PO HS Qty: 90 3RF duloxetine 30 mg capsule,delayed release(DR/EC) 30 mg PO QAM Qty: 90 3RF ezetimibe [Zetia] 10 mg tablet 10 mg PO QAM Qty: 90 3RF metformin 500 mg tablet 1,000 mg PO BID Qty: 360 3RF metoprolol succinate 100 mg tablet extended release 24 hr 100 mg PO QAM Qty: 90 3RF ondansetron HCl 4 mg tablet 4 mg PO Q8H PRN (Reason: nausea and vomiting) Qty: 30 0RF pantoprazole 40 mg tablet,delayed release (DR/EC) 40 mg PO BID Qty: 180 3RF Rx Instructions: TAKE 1 TABLET BY MOUTH TWICE A DAY rosuvastatin 40 mg tablet 40 mg PO QAM Qty: 90 3RF Rx Instructions: Patient would like to use pill pack tramadol 50 mg tablet 50 mg PO HS PRN (Reason: pain) Qty: 20 0RF aspirin 81 mg Tablet,Delayed Release (Dr/Ec) 81 mg PO QAM albuterol sulfate 90 mcg/actuation HFA aerosol inhaler 2 inha INH QID PRN (Reason: shortness of breath or wheezing) Qty: 1 0RF Vitamin B 12 Cypo Value 200+20 1 tab PO DAILY buspirone 10 mg tablet 10 mg PO TID Rx Instructions: TAKE ONE TABLET BY MOUTH THREE TIMES DAILY famotidine 20 mg tablet 20 mg PO BID Rx Instructions: PER DR 1ST isosorbide mononitrate 30 mg tablet extended release 24 hr 30 mg PO QAM amoxicillin-pot clavulanate 875-125 mg tablet 1 tab PO BID Qty: 14 0RF acetaminophen-codeine 300-30 mg tablet 1 tab PO Q8H PRN (Reason: pain) Qty: 3 0RF lidocaine [Lidoderm] 5 % adhesive patch,medicated 1 patch TOP DAILY PRN (Reason: pain) Qty: 15 0RF Rx Instructions: leave on most painful area for up to 12 hrs lisinopril 10 mg tablet 10 mg PO QAM Referrals Referrals: Berkley Sen PA-C [Primary Care Provider] -
[2023-05-14] MEDS ORDERED: HYDROmorphone INJ 0.5 MG/0.5 ML SYR IV STA (12:21)
--- NOTE | 2023-05-14 12:21 | History & Physical Report ---
Date of Service May 14, 2023 Assessment & Plan (1) Cervical radiculopathy: Plan: 78yo Female with PMH cervical radiculopathy anxiety IBS GERD, poorly managed DM2 HTN CAD CKD3 anemia, here for concerns worsened b/l arm pain and swelling. Cervical radiculopathy b/l -ordered MRI cervical w/o contrast -US UE negative for DVT -consult placed to Ortho spine, Dr. Cheung to see her on weekend -Ordered dexamethasone 8mg IV today, will repeat dose tomorrow -In ED received morphine dilaudid toradol for pain control -admit to med surg -will order scheduled tylenol PRN toradol for pain control -NPO midnight HTN, CAD -continue metoprolol, isosorbide mononitrate, ASA HLD -continue ezetimibe, rosuvastatin GERD -continue famotidine protonix Depression -continue buspirone, duloxetine DM2 -ordered SSI -hold home metformin -consult glycemic pharmacy FENa: heart healthy carb consistent, NPO midnight Code Status: DNR/DNI DVT PPX: SCDs PT/OT: ordered Dispo: med/surg Polina Ortega D.O. PGY 3, FCM (2) Anxiety: (3) IBS (irritable bowel syndrome): (4) CAD (coronary artery disease): (5) GERD (gastroesophageal reflux disease): (6) Uncontrolled type 2 diabetes mellitus with neurologic complication, with long-term current use of insulin: (7) Diabetic gastroparesis: (8) Dyslipidemia: (9) HTN (hypertension): (10) CKD (chronic kidney disease), stage III: History of Present Illness Chief Complaint: Cervical Radiculopathy Primary Care Provider: Berkley Sen PA-C 78yo Female with PMH cervical radiculopathy anxiety IBS GERD, poorly managed DM2 HTN CAD CKD3 anemia, here for concerns worsened b/l arm pain and swelling. Patient has chronic cervical radiculopathy symptoms pain radiating from neck to both arms down to her fingers. 3 months ago she noticed the pain was gradually worsening, no inciting event noted. Today patient describes pain as 10/10 acutely worse than prior, states pain is sharp and feels like she's on fire, does not note increased warmth in hands. Patient described gradually worsening swelling of both hands with pain on palpation that improved towards the end of the day. States she is unable to make a fist with either hand. She describes numbness across her entire left arm and her lower right arm, this numbness occasionally improves but is usually present. Patient states the swelling and pain in both hands has made it difficult for her to use her walker, apply topical medications, and cook for herself. Patient states she lives alone and is no longer able to support herself due to her ongoing pain. Patient has been following with ortho was started on gabapentin tramadol and topical voltaren gel, had difficulty applying gel other pain medications somewhat help. Had 2 courses steroids oral with 70% pain improvement, however ortho states she cannot continuously be on steroid was sent in to ED. Was originally scheduled to see pain management on 05/21. Had MRI neck 04/30 with multilevel degenerative disc disease and multilevel neural foraminal stenosis. Patient also has a history of radicular pain radiating down both legs over 3 months ago that has since resolved, no difficulty ambulating due to leg pain Allergies Allergy/AdvReac Type Severity Reaction Status Date / Time cephalexin Allergy Intermediate Rash and Verified 05/04/23 08:54 itchiness Cephalosporins Allergy Intermediate Rash and Verified 05/04/23 08:54 itchiness Sulfa (Sulfonamide Allergy Intermediate Hives Verified 05/04/23 08:54 Antibiotics) Home Medications Medication Instructions Recorded Confirmed Type linaclotide 145 mcg capsule 145 mcg PO QAM PRN Constipation 04/05/19 05/14/23 History (Linzess) aspirin 81 mg tablet,delayed 81 mg PO QAM 10/24/21 05/14/23 History release albuterol sulfate 90 mcg/actuation 2 inha inhalation QID PRN 01/10/22 05/14/23 Rx aerosol inhaler shortness of breath or wheezing #1 g fluticasone fur. 100 mcg-umeclid 1 inh inhalation DAILY #28 ea 02/11/22 05/14/23 Rx 62.5 mcg-vilant 25 mcg inhalat.powder (Trelegy Ellipta) alirocumab 75 mg/mL subcutaneous 75 mg subcut Q14D #2 mL 05/21/22 05/14/23 Rx pen injector (Praluent Pen) gabapentin 100 mg capsule 100 mg PO HS #90 caps 09/17/22 05/14/23 Rx duloxetine 30 mg capsule,delayed 30 mg PO QAM #90 caps 09/18/22 05/14/23 Rx release ezetimibe 10 mg tablet (Zetia) 10 mg PO QAM #90 tabs 09/18/22 05/14/23 Rx metformin 500 mg tablet 1,000 mg PO BID #360 tabs 09/18/22 05/14/23 Rx metoprolol succinate 100 mg 100 mg PO QAM #90 tabs 09/18/22 05/14/23 Rx tablet,extended release 24 hr ondansetron HCl 4 mg tablet 4 mg PO Q8H PRN nausea and 09/18/22 05/14/23 Rx vomiting #30 tabs pantoprazole 40 mg tablet,delayed 40 mg PO BID #180 tabs 09/18/22 05/14/23 Rx release rosuvastatin 40 mg tablet 40 mg PO QAM #90 tabs 09/18/22 05/14/23 Rx meclizine 25 mg tablet 25 mg PO BID PRN dizziness #30 tabs 10/05/22 05/14/23 Rx nitroglycerin 0.4 mg sublingual 0.4 mg sublingual UD PRN Chest 11/06/22 05/14/23 Rx tablet (Nitrostat) Pain #1 btl ergocalciferol (vitamin D2) 1,250 50,000 unit PO Q7D@0900 #4 caps 01/28/23 05/14/23 Rx mcg (50,000 unit) capsule diclofenac sodium 1 % topical gel 2 g topical QID PRN Pain #100 grams 02/04/23 05/14/23 Rx (Arthritis Pain (diclofenac)) folic acid 1 mg tablet See Rx Instructions .Route 02/23/23 05/14/23 Rx .COMPLEX #30 tabs Vitamin B 12 Cypo Value 200+20 1 tab PO DAILY 03/25/23 05/14/23 History amoxicillin 875 mg-potassium 1 tab PO BID #14 tabs 03/25/23 05/14/23 Rx clavulanate 125 mg tablet buspirone 10 mg tablet 10 mg PO TID 03/25/23 05/14/23 History famotidine 20 mg tablet 20 mg PO BID 03/25/23 05/14/23 History isosorbide mononitrate 30 mg 30 mg PO QAM 03/25/23 05/14/23 History tablet,extended release 24 hr insulin aspart U-100 100 unit/mL 8 unit (0.08 mL) subcut TID #15 mL 03/26/23 05/14/23 Rx (3 mL) subcutaneous pen (Novolog FlexPen U-100 Insulin aspart) insulin degludec 100 unit/mL (3 30 unit (0.3 mL) subcut QPM #15 mL 03/26/23 05/14/23 Rx mL) subcutaneous pen (Tresiba FlexTouch U-100 insulin) acetaminophen 300 mg-codeine 30 mg 1 tab PO Q8H PRN pain #3 tabs 03/30/23 05/14/23 Rx tablet lidocaine 5 % topical patch 1 patch topical DAILY PRN pain #15 03/30/23 05/14/23 Rx (Lidoderm) ea metaxalone 400 mg tablet 400 mg PO HS PRN muscle pain #10 04/06/23 05/14/23 Rx tabs tramadol 50 mg tablet 50 mg PO Q6H PRN pain #20 tabs 04/23/23 05/14/23 Rx tramadol 50 mg tablet 50 mg PO HS PRN pain #20 tabs 05/05/23 05/14/23 Rx lisinopril 10 mg tablet 10 mg PO QAM 05/14/23 05/14/23 History Past Med/Surg History Medical History Abrasion Accelerated essential hypertension Acute non-ST elevation myocardial infarction (NSTEMI) Asymptomatic bacteriuria Back pain [place]ke[place] esophagus CAD (coronary artery disease) Cervical pain (neck) Chest pain Chest pain Chronic pain syndrome Depression Diabetes mellitus, type 2 Diabetic gastroparesis Diabetic peripheral neuropathy Dyslipidemia Elevated troponin Elevated troponin Fall Folic acid deficiency GERD without esophagitis History of COVID-19 Hypotension IBS (irritable bowel syndrome) Lumbar spondylosis Myocardial Infarction Type 2 diabetes mellitus with chronic kidney disease Vitamin B12 deficiency Surgical History History of cardiac cath History of cataract surgery History of cholecystectomy History of colonoscopy with polypectomy History of esophageal dilatation History of esophagogastroduodenoscopy (EGD) History of lumbar spinal fusion History of tooth extraction History of total hysterectomy with bilateral salpingo-oophorectomy (BSO) History of total right knee replacement (TKR) S/P coronary artery stent placement Status post trigger finger release Family History Brother Myocardial infarction Anxiety Heart disease Hypertension Cancer Sister Family history of reaction to anesthesia difficulty waking Hypertension Heart disease Myocardial infarction Anxiety Cancer Diabetes Father Anxiety Heart disease Hypertension Mother Anxiety Hypertension Heart disease Unknown Cancer skin, GI Denies family history of Ovarian cancer Prostate cancer Breast cancer Colorectal cancer Stroke Social History Smoking Status: Never smoker Tobacco Type: Cigarettes Age Started Using Tobacco: 18; Age Quit Using Tobacco: 57; Cigarettes Per Day: 3 cigarettes a week; Second Hand Exposure: No; Do You Dip or Chew Tobacco: No; Hx Alcohol Use: No Hx Substance Use: No Preferred Language: Slovak Communication Ability: Effective Visual Impairment: Limited Hearing Ability: Normal Image Assembler Required: No Beliefs That Will Affect Care: None marital status: / Current Living Situation: Alone Current Living Situation Comment: apartment building current occupational status: retired and disabled How many Children do You have: 3 Feels Safe at Home: No Is there a partner from a previous relationship who is making you feel unsafe now?: No Childhood Exposure to Second-Hand Smoke: No caffeine: Yes (drinks coffee, diet pepsi occasionally ) Dental Care, Regularly: No Physical Activity Frequency: Does not Exercise Seatbelt Use: always Sunscreen Use: No Assistive Devices: Cane and Walker Physical Exam Constitutional: well developed, well nourished and + in distress Eyes: PERRL, conjunctivae normal, anicteric sclerae ENMT: external ear and nose normal, oropharynx normal Neck: trachea midline, no thyromegaly Respiratory: normal respiratory effort, lungs clear to auscultation Cardiovascular: RRR, no murmur, no edema Gastrointestinal (Abdomen): normal bowel sounds, soft, nontender, no hepatosplenomegaly Musculoskeletal: 5/5 strength testing in b/l UE limited by pain. ROM b/l upper extremities severely limited by pain. Noted swelling in b/l hands and wrists L>R with difficulty forming a fist. Skin: no rashes, warm and dry nonpitting edema erythema noted in b/l hands and wrists with noted pain on palpation. Neurologic: CN's II-XI intact bilaterally Describes numbness pain on light touch to entire left UE including fingers, arm, left anterior lateral chest, and left neck. Numbness noted on right hand on light touch Decreased sensation noted on right LE to light touch from ankle residential up to knee, decreased sensation on left ankle Results & Data Results & Data Vital Signs (Past 12 Hours) Vital Signs Temp Pulse Resp BP Pulse Ox O2 Del Method 05/14/23 12:06 87 05/14/23 11:40 102 H 18 98 Room Air 05/14/23 10:42 36.6 C 102 H 18 160/93 H 98 Room Air Supervising Physician Co-Signing Physician Notes Patient seen and examined, chart reviewed, case discussed with Dr. Ortega, DO and I agree with the assessment and plan as above except as otherwise noted Labs and images reviewed Claire is a 78-year-old female with a past history of progressive cervical radiculopathy which has been gradually worsening over the past 2 months. This has been worse in general in the last 4 weeks but she awoken suddenly with a rapid increase in her pain to 10/10 shooting pain down both arms but which is worse in the left arm. This makes it difficult to close her hand and she is unable to ambulate as she cannot put pressure on her walker. She has been on 2 courses of steroids in the last 2 months which improved about 70% of her pain, but was told she cannot be on continued and recurring steroids. She was scheduled to see pain management for possible epidural injection the first week of May, but had rapid worsening of her pain this morning and does not feel that she will be able to make that appointment. Due to her rapid change and escalation in pain Case was reviewed with Dr. Cheung. recommend repeat noncon MRI. Prior MRI reviewed at time of phone discussion, due to severe multilevel disease will likely need surgical decompression. May give dose of dexamethasone today and tomorrow to help with pain, continue pain control over the weekend, and then will likely pursue surgical intervention after the weekend. Appreciate recommendations. At bedside assessment patient has a very limited range of commissary manager strength elbow flexion and shoulder flexion due to induction of pain when it causes her to move at the neck, but does have 5/5 commissary manager strength and elbow flexion with effort within her tolerable range of motion. sensation of soft touch is intact in hands bilaterally agree with assessment and management as above Resident Activity Tracking Resident Involvement: Resident Care Provided Care Provided: [facility] Medicine (4) CAD (coronary artery disease) Associated angina: angina presence unspecified Coronary Disease-Associated Artery/Lesion type: [place] artery [place] vs. transplanted heart: [place] heart Qualified Code(s): I25.10 - Atherosclerotic heart disease of [place] coronary artery without angina pectoris (5) GERD (gastroesophageal reflux disease) Esophagitis presence: without esophagitis Qualified Code(s): K21.9 - Gastro- esophageal reflux disease without esophagitis
[2023-05-14] MEDS ORDERED: DEXAMETHASONE SOD INJ 4 MG/ML VIAL IV STA (12:33)
[2023-05-14 12:40] LABS: Albumin Globulin Ratio 1.2 (0.9-2); Albumin Level 3.8 gm/dl (3.4-5.0); BUN Creatinine Ratio 27.3 (10-20); Bilirubin,Total 0.6 mg/dl (0.2-1.0); Calcium 9.3 mg/dl (8.6-10.3); Creatinine Clr Calc Pharmacy 58.2 ml/min; Est GFR (African American) 86.9 ml/min; Globulin 3.1 gm/dl (2.5-4.0); Potassium 4.3 mmol/L (3.5-5.1); Total Protein 6.9 gm/dl (6.0-8.3)
[2023-05-14 12:42] LABS: Basophils # (auto) 0.06 K/uL (0.00-0.20); Basophils % (auto) 0.9 %; Eosinophils # (auto) 0.08 K/uL (0.00-0.50); Eosinophils % (auto) 1.2 %; Hematocrit (blood only) 37.4 % (37.0-47.0); Hemoglobin 12.4 g/dl (12.0-16.0); Immature Granulocytes # (auto) 0.05 K/uL (0.01-0.20); Immature Granulocytes % (auto) 0.7 %; Lymphocytes # (auto) 1.85 K/uL (1.20-3.40); Lymphocytes % (auto) 26.6 %; Mean Corpuscular Hemoglobin 26.7 pg (25.0-34.0); Mean Corpuscular Hgb Conc 33.2 g/dL (32.0-36.0); Mean Corpuscular Volume 80.4 fL (80.0-100.0); Mean Platelet Volume 10.2 fL (9.4-12.4); Monocytes # (auto) 0.47 K/uL (0.11-0.59); Monocytes % (auto) 6.8 %; Neutrophils # (auto) 4.44 K/uL (1.40-6.50); Neutrophils % (auto) 63.8 %; Platelet Count 248 K/uL (130-400); RDW Coefficient of Variation 13.7 % (11.5-14.5); RDW Standard Deviation 39.8 fL (36.4-46.3); Red Blood Count 4.65 M/uL (4.20-5.40); White Blood Count 6.95 K/ul (4.8-10.8)
--- NOTE | 2023-05-14 12:46 | XRay Report ---
XR chest 1V portable CLINICAL HISTORY: Chest pain, nonspecific TECHNIQUE: Single frontal radiograph of the chest was obtained. Comparison: Comparison is made to chest radiograph 03/30/2023 FINDINGS: No lines and tubes are seen. The cardiomediastinal silhouette is normal. The lungs are clear. No evid ence of pleural effusion or pneumothorax. IMPRESSION: No acute chest disease. ACT 112: Negative or not required by law. Electronically signed by: Josh Lange M.D. 05/14/2023 12:45 PM
[2023-05-14 13:10] LABS: Troponin I High Sensitivity 5.5 pg/ml (0-14)
[2023-05-14] MEDS ORDERED: KETOROLAC TROMETHAMINE 15 MG/ML VIAL IV ONE (14:19)
[2023-05-14] MEDS ORDERED: MoRPHine SULFATE 4 MG/ML 1 ML CARP\\VIAL IV STA (14:19)
--- NOTE | 2023-05-14 14:34 | Ultrasound Report ---
ULTRASOUND LEFT UPPER EXTREMITY VENOUS CLINICAL HISTORY: Acute pain and swelling of the left upper extremity. COMPARISON STUDY: 03/25/2023. TECHNIQUE: Real-time, grayscale, and color Doppler sonography of the deep veins of the left upper ext remity is performed. Compression and augmentation were utilized. FINDINGS: There is no sonographic evidence of deep venous thrombosis identified in the left upper ext remity. The left internal jugular, axillary, and brachial veins are patent and normally compressible. Normal venous waveforms and augmentation are seen within the left subclavian vein. The cephalic and basilic veins are clear. The visualized radial and ulnar veins are patent. IMPRESSION: There is no sonographic evidence of deep venous thrombosis identified in the left upper e xtremity. ACT 112: Negative or not required by law. Electronically signed by: Jordan Vee M.D. 05/14/2023 2:32 PM
[2023-05-14] MEDS ORDERED: CARBOHYDRATES FOR HYPOGLYCEMIA PO PRN (16:43)
[2023-05-14] MEDS ORDERED: GLUCOSE 40% GEL 15 GM TUBE PO PRN (16:43)
[2023-05-14] MEDS ORDERED: GLUCAGON FOR INJ 1 MG VIAL SQ PRN (16:43)
[2023-05-14] MEDS ORDERED: KETOROLAC TROMETHAMINE 15 MG/ML VIAL IV PRN (16:43)
[2023-05-14] MEDS ORDERED: PHARMACY GLYCEMIC MGMT CONSULT PRN (16:43)
[2023-05-14] MEDS ORDERED: GLUCOSE 10 TAB/TUBE PO PRN (16:43)
[2023-05-14] MEDS ORDERED: DEXTROSE 50% 50 ML SYRINGE IV PRN (16:43)
[2023-05-14] MEDS: ACETAMINOPHEN 500 MG TAB PO SCH (17:26)
--- NOTE | 2023-05-14 17:29 | Magnetic Resonance Report ---
MR cervical spine wo con HISTORY: 78 years-old Female cervical radiculopathy b/l Acute neck pain with left upper extremity nu mbness. COMPARISON: 04/29/2023. TECHNIQUE: Multiplanar, multisequence MRI of the cervical spine was obtained without the use of IV co ntrast. FINDINGS: Partially empty sella incidentally noted. No acute fracture or subluxation. No marrow edema or marrow replacement is present. There is moderate multilevel disc space narrowing within the cervical spine. C2-C3: The central canal and neural foramen are patent. C3-C4: There is mild disc space narrowing with posterior disc osteophyte complex. This effaces the ve ntral thecal sac. There is mild central canal stenosis, AP dimension of the thecal sac measuring 9 mm . There is mild bilateral neural foraminal stenosis. C4-C5: There is moderate disc space narrowing with posterior disc osteophyte complex which effaces th e ventral thecal sac and results in mild central canal stenosis, AP dimension of the thecal sac measu ring 7 mm. There is severe right neural foraminal stenosis due to disc osteophyte complex and uncover tebral hypertrophy. There is mild left neural foraminal stenosis. C5-C6: There is mild disc space narrowing. Posterior disc osteophyte complex effaces the ventral thec al sac. There is mild central canal stenosis, AP dimension of the thecal sac measuring 8 mm. There is mild right and moderate left neural foraminal stenosis. C6-C7: There is mild posterior disc osteophyte complex. This effaces the ventral thecal sac. Central canal is mildly narrowed, AP dimension of the thecal sac measuring 8 mm. Neural foramen are patent. C7-T1: Central canal and neural foramen are patent. IMPRESSION: 1. No change compared to the study obtained on 04/29/2023. 2. Discogenic degeneration as above resulting in associated multilevel central canal and foraminal st enosis. 3. Normal signal of the cervical spinal cord. ACT 112: Negative or not required by law. The above report was generated using voice recognition software. It may contain grammatical, syntax o r spelling errors. Dictated: 05/14/2023 4:43 PM Transcribed: 05/14/2023 5:25 PM Mady [id number] Latha [id number] Electronically signed by: Jordan Vee M.D. 05/14/2023 5:27 PM
[2023-05-14] MEDS ORDERED: LANTUS PER UNIT CHARGE SQ ONE (17:30)
[2023-05-14] MEDS ORDERED: INSULIN ASPART PER UNIT CHARGE SC SCH ×2 (18:00→21:00)
[2023-05-14] MEDS: GABAPENTIN 100 MG CAP PO SCH (20:09)
[2023-05-14] MEDS: FAMOTIDINE 20 MG TAB PO SCH (20:09)
[2023-05-14] MEDS: PANTOprazole 40 MG TAB PO SCH (20:09)
[2023-05-14] MEDS: busPIRone 5 MG TAB PO SCH (20:10)
[2023-05-14] MEDS ORDERED: LANTUS PER UNIT CHARGE SC ONE (21:15)
[2023-05-15] MEDS: ACETAMINOPHEN 500 MG TAB PO SCH ×3 (00:19→17:21)
[2023-05-15] MEDS: INSULIN ASPART PER UNIT CHARGE SC SCH ×6 (00:23→21:11)
--- NOTE | 2023-05-15 06:06 | Pharmacy Report ---
Pharmacy Glycemic Short Note 2 - Date of Service May 15, 2023 - Glycemic Short BSG Results (Last 24 hours): 05/14/23 05/14/23 05/14/23 11:50 16:47 16:49 Glucose 296 H POC Glucose 332 H* 322 H* 05/14/23 05/14/23 05/15/23 20:22 20:35 00:09 Glucose POC Glucose 375 H* 360 H* 318 H* 05/15/23 04:05 Glucose POC Glucose 272 H OUTPATIENT ANTIDIABETIC REGIMEN: * Tresiba 30 units SQ qPM * Novolog 8 units SQ TID w/ meals * Metformin 1gm PO BID * HbA1c: 12.2% (10/06/22) -- updated A1c pending w/ AM labs ASSESSMENT: * Ms Rosas is a 78yo diabetic F admitted with cervical radiculopathy. Ortho has been consulted and will see pt this weekend. * Pt rec'd a dose of IV dexamethasone yesterday and is scheduled to receive another dose this morning. Expect steroid-induced hyperglycemia with DXM, which has been the case. * Extra dose of Lantus ordered last night. * Novolog parameters tightened to provide additional coverage. * Expect that pt will require additional insulin while steroids are on board. After steroids are cut, anticipate that insulin requirements will decrease again. * Pharmacy will continue to follow and adjust regimen as indicated. PLAN FOR INPATIENT GLYCEMIC CONTROL: * Hold outpatient oral diabetes medications * Basal insulin * Lantus 30 units SQ last evening, plus 15 units given at bedtime for elevat ed BSGs. * Bolus insulin * NovoLog per scale ACHS or Q6hrs while NPO * Goal Range: Low 120 mg/dL - High 160 mg/dL * Correction Factor: 20 mg/dL/unit * Nutritional / Prandial insulin per carb ratio of 1 unit per 6 grams CHO consumed
[2023-05-15 07:42] LABS: Estimated Average Glucose 283 mg/dl; Hemoglobin A1C 11.5 % (4.5-5.6)
[2023-05-15] MEDS: PANTOprazole 40 MG TAB PO SCH ×2 (08:36→21:09)
[2023-05-15] MEDS: DULoxetine HCL 30 MG CAP PO SCH (08:36)
[2023-05-15] MEDS: busPIRone 5 MG TAB PO SCH ×3 (08:36→21:09)
[2023-05-15] MEDS: EZETIMIBE 10 MG TAB PO SCH (08:37)
[2023-05-15] MEDS: FAMOTIDINE 20 MG TAB PO SCH ×2 (08:37→21:09)
[2023-05-15] MEDS: lisinopril 10 MG TAB PO SCH (08:37)
[2023-05-15] MEDS: ASPIRIN 81 MG ECTAB PO SCH (08:37)
[2023-05-15] MEDS: ROSUVASTATIN CALCIUM 20 MG TAB PO SCH (08:38)
[2023-05-15] MEDS: ISOSORBIDE MONO EXTENDED REL 30 MG TABCR PO SCH (08:38)
[2023-05-15] MEDS: UMECLIDINIUM/VILANTEROL 62.5/25MCG 7 PUFFS/INHALER INH SCH (08:42)
[2023-05-15] MEDS: FLUTICASONE FUROATE 100MCG 14 PUFFS/INHALER INH SCH (08:42)
[2023-05-15] MEDS: METOPROLOL SUCC 50MG EXT REL TAB PO SCH (08:42)
[2023-05-15] MEDS ORDERED: DEXAMETHASONE SOD INJ 4 MG/ML VIAL IV ONE (09:00)
[2023-05-15] MEDS ORDERED: dexAMETHasone 8 MG in SYRINGE 0 ML IV ONE (09:00)
[2023-05-15] MEDS ORDERED: LANTUS PER UNIT CHARGE SC ONE (10:00)
--- NOTE | 2023-05-15 10:37 | Orthopedic Consultation ---
Date of Consultation May 15, 2023 Assessment & Plan (1) Cervical radiculopathy: Update MRI cervical spine from yesterday continues to demonstrate significant multilevel spondylosis with varying degrees of neuroforaminal stenosis most impressive at C4-C5 on the right. My concern is her presentation is not entirely consistent with cervical stenosis and radiculopathy. Is reasonable to pursue inflammatory disease work-up. We will also obtain MRI lumbar spine to help determine her limitations with ambulation and leg function. Further conditions upon review. History of Present Illness Reason for Consultation: Neck and arm pain Attending Physician: Starla Velázquez MD History of Present Illness This is a very pleasant 78-year-old female who presents with fairly significant neck and bilateral arm pain. She feels the left arm is worse than the right. She is right-hand dominant. She notes several weeks of discomfort and swelling particular in the left lower arm and hand. She has limited finger flexion secondary to swelling. She also states for the past year she said use a walker to ambulate secondary to back and leg pain. She denies any specific trauma fall or event related to this pain. Allergies Allergy/AdvReac Type Severity Reaction Status Date / Time cephalexin Allergy Intermediate Rash and Verified 05/04/23 08:54 itchiness Cephalosporins Allergy Intermediate Rash and Verified 05/04/23 08:54 itchiness Sulfa (Sulfonamide Allergy Intermediate Hives Verified 05/04/23 08:54 Antibiotics) Home Medications Medication Instructions Recorded Confirmed Type linaclotide 145 mcg capsule 145 mcg PO QAM PRN Constipation 04/05/19 05/14/23 History (Linzess) aspirin 81 mg tablet,delayed 81 mg PO QAM 10/24/21 05/14/23 History release albuterol sulfate 90 mcg/actuation 2 inha inhalation QID PRN 01/10/22 05/14/23 Rx aerosol inhaler shortness of breath or wheezing #1 g fluticasone fur. 100 mcg-umeclid 1 inh inhalation DAILY #28 ea 02/11/22 05/14/23 Rx 62.5 mcg-vilant 25 mcg inhalat.powder (Trelegy Ellipta) alirocumab 75 mg/mL subcutaneous 75 mg subcut Q14D #2 mL 05/21/22 05/14/23 Rx pen injector (Praluent Pen) gabapentin 100 mg capsule 100 mg PO HS #90 caps 09/17/22 05/14/23 Rx duloxetine 30 mg capsule,delayed 30 mg PO QAM #90 caps 09/18/22 05/14/23 Rx release ezetimibe 10 mg tablet (Zetia) 10 mg PO QAM #90 tabs 09/18/22 05/14/23 Rx metformin 500 mg tablet 1,000 mg PO BID #360 tabs 09/18/22 05/14/23 Rx metoprolol succinate 100 mg 100 mg PO QAM #90 tabs 09/18/22 05/14/23 Rx tablet,extended release 24 hr ondansetron HCl 4 mg tablet 4 mg PO Q8H PRN nausea and 09/18/22 05/14/23 Rx vomiting #30 tabs pantoprazole 40 mg tablet,delayed 40 mg PO BID #180 tabs 09/18/22 05/14/23 Rx release rosuvastatin 40 mg tablet 40 mg PO QAM #90 tabs 09/18/22 05/14/23 Rx meclizine 25 mg tablet 25 mg PO BID PRN dizziness #30 tabs 10/05/22 05/14/23 Rx nitroglycerin 0.4 mg sublingual 0.4 mg sublingual UD PRN Chest 11/06/22 05/14/23 Rx tablet (Nitrostat) Pain #1 btl ergocalciferol (vitamin D2) 1,250 50,000 unit PO Q7D@0900 #4 caps 01/28/23 05/14/23 Rx mcg (50,000 unit) capsule diclofenac sodium 1 % topical gel 2 g topical QID PRN Pain #100 grams 02/04/23 05/14/23 Rx (Arthritis Pain (diclofenac)) folic acid 1 mg tablet See Rx Instructions .Route 02/23/23 05/14/23 Rx .COMPLEX #30 tabs Vitamin B 12 Cypo Value 200+20 1 tab PO DAILY 03/25/23 05/14/23 History amoxicillin 875 mg-potassium 1 tab PO BID #14 tabs 03/25/23 05/14/23 Rx clavulanate 125 mg tablet buspirone 10 mg tablet 10 mg PO TID 03/25/23 05/14/23 History famotidine 20 mg tablet 20 mg PO BID 03/25/23 05/14/23 History isosorbide mononitrate 30 mg 30 mg PO QAM 03/25/23 05/14/23 History tablet,extended release 24 hr insulin aspart U-100 100 unit/mL 8 unit (0.08 mL) subcut TID #15 mL 03/26/23 05/14/23 Rx (3 mL) subcutaneous pen (Novolog FlexPen U-100 Insulin aspart) insulin degludec 100 unit/mL (3 30 unit (0.3 mL) subcut QPM #15 mL 03/26/23 05/14/23 Rx mL) subcutaneous pen (Tresiba FlexTouch U-100 insulin) acetaminophen 300 mg-codeine 30 mg 1 tab PO Q8H PRN pain #3 tabs 03/30/23 05/14/23 Rx tablet lidocaine 5 % topical patch 1 patch topical DAILY PRN pain #15 03/30/23 05/14/23 Rx (Lidoderm) ea metaxalone 400 mg tablet 400 mg PO HS PRN muscle pain #10 04/06/23 05/14/23 Rx tabs tramadol 50 mg tablet 50 mg PO Q6H PRN pain #20 tabs 04/23/23 05/14/23 Rx tramadol 50 mg tablet 50 mg PO HS PRN pain #20 tabs 05/05/23 05/14/23 Rx lisinopril 10 mg tablet 10 mg PO QAM 05/14/23 05/14/23 History Patient History Medical History Abrasion Accelerated essential hypertension Acute non-ST elevation myocardial infarction (NSTEMI) Asymptomatic bacteriuria Back pain [place]ke[place] esophagus CAD (coronary artery disease) Cervical pain (neck) Chest pain Chest pain Chronic pain syndrome Depression Diabetes mellitus, type 2 Diabetic gastroparesis Diabetic peripheral neuropathy Dyslipidemia Elevated troponin Elevated troponin Fall Folic acid deficiency GERD without esophagitis History of COVID-19 Hypotension IBS (irritable bowel syndrome) Lumbar spondylosis Myocardial Infarction Type 2 diabetes mellitus with chronic kidney disease Vitamin B12 deficiency Surgical History History of cardiac cath History of cataract surgery History of cholecystectomy History of colonoscopy with polypectomy History of esophageal dilatation History of esophagogastroduodenoscopy (EGD) History of lumbar spinal fusion History of tooth extraction History of total hysterectomy with bilateral salpingo-oophorectomy (BSO) History of total right knee replacement (TKR) S/P coronary artery stent placement Status post trigger finger release Family History Brother Myocardial infarction Anxiety Heart disease Hypertension Cancer Sister Family history of reaction to anesthesia difficulty waking Hypertension Heart disease Myocardial infarction Anxiety Cancer Diabetes Father Anxiety Heart disease Hypertension Mother Anxiety Hypertension Heart disease Unknown Cancer skin, GI Denies family history of Ovarian cancer Prostate cancer Breast cancer Colorectal cancer Stroke Social History Smoking Status: Never smoker Tobacco Type: Cigarettes Age Started Using Tobacco: 18; Age Quit Using Tobacco: 57; Second Hand Exposure: No; Do You Dip or Chew Tobacco: No; Hx Alcohol Use: No Hx Substance Use: No Preferred Language: [place] Communication Ability: Effective Visual Impairment: Limited Hearing Ability: Normal 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: No Beliefs That Will Affect Care: None marital status: / Current Living Situation: Alone Current Living Situation Comment: apartment building current occupational status: retired and disabled How many Children do You have: 3 Other Information That Helps Us Care for You: No Feels Safe at Home: No Is there a partner from a previous relationship who is making you feel unsafe now?: No Any Concerns about Your Family Situation: No Would You Like to Speak to Someone About Your Situation: No Safety Concerns: Feels Safe At This Time Childhood Exposure to Second-Hand Smoke: No caffeine: Yes (drinks coffee, diet pepsi occasionally ) Dental Care, Regularly: No Physical Activity Frequency: Does not Exercise Seatbelt Use: always Sunscreen Use: No Assistive Devices: Cane, Denture - Upper, Glasses and Walker Physical Exam Physical Exam: On exam patient is in bed her daughter is at the bedside. She does have appreciable swelling to the left wrist and dorsum of her hand. She has difficulty with grasp secondary to lack of range of motion. She is exquisitely tender to palpation of the left wrist and compression of the MCP joints. Sensory is intact. I do not appreciate a Ivon sign. Strength is a 4/5 to detailed testing without gross discomfort. She exhibits no Spurling sign or Lhermitte's phenomenon. She is neurologic intact with plantarflexion dorsiflexion quadriceps to lower extremities. Results & Data Vital Signs (Past 12 Hours) Vital Signs Temp Pulse Resp BP Pulse Ox O2 Del Method 05/15/23 08:20 66 18 134/76 97 Room Air 05/15/23 07:08 36.6 C 81 16 144/85 H 98 Room Air
--- NOTE | 2023-05-15 10:42 | Pharmacy Report ---
Pharmacy Glycemic Short Note 2 - Date of Service May 15, 2023 - Glycemic Short BSG Results (Last 24 hours): 05/14/23 05/14/23 05/14/23 11:50 16:47 16:49 Glucose 296 H POC Glucose 332 H* 322 H* 05/14/23 05/14/23 05/15/23 20:22 20:35 00:09 Glucose POC Glucose 375 H* 360 H* 318 H* 05/15/23 05/15/23 04:05 07:54 Glucose POC Glucose 272 H 134 H OUTPATIENT ANTIDIABETIC REGIMEN: * Tresiba 30 units SQ qPM * Novolog 8 units SQ TID w/ meals * Metformin 1gm PO BID * HbA1c: 11.5% 05/15/23 ASSESSMENT: 05/15 * Patient's blood sugar improved this morning to goal, 134mg/dl, ordered one additional dose of Dexamethasone 8mg IV today, will give basal this morning to cover, and then resume home dose of basal tonight. Patient currently NPO. * Tighten CF/CR, loosen as steroid effects wear off. * Tighten goal range. 05/14 * Ms Rosas is a 78yo diabetic F admitted with cervical radiculopathy. Ortho has been consulted and will see pt this weekend. * Pt rec'd a dose of IV dexamethasone yesterday and is scheduled to receive another dose this morning. Expect steroid-induced hyperglycemia with DXM, which has been the case. * Extra dose of Lantus ordered last night. * Novolog parameters tightened to provide additional coverage. * Expect that pt will require additional insulin while steroids are on board. After steroids are cut, anticipate that insulin requirements will decrease again. * Pharmacy will continue to follow and adjust regimen as indicated. PLAN FOR INPATIENT GLYCEMIC CONTROL: * Hold outpatient oral diabetes medications * Basal insulin * Lantus 15 units SQ x 1 dose now, then 30 units HS (15 units for BSG < 110mg/dl) * Bolus insulin * NovoLog per scale ACHS or Q6hrs while NPO * Goal Range: Low 110 mg/dL - High 140 mg/dL * Correction Factor: 15 mg/dL/unit * Nutritional / Prandial insulin per carb ratio of 1 unit per 5 grams CHO consumed
--- NOTE | 2023-05-15 10:56 | Hospitalist Progress Note ---
Date of Service May 15, 2023 Assessment & Plan (1) Cervical radiculopathy: Plan: 78yo Female with PMH cervical radiculopathy anxiety IBS GERD, poorly managed DM2 HTN CAD CKD3 anemia, here for concerns worsened b/l arm pain and swelling. Cervical radiculopathy b/l -MRI cervical w/o contrast showed degenerative changes and multilevel central canal and foraminal stenosis -US UE negative for DVT -Ordered dexamethasone 8mg IV once -Evaluated by Spine surgery -Will like to r/o inflammatory arthritis in view of swelling of the hands -Will obtain CCP, ESR, CRP HTN, CAD -continue metoprolol, isosorbide mononitrate, ASA HLD -continue ezetimibe, rosuvastatin GERD -continue famotidine protonix Depression -continue buspirone, duloxetine DM2 -ordered SSI -hold home metformin -consult glycemic pharmacy FENa: heart healthy carb consistent, NPO midnight Code Status: DNR/DNI DVT PPX: SCDs PT/OT: ordered Dispo: med/surg (2) Anxiety: (3) IBS (irritable bowel syndrome): (4) CAD (coronary artery disease): (5) GERD (gastroesophageal reflux disease): (6) Uncontrolled type 2 diabetes mellitus with neurologic complication, with long-term current use of insulin: (7) Diabetic gastroparesis: (8) Dyslipidemia: (9) HTN (hypertension): (10) CKD (chronic kidney disease), stage III: Plan continue hospitalization, awaiting some labs Admission and Anticipated Discharge Date Admission Date: May 14, 2023 Subjective patient seen and examined, complaining of inability to clench her left palm and some swelling Review of Systems Review of Systems: All systems reviewed are negative, apart from the ones contained in the history. Physical Exam Physical Exam: The patient is awake, alert and oriented 3, well developed and well nourished, normocephalic and atraumatic, lying in bed and in no acute distress. HEENT--PERRL, EOMI, mucous membranes and oropharynx mildly dry Neck--supple. No JVD. No bruits. Thyroid normal, trachea midline, no adenopathy. Heart--normal S1 and S2. No murmurs, rubs or gallops. Lungs--clear bilaterally, no respiratory distress, no accessory muscle use. Abdomen--normal bowel sounds and soft. Mild epigastric and left sided abdominal pain Extremities--no cyanosis or clubbing. No edema. Dermatologic--normal skin turgor, normal color, no abnormal lymph nodes, no rash. Neurologic--cranial nerves II through XII grossly intact. Rheumatologic--normal range of motion. Psychiatric--normal affect. Results & Data Results & Data Vital Signs (Past 12 Hours) Vital Signs Temp Pulse Resp BP Pulse Ox O2 Del Method 05/15/23 08:20 66 18 134/76 97 Room Air 05/15/23 07:08 97.9 F 81 16 144/85 H 98 Room Air PG Care Time/CCT Total # of Minutes Spent Total Time Spent with Patient: Total time spent is greater than 50% in coordination of care (as documented) at patient's floor/unit and/or counseling patient: Coding Level of Care Code 24974 SUB INP/OBS CARE 2/35MIN Diagnoses Cervical radiculopathy M54.12 Anxiety F41.9 IBS (irritable bowel syndrome) K58.9 CAD (coronary artery disease) I25.10 Coronary Disease-Associated Artery/Lesion type: [place] artery [place] vs. transplanted heart: [place] heart Associated angina: angina presence unspecified GERD (gastroesophageal reflux disease) K21.9 Esophagitis presence: without esophagitis Uncontrolled type 2 diabetes mellitus with neurologic complication, with long- term current use of insulin E11.49; E11.65; Z79.4 Diabetic gastroparesis E11.43; K31.84 Dyslipidemia E78.5 HTN (hypertension) I10 CKD (chronic kidney disease), stage III N18.30 Time Spent (min) 35 (4) CAD (coronary artery disease) Coronary Disease-Associated Artery/Lesion type: [place] artery [place] vs. transplanted heart: [place] heart Associated angina: angina presence unspecified Qualified Code(s): I25.10 - Atherosclerotic heart disease of [place] coronary artery without angina pectoris (5) GERD (gastroesophageal reflux disease) Esophagitis presence: without esophagitis Qualified Code(s): K21.9 - Gastro- esophageal reflux disease without esophagitis
--- NOTE | 2023-05-15 11:54 | Magnetic Resonance Report ---
MRI OF THE LUMBAR SPINE WITHOUT CONTRAST CLINICAL HISTORY: Back and leg pain. COMPARISON STUDY: Lumbar spine MRI November 06, 2020. Lumbar spine CT October 24, 2021. TECHNIQUE: Utilizing a 1.5 [place] magnet and dedicated coil, multiplanar, multiecho imaging of the [facility] spine was performed without IV contrast. FINDINGS: For purposes of numbering on this exam, the L4-L5 disc space is assigned to axial image 27 of 30. The re is no intracanalicular mass or fluid collection. The conus terminates at the upper L1 level. There is presacral edema, a nonspecific finding. Paravertebral soft tissues are unremarkable. There is sli ght anterolisthesis (4 mm) of L4 and L5. Otherwise, alignment is anatomic. There is no lumbar spine f racture. No suspicious marrow replacement is present. L1-2: There is mild disc bulge with moderate facet arthrosis. The central canal and neural foramen ar e patent. L2-3: There is moderate facet arthrosis. There is a tiny left paracentral disc protrusion. There is m ild narrowing of the left lateral recess. There is no significant central canal stenosis. Neural fora men are patent. L3-4: Moderate facet arthrosis is present. Central canal and neural foramen are patent. L4-5: Left hemilaminectomy is noted. There is facet arthrosis with disc bulge. Moderate is central ca nal narrowing is noted. Patent AP diameter canal is 5.2 mm. There is moderate narrowing of the latera l recesses and the neural foramen, left greater than right. L5-S1: There is moderate facet arthrosis. Central canal and neural foramen are patent. IMPRESSION: 1. Status post left L4-L5 hemilaminectomy. 2. Moderate central canal stenosis at L4-L5 due to facet arthrosis which results in grade one anterol isthesis. Ligamentous hypertrophy with disc bulge. Moderate narrowing of the lateral recesses and jonathan ateral neural foramen at this level. Otherwise, patent central canal. 3. Overall, moderate multilevel degenerative changes within the lumbar spine. 4. No lumbar spine fractures. ACT 112: Negative or not required by law. Electronically signed by: Jimmy Chavarria M.D. 05/15/2023 11:51 AM
[2023-05-15] MEDS: dexAMETHasone 4 MG TAB PO SCH ×2 (13:42→21:09)
[2023-05-15] MEDS ORDERED: NON-FORMULARY MEDICATION (Insulin Degludec [Tresiba Flextouch U-100] 100 unit/mL (3 mL) in SQ SCH (21:00)
[2023-05-15] MEDS ORDERED: NON-FORMULARY MEDICATION (Insulin Aspart U-100 [Novolog Flexpen U-100 Insulin] 100 unit/mL SQ SCH (21:00)
[2023-05-15] MEDS ORDERED: LANTUS PER UNIT CHARGE SQ SCH (21:00)
[2023-05-15] MEDS: GABAPENTIN 100 MG CAP PO SCH (21:09)
--- NOTE | 2023-05-15 22:28 | Electrocardiogram Report ---
Test Reason : Blood Pressure : / mmHG Vent. Rate : 091 BPM Atrial Rate : 091 BPM P-R Int : 154 ms QRS Dur : 070 ms QT Int : 364 ms P-R-T Axes : 069 036 072 degrees QTc Int : 447 ms Normal sinus rhythm Normal ECG When compared with ECG of 30-MAR-2023 10:55, Nonspecific T wave abnormality, improved in Anterior leads Confirmed by Deon Gonzalez ([id number]) on 05/15/2023 10:28:18 PM Referred By: REFERRED SELF Confirmed By:Deon Gonzalez
[2023-05-16] MEDS: ACETAMINOPHEN 500 MG TAB PO SCH ×3 (01:47→16:44)
[2023-05-16] MEDS: INSULIN ASPART PER UNIT CHARGE SC SCH ×6 (01:47→21:53)
[2023-05-16 07:05] LABS: Hematocrit (blood only) 33.2 % (37.0-47.0); Hemoglobin 11.4 g/dl (12.0-16.0); Mean Corpuscular Hemoglobin 27.1 pg (25.0-34.0); Mean Corpuscular Hgb Conc 34.3 g/dL (32.0-36.0); Mean Corpuscular Volume 78.9 fL (80.0-100.0); Mean Platelet Volume 10.4 fL (9.4-12.4); Platelet Count 269 K/uL (130-400); RDW Coefficient of Variation 13.8 % (11.5-14.5); RDW Standard Deviation 39.2 fL (36.4-46.3); Red Blood Count 4.21 M/uL (4.20-5.40); White Blood Count 9.04 K/ul (4.8-10.8)
[2023-05-16 07:19] LABS: BUN Creatinine Ratio 40.7 (10-20); Calcium 8.5 mg/dl (8.6-10.3); Creatinine Clr Calc Pharmacy 49.2 ml/min; Est GFR (Non-African American) 61.3 ml/min; Potassium 4.1 mmol/L (3.5-5.1)
[2023-05-16] MEDS ORDERED: LANTUS PER UNIT CHARGE SQ SCH ×2 (09:00→21:00)
[2023-05-16] MEDS: lisinopril 10 MG TAB PO SCH (09:15)
[2023-05-16] MEDS: DULoxetine HCL 30 MG CAP PO SCH (09:15)
[2023-05-16] MEDS: EZETIMIBE 10 MG TAB PO SCH (09:16)
[2023-05-16] MEDS: ASPIRIN 81 MG ECTAB PO SCH (09:16)
[2023-05-16] MEDS: ROSUVASTATIN CALCIUM 20 MG TAB PO SCH (09:16)
[2023-05-16] MEDS: METOPROLOL SUCC 50MG EXT REL TAB PO SCH (09:16)
[2023-05-16] MEDS: FAMOTIDINE 20 MG TAB PO SCH ×2 (09:16→21:42)
[2023-05-16] MEDS: dexAMETHasone 4 MG TAB PO SCH ×3 (09:17→21:41)
[2023-05-16] MEDS: FLUTICASONE FUROATE 100MCG 14 PUFFS/INHALER INH SCH (09:17)
[2023-05-16] MEDS: busPIRone 5 MG TAB PO SCH ×3 (09:17→21:42)
[2023-05-16] MEDS: ISOSORBIDE MONO EXTENDED REL 30 MG TABCR PO SCH (09:19)
--- NOTE | 2023-05-16 09:39 | Pharmacy Report ---
Pharmacy Glycemic Short Note 2 - Date of Service May 16, 2023 - Glycemic Short BSG Results (Last 24 hours): 05/15/23 05/15/23 05/15/23 11:40 16:50 16:51 Glucose POC Glucose 180 H 333 H* 334 H* 05/15/23 05/16/23 05/16/23 20:49 00:52 05:04 Glucose POC Glucose 282 H 97 220 H 05/16/23 05/16/23 06:39 07:54 Glucose 251 H POC Glucose 229 H OUTPATIENT ANTIDIABETIC REGIMEN: * Tresiba 30 units SQ qPM * Novolog 8 units SQ TID w/ meals * Metformin 1gm PO BID * HbA1c: 11.5% 05/15/23 ASSESSMENT: 05/16 * Patient received 95 units of insulin yesterday, 45 units basal. * Blood sugars elevated most of yesterday despite increase in basal and tightening CF/CR due to steroids, patient received Dexamethasone 8mg IV, then started 4mg PO TID. * Further increase basal and tighten CR. 05/15 * Patient's blood sugar improved this morning to goal, 134mg/dl, ordered one additional dose of Dexamethasone 8mg IV today, will give basal this morning to cover, and then resume home dose of basal tonight. Patient currently NPO. * Tighten CF/CR, loosen as steroid effects wear off. * Tighten goal range. 05/14 * Ms Rosas is a 78yo diabetic F admitted with cervical radiculopathy. Ortho has been consulted and will see pt this weekend. * Pt rec'd a dose of IV dexamethasone yesterday and is scheduled to receive another dose this morning. Expect steroid-induced hyperglycemia with DXM, which has been the case. * Extra dose of Lantus ordered last night. * Novolog parameters tightened to provide additional coverage. * Expect that pt will require additional insulin while steroids are on board. After steroids are cut, anticipate that insulin requirements will decrease again. * Pharmacy will continue to follow and adjust regimen as indicated. PLAN FOR INPATIENT GLYCEMIC CONTROL: * Hold outpatient diabetes medications * Basal insulin - increase * Lantus 30 units SQ BID * Bolus insulin - tighten CR * NovoLog per scale ACHS or Q6hrs while NPO * Goal Range: Low 110 mg/dL - High 140 mg/dL * Correction Factor: 15 mg/dL/unit * Nutritional / Prandial insulin per carb ratio of 1 unit per 3.5 grams CHO consumed
[2023-05-16] MEDS: PANTOprazole 40 MG TAB PO SCH ×2 (09:41→21:41)
[2023-05-16] MEDS: UMECLIDINIUM/VILANTEROL 62.5/25MCG 7 PUFFS/INHALER INH SCH (09:42)
--- NOTE | 2023-05-16 11:59 | Hospitalist Progress Note ---
Date of Service May 16, 2023 Assessment & Plan (1) Cervical radiculopathy: Plan: 78yo Female with PMH cervical radiculopathy anxiety IBS GERD, poorly managed DM2 HTN CAD CKD3 anemia, here for concerns worsened b/l arm pain and swelling. Cervical radiculopathy b/l -MRI cervical w/o contrast showed degenerative changes and multilevel central canal and foraminal stenosis -US UE negative for DVT -Ordered dexamethasone 8mg IV once, and PO 4mg TID -Evaluated by Spine surgery -Will like to r/o inflammatory arthritis in view of swelling of the hands -CCP is pending, CRP slightly elevated HTN, CAD -continue metoprolol, isosorbide mononitrate, ASA HLD -continue ezetimibe, rosuvastatin GERD -continue famotidine protonix Depression -continue buspirone, duloxetine DM2 -Due to steroids, glucose control not optimal -Will increase Glargine to 35 units BID -ordered SSI -hold home metformin -consult glycemic pharmacy FENa: heart healthy carb consistent, Code Status: DNR/DNI DVT PPX: SCDs PT/OT: ordered Dispo: med/surg (2) Anxiety: (3) IBS (irritable bowel syndrome): (4) CAD (coronary artery disease): (5) GERD (gastroesophageal reflux disease): (6) Uncontrolled type 2 diabetes mellitus with neurologic complication, with long-term current use of insulin: (7) Diabetic gastroparesis: (8) Dyslipidemia: (9) HTN (hypertension): (10) CKD (chronic kidney disease), stage III: Plan continue hospitalization, awaiting some labs Admission and Anticipated Discharge Date Admission Date: May 14, 2023 Subjective patient seen and examined, says her pain and swelling are better Review of Systems Review of Systems: All systems reviewed are negative, apart from the ones contained in the history. Physical Exam Physical Exam: The patient is awake, alert and oriented 3, well developed and well nourished, normocephalic and atraumatic, lying in bed and in no acute distress. HEENT--PERRL, EOMI, mucous membranes and oropharynx mildly dry Neck--supple. No JVD. No bruits. Thyroid normal, trachea midline, no adenopathy. Heart--normal S1 and S2. No murmurs, rubs or gallops. Lungs--clear bilaterally, no respiratory distress, no accessory muscle use. Abdomen--normal bowel sounds and soft. Mild epigastric and left sided abdominal pain Extremities--no cyanosis or clubbing. No edema. Dermatologic--normal skin turgor, normal color, no abnormal lymph nodes, no rash. Neurologic--cranial nerves II through XII grossly intact. Rheumatologic--normal range of motion. Psychiatric--normal affect. Results & Data Results & Data Vital Signs (Past 12 Hours) Vital Signs Temp Pulse Resp BP Pulse Ox O2 Del Method 05/16/23 09:10 71 20 128/65 97 Room Air 05/16/23 08:14 98.2 F 80 16 146/74 H 97 Room Air PG Care Time/CCT Total # of Minutes Spent Total Time Spent with Patient: Total time spent is greater than 50% in coordination of care (as documented) at patient's floor/unit and/or counseling patient: Coding Level of Care Code 75738 SUB INP/OBS CARE 235MIN Diagnoses Cervical radiculopathy M54.12 Anxiety F41.9 IBS (irritable bowel syndrome) K58.9 CAD (coronary artery disease) I25.10 Coronary Disease-Associated Artery/Lesion type: [place] artery [place] vs. transplanted heart: [place] heart Associated angina: angina presence unspecified GERD (gastroesophageal reflux disease) K21.9 Esophagitis presence: without esophagitis Uncontrolled type 2 diabetes mellitus with neurologic complication, with long- term current use of insulin E11.49; E11.65; Z79.4 Diabetic gastroparesis E11.43; K31.84 Dyslipidemia E78.5 HTN (hypertension) I10 CKD (chronic kidney disease), stage III N18.30 Time Spent (min) 35 (4) CAD (coronary artery disease) Coronary Disease-Associated Artery/Lesion type: [place] artery [place] vs. transplanted heart: [place] heart Associated angina: angina presence unspecified Qualified Code(s): I25.10 - Atherosclerotic heart disease of [place] coronary artery without angina pectoris (5) GERD (gastroesophageal reflux disease) Esophagitis presence: without esophagitis Qualified Code(s): K21.9 - Gastro- esophageal reflux disease without esophagitis
[2023-05-16] MEDS: GABAPENTIN 100 MG CAP PO SCH (21:41)
[2023-05-16] MEDS: LANTUS PER UNIT CHARGE SQ SCH (22:16)
[2023-05-17] MEDS: ACETAMINOPHEN 500 MG TAB PO SCH ×3 (00:48→16:21)
[2023-05-17 07:26] LABS: Hematocrit (blood only) 32.6 % (37.0-47.0); Hemoglobin 11.2 g/dl (12.0-16.0); Mean Corpuscular Hemoglobin 27.1 pg (25.0-34.0); Mean Corpuscular Hgb Conc 34.4 g/dL (32.0-36.0); Mean Corpuscular Volume 78.9 fL (80.0-100.0); Mean Platelet Volume 10.4 fL (9.4-12.4); Platelet Count 256 K/uL (130-400); RDW Coefficient of Variation 14.1 % (11.5-14.5); RDW Standard Deviation 40.6 fL (36.4-46.3); Red Blood Count 4.13 M/uL (4.20-5.40); White Blood Count 7.68 K/ul (4.8-10.8)
[2023-05-17 07:47] LABS: BUN Creatinine Ratio 34.9 (10-20); Calcium 8.2 mg/dl (8.6-10.3); Creatinine Clr Calc Pharmacy 52.1 ml/min; Est GFR (African American) 76.1 ml/min; Est GFR (Non-African American) 65.6 ml/min; Potassium 4.1 mmol/L (3.5-5.1)
[2023-05-17] MEDS: ROSUVASTATIN CALCIUM 20 MG TAB PO SCH (08:19)
[2023-05-17] MEDS: FAMOTIDINE 20 MG TAB PO SCH ×2 (08:20→21:29)
[2023-05-17] MEDS: busPIRone 5 MG TAB PO SCH ×3 (08:20→21:28)
[2023-05-17] MEDS: DULoxetine HCL 30 MG CAP PO SCH (08:20)
[2023-05-17] MEDS: PANTOprazole 40 MG TAB PO SCH ×2 (08:20→21:29)
[2023-05-17] MEDS: FLUTICASONE FUROATE 100MCG 14 PUFFS/INHALER INH SCH (08:21)
[2023-05-17] MEDS: ASPIRIN 81 MG ECTAB PO SCH (08:21)
[2023-05-17] MEDS: dexAMETHasone 4 MG TAB PO SCH ×3 (08:21→21:28)
[2023-05-17] MEDS: lisinopril 10 MG TAB PO SCH (08:22)
[2023-05-17] MEDS: METOPROLOL SUCC 50MG EXT REL TAB PO SCH (08:22)
[2023-05-17] MEDS: UMECLIDINIUM/VILANTEROL 62.5/25MCG 7 PUFFS/INHALER INH SCH (08:22)
[2023-05-17] MEDS: ISOSORBIDE MONO EXTENDED REL 30 MG TABCR PO SCH (08:23)
[2023-05-17] MEDS: EZETIMIBE 10 MG TAB PO SCH (08:23)
[2023-05-17] MEDS: INSULIN ASPART PER UNIT CHARGE SC SCH ×4 (09:25→21:31)
[2023-05-17] MEDS: LANTUS PER UNIT CHARGE SQ SCH ×2 (09:26→21:31)
--- NOTE | 2023-05-17 11:43 | Hospitalist Progress Note ---
Date of Service May 17, 2023 Assessment & Plan (1) Cervical radiculopathy: Plan: 78yo Female with PMH cervical radiculopathy anxiety IBS GERD, poorly managed DM2 HTN CAD CKD3 anemia, here for concerns worsened b/l arm pain and swelling. Cervical radiculopathy b/l -MRI cervical w/o contrast showed degenerative changes and multilevel central canal and foraminal stenosis -US UE negative for DVT -Ordered dexamethasone 8mg IV once, and PO 4mg TID -Evaluated by Spine surgery -Will like to r/o inflammatory arthritis in view of swelling of the hands -CCP is pending, CRP slightly elevated, ESR is normal -However, patient says now able to clench her fist -Await final recs from spine surgery HTN, CAD -continue metoprolol, isosorbide mononitrate, ASA HLD -continue ezetimibe, rosuvastatin GERD -continue famotidine protonix Depression -continue buspirone, duloxetine DM2 -Due to steroids, glucose control not optimal -Will increase Glargine to 30 units BID -ordered SSI -hold home metformin -consult glycemic pharmacy FENa: heart healthy carb consistent, Code Status: DNR/DNI DVT PPX: SCDs PT/OT: ordered Dispo: med/surg (2) Anxiety: (3) IBS (irritable bowel syndrome): (4) CAD (coronary artery disease): (5) GERD (gastroesophageal reflux disease): (6) Uncontrolled type 2 diabetes mellitus with neurologic complication, with long-term current use of insulin: (7) Diabetic gastroparesis: (8) Dyslipidemia: (9) HTN (hypertension): (10) CKD (chronic kidney disease), stage III: Plan continue hospitalization, awaiting some labs Admission and Anticipated Discharge Date Admission Date: May 14, 2023 Subjective patient seen and examined, says her pain and swelling are better, now able to clench her fist Review of Systems Review of Systems: All systems reviewed are negative, apart from the ones contained in the history. Physical Exam Physical Exam: The patient is awake, alert and oriented 3, well developed and well nourished, normocephalic and atraumatic, lying in bed and in no acute distress. HEENT--PERRL, EOMI, mucous membranes and oropharynx mildly dry Neck--supple. No JVD. No bruits. Thyroid normal, trachea midline, no adenopathy. Heart--normal S1 and S2. No murmurs, rubs or gallops. Lungs--clear bilaterally, no respiratory distress, no accessory muscle use. Abdomen--normal bowel sounds and soft. Mild epigastric and left sided abdominal pain Extremities--no cyanosis or clubbing. No edema. Dermatologic--normal skin turgor, normal color, no abnormal lymph nodes, no rash. Neurologic--cranial nerves II through XII grossly intact. Rheumatologic--normal range of motion. Psychiatric--normal affect. Results & Data Results & Data Vital Signs (Past 12 Hours) Vital Signs Temp Pulse Resp BP Pulse Ox O2 Del Method 05/17/23 07:36 99.0 F 62 18 146/74 H 97 Room Air PG Care Time/CCT Total # of Minutes Spent Total Time Spent with Patient: Total time spent is greater than 50% in coordination of care (as documented) at patient's floor/unit and/or counseling patient: Coding Level of Care Code 75750 SUB INP/OBS CARE 2/35MIN Diagnoses Cervical radiculopathy M54.12 Anxiety F41.9 IBS (irritable bowel syndrome) K58.9 CAD (coronary artery disease) I25.10 Coronary Disease-Associated Artery/Lesion type: [place] artery [place] vs. transplanted heart: [place] heart Associated angina: angina presence unspecified GERD (gastroesophageal reflux disease) K21.9 Esophagitis presence: without esophagitis Uncontrolled type 2 diabetes mellitus with neurologic complication, with long- term current use of insulin E11.49; E11.65; Z79.4 Diabetic gastroparesis E11.43; K31.84 Dyslipidemia E78.5 HTN (hypertension) I10 CKD (chronic kidney disease), stage III N18.30 Time Spent (min) 35 (4) CAD (coronary artery disease) Coronary Disease-Associated Artery/Lesion type: [place] artery [place] vs. transplanted heart: [place] heart Associated angina: angina presence unspecified Qualified Code(s): I25.10 - Atherosclerotic heart disease of [place] coronary artery without angina pectoris (5) GERD (gastroesophageal reflux disease) Esophagitis presence: without esophagitis Qualified Code(s): K21.9 - Gastro- esophageal reflux disease without esophagitis
--- NOTE | 2023-05-17 14:51 | Pharmacy Report ---
Pharmacy Glycemic Short Note 2 - Date of Service May 17, 2023 - Glycemic Short BSG Results (Last 24 hours): 05/16/23 05/16/23 05/16/23 16:25 17:51 20:28 Glucose POC Glucose 71 107 H 55 L* 05/16/23 05/16/23 05/16/23 20:30 20:54 21:23 Glucose POC Glucose 54 L* 68 L* 84 05/17/23 05/17/23 05/17/23 00:05 06:59 07:46 Glucose 152 H POC Glucose 200 H 134 H 05/17/23 11:36 Glucose POC Glucose 221 H OUTPATIENT ANTIDIABETIC REGIMEN: * Tresiba 30 units SQ qPM * Novolog 8 units SQ TID w/ meals * Metformin 1gm PO BID * HbA1c: 11.5% 05/15/23 ASSESSMENT: 05/17: * Claire received 104 units of insulin yesterday of which 40 were basal * Dexamethasone 4mg PO TID continue * Fasting BSG within normal range, will continue basal regimen * Hypoglycemia yesterday evening, loosened correction factor and carbohydrate ratio slightly 05/16 * Patient received 95 units of insulin yesterday, 45 units basal. * Blood sugars elevated most of yesterday despite increase in basal and tightening CF/CR due to steroids, patient received Dexamethasone 8mg IV, then started 4mg PO TID. * Further increase basal and tighten CR. 05/15 * Patient's blood sugar improved this morning to goal, 134mg/dl, ordered one additional dose of Dexamethasone 8mg IV today, will give basal this morning to cover, and then resume home dose of basal tonight. Patient currently NPO. * Tighten CF/CR, loosen as steroid effects wear off. * Tighten goal range. 05/14 * Ms Rosas is a 78yo diabetic F admitted with cervical radiculopathy. Ortho has been consulted and will see pt this weekend. * Pt rec'd a dose of IV dexamethasone yesterday and is scheduled to receive another dose this morning. Expect steroid-induced hyperglycemia with DXM, which has been the case. * Extra dose of Lantus ordered last night. * Novolog parameters tightened to provide additional coverage. * Expect that pt will require additional insulin while steroids are on board. After steroids are cut, anticipate that insulin requirements will decrease again. * Pharmacy will continue to follow and adjust regimen as indicated. PLAN FOR INPATIENT GLYCEMIC CONTROL: * Hold outpatient diabetes medications * Basal insulin - increase * Lantus 30 units QAM, Lantus 10 HS * Bolus insulin - tighten CR * NovoLog per scale ACHS or Q6hrs while NPO * Goal Range: Low 110 mg/dL - High 140 mg/dL * Correction Factor: 15 mg/dL/unit * Nutritional / Prandial insulin per carb ratio of 1 unit per 3 grams CHO consumed
--- NOTE | 2023-05-17 15:26 | Nuclear Medicine Report ---
NM bone scan whole body HISTORY: 78 years-old Female arm and back pain acute low back pain COMPARISON: MRI lumbar spine 05/15/2023 TECHNIQUE: Anterior and posterior planar whole body sonographic bone scan images were obtained follow ing the intravenous administration of 23.8 mCi technetium 99 MDP administered via the right hand. Chantal ges were obtained 3 hours post injection. FINDINGS: Accumulation of tracer activity within the right hand from the injection. Physiologic distribution of tracer activity noted within the kidneys, renal collecting systems, urinary bladder and soft tissues . No pathologic tracer activity identified. Mild multifocal degenerative periarticular uptake. Right knee arthroplasty. IMPRESSION: Unremarkable exam. ACT 112: Negative or not required by law. The above report was generated using voice recognition software. It may contain grammatical, syntax o r spelling errors. Electronically signed by: Jordan Vee M.D. 05/17/2023 3:25 PM
[2023-05-17] MEDS: GABAPENTIN 100 MG CAP PO SCH (21:29)
[2023-05-18] MEDS: ACETAMINOPHEN 500 MG TAB PO SCH ×3 (01:12→17:38)
[2023-05-18 08:13] LABS: Hematocrit (blood only) 34.7 % (37.0-47.0); Hemoglobin 11.7 g/dl (12.0-16.0); Mean Corpuscular Hgb Conc 33.7 g/dL (32.0-36.0); Mean Corpuscular Volume 80.1 fL (80.0-100.0); Mean Platelet Volume 10.2 fL (9.4-12.4); Platelet Count 262 K/uL (130-400); RDW Coefficient of Variation 14.1 % (11.5-14.5); RDW Standard Deviation 41.2 fL (36.4-46.3); Red Blood Count 4.33 M/uL (4.20-5.40); White Blood Count 7.22 K/ul (4.8-10.8)
[2023-05-18] MEDS: lisinopril 10 MG TAB PO SCH (08:15)
[2023-05-18] MEDS: DULoxetine HCL 30 MG CAP PO SCH (08:16)
[2023-05-18] MEDS: ASPIRIN 81 MG ECTAB PO SCH (08:16)
[2023-05-18] MEDS: METOPROLOL SUCC 50MG EXT REL TAB PO SCH (08:16)
[2023-05-18] MEDS: PANTOprazole 40 MG TAB PO SCH ×2 (08:16→20:58)
[2023-05-18] MEDS: EZETIMIBE 10 MG TAB PO SCH (08:17)
[2023-05-18] MEDS: dexAMETHasone 4 MG TAB PO SCH ×3 (08:17→20:58)
[2023-05-18] MEDS: ISOSORBIDE MONO EXTENDED REL 30 MG TABCR PO SCH (08:17)
[2023-05-18] MEDS: ROSUVASTATIN CALCIUM 20 MG TAB PO SCH (08:17)
[2023-05-18] MEDS: busPIRone 5 MG TAB PO SCH ×3 (08:17→20:58)
[2023-05-18] MEDS: FLUTICASONE FUROATE 100MCG 14 PUFFS/INHALER INH SCH (08:18)
[2023-05-18] MEDS: FAMOTIDINE 20 MG TAB PO SCH ×2 (08:18→20:58)
[2023-05-18] MEDS: UMECLIDINIUM/VILANTEROL 62.5/25MCG 7 PUFFS/INHALER INH SCH (08:18)
[2023-05-18] MEDS: INSULIN ASPART PER UNIT CHARGE SC SCH ×4 (08:24→21:02)
[2023-05-18] MEDS: LANTUS PER UNIT CHARGE SQ SCH (08:24)
[2023-05-18 08:33] LABS: BUN Creatinine Ratio 36.3 (10-20); Calcium 8.2 mg/dl (8.6-10.3); Creatinine Clr Calc Pharmacy 49.2 ml/min; Est GFR (Non-African American) 61.3 ml/min; Potassium 4.1 mmol/L (3.5-5.1)
[2023-05-18] MEDS ORDERED: LANTUS PER UNIT CHARGE SQ SCH ×3 (09:00→21:00)
--- NOTE | 2023-05-18 13:03 | Hospitalist Progress Note ---
Date of Service May 18, 2023 Assessment & Plan (1) Cervical radiculopathy: Plan: 78yo Female with PMH cervical radiculopathy anxiety IBS GERD, poorly managed DM2 HTN CAD CKD3 anemia, here for concerns worsened b/l arm pain and swelling. Cervical radiculopathy b/l -MRI cervical w/o contrast showed degenerative changes and multilevel central canal and foraminal stenosis -US UE negative for DVT -Ordered dexamethasone 8mg IV once, and PO 4mg TID -Evaluated by Spine surgery -Patient unlikely to have Rheumatoid arthritis in view of normal ESR and normal CCP -Body scan was also unremarkable -Await final recs from spine surgery, unlikely she will need surgery -PT recommends rehab, patient willing to go to [facility], auth pending HTN, CAD -continue metoprolol, isosorbide mononitrate, ASA HLD -continue ezetimibe, rosuvastatin GERD -continue famotidine protonix Depression -continue buspirone, duloxetine DM2 -Due to steroids, glucose control not optimal -Will increase Glargine to 30 units BID -ordered SSI -hold home metformin -consult glycemic pharmacy FENa: heart healthy carb consistent, Code Status: DNR/DNI DVT PPX: SCDs PT/OT: ordered Dispo: med/surg (2) Anxiety: (3) IBS (irritable bowel syndrome): (4) CAD (coronary artery disease): (5) GERD (gastroesophageal reflux disease): (6) Uncontrolled type 2 diabetes mellitus with neurologic complication, with long-term current use of insulin: (7) Diabetic gastroparesis: (8) Dyslipidemia: (9) HTN (hypertension): (10) CKD (chronic kidney disease), stage III: Plan Patient needs Rehab, auth pending for [facility] Admission and Anticipated Discharge Date Admission Date: May 14, 2023 Subjective patient seen and examined, says her pain and swelling are better, now able to clench her fist Review of Systems Review of Systems: All systems reviewed are negative, apart from the ones contained in the history. Physical Exam Physical Exam: The patient is awake, alert and oriented 3, well developed and well nourished, normocephalic and atraumatic, lying in bed and in no acute distress. HEENT--PERRL, EOMI, mucous membranes and oropharynx mildly dry Neck--supple. No JVD. No bruits. Thyroid normal, trachea midline, no adenopathy. Heart--normal S1 and S2. No murmurs, rubs or gallops. Lungs--clear bilaterally, no respiratory distress, no accessory muscle use. Abdomen--normal bowel sounds and soft. Mild epigastric and left sided abdominal pain Extremities--no cyanosis or clubbing. No edema. Dermatologic--normal skin turgor, normal color, no abnormal lymph nodes, no rash. Neurologic--cranial nerves II through XII grossly intact. Rheumatologic--normal range of motion. Psychiatric--normal affect. Results & Data Results & Data Vital Signs (Past 12 Hours) Vital Signs Temp Pulse Resp BP Pulse Ox O2 Del Method 05/18/23 07:45 Room Air 05/18/23 07:27 98.1 F 57 L 16 161/76 H 98 Room Air PG Care Time/CCT Total # of Minutes Spent Total Time Spent with Patient: Total time spent is greater than 50% in coordination of care (as documented) at patient's floor/unit and/or counseling patient: Coding Level of Care Code 95878 SUB INP/OBS CARE 2/35MIN Diagnoses Cervical radiculopathy M54.12 Anxiety F41.9 IBS (irritable bowel syndrome) K58.9 CAD (coronary artery disease) I25.10 Coronary Disease-Associated Artery/Lesion type: [place] artery [place] vs. transplanted heart: [place] heart Associated angina: angina presence unspecified GERD (gastroesophageal reflux disease) K21.9 Esophagitis presence: without esophagitis Uncontrolled type 2 diabetes mellitus with neurologic complication, with long- term current use of insulin E11.49; E11.65; Z79.4 Diabetic gastroparesis E11.43; K31.84 Dyslipidemia E78.5 HTN (hypertension) I10 CKD (chronic kidney disease), stage III N18.30 Time Spent (min) 35 (4) CAD (coronary artery disease) Coronary Disease-Associated Artery/Lesion type: [place] artery [place] vs. transplanted heart: [place] heart Associated angina: angina presence unspecified Qualified Code(s): I25.10 - Atherosclerotic heart disease of [place] coronary artery without angina pectoris (5) GERD (gastroesophageal reflux disease) Esophagitis presence: without esophagitis Qualified Code(s): K21.9 - Gastro- esophageal reflux disease without esophagitis
[2023-05-18] MEDS: GABAPENTIN 100 MG CAP PO SCH (20:58)
[2023-05-19] MEDS: ACETAMINOPHEN 500 MG TAB PO SCH ×2 (00:26→08:48)
[2023-05-19 06:42] LABS: Hematocrit (blood only) 34.2 % (37.0-47.0); Hemoglobin 11.7 g/dl (12.0-16.0); Mean Corpuscular Hemoglobin 27.2 pg (25.0-34.0); Mean Corpuscular Hgb Conc 34.2 g/dL (32.0-36.0); Mean Corpuscular Volume 79.5 fL (80.0-100.0); Mean Platelet Volume 10.4 fL (9.4-12.4); Platelet Count 249 K/uL (130-400); RDW Coefficient of Variation 14.1 % (11.5-14.5); RDW Standard Deviation 40.7 fL (36.4-46.3); White Blood Count 7.27 K/ul (4.8-10.8)
[2023-05-19 07:13] LABS: BUN Creatinine Ratio 37.6 (10-20); Creatinine Clr Calc Pharmacy 48.2 ml/min; Est GFR (African American) 69.2 ml/min; Est GFR (Non-African American) 59.7 ml/min; Potassium 4.4 mmol/L (3.5-5.1)
[2023-05-19] MEDS: UMECLIDINIUM/VILANTEROL 62.5/25MCG 7 PUFFS/INHALER INH SCH (08:48)
[2023-05-19] MEDS: FLUTICASONE FUROATE 100MCG 14 PUFFS/INHALER INH SCH (08:48)
[2023-05-19] MEDS: FAMOTIDINE 20 MG TAB PO SCH (08:49)
[2023-05-19] MEDS: PANTOprazole 40 MG TAB PO SCH (08:49)
[2023-05-19] MEDS: busPIRone 5 MG TAB PO SCH ×2 (08:49→13:49)
[2023-05-19] MEDS: dexAMETHasone 4 MG TAB PO SCH (08:49)
[2023-05-19] MEDS: METOPROLOL SUCC 50MG EXT REL TAB PO SCH (08:50)
[2023-05-19] MEDS: ROSUVASTATIN CALCIUM 20 MG TAB PO SCH (08:50)
[2023-05-19] MEDS: lisinopril 10 MG TAB PO SCH (08:50)
[2023-05-19] MEDS: ISOSORBIDE MONO EXTENDED REL 30 MG TABCR PO SCH (08:50)
[2023-05-19] MEDS: ASPIRIN 81 MG ECTAB PO SCH (08:51)
[2023-05-19] MEDS: DULoxetine HCL 30 MG CAP PO SCH (08:51)
[2023-05-19] MEDS: EZETIMIBE 10 MG TAB PO SCH (08:51)
--- NOTE | 2023-05-19 08:55 | Hospitalist Progress Note ---
Date of Service May 19, 2023 Assessment & Plan (1) Cervical radiculopathy: Plan: 78yo Female with PMH cervical radiculopathy anxiety IBS GERD, poorly managed DM2 HTN CAD CKD3 anemia, here for concerns worsened b/l arm pain and swelling. Cervical radiculopathy b/l -MRI cervical w/o contrast showed degenerative changes and multilevel central canal and foraminal stenosis -US UE negative for DVT -Ordered dexamethasone 8mg IV once, and PO 4mg TID -Evaluated by Spine surgery -Patient unlikely to have Rheumatoid arthritis in view of normal ESR and normal CCP -Body scan was also unremarkable -Await final recs from spine surgery, unlikely she will need surgery -PT recommends rehab, patient willing to go [facility], auth pending changing to prednisone 10mg TID x 2 days, then decrease to BID x 2 days then once daily x 2 days to complete taper. Wanting to taper more quickly given DM w/ A1c 11.5 this past month also checking B12 -- when i had prior was low normal, sent on PO supp at [facility]. Folate was also LOW at 4.98 Will check iron panel given MCV <80 as well HTN, CAD -continue metoprolol, isosorbide mononitrate, ASA HLD -continue ezetimibe, rosuvastatin GERD -continue famotidine protonix Depression -continue buspirone, duloxetine DM2 -Due to steroids, glucose control not optimal -Will increase Glargine to 30 units BID -ordered SSI -hold home metformin -consult glycemic pharmacy CKD, DMII FENa: heart healthy carb consistent, Code Status: DNR/DNI DVT PPX: SCDs PT/OT: ordered Dispo: med/surg (2) Anxiety: (3) IBS (irritable bowel syndrome): (4) CAD (coronary artery disease): (5) GERD (gastroesophageal reflux disease): (6) Uncontrolled type 2 diabetes mellitus with neurologic complication, with long-term current use of insulin: (7) Diabetic gastroparesis: (8) Dyslipidemia: (9) HTN (hypertension): (10) CKD (chronic kidney disease), stage III: Plan Patient needs Rehab, auth pending for [facility] Admission and Anticipated Discharge Date Admission Date: May 14, 2023 Subjective Eval this morning, feeling great. Good appetitie, moving her bowels. Cervical symptoms improved/completely resolved with steroids. She was hoping for dc home. Will see about PT coming to eval but if stable for dc could consider. Will plan to touch base w/ endo prior to dc. Results & Data Results & Data Vital Signs (Past 12 Hours) Vital Signs Temp Pulse Resp BP Pulse Ox O2 Del Method 05/19/23 07:35 36.8 C 57 L 16 169/68 H 97 Room Air Laboratory Results 05/19/23 05/19/23 05/19/23 Range/Units 08:01 06:16 06:16 WBC 7.27 (4.8-10.8) K/ul RBC 4.30 (4.20-5.40) M/uL Hgb 11.7 L (12.0-16.0) g/dl Hct 34.2 L (37.0-47.0) % MCV 79.5 L (80.0-100.0) fL MCH 27.2 (25.0-34.0) pg MCHC 34.2 (32.0-36.0) g/dL RDW Std Deviation 40.7 (36.4-46.3) fL RDW Coeff of Tino 14.1 (11.5-14.5) % Plt Count 249 (130-400) K/uL MPV 10.4 (9.4-12.4) fL Sodium 136 (136-145) mmol/L Potassium 4.4 (3.5-5.1) mmol/L Chloride 107 (98-107) mmol/L Carbon Dioxide 24 (21-32) mmol/L Anion Gap 5 (3-11) BUN 35 H (6-23) mg/dl Creatinine 0.93 (0.6-1.2) mg/dl Est Cr Clr Drug Dosing 48.2 ml/min Est GFR ( Amer) 69.2 ml/min Est GFR (Non-Af Amer) 59.7 ml/min BUN/Creatinine Ratio 37.6 H (10-20) Glucose 118 H (70-99(Fasting)) mg/dl POC Glucose 92 (70-99) mg/dl Calcium 8.0 L (8.6-10.3) mg/dl 05/18/23 05/18/23 05/18/23 Range/Units 20:35 16:41 11:29 WBC (4.8-10.8) K/ul RBC (4.20-5.40) M/uL Hgb (12.0-16.0) g/dl Hct (37.0-47.0) % MCV (80.0-100.0) fL MCH (25.0-34.0) pg MCHC (32.0-36.0) g/dL RDW Std Deviation (36.4-46.3) fL RDW Coeff of Tino (11.5-14.5) % Plt Count (130-400) K/uL MPV (9.4-12.4) fL Sodium (136-145) mmol/L Potassium (3.5-5.1) mmol/L Chloride (98-107) mmol/L Carbon Dioxide (21-32) mmol/L Anion Gap (3-11) BUN (6-23) mg/dl Creatinine (0.6-1.2) mg/dl Est Cr Clr Drug Dosing ml/min Est GFR ( Amer) ml/min Est GFR (Non-Af Amer) ml/min BUN/Creatinine Ratio (10-20) Glucose (70-99(Fasting)) mg/dl POC Glucose 161 H 88 102 H (70-99) mg/dl Calcium (8.6-10.3) mg/dl PG Care Time/CCT Total # of Minutes Spent Total Time Spent with Patient: Total time spent is greater than 50% in coordination of care (as documented) at patient's floor/unit and/or counseling patient: Coding Diagnoses Cervical radiculopathy M54.12 Anxiety F41.9 IBS (irritable bowel syndrome) K58.9 CAD (coronary artery disease) I25.10 Associated angina: angina presence unspecified Coronary Disease-Associated Artery/Lesion type: [place] artery [place] vs. transplanted heart: [place] heart GERD (gastroesophageal reflux disease) K21.9 Esophagitis presence: without esophagitis Uncontrolled type 2 diabetes mellitus with neurologic complication, with long- term current use of insulin E11.49; E11.65; Z79.4 Diabetic gastroparesis E11.43; K31.84 Dyslipidemia E78.5 HTN (hypertension) I10 CKD (chronic kidney disease), stage III N18.30 (4) CAD (coronary artery disease) Associated angina: angina presence unspecified Coronary Disease-Associated Artery/Lesion type: [place] artery [place] vs. transplanted heart: [place] heart Qualified Code(s): I25.10 - Atherosclerotic heart disease of [place] coronary artery without angina pectoris (5) GERD (gastroesophageal reflux disease) Esophagitis presence: without esophagitis Qualified Code(s): K21.9 - Gastro- esophageal reflux disease without esophagitis
[2023-05-19] MEDS: INSULIN ASPART PER UNIT CHARGE SC SCH ×2 (08:56→12:41)
[2023-05-19] MEDS ORDERED: dexAMETHasone 4 MG TAB PO SCH (09:00)
[2023-05-19] MEDS ORDERED: LANTUS PER UNIT CHARGE SQ SCH ×2 (09:00→21:00)
[2023-05-19] MEDS: predniSONE 10 MG TABLET PO SCH ×2 (09:40→13:58)
[2023-05-19 09:58] LABS: Ferritin 124.3 ng/ml (8-388)
[2023-05-19 10:53] LABS: Folate (Folic Acid),Ser orPlas 11.32 ng/ml (>5.38)
--- NOTE | 2023-05-19 13:15 | Pharmacy Report ---
Pharmacy Glycemic Short Note 2 - Date of Service May 19, 2023 - Glycemic Short BSG Results (Last 24 hours): 05/18/23 05/18/23 05/19/23 16:41 20:35 06:16 Glucose 118 H POC Glucose 88 161 H 05/19/23 05/19/23 08:01 11:39 Glucose POC Glucose 92 165 H OUTPATIENT ANTIDIABETIC REGIMEN: * Tresiba 30 units SQ qPM * Novolog 8 units SQ TID w/ meals * Metformin 1gm PO BID HbA1c: 11.5% 05/15/23 ASSESSMENT: 05/19: * BSGs remain reasonably well-controlled over past 36 hours, ranging 73-165 mg/dL * Fasting BSG of 73 mg/dL yesterday likely related to increased dose of basal, which has now been reduced * Dexamethasone 4 mg PO TID changed to prednisone taper (10 mg PO TID today) * Will continue current Novolog parameters and utilize scaled basal today w/ steroid change 05/17: * Claire received 104 units of insulin yesterday of which 40 were basal * Dexamethasone 4mg PO TID continue * Fasting BSG within normal range, will continue basal regimen * Hypoglycemia yesterday evening, loosened correction factor and carbohydrate ratio slightly 05/16 * Patient received 95 units of insulin yesterday, 45 units basal. * Blood sugars elevated most of yesterday despite increase in basal and tightening CF/CR due to steroids, patient received Dexamethasone 8mg IV, then started 4mg PO TID. * Further increase basal and tighten CR. 05/15 * Patient's blood sugar improved this morning to goal, 134mg/dl, ordered one additional dose of Dexamethasone 8mg IV today, will give basal this morning to cover, and then resume home dose of basal tonight. Patient currently NPO. * Tighten CF/CR, loosen as steroid effects wear off. * Tighten goal range. 05/14 * Ms Rosas is a 78yo diabetic F admitted with cervical radiculopathy. Ortho has been consulted and will see pt this weekend. * Pt rec'd a dose of IV dexamethasone yesterday and is scheduled to receive another dose this morning. Expect steroid-induced hyperglycemia with DXM, which has been the case. * Extra dose of Lantus ordered last night. * Novolog parameters tightened to provide additional coverage. * Expect that pt will require additional insulin while steroids are on board. After steroids are cut, anticipate that insulin requirements will decrease again. * Pharmacy will continue to follow and adjust regimen as indicated. PLAN FOR INPATIENT GLYCEMIC CONTROL: * Hold outpatient diabetes medications * Basal insulin - * Lantus 20 units SC qAM * Lantus 10-20 units SC HS (see protocol text) * Reassess in AM * Bolus insulin - tighten CR * NovoLog per scale ACHS or Q6hrs while NPO * Goal Range: Low 110 mg/dL - High 140 mg/dL * Correction Factor: 15 mg/dL/unit * Nutritional / Prandial insulin per carb ratio of 1 unit per 4 grams CHO consumed
--- NOTE | 2023-05-19 14:30 | Discharge Summary ---
Date of Service May 19, 2023 Admission HPI Per Admitting Provider 78yo Female with PMH cervical radiculopathy anxiety IBS GERD, poorly managed DM2 HTN CAD CKD3 anemia, here for concerns worsened b/l arm pain and swelling. Patient has chronic cervical radiculopathy symptoms pain radiating from neck to both arms down to her fingers. 3 months ago she noticed the pain was gradually worsening, no inciting event noted. Today patient describes pain as 10/10 acutely worse than prior, states pain is sharp and feels like she's on fire, does not note increased warmth in hands. Patient described gradually worsening swelling of both hands with pain on palpation that improved towards the end of the day. States she is unable to make a fist with either hand. She describes numbness across her entire left arm and her lower right arm, this numbness occasionally improves but is usually present. Patient states the swelling and pain in both hands has made it difficult for her to use her walker, apply topical medications, and cook for herself. Patient states she lives alone and is no longer able to support herself due to her ongoing pain. Patient has been following with ortho was started on gabapentin tramadol and topical voltaren gel, had difficulty applying gel other pain medications somewhat help. Had 2 courses steroids oral with 70% pain improvement, however ortho states she cannot continuously be on steroid was sent in to ED. Was originally scheduled to see pain management on 05/21. Had MRI neck 04/30 with multilevel degenerative disc disease and multilevel neural foraminal stenosis. Patient also has a history of radicular pain radiating down both legs over 3 months ago that has since resolved, no difficulty ambulating due to leg pain Admission Exam Per Admitting Provider Constitutional: well developed, well nourished and + in distress Eyes: PERRL, conjunctivae normal, anicteric sclerae ENMT: external ear and nose normal, oropharynx normal Neck: trachea midline, no thyromegaly Respiratory: normal respiratory effort, lungs clear to auscultation Cardiovascular: RRR, no murmur, no edema Gastrointestinal (Abdomen): normal bowel sounds, soft, nontender, no hepatosplenomegaly Musculoskeletal: 5/5 strength testing in b/l UE limited by pain. ROM b/l upper extremities severely limited by pain. Noted swelling in b/l hands and wrists L>R with difficulty forming a fist. Skin: no rashes, warm and dry nonpitting edema erythema noted in b/l hands and wrists with noted pain on palpation. Neurologic: CN's II-XI intact bilaterally Describes numbness pain on light touch to entire left UE including fingers, arm, left anterior lateral chest, and left neck. 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, able to raise hands above head, good strength testing against resistance no focal deficit, no slurred speech, NVI intact Psych: AOx3, cooperative w/ exam Discharge Data Allergies Allergy/AdvReac Type Severity Reaction Status Date / Time cephalexin Allergy Intermediate Rash and Verified 05/04/23 08:54 itchiness Cephalosporins Allergy Intermediate Rash and Verified 05/04/23 08:54 itchiness Sulfa (Sulfonamide Allergy Intermediate Hives Verified 05/04/23 08:54 Antibiotics) Consultations 05/14/23 12:34 Consult Orthopedic Spine Surgery Routine Ordered Studies Chest X-Ray 05/14/23 11:14 XR chest 1V portable CLINICAL HISTORY: Chest pain, nonspecific TECHNIQUE: Single frontal radiograph of the chest was obtained. Comparison: Comparison is made to chest radiograph 03/30/2023 FINDINGS: No lines and tubes are seen. The cardiomediastinal silhouette is normal. The lungs are clear. No evidence of pleural effusion or pneumothorax. IMPRESSION: No acute chest disease. ACT 112: Negative or not required by law. Electronically signed by: Josh Lange M.D. 05/14/2023 12:45 PM Extremity Venous Study 05/14/23 11:19 ULTRASOUND LEFT UPPER EXTREMITY VENOUS CLINICAL HISTORY: Acute pain and swelling of the left upper extremity. COMPARISON STUDY: 03/25/2023. TECHNIQUE: Real-time, grayscale, and color Doppler sonography of the deep veins of the left upper extremity is performed. Compression and augmentation were utilized. FINDINGS: There is no sonographic evidence of deep venous thrombosis identified in the left upper extremity. The left internal jugular, axillary, and brachial veins are patent and normally compressible. Normal venous waveforms and augmentation are seen within the left subclavian vein. The cephalic and basilic veins are clear. The visualized radial and ulnar veins are patent. IMPRESSION: There is no sonographic evidence of deep venous thrombosis identified in the left upper extremity. ACT 112: Negative or not required by law. Electronically signed by: Jordan Vee M.D. 05/14/2023 2:32 PM Cervical Spine MRI 05/14/23 12:33 MR cervical spine wo con HISTORY: 78 years-old Female cervical radiculopathy b/l Acute neck pain with left upper extremity numbness. COMPARISON: 04/29/2023. TECHNIQUE: Multiplanar, multisequence MRI of the cervical spine was obtained without the use of IV contrast. FINDINGS: Partially empty sella incidentally noted. No acute fracture or subluxation. No marrow edema or marrow replacement is present. There is moderate multilevel disc space narrowing within the cervical spine. C2-C3: The central canal and neural foramen are patent. C3-C4: There is mild disc space narrowing with posterior disc osteophyte complex. This effaces the ventral thecal sac. There is mild central canal stenosis, AP dimension of the thecal sac measuring 9 mm. There is mild bilateral neural foraminal stenosis. C4-C5: There is moderate disc space narrowing with posterior disc osteophyte complex which effaces the ventral thecal sac and results in mild central canal stenosis, AP dimension of the thecal sac measuring 7 mm. There is severe right neural foraminal stenosis due to disc osteophyte complex and uncovertebral hypertrophy. There is mild left neural foraminal stenosis. C5-C6: There is mild disc space narrowing. Posterior disc osteophyte complex effaces the ventral thecal sac. There is mild central canal stenosis, AP dimension of the thecal sac measuring 8 mm. There is mild right and moderate left neural foraminal stenosis. C6-C7: There is mild posterior disc osteophyte complex. This effaces the ventral thecal sac. Central canal is mildly narrowed, AP dimension of the thecal sac measuring 8 mm. Neural foramen are patent. C7-T1: Central canal and neural foramen are patent. IMPRESSION: 1. No change compared to the study obtained on 04/29/2023. 2. Discogenic degeneration as above resulting in associated multilevel central canal and foraminal stenosis. 3. Normal signal of the cervical spinal cord. ACT 112: Negative or not required by law. The above report was generated using voice recognition software. It may contain grammatical, syntax or spelling errors. Dictated: 05/14/2023 4:43 PM Transcribed: 05/14/2023 5:25 PM Mady [id number] [id number] Electronically signed by: Jordan Vee M.D. 05/14/2023 5:27 PM Lumbar Spine MRI 05/15/23 10:33 MRI OF THE LUMBAR SPINE WITHOUT CONTRAST CLINICAL HISTORY: Back and leg pain. COMPARISON STUDY: Lumbar spine MRI November 06, 2020. Lumbar spine CT October 24, 2021. TECHNIQUE: Utilizing a 1.5 Sheeba magnet and dedicated coil, multiplanar, multiecho imaging of the lumbar spine was performed without IV contrast. FINDINGS: For purposes of numbering on this exam, the L4-L5 disc space is assigned to axial image 27 of 30. There is no intracanalicular mass or fluid collection. The conus terminates at the upper L1 level. There is presacral edema, a nonspecific finding. Paravertebral soft tissues are unremarkable. There is slight anterolisthesis (4 mm) of L4 and L5. Otherwise, alignment is anatomic. There is no lumbar spine fracture. No suspicious marrow replacement is present. L1-2: There is mild disc bulge with moderate facet arthrosis. The central canal and neural foramen are patent. L2-3: There is moderate facet arthrosis. There is a tiny left paracentral disc protrusion. There is mild narrowing of the left lateral recess. There is no significant central canal stenosis. Neural foramen are patent. L3-4: Moderate facet arthrosis is present. Central canal and neural foramen are patent. L4-5: Left hemilaminectomy is noted. There is facet arthrosis with disc bulge. Moderate is central canal narrowing is noted. Patent AP diameter canal is 5.2 mm. There is moderate narrowing of the lateral recesses and the neural foramen, left greater than right. L5-S1: There is moderate facet arthrosis. Central canal and neural foramen are patent. IMPRESSION: 1. Status post left L4-L5 hemilaminectomy. 2. Moderate central canal stenosis at L4-L5 due to facet arthrosis which results in grade one anterolisthesis. Ligamentous hypertrophy with disc bulge. Moderate narrowing of the lateral recesses and bilateral neural foramen at this level. Otherwise, patent central canal. 3. Overall, moderate multilevel degenerative changes within the lumbar spine. 4. No lumbar spine fractures. ACT 112: Negative or not required by law. Electronically signed by: Jimmy Chavarria M.D. 05/15/2023 11:51 AM Bone Scan Nuclear Medicine 05/17/23 11:45 NM bone scan whole body HISTORY: 78 years-old Female arm and back pain acute low back pain COMPARISON: MRI lumbar spine 05/15/2023 TECHNIQUE: Anterior and posterior planar whole body sonographic bone scan images were obtained following the intravenous administration of 23.8 mCi technetium 99 MDP administered via the right hand. Images were obtained 3 hours post injection. FINDINGS: Accumulation of tracer activity within the right hand from the injection. Physiologic distribution of tracer activity noted within the kidneys, renal collecting systems, urinary bladder and soft tissues. No pathologic tracer activity identified. Mild multifocal degenerative periarticular uptake. Right knee arthroplasty. IMPRESSION: Unremarkable exam. ACT 112: Negative or not required by law. The above report was generated using voice recognition software. It may contain grammatical, syntax or spelling errors. Electronically signed by: Jordan Vee M.D. 05/17/2023 3:25 PM Diabetes Follow up Diabetes Follow-up Needed for HgbA1c >9% Hospital Course (1) Cervical radiculopathy: 78yo Female with PMH cervical radiculopathy anxiety IBS GERD, poorly managed DM2 HTN CAD CKD3 anemia, here for concerns worsened b/l arm pain and swelling. Cervical radiculopathy b/l UE MRI showing degenerative changes -Moderate central canal stenosis at L4-L5 due to facet arthrosis which results in grade one anterolisthesis. Ligamentous hypertrophy with disc bulge. Moderate narrowing of the lateral recesses and bilateral neural foramen at this level. Otherwise, patent central canal. US doppler NEGATIVE for DVT in UE given edema on admit Dr Cheung consulted, no surgery. ESR/CRP checked for inflammatory process, not significantly elevated, less likely RA Body scan unremarkable PT/OT rec rehab however after several days dexamethasone, patient reporting significant improvement in ambulation, not as unsteady and asked PT to re-eval today and patient did WELL and stable for discharge with resumption of through [facility] at discharge per discussion w/ case management Changed to prednisone taper -- 10mg TID x 2 days, then decrease to 10mg BID x 2 days, then 10mg daily x 2 days then stopped. Discussed w/ pharmacy given elevated A1C >11, and was transitioning back to usual regimen and discussed continuing current regimen and contacting endocrinology office if any significant elevations. B12 low prior admit, IM given and was given folate. Repeat levels improved and could consider B12 in f/u with PCP as well HTN, CAD -continued metoprolol, isosorbide mononitrate, ASA - no CP/SOB reported HLD -continued ezetimibe, rosuvastatin GERD -hx barretts -continued famotidine protonix - rec GI f/u if no recent EGD for screening,iron f/u with PCP, can consider fecal occult testing (denied bleeding). had been following [facility] Depression -improved compared to last admission -continued buspirone, duloxetine DM2 -Due to steroids, glucose control not optimal, glargine increased to 30u BID, SSI and pharmacy consulted BSGs well controlled, transitioned to PO prednisone at ms and to continue to monitor BSGs at home/alert endo if any significant elevations CKD - BUN/Cr appearing around baseline Discharged home with prednisone taper, home health therapy to be resumed. (2) Anxiety: (3) IBS (irritable bowel syndrome): (4) CAD (coronary artery disease): (5) GERD (gastroesophageal reflux disease): (6) Uncontrolled type 2 diabetes mellitus with neurologic complication, with long-term current use of insulin: (7) Diabetic gastroparesis: (8) Dyslipidemia: (9) HTN (hypertension): (10) CKD (chronic kidney disease), stage III: Total Time Total Time Spent Total Time Spent (In Minutes): 50 Discharge Plan Discharge Items Patient Disposition: Home - Self-Care Reason For Visit: CERVICAL RADICULOPATHY Discharge Diagnosis: Cervical Radiculopathy Goals: You have been hospitalized for an acute medical problem. During your stay at [facility], we have made an effort to correct the problem that brought you to the hospital while keeping you as comfortable as possible. Medications were used to bring your condition under control and your discharge instructions will include directions for any medications you should take after leaving the hospital. Please make sure you see your Primary Care Provider as part of your follow up plan. Activity: Resume your previous activity Non-emergency contact: Primary Care Provider Call non-emergency contact if: you have any medication questions, your symptoms worsen, your pain is not controlled and you have a fever Follow-up/Referrals: Berkley Sen PA-C [Primary Care Provider] - 05/24/23 10:30 am Edgardo Beckwith PA-C [Physician Community Administrator] - Diet: Carb Consistent or DM2 Addtl Attending Provider Instructions: You have been hospitalized for arm pain/swelling and concerns for narrowing in your spine per imaging. You were evaluated by orthopedic spine surgery who did not feel this required any surgery and you were placed on steroids with significant improvement. Your blood sugars have been well controlled while in the hospital and I did discuss with the pharmacist given the transition to oral prednisone to complete a taper at discharge and we are recommending you continue your usual insulin at home and contact endocrinology if any significant elevations for further adjustments if needed. You should continue prednisone 10mg this afternoon and this evening and then tomorrow take every 8 hours. After that, decrease to 10mg by mouth TWICE daily for two days, then decrease to 10mg ONCE daily for two days to complete the course. Sometimes people need repeat courses, and if ineffective to eliminate issues, surgery may be warranted in the future but hopefully this will prevent that. Please follow up with primary care in the next 7-10 days after discharge to monitor your progress. You can continue follow up with pain management as already being referrred by orthopedics as outpatient for consideration for injections in the future as well if possible. Please return to the ER with any worsening pain, fever, or for any other symptoms concerning for you. It has been a pleasure being a part of the medical team providing for you while you have been in the hospital. Take care! Pending Studies at Discharge: No Stand-Alone Forms: My [employer], Pain - Opioid Pain Management, Smoking Cessation Medications and DC Order Prescriptions: New prednisone 10 mg tablet 10 mg PO DIRECTED Qty: 12 0RF Rx Instructions: see taper instructions - 10mg by mouth TID x 2 days, then 10mg BID x 2 days, then 10mg ONCE daily x 2 days Continued meclizine 25 mg tablet 25 mg PO BID PRN (Reason: dizziness) Qty: 30 0RF nitroglycerin [Nitrostat] 0.4 mg tablet, sublingual 0.4 mg Sublingual UD PRN (Reason: Chest Pain) Qty: 1 3RF ergocalciferol (vitamin D2) 1,250 mcg (50,000 unit) capsule 50,000 unit PO Q7D@0900 Qty: 4 3RF folic acid 1 mg tablet See Rx Instructions .ROUTE .COMPLEX Qty: 30 3RF Dose Instruction: TAKE 1 TABLET BY MOUTH ONCE DAILY IN THE MORNING Rx Instructions: TAKE 1 TABLET BY MOUTH ONCE DAILY IN THE MORNING metaxalone 400 mg tablet 400 mg PO HS PRN (Reason: muscle pain) Qty: 10 0RF tramadol 50 mg tablet 50 mg PO Q6H PRN (Reason: pain) Qty: 20 0RF Praluent Pen 75 mg/mL pen injector 75 mg subcut Q14D Qty: 2 11RF diclofenac sodium [Arthritis Pain (diclofenac)] 1 % gel 2 g topical QID PRN (Reason: Pain) Qty: 100 2RF insulin aspart U-100 [Novolog FlexPen U-100 Insulin] 100 unit/mL (3 mL) insulin pen 8 unit subcut TID Qty: 15 5RF Rx Instructions: inject 8 units with every meal. TDD up to 40 units a day insulin degludec [Tresiba FlexTouch U-100] 100 unit/mL (3 mL) insulin pen 30 unit SQ QPM Qty: 15 5RF Trelegy Ellipta 100-62.5-25 mcg blister with device 1 inh inhalation DAILY Qty: 28 11RF Rx Instructions: She was instructed to rinse mouth thoroughly after each dose. Linzess 145 mcg capsule 145 mcg PO QAM PRN (Reason: Constipation) Patient Comments: Take 30 minutes prior to first meal of the day. Do Not open or Crush capsule gabapentin 100 mg capsule 100 mg PO HS Qty: 90 3RF duloxetine 30 mg capsule,delayed release(DR/EC) 30 mg PO QAM Qty: 90 3RF ezetimibe [Zetia] 10 mg tablet 10 mg PO QAM Qty: 90 3RF metformin 500 mg tablet 1,000 mg PO BID Qty: 360 3RF metoprolol succinate 100 mg tablet extended release 24 hr 100 mg PO QAM Qty: 90 3RF ondansetron HCl 4 mg tablet 4 mg PO Q8H PRN (Reason: nausea and vomiting) Qty: 30 0RF pantoprazole 40 mg tablet,delayed release (DR/EC) 40 mg PO BID Qty: 180 3RF Rx Instructions: TAKE 1 TABLET BY MOUTH TWICE A DAY rosuvastatin 40 mg tablet 40 mg PO QAM Qty: 90 3RF Rx Instructions: Patient would like to use pill pack tramadol 50 mg tablet 50 mg PO HS PRN (Reason: pain) Qty: 20 0RF aspirin 81 mg Tablet,Delayed Release (Dr/Ec) 81 mg PO QAM albuterol sulfate 90 mcg/actuation HFA aerosol inhaler 2 inha INH QID PRN (Reason: shortness of breath or wheezing) Qty: 1 0RF Vitamin B 12 Cypo Value 200+20 1 tab PO DAILY buspirone 10 mg tablet 10 mg PO TID Rx Instructions: TAKE ONE TABLET BY MOUTH THREE TIMES DAILY famotidine 20 mg tablet 20 mg PO BID Rx Instructions: PER DR 1ST isosorbide mononitrate 30 mg tablet extended release 24 hr 30 mg PO QAM acetaminophen-codeine 300-30 mg tablet 1 tab PO Q8H PRN (Reason: pain) Qty: 3 0RF lidocaine [Lidoderm] 5 % adhesive patch,medicated 1 patch TOP DAILY PRN (Reason: pain) Qty: 15 0RF Rx Instructions: leave on most painful area for up to 12 hrs lisinopril 10 mg tablet 10 mg PO QAM Discontinued amoxicillin-pot clavulanate 875-125 mg tablet 1 tab PO BID Qty: 14 0RF Discharge Orders: Discharge Order (Routine); Ordered 05/19/23 Ordered By: vEelyn Stinson/Other Patient Handouts: High Blood Sugar (Hyperglycemia), Managing Type 2 Diabetes, Preventing Deep Vein Thrombosis Admission Data Admit Date/Time: 05/14/23 14:43 Attending Provider: Andrew Willis Admit Provider: Polina Ortega Primary Care Provider: Berkley Sen Other Providers: El Cheung ; [facility] ; [facility] ; [facility] Other Interventions: Discharge Summary Assessment (RN) Last Done: 05/19/23 14:53 Supervising Physician Co-Signing Physician Notes The patient was not seen by me. The chart was reviewed. Case discussed with JAVI Woosd. Agree with assessment and plan Coding Level of Care Code 79017 INP/OBS DISCH >30 MIN Diagnoses Cervical radiculopathy M54.12 Anxiety F41.9 IBS (irritable bowel syndrome) K58.9 CAD (coronary artery disease) I25.10 Associated angina: angina presence unspecified Coronary Disease-Associated Artery/Lesion type: [place] artery [place] vs. transplanted heart: [place] heart GERD (gastroesophageal reflux disease) K21.9 Esophagitis presence: without esophagitis Uncontrolled type 2 diabetes mellitus with neurologic complication, with long- term current use of insulin E11.49; E11.65; Z79.4 Diabetic gastroparesis E11.43; K31.84 Dyslipidemia E78.5 HTN (hypertension) I10 CKD (chronic kidney disease), stage III N18.30
== END 2023-05-19 16:57 | disposition home health service (06) | DRG 552 ==
LOC: ED 10:31 → INTOOBSV 14:43 → 3N 14:43 → SUATTDRO 14:43 → 3N 16:03

== ENCOUNTER 2023-06-18 10:13 | Inpatient (IN) ==
[2023-06-18] MEDS ORDERED: ONDANSETRON INJ 2 MG/ML 2 ML VIAL IV STA (10:39)
[2023-06-18] MEDS ORDERED: SODIUM CHLORIDE 0.9% 1,000 ML IV SCH (10:45)
[2023-06-18] MEDS: HYDROmorphone INJ 0.5 MG/0.5 ML SYR IV PRN ×3 (11:09→15:17)
[2023-06-18 11:16] LABS: Basophils # (auto) 0.05 K/uL (0.00-0.20); Basophils % (auto) 0.6 %; Eosinophils # (auto) 0.03 K/uL (0.00-0.50); Eosinophils % (auto) 0.4 %; Hematocrit (blood only) 37.4 % (37.0-47.0); Hemoglobin 12.6 g/dl (12.0-16.0); Immature Granulocytes # (auto) 0.06 K/uL (0.01-0.20); Immature Granulocytes % (auto) 0.8 %; Lymphocytes # (auto) 1.72 K/uL (1.20-3.40); Mean Corpuscular Hemoglobin 27.5 pg (25.0-34.0); Mean Corpuscular Hgb Conc 33.7 g/dL (32.0-36.0); Mean Corpuscular Volume 81.5 fL (80.0-100.0); Mean Platelet Volume 9.6 fL (9.4-12.4); Monocytes # (auto) 0.52 K/uL (0.11-0.59); Monocytes % (auto) 6.6 %; Neutrophils # (auto) 5.45 K/uL (1.40-6.50); Neutrophils % (auto) 69.6 %; Platelet Count 289 K/uL (130-400); RDW Coefficient of Variation 14.6 % (11.5-14.5); RDW Standard Deviation 42.8 fL (36.4-46.3); Red Blood Count 4.59 M/uL (4.20-5.40); White Blood Count 7.83 K/ul (4.8-10.8)
[2023-06-18 11:47] LABS: Albumin Globulin Ratio 1.2 (0.9-2); Albumin Level 3.7 gm/dl (3.4-5.0); BUN Creatinine Ratio 21.3 (10-20); Bilirubin,Total 0.5 mg/dl (0.2-1.0); Calcium 10.5 mg/dl (8.6-10.3); Creatinine Clr Calc Pharmacy 57.2 ml/min; Est GFR (Non-African American) 71.6 ml/min; Globulin 3.2 gm/dl (2.5-4.0); Magnesium 1.6 mg/dl (1.7-2.4); Potassium 4.2 mmol/L (3.5-5.1); Total Protein 6.9 gm/dl (6.0-8.3); Troponin I High Sensitivity 7.5 pg/ml (0-14)
[2023-06-18 11:50] LABS: Thyroid Stimulating Hormone 2.054 uIu/ml (0.300-4.500)
--- NOTE | 2023-06-18 11:53 | XRay Report ---
XR chest 1V portable CLINICAL HISTORY: weakness COMPARISON STUDY: Chest radiograph May 14, 2023. Chest CT November 27, 2021. FINDINGS: Lung volumes are normal. Lungs are clear. There is no pneumothorax or pleural effusion. Car diac size is normal. Mediastinal contours are normal. There is no evidence for pulmonary edema. IMPRESSION: No acute cardiopulmonary findings. ACT 112: Negative or not required by law. Electronically signed by: Jimmy Chavarria M.D. 06/18/2023 11:51 AM
[2023-06-18] MEDS ORDERED: lisinopril 10 MG TAB PO STA (12:11)
[2023-06-18] MEDS ORDERED: METOPROLOL SUCC 50MG EXT REL TAB PO STA (12:11)
[2023-06-18] MEDS ORDERED: NovoLIN-R INSULIN PER UNIT CHARGE IV STA (12:12)
[2023-06-18] MEDS ORDERED: ISOSORBIDE MONO EXTENDED REL 30 MG TABCR PO ONE (12:12)
--- NOTE | 2023-06-18 13:39 | CT Scan Report ---
CERVICAL SPINE CT CT DOSE: 477.03 mGy.cm HISTORY: severe non-traumatic neck pain TECHNIQUE: Multiaxial CT images of the cervical spine were performed and reformatted in the sagittal and coronal plane without the use of contrast. A dose lowering technique was utilized adhering to th e principles of ALARA. COMPARISON: Cervical spine CT 03/30/2023.. FINDINGS: No fractures. No subluxation. Prevertebral soft tissues and the C1-C2 interval are intact. No pneumothorax. Mild facet degenerative changes throughout the majority cervical spine. Mild disc sp amilcar narrowing at C3-C4. Moderate disc space narrowing and small endplate osteophytes at C4-C5 and C5- C6. There is mild central canal and bilateral neural foraminal narrowing at these levels. This is bet ter appreciated on the prior spine MRI. Straightening of the cervical spine. IMPRESSION: 1. No fractures within the cervical spine. 2. Degenerative changes as described above. This is similar to the prior study. ACT 112: Negative or not required by law. Electronically signed by: Vijay Vega M.D. 06/18/2023 1:37 PM
--- NOTE | 2023-06-18 15:35 | Emergency Department Note ---
Impression & Plan Cervicalgia, Hypertension, Degenerative disc disease, cervical, Nausea & vomiting, Hyperglycemia ED Provider Note NAME: SHIRA CUNNINGHAM AGE: 78 SEX: Female INFORMANT: Patient ED PROVIDER(S): Cesar Hoang MD CHIEF COMPLAINT: Neck pain PLAN: Disposition: Admitted Outpatient prescription management: none Referral: None MEDICAL DECISION MAKING: Patient presented because of severe neck pain. She has a known history of degenerative cervical disc disease. Despite medications at home and recent steroid use she had exacerbation of symptoms. Patient was vomiting. She was unable to take her morning medications. Her blood pressure was severely elevated. She also had hyperglycemia. Patient had an IV established and blood work obtained. She had sinus tachycardia noted on ECG. Her CBC and chemistry panels were unremarkable except for significant hyperglycemia. No evidence of DKA. Patient's LFTs and troponin were negative. Chest x-ray was negative. Patient did receive IV Dilaudid and Zofran for symptom control. She did require several doses of Dilaudid. She was still having moderate neck pain with movement. CT imaging was performed and showed significant degenerative changes. No acute fracture. Patient lives alone and is having significant difficulty getting around. She was treated with IV insulin and was given her morning medications. She was able to keep these down and this did help control her blood pressure. Her blood sugar improved as well. Family was present and I discussed the findings. Given her significant pain issues and degenerative changes with difficulty managing at home treatment options were discussed. Family and patient requesting admission and this seems very reasonable given her level of pain and lack of response with conservative management at home. They are also requesting pain management consultation. [facility], Dr. Archer. Case discussed and diagnostics were reviewed. Patient was evaluated in the ER and admitted for further management. Care/management discussed with: Discussed with business transformation manager Level of care consideration(s): After review of the information above and other included data, I feel the patient requires furtherance of care and admission for further management. Triage Nursing notes: reviewed and agree them. Vital Signs: reviewed and remarkable for severe hypertension Additional History obtained from: none Chronic Medical/Social Conditions affecting care: Degenerative disc disease, CAD, diabetes Prior/ Outside/ External records reviewed: Prior hospitalization record reviewed regarding her recent admission for cervicalgia as well as primary care records reviewed for hospital follow-up. Differential Diagnosis: Cervical strain, fracture, cervical disc disease, lymphadenitis, meningitis, tumor, arterial dissection, thyroiditis, parotitis, mastoiditis, neurologic, cardiovascular, as well as other pathologies. Diagnostics, independently interpreted by me: ECG: Twelve-lead ECG with sinus tachycardia 112 bpm. Poor R wave progression. No ST elevation. Cardiac Monitoring: Cardiac monitoring ordered by me: The patient was placed on continuous cardiac monitoring and observed. It revealed a normal sinus rhythm at 82 beats per minute without ectopy or evidence of dysrhythmia. Medical decision rules: none Imaging studies: Chest x-ray. Findings: A chest x-ray was performed and revealed no pneumothorax, effusion, infiltrate, pulmonary edema, free air under the diaphragm, or wide mediastinum. Impression: No acute disease. CT scan of the cervical spine reveals degenerative changes without evidence of acute fracture or dislocation. I refer you to the EMR for further details. HPI: 78 year old Female arrives for evaluation of severe neck pain. She notes its mostly on the left side. Patient has had this problem for several months but it acutely worsened over the last few days. Patient had been in the hospital recently for the same. She is also been followed up with her primary doctor. She had recently been prescribed prednisone about 2 weeks ago. She notes her PCP was reluctant to give her any more prednisone due to her hyperglycemia. Patient has been having trouble with her blood sugars becoming elevated. Over the last few days she has had nausea and vomiting. She has been unable to keep down her daily medications including her blood pressure medications. Due to severity of symptoms, the vomiting, and inability to function at home the patient called EMS and was brought to the emergency department for evaluation. She was given Zofran prehospital which helped somewhat with the nausea and vomiting. Patient reports her pain is a 10 out of 10. Worse with movement. Patient notes pending referrals to pain management as well as spine. patient denies any trauma or new injury. Pt denies LOC, headache, fevers, chills, diaphoresis, visual changes, chest pain, breathing difficulties, nausea, vomiting, abdominal pain, back pain, melena, hematochezia, urinary symptoms, numbness, weakness, lymphadenopathy, rash, or other complaints. PAST MEDICAL HISTORY: See Below, degenerative disc disease, diabetes, CAD PAST SURGICAL HISTORY: See Below, SOCIAL HISTORY: See Below, lives alone HOME MEDICATIONS: See Below ALLERGIES: See Below VITALS: See Below PHYSICAL EXAMINATION: GENERAL: Awake, alert, very uncomfortable-appearing, in moderate distress HENT: Normocephalic, atraumatic. Oropharynx unremarkable. EYES: Normal conjunctiva. Sclera non-icteric. NECK: Inspection normal. Palpation reveals the left side to be mildly tender. Range of motion limited secondary to pain. No masses. RESPIRATORY: Clear to auscultation. No wheezes. No rales. Normal respiratory effort. CARDIAC: Normal rate. Normal rhythm. No murmurs. No rubs. Extremities warm and well perfused. Pulses equal. No JVD. GI: Soft, non-distended. No tenderness to palpation. No rebound or guarding. No masses. RECTAL: Deferred. MUSCULOSKELETAL: Atraumatic. Chest examination reveals no tenderness. The back is symmetrical on inspection without obvious abnormality. There is no CVA tenderness to palpation. No joint edema. LOWER EXTREMITIES: Calves are equal size bilaterally and non-tender. No edema. No discoloration. NEURO: Normal sensorium. No sensory or motor deficits noted. SKIN: No rash or jaundice noted. PROCEDURES: none CRITICAL CARE: none OBSERVATION NOTE: none Past Med/Surg History Medical History Abrasion Accelerated essential hypertension Acute hyperglycemia Acute kidney injury Acute neck pain Acute non-ST elevation myocardial infarction (NSTEMI) Asymptomatic bacteriuria Back pain Mckeon esophagus CAD (coronary artery disease) Cervical pain (neck) Chest pain Chest pain Chest pain Chronic pain syndrome COVID Depression Diabetes mellitus, type 2 Diabetic gastroparesis Diabetic peripheral neuropathy Dyslipidemia Edema Elevated troponin Elevated troponin Fall Folic acid deficiency GERD without esophagitis History of COVID-19 Hyperglycemia due to type 2 diabetes mellitus Hyperosmolar hyperglycemic state (HHS) Hypotension Hypotension IBS (irritable bowel syndrome) Lumbar spondylosis Myocardial Infarction Type 2 diabetes mellitus with chronic kidney disease Vitamin B12 deficiency Vomiting Surgical History History of cardiac cath History of cataract surgery History of cholecystectomy History of colonoscopy with polypectomy History of esophageal dilatation History of esophagogastroduodenoscopy (EGD) History of lumbar spinal fusion History of tooth extraction History of total hysterectomy with bilateral salpingo-oophorectomy (BSO) History of total right knee replacement (TKR) S/P coronary artery stent placement Status post trigger finger release Family History Brother Myocardial infarction Anxiety Heart disease Hypertension Cancer Sister Family history of reaction to anesthesia difficulty waking Hypertension Heart disease Myocardial infarction Anxiety Cancer Diabetes Father Anxiety Heart disease Hypertension Mother Anxiety Hypertension Heart disease Unknown Cancer skin, GI Denies family history of Ovarian cancer Prostate cancer Breast cancer Colorectal cancer Stroke Social History Smoking Status: Former smoker Tobacco Type: Cigarettes Age Started Using Tobacco: 18; Age Quit Using Tobacco: 57; Second Hand Exposure: No; Do You Dip or Chew Tobacco: No; Hx Alcohol Use: No Hx Substance Use: No Preferred Language: Swiss Communication Ability: Effective Visual Impairment: Limited Hearing Ability: Normal Customer Support Advisor Required: No Beliefs That Will Affect Care: None marital status: / Current Living Situation: Alone Current Living Situation Comment: apartment building current occupational status: retired and disabled How many Children do You have: 3 Feels Safe at Home: Yes Childhood Exposure to Second-Hand Smoke: No caffeine: Yes (drinks coffee, diet pepsi occasionally ) Dental Care, Regularly: No Physical Activity Frequency: Does not Exercise Seatbelt Use: always Sunscreen Use: No Assistive Devices: Walker Allergies Allergies Allergy/AdvReac Type Severity Reaction Status Date / Time cephalexin Allergy Intermediate Rash and Verified 06/18/23 15:28 itchiness Cephalosporins Allergy Intermediate Rash and Verified 06/18/23 15:28 itchiness Sulfa (Sulfonamide Allergy Intermediate Hives Verified 06/18/23 15:28 Antibiotics) Home Meds Home Medications Medication Instructions Recorded Confirmed linaclotide 145 mcg capsule 145 mcg PO QAM PRN Constipation 04/05/19 06/18/23 (Linzess) aspirin 81 mg tablet,delayed 81 mg PO QAM 10/24/21 06/18/23 release Vitamin B 12 Cypo Value 200+20 1,000 mcg PO DAILY 03/25/23 06/18/23 buspirone 10 mg tablet 10 mg PO TID 03/25/23 06/18/23 famotidine 20 mg tablet 20 mg PO BID 03/25/23 06/18/23 isosorbide mononitrate 30 mg 30 mg PO QAM 03/25/23 06/18/23 tablet,extended release 24 hr lisinopril 10 mg tablet 10 mg PO QAM 05/14/23 06/18/23 ergocalciferol (vitamin D2) 1,250 50,000 unit PO WK 06/18/23 06/18/23 mcg (50,000 unit) capsule folic acid 1 mg tablet 1 mg PO QAM 06/18/23 06/18/23 insulin aspart U-100 100 unit/mL 20 unit subcut TID 06/18/23 06/18/23 (3 mL) subcutaneous pen (Novolog FlexPen U-100 Insulin aspart) insulin degludec 100 unit/mL (3 20 unit subcut QPM 06/18/23 06/18/23 mL) subcutaneous pen (Tresiba FlexTouch U-100 insulin) Previous Rx's Medication Instructions Recorded albuterol sulfate 90 mcg/actuation 2 inha inhalation QID PRN 01/10/22 aerosol inhaler shortness of breath or wheezing #1 g fluticasone fur. 100 mcg-umeclid 1 inh inhalation DAILY #28 ea 02/11/22 62.5 mcg-vilant 25 mcg inhalat.powder (Trelegy Ellipta) alirocumab 75 mg/mL subcutaneous 75 mg subcut Q14D #2 mL 05/21/22 pen injector (Praluent Pen) gabapentin 100 mg capsule 100 mg PO HS #90 caps 09/17/22 duloxetine 30 mg capsule,delayed 30 mg PO QAM #90 caps 09/18/22 release ezetimibe 10 mg tablet (Zetia) 10 mg PO QAM #90 tabs 09/18/22 metformin 500 mg tablet 1,000 mg (2 x 500 mg) PO BID #360 09/18/22 tabs metoprolol succinate 100 mg 100 mg PO QAM #90 tabs 09/18/22 tablet,extended release 24 hr ondansetron HCl 4 mg tablet 4 mg PO Q8H PRN nausea and 09/18/22 vomiting #30 tabs pantoprazole 40 mg tablet,delayed 40 mg PO BID #180 tabs 09/18/22 release rosuvastatin 40 mg tablet 40 mg PO QAM #90 tabs 09/18/22 meclizine 25 mg tablet 25 mg PO BID PRN dizziness #30 tabs 10/05/22 nitroglycerin 0.4 mg sublingual 0.4 mg sublingual UD PRN Chest 11/06/22 tablet (Nitrostat) Pain #1 btl diclofenac sodium 1 % topical gel 2 g topical QID PRN Pain #100 grams 02/04/23 (Arthritis Pain (diclofenac)) lidocaine 5 % topical patch 1 patch topical DAILY PRN pain #15 03/30/23 (Lidoderm) ea metaxalone 400 mg tablet 400 mg PO HS PRN muscle pain #10 04/06/23 tabs tramadol 50 mg tablet 50 mg PO HS PRN pain #20 tabs 05/05/23 Results & Data (ED) Vital Signs Vital Signs - 24 hr 06/18/23 10:26 06/18/23 10:41 06/18/23 10:42 Temperature 36.7 C Temperature Source Oral Pulse Rate 112 H 100 H Pulse Rate [Apical] 100 H Pulse Rate from SpO2 Sensor 100 H Pulse Rhythm Pulse Rhythm [Apical] Pulse Strength [Apical] Respiratory Rate 19 17 Respiratory Effort / Characteristics Non-Labored Respiratory Depth Normal Respiratory Pattern Blood Pressure 226/165 H Blood Pressure [Right Arm] Blood Pressure Mean 185 Blood Pressure Mean [Right Arm] Blood Pressure Position [Right Arm] Pulse Oximetry 97 99 97 Oxygen Delivery Method Room Air Room Air Room Air Sepsis Recent Fever Within 48 Hours No Sepsis New/Unexplained Change in Mental Status No Sepsis Action Taken by Nursing No Action Required 06/18/23 10:48 06/18/23 10:50 06/18/23 11:00 Temperature Temperature Source Pulse Rate 99 H 104 H 101 H Pulse Rate [Apical] Pulse Rate from SpO2 Sensor 103 H Pulse Rhythm Pulse Rhythm [Apical] Pulse Strength [Apical] Respiratory Rate 22 19 Respiratory Effort / Characteristics Respiratory Depth Respiratory Pattern Blood Pressure Blood Pressure [Right Arm] Blood Pressure Mean Blood Pressure Mean [Right Arm] Blood Pressure Position [Right Arm] Pulse Oximetry 100 Oxygen Delivery Method Room Air Sepsis Recent Fever Within 48 Hours Sepsis New/Unexplained Change in Mental Status Sepsis Action Taken by Nursing 06/18/23 11:04 06/18/23 11:04 06/18/23 11:10 Temperature Temperature Source Pulse Rate 104 H 104 H 103 H Pulse Rate [Apical] Pulse Rate from SpO2 Sensor 103 H Pulse Rhythm Regular Pulse Rhythm [Apical] Pulse Strength [Apical] Respiratory Rate 22 20 15 Respiratory Effort / Characteristics Respiratory Depth Respiratory Pattern Blood Pressure 195/127 H Blood Pressure [Right Arm] Blood Pressure Mean 149 Blood Pressure Mean [Right Arm] Blood Pressure Position [Right Arm] Pulse Oximetry 98 98 Oxygen Delivery Method Room Air Sepsis Recent Fever Within 48 Hours Sepsis New/Unexplained Change in Mental Status Sepsis Action Taken by Nursing 06/18/23 11:20 06/18/23 11:25 06/18/23 11:30 Temperature Temperature Source Pulse Rate 106 H 102 H 100 H Pulse Rate [Apical] Pulse Rate from SpO2 Sensor 105 H 101 H 100 H Pulse Rhythm Pulse Rhythm [Apical] Pulse Strength [Apical] Respiratory Rate 18 19 14 Respiratory Effort / Characteristics Respiratory Depth Respiratory Pattern Blood Pressure 179/109 H Blood Pressure [Right Arm] Blood Pressure Mean 132 Blood Pressure Mean [Right Arm] Blood Pressure Position [Right Arm] Pulse Oximetry 96 97 97 Oxygen Delivery Method Sepsis Recent Fever Within 48 Hours Sepsis New/Unexplained Change in Mental Status Sepsis Action Taken by Nursing 06/18/23 11:40 06/18/23 11:40 06/18/23 11:50 Temperature Temperature Source Pulse Rate 95 H 94 H Pulse Rate [Apical] 95 H Pulse Rate from SpO2 Sensor 95 H 95 H Pulse Rhythm Pulse Rhythm [Apical] Regular Pulse Strength [Apical] Normal Respiratory Rate 19 13 14 Respiratory Effort / Characteristics Non-Labored Spontaneous Respiratory Depth Normal Respiratory Pattern Regular Blood Pressure Blood Pressure [Right Arm] 179/109 H Blood Pressure Mean Blood Pressure Mean [Right Arm] 132 Blood Pressure Position [Right Arm] Lying Pulse Oximetry 98 97 97 Oxygen Delivery Method Room Air Sepsis Recent Fever Within 48 Hours Sepsis New/Unexplained Change in Mental Status Sepsis Action Taken by Nursing 06/18/23 12:00 06/18/23 12:10 06/18/23 12:20 Temperature Temperature Source Pulse Rate 94 H 93 H 87 Pulse Rate [Apical] Pulse Rate from SpO2 Sensor 94 H 92 H 89 Pulse Rhythm Pulse Rhythm [Apical] Pulse Strength [Apical] Respiratory Rate 15 14 14 Respiratory Effort / Characteristics Respiratory Depth Respiratory Pattern Blood Pressure Blood Pressure [Right Arm] Blood Pressure Mean Blood Pressure Mean [Right Arm] Blood Pressure Position [Right Arm] Pulse Oximetry 97 97 96 Oxygen Delivery Method Room Air Room Air Sepsis Recent Fever Within 48 Hours Sepsis New/Unexplained Change in Mental Status Sepsis Action Taken by Nursing 06/18/23 12:26 06/18/23 12:30 06/18/23 12:40 Temperature Temperature Source Pulse Rate 99 H 88 86 Pulse Rate [Apical] Pulse Rate from SpO2 Sensor 99 H 88 87 Pulse Rhythm Pulse Rhythm [Apical] Pulse Strength [Apical] Respiratory Rate 15 13 15 Respiratory Effort / Characteristics Respiratory Depth Respiratory Pattern Blood Pressure 166/113 H Blood Pressure [Right Arm] Blood Pressure Mean 130 Blood Pressure Mean [Right Arm] Blood Pressure Position [Right Arm] Pulse Oximetry 98 96 98 Oxygen Delivery Method Room Air Room Air Room Air Sepsis Recent Fever Within 48 Hours Sepsis New/Unexplained Change in Mental Status Sepsis Action Taken by Nursing 06/18/23 12:50 06/18/23 13:04 06/18/23 13:10 Temperature Temperature Source Pulse Rate 99 H 113 H 97 H Pulse Rate [Apical] Pulse Rate from SpO2 Sensor 100 H 100 H 99 H Pulse Rhythm Pulse Rhythm [Apical] Pulse Strength [Apical] Respiratory Rate 13 15 16 Respiratory Effort / Characteristics Respiratory Depth Respiratory Pattern Blood Pressure 170/107 H Blood Pressure [Right Arm] Blood Pressure Mean 128 Blood Pressure Mean [Right Arm] Blood Pressure Position [Right Arm] Pulse Oximetry 98 99 96 Oxygen Delivery Method Room Air Room Air Room Air Sepsis Recent Fever Within 48 Hours Sepsis New/Unexplained Change in Mental Status Sepsis Action Taken by Nursing 06/18/23 13:20 06/18/23 13:30 06/18/23 13:40 Temperature Temperature Source Pulse Rate 89 81 81 Pulse Rate [Apical] Pulse Rate from SpO2 Sensor 87 81 81 Pulse Rhythm Pulse Rhythm [Apical] Pulse Strength [Apical] Respiratory Rate 19 22 16 Respiratory Effort / Characteristics Respiratory Depth Respiratory Pattern Blood Pressure Blood Pressure [Right Arm] Blood Pressure Mean Blood Pressure Mean [Right Arm] Blood Pressure Position [Right Arm] Pulse Oximetry 96 94 98 Oxygen Delivery Method Room Air Sepsis Recent Fever Within 48 Hours Sepsis New/Unexplained Change in Mental Status Sepsis Action Taken by Nursing 06/18/23 13:50 06/18/23 14:00 06/18/23 14:10 Temperature Temperature Source Pulse Rate 79 76 74 Pulse Rate [Apical] Pulse Rate from SpO2 Sensor 78 76 75 Pulse Rhythm Pulse Rhythm [Apical] Pulse Strength [Apical] Respiratory Rate 22 19 12 Respiratory Effort / Characteristics Respiratory Depth Respiratory Pattern Blood Pressure Blood Pressure [Right Arm] Blood Pressure Mean Blood Pressure Mean [Right Arm] Blood Pressure Position [Right Arm] Pulse Oximetry 96 96 96 Oxygen Delivery Method Room Air Sepsis Recent Fever Within 48 Hours Sepsis New/Unexplained Change in Mental Status Sepsis Action Taken by Nursing 06/18/23 14:20 06/18/23 14:29 06/18/23 14:30 Temperature Temperature Source Pulse Rate 74 75 Pulse Rate [Apical] 74 Pulse Rate from SpO2 Sensor 75 75 Pulse Rhythm Pulse Rhythm [Apical] Regular Pulse Strength [Apical] Normal Respiratory Rate 15 20 15 Respiratory Effort / Characteristics Non-Labored Spontaneous Respiratory Depth Normal Respiratory Pattern Regular Blood Pressure 115/74 Blood Pressure [Right Arm] 115/74 Blood Pressure Mean 87 Blood Pressure Mean [Right Arm] 87 Blood Pressure Position [Right Arm] Lying Pulse Oximetry 97 96 97 Oxygen Delivery Method Room Air Room Air Sepsis Recent Fever Within 48 Hours Sepsis New/Unexplained Change in Mental Status Sepsis Action Taken by Nursing 06/18/23 14:40 06/18/23 14:50 06/18/23 14:57 Temperature Temperature Source Pulse Rate 79 81 82 Pulse Rate [Apical] Pulse Rate from SpO2 Sensor Pulse Rhythm Pulse Rhythm [Apical] Pulse Strength [Apical] Respiratory Rate 15 25 H Respiratory Effort / Characteristics Respiratory Depth Respiratory Pattern Blood Pressure Blood Pressure [Right Arm] Blood Pressure Mean Blood Pressure Mean [Right Arm] Blood Pressure Position [Right Arm] Pulse Oximetry 97 Oxygen Delivery Method Room Air Sepsis Recent Fever Within 48 Hours Sepsis New/Unexplained Change in Mental Status Sepsis Action Taken by Nursing Laboratory Data 06/18/23 10:58 06/18/23 10:58 Lab Results 06/18/23 06/18/23 Range/Units 10:58 14:27 WBC 7.83 (4.8-10.8) K/ul RBC 4.59 (4.20-5.40) M/uL Hgb 12.6 (12.0-16.0) g/dl Hct 37.4 (37.0-47.0) % MCV 81.5 (80.0-100.0) fL MCH 27.5 (25.0-34.0) pg MCHC 33.7 (32.0-36.0) g/dL RDW Std Deviation 42.8 (36.4-46.3) fL RDW Coeff of Tino 14.6 H (11.5-14.5) % Plt Count 289 (130-400) K/uL MPV 9.6 (9.4-12.4) fL Immature Gran % (Auto) 0.8 % Neut % (Auto) 69.6 % Lymph % (Auto) 22.0 % Steele % (Auto) 6.6 % Eos % (Auto) 0.4 % Baso % (Auto) 0.6 % Neut # (Auto) 5.45 (1.40-6.50) K/uL Lymph # (Auto) 1.72 (1.20-3.40) K/uL Steele # (Auto) 0.52 (0.11-0.59) K/uL Eos # (Auto) 0.03 (0.00-0.50) K/uL Baso # (Auto) 0.05 (0.00-0.20) K/uL Immature Gran # (Auto) 0.06 (0.01-0.20) K/uL Sodium 134 L (136-145) mmol/L Potassium 4.2 (3.5-5.1) mmol/L Chloride 101 (98-107) mmol/L Carbon Dioxide 26 (21-32) mmol/L Anion Gap 7 (3-11) BUN 17 (6-23) mg/dl Creatinine 0.80 (0.6-1.2) mg/dl Est Cr Clr Drug Dosing 57.2 ml/min Est GFR ( Amer) 83.0 ml/min Est GFR (Non-Af Amer) 71.6 ml/min BUN/Creatinine Ratio 21.3 H (10-20) Glucose 345 H* (70-99(Fasting)) mg/dl POC Glucose 279 H (70-99) mg/dl Calcium 10.5 H (8.6-10.3) mg/dl Magnesium 1.6 L (1.7-2.4) mg/dl Total Bilirubin 0.5 (0.2-1.0) mg/dl AST 10 L (13-39) U/L ALT 13 (7-52) U/L Alkaline Phosphatase 73 (34-104) U/L Troponin I High Sens 7.5 (0-14) pg/ml Total Protein 6.9 (6.0-8.3) gm/dl Albumin 3.7 (3.4-5.0) gm/dl Globulin 3.2 (2.5-4.0) gm/dl Albumin/Globulin Ratio 1.2 (0.9-2) TSH 2.054 (0.300-4.500) uIu/ml Administered Medications Hydromorphone HCl (Hydromorphone Inj 0.5 Mg/0.5 Ml Syr) 0.5 mg IV Q15M PRN PRN Reason: Pain Stop: 07/02/23 10:52 Last Admin: 06/18/23 15:17 Dose: 0.5 mg Documented By: DRAG OUT MAN Admin: 06/18/23 12:42 Dose: 0.5 mg Documented By: DRAG OUT MAN Admin: 06/18/23 11:09 Dose: 0.5 mg Documented By: DRAG OUT MAN Discontinued Medications Sodium Chloride (Nss) 1,000 mls @ 999 mls/hr IV .Q1H1M LEON Stop: 06/18/23 11:45 Last Infusion: 06/18/23 12:32 Dose: Infused Documented By: DRAG OUT MAN Admin: 06/18/23 11:09 Dose: 999 mls/hr Documented By: DRAG OUT MAN Insulin Human Regular (Novolin-R Insulin Per Unit Charge) 5 units IV NOW STA Stop: 06/18/23 12:13 Last Admin: 06/18/23 12:42 Dose: 5 units Documented By: DRAG OUT MAN Co-signed By: YECENIA Isosorbide Mononitrate (Isosorbide Steele Extended Rel 30 Mg Tabcr) 30 mg PO NOW ONE Stop: 06/18/23 12:13 Last Admin: 06/18/23 12:41 Dose: 30 mg Documented By: DRAG OUT MAN Lisinopril (Lisinopril 10 Mg Tab) 10 mg PO NOW STA Stop: 06/18/23 12:12 Last Admin: 06/18/23 12:41 Dose: 10 mg Documented By: DRAG OUT MAN Metoprolol Succinate (Metoprolol Succ 50mg Ext Rel Tab) 100 mg PO NOW STA Stop: 06/18/23 12:12 Last Admin: 06/18/23 12:42 Dose: 100 mg Documented By: DRAG OUT MAN Ondansetron HCl (Ondansetron Inj 2 Mg/Ml 2 Ml Vial) 4 mg IV NOW STA Stop: 06/18/23 10:40 Last Admin: 06/18/23 11:09 Dose: 4 mg Documented By: DRAG OUT MAN Imaging Data Radiologist's Impression: Chest X-Ray 06/18/23 10:40 XR chest 1V portable CLINICAL HISTORY: weakness COMPARISON STUDY: Chest radiograph May 14, 2023. Chest CT November 27, 2021. FINDINGS: Lung volumes are normal. Lungs are clear. There is no pneumothorax or pleural effusion. Cardiac size is normal. Mediastinal contours are normal. There is no evidence for pulmonary edema. IMPRESSION: No acute cardiopulmonary findings. ACT 112: Negative or not required by law. Electronically signed by: Jimmy Chavarria M.D. 06/18/2023 11:[address] 06/18/23 11:[address] DOSE: 477.03 mGy.cm HISTORY: severe non-traumatic neck pain TECHNIQUE: Multiaxial CT images of the cervical spine were performed and reformatted in the sagittal and coronal plane without the use of contrast. A dose lowering technique was utilized adhering to the principles of ALARA. COMPARISON: Cervical spine CT 03/30/2023.. FINDINGS: No fractures. No subluxation. Prevertebral soft tissues and the C1-C2 interval are intact. No pneumothorax. Mild facet degenerative changes throughout the majority cervical spine. Mild disc space narrowing at C3-C4. Moderate disc space narrowing and small endplate osteophytes at C4-C5 and C5-C6. There is mild central canal and bilateral neural foraminal narrowing at these levels. This is better appreciated on the prior spine MRI. Straightening of the cervical spine. IMPRESSION: 1. No fractures within the cervical spine. 2. Degenerative changes as described above. This is similar to the prior study. ACT 112: Negative or not required by law. Electronically signed by: Vijay Vega M.D. 06/18/2023 1:37 PM Discharge Plan Visit Data Chief Complaint: Neck Injury/Pain ED Provider: Cesar Hoang Discharge Problem: Cervicalgia, Hypertension, Degenerative disc disease, cervical, Nausea & vomiting, Hyperglycemia Forms Stand Alone Forms: [facility] [employer] Prescriptions Prescriptions: No Action meclizine 25 mg tablet 25 mg PO BID PRN (Reason: dizziness) Qty: 30 0RF nitroglycerin [Nitrostat] 0.4 mg tablet, sublingual 0.4 mg Sublingual UD PRN (Reason: Chest Pain) Qty: 1 3RF metaxalone 400 mg tablet 400 mg PO HS PRN (Reason: muscle pain) Qty: 10 0RF Praluent Pen 75 mg/mL pen injector 75 mg subcut Q14D Qty: 2 11RF Rx Instructions: PER PT "A COUPLE OF DAYS AGO". diclofenac sodium [Arthritis Pain (diclofenac)] 1 % gel 2 g topical QID PRN (Reason: Pain) Qty: 100 2RF Trelegy Ellipta 100-62.5-25 mcg blister with device 1 inh inhalation DAILY Qty: 28 11RF Rx Instructions: She was instructed to rinse mouth thoroughly after each dose. Linzess 145 mcg capsule 145 mcg PO QAM PRN (Reason: Constipation) Patient Comments: Take 30 minutes prior to first meal of the day. Do Not open or Crush capsule gabapentin 100 mg capsule 100 mg PO HS Qty: 90 3RF duloxetine 30 mg capsule,delayed release(DR/EC) 30 mg PO QAM Qty: 90 3RF ezetimibe [Zetia] 10 mg tablet 10 mg PO QAM Qty: 90 3RF metformin 500 mg tablet 1,000 mg PO BID Qty: 360 3RF metoprolol succinate 100 mg tablet extended release 24 hr 100 mg PO QAM Qty: 90 3RF ondansetron HCl 4 mg tablet 4 mg PO Q8H PRN (Reason: nausea and vomiting) Qty: 30 0RF pantoprazole 40 mg tablet,delayed release (DR/EC) 40 mg PO BID Qty: 180 3RF Rx Instructions: TAKE 1 TABLET BY MOUTH TWICE A DAY rosuvastatin 40 mg tablet 40 mg PO QAM Qty: 90 3RF tramadol 50 mg tablet 50 mg PO HS PRN (Reason: pain) Qty: 20 0RF folic acid 1 mg tablet 1 mg PO QAM Rx Instructions: TAKE 1 TABLET BY MOUTH ONCE DAILY IN THE MORNING ergocalciferol (vitamin D2) 1,250 mcg (50,000 unit) capsule 50,000 unit PO WK Rx Instructions: SUNDAYS insulin aspart U-100 [Novolog FlexPen U-100 Insulin] 100 unit/mL (3 mL) insulin pen 20 unit subcut TID Rx Instructions: CHANGED LAST WEEK PER PT. with every meal. insulin degludec [Tresiba FlexTouch U-100] 100 unit/mL (3 mL) insulin pen 20 unit SQ QPM aspirin 81 mg Tablet,Delayed Release (Dr/Ec) 81 mg PO QAM albuterol sulfate 90 mcg/actuation HFA aerosol inhaler 2 inha INH QID PRN (Reason: shortness of breath or wheezing) Qty: 1 0RF Vitamin B 12 Cypo Value 200+20 1,000 mcg PO DAILY buspirone 10 mg tablet 10 mg PO TID Rx Instructions: TAKE ONE TABLET BY MOUTH THREE TIMES DAILY famotidine 20 mg tablet 20 mg PO BID Rx Instructions: PER DR 1ST isosorbide mononitrate 30 mg tablet extended release 24 hr 30 mg PO QAM lidocaine [Lidoderm] 5 % adhesive patch,medicated 1 patch TOP DAILY PRN (Reason: pain) Qty: 15 0RF Rx Instructions: leave on most painful area for up to 12 hrs lisinopril 10 mg tablet 10 mg PO QAM Referrals Referrals: Berkley Sen PA-C [Primary Care Provider] -
--- NOTE | 2023-06-18 16:06 | History & Physical Report ---
Date of Service June 18, 2023 Assessment & Plan (1) Degenerative disc disease, cervical: (2) Anxiety: (3) GERD (gastroesophageal reflux disease): (4) Uncontrolled type 2 diabetes mellitus with neurologic complication, with long-term current use of insulin: (5) Diabetic peripheral neuropathy: (6) Depression: (7) Dyslipidemia: (8) HTN (hypertension): (9) S/P coronary artery stent placement: Plan Cervical radiculopathy b/l - CT on admission without acute changes - MRI from prior visit 05/14/23 with degenerative disc disease in cervical spine; defer further imaging for now as pain is consistent with prior and no acute neurologic changes. - Pain Scale: Tramadol first line, followed by pain scale with Dilaudid. Scheduled Tylenol, lidocaine patch, heat. - consult pain management HTN, CAD -continue metoprolol, isosorbide mononitrate, ASA, lisinopril HLD -continue ezetimibe, rosuvastatin GERD -continue famotidine, protonix Depression -continue buspirone, duloxetine DM2 - Out Patient Regimen: Tresiba 20 units SQ qPM, Novolog 8 units SQ TID w/ meals, Metformin 1gm PO BID - Plan to start with Lantus 20 qHS, SSI with Carb Ratio 15 and Correction Factor 30 - continue gabapentin for peripheral neuropathy FENa: heart healthy carb consistent Code Status: DNR/DNI DVT PPX: Lovenox Dispo: med/surg History of Present Illness Primary Care Provider: Berkley Sen PA-C 78 year old female with a past medical history of cervical radiculopathy, anxiety, IBS, GERD, poorly managed DM2, HTN, CAD, CKD3, anemia presenting with worsening neck pain. She describes that pain as primarily in the cervical spine and it radiates down both her arms. Pain she is having today is similar to pain that she has had in the past, but has been getting worse over the past couple of days. Limiting the ROM in her neck and she hasn't been able to sleep well. She was treated with a prednisone taper 06/03- 06/09, has struggled with hyperglycemia with steroids in the past. Has been taking 1000mg Tylenol q8 for pain. She lives alone. Does have home health. Has family in the area; daughter, sister. Does note that she was having some nausea this morning, which has since resolved. ED Work Up Significant For: Glucose= 345, CT Cervical Spine largely uncharged from prior:Mild facet degenerative changes throughout the majority cervical spine. Mild disc space narrowing at C3-C4. Moderate disc space narrowing and small endplate osteophytes at C4-C5 and C5-C6. Allergies Allergy/AdvReac Type Severity Reaction Status Date / Time cephalexin Allergy Intermediate Rash and Verified 06/18/23 15:28 itchiness Cephalosporins Allergy Intermediate Rash and Verified 06/18/23 15:28 itchiness Sulfa (Sulfonamide Allergy Intermediate Hives Verified 06/18/23 15:28 Antibiotics) Home Medications Medication Instructions Recorded Confirmed Type linaclotide 145 mcg capsule 145 mcg PO QAM PRN Constipation 04/05/19 06/18/23 History (Linzess) aspirin 81 mg tablet,delayed 81 mg PO QAM 10/24/21 06/18/23 History release albuterol sulfate 90 mcg/actuation 2 inha inhalation QID PRN 01/10/22 06/18/23 Rx aerosol inhaler shortness of breath or wheezing #1 g fluticasone fur. 100 mcg-umeclid 1 inh inhalation DAILY #28 ea 02/11/22 06/18/23 Rx 62.5 mcg-vilant 25 mcg inhalat.powder (Trelegy Ellipta) alirocumab 75 mg/mL subcutaneous 75 mg subcut Q14D #2 mL 05/21/22 06/18/23 Rx pen injector (Praluent Pen) gabapentin 100 mg capsule 100 mg PO HS #90 caps 09/17/22 06/18/23 Rx duloxetine 30 mg capsule,delayed 30 mg PO QAM #90 caps 09/18/22 06/18/23 Rx release ezetimibe 10 mg tablet (Zetia) 10 mg PO QAM #90 tabs 09/18/22 06/18/23 Rx metformin 500 mg tablet 1,000 mg (2 x 500 mg) PO BID #360 09/18/22 06/18/23 Rx tabs metoprolol succinate 100 mg 100 mg PO QAM #90 tabs 09/18/22 06/18/23 Rx tablet,extended release 24 hr ondansetron HCl 4 mg tablet 4 mg PO Q8H PRN nausea and 09/18/22 06/18/23 Rx vomiting #30 tabs pantoprazole 40 mg tablet,delayed 40 mg PO BID #180 tabs 09/18/22 06/18/23 Rx release rosuvastatin 40 mg tablet 40 mg PO QAM #90 tabs 09/18/22 06/18/23 Rx meclizine 25 mg tablet 25 mg PO BID PRN dizziness #30 tabs 10/05/22 06/18/23 Rx nitroglycerin 0.4 mg sublingual 0.4 mg sublingual UD PRN Chest 11/06/22 06/18/23 Rx tablet (Nitrostat) Pain #1 btl diclofenac sodium 1 % topical gel 2 g topical QID PRN Pain #100 grams 02/04/23 06/18/23 Rx (Arthritis Pain (diclofenac)) Vitamin B 12 Cypo Value 200+20 1,000 mcg PO DAILY 03/25/23 06/18/23 History buspirone 10 mg tablet 10 mg PO TID 03/25/23 06/18/23 History famotidine 20 mg tablet 20 mg PO BID 03/25/23 06/18/23 History isosorbide mononitrate 30 mg 30 mg PO QAM 03/25/23 06/18/23 History tablet,extended release 24 hr lidocaine 5 % topical patch 1 patch topical DAILY PRN pain #15 03/30/23 06/18/23 Rx (Lidoderm) ea metaxalone 400 mg tablet 400 mg PO HS PRN muscle pain #10 04/06/23 06/18/23 Rx tabs tramadol 50 mg tablet 50 mg PO HS PRN pain #20 tabs 05/05/23 06/18/23 Rx lisinopril 10 mg tablet 10 mg PO QAM 05/14/23 06/18/23 History ergocalciferol (vitamin D2) 1,250 50,000 unit PO WK 06/18/23 06/18/23 History mcg (50,000 unit) capsule folic acid 1 mg tablet 1 mg PO QAM 06/18/23 06/18/23 History insulin aspart U-100 100 unit/mL 20 unit subcut TID 06/18/23 06/18/23 History (3 mL) subcutaneous pen (Novolog FlexPen U-100 Insulin aspart) insulin degludec 100 unit/mL (3 20 unit subcut QPM 06/18/23 06/18/23 History mL) subcutaneous pen (Tresiba FlexTouch U-100 insulin) Past Med/Surg History Medical History Abrasion Accelerated essential hypertension Acute hyperglycemia Acute kidney injury Acute neck pain Acute non-ST elevation myocardial infarction (NSTEMI) Asymptomatic bacteriuria Back pain [place]ke[place] esophagus CAD (coronary artery disease) Cervical pain (neck) Chest pain Chest pain Chest pain Chronic pain syndrome COVID Depression Diabetes mellitus, type 2 Diabetic gastroparesis Diabetic peripheral neuropathy Dyslipidemia Edema Elevated troponin Elevated troponin Fall Folic acid deficiency GERD without esophagitis History of COVID-19 Hyperglycemia due to type 2 diabetes mellitus Hyperosmolar hyperglycemic state (HHS) Hypotension Hypotension IBS (irritable bowel syndrome) Lumbar spondylosis Myocardial Infarction Type 2 diabetes mellitus with chronic kidney disease Vitamin B12 deficiency Vomiting Surgical History History of cardiac cath History of cataract surgery History of cholecystectomy History of colonoscopy with polypectomy History of esophageal dilatation History of esophagogastroduodenoscopy (EGD) History of lumbar spinal fusion History of tooth extraction History of total hysterectomy with bilateral salpingo-oophorectomy (BSO) History of total right knee replacement (TKR) S/P coronary artery stent placement Status post trigger finger release Family History Brother Myocardial infarction Anxiety Heart disease Hypertension Cancer Sister Family history of reaction to anesthesia difficulty waking Hypertension Heart disease Myocardial infarction Anxiety Cancer Diabetes Father Anxiety Heart disease Hypertension Mother Anxiety Hypertension Heart disease Unknown Cancer skin, GI Denies family history of Ovarian cancer Prostate cancer Breast cancer Colorectal cancer Stroke Social History Smoking Status: Never smoker Tobacco Type: Cigarettes Age Started Using Tobacco: 18; Age Quit Using Tobacco: 57; Second Hand Exposure: No; Do You Dip or Chew Tobacco: No; Hx Alcohol Use: No Hx Substance Use: No Preferred Language: [place] Communication Ability: Effective Visual Impairment: Limited Hearing Ability: Normal Print Manager Required: No Beliefs That Will Affect Care: None marital status: / Current Living Situation: Alone Current Living Situation Comment: apartment building current occupational status: retired and disabled How many Children do You have: 3 Other Information That Helps Us Care for You: No Feels Safe at Home: No Is there a partner from a previous relationship who is making you feel unsafe now?: No Any Concerns about Your Family Situation: No Would You Like to Speak to Someone About Your Situation: No Safety Concerns: Feels Safe At This Time Childhood Exposure to Second-Hand Smoke: No caffeine: Yes (drinks coffee, diet pepsi occasionally ) Dental Care, Regularly: No Physical Activity Frequency: Does not Exercise Seatbelt Use: always Sunscreen Use: No Assistive Devices: Walker Review of Systems Review of Systems: As per above Physical Exam Physical Exam: Constitutional: well-appearing, no acute distress HEENT: NCAT, no conjunctival injection CV: regular rhythm, no murmur appreciated, extremities well-perfused, no LE edema Resp: CTABL, no wheezes/rales/rhonchi appreciated, no increased work of breathing GI: soft, nondistended, nontender, BS normoactive MSK: no gross deformities appreciated. Tenderness and hypertonicity around cervical spine. Strength 5/5 upper and lower extremity. Sensations intact. ROM cervical spine limited due to pain. Skin: warm, dry, no rash appreciated Neuro: alert, oriented, no focal neurologic deficit appreciated Results & Data Results & Data Vital Signs (Past 12 Hours) Vital Signs Temp Pulse Pulse Resp BP BP Pulse Ox 06/18/23 14:57 82 06/18/23 14:50 81 25 H 97 06/18/23 14:40 79 15 06/18/23 14:30 75 15 115/74 97 06/18/23 14:29 74 20 115/74 96 06/18/23 14:20 74 15 97 06/18/23 14:10 74 12 96 06/18/23 14:00 76 19 96 06/18/23 13:50 79 22 96 06/18/23 13:40 81 16 98 06/18/23 13:30 81 22 94 06/18/23 13:20 89 19 96 06/18/23 13:10 97 H 16 96 06/18/23 13:04 113 H 15 170/107 H 99 06/18/23 12:50 99 H 13 98 06/18/23 12:40 86 15 98 06/18/23 12:30 88 13 96 06/18/23 12:26 99 H 15 166/113 H 98 06/18/23 12:20 87 14 96 06/18/23 12:10 93 H 14 97 06/18/23 12:00 94 H 15 97 06/18/23 11:50 94 H 14 97 06/18/23 11:40 95 H 13 97 06/18/23 11:40 95 H 19 179/109 H 98 06/18/23 11:30 100 H 14 97 06/18/23 11:25 102 H 19 179/109 H 97 06/18/23 11:20 106 H 18 96 06/18/23 11:10 103 H 15 98 06/18/23 11:04 104 H 20 195/127 H 06/18/23 11:04 104 H 22 98 06/18/23 11:00 101 H 19 06/18/23 10:50 104 H 22 100 06/18/23 10:48 99 H 06/18/23 10:42 100 H 17 97 06/18/23 10:41 100 H 99 06/18/23 10:26 36.7 C 112 H 19 226/165 H 97 O2 Del Method 06/18/23 14:57 06/18/23 14:50 Room Air 06/18/23 14:40 06/18/23 14:30 Room Air 06/18/23 14:29 Room Air 06/18/23 14:20 06/18/23 14:10 06/18/23 14:00 Room Air 06/18/23 13:50 06/18/23 13:40 06/18/23 13:30 06/18/23 13:20 Room Air 06/18/23 13:10 Room Air 06/18/23 13:04 Room Air 06/18/23 12:50 Room Air 06/18/23 12:40 Room Air 06/18/23 12:30 Room Air 06/18/23 12:26 Room Air 06/18/23 12:20 Room Air 06/18/23 12:10 Room Air 06/18/23 12:00 06/18/23 11:50 06/18/23 11:40 06/18/23 11:40 Room Air 06/18/23 11:30 06/18/23 11:25 06/18/23 11:20 06/18/23 11:10 06/18/23 11:04 06/18/23 11:04 Room Air 06/18/23 11:00 06/18/23 10:50 Room Air 06/18/23 10:48 06/18/23 10:42 Room Air 06/18/23 10:41 Room Air 06/18/23 10:26 Room Air Code Status & VTE Plan VTE Prophylaxis Plan VTE Prophylaxis will be ordered: Yes Supervising Physician Co-Signing Physician Notes I personally saw and examined the patient. I verified all hathaway points and agree with resident physician Dr Nancy Huitron, with the following exceptions and/or additions: 78 year old female presents to the ER with persistent cervical spine pain with radicular symptoms. Home health nurse actually advised her to come to the ER as lives alone and not coping at home. Rehab initially recommended last admission but improved on steroids therefore went home with home health. Getting progressively worse since discharge and off steroids. Was not taking any opiates at home. O/E A&Ox3, HS RRR, no murmurs, Chest CTAB, Abdo SNT, pain on palpation of upper trapezius muscle b/l but especially on right side. Machine Maintenance strength 4/5 on left, 5/5 right. Lateral neck movements painful. Unable to reproduce radicular pain A/P Cervical radiculopathy - improvement with steroids previously, would hold off repeating course currently given significant hyperglycemia with this and no longer acute. No tramadol or opiates given since April - therefore will use tramadol initially to see whether this alone can help her symptoms. Seen by ortho spine last admission. Not seen by pain management - will consult to se on Wednesday. PT/OT. Consider placement on discharge. Resident Activity Tracking Resident Involvement: Resident Care Provided Care Provided: Adult Hospital Medicine (3) GERD (gastroesophageal reflux disease) Esophagitis presence: without esophagitis Qualified Code(s): K21.9 - Gastro- esophageal reflux disease without esophagitis (6) Depression Active/Remission status: currently active Depression Type: major depressive disorder Major depression episode severity: mild Major depression recurrence: recurrent Qualified Code(s): F33.0 - Major depressive disorder, recurrent, mild (8) HTN (hypertension) Hypertension type: primary hypertension Qualified Code(s): I10 - Essential (primary) hypertension
[2023-06-18] MEDS ORDERED: traMADol HCL 50 MG TABLET PO PRN (16:34)
[2023-06-18] MEDS ORDERED: HYDROmorphone INJ 0.5 MG/0.5 ML SYR IV PRN ×2 (16:37)
[2023-06-18] MEDS ORDERED: LIDOCAINE 5% 1 PATCH TD STA (16:48)
[2023-06-18] MEDS ORDERED: LIDOCAINE 5% 1 PATCH TD ONE (19:05)
[2023-06-18] MEDS: ACETAMINOPHEN 500 MG TAB PO SCH (19:09)
[2023-06-18] MEDS ORDERED: GLUCAGON FOR INJ 1 MG VIAL SQ PRN (19:55)
[2023-06-18] MEDS ORDERED: GLUCOSE 40% GEL 15 GM TUBE PO PRN (19:55)
[2023-06-18] MEDS ORDERED: DEXTROSE 50% 50 ML SYRINGE IV PRN (19:55)
[2023-06-18] MEDS ORDERED: GLUCOSE 10 TAB/TUBE PO PRN (19:55)
[2023-06-18] MEDS ORDERED: CARBOHYDRATES FOR HYPOGLYCEMIA PO PRN (19:55)
[2023-06-18] MEDS ORDERED: ONDANSETRON INJ 2 MG/ML 2 ML VIAL IV PRN (20:28)
[2023-06-18] MEDS: INSULIN ASPART PER UNIT CHARGE SC SCH (20:33)
--- NOTE | 2023-06-18 20:34 | Electrocardiogram Report ---
Test Reason : Blood Pressure : / mmHG Vent. Rate : 112 BPM Atrial Rate : 112 BPM P-R Int : 150 ms QRS Dur : 070 ms QT Int : 310 ms P-R-T Axes : 000 036 118 degrees QTc Int : 423 ms Sinus tachycardia Abnormal ECG When compared with ECG of 14-MAY-2023 11:39, No significant change was found Confirmed by Matty Pinto ([id number]) on 06/18/2023 8:34:00 PM Referred By: REFERRED SELF Confirmed By:Logan Pinto
[2023-06-18] MEDS ORDERED: LANTUS PER UNIT CHARGE SQ SCH (21:00)
[2023-06-18] MEDS ORDERED: GABAPENTIN 100 MG CAP PO SCH (21:00)
[2023-06-18] MEDS: PANTOprazole 40 MG TAB PO SCH (21:37)
[2023-06-18] MEDS: busPIRone 5 MG TAB PO SCH (21:37)
[2023-06-18] MEDS: FAMOTIDINE 20 MG TAB PO SCH (21:37)
[2023-06-19] MEDS: ACETAMINOPHEN 500 MG TAB PO SCH ×3 (01:25→17:40)
[2023-06-19 07:42] LABS: Basophils # (auto) 0.04 K/uL (0.00-0.20); Basophils % (auto) 0.6 %; Eosinophils # (auto) 0.06 K/uL (0.00-0.50); Hematocrit (blood only) 34.8 % (37.0-47.0); Hemoglobin 11.3 g/dl (12.0-16.0); Immature Granulocytes # (auto) 0.12 K/uL (0.01-0.20); Immature Granulocytes % (auto) 1.9 %; Lymphocytes # (auto) 2.13 K/uL (1.20-3.40); Lymphocytes % (auto) 34.1 %; Mean Corpuscular Hemoglobin 27.2 pg (25.0-34.0); Mean Corpuscular Hgb Conc 32.5 g/dL (32.0-36.0); Mean Corpuscular Volume 83.9 fL (80.0-100.0); Mean Platelet Volume 9.8 fL (9.4-12.4); Monocytes # (auto) 0.56 K/uL (0.11-0.59); Neutrophils # (auto) 3.34 K/uL (1.40-6.50); Neutrophils % (auto) 53.4 %; Platelet Count 238 K/uL (130-400); RDW Coefficient of Variation 14.9 % (11.5-14.5); RDW Standard Deviation 45.4 fL (36.4-46.3); Red Blood Count 4.15 M/uL (4.20-5.40); White Blood Count 6.25 K/ul (4.8-10.8)
[2023-06-19 08:10] LABS: Albumin Globulin Ratio 1.2 (0.9-2); Albumin Level 3.1 gm/dl (3.4-5.0); BUN Creatinine Ratio 25.4 (10-20); Bilirubin,Total 0.5 mg/dl (0.2-1.0); Creatinine Clr Calc Pharmacy 62.6 ml/min; Est GFR (African American) 95.9 ml/min; Est GFR (Non-African American) 82.7 ml/min; Globulin 2.5 gm/dl (2.5-4.0); Magnesium 1.5 mg/dl (1.7-2.4); Phosphorus 3.8 mg/dl (2.5-4.9); Potassium 4.2 mmol/L (3.5-5.1); Total Protein 5.6 gm/dl (6.0-8.3)
--- NOTE | 2023-06-19 08:26 | Hospitalist Progress Note ---
Date of Service June 19, 2023 Assessment & Plan (1) Degenerative disc disease, cervical: Plan: Cervical radiculopathy b/l UE w/ decreased ability to lift arms/pain from her neck w/ decreased ability/ROM at that site No falls/trauma reported but difficulty w/ ADLs/preparing food for herself CT cervical spine without acute changes. * Notes no fractures. No subluxation. Prevertebral soft tissues and the C1-C2 interval are intact. No pneumothorax. Mild facet degenerative changes throughout the majority cervical spine. Mild disc space narrowing at C3-C4. Moderate disc space narrowing and small endplate osteophytes at C4-C5 and C5- C6. There is mild central canal and bilateral neural foraminal narrowing at these levels. This is better appreciated on the prior spine MRI. Straightening of the cervical spine. MRI from prior visit 05/14/23 with degenerative disc disease in cervical spine; defer further imaging for now as pain is consistent with prior and no acute neurologic changes. To note, patient just discharged on 05/19 on prednisone taper for cervical radiculopathy. Was seen by Dr Cheung during that time and did not feel surgery was indicated as presentation was not entirely consistent with cervical stenosis and radiculopathy, checked ESR/CRP for inflammatory disease work-up (CRP mild elevation in 2s, ESR wnl). Ultimately was for rehab but made improvements and went home on taper w/ HH services She notes her PCP did get another prednisone taper but did not want to continue. I did discuss that is only for short term management Pt notes she had EMG testing and unclear cause. ?underlying carpel tunnel/ cubital tunnel w/ neuropathy w/ her uncontrolled diabetes Pain control: Tramadol first line, followed by pain scale with Dilaudid. Scheduled Tylenol, lidocaine patch, heat. Will discuss about IV steroids w/ supervising provider given prior relief but would consult glycemic management given her DM w/ A1c>11 Consulted pain management , confirmed w/ Dr Patel will not be seen until Wednesday Vitamin D level checked (med list w/ ergocalciferol weekly, has been taking) --> LOW 12.8, restarted while inpatient. Ca 10.5 on admission but prior lows. Can check PTH w/ AM labs for review Monitor, possible steroids tomorrow to bridge until seen by pain management if not having significant relief w/ above Is on gabapentin 100mg HS, could consider increasing this for neuropathic pain as well (CrCl 62, can increase if patient agreeable) Will plan to increase her gabapentin 100mg TID (cancel 100mg HS order) for neuropathic pain Will start solumedrol 40mg q8h, glycemic consulted given A1c >11 and risk for hyperglycemia (2) Uncontrolled type 2 diabetes mellitus with neurologic complication, with long-term current use of insulin: Plan: A1c 11.5 in April to be on novolog 20u TID (although HPI states taking 8u TID) tresiba 20u HS, 1gm metformin BID at home BSG 345 on admission, had not taken her home medications Given glargine 20u HS last evening, given 5u IV insulin and continued her glargine 20u HS w/ sliding scale BSGs improved today 141-182 and will monitor Pharmacy consult for glycemic management as likely will be providing some steroids after discussion w/ supervising provider (3) S/P coronary artery stent placement: Plan: Hx CAD, HTN, HLD Hx CAD s/p PCI (LAD, Cx, RCA). Prior AR in past described as sharp substernal CP w/ radiation to LEFT arm She DENIES sensation similar to her prior MIs Notable BP 226/165 on arrival with reported nausea/vomiting and hyperglycemia, not able to take her AM medications. Given metoprolol 100mg PO x1, lisinopril 10mg x 1, isosorbide mononitrate continue metoprolol, isosorbide mononitrate, lisinopril, continue ezetimibe, rosuvastatin, ASA CT head negative, obtained for n/v/BP BP presently 115/70 (4) Diabetic peripheral neuropathy: Plan: uncontrolled diabetic, A1c 11.5, elevated BSGs on admission. Prior B12/folate deficiency and replacement (5) Anxiety: Plan: Anxiety & Depression -continue buspirone, duloxetine (also for neuropathy) (6) GERD (gastroesophageal reflux disease): Plan: Continue PPI BID, H2 BID Hx barretts/erosive esophagitis as well (7) Hyperglycemia: Plan: imrpoved (8) Cervicalgia: Plan: as above (9) Edema of left upper arm: Plan: check venous doppler heat/pain control (10) Hypomagnesemia: Plan: ?2nd to PPI use Mag 1.5 -- IV replacement ordered. Monitor on repeat. Consider PO supplementation given prior/frequent lows (11) Vitamin D deficiency: Plan: Prior Vit D level 12.5 in Sep 2022 On ergocalciferol 50,000 weekly, unclear if still taking this (12) Nausea & vomiting: Plan: reported nausea/vomiting night prior to admission, nothing further (13) HTN (hypertension): (14) Dyslipidemia: Plan DVT proph: Lovenox SQ while inpatient checking CT head to r/o other cause weakness given elevated BP/N/V prior to admit. Troponin was NOT elevated. Admission and Anticipated Discharge Date Admission Date: June 18, 2023 Supervising Physician Co-Signing Physician Notes The patient was not seen by me. The chart was reviewed. Case discussed with JAVI Woods. Agree with assessment and plan Subjective Eval this morning in 378-2. resting in bed, did get some sleep last night. Notes pain slightly improved compared to this morning and was only getting scheduled tylenol. Did get tramadol not too long ago and reports slightly improved, able to rotate neck slightly. Radiculopathy down both arms, worse on the left. Only able to lift up her arms at level of elbow. 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 She reports she had been doing poorly at home and worsened pain prompting her to come to the ER last evening. Had episode of nausea and associated vomiting. No blood reported, reports normal emesis of food. Pain to her left shoulder NOT similar to prior AR pain (she had 3 in 8 months in the past) Chronic LLE edema worse than the right at baseline sometimes. Notes she was doing well on steroids but once off has recurrence of symptoms. She notes she did get another steroid pack from [facility] in follow up but she won't give her anymore. Did discuss steroids not ideal alf and side effects especially with her diabetes. She is on PPI/pepcid at baseline for hx barretts, some issues w/ pain w/ swallowing at times but not at present. She notes she is trying to see about waiver program and assistance with meals as she is having increased difficulty at home preparing anything for herself given her dexterity. She notes she has had EMG/nerve testing done and they are not positive of cause. Pain management consultation to be undertaken on Wednesday. No fever/chills, increased frequency/burning with urination, abdominal pain. +BM this morning. No lightheaded/dizziness, palpitations reported. Noting to alert nursing of any chest pain/shortness of breath, visual symptoms given risk factors for stroke and elevated blood pressure on admission. Questions/concerns addressed at this time. Physical Exam Physical Exam: General: chronically ill appearing female sitting up in bed, NAD but reporting pain to neck/arms (slightly improved since tramadol use) HEENT: head atraumatic, normocephalic, tenderness to palpation paraspinal muscles, decreased ROM w/ rotation of the neck (reporting slightly improved movement compared to admission, lidocaine patch in place), mmm, trachea midline Resp: even/unlabored, no w/c/r, on room air CV: RRR, no significant mrg, trace pedal edema (slightly worse on her LLE compared to the right but reporting chronic) GI: +BS, soft/NT : no ramirez MSK/Neuro: decreased ROM of neck as above, decreased ability to lift arms off of bed above the level of the elbow, slightly decreased sensation to light touch, radicular symptoms down bilateral UE no facial droop/slurred speech, following commands as able slightly decreased ability to flex at the hip on the left compared to the right children's tutor nursery strength slightly decreased on the left compared to the right Psych: AOx3, cooperative and pleasant with exam Results & Data Results & Data Vital Signs (Past 12 Hours) Vital Signs Temp Pulse Pulse Pulse Resp BP BP 06/18/23 19:45 36.4 C L 78 18 141/79 H 06/18/23 19:01 62 06/18/23 18:20 63 14 06/18/23 18:13 72 15 114/71 06/18/23 18:10 60 9 L 06/18/23 18:10 63 19 114/71 06/18/23 18:00 62 7 L 06/18/23 17:50 64 12 06/18/23 17:40 67 15 06/18/23 17:30 66 17 06/18/23 17:20 68 16 06/18/23 17:10 64 10 L 06/18/23 17:00 67 13 06/18/23 16:50 65 14 06/18/23 16:40 70 10 L 06/18/23 16:30 66 11 L 06/18/23 16:20 67 15 06/18/23 16:10 80 18 06/18/23 16:00 72 12 06/18/23 15:50 72 14 06/18/23 15:40 76 17 06/18/23 15:30 83 13 06/18/23 15:20 70 17 06/18/23 15:10 79 24 06/18/23 15:00 117 H 17 138/90 06/18/23 14:57 82 06/18/23 14:50 81 25 H 06/18/23 14:40 79 15 06/18/23 14:30 75 15 115/74 06/18/23 14:29 74 20 115/74 06/18/23 14:20 74 15 06/18/23 14:10 74 12 06/18/23 14:00 76 19 06/18/23 13:50 79 22 06/18/23 13:40 81 16 06/18/23 13:30 81 22 06/18/23 13:20 89 19 06/18/23 13:10 97 H 16 06/18/23 13:04 113 H 15 170/107 H 06/18/23 12:50 99 H 13 06/18/23 12:40 86 15 06/18/23 12:30 88 13 06/18/23 12:26 99 H 15 166/113 H 06/18/23 12:20 87 14 06/18/23 12:10 93 H 14 06/18/23 12:00 94 H 15 06/18/23 11:50 94 H 14 06/18/23 11:40 95 H 13 06/18/23 11:40 95 H 19 179/109 H 06/18/23 11:30 100 H 14 06/18/23 11:25 102 H 19 179/109 H 06/18/23 11:20 106 H 18 06/18/23 11:10 103 H 15 06/18/23 11:04 104 H 20 195/127 H 06/18/23 11:04 104 H 22 06/18/23 11:00 101 H 19 06/18/23 10:50 104 H 22 06/18/23 10:48 99 H 06/18/23 10:42 100 H 17 06/18/23 10:41 100 H 06/18/23 10:26 36.7 C 112 H 19 226/165 H Pulse Ox O2 Del Method 11/03/23 19:45 97 Room Air 06/18/23 19:01 06/18/23 18:20 93 Room Air 06/18/23 18:13 96 Room Air 06/18/23 18:10 06/18/23 18:10 94 Room Air 06/18/23 18:00 06/18/23 17:50 06/18/23 17:40 06/18/23 17:30 06/18/23 17:20 06/18/23 17:10 06/18/23 17:00 06/18/23 16:50 06/18/23 16:40 06/18/23 16:30 06/18/23 16:20 06/18/23 16:10 06/18/23 16:00 06/18/23 15:50 06/18/23 15:40 06/18/23 15:30 06/18/23 15:20 06/18/23 15:10 06/18/23 15:00 06/18/23 14:57 06/18/23 14:50 97 Room Air 06/18/23 14:40 06/18/23 14:30 97 Room Air 06/18/23 14:29 96 Room Air 06/18/23 14:20 97 06/18/23 14:10 96 06/18/23 14:00 96 Room Air 06/18/23 13:50 96 06/18/23 13:40 98 06/18/23 13:30 94 06/18/23 13:20 96 Room Air 06/18/23 13:10 96 Room Air 06/18/23 13:04 99 Room Air 06/18/23 12:50 98 Room Air 06/18/23 12:40 98 Room Air 06/18/23 12:30 96 Room Air 06/18/23 12:26 98 Room Air 06/18/23 12:20 96 Room Air 06/18/23 12:10 97 Room Air 06/18/23 12:00 97 06/18/23 11:50 97 06/18/23 11:40 97 06/18/23 11:40 98 Room Air 06/18/23 11:30 97 06/18/23 11:25 97 06/18/23 11:20 96 06/18/23 11:10 98 06/18/23 11:04 06/18/23 11:04 98 Room Air 06/18/23 11:00 06/18/23 10:50 100 Room Air 06/18/23 10:48 06/18/23 10:42 97 Room Air 06/18/23 10:41 99 Room Air 06/18/23 10:26 97 Room Air Intake and Output 06/18/23 06/19/23 06/19/23 22:59 06:59 14:59 Intake Total 100 / 1100 Balance 100 / 1100 Intake: Oral 100 / 100 Other: Weight 68.5 kg Weight Measurement Method Standing Scale Laboratory Results 06/19/23 06/19/23 06/19/23 Range/Units 11:33 07:54 06:40 WBC 6.25 (4.8-10.8) K/ul RBC 4.15 L (4.20-5.40) M/uL Hgb 11.3 L (12.0-16.0) g/dl Hct 34.8 L (37.0-47.0) % MCV 83.9 (80.0-100.0) fL MCH 27.2 (25.0-34.0) pg MCHC 32.5 (32.0-36.0) g/dL RDW Std Deviation 45.4 (36.4-46.3) fL RDW Coeff of Tino 14.9 H (11.5-14.5) % Plt Count 238 (130-400) K/uL MPV 9.8 (9.4-12.4) fL Immature Gran % (Auto) 1.9 % Neut % (Auto) 53.4 % Lymph % (Auto) 34.1 % Lyman % (Auto) 9.0 % Eos % (Auto) 1.0 % Baso % (Auto) 0.6 % Neut # (Auto) 3.34 (1.40-6.50) K/uL Lymph # (Auto) 2.13 (1.20-3.40) K/uL Lyman # (Auto) 0.56 (0.11-0.59) K/uL Eos # (Auto) 0.06 (0.00-0.50) K/uL Baso # (Auto) 0.04 (0.00-0.20) K/uL Immature Gran # (Auto) 0.12 (0.01-0.20) K/uL Sodium 137 (136-145) mmol/L Potassium 4.2 (3.5-5.1) mmol/L Chloride 106 (98-107) mmol/L Carbon Dioxide 27 (21-32) mmol/L Anion Gap 4 (3-11) BUN 18 (6-23) mg/dl Creatinine 0.71 (0.6-1.2) mg/dl Est Cr Clr Drug Dosing 62.6 ml/min Est GFR ( Amer) 95.9 ml/min Est GFR (Non-Af Amer) 82.7 ml/min BUN/Creatinine Ratio 25.4 H (10-20) Glucose 136 H (70-99(Fasting)) mg/dl POC Glucose 182 H 130 H (70-99) mg/dl Calcium 9.0 (8.6-10.3) mg/dl Phosphorus 3.8 (2.5-4.9) mg/dl Magnesium 1.5 L (1.7-2.4) mg/dl Total Bilirubin 0.5 (0.2-1.0) mg/dl AST 8 L (13-39) U/L ALT 9 (7-52) U/L Alkaline Phosphatase 59 (34-104) U/L Total Protein 5.6 L (6.0-8.3) gm/dl Albumin 3.1 L (3.4-5.0) gm/dl Globulin 2.5 (2.5-4.0) gm/dl Albumin/Globulin Ratio 1.2 (0.9-2) 25-OH Vitamin D Total (30-100) ng/ml 06/19/23 06/18/23 06/18/23 Range/Units 02:03 20:20 18:14 WBC (4.8-10.8) K/ul RBC (4.20-5.40) M/uL Hgb (12.0-16.0) g/dl Hct (37.0-47.0) % MCV (80.0-100.0) fL MCH (25.0-34.0) pg MCHC (32.0-36.0) g/dL RDW Std Deviation (36.4-46.3) fL RDW Coeff of Tino (11.5-14.5) % Plt Count (130-400) K/uL MPV (9.4-12.4) fL Immature Gran % (Auto) % Neut % (Auto) % Lymph % (Auto) % Lyman % (Auto) % Eos % (Auto) % Baso % (Auto) % Neut # (Auto) (1.40-6.50) K/uL Lymph # (Auto) (1.20-3.40) K/uL Lyman # (Auto) (0.11-0.59) K/uL Eos # (Auto) (0.00-0.50) K/uL Baso # (Auto) (0.00-0.20) K/uL Immature Gran # (Auto) (0.01-0.20) K/uL Sodium (136-145) mmol/L Potassium (3.5-5.1) mmol/L Chloride (98-107) mmol/L Carbon Dioxide (21-32) mmol/L Anion Gap (3-11) BUN (6-23) mg/dl Creatinine (0.6-1.2) mg/dl Est Cr Clr Drug Dosing ml/min Est GFR ( Amer) ml/min Est GFR (Non-Af Amer) ml/min BUN/Creatinine Ratio (10-20) Glucose (70-99(Fasting)) mg/dl POC Glucose 141 H 335 H* 317 H* (70-99) mg/dl Calcium (8.6-10.3) mg/dl Phosphorus (2.5-4.9) mg/dl Magnesium (1.7-2.4) mg/dl Total Bilirubin (0.2-1.0) mg/dl AST (13-39) U/L ALT (7-52) U/L Alkaline Phosphatase (34-104) U/L Total Protein (6.0-8.3) gm/dl Albumin (3.4-5.0) gm/dl Globulin (2.5-4.0) gm/dl Albumin/Globulin Ratio (0.9-2) 25-OH Vitamin D Total (30-100) ng/ml 06/18/23 06/18/23 Range/Units 14:27 10:55 WBC (4.8-10.8) K/ul RBC (4.20-5.40) M/uL Hgb (12.0-16.0) g/dl Hct (37.0-47.0) % MCV (80.0-100.0) fL MCH (25.0-34.0) pg MCHC (32.0-36.0) g/dL RDW Std Deviation (36.4-46.3) fL RDW Coeff of Tino (11.5-14.5) % Plt Count (130-400) K/uL MPV (9.4-12.4) fL Immature Gran % (Auto) % Neut % (Auto) % Lymph % (Auto) % Lyman % (Auto) % Eos % (Auto) % Baso % (Auto) % Neut # (Auto) (1.40-6.50) K/uL Lymph # (Auto) (1.20-3.40) K/uL Lyman # (Auto) (0.11-0.59) K/uL Eos # (Auto) (0.00-0.50) K/uL Baso # (Auto) (0.00-0.20) K/uL Immature Gran # (Auto) (0.01-0.20) K/uL Sodium (136-145) mmol/L Potassium (3.5-5.1) mmol/L Chloride (98-107) mmol/L Carbon Dioxide (21-32) mmol/L Anion Gap (3-11) BUN (6-23) mg/dl Creatinine (0.6-1.2) mg/dl Est Cr Clr Drug Dosing ml/min Est GFR ( Amer) ml/min Est GFR (Non-Af Amer) ml/min BUN/Creatinine Ratio (10-20) Glucose (70-99(Fasting)) mg/dl POC Glucose 279 H (70-99) mg/dl Calcium (8.6-10.3) mg/dl Phosphorus (2.5-4.9) mg/dl Magnesium (1.7-2.4) mg/dl Total Bilirubin (0.2-1.0) mg/dl AST (13-39) U/L ALT (7-52) U/L Alkaline Phosphatase (34-104) U/L Total Protein (6.0-8.3) gm/dl Albumin (3.4-5.0) gm/dl Globulin (2.5-4.0) gm/dl Albumin/Globulin Ratio (0.9-2) 25-OH Vitamin D Total 19.7 L (30-100) ng/ml Diagnostic Findings Chest X-Ray 06/18/23 10:40 XR chest 1V portable CLINICAL HISTORY: weakness COMPARISON STUDY: Chest radiograph May 14, 2023. Chest CT November 27, 2021. FINDINGS: Lung volumes are normal. Lungs are clear. There is no pneumothorax or pleural effusion. Cardiac size is normal. Mediastinal contours are normal. There is no evidence for pulmonary edema. IMPRESSION: No acute cardiopulmonary findings. ACT 112: Negative or not required by law. Electronically signed by: Jimmy Chavarria M.D. 06/18/2023 11:[address] 06/18/23 11:[address] DOSE: 477.03 mGy.cm HISTORY: severe non-traumatic neck pain TECHNIQUE: Multiaxial CT images of the cervical spine were performed and reformatted in the sagittal and coronal plane without the use of contrast. A dose lowering technique was utilized adhering to the principles of ALARA. COMPARISON: Cervical spine CT 03/30/2023.. FINDINGS: No fractures. No subluxation. Prevertebral soft tissues and the C1-C2 interval are intact. No pneumothorax. Mild facet degenerative changes throughout the majority cervical spine. Mild disc space narrowing at C3-C4. Moderate disc space narrowing and small endplate osteophytes at C4-C5 and C5-C6. There is mild central canal and bilateral neural foraminal narrowing at these levels. This is better appreciated on the prior spine MRI. Straightening of the cervical spine. IMPRESSION: 1. No fractures within the cervical spine. 2. Degenerative changes as described above. This is similar to the prior study. ACT 112: Negative or not required by law. Electronically signed by: Vijay Vega M.D. 06/18/2023 1:[address] 06/19/23 10:36 CT head/brain wo con CLINICAL HISTORY: n/v, HTN, eval CVA Technique: Contiguous axial CT images of the head were acquired from the base of the skull to the vertex without intravenous contrast administration. Images were viewed in brain, subdural and bone windows. Automated dose lowering techniques and/or adjustment according to patient size were utilized for this exam. Comparison: Comparison is made to CT head 08/31/2019 Findings: The ventricles, basal cisterns, and cerebral sulci are normal. There is no acute intracranial hemorrhage or evidence of acute territorial infarction. Neither mass effect, shift of the midline structures, nor abnormal extra-axial fluid collections are shown. Imaged portions of the paranasal sinuses and mastoid air cells are clear. The orbits appear normal. There are no acute fractures of the calvaria or scalp swelling. Impression: No acute intracranial hemorrhage, no evidence of acute territorial infarction or other acute intracranial disease process. ACT 112: Negative or not required by law. Electronically signed by: Josh Lange M.D. 06/19/2023 11:36 AM PG Care Time/CCT Total # of Minutes Spent Total Time Spent with Patient: Total time spent is greater than 50% in coordination of care (as documented) at patient's floor/unit and/or counseling patient: Coding Level of Care Code 33292 SUB INP/OBS CARE 3/50MIN Diagnoses Degenerative disc disease, cervical M50.30 Uncontrolled type 2 diabetes mellitus with neurologic complication, with long- term current use of insulin E11.49; E11.65; Z79.4 S/P coronary artery stent placement Z95.5 Diabetic peripheral neuropathy E11.42 Anxiety F41.9 Gastroesophageal reflux disease without esophagitis K21.9 Esophagitis presence: without esophagitis Hyperglycemia R73.9 Cervicalgia M54.2 Edema of left upper arm R60.0 Hypomagnesemia E83.42 Vitamin D deficiency E55.9 Nausea & vomiting R11.2 Primary hypertension I10 Hypertension type: primary hypertension Dyslipidemia E78.5 (6) GERD (gastroesophageal reflux disease) Esophagitis presence: without esophagitis Qualified Code(s): K21.9 - Gastro- esophageal reflux disease without esophagitis (13) HTN (hypertension) Hypertension type: primary hypertension Qualified Code(s): I10 - Essential (primary) hypertension
[2023-06-19] MEDS ORDERED: NON-FORMULARY MEDICATION (Fluticasone-Umeclidin-Vilanter [Trelegy Ellipta] 100-62.5-25 mcg INH SCH (09:00)
[2023-06-19] MEDS: ASPIRIN 81 MG ECTAB PO SCH (09:14)
[2023-06-19] MEDS: EZETIMIBE 10 MG TAB PO SCH (09:14)
[2023-06-19] MEDS: ROSUVASTATIN CALCIUM 20 MG TAB PO SCH (09:14)
[2023-06-19] MEDS: FOLIC ACID 1 MG TAB PO SCH (09:14)
[2023-06-19] MEDS: DULoxetine HCL 30 MG CAP PO SCH (09:14)
[2023-06-19] MEDS: busPIRone 5 MG TAB PO SCH ×3 (09:15→21:39)
[2023-06-19] MEDS: METOPROLOL SUCC 50MG EXT REL TAB PO SCH (09:15)
[2023-06-19] MEDS: FAMOTIDINE 20 MG TAB PO SCH ×2 (09:15→21:39)
[2023-06-19] MEDS: PANTOprazole 40 MG TAB PO SCH ×2 (09:15→21:39)
[2023-06-19] MEDS: lisinopril 10 MG TAB PO SCH (09:15)
[2023-06-19] MEDS: ISOSORBIDE MONO EXTENDED REL 30 MG TABCR PO SCH (09:15)
[2023-06-19] MEDS: LIDOCAINE 5% 1 PATCH TD SCH (09:16)
[2023-06-19] MEDS: INSULIN ASPART PER UNIT CHARGE SC SCH ×4 (09:17→21:52)
[2023-06-19] MEDS: traMADol HCL 50 MG TABLET PO PRN ×2 (09:20→22:18)
[2023-06-19] MEDS: MAGNESIUM SULFATE / D5W 1 GM/100 ML BAG IV SCH ×3 (09:36→13:52)
[2023-06-19] MEDS: FLUTICASONE FUROATE 100MCG 14 PUFFS/INHALER INH SCH (09:39)
[2023-06-19] MEDS: UMECLIDINIUM/VILANTEROL 62.5/25MCG 7 PUFFS/INHALER INH SCH (09:39)
--- NOTE | 2023-06-19 11:38 | CT Scan Report ---
CT head/brain wo con CLINICAL HISTORY: n/v, HTN, eval CVA Technique: Contiguous axial CT images of the head were acquired from the base of the skull to the liliana kamlesh without intravenous contrast administration. Images were viewed in brain, subdural and bone windo ws. Automated dose lowering techniques and/or adjustment according to patient size were utilized for this exam. Comparison: Comparison is made to CT head 08/31/2019 Findings: The ventricles, basal cisterns, and cerebral sulci are normal. There is no acute intracranial hemorrh age or evidence of acute territorial infarction. Neither mass effect, shift of the midline structures , nor abnormal extra-axial fluid collections are shown. Imaged portions of the paranasal sinuses and mastoid air cells are clear. The orbits appear normal. There are no acute fractures of the calvaria or scalp swelling. Impression: No acute intracranial hemorrhage, no evidence of acute territorial infarction or other acute intracra nial disease process. ACT 112: Negative or not required by law. Electronically signed by: Josh Lange M.D. 06/19/2023 11:36 AM
[2023-06-19] MEDS ORDERED: ERGOCALCIFEROL 50,000 UNITS 1250 MCG CAP PO SCH (13:00)
[2023-06-19] MEDS ORDERED: PHARMACY GLYCEMIC MGMT CONSULT PRN (13:26)
[2023-06-19] MEDS: GABAPENTIN 100 MG CAP PO SCH ×2 (14:08→21:39)
--- NOTE | 2023-06-19 14:29 | Pharmacy Report ---
Pharmacy Glycemic Short Note 2 - Date of Service June 19, 2023 - Glycemic Short BSG Results (Last 24 hours): 06/18/23 06/18/23 06/18/23 14:27 18:14 20:20 Glucose POC Glucose 279 H 317 H* 335 H* 06/19/23 06/19/23 06/19/23 02:03 06:40 07:54 Glucose 136 H POC Glucose 141 H 130 H 06/19/23 11:33 Glucose POC Glucose 182 H OUTPATIENT ANTIDIABETIC REGIMEN: * Novolog 20 units SQ TID * Tresiba 20 units SQ HS * Metformin 1000 mg PO BID HbA1c = 11.5% on 05/15/23 ASSESSMENT: * 78 y/o F admitted today with cervical radiculopathy. She has history of diabetes managed on short and long acting insulins plus oral Metformin. Given high A1c, questionable compliance with anti-diabetic meds. * Patient received 20 units of basal insulin last night with adequate control this morning - fasting BSG today was 130 mg/dl. Novolog was also started last night. * Today Solu Medrol IV 40 mg q8h started in the afternoon and pharmacy is now consulted for glycemic management. * Since IV steroids are started, Novolog parameters tightened with dinner. * Basal dose increased to almost a full stress of 3 starting at HS. * During recent admission in April, patient required BID doses of basal insulin. Will re-assess dosing tomorrow. PLAN FOR INPATIENT GLYCEMIC CONTROL: * Hold outpatient oral diabetes medications * Basal insulin * Lantus 30 units SQ HS * Bolus insulin * NovoLog per scale ACHS or Q6hrs while NPO * Goal Range: Low 110 mg/dL - High 140 mg/dL * Correction Factor: 20 mg/dL/unit * Nutritional / Prandial insulin per carb ratio of 1 unit per 7 grams CHO consumed
[2023-06-19] MEDS: methylPREDNISolone 40 MG in SYRINGE 0 ML IV SCH ×2 (15:42→21:40)
--- NOTE | 2023-06-19 15:53 | Ultrasound Report ---
US venous doppler UE LT CLINICAL HISTORY: edema, r/o dvt PROCEDURE: Left upper extremity real-time compression venous ultrasound with Duplex and color Doppler imaging. Comparison: None available at the time of this dictation. FINDINGS/IMPRESSION: There is normal compressibility of the deep venous system from the forearm through the subclavian vei n. Normal vascular flow is currently identified. No evidence of superficial thrombosis is identified. ACT 112: Negative or not required by law. Electronically signed by: Josh Lange M.D. 06/19/2023 3:52 PM
[2023-06-19] MEDS ORDERED: LANTUS PER UNIT CHARGE SQ SCH (21:00)
[2023-06-20] MEDS: INSULIN ASPART PER UNIT CHARGE SC SCH ×6 (00:27→21:16)
[2023-06-20] MEDS: ACETAMINOPHEN 500 MG TAB PO SCH ×3 (00:27→17:15)
[2023-06-20] MEDS: traMADol HCL 50 MG TABLET PO PRN (04:05)
[2023-06-20] MEDS: methylPREDNISolone 40 MG in SYRINGE 0 ML IV SCH (06:09)
[2023-06-20 06:44] LABS: Hematocrit (blood only) 32.1 % (37.0-47.0); Hemoglobin 10.9 g/dl (12.0-16.0); Mean Corpuscular Hemoglobin 27.5 pg (25.0-34.0); Mean Corpuscular Volume 80.9 fL (80.0-100.0); Mean Platelet Volume 9.9 fL (9.4-12.4); Platelet Count 255 K/uL (130-400); RDW Coefficient of Variation 14.3 % (11.5-14.5); RDW Standard Deviation 42.2 fL (36.4-46.3); Red Blood Count 3.97 M/uL (4.20-5.40); White Blood Count 6.25 K/ul (4.8-10.8)
[2023-06-20 07:08] LABS: Albumin Globulin Ratio 1.2 (0.9-2); Albumin Level 3.2 gm/dl (3.4-5.0); BUN Creatinine Ratio 31.9 (10-20); Bilirubin,Total 0.3 mg/dl (0.2-1.0); C Reactive Protein 4.2 mg/dl (0-0.5); Calcium 8.6 mg/dl (8.6-10.3); Creatinine Clr Calc Pharmacy 47.3 ml/min; Est GFR (African American) 68.3 ml/min; Est GFR (Non-African American) 58.9 ml/min; Globulin 2.7 gm/dl (2.5-4.0); Magnesium 2.2 mg/dl (1.7-2.4); Potassium 4.4 mmol/L (3.5-5.1); Total Protein 5.9 gm/dl (6.0-8.3)
--- NOTE | 2023-06-20 07:56 | Billing Data ---
Date of Service June 18, 2023 Coding Level of Care Code 76226 INT INP/OBS CARE
--- NOTE | 2023-06-20 08:22 | Hospitalist Progress Note ---
Date of Service June 20, 2023 Assessment & Plan (1) Degenerative disc disease, cervical: Plan: Cervical radiculopathy b/l UE w/ decreased ability to lift arms/pain from her neck w/ decreased ability/ROM w/ rotation of the neck Patient just discharged on 05/19 on prednisone taper for cervical radiculopathy. Was seen by Dr Cheung during that time and did not feel surgery was indicated as presentation was not entirely consistent with cervical stenosis and radiculopathy, checked ESR/CRP for inflammatory disease work-up (CRP mild elevation in 2s, ESR wnl). Ultimately was for rehab but made improvements and went home on taper w/ HH services She notes her PCP did get another prednisone taper but did not want to continue. No falls/trauma Reports but difficulty w/ ADLs/preparing food for herself and was attempting to get waiver care reported, notes had EMG testing and unclear cause. ?underlying carpel tunnel/cubital tunnel w/ neuropathy w/ her uncontrolled diabetes MRI from prior visit 05/14/23 with degenerative disc disease in cervical spine; defer further imaging for now as pain is consistent with prior and no acute neurologic changes. CT cervical spine without acute changes. * Notes no fractures. No subluxation. Prevertebral soft tissues and the C1-C2 interval are intact. No pneumothorax. Mild facet degenerative changes throughout the majority cervical spine. Mild disc space narrowing at C3-C4. Moderate disc space narrowing and small endplate osteophytes at C4-C5 and C5- C6. There is mild central canal and bilateral neural foraminal narrowing at these levels. This is better appreciated on the prior spine MRI. Straightening of the cervical spine. Pain control: -Tramadol q4h prn, Dilaudid for breakthrough - scheduled Tylenol, lidocaine, heat - IV solu-medrol started 06/19 40mg q8h and increased her home gabapentin from 100mg HS to 100mg TID for neuropathic type pain. On Cymbalta 30mg (?increasing this as well) Will decrease her solu-medrol to 20mg q8h to prevent significant hyperglycemia in uncontrolled DM. Pain management consulted to see patient on Wednesday -Patient not really wanting injection at present so will continue her ASA given her hx CAD but after discussion w/ pain management in AM they may be able to coordinate outpatient follow up from [facility] if continued issues despite medical management PT/OT consults pending -- Claire is agreeable to rehab at [facility] to note (does not want to go anywhere else though) (2) Uncontrolled type 2 diabetes mellitus with neurologic complication, with long-term current use of insulin: Plan: A1c 11.5 in April Home regimen Novolog 20u TID (although HPI states taking 8u TID) tresiba 20u HS, 1gm metformin BID at home BSG 345 on admission, had not taken her home medications 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 to 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 Prior [place] in past described as sharp substernal CP w/ radiation to LEFT arm -She DENIES sensation similar to her prior MIs as noting her BP was 226/165 on arrival with reported n/v/hyperglycemia (?DKA but no anion gap) CT head obtained given risk/headache, NEGATIVE Given her home meds STAT on admission BP presently 135/77, improvement /w pain control as well Remains on home metoprolol, isosorbide mononitrate, lisinopril, ezetimibe, rosuvastatin, ASA (4) Diabetic peripheral neuropathy: Plan: uncontrolled diabetic, A1c 11.5, elevated BSGs on admission. Prior B12/folate deficiency and replacement (5) Anxiety: Plan: Anxiety & Depression -continue buspirone, duloxetine (also for neuropathy and can consider increasing to 60mg daily as well) (6) GERD (gastroesophageal reflux disease): Plan: Continue PPI BID, H2 BID Hx barretts/erosive esophagitis as well No increased issues reported at present but does report some from time to time Should have GI f/u for EGD at d/c as doesn't appear done recently (7) Hyperglycemia: Plan: improved since admission but then was high evening 06/19 after starting steroids as above do suspect given A1c that patient does have issues w/ noncompliance at home tx as outlined above (8) Cervicalgia: Plan: as above ESR/CRP checked, elevated but w/ hyperglycemia. Not significantly elevated to concern about osteo at present, ESR not >90 to suggest PMR w/ weakness or other Therapy evals/pain control (9) Edema of left upper arm: Plan: checked venous doppler -- NEGATIVE. weirdly improved since starting steroids? heat/pain control monitor (10) Hypomagnesemia: Plan: ?2nd to PPI use Mag 1.5 -- IV replacement ordered. WNL on repeat Will monitor in AM but consider PO supplementation given prior/frequent lows (11) Vitamin D deficiency: Plan: Prior Vit D level 12.5 in Sep 2022 On ergocalciferol 50,000 weekly, had been taking Vit D low 12.8 on repeat PTH appropriately elevated (however Ca 10.5 on admit but dehydrated w/ n/v and prior normal/lows) --? underlying hyperparathyroidism vs from chronic renal disease given her uncontrolled DM (12) Nausea & vomiting: Plan: reported nausea/vomiting night prior to admission, nothing further and tolerating diet without issues (13) HTN (hypertension): (14) Dyslipidemia: Plan DVT proph: Lovenox SQ while inpatient PT/OT consulted, patient agreeable to [facility] per discussion. CM to follow Admission and Anticipated Discharge Date Admission Date: June 18, 2023 Supervising Physician Co-Signing Physician Notes The patient was not seen by me. The chart was reviewed. Case discussed with JAVI Woods. Agree with assessment and plan Subjective Patient evaluated this morning, pain much improved since starting steroids/increasing her home gabapentin and using as needed tramadol. BSGs elevated from steroids w/ her uncontrolled DM, pharmacy on for glycemic. Discussed decreasing her steroids to prevent issues and can monitor for need to increase her gabapentin tomorrow w/ eval from pain management. She is wanting rehab at [facility]. Therapy evaluations to be undertaken. Breathing stable on her home inhalers, no chest pain. No abdominal pain/nausea/vomiting. Questions/concerns addressed at this time. Physical Exam Physical Exam: General: chronically ill appearing female sitting up in recliner today on the phone, appears much improved w/ pain control, NAD HEENT: head atraumatic, normocephalic, tenderness to palpation paraspinal muscles, decreased ROM w/ rotation of the neck (slightl y improved from yesterday-- worse w/ rotation), lidocaine patch in place, mmm, trachea midline Resp: even/unlabored, no w/c/r, on room air CV: RRR, no significant mrg, trace pedal edema (slightly worse on her LLE c ompared to the right but reporting chronic) GI: +BS, soft/NT : no ramirez MSK/Neuro: decreased ROM of neck as above improved, improvement in strength b/l UE w/ movements, 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 but reduced on the left compared to the right, pulses palpable Psych: AOx3, cooperative and pleasant with exam Results & Data Results & Data Vital Signs (Past 12 Hours) Vital Signs Temp Pulse Resp BP Pulse Ox O2 Del Method 06/20/23 07:49 Room Air 06/20/23 07:31 36.6 C 68 18 135/77 95 Room Air Laboratory Results 06/20/23 06/20/23 06/20/23 Range/Units 07:46 06:20 03:55 WBC 6.25 (4.8-10.8) K/ul RBC 3.97 L (4.20-5.40) M/uL Hgb 10.9 L (12.0-16.0) g/dl Hct 32.1 L (37.0-47.0) % MCV 80.9 (80.0-100.0) fL MCH 27.5 (25.0-34.0) pg MCHC 34.0 (32.0-36.0) g/dL RDW Std Deviation 42.2 (36.4-46.3) fL RDW Coeff of Tino 14.3 (11.5-14.5) % Plt Count 255 (130-400) K/uL MPV 9.9 (9.4-12.4) fL ESR 43 H (0-30) mm/hr Sodium 132 L (136-145) mmol/L Potassium 4.4 (3.5-5.1) mmol/L Chloride 103 (98-107) mmol/L Carbon Dioxide 24 (21-32) mmol/L Anion Gap 5 (3-11) BUN 30 H (6-23) mg/dl Creatinine 0.94 (0.6-1.2) mg/dl Est Cr Clr Drug Dosing 47.3 ml/min Est GFR ( Amer) 68.3 ml/min Est GFR (Non-Af Amer) 58.9 ml/min BUN/Creatinine Ratio 31.9 H (10-20) Glucose 188 H (70-99(Fasting)) mg/dl POC Glucose 159 H 227 H (70-99) mg/dl Calcium 8.6 (8.6-10.3) mg/dl Magnesium 2.2 (1.7-2.4) mg/dl Total Bilirubin 0.3 (0.2-1.0) mg/dl AST 10 L (13-39) U/L ALT 10 (7-52) U/L Alkaline Phosphatase 62 (34-104) U/L C-Reactive Protein 4.20 H (0-0.5) mg/dl Total Protein 5.9 L (6.0-8.3) gm/dl Albumin 3.2 L (3.4-5.0) gm/dl Globulin 2.7 (2.5-4.0) gm/dl Albumin/Globulin Ratio 1.2 (0.9-2) 25-OH Vitamin D Total (30-100) ng/ml PTH Intact 97.5 H (12.0-88.0) pg/ml 06/20/23 06/20/23 06/19/23 Range/Units 00:13 00:07 21:01 WBC (4.8-10.8) K/ul RBC (4.20-5.40) M/uL Hgb (12.0-16.0) g/dl Hct (37.0-47.0) % MCV (80.0-100.0) fL MCH (25.0-34.0) pg MCHC (32.0-36.0) g/dL RDW Std Deviation (36.4-46.3) fL RDW Coeff of Tino (11.5-14.5) % Plt Count (130-400) K/uL MPV (9.4-12.4) fL ESR (0-30) mm/hr Sodium (136-145) mmol/L Potassium (3.5-5.1) mmol/L Chloride (98-107) mmol/L Carbon Dioxide (21-32) mmol/L Anion Gap (3-11) BUN (6-23) mg/dl Creatinine (0.6-1.2) mg/dl Est Cr Clr Drug Dosing ml/min Est GFR ( Amer) ml/min Est GFR (Non-Af Amer) ml/min BUN/Creatinine Ratio (10-20) Glucose (70-99(Fasting)) mg/dl POC Glucose 378 H* 366 H* 459 H* (70-99) mg/dl Calcium (8.6-10.3) mg/dl Magnesium (1.7-2.4) mg/dl Total Bilirubin (0.2-1.0) mg/dl AST (13-39) U/L ALT (7-52) U/L Alkaline Phosphatase (34-104) U/L C-Reactive Protein (0-0.5) mg/dl Total Protein (6.0-8.3) gm/dl Albumin (3.4-5.0) gm/dl Globulin (2.5-4.0) gm/dl Albumin/Globulin Ratio (0.9-2) 25-OH Vitamin D Total (30-100) ng/ml PTH Intact (12.0-88.0) pg/ml 06/19/23 06/19/23 06/19/23 Range/Units 20:58 16:44 14:59 WBC (4.8-10.8) K/ul RBC (4.20-5.40) M/uL Hgb (12.0-16.0) g/dl Hct (37.0-47.0) % MCV (80.0-100.0) fL MCH (25.0-34.0) pg MCHC (32.0-36.0) g/dL RDW Std Deviation (36.4-46.3) fL RDW Coeff of Tino (11.5-14.5) % Plt Count (130-400) K/uL MPV (9.4-12.4) fL ESR (0-30) mm/hr Sodium (136-145) mmol/L Potassium (3.5-5.1) mmol/L Chloride (98-107) mmol/L Carbon Dioxide (21-32) mmol/L Anion Gap (3-11) BUN (6-23) mg/dl Creatinine (0.6-1.2) mg/dl Est Cr Clr Drug Dosing ml/min Est GFR ( Amer) ml/min Est GFR (Non-Af Amer) ml/min BUN/Creatinine Ratio (10-20) Glucose (70-99(Fasting)) mg/dl POC Glucose 441 H* 278 H 216 H (70-99) mg/dl Calcium (8.6-10.3) mg/dl Magnesium (1.7-2.4) mg/dl Total Bilirubin (0.2-1.0) mg/dl AST (13-39) U/L ALT (7-52) U/L Alkaline Phosphatase (34-104) U/L C-Reactive Protein (0-0.5) mg/dl Total Protein (6.0-8.3) gm/dl Albumin (3.4-5.0) gm/dl Globulin (2.5-4.0) gm/dl Albumin/Globulin Ratio (0.9-2) 25-OH Vitamin D Total (30-100) ng/ml PTH Intact (12.0-88.0) pg/ml 06/19/23 06/18/23 Range/Units 11:33 10:55 WBC (4.8-10.8) K/ul RBC (4.20-5.40) M/uL Hgb (12.0-16.0) g/dl Hct (37.0-47.0) % MCV (80.0-100.0) fL MCH (25.0-34.0) pg MCHC (32.0-36.0) g/dL RDW Std Deviation (36.4-46.3) fL RDW Coeff of Tino (11.5-14.5) % Plt Count (130-400) K/uL MPV (9.4-12.4) fL ESR (0-30) mm/hr Sodium (136-145) mmol/L Potassium (3.5-5.1) mmol/L Chloride (98-107) mmol/L Carbon Dioxide (21-32) mmol/L Anion Gap (3-11) BUN (6-23) mg/dl Creatinine (0.6-1.2) mg/dl Est Cr Clr Drug Dosing ml/min Est GFR ( Amer) ml/min Est GFR (Non-Af Amer) ml/min BUN/Creatinine Ratio (10-20) Glucose (70-99(Fasting)) mg/dl POC Glucose 182 H (70-99) mg/dl Calcium (8.6-10.3) mg/dl Magnesium (1.7-2.4) mg/dl Total Bilirubin (0.2-1.0) mg/dl AST (13-39) U/L ALT (7-52) U/L Alkaline Phosphatase (34-104) U/L C-Reactive Protein (0-0.5) mg/dl Total Protein (6.0-8.3) gm/dl Albumin (3.4-5.0) gm/dl Globulin (2.5-4.0) gm/dl Albumin/Globulin Ratio (0.9-2) 25-OH Vitamin D Total 19.7 L (30-100) ng/ml PTH Intact (12.0-88.0) pg/ml Diagnostic Findings Head CT 06/19/23 10:36 CT head/brain wo con CLINICAL HISTORY: n/v, HTN, eval CVA Technique: Contiguous axial CT images of the head were acquired from the base of the skull to the vertex without intravenous contrast administration. Images were viewed in brain, subdural and bone windows. Automated dose lowering techniques and/or adjustment according to patient size were utilized for this exam. Comparison: Comparison is made to CT head 08/31/2019 Findings: The ventricles, basal cisterns, and cerebral sulci are normal. There is no acute intracranial hemorrhage or evidence of acute territorial infarction. Neither mass effect, shift of the midline structures, nor abnormal extra-axial fluid collections are shown. Imaged portions of the paranasal sinuses and mastoid air cells are clear. The orbits appear normal. There are no acute fractures of the calvaria or scalp swelling. Impression: No acute intracranial hemorrhage, no evidence of acute territorial infarction or other acute intracranial disease process. ACT 112: Negative or not required by law. Electronically signed by: Josh Lange M.D. 06/19/2023 11:36 AM Extremity Venous Study 06/19/23 13:14 US venous doppler UE LT CLINICAL HISTORY: edema, r/o dvt PROCEDURE: Left upper extremity real-time compression venous ultrasound with Duplex and color Doppler imaging. Comparison: None available at the time of this dictation. FINDINGS/IMPRESSION: There is normal compressibility of the deep venous system from the forearm through the subclavian vein. Normal vascular flow is currently identified. No evidence of superficial thrombosis is identified. ACT 112: Negative or not required by law. Electronically signed by: Josh Lange M.D. 06/19/2023 3:52 PM PG Care Time/CCT Total # of Minutes Spent Total Time Spent with Patient: Total time spent is greater than 50% in coordination of care (as documented) at patient's floor/unit and/or counseling patient: Coding Level of Care Code 21637 SUB INP/OBS CARE 3/50MIN Diagnoses Degenerative disc disease, cervical M50.30 Uncontrolled type 2 diabetes mellitus with neurologic complication, with long- term current use of insulin E11.49; E11.65; Z79.4 S/P coronary artery stent placement Z95.5 Diabetic peripheral neuropathy E11.42 Anxiety F41.9 Gastroesophageal reflux disease without esophagitis K21.9 Esophagitis presence: without esophagitis Hyperglycemia R73.9 Cervicalgia M54.2 Edema of left upper arm R60.0 Hypomagnesemia E83.42 Vitamin D deficiency E55.9 Nausea & vomiting R11.2 Primary hypertension I10 Hypertension type: primary hypertension Dyslipidemia E78.5 (6) GERD (gastroesophageal reflux disease) Esophagitis presence: without esophagitis Qualified Code(s): K21.9 - Gastro- esophageal reflux disease without esophagitis (13) HTN (hypertension) Hypertension type: primary hypertension Qualified Code(s): I10 - Essential (primary) hypertension
[2023-06-20] MEDS: ISOSORBIDE MONO EXTENDED REL 30 MG TABCR PO SCH (08:49)
[2023-06-20] MEDS: PANTOprazole 40 MG TAB PO SCH ×2 (08:50→19:29)
[2023-06-20] MEDS: ASPIRIN 81 MG ECTAB PO SCH (08:50)
[2023-06-20] MEDS: FOLIC ACID 1 MG TAB PO SCH (08:50)
[2023-06-20] MEDS: ROSUVASTATIN CALCIUM 20 MG TAB PO SCH (08:50)
[2023-06-20] MEDS: METOPROLOL SUCC 50MG EXT REL TAB PO SCH (08:50)
[2023-06-20] MEDS: lisinopril 10 MG TAB PO SCH (08:50)
[2023-06-20] MEDS: FAMOTIDINE 20 MG TAB PO SCH ×2 (08:50→19:28)
[2023-06-20] MEDS: DULoxetine HCL 30 MG CAP PO SCH (08:50)
[2023-06-20] MEDS: busPIRone 5 MG TAB PO SCH ×3 (08:50→19:27)
[2023-06-20] MEDS: GABAPENTIN 100 MG CAP PO SCH ×3 (08:50→19:28)
[2023-06-20] MEDS: EZETIMIBE 10 MG TAB PO SCH (08:50)
[2023-06-20] MEDS: LIDOCAINE 5% 1 PATCH TD SCH (08:51)
[2023-06-20] MEDS: FLUTICASONE FUROATE 100MCG 14 PUFFS/INHALER INH SCH (08:51)
[2023-06-20] MEDS: UMECLIDINIUM/VILANTEROL 62.5/25MCG 7 PUFFS/INHALER INH SCH (08:51)
[2023-06-20] MEDS: LANTUS PER UNIT CHARGE SQ SCH ×2 (08:55→21:16)
[2023-06-20 09:26] LABS: Appearance Urine Clear (Clear); Bacteria Urine Automated Negative (Negative); Bilirubin Urine Negative (Negative); Blood Urine Negative (Negative); Color Urine Yellow; Epithelial Cell Urine Auto >30 /lpf (0-5); Glucose Urine UA 2+ (Negative); Ketones Urine Negative (Negative); Leukocyte Esterase Urine 1+ (Negative); Nitrite Urine Negative (Negative); Protein Urine Negative (Negative); RBC Urine Automated 0-4 /hpf (0-4); Specific Gravity Urine 1.018 (1.000-1.030); Urobilinogen Urine Negative (Negative); pH Urine 5.5 (4.5-7.5)
[2023-06-20] MEDS: methylPREDNISolone 20 MG in SYRINGE 0 ML IV SCH ×2 (13:23→21:18)
--- NOTE | 2023-06-20 14:49 | Pharmacy Report ---
Pharmacy Glycemic Short Note 2 - Date of Service June 20, 2023 - Glycemic Short BSG Results (Last 24 hours): 06/19/23 06/19/23 06/19/23 16:44 20:58 21:01 Glucose POC Glucose 278 H 441 H* 459 H* 06/20/23 06/20/23 06/20/23 00:07 00:13 03:55 Glucose POC Glucose 366 H* 378 H* 227 H 06/20/23 06/20/23 06/20/23 06:20 07:46 11:49 Glucose 188 H POC Glucose 159 H 347 H* 06/20/23 11:50 Glucose POC Glucose 335 H* OUTPATIENT ANTIDIABETIC REGIMEN: * Novolog 20 units SQ TID * Tresiba 20 units SQ HS * Metformin 1000 mg PO BID HbA1c = 11.5% on 05/15/23 ASSESSMENT: 06/20: * Yesterday patient received total of 94 units of insulin: 30 units basal and 64 units bolus. * BSGs trended up high above 459 mg/dl at HS, which is steroid induced. * Fasting BSG today was 159 mg/dl. Basal insulin increased to 25 units BID (30 units more than home dose ~0.4 units/kg) * IV steroid dose decreased to 20 mg Solu-medrol q8h. Since pre-lunch BSG trend ed up above 300 mg/dl, Novolog carb ratio tightened. * Expect BSG to trend down this evening 06/19: * 78 y/o F admitted today with cervical radiculopathy. She has history of d iabetes managed on short and long acting insulins plus oral Metformin. Given high A1c, questionable compliance with anti-diabetic meds. * Patient received 20 units of basal insulin last night with adequate control this morning - fasting BSG today was 130 mg/dl. Novolog was also started last night. * Today Solu Medrol IV 40 mg q8h started in the afternoon and pharmacy is now consulted for glycemic management. * Since IV steroids are started, Novolog parameters tightened with dinner. * Basal dose increased to almost a full stress of 3 starting at HS. * During recent admission in April, patient required BID doses of basal insulin. Will re-assess dosing tomorrow. PLAN FOR INPATIENT GLYCEMIC CONTROL: * Hold outpatient oral diabetes medications * Basal insulin * Lantus 25 units SQ BID * Bolus insulin * NovoLog per scale ACHS or Q6hrs while NPO * Goal Range: Low 110 mg/dL - High 140 mg/dL * Correction Factor: 15 mg/dL/unit * Nutritional / Prandial insulin per carb ratio of 1 unit per 4.5 grams CHO consumed
[2023-06-20] MEDS ORDERED: SODIUM CHLORIDE 0.9% 500 ML IV SCH (16:15)
[2023-06-20] MEDS ORDERED: INSULIN HUMAN REGULAR PER UNIT 7 UNITS in SYRINGE 6.93 ML IV ONE (16:45)
[2023-06-21] MEDS: ACETAMINOPHEN 500 MG TAB PO SCH ×3 (00:45→17:39)
[2023-06-21] MEDS: methylPREDNISolone 20 MG in SYRINGE 0 ML IV SCH (05:38)
[2023-06-21 07:58] LABS: Hematocrit (blood only) 31.6 % (37.0-47.0); Hemoglobin 10.6 g/dl (12.0-16.0); Mean Corpuscular Hgb Conc 33.5 g/dL (32.0-36.0); Mean Corpuscular Volume 80.6 fL (80.0-100.0); Mean Platelet Volume 9.9 fL (9.4-12.4); Platelet Count 254 K/uL (130-400); RDW Coefficient of Variation 14.6 % (11.5-14.5); RDW Standard Deviation 42.9 fL (36.4-46.3); Red Blood Count 3.92 M/uL (4.20-5.40); White Blood Count 12.49 K/ul (4.8-10.8)
[2023-06-21] MEDS: ISOSORBIDE MONO EXTENDED REL 30 MG TABCR PO SCH (08:14)
[2023-06-21] MEDS: EZETIMIBE 10 MG TAB PO SCH (08:14)
[2023-06-21] MEDS: ASPIRIN 81 MG ECTAB PO SCH (08:15)
[2023-06-21] MEDS: DULoxetine HCL 30 MG CAP PO SCH (08:15)
[2023-06-21] MEDS: PANTOprazole 40 MG TAB PO SCH ×2 (08:15→21:39)
[2023-06-21] MEDS: METOPROLOL SUCC 50MG EXT REL TAB PO SCH (08:15)
[2023-06-21] MEDS: lisinopril 10 MG TAB PO SCH (08:15)
[2023-06-21] MEDS: FOLIC ACID 1 MG TAB PO SCH (08:15)
[2023-06-21] MEDS: GABAPENTIN 100 MG CAP PO SCH ×3 (08:15→21:38)
[2023-06-21] MEDS: ROSUVASTATIN CALCIUM 20 MG TAB PO SCH (08:15)
[2023-06-21] MEDS: FAMOTIDINE 20 MG TAB PO SCH ×2 (08:15→21:38)
[2023-06-21] MEDS: busPIRone 5 MG TAB PO SCH ×3 (08:15→21:38)
--- NOTE | 2023-06-21 08:15 | Hospitalist Progress Note ---
Date of Service June 21, 2023 Assessment & Plan (1) Degenerative disc disease, cervical: Plan: Cervical radiculopathy b/l UE w/ decreased ability to lift arms/pain from her neck w/ decreased ability/ROM w/ rotation of the neck Patient just discharged on 05/19 on prednisone taper for cervical radiculopathy. Was seen by Dr Cheung during that time and did not feel surgery was indicated as presentation was not entirely consistent with cervical stenosis and radiculopathy, checked ESR/CRP for inflammatory disease work-up (CRP mild elevation in 2s, ESR wnl). Ultimately was for rehab but made improvements and went home on taper w/ HH services She notes her PCP did get another prednisone taper but did not want to continue. No falls/trauma Reports but difficulty w/ ADLs/preparing food for herself and was attempting to get waiver care reported, notes had EMG testing and unclear cause. ?underlying carpel tunnel/cubital tunnel w/ neuropathy w/ her uncontrolled diabetes MRI from prior visit 05/14/23 with degenerative disc disease in cervical spine; defer further imaging for now as pain is consistent with prior and no acute neurologic changes. CT cervical spine without acute changes. * Notes no fractures. No subluxation. Prevertebral soft tissues and the C1-C2 interval are intact. No pneumothorax. Mild facet degenerative changes throughout the majority cervical spine. Mild disc space narrowing at C3-C4. Moderate disc space narrowing and small endplate osteophytes at C4-C5 and C5- C6. There is mild central canal and bilateral neural foraminal narrowing at these levels. This is better appreciated on the prior spine MRI. Straightening of the cervical spine. Pain control: -Tramadol q4h prn, Dilaudid for breakthrough - scheduled Tylenol, lidocaine, heat - Started IV solu-medrol 06/19 40mg q8h and increased her home gabapentin from 100mg HS to 100mg TID for neuropathic type pain. On Cymbalta 30mg (?increasing this as well) Pain management saw AM 06/21, has appt on 06/23 and further discussion w/ patient about benefit and failure prior once off tapered steroids and she was agreeable. Discussed w/ Dr Patel given patient initially wanting to decline injection/consideration if needing to hold her aspirin and no need for this to be held per Dr Patel Ok w/ continued gabapentin use for symptom control, discussed w/ patient and increased to 200mg TID and will monitor. Possible to just continue 100mg during day and 200mg at night as well but will monitor. Could have alternatively considered increasing her home cymbalta for diabetic neuropathy which could be done if not tolerating increased gabapentin dose Decreased IV solumedrol to BID dosing from 20mg Q8H to prevent further worsening hyperglycemia in uncontrolled diabetic PT/OT consulted, pt wanting [facility] (unable to complete ADLs at home/preparing foods for herself, suspect benefit at least short term) (2) Uncontrolled type 2 diabetes mellitus with neurologic complication, with long-term current use of insulin: Plan: A1c 11.5 in April Home regimen Novolog 20u TID (although HPI states taking 8u TID) tresiba 20u HS, 1gm metformin BID at home (?compliance given A1c 11.5) BSG 345 on admission, had not taken her home medications due to n/v [employer] Given 5u IV insulin and her home glargine 20u HS on admission w/ improvement in BSGs to 140s-180s however started IV steroids and suspected significant rise given prior admission data and pharmacy was consulted for glycemic control yesterday afternoon and BSGs elevated to 400s PM 06/19 w/ intervention and improved to 159 on AM labs (was also provided additional 500cc NSS to prevent DKA Continued issues w/ hyperglycemia overnight and given patient w/ significant improvement decision to decrease to BID dosing for today and start PO prednisone tomorrow and will plan for taper Continued assistance w/ pharmacy for glycemic management appreciated, monitor BSGs (3) S/P coronary artery stent placement: Plan: Hx CAD, HTN, HLD Hx CAD s/p PCI (LAD, Cx, RCA). Prior SC in past described as sharp substernal CP w/ radiation to LEFT arm -She DENIES sensation similar to her prior MIs as noting her BP was 226/165 on arrival with reported n/v/hyperglycemia (?DKA but no anion gap) CT head obtained given risk/headache, NEGATIVE Given her home meds STAT on admission BP stable and much improved w/ pain control and remains on home metoprolol, isosorbide mononitrate, lisinopril, ezetimibe, rosuvastatin, ASA No chest pain reported (baseline SOB controlled w/ inhalers and on room air) (4) Diabetic peripheral neuropathy: Plan: uncontrolled diabetic, A1c 11.5, elevated BSGs on admission. Prior B12/folate deficiency and replacement (5) Anxiety: Plan: Anxiety & Depression -continue buspirone, duloxetine (also for neuropathy and can consider increasing to 60mg daily as well pending tolerability to gabapentin) (6) GERD (gastroesophageal reflux disease): Plan: Continue PPI BID, H2 BID Hx barretts/erosive esophagitis as well No increased issues reported at present but does report some from time to time Should have GI f/u for EGD at d/c as doesn't appear done recently (7) Hyperglycemia: Plan: improved since admission but then was high evening 11/ after starting steroids as above do suspect given A1c that patient does have issues w/ noncompliance at home tx as outlined above (8) Cervicalgia: Plan: as above ESR/CRP checked, elevated but w/ hyperglycemia. Not significantly elevated to concern about osteo at present, ESR not >90 to suggest PMR w/ weakness or other Therapy evals/pain control (9) Edema of left upper arm: Plan: checked venous doppler -- NEGATIVE. weirdly improved since starting steroids? heat/pain control monitor (10) Hypomagnesemia: Plan: ?2nd to PPI use Mag 1.5 -- IV replacement ordered. WNL on repeat Will monitor in AM but consider PO supplementation given prior/frequent lows (11) Vitamin D deficiency: Plan: Prior Vit D level 12.5 in Sep 2022 On ergocalciferol 50,000 weekly, had been taking Vit D low 12.8 on repeat PTH appropriately elevated (however Ca 10.5 on admit but dehydrated w/ n/v and prior normal/lows) --? underlying hyperparathyroidism vs from chronic renal disease given her uncontrolled DM (12) Nausea & vomiting: Plan: reported nausea/vomiting night prior to admission, nothing further and tolerating diet without issues and moving her bowels (13) HTN (hypertension): (14) Dyslipidemia: Plan DVT proph: Lovenox SQ while inpatient PT/OT consulted, patient agreeable to [facility] per discussion. CM following Admission and Anticipated Discharge Date Admission Date: June 20, 2023 Subjective Evaluated this morning, sitting up in recliner, looking about 75% better than admission. Mobility much improved but still having a decent amount of pain. Discussed increasing her gabapentin for pain control while in hospital setting and can monitor and she was agreeable to this. She notes she was seen by someone from pain management, a woman, this morning but is unsure who it was but was told she should go home today. Discussed continued inpatient stay and working on rehab given difficulty w/ ADLs, especially when off steroids. No fever/chills, chest pain. Her breathing is at baseline with her usual inhalers. Eating/drinking no issue and did report additional bowel movement. CM notified this morning about patient want for [facility] for SNF at discharge. Discussed w/ Dr Patel as patient declined epidural injection as she would benefit from such. Wanted appt for Wednesday cancelled. Discussed again w/ Claire about her reservations. She reports hearing that the injection to the neck hurts. Discussed pinch compared to her ongoing pain she's been dealing with and feel she would have significant benefit from injection. She was thankful for extended time discussing her treatment plan and failure of conservative measures but attempting medication management at present but she would be benefitted by injection. She was then agreeable to have f/u discussions and will keep her appt for Wednesday that can be coordinated with [facility] if at facility to consider injection. They just have patient hold aspirin x 1 day, which could be held for tomorrow. Physical Exam Physical Exam: General: chronically ill appearing female, sitting up in recliner today on the phone upon entry, appears MUCH improved, NAD HEENT: decreased paraspinal muscle tenderness, improved ROM of the neck (lidocaine patch in place), trachea midline, mmm Resp: even/unlabored, no significant m/r/g, on room air CV: RRR, no significant mrg, trace pedal edema (slightly worse on her LLE compared to the right but reporting chronic -- stable on repeat exam) GI: +BS, soft/NT : no ramirez MSK/Neuro: increased ROM of neck as above improved, improvement in strength b/l UE w/ movements and able to lift her arms almost to the level of her shoulders today, slight improvement in senior bi developer strength today compared to prior on the left, good on the right b/l LE testing w/ slight decreased strength but equal bilaterally follows commands, no facial droop or slurred speech Psych: AOx3, cooperative and pleasant with exam Results & Data Results & Data Vital Signs (Past 12 Hours) Vital Signs Temp Pulse Resp BP Pulse Ox O2 Del Method 06/21/23 07:06 36.7 C 68 16 134/73 98 Room Air Laboratory Results 06/21/23 06/21/23 06/21/23 Range/Units 11: 08:02 07:32 WBC 12.49 H (4.8-10.8) K/ul RBC 3.92 L (4.20-5.40) M/uL Hgb 10.6 L (12.0-16.0) g/dl Hct 31.6 L (37.0-47.0) % MCV 80.6 (80.0-100.0) fL MCH 27.0 (25.0-34.0) pg MCHC 33.5 (32.0-36.0) g/dL RDW Std Deviation 42.9 (36.4-46.3) fL RDW Coeff of Tino 14.6 H (11.5-14.5) % Plt Count 254 (130-400) K/uL MPV 9.9 (9.4-12.4) fL Sodium 132 L (136-145) mmol/L Potassium 4.6 (3.5-5.1) mmol/L Chloride 104 (98-107) mmol/L Carbon Dioxide 24 (21-32) mmol/L Anion Gap 4 (3-11) BUN 34 H (6-23) mg/dl Creatinine 1.01 (0.6-1.2) mg/dl Est Cr Clr Drug Dosing 44.0 ml/min Est GFR ( Amer) 62.6 ml/min Est GFR (Non-Af Amer) 54.0 ml/min BUN/Creatinine Ratio 33.7 H (10-20) Glucose 146 H (70-99(Fasting)) mg/dl POC Glucose 281 H 155 H (70-99) mg/dl Calcium 8.3 L (8.6-10.3) mg/dl Magnesium 2.2 (1.7-2.4) mg/dl 06/20/23 06/20/23 06/20/23 Range/Units 20:39 16:36 16:35 WBC (4.8-10.8) K/ul RBC (4.20-5.40) M/uL Hgb (12.0-16.0) g/dl Hct (37.0-47.0) % MCV (80.0-100.0) fL MCH (25.0-34.0) pg MCHC (32.0-36.0) g/dL RDW Std Deviation (36.4-46.3) fL RDW Coeff of Tino (11.5-14.5) % Plt Count (130-400) K/uL MPV (9.4-12.4) fL Sodium (136-145) mmol/L Potassium (3.5-5.1) mmol/L Chloride (98-107) mmol/L Carbon Dioxide (21-32) mmol/L Anion Gap (3-11) BUN (6-23) mg/dl Creatinine (0.6-1.2) mg/dl Est Cr Clr Drug Dosing ml/min Est GFR ( Amer) ml/min Est GFR (Non-Af Amer) ml/min BUN/Creatinine Ratio (10-20) Glucose (70-99(Fasting)) mg/dl POC Glucose 204 H 370 H* 365 H* (70-99) mg/dl Calcium (8.6-10.3) mg/dl Magnesium (1.7-2.4) mg/dl PG Care Time/CCT Total # of Minutes Spent Total Time Spent with Patient: Total time spent is greater than 50% in coordination of care (as documented) at patient's floor/unit and/or counseling patient: Coding Level of Care Code 22912 SUB INP/OBS CARE 3/50MIN Diagnoses Degenerative disc disease, cervical M50.30 Uncontrolled type 2 diabetes mellitus with neurologic complication, with long- term current use of insulin E11.49; E11.65; Z79.4 S/P coronary artery stent placement Z95.5 Diabetic peripheral neuropathy E11.42 Anxiety F41.9 Gastroesophageal reflux disease without esophagitis K21.9 Esophagitis presence: without esophagitis Hyperglycemia R73.9 Cervicalgia M54.2 Edema of left upper arm R60.0 Hypomagnesemia E83.42 Vitamin D deficiency E55.9 Nausea & vomiting R11.2 Primary hypertension I10 Hypertension type: primary hypertension Dyslipidemia E78.5 (6) GERD (gastroesophageal reflux disease) Esophagitis presence: without esophagitis Qualified Code(s): K21.9 - Gastro- esophageal reflux disease without esophagitis (13) HTN (hypertension) Hypertension type: primary hypertension Qualified Code(s): I10 - Essential (primary) hypertension
[2023-06-21] MEDS: FLUTICASONE FUROATE 100MCG 14 PUFFS/INHALER INH SCH (08:18)
[2023-06-21] MEDS: LIDOCAINE 5% 1 PATCH TD SCH (08:19)
[2023-06-21] MEDS: UMECLIDINIUM/VILANTEROL 62.5/25MCG 7 PUFFS/INHALER INH SCH (08:26)
[2023-06-21] MEDS: LANTUS PER UNIT CHARGE SQ SCH (08:26)
[2023-06-21 08:27] LABS: BUN Creatinine Ratio 33.7 (10-20); Calcium 8.3 mg/dl (8.6-10.3); Est GFR (African American) 62.6 ml/min; Magnesium 2.2 mg/dl (1.7-2.4); Potassium 4.6 mmol/L (3.5-5.1)
[2023-06-21] MEDS: INSULIN ASPART PER UNIT CHARGE SC SCH ×4 (08:27→21:13)
--- NOTE | 2023-06-21 10:56 | Pain Management Consultation ---
Date of Consultation June 21, 2023 Assessment & Plan (1) Cervical spinal stenosis: (2) Cervical radiculopathy: (3) Cervicalgia: (4) DM2 (diabetes mellitus, type 2): Plan 1. Please of the patient has improved by 75% with conservative measures of IV steroids, gabapentin, Cymbalta. Recommend continuation of gabapentin and Cymbalta postdischarge. 2. We briefly discussed interventional pain management and her candidacy for cervical epidural steroid injections. Patient states she defers interventional pain management due to concerns over tolerability. In discussion with the hospitalist later this morning patient apparently wishes to discuss her candidacy further as she acknowledges she would be a good candidate for cervical epidural steroid injection. She has an appointment already scheduled at my office on 06/23/2023. This can be further discussed at that visit. 3. May consider utilization of Valium for periprocedural anxiolysis if requested by the patient. 4. Recommend course of physical therapy as an outpatient for overall strengthening. 5. Thank you very much for this consultation we will follow-up with her as an outpatient. History of Present Illness Attending Physician: Senthil Saenz History of Present Illness 78-year-old female who presented to the [facility] emergency room with left-sided cervical radiculopathy to the level of the thumb on 06/18/2023. She is right-hand dominant and notes only left-sided symptoms. She reports mild axial cervical spine pain with predominant radicular symptoms characterized as deep aching with intermittent shooting tingling. She reports that IV steroids have dramatically improved her by about 75% but still notes mild perceived weakness of the left hand compared to the right. She reports she is not having any side effects from gabapentin 100 mg p.o. 3 times daily and that in combination with the Cymbalta have provided benefit in diminishing her pain. She feels that she does not warrant any further interventional pain management at this time and has concerns over her tolerance to these procedures. She denies any injury as to the etiology of this pain and rates it at 1 out of 10 currently but over the last 4 to 5 days has pain up to 9 out of 10. She denies any bowel or bladder incontinence, foot drop, fever, chills, night sweats, saddle anesthesia, dropping of items. She does note perceived weakness of the hand and has a resting tremor prior to this episode. Pain Assessment Full Body Front + Back: 2 1. [facility] Combined Pain Scale: 1-Unpleasant Sensation - Occaisional uncomfortable feeling Pain scale - at its best (0-10): 1 Pain scale - at its worst (0-10): 9 Allergies Allergy/AdvReac Type Severity Reaction Status Date / Time cephalexin Allergy Intermediate Rash and Verified 06/18/23 15:28 itchiness Cephalosporins Allergy Intermediate Rash and Verified 06/18/23 15:28 itchiness Sulfa (Sulfonamide Allergy Intermediate Hives Verified 06/18/23 15:28 Antibiotics) Home Medications Medication Instructions Recorded Confirmed Type linaclotide 145 mcg capsule 145 mcg PO QAM PRN Constipation 04/05/19 06/18/23 History (Linzess) aspirin 81 mg tablet,delayed 81 mg PO QAM 10/24/21 06/18/23 History release albuterol sulfate 90 mcg/actuation 2 inha inhalation QID PRN 01/10/22 06/18/23 Rx aerosol inhaler shortness of breath or wheezing #1 g fluticasone fur. 100 mcg-umeclid 1 inh inhalation DAILY #28 ea 02/11/22 06/18/23 Rx 62.5 mcg-vilant 25 mcg inhalat.powder (Trelegy Ellipta) alirocumab 75 mg/mL subcutaneous 75 mg subcut Q14D #2 mL 05/21/22 06/18/23 Rx pen injector (Praluent Pen) gabapentin 100 mg capsule 100 mg PO HS #90 caps 09/17/22 06/18/23 Rx duloxetine 30 mg capsule,delayed 30 mg PO QAM #90 caps 09/18/22 06/18/23 Rx release ezetimibe 10 mg tablet (Zetia) 10 mg PO QAM #90 tabs 09/18/22 06/18/23 Rx metformin 500 mg tablet 1,000 mg (2 x 500 mg) PO BID #360 09/18/22 06/18/23 Rx tabs metoprolol succinate 100 mg 100 mg PO QAM #90 tabs 09/18/22 06/18/23 Rx tablet,extended release 24 hr ondansetron HCl 4 mg tablet 4 mg PO Q8H PRN nausea and 09/18/22 06/18/23 Rx vomiting #30 tabs pantoprazole 40 mg tablet,delayed 40 mg PO BID #180 tabs 09/18/22 06/18/23 Rx release rosuvastatin 40 mg tablet 40 mg PO QAM #90 tabs 09/18/22 06/18/23 Rx meclizine 25 mg tablet 25 mg PO BID PRN dizziness #30 tabs 10/05/22 06/18/23 Rx nitroglycerin 0.4 mg sublingual 0.4 mg sublingual UD PRN Chest 11/06/22 06/18/23 Rx tablet (Nitrostat) Pain #1 btl diclofenac sodium 1 % topical gel 2 g topical QID PRN Pain #100 grams 02/04/23 06/18/23 Rx (Arthritis Pain (diclofenac)) Vitamin B 12 Cypo Value 200+20 1,000 mcg PO DAILY 03/25/23 06/18/23 History buspirone 10 mg tablet 10 mg PO TID 03/25/23 06/18/23 History famotidine 20 mg tablet 20 mg PO BID 03/25/23 06/18/23 History isosorbide mononitrate 30 mg 30 mg PO QAM 03/25/23 06/18/23 History tablet,extended release 24 hr lidocaine 5 % topical patch 1 patch topical DAILY PRN pain #15 03/30/23 06/18/23 Rx (Lidoderm) ea metaxalone 400 mg tablet 400 mg PO HS PRN muscle pain #10 04/06/23 06/18/23 Rx tabs tramadol 50 mg tablet 50 mg PO HS PRN pain #20 tabs 05/05/23 06/18/23 Rx lisinopril 10 mg tablet 10 mg PO QAM 05/14/23 06/18/23 History ergocalciferol (vitamin D2) 1,250 50,000 unit PO WK 06/18/23 06/18/23 History mcg (50,000 unit) capsule folic acid 1 mg tablet 1 mg PO QAM 06/18/23 06/18/23 History insulin aspart U-100 100 unit/mL 20 unit subcut TID 06/18/23 06/18/23 History (3 mL) subcutaneous pen (Novolog FlexPen U-100 Insulin aspart) insulin degludec 100 unit/mL (3 20 unit subcut QPM 06/18/23 06/18/23 History mL) subcutaneous pen (Tresiba FlexTouch U-100 insulin) Pain History Pain Intensity Pain scale - at its best (0-10): 1 Pain scale - at its worst (0-10): 9 Patient History Medical History (Updated 06/21/23 @ 10:54 by Melinda Patel DO) Cervical spinal stenosis Edema Acute neck pain Type 2 diabetes mellitus with chronic kidney disease Hyperosmolar hyperglycemic state (HHS) Hypotension Chest pain Acute hyperglycemia Vomiting Chest pain History of COVID-19 2020 - resolved COVID Hyperglycemia due to type 2 diabetes mellitus Acute non-ST elevation myocardial infarction (NSTEMI) 11/28/2021 had [place] [facility] and follow with dr abdullahi apt 02/09/2022 Acute kidney injury Folic acid deficiency Vitamin B12 deficiency Asymptomatic bacteriuria Hypotension Back pain Abrasion Elevated troponin Fall Accelerated essential hypertension Elevated troponin Chest pain chronic chest pain and cardiac is negative Dyslipidemia Cervical pain (neck) Chronic pain syndrome Depression Diabetic gastroparesis Diabetic peripheral neuropathy GERD without esophagitis Lumbar spondylosis Mckeon esophagus CAD (coronary artery disease) s/p stents to RCA November 2005; s/p stents to LAD, LCx in January 2006; s/p stents to RCA in 08/2006 IBS (irritable bowel syndrome) Diabetes mellitus, type 2 IDDM Myocardial Infarction [place]- November 2005, January 2006, Aug 2006 3 total within an 8 month span--HX [place] CATH [place] [facility] [place] FOLLOWS WITH DR. ABDULLAHI Surgical History Status post trigger finger release right thumb S/P coronary artery stent placement s/p stents to RCA November 2005; s/p stents to LAD, LCx in January 2006; s/p stents to RCA in 08/2006 History of total hysterectomy with bilateral salpingo-oophorectomy (BSO) History of lumbar spinal fusion History of total right knee replacement (TKR) History of esophageal dilatation History of colonoscopy with polypectomy History of esophagogastroduodenoscopy (EGD) History of tooth extraction all teeth History of cholecystectomy History of cataract surgery BL History of cardiac cath last 2012 [place] [facility] [place] no [place]--s/p stents to RCA November 2005; s/p stents to LAD, LCx in January 2006; s/p stents to RCA in 08/2006 Family History Brother Myocardial infarction Anxiety Heart disease Hypertension Cancer Sister Family history of reaction to anesthesia difficulty waking Hypertension Heart disease Myocardial infarction Anxiety Cancer Diabetes Father Anxiety Heart disease Hypertension Mother Anxiety Hypertension Heart disease Unknown Cancer skin, GI Denies family history of Ovarian cancer Prostate cancer Breast cancer Colorectal cancer Stroke Social History Smoking Status: Never smoker Tobacco Type: Cigarettes Age Started Using Tobacco: 18; Age Quit Using Tobacco: 57; Second Hand Exposure: No; Do You Dip or Chew Tobacco: No; Hx Alcohol Use: No Hx Substance Use: No Preferred Language: Setswana Communication Ability: Effective Visual Impairment: Limited Hearing Ability: Normal Track Rider Required: No Beliefs That Will Affect Care: None marital status: / Current Living Situation: Alone Current Living Situation Comment: apartment building current occupational status: retired and disabled How many Children do You have: 3 Other Information That Helps Us Care for You: No Feels Safe at Home: No Is there a partner from a previous relationship who is making you feel unsafe now?: No Any Concerns about Your Family Situation: No Would You Like to Speak to Someone About Your Situation: No Safety Concerns: Feels Safe At This Time Childhood Exposure to Second-Hand Smoke: No caffeine: Yes (drinks coffee, diet pepsi occasionally ) Dental Care, Regularly: No Physical Activity Frequency: Does not Exercise Seatbelt Use: always Sunscreen Use: No Assistive Devices: Walker Physical Exam 2 Physical Exam: Constitutional: Well-developed, well-nourished, healthy-appearing, normal weight Psych: Awake, alert, and oriented 3 with normal affect and mood. Recent memory appears grossly intact Eyes: Pupils are equally round and reactive to light with normal size pupils, eyelids appear normal Ear, nose, mouth, and throat: Moist nasal and oral membranes, lips and tongues appear normal, no external ear abnormalities are noted Neck: The trachea is midline without deviation and no thyromegaly is noted Respiratory: Normal respiratory effort without distress, no audible wheezes or rhonchi CV: Normal S1 and S2, 2+ radial pulses bilaterally Chest: Deferred Musculoskeletal: Head is normocephalic and atraumatic, gait not observed sitting in a bedside chair during examination Cervical: Lordotic curve: Slight loss of typical lordotic curve Range of motion is decreased with extension, acceptable flexion, side-bending, rotation Tenderness: Mildly tender over the axial midline left side only Facet provocation: Positive bilaterally Hoffmans maneuver: Negative bilaterally Step-off injuries: None Strength: Strength is equal bilaterally with 4+ out of 5 strength in all planes with the exception of left hand cooker tender at 4 out of 5 Sensation of upper extremities: Intact bilaterally Deep tendon reflexes: Rated at 1+ in bilateral biceps, triceps, brachial radialis Myofascial spasm: Mild cervical paraspinal and trapezius spasm. A few scattered discrete trigger points noted Lumbar: Strength: Strength is grossly equal bilaterally with 5 out of 5 strength in all planes Pathologic reflexes noted: None Skin: No rashes, lesions, ulcers, or induration noted Neuro: No nystagmus noted, the tongue is midline, the patient is able to rotate their head bilaterally : Deferred Results (Pain Clinic) Diagnostic Review MRI: non enhanced, reports reviewed and findings discussed with patient MRI Findings: 05/14/23 MR cervical spine wo con HISTORY: 78 years-old Female cervical radiculopathy b/l Acute neck pain with left upper extremity numbness. COMPARISON: 04/29/2023. TECHNIQUE: Multiplanar, multisequence MRI of the cervical spine was obtained without the use of IV contrast. FINDINGS: Partially empty sella incidentally noted. No acute fracture or subluxation. No marrow edema or marrow replacement is present. There is moderate multilevel disc space narrowing within the cervical spine. C2-C3: The central canal and neural foramen are patent. C3-C4: There is mild disc space narrowing with posterior disc osteophyte complex. This effaces the ventral thecal sac. There is mild central canal stenosis, AP dimension of the thecal sac measuring 9 mm. There is mild bilateral neural foraminal stenosis. C4-C5: There is moderate disc space narrowing with posterior disc osteophyte complex which effaces the ventral thecal sac and results in mild central canal stenosis, AP dimension of the thecal sac measuring 7 mm. There is severe right neural foraminal stenosis due to disc osteophyte complex and uncovertebral hypertrophy. There is mild left neural foraminal stenosis. C5-C6: There is mild disc space narrowing. Posterior disc osteophyte complex effaces the ventral thecal sac. There is mild central canal stenosis, AP dimension of the thecal sac measuring 8 mm. There is mild right and moderate left neural foraminal stenosis. C6-C7: There is mild posterior disc osteophyte complex. This effaces the ventral thecal sac. Central canal is mildly narrowed, AP dimension of the thecal sac measuring 8 mm. Neural foramen are patent. C7-T1: Central canal and neural foramen are patent. IMPRESSION: 1. No change compared to the study obtained on 04/29/2023. 2. Discogenic degeneration as above resulting in associated multilevel central canal and foraminal stenosis. 3. Normal signal of the cervical spinal cord. Previous Records Review Previous Records: personally reviewed by me
[2023-06-21] MEDS ORDERED: methylPREDNISolone 20 MG in SYRINGE 0 ML IV SCH (18:00)
[2023-06-21] MEDS ORDERED: LANTUS PER UNIT CHARGE SQ SCH (21:00)
[2023-06-22] MEDS: ACETAMINOPHEN 500 MG TAB PO SCH ×3 (05:48→17:57)
[2023-06-22 08:23] LABS: Albumin Globulin Ratio 1.2 (0.9-2); Albumin Level 3.1 gm/dl (3.4-5.0); Bilirubin,Total 0.2 mg/dl (0.2-1.0); Calcium 8.4 mg/dl (8.6-10.3); Creatinine Clr Calc Pharmacy 51.7 ml/min; Est GFR (African American) 76.1 ml/min; Est GFR (Non-African American) 65.6 ml/min; Globulin 2.5 gm/dl (2.5-4.0); Magnesium 2.3 mg/dl (1.7-2.4); Potassium 4.7 mmol/L (3.5-5.1); Total Protein 5.6 gm/dl (6.0-8.3)
[2023-06-22] MEDS: EZETIMIBE 10 MG TAB PO SCH (08:37)
[2023-06-22] MEDS: DULoxetine HCL 30 MG CAP PO SCH (08:37)
[2023-06-22] MEDS: PANTOprazole 40 MG TAB PO SCH ×2 (08:37→21:24)
[2023-06-22] MEDS: ROSUVASTATIN CALCIUM 20 MG TAB PO SCH (08:37)
[2023-06-22] MEDS: GABAPENTIN 100 MG CAP PO SCH ×3 (08:38→21:23)
[2023-06-22] MEDS: FOLIC ACID 1 MG TAB PO SCH (08:38)
[2023-06-22] MEDS: lisinopril 10 MG TAB PO SCH (08:39)
[2023-06-22] MEDS: METOPROLOL SUCC 50MG EXT REL TAB PO SCH (08:39)
[2023-06-22] MEDS: busPIRone 5 MG TAB PO SCH ×3 (08:39→21:23)
[2023-06-22] MEDS: FAMOTIDINE 20 MG TAB PO SCH ×2 (08:39→21:23)
[2023-06-22] MEDS: ISOSORBIDE MONO EXTENDED REL 30 MG TABCR PO SCH (08:40)
[2023-06-22] MEDS: ASPIRIN 81 MG ECTAB PO SCH (08:40)
[2023-06-22] MEDS: UMECLIDINIUM/VILANTEROL 62.5/25MCG 7 PUFFS/INHALER INH SCH (08:40)
[2023-06-22] MEDS: FLUTICASONE FUROATE 100MCG 14 PUFFS/INHALER INH SCH (08:40)
[2023-06-22] MEDS: LIDOCAINE 5% 1 PATCH TD SCH (08:43)
[2023-06-22] MEDS: INSULIN ASPART PER UNIT CHARGE SC SCH ×4 (08:53→21:16)
--- NOTE | 2023-06-22 08:55 | Hospitalist Progress Note ---
Date of Service June 22, 2023 Assessment & Plan (1) Degenerative disc disease, cervical: Plan: Cervical radiculopathy b/l UE w/ decreased ability to lift arms/pain from her neck w/ decreased ability/ROM w/ rotation of the neck on admission, IMPROVING Patient just discharged on 05/19 on prednisone taper for cervical radiculopathy. Was seen by Dr Cheung during that time and did not feel surgery was indicated as presentation was not entirely consistent with cervical stenosis and radiculopathy, checked ESR/CRP for inflammatory disease work-up (CRP mild elevation in 2s, ESR wnl). Ultimately was for rehab but made improvements and went home on taper w/ HH services She notes her PCP did get another prednisone taper but did not want to continue. No falls/trauma Reports but difficulty w/ ADLs/preparing food for herself and was attempting to get waiver care reported, notes had EMG testing and unclear cause. ?underlying carpel tunnel/cubital tunnel w/ neuropathy w/ her uncontrolled diabetes MRI from prior visit 05/14/23 with degenerative disc disease in cervical spine; defer further imaging for now as pain is consistent with prior and no acute neurologic changes. CT cervical spine without acute changes. * Notes no fractures. No subluxation. Prevertebral soft tissues and the C1-C2 interval are intact. No pneumothorax. Mild facet degenerative changes throughout the majority cervical spine. Mild disc space narrowing at C3-C4. Moderate disc space narrowing and small endplate osteophytes at C4-C5 and C5- C6. There is mild central canal and bilateral neural foraminal narrowing at these levels. This is better appreciated on the prior spine MRI. Straightening of the cervical spine. Pain control: Tramadol, tylenol, lidocaine, heat Started Solu-medrol IV 06/18, decreased to 20mg BID Gabapentin increased to 200mg TID and reporting GOOD PAIN CONTROL, improvement in mobility Converted steroids to prednisone 40mg PO for 06/22 and plan to decrease by 10mg daily to complete taper to see if any rebound issues off steroids as she's had previously Pain management consulted, can have f/u for possible injection as discussed further with patient as DO SUSPECT SIGNIFICANT IMPROVEMENT if she were to go through with this. Has appt Wednesday w/ Dr Patel (saw inpatient, can reach out in AM) PT/OT consulted, pt wanting [facility] at mt (unable to complete ADLs at home/preparing foods for herself, suspect benefit at least short term and continued discussions). To note, she had been doing well/dc last time and 30 day readmit w/ steroid taper at mt last time and DO NOT BELIEVE BEST FOR HER TO DC HOME. Patient agreeable per discussion AM 06/22. 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 Given 5u IV insulin and her home glargine 20u HS on admission w/ improvement in BSGs to 140s-180s however started IV steroids and suspected significant rise given prior admission data and pharmacy was consulted for glycemic control yesterday afternoon and BSGs elevated to 400s PM 06/19 w/ intervention and improved to 159 on AM labs (was also provided additional 500cc NSS to prevent DKA Continued issues w/ hyperglycemia overnight 06/20-06/21 and given patient w/ significant improvement decision to decrease to BID dosing for 06/21 and now on PO prednisone as above Pharmacy consulted for glycemic -- appreciate assistance (3) S/P coronary artery stent placement: Plan: Hx CAD, HTN, HLD Hx CAD s/p PCI (LAD, Cx, RCA). Prior MD in past described as sharp substernal CP w/ radiation to LEFT arm She DENIES sensation similar to her prior MIs as noting her BP was 226/165 on arrival with reported n/v/hyperglycemia (?DKA but no anion gap) CT head obtained given risk/headache, NEGATIVE Given her home meds STAT on admission BP stable and much improved w/ pain control and remains on home metoprolol, isosorbide mononitrate, lisinopril, ezetimibe, rosuvastatin, ASA No chest pain reported (baseline SOB controlled w/ inhalers and on room air 97%) (4) Diabetic peripheral neuropathy: Plan: uncontrolled diabetic, A1c 11.5, elevated BSGs on admission. Prior B12/folate deficiency and replacement (5) Anxiety: Plan: Anxiety & Depression -continue buspirone, duloxetine (also for neuropathy and can consider increasing to 60mg daily as well pending tolerability to gabapentin but she has been tolerating this) (6) GERD (gastroesophageal reflux disease): Plan: Continue PPI BID, H2 BID Hx barretts/erosive esophagitis as well No increased issues reported at present but does report some from time to time Should have GI f/u for EGD at d/c as doesn't appear done recently (7) Hyperglycemia: Plan: improved since admission but then was high evening 06/19 after starting steroids as above do suspect given A1c that patient does have issues w/ noncompliance at home tx as outlined above had low overnight to 64-68 but 101 this morning and converted to PO steroids. Pharmacy notified (8) Cervicalgia: Plan: as above ESR/CRP checked, elevated but w/ hyperglycemia. Not significantly elevated to concern about osteo at present, ESR not >90 to suggest PMR w/ weakness or other Therapy evals/pain control (9) Edema of left upper arm: Plan: checked venous doppler -- NEGATIVE. weirdly improved since starting steroids? heat/pain control monitor (10) Hypomagnesemia: Plan: ?2nd to PPI use Mag 1.5 -- IV replacement ordered. WNL on repeat Monitor in AM but consider PO supplementation given prior/frequent lows (11) Vitamin D deficiency: Plan: Prior Vit D level 12.5 in Sep 2022 On ergocalciferol 50,000 weekly, had been taking Vit D low 12.8 on repeat PTH appropriately elevated (however Ca 10.5 on admit but dehydrated w/ n/v and prior normal/lows) --? underlying hyperparathyroidism vs from chronic renal disease given her uncontrolled DM (12) Nausea & vomiting: Plan: reported nausea/vomiting night prior to admission, nothing further and tolerating diet without issues and moving her bowels (13) HTN (hypertension): Plan: BPs stable, home meds continued (14) Dyslipidemia: Plan: continue statin Plan DVT proph: Lovenox SQ while inpatient PT/OT consulted, patient agreeable to [facility] per discussion -- able to accomodate on as notified this morning and CM to inform patient this afternoon Admission and Anticipated Discharge Date Admission Date: June 20, 2023 Subjective Eval this morning, resting in bed. Doing MUCH better, pain very well controlled and not having to use any tramadol. She mentioned she thinks she is good enough to go home, however discussed prior admission was doing well and repeat admission in <30 days with issues ADLs at home and she was agreeable to [facility] based on recommendation and they can monitor her progress w/ taper. No fever/chills, chest pain, shortness of breath, abdominal pain, nausea, vomiting. Questions/concerns addressed at this time. Physical Exam 2 Physical Exam: General: elderly female, chronically ill appearing, resting in bed but appearing much better HEENT: normocephalic, atraumatic, mmm, trachea midline Resp: even/unlabored, no significant m/r/g, on room air CV: RRR, no significant mrg, trace pedal edema (slightly worse on her LLE compared to the right but reporting chronic -- stable on repeat exam and improved) GI: +BS, soft/NT : no ramirez MSK/Neuro: increased ROM of neck, now able to lift arms above her head, strength improving b/l LE testing w/ slight decreased strength but equal bilaterally follows commands, no facial droop or slurred speech Psych: AOx3, cooperative and pleasant with exam Results & Data Results & Data Vital Signs (Past 12 Hours) Vital Signs Temp Pulse Resp BP Pulse Ox O2 Del Method 06/22/23 07:27 36.9 C 58 L 18 135/73 97 Room Air Laboratory Results 06/21/23 07:32 06/22/23 07:06 PG Care Time/CCT Total # of Minutes Spent Total Time Spent with Patient: Total time spent is greater than 50% in coordination of care (as documented) at patient's floor/unit and/or counseling patient: Coding Level of Care Code 56521 SUB INP/OBS CARE 3/50MIN Diagnoses Degenerative disc disease, cervical M50.30 Uncontrolled type 2 diabetes mellitus with neurologic complication, with long- term current use of insulin E11.49; E11.65; Z79.4 S/P coronary artery stent placement Z95.5 Diabetic peripheral neuropathy E11.42 Anxiety F41.9 Gastroesophageal reflux disease without esophagitis K21.9 Esophagitis presence: without esophagitis Hyperglycemia R73.9 Cervicalgia M54.2 Edema of left upper arm R60.0 Hypomagnesemia E83.42 Vitamin D deficiency E55.9 Nausea & vomiting R11.2 Primary hypertension I10 Hypertension type: primary hypertension Dyslipidemia E78.5 (6) GERD (gastroesophageal reflux disease) Esophagitis presence: without esophagitis Qualified Code(s): K21.9 - Gastro- esophageal reflux disease without esophagitis (13) HTN (hypertension) Hypertension type: primary hypertension Qualified Code(s): I10 - Essential (primary) hypertension
[2023-06-22] MEDS ORDERED: predniSONE 20 MG TAB PO SCH (09:00)
[2023-06-22] MEDS ORDERED: LANTUS PER UNIT CHARGE SC SCH (09:00)
[2023-06-23] MEDS: ACETAMINOPHEN 500 MG TAB PO SCH ×3 (00:48→17:32)
[2023-06-23] MEDS: LANTUS PER UNIT CHARGE SC SCH (08:44)
[2023-06-23] MEDS: INSULIN ASPART PER UNIT CHARGE SC SCH ×4 (08:44→21:01)
[2023-06-23] MEDS: ROSUVASTATIN CALCIUM 20 MG TAB PO SCH (08:45)
[2023-06-23] MEDS: ISOSORBIDE MONO EXTENDED REL 30 MG TABCR PO SCH (08:45)
[2023-06-23] MEDS: PANTOprazole 40 MG TAB PO SCH ×2 (08:45→20:55)
[2023-06-23] MEDS: lisinopril 10 MG TAB PO SCH (08:46)
[2023-06-23] MEDS: predniSONE 10 MG TABLET PO SCH (08:46)
[2023-06-23] MEDS: LIDOCAINE 5% 1 PATCH TD SCH (08:46)
[2023-06-23] MEDS: METOPROLOL SUCC 50MG EXT REL TAB PO SCH (08:46)
[2023-06-23] MEDS: FOLIC ACID 1 MG TAB PO SCH (08:46)
[2023-06-23 08:47] LABS: Calcium 8.2 mg/dl (8.6-10.3); Magnesium 2.2 mg/dl (1.7-2.4); Potassium 4.3 mmol/L (3.5-5.1)
[2023-06-23] MEDS: UMECLIDINIUM/VILANTEROL 62.5/25MCG 7 PUFFS/INHALER INH SCH (08:47)
[2023-06-23] MEDS: GABAPENTIN 100 MG CAP PO SCH ×3 (08:47→20:55)
[2023-06-23] MEDS: FLUTICASONE FUROATE 100MCG 14 PUFFS/INHALER INH SCH (08:47)
[2023-06-23] MEDS: DULoxetine HCL 30 MG CAP PO SCH (08:48)
[2023-06-23] MEDS: busPIRone 5 MG TAB PO SCH ×3 (08:48→20:55)
[2023-06-23] MEDS: EZETIMIBE 10 MG TAB PO SCH (08:48)
[2023-06-23] MEDS: ASPIRIN 81 MG ECTAB PO SCH (08:48)
[2023-06-23] MEDS: FAMOTIDINE 20 MG TAB PO SCH ×2 (08:48→20:55)
[2023-06-23 08:53] LABS: BUN Creatinine Ratio 31.2 (10-20); Creatinine Clr Calc Pharmacy 47.8 ml/min; Est GFR (African American) 69.2 ml/min; Est GFR (Non-African American) 59.7 ml/min
--- NOTE | 2023-06-23 15:02 | Pharmacy Report ---
Pharmacy Glycemic Short Note 2 - Date of Service June 23, 2023 - Glycemic Short BSG Results (Last 24 hours): 06/22/23 06/22/23 06/23/23 16:49 20:34 07:34 Glucose POC Glucose 122 H 231 H 63 L* 06/23/23 06/23/23 06/23/23 07:36 07:59 11:20 Glucose 60 L POC Glucose 69 L* 159 H OUTPATIENT ANTIDIABETIC REGIMEN: * Novolog 20 units SQ TID * Tresiba 20 units SQ HS * Metformin 1000 mg PO BID HbA1c = 11.5% on 05/15/23 ASSESSMENT: 06/23: * Patient received 25 units basal and 34 units bolus insulin yesterday. * Fasting BSG today was 63 mg/dl. Basal insulin dose reduced to 20 units this morning. * Steroids changed to PO prednisone 40 mg yesterday, tapering down by 10 mg each day. * Novolog parameters loosened yesterday and further this morning. 06/20: * Yesterday patient received total of 94 units of insulin: 30 units basal and 64 units bolus. * BSGs trended up high above 459 mg/dl at HS, which is steroid induced. * Fasting BSG today was 159 mg/dl. Basal insulin increased to 25 units BID (30 units more than home dose ~0.4 units/kg) * IV steroid dose decreased to 20 mg Solu-medrol q8h. Since pre-lunch BSG trended up above 300 mg/dl, Novolog carb ratio tightened. * Expect BSG to trend down this evening 06/19: * 78 y/o F admitted today with cervical radiculopathy. She has history of diabetes managed on short and long acting insulins plus oral Metformin. Given high A1c, questionable compliance with anti-diabetic meds. * Patient received 20 units of basal insulin last night with adequate control this morning - fasting BSG today was 130 mg/dl. Novolog was also started last night. * Today Solu Medrol IV 40 mg q8h started in the afternoon and pharmacy is now consulted for glycemic management. * Since IV steroids are started, Novolog parameters tightened with dinner. * Basal dose increased to almost a full stress of 3 starting at HS. * During recent admission in April, patient required BID doses of basal insulin. Will re-assess dosing tomorrow. PLAN FOR INPATIENT GLYCEMIC CONTROL: * Hold outpatient oral diabetes medications * Basal insulin * Lantus 20 units SQ QAM * Bolus insulin * NovoLog per scale ACHS or Q6hrs while NPO * Goal Range: Low 110 mg/dL - High 140 mg/dL * Correction Factor: 20 mg/dL/unit * Nutritional / Prandial insulin per carb ratio of 1 unit per 7 grams CHO consumed
--- NOTE | 2023-06-23 19:42 | Hospitalist Progress Note ---
Date of Service June 23, 2023 Assessment & Plan (1) Degenerative disc disease, cervical: Plan: Cervical radiculopathy b/l UE w/ decreased ability to lift arms/pain from her neck w/ decreased ability/ROM w/ rotation of the neck on admission, IMPROVING Patient discharged on 05/19 on prednisone taper for cervical radiculopathy. Was seen by Dr Cheung during that time and did not feel surgery was indicated made improvements and went home on taper w/ HH services Reports but difficulty w/ ADLs/preparing food for herself and was attempting to get waiver care reported, notes had EMG testing and unclear cause. MRI from prior visit 05/14/23 with degenerative disc disease in cervical spine; defer further imaging for now as pain is consistent with prior and no acute neurologic changes. CT cervical spine without acute changes. Pain control: Tramadol, tylenol, lidocaine, heat Gabapentin increased to 200mg TID and reporting GOOD PAIN CONTROL, improvement in mobility parenteral steroids converted to prednisone 40mg PO for 06/22 and plan to decrease by 10mg daily to complete taper to see if any rebound issues off steroids as she's had previously Pain management consulted, can have f/u for possible injection. Has appt ay w/ Dr Patel (saw inpatient, can reach out in AM) PT/OT consulted, [place] [facility] [place] CM to discuss and [facility] able to accommodate on (2) Uncontrolled type 2 diabetes mellitus with neurologic complication, with long-term current use of insulin: Plan: A1c 11.5 in April Home regimen Novolog 20u TID (although HPI states taking 8u TID) tresiba 20u HS, 1gm metformin BID at home (?compliance given A1c 11.5) persistent hyperglycemia seconday to steroids Diabetic peripheral neuopathy Prior B12/folate deficiency and replacement Pharmacy consulted for glycemic -- appreciate assistance (3) S/P coronary artery stent placement: Plan: Hx CAD, HTN, HLD Hx CAD s/p PCI (LAD, Cx, RCA). Prior [place] in past described as sharp substernal CP w/ radiation to LEFT arm She DENIES sensation similar to her prior MIs as noting her BP was 226/165 on arrival with reported n/v/hyperglycemia (?DKA but no anion gap) CT head obtained given risk/headache, NEGATIVE Given her home meds STAT on admission BP stable and much improved w/ pain control and remains on home metoprolol, isosorbide mononitrate, lisinopril, ezetimibe, rosuvastatin, ASA No chest pain reported (baseline SOB controlled w/ inhalers and on room air 97%) (4) Anxiety: Plan: Anxiety & Depression -continue buspirone, duloxetine (also for neuropathy and can consider increasing to 60mg daily as well pending tolerability to gabapentin but she has been tolerating this) (5) GERD (gastroesophageal reflux disease): Plan: Continue PPI BID, H2 BID Hx barretts/erosive esophagitis as well No increased issues reported at present but does report some from time to time Should have GI f/u for EGD at d/c as doesn't appear done recently (6) Hypomagnesemia: Plan: ?2nd to PPI use Mag 1.5 -- IV replacement ordered. WNL on repeat Monitor in AM but consider PO supplementation given prior/frequent lows (7) Vitamin D deficiency: Plan: Prior Vit D level 12.5 in Sep 2022 On ergocalciferol 50,000 weekly, had been taking Vit D low 12.8 on repeat PTH appropriately elevated (however Ca 10.5 on admit but dehydrated w/ n/v and prior normal/lows) --? underlying hyperparathyroidism vs from chronic renal disease given her uncontrolled DM (8) Edema of left upper arm: Plan: checked venous doppler -- NEGATIVE. weirdly improved since starting steroids? heat/pain control monitor Plan DVT proph: Lovenox SQ while inpatient PT/OT consulted, patient agreeable to [facility] per discussion -- able to accomodate on as notified this morning and CM to inform patient Admission and Anticipated Discharge Date Admission Date: June 20, 2023 Results & Data Results & Data Vital Signs (Past 12 Hours) Vital Signs Temp Pulse Resp BP Pulse Ox O2 Del Method 06/23/23 15:42 98.2 F 68 16 107/67 98 Room Air PG Care Time/CCT Total # of Minutes Spent Total Time Spent with Patient: Total time spent is greater than 50% in coordination of care (as documented) at patient's floor/unit and/or counseling patient: Coding Diagnoses Degenerative disc disease, cervical M50.30 Uncontrolled type 2 diabetes mellitus with neurologic complication, with long- term current use of insulin E11.49; E11.65; Z79.4 S/P coronary artery stent placement Z95.5 Anxiety F41.9 Gastroesophageal reflux disease without esophagitis K21.9 Esophagitis presence: without esophagitis Hypomagnesemia E83.42 Vitamin D deficiency E55.9 Edema of left upper arm R60.0 (5) GERD (gastroesophageal reflux disease) Esophagitis presence: without esophagitis Qualified Code(s): K21.9 - Gastro- esophageal reflux disease without esophagitis
--- NOTE | 2023-06-23 22:33 | Hospitalist Progress Note ---
Date of Service June 23, 2023 Assessment & Plan (1) Degenerative disc disease, cervical: Plan: Cervical radiculopathy b/l UE w/ decreased ability to lift arms/pain from her neck w/ decreased ability/ROM w/ rotation of the neck on admission, IMPROVING Patient discharged on 05/19 on prednisone taper for cervical radiculopathy. Was seen by Dr Cheung during that time and did not feel surgery was indicated made improvements and went home on taper w/ HH services Reports but difficulty w/ ADLs/preparing food for herself and was attempting to get waiver care reported, notes had EMG testing and unclear cause. MRI from prior visit 05/14/23 with degenerative disc disease in cervical spine; defer further imaging for now as pain is consistent with prior and no acute neurologic changes. CT cervical spine without acute changes. Pain control: Tramadol, tylenol, lidocaine, heat Gabapentin increased to 200mg TID and reporting GOOD PAIN CONTROL, improvement in mobility parenteral steroids converted to prednisone 40mg PO for 06/22 and plan to decrease by 10mg daily to complete taper to see if any rebound issues off steroids as she's had previously Pain management consulted, can have f/u for possible injection. Has appt ay w/ Dr Patel (saw inpatient, can reach out in AM) PT/OT consulted, pt wanting [facility] at [place]. CM to discuss and [facility] able to accommodate on ; Patient is agreeable with plan on 06/23 (2) Uncontrolled type 2 diabetes mellitus with neurologic complication, with long-term current use of insulin: Plan: A1c 11.5 in April Home regimen Novolog 20u TID (although HPI states taking 8u TID) tresiba 20u HS, 1gm metformin BID at home (?compliance given A1c 11.5) persistent hyperglycemia seconday to steroids Diabetic peripheral neuopathy Prior B12/folate deficiency and replacement Pharmacy consulted for glycemic -- appreciate assistance (3) S/P coronary artery stent placement: Plan: Hx CAD, HTN, HLD Hx CAD s/p PCI (LAD, Cx, RCA). Prior [place] in past described as sharp substernal CP w/ radiation to LEFT arm She DENIES sensation similar to her prior MIs as noting her BP was 226/165 on arrival with reported n/v/hyperglycemia (?DKA but no anion gap) CT head obtained given risk/headache, NEGATIVE Given her home meds STAT on admission BP stable and much improved w/ pain control and remains on home metoprolol, isosorbide mononitrate, lisinopril, ezetimibe, rosuvastatin, ASA No chest pain reported (baseline SOB controlled w/ inhalers and on room air 97%) (4) Anxiety: Plan: Anxiety & Depression -continue buspirone, duloxetine (also for neuropathy and can consider increasing to 60mg daily as well pending tolerability to gabapentin but she has been tolerating this) (5) GERD (gastroesophageal reflux disease): Plan: Continue PPI BID, H2 BID Hx barretts/erosive esophagitis as well No increased issues reported at present but does report some from time to time Should have GI f/u for EGD at d/c as doesn't appear done recently (6) Hypomagnesemia: Plan: ?2nd to PPI use Mag 1.5 -- IV replacement ordered. WNL on repeat Monitor in AM but consider PO supplementation given prior/frequent lows (7) Vitamin D deficiency: Plan: Prior Vit D level 12.5 in Sep 2022 On ergocalciferol 50,000 weekly, had been taking Vit D low 12.8 on repeat PTH appropriately elevated (however Ca 10.5 on admit but dehydrated w/ n/v and prior normal/lows) --? underlying hyperparathyroidism vs from chronic renal disease given her uncontrolled DM (8) Edema of left upper arm: Plan: checked venous doppler -- NEGATIVE. weirdly improved since starting steroids? heat/pain control monitor Plan DVT proph: Lovenox SQ while inpatient PT/OT consulted, patient agreeable to [facility] per discussion -- able to accomodate on as notified this morning and CM to inform patient Admission and Anticipated Discharge Date Admission Date: June 20, 2023 Subjective Patient reports feeling well. Her pain is controlled. Review of Systems Review of Systems: All systems reviewed & are unremarkable except as noted in HPI & below Physical Exam Physical Exam: General: elderly female, sitting upright in chair smiling HEENT: normocephalic, atraumatic Psych: AOx3] Results & Data Results & Data Vital Signs (Past 12 Hours) Vital Signs Temp Pulse Resp BP Pulse Ox O2 Del Method 06/23/23 20:51 36.4 C L 65 16 134/75 97 Room Air 06/23/23 15:42 36.8 C 68 16 107/67 98 Room Air PG Care Time/CCT Total # of Minutes Spent Total Time Spent with Patient: Total time spent is greater than 50% in coordination of care (as documented) at patient's floor/unit and/or counseling patient: Coding Level of Care Code 87910 SUB INP/OBS CARE 2/35MIN Diagnoses Degenerative disc disease, cervical M50.30 Uncontrolled type 2 diabetes mellitus with neurologic complication, with long- term current use of insulin E11.49; E11.65; Z79.4 S/P coronary artery stent placement Z95.5 Anxiety F41.9 Gastroesophageal reflux disease without esophagitis K21.9 Esophagitis presence: without esophagitis Hypomagnesemia E83.42 Vitamin D deficiency E55.9 Edema of left upper arm R60.0 (5) GERD (gastroesophageal reflux disease) Esophagitis presence: without esophagitis Qualified Code(s): K21.9 - Gastro- esophageal reflux disease without esophagitis
[2023-06-24] MEDS: ACETAMINOPHEN 500 MG TAB PO SCH ×2 (02:01→08:56)
[2023-06-24] MEDS: predniSONE 10 MG TABLET PO SCH (08:48)
[2023-06-24] MEDS: METOPROLOL SUCC 50MG EXT REL TAB PO SCH (08:48)
[2023-06-24] MEDS: ROSUVASTATIN CALCIUM 20 MG TAB PO SCH (08:49)
[2023-06-24] MEDS: FAMOTIDINE 20 MG TAB PO SCH (08:49)
[2023-06-24] MEDS: GABAPENTIN 100 MG CAP PO SCH (08:49)
[2023-06-24] MEDS: EZETIMIBE 10 MG TAB PO SCH (08:49)
[2023-06-24] MEDS: FOLIC ACID 1 MG TAB PO SCH (08:50)
[2023-06-24] MEDS: ISOSORBIDE MONO EXTENDED REL 30 MG TABCR PO SCH (08:50)
[2023-06-24] MEDS: busPIRone 5 MG TAB PO SCH (08:50)
[2023-06-24] MEDS: DULoxetine HCL 30 MG CAP PO SCH (08:50)
[2023-06-24] MEDS: ASPIRIN 81 MG ECTAB PO SCH (08:50)
[2023-06-24] MEDS: LIDOCAINE 5% 1 PATCH TD SCH (08:51)
[2023-06-24] MEDS: lisinopril 10 MG TAB PO SCH (08:51)
[2023-06-24] MEDS: PANTOprazole 40 MG TAB PO SCH (08:51)
[2023-06-24] MEDS: UMECLIDINIUM/VILANTEROL 62.5/25MCG 7 PUFFS/INHALER INH SCH (08:52)
[2023-06-24] MEDS: FLUTICASONE FUROATE 100MCG 14 PUFFS/INHALER INH SCH (08:53)
[2023-06-24] MEDS: INSULIN ASPART PER UNIT CHARGE SC SCH (08:56)
[2023-06-24] MEDS: LANTUS PER UNIT CHARGE SC SCH (08:56)
[2023-06-24] MEDS ORDERED: NovoLIN-N (NPH) PER UNIT CHARGE SQ SCH (09:00)
--- NOTE | 2023-06-24 16:58 | Discharge Summary ---
Date of Service June 24, 2023 Admission HPI Per Admitting Provider 78 year old female with a past medical history of cervical radiculopathy, anxiety, IBS, GERD, poorly managed DM2, HTN, CAD, CKD3, anemia presenting with worsening neck pain. She describes that pain as primarily in the cervical spine and it radiates down both her arms. Pain she is having today is similar to pain that she has had in the past, but has been getting worse over the past couple of days. Limiting the ROM in her neck and she hasn't been able to sleep well. She was treated with a prednisone taper 06/03- 06/09, has struggled with hyperglycemia with steroids in the past. Has been taking 1000mg Tylenol q8 for pain. She lives alone. Does have home health. Has family in the area; daughter, sister. Does note that she was having some nausea this morning, which has since resolved. ED Work Up Significant For: Glucose= 345, CT Cervical Spine largely uncharged from prior:Mild facet degenerative changes throughout the majority cervical spine. Mild disc space narrowing at C3-C4. Moderate disc space narrowing and small endplate osteophytes at C4-C5 and C5-C6. Principal Diagnosis Cervical radiculopathy DDD cervical spine with cervalgia Discharge Exam patient regular and appropriate. No pain to movement of her neck. Good bilateral arm strength Discharge Data Allergies Allergy/AdvReac Type Severity Reaction Status Date / Time cephalexin Allergy Intermediate Rash and Verified 06/18/23 15:28 itchiness Cephalosporins Allergy Intermediate Rash and Verified 06/18/23 15:28 itchiness Sulfa (Sulfonamide Allergy Intermediate Hives Verified 06/18/23 15:28 Antibiotics) Consultations 06/18/23 15:55 ED Decision to Admit Stat 06/18/23 16:40 Consult Pain Management Routine Ordered Studies 06/18/23 11:36 CT cervical spine wo con Stat 06/19/23 10:[address] [CT head/brain wo con] Urgent 06/19/23 13:14 US venous doppler UE LT Routine Hospital Course (1) Degenerative disc disease, cervical: Cervical radiculopathy b/l UE w/ decreased ability to lift arms/pain from her neck w/ decreased ability/ROM w/ rotation of the neck on admission, IMPROVING Patient discharged on 05/19 on prednisone taper for cervical radiculopathy. Was seen by Dr Cheung during that time and did not feel surgery was indicated made improvements and went home on taper w/ HH services Reports but difficulty w/ ADLs/preparing food for herself and was attempting to get waiver care reported, notes had EMG testing and unclear cause. MRI from prior visit 05/14/23 with degenerative disc disease in cervical spine; defer further imaging for now as pain is consistent with prior and no acute neurologic changes. CT cervical spine without acute changes. Pain control: Tramadol, tylenol, lidocaine, heat Gabapentin increased to 200mg TID and reporting GOOD PAIN CONTROL, improvement in mobility parenteral steroids converted to prednisone 40mg PO for 06/22 and plan to decrease by 10mg daily to complete taper to see if any rebound issues off steroids as she's had previously Pain management consulted, can have f/u for possible injection. patient missed outpatient appointment will need to be rescheduled PT/OT consulted, pt wanting [facility] [place] CM to discuss and [facility] able to accommodate on ; Patient is agreeable with plan on 06/24/2023 (2) Uncontrolled type 2 diabetes mellitus with neurologic complication, with long-term current use of insulin: A1c 11.5 in April Home regimen Novolog 20u TID (although HPI states taking 8u TID) tresiba 20u HS, 1gm metformin BID at home (?compliance given A1c 11.5) persistent hyperglycemia seconday to steroids decreased on basal bolus insulin with expectation that needs will be reduced as her steroids go away Diabetic peripheral neuopathy Prior B12/folate deficiency and replacement Pharmacy consulted for glycemic -- appreciate assistance (3) S/P coronary artery stent placement: Hx CAD, HTN, HLD Hx CAD s/p PCI (LAD, Cx, RCA). Prior [place] in past described as sharp substernal CP w/ radiation to LEFT arm She DENIES sensation similar to her prior MIs as noting her BP was 226/165 on arrival with reported n/v/hyperglycemia (?DKA but no anion gap) CT head obtained given risk/headache, NEGATIVE Given her home meds STAT on admission BP stable and much improved w/ pain control and remains on home metoprolol, isosorbide mononitrate, lisinopril, ezetimibe, rosuvastatin, ASA No chest pain reported (baseline SOB controlled w/ inhalers and on room air 97%) (4) Anxiety: Anxiety & Depression -continue buspirone, duloxetine (5) GERD (gastroesophageal reflux disease): Continue PPI BID, H2 BID Hx barretts/erosive esophagitis as well No increased issues reported at present but does report some from time to time Should have GI f/u for EGD at d/c as doesn't appear done recently (6) Hypomagnesemia: replaced question if PPIs have influencing her hypomagnesemia (7) Vitamin D deficiency: Prior Vit D level 12.5 in Sep 2022 On ergocalciferol 50,000 weekly, had been taking Vit D low 12.8 on repeat PTH appropriately elevated (8) Edema of left upper arm: checked venous doppler -- NEGATIVE. weirdly improved since starting steroids? heat/pain control monitor Total Time Total Time Spent Total Time Spent (In Minutes): it required greater than 30 minutes to prepare this patient for discharge Discharge Plan Discharge Items Patient Disposition: Transfer Shelter Fac Reason For Visit: CERVICAL RADICULOPATHY Discharge Diagnosis: cervical radiculopathy secondary to ddd cervical spine uncontrolled diabetes worsened by steroids Activity: Per Instructions section Activity Comment: per PT/OT Non-emergency contact: Primary Care Provider Call non-emergency contact if: your symptoms worsen Follow-up/Referrals: Berkley Sen PA-C [Primary Care Provider] - Diet: Carb Consistent or DM2 Addtl Attending Provider Instructions: please rest and recover, consider outpt pain management referral taper steroids for diabetes this may change as steroids are tapered , with less insulin requirements, please follow and adjust continue diabetic teaching at Center care Pending Studies at Discharge: No Stand-Alone Forms: My [facility] Skilled Items Patient informed of condition?: Yes DNR: Yes Discharge Level of Care: Acute rehab Communicable Disease: No Discharge Prognosis: Improving Lines: None Urinary Catheter: No Medications and DC Order Prescriptions: New insulin glargine [Lantus U-100 Insulin] 100 unit/mL Solution 20 unit SC QAM Qty: 10 0RF tramadol 50 mg Tablet 100 mg PO Q8H PRN (Reason: pain) Qty: 30 0RF acetaminophen [Tylenol Extra Strength] 500 mg Tablet 1,000 mg PO Q8H Qty: 90 0RF gabapentin 100 mg Capsule 200 mg PO TID Qty: 90 0RF insulin aspart U-100 [Novolog U-100 Insulin aspart] 100 unit/mL Solution See Rx Instructions .ROUTE .COMPLEX Qty: 10 0RF Rx Instructions: sliding scale --Goal BSG Range: Low 110mg/dL, High 140mg/dL --Correction Factor: 20 mg/dL/unit --Carbohydrate ratio = 5 g/unit --BSGs ACHS if eating, q6h if npo prednisone 10 mg tablet 10 mg PO DIRECTED Qty: 3 0RF Rx Instructions: see taper instructions 20 mg on 06/25, 10 mg on 06/26 Continued diclofenac sodium [Arthritis Pain (diclofenac)] 1 % gel 2 g topical QID PRN (Reason: Pain) Qty: 100 2RF Trelegy Ellipta 100-62.5-25 mcg blister with device 1 inh inhalation DAILY Qty: 28 11RF Rx Instructions: She was instructed to rinse mouth thoroughly after each dose. gabapentin 100 mg capsule 100 mg PO HS Qty: 90 3RF duloxetine 30 mg capsule,delayed release(DR/EC) 30 mg PO QAM Qty: 90 3RF ezetimibe [Zetia] 10 mg tablet 10 mg PO QAM Qty: 90 3RF metoprolol succinate 100 mg tablet extended release 24 hr 100 mg PO QAM Qty: 90 3RF pantoprazole 40 mg tablet,delayed release (DR/EC) 40 mg PO BID Qty: 180 3RF Rx Instructions: TAKE 1 TABLET BY MOUTH TWICE A DAY rosuvastatin 40 mg tablet 40 mg PO QAM Qty: 90 3RF folic acid 1 mg tablet 1 mg PO QAM Rx Instructions: TAKE 1 TABLET BY MOUTH ONCE DAILY IN THE MORNING ergocalciferol (vitamin D2) 1,250 mcg (50,000 unit) capsule 50,000 unit PO WK Rx Instructions: SUNDAYS aspirin 81 mg Tablet,Delayed Release (Dr/Ec) 81 mg PO QAM Vitamin B 12 Cypo Value 200+20 1,000 mcg PO DAILY buspirone 10 mg tablet 10 mg PO TID Rx Instructions: TAKE ONE TABLET BY MOUTH THREE TIMES DAILY famotidine 20 mg tablet 20 mg PO BID Rx Instructions: PER isosorbide mononitrate 30 mg tablet extended release 24 hr 30 mg PO QAM lidocaine [Lidoderm] 5 % adhesive patch,medicated 1 patch TOP DAILY PRN (Reason: pain) Qty: 15 0RF Rx Instructions: leave on most painful area for up to 12 hrs lisinopril 10 mg tablet 10 mg PO QAM Discontinued meclizine 25 mg tablet 25 mg PO BID PRN (Reason: dizziness) Qty: 30 0RF nitroglycerin [Nitrostat] 0.4 mg tablet, sublingual 0.4 mg Sublingual UD PRN (Reason: Chest Pain) Qty: 1 3RF metaxalone 400 mg tablet 400 mg PO HS PRN (Reason: muscle pain) Qty: 10 0RF Praluent Pen 75 mg/mL pen injector 75 mg subcut Q14D Qty: 2 11RF Rx Instructions: PER PT "A COUPLE OF DAYS AGO". Linzess 145 mcg capsule 145 mcg PO QAM PRN (Reason: Constipation) Patient Comments: Take 30 minutes prior to first meal of the day. Do Not open or Crush capsule metformin 500 mg tablet 1,000 mg PO BID Qty: 360 3RF ondansetron HCl 4 mg tablet 4 mg PO Q8H PRN (Reason: nausea and vomiting) Qty: 30 0RF tramadol 50 mg tablet 50 mg PO HS PRN (Reason: pain) Qty: 20 0RF insulin aspart U-100 [Novolog FlexPen U-100 Insulin] 100 unit/mL (3 mL) insulin pen 20 unit subcut TID Rx Instructions: CHANGED LAST WEEK PER PT. with every meal. insulin degludec [Tresiba FlexTouch U-100] 100 unit/mL (3 mL) insulin pen 20 unit SQ QPM albuterol sulfate 90 mcg/actuation HFA aerosol inhaler 2 inha INH QID PRN (Reason: shortness of breath or wheezing) Qty: 1 0RF Discharge Orders: Discharge Order (Routine); Ordered 06/24/23 Ordered By: Philip Stinson/Other Patient Handouts: High Blood Sugar (Hyperglycemia), Managing Type 2 Diabetes Admission Data Admit Date/Time: 06/20/23 15:42 Attending Provider: Philip Esparza Admit Provider: Nancy Huitron Primary Care Provider: Berkley Sen Other Providers: Roger Archer; Alvarez Bhatti; Melinda Patel; Iam Cline; Flavia Beckett; Fadi Betts; [facility]; [facility] Other Interventions: Discharge Summary Assessment (RN) Last Done: 06/24/23 10:28 Coding Level of Care Code 28499 INP/OBS DISCH >30 MIN Diagnoses Degenerative disc disease, cervical M50.30 Uncontrolled type 2 diabetes mellitus with neurologic complication, with long- term current use of insulin E11.49; E11.65; Z79.4 S/P coronary artery stent placement Z95.5 Anxiety F41.9 Gastroesophageal reflux disease without esophagitis K21.9 Esophagitis presence: without esophagitis Hypomagnesemia E83.42 Vitamin D deficiency E55.9 Edema of left upper arm R60.0
--- OUTSIDE RECORDS SUMMARY | 2023-06-24 20:40 | External Medical Summary | Summary of Care ---
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 Feeder Name Role Phone Van Pimentel MD Primary Care Provider [phone] Reason for Visit * Reason Comments Pain Right arm Encounter Details Date Type Department Care Team Description 01/30/2023 Convenient Care Visit [facility] [address] [place] [address] [address] Melinda Maravilla PA-C [address] [place] [address] Neck pain*; Arm pain, right Allergies Active Allergy Reactions Severity Noted Date Comments Cephalexin Hives High 01/21/2017 documented as of this encounter (statuses as of 01/30/2023) Medications Medication Sig Dispensed Refills Start Date End Date Status Sacha Ellipadi 100-62.5-25 MCG/ACT Aerosol Powder Breath Activated (Fluticasone-Umeclidini um-Vilanterol) Inhale 1 Puff by mouth daily. 0 02/11/2022 Active NovoLOG FlexPen 100 UNIT/ML Subcutaneous Solution Pen-injector (insulin aspart) Inject 24 Units under the skin daily. 0 08/24/2022 Active busPIRone HCl 10 MG Oral Tablet (Buspar) Take 1 Tablet by mouth 3 times a day. 0 01/28/2023 Active Cyanocobalamin 500 MCG Oral Tablet Take 1 Tablet by mouth in the morning. 0 11/05/2022 Active DULoxetine HCl 30 MG Oral Capsule Delayed Release Particles (Cymbalta) Take 1 Capsule by mouth in the morning. 0 01/28/2023 Active Ergocalciferol 1.25 MG (47039 UT) Oral Capsule (Vitamin D2(Drisdol)) Take 1 Capsule by mouth once a week. 0 11/05/2022 Active Ezetimibe 10 MG Oral Tablet (Zetia) Take 1 Tablet by mouth daily. 0 01/28/2023 Active Famotidine 20 MG Oral Tablet (Pepcid) Take 1 Tablet by mouth daily. 0 01/28/2023 Active Folic Acid 1 MG Oral Tablet Take 1 Tablet by mouth daily. 0 12/30/2022 Active Gabapentin 100 MG Oral Capsule (Neurontin) Take 1 Capsule by mouth at bedtime. 0 09/17/2022 Active Insulin Degludec 100 UNIT/ML Subcutaneous Solution Pen-injector (Tresiba FlexTouch) Inject 48 Units under the skin every evening. 0 08/24/2022 Active Isosorbide Mononitrate ER 30 MG Oral Tablet Extended Release 24 Hour (Imdur) Take 1 Tablet by mouth daily. 0 01/28/2023 Active Lisinopril 10 MG Oral Tablet (Prinivil) Take 1 Tablet by mouth daily. 0 01/28/2023 Active Magnesium Oxide 400 (240 Mg) MG Oral Tablet (Mag-Ox) Take 1 Tablet by mouth daily. 0 12/30/2022 Active metFORMIN HCl 500 MG Oral Tablet (Glucophage) Take 1 Tablet by mouth daily. 0 01/28/2023 Active Metoprolol Succinate ER 100 MG Oral Tablet Extended Release 24 Hour (toPROL XL) Take 1 Tablet by mouth daily. 0 01/28/2023 Active Rosuvastatin Calcium 40 MG Oral Tablet (Crestor) Take 1 Tablet by mouth at bedtime. 0 01/28/2023 Active Aspirin 81 MG Oral Tablet Chewable Take 1 Tablet by mouth in the morning. 0 Active documented as of this encounter (statuses as of 01/30/2023) Social History Tobacco Use Types Packs/Day Years Used Date Smoking Tobacco: Never Smokeless Tobacco: Never Alcohol Use Standard Drinks/Week Comments No 0 (1 standard drink = 0.6 oz pur e alcohol) Sex Assigned at Date Recorded Not on file Job Start Date Occupation Industry Not on file Not on file Not on file documented as of this encounter Last Filed Vital Signs Vital Sign Reading Time Taken Comments Blood Pressure 124/84 01/30/2023 10:03 AM EDT Pulse 88 01/30/2023 10:03 AM EDT Temperature 37.3 C (99.2 F) 01/30/2023 10:03 AM E DT Respiratory Rate 20 01/30/2023 10:03 AM EDT Oxygen Saturation 98% 01/30/2023 10:03 AM EDT Inhaled Oxygen Concentration - - Weight - - Height - - Body Mass Index - - documented in this encounter Progress Notes * Melinda Maravilla PA-C - 01/30/2023 10:07 AM EDT Claire Rosas is a 77 year old year old female who presents for : Chief Complaint Patient presents with Pain Right arm Nursing Notes: Dyan Uriostegui LPN 01/30/23 1007 Signed Claire Rosas is a 77 year old female who presents to walk-in clinic today complaining of Chief Complaint Patient presents with Pain Right arm Main Symptoms: pain from her neck down her right arm. She has to support her right arm with her left arm, even wriggling her fingers makes the pain worse. Cause: unknown How long: few weeks ago. Pain became excruciating at 0400 this morning. Tried: aspirin, tylenol Pt accompanied by: HPI: Pt started with right neck pain that radiates into her arm a few weeks ago. Started mild. Slowly worse over the last few weeks. No fall or injury. Pain is stabbing some. denies burning pain. Pain worse with movement of neck or arm, or touching the arm. No redness. Unsure if feels swollen today. No fever, NVD. She is taking tylenol and aspirin with some limited help before. Nothing taken today. Pain is severe at times. Gets some relief with being propped. Worsened suddenly early this morning.denies CP, SOB, numbness, tingling or weakness specifically. REVIEW OF SYSTEMS: See HPI for pertinent positives and negatives. Patient denies addtional complaints. PAST MEDICAL HISTORY: No past medical history on file. No past surgical history on file. Social History Tobacco Use Smoking status: Never Smokeless tobacco: Never Substance Use Topics Alcohol use: No Vaping/E-Cigarette Use Vaping/E-Cigarette Use Never User Vaping/E-Cigarette Substances Vaping/E-Cigarette Devices There is no problem list on file for this patient. No family history on file. Review of patient's allergies indicates: Allergen Reactions Keflex [Cephalexin] Hives Current Outpatient Medications Medication Sig Dispense Refill Trelegy Ellipta 100-62.5-25 MCG/ACT Aerosol Powder Breath Activated (Xnspngydwoq-Cxnmlpaxmjuu-Iinuvmsbzg) Inhale 1 Puff by mouth daily. NovoLOG FlexPen 100 UNIT/ML Subcutaneous Solution Pen-injector (insulin aspart) Inject 24 Unitsunder the skin daily. Cyanocobalamin 500 MCG Oral Tablet Take 1 Tablet by mouth in the morning. Ergocalciferol 1.25 MG (91766 UT) Oral Capsule (Vitamin D2(Drisdol)) Take 1 Capsule by mouth once a week. Gabapentin 100 MG Oral Capsule (Neurontin) Take 1 Capsule by mouth at bedtime. Insulin Degludec 100 UNIT/ML Subcutaneous Solution Pen-injector (Tresiba FlexTouch) Inject 48 Units under the skin every evening. Aspirin 81 MG Oral Tablet Chewable Take 1 Tablet by mouth in the morning. busPIRone HCl 10 MG Oral Tablet (Buspar) Take 1 Tablet by mouth 3 times a day. DULoxetine HCl 30 MG Oral Capsule Delayed Release Particles (Cymbalta) Take 1 Capsule by mouth in the morning. Ezetimibe 10 MG Oral Tablet (Zetia) Take 1 Tablet by mouth daily. Famotidine 20 MG Oral Tablet (Pepcid) Take 1 Tablet by mouth daily. Folic Acid 1 MG Oral Tablet Take 1 Tablet by mouth daily. Isosorbide Mononitrate ER 30 MG Oral Tablet Extended Release 24 Hour (Imdur) Take 1 Tablet by mouth daily. Lisinopril 10 MG Oral Tablet (Prinivil) Take 1 Tablet by mouth daily. Magnesium Oxide 400 (240 Mg) MG Oral Tablet (Mag-Ox) Take 1 Tablet by mouth daily. metFORMIN HCl 500 MG Oral Tablet (Glucophage) Take 1 Tablet by mouth daily. Metoprolol Succinate ER 100 MG Oral Tablet Extended Release 24 Hour (toPROL XL) Take 1 Tablet by mouth daily. Rosuvastatin Calcium 40 MG Oral Tablet (Crestor) Take 1 Tablet by mouth at bedtime. No current facility-administered medications for this visit. Nursing Notes and Vital Signs reviewed. PHYSICAL EXAM: VITALS: BP 124/84 | Pulse 88 | Temp 37.3 C (99.2 F) (Tympanic) | Resp 20 | SpO2 98% GENERAL: Patient is alert, in visible discomfort with attempting to move arm or body. HEAD: Normocephalic, no masses, lesions, or other abnormalities noted. EYE EXAM: Normal conjunctiva, PERRL and EOM's intact. NECK: Some TTP along musculature of right lateral neck. No spinal tenderness. ROM limited due to pain per pt. Chest: normal chest symmetry and expansion, normal AP diameter. LUNGS: Normal respiratory rate and normal respiratory effort. No wheeze, rhonchi or rales HEART: RRR, no murmurs SKIN: Normal, no rashes. Ext: Right arm with limited evaluation due to pain. ROM limited due to pain with light palpation and any attempt to move arm. She does hold it more comfortably supported against her body while movingin clinic. Normal capillary refill noted. Hand is appropriately warm. No obvious trauma to arm visible. Assessment: Neck pain (Primary) - XR C SPINE 4-5 VIEWS Arm pain, right Given onset, possible radiculitis/pinched nerve stemming from neck. Discussed imaging. Xray as directed. Palpation along entire arm and musculature from arm to shoulder to neck recreates pain. Pt in too much pain currently get xray done. Pt agreeable to start anti-inflammatory at home, warm heat, try to relax arm as discussed. Given uncontrolled DM, would not give steroids at this time. Xray whenable unless goes to ER. Advised ER if progressive worsening or failure to find relief with treatment as above. Pt agreeableto plan. Call with results once finalized if she gets them done. I spent a total of 30-39 minutes (exact time 30 mins) on the date of service in preparation, delivery, and documentation of the care provided to Claire Rosas excluding any time spent in the performance of separately billed services. Melinda Maravilla PA-C [address] [place] [id number] documented in this encounter Nursing Notes * Dyan Uriostegui LPN - 01/30/2023 9:48 AM EDT Claire Rosas is a 77 year old female who presents to walk-in clinic today complaining of Chief Complaint Patient presents with Pain Right arm Main Symptoms: pain from her neck down her right arm. She has to support her right arm with her left arm, even wriggling her fingers makes the pain worse. Cause: unknown How long: few weeks ago. Pain became excruciating at 0400 this morning. Tried: aspirin, tylenol Pt accompanied by: documented in this encounter Plan of Treatment Scheduled Orders Name Type Priority Associated Diagnoses Orde r Schedule XR C SPINE 4-5 VIEWS Medical Imaging STAT Neck pain Ordered: 01/30/2023 Health Maintenance Due Date Last Done Comments COVID-19 Vaccine (#1) 1945 Depression Screening, Annual for Pts 12 and Over 1959 Hepatitis C Screening 1965 DTaP,Tdap,and Td Vaccines (1 - Tdap) 1966 Zoster Vaccines (1 of 2) 1997 DXA Scan 2012 Pneumococcal Vaccine: 65+ Years (1 - PCV) 2012 Influenza Vaccine (FLU shot) (Season Ended) 2023 06/30/2019, 07/06/2015 GARDASIL-HPV IMMUNIZATION SERIES Aged Out No longer eligible b ased on patient's age to complete this topic Hepatitis B Aged Out No longer eligi ble based on patient's age to complete this topic MENINGOCOCCAL (MENACTRA/MENVEO) Aged Out No longer eligible b ased on patient's age to complete this topic documented as of this encounter Medical Devices Not on filedocumented as of this encounter Visit Diagnoses Diagnosis Neck pain- Primary Cervicalgia Arm pain, right Pain in limb documented in this encounter Care Teams Automatic [employer] Threading Machine Feeder Relationship Specialty Start Date End Date Van Pimentel MD [address] [facility] [address] [place] [address] PCP - General Internal Medicine 01/21/17 documented as of this encounter"
== END 2023-06-24 11:10 | DRG 552 ==
LOC: 3N 10:13 → ED 10:13 → SUATTDRO 15:56 → 3N 18:10 → SUATTDRO 06-20 15:42

== ENCOUNTER 2023-06-26 09:47 | Inpatient (IN) ==
[2023-06-26] MEDS ORDERED: KETOROLAC TROMETHAMINE 15 MG/ML VIAL IV STA (09:58)
[2023-06-26] MEDS ORDERED: ONDANSETRON INJ 2 MG/ML 2 ML VIAL IV STA (09:58)
[2023-06-26] MEDS ORDERED: SODIUM CHLORIDE 0.9% 500 ML IV STA (09:58)
[2023-06-26] MEDS ORDERED: ACETAMINOPHEN 1,000 MG/100 ML VIAL IV STA (09:58)
--- NOTE | 2023-06-26 10:04 | Emergency Department Note ---
Impression & Plan SHERRIE (acute kidney injury), Constipation, Lower abdominal pain, Acute urinary retention, Vomiting ED Provider Note NAME: SHIRA CUNNINGHAM AGE: 78 SEX: F : 1945 ARRIVES VIA: Ambulance INFORMANT: [Patient][ems, nursing] ED PROVIDER(S): [Oliver Mccullough MD] CHIEF COMPLAINT: Abdominal pain HISTORY OF PRESENT ILLNESS: The patient is a 78-year-old female who is currently at [facility]. She was discharged from our facility 2 days ago and has been at [facility] since. She states that she has not had a bowel movement in around 5 days. She also has had some vomiting. She describes lower abdominal discomfort. The patient feels like she has to have a bowel movement but cannot. She feels bloated. There has been no cough or congestion. No shortness of breath. No fever. The patient was in this hospital for neck discomfort. She is on some medications to help control her pain. The patient was sent to this ED today with concerns for bowel obstruction. PMHx/PSHx/Social Hx: See Below PHYSICAL EXAM: GENERAL: Patient is in mild distress from pain. HEENT: No acute trauma, normocephalic atraumatic, mucous membranes moist, no nasal congestion. NECK: No stridor, no adenopathy, no meningismus, trachea is midline. LUNGS: Clear to auscultation bilaterally, no wheeze, no rhonchi, breath sounds equal. HEART: Without murmurs gallops or rubs, regular rate and rhythm. ABDOMEN: Soft, nontender, no peritonitis. EXTREMITIES: No cyanosis, full range of motion of all the joints without pain or difficulty. NEUROLOGIC: Oriented x 3, no acute motor or sensory deficits, no focal weakness. SKIN: No jaundice, no diaphoresis. DIFFERENTIAL DIAGNOSIS: Bowel obstruction, constipation, dehydration, electrolyte imbalance, diverticulitis or colitis, UTI, among others. EMERGENCY DEPARTMENT PROCEDURES: MEDICAL DECISION MAKING: There is a moderate leukocytosis, this could be consistent with infection or her recent steroid use. There is a normal hemoglobin and platelet count. There was evidence for acute kidney injury with an elevated creatinine. Potassium was somewhat high at 5.6. No concerning liver enzyme elevation. No evidence for pancreatitis. ECG showed a sinus bradycardia, no obvious ischemia. Cardiac enzyme testing x1 was not consistent with acute cardiac injury. Urinalysis did not show findings of infection. COVID test returned negative. Abdominal and pelvis CT did not show bowel obstruction but she was significantly constipated. Bladder distention was noted. The patient had a Bliss catheter placed to decompress the bladder and to help with her discomfort. She was given a 500 cc bolus x2 while here in the ED. She received IV Zofran for nausea, IV Toradol for pain, she received IV Tylenol. The patient does feel more comfortable since her treatment here in the ED. She is in no significant distress. Given the findings of bladder distention, given the acute kidney injury, given her vomiting and constipation, hospitalization is indicated. I did order for a milk and molasses enema while here in the ED, hopefully this will help with the constipation. I did speak with the patient and case management, the on-call hospitalist was consulted. Prior/Outside records/notes reviewed: EMS notes, recent discharge summary. ECG per my interpretation: Indication was abdominal pain. The ECG shows a sinus bradycardia with a rate of 59. There is no ST elevation, there is some poor R wave progression. No PVCs. The QTc is 423. Continuous Cardiac Monitoring per my interpretation: An order was placed for continuous cardiac monitoring. The monitor shows a rate of 60 with normal sinus rhythm. Imaging/x-ray results per my interpretation: Chronic Medical/Social conditions affecting care: Currently residing at a rehab center. Care/Management discussed with: Case management, the on-call hospitalistDr. Sommer. Level of care consideration(s): After review of the information above and other included data: --I believe the patient requires escalation of care to admission DISPOSITION: Admission Past Med/Surg History Medical History Acute kidney injury Cervical spinal stenosis Edema Acute neck pain Type 2 diabetes mellitus with chronic kidney disease Hyperosmolar hyperglycemic state (HHS) Hypotension Chest pain Acute hyperglycemia Vomiting Chest pain History of COVID-19 2020 - resolved COVID Hyperglycemia due to type 2 diabetes mellitus Acute non-ST elevation myocardial infarction (NSTEMI) 11/28/2021 had [place] medical management and follow with dr kaylen jeter 02/09/2022 Folic acid deficiency Vitamin B12 deficiency Asymptomatic bacteriuria Hypotension Back pain Abrasion Elevated troponin Fall Accelerated essential hypertension Elevated troponin Chest pain chronic chest pain and cardiac is negative Dyslipidemia Cervical pain (neck) Chronic pain syndrome Depression Diabetic gastroparesis Diabetic peripheral neuropathy GERD without esophagitis Lumbar spondylosis Mckeon esophagus CAD (coronary artery disease) s/p stents to RCA November 2005; s/p stents to LAD, LCx in January 2006; s/p stents to RCA in 08/2006 IBS (irritable bowel syndrome) Diabetes mellitus, type 2 IDDM Myocardial Infarction [place]- November 2005, January 2006, Aug 2006 3 total within an 8 month span--HX OF CATH 2012 [facility] [place], FOLLOWS WITH DR. JULES Surgical History Status post trigger finger release right thumb S/P coronary artery stent placement s/p stents to RCA November 2005; s/p stents to LAD, LCx in January 2006; s/p stents to RCA in 08/2006 History of total hysterectomy with bilateral salpingo-oophorectomy (BSO) History of lumbar spinal fusion History of total right knee replacement (TKR) History of esophageal dilatation History of colonoscopy with polypectomy History of esophagogastroduodenoscopy (EGD) History of tooth extraction all teeth History of cholecystectomy History of cataract surgery BL History of cardiac cath last 2012 @ [facility] [place], no stents--s/p stents to RCA November 2005; s/p stents to LAD, LCx in January 2006; s/p stents to RCA in 08/2006 Family History Brother Myocardial infarction Anxiety Heart disease Hypertension Cancer Sister Family history of reaction to anesthesia difficulty waking Hypertension Heart disease Myocardial infarction Anxiety Cancer Diabetes Father Anxiety Heart disease Hypertension Mother Anxiety Hypertension Heart disease Unknown Cancer skin, GI Denies family history of Ovarian cancer Prostate cancer Breast cancer Colorectal cancer Stroke Social History Smoking Status: Never smoker Tobacco Type: Cigarettes Age Started Using Tobacco: 18; Age Quit Using Tobacco: 57; Second Hand Exposure: No; Do You Dip or Chew Tobacco: No; Hx Alcohol Use: No Hx Substance Use: No Preferred Language: Gambian Communication Ability: Effective Visual Impairment: Limited Hearing Ability: Normal Contact Clerk Required: No Beliefs That Will Affect Care: None marital status: / Current Living Situation: Alone Current Living Situation Comment: apartment building current occupational status: retired and disabled How many Children do You have: 3 Feels Safe at Home: Yes Childhood Exposure to Second-Hand Smoke: No caffeine: Yes (drinks coffee, diet pepsi occasionally ) Dental Care, Regularly: No Physical Activity Frequency: Does not Exercise Seatbelt Use: always Sunscreen Use: No Assistive Devices: Cane and Walker Allergies Allergies Allergy/AdvReac Type Severity Reaction Status Date / Time cephalexin Allergy Intermediate Rash and Verified 06/18/23 15:28 itchiness Cephalosporins Allergy Intermediate Rash and Verified 06/18/23 15:28 itchiness Sulfa (Sulfonamide Allergy Intermediate Hives Verified 06/18/23 15:28 Antibiotics) Home Meds Home Medications Medication Instructions Recorded Confirmed aspirin 81 mg tablet,delayed 81 mg PO QAM 10/24/21 06/26/23 release Vitamin B 12 Cypo Value 200+20 1,000 mcg PO DAILY 03/25/23 06/26/23 buspirone 10 mg tablet 10 mg PO TID 03/25/23 06/26/23 famotidine 20 mg tablet 20 mg PO BID 03/25/23 06/26/23 isosorbide mononitrate 30 mg 30 mg PO QAM 03/25/23 06/26/23 tablet,extended release 24 hr lisinopril 10 mg tablet 10 mg PO QAM 05/14/23 06/26/23 ergocalciferol (vitamin D2) 1,250 50,000 unit PO WK 06/18/23 06/26/23 mcg (50,000 unit) capsule folic acid 1 mg tablet 1 mg PO QAM 06/18/23 06/26/23 lidocaine 5 % topical patch 0 patch topical DAILY PRN pain 06/26/23 (Lidoderm) metformin 500 mg tablet 1,000 mg PO BID 06/26/23 06/26/23 tramadol 50 mg tablet 0 mg PO Q8H PRN pain 06/26/23 Previous Rx's Medication Instructions Recorded fluticasone fur. 100 mcg-umeclid 1 inh inhalation DAILY #28 ea 02/11/22 62.5 mcg-vilant 25 mcg inhalat.powder (Trelegy Ellipta) gabapentin 100 mg capsule 100 mg PO HS #90 caps 09/17/22 duloxetine 30 mg capsule,delayed 30 mg PO QAM #90 caps 09/18/22 release ezetimibe 10 mg tablet (Zetia) 10 mg PO QAM #90 tabs 09/18/22 metoprolol succinate 100 mg 100 mg PO QAM #90 tabs 09/18/22 tablet,extended release 24 hr pantoprazole 40 mg tablet,delayed 40 mg PO BID #180 tabs 09/18/22 release rosuvastatin 40 mg tablet 40 mg PO QAM #90 tabs 09/18/22 diclofenac sodium 1 % topical gel 2 g topical QID PRN Pain #100 grams 02/04/23 (Arthritis Pain (diclofenac)) acetaminophen 500 mg tablet 1,000 mg (2 x 500 mg) PO Q8H #90 06/24/23 (Tylenol Extra Strength) tabs gabapentin 100 mg capsule 200 mg (2 x 100 mg) PO TID #90 caps 06/24/23 insulin aspart U-100 100 unit/mL See Rx Instructions .Route 06/24/23 subcutaneous solution (Novolog .COMPLEX #10 mL U-100 Insulin aspart) insulin glargine 100 unit/mL 20 unit (0.2 mL) SC QAM #10 mL 06/24/23 subcutaneous solution (Lantus U-100 Insulin) prednisone 10 mg tablet 10 mg PO DIRECTED #3 tabs 06/24/23 Results & Data (ED) Vital Signs Vital Signs - 24 hr 06/26/23 09:49 06/26/23 10:00 06/26/23 10:30 Temperature 36.7 C Temperature Source Oral Pulse Rate 59 L 60 Pulse Rate [Apical] 57 L Pulse Rhythm [Apical] Pulse Strength [Apical] Respiratory Rate 16 18 Respiratory Effort / Characteristics Non-Labored Spontaneous Non-Labored Spontaneous Respiratory Depth Normal Normal Respiratory Pattern Regular Blood Pressure 194/105 H Blood Pressure [Left Arm] 178/81 H Blood Pressure Mean 134 Blood Pressure Mean [Left Arm] 113 Blood Pressure Position [Left Arm] Semi-fowlers Pulse Oximetry 96 96 Oxygen Delivery Method Room Air Room Air Sepsis Recent Fever Within 48 Hours No Sepsis New/Unexplained Change in Mental Status No Sepsis Action Taken by Nursing No Action Required 06/26/23 12:26 06/26/23 14:07 Temperature Temperature Source Pulse Rate 57 L Pulse Rate [Apical] 64 Pulse Rhythm [Apical] Regular Pulse Strength [Apical] Normal Respiratory Rate 17 Respiratory Effort / Characteristics Non-Labored Respiratory Depth Normal Respiratory Pattern Regular Blood Pressure Blood Pressure [Left Arm] 143/75 H Blood Pressure Mean Blood Pressure Mean [Left Arm] 97 Blood Pressure Position [Left Arm] Semi-fowlers Pulse Oximetry 98 Oxygen Delivery Method Room Air Sepsis Recent Fever Within 48 Hours Sepsis New/Unexplained Change in Mental Status Sepsis Action Taken by Custodial Medications Current Medication List: was personally reviewed by me Laboratory Data Attestation: I reviewed the patient's lab results. 06/26/23 09:58 06/26/23 14:54 Lab Results 06/26/23 06/26/23 06/26/23 Range/Units 09:58 10:04 12:22 WBC 15.40 H (4.8-10.8) K/ul RBC 4.91 (4.20-5.40) M/uL Hgb 13.5 (12.0-16.0) g/dl Hct 39.9 (37.0-47.0) % MCV 81.3 (80.0-100.0) fL MCH 27.5 (25.0-34.0) pg MCHC 33.8 (32.0-36.0) g/dL RDW Std Deviation 44.9 (36.4-46.3) fL RDW Coeff of Tino 15.5 H (11.5-14.5) % Plt Count 313 (130-400) K/uL MPV 10.0 (9.4-12.4) fL Immature Gran % (Auto) 2.0 % Neut % (Auto) 77.9 % Lymph % (Auto) 13.6 % Pacific % (Auto) 6.0 % Eos % (Auto) 0.2 % Baso % (Auto) 0.3 % Neut # (Auto) 12.00 H (1.40-6.50) K/uL Lymph # (Auto) 2.09 (1.20-3.40) K/uL Pacific # (Auto) 0.93 H (0.11-0.59) K/uL Eos # (Auto) 0.03 (0.00-0.50) K/uL Baso # (Auto) 0.04 (0.00-0.20) K/uL Immature Gran # (Auto) 0.31 H (0.01-0.20) K/uL Sodium 134 L (136-145) mmol/L Potassium 5.6 H (3.5-5.1) mmol/L Chloride 101 (98-107) mmol/L Carbon Dioxide 26 (21-32) mmol/L Anion Gap 7 (3-11) BUN 50 H (6-23) mg/dl Creatinine 1.94 H (0.6-1.2) mg/dl Est Cr Clr Drug Dosing 24.7 ml/min Est GFR ( Amer) 28.4 ml/min Est GFR (Non-Af Amer) 24.5 ml/min BUN/Creatinine Ratio 25.8 H (10-20) Glucose 272 H (70-99(Fasting)) mg/dl Calcium 9.7 (8.6-10.3) mg/dl Total Bilirubin 0.4 (0.2-1.0) mg/dl AST 27 (13-39) U/L ALT 80 H (7-52) U/L Alkaline Phosphatase 74 (34-104) U/L Troponin I High Sens 7.9 (0-14) pg/ml Total Protein 6.8 (6.0-8.3) gm/dl Albumin 3.8 (3.4-5.0) gm/dl Globulin 3.0 (2.5-4.0) gm/dl Albumin/Globulin Ratio 1.3 (0.9-2) Lipase 17 (11-82) U/L Urine Color Yellow Urine Appearance Clear (Clear) Urine pH 5.5 (4.5-7.5) Ur Specific [place] 1.025 (1.000-1.030) Urine Protein Negative (Negative) Urine Glucose (UA) 3+ H (Negative) Urine Ketones Negative (Negative) Urine Blood Negative (Negative) Urine Nitrite Negative (Negative) Urine Bilirubin Negative (Negative) Urine Urobilinogen Negative (Negative) Ur Leukocyte Esterase Negative (Negative) SARS-CoV-2, RNA, NAAT NEGATIVE (NEGATIVE) 06/26/23 Range/Units 14:54 WBC (4.8-10.8) K/ul RBC (4.20-5.40) M/uL Hgb (12.0-16.0) g/dl Hct (37.0-47.0) % MCV (80.0-100.0) fL MCH (25.0-34.0) pg MCHC (32.0-36.0) g/dL RDW Std Deviation (36.4-46.3) fL RDW Coeff of Tino (11.5-14.5) % Plt Count (130-400) K/uL MPV (9.4-12.4) fL Immature Gran % (Auto) % Neut % (Auto) % Lymph % (Auto) % Pacific % (Auto) % Eos % (Auto) % Baso % (Auto) % Neut # (Auto) (1.40-6.50) K/uL Lymph # (Auto) (1.20-3.40) K/uL Pacific # (Auto) (0.11-0.59) K/uL Eos # (Auto) (0.00-0.50) K/uL Baso # (Auto) (0.00-0.20) K/uL Immature Gran # (Auto) (0.01-0.20) K/uL Sodium 134 L (136-145) mmol/L Potassium 6.2 H* (3.5-5.1) mmol/L Chloride 104 (98-107) mmol/L Carbon Dioxide 25 (21-32) mmol/L Anion Gap 5 (3-11) BUN 49 H (6-23) mg/dl Creatinine 1.70 H (0.6-1.2) mg/dl Est Cr Clr Drug Dosing 28.1 ml/min Est GFR ( Amer) 33.4 ml/min Est GFR (Non-Af Amer) 28.8 ml/min BUN/Creatinine Ratio 28.8 H (10-20) Glucose 239 H (70-99(Fasting)) mg/dl Calcium 8.8 (8.6-10.3) mg/dl Total Bilirubin (0.2-1.0) mg/dl AST (13-39) U/L ALT (7-52) U/L Alkaline Phosphatase (34-104) U/L Troponin I High Sens (0-14) pg/ml Total Protein (6.0-8.3) gm/dl Albumin (3.4-5.0) gm/dl Globulin (2.5-4.0) gm/dl Albumin/Globulin Ratio (0.9-2) Lipase (11-82) U/L Urine Color Urine Appearance (Clear) Urine pH (4.5-7.5) Ur Specific [place] (1.000-1.030) Urine Protein (Negative) Urine Glucose (UA) (Negative) Urine Ketones (Negative) Urine Blood (Negative) Urine Nitrite (Negative) Urine Bilirubin (Negative) Urine Urobilinogen (Negative) Ur Leukocyte Esterase (Negative) SARS-CoV-2, RNA, NAAT (NEGATIVE) Administered Medications Discontinued Medications Sodium Chloride (Nss) 500 mls @ 999 mls/hr IV .Q31M STA Stop: 06/26/23 10:28 Last Infusion: 06/26/23 10:54 Dose: Infused Documented By: Admin: 06/26/23 10:21 Dose: 999 mls/hr Documented By: DANIEL [facility] 1,000 mg in 100 mls @ 400 mls/hr IV NOW STA Stop: 06/26/23 10:12 Last Infusion: 06/26/23 10:30 Dose: Infused Documented By: Admin: 06/26/23 10:15 Dose: 400 mls/hr Documented By: DARIEL Sodium Chloride (Nss) 500 mls @ 999 mls/hr IV .Q31M ONE Stop: 06/26/23 12:59 Last Infusion: 06/26/23 13:43 Dose: Infused Documented By: Admin: 06/26/23 13:04 Dose: 999 mls/hr Documented By: DARIN Ketorolac Tromethamine (Ketorolac Tromethamine 15 Mg/Ml Vial) 15 mg IV NOW STA Stop: 06/26/23 09:59 Last Admin: 06/26/23 10:15 Dose: 15 mg Documented By: DARIEL Ondansetron HCl (Ondansetron Inj 2 Mg/Ml 2 Ml Vial) 4 mg IV NOW STA Stop: 06/26/23 09:59 Last Admin: 06/26/23 10:15 Dose: 4 mg Documented By: DARIEL Imaging Data Radiologist's Impression: Abdomen/Pelvis CT 06/26/23 09:59 CT OF THE ABDOMEN AND PELVIS WITHOUT CONTRAST CLINICAL HISTORY: Abdominal pain, nausea and vomiting. Possible obstruction. COMPARISON STUDY: CT of the abdomen and pelvis August 21, 2022. KUB August 24, 2022. TECHNIQUE: Axial images of the abdomen and pelvis were obtained without IV contrast. Images were reviewed in the axial, sagittal, and coronal planes. Automated exposure control was utilized for the study. A dose lowering technique was utilized adhering to the principles of ALARA. FINDINGS: No pneumatosis, free air or portal venous gas is present. No renal, ureteral or bladder calculi are present. The bladder is distended. This likely accounts for mild bilateral hydroureteronephrosis. Unenhanced images of the liver, spleen, adrenal glands and pancreas are unremarkable. There is a large amount of stool within the rectum. There is minimal presacral stranding. A moderate amount of stool within the colon is present. No fluid collections are present. There is anasarca. No lymphadenopathy is noted. No acute fractures within the visualized skeletal structures are identified. IMPRESSION: 1. Large amount of stool within the rectum and moderate amount of stool within the colon. Minimal presacral stranding may be due to volume overload. Although less likely, developing stercoral colitis could appear similar. No pneumoperitoneum. 2. Mild bilateral hydronephrosis, likely related to bladder distention. 3. Anasarca. ACT 112: Negative or not required by law. Electronically signed by: Jimmy Chavarria M.D. 06/26/2023 12:24 PM Discharge Plan Visit Data Chief Complaint: Abdominal Pain Stated Complaint: CONSTIPATION ED Provider: Oliver Mccullough Discharge Problem: SHERRIE (acute kidney injury), Constipation, Lower abdominal pain, Acute urinary retention, Vomiting Patient Disposition: Admitted As Inpatient Condition: Fair Forms Stand Alone Forms: My [facility] [employer] Prescriptions Prescriptions: No Action diclofenac sodium [Arthritis Pain (diclofenac)] 1 % gel 2 g topical QID PRN (Reason: Pain) Qty: 100 2RF Trelegy Ellipta 100-62.5-25 mcg blister with device 1 inh inhalation DAILY Qty: 28 11RF Rx Instructions: She was instructed to rinse mouth thoroughly after each dose. gabapentin 100 mg capsule 100 mg PO HS Qty: 90 3RF duloxetine 30 mg capsule,delayed release(DR/EC) 30 mg PO QAM Qty: 90 3RF ezetimibe [Zetia] 10 mg tablet 10 mg PO QAM Qty: 90 3RF metoprolol succinate 100 mg tablet extended release 24 hr 100 mg PO QAM Qty: 90 3RF pantoprazole 40 mg tablet,delayed release (DR/EC) 40 mg PO BID Qty: 180 3RF Rx Instructions: TAKE 1 TABLET BY MOUTH TWICE A DAY rosuvastatin 40 mg tablet 40 mg PO QAM Qty: 90 3RF folic acid 1 mg tablet 1 mg PO QAM Rx Instructions: TAKE 1 TABLET BY MOUTH ONCE DAILY IN THE MORNING ergocalciferol (vitamin D2) 1,250 mcg (50,000 unit) capsule 50,000 unit PO WK Rx Instructions: SUNDAYS insulin glargine [Lantus U-100 Insulin] 100 unit/mL Solution 20 unit SC QAM Qty: 10 0RF acetaminophen [Tylenol Extra Strength] 500 mg Tablet 1,000 mg PO Q8H Qty: 90 0RF gabapentin 100 mg Capsule 200 mg PO TID Qty: 90 0RF insulin aspart U-100 [Novolog U-100 Insulin aspart] 100 unit/mL Solution See Rx Instructions .ROUTE .COMPLEX Qty: 10 0RF Rx Instructions: sliding scale --Goal BSG Range: Low 110mg/dL, High 140mg/dL --Correction Factor: 20 mg/dL/unit --Carbohydrate ratio = 5 g/unit --BSGs ACHS if eating, q6h if npo prednisone 10 mg tablet 10 mg PO DIRECTED Qty: 3 0RF Rx Instructions: not on list from pharmacy see taper instructions 20 mg on 06/25, 10 mg on 06/26 aspirin 81 mg Tablet,Delayed Release (Dr/Ec) 81 mg PO QAM Vitamin B 12 Cypo Value 200+20 1,000 mcg PO DAILY buspirone 10 mg tablet 10 mg PO TID Rx Instructions: TAKE ONE TABLET BY MOUTH THREE TIMES DAILY famotidine 20 mg tablet 20 mg PO BID Rx Instructions: PER DR 1ST isosorbide mononitrate 30 mg tablet extended release 24 hr 30 mg PO QAM lisinopril 10 mg tablet 10 mg PO QAM metformin 500 mg tablet 1,000 mg PO BID tramadol 50 mg tablet 0 mg PO Q8H PRN (Reason: pain) Rx Instructions: not on list from pharmacy lidocaine [Lidoderm] 5 % adhesive patch,medicated 0 patch TOP DAILY PRN (Reason: pain) Rx Instructions: not on list from pharmacy leave on most painful area for up to 12 hrs Referrals Referrals: Berkley Sen PA-C [Primary Care Provider] - Discharge Problem: Constipation Qualifiers: Constipation type: unspecified constipation type Qualified Code(s): K59.00 - Constipation, unspecified Vomiting Qualifiers: Vomiting type: unspecified Nausea presence: with nausea Qualified Code(s): R 11.2 - Nausea with vomiting, unspecified
[2023-06-26 10:28] LABS: Basophils # (auto) 0.04 K/uL (0.00-0.20); Basophils % (auto) 0.3 %; Eosinophils # (auto) 0.03 K/uL (0.00-0.50); Eosinophils % (auto) 0.2 %; Hematocrit (blood only) 39.9 % (37.0-47.0); Hemoglobin 13.5 g/dl (12.0-16.0); Immature Granulocytes # (auto) 0.31 K/uL (0.01-0.20); Lymphocytes # (auto) 2.09 K/uL (1.20-3.40); Lymphocytes % (auto) 13.6 %; Mean Corpuscular Hemoglobin 27.5 pg (25.0-34.0); Mean Corpuscular Hgb Conc 33.8 g/dL (32.0-36.0); Mean Corpuscular Volume 81.3 fL (80.0-100.0); Monocytes # (auto) 0.93 K/uL (0.11-0.59); Neutrophils % (auto) 77.9 %; Platelet Count 313 K/uL (130-400); RDW Coefficient of Variation 15.5 % (11.5-14.5); RDW Standard Deviation 44.9 fL (36.4-46.3); Red Blood Count 4.91 M/uL (4.20-5.40)
[2023-06-26 10:45] LABS: Albumin Globulin Ratio 1.3 (0.9-2); Albumin Level 3.8 gm/dl (3.4-5.0); BUN Creatinine Ratio 25.8 (10-20); Bilirubin,Total 0.4 mg/dl (0.2-1.0); Calcium 9.7 mg/dl (8.6-10.3); Creatinine Clr Calc Pharmacy 24.7 ml/min; Est GFR (African American) 28.4 ml/min; Est GFR (Non-African American) 24.5 ml/min; Potassium 5.6 mmol/L (3.5-5.1); Total Protein 6.8 gm/dl (6.0-8.3)
[2023-06-26 10:51] LABS: Troponin I High Sensitivity 7.9 pg/ml (0-14)
--- NOTE | 2023-06-26 12:26 | CT Scan Report ---
CT OF THE ABDOMEN AND PELVIS WITHOUT CONTRAST CLINICAL HISTORY: Abdominal pain, nausea and vomiting. Possible obstruction. COMPARISON STUDY: CT of the abdomen and pelvis August 21, 2022. KUB August 24, 2022. TECHNIQUE: Axial images of the abdomen and pelvis were obtained without IV contrast. Images were revi ewed in the axial, sagittal, and coronal planes. Automated exposure control was utilized for the matilde dy. A dose lowering technique was utilized adhering to the principles of ALARA. FINDINGS: No pneumatosis, free air or portal venous gas is present. No renal, ureteral or bladder segun culi are present. The bladder is distended. This likely accounts for mild bilateral hydroureteronephr osis. Unenhanced images of the liver, spleen, adrenal glands and pancreas are unremarkable. There is a large amount of stool within the rectum. There is minimal presacral stranding. A moderate amount of stool within the colon is present. No fluid collections are present. There is anasarca. No lymphaden opathy is noted. No acute fractures within the visualized skeletal structures are identified. IMPRESSION: 1. Large amount of stool within the rectum and moderate amount of stool within the colon. Minimal pre sacral stranding may be due to volume overload. Although less likely, developing stercoral colitis co uld appear similar. No pneumoperitoneum. 2. Mild bilateral hydronephrosis, likely related to bladder distention. 3. Anasarca. ACT 112: Negative or not required by law. Electronically signed by: Jimmy Chavarria M.D. 06/26/2023 12:24 PM
[2023-06-26] MEDS ORDERED: SODIUM CHLORIDE 0.9% 500 ML IV ONE (12:29)
[2023-06-26 12:39] LABS: Appearance Urine Clear (Clear); Bilirubin Urine Negative (Negative); Blood Urine Negative (Negative); Color Urine Yellow; Glucose Urine UA 3+ (Negative); Ketones Urine Negative (Negative); Leukocyte Esterase Urine Negative (Negative); Nitrite Urine Negative (Negative); Protein Urine Negative (Negative); Specific Gravity Urine 1.025 (1.000-1.030); Urobilinogen Urine Negative (Negative); pH Urine 5.5 (4.5-7.5)
--- NOTE | 2023-06-26 13:15 | History & Physical Report ---
Date of Service June 26, 2023 Assessment & Plan (1) Constipation: Plan: Lower transverse abdominal pain starting 06/24 Last BM was 5 days ago (on 06/22) Vomiting the morning of 06/26 Brought in from [facility] via EMS Hx of bowel obstruction Leukocytosis at 15.40 CT ab/pelvis revealed large amount of stool, mild b/l hydronephrosis, bladder distention, but no pneumoperitoneum Bliss was placed in the ED, and patient reported moderate abdominal relief Will initiate bowel regimen: MiraLAX 17qm p.o. daily Dulcolax 10 mg NV as needed Milk of magnesia 30 mL p.o. q6h as needed for constipation Acetaminophen 1000 mg every 8 hours for pain (max 3000 mg daily) Avoid opioids in the setting of constipation Avoid NSAIDs in the setting of SHERRIE Keep n.p.o. for now then advance to T2DM diet as tolerated AM CBC, BMP, mag (2) Hyperkalemia: Plan: K 5.6 --> 6.2 on arrival In the setting of SHERRIE / kidney impairment 1 ampule calcium gluconate 10 units insulin IV, with 1 amp D50 1 dose of Lokelma 10gm p.o. given Trend BMP q4h x 3 (3) Nausea & vomiting: Plan: Vomiting on the morning of 06/26 EKG sinus bradycardia; QTc 423 Zofran 4 mg IV q6h as needed for nausea (4) Acute kidney injury: Plan: BUN 50 Creatinine 1.94 (baseline 0.93) eGFR 24.5 Avoid nephrotoxic agents Hold tramadol Hold lisinopril (5) DM2 (diabetes mellitus, type 2): Plan: Last A1c 11.5% on 05/15/2023 Hold metformin Patient normally takes Lantus 20u QAM SSI Lantus 10u BID while inpatient; target goal BSG 110-160mg/dL, CF 55, carb ratio 20 BSG q6h while NPO, then ACHS Keep n.p.o. 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 for now then advance to T2DM diet as tolerated VTE PPx: SCDs, heparin 5000u SQ q12h History of Present Illness Chief Complaint: Abdominal pain Primary Care Provider: MARA Woodallie is a 78-year-old female with PMH of bowel obstruction, HTN, cervical radiculopathy, IBS, CAD, anxiety, depression, Mckeon's esophagus, GERD, T2DM, lumbar spondylosis, diabetic gastroparesis, dyslipidemia, hemorrhoids, CKD stage III, and constipation. She presented from [facility] for abdominal pain x3 days, constipation x5 days, and 1 episode of vomiting the morning of 06/26. She was recently hospitalized at [facility] from 06/18 - 06/24 for cervical radiculopathy. She reports that her neck pain is not present on arrival. She exhibits questionable capacity during examination; A&O x1 to name and birthday, but not oriented to time, location. She endorses lower abdominal pain around the groin. Pain does not radiate. 1 episode of vomiting earlier today. No abdominal pain at present. No recent changes in diet. No sick contacts. Patient's vitals are stable at time of admission. ED course: Toradol 15 mg IV Zofran 4 mg IV Acetaminophen 1000 mg IV NSS 1000 mL ROS: Patient endorses constipation, lower abdominal pain, and one episode of vomiting. Patient denies fever, sweating, ALLRED, confusion, CP, SOB, cough, hematemesis, burning with urination, blood in the stool/urine, saddle anesthesia, or numbness/tingling/pain in legs. Allergies Allergy/AdvReac Type Severity Reaction Status Date / Time cephalexin Allergy Intermediate Rash and Verified 06/18/23 15:28 itchiness Cephalosporins Allergy Intermediate Rash and Verified 06/18/23 15:28 itchiness Sulfa (Sulfonamide Allergy Intermediate Hives Verified 06/18/23 15:28 Antibiotics) Home Medications Medication Instructions Recorded Confirmed Type aspirin 81 mg tablet,delayed 81 mg PO QAM 10/24/21 06/26/23 History release fluticasone fur. 100 mcg-umeclid 1 inh inhalation DAILY #28 ea 02/11/22 06/26/23 Rx 62.5 mcg-vilant 25 mcg inhalat.powder (Trelegy Ellipta) gabapentin 100 mg capsule 100 mg PO HS #90 caps 09/17/22 06/26/23 Rx duloxetine 30 mg capsule,delayed 30 mg PO QAM #90 caps 09/18/22 06/26/23 Rx release ezetimibe 10 mg tablet (Zetia) 10 mg PO QAM #90 tabs 09/18/22 06/26/23 Rx metoprolol succinate 100 mg 100 mg PO QAM #90 tabs 09/18/22 06/26/23 Rx tablet,extended release 24 hr pantoprazole 40 mg tablet,delayed 40 mg PO BID #180 tabs 09/18/22 06/26/23 Rx release rosuvastatin 40 mg tablet 40 mg PO QAM #90 tabs 09/18/22 06/26/23 Rx diclofenac sodium 1 % topical gel 2 g topical QID PRN Pain #100 grams 02/04/23 06/26/23 Rx (Arthritis Pain (diclofenac)) Vitamin B 12 Cypo Value 200+20 1,000 mcg PO DAILY 03/25/23 06/26/23 History buspirone 10 mg tablet 10 mg PO TID 03/25/23 06/26/23 History famotidine 20 mg tablet 20 mg PO BID 03/25/23 06/26/23 History isosorbide mononitrate 30 mg 30 mg PO QAM 03/25/23 06/26/23 History tablet,extended release 24 hr lisinopril 10 mg tablet 10 mg PO QAM 05/14/23 06/26/23 History ergocalciferol (vitamin D2) 1,250 50,000 unit PO WK 06/18/23 06/26/23 History mcg (50,000 unit) capsule folic acid 1 mg tablet 1 mg PO QAM 06/18/23 06/26/23 History acetaminophen 500 mg tablet 1,000 mg (2 x 500 mg) PO Q8H #90 06/24/23 06/26/23 Rx (Tylenol Extra Strength) tabs gabapentin 100 mg capsule 200 mg (2 x 100 mg) PO TID #90 caps 06/24/23 06/26/23 Rx insulin aspart U-100 100 unit/mL See Rx Instructions .Route 06/24/23 06/26/23 Rx subcutaneous solution (Novolog .COMPLEX #10 mL U-100 Insulin aspart) insulin glargine 100 unit/mL 20 unit (0.2 mL) SC QAM #10 mL 06/24/23 06/26/23 Rx subcutaneous solution (Lantus U-100 Insulin) prednisone 10 mg tablet 10 mg PO DIRECTED #3 tabs 06/24/23 Rx lidocaine 5 % topical patch 0 patch topical DAILY PRN pain 06/26/23 History (Lidoderm) metformin 500 mg tablet 1,000 mg PO BID 06/26/23 06/26/23 History tramadol 50 mg tablet 0 mg PO Q8H PRN pain 06/26/23 History Past Med/Surg History Medical History Acute kidney injury Cervical spinal stenosis Edema Acute neck pain Type 2 diabetes mellitus with chronic kidney disease Hyperosmolar hyperglycemic state (HHS) Hypotension Chest pain Acute hyperglycemia Vomiting Chest pain History of COVID-2020 - resolved COVID Hyperglycemia due to type 2 diabetes mellitus Acute non-ST elevation myocardial infarction (NSTEMI) 11/28/2021 had [place] [facility] and follow with dr abdullahi apt 02/09/2022 Folic acid deficiency Vitamin B12 deficiency Asymptomatic bacteriuria Hypotension Back pain Abrasion Elevated troponin Fall Accelerated essential hypertension Elevated troponin Chest pain chronic chest pain and cardiac is negative Dyslipidemia Cervical pain (neck) Chronic pain syndrome Depression Diabetic gastroparesis Diabetic peripheral neuropathy GERD without esophagitis Lumbar spondylosis Mckeon esophagus CAD (coronary artery disease) s/p stents to RCA November 2005; s/p stents to LAD, LCx in January 2006; s/p stents to RCA in 08/2006 IBS (irritable bowel syndrome) Diabetes mellitus, type 2 IDDM Myocardial Infarction [place]- November 2005, January 2006, Aug 2006 3 total within an 8 month span--HX OF CATH [address] [place] [id number], FOLLOWS WITH DR. ABDULLAHI Surgical History Status post trigger finger release right thumb S/P coronary artery stent placement s/p stents to RCA November 2005; s/p stents to LAD, LCx in January 2006; s/p stents to RCA in 08/2006 History of total hysterectomy with bilateral salpingo-oophorectomy (BSO) History of lumbar spinal fusion History of total right knee replacement (TKR) History of esophageal dilatation History of colonoscopy with polypectomy History of esophagogastroduodenoscopy (EGD) History of tooth extraction all teeth History of cholecystectomy History of cataract surgery BL History of cardiac cath last 2012 [place] [facility] [place]--s/p stents to RCA November 2005; s/p stents to LAD, LCx in January 2006; s/p stents to RCA in 08/2006 Family History Brother Myocardial infarction Anxiety Heart disease Hypertension Cancer Sister Family history of reaction to anesthesia difficulty waking Hypertension Heart disease Myocardial infarction Anxiety Cancer Diabetes Father Anxiety Heart disease Hypertension Mother Anxiety Hypertension Heart disease Unknown Cancer skin, GI Denies family history of Ovarian cancer Prostate cancer Breast cancer Colorectal cancer Stroke Social History Smoking Status: Never smoker Tobacco Type: Cigarettes Age Started Using Tobacco: 18; Age Quit Using Tobacco: 57; Second Hand Exposure: No; Do You Dip or Chew Tobacco: No; Hx Alcohol Use: No Hx Substance Use: No Preferred Language: Danish Communication Ability: Effective Visual Impairment: Limited Hearing Ability: Normal 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 Beliefs That Will Affect Care: None marital status: / Current Living Situation: Alone Current Living Situation Comment: Lives home alone, home care aids for 2 hrs/day current occupational status: retired and disabled How many Children do You have: 3 Other Information That Helps Us Care for You: No Feels Safe at Home: Yes Safety Concerns: Feels Safe At This Time Childhood Exposure to Second-Hand Smoke: No caffeine: Yes (drinks coffee, diet pepsi occasionally ) Dental Care, Regularly: No Physical Activity Frequency: Does not Exercise Seatbelt Use: always Sunscreen Use: No Assistive Devices: Cane and Walker Review of Systems Review of Systems: See HPI above Physical Exam Physical Exam: General: no acute distress; non-toxic appearing; cooperative; lethargic; fatigued; 99% SPO2 on RA; 61 bpm HEENT: normocephalic, atraumatic; no scleral icterus; PERRLA w/ EOMs intact; dry mucus membrane; vision and hearing intact Neck: supple; no lymphadenopathy; trachea midline Skin: warm, dry without signs of tenting; no cyanosis; no rashes, bruising, lesions, or erythema noted CV: chest wall NTP; RRR; S1/S2 normal; no murmurs/rubs/gallops; pulses intact and symmetric at radial, DP, and PT Lungs: no acute respiratory distress; symmetrical chest wall expansion; clear breath sounds across all lung peraza w/o adventitious sounds; no wheezing ABD: Soft, NTP; BS present; no rebound/guarding; no ascites; no distention; no signs of bruising, or rashes on the abdomen; lower abdomen and is nontender to palpate MSK: no tics or fasciculations; no edema noted in the LEs b/l Neuro: Oriented to name, birthday, and purpose in hospital; not oriented to time or location; flat mood and affect; sensation intact in the LEs B/L Results & Data Results & Data Vital Signs (Past 12 Hours) Vital Signs Temp Pulse Pulse Resp BP BP Pulse Ox 06/26/23 12:26 64 17 143/75 H 98 06/26/23 10:30 57 L 18 178/81 H 96 06/26/23 10:00 60 06/26/23 09:49 36.7 C 59 L 16 194/105 H 96 O2 Del Method 06/26/23 12:26 Room Air 06/26/23 10:30 Room Air 06/26/23 10:00 06/26/23 09:49 Room Air Laboratory Results Abnormal lab results 06/26/23 06/26/23 Range/Units 09:58 12:22 WBC 15.40 H (4.8-10.8) K/ul RDW Coeff of Tino 15.5 H (11.5-14.5) % Neut # (Auto) 12.00 H (1.40-6.50) K/uL [place] # (Auto) 0.93 H (0.11-0.59) K/uL Immature Gran # (Auto) 0.31 H (0.01-0.20) K/uL Sodium 134 L (136-145) mmol/L Potassium 5.6 H (3.5-5.1) mmol/L BUN 50 H (6-23) mg/dl Creatinine 1.94 H (0.6-1.2) mg/dl BUN/Creatinine Ratio 25.8 H (10-20) Glucose 272 H (70-99(Fasting)) mg/dl ALT 80 H (7-52) U/L Urine Glucose (UA) 3+ H (Negative) Diagnostic Findings Abdomen/Pelvis CT 06/26/23 09:59 CT OF THE ABDOMEN AND PELVIS WITHOUT CONTRAST CLINICAL HISTORY: Abdominal pain, nausea and vomiting. Possible obstruction. COMPARISON STUDY: CT of the abdomen and pelvis August 21, 2022. KUB August 24, 2022. TECHNIQUE: Axial images of the abdomen and pelvis were obtained without IV contrast. Images were reviewed in the axial, sagittal, and coronal planes. Automated exposure control was utilized for the study. A dose lowering techni que was utilized adhering to the principles of ALARA. FINDINGS: No pneumatosis, free air or portal venous gas is present. No renal, ureteral or bladder calculi are present. The bladder is distended. This likely accounts for mild bilateral hydroureteronephrosis. Unenhanced images of the liver, spleen, adrenal glands and pancreas are unremarkable. There is a large amount of stool within the rectum. There is minimal presacral stranding. A moderate amount of stool within the colon is present. No fluid collections are present. There is anasarca. No lymphadenopathy is noted. No acute fractures within the visualized skeletal structures are identified. IMPRESSION: 1. Large amount of stool within the rectum and moderate amount of stool within the colon. Minimal presacral stranding may be due to volume overload. Although less likely, developing stercoral colitis could appear similar. No pneumoperitoneum. 2. Mild bilateral hydronephrosis, likely related to bladder distention. 3. Anasarca. ACT 112: Negative or not required by law. Electronically signed by: Jimmy Chavarria M.D. 06/26/2023 12:24 PM Labs and images reviewed. Code Status & VTE Plan Code Status DNR/DNI VTE Prophylaxis Plan VTE Prophylaxis will be ordered: Yes Supervising Physician Co-Signing Physician Notes Patient seen and examined, chart reviewed, case discussed with JAVI Lopez and I agree with the assessment and plan as above except as otherwise noted Labs and images reviewed Claire is a 78-year-old female with past medical history of radiculopathy, IBS, CAD, anxiety/depression, GERD type 2 diabetes mellitus, gastroparesis, CKD, constipation who presents with abdominal pain, constipation, nausea/vomiting concerning for SBO. On ER evaluation patient does not have evidence of SBO on imaging but has a high stool burden with developing stercoral colitis. No free air, no pneumoperitoneum is noted and evidence of urinary retention. Brisk urinary output following Bliss placement. She was recently started on tramadol.Urinary retention with obstructive SHERRIE 2/2 either recent narcotic initiation versus with severe constipation. Recommend continuing mineral oil versus warm water enemas, and upper bowel regimen with daily MiraLAX and breakthrough magnesium citrate as needed PG Care Time/CCT Total # of Minutes Spent Total Time Spent with Patient: Total time spent is greater than 50% in coordination of care (as documented) at patient's floor/unit and/or counseling patient: C[place] [id number] INT INP/OBS CARE 3/75MIN Patient Type Established Medical Decision Making High Complexity Diagnoses Constipation K59.00 Hyperkalemia E87.5 Nausea & vomiting R11.2 Acute kidney injury N17.9 DM2 (diabetes mellitus, type 2) E11.9 Cervicalgia M54.2 Primary hypertension I10 Hypertension type: primary hypertension Dyslipidemia E78.5 Gastroesophageal reflux disease without esophagitis K21.9 Esophagitis presence: without esophagitis Coronary artery disease involving kake coronary artery of kake heart, angina presence unspecified I25.10 Associated angina: angina presence unspecified Coronary Disease-Associated Artery/Lesion type: [place]ake artery [place] vs. transplanted heart: kake heart Mckeon's esophagus without dysplasia K22.70 Mckeon's esophagus type: without dysplasia Diabetic gastroparesis E11.43; K31.84 IBS (irritable bowel syndrome) K58.9 Obesity (BMI 30.0-34.9) E66.9 Mild episode of recurrent major depressive disorder F33.0 Active/Remission status: currently active Depression Type: major depressive disorder Major depression episode severity: mild Major depression recurrence: recurrent Anxiety F41.9 (7) Hypertension Hypertension type: primary hypertension Qualified Code(s): I10 - Essential (primary) hypertension (9) GERD (gastroesophageal reflux disease) Esophagitis presence: without esophagitis Qualified Code(s): K21.9 - Gastro- esophageal reflux disease without esophagitis (10) CAD (coronary artery disease) Associated angina: angina presence unspecified Coronary Disease-Associated Artery/Lesion type: [place]ake artery [place] vs. transplanted heart: kake heart Qualified Code(s): I25.10 - Atherosclerotic heart disease of kake coronary artery without angina pectoris (11) Mckeon esophagus Mckeon's esophagus type: without dysplasia Qualified Code(s): K22.70 - Mckeon's esophagus without dysplasia (15) Depression Active/Remission status: currently active Depression Type: major depressive disorder Major depression episode severity: mild Major depression recurrence: recurrent Qualified Code(s): F33.0 - Major depressive disorder, recurrent, mild
--- NOTE | 2023-06-26 13:59 | History & Physical Report ---
Date of Service June 26, 2023 History of Present Illness Primary Care Provider: Berkley Sen PA-C Allergies Allergy/AdvReac Type Severity Reaction Status Date / Time cephalexin Allergy Intermediate Rash and Verified 06/18/23 15:28 itchiness Cephalosporins Allergy Intermediate Rash and Verified 06/18/23 15:28 itchiness Sulfa (Sulfonamide Allergy Intermediate Hives Verified 06/18/23 15:28 Antibiotics) Home Medications Medication Instructions Recorded Confirmed Type aspirin 81 mg tablet,delayed 81 mg PO QAM 10/24/21 06/26/23 History release fluticasone fur. 100 mcg-umeclid 1 inh inhalation DAILY #28 ea 02/11/22 06/26/23 Rx 62.5 mcg-vilant 25 mcg inhalat.powder (Trelegy Ellipta) gabapentin 100 mg capsule 100 mg PO HS #90 caps 09/17/22 06/26/23 Rx duloxetine 30 mg capsule,delayed 30 mg PO QAM #90 caps 09/18/22 06/26/23 Rx release ezetimibe 10 mg tablet (Zetia) 10 mg PO QAM #90 tabs 09/18/22 06/26/23 Rx metoprolol succinate 100 mg 100 mg PO QAM #90 tabs 09/18/22 06/26/23 Rx tablet,extended release 24 hr pantoprazole 40 mg tablet,delayed 40 mg PO BID #180 tabs 09/18/22 06/26/23 Rx release rosuvastatin 40 mg tablet 40 mg PO QAM #90 tabs 09/18/22 06/26/23 Rx diclofenac sodium 1 % topical gel 2 g topical QID PRN Pain #100 grams 02/04/23 06/26/23 Rx (Arthritis Pain (diclofenac)) Vitamin B 12 Cypo Value 200+20 1,000 mcg PO DAILY 03/25/23 06/26/23 History buspirone 10 mg tablet 10 mg PO TID 03/25/23 06/26/23 History famotidine 20 mg tablet 20 mg PO BID 03/25/23 06/26/23 History isosorbide mononitrate 30 mg 30 mg PO QAM 03/25/23 06/26/23 History tablet,extended release 24 hr lisinopril 10 mg tablet 10 mg PO QAM 05/14/23 06/26/23 History ergocalciferol (vitamin D2) 1,250 50,000 unit PO WK 06/18/23 06/26/23 History mcg (50,000 unit) capsule folic acid 1 mg tablet 1 mg PO QAM 06/18/23 06/26/23 History acetaminophen 500 mg tablet 1,000 mg (2 x 500 mg) PO Q8H #90 06/24/23 06/26/23 Rx (Tylenol Extra Strength) tabs gabapentin 100 mg capsule 200 mg (2 x 100 mg) PO TID #90 caps 06/24/23 06/26/23 Rx insulin aspart U-100 100 unit/mL See Rx Instructions .Route 06/24/23 06/26/23 Rx subcutaneous solution (Novolog .COMPLEX #10 mL U-100 Insulin aspart) insulin glargine 100 unit/mL 20 unit (0.2 mL) SC QAM #10 mL 06/24/23 06/26/23 Rx subcutaneous solution (Lantus U-100 Insulin) prednisone 10 mg tablet 10 mg PO DIRECTED #3 tabs 06/24/23 Rx lidocaine 5 % topical patch 0 patch topical DAILY PRN pain 06/26/23 History (Lidoderm) metformin 500 mg tablet 1,000 mg PO BID 06/26/23 06/26/23 History tramadol 50 mg tablet 0 mg PO Q8H PRN pain 06/26/23 History Past Med/Surg History Medical History (Updated 06/26/23 @ 13:15 by Vijay Washington PA-C) Acute kidney injury Cervical spinal stenosis Edema Acute neck pain Type 2 diabetes mellitus with chronic kidney disease Hyperosmolar hyperglycemic state (HHS) Hypotension Chest pain Acute hyperglycemia Vomiting Chest pain History of COVID-19 2020 - resolved COVID Hyperglycemia due to type 2 diabetes mellitus Acute non-ST elevation myocardial infarction (NSTEMI) 11/28/2021 had [facility] medical management and follow with dr abdullahi apt 02/09/2022 Folic acid deficiency Vitamin B12 deficiency Asymptomatic bacteriuria Hypotension Back pain Abrasion Elevated troponin Fall Accelerated essential hypertension Elevated troponin Chest pain chronic chest pain and cardiac is negative Dyslipidemia Cervical pain (neck) Chronic pain syndrome Depression Diabetic gastroparesis Diabetic peripheral neuropathy GERD without esophagitis Lumbar spondylosis Mckeon esophagus CAD (coronary artery disease) s/p stents to RCA November 2005; s/p stents to LAD, LCx in January 2006; s/p stents to RCA in 08/2006 IBS (irritable bowel syndrome) Diabetes mellitus, type 2 IDDM Myocardial Infarction [place]- November 2005, January 2006, Aug 2006 3 total within an 8 month span--HX [place] [facility] [place] DR. ABDULLAHI Surgical History Status post trigger finger release right thumb S/P coronary artery stent placement s/p stents to RCA November 2005; s/p stents to LAD, LCx in January 2006; s/p stents to RCA in 08/2006 History of total hysterectomy with bilateral salpingo-oophorectomy (BSO) History of lumbar spinal fusion History of total right knee replacement (TKR) History of esophageal dilatation History of colonoscopy with polypectomy History of esophagogastroduodenoscopy (EGD) History of tooth extraction all teeth History of cholecystectomy History of cataract surgery BL [place] cardiac [place] [facility] [place]--s/p stents to RCA November 2005; s/p stents to LAD, LCx in January 2006; s/p stents to RCA in 08/2006 Family History Brother Myocardial infarction Anxiety Heart disease Hypertension Cancer Sister Family history of reaction to anesthesia difficulty waking Hypertension Heart disease Myocardial infarction Anxiety Cancer Diabetes Father Anxiety Heart disease Hypertension Mother Anxiety Hypertension Heart disease Unknown Cancer skin, GI Denies family history of Ovarian cancer Prostate cancer Breast cancer Colorectal cancer Stroke Social History Smoking Status: Never smoker Tobacco Type: Cigarettes Age Started Using Tobacco: 18; Age Quit Using Tobacco: 57; Second Hand Exposure: No; Do You Dip or Chew Tobacco: No; Hx Alcohol Use: No Hx Substance Use: No Preferred Language: [place] Communication Ability: Effective Visual Impairment: Limited Hearing Ability: Normal Mold Finisher Required: No Beliefs That Will Affect Care: None marital status: / Current Living Situation: Alone Current Living Situation Comment: apartment building current occupational status: retired and disabled How many Children do You have: 3 Feels Safe at Home: Yes Childhood Exposure to Second-Hand Smoke: No caffeine: Yes (drinks coffee, diet pepsi occasionally ) Dental Care, Regularly: No Physical Activity Frequency: Does not Exercise Seatbelt Use: always Sunscreen Use: No Assistive Devices: Cane and Walker Results & Data Results & Data Vital Signs (Past 12 Hours) Vital Signs Temp Pulse Pulse Resp BP BP Pulse Ox 06/26/23 12:26 64 17 143/75 H 98 06/26/23 10:30 57 L 18 178/81 H 96 06/26/23 10:00 60 06/26/23 09:49 36.7 C 59 L 16 194/105 H 96 O2 Del Method 06/26/23 12:26 Room Air 06/26/23 10:30 Room Air 06/26/23 10:00 06/26/23 09:49 Room Air Code Status & VTE Plan VTE Prophylaxis Plan VTE Prophylaxis will be ordered: Yes Supervising Physician Co-Signing Physician Notes Patient seen and examined, chart reviewed, case discussed with NENA Washington and I agree with the assessment and plan as above except as otherwise noted Labs and images reviewed 78-year-old female who presents with nausea/vomiting, constipation, and suspected post renal ARF with creatinine rise to 1.9. Brisk return after Bliss placed. Was recently started on tramadol and DDx includes narcotic urinary retention versus constipation with obstructive. Agree with trending electrolytes, bowel regimen, continuing Bliss. Potassium is slightly elevated, she has received 1 L of fluid. No peak T waves on EKG. We will repeat BMP in 4 hours. If potassium rises add calcium gluconate, insulin dextrose, and +/- szc. If this improves then can defer and repeat next BMP in the morning agree with assessment and management as above, heart rate is regular, blood pressure is normal PG Care Time/CCT Total # of Minutes Spent Total Time Spent with Patient: Total time spent is greater than 50% in coordination of care (as documented) at patient's floor/unit and/or counseling patient: Coding
[2023-06-26 15:43] LABS: Calcium 8.8 mg/dl (8.6-10.3); Potassium 6.2 mmol/L (3.5-5.1)
[2023-06-26 15:53] LABS: BUN Creatinine Ratio 28.8 (10-20); Creatinine Clr Calc Pharmacy 28.1 ml/min; Est GFR (African American) 33.4 ml/min; Est GFR (Non-African American) 28.8 ml/min
[2023-06-26] MEDS ORDERED: STAT IV/IM STA (15:58)
[2023-06-26] MEDS ORDERED: CALCIUM GLUCONATE 10% 1,000 MG in SODIUM CHLOR 0.9% MINI-B 50 ML IV ONE (15:58)
[2023-06-26] MEDS ORDERED: INSULIN HUMAN REGULAR PER UNIT 10 UNITS in SYRINGE 9.9 ML IV STA (16:04)
[2023-06-26] MEDS ORDERED: SODIUM ZIRCONIUM CYCLOSILICATE 10 GM PACKET PO STA (16:04)
[2023-06-26] MEDS ORDERED: DEXTROSE 50% 50 ML SYRINGE IV STA (16:04)
[2023-06-26] MEDS ORDERED: CARBOHYDRATES FOR HYPOGLYCEMIA PO PRN (16:28)
[2023-06-26] MEDS ORDERED: GLUCOSE 40% GEL 15 GM TUBE PO PRN (16:28)
[2023-06-26] MEDS ORDERED: DICLOFENAC SOD 1% GEL 100 GM TUBE EXT PRN (16:28)
[2023-06-26] MEDS ORDERED: bisacodyL 10 MG SUPP PR ONE (16:28)
[2023-06-26] MEDS ORDERED: GLUCOSE 10 TAB/TUBE PO PRN (16:28)
[2023-06-26] MEDS ORDERED: ONDANSETRON INJ 2 MG/ML 2 ML VIAL IV PRN (16:28)
[2023-06-26] MEDS ORDERED: DEXTROSE 50% 50 ML SYRINGE IV PRN (16:28)
[2023-06-26] MEDS ORDERED: MAGNESIUM HYDROXIDE SUSP 30 ML UDC PO PRN (16:28)
[2023-06-26] MEDS ORDERED: GLUCAGON FOR INJ 1 MG VIAL SQ PRN (16:28)
[2023-06-26] MEDS: SODIUM CHLORIDE 0.9% 500 ML IV SCH ×2 (17:30→19:55)
[2023-06-26 18:18] LABS: BUN Creatinine Ratio 28.5 (10-20); Calcium 9.2 mg/dl (8.6-10.3); Est GFR (African American) 34.6 ml/min; Est GFR (Non-African American) 29.8 ml/min; Potassium 4.5 mmol/L (3.5-5.1)
[2023-06-26] MEDS: INSULIN ASPART PER UNIT CHARGE SC SCH ×2 (19:29→21:19)
[2023-06-26] MEDS: GABAPENTIN 100 MG CAP PO SCH ×2 (19:30→19:31)
[2023-06-26] MEDS: FAMOTIDINE 20 MG TAB PO SCH (19:31)
[2023-06-26] MEDS: HEPARIN SOD 5,000 UNIT/0.5 ML VIAL SQ SCH (19:32)
[2023-06-26] MEDS: busPIRone 5 MG TAB PO SCH ×2 (19:32→19:34)
[2023-06-26] MEDS: PANTOprazole 40 MG TAB PO SCH (19:34)
[2023-06-26] MEDS: ACETAMINOPHEN 500 MG TAB PO SCH (19:35)
[2023-06-26 23:05] LABS: BUN Creatinine Ratio 34.6 (10-20); Calcium 9.6 mg/dl (8.6-10.3); Creatinine Clr Calc Pharmacy 33.9 ml/min; Est GFR (African American) 43.7 ml/min; Est GFR (Non-African American) 37.7 ml/min; Potassium 4.6 mmol/L (3.5-5.1)
[2023-06-27] MEDS: SODIUM CHLORIDE 0.9% 500 ML IV SCH ×3 (04:28→14:30)
[2023-06-27] MEDS: ACETAMINOPHEN 500 MG TAB PO SCH ×3 (06:36→22:00)
[2023-06-27 06:40] LABS: Basophils # (auto) 0.04 K/uL (0.00-0.20); Basophils % (auto) 0.2 %; Eosinophils # (auto) 0.01 K/uL (0.00-0.50); Eosinophils % (auto) 0.1 %; Hematocrit (blood only) 41.1 % (37.0-47.0); Hemoglobin 13.8 g/dl (12.0-16.0); Immature Granulocytes # (auto) 0.29 K/uL (0.01-0.20); Immature Granulocytes % (auto) 1.6 %; Lymphocytes # (auto) 1.23 K/uL (1.20-3.40); Lymphocytes % (auto) 6.8 %; Mean Corpuscular Hemoglobin 27.7 pg (25.0-34.0); Mean Corpuscular Hgb Conc 33.6 g/dL (32.0-36.0); Mean Corpuscular Volume 82.5 fL (80.0-100.0); Mean Platelet Volume 10.3 fL (9.4-12.4); Monocytes # (auto) 1.08 K/uL (0.11-0.59); Neutrophils # (auto) 15.41 K/uL (1.40-6.50); Neutrophils % (auto) 85.3 %; Platelet Count 235 K/uL (130-400); RDW Coefficient of Variation 15.7 % (11.5-14.5); RDW Standard Deviation 46.5 fL (36.4-46.3); Red Blood Count 4.98 M/uL (4.20-5.40); White Blood Count 18.06 K/ul (4.8-10.8)
[2023-06-27 06:49] LABS: Calcium 9.2 mg/dl (8.6-10.3); Magnesium 2.6 mg/dl (1.7-2.4); Potassium 5.4 mmol/L (3.5-5.1)
[2023-06-27 06:54] LABS: BUN Creatinine Ratio 36.5 (10-20); Creatinine Clr Calc Pharmacy 36.3 ml/min; Est GFR (African American) 47.9 ml/min; Est GFR (Non-African American) 41.4 ml/min
[2023-06-27] MEDS ORDERED: PATIROMER CALCIUM SORBITEX 8.4 GM PACK PO ONE (08:09)
[2023-06-27] MEDS ORDERED: SENNOSIDES 8.8 MG/5 ML UDC PO ONE (08:10)
--- NOTE | 2023-06-27 08:14 | Hospitalist Progress Note ---
Date of Service June 27, 2023 Assessment & Plan (1) Constipation: Plan: Lower transverse abdominal pain starting 06/24, large stool ball in the rectum concern for stercoral colitis leukocytosis is present still without significant bowel movements will increase cathartic agents CT ab/pelvis revealed large amount of stool, mild b/l hydronephrosis, bladder distention, but no pneumoperitoneum Bliss was placed in the ED, and patient reported moderate abdominal relief Will initiate bowel regimen: one dose senna 06/27, MiraLAX 17qm bid for cervicalgia Acetaminophen 1000 mg every 8 hours for pain (max 3000 mg daily) had good relief with neurontin Avoid NSAIDs in the setting of SHERRIE (2) Hyperkalemia: Plan: K 5.6 --> 6.2 on arrival In the setting of SHERRIE / kidney impairment improved, additional lokelma 06/27/23 (3) Acute kidney injury: Plan: in setting of CKD3, SHERRIE resolved Hold tramadol Hold lisinopril (4) DM2 (diabetes mellitus, type 2): Plan: Last A1c 11.5% on 05/15/2023 Hold metformin Patient normally takes Lantus 20u QAM basal bolus insulin (5) Cervicalgia: Plan: Present during last [facility] admission from 06/18 - 06/24 Patient denies pain at time of admission Acetaminophen (as above) Continue gabapentin (6) Hypertension: Plan: BP 143/75 at time of admission Continue metoprolol, isosorbide mononitrate (7) Dyslipidemia: Plan: Continue ezetimibe, rosuvastatin (8) Nausea & vomiting: Plan: Vomiting on the morning of 06/26 EKG sinus bradycardia; QTc 423 Zofran 4 mg IV q6h as needed for nausea (9) GERD (gastroesophageal reflux disease): Plan: Continue famotidine, pantoprazole (10) CAD (coronary artery disease): (11) Mckeon esophagus: (12) Diabetic gastroparesis: (13) IBS (irritable bowel syndrome): (14) Obesity (BMI 30.0-34.9): (15) Depression: (16) Anxiety: Plan Disposition: Admit to PCU telemetry due to hyperkalemia DNR/DNI VTE PPx: SCDs, heparin 5000u SQ q12h Admission and Anticipated Discharge Date Admission Date: June 26, 2023 Subjective pt did have some liquid bowel movements but nothing solid not having significant abdominal pain and no neck pain Physical Exam Physical Exam: awake and alert no neck pain abd is soft and non tender, no rebound no guarding nabs Results & Data Results & Data Vital Signs (Past 12 Hours) Vital Signs Temp Pulse Resp BP Pulse Ox O2 Del Method 06/27/23 07:55 97.9 F 87 16 124/74 93 Room Air 06/27/23 03:46 97.5 F L 74 18 116/78 94 Room Air 06/26/23 23:00 97.3 F L 72 19 112/75 94 Room Air Laboratory Results Reviewed CBC reviewed chemistry PG Care Time/CCT Total # of Minutes Spent Total Time Spent with Patient: Total time spent is greater than 50% in coordination of care (as documented) at patient's floor/unit and/or counseling patient: Coding Level of Care Code 61287 SUB INP/OBS CARE 235MIN Diagnoses Constipation K59.00 Hyperkalemia E87.5 Acute kidney injury N17.9 DM2 (diabetes mellitus, type 2) E11.9 Cervicalgia M54.2 Primary hypertension I10 Hypertension type: primary hypertension Dyslipidemia E78.5 Nausea & vomiting R11.2 Gastroesophageal reflux disease without esophagitis K21.9 Esophagitis presence: without esophagitis Coronary artery disease involving [place] coronary artery of [place] heart, angina presence unspecified I25.10 Coronary Disease-Associated Artery/Lesion type: [place] artery [place] vs. transplanted heart: [place] heart Associated angina: angina presence unspecified Mckeon's esophagus without dysplasia K22.70 Mckeon's esophagus type: without dysplasia Diabetic gastroparesis E11.43; K31.84 IBS (irritable bowel syndrome) K58.9 Obesity (BMI 30.0-34.9) E66.9 Mild episode of recurrent major depressive disorder F33.0 Depression Type: major depressive disorder Major depression recurrence: recurrent Active/Remission status: currently active Major depression episode severity: mild Anxiety F41.9 (6) Hypertension Hypertension type: primary hypertension Qualified Code(s): I10 - Essential (primary) hypertension (9) GERD (gastroesophageal reflux disease) Esophagitis presence: without esophagitis Qualified Code(s): K21.9 - Gastro- esophageal reflux disease without esophagitis (10) CAD (coronary artery disease) Coronary Disease-Associated Artery/Lesion type: [place] artery [place] vs. transplanted heart: [place] heart Associated angina: angina presence unspecified Qualified Code(s): I25.10 - Atherosclerotic heart disease of [place] coronary artery without angina pectoris (11) Mckeon esophagus Mckeon's esophagus type: without dysplasia Qualified Code(s): K22.70 - Mckeon's esophagus without dysplasia (15) Depression Depression Type: major depressive disorder Major depression recurrence: recurrent Active/Remission status: currently active Major depression episode severity: mild Qualified Code(s): F33.0 - Major depressive disorder, recurrent, mild
[2023-06-27] MEDS: INSULIN ASPART PER UNIT CHARGE SC SCH ×4 (08:50→21:46)
[2023-06-27] MEDS: METOPROLOL SUCC 50MG EXT REL TAB PO SCH (08:57)
[2023-06-27] MEDS: DULoxetine HCL 30 MG CAP PO SCH (08:57)
[2023-06-27] MEDS: FOLIC ACID 1 MG TAB PO SCH (08:57)
[2023-06-27] MEDS: ROSUVASTATIN CALCIUM 20 MG TAB PO SCH (08:57)
[2023-06-27] MEDS: ISOSORBIDE MONO EXTENDED REL 30 MG TABCR PO SCH (08:57)
[2023-06-27] MEDS: FAMOTIDINE 20 MG TAB PO SCH ×2 (08:57→21:48)
[2023-06-27] MEDS: EZETIMIBE 10 MG TAB PO SCH (08:57)
[2023-06-27] MEDS: busPIRone 5 MG TAB PO SCH ×3 (08:57→21:47)
[2023-06-27] MEDS: UMECLIDINIUM/VILANTEROL 62.5/25MCG 7 PUFFS/INHALER INH SCH (08:58)
[2023-06-27] MEDS: GABAPENTIN 100 MG CAP PO SCH ×4 (08:58→21:48)
[2023-06-27] MEDS: HEPARIN SOD 5,000 UNIT/0.5 ML VIAL SQ SCH ×2 (08:58→21:49)
[2023-06-27] MEDS: FLUTICASONE FUROATE 100MCG 14 PUFFS/INHALER INH SCH (08:58)
[2023-06-27] MEDS: POLYETHYLENE (MIRALAX) 17 GM PACK PO SCH ×2 (08:59→21:45)
[2023-06-27] MEDS: ASPIRIN 81 MG ECTAB PO SCH (08:59)
[2023-06-27] MEDS ORDERED: POLYETHYLENE (MIRALAX) 17 GM PACK PO SCH (09:00)
[2023-06-27] MEDS: LANTUS PER UNIT CHARGE SQ SCH ×2 (09:04→21:46)
[2023-06-27] MEDS: PANTOprazole 40 MG TAB PO SCH ×2 (13:55→21:48)
[2023-06-27] MEDS ORDERED: bisacodyL 10 MG SUPP PR STA (15:18)
[2023-06-27] MEDS ORDERED: MINERAL OIL 30 ML UDC PO ONE (15:18)
[2023-06-27] MEDS ORDERED: POLYETHYLENE (MIRALAX) 17 GM PACK PO ONE (15:18)
[2023-06-27] MEDS: SODIUM CHLORIDE 0.9% 1,000 ML IV SCH (17:40)
--- NOTE | 2023-06-27 19:59 | Electrocardiogram Report ---
Test Reason : Blood Pressure : / mmHG Vent. Rate : 059 BPM Atrial Rate : 059 BPM P-R Int : 134 ms QRS Dur : 066 ms QT Int : 428 ms P-R-T Axes : 057 022 070 degrees QTc Int : 423 ms Sinus bradycardia Cannot rule out Anterior infarct (cited on or before 26-JUN-2023) Abnormal ECG When compared with ECG of 18-JUN-2023 10:19, Vent. rate has decreased BY 53 BPM Confirmed by Lennox Zaman ([id number]) on 06/27/2023 7:58:45 PM Referred By: REFERRED SELF Confirmed By:Lennox Zaman
[2023-06-28 05:53] LABS: Hematocrit (blood only) 34.8 % (37.0-47.0); Hemoglobin 11.6 g/dl (12.0-16.0); Mean Corpuscular Hemoglobin 27.9 pg (25.0-34.0); Mean Corpuscular Hgb Conc 33.3 g/dL (32.0-36.0); Mean Corpuscular Volume 83.7 fL (80.0-100.0); Platelet Count 185 K/uL (130-400); RDW Coefficient of Variation 15.9 % (11.5-14.5); RDW Standard Deviation 48.5 fL (36.4-46.3); Red Blood Count 4.16 M/uL (4.20-5.40); White Blood Count 12.48 K/ul (4.8-10.8)
[2023-06-28 06:06] LABS: BUN Creatinine Ratio 41.9 (10-20); Calcium 8.3 mg/dl (8.6-10.3); Creatinine Clr Calc Pharmacy 43.2 ml/min; Est GFR (African American) 59.7 ml/min; Est GFR (Non-African American) 51.5 ml/min; Potassium 4.5 mmol/L (3.5-5.1)
[2023-06-28] MEDS: ACETAMINOPHEN 500 MG TAB PO SCH ×3 (06:13→21:44)
[2023-06-28] MEDS: GABAPENTIN 100 MG CAP PO SCH ×4 (06:13→21:37)
[2023-06-28 06:33] LABS: Basophils # (auto) 0.01 K/uL (0.00-0.20); Basophils % (auto) 0.1 %; Dohle Bodies 1+; Echinocytes 1+; Eosinophils # (auto) 0.09 K/uL (0.00-0.50); Eosinophils % (auto) 0.7 %; Immature Granulocytes # (auto) 0.05 K/uL (0.01-0.20); Immature Granulocytes % (auto) 0.4 %; Lymphocytes # (auto) 1.27 K/uL (1.20-3.40); Lymphocytes % (auto) 10.2 %; Monocytes # (auto) 0.52 K/uL (0.11-0.59); Monocytes % (auto) 4.2 %; Neutrophils # (auto) 10.54 K/uL (1.40-6.50); Neutrophils % (auto) 84.4 %
[2023-06-28] MEDS: ROSUVASTATIN CALCIUM 20 MG TAB PO SCH (08:29)
[2023-06-28] MEDS: FAMOTIDINE 20 MG TAB PO SCH ×2 (08:29→21:37)
[2023-06-28] MEDS: PANTOprazole 40 MG TAB PO SCH ×2 (08:29→21:38)
[2023-06-28] MEDS: EZETIMIBE 10 MG TAB PO SCH (08:29)
[2023-06-28] MEDS: UMECLIDINIUM/VILANTEROL 62.5/25MCG 7 PUFFS/INHALER INH SCH (08:30)
[2023-06-28] MEDS: busPIRone 5 MG TAB PO SCH ×3 (08:30→21:37)
[2023-06-28] MEDS: SODIUM CHLORIDE 0.9% 1,000 ML IV SCH (08:30)
[2023-06-28] MEDS: METOPROLOL SUCC 50MG EXT REL TAB PO SCH (08:30)
[2023-06-28] MEDS: FLUTICASONE FUROATE 100MCG 14 PUFFS/INHALER INH SCH (08:30)
[2023-06-28] MEDS: FOLIC ACID 1 MG TAB PO SCH (08:30)
[2023-06-28] MEDS: ISOSORBIDE MONO EXTENDED REL 30 MG TABCR PO SCH (08:30)
[2023-06-28] MEDS: POLYETHYLENE (MIRALAX) 17 GM PACK PO SCH (08:30)
[2023-06-28] MEDS: DULoxetine HCL 30 MG CAP PO SCH (08:30)
[2023-06-28] MEDS: HEPARIN SOD 5,000 UNIT/0.5 ML VIAL SQ SCH ×2 (08:30→21:37)
[2023-06-28] MEDS: ASPIRIN 81 MG ECTAB PO SCH (08:30)
[2023-06-28] MEDS: INSULIN ASPART PER UNIT CHARGE SC SCH ×4 (09:56→21:45)
[2023-06-28] MEDS: LANTUS PER UNIT CHARGE SQ SCH (10:18)
--- NOTE | 2023-06-28 19:27 | Hospitalist Progress Note ---
Date of Service June 28, 2023 Assessment & Plan (1) Constipation: Plan: Lower transverse abdominal pain starting 06/24, large stool ball in the rectum concern for stercoral colitis Stool is now soft enema did not reveal large volumes of stool patient has incontinence of stool now we will stop cathartic agents at this time. Leukocytosis improved complete weeks course of antibiotics patient wishes to go home from here not return to rehab Ordered CT KUB to check in the morning of 06/29/2023 CT ab/pelvis revealed large amount of stool, mild b/l hydronephrosis, bladder distention, but no pneumoperitoneum Bliss was placed in the ED, and patient reported moderate abdominal relief Will initiate bowel regimen: one dose senna 06/27, MiraLAX 17qm bid for cervicalgia Acetaminophen 1000 mg every 8 hours for pain (max 3000 mg daily) had good relief with neurontin Avoid NSAIDs in the setting of SHERRIE (2) Hyperkalemia: Plan: K 5.6 --> 6.2 on arrival In the setting of SHERRIE / kidney impairment improved, additional lokelma 06/27/23 (3) Acute kidney injury: Plan: in setting of CKD3, SHERRIE resolved Hold tramadol Hold lisinopril blood pressure remains uncontrolled (4) DM2 (diabetes mellitus, type 2): Plan: Last A1c 11.5% on 05/15/2023 Hold metformin Patient normally takes Lantus 20u QAM basal bolus insulin (5) Cervicalgia: Plan: Present during last [facility] admission from 06/18 - 06/24 Patient denies pain at time of admission Acetaminophen (as above) Continue gabapentin (6) Hypertension: Plan: BP 143/75 at time of admission Continue metoprolol, isosorbide mononitrate (7) Dyslipidemia: Plan: Continue ezetimibe, rosuvastatin (8) Nausea & vomiting: Plan: Vomiting on the morning of 06/26 EKG sinus bradycardia; QTc 423 Zofran 4 mg IV q6h as needed for nausea (9) GERD (gastroesophageal reflux disease): Plan: Continue famotidine, pantoprazole (10) CAD (coronary artery disease): (11) Mckeon esophagus: (12) Diabetic gastroparesis: (13) IBS (irritable bowel syndrome): (14) Obesity (BMI 30.0-34.9): (15) Depression: (16) Anxiety: Plan Disposition: Admit to PCU telemetry due to hyperkalemia DNR/DNI VTE PPx: SCDs, heparin 5000u SQ q12h Admission and Anticipated Discharge Date Admission Date: June 26, 2023 Subjective pt did have some liquid bowel movements but nothing solid not having significant abdominal pain and no neck pain has incontinence of stool, no concern for urinary retention Physical Exam Physical Exam: awake and alert no neck pain abd is soft and non tender, no rebound no guarding nabs rectal exam, hemorrhoids, small high tone sphincter, stool in rectal valut is soft and does not need disimpaction, is incontinent of stool Results & Data Results & Data Vital Signs (Past 12 Hours) Vital Signs Temp Pulse Pulse Resp BP Pulse Ox O2 Del Method 06/28/23 15:41 98.6 F 87 18 112/64 91 Room Air 06/28/23 11:34 97.7 F 59 L 18 98/62 L 97 Room Air 06/28/23 08:00 66 06/28/23 07:41 97.3 F L 62 18 92/63 L 93 Room Air Laboratory Results Reviewed CBC reviewed chemistry PG Care Time/CCT Total # of Minutes Spent Total Time Spent with Patient: Total time spent is greater than 50% in coordination of care (as documented) at patient's floor/unit and/or counseling patient: Coding Level of Care Code 49650 SUB INP/OBS CARE 2/35MIN Diagnoses Constipation K59.00 Hyperkalemia E87.5 Acute kidney injury N17.9 DM2 (diabetes mellitus, type 2) E11.9 Cervicalgia M54.2 Primary hypertension I10 Hypertension type: primary hypertension Dyslipidemia E78.5 Nausea & vomiting R11.2 Gastroesophageal reflux disease without esophagitis K21.9 Esophagitis presence: without esophagitis Coronary artery disease involving [place] coronary artery of [place] heart, angina presence unspecified I25.10 Coronary Disease-Associated Artery/Lesion type: [place] artery [place] vs. transplanted heart: [place] heart Associated angina: angina presence unspecified Mckeon's esophagus without dysplasia K22.70 Mckeon's esophagus type: without dysplasia Diabetic gastroparesis E11.43; K31.84 IBS (irritable bowel syndrome) K58.9 Obesity (BMI 30.0-34.9) E66.9 Mild episode of recurrent major depressive disorder F33.0 Depression Type: major depressive disorder Major depression recurrence: recurrent Active/Remission status: currently active Major depression episode severity: mild Anxiety F41.9 (6) Hypertension Hypertension type: primary hypertension Qualified Code(s): I10 - Essential (primary) hypertension (9) GERD (gastroesophageal reflux disease) Esophagitis presence: without esophagitis Qualified Code(s): K21.9 - Gastro- esophageal reflux disease without esophagitis (10) CAD (coronary artery disease) Coronary Disease-Associated Artery/Lesion type: [place] artery [place] vs. transplanted heart: [place] heart Associated angina: angina presence unspecified Qualified Code(s): I25.10 - Atherosclerotic heart disease of [place] coronary artery without angina pectoris (11) Mckeon esophagus Mckeon's esophagus type: without dysplasia Qualified Code(s): K22.70 - Mckeon's esophagus without dysplasia (15) Depression Depression Type: major depressive disorder Major depression recurrence: recurrent Active/Remission status: currently active Major depression episode severity: mild Qualified Code(s): F33.0 - Major depressive disorder, recurrent, mild
[2023-06-28] MEDS ORDERED: LANTUS PER UNIT CHARGE SQ SCH (21:00)
[2023-06-29] MEDS: ACETAMINOPHEN 500 MG TAB PO SCH (06:32)
[2023-06-29 06:43] LABS: Basophils # (auto) 0.01 K/uL (0.00-0.20); Basophils % (auto) 0.1 %; Eosinophils # (auto) 0.15 K/uL (0.00-0.50); Eosinophils % (auto) 1.2 %; Hematocrit (blood only) 30.2 % (37.0-47.0); Immature Granulocytes # (auto) 0.07 K/uL (0.01-0.20); Immature Granulocytes % (auto) 0.5 %; Lymphocytes # (auto) 1.37 K/uL (1.20-3.40); Lymphocytes % (auto) 10.5 %; Mean Corpuscular Hemoglobin 27.4 pg (25.0-34.0); Mean Corpuscular Hgb Conc 33.1 g/dL (32.0-36.0); Mean Corpuscular Volume 82.7 fL (80.0-100.0); Mean Platelet Volume 10.2 fL (9.4-12.4); Monocytes % (auto) 3.8 %; Neutrophils # (auto) 10.89 K/uL (1.40-6.50); Neutrophils % (auto) 83.9 %; Platelet Count 158 K/uL (130-400); RDW Coefficient of Variation 15.6 % (11.5-14.5); Red Blood Count 3.65 M/uL (4.20-5.40); White Blood Count 12.99 K/ul (4.8-10.8)
[2023-06-29 07:16] LABS: BUN Creatinine Ratio 37.2 (10-20); Calcium 7.9 mg/dl (8.6-10.3); Est GFR (African American) 85.6 ml/min; Est GFR (Non-African American) 73.8 ml/min; Potassium 3.9 mmol/L (3.5-5.1)
[2023-06-29] MEDS: FLUTICASONE FUROATE 100MCG 14 PUFFS/INHALER INH SCH (07:26)
[2023-06-29] MEDS: GABAPENTIN 100 MG CAP PO SCH ×2 (07:27→12:46)
[2023-06-29] MEDS: ASPIRIN 81 MG ECTAB PO SCH (07:27)
[2023-06-29] MEDS: UMECLIDINIUM/VILANTEROL 62.5/25MCG 7 PUFFS/INHALER INH SCH (07:27)
[2023-06-29] MEDS: ROSUVASTATIN CALCIUM 20 MG TAB PO SCH (07:28)
[2023-06-29] MEDS: busPIRone 5 MG TAB PO SCH (07:28)
[2023-06-29] MEDS: METOPROLOL SUCC 50MG EXT REL TAB PO SCH (07:29)
[2023-06-29] MEDS: EZETIMIBE 10 MG TAB PO SCH (07:29)
[2023-06-29] MEDS: FAMOTIDINE 20 MG TAB PO SCH (07:29)
[2023-06-29] MEDS: ISOSORBIDE MONO EXTENDED REL 30 MG TABCR PO SCH (07:29)
[2023-06-29] MEDS: DULoxetine HCL 30 MG CAP PO SCH (07:29)
[2023-06-29] MEDS: PANTOprazole 40 MG TAB PO SCH (07:30)
[2023-06-29] MEDS: FOLIC ACID 1 MG TAB PO SCH (07:30)
[2023-06-29] MEDS: HEPARIN SOD 5,000 UNIT/0.5 ML VIAL SQ SCH (07:32)
[2023-06-29] MEDS: INSULIN ASPART PER UNIT CHARGE SC SCH ×2 (08:34→12:47)
--- NOTE | 2023-06-29 12:43 | XRay Report ---
XR abdomen 2V w PA chest HISTORY: 78 years-old Female eval obstipation acute generalized abdominal pain COMPARISON: CT 06/26/2023 TECHNIQUE: PA view of the chest with erect and supine views of the abdomen FINDINGS: Cardiomediastinal and hilar silhouettes are within normal limits. Mild right hemidiaphragmatic elevat ion. No pneumothorax, pleural effusion or pulmonary edema. Coronary arterial stenting. Degenerative c hanges of the shoulders and spine. No free air. No renal or ureteral calculi identified. Moderate to marked fecal retention in the rectu m. Air-filled loops of large bowel are noted. No small bowel obstruction. IMPRESSION: 1. No acute processes of the chest. 2. Nonobstructive bowel gas pattern without pneumoperitoneum. 3. Moderate to extensive rectal fecal retention. 4. Mild gaseous distention of the large bowel. No evidence of a small bowel obstruction. ACT 112: Negative or not required by law. The above report was generated using voice recognition software. It may contain grammatical, syntax o r spelling errors. Electronically signed by: Jordan Vee M.D. 06/29/2023 12:41 PM
--- NOTE | 2023-06-29 19:53 | Discharge Summary ---
Date of Service June 29, 2023 Admission HPI Per Admitting Provider Claire is a 78-year-old female with PMH of bowel obstruction, HTN, cervical radiculopathy, IBS, CAD, anxiety, depression, Mckeon's esophagus, GERD, T2DM, lumbar spondylosis, diabetic gastroparesis, dyslipidemia, hemorrhoids, CKD stage III, and constipation. She presented from [facility] for abdominal pain x3 days, constipation x5 days, and 1 episode of vomiting the morning of 06/26. She was recently hospitalized at [facility] from 06/18 - 06/24 for cervical radiculopathy. She reports that her neck pain is not present on arrival. She exhibits questionable capacity during examination; A&O x1 to name and birthday, but not oriented to time, location. She endorses lower abdominal pain around the groin. Pain does not radiate. 1 episode of vomiting earlier today. No abdominal pain at present. No recent changes in diet. No sick contacts. Patient's vitals are stable at time of admission. ED course: Toradol 15 mg IV Zofran 4 mg IV Acetaminophen 1000 mg IV NSS 1000 mL ROS: Patient endorses constipation, lower abdominal pain, and one episode of vomiting. Patient denies fever, sweating, ALLRED, confusion, CP, SOB, cough, hematemesis, burning with urination, blood in the stool/urine, saddle anesthesia, or nu mbness/tingling/pain in legs. Principal Diagnosis obstipation acute hyperkalemia urinary retention Discharge Exam pt has improved, abdomen is soft and non tender Discharge Data Allergies Allergy/AdvReac Type Severity Reaction Status Date / Time cephalexin Allergy Intermediate Rash and Verified 06/18/23 15:28 itchiness Cephalosporins Allergy Intermediate Rash and Verified 06/18/23 15:28 itchiness Sulfa (Sulfonamide Allergy Intermediate Hives Verified 06/18/23 15:28 Antibiotics) Consultations 06/26/23 15:42 ED Decision to Admit Stat Ordered Studies 06/26/23 09:59 CT abd pelvis wo con Stat Hospital Course (1) Constipation: Lower transverse abdominal pain starting 06/24, large stool ball in the rectum concern for stercoral colitis Stool is now soft, rectal exam shows no stool ball residual has phimotic rectum with significant hemorrhoids, Leukocytosis improved complete weeks course of antibiotics patient wishes to go home from here not return to rehab Ordered CT KUB 06/29/2023, still fecal retention, CT ab/pelvis revealed large amount of stool, mild b/l hydronephrosis, bladder distention, but no pneumoperitoneum Bliss was placed in the ED, and patient reported moderate abdominal relief Will initiate bowel regimen: one dose senna 06/27, MiraLAX 17qm bid for cervicalgia Acetaminophen 1000 mg every 8 hours for pain (max 3000 mg daily) had good relief with neurontin (2) Hyperkalemia: K 5.6 --> 6.2 on arrival now resolved (3) Acute kidney injury: in setting of CKD3, SHERRIE resolved stopped lisinopril at mi (4) DM2 (diabetes mellitus, type 2): Last A1c 11.5% on 05/15/2023 metformin plus Lantus 20u QAM (5) Cervicalgia: Present during last [facility] admission from 06/18 - 06/24 Patient denies pain at time of admission Acetaminophen (as above) Continue gabapentin (6) Hypertension: BP 143/75 at time of admission Continue metoprolol, isosorbide mononitrate (7) Dyslipidemia: Continue ezetimibe, rosuvastatin (8) GERD (gastroesophageal reflux disease): Continue famotidine, pantoprazole (9) CAD (coronary artery disease): (10) Mckeon esophagus: (11) Diabetic gastroparesis: (12) IBS (irritable bowel syndrome): (13) Obesity (BMI 30.0-34.9): (14) Depression: (15) Anxiety: Plan DNR/DNI Total Time Total Time Spent Total Time Spent (In Minutes): it required greater than 30 minutes to prepare this patient for discharge Discharge Plan Discharge Items Patient Disposition: Home - Self-Care Reason For Visit: ABDOMINAL PAIN Discharge Diagnosis: severe constipation urinary retention elevated potassium Condition on Discharge: Fair Activity: Resume your previous activity Non-emergency contact: Primary Care Provider Call non-emergency contact if: your symptoms worsen Follow-up/Referrals: Berkley Sen PA-C [Primary Care Provider] - 07/07/23 11:00 am (Follow up scheduled on 07/07/23 @ 11am) Diet: Carb Consistent or DM2 Addtl Attending Provider Instructions: please take metamucil and laxative daily see your family doctor in one week reschedule your pain management appointment Pending Studies at Discharge: No Stand-Alone Forms: My [facility], Smoking Cessation Medications and DC Order Prescriptions: New tramadol 50 mg tablet 50 mg PO TID PRN (Reason: pain) Qty: 20 0RF Continued Trelegy Ellipta 100-62.5-25 mcg blister with device 1 inh inhalation DAILY Qty: 28 11RF Rx Instructions: She was instructed to rinse mouth thoroughly after each dose. ezetimibe [Zetia] 10 mg tablet 10 mg PO QAM Qty: 90 3RF metoprolol succinate 100 mg tablet extended release 24 hr 100 mg PO QAM Qty: 90 3RF pantoprazole 40 mg tablet,delayed release (DR/EC) 40 mg PO BID Qty: 180 3RF Rx Instructions: TAKE 1 TABLET BY MOUTH TWICE A DAY rosuvastatin 40 mg tablet 40 mg PO QAM Qty: 90 3RF folic acid 1 mg tablet 1 mg PO QAM Rx Instructions: TAKE 1 TABLET BY MOUTH ONCE DAILY IN THE MORNING ergocalciferol (vitamin D2) 1,250 mcg (50,000 unit) capsule 50,000 unit PO WK Rx Instructions: SUNDAYS insulin glargine [Lantus U-100 Insulin] 100 unit/mL Solution 20 unit SC QAM Qty: 10 0RF acetaminophen [Tylenol Extra Strength] 500 mg Tablet 1,000 mg PO Q8H Qty: 90 0RF insulin aspart U-100 [Novolog U-100 Insulin aspart] 100 unit/mL Solution See Rx Instructions .ROUTE .COMPLEX Qty: 10 0RF Rx Instructions: sliding scale --Goal BSG Range: Low 110mg/dL, High 140mg/dL --Correction Factor: 20 mg/dL/unit --Carbohydrate ratio = 5 g/unit --BSGs ACHS if eating, q6h if npo aspirin 81 mg Tablet,Delayed Release (Dr/Ec) 81 mg PO QAM Vitamin B 12 Cypo Value 200+20 1,000 mcg PO DAILY buspirone 10 mg tablet 10 mg PO TID Rx Instructions: TAKE ONE TABLET BY MOUTH THREE TIMES DAILY famotidine 20 mg tablet 20 mg PO BID Rx Instructions: PER DR 1ST isosorbide mononitrate 30 mg tablet extended release 24 hr 30 mg PO QAM metformin 500 mg tablet 1,000 mg PO BID lidocaine [Lidoderm] 5 % adhesive patch,medicated 0 patch TOP DAILY PRN (Reason: pain) Rx Instructions: not on list from pharmacy leave on most painful area for up to 12 hrs duloxetine 30 mg capsule,delayed release(DR/EC) 30 mg PO QAM Qty: 90 3RF diclofenac sodium 1 % gel 2 g topical QID PRN (Reason: Pain) Qty: 100 2RF Changed gabapentin 100 mg Capsule See Rx Instructions .ROUTE .COMPLEX Qty: 120 0RF Rx Instructions: 200 mg orally three times a day and 100 mg at night Discontinued prednisone 10 mg tablet 10 mg PO DIRECTED Qty: 3 0RF Rx Instructions: not on list from pharmacy see taper instructions 20 mg on 06/25, 10 mg on 06/26 lisinopril 10 mg tablet 10 mg PO QAM tramadol 50 mg tablet 0 mg PO Q8H PRN (Reason: pain) Rx Instructions: not on list from pharmacy Discharge Orders: Discharge Order (Routine); Ordered 06/29/23 Ordered By: Philip Esparza Admission Data Admit Date/Time: 06/26/23 14:04 Attending Provider: Philip Esparza Admit Provider: Lalito Sommer Primary Care Provider: Berkley Sen Other Providers: Lalito Sommer; [facility]; [facility] Other Interventions: Discharge Summary Assessment (RN) Last Done: 06/29/23 13:07 Coding Level of Care Code 80929 INP/OBS DISCH >30 MIN Diagnoses Constipation K59.00 Hyperkalemia E87.5 Acute kidney injury N17.9 DM2 (diabetes mellitus, type 2) E11.9 Cervicalgia M54.2 Primary hypertension I10 Hypertension type: primary hypertension Dyslipidemia E78.5 Gastroesophageal reflux disease without esophagitis K21.9 Esophagitis presence: without esophagitis Coronary artery disease involving [place] coronary artery of [place] heart, angina presence unspecified I25.10 Coronary Disease-Associated Artery/Lesion type: [place] artery [place] vs. transplanted heart: [place] heart Associated angina: angina presence unspecified Mckeon's esophagus without dysplasia K22.70 Mckeon's esophagus type: without dysplasia Diabetic gastroparesis E11.43; K31.84 IBS (irritable bowel syndrome) K58.9 Obesity (BMI 30.0-34.9) E66.9 Mild episode of recurrent major depressive disorder F33.0 Depression Type: major depressive disorder Major depression recurrence: recurrent Active/Remission status: currently active Major depression episode severity: mild Anxiety F41.9
== END 2023-06-29 15:04 | disposition home health service (06) | DRG 392 ==
LOC: ED 09:47 → SUATTDRO 14:04 → EDINP 14:04 → 2S 16:31
DX: F32.A Depression, unspecified; K58.9 Irritable bowel syndrome, unspecified; Z95.5 Presence of coronary angioplasty implant and graft; Z98.1 Arthrodesis status; K22.70 Barrett's esophagus without dysplasia; Z68.27 Body mass index [BMI] 27.0-27.9, adult; F41.9 Anxiety disorder, unspecified; I12.9 Hypertensive chronic kidney disease with stage 1 through stage 4 chronic kidney disease, or unspecified chronic kidney disease; E78.5 Hyperlipidemia, unspecified; M54.2 Cervicalgia; Z79.84 Long term (current) use of oral hypoglycemic drugs; K59.00 Constipation, unspecified; I25.2 Old myocardial infarction; N18.30 Chronic kidney disease, stage 3 unspecified; R33.9 Retention of urine, unspecified; D72.829 Elevated white blood cell count, unspecified; Z88.1 Allergy status to other antibiotic agents; Z86.16 Personal history of COVID-19; E11.43 Type 2 diabetes mellitus with diabetic autonomic (poly)neuropathy; E87.5 Hyperkalemia; Z96.651 Presence of right artificial knee joint; N17.9 Acute kidney failure, unspecified; K21.9 Gastro-esophageal reflux disease without esophagitis; E66.9 Obesity, unspecified; Z79.82 Long term (current) use of aspirin; Z88.2 Allergy status to sulfonamides

== ENCOUNTER 2023-07-01 12:45 | Observation (INO) ==
--- NOTE | 2023-07-01 13:02 | ED Triage Note ---
Date of Service July 01, 2023 History of Present Illness This patient was briefly evaluated while in triage. An abbreviated physical exam was performed. This patient is a 78-year-old Female who presents to the ED via ambulance for evaluation of lower abdominal/back pain, nausea and vomiting. The patient was in our hospital approximately two weeks ago for surgery for a bowel obstruction. Patient has not had any bowel movements for the past 3 days. Patient has not had anything to eat today. She did try to drink water earlier today, but vomited. The patient rates her discomfort a 10 out of 10. Physical Exam CONSTITUTIONAL: Healthy and well nourished. Patient appears in moderate discomfort. HEENT: Normocephalic, atraumatic. Pupils equal, round and reactive. NECK: Full active range of motion without discomfort. LYMPHATICS: No cervical chain adenopathy. RESPIRATORY: Clear to auscultation bilaterally with no wheezing, crackles, rhonchi or stridor. CARDIOVASCULAR: Regular rate and rhythm with no murmurs, rubs or gallops. GASTROINTESTINAL: Bowel sounds not present, with generalized tenderness to palpation. INTEGUMENTARY: No rash or other significant dermatologic conditions noted. HEMATOLOGIC: No ecchymosis or petechiae. PSYCHIATRIC: Positive affect. NEUROLOGIC: No focal neurologic deficits noted. Initial orders for labs and / or imaging were placed and patient was placed in the waiting area until a bed is available. Please see further documentation for the full ED course.
[2023-07-01] MEDS ORDERED: ONDANSETRON INJ 2 MG/ML 2 ML VIAL IV STA (13:05)
[2023-07-01 13:42] LABS: Basophils # (auto) 0.02 K/uL (0.00-0.20); Basophils % (auto) 0.2 %; Eosinophils # (auto) 0.02 K/uL (0.00-0.50); Eosinophils % (auto) 0.2 %; Hematocrit (blood only) 40.7 % (37.0-47.0); Hemoglobin 13.5 g/dl (12.0-16.0); Immature Granulocytes # (auto) 0.08 K/uL (0.01-0.20); Lymphocytes # (auto) 1.05 K/uL (1.20-3.40); Lymphocytes % (auto) 12.6 %; Mean Corpuscular Hemoglobin 27.3 pg (25.0-34.0); Mean Corpuscular Hgb Conc 33.2 g/dL (32.0-36.0); Mean Corpuscular Volume 82.4 fL (80.0-100.0); Mean Platelet Volume 9.8 fL (9.4-12.4); Monocytes # (auto) 0.33 K/uL (0.11-0.59); Neutrophils # (auto) 6.81 K/uL (1.40-6.50); Platelet Count 249 K/uL (130-400); RDW Coefficient of Variation 15.1 % (11.5-14.5); RDW Standard Deviation 45.6 fL (36.4-46.3); Red Blood Count 4.94 M/uL (4.20-5.40); White Blood Count 8.31 K/ul (4.8-10.8)
[2023-07-01 13:53] LABS: Alanine Aminotransferase 140 U/L (7-52); Albumin Globulin Ratio 1.1 (0.9-2); Albumin Level 3.5 gm/dl (3.4-5.0); Alkaline Phosphatase 240 U/L (34-104); Anion Gap 8 (3-11); Aspartate Aminotransferase 41 U/L (13-39); BUN Creatinine Ratio 17.5 (10-20); Bilirubin,Total 0.7 mg/dl (0.2-1.0); Blood Urea Nitrogen 20 mg/dl (6-23); Calcium 9.4 mg/dl (8.6-10.3); Carbon Dioxide 25 mmol/L (21-32); Chloride 102 mmol/L (98-107); Est GFR (African American) 54.1 ml/min; Est GFR (Non-African American) 46.7 ml/min; Globulin 3.2 gm/dl (2.5-4.0); Glucose 54 mg/dl (70-99(Fasting)); Lipase 6 U/L (11-82); Potassium 3.8 mmol/L (3.5-5.1); Sodium 135 mmol/L (136-145); Total Protein 6.7 gm/dl (6.0-8.3)
[2023-07-01] MEDS ORDERED: ACETAMINOPHEN 1,000 MG/100 ML VIAL IV STA (14:31)
--- NOTE | 2023-07-01 14:38 | Emergency Department Note ---
Impression & Plan Abdominal pain, Acute urinary retention, Acute UTI (urinary tract infection) ED Provider Note ED Provider Note NAME: SHIRA CUNNINGHAM AGE:78 SEX: Female : 1945 ARRIVES VIA: EMS INFORMANT: Patient, friend ED PROVIDER(s): Maggie Posey DO CHIEF COMPLAINT: Abdominal pain HPI: This is a 78-year-old female presents the emergency department due to concern for abdominal pain and back pain as well as nausea and vomiting. Patient states that it has been going on for a week and a half. She states she has still been having normal bowel movements and has not noticed any change in her urine. She denied fevers or chills. She states she has not had much to eat or drink because it makes her nauseated. She denies any recent black or bloody stools. She denies any blood in the emesis. Patient denied any evaluation of her symptoms. The friend was able to help provide additional information stating that she has had intermittent similar symptoms over the last several months and has previously been inpatient for this. He states she has had obstructions. He states she is a diabetic and her blood sugars have been very high recently. He states she does live by herself. He states he is concerned because she seems more confused and is also had several recent falls. When patient asked the same questions later on in our conversation she then provided different answers. I do not feel the patient is a reliable historian at this time. Friend also states he feels that she is more confused in the last week than she had been previously. He states they were trying to arrange for people to come into her house to help her but it does not seem to be enough. PAST MEDICAL HISTORY:See Below PAST SURGICAL HISTORY:See Below FAMILY HISTORY:See Below SOCIAL HISTORY:See Below HOME MEDICATIONS:See Below ALLERGIES:See Below VITALS:See Below PHYSICAL EXAMINATION: GENERAL: alert, unwell appearing, well nourished, no distress, non-toxic EYE EXAM: normal conjunctiva, PERRL and EOM's grossly intact OROPHARYNX: no exudate, no erythema, lips, buccal mucosa, and tongue normal and mucous membranes are moist NECK: supple, no nuchal rigidity, no adenopathy, non-tender LUNGS: Clear to auscultation. Normal chest wall mechanics, no w/r/r HEART: no murmurs, S1 normal and S2 normal ABDOMEN: abdomen soft, central lower abdominal tenderness with palpation, normo- active bowel sounds, no masses, no rebound or guarding. BACK: Back is symmetrical on inspection and there is no deformity, no midline tenderness, no CVA tenderness. SKIN: no rashes, petechiae, orbruising UPPER EXTREMITIES: upper extremities are grossly normal. FROM, nml pulses b/l. LOWER EXTREMITIES: No pitting edema. FROM, nml pulses b/l. NEURO EXAM: Oriented to person and place, confused to chronology of events and unable to provide much medical history, cranial nerves II-XII grossly intact, normal speech, no facial droop,nogross weakness of arms, no gross weakness of legs. Gross sensation intact. No ataxia. Vital Signs: reviewed and remarkable Differential Diagnosis: gastritis, peptic ulcer disease, GERD, gallbladder disease, pancreatitis, small bowel obstruction, ischemic bowel, irritable bowel syndrome, appendicitis, diverticulitis, malignancy, hernia, urinary tract infection, perforation, trauma, gastroparesis, diverticulitis, as well as others were considered MEDICAL DECISION MAKING: This is a 78-year-old female presents emergency department complaining of lower abdominal pain, low back pain, nausea, after recent inpatient hospitalization and discharged 2 days ago. Patient is a poor historian and does seem confused. Friend who accompanied her helps to provide additional history. Recent hospitalization was also reviewed. Patient initially seen in a waiting room area as she presented on day of high volume and acuity. Patient was afebrile vital signs stable. CT of the abdomen pelvis was ordered after initial labs drawn and sent and IV established. A CT of the head was also added after her friend reported she had had several recent falls additionally. Patient eventually placed in a patient room after returning from CT. CTs resulted and did not show urinary retention. Bladder scan had already been ordered and a Bliss was added. I do have concern for patient's ability to care for herself given she is had many recent falls, seems more confused than normal despite the reported hyperglycemia almost daily, is not taking her medications as prescribed, and seems unable to care for herself. Patient's friend was concerned with her ability to care for herself as well. Case discussed with [facility] hospitalist team for additional evaluation and management. UA pending at the time of our discussion. Consultation(s): 1642: Discussed with MARA Pillai with [facility] hospitalist team, for additional evaluation. ER Treatment Provided: See below Diagnostics Interpreted By Me: -ECG: Normal sinus at 83, normal axis, normal intervals, baseline artifact noted, nonspecific ST/T wave changes -Cardiac Monitoring: An order was placed for continuous cardiac monitoring. The monitor shows a rate of 105 with sinus tachycardia rhythm. -Laboratory studies: As stated above and show below. -Imaging studies: CT head: No obvious ICH Triage Nursing Note Reviewed Prior/Outside Records Reviewed -discharge summary from 06/29/2023 Past Med/Surg History Medical History Acute kidney injury Cervical spinal stenosis Edema Acute neck pain Type 2 diabetes mellitus with chronic kidney disease Hyperosmolar hyperglycemic state (HHS) Hypotension Chest pain Acute hyperglycemia Vomiting Chest pain History of COVID-2020 - resolved COVID Hyperglycemia due to type 2 diabetes mellitus Acute non-ST elevation myocardial infarction (NSTEMI) 11/28/2021 had [place] medical management and follow with dr abdullahi apt 02/09/2022 Folic acid deficiency Vitamin B12 deficiency Asymptomatic bacteriuria Hypotension Back pain Abrasion Elevated troponin Fall Accelerated essential hypertension Elevated troponin Chest pain chronic chest pain and cardiac is negative Dyslipidemia Cervical pain (neck) Chronic pain syndrome Depression Diabetic gastroparesis Diabetic peripheral neuropathy GERD without esophagitis Lumbar spondylosis Mckeon esophagus CAD (coronary artery disease) s/p stents to RCA November 2005; s/p stents to LAD, LCx in January 2006; s/p stents to RCA in 08/2006 IBS (irritable bowel syndrome) Diabetes mellitus, type 2 IDDM Myocardial Infarction [place]- November 2005, January 2006, Aug 2006 3 total within an 8 month span--HX OF CATH [address] [place] [address], FOLLOWS WITH DR. ABDULLAHI Surgical History Status post trigger finger release right thumb S/P coronary artery stent placement s/p stents to RCA November 2005; s/p stents to LAD, LCx in January 2006; s/p stents to RCA in 08/2006 History of total hysterectomy with bilateral salpingo-oophorectomy (BSO) History of lumbar spinal fusion History of total right knee replacement (TKR) History of esophageal dilatation History of colonoscopy with polypectomy History of esophagogastroduodenoscopy (EGD) History of tooth extraction all teeth History of cholecystectomy History of cataract surgery [place] [facility] [place]--s/p stents to RCA November 2005; s/p stents to LAD, LCx in January 2006; s/p stents to RCA in 08/2006 Family History Brother Myocardial infarction Anxiety Heart disease Hypertension Cancer Sister Family history of reaction to anesthesia difficulty waking Hypertension Heart disease Myocardial infarction Anxiety Cancer Diabetes Father Anxiety Heart disease Hypertension Mother Anxiety Hypertension Heart disease Unknown Cancer skin, GI Denies family history of Ovarian cancer Prostate cancer Breast cancer Colorectal cancer Stroke Social History Smoking Status: Former smoker Tobacco Type: Cigarettes Age Started Using Tobacco: 18; Age Quit Using Tobacco: 57; Second Hand Exposure: No; Do You Dip or Chew Tobacco: No; Hx Alcohol Use: No Hx Substance Use: No Preferred Language: Emirati Communication Ability: Effective Visual Impairment: Limited Hearing Ability: Normal Filler Machine Operator Required: No Beliefs That Will Affect Care: None marital status: / Current Living Situation: Alone Current Living Situation Comment: Lives home alone, home care aids for 2 hrs/day current occupational status: retired and disabled How many Children do You have: 3 Feels Safe at Home: Yes Childhood Exposure to Second-Hand Smoke: No caffeine: Yes (drinks coffee, diet pepsi occasionally ) Dental Care, Regularly: No Physical Activity Frequency: Does not Exercise Seatbelt Use: always Sunscreen Use: No Assistive Devices: Cane and Walker Allergies Allergies Allergy/AdvReac Type Severity Reaction Status Date / Time cephalexin Allergy Intermediate Rash and Verified 07/01/23 16:23 itchiness Cephalosporins Allergy Intermediate Rash and Verified 07/01/23 16:23 itchiness Sulfa (Sulfonamide Allergy Intermediate Hives Verified 07/01/23 16:23 Antibiotics) Home Meds Home Medications Medication Instructions Recorded Confirmed aspirin 81 mg tablet,delayed 81 mg PO QAM 10/24/21 07/01/23 release Vitamin B 12 Cypo Value 200+20 1,000 mcg PO DAILY 03/25/23 07/01/23 buspirone 10 mg tablet 10 mg PO TID 03/25/23 07/01/23 famotidine 20 mg tablet 20 mg PO BID 03/25/23 07/01/23 isosorbide mononitrate 30 mg 30 mg PO QAM 03/25/23 07/01/23 tablet,extended release 24 hr ergocalciferol (vitamin D2) 1,250 50,000 unit PO WK 06/18/23 07/01/23 mcg (50,000 unit) capsule folic acid 1 mg tablet 1 mg PO QAM 06/18/23 07/01/23 lidocaine 5 % topical patch 0 patch topical DAILY PRN pain 06/26/23 07/01/23 (Lidoderm) metformin 500 mg tablet 1,000 mg PO BID 06/26/23 07/01/23 acetaminophen 500 mg tablet 1,000 mg PO DIRECTED PRN 07/01/23 07/01/23 (Tylenol Extra Strength) PAIN/FEVER lisinopril 10 mg tablet 10 mg PO QAM 07/01/23 07/01/23 Previous Rx's Medication Instructions Recorded fluticasone fur. 100 mcg-umeclid 1 inh inhalation DAILY #28 ea 02/11/22 62.5 mcg-vilant 25 mcg inhalat.powder (Trelegy Ellipta) ezetimibe 10 mg tablet (Zetia) 10 mg PO QAM #90 tabs 09/18/22 metoprolol succinate 100 mg 100 mg PO QAM #90 tabs 09/18/22 tablet,extended release 24 hr pantoprazole 40 mg tablet,delayed 40 mg PO BID #180 tabs 09/18/22 release rosuvastatin 40 mg tablet 40 mg PO QAM #90 tabs 09/18/22 insulin aspart U-100 100 unit/mL See Rx Instructions .Route 06/24/23 subcutaneous solution (Novolog .COMPLEX #10 mL U-100 Insulin aspart) insulin glargine 100 unit/mL 20 unit (0.2 mL) SC QAM #10 mL 06/24/23 subcutaneous solution (Lantus U-100 Insulin) diclofenac sodium 1 % topical gel 2 g topical QID PRN Pain #100 grams 06/29/23 duloxetine 30 mg capsule,delayed 30 mg PO QAM #90 caps 06/29/23 release tramadol 50 mg tablet 50 mg PO TID PRN pain #20 tabs 06/29/23 Results & Data (ED) Vital Signs Vital Signs - 24 hr 07/01/23 13:01 07/01/23 14:40 07/01/23 16:54 Temperature 36.5 C Temperature Source Temporal Artery Scan Pulse Rate 113 H Pulse Rate [Finger] 70 76 Pulse Rhythm Regular Respiratory Rate 20 16 18 Respiratory Effort / Characteristics Non-Labored Spontaneous Non-Labored Spontaneous Non-Labored Spontaneous Respiratory Depth Normal Normal Normal Respiratory Pattern Regular Blood Pressure 103/64 Blood Pressure [Right Arm] 106/58 L 106/58 L Blood Pressure Mean 77 Blood Pressure Mean [Right Arm] 74 74 Pulse Oximetry 97 98 96 Oxygen Delivery Method Room Air Room Air Room Air Sepsis Recent Fever Within 48 Hours No Sepsis New/Unexplained Change in Mental Status No Sepsis Action Taken by Nursing No Action Required Laboratory Data 07/01/23 13:11 07/01/23 13:11 Lab Results 07/01/23 07/01/23 07/01/23 Range/Units 13:11 16:44 17:04 WBC 8.31 (4.8-10.8) K/ul RBC 4.94 (4.20-5.40) M/uL Hgb 13.5 (12.0-16.0) g/dl Hct 40.7 (37.0-47.0) % MCV 82.4 (80.0-100.0) fL MCH 27.3 (25.0-34.0) pg MCHC 33.2 (32.0-36.0) g/dL RDW Std Deviation 45.6 (36.4-46.3) fL RDW Coeff of Tino 15.1 H (11.5-14.5) % Plt Count 249 (130-400) K/uL MPV 9.8 (9.4-12.4) fL Immature Gran % (Auto) 1.0 % Neut % (Auto) 82.0 % Lymph % (Auto) 12.6 % Cost[place] % (Auto) 4.0 % Eos % (Auto) 0.2 % Baso % (Auto) 0.2 % Neut # (Auto) 6.81 H (1.40-6.50) K/uL Lymph # (Auto) 1.05 L (1.20-3.40) K/uL [place] # (Auto) 0.33 (0.11-0.59) K/uL Eos # (Auto) 0.02 (0.00-0.50) K/uL Baso # (Auto) 0.02 (0.00-0.20) K/uL Immature Gran # (Auto) 0.08 (0.01-0.20) K/uL Sodium 135 L (136-145) mmol/L Potassium 3.8 (3.5-5.1) mmol/L Chloride 102 (98-107) mmol/L Carbon Dioxide 25 (21-32) mmol/L Anion Gap 8 (3-11) BUN 20 (6-23) mg/dl Creatinine 1.14 (0.6-1.2) mg/dl Est Cr Clr Drug Dosing Not Reportable Est GFR ( Amer) 54.1 ml/min Est GFR (Non-Af Amer) 46.7 ml/min BUN/Creatinine Ratio 17.5 (10-20) Glucose 54 L (70-99(Fasting)) mg/dl POC Glucose 49 L* 190 H (70-99) mg/dl Lactate 2.5 H* (0.4-2.0) mmol/L Calcium 9.4 (8.6-10.3) mg/dl Total Bilirubin 0.7 (0.2-1.0) mg/dl AST 41 H (13-39) U/L ALT 140 H (7-52) U/L Alkaline Phosphatase 240 H (34-104) U/L Total Creatine Kinase 14 L (26-192) U/L Total Protein 6.7 (6.0-8.3) gm/dl Albumin 3.5 (3.4-5.0) gm/dl Globulin 3.2 (2.5-4.0) gm/dl Albumin/Globulin Ratio 1.1 (0.9-2) Lipase 6 L (11-82) U/L Procalcitonin Cancelled 07/01/23 Range/Units 17:16 WBC (4.8-10.8) K/ul RBC (4.20-5.40) M/uL Hgb (12.0-16.0) g/dl Hct (37.0-47.0) % MCV (80.0-100.0) fL MCH (25.0-34.0) pg MCHC (32.0-36.0) g/dL RDW Std Deviation (36.4-46.3) fL RDW Coeff of Tino (11.5-14.5) % Plt Count (130-400) K/uL MPV (9.4-12.4) fL Immature Gran % (Auto) % Neut % (Auto) % Lymph % (Auto) % [place] % (Auto) % Eos % (Auto) % Baso % (Auto) % Neut # (Auto) (1.40-6.50) K/uL Lymph # (Auto) (1.20-3.40) K/uL Cost[place] # (Auto) (0.11-0.59) K/uL Eos # (Auto) (0.00-0.50) K/uL Baso # (Auto) (0.00-0.20) K/uL Immature Gran # (Auto) (0.01-0.20) K/uL Sodium (136-145) mmol/L Potassium (3.5-5.1) mmol/L Chloride (98-107) mmol/L Carbon Dioxide (21-32) mmol/L Anion Gap (3-11) BUN (6-23) mg/dl Creatinine (0.6-1.2) mg/dl Est Cr Clr Drug Dosing Est GFR ( Amer) ml/min Est GFR (Non-Af Amer) ml/min BUN/Creatinine Ratio (10-20) Glucose (70-99(Fasting)) mg/dl POC Glucose (70-99) mg/dl Lactate 2.5 H* (0.4-2.0) mmol/L Calcium (8.6-10.3) mg/dl Total Bilirubin (0.2-1.0) mg/dl AST (13-39) U/L ALT (7-52) U/L Alkaline Phosphatase (34-104) U/L Total Creatine Kinase (26-192) U/L Total Protein (6.0-8.3) gm/dl Albumin (3.4-5.0) gm/dl Globulin (2.5-4.0) gm/dl Albumin/Globulin Ratio (0.9-2) Lipase (11-82) U/L Procalcitonin 4.45 H Administered Medications Buspirone HCl (Buspirone 5 Mg Tab) 10 mg PO TID LEON Stop: 07/31/23 21:32 Last Admin: 07/01/23 22:26 Dose: 10 mg Documented By: RES Docusate Sodium (Docusate Sodium 100 Mg Cap) 100 mg PO BID LEON Stop: 07/31/23 20:59 Last Admin: 07/01/23 22:15 Dose: 100 mg Documented By: MARK Famotidine (Famotidine 20 Mg Tab) 20 mg PO BID LEON Stop: 07/31/23 21:32 Last Admin: 07/01/23 22:27 Dose: 20 mg Documented By: MARK Dextrose (D5w) 500 mls @ 80 mls/hr IV .Q6H15M LEON Stop: 07/02/23 08:59 Last Admin: 07/01/23 22:10 Dose: 80 mls/hr Documented By: MARK Insulin Aspart (Insulin Aspart Per Unit Charge) 0 units SC Q6H LEON Stop: 07/31/23 18:29 Last Admin: 07/01/23 20:32 Dose: Not Given Documented By: ELVIA Pantoprazole Sodium (Pantoprazole 40 Mg Tab) 40 mg PO BID LEON Stop: 07/31/23 21:32 Last Admin: 07/01/23 22:27 Dose: 40 mg Documented By: MARK Polyethylene Glycol (Polyethylene (Miralax) 17 Gm Pack) 17 gm PO BID LEON Stop: 07/31/23 20:59 Last Admin: 07/01/23 22:15 Dose: 17 gm Documented By: MARK Discontinued Medications Ceftriaxone Sodium (Ceftriaxone Sodium 2000mg/50ml D5w) Confirm Administered Dose 2,000 mg IV .STK-MED ONE Stop: 07/01/23 20:25 Last Admin: 07/01/23 22:14 Dose: Not Given Documented By: MARK Dextrose (Dextrose 50% 50 Ml Syringe) Confirm Administered Dose 50 ml IV .STK- MED ONE Stop: 07/01/23 16:46 Last Admin: 07/01/23 16:45 Dose: 50 ml Documented By: ELVIA Sodium Chloride (Nss) 1,000 mls @ 125 mls/hr IV .Q8H LEON Stop: 07/31/23 14:44 Last Infusion: 07/01/23 21:42 Dose: Infused Documented By: Admin: 07/01/23 15:49 Dose: 125 mls/hr Documented By: ELVIA Acetaminophen (Ofirmev) 1,000 mg in 100 mls @ 400 mls/hr IV NOW STA Stop: 07/01/23 14:45 Last Infusion: 07/01/23 16:30 Dose: Infused Documented By: Admin: 07/01/23 15:49 Dose: 400 mls/hr Documented By: ELVIA Pantoprazole Sodium 40 mg/ (Syringe) 10 mls @ 5 mls/min IV NOW ONE Stop: 07/01/23 16:39 Last Admin: 07/01/23 18:33 Dose: 5 mls/min Documented By: DONITA Lactated Ringer's (Lr) 1,000 mls @ 999 mls/hr IV .Q1H1M ONE Stop: 07/01/23 19:07 Last Infusion: 07/01/23 21:42 Dose: Infused Documented By: Infusion: 07/01/23 18:46 Dose: 0 mls/hr Documented By: Admin: 07/01/23 18:33 Dose: 999 mls/hr Documented By: DONITA Dextrose (D5w) 1,000 mls @ 80 mls/hr IV .[id number] LEON Stop: 07/02/23 19:59 Last Admin: 07/01/23 21:40 Dose: Not Given Documented By: MARK Ceftriaxone Sodium 2,000 mg/ (Dextrose) 50 mls @ 100 mls/hr IV NOW STA; Protocol Stop: 07/01/23 20:56 Last Infusion: 07/01/23 22:55 Dose: Infused Documented By: Admin: 07/01/23 22:14 Dose: 100 mls/hr Documented By: MARK Ioversol (Optiray 320 100ml) 89 ml IV ONCE ONE Stop: 07/01/23 15:13 Last Admin: 07/01/23 15:14 Dose: 89 ml Documented By: JIGNESH Metoclopramide HCl (Metoclopramide Hcl Inj 5 Mg/Ml 2 Ml Vial) 5 mg IV ONE ONE Stop: 07/01/23 15:17 Last Admin: 07/01/23 15:49 Dose: 5 mg Documented By: ELVIA Ondansetron HCl (Ondansetron Inj 2 Mg/Ml 2 Ml Vial) 4 mg IV NOW STA Stop: 07/01/23 13:06 Last Admin: 07/01/23 13:11 Dose: 4 mg Documented By: TW Imaging Data Radiologist's Impression: Abdomen/Pelvis CT 07/01/23 13:[address] WITH IV CONTRAST CT DOSE: 2149.46 mGy.cm HISTORY: Abd pain, s/p abd surgery TECHNIQUE: Multiaxial CT images of the abdomen and pelvis were performed following the use of intravenous contrast. A dose lowering technique was utilized adhering to the principles of ALARA. COMPARISON STUDY: Abdomen and pelvis CT 06/26/2023. FINDINGS: The large amount of stool within the rectum has significantly improved in the interval. There is a small amount of liquid stool remaining. However, there is been interval development of moderate circumferential thickening of the rectum with perirectal fat stranding/edema. This is consistent with a nonspecific proctitis. No pneumoperitoneum or pneumatosis identified. Question mild thickening of the sigmoid colon may be due to underdistention. There is moderate stool remaining within the colon which is similar to the prior study. No dilated loops of small bowel identified. Mildly distended and fluid-filled distal esophagus. There is a small hiatus hernia. There is mild thickening of the distal esophagus. The stomach is fluid-filled but nondistended. There is mild body wall edema. The bladder remains severely distended. The bladder contains a small amount of gas. This could be due to recent catheterization. Prior hysterectomy. Mild fullness within the bilateral renal collecting systems persists. This may be due to the distended bladder. A few subcentimeter hypodense lesions within the kidneys are too small to characterize but statistically represent cysts. No retroperitoneal or pelvic lymphadenopathy. Trace perihepatic ascites is noted. Otherwise, the liver, spleen, adrenal glands, and pancreas are unremarkable. Prior cholecystectomy. This likely accounts for the prominent common bile duct which remains unchanged. The main portal vein is patent. No retroperitoneal lymphadenopathy. Calcified plaque within the normal caliber abdominal aorta. The lung bases are clear. No acute fractures identified. IMPRESSION: 1. The large amount of stool within the rectum has significantly improved in the interval. There is a small amount of liquid stool remaining. However, there is been interval development of moderate circumferential thickening of the rectum with perirectal fat stranding/edema. This is consistent with a nonspecific proctitis. 2. Mild bilateral hydronephrosis again noted. This is likely related to the bladder distention. There is gas within the bladder which could be due to recent catheterization. Clinical correlation recommended. 3. Mild thickening and mild distention of the distal esophagus which is fluid- filled. This favors a nonspecific esophagitis. 4. Additional findings as described above. ACT 112: Negative or not required by law. Electronically signed by: Vijay Vega M.D. 07/01/2023 4:[address] 07/01/23 14:32 CT OF THE HEAD WITHOUT CONTRAST CLINICAL HISTORY: Trauma. COMPARISON STUDY: Head CT June 19, 2023. MRI of the brain October 31, 2018. TECHNIQUE: Helical axial images of the head were obtained without IV contrast. Automated exposure control was utilized for the study. A dose lowering technique was utilized adhering to the principles of ALARA. FINDINGS: No acute intracranial hemorrhage, midline shift or mass effect is present. The ventricular system is unremarkable. The basal cisterns are patent. No extra-axial collections are present. There are no findings to suggest acute dural sinus thrombosis or acute territorial infarct. There is no acute calvarial fracture. Small amount of fluid within the right mastoid air cells is unchanged. IMPRESSION: 1. No acute intracranial findings. 2. No acute calvarial fracture. ACT 112: Negative or not required by law. Electronically signed by: Jimmy Chavarria M.D. 07/01/2023 3:44 PM Discharge Plan Visit Data Chief Complaint: Abdominal Pain Stated Complaint: AB PAIN ED Provider: Maggie Posey Discharge Problem: Abdominal pain, Acute urinary retention, Acute UTI (urinary tract infection) Patient Disposition: Admitted As Inpatient Discharge Instructions Interventions: ED Discharge Assessment Last Done: 07/01/23 21:22
[2023-07-01] MEDS ORDERED: SODIUM CHLORIDE 0.9% 1,000 ML IV SCH (14:45)
[2023-07-01] MEDS ORDERED: OPTIRAY 320 100ml IV ONE (15:12)
[2023-07-01] MEDS ORDERED: METOCLOPRAMIDE HCL INJ 5 MG/ML 2 ML VIAL IV ONE (15:16)
--- NOTE | 2023-07-01 15:46 | CT Scan Report ---
CT OF THE HEAD WITHOUT CONTRAST CLINICAL HISTORY: Trauma. COMPARISON STUDY: Head CT June 19, 2023. MRI of the brain October 31, 2018. TECHNIQUE: Helical axial images of the head were obtained without IV contrast. Automated exposure con trol was utilized for the study. A dose lowering technique was utilized adhering to the principles o f ALARA. FINDINGS: No acute intracranial hemorrhage, midline shift or mass effect is present. The ventricular system is unremarkable. The basal cisterns are patent. No extra-axial collections are present. There are no findings to suggest acute dural sinus thrombosis or acute territorial infarct. There is no acu te calvarial fracture. Small amount of fluid within the right mastoid air cells is unchanged. IMPRESSION: 1. No acute intracranial findings. 2. No acute calvarial fracture. ACT 112: Negative or not required by law. Electronically signed by: Jimmy Chavarria M.D. 07/01/2023 3:44 PM
--- NOTE | 2023-07-01 16:04 | CT Scan Report ---
ABDOMEN AND PELVIS CT WITH IV CONTRAST CT DOSE: 2149.46 mGy.cm HISTORY: Abd pain, s/p abd surgery TECHNIQUE: Multiaxial CT images of the abdomen and pelvis were performed following the use of intrave nous contrast. A dose lowering technique was utilized adhering to the principles of ALARA. COMPARISON STUDY: Abdomen and pelvis CT 06/26/2023. FINDINGS: The large amount of stool within the rectum has significantly improved in the interval. The re is a small amount of liquid stool remaining. However, there is been interval development of modera te circumferential thickening of the rectum with perirectal fat stranding/edema. This is consistent w ith a nonspecific proctitis. No pneumoperitoneum or pneumatosis identified. Question mild thickening of the sigmoid colon may be due to underdistention. There is moderate stool remaining within the colo n which is similar to the prior study. No dilated loops of small bowel identified. Mildly distended a nd fluid-filled distal esophagus. There is a small hiatus hernia. There is mild thickening of the dis dale esophagus. The stomach is fluid-filled but nondistended. There is mild body wall edema. The bladd er remains severely distended. The bladder contains a small amount of gas. This could be due to recen t catheterization. Prior hysterectomy. Mild fullness within the bilateral renal collecting systems pe rsists. This may be due to the distended bladder. A few subcentimeter hypodense lesions within the ki dneys are too small to characterize but statistically represent cysts. No retroperitoneal or pelvic l ymphadenopathy. Trace perihepatic ascites is noted. Otherwise, the liver, spleen, adrenal glands, and pancreas are unremarkable. Prior cholecystectomy. This likely accounts for the prominent common bile duct which remains unchanged. The main portal vein is patent. No retroperitoneal lymphadenopathy. Ca lcified plaque within the normal caliber abdominal aorta. The lung bases are clear. No acute fracture s identified. IMPRESSION: 1. The large amount of stool within the rectum has significantly improved in the interval. There is a small amount of liquid stool remaining. However, there is been interval development of moderate circ umferential thickening of the rectum with perirectal fat stranding/edema. This is consistent with a n onspecific proctitis. 2. Mild bilateral hydronephrosis again noted. This is likely related to the bladder distention. There is gas within the bladder which could be due to recent catheterization. Clinical correlation recomme nded. 3. Mild thickening and mild distention of the distal esophagus which is fluid-filled. This favors a n onspecific esophagitis. 4. Additional findings as described above. ACT 112: Negative or not required by law. Electronically signed by: Vijay Vega M.D. 07/01/2023 4:03 PM
--- NOTE | 2023-07-01 16:33 | History & Physical Report ---
Date of Service July 01, 2023 Assessment & Plan (1) Fall: Plan: -Admit to med/tele -Current stable -Patient sustained a fall out of bed the night of 06/29 (same day as last DC) -Denies recent chest pain, heart palpitations, SOB -ECG computer read notes possible ST segment depression in the anterolateral leads >Does not appear significant on my review at this time >Patient has been asymptomatic >Continue to monitor on tele for now -Denies hitting head but complaining of significant right proximal thigh pain -No obvious trauma on exam but pain with palpation -Will obtain xrays of the right hip/femur for further evaluation -Will obtain chest xray as well because of recent fall -Fall precautions ordered -Patient is unable to safely care for herself at this time and lives alone; PT/OT/CM consults placed -Will hold chemical DVT PPX until imaging is back, BL GHISLAINE's for now -HH/DMII diet -AM CBC, CMP, mag, PT/INR (2) Elevated LFTs: Plan: -AST of 41, ALT of 140, Alk phos of 240 -CK is WNL, patient denies alcohol use -After further discussions regarding tylenol dosing, she has not been taking more than 4gm in 24 hours -Could possibly be related to recent hypotension with poor oral intake, continued antihypertensive use, and soft BP's on arrival to the ED -Could also be related to congestive hepatopathy with recurrent urinary retention requiring ramirez placement in the ED -No acute findings of the liver on CT of the abd/pelvis today -Continue to trend daily CMP for now -Avoid nephrotoxic agents (3) Hypoglycemia: Plan: -Noted to be hypoglycemic at 49 at the time of admission -Now stable S/P one amp of Dextrose in the ED -Likely due to poor oral intake and continued basal/bolus insulin + metformin use at home -Patient's BSG back down in the 70's on continued monitoring, will start D5W drip overnight to prevent recurrent hypoglycemia -Monitor BSG q6h overnight, goal is 110-140 -Will hold basal insulin and metformin for now, CF of 50 to start -Adjust regimen as needed (4) Lactate blood increase: Plan: -Lactated elevated at 2.5, still at 2.5 on 2 hour repeat -Patient received 1L NSS in the ED -Likely related to dehydration from poor oral intake and continued antihypertensive use -Patient's vitals are stable, she is non-toxic appearing -Will continue infectious workup with UA and chest xray, will start abx as needed -Will monitor repeat lactate tonight to ensure she is heading in the right direction (5) Elevated procalcitonin: Plan: -Procal ordered in triage is noted to be elevated at 4.45 -The patient is stable and non-toxic appearing -CT of the abd/pelvis shows improving constipation/stercoral colitis and possible proctitis today -UA has now been collected and will be sent to the lab shortly -No significant abdominal symptoms, they have been improving since last admission per patient -Chest xray ordered, will follow up -She is without a leukocytosis and has been afebrile, will hold abx at this time until the rest of her workup is back -Will obtain am procal to continue monitoring -Holding lisinopril for now with soft BP on arrival (6) Proctitis: Plan: -Noted on CT of the abd/pelvis today -Patient's symptoms have been improving since last admission -No recent diarrhea -Likely related to her chronic constipation -Will start BID colace and miralax for now -Monitor for consistent, soft BM's (7) Abdominal pain: Plan: -Likely due to both her chronic constipation and significant urinary retention on arrival -Pain has improved since ramirez placement (8) Urinary retention: Plan: -Recurrent; also noted on last admission -Ramirez cath placed in the ED with approximately 1L UOP after placement -CT of the abd/pelvis showed mild BL hydronephrosis, likely due to significant bladder distention prior to Ramirez placement -Renal function is stable -Could be due to neurogenic bladder 2/2 uncontrolled DMII -Continue ramirez cath for now, should do voiding trial prior to discharge with Urology consult if she continues to retain (9) Right leg pain: Plan: -Pain in the proximal femur/right hip on exam -Likely related to her recent fall -Will FU on xrays ordered on admission (10) CAD (coronary artery disease): Plan: -Continue aspirin (11) Mckeon esophagus: Plan: -Continue pantoprazole and famotidine Plan The patient was discussed with Dr. Archer at the time of the admission History of Present Illness Chief Complaint: abd pain, constipation, poor oral intake Primary Care Provider: MARA Woodall is a 78-year-old female with PMH of bowel obstruction, HTN, cervical radiculopathy, IBS, CAD, anxiety, depression, Mckeon's esophagus, T2DM, lumbar spondylosis, diabetic gastroparesis, CKD stage III, and constipation who presented to the [facility] ED on 07/01 with her daughter and her significant other for ongoing low bad/back pain and inability to care for herself at home. The patient was recently admitted to [facility] from 06/18-06/24 for constipation, hyperkalemia, urinary retention, and SHERRIE on CKD. She was noted to have a large stool ball in the rectum and concern for stercoral colitis, as well as BL hydronephrosis on CT of the abd/pelvis. She was started on a heavy bowel r egimen, she ws noted to be having soft stool at the time of discharge. She had a ramirez catheter placed at the time of admission with improvement of urine output and renal function at the time of discharge. Her Ramirez catheter was removed prior to discharge. Her hyperkalemia improved with initiation of ramirez catheter, improvement in renal function, and one dose of patiromer. The patient had been staying at [facility] prior to last admission and requested to be discharged home at the time of last admission. At the time of the exam the patient was lying in bed in no acute distress with her significant other and daughter sitting bedside, history was obtained from all. At the beginning of my exam the patient was pale and lethargic. Evaluation of beside BSG showed a glucose of 49. She was given an amp of dextrose with improvement in color and cognition. Since discharge home on 06/29 the patient has had a quick clinical decline. She and her daughter state that the patient fell out of bed the first night home, she was on the ground overnight until they found her the next morning. She has had very poor oral intake over this time. She states that she is still experiencing lower abdominal/low back pain. She confirms that this is the same pain as her last admission but improved. She had one loose BM this am but denies significant diarrhea. She was using tylenol at home for pain. She has been taking 2, 500 mg Tablets, q4h, over the past 48 hours. She denies recent alcohol use. She was unable to eat anything this am prompting her family to call EMS to have her evaluated. She is currently living by herself. Family and her significant other check on her when they can. She previously had 5 hours of home health a week, but her home health nurse left the company and they do not have a replacement at this time. I explained that the ideal situation is to eventually discharge her home with home health, however, she has clearly proven that she is unable to care for herself at this time. I explained that she may need placement if home health canno be established, she and her family expressed understanding. She denies recent fever, chest pain, SOB, nausea, vomiting, dysuria, hematuria, melena, bloody BM's, and LE swelling. She wishes to be a DNR/DNI and would want her daughter, Elizabeth, to make medical decisions for her if she cannot make them herself. Please refer to Dr. Archer's attestation for any changes to the treatment plan Allergies Allergy/AdvReac Type Severity Reaction Status Date / Time cephalexin Allergy Intermediate Rash and Verified 07/01/23 16:23 itchiness Cephalosporins Allergy Intermediate Rash and Verified 07/01/23 16:23 itchiness Sulfa (Sulfonamide Allergy Intermediate Hives Verified 07/01/23 16:23 Antibiotics) Home Medications Medication Instructions Recorded Confirmed Type aspirin 81 mg tablet,delayed 81 mg PO QAM 10/24/21 07/01/23 History release fluticasone fur. 100 mcg-umeclid 1 inh inhalation DAILY #28 ea 02/11/22 07/01/23 Rx 62.5 mcg-vilant 25 mcg inhalat.powder (Trelegy Ellipta) ezetimibe 10 mg tablet (Zetia) 10 mg PO QAM #90 tabs 09/18/22 07/01/23 Rx metoprolol succinate 100 mg 100 mg PO QAM #90 tabs 09/18/22 07/01/23 Rx tablet,extended release 24 hr pantoprazole 40 mg tablet,delayed 40 mg PO BID #180 tabs 09/18/22 07/01/23 Rx release rosuvastatin 40 mg tablet 40 mg PO QAM #90 tabs 09/18/22 07/01/23 Rx Vitamin B 12 Cypo Value 200+20 1,000 mcg PO DAILY 03/25/23 07/01/23 History buspirone 10 mg tablet 10 mg PO TID 03/25/23 07/01/23 History famotidine 20 mg tablet 20 mg PO BID 03/25/23 07/01/23 History isosorbide mononitrate 30 mg 30 mg PO QAM 03/25/23 07/01/23 History tablet,extended release 24 hr ergocalciferol (vitamin D2) 1,250 50,000 unit PO WK 06/18/23 07/01/23 History mcg (50,000 unit) capsule folic acid 1 mg tablet 1 mg PO QAM 06/18/23 07/01/23 History insulin aspart U-100 100 unit/mL See Rx Instructions .Route 06/24/23 07/01/23 Rx subcutaneous solution (Novolog .COMPLEX #10 mL U-100 Insulin aspart) insulin glargine 100 unit/mL 20 unit (0.2 mL) SC QAM #10 mL 06/24/23 07/01/23 Rx subcutaneous solution (Lantus U-100 Insulin) lidocaine 5 % topical patch 0 patch topical DAILY PRN pain 06/26/23 07/01/23 History (Lidoderm) metformin 500 mg tablet 1,000 mg PO BID 06/26/23 07/01/23 History diclofenac sodium 1 % topical gel 2 g topical QID PRN Pain #100 grams 06/29/23 07/01/23 Rx duloxetine 30 mg capsule,delayed 30 mg PO QAM #90 caps 06/29/23 07/01/23 Rx release tramadol 50 mg tablet 50 mg PO TID PRN pain #20 tabs 06/29/23 07/01/23 Rx acetaminophen 500 mg tablet 1,000 mg PO DIRECTED PRN 07/01/23 07/01/23 History (Tylenol Extra Strength) PAIN/FEVER lisinopril 10 mg tablet 10 mg PO QAM 07/01/23 07/01/23 History Past Med/Surg History Medical History Acute kidney injury Cervical spinal stenosis Edema Acute neck pain Type 2 diabetes mellitus with chronic kidney disease Hyperosmolar hyperglycemic state (HHS) Hypotension Chest pain Acute hyperglycemia Vomiting Chest pain History of COVID-19 2020 - resolved COVID Hyperglycemia due to type 2 diabetes mellitus Acute non-ST elevation myocardial infarction (NSTEMI) 11/28/2021 had [place] medical management and follow with dr kaylen jeter 02/09/2022 Folic acid deficiency Vitamin B12 deficiency Asymptomatic bacteriuria Hypotension Back pain Abrasion Elevated troponin Fall Accelerated essential hypertension Elevated troponin Chest pain chronic chest pain and cardiac is negative Dyslipidemia Cervical pain (neck) Chronic pain syndrome Depression Diabetic gastroparesis Diabetic peripheral neuropathy GERD without esophagitis Lumbar spondylosis Mckeon esophagus CAD (coronary artery disease) s/p stents to RCA November 2005; s/p stents to LAD, LCx in January 2006; s/p stents to RCA in 08/2006 IBS (irritable bowel syndrome) Diabetes mellitus, type 2 IDDM Myocardial Infarction IA- November 2005, January 2006, Aug 2006 3 total within an 8 month span--HX OF CATH 2012 [facility] [place], FOLLOWS WITH DR. JULES Surgical History Status post trigger finger release right thumb S/P coronary artery stent placement s/p stents to RCA November 2005; s/p stents to LAD, LCx in January 2006; s/p stents to RCA in 08/2006 History of total hysterectomy with bilateral salpingo-oophorectomy (BSO) History of lumbar spinal fusion History of total right knee replacement (TKR) History of esophageal dilatation History of colonoscopy with polypectomy History of esophagogastroduodenoscopy (EGD) History of tooth extraction all teeth History of cholecystectomy History of cataract surgery BL History of cardiac cath last 2012 @ [facility] [place], no stents--s/p stents to RCA November 2005; s/p stents to LAD, LCx in January 2006; s/p stents to RCA in 08/2006 Family History Brother Myocardial infarction Anxiety Heart disease Hypertension Cancer Sister Family history of reaction to anesthesia difficulty waking Hypertension Heart disease Myocardial infarction Anxiety Cancer Diabetes Father Anxiety Heart disease Hypertension Mother Anxiety Hypertension Heart disease Unknown Cancer skin, GI Denies family history of Ovarian cancer Prostate cancer Breast cancer Colorectal cancer Stroke Social History Smoking Status: Never smoker Tobacco Type: Cigarettes Age Started Using Tobacco: 18; Age Quit Using Tobacco: 57; Second Hand Exposure: No; Do You Dip or Chew Tobacco: No; Tobacco Cessation Education Requested by Patient: No Hx Alcohol Use: No Hx Substance Use: No Preferred Language: Maori Communication Ability: Effective Visual Impairment: Limited Hearing Ability: Normal Otr Truck Driver Required: No Beliefs That Will Affect Care: None marital status: / Current Living Situation: Alone Current Living Situation Comment: Lives home alone. Care givers (home health aides) come for 2 hours a day. current occupational status: retired and disabled How many Children do You have: 3 Other Information That Helps Us Care for You: No Feels Safe at Home: Yes Safety Concerns: Feels Safe At This Time Childhood Exposure to Second-Hand Smoke: No caffeine: Yes (drinks coffee, diet pepsi occasionally ) Dental Care, Regularly: No Physical Activity Frequency: Does not Exercise Seatbelt Use: always Sunscreen Use: No Assistive Devices: Cane, Denture - Upper, Glasses, Hospital Bed and Walker Physical Exam Physical Exam: Physical Exam: General: In no acute distress, stated age, chronically ill appearing but non- toxic HEENT: Normocephalic, atraumatic, no scleral icterus, pupils around round, symmetrical, and reactive to light, moist mucus membranes, trachea midline, no thyromegaly Chest/Pulm: No respiratory distress, symmetrical chest expansion, clear breath sounds throughout Cardiac: RRR, no murmurs noted Abdomen: Negative for ascites and bruising, normoactive bowel sounds, soft, minimally tender to palpation in the suprapubic region Musculoskeletal: Patient with significant pain with palpation and flexion of the left proximal femur/hip, no bruising or focal trauma on inspection of the area, able to flex right knee with pain exacerbated in the right femur/hip, otherwise no trauma noted on inspection and palpation Extremities: Radial, dorsalis pedis, and posterior tibial pulses are intact and symmetrical, no edema noted in the BL LE's Skin: Warm, dry, no rashes , lesions, or scars noted Neuro: Alert and oriented to person, place, month, year, no focal defects, CN II-XII tested and intact, no tremors noted Psych: No acute distress, calm and cooperative during the exam Results & Data Results & Data Vital Signs (Past 12 Hours) Vital Signs Temp Pulse Resp BP Pulse Ox O2 Del Method 07/01/23 13:01 36.5 C 113 H 20 103/64 97 Room Air Laboratory Results Abnormal lab results 07/01/23 07/01/23 07/01/23 Range/Units 13:11 16:44 17:04 RDW Coeff of Tino 15.1 H (11.5-14.5) % Neut # (Auto) 6.81 H (1.40-6.50) K/uL Lymph # (Auto) 1.05 L (1.20-3.40) K/uL Sodium 135 L (136-145) mmol/L Glucose 54 L (70-99(Fasting)) mg/dl POC Glucose 49 L* 190 H (70-99) mg/dl Lactate 2.5 H* (0.4-2.0) mmol/L AST 41 H (13-39) U/L ALT 140 H (7-52) U/L Alkaline Phosphatase 240 H (34-104) U/L Total Creatine Kinase 14 L (26-192) U/L Lipase 6 L (11-82) U/L 07/01/23 Range/Units 17:16 RDW Coeff of Tino (11.5-14.5) % Neut # (Auto) (1.40-6.50) K/uL Lymph # (Auto) (1.20-3.40) K/uL Sodium (136-145) mmol/L Glucose (70-99(Fasting)) mg/dl POC Glucose (70-99) mg/dl Lactate 2.5 H* (0.4-2.0) mmol/L AST (13-39) U/L ALT (7-52) U/L Alkaline Phosphatase (34-104) U/L Total Creatine Kinase (26-192) U/L Lipase (11-82) U/L Diagnostic Findings Abdomen/Pelvis CT 07/01/23 13:[address] WITH IV CONTRAST CT DOSE: 2149.46 mGy.cm HISTORY: Abd pain, s/p abd surgery TECHNIQUE: Multiaxial CT images of the abdomen and pelvis were performed following the use of intravenous contrast. A dose lowering technique was utilized adhering to the principles of ALARA. COMPARISON STUDY: Abdomen and pelvis CT 06/26/2023. FINDINGS: The large amount of stool within the rectum has significantly improved in the interval. There is a small amount of liquid stool remaining. However, there is been interval development of moderate circumferential thickening of the rectum with perirectal fat stranding/edema. This is consistent with a nonspecific proctitis. No pneumoperitoneum or pneumatosis identified. Question mild thickening of the sigmoid colon may be due to underdistention. There is moderate stool remaining within the colon which is similar to the prior study. No dilated loops of small bowel identified. Mildly distended and fluid-filled distal esophagus. There is a small hiatus hernia. There is mild thickening of the distal esophagus. The stomach is fluid-filled but nondistended. There is mild body wall edema. The bladder remains severely distended. The bladder contains a small amount of gas. This could be due to recent catheterization. Prior hysterectomy. Mild fullness within the bilateral renal collecting systems persists. This may be due to the distended bladder. A few subcentimeter hypodense lesions within the kidneys are too small to characterize but statistically represent cysts. No retroperitoneal or pelvic lymphadenopathy. Trace perihepatic ascites is noted. Otherwise, the liver, spleen, adrenal glands, and pancreas are unremarkable. Prior cholecystectomy. This likely accounts for the prominent common bile duct which remains unchanged. The main portal vein is patent. No retroperitoneal lymphadenopathy. Calcified plaque within the normal caliber abdominal aorta. The lung bases are clear. No acute fractures identified. IMPRESSION: 1. The large amount of stool within the rectum has significantly improved in the interval. There is a small amount of liquid stool remaining. However, there is been interval development of moderate circumferential thickening of the rectum with perirectal fat stranding/edema. This is consistent with a nonspecific proctitis. 2. Mild bilateral hydronephrosis again noted. This is likely related to the bladder distention. There is gas within the bladder which could be due to recent catheterization. Clinical correlation recommended. 3. Mild thickening and mild distention of the distal esophagus which is fluid- filled. This favors a nonspecific esophagitis. 4. Additional findings as described above. ACT 112: Negative or not required by law. Electronically signed by: Vijay Vega M.D. 07/01/2023 4:[address] 07/01/23 14:32 CT OF THE HEAD WITHOUT CONTRAST CLINICAL HISTORY: Trauma. COMPARISON STUDY: Head CT June 19, 2023. MRI of the brain October 31, 2018. TECHNIQUE: Helical axial images of the head were obtained without IV contrast. Automated exposure control was utilized for the study. A dose lowering technique was utilized adhering to the principles of ALARA. FINDINGS: No acute intracranial hemorrhage, midline shift or mass effect is present. The ventricular system is unremarkable. The basal cisterns are patent. No extra-axial collections are present. There are no findings to suggest acute dural sinus thrombosis or acute territorial infarct. There is no acute calvarial fracture. Small amount of fluid within the right mastoid air cells is unchanged. IMPRESSION: 1. No acute intracranial findings. 2. No acute calvarial fracture. ACT 112: Negative or not required by law. Electronically signed by: Jimmy Chavarria M.D. 07/01/2023 3:44 PM ECG Additional Comments: Normal sinus rhythm Nonspecific ST and T wave abnormality Abnormal ECG When compared with ECG of 26-JUN-2023 10:09, Nonspecific T wave abnormality now evident in Inferior leads Nonspecific T wave abnormality, worse in Lateral leads Code Status & VTE Plan Code Status DNR/DNI VTE Prophylaxis Plan VTE Prophylaxis will be ordered: Yes Supervising Physician Co-Signing Physician Notes I personally saw and examined the patient. I verified all hathaway points and agree with Rosas Jurado PA-C with the following exceptions and/or additions: 78 year old female presents to the ER with multiple falls after recent discharge home (previously in [facility]). Patient appears much improved after dextrose given. O/E A&Ox3, HS RRR, no murmurs, Chest CTAB, Abdo SNT, no CVA tenderness, no leg pain on int/ext rotation of hip, no areas of cellulitis noted A/P Fall - suspect multifactorial related to generalized deconditioning hypoglycemia, hypotension, urine retention and UTI. PT/OT UTI - does not meet criteria for sepsis, no CVA tenderness on exam, in urine retention in the ER with 1L already out in ramirez cath bag. Follow up urine and blood cultures. Ceftriaxone IV Urine retention - continue ramirez catheter use. Possibly trial without catheter prior to discharge vs. follow up with urology HTN - agree with holding lisinopril Hypoglycemia - stop basal dosing of insulin, D5W ordered. Obstipation - last admission, continue MiraLAX BID Proctitis - suspect from prior constipation. Infection not ruled out but suspect more likely source if her urine as she denies any rectal pain Elevated LFTs - normal liver on imaging. Prior cholecystectomy. Suspect from hypotension and UTI. Trend with AM labs. Taking 4g acetaminophen daily. Avoid further acetaminophen. PG Care Time/CCT Total # of Minutes Spent Total Time Spent with Patient: Total time spent is greater than 50% in coordination of care (as documented) at patient's floor/unit and/or counseling patient: Coding [place] [address] INT INP/OBS CARE 375MIN Patient Type Established Medical Decision Making Moderate Complexity Diagnoses Fall W19.XXXA Elevated LFTs R79.89 Hypoglycemia E16.2 Lactate blood increase R79.89 Elevated procalcitonin R79.89 Proctitis K62.89 Abdominal pain R10.9 Urinary retention R33.9 Right leg pain M79.604 Coronary artery disease involving [place] coronary artery of [place] heart, angina presence unspecified I25.10 Associated angina: angina presence unspecified Coronary Disease-Associated Artery/Lesion type: [place] artery [place] vs. transplanted heart: [place] heart Mckeon's esophagus without dysplasia K22.70 Mckeon's esophagus type: without dysplasia (10) CAD (coronary artery disease) Associated angina: angina presence unspecified Coronary Disease-Associated Artery/Lesion type: [place] artery [place] vs. transplanted heart: [place] heart Qualified Code(s): I25.10 - Atherosclerotic heart disease of [place] coronary artery without angina pectoris (11) Mckeon esophagus Mckeon's esophagus type: without dysplasia Qualified Code(s): K22.70 - Mckeon's esophagus without dysplasia
[2023-07-01] MEDS ORDERED: CARBOHYDRATES FOR HYPOGLYCEMIA PO PRN (16:35)
[2023-07-01] MEDS ORDERED: GLUCOSE 40% GEL 15 GM TUBE PO PRN (16:35)
[2023-07-01] MEDS ORDERED: GLUCOSE 10 TAB/TUBE PO PRN (16:35)
[2023-07-01] MEDS ORDERED: DEXTROSE 50% 50 ML SYRINGE IV PRN (16:35)
[2023-07-01] MEDS ORDERED: GLUCAGON FOR INJ 1 MG VIAL SQ PRN (16:35)
[2023-07-01] MEDS ORDERED: PANTOprazole 40 MG in SYRINGE 0 ML IV ONE (16:38)
[2023-07-01] MEDS ORDERED: DEXTROSE 50% 50 ML SYRINGE IV ONE (16:45)
[2023-07-01 17:49] LABS: Creatine Kinase 14 U/L (26-192)
[2023-07-01] MEDS ORDERED: LACTATED RINGER'S 1,000 ML IV ONE (18:07)
[2023-07-01] MEDS ORDERED: LACTATED RINGER'S 1,000 ML IV SCH (18:15)
[2023-07-01 18:57] LABS: Appearance Urine Cloudy (Clear); Bacteria Urine Automated 3+ (Negative); Bilirubin Urine Negative (Negative); Blood Urine 3+ (Negative); Color Urine Yellow; Epithelial Cell Urine Auto 0-5 /lpf (0-5); Glucose Urine UA Negative (Negative); Ketones Urine Trace (Negative); Leukocyte Esterase Urine 1+ (Negative); Nitrite Urine Positive (Negative); Protein Urine Trace (Negative); Specific Gravity Urine 1.016 (1.000-1.030); Urobilinogen Urine Negative (Negative)
--- NOTE | 2023-07-01 18:58 | XRay Report ---
XR chest 1V portable HISTORY: fall COMPARISON: Chest and abdominal series 06/29/2023. FINDINGS: No pneumothorax. No pleural effusions. The heart is top normal in size. No evidence for pul monary edema. No new focal lung consolidations to suggest pneumonia. The no acute fractures identifie d. IMPRESSION: No acute process. ACT 112: Negative or not required by law. Electronically signed by: Vijay Vega M.D. 07/01/2023 6:57 PM
[2023-07-01] MEDS ORDERED: DEXTROSE 5% 1,000 ML IV SCH (19:00)
[2023-07-01 19:12] LABS: RBC Urine Automated 0-4 /hpf (0-4)
--- NOTE | 2023-07-01 19:25 | XRay Report ---
XR hip RT min 2V, XR femur RT 2V routine CLINICAL HISTORY: fall right femur/hip pain COMPARISON STUDY: Abdomen and pelvis CT 07/01/2023. Pelvis and right femur 11/06/2019. FINDINGS: No fracture or dislocation within the right hip or right femur. The visualized pelvic bones are intact. Mild vascular calcifications are noted. 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 There is a right total knee arthroplasty. The hardware appears intact. IMPRESSION: No fractures within the right hip or right femur. ACT 112: Negative or not required by law. Electronically signed by: Vijay Vega M.D. 07/01/2023 7:22 PM
[2023-07-01] MEDS ORDERED: diphenhydrAMINE 50 MG/ML VIAL IV PRN (19:34)
[2023-07-01] MEDS ORDERED: cefTRIAXone SODIUM 2000MG/50ML D5W IV ONE (20:24)
[2023-07-01] MEDS ORDERED: cefTRIAXone SODIUM 2,000 MG in DEXTROSE 5 % MINI-B 50 ML IV STA (20:27)
[2023-07-01] MEDS: INSULIN ASPART PER UNIT CHARGE SC SCH (20:32)
[2023-07-01] MEDS ORDERED: LANTUS PER UNIT CHARGE SQ SCH (21:00)
[2023-07-01] MEDS ORDERED: INSULIN ASPART PER UNIT CHARGE SC SCH (21:00)
[2023-07-01] MEDS ORDERED: LIDOCAINE 5% 1 PATCH TD PRN (21:33)
[2023-07-01] MEDS: DEXTROSE 5% 500 ML IV SCH (22:10)
[2023-07-01] MEDS: DOCUSATE SODIUM 100 MG CAP PO SCH (22:15)
[2023-07-01] MEDS: POLYETHYLENE (MIRALAX) 17 GM PACK PO SCH (22:15)
[2023-07-01] MEDS: busPIRone 5 MG TAB PO SCH (22:26)
[2023-07-01] MEDS: FAMOTIDINE 20 MG TAB PO SCH (22:27)
[2023-07-01] MEDS: PANTOprazole 40 MG TAB PO SCH (22:27)
[2023-07-02] MEDS: INSULIN ASPART PER UNIT CHARGE SC SCH ×5 (01:17→20:58)
[2023-07-02] MEDS: DEXTROSE 5% 500 ML IV SCH (04:25)
[2023-07-02 06:49] LABS: Albumin Level 2.5 gm/dl (3.4-5.0); Calcium 7.9 mg/dl (8.6-10.3); INR 1.2 (0.9-1.1); Magnesium 1.4 mg/dl (1.7-2.4); Potassium 3.9 mmol/L (3.5-5.1); Prothrombin Time 13.2 Seconds (9.0-12.0)
[2023-07-02 06:56] LABS: Albumin Globulin Ratio 1.1 (0.9-2); BUN Creatinine Ratio 13.8 (10-20); Creatinine Clr Calc Pharmacy 27.5 ml/min; Est GFR (African American) 34.1 ml/min; Est GFR (Non-African American) 29.4 ml/min; Globulin 2.2 gm/dl (2.5-4.0); Total Protein 4.7 gm/dl (6.0-8.3)
[2023-07-02 07:46] LABS: Hematocrit (blood only) 27.1 % (37.0-47.0); Hemoglobin 9.3 g/dl (12.0-16.0); Mean Corpuscular Hgb Conc 34.3 g/dL (32.0-36.0); Mean Corpuscular Volume 81.6 fL (80.0-100.0); Mean Platelet Volume 10.5 fL (9.4-12.4); Platelet Count 115 K/uL (130-400); RDW Coefficient of Variation 15.4 % (11.5-14.5); RDW Standard Deviation 46.2 fL (36.4-46.3); Red Blood Count 3.32 M/uL (4.20-5.40); White Blood Count 31.93 K/ul (4.8-10.8)
[2023-07-02 07:49] LABS: ALC (manual) 1.92 K/uL (1.2-3.4); Dohle Bodies 1+; Lymphocytes # (manual) 1.92 K/uL (1.2-3.4); Lymphocytes % (manual) 6 %; Metamyelocytes # (manual) 1.92 K/uL (0-0); Metamyelocytes % (manual) 6 %; Neutrophils % (manual) 88 %; Toxic Vacuolation 2+
--- NOTE | 2023-07-02 08:04 | Hospitalist Progress Note ---
Date of Service July 02, 2023 Assessment & Plan (1) Sepsis: Plan: Patient presenting for re-admission after recent discharge home rather than rehab and sustained a fall out of bed when trying to get up to use the bathroom. -To note, patient w/ urinary retention/SHERRIE appearing last admission and had ramirez placed which was discontinued prior to discharge. Did have Leukocytosis but did not appear to be getting significant steroids during that time WBC 8.3k on admission but w/ elevated lactic to 4 and procal 4.45 and UA obtained which appeared infectious and Ceftriaxone was initiated Labs reviewed this morning and WBC jumped to 31.9k from 8.3k, procalcitonin 63.68 Blood cultures on admission prior to initiation of abx obtained Lactic decreased on repeat however patient w/ BP 70s/40s this morning and slight confusion Noting was given 1L NSS and 1L LR on admission, continued D5W overnight for hypoglycemia on admission (to 50s) when normally patient hyperglycemic on admission (A1c >11) suspicious for sepsis Asked RN to provide 250cc bolus x 1 now, repeated lactic and blood work given significant change and WBC worsened and lactic 4 again Additional 1L NSS bolus provided, BP on repeat following 91/57 w/ improvement in mentation Blood cultures positive Ecoli/enterobacterales as initially broadened coverage to Zosyn to cover abdominal as well as urine for noted proctitis on CTAP on admission but per discussion w/ ID (consult placed) was going to switch to Cefepime/Flagyl for susp enterococcus but confirmed w/ pharmacy PCR enterobacterales + from the ecoli and not true enterococcus (not likely to be in urine as not in blood on PCR) and decision to continue Zosyn IV for now BSGs improving this afternoon, discontinued further D5W as eating/tolerating PO and BSG to 230s Changed IVF to NSS @ 100cc/hr for now and will monitor Continue to hold antihypertensive agents (lisinopril stopped last admission for hyperkalemia) Follow cultures/repeat labs, appreciate ID assistance Transferred to monitored bed for closer monitoring given hypotension/sepsis/above PT/OT consults to be undertaken --> STRONGLY ENCOURAGING PATIENT FOR REHAB AT [facility] DVT proph: SCDs, added Heparin SQ Monitor labs in AM (2) Bacteremia: Plan: +blood cultures/procalcitonin as above IV abx as outlined, monitor exam/repeat labs, ID consultation placed (3) Acute UTI (urinary tract infection): Plan: suspect 2nd to retention vs ramirez placement last admission for such increased frequency/weakness --> UA appearing infected (see abx as above) Monitor final urine cx Likely maintain Ramirez at dc and consider voiding trial in f/u (4) Proctitis: Plan: Noted on CTAP, 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 No recent diarrhea reported (admitted recent w/ constipation -- suspect proctitis 2nd to constipation) Enema in ER w/ large BM w/ reported improvement but does have lower abdominal cramping on exam today Started on colace/miralax BID no recent abx but can check cdiff if any diarrhea (5) Fall: Plan: multifactorial in setting of repeated hospitalizations/cervical radiculopathy, now w/ sepsis/bacteremia 2nd to urine/abdominal source suspected CT head negative for acute CVA/fracture Imaging negative for acute fracture (noting possible need for xray of R elbow and will monitor) Tx as outlined for bacteremia/infection SCDs ordered for DVT prophylaxis, Hgb dropped but suspected 2nd to IVF resuscitation/dilutional from IVF on admission Therapy evaluations to be undertaken and discussed rehab/SNF at discharge given significant infection and weakness to require inpatient rehabilitation (she was agreeable today-- will monitor -- she does again want [facility] if needed) (6) Elevated LFTs: Plan: Mild elevation on admission, significant elevation today. CK wnl (was down for several hours) Suspected 2nd to fall/also w/ hypotension and possible shocked liver given BP 70/40s this morning and significant jump (TB wnl) Denied RUQ pain on exam Avoid hepatotoxic medications IVF resus, holding anti-HTN medications Patient is s/p cholecystectomy in the past (TB 1.0) -- imaging did note prominent CBD/unchanged from prior (trace perihepatic ascites) Monitor in AM (7) Hypoglycemia: Plan: Noted to be hypoglycemic at 51 at the time of admission . Significantly uncontrolled DM as outpatient however at baseline but recent poor PO intake due to constipation/admission for such w/ n/v concerning for infection as above Given 1 amp Dextrose in ER, continued D5W overnight BSgs improved/PO intake and discontinued/placed on NSS as above Home meds on hold Holding basal insulin, BSG AC/HS, SSI for now Will consult pharmacy for glycemic management in complex patient/typically uncontrolled DM at baseline (8) Lactate blood increase: Plan: Lactated elevated at 2.5, still at 2.5 and worsened to 4 on third repeat --> 3.9 suspected 2nd to infection (also on metformin/may need dc'd at dc, hypotension/shock) Repeated this AM/elevated to 4, IVF bolus 250cc w/ repeat 3.7 and additional 1L bolus and continued increased NSS at 100cc/hr as above (9) Elevated procalcitonin: Plan: initially 4.45-->63.6 on repeat. 2nd to bacteremia/sepsis as above from urine/proctitis suspected abx as above (10) Abdominal pain: Plan: suspect combination constipation/proctitis/uti as above ramirez placed w/ improvement in pain reported but ongoing issues --> see above IMPROVING THIS AFTERNOON w/ initiation of treatment (11) Urinary retention: Plan: Recurrent; also noted on last admission and placed in ER on admit w/ 1L output CTAP w/ b/l hydronephrosis (likely due to significant bladder distension prior to ramirez placement) but does have some low back pain (no overt CVA tenderness but ?pyelo) Cr elevation today, combination infection/hypotension. IVF/resus as above and renal dose meds/avoid nephrotoxins Maintain ramirez catheter for now Monitor in AM should do voiding trial prior to discharge with Urology consult if she continues to retain (12) Right leg pain: Plan: Pain in the proximal femur/right hip on exam , likely 2nd to fall/sepsis as above. CK wnl on check. Imaging negative. ?more R groin pain from UTI? (13) CAD (coronary artery disease): Plan: Hx CAD s/p PCI (LAD, Cx, RCA). 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 Distal esophageal thickening noted on admit imaging (15) Acute urinary retention: (16) Hypomagnesemia: Plan: low, IV replacement ordered and will monitor on repeat Plan continued inpatient stay --> moved to telemetry given sepsis/bacteremia/hypotension. ID consulted. Abx changed to Zosyn and therapy evaluations in place Admission and Anticipated Discharge Date Admission Date: July 01, 2023 Supervising Physician Co-Signing Physician Notes The patient was seen by me. The chart was reviewed. Case discussed with JAVI Woods. Agree with assessment and plan. Gram-negative bacteremia noted. She is on appropriate antibiotic coverage. She was septic on admission. Subjective Eval this morning, sitting up in bed, spilled some coffee on herself. Little confused at times but knows she is in the hospital. Initially said born in 2020, suspecting UTI contributing to confusion from catheter placement last admission. She reports poor intake and BPs 120s systolically at home. Had fall out of bed to her right arm, having lower abdominal pain/suprapubic pain. Significant other at bedside. She does feel feverish/chills, some shortness of breath but no chest pain at present. Denies any increased shortness of breath with inspiration at present. She denies any blood in urine/stool/vomit. Reported poor PO intake prior to admission 2nd to constipation issues. Discussed monitoring cultures/abx therapy and repeating labs. Had her lisinopril stopped last admission, but endorses she has still been on the gabapentin 200mg TID and extra 100mg dose at night for her neuropathy which seems reasonably controlled at present. Also suggesting that home is not the best option for her at present time. Significant other at bedside nodding in agreement. Physical Exam Physical Exam: General: chronically ill appearing female sitting up in recliner, fatigued/weak appearing, reporting fatigue/feeling ill, significant other at bedside alert to person/knows in hospital but not to year/month HEENT: head atraumatic, normocephalic, mm dry, trachea midline Resp: diminished in the bases, no w/c/r, on room air CV: RRR, no significant m/r/g (quiet HS), trace pedal edema, no calf tenderness, pulses palpable GI: +BS, slight distension/fullness, +tender to palpation suprapubic/lower abdomen, no guarding/rigidity : ramirez with cloudy yellow urine w/ sediment draining MSK/Neuro: no slurred speech/facial droop, following commands abrasions noted from fall, additional to R elbow Results & Data Results & Data Vital Signs (Past 12 Hours) Vital Signs Temp Pulse Resp BP Pulse Ox Pulse Ox O2 Del Method 07/01/23 21:15 Room Air 07/01/23 21:15 37.6 C H 88 16 110/68 95 Room Air 07/01/23 21:15 Room Air 07/01/23 21:15 95 07/01/23 21:15 37.6 C H 88 16 110/68 95 Room Air O2 Del Method 07/01/23 21:15 07/01/23 21:15 07/01/23 21:15 07/01/23 21:15 Room Air 07/01/23 21:15 Laboratory Results 07/02/23 07/02/23 07/02/23 Range/Units 05:59 05:56 01:00 WBC 31.93 H* D (4.8-10.8) K/ul RBC 3.32 L (4.20-5.40) M/uL Hgb 9.3 L D (12.0-16.0) g/dl Hct 27.1 L (37.0-47.0) % MCV 81.6 (80.0-100.0) fL MCH 28.0 (25.0-34.0) pg MCHC 34.3 (32.0-36.0) g/dL RDW Std Deviation 46.2 (36.4-46.3) fL RDW Coeff of Tino 15.4 H (11.5-14.5) % Plt Count 115 L D (130-400) K/uL MPV 10.5 (9.4-12.4) fL Immature Gran % (Auto) % Neut % (Auto) % Lymph % (Auto) % Victoria % (Auto) % Eos % (Auto) % Baso % (Auto) % Neut # (Auto) (1.40-6.50) K/uL Lymph # (Auto) (1.20-3.40) K/uL Victoria # (Auto) (0.11-0.59) K/uL Eos # (Auto) (0.00-0.50) K/uL Baso # (Auto) (0.00-0.20) K/uL Immature Gran # (Auto) (0.01-0.20) K/uL Neutrophils % (Manual) 88 % Lymphocytes % (Manual) 6 % Metamyelocytes % (Man) 6 % Neutrophils # (Manual) 28.10 H (1.40-6.50) K/uL Total Absolute Neuts 28.10 H (1.4-6.5) K/uL Lymphocytes # (Manual) 1.92 (1.2-3.4) K/uL Total Abs Lymphocytes 1.92 (1.2-3.4) K/uL Metamyelocytes # (Man) 1.92 H (0-0) K/uL Toxic Vacuolation 2+ Dohle Bodies 1+ PT 13.2 H (9.0-12.0) Seconds INR 1.2 H (0.9-1.1) Sodium 132 L (136-145) mmol/L Potassium 3.9 (3.5-5.1) mmol/L Chloride 102 (98-107) mmol/L Carbon Dioxide 21 (21-32) mmol/L Anion Gap 9 (3-11) BUN 23 (6-23) mg/dl Creatinine 1.67 H D (0.6-1.2) mg/dl Est Cr Clr Drug Dosing 27.5 Est GFR ( Amer) 34.1 ml/min Est GFR (Non-Af Amer) 29.4 ml/min BUN/Creatinine Ratio 13.8 (10-20) Glucose 129 H (70-99(Fasting)) mg/dl POC Glucose 145 H 125 H (70-99) mg/dl Lactate (0.4-2.0) mmol/L Calcium 7.9 L (8.6-10.3) mg/dl Magnesium 1.4 L (1.7-2.4) mg/dl Total Bilirubin 1.0 (0.2-1.0) mg/dl AST 511 H (13-39) U/L ALT 329 H (7-52) U/L Alkaline Phosphatase 290 H (34-104) U/L Total Creatine Kinase (26-192) U/L Total Protein 4.7 L D (6.0-8.3) gm/dl Albumin 2.5 L (3.4-5.0) gm/dl Globulin 2.2 L (2.5-4.0) gm/dl Albumin/Globulin Ratio 1.1 (0.9-2) Lipase (11-82) U/L Procalcitonin 63.68 H Urine Color Urine Appearance (Clear) Urine pH (4.5-7.5) Ur Specific [place] (1.000-1.030) Urine Protein (Negative) Urine Glucose (UA) (Negative) Urine Ketones (Negative) Urine Blood (Negative) Urine Nitrite (Negative) Urine Bilirubin (Negative) Urine Urobilinogen (Negative) Ur Leukocyte Esterase (Negative) Urine WBC (Auto) (0-5) /hpf Urine RBC (Auto) (0-4) /hpf U Hyaline Cast (Auto) (0-5) /lpf U Epithel Cells (Auto) (0-5) /lpf Urine Bacteria (Auto) (Negative) 07/01/23 07/01/23 07/01/23 Range/Units 22:47 20:23 18:39 WBC (4.8-10.8) K/ul RBC (4.20-5.40) M/uL Hgb (12.0-16.0) g/dl Hct (37.0-47.0) % MCV (80.0-100.0) fL MCH (25.0-34.0) pg MCHC (32.0-36.0) g/dL RDW Std Deviation (36.4-46.3) fL RDW Coeff of Tino (11.5-14.5) % Plt Count (130-400) K/uL MPV (9.4-12.4) fL Immature Gran % (Auto) % Neut % (Auto) % Lymph % (Auto) % Victoria % (Auto) % Eos % (Auto) % Baso % (Auto) % Neut # (Auto) (1.40-6.50) K/uL Lymph # (Auto) (1.20-3.40) K/uL Victoria # (Auto) (0.11-0.59) K/uL Eos # (Auto) (0.00-0.50) K/uL Baso # (Auto) (0.00-0.20) K/uL Immature Gran # (Auto) (0.01-0.20) K/uL Neutrophils % (Manual) % Lymphocytes % (Manual) % Metamyelocytes % (Man) % Neutrophils # (Manual) (1.40-6.50) K/uL Total Absolute Neuts (1.4-6.5) K/uL Lymphocytes # (Manual) (1.2-3.4) K/uL Total Abs Lymphocytes (1.2-3.4) K/uL Metamyelocytes # (Man) (0-0) K/uL Toxic Vacuolation Dohle Bodies PT (9.0-12.0) Seconds INR (0.9-1.1) Sodium (136-145) mmol/L Potassium (3.5-5.1) mmol/L Chloride (98-107) mmol/L Carbon Dioxide (21-32) mmol/L Anion Gap (3-11) BUN (6-23) mg/dl Creatinine (0.6-1.2) mg/dl Est Cr Clr Drug Dosing Est GFR ( Amer) ml/min Est GFR (Non-Af Amer) ml/min BUN/Creatinine Ratio (10-20) Glucose (70-99(Fasting)) mg/dl POC Glucose 74 (70-99) mg/dl Lactate 3.9 H* 4.0 H* (0.4-2.0) mmol/L Calcium (8.6-10.3) mg/dl Magnesium (1.7-2.4) mg/dl Total Bilirubin (0.2-1.0) mg/dl AST (13-39) U/L ALT (7-52) U/L Alkaline Phosphatase (34-104) U/L Total Creatine Kinase (26-192) U/L Total Protein (6.0-8.3) gm/dl Albumin (3.4-5.0) gm/dl Globulin (2.5-4.0) gm/dl Albumin/Globulin Ratio (0.9-2) Lipase (11-82) U/L Procalcitonin Urine Color Urine Appearance (Clear) Urine pH (4.5-7.5) Ur Specific [place] (1.000-1.030) Urine Protein (Negative) Urine Glucose (UA) (Negative) Urine Ketones (Negative) Urine Blood (Negative) Urine Nitrite (Negative) Urine Bilirubin (Negative) Urine Urobilinogen (Negative) Ur Leukocyte Esterase (Negative) Urine WBC (Auto) (0-5) /hpf Urine RBC (Auto) (0-4) /hpf U Hyaline Cast (Auto) (0-5) /lpf U Epithel Cells (Auto) (0-5) /lpf Urine Bacteria (Auto) (Negative) 07/01/23 07/01/23 07/01/23 Range/Units 18:37 17:16 17:04 WBC (4.8-10.8) K/ul RBC (4.20-5.40) M/uL Hgb (12.0-16.0) g/dl Hct (37.0-47.0) % MCV (80.0-100.0) fL MCH (25.0-34.0) pg MCHC (32.0-36.0) g/dL RDW Std Deviation (36.4-46.3) fL RDW Coeff of Tino (11.5-14.5) % Plt Count (130-400) K/uL MPV (9.4-12.4) fL Immature Gran % (Auto) % Neut % (Auto) % Lymph % (Auto) % Victoria % (Auto) % Eos % (Auto) % Baso % (Auto) % Neut # (Auto) (1.40-6.50) K/uL Lymph # (Auto) (1.20-3.40) K/uL Victoria # (Auto) (0.11-0.59) K/uL Eos # (Auto) (0.00-0.50) K/uL Baso # (Auto) (0.00-0.20) K/uL Immature Gran # (Auto) (0.01-0.20) K/uL Neutrophils % (Manual) % Lymphocytes % (Manual) % Metamyelocytes % (Man) % Neutrophils # (Manual) (1.40-6.50) K/uL Total Absolute Neuts (1.4-6.5) K/uL Lymphocytes # (Manual) (1.2-3.4) K/uL Total Abs Lymphocytes (1.2-3.4) K/uL Metamyelocytes # (Man) (0-0) K/uL Toxic Vacuolation Dohle Bodies PT (9.0-12.0) Seconds INR (0.9-1.1) Sodium (136-145) mmol/L Potassium (3.5-5.1) mmol/L Chloride (98-107) mmol/L Carbon Dioxide (21-32) mmol/L Anion Gap (3-11) BUN (6-23) mg/dl Creatinine (0.6-1.2) mg/dl Est Cr Clr Drug Dosing Est GFR ( Amer) ml/min Est GFR (Non-Af Amer) ml/min BUN/Creatinine Ratio (10-20) Glucose (70-99(Fasting)) mg/dl POC Glucose 190 H (70-99) mg/dl Lactate 2.5 H* (0.4-2.0) mmol/L Calcium (8.6-10.3) mg/dl Magnesium (1.7-2.4) mg/dl Total Bilirubin (0.2-1.0) mg/dl AST (13-39) U/L ALT (7-52) U/L Alkaline Phosphatase (34-104) U/L Total Creatine Kinase (26-192) U/L Total Protein (6.0-8.3) gm/dl Albumin (3.4-5.0) gm/dl Globulin (2.5-4.0) gm/dl Albumin/Globulin Ratio (0.9-2) Lipase (11-82) U/L Procalcitonin 4.45 H Urine Color Yellow Urine Appearance Cloudy A (Clear) Urine pH 5.0 (4.5-7.5) Ur Specific [place] 1.016 (1.000-1.030) Urine Protein Trace H (Negative) Urine Glucose (UA) Negative (Negative) Urine Ketones Trace H (Negative) Urine Blood 3+ H (Negative) Urine Nitrite Positive A (Negative) Urine Bilirubin Negative (Negative) Urine Urobilinogen Negative (Negative) Ur Leukocyte Esterase 1+ H (Negative) Urine WBC (Auto) 10-30 H (0-5) /hpf Urine RBC (Auto) 0-4 (0-4) /hpf U Hyaline Cast (Auto) 1-5 (0-5) /lpf U Epithel Cells (Auto) 0-5 (0-5) /lpf Urine Bacteria (Auto) 3+ H (Negative) 07/01/23 07/01/23 Range/Units 16:44 13:11 WBC 8.31 (4.8-10.8) K/ul RBC 4.94 (4.20-5.40) M/uL Hgb 13.5 (12.0-16.0) g/dl Hct 40.7 (37.0-47.0) % MCV 82.4 (80.0-100.0) fL MCH 27.3 (25.0-34.0) pg MCHC 33.2 (32.0-36.0) g/dL RDW Std Deviation 45.6 (36.4-46.3) fL RDW Coeff of Tino 15.1 H (11.5-14.5) % Plt Count 249 (130-400) K/uL MPV 9.8 (9.4-12.4) fL Immature Gran % (Auto) 1.0 % Neut % (Auto) 82.0 % Lymph % (Auto) 12.6 % Victoria % (Auto) 4.0 % Eos % (Auto) 0.2 % Baso % (Auto) 0.2 % Neut # (Auto) 6.81 H (1.40-6.50) K/uL Lymph # (Auto) 1.05 L (1.20-3.40) K/uL Victoria # (Auto) 0.33 (0.11-0.59) K/uL Eos # (Auto) 0.02 (0.00-0.50) K/uL Baso # (Auto) 0.02 (0.00-0.20) K/uL Immature Gran # (Auto) 0.08 (0.01-0.20) K/uL Neutrophils % (Manual) % Lymphocytes % (Manual) % Metamyelocytes % (Man) % Neutrophils # (Manual) (1.40-6.50) K/uL Total Absolute Neuts (1.4-6.5) K/uL Lymphocytes # (Manual) (1.2-3.4) K/uL Total Abs Lymphocytes (1.2-3.4) K/uL Metamyelocytes # (Man) (0-0) K/uL Toxic Vacuolation Dohle Bodies PT (9.0-12.0) Seconds INR (0.9-1.1) Sodium 135 L (136-145) mmol/L Potassium 3.8 (3.5-5.1) mmol/L Chloride 102 (98-107) mmol/L Carbon Dioxide 25 (21-32) mmol/L Anion Gap 8 (3-11) BUN 20 (6-23) mg/dl Creatinine 1.14 (0.6-1.2) mg/dl Est Cr Clr Drug Dosing Not Reportable Est GFR ( Amer) 54.1 ml/min Est GFR (Non-Af Amer) 46.7 ml/min BUN/Creatinine Ratio 17.5 (10-20) Glucose 54 L (70-99(Fasting)) mg/dl POC Glucose 49 L* (70-99) mg/dl Lactate 2.5 H* (0.4-2.0) mmol/L Calcium 9.4 (8.6-10.3) mg/dl Magnesium (1.7-2.4) mg/dl Total Bilirubin 0.7 (0.2-1.0) mg/dl AST 41 H (13-39) U/L ALT 140 H (7-52) U/L Alkaline Phosphatase 240 H (34-104) U/L Total Creatine Kinase 14 L (26-192) U/L Total Protein 6.7 (6.0-8.3) gm/dl Albumin 3.5 (3.4-5.0) gm/dl Globulin 3.2 (2.5-4.0) gm/dl Albumin/Globulin Ratio 1.1 (0.9-2) Lipase 6 L (11-82) U/L Procalcitonin Cancelled Urine Color Urine Appearance (Clear) Urine pH (4.5-7.5) Ur Specific [place] (1.000-1.030) Urine Protein (Negative) Urine Glucose (UA) (Negative) Urine Ketones (Negative) Urine Blood (Negative) Urine Nitrite (Negative) Urine Bilirubin (Negative) Urine Urobilinogen (Negative) Ur Leukocyte Esterase (Negative) Urine WBC (Auto) (0-5) /hpf Urine RBC (Auto) (0-4) /hpf U Hyaline Cast (Auto) (0-5) /lpf U Epithel Cells (Auto) (0-5) /lpf Urine Bacteria (Auto) (Negative) ck Diagnostic Findings Abdomen/Pelvis CT 07/01/23 13:[address] WITH IV CONTRAST CT DOSE: 2149.46 mGy.cm HISTORY: Abd pain, s/p abd surgery TECHNIQUE: Multiaxial CT images of the abdomen and pelvis were performed following the use of intravenous contrast. A dose lowering technique was utilized adhering to the principles of ALARA. COMPARISON STUDY: Abdomen and pelvis CT 06/26/2023. FINDINGS: The large amount of stool within the rectum has significantly improved in the interval. There is a small amount of liquid stool remaining. However, there is been interval development of moderate circumferential thickening of the rectum with perirectal fat stranding/edema. This is consistent with a nonspecific proctitis. No pneumoperitoneum or pneumatosis identified. Question mild thickening of the sigmoid colon may be due to underdistention. There is moderate stool remaining within the colon which is similar to the prior study. No dilated loops of small bowel identified. Mildly distended and fluid-filled distal esophagus. There is a small hiatus hernia. There is mild thickening of the distal esophagus. The stomach is fluid-filled but nondistended. There is mi ld body wall edema. The bladder remains severely distended. The bladder contains a small amount of gas. This could be due to recent catheterization. Prior hysterectomy. Mild fullness within the bilateral renal collecting systems persists. This may be due to the distended bladder. A few subcentimeter hypodense lesions within the kidneys are too small to characterize but statistically represent cysts. No retroperitoneal or pelvic lymphadenopathy. Trace perihepatic ascites is noted. Otherwise, the liver, spleen, adrenal glands, and pancreas are unremarkable. Prior cholecystectomy. This likely acc ounts for the prominent common bile duct which remains unchanged. The main portal vein is patent. No retroperitoneal lymphadenopathy. Calcified plaque within the normal caliber abdominal aorta. The lung bases are clear. No acute fractures identified. IMPRESSION: 1. The large amount of stool within the rectum has significantly improved in the interval. There is a small amount of liquid stool remaining. However, there is been interval development of moderate circumferential thickening of the rectum with perirectal fat stranding/edema. This is consistent with a nonspecific proctitis. 2. Mild bilateral hydronephrosis again noted. This is likely related to the bladder distention. There is gas within the bladder which could be due to recent catheterization. Clinical correlation recommended. 3. Mild thickening and mild distention of the distal esophagus which is fluid- filled. This favors a nonspecific esophagitis. 4. Additional findings as described above. ACT 112: Negative or not required by law. Electronically signed by: Vijay Vega M.D. 07/01/2023 4:[address] 07/01/23 14:32 CT OF THE HEAD WITHOUT CONTRAST CLINICAL HISTORY: Trauma. COMPARISON STUDY: Head CT June 19, 2023. MRI of the brain October 31, 2018. TECHNIQUE: Helical axial images of the head were obtained without IV contrast. Automated exposure control was utilized for the study. A dose lowering technique was utilized adhering to the principles of ALARA. FINDINGS: No acute intracranial hemorrhage, midline shift or mass effect is present. The ventricular system is unremarkable. The basal cisterns are patent. No extra-axial collections are present. There are no findings to suggest acute dural sinus thrombosis or acute territorial infarct. There is no acute calvarial fracture. Small amount of fluid within the right mastoid air cells is unchanged. IMPRESSION: 1. No acute intracranial findings. 2. No acute calvarial fracture. ACT 112: Negative or not required by law. Electronically signed by: Jimmy Chavarria M.D. 07/01/2023 3:44 PM Femur X-Ray 07/01/23 17:22 XR hip RT min 2V, XR femur RT 2V routine CLINICAL HISTORY: fall right femur/hip pain COMPARISON STUDY: Abdomen and pelvis CT 07/01/2023. Pelvis and right femur 11/06/2019. FINDINGS: No fracture or dislocation within the right hip or right femur. The visualized pelvic bones are intact. Mild vascular calcifications are noted. 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 There is a right total knee arthroplasty. The hardware appears intact. IMPRESSION: No fractures within the right hip or right femur. ACT 112: Negative or not required by law. Electronically signed by: Vijay Vega M.D. 07/01/2023 7:22 PM Hip X-Ray 07/01/23 17:22 XR hip RT min 2V, XR femur RT 2V routine CLINICAL HISTORY: fall right femur/hip pain COMPARISON STUDY: Abdomen and pelvis CT 07/01/2023. Pelvis and right femur 11/06/2019. FINDINGS: No fracture or dislocation within the right hip or right femur. The visualized pelvic bones are intact. Mild vascular calcifications are noted. 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 There is a right total knee arthroplasty. The hardware appears intact. IMPRESSION: No fractures within the right hip or right femur. ACT 112: Negative or not required by law. Electronically signed by: Vijay Vega M.D. 07/01/2023 7:22 PM Chest X-Ray 07/01/23 18:05 XR chest 1V portable HISTORY: fall COMPARISON: Chest and abdominal series 06/29/2023. FINDINGS: No pneumothorax. No pleural effusions. The heart is top normal in size. No evidence for pulmonary edema. No new focal lung consolidations to suggest pneumonia. The no acute fractures identified. IMPRESSION: No acute process. ACT 112: Negative or not required by law. Electronically signed by: Vijay Vega M.D. 07/01/2023 6:57 PM Chest X-Ray 07/02/23 09:36 XR chest 1V portable HISTORY: Shortness of breath. COMPARISON: Chest 07/01/2023. FINDINGS: No pneumothorax. No pleural effusions. Mild interstitial thickening, unchanged. This is likely chronic. No new focal lung consolidations to suggest a pneumonia. No evidence for pulmonary edema. The cardiac silhouette remains top normal in size. Degenerative changes within the shoulders. No acute fractures. IMPRESSION: No significant change compared to the prior study. No acute process. ACT 112: Negative or not required by law. Electronically signed by: Vijay Vega M.D. 07/02/2023 10:22 AM PG Care Time/CCT Total # of Minutes Spent Total Time Spent with Patient: Total time spent is greater than 50% in coordination of care (as documented) at patient's floor/unit and/or counseling patient: Coding Level of Care Code 83906 SUB INP/OBS CARE 3/50MIN Diagnoses Sepsis A41.9 Bacteremia R78.81 Acute UTI (urinary tract infection) N39.0 Proctitis K62.89 Fall W19.XXXA Elevated LFTs R79.89 Hypoglycemia E16.2 Lactate blood increase R79.89 Elevated procalcitonin R79.89 Abdominal pain R10.9 Urinary retention R33.9 Right leg pain M79.604 Coronary artery disease involving sycuan coronary artery of sycuan heart, angina presence unspecified I25.10 Associated angina: angina presence unspecified Coronary Disease-Associated Artery/Lesion type: sycuan artery [place] vs. 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 transplanted heart: sycuan heart Qualified Code(s): I25.10 - Atherosclerotic heart disease of sycuan coronary ar que without angina pectoris (14) Mckeon esophagus Mckeon's esophagus type: without dysplasia Qualified Code(s): K22.70 - Mckeon's esophagus without dysplasia
[2023-07-02] MEDS: MAGNESIUM SULFATE / D5W 1 GM/100 ML BAG IV SCH ×3 (08:11→12:57)
[2023-07-02] MEDS ORDERED: D5W AND NSS 1,000 ML IV SCH (08:15)
[2023-07-02] MEDS ORDERED: SODIUM CHLORIDE 0.9% 250 ML IV ONE (08:57)
[2023-07-02] MEDS: FAMOTIDINE 20 MG TAB PO SCH ×2 (08:57→19:48)
[2023-07-02] MEDS: DULoxetine HCL 30 MG CAP PO SCH (08:57)
[2023-07-02] MEDS: ASPIRIN 81 MG ECTAB PO SCH (08:57)
[2023-07-02] MEDS: PANTOprazole 40 MG TAB PO SCH ×2 (08:57→19:48)
[2023-07-02] MEDS: ISOSORBIDE MONO EXTENDED REL 30 MG TABCR PO SCH (08:57)
[2023-07-02] MEDS: UMECLIDINIUM/VILANTEROL 62.5/25MCG 7 PUFFS/INHALER INH SCH (08:58)
[2023-07-02] MEDS: busPIRone 5 MG TAB PO SCH ×3 (08:58→19:49)
[2023-07-02] MEDS: FLUTICASONE FUROATE 100MCG 14 PUFFS/INHALER INH SCH (08:58)
[2023-07-02] MEDS: DOCUSATE SODIUM 100 MG CAP PO SCH ×2 (08:58→19:48)
--- NOTE | 2023-07-02 08:58 | Electrocardiogram Report ---
Test Reason : Blood Pressure : / mmHG Vent. Rate : 081 BPM Atrial Rate : 081 BPM P-R Int : 148 ms QRS Dur : 070 ms QT Int : 384 ms P-R-T Axes : 049 017 048 degrees QTc Int : 446 ms Normal sinus rhythm Normal ECG When compared with ECG of 26-JUN-2023 10:09, No significant change was found Confirmed by Bear Ruiz ([id number]) on 07/02/2023 8:57:37 AM Referred By: REFERRED SELF Confirmed By:Bear Ruiz
[2023-07-02] MEDS: POLYETHYLENE (MIRALAX) 17 GM PACK PO SCH ×2 (08:59→19:48)
[2023-07-02] MEDS: METOPROLOL SUCC 50MG EXT REL TAB PO SCH (09:00)
--- NOTE | 2023-07-02 10:24 | XRay Report ---
XR chest 1V portable HISTORY: Shortness of breath. COMPARISON: Chest 07/01/2023. FINDINGS: No pneumothorax. No pleural effusions. Mild interstitial thickening, unchanged. This is lik tito chronic. No new focal lung consolidations to suggest a pneumonia. No evidence for pulmonary edema . The cardiac silhouette remains top normal in size. Degenerative changes within the shoulders. No ac leticia fractures. IMPRESSION: No significant change compared to the prior study. No acute process. ACT 112: Negative or not required by law. Electronically signed by: Vijay Vega M.D. 07/02/2023 10:22 AM
[2023-07-02] MEDS ORDERED: SODIUM CHLORIDE 0.9% 1,000 ML IV ONE (10:27)
[2023-07-02 10:35] LABS: BUN Creatinine Ratio 14.1 (10-20); Calcium 8.2 mg/dl (8.6-10.3); Creatinine Clr Calc Pharmacy 25.9 ml/min; Est GFR (African American) 31.8 ml/min; Est GFR (Non-African American) 27.4 ml/min; Potassium 4.1 mmol/L (3.5-5.1)
[2023-07-02 10:41] LABS: Hematocrit (blood only) 29.8 % (37.0-47.0); Hemoglobin 9.8 g/dl (12.0-16.0); Mean Corpuscular Hemoglobin 27.2 pg (25.0-34.0); Mean Corpuscular Hgb Conc 32.9 g/dL (32.0-36.0); Mean Corpuscular Volume 82.8 fL (80.0-100.0); Mean Platelet Volume 10.5 fL (9.4-12.4); Platelet Count 122 K/uL (130-400); RDW Coefficient of Variation 15.6 % (11.5-14.5); RDW Standard Deviation 47.6 fL (36.4-46.3); White Blood Count 37.55 K/ul (4.8-10.8)
[2023-07-02 10:56] LABS: D Dimer 13710 ug/L FEU (0-500)
[2023-07-02 11:07] LABS: Basophils # (auto) 0.15 K/uL (0.00-0.20); Basophils % (auto) 0.4 %; Dohle Bodies 1+; Echinocytes 1+; Immature Granulocytes # (auto) 2.94 K/uL (0.01-0.20); Immature Granulocytes % (auto) 7.8 %; Lymphocytes # (auto) 1.03 K/uL (1.20-3.40); Lymphocytes % (auto) 2.7 %; Monocytes # (auto) 0.97 K/uL (0.11-0.59); Monocytes % (auto) 2.6 %; Neutrophils # (auto) 32.46 K/uL (1.40-6.50); Neutrophils % (auto) 86.5 %; Polychromasia 1+; Toxic Vacuolation 1+
[2023-07-02 11:43] LABS: Adenovirus PCR Not Detected (NotDetected); Bordetella parapertussis PCR Not Detected (NotDetected); Bordetella pertussis PCR Not Detected (NotDetected); Chlamydia pneumoniae PCR Not Detected (NotDetected); Coronavirus 229E PCR Not Detected (NotDetected); Coronavirus CoV-2 (COVID19)PCR Not Detected (NotDetected); Coronavirus HKU1 PCR Not Detected (NotDetected); Coronavirus NL63 PCR Not Detected (NotDetected); Coronavirus OC43PCR Not Detected (NotDetected); Human Metapneumovirus PCR Not Detected (NotDetected); Influenza A PCR Not Detected (NotDetected); Influenza B PCR Not Detected (NotDetected); Mycoplasma pneumoniae PCR Not Detected (NotDetected); Parainfluenza Virus 1 PCR Not Detected (NotDetected); Parainfluenza Virus 2 PCR Not Detected (NotDetected); Parainfluenza Virus 3 PCR Not Detected (NotDetected); Parainfluenza Virus 4 PCR Not Detected (NotDetected); Respiratory Syncytial VirusPCR Not Detected (NotDetected); Rhinovirus/Enterovirus PCR Not Detected (NotDetected)
[2023-07-02] MEDS ORDERED: PIPER/TAZO 4.5g in D5W MINI-B 100 ML IV ONE (11:45)
[2023-07-02 12:53] LABS: A calco-baum cmplx NotReported Not Detected (NotDetected); Bact fragilis Not Reported Not Detected (NotDetected); Blood Culture Id Panel See PCR Comment (NotDetected); C auris Not Reported Not Detected (NotDetected); CTX-M Resistant Gene Not Detected (NotDetected); Calbicans Not Reported Not Detected (NotDetected); Candida glabrata Not Reported Not Detected (NotDetected); Candida krusei Not Reported Not Detected (NotDetected); Cneoformans/gatti Not Reported Not Detected (NotDetected); Cparapsilosis Not Reported Not Detected (NotDetected); E cloacae compx Not Reported Not Detected (NotDetected); Efaecalis Not Reported Not Detected (NotDetected); Efaecium Not Reported Not Detected (NotDetected); Enterobacterales Not Reported DETECTED (NotDetected); Escherichia coli Not Reported DETECTED (NotDetected); H influenzae Not Reported Not Detected (NotDetected); IMP Resistant Gene Not Detected (NotDetected); K aerogenes Not Reported Not Detected (NotDetected); KPC Resistant Gene Not Detected (NotDetected); Koxytoca Not Reported Not Detected (NotDetected); Kpneumoniae grp Not Reported Not Detected (NotDetected); Lmonocyt Not Reported Not Detected (NotDetected); N meningitidis Not Reported Not Detected (NotDetected); NDM Resistant Gene Not Detected (NotDetected); OXA 48 Like Resistant Gene Not Detected (NotDetected); P aeruginosa Not Reported Not Detected (NotDetected); Proteus spp Not Reported Not Detected (NotDetected); Salmonella spp Not Reported Not Detected (NotDetected); Smarcescens Not Reported Not Detected (NotDetected); Staph lugdunensis Not Reported Not Detected (NotDetected); Staph spp. Not Reported Not Detected (NotDetected); Staphaureus Not Reported Not Detected (NotDetected); Staphepi Not Reported Not Detected (NotDetected); Stenmaltophilia Not Reported Not Detected (NotDetected); Strep agal(GrpB) Not Reported Not Detected (NotDetected); Strep pneum Not Reported Not Detected (NotDetected); Strep pyog (GrpA) Not Reported Not Detected (NotDetected); Strep spp Not Reported Not Detected (NotDetected); VIM Resistant Gene Not Detected (NotDetected); mcr-1 Colistin Resistant Gene Not Detected (NotDetected)
[2023-07-02 13:05] LABS: Enterobacterales DETECTED (NotDetected)
[2023-07-02] MEDS: SODIUM CHLORIDE 0.9% 1,000 ML IV SCH ×2 (13:43→23:37)
--- NOTE | 2023-07-02 13:59 | Infectious Disease Consult ---
Date of Consultation July 02, 2023 Assessment & Plan (1) Bacteremia: (2) Sepsis: (3) Elevated procalcitonin: (4) Acute urinary retention: (5) Acute UTI (urinary tract infection): Plan This is a 78 yo women with a pmh of bowel obstruction, cervical radiculopathy, IBS, Mckeon's esophagus, dm2, gastroparesis, recently admitted from 06/18-06/24 with constipation and urinary retention. She was found to have a large stool ball in the rectum c/f stercoral colitis and BL hydronephrosis s/p ramirez catheter. She presents 07/01 with increased abdominal and back pain. She fell out of bed and her family found her on the floor. Pt is a poor historian and cant tell me why or how she fell out of bed. She denies fever, chills, cough, dysuria She had 1 loose bowel movement In the Ed, she is afebrile, HR 113, bp 103/64, 97% RA, Labs Wbc 8.31?37.55, lactate 3.9, cr 1.14 , procal 4.45-?63.68. AST 41?511, ALT 140-? 329, Alk P 240. UA leuk esterase, wbc 10-30, 3+ bacteria, BC + GNR, BCID positive for ecoli. UC > 100L GNR, gamma strep CTAB shows a large amount of stool within the rectum which has improved in the interval. There is a small amount of liquid stool remaining. There is thickening of the rectum with perirectal fat stranding/edema c/w proctitis. Mild jonathan ateral hydronephrosis again noted. This is likely related to the bladder distention. Mild esophagitis. ID consulted for bacteremia/sepsis. Today she is noted to be hypotensive with Bp 91/57. Her procalcitonin and leukocytosis has worsened. She is pale appearing but comfortable on exam. She complains of some abdominal discomfort, but on exam it is soft with mild tenderness. She was initially on Ceftriaxone but Zosyn started today. Micro UC >100K GNR, Gamma Strep, not enterococcus BC 2/4 GNR Abx Ceftriaxone 07/01-07/02 Zosyn 07/02- ongoing # Severe leukocytosis # Ecoli bacteremia ( via BCID) ( ? source GI translocation vs Urine) # UTI # urinary retention. # Sepsis # Cephalosporin allergy ; rash/itching # Sulfa allergy : hives Source of her Ecoli bacteremia may be from a Urine vs GI source. Urine- has abdominal pain and required ramirez in Ed for urine retention: ~ 1L UOP after placement. CTAB showed mild BL hydronephrosis, possibly due to significant bladder distention prior to ramirez. GI--She has prolonged constipation with retained stool and proctitis on imaging. The Ecoli could be from gut translocation. . Recommendations Continue zosyn 4.5 g iv q 8 h for Coverage of Ecoli and other GI sigrid. BCID shows + enterobacterales group, not Enterobacter or enteroccocus. FU urine culture FU blood culture Serial abdominal exam Closely monitor WBC, procalcitonin, lactate. Dw team Thank you for this consultation. ID will continue to follow. Jax Dorsey MD, MPH Infectious Disease [facility], [facility] Call [phone] with questions Consultation Information Consultation was provided via telemedicine using two-way real-time interactive telecommunication between the patient and the telemedicine provider. For the duration of the visit, the provider was performing the assessment from a different facility than the patient. This includesuse of bluetooth stethoscope forauscultationperformed by the telepresenter that the telemedicine provider can hear if described in the physical exam. [place] [facility] contact information: Please call [facility] Call Center [phone]. (Phone Number For Physician Use Only) After establishing a telemedicine visit, patient was: Patient was verified with two unique identifiers Time Spent with Patient: Initial => 75 min History of Present Illness Reason for Consultation: Ecoli Bacteremia, sepsis Requesting Physician: JAVI Woods Attending Physician: Andrew Willis MD History of Present Illness This is a 78 yo women with a pmh of bowel obstruction, cervical radiculopathy, IBS, Mckeon's esophagus, dm2, gastroparesis, recently admitted from 06/18-06/24 with constipation and urinary retention. She was found to have a large stool ball in the rectum c/f stercoral colitis and BL hydronephrosis s/p ramirez catheter. She presents 07/01 with increased abdominal and back pain. She fell out of bed and her family found her on the floor. Pt is a poor historian and cant tell me why or how she fell out of bed. She denies fever, chills, cough, dysuria She had 1 loose bowel movement In the Ed, she is afebrile, HR 113, bp 103/64, 97% RA, Labs Wbc 8.31?37.55, lactate 3.9, cr 1.14 , procal 4.45-?63.68. AST 41?511, ALT 140-? 329, Alk P 240. UA leuk esterase, wbc 10-30, 3+ bacteria, BC + GNR, BCID positive for ecoli. UC > 100L GNR, gamma strep CTAB shows a large amount of stool within the rectum which has improved in the interval. There is a small amount of liquid stool remaining. There is thickening of the rectum with perirectal fat stranding/edema c/w proctitis. Mild bilateral hydronephrosis again noted. This is likely related to the bladder distention. Mild esophagitis. ID consulted for bacteremia/sepsis. Today she is noted to be hypotensive with Bp 91/57. Her procalcitonin and leukocytosis has worsened. She is pale appearing but comfortable on exam. She complains of some abdominal discomfort, but on exam it is soft with mild tenderness. She was initially on Ceftriaxone but Zosyn started today. Allergies Allergy/AdvReac Type Severity Reaction Status Date / Time cephalexin Allergy Intermediate Rash and Verified 07/01/23 16:23 itchiness Cephalosporins Allergy Intermediate Rash and Verified 07/01/23 16:23 itchiness Sulfa (Sulfonamide Allergy Intermediate Hives Verified 07/01/23 16:23 Antibiotics) Home Medications Medication Instructions Recorded Confirmed Type aspirin 81 mg tablet,delayed 81 mg PO QAM 10/24/21 07/01/23 History release fluticasone fur. 100 mcg-umeclid 1 inh inhalation DAILY #28 ea 02/11/22 07/01/23 Rx 62.5 mcg-vilant 25 mcg inhalat.powder (Trelegy Ellipta) ezetimibe 10 mg tablet (Zetia) 10 mg PO QAM #90 tabs 09/18/22 07/01/23 Rx metoprolol succinate 100 mg 100 mg PO QAM #90 tabs 09/18/22 07/01/23 Rx tablet,extended release 24 hr pantoprazole 40 mg tablet,delayed 40 mg PO BID #180 tabs 09/18/22 07/01/23 Rx release rosuvastatin 40 mg tablet 40 mg PO QAM #90 tabs 09/18/22 07/01/23 Rx Vitamin B 12 Cypo Value 200+20 1,000 mcg PO DAILY 03/25/23 07/01/23 History buspirone 10 mg tablet 10 mg PO TID 03/25/23 07/01/23 History famotidine 20 mg tablet 20 mg PO BID 03/25/23 07/01/23 History isosorbide mononitrate 30 mg 30 mg PO QAM 03/25/23 07/01/23 History tablet,extended release 24 hr ergocalciferol (vitamin D2) 1,250 50,000 unit PO WK 06/18/23 07/01/23 History mcg (50,000 unit) capsule folic acid 1 mg tablet 1 mg PO QAM 06/18/23 07/01/23 History insulin aspart U-100 100 unit/mL See Rx Instructions .Route 06/24/23 07/01/23 Rx subcutaneous solution (Novolog .COMPLEX #10 mL U-100 Insulin aspart) insulin glargine 100 unit/mL 20 unit (0.2 mL) SC QAM #10 mL 06/24/23 07/01/23 Rx subcutaneous solution (Lantus U-100 Insulin) lidocaine 5 % topical patch 0 patch topical DAILY PRN pain 06/26/23 07/01/23 History (Lidoderm) metformin 500 mg tablet 1,000 mg PO BID 06/26/23 07/01/23 History diclofenac sodium 1 % topical gel 2 g topical QID PRN Pain #100 grams 06/29/23 07/01/23 Rx duloxetine 30 mg capsule,delayed 30 mg PO QAM #90 caps 06/29/23 07/01/23 Rx release tramadol 50 mg tablet 50 mg PO TID PRN pain #20 tabs 06/29/23 07/01/23 Rx acetaminophen 500 mg tablet 1,000 mg PO DIRECTED PRN 07/01/23 07/01/23 History (Tylenol Extra Strength) PAIN/FEVER lisinopril 10 mg tablet 10 mg PO QAM 07/01/23 07/01/23 History Patient History Medical History Acute kidney injury Cervical spinal stenosis Edema Acute neck pain Type 2 diabetes mellitus with chronic kidney disease Hyperosmolar hyperglycemic state (HHS) Hypotension Chest pain Acute hyperglycemia Vomiting Chest pain History of COVID-2020 - resolved COVID Hyperglycemia due to type 2 diabetes mellitus Acute non-ST elevation myocardial infarction (NSTEMI) 11/28/2021 had [place] [facility] management and follow with dr abdullahi apt 02/09/2022 Folic acid deficiency Vitamin B12 deficiency Asymptomatic bacteriuria Hypotension Back pain Abrasion Elevated troponin Fall Accelerated essential hypertension Elevated troponin Chest pain chronic chest pain and cardiac is negative Dyslipidemia Cervical pain (neck) Chronic pain syndrome Depression Diabetic gastroparesis Diabetic peripheral neuropathy GERD without esophagitis Lumbar spondylosis Mckeon esophagus CAD (coronary artery disease) s/p stents to RCA November 2005; s/p stents to LAD, LCx in January 2006; s/p stents to RCA in 08/2006 IBS (irritable bowel syndrome) Diabetes mellitus, type 2 IDDM Myocardial Infarction [place]- November 2005, January 2006, Aug 2006 3 total within an 8 month span--HX OF CATH 2012 [facility], FOLLOWS WITH DR. ABDULLAHI Surgical History Status post trigger finger release right thumb S/P coronary artery stent placement s/p stents to RCA November 2005; s/p stents to LAD, LCx in January 2006; s/p stents to RCA in 08/2006 History of total hysterectomy with bilateral salpingo-oophorectomy (BSO) History of lumbar spinal fusion History of total right knee replacement (TKR) History of esophageal dilatation History of colonoscopy with polypectomy History of esophagogastroduodenoscopy (EGD) History of tooth extraction all teeth History of cholecystectomy History of cataract surgery BL History of cardiac cath last 2012 @ [facility], no stents--s/p stents to RCA November 2005; s/p stents to LAD, LCx in January 2006; s/p stents to RCA in 08/2006 Family History Brother Myocardial infarction Anxiety Heart disease Hypertension Cancer Sister Family history of reaction to anesthesia difficulty waking Hypertension Heart disease Myocardial infarction Anxiety Cancer Diabetes Father Anxiety Heart disease Hypertension Mother Anxiety Hypertension Heart disease Unknown Cancer skin, GI Denies family history of Ovarian cancer Prostate cancer Breast cancer Colorectal cancer Stroke Social History Smoking Status: Never smoker Tobacco Type: Cigarettes Age Started Using Tobacco: 18; Age Quit Using Tobacco: 57; Second Hand Exposure: No; Do You Dip or Chew Tobacco: No; Tobacco Cessation Education Requested by Patient: No Hx Alcohol Use: No Hx Substance Use: No Preferred Language: Congolese Communication Ability: Impaired Visual Impairment: Limited Hearing Ability: Normal Sales And Marketing Associate Required: No Beliefs That Will Affect Care: None marital status: / Current Living Situation: Alone Current Living Situation Comment: Lives home alone. Care givers (home health aides) come for 2 hours a day. current occupational status: retired and disabled How many Children do You have: 3 Other Information That Helps Us Care for You: No Feels Safe at Home: Yes Safety Concerns: Feels Safe At This Time Childhood Exposure to Second-Hand Smoke: No caffeine: Yes (drinks coffee, diet pepsi occasionally ) Dental Care, Regularly: No Physical Activity Frequency: Does not Exercise Seatbelt Use: always Sunscreen Use: No Assistive Devices: Walker Review of System A 10 point ROS obtained.Pertinent positives as per HPI Physical Exam Physical Exam: General- fatigued, HEENT - EOMI Neck - supple Lung- No increased work of breathing Abd- soft, mild ttp. - no suprapubic or cva tenderness, ramirez in place with concentrated appearing urine Neuro- AAO*3 Results & Data Vital Signs (Past 12 Hours) Vital Signs Temp Pulse Resp BP Pulse Ox O2 Del Method 07/02/23 13:03 36.9 C 86 20 91/57 L 93 Room Air 07/02/23 12:01 37.0 C 88 15 98/67 L 98 Room Air 07/02/23 08:24 37.5 C 84 20 79/46 L 95 Room Air 07/02/23 07:45 Room Air Laboratory Results Laboratory Results - last 48 hr 07/01/23 07/01/23 07/01/23 13:11 16:44 17:04 WBC 8.31 RBC 4.94 Hgb 13.5 Hct 40.7 MCV 82.4 MCH 27.3 MCHC 33.2 RDW Std Deviation 45.6 RDW Coeff of Tino 15.1 H Plt Count 249 MPV 9.8 Immature Gran % (Auto) 1.0 Neut % (Auto) 82.0 Lymph % (Auto) 12.6 [place] % (Auto) 4.0 Eos % (Auto) 0.2 Baso % (Auto) 0.2 Neut # (Auto) 6.81 H Lymph # (Auto) 1.05 L [place] # (Auto) 0.33 Eos # (Auto) 0.02 Baso # (Auto) 0.02 Immature Gran # (Auto) 0.08 Neutrophils % (Manual) Lymphocytes % (Manual) Metamyelocytes % (Man) Neutrophils # (Manual) Total Absolute Neuts Lymphocytes # (Manual) Total Abs Lymphocytes Metamyelocytes # (Man) Toxic Vacuolation Dohle Bodies Polychromasia Echinocytes PT INR D-Dimer Sodium 135 L Potassium 3.8 Chloride 102 Carbon Dioxide 25 Anion Gap 8 BUN 20 Creatinine 1.14 Est Cr Clr Drug Dosing Not Reportable Est GFR ( Amer) 54.1 Est GFR (Non-Af Amer) 46.7 BUN/Creatinine Ratio 17.5 Glucose 54 L POC Glucose 49 L* 190 H Lactate 2.5 H* Calcium 9.4 Magnesium Iron TIBC Unsaturated IBC Transferrin % Sat Ferritin Total Bilirubin 0.7 AST 41 H ALT 140 H Alkaline Phosphatase 240 H Total Creatine Kinase 14 L Total Protein 6.7 Albumin 3.5 Globulin 3.2 Albumin/Globulin Ratio 1.1 Lipase 6 L Procalcitonin Cancelled Urine Color Urine Appearance Urine pH Ur Specific [place] Urine Protein Urine Glucose (UA) Urine Ketones Urine Blood Urine Nitrite Urine Bilirubin Urine Urobilinogen Ur Leukocyte Esterase Urine WBC (Auto) Urine RBC (Auto) U Hyaline Cast (Auto) U Epithel Cells (Auto) Urine Bacteria (Auto) Adenovirus (PCR) B. pertussis DNA (PCR) B.parapertussis DNA PCR C. pneumoniae DNA (PCR) Coronavirus OC43 (PCR) Coronavirus HKU1 (PCR) Coronavirus 229E (PCR) SARS-CoV-2 (PCR) Coronavirus NL63 (PCR) Enterobacterales (PCR) E. coli (PCR) Human Metapneumovir PCR Influenza Type A (PCR) Influenza Type B (PCR) M. pneumoniae (PCR) Parainfluenza 1 (PCR) Parainfluenza 2 (PCR) Parainfluenza 3 (PCR) Parainfluenza 4 (PCR) RSV (PCR) Entero/Rhino (PCR) mcr-1 Colistin Res Gene PCR blaIMP Car res Gene PCR KPC-Carbap Res Gene PCR blaNDM Car Res Gene PCR OXA-48 Carbapenem Resis Gene (PCR) blaVIM Car Res Gene PCR CTX-M Gene Resistance (PCR) Bld Cult ID Panel PCR 07/01/23 07/01/23 07/01/23 17:16 18:37 18:39 WBC RBC Hgb Hct MCV MCH MCHC RDW Std Deviation RDW Coeff of Tino Plt Count MPV Immature Gran % (Auto) Neut % (Auto) Lymph % (Auto) [place] % (Auto) Eos % (Auto) Baso % (Auto) Neut # (Auto) Lymph # (Auto) [place] # (Auto) Eos # (Auto) Baso # (Auto) Immature Gran # (Auto) Neutrophils % (Manual) Lymphocytes % (Manual) Metamyelocytes % (Man) Neutrophils # (Manual) Total Absolute Neuts Lymphocytes # (Manual) Total Abs Lymphocytes Metamyelocytes # (Man) Toxic Vacuolation Dohle Bodies Polychromasia Echinocytes PT INR D-Dimer Sodium Potassium Chloride Carbon Dioxide Anion Gap BUN Creatinine Est Cr Clr Drug Dosing Est GFR ( Amer) Est GFR (Non-Af Amer) BUN/Creatinine Ratio Glucose POC Glucose 74 Lactate 2.5 H* Calcium Magnesium Iron TIBC Unsaturated IBC Transferrin % Sat Ferritin Total Bilirubin AST ALT Alkaline Phosphatase Total Creatine Kinase Total Protein Albumin Globulin Albumin/Globulin Ratio Lipase Procalcitonin 4.45 H Urine Color Yellow Urine Appearance Cloudy A Urine pH 5.0 Ur Specific [place] 1.016 Urine Protein Trace H Urine Glucose (UA) Negative Urine Ketones Trace H Urine Blood 3+ H Urine Nitrite Positive A Urine Bilirubin Negative Urine Urobilinogen Negative Ur Leukocyte Esterase 1+ H Urine WBC (Auto) 10-30 H Urine RBC (Auto) 0-4 U Hyaline Cast (Auto) 1-5 U Epithel Cells (Auto) 0-5 Urine Bacteria (Auto) 3+ H Adenovirus (PCR) B. pertussis DNA (PCR) B.parapertussis DNA PCR C. pneumoniae DNA (PCR) Coronavirus OC43 (PCR) Coronavirus HKU1 (PCR) Coronavirus 229E (PCR) SARS-CoV-2 (PCR) Coronavirus NL63 (PCR) Enterobacterales (PCR) E. coli (PCR) Human Metapneumovir PCR Influenza Type A (PCR) Influenza Type B (PCR) M. pneumoniae (PCR) Parainfluenza 1 (PCR) Parainfluenza 2 (PCR) Parainfluenza 3 (PCR) Parainfluenza 4 (PCR) RSV (PCR) Entero/Rhino (PCR) mcr-1 [place] Res Gene PCR blaIMP Car res Gene PCR KPC-Carbap Res Gene PCR blaNDM Car Res Gene PCR OXA-48 Carbapenem Resis Gene (PCR) blaVIM Car Res Gene PCR CTX-M Gene Resistance (PCR) Bld Cult ID Panel PCR 07/01/23 07/01/23 07/02/23 20:23 22:47 01:00 WBC RBC Hgb Hct MCV MCH MCHC RDW Std Deviation RDW Coeff of Tino Plt Count MPV Immature Gran % (Auto) Neut % (Auto) Lymph % (Auto) [place] % (Auto) Eos % (Auto) Baso % (Auto) Neut # (Auto) Lymph # (Auto) [place] # (Auto) Eos # (Auto) Baso # (Auto) Immature Gran # (Auto) Neutrophils % (Manual) Lymphocytes % (Manual) Metamyelocytes % (Man) Neutrophils # (Manual) Total Absolute Neuts Lymphocytes # (Manual) Total Abs Lymphocytes Metamyelocytes # (Man) Toxic Vacuolation Dohle Bodies Polychromasia Echinocytes PT INR D-Dimer Sodium Potassium Chloride Carbon Dioxide Anion Gap BUN Creatinine Est Cr Clr Drug Dosing Est GFR ( Amer) Est GFR (Non-Af Amer) BUN/Creatinine Ratio Glucose POC Glucose 125 H Lactate 4.0 H* 3.9 H* Calcium Magnesium Iron TIBC Unsaturated IBC Transferrin % Sat Ferritin Total Bilirubin AST ALT Alkaline Phosphatase Total Creatine Kinase Total Protein Albumin Globulin Albumin/Globulin Ratio Lipase Procalcitonin Urine Color Urine Appearance Urine pH Ur Specific [place] Urine Protein Urine Glucose (UA) Urine Ketones Urine Blood Urine Nitrite Urine Bilirubin Urine Urobilinogen Ur Leukocyte Esterase Urine WBC (Auto) Urine RBC (Auto) U Hyaline Cast (Auto) U Epithel Cells (Auto) Urine Bacteria (Auto) Adenovirus (PCR) B. pertussis DNA (PCR) B.parapertussis DNA PCR C. pneumoniae DNA (PCR) Coronavirus OC43 (PCR) Coronavirus HKU1 (PCR) Coronavirus 229E (PCR) SARS-CoV-2 (PCR) Coronavirus NL63 (PCR) Enterobacterales (PCR) DETECTED A E. coli (PCR) DETECTED A Human Metapneumovir PCR Influenza Type A (PCR) Influenza Type B (PCR) M. pneumoniae (PCR) Parainfluenza 1 (PCR) Parainfluenza 2 (PCR) Parainfluenza 3 (PCR) Parainfluenza 4 (PCR) RSV (PCR) Entero/Rhino (PCR) mcr-1 [place] Res Gene PCR Not Detected blaIMP Car res Gene PCR Not Detected KPC-Carbap Res Gene PCR Not Detected blaNDM Car Res Gene PCR Not Detected OXA-48 Carbapenem Resis Gene (PCR) Not Detected blaVIM Car Res Gene PCR Not Detected CTX-M Gene Resistance (PCR) Not Detected Bld Cult ID Panel PCR See PCR Comment 07/02/23 07/02/23 07/02/23 05:56 05:59 10:02 WBC 31.93 H* D 37.55 H* RBC 3.32 L 3.60 L Hgb 9.3 L D 9.8 L Hct 27.1 L 29.8 L MCV 81.6 82.8 MCH 28.0 27.2 MCHC 34.3 32.9 RDW Std Deviation 46.2 47.6 H RDW Coeff of Tino 15.4 H 15.6 H Plt Count 115 L D 122 L MPV 10.5 10.5 Immature Gran % (Auto) 7.8 Neut % (Auto) 86.5 Lymph % (Auto) 2.7 [place] % (Auto) 2.6 Eos % (Auto) 0.0 Baso % (Auto) 0.4 Neut # (Auto) 32.46 H Lymph # (Auto) 1.03 L [place] # (Auto) 0.97 H Eos # (Auto) 0.00 Baso # (Auto) 0.15 Immature Gran # (Auto) 2.94 H Neutrophils % (Manual) 88 Lymphocytes % (Manual) 6 Metamyelocytes % (Man) 6 Neutrophils # (Manual) 28.10 H Total Absolute Neuts 28.10 H Lymphocytes # (Manual) 1.92 Total Abs Lymphocytes 1.92 Metamyelocytes # (Man) 1.92 H Toxic Vacuolation 2+ 1+ Dohle Bodies 1+ 1+ Polychromasia 1+ Echinocytes 1+ PT 13.2 H INR 1.2 H D-Dimer 94485 H* Sodium 132 L 131 L Potassium 3.9 4.1 Chloride 102 100 Carbon Dioxide 21 22 Anion Gap 9 9 BUN 23 25 H Creatinine 1.67 H D 1.77 H Est Cr Clr Drug Dosing 27.5 25.9 Est GFR ( Amer) 34.1 31.8 Est GFR (Non-Af Amer) 29.4 27.4 BUN/Creatinine Ratio 13.8 14.1 Glucose 129 H 156 H POC Glucose 145 H Lactate 4.0 H* Calcium 7.9 L 8.2 L Magnesium 1.4 L Iron 11 L TIBC 217 L Unsaturated IBC 206 Transferrin % Sat 5 L Ferritin 1838.0 H Total Bilirubin 1.0 AST 511 H ALT 329 H Alkaline Phosphatase 290 H Total Creatine Kinase Total Protein 4.7 L D Albumin 2.5 L Globulin 2.2 L Albumin/Globulin Ratio 1.1 Lipase Procalcitonin 63.68 H Urine Color Urine Appearance Urine pH Ur Specific [place] Urine Protein Urine Glucose (UA) Urine Ketones Urine Blood Urine Nitrite Urine Bilirubin Urine Urobilinogen Ur Leukocyte Esterase Urine WBC (Auto) Urine RBC (Auto) U Hyaline Cast (Auto) U Epithel Cells (Auto) Urine Bacteria (Auto) Adenovirus (PCR) B. pertussis DNA (PCR) B.parapertussis DNA PCR C. pneumoniae DNA (PCR) Coronavirus OC43 (PCR) Coronavirus HKU1 (PCR) Coronavirus 229E (PCR) SARS-CoV-2 (PCR) Coronavirus NL63 (PCR) Enterobacterales (PCR) E. coli (PCR) Human Metapneumovir PCR Influenza Type A (PCR) Influenza Type B (PCR) M. pneumoniae (PCR) Parainfluenza 1 (PCR) Parainfluenza 2 (PCR) Parainfluenza 3 (PCR) Parainfluenza 4 (PCR) RSV (PCR) Entero/Rhino (PCR) mcr-1 Colist[place] Res Gene PCR blaIMP Car res Gene PCR KPC-Carbap Res Gene PCR blaNDM Car Res Gene PCR OXA-48 Carbapenem Resis Gene (PCR) blaVIM Car Res Gene PCR CTX-M Gene Resistance (PCR) Bld Cult ID Panel PCR 07/02/23 07/02/23 07/02/23 10:40 11:47 12:03 WBC RBC Hgb Hct MCV MCH MCHC RDW Std Deviation RDW Coeff of Tino Plt Count MPV Immature Gran % (Auto) Neut % (Auto) Lymph % (Auto) [place] % (Auto) Eos % (Auto) Baso % (Auto) Neut # (Auto) Lymph # (Auto) [place] # (Auto) Eos # (Auto) Baso # (Auto) Immature Gran # (Auto) Neutrophils % (Manual) Lymphocytes % (Manual) Metamyelocytes % (Man) Neutrophils # (Manual) Total Absolute Neuts Lymphocytes # (Manual) Total Abs Lymphocytes Metamyelocytes # (Man) Toxic Vacuolation Dohle Bodies Polychromasia Echinocytes PT INR D-Dimer Sodium Potassium Chloride Carbon Dioxide Anion Gap BUN Creatinine Est Cr Clr Drug Dosing Est GFR ( Amer) Est GFR (Non-Af Amer) BUN/Creatinine Ratio Glucose POC Glucose 230 H Lactate 3.7 H* Calcium Magnesium Iron TIBC Unsaturated IBC Transferrin % Sat Ferritin Total Bilirubin AST ALT Alkaline Phosphatase Total Creatine Kinase Total Protein Albumin Globulin Albumin/Globulin Ratio Lipase Procalcitonin Urine Color Urine Appearance Urine pH Ur Specific [place] Urine Protein Urine Glucose (UA) Urine Ketones Urine Blood Urine Nitrite Urine Bilirubin Urine Urobilinogen Ur Leukocyte Esterase Urine WBC (Auto) Urine RBC (Auto) U Hyaline Cast (Auto) U Epithel Cells (Auto) Urine Bacteria (Auto) Adenovirus (PCR) Not Detected B. pertussis DNA (PCR) Not Detected B.parapertussis DNA PCR Not Detected C. pneumoniae DNA (PCR) Not Detected Coronavirus OC43 (PCR) Not Detected Coronavirus HKU1 (PCR) Not Detected Coronavirus 229E (PCR) Not Detected SARS-CoV-2 (PCR) Not Detected Coronavirus NL63 (PCR) Not Detected Enterobacterales (PCR) E. coli (PCR) Human Metapneumovir PCR Not Detected Influenza Type A (PCR) Not Detected Influenza Type B (PCR) Not Detected M. pneumoniae (PCR) Not Detected Parainfluenza 1 (PCR) Not Detected Parainfluenza 2 (PCR) Not Detected Parainfluenza 3 (PCR) Not Detected Parainfluenza 4 (PCR) Not Detected RSV (PCR) Not Detected Entero/Rhino (PCR) Not Detected mcr-1 Colistin Res Gene PCR blaIMP Car res Gene PCR KPC-Carbap Res Gene PCR blaNDM Car Res Gene PCR OXA-48 Carbapenem Resis Gene (PCR) blaVIM Car Res Gene PCR CTX-M Gene Resistance (PCR) Bld Cult ID Panel PCR 07/02/23 16:57 WBC RBC Hgb Hct MCV MCH MCHC RDW Std Deviation RDW Coeff of Tino Plt Count MPV Immature Gran % (Auto) Neut % (Auto) Lymph % (Auto) [place] % (Auto) Eos % (Auto) Baso % (Auto) Neut # (Auto) Lymph # (Auto) [place] # (Auto) Eos # (Auto) Baso # (Auto) Immature Gran # (Auto) Neutrophils % (Manual) Lymphocytes % (Manual) Metamyelocytes % (Man) Neutrophils # (Manual) Total Absolute Neuts Lymphocytes # (Manual) Total Abs Lymphocytes Metamyelocytes # (Man) Toxic Vacuolation Dohle Bodies Polychromasia Echinocytes PT INR D-Dimer Sodium Potassium Chloride Carbon Dioxide Anion Gap BUN Creatinine Est Cr Clr Drug Dosing Est GFR ( Amer) Est GFR (Non-Af Amer) BUN/Creatinine Ratio Glucose POC Glucose 283 H Lactate Calcium Magnesium Iron TIBC Unsaturated IBC Transferrin % Sat Ferritin Total Bilirubin AST ALT Alkaline Phosphatase Total Creatine Kinase Total Protein Albumin Globulin Albumin/Globulin Ratio Lipase Procalcitonin Urine Color Urine Appearance Urine pH Ur Specific [place] Urine Protein Urine Glucose (UA) Urine Ketones Urine Blood Urine Nitrite Urine Bilirubin Urine Urobilinogen Ur Leukocyte Esterase Urine WBC (Auto) Urine RBC (Auto) U Hyaline Cast (Auto) U Epithel Cells (Auto) Urine Bacteria (Auto) Adenovirus (PCR) B. pertussis DNA (PCR) B.parapertussis DNA PCR C. pneumoniae DNA (PCR) Coronavirus OC43 (PCR) Coronavirus HKU1 (PCR) Coronavirus 229E (PCR) SARS-CoV-2 (PCR) Coronavirus NL63 (PCR) Enterobacterales (PCR) E. coli (PCR) Human Metapneumovir PCR Influenza Type A (PCR) Influenza Type B (PCR) M. pneumoniae (PCR) Parainfluenza 1 (PCR) Parainfluenza 2 (PCR) Parainfluenza 3 (PCR) Parainfluenza 4 (PCR) RSV (PCR) Entero/Rhino (PCR) mcr-1 Colistin Res Gene PCR blaIMP Car res Gene PCR KPC-Carbap Res Gene PCR blaNDM Car Res Gene PCR OXA-48 Carbapenem Resis Gene (PCR) blaVIM Car Res Gene PCR CTX-M Gene Resistance (PCR) Bld Cult ID Panel PCR Diagnostic Findings Microbiology 07/01/23 18:37 Urine,Straight Cath Urine Culture - Preliminary Gram negative bacilli Gamma strep not enterococcus 07/01/23 20:23 Blood Aerobic Blood Culture - Preliminary Gram negative bacilli 07/01/23 20:23 Blood Aerobic Blood Culture - Preliminary Gram negative bacilli Medications Administered Home Medications Medication Instructions Recorded Confirmed Last Taken aspirin 81 mg tablet,delayed 81 mg PO QAM 10/24/21 07/01/23 06/18/23 release fluticasone fur. 100 mcg-umeclid 1 inh inhalation DAILY #28 ea 02/11/22 07/01/23 06/17/23 62.5 mcg-vilant 25 mcg inhalat.powder (Trelegy Ellipta) ezetimibe 10 mg tablet (Zetia) 10 mg PO QAM #90 tabs 09/18/22 07/01/23 07/01/23 metoprolol succinate 100 mg 100 mg PO QAM #90 tabs 09/18/22 07/01/23 07/01/23 tablet,extended release 24 hr pantoprazole 40 mg tablet,delayed 40 mg PO BID #180 tabs 09/18/22 07/01/23 07/01/23 08:00 release rosuvastatin 40 mg tablet 40 mg PO QAM #90 tabs 09/18/22 07/01/23 07/01/23 Vitamin B 12 Cypo Value 200+20 1,000 mcg PO DAILY 03/25/23 07/01/23 07/01/23 buspirone 10 mg tablet 10 mg PO TID 03/25/23 07/01/23 07/01/23 08:00 famotidine 20 mg tablet 20 mg PO BID 03/25/23 07/01/23 07/01/23 08:00 isosorbide mononitrate 30 mg 30 mg PO QAM 03/25/23 07/01/23 07/01/23 tablet,extended release 24 hr ergocalciferol (vitamin D2) 1,250 50,000 unit PO WK 06/18/23 07/01/23 06/27/23 mcg (50,000 unit) capsule folic acid 1 mg tablet 1 mg PO QAM 06/18/23 07/01/23 07/01/23 insulin aspart U-100 100 unit/mL See Rx Instructions .Route 06/24/23 07/01/23 Unknown subcutaneous solution (Novolog .COMPLEX #10 mL U-100 Insulin aspart) insulin glargine 100 unit/mL 20 unit (0.2 mL) SC QAM #10 mL 06/24/23 07/01/23 Unknown subcutaneous solution (Lantus U-100 Insulin) lidocaine 5 % topical patch 0 patch topical DAILY PRN pain 06/26/23 07/01/23 Unknown (Lidoderm) metformin 500 mg tablet 1,000 mg PO BID 06/26/23 07/01/23 07/01/23 08:00 diclofenac sodium 1 % topical gel 2 g topical QID PRN Pain #100 grams 06/29/23 07/01/23 Unknown duloxetine 30 mg capsule,delayed 30 mg PO QAM #90 caps 06/29/23 07/01/23 07/01/23 release tramadol 50 mg tablet 50 mg PO TID PRN pain #20 tabs 06/29/23 07/01/23 Unknown acetaminophen 500 mg tablet 1,000 mg PO DIRECTED PRN 07/01/23 07/01/23 Unknown (Tylenol Extra Strength) PAIN/FEVER lisinopril 10 mg tablet 10 mg PO QAM 07/01/23 07/01/23 07/01/23 Active Medications Generic Name Dose Route Start Last Admin Trade Name Freq PRN Reason Stop Dose Admin Aspirin 81 mg 07/02/23 09:00 07/02/23 08:57 Aspirin 81 Mg Ectab PO 08/01/23 08:59 81 mg QAM LEON Administration Buspirone HCl 10 mg 07/01/23 21:33 07/02/23 13:43 Buspirone 5 Mg Tab PO 07/31/23 21:32 10 mg TID LEON Administration Docusate Sodium 100 mg 07/01/23 21:00 07/02/23 08:58 Docusate Sodium 100 Mg Cap PO 07/31/23 20:59 100 mg BID LEON Administration Duloxetine HCl 30 mg 07/02/23 09:00 07/02/23 08:57 Duloxetine Hcl 30 Mg Cap PO 08/01/23 08:59 30 mg QAM LEON Administration Famotidine 20 mg 07/01/23 21:33 07/02/23 08:57 Famotidine 20 Mg Tab PO 07/31/23 21:32 20 mg BID LEON Administration Fluticasone Furoate 1 puffs 07/02/23 09:00 07/02/23 08:58 Fluticasone Furoate 100mcg 14 Puffs/Inhaler INH 08/01/23 08:59 1 puffs DAILY LEON Administration Protocol Sodium Chloride 1,000 mls @ 100 mls/hr 07/02/23 14:00 07/02/23 13:43 Nss IV 08/01/23 13:59 100 mls/hr .Q10H LEON Administration Piperacillin Sod/Tazobactam 100 mls @ 25 mls/hr 07/02/23 18:00 07/02/23 17:36 Sod 4.5 gm/ Dextrose IV 07/12/23 17:59 25 mls/hr Q8H LEON Administration Protocol Insulin Aspart 0 units 07/02/23 16:30 07/02/23 17:26 Insulin Aspart Per Unit Charge SC 08/01/23 16:29 9 units ACHS LEON Administration Isosorbide Mononitrate 30 mg 07/02/23 09:00 07/02/23 08:57 Isosorbide [place] Extended Rel 30 Mg Tabcr PO 08/01/23 08:59 30 mg QAM LEON Administration Metoprolol Succinate 100 mg 07/02/23 09:00 07/02/23 09:00 Metoprolol Succ 50mg Ext Rel Tab PO 08/01/23 08:59 Not Given QAM LEON Pantoprazole Sodium 40 mg 07/01/23 21:33 07/02/23 08:57 Pantoprazole 40 Mg Tab PO 07/31/23 21:32 40 mg BID LEON Administration Polyethylene Glycol 17 gm 07/01/23 21:00 07/02/23 08:59 Polyethylene (Miralax) 17 Gm Pack PO 07/31/23 20:59 17 gm BID LEON Administration Umeclidinium/Vilanterol 1 puffs 07/02/23 09:00 07/02/23 08:58 Umeclidinium/Vilanterol 62.5/25mcg 7 Puffs/Inhaler INH 08/01/23 08:59 1 puffs DAILY LEON Administration Protocol
[2023-07-02] MEDS ORDERED: CEFEPIME 2,000 MG in SYRINGE 0 ML IV ONE (14:00)
[2023-07-02] MEDS ORDERED: metroNIDAZOLE 500 MG/100 ML BAG IV SCH (14:00)
[2023-07-02] MEDS ORDERED: PHARMACY GLYCEMIC MGMT CONSULT PRN (14:40)
--- NOTE | 2023-07-02 15:30 | Electrocardiogram Report ---
Test Reason : Blood Pressure : / mmHG Vent. Rate : 083 BPM Atrial Rate : 083 BPM P-R Int : 140 ms QRS Dur : 068 ms QT Int : 380 ms P-R-T Axes : 053 019 058 degrees QTc Int : 446 ms Normal sinus rhythm Diffuse Minor Normal sinus rhythm Abnormal ECG When compared with ECG of 01-JUL-2023 17:51, Minor Nonspecific ST abnormality slightly more pronounced Confirmed by Bear Ruiz ([id number]) on 07/02/2023 3:30:18 PM Referred By: REFERRED SELF Confirmed By:Bear Ruiz
[2023-07-02] MEDS ORDERED: LANTUS PER UNIT CHARGE SC SCH (17:30)
[2023-07-02] MEDS: PIPER/TAZO 4.5g in D5W MINI-B 100 ML IV SCH (17:36)
[2023-07-02] MEDS ORDERED: PIPER/TAZO 4.5g in D5W MINI-B 100 ML IV SCH (18:00)
[2023-07-02] MEDS ORDERED: cefTRIAXone SODIUM 2,000 MG in DEXTROSE 5 % MINI-B 50 ML IV SCH (19:00)
[2023-07-02] MEDS: HEPARIN SOD 5,000 UNIT/0.5 ML VIAL SQ SCH (19:48)
[2023-07-03] MEDS ORDERED: CEFEPIME 1,000 MG in SYRINGE 0 ML IV SCH (02:00)
[2023-07-03] MEDS: PIPER/TAZO 4.5g in D5W MINI-B 100 ML IV SCH ×3 (02:59→17:27)
[2023-07-03] MEDS ORDERED: SODIUM CHLORIDE 0.9% 1,000 ML IV ONE (03:08)
[2023-07-03] MEDS ORDERED: ALBUMIN 25% 25 GM/100 ML VIAL IV ONE (03:09)
--- NOTE | 2023-07-03 07:35 | Hospitalist Progress Note ---
Date of Service July 03, 2023 Assessment & Plan (1) Sepsis: Plan: Patient presenting for re-admission after recent discharge home rather than rehab and sustained a fall out of bed when trying to get up to use the bathroom. -To note, patient w/ urinary retention/SHERRIE appearing last admission and had ramirez placed which was discontinued prior to discharge. Did have Leukocytosis but did not appear to be getting significant steroids during that time WBC 8.3k on admission but w/ elevated lactic to 4 and procal 4.45 and UA obtained which appeared infectious and Ceftriaxone was initiated Labs reviewed this morning and WBC jumped to 31.9k from 8.3k, procalcitonin 63.68 Blood cultures on admission prior to initiation of abx obtained Lactic decreased on repeat however patient w/ BP 70s/40s this morning and slight confusion Noting was given 1L NSS and 1L LR on admission, continued D5W overnight for hypoglycemia on admission (to 50s) when normally patient hyperglycemic on admission (A1c >11) suspicious for sepsis Asked RN to provide 250cc bolus x 1 now, repeated lactic and blood work given significant change and WBC worsened and lactic 4 again Additional 1L NSS bolus provided, BP on repeat following / w/ improvement in mentation Blood cultures positive Ecoli/enterobacterales as initially broadened coverage to Zosyn to cover abdominal as well as urine for noted proctitis on CTAP on admission but per discussion w/ ID (consult placed) was going to switch to Cefepime/Flagyl for susp enterococcus but confirmed w/ pharmacy PCR enterobacterales + from the ecoli and not true enterococcus (not likely to be in urine as not in blood on PCR) and decision to continue Zosyn IV for now BSGs improving this afternoon, discontinued further D5W as eating/tolerating PO and BSG to 230s Changed IVF to NSS @ 100cc/hr for now and will monitor Continue to hold antihypertensive agents (lisinopril stopped last admission for hyperkalemia) Follow cultures/repeat labs, appreciate ID assistance Transferred to monitored bed for closer monitoring given hypotension/sepsis/above 07/03 WBC improved 37.5k --> 28.1k, afebrile. Procal 63.6--> 42.6 - Urine cx w/ ecoli/gamma strep, blood cultures w/ GNB (Ecoli on PCR/enterobacterales) - Remains on Zosyn IV as discussed w/ infectious disease 07/02 BP 81/46 overnight, given 1L NSS bolus and albumin IV overnight by resident and BP systolic in the 90s this morning but mentating, doing much better. Continue NSS @ 100cc/hr for now BP currently 104/62 however if becomes hypotensive again may require presser support but appearing stable at present time LFTs improving, suspect shock liver from significant hypotension from sepsis Renal function remains elevated, ramirez in place for retention but decreased output but clear yellow urine in bag. Discussed w/ supervising provider and will monitor in AM/no need for nephrology consultation at present but will monitor Mag wnl on repeat PT/OT consults pending --> STRONGLY ENCOURAGING PATIENT FOR REHAB AT ME DVT proph: SCDs, Heparin SQ added 07/02 Updated daughter on phone this morning (she plans on visiting this afternoon) Monitor labs/exam on repeat (2) Bacteremia: Plan: +blood cultures/procalcitonin as above IV abx as outlined, monitor exam/repeat labs, ID consultation (3) Acute UTI (urinary tract infection): Plan: suspect 2nd to retention vs ramirez placement last admission for such vs retention leading to UTI. Does not appear UA checked during visit w/ retention UA w/ ecoli, gamma strep Zosyn as above to cover, +blood cultures Maintain ramirez Likely maintain Ramirez at al and consider voiding trial in f/u (4) Proctitis: Plan: Noted on CTAP, suspect constipation [employer] presenting like this No recent diarrhea reported (admitted recent w/ constipation -- suspect proctitis 2nd to constipation) Enema in ER w/ large BM w/ reported improvement but did have lower abdominal cramping on exam 07/02, concerning for abdominal infection w/ elevated WBC as above/CTAP on admission Changed IV abx to Zosyn 07/02 for above, continue bowel regimen Passing gas but no BM today. ?underlying gastroparesis w/ her uncontrolled DM. Could consider reglan (5) Fall: Plan: multifactorial in setting of repeated hospitalizations/cervical radiculopathy, now w/ sepsis/bacteremia 2nd to urine/abdominal source suspected CT head negative for acute CVA/fracture Imaging negative for acute fracture (noting possible need for xray of R elbow and will monitor) Tx as outlined for bacteremia/infection SCDs ordered for DVT prophylaxis, Hgb dropped but suspected 2nd to IVF resuscitation/dilutional from IVF on admission (no bleeding reported) Therapy evaluations to be undertaken and discussed rehab/SNF at discharge given significant infection and weakness to require inpatient rehabilitation (rec [facility] if needed, ENCOURAGED NOT TO GO HOME - also discussed w/ daughter on phone 07/03) (6) Elevated LFTs: Plan: Mild elevation on admission, significant elevation today. CK wnl (was down for several hours) Suspected 2nd to fall/also w/ hypotension and possible shocked liver given BP 70/40s this morning and significant jump (TB wnl) Denied RUQ pain on exam. Is s/p cholecystectomy in past TB wnl LFTs improving, suspect 2nd to hypotension/shocked liver (imaging did note prominent CBD/unchanged from prior (trace perihepatic ascites)) Monitor in AM Avoid nephrotoxic medications/avoid anti-HTN medications (metoprolol ordered w/ hold parameters) (7) Hypoglycemia: Plan: Noted to be hypoglycemic at 49 at the time of admission . Significantly uncontrolled DM as outpatient however at baseline but recent poor PO intake due to constipation/admission for such w/ n/v concerning for infection as above Given 1 amp Dextrose in ER, continued D5W overnight BSgs improved/PO intake and discontinued D5W and placed on NSS BSGs much improved/pharmacy consulted for glycemic management in complex patient/typically uncontrolled DM at baseline (8) Lactate blood increase: Plan: Lactated elevated at 2.5, still at 2.5 and worsened to 4 on third repeat --> 3.9 suspected 2nd to infection (also on metformin/may need dc'd at dc, hypotension/shock) Repeated AM 07/02 elevated to 4 and IVF bolus 250cc + additional 1L provided . Trended down on repeat Abx changed as above, no further abdominal pain reported today w/ her GI discomfort/chronic issues w/ bowels/possible gastroparesis, ?stopping metformin at dc (9) Elevated procalcitonin: Plan: initially 4.45-->63.6 on repeat. 2nd to bacteremia/sepsis as above from urine/proctitis suspected abx as above (10) Abdominal pain: Plan: Suspect combination constipation/proctitis/uti as above Ramirez placed w/ improvement in pain reported but ongoing issues --> see above IMPROVING THIS AFTERNOON w/ initiation of treatment (11) Urinary retention: Plan: Recurrent; also noted on last admission and placed in ER on admit w/ 1L output CTAP w/ b/l hydronephrosis (likely due to significant bladder distension prior to ramirez placement) but does have some low back pain (no overt CVA tenderness but ?pyelo) Cr elevation today, combination infection/hypotension. IVF/resus as above and renal dose meds/avoid nephrotoxins Maintain ramirez catheter for now ?ATN from hypotension should do voiding trial prior to discharge with Urology consult if she continues to retain Monitor in AM (12) Right leg pain: Plan: Pain in the proximal femur/right hip on exam , likely 2nd to fall/sepsis as above. CK wnl on check. Imaging negative. ?more R groin pain from UTI? (13) CAD (coronary artery disease): Plan: Hx CAD s/p PCI (LAD, Cx, RCA). 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 Distal esophageal thickening noted on admit imaging (15) Acute urinary retention: Plan: ?2nd to constipation vs ramirez catheter placement recently vs uti ramirez placement, maintained. abx as outlined. would continue ramirez at dc/voiding trial (16) Hypomagnesemia: Plan: low, IV replacement ordered and normalized on repeat monitor/?po supplementation Plan continued inpatient stay, continue abx/monitor cxs, ID on consult and following therapy evaluations to be undertaken and patient SHOULD GO TO REHAB/SNF at discharge. Updated daughter Karen on phone AM 07/02 (she is visiting this afternoon, agrees her mom sounds much better as well) Admission and Anticipated Discharge Date Admission Date: July 02, 2023 Supervising Physician Co-Signing Physician Notes The patient was not seen by me. The chart was reviewed. Case discussed with JAVI Woods. Agree with assessment and plan Subjective Eval this morning, sitting up in bed. Passing gas but no further BM. Abdominal pain much improved. WBC trending down/afebrile. Procal improving. She notes she is wanting to go home, however further discussion w/ patient (and daughter Karen on the phone) about significant illness and weakness and STRONG recommendation NOT to go home at discharge despite caregivers Claire reports having. She does endorse understanding. Urine output remains low but BPs slightly improved and stable 91/58. Discussed suspect perfusion w/ low BP and will monitor urine output w/ BPs. If no improvement/worsened renal function can consider consultation w/ nephrology. NO chest pain/shortness of breath, abdominal pain, nausea/vomiting at this time. Questions/concerns addressed at this time. Physical Exam 2 Physical Exam: General: chronically ill appearing female appearing MUCH better than yesterday morning, more awake/alert, talkative, less confusion HEENT: head atraumatic, normocephalic, mm dry, trachea midline Resp: diminished in the bases, no w/c/r, on room air CV: RRR, no significant m/r/g (quiet HS), 1+ b/l LE pitting edema, calves nontender/pulses palpable GI: +BS, slight distension/fullness, DECREASED tenderness across lower abdominal peraza, no guarding/rigidity : ramirez with concentrated but yellow urine draining (about 50-60cc in bag at present) MSK/Neuro: no slurred speech/facial droop, following commands abrasions noted from fall, additional to R elbow Results & Data Results & Data Vital Signs (Past 12 Hours) Vital Signs Temp Pulse Resp BP BP Pulse Ox O2 Del Method 07/03/23 07:22 36.9 C 70 19 91/58 L 97 Room Air 07/03/23 05:25 76 97/62 L 07/03/23 02:42 36.4 C L 77 18 81/46 L 97 Room Air 07/03/23 02:00 07/02/23 22:57 36.8 C 75 18 91/59 L 96 Room Air O2 Del Method 07/03/23 07:22 07/03/23 05:25 07/03/23 02:42 07/03/23 02:00 Room Air 07/02/23 22:57 Laboratory Results 07/03/23 07:24 07/03/23 07:24 Procalcitonin improved from 63.6--> 42.6 LFTs improving, AST 158, ALT 194, ALP 252 MAgnesium wnl at 2.3 PG Care Time/CCT Total # of Minutes Spent Total Time Spent with Patient: Total time spent is greater than 50% in coordination of care (as documented) at patient's floor/unit and/or counseling patient: Coding Level of Care Code 36806 SUB INP/OBS CARE 3/50MIN Diagnoses Sepsis A41.9 Bacteremia R78.81 Acute UTI (urinary tract infection) N39.0 Proctitis K62.89 Fall W19.XXXA Elevated LFTs R79.89 Hypoglycemia E16.2 Lactate blood increase R79.89 Elevated procalcitonin R79.89 Abdominal pain R10.9 Urinary retention R33.9 Right leg pain M79.604 Coronary artery disease involving [place] coronary artery of [place] heart, angina presence unspecified I25.10 Associated angina: angina presence unspecified Coronary Disease-Associated Artery/Lesion type: [place] artery [place] vs. transplanted heart: [place] heart Mckeon's esophagus without dysplasia K22.70 Mckeon's esophagus type: without dysplasia Acute urinary retention R33.8 Hypomagnesemia E83.42 (13) CAD (coronary artery disease) Associated angina: angina presence unspecified Coronary Disease-Associated Artery/Lesion type: [place] artery [place] vs. 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
[2023-07-03] MEDS: FAMOTIDINE 20 MG TAB PO SCH ×2 (07:39→20:00)
[2023-07-03] MEDS: busPIRone 5 MG TAB PO SCH ×3 (07:39→20:00)
[2023-07-03] MEDS: ASPIRIN 81 MG ECTAB PO SCH (07:40)
[2023-07-03] MEDS: ISOSORBIDE MONO EXTENDED REL 30 MG TABCR PO SCH (07:40)
[2023-07-03] MEDS: HEPARIN SOD 5,000 UNIT/0.5 ML VIAL SQ SCH ×2 (07:40→20:00)
[2023-07-03] MEDS: PANTOprazole 40 MG TAB PO SCH ×2 (07:40→20:00)
[2023-07-03] MEDS: METOPROLOL SUCC 50MG EXT REL TAB PO SCH (07:41)
[2023-07-03] MEDS: DULoxetine HCL 30 MG CAP PO SCH (07:41)
[2023-07-03] MEDS: UMECLIDINIUM/VILANTEROL 62.5/25MCG 7 PUFFS/INHALER INH SCH (07:41)
[2023-07-03] MEDS: FLUTICASONE FUROATE 100MCG 14 PUFFS/INHALER INH SCH (07:41)
[2023-07-03] MEDS: DOCUSATE SODIUM 100 MG CAP PO SCH ×2 (07:44→20:05)
[2023-07-03] MEDS: POLYETHYLENE (MIRALAX) 17 GM PACK PO SCH ×2 (07:44→20:05)
[2023-07-03 08:19] LABS: Prothrombin Time 11.3 Seconds (9.0-12.0)
[2023-07-03 08:32] LABS: Albumin Level 2.8 gm/dl (3.4-5.0); Bilirubin,Total 0.5 mg/dl (0.2-1.0); Calcium 7.5 mg/dl (8.6-10.3); Magnesium 2.3 mg/dl (1.7-2.4); Potassium 3.9 mmol/L (3.5-5.1)
[2023-07-03 08:35] LABS: Hematocrit (blood only) 25.1 % (37.0-47.0); Hemoglobin 8.4 g/dl (12.0-16.0); Mean Corpuscular Hemoglobin 27.4 pg (25.0-34.0); Mean Corpuscular Hgb Conc 33.5 g/dL (32.0-36.0); Mean Corpuscular Volume 81.8 fL (80.0-100.0); Mean Platelet Volume 10.7 fL (9.4-12.4); Platelet Count 91 K/uL (130-400); RDW Standard Deviation 47.8 fL (36.4-46.3); Red Blood Count 3.07 M/uL (4.20-5.40)
[2023-07-03 08:36] LABS: Basophils # (auto) 0.08 K/uL (0.00-0.20); Basophils % (auto) 0.3 %; Dohle Bodies 1+; Echinocytes 1+; Eosinophils # (auto) 0.09 K/uL (0.00-0.50); Eosinophils % (auto) 0.3 %; Hypersegmented Neutrophils 1+; Immature Granulocytes # (auto) 1.33 K/uL (0.01-0.20); Immature Granulocytes % (auto) 4.7 %; Lymphocytes # (auto) 1.78 K/uL (1.20-3.40); Lymphocytes % (auto) 6.3 %; Monocytes # (auto) 0.86 K/uL (0.11-0.59); Monocytes % (auto) 3.1 %; Neutrophils # (auto) 23.96 K/uL (1.40-6.50); Neutrophils % (auto) 85.3 %
[2023-07-03] MEDS: LANTUS PER UNIT CHARGE SC SCH (08:40)
[2023-07-03] MEDS: INSULIN ASPART PER UNIT CHARGE SC SCH ×4 (08:40→21:04)
[2023-07-03 08:46] LABS: Albumin Globulin Ratio 1.3 (0.9-2); BUN Creatinine Ratio 15.5 (10-20); Creatinine Clr Calc Pharmacy 23.8 ml/min; Est GFR (African American) 28.6 ml/min; Est GFR (Non-African American) 24.7 ml/min; Globulin 2.2 gm/dl (2.5-4.0)
[2023-07-03] MEDS: SODIUM CHLORIDE 0.9% 1,000 ML IV SCH ×2 (09:29→17:27)
--- NOTE | 2023-07-03 11:14 | Pharmacy Report ---
Pharmacy Glycemic Short Note 2 - Date of Service July 03, 2023 - Glycemic Short BSG Results (Last 24 hours): 07/02/23 07/02/23 07/02/23 11:47 16:57 20:39 Glucose POC Glucose 230 H 283 H 241 H 07/03/23 07/03/23 07:24 08:18 Glucose 92 POC Glucose 103 H OUTPATIENT ANTIDIABETIC REGIMEN: * Lantus 20 units SC AM * Novolog SSI - CF 20, CR 5 * Metformin 1 g PO BIDM * HbA1c: 11.5% (05/15/23) ASSESSMENT: * 78 yo F admitted on 07/01/23 secondary to sepsis. Pharmacy has been consulted to assist with inpatient glycemic management. Patient is a Type 2 diabetic as an outpatient. Please refer to outpatient regimen and most recent HbA1c above. * BSG upon admission was low at 49 mg/dL. Unknown when patient's last dose of insulin was prior to admission. Basal insulin was held yesterday, and BSGs were [phone] mg/dL. Pharmacy was consulted when BSG was 283 mg/dL last evening. Of note, patient was on D5NS @ 80 mL/hr. Gave 10 units of basal and tightened Novolog. * Fasting BSG was 103 mg/dL this AM. Will continue with 10 units of basal per day. No changes to Novolog. If fasting drops below 100 mg/dL tomorrow, will need to reduce basal dose. PLAN FOR INPATIENT GLYCEMIC CONTROL: * Hold outpatient oral diabetes medications * Basal insulin * Lantus 10 units SC AM * Bolus insulin * NovoLog per scale ACHS or Q6hrs while NPO * Goal Range: Low 110 mg/dL - High 140 mg/dL * Correction Factor: 25 mg/dL/unit * Nutritional / Prandial insulin per carb ratio of 1 unit per 8 grams CHO consumed
[2023-07-04] MEDS: PIPER/TAZO 4.5g in D5W MINI-B 100 ML IV SCH ×3 (03:00→17:31)
[2023-07-04] MEDS: SODIUM CHLORIDE 0.9% 1,000 ML IV SCH (03:05)
[2023-07-04 05:37] LABS: Albumin Globulin Ratio 1.1 (0.9-2); Albumin Level 2.6 gm/dl (3.4-5.0); BUN Creatinine Ratio 18.6 (10-20); Bilirubin,Total 0.5 mg/dl (0.2-1.0); Calcium 7.7 mg/dl (8.6-10.3); Creatinine Clr Calc Pharmacy 25.9 ml/min; Est GFR (African American) 31.8 ml/min; Est GFR (Non-African American) 27.4 ml/min; Globulin 2.3 gm/dl (2.5-4.0); Magnesium 2.2 mg/dl (1.7-2.4); Total Protein 4.9 gm/dl (6.0-8.3)
[2023-07-04] MEDS: traMADol HCL 50 MG TABLET PO PRN (06:37)
[2023-07-04 07:17] LABS: Hematocrit (blood only) 28.7 % (37.0-47.0); Hemoglobin 9.2 g/dl (12.0-16.0); Mean Corpuscular Hemoglobin 27.1 pg (25.0-34.0); Mean Corpuscular Hgb Conc 32.1 g/dL (32.0-36.0); Mean Corpuscular Volume 84.4 fL (80.0-100.0); Platelet Count 98 K/uL (130-400); RDW Standard Deviation 49.8 fL (36.4-46.3); White Blood Count 23.65 K/ul (4.8-10.8)
[2023-07-04 07:18] LABS: Basophils # (auto) 0.08 K/uL (0.00-0.20); Basophils % (auto) 0.3 %; Echinocytes 2+; Eosinophils % (auto) 1.3 %; Immature Granulocytes # (auto) 0.13 K/uL (0.01-0.20); Immature Granulocytes % (auto) 0.5 %; Lymphocytes # (auto) 1.56 K/uL (1.20-3.40); Lymphocytes % (auto) 6.6 %; Monocytes # (auto) 0.38 K/uL (0.11-0.59); Monocytes % (auto) 1.6 %; Neutrophils % (auto) 89.7 %
[2023-07-04] MEDS: INSULIN ASPART PER UNIT CHARGE SC SCH ×4 (08:32→20:26)
[2023-07-04] MEDS: busPIRone 5 MG TAB PO SCH ×3 (08:39→19:55)
[2023-07-04] MEDS: LANTUS PER UNIT CHARGE SC SCH (08:39)
[2023-07-04] MEDS: FAMOTIDINE 20 MG TAB PO SCH ×2 (08:39→19:54)
[2023-07-04] MEDS: HEPARIN SOD 5,000 UNIT/0.5 ML VIAL SQ SCH ×2 (08:39→19:54)
--- NOTE | 2023-07-04 08:39 | Hospitalist Progress Note ---
Date of Service July 04, 2023 Assessment & Plan (1) Sepsis: Plan: Patient presenting for re-admission after recent discharge home rather than rehab and sustained a fall out of bed when trying to get up to use the bathroom. -To note, patient w/ urinary retention/SHERRIE appearing last admission and had ramirez placed which was discontinued prior to discharge. Did have Leukocytosis but did not appear to be getting significant steroids during that time WBC 8.3k on admission but w/ elevated lactic to 4 and procal 4.45 and UA obtained which appeared infectious and Ceftriaxone was initiated Labs reviewed this morning and WBC jumped to 31.9k from 8.3k, procalcitonin 63.68 Blood cultures on admission prior to initiation of abx obtained Lactic decreased on repeat however patient w/ BP 70s/40s this morning and slight confusion Noting was given 1L NSS and 1L LR on admission, continued D5W overnight for hypoglycemia on admission (to 50s) when normally patient hyperglycemic on admission (A1c >11) suspicious for sepsis Asked RN to provide 250cc bolus x 1 now, repeated lactic and blood work given significant change and WBC worsened and lactic 4 again Additional 1L NSS bolus provided, BP on repeat following /57 w/ improvement in mentation Blood cultures positive Ecoli/enterobacterales as initially broadened coverage to Zosyn to cover abdominal as well as urine for noted proctitis on CTAP on admission but per discussion w/ ID (consult placed) was going to switch to Cefepime/Flagyl for susp enterococcus but confirmed w/ pharmacy PCR enterobacterales + from the ecoli and not true enterococcus (not likely to be in urine as not in blood on PCR) and decision to continue Zosyn IV for now BSGs improving this afternoon, discontinued further D5W as eating/tolerating PO and BSG to 230s Changed IVF to NSS @ 100cc/hr and continued to hold anti-HTN agents/metoprolol w/ hold parameters (lisinopril dc last admit for sherrie/hyperkalemia) Urine/blood cultures, ID consulted Transferred to monitored bed for closer monitoring given hypotension/sepsis/above 07/03 WBC improved 37.5k --> 28.1k, afebrile. Procal 63.6--> 42.6 - Urine cx w/ ecoli/gamma strep, blood cultures w/ GNB (Ecoli on PCR/enterobacterales) - Remains on Zosyn IV as discussed w/ infectious disease 07/02 BP 81/46 overnight, given 1L NSS bolus and albumin IV overnight by resident and BP systolic in the 90s this morning but mentating, doing much better. Continue NSS @ 100cc/hr for now BP on repeat 104/62 however if becomes hypotensive again may require presser support but appeared stable at present time LFTs improving, suspect shock liver from significant hypotension from sepsis Renal function remains elevated, ramirez in place for retention but decreased output but clear yellow urine in bag. Updated daughter on phone this morning (she plans on visiting this afternoon) 07/04 Blood cultures w/ Ecoli, urine cx ecoli/gamma strep not enterococcus Remains on Zosyn IV as above, WBC trending down. BP improved, 152/80 this morning UOP IMPROVED significantly, clear yellow in bag. Renal function improved on repeat labs. Remains with ramirez in place LFTs w/ AST/ALT trending down. ALp remaining elevated. ?congestion w/ volume resuscitation. PT/OT consults pending --> STRONGLY ENCOURAGING PATIENT FOR REHAB AT DC DVT proph: SCDs, Heparin SQ (added 07/02) (2) Bacteremia: Plan: +blood cultures/procalcitonin as above IV abx as outlined, monitor exam/repeat labs, ID consultation (3) Acute UTI (urinary tract infection): Plan: suspect 2nd to retention vs ramirez placement last admission for such vs retention leading to UTI. Does not appear UA checked during visit w/ retention UA w/ ecoli, gamma strep Zosyn as above to cover, +blood cultures Maintain ramirez for now, possible voiding trial prior to dc vs outpt f/u urology (4) Proctitis: Plan: Noted on CTAP, suspect constipation [employer] presenting like this No recent diarrhea reported (admitted recent w/ constipation -- suspect proctitis 2nd to constipation) Enema in ER w/ large BM w/ reported improvement but did have lower abdominal cramping on exam 07/02, concerning for abdominal infection w/ elevated WBC as above/CTAP on admission Changed IV abx to Zosyn 07/02 for above, continue bowel regimen Passing gas but no BM 07/03 --> Good BM reported morning 07/04 ?underlying gastroparesis w/ her uncontrolled DM. Could consider reglan (5) Fall: Plan: multifactorial in setting of repeated hospitalizations/cervical radiculopathy, now w/ sepsis/bacteremia 2nd to urine/abdominal source suspected CT head negative for acute CVA/fracture Imaging negative for acute fracture (noting possible need for xray of R elbow and will monitor) Tx as outlined for bacteremia/infection SCDs ordered for DVT prophylaxis, Hgb dropped but suspected 2nd to IVF resuscitation/dilutional from IVF on admission (no bleeding reported) Therapy evaluations to be undertaken and discussed rehab/SNF at discharge given significant infection and weakness to require inpatient rehabilitation (rec [place] [facility] if needed, ENCOURAGED NOT TO GO HOME - also discussed w/ daughter on phone 07/03) (6) Elevated LFTs: Plan: Mild elevation on admission, significant elevation today. CK wnl (was down for several hours) Suspected 2nd to fall/also w/ hypotension and possible shocked liver given BP 70/40s this morning and significant jump (TB wnl) Denied RUQ pain on exam. Is s/p cholecystectomy in past TB wnl LFTs improving, suspect 2nd to hypotension/shocked liver (imaging did note prominent CBD/unchanged from prior (trace perihepatic ascites)) Monitor in AM Avoid nephrotoxic medications/avoid anti-HTN medications (metoprolol ordered w/ hold parameters) (7) Hypoglycemia: Plan: Noted to be hypoglycemic at 49 at the time of admission . Significantly uncontrolled DM as outpatient however at baseline but recent poor PO intake due to constipation/admission for such w/ n/v concerning for infection as above Given 1 amp Dextrose in ER, continued D5W overnight of admission BSgs improved/PO intake and discontinued D5W and placed on NSS (now dc'd) BSGs much improved/pharmacy consulted for glycemic management in complex patient/typically uncontrolled DM at baseline -- possible slightly too tight control given hypoglycemia on admit but improved today (8) Lactate blood increase: Plan: Lactated elevated at 2.5, still at 2.5 and worsened to 4 on third repeat --> 3.9 suspected 2nd to infection (also on metformin/may need dc'd at dc, hypotension/shock) Repeated AM 07/02 elevated to 4 and IVF bolus 250cc + additional 1L provided . Trended down on repeat Abx changed as above, abdominal pain improved/almost resolved w/ her GI discomfort/chronic issues w/ bowels/possible gastroparesis, ?stopping metformin at dc (9) Elevated procalcitonin: Plan: initially 4.45-->63.6 on repeat. 2nd to bacteremia/sepsis as above from urine/proctitis suspected abx as above (10) Abdominal pain: Plan: Suspect combination constipation/proctitis/uti as above Ramirez placed w/ improvement in pain reported but ongoing issues --> see above IMPROVED co2 20 on am labs however suspect from NSS IV, since discontinued as taking PO . monitor on repeat (11) Urinary retention: Plan: Recurrent; also noted on last admission and placed in ER on admit w/ 1L output CTAP w/ b/l hydronephrosis (likely due to significant bladder distension prior to ramirez placement) but does have some low back pain (no overt CVA tenderness but ?pyelo) Cr elevation today, combination infection/hypotension. IVF/resus as above and renal dose meds/avoid nephrotoxins Maintain ramirez catheter for now ?ATN from hypotension should do voiding trial prior to discharge with Urology consult if she continues to retain Monitor in AM (12) Right leg pain: Plan: Pain in the proximal femur/right hip on exam , likely 2nd to fall/sepsis as above. CK wnl on check. Imaging negative. ?more R groin pain from UTI? no pain reported today, planning for rehab given ddimer elevated (however suspect from sepsis as above, slight swelling but no tenderness, can check venous doppler for completeness to ensure no DVT contributing to weakness). No hypoxia/pleuritic cp reported and did add heparin sq for dvt proph not ordered on admission (13) CAD (coronary artery disease): Plan: Hx CAD s/p PCI (LAD, Cx, RCA). 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 Distal esophageal thickening noted on admit imaging (15) Acute urinary retention: Plan: ?2nd to constipation vs ramirez catheter placement recently vs uti ramirez placement, maintained. abx as outlined. would continue ramirez at dc/voiding trial (16) Hypomagnesemia: Plan: low, IV replacement ordered and normalized on repeat monitor/?po supplementation Plan continued inpatient stay, continue abx/monitor cxs, ID on consult and following therapy evaluations to be undertaken, patient SHOULD GO TO REHAB/SNF at discharge. Updated daughter Karen on phone AM 07/02 (agreed patient should also go to rehab) Notified CM to send referral for [facility], possible dc mid week depending repeat evals/labs/etc Admission and Anticipated Discharge Date Admission Date: July 02, 2023 Supervising Physician Co-Signing Physician Notes The patient was not seen by me. The chart was reviewed. Case discussed with JAVI Woods. Agree with assessment and plan Subjective Eval this morning, feeling MUCH better. Urine output picked up nicely, clear yellow urine in bag. Got cleaned up this morning, also reporting good bowel movement and significantly improved lower abdominal cramping/tenderness. WBC trending down, eating/drinking without issue. IVF discontinued today and she is inquiring when she will be going to [facility]. Discussed continued inpatient stay/abx at least through weekend, but possible dc to [facility] if bed available by mid week. No fever/chills, chest pain or shortness of breath at this time. Questions/concerns addressed at this time. Physical Exam 2 Physical Exam: General: chronically ill appearing female appearing MUCH better , more awake/alert, talkative, less confusion, inquiring about when she is going to [facility] HEENT: head atraumatic, normocephalic, mmm, trachea midline Resp: diminished in the bases, no w/c/r, on room air CV: RRR, no significant m/r/g (quiet HS), trace pedal edema, calves nontender GI: +BS, slight distension/fullness IMPROVED, decreased minimal tenderness across lower abdominal peraza, no guarding/rigidity : ramirez with CLEAR YELLOW URINE IN BAG, INCREASED OUTPUT MSK/Neuro: no slurred speech/facial droop, following commands abrasions noted from fall, additional to R elbow Results & Data Results & Data Vital Signs (Past 12 Hours) Vital Signs Temp Pulse Pulse Resp BP Pulse Ox O2 Del Method 07/04/23 07:24 36.9 C 86 18 152/80 H 96 Room Air 07/04/23 03:03 36.5 C 69 20 138/82 98 Room Air 07/03/23 23:22 36.5 C 79 18 113/70 96 Room Air 07/03/23 23:00 76 Laboratory Results 07/04/23 04:20 07/04/23 04:20 PG Care Time/CCT Total # of Minutes Spent Total Time Spent with Patient: Total time spent is greater than 50% in coordination of care (as documented) at patient's floor/unit and/or counseling patient: Coding Level of Care Code 57907 SUB INP/OBS CARE 3/50MIN Diagnoses Sepsis A41.9 Bacteremia R78.81 Acute UTI (urinary tract infection) N39.0 Proctitis K62.89 Fall W19.XXXA Elevated LFTs R79.89 Hypoglycemia E16.2 Lactate blood increase R79.89 Elevated procalcitonin R79.89 Abdominal pain R10.9 Urinary retention R33.9 Right leg pain M79.604 Coronary artery disease involving [place] coronary artery of [place] heart, angina presence unspecified I25.10 Associated angina: angina presence unspecified Coronary Disease-Associated Artery/Lesion type: [place] artery [place] vs. transplanted heart: [place] heart Mckeon's esophagus without dysplasia K22.70 Mckeon's esophagus type: without dysplasia Acute urinary retention R33.8 Hypomagnesemia E83.42 (13) CAD (coronary artery disease) Associated angina: angina presence unspecified Coronary Disease-Associated Artery/Lesion type: [place] artery [place] vs. 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
[2023-07-04] MEDS: DULoxetine HCL 30 MG CAP PO SCH (08:40)
[2023-07-04] MEDS: METOPROLOL SUCC 50MG EXT REL TAB PO SCH (08:40)
[2023-07-04] MEDS: FLUTICASONE FUROATE 100MCG 14 PUFFS/INHALER INH SCH (08:40)
[2023-07-04] MEDS: ISOSORBIDE MONO EXTENDED REL 30 MG TABCR PO SCH (08:40)
[2023-07-04] MEDS: ASPIRIN 81 MG ECTAB PO SCH (08:40)
[2023-07-04] MEDS: UMECLIDINIUM/VILANTEROL 62.5/25MCG 7 PUFFS/INHALER INH SCH (08:40)
[2023-07-04] MEDS: PANTOprazole 40 MG TAB PO SCH ×2 (08:41→19:55)
[2023-07-04] MEDS: DOCUSATE SODIUM 100 MG CAP PO SCH ×2 (08:42→19:57)
[2023-07-04] MEDS: POLYETHYLENE (MIRALAX) 17 GM PACK PO SCH ×2 (08:42→19:57)
--- NOTE | 2023-07-04 11:29 | Pharmacy Report ---
Pharmacy Glycemic Short Note 2 - Date of Service July 04, 2023 - Glycemic Short BSG Results (Last 24 hours): 07/03/23 07/03/23 07/03/23 12:12 16:58 20:36 Glucose POC Glucose 89 120 H 138 H 07/04/23 07/04/23 04:20 08:11 Glucose 93 POC Glucose 102 H OUTPATIENT ANTIDIABETIC REGIMEN: * Lantus 20 units SC AM * Novolog SSI - CF 20, CR 5 * Metformin 1 g PO BIDM * HbA1c: 11.5% (05/15/23) ASSESSMENT: 07/04: * Claire received 17 units of insulin yesterday, 10 units of which were basal. BSGs were: 749-03-126-138 mg/dL. * Fasting BSG was 102 mg/dL this AM. Current basal regimen seems appropriate. * Given drop in lunchtime BSG yesterday, made the decision to loosen bolus parameters at that time. Will continue with loosened scale today. Stressors stable. 07/03: * 78 yo F admitted on 07/01/23 secondary to sepsis. Pharmacy has been consulted to assist with inpatient glycemic management. Patient is a Type 2 diabetic as an outpatient. Please refer to outpatient regimen and most recent HbA1c above. * BSG upon admission was low at 49 mg/dL. Unknown when patient's last dose of insulin was prior to admission. Basal insulin was held yesterday, and BSGs were 014-669-518-241 mg/dL. Pharmacy was consulted when BSG was 283 mg/dL last evening. Of note, patient was on D5NS @ 80 mL/hr. Gave 10 units of basal and tightened Novolog. * Fasting BSG was 103 mg/dL this AM. Will continue with 10 units of basal per day. No changes to Novolog. If fasting drops below 100 mg/dL tomorrow, will need to reduce basal dose. PLAN FOR INPATIENT GLYCEMIC CONTROL: * Hold outpatient oral diabetes medications * Basal insulin * Lantus 10 units SC AM * Bolus insulin * NovoLog per scale ACHS or Q6hrs while NPO * Goal Range: Low 110 mg/dL - High 140 mg/dL * Correction Factor: 35 mg/dL/unit * Nutritional / Prandial insulin per carb ratio of 1 unit per 12 grams CHO consumed
--- NOTE | 2023-07-04 15:56 | Ultrasound Report ---
BILATERAL LOWER EXTREMITY VENOUS DOPPLER CLINICAL HISTORY: Lower extremity swelling. r/o dvt COMPARISON STUDY: Left lower extremity venous Doppler ultrasound March 30, 2023. Right lower extrem ity venous Doppler ultrasound December 18, 2022. TECHNIQUE: Sonography of the deep venous system of the bilateral lower extremities was performed. Co mpression and augmentation were evaluated. FINDINGS: The bilateral common femoral, superficial femoral and popliteal veins were compressible. A ugmentation was normal. Flow was shown within the deep calf vessels however the left calf vessels wer e not well visualized. A small left popliteal cyst is similar to prior ultrasound, measuring 3 x 1 x 2 cm. Bilateral lower extremity edema is incidentally noted. IMPRESSION: 1. No evidence of deep venous thrombus within the bilateral lower extremities although left calf vess els suboptimally visualized. 2. Small left popliteal cyst, similar to prior ultrasound. ACT 112: Negative or not required by law. Electronically signed by: Jimmy Chavarria M.D. 07/04/2023 3:55 PM
[2023-07-05] MEDS: PIPER/TAZO 4.5g in D5W MINI-B 100 ML IV SCH ×3 (01:23→17:39)
[2023-07-05 05:04] LABS: Albumin Level 2.5 gm/dl (3.4-5.0); Bilirubin Direct 0.1 mg/dl (0-0.2); Bilirubin,Total 0.5 mg/dl (0.2-1.0); Potassium 3.7 mmol/L (3.5-5.1)
[2023-07-05 05:10] LABS: BUN Creatinine Ratio 18.8 (10-20); Creatinine Clr Calc Pharmacy 33.3 ml/min; Est GFR (African American) 42.9 ml/min; Total Protein 4.8 gm/dl (6.0-8.3)
[2023-07-05 07:03] LABS: Basophils # (auto) 0.04 K/uL (0.00-0.20); Basophils % (auto) 0.4 %; Eosinophils # (auto) 0.15 K/uL (0.00-0.50); Eosinophils % (auto) 1.3 %; Hematocrit (blood only) 25.4 % (37.0-47.0); Hemoglobin 8.8 g/dl (12.0-16.0); Immature Granulocytes # (auto) 0.08 K/uL (0.01-0.20); Immature Granulocytes % (auto) 0.7 %; Lymphocytes # (auto) 1.74 K/uL (1.20-3.40); Lymphocytes % (auto) 15.3 %; Mean Corpuscular Hemoglobin 27.4 pg (25.0-34.0); Mean Corpuscular Hgb Conc 34.6 g/dL (32.0-36.0); Mean Corpuscular Volume 79.1 fL (80.0-100.0); Mean Platelet Volume 11.4 fL (9.4-12.4); Monocytes # (auto) 0.36 K/uL (0.11-0.59); Monocytes % (auto) 3.2 %; Neutrophils # (auto) 8.97 K/uL (1.40-6.50); Neutrophils % (auto) 79.1 %; Platelet Count 100 K/uL (130-400); RDW Coefficient of Variation 16.1 % (11.5-14.5); RDW Standard Deviation 46.6 fL (36.4-46.3); Red Blood Count 3.21 M/uL (4.20-5.40); White Blood Count 11.34 K/ul (4.8-10.8)
[2023-07-05] MEDS: busPIRone 5 MG TAB PO SCH ×3 (08:19→19:57)
[2023-07-05] MEDS: DULoxetine HCL 30 MG CAP PO SCH (08:19)
[2023-07-05] MEDS: METOPROLOL SUCC 50MG EXT REL TAB PO SCH (08:19)
[2023-07-05] MEDS: FAMOTIDINE 20 MG TAB PO SCH ×2 (08:19→19:57)
[2023-07-05] MEDS: PANTOprazole 40 MG TAB PO SCH ×2 (08:19→19:57)
[2023-07-05] MEDS: ISOSORBIDE MONO EXTENDED REL 30 MG TABCR PO SCH (08:19)
[2023-07-05] MEDS: ASPIRIN 81 MG ECTAB PO SCH (08:19)
[2023-07-05] MEDS: FLUTICASONE FUROATE 100MCG 14 PUFFS/INHALER INH SCH (08:20)
[2023-07-05] MEDS: UMECLIDINIUM/VILANTEROL 62.5/25MCG 7 PUFFS/INHALER INH SCH (08:20)
[2023-07-05] MEDS: HEPARIN SOD 5,000 UNIT/0.5 ML VIAL SQ SCH ×2 (08:20→19:56)
[2023-07-05] MEDS: POLYETHYLENE (MIRALAX) 17 GM PACK PO SCH ×2 (08:20→19:59)
[2023-07-05] MEDS: DOCUSATE SODIUM 100 MG CAP PO SCH ×2 (08:23→19:59)
[2023-07-05] MEDS: LANTUS PER UNIT CHARGE SC SCH (08:23)
--- NOTE | 2023-07-05 08:26 | Hospitalist Progress Note ---
Date of Service July 05, 2023 Assessment & Plan (1) Bacteremia: Plan: Patient presenting for re-admission after recent discharge home rather than rehab and sustained a fall out of bed when trying to get up to use the bathroom w/ recent admission for urinary retention/SHRERIE/constipation and ramirez placement. Sepsis/bacteremia 2nd to urine vs abdominal source (UTI w/ cx ecoli/gramma strep not enterococcus, CTAP w/ proctitis likely from recent continued constipation ?gastroparesis w/ her uncontrolled CM) WBC normal on admit but quickly elevated to 37.5k on repeat, procal 63.68 and initially on Ceftriaxone for urinary coverage and BP 70s/40s on 3rd floor with LFT elevation suspected 2nd to shock from hypotension BPs improved w/ IVF bolus/resuscitation (did get 1 dose albumin to note) Blood cultures w/ Ecoli ID consulted, discussed on Monday 07/02 and escalated abx to IV Zosyn to cover for both Significantly improved over the past 24-48 hours WBC now 11.3k, hgb 8.8 (suspect dilutional from copious IVF resuscitation/no bleeding reported) BUN/Cr down to 26/1.38 and urine output significantly improved w/ ramirez in place for retention/infection Continued daily bowel movements reported, decreased discomfort to lower abdomen. LFTs also improving, suspected as above 2nd to hypotension/sepsis/shock on admission PT/OT evaluations undertaken and recs for rehab. Discussed multiple times as patient SHOULD NOT GO HOME given repeat admissions/significant illness on admission and risk for readmission. Agreeable to [facility]. CM notified yesterday of improvements for ref to [facility] and asked to apply for auth for this week DVT proph: Heparin SQ ordered (fecal occult negative) Continued inpatient stay at present time (2) Sepsis: Plan: elevated WBC/procal/lactic/hypotension as above source: urine/abdominal IV Zosyn, blood/urine cx, ID consultation as above and [place] BPs have since stablized, IVF stopped day prior and 129/74 at present. (noting her lisinopril dc last admit for hyperkalemia/SHERRIE) (3) Acute UTI (urinary tract infection): Plan: suspect 2nd to retention vs ramirez placement last admission for such vs retention leading to UTI. Urine cx as above, ecoli/gamma strep not enterococcus Zosyn for coverage as above Discussed ramirez catheter and given removal/replacement/removal and now in place would continue for now while working on strength and if improving voiding trial at rehab vs prior to dc. 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 [employer] presenting like this No recent diarrhea reported (admitted recent w/ constipation -- suspect proctitis 2nd to constipation) s/p enema in ER w/ large BM but reported lower abdominal cramping/elevated WBC and CTAP on admission ?underlying gastroparesis leading to constipation issues as well -- could consider regaln, however had been moving her bowels daily (5) Fall: Plan: multifactorial in setting of repeated hospitalizations/cervical radiculopathy, now w/ sepsis/bacteremia 2nd to urine/abdominal source suspected CT head negative for acute CVA/fracture Imaging negative for acute fracture (noting possible need for xray of R elbow and will monitor) Tx as outlined for bacteremia/infection SCDs ordered for DVT prophylaxis, Hgb dropped but suspected 2nd to IVF resuscitation/dilutional from IVF on admission (no bleeding reported) Therapy evaluations to be undertaken and discussed rehab/SNF at discharge given significant infection and weakness to require inpatient rehabilitation (rec [facility] if needed, ENCOURAGED NOT TO GO HOME - also discussed w/ daughter on phone 07/03) (6) Elevated LFTs: Plan: mild elevation on admit but significant jump w/ hypotension -- suspect shock (reported down for several hours when fell out of bed) is s/p precious in the past IVF as outlined, BPs improved and LFTs improving on repeat. Monitor (7) Hypoglycemia: Plan: Noted to be hypoglycemic at 49 at the time of admission . Significantly uncontrolled DM as outpatient however at baseline but recent poor PO intake due to constipation/admission for such w/ n/v concerning for infection as above Given 1 amp Dextrose in ER, continued D5W overnight of admission BSgs improved/PO intake and discontinued D5W and placed on NSS (now dc'd) BSGs much improved/pharmacy consulted for glycemic management in complex patient/typically uncontrolled DM at baseline -- possible slightly too tight control given hypoglycemia on admit but improved today (8) Lactate blood increase: Plan: Lactated elevated at 2.5, still at 2.5 and worsened to 4 on third repeat --> 3.9 suspected 2nd to infection (also on metformin/may need dc'd at dc, hypotension/shock) Repeated AM 07/02 elevated to 4 and IVF bolus 250cc + additional 1L provided . Trended down on repeat Abx changed as above, abdominal pain improved/none today w/ her GI discomfort/chronic issues w/ bowels/possible gastroparesis, ?stopping metformin at dc (9) Elevated procalcitonin: Plan: initially 4.45-->63.6 on repeat and trending down on follow up repeat 42.6 (can monitor tomorrow vs wednesday if wanting to trend) 2nd to bacteremia/sepsis as above from urine/proctitis suspected abx as above (10) Abdominal pain: Plan: Suspect combination constipation/proctitis/uti as above Ramirez placed w/ improvement in pain reported but ongoing issues --> see above co2 20 on am labs however suspect from NSS IV, now discontinued as taking PO and will monitor no further abdominal pain reported at present monitor repeat labs (11) Urinary retention: Plan: Recurrent; also noted on last admission and placed in ER on admit w/ 1L output CTAP w/ b/l hydronephrosis (likely due to significant bladder distension prior to ramirez placement) but does have some low back pain (no overt CVA tenderness but ?pyelo) Cr elevation s/p ramirez 2nd to hypotension/infection and suspected improvement w/ IVF and continued improvement off IVF now that BPs improved ?voiding trial prior to dc vs continued at [facility] and can arrange urology f/u? (12) Right leg pain: Plan: Pain in the proximal femur/right hip on exam , likely 2nd to fall/sepsis as above. CK wnl on check. Imaging negative. ?more R groin pain from UTI? no pain reported today, planning for rehab given ddimer elevated (however suspect from sepsis as above, slight swelling but no tenderness, can check venous doppler for completeness to ensure no DVT contributing to weakness). No hypoxia/pleuritic cp reported and did add heparin sq for dvt proph not ordered on admission Venous dopplers negative, noting popliteal cyst/unchanged (13) CAD (coronary artery disease): Plan: Hx CAD s/p PCI (LAD, Cx, RCA). 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 Distal esophageal thickening noted on admit imaging (15) Acute urinary retention: Plan: ?2nd to constipation vs ramirez catheter placement recently vs uti ramirez placement, maintained. abx as outlined. would continue ramirez at dc/voiding trial (16) Hypomagnesemia: Plan: low, IV replacement ordered and normalized on repeat monitor/?po supplementation Plan continued inpatient stay, significant improvement PT/OT consults/CM following, will plan for [facility] once bed available/auth received if continued improvement Admission and Anticipated Discharge Date Admission Date: July 02, 2023 Supervising Physician Co-Signing Physician Notes The patient was not seen by me. The chart was reviewed. Case discussed with JAVI Woods. Agree with assessment and plan Subjective Evaluated this morning, sitting up in bed. Appearing much improved and reporting the same. Ramirez with clear yellow urine, moving her bowels. Discussed improvement in labs, afebrile. CM notified to send referrals over weekend and hopefully will be able to get her to [facility] this week before the holiday. Her daughter plans on visiting later today. Discussed ramirez catheter, not causing her too much distress/discomfort at all and consideration for voiding trial at discharge rather than removing at present time until she is stronger/continued bowels moving without issue. She denies any symptoms of chest pain or shortness of breath, BP this morning stable 128/72. Questions/concerns addressed at this time. She is very thankful for the kindness and care being provided by nursing staff. Physical Exam 2 Physical Exam: General: chronically ill appearing female appearing MUCH better , more awake/alert, talkative, less confusion, continues to look much better than day prior HEENT: head atraumatic, normocephalic, mmm, trachea midline Resp: diminished in the bases, no w/c/r, on room air CV: RRR, no significant m/r/g (quiet HS), trace pedal edema, calves nontender GI: +BS, slight distension/fullness IMPROVED, no further lower abdominal tenderness : ramirez with CLEAR YELLOW URINE IN BAG, good output MSK/Neuro: no slurred speech/facial droop, following commands abrasions noted from fall, additional to R elbow Results & Data Results & Data Vital Signs (Past 12 Hours) Vital Signs Temp Pulse Pulse Resp BP Pulse Ox O2 Del Method 07/05/23 07:04 36.7 C 67 17 128/72 95 Room Air 07/05/23 03:39 36.7 C 65 18 139/84 97 Room Air 07/04/23 23:13 36.8 C 65 18 135/82 97 Room Air 07/04/23 23:00 58 L Laboratory Results 07/05/23 04:10 07/05/23 04:10 Diagnostic Findings Venous Doppler Study 07/04/23 14:02 BILATERAL LOWER EXTREMITY VENOUS DOPPLER CLINICAL HISTORY: Lower extremity swelling. r/o dvt COMPARISON STUDY: Left lower extremity venous Doppler ultrasound March 30, 2023. Right lower extremity venous Doppler ultrasound December 18, 2022. TECHNIQUE: Sonography of the deep venous system of the bilateral lower extremities was performed. Compression and augmentation were evaluated. FINDINGS: The bilateral common femoral, superficial femoral and popliteal veins were compressible. Augmentation was normal. Flow was shown within the deep calf vessels however the left calf vessels were not well visualized. A small left popliteal cyst is similar to prior ultrasound, measuring 3 x 1 x 2 cm. Bilateral lower extremity edema is incidentally noted. IMPRESSION: 1. No evidence of deep venous thrombus within the bilateral lower extremities although left calf vessels suboptimally visualized. 2. Small left popliteal cyst, similar to prior ultrasound. ACT 112: Negative or not required by law. Electronically signed by: Jimmy Chavarria M.D. 07/04/2023 3:55 PM PG Care Time/CCT Total # of Minutes Spent Total Time Spent with Patient: Total time spent is greater than 50% in coordination of care (as documented) at patient's floor/unit and/or counseling patient: Coding Level of Care Code 72972 SUB INP/OBS CARE 3/50MIN Diagnoses Bacteremia R78.81 Sepsis A41.9 Acute UTI (urinary tract infection) N39.0 Proctitis K62.89 Fall W19.XXXA Elevated LFTs R79.89 Hypoglycemia E16.2 Lactate blood increase R79.89 Elevated procalcitonin R79.89 Abdominal pain R10.9 Urinary retention R33.9 Right leg pain M79.604 Coronary artery disease involving [place] coronary artery of [place] heart, angina presence unspecified I25.10 Associated angina: angina presence unspecified Coronary Disease-Associated Artery/Lesion type: [place] artery [place] vs. transplanted heart: [place] heart Mckeon's esophagus without dysplasia K22.70 Mckeon's esophagus type: without dysplasia Acute urinary retention R33.8 Hypomagnesemia E83.42 (13) CAD (coronary artery disease) Associated angina: angina presence unspecified Coronary Disease-Associated Artery/Lesion type: [place] artery [place] vs. transplanted heart: [place] heart Qualified Code(s): I25.10 - Atherosclerotic heart disease of [place] coronary artery without angina pectoris (14) Mckeon esophagus Mckeon's esophagus type: without dysplasia Qualified Code(s): K22.70 - Mckeon's esophagus without dysplasia
[2023-07-05] MEDS: INSULIN ASPART PER UNIT CHARGE SC SCH ×4 (08:49→20:07)
--- NOTE | 2023-07-05 16:39 | Infectious Disease Progress Nt ---
Date of Service July 05, 2023 Assessment & Plan (1) Acute UTI (urinary tract infection): (2) Sepsis: Present on Admission?: Yes (3) Bacteremia: (4) Bacterial infection due to Escherichia coli: (5) Urinary retention: (6) Stercoral colitis: Plan Claire Rosas is a 78-year-old woman with history of bowel obstruction, cervical radiculopathy, IBS, Mckeon's esophagus, dm2, gastroparesis, recently admitted from 06/18-06/24 with constipation and urinary retention, found to have a large stool ball in the rectum c/f stercoral colitis and BL hydronephrosis s/p ramirez catheter. She presents 07/01 with increased abdominal and back pain, found to be septic with BCx + E. coli. ID is consulted for sepsis and E. coli bacteremia, possible urinary vs. GI source. Source of her E. coli bacteremia may urinary or GI. CT A/P showed mild BL h ydronephrosis, possibly due to significant bladder distention requiring Ramirez (1L UOP after placement). UCx also growing E. coli thus urinary source seems likely. Of note, she has prolonged constipation with retained stool and proctitis on imaging thus GI translocation a possibility as well. Of note, rash to cephalosporins and hives to sulfa, but was able to tolerate pip-tazo. While on pip-tazo, WBC improved significantly 24->11, has remained afebrile and clinically stable. Can transition to ciprofloxacin to complete a 7-day course. QTc of 446 on 07/02/23. ID Problem List: # Severe leukocytosis # E coli bacteremia ( via BCID) 2/2 UTI vs. GI translocation # UTI # urinary retention. # Sepsis # Cephalosporin allergy ; rash/itching # Sulfa allergy : hives Recommendations: - Can change to ciprofloxacin 500 mg PO Q12H to complete a 7-day course (renally dosed) - Continue to address constipation and urinary retention Plan discussed with hospitalist. Thank you for letting ID participate in the care of this patient. ID will sign off at this time. If questions, please contact the [facility] call center at [phone]. Admission and Anticipated Discharge Date Admission Date: July 02, 2023 Subjective This patient recommendation is based on a telemedicine consult request which was completed asynchronously through chart review and information provided by the primary physician. The patient was not seen or examined today. The evaluation is consultative in nature and all patient care and treatment decisions can either be accepted or rejected by the patient's primary hospital-based treating physician using their own independent medical judgment for their patient. Time Spent Reviewing Chart: 31+ minutes - Afebrile - WBC 24->11 Results & Data Vital Signs (Past 12 Hours) Vital Signs Temp Pulse Pulse Resp BP BP Pulse Ox 07/05/23 16:28 36.6 C 61 18 137/73 97 07/05/23 16:00 60 07/05/23 11:59 36.8 C 63 19 129/74 96 07/05/23 08:00 65 07/05/23 07:04 36.7 C 67 17 128/72 95 O2 Del Method 07/05/23 16:28 Room Air 07/05/23 16:00 07/05/23 11:59 Room Air 07/05/23 08:00 07/05/23 07:04 Room Air Diagnostic Findings Micro 07/01 UCx >100K E. coli (S-cipro), Gamma Strep, not enterococcus 07/01 BC 2/4 E. coli (S-cipro) Abx Ceftriaxone 07/01-07/02 Zosyn 07/02- p
--- NOTE | 2023-07-05 17:59 | Communication Note ---
Date of Service: July 05, 2023 Discussed w/ ID provider this evening given Cipro PO recommendations which should cover pansensitive ecoli in blood/urine, however asking about coverage w/ anaerobes w/ consideration for Flagyl. Per ID, reasonable to continue Metronidazole 500mg Q12 as well at dc. Will plan to transition to PO abx in AM as long as continued improvement and plan for [facility] tomorrow.
[2023-07-06] MEDS: PIPER/TAZO 4.5g in D5W MINI-B 100 ML IV SCH ×2 (02:27→09:18)
[2023-07-06] MEDS: traMADol HCL 50 MG TABLET PO PRN (02:44)
[2023-07-06 06:27] LABS: Basophils # (auto) 0.03 K/uL (0.00-0.20); Basophils % (auto) 0.5 %; Eosinophils # (auto) 0.11 K/uL (0.00-0.50); Eosinophils % (auto) 1.9 %; Hematocrit (blood only) 25.7 % (37.0-47.0); Hemoglobin 8.6 g/dl (12.0-16.0); Immature Granulocytes # (auto) 0.13 K/uL (0.01-0.20); Immature Granulocytes % (auto) 2.2 %; Lymphocytes # (auto) 1.69 K/uL (1.20-3.40); Lymphocytes % (auto) 28.6 %; Mean Corpuscular Hemoglobin 27.1 pg (25.0-34.0); Mean Corpuscular Hgb Conc 33.5 g/dL (32.0-36.0); Mean Corpuscular Volume 81.1 fL (80.0-100.0); Mean Platelet Volume 11.4 fL (9.4-12.4); Monocytes # (auto) 0.55 K/uL (0.11-0.59); Monocytes % (auto) 9.3 %; Neutrophils # (auto) 3.39 K/uL (1.40-6.50); Neutrophils % (auto) 57.5 %; Platelet Count 121 K/uL (130-400); RDW Standard Deviation 47.8 fL (36.4-46.3); Red Blood Count 3.17 M/uL (4.20-5.40)
[2023-07-06 07:28] LABS: Albumin Level 2.5 gm/dl (3.4-5.0); Bilirubin Direct 0.2 mg/dl (0-0.2); Bilirubin,Total 0.6 mg/dl (0.2-1.0); Calcium 7.9 mg/dl (8.6-10.3); Magnesium 1.6 mg/dl (1.7-2.4); Potassium 3.2 mmol/L (3.5-5.1)
[2023-07-06 07:34] LABS: BUN Creatinine Ratio 17.8 (10-20); Creatinine Clr Calc Pharmacy 46.5 ml/min; Est GFR (African American) 58.4 ml/min; Est GFR (Non-African American) 50.4 ml/min; Total Protein 4.9 gm/dl (6.0-8.3)
--- NOTE | 2023-07-06 08:38 | Hospitalist Progress Note ---
Date of Service July 06, 2023 Assessment & Plan (1) Bacteremia: Plan: Patient presenting for re-admission after recent discharge home rather than rehab and sustained a fall out of bed when trying to get up to use the bathroom w/ recent admission for urinary retention/SHERRIE/constipation and ramirez placement. Sepsis/bacteremia 2nd to urine vs abdominal source (UTI w/ cx ecoli/gramma strep not enterococcus, CTAP w/ proctitis likely from recent continued constipation ?gastroparesis w/ her uncontrolled CM) WBC normal on admit but quickly elevated to 37.5k on repeat, procal 63.68 and initially on Ceftriaxone for urinary coverage and BP 70s/40s on 3rd floor with LFT elevation suspected 2nd to shock from hypotension BPs improved w/ IVF bolus/resuscitation (did get 1 dose albumin to note) Blood cultures w/ Ecoli ID consulted, discussed on Monday 07/02 and escalated abx to IV Zosyn to cover for both Significantly improved over the past 24-48 hours w/ improvement in WBC/renal function and liver function testing suspected as above 2nd to hypotension/sepsis/shock on admission 07/06 WBC improved, now normal. Renal function back to baseline. LFTs improving/resolving. Procal from 63 to 5.47 on AM labs Will plan to transition to Cipro/Flagyl to complete course per discussion w/ ID last evening to cover for urine but also anaerobes given concerns for proctitis/translocation causing initial presentation. Last day of treatment should completed after 07/08 dosing. Having some diarrhea this morning, held PO stool softener/stimulants. Will ask RN to check cdiff, if negative can order imodium. (two loose BMs, one large loose BM this morning) DVT proph: Heparin SQ ordered (fecal occult negative) PT/OT evaluations undertaken and recs for rehab. Discussed multiple times as patient SHOULD NOT GO HOME given repeat admissions/significant illness on admission and risk for readmission. Agreeable to [facility]. CM notified yesterday of improvements for ref to [facility] and asked to apply for auth for this week CM following -- planning for [facility] when auth received, likely by tomorrow (possible later this afternoon?) (2) Sepsis: Plan: elevated WBC/procal/lactic/hypotension as above w/ urine vs abd source. abx as outlined, significant improvement and switching to PO abx for today (3) Acute UTI (urinary tract infection): Plan: suspect 2nd to retention vs ramirez placement last admission for such vs retention leading to UTI. Urine cx as above, ecoli/gamma strep not enterococcus Zosyn for coverage as above, switching to Cipro for coverage as above Discussed ramirez catheter and given removal/replacement/removal and now in place would continue for now while working on strength and if improving voiding trial at rehab vs prior to dc. 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 No recent diarrhea reported initially (admitted recent w/ constipation -- suspect proctitis 2nd to constipation) s/p enema in ER w/ large BM but reported lower abdominal cramping/elevated WBC and CTAP on admission ?underlying gastroparesis leading to constipation issues as well -- could consider regaln, however had been moving her bowels daily and now w/ loose stools and checking cdiff/will order imodium if negative As above, switching to Cipro PO for today, discussed w/ ID and will also utilize Flagyl BID as well for total 7 day course (last day 07/08) (5) Fall: Plan: multifactorial in setting of repeated hospitalizations/cervical radiculopathy, now w/ sepsis/bacteremia 2nd to urine/abdominal source suspected CT head negative for acute CVA/fracture Imaging negative for acute fracture (noting possible need for xray of R elbow and will monitor) Tx as outlined for bacteremia/infection SCDs ordered for DVT prophylaxis, Hgb dropped but suspected 2nd to IVF resuscitation/dilutional from IVF on admission (no bleeding reported) Therapy evaluations to be undertaken and discussed rehab/SNF at discharge given significant infection and weakness to require inpatient rehabilitation (rec [facility] if needed, ENCOURAGED NOT TO GO HOME - also discussed w/ daughter on phone 07/03) (6) Elevated LFTs: Plan: mild elevation on admit but significant jump w/ hypotension -- suspect shock (reported down for several hours when fell out of bed) is s/p precious in the past IVF as outlined, BPs improved and LFTs normalizing as above No RUQ pain Monitor (7) Hypoglycemia: Plan: Noted to be hypoglycemic at 49 at the time of admission . Significantly uncontrolled DM as outpatient however at baseline but recent poor PO intake due to constipation/admission for such w/ n/v concerning for infection as above Given 1 amp Dextrose in ER, continued D5W overnight of admission BSgs improved/PO intake and discontinued D5W and placed on NSS (now dc'd) BSGs much improved/pharmacy consulted for glycemic management in complex patient/typically uncontrolled DM at baseline -- possible slightly too tight control given hypoglycemia on admit but improved today (8) Lactate blood increase: Plan: Lactated elevated at 2.5, still at 2.5 and worsened to 4 on third repeat --> 3.9 suspected 2nd to infection (also on metformin/may need dc'd at dc, hypotension/shock) Repeated AM 07/02 elevated to 4 and IVF bolus 250cc + additional 1L provided . Trended down on repeat Abx changed as above, abdominal pain improved/none today w/ her GI discomfort/chronic issues w/ bowels/possible gastroparesis, ?stopping metformin at dc (9) Elevated procalcitonin: Plan: initially 4.45-->63.6 on repeat and trending down on follow up repeat 42.6 2nd to bacteremia/sepsis as above from urine/proctitis suspected Repeat improved as above, switching abx to PO as outlined to complete course (10) Abdominal pain: Plan: Suspect combination constipation/proctitis/uti as above Ramirez placed w/ improvement in pain reported but ongoing issues --> see above co2 20 on am labs however suspect from NSS IV, now discontinued as taking PO and will monitor --> normalized on repeat (11) Urinary retention: Plan: Recurrent; also noted on last admission and placed in ER on admit w/ 1L output CTAP w/ b/l hydronephrosis (likely due to significant bladder distension prior to ramirez placement) but does have some low back pain (no overt CVA tenderness but ?pyelo) Cr elevation s/p ramirez 2nd to hypotension/infection and suspected improvement w/ IVF and continued improvement off IVF now that BPs improved ?voiding trial prior to dc - will plan to continue given recent issues/can trial voiding at [facility]/follow up with urology (12) Right leg pain: Plan: Pain in the proximal femur/right hip on exam , likely 2nd to fall/sepsis as above. CK wnl on check. Imaging negative. ?more R groin pain from UTI? no pain reported today, planning for rehab given ddimer elevated (however suspect from sepsis as above, slight swelling but no tenderness, can check venous doppler for completeness to ensure no DVT contributing to weakness). No hypoxia/pleuritic cp reported and did add heparin sq for dvt proph not ordered on admission Venous dopplers negative, noting popliteal cyst/unchanged no increase pain reported (13) CAD (coronary artery disease): Plan: Hx CAD s/p PCI (LAD, Cx, RCA). 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 abx as outlined. would continue ramirez at dc/voiding trial (16) Hypomagnesemia: Plan: low, IV replacement ordered and normalized on repeat monitor/?po supplementation also given PO K today (prior hx hyperkalemia w/ lisinopril use/SHERRIE last admit) Plan continued inpatient stay, awaiting insurance auth for [facility] Hopefully dc by Wednesday, CM following Admission and Anticipated Discharge Date Admission Date: July 02, 2023 Subjective Eval this morning, resting in bed, feeling much better. Moved her bowels, large loose stool this am/diarrhea. Nursing asking for something for diarrhea however asked to check cdiff prior given abx. Discussed will plan to switch to Cipro/Flagyl for today to complete course of antibiotic therapy. No fever/chills, chest pain/shortness of breath/abdominal pain/nausea/vomiting. Planning for [facility], auth not yet received this morning, likely by tomorrow. Physical Exam 2 Physical Exam: General: chronically ill appearing female appearing MUCH better , more awake/alert, talkative, less confusion, continues to look much better than day prior, reporting some diarrhea this morning HEENT: head atraumatic, normocephalic, mmm, trachea midline Resp: diminished in the bases, no w/c/r, on room air CV: RRR, no significant m/r/g (quiet HS), trace pedal edema, calves nontender GI: +BS, slight distension/fullness IMPROVED, no further lower abdominal tenderness : ramirez with CLEAR YELLOW URINE IN BAG, good output MSK/Neuro: no slurred speech/facial droop, following commands abrasions noted from fall, additional to R elbow Results & Data Results & Data Vital Signs (Past 12 Hours) Vital Signs Temp Pulse Pulse Resp BP Pulse Ox O2 Del Method 07/06/23 07:29 37.1 C 76 18 136/76 93 Room Air 07/06/23 02:48 36.9 C 77 18 123/75 94 Room Air 07/06/23 00:05 61 07/05/23 23:00 36.5 C 54 L 20 143/84 H 97 Room Air Laboratory Results 07/06/23 05:31 07/06/23 05:31 PG Care Time/CCT Total # of Minutes Spent Total Time Spent with Patient: Total time spent is greater than 50% in coordination of care (as documented) at patient's floor/unit and/or counseling patient: Coding Level of Care Code 23318 SUB INP/OBS CARE 3/50MIN Diagnoses Bacteremia R78.81 Sepsis A41.9 Acute UTI (urinary tract infection) N39.0 Proctitis K62.89 Fall W19.XXXA Elevated LFTs R79.89 Hypoglycemia E16.2 Lactate blood increase R79.89 Elevated procalcitonin R79.89 Abdominal pain R10.9 Urinary retention R33.9 Right leg pain M79.604 Coronary artery disease involving [place] coronary artery of [place] heart, angina presence unspecified I25.10 Associated angina: angina presence unspecified Coronary Disease-Associated Artery/Lesion type: [place] artery [place] vs. 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
[2023-07-06] MEDS ORDERED: POTASSIUM CHLORIDE CRTAB 20 MEQ TABCR PO STA (08:39)
[2023-07-06] MEDS ORDERED: MAGNESIUM SULFATE / D5W 1 GM/100 ML BAG IV ONE (08:39)
--- NOTE | 2023-07-06 08:54 | Pharmacy Report ---
Pharmacy Glycemic Short Note 2 - Date of Service July 06, 2023 - Glycemic Short BSG Results (Last 24 hours): 07/05/23 07/05/23 07/05/23 11:58 17:12 20:06 Glucose POC Glucose 172 H 82 109 H 07/06/23 07/06/23 05:31 07:59 Glucose 82 POC Glucose 91 OUTPATIENT ANTIDIABETIC REGIMEN: * Lantus 20 units SC AM * Novolog SSI - CF 20, CR 5 * Metformin 1 g PO BIDM HbA1c: 11.5% (05/15/23) ASSESSMENT: 07/06: * BSGs tightly controlled yesterday, sans lunchtime BSG of 172 mg/dL * Given lower overall BSG trend and fasting of 91 mg/dL this morning, will decrease basal this morning ~20% * No other changes to glycemic regimen anticipated for today * Plan is for discharge to SNF today or tomorrow 07/04: * Claire received 17 units of insulin yesterday, 10 units of which were basal. BSGs were: 637-51-414-138 mg/dL. * Fasting BSG was 102 mg/dL this AM. Current basal regimen seems appropriate. * Given drop in lunchtime BSG yesterday, made the decision to loosen bolus parameters at that time. Will continue with loosened scale today. Stressors stable. 07/03: * 78 yo F admitted on 07/01/23 secondary to sepsis. Pharmacy has been consulted to assist with inpatient glycemic management. Patient is a Type 2 diabetic as an outpatient. Please refer to outpatient regimen and most recent HbA1c above. * BSG upon admission was low at 49 mg/dL. Unknown when patient's last dose of insulin was prior to admission. Basal insulin was held yesterday, and BSGs were [phone] mg/dL. Pharmacy was consulted when BSG was 283 mg/dL last evening. Of note, patient was on D5NS @ 80 mL/hr. Gave 10 units of basal and tightened Novolog. * Fasting BSG was 103 mg/dL this AM. Will continue with 10 units of basal per day. No changes to Novolog. If fasting drops below 100 mg/dL tomorrow, will need to reduce basal dose. PLAN FOR INPATIENT GLYCEMIC CONTROL: * Hold outpatient oral diabetes medications * Basal insulin - decrease * Lantus 8 units SC daily * Bolus insulin * NovoLog per scale ACHS or Q6hrs while NPO * Goal Range: Low 110 mg/dL - High 140 mg/dL * Correction Factor: 35 mg/dL/unit * Nutritional / Prandial insulin per carb ratio of 1 unit per 12 grams CHO consumed
[2023-07-06] MEDS: INSULIN ASPART PER UNIT CHARGE SC SCH ×4 (09:03→20:14)
[2023-07-06] MEDS: LANTUS PER UNIT CHARGE SC SCH (09:04)
[2023-07-06] MEDS: FAMOTIDINE 20 MG TAB PO SCH ×2 (09:14→20:09)
[2023-07-06] MEDS: DULoxetine HCL 30 MG CAP PO SCH (09:15)
[2023-07-06] MEDS: HEPARIN SOD 5,000 UNIT/0.5 ML VIAL SQ SCH ×2 (09:15→20:09)
[2023-07-06] MEDS: PANTOprazole 40 MG TAB PO SCH ×2 (09:15→20:09)
[2023-07-06] MEDS: METOPROLOL SUCC 50MG EXT REL TAB PO SCH (09:15)
[2023-07-06] MEDS: ISOSORBIDE MONO EXTENDED REL 30 MG TABCR PO SCH (09:16)
[2023-07-06] MEDS: POLYETHYLENE (MIRALAX) 17 GM PACK PO SCH (09:16)
[2023-07-06] MEDS: ASPIRIN 81 MG ECTAB PO SCH (09:16)
[2023-07-06] MEDS: UMECLIDINIUM/VILANTEROL 62.5/25MCG 7 PUFFS/INHALER INH SCH (09:17)
[2023-07-06] MEDS: FLUTICASONE FUROATE 100MCG 14 PUFFS/INHALER INH SCH (09:17)
[2023-07-06] MEDS: DOCUSATE SODIUM 100 MG CAP PO SCH (09:17)
[2023-07-06] MEDS: busPIRone 5 MG TAB PO SCH ×3 (09:18→20:09)
[2023-07-06] MEDS ORDERED: metroNIDAZOLE 500 MG TAB PO SCH (11:30)
[2023-07-06] MEDS: CIPROFLOXACIN 500 MG TAB PO SCH ×2 (12:52→20:09)
[2023-07-06] MEDS: metroNIDAZOLE 500 MG TAB PO SCH (20:09)
[2023-07-07 06:33] LABS: Hematocrit (blood only) 26.5 % (37.0-47.0); Hemoglobin 8.8 g/dl (12.0-16.0); Mean Corpuscular Hemoglobin 27.4 pg (25.0-34.0); Mean Corpuscular Hgb Conc 33.2 g/dL (32.0-36.0); Mean Corpuscular Volume 82.6 fL (80.0-100.0); Mean Platelet Volume 10.9 fL (9.4-12.4); Platelet Count 130 K/uL (130-400); RDW Standard Deviation 48.7 fL (36.4-46.3); Red Blood Count 3.21 M/uL (4.20-5.40); White Blood Count 5.41 K/ul (4.8-10.8)
[2023-07-07 06:52] LABS: Albumin Level 2.4 gm/dl (3.4-5.0); BUN Creatinine Ratio 13.5 (10-20); Bilirubin,Total 0.4 mg/dl (0.2-1.0); Globulin 2.5 gm/dl (2.5-4.0); Magnesium 1.5 mg/dl (1.7-2.4); Potassium 3.4 mmol/L (3.5-5.1); Total Protein 4.9 gm/dl (6.0-8.3)
[2023-07-07 07:27] LABS: Basophils # (auto) 0.04 K/uL (0.00-0.20); Basophils % (auto) 0.7 %; Eosinophils # (auto) 0.18 K/uL (0.00-0.50); Eosinophils % (auto) 3.3 %; Hypochromasia Present; Immature Granulocytes # (auto) 0.47 K/uL (0.01-0.20); Immature Granulocytes % (auto) 8.7 %; Lymphocytes # (auto) 1.54 K/uL (1.20-3.40); Lymphocytes % (auto) 28.5 %; Monocytes # (auto) 0.69 K/uL (0.11-0.59); Monocytes % (auto) 12.8 %; Neutrophils # (auto) 2.49 K/uL (1.40-6.50)
[2023-07-07] MEDS: INSULIN ASPART PER UNIT CHARGE SC SCH ×4 (09:04→20:55)
[2023-07-07] MEDS: CIPROFLOXACIN 500 MG TAB PO SCH ×2 (09:05→20:50)
[2023-07-07] MEDS: METOPROLOL SUCC 50MG EXT REL TAB PO SCH (09:05)
[2023-07-07] MEDS: busPIRone 5 MG TAB PO SCH ×3 (09:05→20:49)
[2023-07-07] MEDS: ASPIRIN 81 MG ECTAB PO SCH (09:06)
[2023-07-07] MEDS: metroNIDAZOLE 500 MG TAB PO SCH ×2 (09:06→20:49)
[2023-07-07] MEDS: FAMOTIDINE 20 MG TAB PO SCH ×2 (09:06→20:50)
[2023-07-07] MEDS: ISOSORBIDE MONO EXTENDED REL 30 MG TABCR PO SCH (09:06)
[2023-07-07] MEDS: DULoxetine HCL 30 MG CAP PO SCH (09:06)
[2023-07-07] MEDS: PANTOprazole 40 MG TAB PO SCH ×2 (09:07→20:51)
[2023-07-07] MEDS: HEPARIN SOD 5,000 UNIT/0.5 ML VIAL SQ SCH ×2 (09:07→20:51)
[2023-07-07] MEDS: FLUTICASONE FUROATE 100MCG 14 PUFFS/INHALER INH SCH (09:08)
[2023-07-07] MEDS: UMECLIDINIUM/VILANTEROL 62.5/25MCG 7 PUFFS/INHALER INH SCH (09:08)
[2023-07-07] MEDS: LANTUS PER UNIT CHARGE SC SCH (09:17)
[2023-07-07] MEDS ORDERED: POTASSIUM CHLORIDE CRTAB 20 MEQ TABCR PO STA (10:47)
[2023-07-07] MEDS: MAGNESIUM SULFATE / D5W 1 GM/100 ML BAG IV SCH ×2 (11:38→13:31)
--- NOTE | 2023-07-07 22:04 | Hospitalist Progress Note ---
Date of Service July 07, 2023 Assessment & Plan (1) Bacteremia: Plan: 2nd e.coli source - proctitis cont cipro - today is day #7 of abx plan 14 days of abx in total (2) Severe sepsis: Plan: with + blood cultures at time of admission. Pathogen - e.coli. source - urine, proctitis. s/p zosyn early in admission --> then transitioned to cipro. labs stable except low K/low mag. previous leukocytosis resolved. (3) Acute UTI (urinary tract infection): Plan: e.coli + gamma strep s/p zosyn IV early in admission which would have covered both pathogens now on cipro for e.coli in blood cont ramirez (4) Proctitis: Plan: likely stercoral colitis s/p zosyn early in admission; now on cipro/flagyl x 1 additional week impaction resolved moving bowels c diff negative cipro/flagyl PO x 1 week then stop all abx (5) Fall: Plan: multifactorial causes in setting of repeated hospitalizations/cervical radiculopathy/bacteremia/etc CT head negative for acute CVA/fracture cont PT/OT rehab at d/c (6) Elevated LFTs: Plan: improving repeat LFTs next 48 hours etiology? reactive to #1? patient is s/p lap precious in the past (7) Hypoglycemia: Plan: resolved was likely due to physical stress of illness (8) Abdominal pain: Plan: resolved likely was due to fecal impaction/stercoral colitis/proctitis (9) Urinary retention: Plan: Recurrent During 06/26 to 06/29 admission had ramirez catheter for retention Was removed at discharge Upon re-admission on 07/01 was in retention once again with 1 L of urine in bladder at time of ramirez placement in ER CT a/p on 06/26 and 07/01 with b/l hydronephrosis suggesting chronic urinary retention would leave ramirez for now and send to urology post-d/c for TOV and w/u (10) CAD (coronary artery disease): Plan: Hx CAD s/p PCI (LAD, Cx, RCA). 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 - both BID dosing *Distal esophageal thickening noted on imaging* Last EGD 05/2022 with esophagitis needs GI f/u post-d/c for repeat EGD (12) Hypomagnesemia: Plan: low once again today mag sulfate 2 grams x 1 repeat mag level am (13) DVT prophylaxis: Plan: heparin 5000 BID (14) Diabetes mellitus, type 2: Plan: cont lantus-novolog a1c 11.5% in 04/2023 going back to 2017 no a1c has been <7% at any time Plan hold on discharge today - mild confusion, poor appetite, and low mag/low K likely to be here until Wednesday dispo - [facility] Admission and Anticipated Discharge Date Admission Date: July 02, 2023 Subjective patient resting in bed during the visit her mag sulfate IV was running staff report she has been slightly confused eating has been poor skipped breakfast today, then had very little at lunch denies pain in any location denies rectal pain denies abd pain no nausea or emesis had 1 loose stool earlier today Review of Systems Review of Systems: gen - no fevers or chills cv - no orthopnea pulm - no cough or dyspnea Physical Exam Physical Exam: gen - NAD, pleasant mouth - MMM neck - no JVD heart - RRR, s1 s2, no murmur lungs - CTA b/l abd - soft NT ND BS+ ext - no edema, pulses 2+ b/l psych - oriented to person, place, and month/year Results & Data Results & Data Vital Signs (Past 12 Hours) Vital Signs Temp Pulse Pulse Resp BP BP Pulse Ox 07/07/23 19:56 36.5 C 77 20 150/82 H 96 07/07/23 16:12 36.9 C 63 20 141/65 H 96 07/07/23 15:26 66 07/07/23 11:50 36.8 C 67 18 161/80 H 96 O2 Del Method 07/07/23 19:56 Room Air 07/07/23 16:12 Room Air 07/07/23 15:26 07/07/23 11:50 Room Air Laboratory Results Laboratory Results 07/06/23 07/07/23 07/07/23 20:14 06:05 07:38 WBC 5.41 RBC 3.21 L Hgb 8.8 L Hct 26.5 L MCV 82.6 MCH 27.4 MCHC 33.2 RDW Std Deviation 48.7 H RDW Coeff of Tino 16.0 H Plt Count 130 MPV 10.9 Immature Gran % (Auto) 8.7 Neut % (Auto) 46.0 Lymph % (Auto) 28.5 [place] % (Auto) 12.8 Eos % (Auto) 3.3 Baso % (Auto) 0.7 Neut # (Auto) 2.49 Lymph # (Auto) 1.54 [place] # (Auto) 0.69 H Eos # (Auto) 0.18 Baso # (Auto) 0.04 Immature Gran # (Auto) 0.47 H Hypochromasia Present Sodium 138 Potassium 3.4 L Chloride 110 H Carbon Dioxide 23 Anion Gap 5 BUN 12 Creatinine 0.89 Est Cr Clr Drug Dosing 56.0 Est GFR ( Amer) 73.0 Est GFR (Non-Af Amer) 63.0 BUN/Creatinine Ratio 13.5 Glucose 92 POC Glucose 134 H 101 H Calcium 8.0 L Magnesium 1.5 L Total Bilirubin 0.4 AST 15 ALT 53 H Alkaline Phosphatase 190 H Total Protein 4.9 L Albumin 2.4 L Globulin 2.5 Albumin/Globulin Ratio 1.0 Stl C. diff Tox B Gene SARS-CoV-2 (PCR) 07/07/23 07/07/23 11:19 11:34 WBC RBC Hgb Hct MCV MCH MCHC RDW Std Deviation RDW Coeff of Tino Plt Count MPV Immature Gran % (Auto) Neut % (Auto) Lymph % (Auto) [place] % (Auto) Eos % (Auto) Baso % (Auto) Neut # (Auto) Lymph # (Auto) [place] # (Auto) Eos # (Auto) Baso # (Auto) Immature Gran # (Auto) Hypochromasia Sodium Potassium Chloride Carbon Dioxide Anion Gap BUN Creatinine Est Cr Clr Drug Dosing Est GFR ( Amer) Est GFR (Non-Af Amer) BUN/Creatinine Ratio Glucose POC Glucose 118 H Calcium Magnesium Total Bilirubin AST ALT Alkaline Phosphatase Total Protein Albumin Globulin Albumin/Globulin Ratio Stl C. diff Tox B Gene SARS-CoV-2 (PCR) NEGATIVE PG Care Time/CCT Total # of Minutes Spent Total Time Spent with Patient: Total time spent is greater than 50% in coordination of care (as documented) at patient's floor/unit and/or counseling patient: Coding Level of Care Code 07102 SUB INP/OBS CARE 2/35MIN Diagnoses Bacteremia R78.81 Severe sepsis A41.9; R65.20 Acute UTI (urinary tract infection) N39.0 Proctitis K62.89 Fall W19.XXXA Elevated LFTs R79.89 Hypoglycemia E16.2 Abdominal pain R10.9 Urinary retention R33.9 Coronary artery disease involving [place] coronary artery of [place] heart, angina presence unspecified I25.10 Associated angina: angina presence unspecified Coronary Disease-Associated Artery/Lesion type: [place] artery [place] vs. 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 transplanted heart: [place] heart Qualified Code(s): I25.10 - Atherosclerotic heart disease of [place] coronary artery without angina pectoris (11) Mckeon esophagus Mckeon's esophagus type: without dysplasia Qualified Code(s): K22.70 - Mckeon's esophagus without dysplasia
[2023-07-08] MEDS: INSULIN ASPART PER UNIT CHARGE SC SCH ×4 (08:52→21:31)
[2023-07-08] MEDS: UMECLIDINIUM/VILANTEROL 62.5/25MCG 7 PUFFS/INHALER INH SCH (08:53)
[2023-07-08] MEDS: FLUTICASONE FUROATE 100MCG 14 PUFFS/INHALER INH SCH (08:53)
[2023-07-08] MEDS: PANTOprazole 40 MG TAB PO SCH ×2 (08:54→21:33)
[2023-07-08] MEDS: ISOSORBIDE MONO EXTENDED REL 30 MG TABCR PO SCH (08:55)
[2023-07-08] MEDS: metroNIDAZOLE 500 MG TAB PO SCH ×2 (08:55→21:31)
[2023-07-08] MEDS: busPIRone 5 MG TAB PO SCH ×3 (08:56→21:34)
[2023-07-08] MEDS: CIPROFLOXACIN 500 MG TAB PO SCH ×2 (08:56→21:35)
[2023-07-08] MEDS: DULoxetine HCL 30 MG CAP PO SCH (08:57)
[2023-07-08] MEDS: FAMOTIDINE 20 MG TAB PO SCH ×2 (08:58→21:36)
[2023-07-08] MEDS: METOPROLOL SUCC 50MG EXT REL TAB PO SCH (08:58)
[2023-07-08] MEDS: ASPIRIN 81 MG ECTAB PO SCH (08:58)
[2023-07-08] MEDS: HEPARIN SOD 5,000 UNIT/0.5 ML VIAL SQ SCH ×2 (08:59→21:36)
[2023-07-08] MEDS: LANTUS PER UNIT CHARGE SC SCH (09:01)
[2023-07-08 13:14] LABS: BUN Creatinine Ratio 11.7 (10-20); Calcium 8.1 mg/dl (8.6-10.3); Creatinine Clr Calc Pharmacy 64.8 ml/min; Est GFR (African American) 86.9 ml/min; Magnesium 1.4 mg/dl (1.7-2.4)
--- NOTE | 2023-07-08 14:10 | Pharmacy Report ---
Pharmacy Glycemic Short Note 2 - Date of Service July 08, 2023 - Glycemic Short BSG Results (Last 24 hours): 07/07/23 07/07/23 07/08/23 16:54 19:55 07:43 Glucose POC Glucose 128 H 162 H 126 H 07/08/23 07/08/23 11:54 12:31 Glucose 160 H POC Glucose 172 H OUTPATIENT ANTIDIABETIC REGIMEN: * Lantus 20 units SC AM * Novolog SSI - CF 20, CR 5 * Metformin 1 g PO BIDM HbA1c: 11.5% (05/15/23) ASSESSMENT: 07/08/23 * BSGs yesterday were [phone] mg/dL. BSGs today are 126-172 mg/dL. * Patient received 13 units of insulin (8 units of basal and 5 units of bolus) yesterday. * Continue current regimen as BSGs relatively well controlled. Patient not eating much at this time so basal may require a decrease tomorrow. 07/06: * BSGs tightly controlled yesterday, sans lunchtime BSG of 172 mg/dL * Given lower overall BSG trend and fasting of 91 mg/dL this morning, will decrease basal this morning ~20% * No other changes to glycemic regimen anticipated for today * Plan is for discharge to SNF today or tomorrow 07/04: * Claire received 17 units of insulin yesterday, 10 units of which were basal. BSGs were: 810-32-272-138 mg/dL. * Fasting BSG was 102 mg/dL this AM. Current basal regimen seems appropriate. * Given drop in lunchtime BSG yesterday, made the decision to loosen bolus parameters at that time. Will continue with loosened scale today. Stressors stable. 07/03: * 78 yo F admitted on 07/01/23 secondary to sepsis. Pharmacy has been consulted to assist with inpatient glycemic management. Patient is a Type 2 diabetic as an outpatient. Please refer to outpatient regimen and most recent HbA1c above. * BSG upon admission was low at 49 mg/dL. Unknown when patient's last dose of insulin was prior to admission. Basal insulin was held yesterday, and BSGs were 352-340-291-241 mg/dL. Pharmacy was consulted when BSG was 283 mg/dL last evening. Of note, patient was on D5NS @ 80 mL/hr. Gave 10 units of basal and tightened Novolog. * Fasting BSG was 103 mg/dL this AM. Will continue with 10 units of basal per day. No changes to Novolog. If fasting drops below 100 mg/dL tomorrow, will need to reduce basal dose. PLAN FOR INPATIENT GLYCEMIC CONTROL: * Hold outpatient oral diabetes medications * Basal insulin - * Lantus 8 units SC daily * Bolus insulin * NovoLog per scale ACHS or Q6hrs while NPO * Goal Range: Low 110 mg/dL - High 140 mg/dL * Correction Factor: 35 mg/dL/unit * Nutritional / Prandial insulin per carb ratio of 1 unit per 12 grams CHO consumed
[2023-07-08] MEDS: MAGNESIUM SULFATE / D5W 1 GM/100 ML BAG IV SCH ×3 (17:23→21:17)
--- NOTE | 2023-07-08 19:44 | Hospitalist Progress Note ---
Date of Service July 08, 2023 Assessment & Plan (1) Bacteremia: Plan: 2nd e.coli source - proctitis +/- urine cont cipro - today is day #8 of abx plan 14 days of abx in total (2) Severe sepsis: Plan: with + blood cultures at time of admission. Pathogen - e.coli. source - urine, proctitis. s/p zosyn early in admission --> then transitioned to cipro. labs stable except low mag. previous leukocytosis resolved. poor appetite is resolved. was likely due to infection. (3) Acute UTI (urinary tract infection): Plan: e.coli + gamma strep s/p zosyn IV early in admission which would have covered both pathogens now on cipro for e.coli in blood cont ramirez (4) Proctitis: Plan: likely stercoral colitis s/p zosyn early in admission; now on cipro/flagyl x 1 additional week impaction resolved moving bowels c diff negative cipro/flagyl PO x 1 week then stop all abx (5) Fall: Plan: multifactorial causes in setting of repeated hospitalizations/cervical radiculopathy/bacteremia/etc CT head negative for acute CVA/fracture cont PT/OT rehab at d/c (6) Elevated LFTs: Plan: improving repeat LFTs tomorrow am etiology? reactive to #1? patient is s/p lap precious in the past (7) Hypoglycemia: Plan: resolved was likely due to physical stress of illness BSGs acceptable (8) Abdominal pain: Plan: resolved likely was due to fecal impaction/stercoral colitis/proctitis (9) Urinary retention: Plan: Recurrent During 06/26 to 06/29 admission had ramirez catheter for retention Was removed at discharge Upon re-admission on 07/01 was in retention once again with 1 L of urine in bladder at time of ramirez placement in ER CT a/p on 06/26 and 07/01 with b/l hydronephrosis suggesting chronic urinary retention would leave ramirez for now and send to urology post-d/c for TOV and w/u (10) CAD (coronary artery disease): Plan: Hx CAD s/p PCI (LAD, Cx, RCA). 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 - both BID dosing *Distal esophageal thickening noted on imaging* Last EGD 05/2022 with esophagitis needs GI f/u post-d/c for repeat EGD (12) Hypomagnesemia: Plan: low once again today mag sulfate 3 grams x 1 repeat mag level am likely due to recent diarrhea, poor oral intake/appetite, etc (13) DVT prophylaxis: Plan: heparin 5000 BID (14) Diabetes mellitus, type 2: Plan: cont lantus-novolog a1c 11.5% in 04/2023 going back to 2017 no a1c has been <7% at any time (15) Acute metabolic encephalopathy: Plan: 2nd to severe sepsis resolved seems back to normal cognitive status Plan dispo - [facility] 07/09? Admission and Anticipated Discharge Date Admission Date: July 02, 2023 Subjective tele stable overnight patient feeling well reports her appetite is much better no abd pain no N/V diarrhea resolved no new complaints Review of Systems Review of Systems: cv - no orthopnea pulm - no dyspnea at rest or with exertion neuro - no dizziness GI - no N/V/pain Physical Exam Physical Exam: gen - NAD, pleasant - looks well mouth - MMM neck - no JVD heart - RRR, s1 s2, no murmur lungs - CTA b/l abd - soft NT ND BS+ ext - no edema, pulses 2+ b/l Results & Data Results & Data Vital Signs (Past 12 Hours) Vital Signs Temp Pulse Pulse Resp BP Pulse Ox O2 Del Method 07/08/23 17:37 73 07/08/23 16:22 37.0 C 69 20 126/59 L 94 Room Air 07/08/23 12:33 36.6 C 66 18 158/75 H 96 Room Air 07/08/23 08:00 37.0 C 63 18 145/81 H 97 Room Air Laboratory Results Laboratory Results - last 24 hr 07/07/23 07/08/23 07/08/23 19:55 07:43 11:54 Sodium Potassium Chloride Carbon Dioxide Anion Gap BUN Creatinine Est Cr Clr Drug Dosing Est GFR ( Amer) Est GFR (Non-Af Amer) BUN/Creatinine Ratio Glucose POC Glucose 162 H 126 H 172 H Calcium Magnesium 07/08/23 07/08/23 12:31 17:06 Sodium 137 Potassium 4.0 Chloride 109 H Carbon Dioxide 23 Anion Gap 5 BUN 9 Creatinine 0.77 Est Cr Clr Drug Dosing 64.8 Est GFR ( Amer) 86.9 Est GFR (Non-Af Amer) 75.0 BUN/Creatinine Ratio 11.7 Glucose 160 H POC Glucose 153 H Calcium 8.1 L Magnesium 1.4 L PG Care Time/CCT Total # of Minutes Spent Total Time Spent with Patient: Total time spent is greater than 50% in coordination of care (as documented) at patient's floor/unit and/or counseling patient: Coding Level of Care Code 69293 SUB INP/OBS CARE 2/35MIN Diagnoses Bacteremia R78.81 Severe sepsis A41.9; R65.20 Acute UTI (urinary tract infection) N39.0 Proctitis K62.89 Fall W19.XXXA Elevated LFTs R79.89 Hypoglycemia E16.2 Abdominal pain R10.9 Urinary retention R33.9 Coronary artery disease involving ho-chunk coronary artery of ho-chunk heart, angina presence unspecified I25.10 Associated angina: angina presence unspecified Coronary Disease-Associated Artery/Lesion type: ho-chunk artery [place] vs. transplanted heart: ho-chunk heart Mckeon's esophagus without dysplasia K22.70 Mckeon's esophagus type: without dysplasia Hypomagnesemia E83.42 DVT prophylaxis Z29.9 Diabetes mellitus, type 2 E11.9 Acute metabolic encephalopathy G93.41 (10) CAD (coronary artery disease) Associated angina: angina presence unspecified Coronary Disease-Associated Artery/Lesion type: ho-chunk artery [place] vs. 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
[2023-07-09 06:13] LABS: BUN Creatinine Ratio 10.3 (10-20); Calcium 7.9 mg/dl (8.6-10.3); Creatinine Clr Calc Pharmacy 63.9 ml/min; Est GFR (African American) 85.6 ml/min; Est GFR (Non-African American) 73.8 ml/min; Magnesium 1.8 mg/dl (1.7-2.4); Potassium 3.7 mmol/L (3.5-5.1)
[2023-07-09 08:33] LABS: Albumin Level 2.6 gm/dl (3.4-5.0); Bilirubin Direct 0.1 mg/dl (0-0.2); Bilirubin,Total 0.4 mg/dl (0.2-1.0); Total Protein 5.1 gm/dl (6.0-8.3)
[2023-07-09] MEDS: ASPIRIN 81 MG ECTAB PO SCH (08:37)
[2023-07-09] MEDS: busPIRone 5 MG TAB PO SCH ×2 (08:37→13:16)
[2023-07-09] MEDS: FAMOTIDINE 20 MG TAB PO SCH (08:38)
[2023-07-09] MEDS: CIPROFLOXACIN 500 MG TAB PO SCH (08:38)
[2023-07-09] MEDS: DULoxetine HCL 30 MG CAP PO SCH (08:38)
[2023-07-09] MEDS: FLUTICASONE FUROATE 100MCG 14 PUFFS/INHALER INH SCH (08:39)
[2023-07-09] MEDS: ISOSORBIDE MONO EXTENDED REL 30 MG TABCR PO SCH (08:39)
[2023-07-09] MEDS: HEPARIN SOD 5,000 UNIT/0.5 ML VIAL SQ SCH (08:39)
[2023-07-09] MEDS: METOPROLOL SUCC 50MG EXT REL TAB PO SCH (08:40)
[2023-07-09] MEDS: metroNIDAZOLE 500 MG TAB PO SCH (08:40)
[2023-07-09] MEDS: PANTOprazole 40 MG TAB PO SCH (08:40)
[2023-07-09] MEDS: INSULIN ASPART PER UNIT CHARGE SC SCH ×2 (08:45→12:49)
[2023-07-09] MEDS: LANTUS PER UNIT CHARGE SC SCH (08:46)
--- NOTE | 2023-07-09 11:49 | Discharge Summary ---
Date of Service date of admission - July 01, 2023 date of discharge - July 09, 2023 Admission HPI Per Admitting Provider Claire is a 78-year-old female with PMH of bowel obstruction, HTN, cervical radiculopathy, IBS, CAD, anxiety, depression, Mckeon's esophagus, T2DM, lumbar spondylosis, diabetic gastroparesis, CKD stage III, and constipation who presented to the [facility] ED on 07/01 with her daughter and her significant other for ongoing low bad/back pain and inability to care for herself at home. The patient was recently admitted to [facility] from 06/18-06/24 for constipation, hyperkalemia, urinary retention, and SHERRIE on CKD. She was noted to have a large stool ball in the rectum and concern for stercoral colitis, as well as BL hydronephrosis on CT of the abd/pelvis. She was started on a heavy bowel regimen, she ws noted to be having soft stool at the time of discharge. She had a ramirez catheter placed at the time of admission with improvement of urine output and renal function at the time of discharge. Her Ramirez catheter was removed prior to discharge. Her hyperkalemia improved with initiation of ramirez catheter, improvement in renal function, and one dose of patiromer. The patient had [facility] staying [facility] prior to last admission and requested to be discharged home at the time of last admission. At the time of the exam the patient was lying in bed in no acute distress with her significant other and daughter sitting bedside, history was obtained from all. At the beginning of my exam the patient was pale and lethargic. Evaluation of beside BSG showed a glucose of 49. She was given an amp of dextrose with improvement in color and cognition. Since discharge home on 06/29 the patient has had a quick clinical decline. She and her daughter state that the patient fell out of bed the first night home, she was on the ground overni ght until they found her the next morning. She has had very poor oral intake over this time. She states that she is still experiencing lower abdominal/low back pain. She confirms that this is the same pain as her last admission but improved. She had one loose BM this am but denies significant diarrhea. She was using tylenol at home for pain. She has been taking 2, 500 mg Tablets, q4h, over the past 48 hours. She denies recent alcohol use. She was unable to eat anything this am prompting her family to call EMS to have her evaluated. She is currently living by herself. Family and her significant other check on her when they can. She previously had 5 hours of home health a week, but her home health nurse left the company and they do not have a replacement at this time. I explained that the ideal situation is to eventually discharge her home with home health, however, she has clearly proven that she is unable to care for herself at this time. I explained that she may need placement if home health canno be established, she and her family expressed understanding. She denies recent fever, chest pain, SOB, nausea, vomiting, dysuria, hematuria, melena, bloody BM's, and LE swelling. She wishes to be a DNR/DNI and would want her daughter, Elizabeth, to make medical decisions for her if she cannot make them herself. Principal Diagnosis 1. e coli bacteremia - likely due to proctitis and/or UTI 2. UTI 3. abnormal LFTs - uncertain cause, but nearly normal at discharge 4. failure to thrive - due to #1, #2, and likely other factors 5. urinary retention s/p ramirez placement 6. CT scan with bilateral hydronephrosis suggesting chronic [place] [facility] [facility] [place] 7. CT scan with findings suggestive of esophagitis [place] [facility] [place] 8. severe fecal impaction/stercoral colitis - resolved 9. low magnesium - resolved 10. low potassium - resolved 11. diabetes 12. CAD 13. h/o Mckeon's esophagus Discharge Exam gen - NAD, pleasant - looks well mouth - MMM neck - no JVD heart - RRR, s1 s2, no murmur lungs - CTA b/l abd - soft NT ND BS+ ext - no edema, pulses 2+ b/l psych - a/o x 3 Discharge Data Allergies Allergy/AdvReac Type Severity Reaction Status Date / Time cephalexin Allergy Intermediate Rash and Verified 07/01/23 16:23 itchiness Cephalosporins Allergy Intermediate Rash and Verified 07/01/23 16:23 itchiness Sulfa (Sulfonamide Allergy Intermediate Hives Verified 07/01/23 16:23 Antibiotics) Consultations Infectious Diseases PT, OT Ordered Studies Abdomen/Pelvis CT 07/01/23 13:[address] WITH IV CONTRAST CT DOSE: 2149.46 mGy.cm HISTORY: Abd pain, s/p abd surgery TECHNIQUE: Multiaxial CT images of the abdomen and pelvis were performed following the use of intravenous contrast. A dose lowering technique was utilized adhering to the principles of ALARA. COMPARISON STUDY: Abdomen and pelvis CT 06/26/2023. FINDINGS: The large amount of stool within the rectum has significantly improved in the interval. There is a small amount of liquid stool remaining. However, there is been interval development of moderate circumferential thickening of the rectum with perirectal fat stranding/edema. This is consistent with a nonspecific proctitis. No pneumoperitoneum or pneumatosis identified. Question m ild thickening of the sigmoid colon may be due to underdistention. There is moderate stool remaining within the colon which is similar to the prior study. No dilated loops of small bowel identified. Mildly distended and fluid-filled distal esophagus. There is a small hiatus hernia. There is mild thickening of the distal esophagus. The stomach is fluid-filled but nondistended. There is mild body wall edema. The bladder remains severely distended. The bladder contains a small amount of gas. This could be due to recent catheterization. Prior hysterectomy. Mild fullness within the bilateral renal collecting systems persists. This may be due to the distended bladder. A few subcentimeter hypodense lesions within the kidneys are too small to characterize but statistically represent cysts. No retroperitoneal or pelvic lymphadenopathy. Trace perihepatic ascites is noted. Otherwise, the liver, spleen, adrenal glands, and pancreas are unremarkable. Prior cholecystectomy. This likely accounts for the prominent common bile duct which remains unchanged. The main portal vein is patent. No retroperitoneal lymphadenopathy. Calcified plaque within the normal caliber abdominal aorta. The lung bases are clear. No acute fractures identified. IMPRESSION: 1. The large amount of stool within the rectum has significantly improved in the interval. There is a small amount of liquid stool remaining. However, there is been interval development of moderate circumferential thickening of the rectum with perirectal fat stranding/edema. This is consistent with a nonspecific proctitis. 2. Mild bilateral hydronephrosis again noted. This is likely related to the bladder distention. There is gas within the bladder which could be due to recent catheterization. Clinical correlation recommended. 3. Mild thickening and mild distention of the distal esophagus which is fluid- filled. This favors a nonspecific esophagitis. 4. Additional findings as described above. ACT 112: Negative or not required by law. Electronically signed by: Vijay Vega M.D. 07/01/2023 4:[address] 07/01/23 14:32 CT OF THE HEAD WITHOUT CONTRAST CLINICAL HISTORY: Trauma. COMPARISON STUDY: Head CT June 19, 2023. MRI of the brain October 31, 2018. TECHNIQUE: Helical axial images of the head were obtained without IV contrast. Automated exposure control was utilized for the study. A dose lowering technique was utilized adhering to the principles of ALARA. FINDINGS: No acute intracranial hemorrhage, midline shift or mass effect is present. The ventricular system is unremarkable. The basal cisterns are patent. No extra-axial collections are present. There are no findings to suggest acute dural sinus thrombosis or acute territorial infarct. There is no acute calvarial fracture. Small amount of fluid within the right mastoid air cells is unchanged. IMPRESSION: 1. No acute intracranial findings. 2. No acute calvarial fracture. ACT 112: Negative or not required by law. Electronically signed by: Jimmy Chavarria M.D. 07/01/2023 3:44 PM Femur X-Ray 07/01/23 17:22 XR hip RT min 2V, XR femur RT 2V routine CLINICAL HISTORY: fall right femur/hip pain COMPARISON STUDY: Abdomen and pelvis CT 07/01/2023. Pelvis and right femur 11/06/2019. FINDINGS: No fracture or dislocation within the right hip or right femur. The visualized pelvic bones are intact. Mild vascular calcifications are noted. 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 There is a right total knee arthroplasty. The hardware appears intact. IMPRESSION: No fractures within the right hip or right femur. ACT 112: Negative or not required by law. Electronically signed by: Vijay Vega M.D. 07/01/2023 7:22 PM Hip X-Ray 07/01/23 17:22 XR hip RT min 2V, XR femur RT 2V routine CLINICAL HISTORY: fall right femur/hip pain COMPARISON STUDY: Abdomen and pelvis CT 07/01/2023. Pelvis and right femur 11/06/2019. FINDINGS: No fracture or dislocation within the right hip or right femur. The visualized pelvic bones are intact. Mild vascular calcifications are noted. 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 There is a right total knee arthroplasty. The hardware appears intact. IMPRESSION: No fractures within the right hip or right femur. ACT 112: Negative or not required by law. Electronically signed by: Vijay Vega M.D. 07/01/2023 7:22 PM Chest X-Ray 07/01/23 18:05 XR chest 1V portable HISTORY: fall COMPARISON: Chest and abdominal series 06/29/2023. FINDINGS: No pneumothorax. No pleural effusions. The heart is top normal in size. No evidence for pulmonary edema. No new focal lung consolidations to suggest pneumonia. The no acute fractures identified. IMPRESSION: No acute process. ACT 112: Negative or not required by law. Electronically signed by: Vijay Vega M.D. 07/01/2023 6:57 PM Chest X-Ray 07/02/23 09:36 XR chest 1V portable HISTORY: Shortness of breath. COMPARISON: Chest 07/01/2023. FINDINGS: No pneumothorax. No pleural effusions. Mild interstitial thickening, unchanged. This is likely chronic. No new focal lung consolidations to suggest a pneumonia. No evidence for pulmonary edema. The cardiac silhouette remains top normal in size. Degenerative changes within the shoulders. No acute fractures. IMPRESSION: No significant change compared to the prior study. No acute process. ACT 112: Negative or not required by law. Electronically signed by: Vijay Vega M.D. 07/02/2023 10:22 AM Venous Doppler Study 07/04/23 14:02 BILATERAL LOWER EXTREMITY VENOUS DOPPLER CLINICAL HISTORY: Lower extremity swelling. r/o dvt COMPARISON STUDY: Left lower extremity venous Doppler ultrasound March 30, 2023. Right lower extremity venous Doppler ultrasound December 18, 2022. TECHNIQUE: Sonography of the deep venous system of the bilateral lower extremities was performed. Compression and augmentation were evaluated. FINDINGS: The bilateral common femoral, superficial femoral and popliteal veins were compressible. Augmentation was normal. Flow was shown within the deep calf vessels however the left calf vessels were not well visualized. A small left popliteal cyst is similar to prior ultrasound, measuring 3 x 1 x 2 cm. Bilateral lower extremity edema is incidentally noted. IMPRESSION: 1. No evidence of deep venous thrombus within the bilateral lower extremities although left calf vessels suboptimally visualized. 2. Small left popliteal cyst, similar to prior ultrasound. ACT 112: Negative or not required by law. Electronically signed by: Jimmy Chavarria M.D. 07/04/2023 3:55 PM Hospital Course (1) Bacteremia: 2nd e.coli source - proctitis +/- urine initially received zosyn, then cipro, for total of 14 days of antibiotic therapy (2) Severe sepsis: with + blood cultures at time of admission. Pathogen - e.coli. source - urine, proctitis. s/p zosyn early in admission --> then transitioned to cipro. 14 day course of IV/PO antibiotics will be completed. (3) Acute UTI (urinary tract infection): e.coli + gamma strep s/p zosyn IV early in admission which would have covered both pathogens now on cipro for e.coli in blood cont ramirez at discharge (4) Proctitis: likely due to fecal impaction/stercoral colitis s/p zosyn early in admission; now on cipro/flagyl x 1 additional week impaction resolved moving bowels c diff negative cipro/flagyl PO x 1 week upon discharge then stop all antibiotics (5) Fall: multifactorial causes in setting of repeated hospitalizations/cervical radiculopathy/bacteremia/etc CT head negative for acute CVA/fracture cont PT/OT rehab needed at d/c (6) Elevated LFTs: present on admission LFTs improved and were nearly normal at time of discharge etiology of abnormal LFTs uncertain. reactive to #1? patient is s/p lap precious in the past. she is not on statin therapy or other medicines that would cause abnormal LFTs. regardless of etiology the LFTs were just about normal by time of discharge. (7) Hypoglycemia: resolved was likely due to physical stress of illness. BSGs acceptable for the majority of her stay. (8) Abdominal pain: resolved likely was due to fecal impaction/stercoral colitis/proctitis. (9) Urinary retention: Recurrent During 06/26 to 06/29 admission had ramirez catheter for retention. Was removed at discharge. Upon re-admission on 07/01 was in retention once again with 1 L of urine in bladder at time of ramirez placement in ER. CT a/p on 06/26 and 07/01 with b/l hydronephrosis suggesting chronic urinary retention. would leave ramirez for now and send to urology post-d/c for trial of void & additional work-up. (10) CAD (coronary artery disease): Hx CAD s/p PCI (LAD, Cx, RCA). Continue aspirin, imdur, metoprolol succinate. (11) Mckeon esophagus: Continue pantoprazole and famotidine - both BID dosing *Distal esophageal thickening noted on imaging* Last EGD 05/2022 with esophagitis needs GI f/u post-d/c for consideration of repeat EGD (12) Hypomagnesemia: required copious replacement. mag level was normal on day of discharge. likely due to recent diarrhea, poor oral intake/appetite, etc. (13) Diabetes mellitus, type 2: cont lantus-novolog a1c 11.5% in 04/2023 going back to 2017 no a1c has been <7% at any time hold metformin while at rehab (14) Acute metabolic encephalopathy: 2nd to severe sepsis resolved seems back to normal cognitive status Plan dispo - [facility] Total Time Total Time Spent Total Time Spent (In Minutes): 40 Discharge Plan Discharge Items Patient Disposition: Transfer Shelter Fac Reason For Visit: FAILURE TO THRIVE, ELEVATED LFTS, URINARY RETENTIO Discharge Diagnosis: 1. e coli bacteremia - likely due to proctitis and/or UTI 2. UTI 3. abnormal LFTs - uncertain cause, but nearly normal at discharge 4. failure to thrive - due to #1, #2, and likely other factors 5. urinary retention s/p ramirez placement 6. CT scan with bilateral hydronephrosis suggesting chronic obstruction - [facility] f/u needed 7. CT scan with findings suggestive of esophagitis - [facility] f/u needed 8. severe fecal impaction/stercoral colitis - resolved 9. low magnesium - resolved 10. low potassium - resolved 11. diabetes 12. CAD 13. h/o Mckeon's esophagus Activity: Resume your previous activity Non-emergency contact: Primary Care Provider, Ferris Wheel Attendant and Urologist Call non-emergency contact if: you have any medication questions and your symptoms worsen Follow-up/Referrals: Berkley Sen PA-C [Primary Care Provider] - Christian Gracia DO [Physician] - (f/u for Mckeon's esophagus; needs EGD ) Landy Pimentel CRNP [Nurse Practitioner] - (Ms Pimentel or any urology provider - 7-10 days; urinary retention, ramirez, hydronephrosis on CT scan, TOV. ) Diet: Carb Consistent or DM2 and Heart Healthy Addtl Attending Provider Instructions: Ms Rosas was hospitalized due to recurrent urinary retention, UTI, failure to thrive, and e.coli bacteremia. She improved with IV/oral antibiotics, constipation medication, replacement of electrolytes, and time. Recommendations - 1. Check fingerstick blood sugars AC and HS. 2. CBC, BMP, LFTs, and Magnesium in 3-4 days to ensure stable electrolytes, etc. 3. Maintain ramirez catheter until [facility]. Ideally she sees urology within the next 7-10 days for the urinary retention problem. 4. PT/OT - eval and Rx. 5. h/o Mckeon's esophagus - needs to see [facility] to discuss another EGD. CT scan of abd/pelvis showed findings suggestive of esophagitis. Pending Studies at Discharge: No Stand-Alone Forms: [facility] Skilled Items Patient informed of condition?: Yes DNR: Yes Discharge Level of Care: Skilled Communicable Disease: No Discharge Prognosis: Stable Lines: None Urinary Catheter: Yes (placed 07/01/23) Medications and DC Order Prescriptions: New Saccharomyces boulardii 250 mg capsule 250 mg PO DAILY 7 Days Qty: 7 0RF Continued ezetimibe [Zetia] 10 mg tablet 10 mg PO QAM Qty: 90 3RF metoprolol succinate 100 mg tablet extended release 24 hr 100 mg PO QAM Qty: 90 3RF pantoprazole 40 mg tablet,delayed release (DR/EC) 40 mg PO BID Qty: 180 3RF Rx Instructions: TAKE 1 TABLET BY MOUTH TWICE A DAY rosuvastatin 40 mg tablet 40 mg PO QAM Qty: 90 3RF folic acid 1 mg tablet 1 mg PO QAM Rx Instructions: TAKE 1 TABLET BY MOUTH ONCE DAILY IN THE MORNING ergocalciferol (vitamin D2) 1,250 mcg (50,000 unit) capsule 50,000 unit PO WK Rx Instructions: SUNDAYS tramadol 50 mg tablet 50 mg PO TID PRN (Reason: pain) Qty: 20 0RF Trelegy Ellipta 100-62.5-25 mcg blister with device 1 inh inhalation DAILY Qty: 28 11RF Rx Instructions: rinse mouth thoroughly after each dose. aspirin 81 mg Tablet,Delayed Release (Dr/Ec) 81 mg PO QAM Rx Instructions: NOT SURE IF PT IS STILL TAKING. Vitamin B 12 Cypo Value 200+20 1,000 mcg PO DAILY buspirone 10 mg tablet 10 mg PO TID Rx Instructions: TAKE ONE TABLET BY MOUTH THREE TIMES DAILY famotidine 20 mg tablet 20 mg PO BID isosorbide mononitrate 30 mg tablet extended release 24 hr 30 mg PO QAM duloxetine 30 mg capsule,delayed release(DR/EC) 30 mg PO QAM Qty: 90 3RF Changed acetaminophen [Tylenol Extra Strength] 500 mg tablet 1,000 mg PO Q6H PRN (Reason: PAIN/FEVER) Qty: 1 0RF insulin aspart U-100 [Novolog U-100 Insulin aspart] 100 unit/mL Solution See Rx Instructions .ROUTE .COMPLEX Qty: 10 0RF Rx Instructions: sliding scale --Goal BSG Range: Low 120mg/dL, High 150mg/dL --Correction Factor: 35 mg/dL/unit --Carbohydrate ratio = 12 g/unit --BSGs ACHS if eating, q6h if npo lisinopril 10 mg tablet 5 mg PO QAM Qty: 1 0RF lidocaine [Lidoderm] 5 % adhesive patch,medicated 1 patch TOP DAILY PRN (Reason: pain) Qty: 1 0RF Rx Instructions: not on list from pharmacy leave on most painful area for up to 12 hrs diclofenac sodium 1 % gel 4 g topical QID PRN (Reason: Pain) Qty: 100 2RF Rx Instructions: apply to a single knee, shoulder, ankle, etc insulin glargine [Lantus U-100 Insulin] 100 unit/mL Solution 8 unit SC QAM Qty: 10 0RF Held metformin 500 mg tablet 1,000 mg PO BID Hold Instructions: hold for now, consider resuming while at rehab Discharge Orders: Discharge Order (Routine); Ordered 07/09/23 Ordered By: Roger Stinson/Other Patient Handouts: ED Ramirez Catheter, Care, ED Urinary Retention, Female Admission Data Admit Date/Time: 07/02/23 12:51 Attending Provider: Roger Vazquez Admit Provider: Roger Archer Primary Care Provider: Berkley Sen Other Providers: Roger Archer; Lurdes Wilburn; Master Rice; Roxane Randolph; Ava Arguello; Deflina Hawk; Diana Todd; Eleanor Gonsalves; Jax Dorsey; Syl Carballo; Dahiana García; [facility] Other Interventions: Discharge Summary Assessment (RN) Last Done: 07/09/23 13:22 Coding Level of Care Code 57951 INP/OBS DISCH >30 MIN Diagnoses Bacteremia R78.81 Severe sepsis A41.9; R65.20 Acute UTI (urinary tract infection) N39.0 Proctitis K62.89 Fall W19.XXXA Elevated LFTs R79.89 Hypoglycemia E16.2 Abdominal pain R10.9 Urinary retention R33.9 Coronary artery disease involving [place] coronary artery of [place] heart, angina presence unspecified I25.10 Associated angina: angina presence unspecified Coronary Disease-Associated Artery/Lesion type: [place] artery [place] vs. transplanted heart: [place] heart Mckeon's esophagus without dysplasia K22.70 Mckeon's esophagus type: without dysplasia Hypomagnesemia E83.42 Diabetes mellitus, type 2 E11.9 Acute metabolic encephalopathy G93.41
[2023-07-09] MEDS: UMECLIDINIUM/VILANTEROL 62.5/25MCG 7 PUFFS/INHALER INH SCH (12:50)
== END 2023-07-09 14:24 | DRG 872 ==
LOC: ED 12:45 → 3W 12:45 → SUATTDRO 17:21 → 3W 21:22 → 4W 07-02 12:50 → SUATTDRO 07-02 12:51

== ENCOUNTER 2023-10-25 10:37 | Observation (INO) ==
[2023-10-25] MEDS: SODIUM CHLORIDE 0.9% 1,000 ML IV ONE (11:38)
[2023-10-25 11:54] LABS: Basophils # (auto) 0.09 K/uL (0.00-0.20); Basophils % (auto) 1.2 %; Eosinophils # (auto) 0.16 K/uL (0.00-0.50); Eosinophils % (auto) 2.1 %; Hematocrit (blood only) 37.4 % (37.0-47.0); Hemoglobin 12.8 g/dl (12.0-16.0); Immature Granulocytes # (auto) 0.03 K/uL (0.01-0.20); Immature Granulocytes % (auto) 0.4 %; Lymphocytes # (auto) 3.01 K/uL (1.20-3.40); Lymphocytes % (auto) 39.3 %; Mean Corpuscular Hemoglobin 26.7 pg (25.0-34.0); Mean Corpuscular Hgb Conc 34.2 g/dL (32.0-36.0); Mean Corpuscular Volume 77.9 fL (80.0-100.0); Mean Platelet Volume 10.5 fL (9.4-12.4); Monocytes % (auto) 6.5 %; Neutrophils # (auto) 3.86 K/uL (1.40-6.50); Neutrophils % (auto) 50.5 %; Platelet Count 247 K/uL (130-400); RDW Coefficient of Variation 14.6 % (11.5-14.5); RDW Standard Deviation 40.2 fL (36.4-46.3); White Blood Count 7.65 K/ul (4.8-10.8)
--- NOTE | 2023-10-25 11:56 | XRay Report ---
XR chest 1V portable HISTORY: weakness COMPARISON: Chest 07/02/2023. FINDINGS: The lungs are clear. Cardiac silhouette is normal in size. No pleural effusions. No pneumot horax. IMPRESSION: No acute process. ACT 112: Negative or not required by law. Electronically signed by: Vijay Vega M.D. 10/25/2023 11:55 AM
[2023-10-25 12:23] LABS: Prothrombin Time 11.4 Seconds (9.0-12.0)
[2023-10-25 12:33] LABS: Adenovirus PCR Not Detected (NotDetected); Bordetella parapertussis PCR Not Detected (NotDetected); Bordetella pertussis PCR Not Detected (NotDetected); Chlamydia pneumoniae PCR Not Detected (NotDetected); Coronavirus 229E PCR Not Detected (NotDetected); Coronavirus CoV-2 (COVID19)PCR Not Detected (NotDetected); Coronavirus HKU1 PCR Not Detected (NotDetected); Coronavirus NL63 PCR Not Detected (NotDetected); Coronavirus OC43PCR Not Detected (NotDetected); Human Metapneumovirus PCR Not Detected (NotDetected); Influenza A PCR Not Detected (NotDetected); Influenza B PCR Not Detected (NotDetected); Mycoplasma pneumoniae PCR Not Detected (NotDetected); Parainfluenza Virus 1 PCR Not Detected (NotDetected); Parainfluenza Virus 2 PCR Not Detected (NotDetected); Parainfluenza Virus 3 PCR Not Detected (NotDetected); Parainfluenza Virus 4 PCR Not Detected (NotDetected); Respiratory Syncytial VirusPCR Not Detected (NotDetected); Rhinovirus/Enterovirus PCR Not Detected (NotDetected)
[2023-10-25 12:39] LABS: Albumin Level 4.1 gm/dl (3.4-5.0); Bilirubin,Total 0.5 mg/dl (0.2-1.0); Calcium 10.1 mg/dl (8.6-10.3); Magnesium 1.3 mg/dl (1.7-2.4)
--- NOTE | 2023-10-25 12:44 | Emergency Department Note ---
Impression & Plan Hyperkalemia, Hypomagnesemia, Hypophosphatemia, CKD (chronic kidney disease), stage III, Cognitive dysfunction ED Provider Note NAME: SHIRA CUNNINGHAM AGE: 78 SEX: F : 1945 ARRIVES VIA: Walk-In INFORMANT: Patient ED PROVIDER(S): Rigo William MD CHIEF COMPLAINT: Shortness of breath, referred PLAN: Disposition: Admit MEDICAL DECISION MAKING: The patient is a pleasant 78-year-old woman with a past medical history of dementia, IBS, hypertension, diabetes, gastroparesis, chronic pain syndrome, CAD, CKD who presents to the emergency department via walk-in referred by her neurology office for symptoms of fatigue and shortness of breath with exertion which the patient reports has been ongoing for the past week. Patient denies any cough, congestion, chest pain, abdominal pain, vomiting or diarrhea. She denies any urinary symptoms. The patient is a poor historian. On evaluation patient looked distress, afebrile with blood pressure 90/60s and vital signs otherwise stable. She appears clinically dry. She has no focal logic deficits. EKG without overt acute ischemia. CXR negative for acute cardiopulmonary process per my personal preliminary review/interpretation. WBC, H/H and platelets within normal limits. Chemistry without metabolic acidosis. Potassium was notably elevated at 7 with creatinine marginally elevated 1.58. Glucose 221. Magnesium 1.3 similar to recent low values and phosphorus 1.3 with IV repletion provided. AST, ALT and alk phos mildly elevated and similar to prior range values though increased from recent. CPK within normal limits. High-sensitivity troponin 6.5, within normal limits. TSH is normal limits. UA ordered and pending. Respiratory viral panel/[employer] was negative. Given the patient's only minimally impaired renal function suspect hyperkalemia likely related to patient's underlying dementia and suspected excess intake of her potassium supplement in setting of having low potassium prior to September. Initially, unclear if patient's magnesium supplement has been ineffective or if the patient has been inadvertently not taking it. Given suspicion for rapid correction of her hyperkalemia in the setting 1 g of calcium gluconate was ordered due to degree of elevation though without EKG changes. 10 units of regular insulin was administered as well as IV fluid hydration. Dextrose administration was deferred given the patient was already hyperglycemic. Given the patient's symptoms with extensive electrolyte abnormalities patient was referred to hospital service for admission. Case was discussed with JULI Willingham hospitalist, who will evaluate the patient for admission. Further management per admitting team. Triage Nursing notes reviewed and agree them. Prior/external medical records reviewed Vital Signs: reviewed Differential diagnosis: Infection, dehydration, metabolic abnormality, hypo/hyperglycemia, electrolyte disturbance, anemia, hypoxia, cardiac sources, intracerebral event, toxicologic, neurologic, as well as other pathologies. ER treatment provided: See below. Diagnostics interpreted by me: ECG: Normal sinus rhythm, 74 bpm, no ectopy, nonspecific ST and T wave abnormality, no overt ST elevation or depression, no hyperacute T waves and no QRS prolongation. QTc 412, QRS 68. Cardiac Monitoring: An order for continuous cardiac monitoring was placed and demonstrated normal sinus rhythm, 74 bpm, no ectopy. Laboratory studies: See below Imaging studies: See below Consultation(s): Case was discussed with JULI Willingham hospitalist, who will evaluate the patient for admission. HPI: The patient is a pleasant 78-year-old woman with a past medical history of dementia, IBS, hypertension, diabetes, gastroparesis, chronic pain syndrome, CAD, CKD who presents to the emergency department via walk-in referred by her neurology office for symptoms of fatigue and shortness of breath with exertion which the patient reports has been ongoing for the past week. Patient denies any cough, congestion, chest pain, abdominal pain, vomiting or diarrhea. She denies any urinary symptoms. The patient is a poor historian. ROS: See above HPI for pertinent positives & negatives. A total of 10 systems reviewed and were otherwise negative. VITALS:See Below PHYSICAL EXAMINATION: GENERAL: Awake, alert, fatigued-appearing, in no distress HENT: Normocephalic, atraumatic. Oropharynx dry mucous membranes. EYES: Normal conjunctiva. Sclera non-icteric. NECK: Supple. No nuchal rigidity. FROM. No JVD. RESPIRATORY: Clear to auscultation. CARDIAC: Regular rate, normal rhythm. Extremities warm and well perfused. Pulses equal. ABDOMEN: Soft, non-distended. No tenderness to palpation. No rebound or guarding. No masses. RECTAL: Deferred. MUSCULOSKELETAL: Chest examination reveals no tenderness. The back is symmetrical on inspection without obvious abnormality. There is no CVA tenderness to palpation. No joint edema. LOWER EXTREMITIES: Calves are equal size bilaterally and non-tender. No edema. No discoloration. NEURO: No focal sensory or motor deficits noted. SKIN: No rash or jaundice noted. ED COURSE: Critical Care: I have personally spent greater than 35 minutes of critical care time in the direct management of this patient. This includes bedside care, interpretation of diagnostic studies, and testing, discussion with consultants, patient, and family members, and other required patient management activities. This 35 minutes is in excess of all separately billable procedures. Rigo William MD Past Med/Surg History Medical History Hypomagnesemia Poorly controlled type 2 diabetes mellitus Cervical spinal stenosis Edema Type 2 diabetes mellitus with chronic kidney disease Hyperosmolar hyperglycemic state (HHS) History of COVID-2020 - resolved Hyperglycemia due to type 2 diabetes mellitus Acute non-ST elevation myocardial infarction (NSTEMI) 11/28/2021 had [facility] medical management and follow with dr abdullahi apt 02/09/2022 Folic acid deficiency Vitamin B12 deficiency Back pain Chest pain chronic chest pain and cardiac is negative Dyslipidemia Cervical pain (neck) Chronic pain syndrome Depression Diabetic gastroparesis Diabetic peripheral neuropathy GERD without esophagitis Lumbar spondylosis Mckeon esophagus CAD (coronary artery disease) s/p stents to RCA November 2005; s/p stents to LAD, LCx in January 2006; s/p stents to RCA in 08/2006 IBS (irritable bowel syndrome) Diabetes mellitus, type 2 IDDM Myocardial Infarction CA- November 2005, January 2006, Aug 2006 3 total within an 8 month span--HX OF CATH [address] [facility] [place], FOLLOWS WITH DR. ABDULLAHI Surgical History Status post trigger finger release right thumb S/P coronary artery stent placement s/p stents to RCA November 2005; s/p stents to LAD, LCx in January 2006; s/p stents to RCA in 08/2006 History of total hysterectomy with bilateral salpingo-oophorectomy (BSO) History of lumbar spinal fusion History of total right knee replacement (TKR) History of esophageal dilatation History of colonoscopy with polypectomy History of esophagogastroduodenoscopy (EGD) History of tooth extraction all teeth History of cholecystectomy History of cataract surgery BL History of cardiac cath last [address] [facility] [place], no stents--s/p stents to RCA November 2005; s/p stents to LAD, LCx in January 2006; s/p stents to RCA in 08/2006 Family History Brother Myocardial infarction Anxiety Heart disease Hypertension Cancer Sister Family history of reaction to anesthesia difficulty waking Hypertension Heart disease Myocardial infarction Anxiety Cancer Diabetes Father Anxiety Heart disease Hypertension Mother Anxiety Hypertension Heart disease Unknown Cancer skin, GI Denies family history of Ovarian cancer Prostate cancer Breast cancer Colorectal cancer Stroke Social History Smoking Status: Never smoker Tobacco Type: Cigarettes Age Started Using Tobacco: 18; Age Quit Using Tobacco: 57; Second Hand Exposure: No; Do You Dip or Chew Tobacco: No; Hx Alcohol Use: No Hx Substance Use: No Preferred Language: Romanian Communication Ability: Effective Visual Impairment: Limited Hearing Ability: Normal 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 Beliefs That Will Affect Care: None marital status: / Current Living Situation: Alone current occupational status: retired and disabled How many Children do You have: 3 Other Information That Helps Us Care for You: No Feels Safe at Home: Yes Safety Concerns: Feels Safe At This Time Childhood Exposure to Second-Hand Smoke: No Diet: regular caffeine: Yes (drinks coffee, diet pepsi occasionally ) during the past year weight has: remained stable Dental Care, Regularly: No Physical Activity Frequency: Does not Exercise Seatbelt Use: always Sunscreen Use: No Assistive Devices: Denture - Upper, Glasses and Wheelchair Allergies Allergies Allergy/AdvReac Type Severity Reaction Status Date / Time cephalexin Allergy Intermediate Rash and Verified 10/25/23 09:12 itchiness Cephalosporins Allergy Intermediate Rash and Verified 10/25/23 09:12 itchiness Sulfa (Sulfonamide Allergy Intermediate Hives Verified 10/25/23 09:12 Antibiotics) Home Meds Home Medications Medication Instructions Recorded Confirmed aspirin 81 mg tablet,delayed 81 mg PO QAM 10/24/21 10/25/23 release magnesium hydroxide 400 mg/5 mL 5 ml PO DAILY PRN Indigestion 07/20/23 10/25/23 oral suspension (Milk of Magnesia) cyanocobalamin (vitamin B-12) 1,000 mcg PO QAM 10/25/23 10/25/23 1,000 mcg tablet (Vitamin B-12) duloxetine 60 mg capsule,delayed 60 mg PO QAM 10/25/23 10/25/23 release ergocalciferol (vitamin D2) 1,250 50,000 unit PO WK 10/25/23 10/25/23 mcg (50,000 unit) capsule (Vitamin D2) fluticasone fur. 100 mcg-umeclid 1 inh inhalation QAM 10/25/23 10/25/23 62.5 mcg-vilant 25 mcg inhalat.powder (Trelegy Ellipta) folic acid 1 mg tablet 1 mg PO QAM 10/25/23 10/25/23 insulin glargine 100 unit/mL (3 10 unit subcut BID 10/25/23 10/25/23 mL) subcutaneous pen (Basaglar KwikPen U-100 Insulin) lisinopril 5 mg tablet 5 mg PO QAM 10/25/23 10/25/23 potassium chloride 20 mEq 20 meq PO BID 10/25/23 10/25/23 tablet,extended release(part/cryst) Previous Rx's Medication Instructions Recorded acetaminophen 500 mg tablet 1,000 mg (2 x 500 mg) PO Q6H PRN 07/09/23 (Tylenol Extra Strength) PAIN/FEVER #1 tab diclofenac sodium 1 % topical gel 4 g topical QID PRN Pain #100 grams 07/09/23 lidocaine 5 % topical patch 1 patch topical DAILY PRN pain #1 07/09/23 (Lidoderm) ea Lift Chair #1 ea 09/06/23 ezetimibe 10 mg tablet (Zetia) 10 mg PO QAM #30 tabs 09/22/23 famotidine 20 mg tablet 20 mg PO BID #60 tabs 09/22/23 gabapentin 100 mg capsule 100 mg PO TID #90 caps 09/22/23 isosorbide mononitrate 30 mg 30 mg PO QAM #30 tabs 09/22/23 tablet,extended release 24 hr magnesium oxide 400 mg (241.3 mg 400 mg PO BID #60 tabs 09/22/23 magnesium) tablet metformin 500 mg tablet,extended 1,000 mg (2 x 500 mg) PO BID #120 09/22/23 release 24 hr tabs metoprolol succinate 100 mg 100 mg PO QAM #30 tabs 09/22/23 tablet,extended release 24 hr pantoprazole 40 mg tablet,delayed 40 mg PO BID #60 tabs 09/22/23 release rosuvastatin 40 mg tablet 40 mg PO QAM #60 tabs 09/22/23 buspirone 10 mg tablet 10 mg PO BID #180 tabs 09/27/23 Results & Data (ED) Vital Signs Vital Signs - 24 hr 10/25/23 10:41 10/25/23 10:57 10/25/23 10:59 Temperature 36.0 C L Temperature Source Temporal Artery Scan Pulse Rate 70 75 74 Pulse Rate [Apical] Pulse Rate from SpO2 Sensor 76 Respiratory Rate 18 14 Respiratory Effort / Characteristics Spontaneous Blood Pressure 99/66 L Blood Pressure [Left Arm] Blood Pressure Mean 77 Blood Pressure Mean [Left Arm] Pulse Oximetry 95 99 Oxygen Delivery Method Room Air Sepsis Recent Fever Within 48 Hours No Sepsis New/Unexplained Change in Mental Status N/A Sepsis Action Taken by Nursing No Action Required 10/25/23 11:00 10/25/23 11:00 10/25/23 11:10 Temperature Temperature Source Pulse Rate 74 73 Pulse Rate [Apical] Pulse Rate from SpO2 Sensor 74 72 Respiratory Rate 17 15 Respiratory Effort / Characteristics Blood Pressure 111/61 Blood Pressure [Left Arm] Blood Pressure Mean 74 Blood Pressure Mean [Left Arm] Pulse Oximetry 99 100 Oxygen Delivery Method Sepsis Recent Fever Within 48 Hours Sepsis New/Unexplained Change in Mental Status Sepsis Action Taken by Nursing 10/25/23 11:20 10/25/23 11:30 10/25/23 11:37 Temperature Temperature Source Pulse Rate 72 73 Pulse Rate [Apical] Pulse Rate from SpO2 Sensor Respiratory Rate 19 15 Respiratory Effort / Characteristics Blood Pressure 105/66 Blood Pressure [Left Arm] Blood Pressure Mean 76 Blood Pressure Mean [Left Arm] Pulse Oximetry Oxygen Delivery Method Sepsis Recent Fever Within 48 Hours Sepsis New/Unexplained Change in Mental Status Sepsis Action Taken by Nursing 10/25/23 11:37 10/25/23 11:38 10/25/23 11:40 Temperature Temperature Source Pulse Rate 71 70 Pulse Rate [Apical] Pulse Rate from SpO2 Sensor 68 70 Respiratory Rate 17 15 Respiratory Effort / Characteristics Blood Pressure Blood Pressure [Left Arm] Blood Pressure Mean Blood Pressure Mean [Left Arm] Pulse Oximetry 100 99 100 Oxygen Delivery Method Room Air Sepsis Recent Fever Within 48 Hours Sepsis New/Unexplained Change in Mental Status Sepsis Action Taken by Nursing 10/25/23 11:50 10/25/23 12:00 10/25/23 12:00 Temperature Temperature Source Pulse Rate 70 69 Pulse Rate [Apical] Pulse Rate from SpO2 Sensor 70 69 Respiratory Rate 19 17 Respiratory Effort / Characteristics Blood Pressure 113/58 L Blood Pressure [Left Arm] Blood Pressure Mean 66 Blood Pressure Mean [Left Arm] Pulse Oximetry 99 100 Oxygen Delivery Method Sepsis Recent Fever Within 48 Hours Sepsis New/Unexplained Change in Mental Status Sepsis Action Taken by Nursing 10/25/23 12:10 10/25/23 12:20 10/25/23 12:30 Temperature Temperature Source Pulse Rate 69 70 Pulse Rate [Apical] 64 Pulse Rate from SpO2 Sensor 69 73 Respiratory Rate 16 18 15 Respiratory Effort / Characteristics Blood Pressure Blood Pressure [Left Arm] 99/59 L Blood Pressure Mean Blood Pressure Mean [Left Arm] 72 Pulse Oximetry 100 99 96 Oxygen Delivery Method Room Air Sepsis Recent Fever Within 48 Hours Sepsis New/Unexplained Change in Mental Status Sepsis Action Taken by Nursing 10/25/23 12:30 10/25/23 12:30 10/25/23 12:40 Temperature Temperature Source Pulse Rate 68 67 Pulse Rate [Apical] Pulse Rate from SpO2 Sensor 68 67 Respiratory Rate 15 16 Respiratory Effort / Characteristics Blood Pressure 99/59 L Blood Pressure [Left Arm] Blood Pressure Mean 65 Blood Pressure Mean [Left Arm] Pulse Oximetry 97 97 Oxygen Delivery Method Sepsis Recent Fever Within 48 Hours Sepsis New/Unexplained Change in Mental Status Sepsis Action Taken by Nursing 10/25/23 12:50 10/25/23 13:00 10/25/23 13:00 Temperature Temperature Source Pulse Rate 66 64 Pulse Rate [Apical] Pulse Rate from SpO2 Sensor Respiratory Rate 15 16 Respiratory Effort / Characteristics Blood Pressure 95/56 L Blood Pressure [Left Arm] Blood Pressure Mean 71 Blood Pressure Mean [Left Arm] Pulse Oximetry Oxygen Delivery Method Sepsis Recent Fever Within 48 Hours Sepsis New/Unexplained Change in Mental Status Sepsis Action Taken by Nursing 10/25/23 13:10 10/25/23 13:20 10/25/23 13:30 Temperature Temperature Source Pulse Rate 65 65 63 Pulse Rate [Apical] Pulse Rate from SpO2 Sensor Respiratory Rate 15 17 15 Respiratory Effort / Characteristics Blood Pressure Blood Pressure [Left Arm] Blood Pressure Mean Blood Pressure Mean [Left Arm] Pulse Oximetry Oxygen Delivery Method Sepsis Recent Fever Within 48 Hours Sepsis New/Unexplained Change in Mental Status Sepsis Action Taken by Nursing 10/25/23 13:30 10/25/23 13:40 10/25/23 13:45 Temperature Temperature Source Pulse Rate 63 62 Pulse Rate [Apical] Pulse Rate from SpO2 Sensor Respiratory Rate 14 18 Respiratory Effort / Characteristics Blood Pressure 112/63 Blood Pressure [Left Arm] Blood Pressure Mean 66 Blood Pressure Mean [Left Arm] Pulse Oximetry Oxygen Delivery Method Sepsis Recent Fever Within 48 Hours Sepsis New/Unexplained Change in Mental Status Sepsis Action Taken by Nursing 10/25/23 13:45 10/25/23 13:50 10/25/23 14:00 Temperature Temperature Source Pulse Rate 66 Pulse Rate [Apical] Pulse Rate from SpO2 Sensor Respiratory Rate 16 Respiratory Effort / Characteristics Blood Pressure 110/63 103/56 L Blood Pressure [Left Arm] Blood Pressure Mean 77 68 Blood Pressure Mean [Left Arm] Pulse Oximetry Oxygen Delivery Method Sepsis Recent Fever Within 48 Hours Sepsis New/Unexplained Change in Mental Status Sepsis Action Taken by Nursing 10/25/23 14:00 10/25/23 14:10 10/25/23 14:15 Temperature Temperature Source Pulse Rate 62 65 Pulse Rate [Apical] Pulse Rate from SpO2 Sensor Respiratory Rate 16 19 Respiratory Effort / Characteristics Blood Pressure 93/58 L Blood Pressure [Left Arm] Blood Pressure Mean 73 Blood Pressure Mean [Left Arm] Pulse Oximetry Oxygen Delivery Method Sepsis Recent Fever Within 48 Hours Sepsis New/Unexplained Change in Mental Status Sepsis Action Taken by Nursing 10/25/23 14:15 10/25/23 14:20 Temperature Temperature Source Pulse Rate 66 71 Pulse Rate [Apical] Pulse Rate from SpO2 Sensor Respiratory Rate 15 19 Respiratory Effort / Characteristics Blood Pressure Blood Pressure [Left Arm] Blood Pressure Mean Blood Pressure Mean [Left Arm] Pulse Oximetry Oxygen Delivery Method Sepsis Recent Fever Within 48 Hours Sepsis New/Unexplained Change in Mental Status Sepsis Action Taken by Nursing Laboratory Data Attestation: I reviewed the patient's lab results. 10/25/23 11:35 10/25/23 14:33 Lab Results 10/25/23 10/25/23 10/25/23 Range/Units 11:35 13:24 14:33 WBC 7.65 (4.8-10.8) K/ul RBC 4.80 (4.20-5.40) M/uL Hgb 12.8 (12.0-16.0) g/dl Hct 37.4 (37.0-47.0) % MCV 77.9 L (80.0-100.0) fL MCH 26.7 (25.0-34.0) pg MCHC 34.2 (32.0-36.0) g/dL RDW Std Deviation 40.2 (36.4-46.3) fL RDW Coeff of Tino 14.6 H (11.5-14.5) % Plt Count 247 (130-400) K/uL MPV 10.5 (9.4-12.4) fL Immature Gran % (Auto) 0.4 % Neut % (Auto) 50.5 % Lymph % (Auto) 39.3 % Bent % (Auto) 6.5 % Eos % (Auto) 2.1 % Baso % (Auto) 1.2 % Neut # (Auto) 3.86 (1.40-6.50) K/uL Lymph # (Auto) 3.01 (1.20-3.40) K/uL Bent # (Auto) 0.50 (0.11-0.59) K/uL Eos # (Auto) 0.16 (0.00-0.50) K/uL Baso # (Auto) 0.09 (0.00-0.20) K/uL Immature Gran # (Auto) 0.03 (0.01-0.20) K/uL PT 11.4 (9.0-12.0) Seconds INR 1.0 (0.9-1.1) Sodium 136 139 (136-145) mmol/L Potassium 7.0 H* 4.9 D (3.5-5.1) mmol/L Chloride 107 112 H (98-107) mmol/L Carbon Dioxide 23 25 (21-32) mmol/L Anion Gap 6 2 L (3-11) BUN 31 H 28 H (6-23) mg/dl Creatinine 1.58 H 1.33 H (0.6-1.2) mg/dl Est Cr Clr Drug Dosing 27.4 32.5 ml/min Est GFR ( Amer) 36.5 44.9 ml/min Est GFR (Non-Af Amer) 31.5 38.7 ml/min BUN/Creatinine Ratio 19.6 21.1 H (10-20) Glucose 221 H 125 H (70-99(Fasting)) mg/dl POC Glucose 173 H (70-99) mg/dl Calcium 10.1 9.3 (8.6-10.3) mg/dl Phosphorus 1.3 L* (2.5-4.9) mg/dl Magnesium 1.3 L (1.7-2.4) mg/dl Total Bilirubin 0.5 (0.2-1.0) mg/dl AST 78 H (13-39) U/L ALT 132 H (7-52) U/L Alkaline Phosphatase 128 H (34-104) U/L Total Creatine Kinase 45 (26-192) U/L Troponin I High Sens 6.5 (0-14) pg/ml B-Natriuretic Peptide 32 (0-100) pg/ml Total Protein 7.2 (6.0-8.3) gm/dl Albumin 4.1 (3.4-5.0) gm/dl Globulin 3.1 (2.5-4.0) gm/dl Albumin/Globulin Ratio 1.3 (0.9-2) TSH 3.768 (0.300-4.500) uIu/ml Administered Medications Buspirone HCl (Buspirone 5 Mg Tab) 10 mg PO BID LEON Stop: 11/24/23 20:59 Last Admin: 10/25/23 21:39 Dose: 10 mg Documented By: RADHAR Famotidine (Famotidine 20 Mg Tab) 20 mg PO BID LEON Stop: 11/24/23 20:59 Last Admin: 10/25/23 21:38 Dose: 20 mg Documented By: RADHAR Gabapentin (Gabapentin 100 Mg Cap) 100 mg PO TID LEON Stop: 11/24/23 20:59 Last Admin: 10/25/23 21:39 Dose: 100 mg Documented By: NRR Heparin Sodium (Porcine) (Heparin Sod 5,000 Unit/0.5 Ml Vial) 5,000 units SQ Q12 LEON Stop: 11/24/23 20:59 Last Admin: 10/25/23 21:38 Dose: 5,000 units Documented By: NRR Insulin Aspart (Insulin Aspart Per Unit Charge) 0 units SC ACHS LEON Stop: 11/24/23 16:56 Last Admin: 10/25/23 21:40 Dose: Not Given Documented By: Admin: 10/25/23 18:19 Dose: Not Given Documented By: RENE Co-signed By: LNRao Insulin Glargine (Lantus Per Unit Charge) 10 units SQ BID LEON Stop: 11/24/23 20:59 Last Admin: 10/25/23 21:37 Dose: 10 units Documented By: NRR Co-signed By: MARGARITA Magnesium Oxide (Magnesium Oxide 400 Mg Tab) 400 mg PO BID LEON Stop: 11/24/23 20:59 Last Admin: 10/25/23 21:39 Dose: 400 mg Documented By: NRR Pantoprazole Sodium (Pantoprazole 40 Mg Tab) 40 mg PO BID LEON Stop: 11/24/23 20:59 Last Admin: 10/25/23 21:38 Dose: 40 mg Documented By: NRR Discontinued Medications Sodium Chloride (Nss) 1,000 mls @ 999 mls/hr IV .Q1H1M ONE Stop: 10/25/23 12:22 Last Infusion: 10/25/23 13:15 Dose: Infused Documented By: Admin: 10/25/23 11:38 Dose: 999 mls/hr Documented By: ML Calcium Gluconate () 1,000 mg in 60 mls @ 240 mls/hr IV NOW STA Stop: 10/25/23 13:10 Last Infusion: 10/25/23 13:58 Dose: Infused Documented By: Admin: 10/25/23 13:20 Dose: 240 mls/hr Documented By: ML Magnesium Sulfate/Dextrose (Magnesium Sulfate / D5w) 1 gm in 100 mls @ 100 mls/hr IV Q1H LEON Stop: 10/25/23 14:58 Last Infusion: 10/25/23 17:39 Dose: Infused Documented By: Admin: 10/25/23 16:22 Dose: 100 mls/hr Documented By: Infusion: 10/25/23 15:56 Dose: Infused Documented By: Admin: 10/25/23 14:15 Dose: 100 mls/hr Documented By: ML Insulin Human Regular 10 units (/ Syringe) 9.9 mls @ 3 mls/sec IV ONE STA Stop: 10/25/23 13:01 Last Admin: 10/25/23 14:15 Dose: 3 mls/sec Documented By: INGRIS Co-signed By: THIERRY Magnesium Sulfate/Dextrose (Magnesium Sulfate / D5w) 1 gm in 100 mls @ 100 mls/hr IV NOW STA Stop: 10/25/23 14:01 Last Infusion: 10/25/23 14:16 Dose: Infused Documented By: Admin: 10/25/23 13:15 Dose: 100 mls/hr Documented By: THIERRY Sodium Phosphate 9 mmol/ (Sodium Chloride) 253 mls @ 170 mls/hr IV ONE ONE Stop: 10/25/23 14:59 Last Infusion: 10/25/23 15:56 Dose: Infused Documented By: Admin: 10/25/23 13:58 Dose: 170 mls/hr Documented By: ML Magnesium Sulfate/Dextrose (Magnesium Sulfate / D5w) 1 gm in 100 mls @ 50 mls/hr IV Q2H LEON Stop: 10/25/23 20:56 Last Infusion: 10/25/23 22:05 Dose: Infused Documented By: Admin: 10/25/23 20:05 Dose: 50 mls/hr Documented By: Infusion: 10/25/23 20:05 Dose: Infused Documented By: Admin: 10/25/23 18:17 Dose: 50 mls/hr Documented By: RENE Sodium Phosphate (Sodium Phosphate 3 Mmol/1 Ml Infusion) 9 mmol IV NOW STA Stop: 10/25/23 12:57 Last Admin: 10/25/23 13:53 Dose: Not Given Documented By: ML Sodium Zirconium Cyclosilicate (Sodium Zirconium Cyclosilicate 10 Gm Packet) 10 gm PO ONE ONE Stop: 10/25/23 15:05 Last Admin: 10/25/23 16:22 Dose: 10 gm Documented By: WANG Imaging Data Radiologist's Impression: Chest X-Ray 10/25/23 11:21 XR chest 1V portable HISTORY: weakness COMPARISON: Chest 07/02/2023. FINDINGS: The lungs are clear. Cardiac silhouette is normal in size. No pleural effusions. No pneumothorax. IMPRESSION: No acute process. ACT 112: Negative or not required by law. Electronically signed by: Vijay Vega M.D. 10/25/2023 11:55 AM Discharge Plan Visit Data Chief Complaint: Referred by Doctor Stated Complaint: PALE/SOB/MORE FORGETFUL - REFERRED NEUROLOGIST ED Provider: Rigo William Discharge Problem: Hyperkalemia, Hypomagnesemia, Hypophosphatemia, CKD (chronic kidney disease), stage III, Cognitive dysfunction Patient Disposition: Admitted As Inpatient Discharge Instructions Interventions: ED Discharge Assessment Last Done: 10/25/23 17:49 Discharge Problem: CKD (chronic kidney disease), stage III Qualifiers: Chronic kidney disease stage 3 subtype: unspecified whether 3a or 3b Qualified Code(s): N18.30 - Chronic kidney disease, stage 3 unspecified
[2023-10-25 12:48] LABS: Albumin Globulin Ratio 1.3 (0.9-2); BUN Creatinine Ratio 19.6 (10-20); Creatinine Clr Calc Pharmacy 27.4 ml/min; Est GFR (African American) 36.5 ml/min; Est GFR (Non-African American) 31.5 ml/min; Globulin 3.1 gm/dl (2.5-4.0); Phosphorus 1.3 mg/dl (2.5-4.9); Total Protein 7.2 gm/dl (6.0-8.3); Troponin I High Sensitivity 6.5 pg/ml (0-14)
[2023-10-25 12:54] LABS: Thyroid Stimulating Hormone 3.768 uIu/ml (0.300-4.500)
[2023-10-25] MEDS: MAGNESIUM SULFATE / D5W 1 GM/100 ML BAG IV STA (13:15)
[2023-10-25] MEDS: CALCIUM GLUCONATE 1,000 MG/60 ML BAG IV STA (13:20)
--- NOTE | 2023-10-25 13:45 | History & Physical Report ---
Date of Service October 25, 2023 Assessment & Plan (1) Dyspnea on exertion: Plan: Presents with worsening dyspnea on exertion over the last month Vital signs are normal, not hypoxic, chest x-ray is clear, respiratory viral bio fire panel is negative, afebrile, no cough, no weight gain and in fact has had weight loss, no peripheral edema LFTs are elevated which could be from hepatic congestion from right-sided heart failure No evidence of acidosis Troponin negative, hemoglobin normal Unclear cause at this time but potentially from acute on chronic HFpEF? Does have a history of COPD but patient reports using her inhalers at home makes no difference -Admit to PCU for telemetry monitoring -Check BNP, echocardiogram, consider cardiology consultation -Consider diuretics but will see what BNP and echocardiogram show to incorporate into the decision -Monitor pulse ox -Continue maintenance COPD inhaler (2) Hyperkalemia: Plan: Potassium found to be 7.0 on arrival, ECG normal, hemodynamically stable Potentially from exogenous potassium chloride tablets at home although she was supposed to have stopped these 1 month ago. Also takes lisinopril Daughter reports patient eats a lot of bananas Was given a gram of IV calcium gluconate, 10 units of IV insulin, 1 L of normal saline -Will repeat BMP now and follow in the morning -Hold all potassium supplementation and hold lisinopril -Continue insulin regimen for diabetes -Add on Lokelma x 1 dose -Low potassium diet (3) CKD (chronic kidney disease), stage III: Plan: With acute kidney injury in the setting of CKD stage III Baseline creatinine around 0.7-1.1. Creatinine on admission is 1.58 Does have a history of urinary retention-will BladderScan -Hold home lisinopril, received 1 L normal saline -Follow BMP -Avoid nephrotoxins -renally dose meds when appropriate (4) Hypomagnesemia: Plan: Magnesium at 1.3 on admission, likely secondary to PPI use and has been chronically low in the past despite taking oral supplementation Give a total 4 g of IV magnesium sulfate today Continue home oral magnesium Follow levels in the morning Hypophosphatemia-replaced with sodium phosphorus IV in the ER Follow phosphorus level in the morning (5) Abnormal LFTs: Plan: AST, ALT, and alkaline phosphatase all elevated, CK normal She has had this in the past when she was admitted with sepsis Could be right-sided heart failure and hepatic congestion as above She has no abdominal pains, has a history of cholecystectomy Hold statin and Zetia Follow LFTs (6) CAD (coronary artery disease): Plan: S/p stents to the RCA, LAD, and LCx Most recent cardiac catheterization in 11/2021 with NSTEMI showed severe multivessel CAD severe in-stent restenosis of RCA stent and subtotal occlusion of OM 2, medical therapy recommended, consideration for CABG but does not have suitable targets Follows with Dr. Abdullahi Continue aspirin, holding statin and Zetia for elevated LFTs for now Continue metoprolol, isosorbide Holding lisinopril for acute kidney injury and hyperkalemia (7) Anxiety: Plan: Continue home BuSpar and duloxetine No acute issues (8) Hypertension: Plan: Blood pressures are acceptable Continue home metoprolol, isosorbide, but holding lisinopril (9) Mckeon esophagus: Plan: Continue PPI, famotidine No acute issues (10) Poorly controlled type 2 diabetes mellitus: Plan: Hemoglobin A1c 12.8% last month and was started on increased dose of Lantus Continue Lantus 10 units twice daily Did receive 10 units of IV regular insulin for hyperkalemia today Accu-Cheks before meals and at bedtime with supplemental NovoLog Repeat hemoglobin A1c in the morning Holding home metformin (11) Diabetic peripheral neuropathy: Plan: Continue low-dose gabapentin (12) Cognitive dysfunction: Plan: Seen by neurology on 10/24 for initial workup for cognitive impairment Recommends brain MRI-will defer to outpatient setting after discharge Supportive care (13) Vitamin B12 deficiency: Plan: Most recent level is normal Continue home supplementation (14) Folic acid deficiency: Plan: Most recent level a few months ago was normal Continue home supplementation Hemoglobin is now normal Plan DVT prophylaxis heparin SQ Disposition-admit to telemetry DNR/DNI Discussed care with daughter at the bedside, they requested service excellence to help complete healthcare power of sales representative livestock paperwork which was done in the emergency room. History of Present Illness Chief Complaint: Shortness of breath Primary Care Provider: Shiela Gipson MD This patient is a 78-year-old female with a history of cognitive impairment, CAD s/p PCI, Mckeon's esophagus, severely uncontrolled DM 2 with peripheral neuropathy, depression/anxiety who presents to the ER at the direction of the neurology PA for shortness of breath on exertion. The patient's daughter is at the bedside and provides the history mostly that the patient's been feeling increased shortness of breath over the last week. No weight gain and in fact has lost about 30 pounds over the last 6 months. The patient says from time to time she has leg swelling but currently has none. She denies any abdominal bloating or distention, no abdominal pain, no nausea/vomiting. She has been moving her bowels regularly. She notes shortness of breath and having to stop to catch her breath mostly with walking around her apartment and going up and down stairs. Denies any chest pain or pressure. Her daughter reports that they had concerns that she was having cardiac issues and that she might not have chest pain due to her diabetes. She was told to stop taking her potassium pills on 09/29 after routine outpatient blood work showed an elevated potassium of 5.2. The patient has a friend that helps her with her medications and thinks that they stopped the potassium pills but she is not sure. In the ER, she was found to have hyperkalemia with a potassium of 7.0 and low magnesium and phosphorus as well as acute kidney injury. [employer] viral respiratory panel was negative and chest x-ray negative. Vital signs were normal. Allergies Allergy/AdvReac Type Severity Reaction Status Date / Time cephalexin Allergy Intermediate Rash and Verified 10/25/23 09:12 itchiness Cephalosporins Allergy Intermediate Rash and Verified 10/25/23 09:12 itchiness Sulfa (Sulfonamide Allergy Intermediate Hives Verified 10/25/23 09:12 Antibiotics) Home Medications Medication Instructions Recorded Confirmed Type aspirin 81 mg tablet,delayed 81 mg PO QAM 10/24/21 10/25/23 History release acetaminophen 500 mg tablet 1,000 mg (2 x 500 mg) PO Q6H PRN 07/09/23 10/25/23 Rx (Tylenol Extra Strength) PAIN/FEVER #1 tab diclofenac sodium 1 % topical gel 4 g topical QID PRN Pain #100 grams 07/09/23 10/25/23 Rx lidocaine 5 % topical patch 1 patch topical DAILY PRN pain #1 07/09/23 10/25/23 Rx (Lidoderm) ea magnesium hydroxide 400 mg/5 mL 5 ml PO DAILY PRN Indigestion 07/20/23 10/25/23 History oral suspension (Milk of Magnesia) Lift Chair #1 ea 09/06/23 10/25/23 Rx ezetimibe 10 mg tablet (Zetia) 10 mg PO QAM #30 tabs 09/22/23 10/25/23 Rx famotidine 20 mg tablet 20 mg PO BID #60 tabs 09/22/23 10/25/23 Rx gabapentin 100 mg capsule 100 mg PO TID #90 caps 09/22/23 10/25/23 Rx isosorbide mononitrate 30 mg 30 mg PO QAM #30 tabs 09/22/23 10/25/23 Rx tablet,extended release 24 hr magnesium oxide 400 mg (241.3 mg 400 mg PO BID #60 tabs 09/22/23 10/25/23 Rx magnesium) tablet metformin 500 mg tablet,extended 1,000 mg (2 x 500 mg) PO BID #120 09/22/23 10/25/23 Rx release 24 hr tabs metoprolol succinate 100 mg 100 mg PO QAM #30 tabs 09/22/23 10/25/23 Rx tablet,extended release 24 hr pantoprazole 40 mg tablet,delayed 40 mg PO BID #60 tabs 09/22/23 10/25/23 Rx release rosuvastatin 40 mg tablet 40 mg PO QAM #60 tabs 09/22/23 10/25/23 Rx buspirone 10 mg tablet 10 mg PO BID #180 tabs 09/27/23 10/25/23 Rx cyanocobalamin (vitamin B-12) 1,000 mcg PO QAM 10/25/23 10/25/23 History 1,000 mcg tablet (Vitamin B-12) duloxetine 60 mg capsule,delayed 60 mg PO QAM 10/25/23 10/25/23 History release ergocalciferol (vitamin D2) 1,250 50,000 unit PO WK 10/25/23 10/25/23 History mcg (50,000 unit) capsule (Vitamin D2) fluticasone fur. 100 mcg-umeclid 1 inh inhalation QAM 10/25/23 10/25/23 History 62.5 mcg-vilant 25 mcg inhalat.powder (Trelegy Ellipta) folic acid 1 mg tablet 1 mg PO QAM 10/25/23 10/25/23 History insulin glargine 100 unit/mL (3 10 unit subcut BID 10/25/23 10/25/23 History mL) subcutaneous pen (Basaglar KwikPen U-100 Insulin) lisinopril 5 mg tablet 5 mg PO QAM 10/25/23 10/25/23 History potassium chloride 20 mEq 20 meq PO BID 10/25/23 10/25/23 History tablet,extended release(part/cryst) Past Med/Surg History Medical History Hypomagnesemia Poorly controlled type 2 diabetes mellitus Cervical spinal stenosis Edema Type 2 diabetes mellitus with chronic kidney disease Hyperosmolar hyperglycemic state (HHS) History of COVID-2020 - resolved Hyperglycemia due to type 2 diabetes mellitus Acute non-ST elevation myocardial infarction (NSTEMI) 11/28/2021 had [place] medical management and follow with dr abdullahi apt 02/09/2022 Folic acid deficiency Vitamin B12 deficiency Back pain Chest pain chronic chest pain and cardiac is negative Dyslipidemia Cervical pain (neck) Chronic pain syndrome Depression Diabetic gastroparesis Diabetic peripheral neuropathy GERD without esophagitis Lumbar spondylosis Mckeon esophagus CAD (coronary artery disease) s/p stents to RCA November 2005; s/p stents to LAD, LCx in January 2006; s/p stents to RCA in 08/2006 IBS (irritable bowel syndrome) Diabetes mellitus, type 2 IDDM Myocardial Infarction [place]- November 2005, January 2006, Aug 2006 3 total within an 8 month span--HX [place] CATH [place] [facility] [place] WITH DR. ABDULLAHI Surgical History Status post trigger finger release right thumb S/P coronary artery stent placement s/p stents to RCA November 2005; s/p stents to LAD, LCx in January 2006; s/p stents to RCA in 08/2006 History of total hysterectomy with bilateral salpingo-oophorectomy (BSO) History of lumbar spinal fusion History of total right knee replacement (TKR) History of esophageal dilatation History of colonoscopy with polypectomy History of esophagogastroduodenoscopy (EGD) History of tooth extraction all teeth History of cholecystectomy History of cataract surgery BL History of cardiac cath last [place] [facility] [place]--s/p stents to RCA November 2005; s/p stents to LAD, LCx in January 2006; s/p stents to RCA in 08/2006 Family History Brother Myocardial infarction Anxiety Heart disease Hypertension Cancer Sister Family history of reaction to anesthesia difficulty waking Hypertension Heart disease Myocardial infarction Anxiety Cancer Diabetes Father Anxiety Heart disease Hypertension Mother Anxiety Hypertension Heart disease Unknown Cancer skin, GI Denies family history of Ovarian cancer Prostate cancer Breast cancer Colorectal cancer Stroke Social History Smoking Status: Former smoker Tobacco Type: Cigarettes Age Started Using Tobacco: 18; Age Quit Using Tobacco: 57; Second Hand Exposure: No; Do You Dip or Chew Tobacco: No; Hx Alcohol Use: No Hx Substance Use: No Preferred Language: Georgian Communication Ability: Impaired Visual Impairment: Limited Hearing Ability: Normal Sheriff Deputy Required: No Beliefs That Will Affect Care: None marital status: / Current Living Situation: Alone current occupational status: retired and disabled How many Children do You have: 3 Feels Safe at Home: Hesitant to Answer Childhood Exposure to Second-Hand Smoke: No Diet: regular caffeine: Yes (drinks coffee, diet pepsi occasionally ) during the past year weight has: remained stable Dental Care, Regularly: No Physical Activity Frequency: Does not Exercise Seatbelt Use: always Sunscreen Use: No Assistive Devices: Denture - Upper, Denture - Lower, Glasses and Walker Review of Systems Review of Systems: All systems reviewed & are unremarkable except as noted in HPI & below No fevers or chills, no cold symptoms Physical Exam Constitutional: WD/WN, vitals as above Eyes: PERRL, conjunctivae normal, anicteric sclerae ENMT: external ear and nose normal, oropharynx normal Neck: trachea midline, no thyromegaly Respiratory: normal respiratory effort, lungs clear to auscultation Cardiovascular: RRR, no murmur, no edema Chest (Breasts): Chest: normal inspection of chest Gastrointestinal (Abdomen): normal bowel sounds, soft, nontender, no hepatosplenomegaly Musculoskeletal: Extremities: extremities normal to inspection; no cyanosis and no clubbing Skin: no rashes, warm and dry Neurologic: moves all extremities and awake; no focal motor deficits Psychiatric: Orientation: alert, oriented to person, oriented to place and cooperative Lymphatic: no lymphedema Results & Data Results & Data Vital Signs (Past 12 Hours) Vital Signs Temp Pulse Pulse Resp BP BP Pulse Ox 10/25/23 12:30 64 15 99/59 L 96 10/25/23 12:20 70 18 99 10/25/23 12:10 69 16 100 10/25/23 12:00 113/58 L 10/25/23 12:00 69 17 100 10/25/23 11:50 70 19 99 10/25/23 11:40 70 15 100 10/25/23 11:38 99 10/25/23 11:37 71 17 100 10/25/23 11:37 105/66 10/25/23 11:30 73 15 10/25/23 11:20 72 19 10/25/23 11:10 73 15 100 10/25/23 11:00 111/61 10/25/23 11:00 74 17 99 10/25/23 10:59 74 10/25/23 10:57 75 14 99 10/25/23 10:41 36.0 C L 70 18 99/66 L 95 O2 Del Method 10/25/23 12:30 Room Air 10/25/23 12:20 10/25/23 12:10 10/25/23 12:00 10/25/23 12:00 10/25/23 11:50 10/25/23 11:40 10/25/23 11:38 Room Air 10/25/23 11:37 10/25/23 11:37 10/25/23 11:30 10/25/23 11:20 10/25/23 11:10 10/25/23 11:00 10/25/23 11:00 10/25/23 10:59 10/25/23 10:57 10/25/23 10:41 Room Air Laboratory Results CBC, CMP, magnesium, phosphorus, troponin reviewed Diagnostic Findings Chest X-Ray 10/25/23 11:21 XR chest 1V portable HISTORY: weakness COMPARISON: Chest 07/02/2023. FINDINGS: The lungs are clear. Cardiac silhouette is normal in size. No pleural effusions. No pneumothorax. IMPRESSION: No acute process. ACT 112: Negative or not required by law. Electronically signed by: Vijay Vega M.D. 10/25/2023 11:55 AM ECG Additional Comments: ECG from 10/25/2023 at 10:52 AM with normal sinus rhythm, rate 74 no ischemic changes Code Status & VTE Plan Code Status DNR/DNI VTE Prophylaxis Plan VTE Prophylaxis will be ordered: Yes PG Care Time/CCT Total # of Minutes Spent Total Time Spent with Patient: Total time spent is greater than 50% in coordination of care (as documented) at patient's floor/unit and/or counseling patient: Coding Level of Care Code 68124 INT INP/OBS CARE 3/75MIN Diagnoses Dyspnea on exertion R06.09 Hyperkalemia E87.5 CKD (chronic kidney disease), stage III N18.30 Hypomagnesemia E83.42 Abnormal LFTs R79.89 Coronary artery disease involving crow coronary artery of crow heart, angina presence unspecified I25.10 Coronary Disease-Associated Artery/Lesion type: crow artery [place] vs. transplanted heart: crow heart Associated angina: angina presence unspecified Anxiety F41.9 Primary hypertension I10 Hypertension type: primary hypertension Mckeon's esophagus without dysplasia K22.70 Mckeon's esophagus type: without dysplasia Poorly controlled type 2 diabetes mellitus E11.65 Diabetic peripheral neuropathy E11.42 Cognitive dysfunction F09 Vitamin B12 deficiency E53.8 Folic acid deficiency E53.8 (6) CAD (coronary artery disease) Coronary Disease-Associated Artery/Lesion type: crow artery [place] vs. transplanted heart: crow heart Associated angina: angina presence unspecified Qualified Code(s): I25.10 - Atherosclerotic heart disease of crow coronary artery without angina pectoris (8) Hypertension Hypertension type: primary hypertension Qualified Code(s): I10 - Essential (primary) hypertension (9) Mckeon esophagus Mckeon's esophagus type: without dysplasia Qualified Code(s): K22.70 - Bar rett's esophagus without dysplasia
[2023-10-25] MEDS: SODIUM PHOSPHATE 3 MMOL/1 ML INFUSION IV STA (13:53)
[2023-10-25] MEDS: SODIUM PHOSPHATE 9 MMOL in SODIUM CHLORIDE 0.9% 250 ML IV ONE (13:58)
[2023-10-25] MEDS: MAGNESIUM SULFATE / D5W 1 GM/100 ML BAG IV SCH ×2 (14:15→18:17)
[2023-10-25] MEDS: INSULIN HUMAN REGULAR PER UNIT 10 UNITS in SYRINGE 9.9 ML IV STA (14:15)
[2023-10-25 15:12] LABS: BUN Creatinine Ratio 21.1 (10-20); Calcium 9.3 mg/dl (8.6-10.3); Creatinine Clr Calc Pharmacy 32.5 ml/min; Est GFR (African American) 44.9 ml/min; Est GFR (Non-African American) 38.7 ml/min; Potassium 4.9 mmol/L (3.5-5.1)
[2023-10-25] MEDS: SODIUM ZIRCONIUM CYCLOSILICATE 10 GM PACKET PO ONE (16:22)
[2023-10-25] MEDS ORDERED: GLUCOSE 10 TAB/TUBE PO PRN (16:57)
[2023-10-25] MEDS ORDERED: ONDANSETRON INJ 2 MG/ML 2 ML VIAL IV PRN (16:57)
[2023-10-25] MEDS ORDERED: CARBOHYDRATES FOR HYPOGLYCEMIA PO PRN (16:57)
[2023-10-25] MEDS ORDERED: POLYETHYLENE (MIRALAX) 17 GM PACK PO PRN (16:57)
[2023-10-25] MEDS ORDERED: GLUCOSE 40% GEL 15 GM TUBE PO PRN (16:57)
[2023-10-25] MEDS ORDERED: ACETAMINOPHEN 500 MG TAB PO PRN (16:57)
[2023-10-25] MEDS ORDERED: DEXTROSE 50% 50 ML SYRINGE IV PRN (16:57)
[2023-10-25] MEDS ORDERED: GLUCAGON FOR INJ 1 MG VIAL SQ PRN (16:57)
[2023-10-25 17:42] LABS: Appearance Urine Cloudy (Clear); Bacteria Urine Automated Negative (Negative); Bilirubin Urine Negative (Negative); Blood Urine Negative (Negative); Color Urine Yellow; Epithelial Cell Urine Auto >30 /lpf (0-5); Glucose Urine UA Negative (Negative); Ketones Urine Negative (Negative); Leukocyte Esterase Urine 2+ (Negative); Nitrite Urine Negative (Negative); Protein Urine Trace (Negative); RBC Urine Automated 0-4 /hpf (0-4); Specific Gravity Urine 1.016 (1.000-1.030); Urobilinogen Urine Negative (Negative)
[2023-10-25] MEDS: INSULIN ASPART PER UNIT CHARGE SC SCH (18:19)
[2023-10-25] MEDS: LANTUS PER UNIT CHARGE SQ SCH (21:37)
[2023-10-25] MEDS: FAMOTIDINE 20 MG TAB PO SCH (21:38)
[2023-10-25] MEDS: HEPARIN SOD 5,000 UNIT/0.5 ML VIAL SQ SCH (21:38)
[2023-10-25] MEDS: PANTOprazole 40 MG TAB PO SCH (21:38)
[2023-10-25] MEDS: MAGNESIUM OXIDE 400 MG TAB PO SCH (21:39)
[2023-10-25] MEDS: GABAPENTIN 100 MG CAP PO SCH (21:39)
[2023-10-25] MEDS: busPIRone 5 MG TAB PO SCH (21:39)
--- NOTE | 2023-10-26 01:50 | XCELERA ---
[id number] \\[id number]
--- NOTE | 2023-10-26 06:08 | Electrocardiogram Report ---
Test Reason : Blood Pressure : / mmHG Vent. Rate : 074 BPM Atrial Rate : 074 BPM P-R Int : 150 ms QRS Dur : 068 ms QT Int : 372 ms P-R-T Axes : 023 023 078 degrees QTc Int : 412 ms Normal sinus rhythm When compared with ECG of 01-JUL-2023 18:03, No significant change was found Confirmed by Deon Gonzalez ([id number]) on 10/26/2023 6:08:18 AM Referred By: REFERRED SELF Confirmed By:Deon Gonzalez
[2023-10-26 07:58] LABS: Basophils # (auto) 0.06 K/uL (0.00-0.20); Basophils % (auto) 1.1 %; Eosinophils # (auto) 0.25 K/uL (0.00-0.50); Eosinophils % (auto) 4.4 %; Hematocrit (blood only) 33.7 % (37.0-47.0); Hemoglobin 11.3 g/dl (12.0-16.0); Immature Granulocytes # (auto) 0.01 K/uL (0.01-0.20); Immature Granulocytes % (auto) 0.2 %; Lymphocytes # (auto) 2.35 K/uL (1.20-3.40); Lymphocytes % (auto) 41.6 %; Mean Corpuscular Hemoglobin 26.1 pg (25.0-34.0); Mean Corpuscular Hgb Conc 33.5 g/dL (32.0-36.0); Mean Corpuscular Volume 77.8 fL (80.0-100.0); Mean Platelet Volume 10.3 fL (9.4-12.4); Monocytes # (auto) 0.37 K/uL (0.11-0.59); Monocytes % (auto) 6.5 %; Neutrophils # (auto) 2.61 K/uL (1.40-6.50); Neutrophils % (auto) 46.2 %; Platelet Count 211 K/uL (130-400); RDW Coefficient of Variation 14.6 % (11.5-14.5); RDW Standard Deviation 40.1 fL (36.4-46.3); Red Blood Count 4.33 M/uL (4.20-5.40); White Blood Count 5.65 K/ul (4.8-10.8)
[2023-10-26 08:05] LABS: Estimated Average Glucose 263 mg/dl; Hemoglobin A1C 10.8 % (4.5-5.6)
[2023-10-26 08:18] LABS: Albumin Globulin Ratio 1.6 (0.9-2); Albumin Level 3.5 gm/dl (3.4-5.0); BUN Creatinine Ratio 21.3 (10-20); Bilirubin,Total 0.3 mg/dl (0.2-1.0); Creatinine Clr Calc Pharmacy 35.3 ml/min; Est GFR (African American) 49.8 ml/min; Globulin 2.2 gm/dl (2.5-4.0); Magnesium 2.2 mg/dl (1.7-2.4); Phosphorus 1.8 mg/dl (2.5-4.9); Potassium 4.9 mmol/L (3.5-5.1); Total Protein 5.7 gm/dl (6.0-8.3)
[2023-10-26] MEDS: DULoxetine HCL 60 MG CAP PO SCH (08:40)
[2023-10-26] MEDS: FOLIC ACID 1 MG TAB PO SCH (08:40)
[2023-10-26] MEDS: CYANOCOBALAMIN (B-12) 500 MCG TABLET PO SCH (08:41)
[2023-10-26] MEDS: ISOSORBIDE MONO EXTENDED REL 30 MG TABCR PO SCH (08:41)
[2023-10-26] MEDS: ASPIRIN 81 MG ECTAB PO SCH (08:42)
[2023-10-26] MEDS: METOPROLOL SUCC 50MG EXT REL TAB PO SCH (08:42)
[2023-10-26] MEDS: UMECLIDINIUM/VILANTEROL 62.5/25MCG 7 PUFFS/INHALER INH SCH (08:43)
[2023-10-26] MEDS: FLUTICASONE FUROATE 100MCG 14 PUFFS/INHALER INH SCH (08:43)
--- NOTE | 2023-10-26 09:11 | Cardiology Consultation ---
Date of Consultation October 26, 2023 Assessment & Plan (1) Dyspnea on exertion: (2) CAD (coronary artery disease): (3) Dyslipidemia: (4) S/P coronary artery stent placement: (5) HTN (hypertension): (6) Hyperkalemia: (7) Weight loss: Plan ASSESSMENT/PLAN: 1. Dyspnea on exertion: Etiology uncertain. She appears euvolemic and BNP is normal. Chest x-ray was unremarkable. Has multivessel CAD and therefore cannot exclude ischemic heart disease as playing a role. Can increase isosorbide mononitrate to 60 mg daily to see if it offers any benefit. Deconditioning likely playing a role as she seems to be very sedentary based on her report. Increasing activity as tolerated recommended, if can be done safely. 2. CAD s/p PCI (LAD, Cx OM, RCA): No angina. Severe multivessel CAD for which medical therapy has been recommended. [facility] to be unsuitable candidate for CABG due to lack of suitable targets. Continue aspirin, beta-stephani. Has been on high intensity statin therapy as an outpatient, which is currently being held by hospitalist service due to elevated transaminase levels. Resume statin therapy if/when able. Can titrate nitrate therapy to see if it offers benefit with her dyspnea. 3. Hypertension: Blood pressure has been reasonably controlled. ANNA inhibitor currently on hold due to renal insufficiency on presentation which has improved following normal saline administration. 4. Dyslipidemia: Most recent LDL was excellent in September 2023. Can resume high intensity statin therapy when able. Transaminase levels were normal on 09/27/2023 while on statin therapy and therefore may not be the culprit for mildly elevated transaminase levels. 5. Hyperkalemia: Potassium level has improved. As per primary hospitalist service. 6. Weight loss: When reviewing charted weights over time, she has lost between 20 to 50 pounds (weights vary) since June 2023. She claims to have a good appetite. There was concern in the outpatient setting that perhaps with declining cognition, inconsistent eating patterns. Recommend further investigation into her eating habits and if truly eating well as she claims (however poor memory per records), further overall investigation into her weight loss. Will defer to primary hospitalist service and PCP. 7. Disposition: Please call with any further questions or concerns. Do not recommend further ischemic evaluation given her multivessel CAD for which medical therapy was recommended and in the setting of negative troponin and no angina, which has been present in the past. Follow-up with her primary embroiderer hand, Dr. Abdullahi. Patient care communicated with Dr. Saavedra of the primary hospitalist service. Today's visit was 55 minutes in duration, which includes [id number] time, counseling patient, coordinating care, reviewing records, completing documentation. Thank you for allowing me to participate in the care of your patient. Please call for any other questions or concerns. Sincerely, Master Gonzalez M.D. History of Present Illness Reason for Consultation: dyspnea on exertion. CAD. Requesting Physician: Malissa Saavedra MD Attending Physician: Malissa Saavedra MD History of Present Illness Ms. Rosas is a very pleasant 78-year-old female with a history significant for CAD s/p PCI (LAD, Cx, RCA), type 2 diabetes, dyslipidemia, and hypertension. 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 Her primary embroiderer hand is Dr. Abdullahi. She has had myocardial infarction in the past and described angina as sharp substernal chest pain that radiates to the left arm. She has had the following studies/procedures: 1. [place]iac [place] [facility] RCA 90%. Distal RCA 70%. PCI x2 of RCA. 2. Cardiac [place] [facility] Mid LAD 80% underwent 2.25 x 18 mm be EMS. Circumflex OM 80% underwent 2.5 x 12 mm Taxus. 3. Cardiac catheterization August 2006 [facility] Severe proximal RCA stenosis underwent PCI. 4. Dobutamine stress echo 08/02/2020: Negative for ischemia 98% MPHR. 5. Echo [facility] 10/25/21: Normal LV size, wall motion, systolic function. EF 55-60%. No significant valvular abnormalities. 6. Cardiac cath 11/28/2021: Distal LM 30 to 40%. Ostial LAD 40%. Mid LAD stent luminal irregularities. Mid LAD 70% followed by bifurcation of small to medium diagonal and another 80 to 90% within the mid LAD. Distal LAD long segment 70 to 80%. Mid to distal LAD small in caliber and diffusely diseased. Small caliber and severely diseased circumflex. Proximal to mid circumflex long area at 90%. OM 2 proximal 90%. OM 2 stent subtotal occlusion within the distal stent margin. Left to left collaterals to OM 2. Dominant RCA. Proximal/mid/distal RCA stents with diffuse mild to moderate in-stent restenosis including 70 to 80% stenosis within the mid RCA stent. Just distal to stent margin, distal RCA 70 to 80%. Distal RCA 80 to 90% at bifurcation of PDA and PL. Minimal right to left collaterals. LVEDP 12. No . CT surgery reviewed images and no suitable targets for CABG. 7. Echo 08/22/2022: Normal LV size, wall motion, systolic function. EF 65 to 70%. Moderate LVH. Mild MR. Normal RVSP. 8. Echo 10/25/2023: Normal LV size, wall motion, systolic function. EF 65-70%. Mild LVH. No significant valvular abnormalities. RVSP 27. Patient seen this morning. She has had dyspnea on exertion for the past 6 months but denies progressive worsening and in fact believes it may have gotten better in general. Then on the day of presentation, she had worsened dyspnea on exertion which prompted her evaluation. She uses a walker for ambulation and only walks when she has help available. Her daughter visits on a daily basis, has a home health nurse 2 days/week and physical therapy coming to her home. She denies shortness of breath at rest, orthopnea, chest pain, syncope, near syncope, palpitations, edema, melena, hematochezia, or hematuria. She maintains a low-sodium diet. She states "I eat good." But despite a good appetite, she claims to have lost approximately 50 pounds over the past 3 months, unintentionally. On presentation, she was noted to have renal insufficiency, hyperkalemia with potassium of 7, and mildly elevated transaminase levels. She feels better today than on presentation, but admits that she has not ambulated much since being here. She has been seen by neurology in the outpatient setting for cognitive concerns and memory loss although she denies having memory issues. She acknowledges that she does not remember her medications but has a friend who helps her daily to ensure that she receives her medications. There are reports that her memory has declined and that she sometimes sees people in her home that are not really there, misplaces items, and has intermittent agitation. Review of systems: As above. Review of systems otherwise negative/unremarkable. Family history:Mother at the age of 56. Father had CAD and hypertension. Seven brothers all from [place]. Has 4 sisters, 2 of which with [place]. Social history:She quit smoking approximately 50 years ago after 10 pack years. No significant alcohol. She was 3 times; x2 and x1. She lives alone. If unable to make her own decisions, she had designated Franck Ortega (friend) to make decisions for her (confirmed again today). She has 4 children but only 1 is currently active in her life, a daughter who visits daily. She is retired. She was alone in her hospital room. Allergies Allergy/AdvReac Type Severity Reaction Status Date / Time cephalexin Allergy Intermediate Rash and Verified 10/25/23 09:12 itchiness Cephalosporins Allergy Intermediate Rash and Verified 10/25/23 09:12 itchiness Sulfa (Sulfonamide Allergy Intermediate Hives Verified 10/25/23 09:12 Antibiotics) Home Medications Medication Instructions Recorded Confirmed Type aspirin 81 mg tablet,delayed 81 mg PO QAM 10/24/21 10/25/23 History release acetaminophen 500 mg tablet 1,000 mg (2 x 500 mg) PO Q6H PRN 07/09/23 10/25/23 Rx (Tylenol Extra Strength) PAIN/FEVER #1 tab diclofenac sodium 1 % topical gel 4 g topical QID PRN Pain #100 grams 07/09/23 10/25/23 Rx lidocaine 5 % topical patch 1 patch topical DAILY PRN pain #1 07/09/23 10/25/23 Rx (Lidoderm) ea magnesium hydroxide 400 mg/5 mL 5 ml PO DAILY PRN Indigestion 07/20/23 10/25/23 History oral suspension (Milk of Magnesia) Lift Chair #1 ea 09/06/23 10/25/23 Rx ezetimibe 10 mg tablet (Zetia) 10 mg PO QAM #30 tabs 09/22/23 10/25/23 Rx famotidine 20 mg tablet 20 mg PO BID #60 tabs 09/22/23 10/25/23 Rx gabapentin 100 mg capsule 100 mg PO TID #90 caps 09/22/23 10/25/23 Rx isosorbide mononitrate 30 mg 30 mg PO QAM #30 tabs 09/22/23 10/25/23 Rx tablet,extended release 24 hr magnesium oxide 400 mg (241.3 mg 400 mg PO BID #60 tabs 09/22/23 10/25/23 Rx magnesium) tablet metformin 500 mg tablet,extended 1,000 mg (2 x 500 mg) PO BID #120 09/22/23 10/25/23 Rx release 24 hr tabs metoprolol succinate 100 mg 100 mg PO QAM #30 tabs 09/22/23 10/25/23 Rx tablet,extended release 24 hr pantoprazole 40 mg tablet,delayed 40 mg PO BID #60 tabs 09/22/23 10/25/23 Rx release rosuvastatin 40 mg tablet 40 mg PO QAM #60 tabs 09/22/23 10/25/23 Rx buspirone 10 mg tablet 10 mg PO BID #180 tabs 09/27/23 10/25/23 Rx cyanocobalamin (vitamin B-12) 1,000 mcg PO QAM 10/25/23 10/25/23 History 1,000 mcg tablet (Vitamin B-12) duloxetine 60 mg capsule,delayed 60 mg PO QAM 10/25/23 10/25/23 History release ergocalciferol (vitamin D2) 1,250 50,000 unit PO WK 10/25/23 10/25/23 History mcg (50,000 unit) capsule (Vitamin D2) fluticasone fur. 100 mcg-umeclid 1 inh inhalation QAM 10/25/23 10/25/23 History 62.5 mcg-vilant 25 mcg inhalat.powder (Trelegy Ellipta) folic acid 1 mg tablet 1 mg PO QAM 10/25/23 10/25/23 History insulin glargine 100 unit/mL (3 10 unit subcut BID 10/25/23 10/25/23 History mL) subcutaneous pen (Basaglar KwikPen U-100 Insulin) lisinopril 5 mg tablet 5 mg PO QAM 10/25/23 10/25/23 History potassium chloride 20 mEq 20 meq PO BID 10/25/23 10/25/23 History tablet,extended release(part/cryst) Patient History Medical History Hypomagnesemia Poorly controlled type 2 diabetes mellitus Cervical spinal stenosis Edema Type 2 diabetes mellitus with chronic kidney disease Hyperosmolar hyperglycemic state (HHS) History of COVID-19 2020 - resolved Hyperglycemia due to type 2 diabetes mellitus Acute non-ST elevation myocardial infarction (NSTEMI) 11/28/2021 had [facility] and follow with dr abdullahi apt 02/09/2022 Folic acid deficiency Vitamin B12 deficiency Back pain Chest pain chronic chest pain and cardiac is negative Dyslipidemia Cervical pain (neck) Chronic pain syndrome Depression Diabetic gastroparesis Diabetic peripheral neuropathy GERD without esophagitis Lumbar spondylosis Mckeon esophagus CAD (coronary artery disease) s/p stents to RCA November 2005; s/p stents to LAD, LCx in January 2006; s/p stents to RCA in 08/2006 IBS (irritable bowel syndrome) Diabetes mellitus, type 2 IDDM Myocardial Infarction [place]- November 2005, January 2006, Aug 2006 3 total within an 8 month span--[place] [facility]LL[place] WITH DR. ABDULLAHI Surgical History Status post trigger finger release right thumb S/P coronary artery stent placement s/p stents to RCA November 2005; s/p stents to LAD, LCx in January 2006; s/p stents to RCA in 08/2006 History of total hysterectomy with bilateral salpingo-oophorectomy (BSO) History of lumbar spinal fusion History of total right knee replacement (TKR) History of esophageal dilatation History of colonoscopy with polypectomy History of esophagogastroduodenoscopy (EGD) History of tooth extraction all teeth History of cholecystectomy History of cataract surgery BL History of cardiac cath last [place] [facility] stents--s/p stents to RCA November 2005; s/p stents to LAD, LCx in January 2006; s/p stents to RCA in 08/2006 Family History Brother Myocardial infarction Anxiety Heart disease Hypertension Cancer Sister Family history of reaction to anesthesia difficulty waking Hypertension Heart disease Myocardial infarction Anxiety Cancer Diabetes Father Anxiety Heart disease Hypertension Mother Anxiety Hypertension Heart disease Unknown Cancer skin, GI Denies family history of Ovarian cancer Prostate cancer Breast cancer Colorectal cancer Stroke Social History Smoking Status: Never smoker Tobacco Type: Cigarettes Age Started Using Tobacco: 18; Age Quit Using Tobacco: 57; Second Hand Exposure: No; Do You Dip or Chew Tobacco: No; Hx Alcohol Use: No Hx Substance Use: No Preferred Language: Cymraes Communication Ability: Effective Visual Impairment: Limited Hearing Ability: Normal Small Machine Bindery Operator Required: No Beliefs That Will Affect Care: None marital status: / Current Living Situation: Alone current occupational status: retired and disabled How many Children do You have: 3 Feels Safe at Home: Yes Childhood Exposure to Second-Hand Smoke: No Diet: regular caffeine: Yes (drinks coffee, diet pepsi occasionally ) during the past year weight has: remained stable Dental Care, Regularly: No Physical Activity Frequency: Does not Exercise Seatbelt Use: always Sunscreen Use: No Assistive Devices: Denture - Upper, Glasses and Wheelchair Physical Exam Physical Exam: Gen.: No acute distress. Alert. HEENT: Anicteric sclera. Neck: No JVD. No bruits. Normal carotid upstrokes bilaterally. Cardiac: No ventricular heave. Regular. Normal S1-S2. No murmurs, rubs, or gallops. Pulmonary: Clear to auscultation bilaterally without wheezes, rales, or rhonchi. Abdomen: Soft, nontender, nondistended, with normoactive bowel sounds. No bruits noted. Extremities: 2+ radial pulses bilaterally. 2+ posterior tibialis pulses bilaterally. No edema. No cyanosis. Psychiatric: Affect appears appropriate. Results & Data Vital Signs (Past 12 Hours) Vital Signs Temp Pulse Pulse Resp BP BP Pulse Ox 10/26/23 08:19 36.7 C 73 16 129/81 98 10/26/23 04:00 36.5 C 67 18 136/81 97 10/26/23 00:22 58 L 10/26/23 00:00 36.5 C 62 18 114/76 99 O2 Del Method 10/26/23 08:19 Room Air 10/26/23 04:00 Room Air 10/26/23 00:22 10/26/23 00:00 Room Air Laboratory Results Laboratory Results - last 24 hr 10/25/23 10/25/23 10/25/23 11:35 13:24 14:33 WBC 7.65 RBC 4.80 Hgb 12.8 Hct 37.4 MCV 77.9 L MCH 26.7 MCHC 34.2 RDW Std Deviation 40.2 RDW Coeff of Tino 14.6 H Plt Count 247 MPV 10.5 Immature Gran % (Auto) 0.4 Neut % (Auto) 50.5 Lymph % (Auto) 39.3 [place] % (Auto) 6.5 Eos % (Auto) 2.1 Baso % (Auto) 1.2 Neut # (Auto) 3.86 Lymph # (Auto) 3.01 [place] # (Auto) 0.50 Eos # (Auto) 0.16 Baso # (Auto) 0.09 Immature Gran # (Auto) 0.03 PT 11.4 INR 1.0 Sodium 136 139 Potassium 7.0 H* 4.9 D Chloride 107 112 H Carbon Dioxide 23 25 Anion Gap 6 2 L BUN 31 H 28 H Creatinine 1.58 H 1.33 H Est Cr Clr Drug Dosing 27.4 32.5 Est GFR ( Amer) 36.5 44.9 Est GFR (Non-Af Amer) 31.5 38.7 BUN/Creatinine Ratio 19.6 21.1 H Glucose 221 H 125 H POC Glucose 173 H Estimat Average Glucose Hemoglobin A1c Calcium 10.1 9.3 Phosphorus 1.3 L* Magnesium 1.3 L Total Bilirubin 0.5 AST 78 H ALT 132 H Alkaline Phosphatase 128 H Total Creatine Kinase 45 Troponin I High Sens 6.5 B-Natriuretic Peptide 32 Total Protein 7.2 Albumin 4.1 Globulin 3.1 Albumin/Globulin Ratio 1.3 TSH 3.768 Urine Color Urine Appearance Urine pH Ur Specific Jud Urine Protein Urine Glucose (UA) Urine Ketones Urine Blood Urine Nitrite Urine Bilirubin Urine Urobilinogen Ur Leukocyte Esterase Urine WBC (Auto) Urine RBC (Auto) U Hyaline Cast (Auto) U Epithel Cells (Auto) Urine Bacteria (Auto) Adenovirus (PCR) B. pertussis DNA (PCR) B.parapertussis DNA PCR C. pneumoniae DNA (PCR) Coronavirus OC43 (PCR) Coronavirus HKU1 (PCR) Coronavirus 229E (PCR) SARS-CoV-2 (PCR) Coronavirus NL63 (PCR) Human Metapneumovir PCR Influenza Type A (PCR) Influenza Type B (PCR) M. pneumoniae (PCR) Parainfluenza 1 (PCR) Parainfluenza 2 (PCR) Parainfluenza 3 (PCR) Parainfluenza 4 (PCR) RSV (PCR) Entero/Rhino (PCR) 10/25/23 10/25/23 10/25/23 15:16 17:25 18:08 WBC RBC Hgb Hct MCV MCH MCHC RDW Std Deviation RDW Coeff of Tino Plt Count MPV Immature Gran % (Auto) Neut % (Auto) Lymph % (Auto) [place] % (Auto) Eos % (Auto) Baso % (Auto) Neut # (Auto) Lymph # (Auto) [place] # (Auto) Eos # (Auto) Baso # (Auto) Immature Gran # (Auto) PT INR Sodium Potassium Chloride Carbon Dioxide Anion Gap BUN Creatinine Est Cr Clr Drug Dosing Est GFR ( Amer) Est GFR (Non-Af Amer) BUN/Creatinine Ratio Glucose POC Glucose 114 H 85 Estimat Average Glucose Hemoglobin A1c Calcium Phosphorus Magnesium Total Bilirubin AST ALT Alkaline Phosphatase Total Creatine Kinase Troponin I High Sens B-Natriuretic Peptide Total Protein Albumin Globulin Albumin/Globulin Ratio TSH Urine Color Yellow Urine Appearance Cloudy A Urine pH 5.0 Ur Specific Jud 1.016 Urine Protein Trace H Urine Glucose (UA) Negative Urine Ketones Negative Urine Blood Negative Urine Nitrite Negative Urine Bilirubin Negative Urine Urobilinogen Negative Ur Leukocyte Esterase 2+ H Urine WBC (Auto) 10-30 H Urine RBC (Auto) 0-4 U Hyaline Cast (Auto) 5-10 H U Epithel Cells (Auto) >30 H Urine Bacteria (Auto) Negative Adenovirus (PCR) B. pertussis DNA (PCR) B.parapertussis DNA PCR C. pneumoniae DNA (PCR) Coronavirus OC43 (PCR) Coronavirus HKU1 (PCR) Coronavirus 229E (PCR) SARS-CoV-2 (PCR) Coronavirus NL63 (PCR) Human Metapneumovir PCR Influenza Type A (PCR) Influenza Type B (PCR) M. pneumoniae (PCR) Parainfluenza 1 (PCR) Parainfluenza 2 (PCR) Parainfluenza 3 (PCR) Parainfluenza 4 (PCR) RSV (PCR) Entero/Rhino (PCR) 10/25/23 10/25/23 10/26/23 21:24 Unknown 07:04 WBC 5.65 RBC 4.33 Hgb 11.3 L Hct 33.7 L MCV 77.8 L MCH 26.1 MCHC 33.5 RDW Std Deviation 40.1 RDW Coeff of Tino 14.6 H Plt Count 211 MPV 10.3 Immature Gran % (Auto) 0.2 Neut % (Auto) 46.2 Lymph % (Auto) 41.6 [place] % (Auto) 6.5 Eos % (Auto) 4.4 Baso % (Auto) 1.1 Neut # (Auto) 2.61 Lymph # (Auto) 2.35 [place] # (Auto) 0.37 Eos # (Auto) 0.25 Baso # (Auto) 0.06 Immature Gran # (Auto) 0.01 PT INR Sodium 134 L Potassium 4.9 Chloride 107 Carbon Dioxide 24 Anion Gap 3 BUN 26 H Creatinine 1.22 H Est Cr Clr Drug Dosing 35.3 Est GFR ( Amer) 49.8 Est GFR (Non-Af Amer) 43.0 BUN/Creatinine Ratio 21.3 H Glucose 118 H POC Glucose 105 H Estimat Average Glucose 263 Hemoglobin A1c 10.8 H Calcium 9.0 Phosphorus 1.8 L Magnesium 2.2 Total Bilirubin 0.3 AST 41 H ALT 83 H Alkaline Phosphatase 97 Total Creatine Kinase Troponin I High Sens B-Natriuretic Peptide Total Protein 5.7 L D Albumin 3.5 Globulin 2.2 L Albumin/Globulin Ratio 1.6 TSH Urine Color Urine Appearance Urine pH Ur Specific Jud Urine Protein Urine Glucose (UA) Urine Ketones Urine Blood Urine Nitrite Urine Bilirubin Urine Urobilinogen Ur Leukocyte Esterase Urine WBC (Auto) Urine RBC (Auto) U Hyaline Cast (Auto) U Epithel Cells (Auto) Urine Bacteria (Auto) Adenovirus (PCR) Not Detected B. pertussis DNA (PCR) Not Detected B.parapertussis DNA PCR Not Detected C. pneumoniae DNA (PCR) Not Detected Coronavirus OC43 (PCR) Not Detected Coronavirus HKU1 (PCR) Not Detected Coronavirus 229E (PCR) Not Detected SARS-CoV-2 (PCR) Not Detected Coronavirus NL63 (PCR) Not Detected Human Metapneumovir PCR Not Detected Influenza Type A (PCR) Not Detected Influenza Type B (PCR) Not Detected M. pneumoniae (PCR) Not Detected Parainfluenza 1 (PCR) Not Detected Parainfluenza 2 (PCR) Not Detected Parainfluenza 3 (PCR) Not Detected Parainfluenza 4 (PCR) Not Detected RSV (PCR) Not Detected Entero/Rhino (PCR) Not Detected 10/26/23 08:39 WBC RBC Hgb Hct MCV MCH MCHC RDW Std Deviation RDW Coeff of Tino Plt Count MPV Immature Gran % (Auto) Neut % (Auto) Lymph % (Auto) [place] % (Auto) Eos % (Auto) Baso % (Auto) Neut # (Auto) Lymph # (Auto) [place] # (Auto) Eos # (Auto) Baso # (Auto) Immature Gran # (Auto) PT INR Sodium Potassium Chloride Carbon Dioxide Anion Gap BUN Creatinine Est Cr Clr Drug Dosing Est GFR ( Amer) Est GFR (Non-Af Amer) BUN/Creatinine Ratio Glucose POC Glucose 123 H Estimat Average Glucose Hemoglobin A1c Calcium Phosphorus Magnesium Total Bilirubin AST ALT Alkaline Phosphatase Total Creatine Kinase Troponin I High Sens B-Natriuretic Peptide Total Protein Albumin Globulin Albumin/Globulin Ratio TSH Urine Color Urine Appearance Urine pH Ur Specific Jud Urine Protein Urine Glucose (UA) Urine Ketones Urine Blood Urine Nitrite Urine Bilirubin Urine Urobilinogen Ur Leukocyte Esterase Urine WBC (Auto) Urine RBC (Auto) U Hyaline Cast (Auto) U Epithel Cells (Auto) Urine Bacteria (Auto) Adenovirus (PCR) B. pertussis DNA (PCR) B.parapertussis DNA PCR C. pneumoniae DNA (PCR) Coronavirus OC43 (PCR) Coronavirus HKU1 (PCR) Coronavirus 229E (PCR) SARS-CoV-2 (PCR) Coronavirus NL63 (PCR) Human Metapneumovir PCR Influenza Type A (PCR) Influenza Type B (PCR) M. pneumoniae (PCR) Parainfluenza 1 (PCR) Parainfluenza 2 (PCR) Parainfluenza 3 (PCR) Parainfluenza 4 (PCR) RSV (PCR) Entero/Rhino (PCR) Diagnostic Findings Chest x-ray 10/25/2023: No acute process. ECG personally reviewed 10/25/2023 at 10:52 AM: Sinus rhythm 74 bpm. Echo report reviewed as noted above in HPI. History and physical report reviewed. Cath report reviewed as noted above in HPI. Labs reviewed and notable for mildly abnormal renal function but improved since presentation, normal potassium, improved from hyperkalemia on presentation, mildly elevated but improved transaminase levels compared to presentation, mild anemia. Labs from 09/27/2023 demonstrated excellent LDL. Telemetry personally reviewed: Sinus rhythm with heart rates mostly 60s to 70s. No arrhythmia noted. PG Care Time/CCT Total # of Minutes Spent Total Time Spent: 55 Total Time Spent with Patient: Total time spent is greater than 50% in coordination of care (as documented) at patient's floor/unit and/or counseling patient: Coding Level of Care Code 28810 INT INP/OBS CARE MIN Diagnoses Dyspnea on exertion R06.09 Coronary artery disease involving [place] coronary artery of [place] heart, angina presence unspecified I25.10 Coronary Disease-Associated Artery/Lesion type: [place] artery [place] vs. transplanted heart: [place] heart Associated angina: angina presence unspecified Dyslipidemia E78.5 S/P coronary artery stent placement Z95.5 Primary hypertension I10 Hypertension type: primary hypertension Hyperkalemia E87.5 Weight loss R63.4 Time Spent (min) 55 (2) CAD (coronary artery disease) Coronary Disease-Associated Artery/Lesion type: [place] artery [place] vs. tr ansplanted heart: [place] heart Associated angina: angina presence unspecified Qualified Code(s): I25.10 - Atherosclerotic heart disease of [place] coronary artery without angina pectoris (5) HTN (hypertension) Hypertension type: primary hypertension Qualified Code(s): I10 - Essential (primary) hypertension
[2023-10-26] MEDS: POT PHOSPHATE MONOBASIC W/ SOD TAB PO SCH (10:17)
--- NOTE | 2023-10-26 16:11 | Discharge Summary ---
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 The patient's daughter is at the bedside and provides the history mostly that the patient's been feeling increased shortness of breath over the last week. No weight gain and in fact has lost about 30 pounds over the last 6 months. The patient says from time to time she has leg swelling but currently has none. She denies any abdominal bloating or distention, no abdominal pain, no nausea/vomiting. She has been moving her bowels regularly. She notes shortness of breath and having to stop to catch her breath mostly with walking around her apartment and going up and down stairs. Denies any chest pain or pressure. Her daughter reports that they had concerns that she was having cardiac issues and that she might not have chest pain due to her diabetes. She was told to stop taking her potassium pills on 09/29 after routine outpatient blood work showed an elevated potassium of 5.2. The patient has a friend that helps her with her medications and thinks that they stopped the potassium pills but she is not sure. In the ER, she was found to have hyperkalemia with a potassium of 7.0 and low magnesium and phosphorus as well as acute kidney injury. Wideo viral respiratory panel was negative and chest x-ray negative. Vital signs were normal. Principal Dx & Hospital Course #1 = Principal Diagnosis (1) Dyspnea on exertion: Presents with worsening dyspnea on exertion over the last month Vital signs are normal, not hypoxic, chest x-ray is clear, respiratory viral bio fire panel is negative, afebrile, no cough, no weight gain and in fact has had weight loss, no peripheral edema LFTs are elevated which could be from hepatic congestion from right-sided heart failure? Unclear cause No evidence of acidosis Troponin negative, hemoglobin normal Unclear cause but could be anginal equivalent Ruled out acute on chronic HFpEF-BNP essentially normal, no CHF on CXR or on exam, ECHO preserved EF, no WMAs Does have a history of COPD but patient reports using her inhalers at home makes no difference -Admit to PCU for telemetry monitoring-had no arrhythmias on tele -Cardiology consult appreciated-increase isosorbide to 60mg daily for possible anginal equivalent in form of dyspnea -Continue maintenance COPD inhaler -f/u with Cardiology as outpt (2) Hyperkalemia: Potassium found to be 7.0 on arrival, ECG normal, hemodynamically stable Potentially from exogenous potassium chloride tablets at home although she was supposed to have stopped these 1 month ago. Also takes lisinopril Daughter reports patient eats a lot of bananas Was given a gram of IV calcium gluconate, 10 units of IV insulin, 1 L of normal saline, 1 dose Lokelma Repeat BMP quickly improved, lacing operator trended back to baseline, K+ remained normal on subsequent testing -called her pharmacy and discontinued the KCl order and asked patient to ensure KCl tabs all removed from her home packs -Continue insulin regimen for diabetes -Low potassium diet -ok to resume lisinopril on discharge (3) CKD (chronic kidney disease), stage III: With acute kidney injury in the setting of CKD stage III Baseline creatinine around 0.7-1.1. Creatinine on admission is 1.58 Does have a history of urinary retention but voiding normally here Health Education Director improved to 1.2 on day of discharge after 1L NS and holding lisinopril -ok to resume home lisinopril -Follow BMP as outpt -Avoid nephrotoxins -renally dose meds when appropriate (4) Hypomagnesemia: Magnesium at 1.3 on admission, likely secondary to PPI use and has been chronically low in the past despite taking oral supplementation Gave a total 4 g of IV magnesium sulfate Continue home oral magnesium mag levels normal on day of discharge Recommend lowering PPI dose to 40mg once daily Follow Mag level as outpt Hypophosphatemia-replaced with sodium phosphorus IV in the ER and then po phosphorus (5) Abnormal LFTs: AST, ALT, and alkaline phosphatase all mildly elevated, CK normal She has had this in the past when she was admitted with sepsis Could be right-sided heart failure and hepatic congestion as above She has no abdominal pains, has a history of cholecystectomy LFTs all improving quickly by day of discharge, unclear cause Held statin and Zetia but can resume on discharge as she has been on these for a long time with normal LFTs typically and has severe CAD Follow LFTs as outpt in 1 week with PCP (6) CAD (coronary artery disease): S/p stents to the RCA, LAD, and LCx Most recent cardiac catheterization in 11/2021 with NSTEMI showed severe multivessel CAD severe in-stent restenosis of RCA stent and subtotal occlusion of OM 2, medical therapy recommended, consideration for CABG but does not have suitable targets Follows with Dr. Lau Continue aspirin, statin and Zetia Continue metoprolol, isosorbide at increased dose of 60mg daily continue lisinopril (7) Anxiety: Continue home BuSpar and duloxetine No acute issues (8) Hypertension: Blood pressures are acceptable Continue home metoprolol, increased isosorbide, lisinopril (9) Mckeon esophagus: Continue PPI but lower dose to once daily, famotidine No acute issues (10) Poorly controlled type 2 diabetes mellitus: Hemoglobin A1c 12.8% last month and was started on increased dose of Lantus Continue Lantus 10 units twice daily Did receive 10 units of IV regular insulin for hyperkalemia today Accu-Cheks before meals and at bedtime with supplemental NovoLog Repeat hemoglobin A1c here down to 10.8% which is improved since PCP increased Lantus dose-continue same for now resume home metformin (11) Diabetic peripheral neuropathy: Continue low-dose gabapentin (12) Cognitive dysfunction: Seen by neurology on 10/24 for initial workup for cognitive impairment Recommends brain MRI-will defer to outpatient setting after discharge Supportive care (13) Vitamin B12 deficiency: Most recent level is normal Continue home supplementation (14) Folic acid deficiency: Most recent level a few months ago was normal Continue home supplementation Hemoglobin is now normal Plan DVT prophylaxis heparin SQ Disposition-dc to home DNR/DNI Discharge Exam Constitutional WD/WN, vitals as above Neck trachea midline, no thyromegaly Respiratory normal respiratory effort, lungs clear to auscultation Cardiovascular RRR, no murmur, no edema Chest (Breasts) Chest: normal inspection of chest Musculoskeletal Extremities: extremities normal to inspection; no cyanosis and no clubbing Skin no rashes, warm and dry Neurologic moves all extremities and awake; no focal motor deficits Psychiatric Orientation: alert, oriented to person, oriented to place and cooperative Lymphatic no lymphedema Updated Medication List Medication Instructions Recorded Confirmed Type aspirin 81 mg tablet,delayed 81 mg PO QAM 10/24/21 10/25/23 History release acetaminophen 500 mg tablet 1,000 mg (2 x 500 mg) PO Q6H PRN 07/09/23 10/25/23 Rx (Tylenol Extra Strength) PAIN/FEVER #1 tab diclofenac sodium 1 % topical gel 4 g topical QID PRN Pain #100 grams 07/09/23 10/25/23 Rx lidocaine 5 % topical patch 1 patch topical DAILY PRN pain #1 07/09/23 10/25/23 Rx (Lidoderm) ea magnesium hydroxide 400 mg/5 mL 5 ml PO DAILY PRN Indigestion 07/20/23 10/25/23 History oral suspension (Milk of Magnesia) Lift Chair #1 ea 09/06/23 10/25/23 Rx ezetimibe 10 mg tablet (Zetia) 10 mg PO QAM #30 tabs 09/22/23 10/25/23 Rx famotidine 20 mg tablet 20 mg PO BID #60 tabs 09/22/23 10/25/23 Rx gabapentin 100 mg capsule 100 mg PO TID #90 caps 09/22/23 10/25/23 Rx magnesium oxide 400 mg (241.3 mg 400 mg PO BID #60 tabs 09/22/23 10/25/23 Rx magnesium) tablet metformin 500 mg tablet,extended 1,000 mg (2 x 500 mg) PO BID #120 09/22/23 10/25/23 Rx release 24 hr tabs metoprolol succinate 100 mg 100 mg PO QAM #30 tabs 09/22/23 10/25/23 Rx tablet,extended release 24 hr rosuvastatin 40 mg tablet 40 mg PO QAM #60 tabs 09/22/23 10/25/23 Rx buspirone 10 mg tablet 10 mg PO BID #180 tabs 09/27/23 10/25/23 Rx cyanocobalamin (vitamin B-12) 1,000 mcg PO QAM 10/25/23 10/25/23 History 1,000 mcg tablet (Vitamin B-12) duloxetine 60 mg capsule,delayed 60 mg PO QAM 10/25/23 10/25/23 History release ergocalciferol (vitamin D2) 1,250 50,000 unit PO WK 10/25/23 10/25/23 History mcg (50,000 unit) capsule (Vitamin D2) fluticasone fur. 100 mcg-umeclid 1 inh inhalation QAM 10/25/23 10/25/23 History 62.5 mcg-vilant 25 mcg inhalat.powder (Trelegy Ellipta) folic acid 1 mg tablet 1 mg PO QAM 10/25/23 10/25/23 History insulin glargine 100 unit/mL (3 10 unit subcut BID 10/25/23 10/25/23 History mL) subcutaneous pen (Basaglar KwikPen U-100 Insulin) lisinopril 5 mg tablet 5 mg PO QAM 10/25/23 10/25/23 History isosorbide mononitrate 60 mg 60 mg PO QAM #30 tabs 10/26/23 Rx tablet,extended release 24 hr pantoprazole 40 mg tablet,delayed 40 mg PO QAM #30 tabs 10/26/23 Rx release Hospital Stay Data Consultations 10/25/23 13:53 ED Decision to Admit Stat 10/26/23 08:48 Consult Cardiology Routine Diagnostic Imagining Performed ECHO Pending Results Patient Have Any Pending Studies at Discharge: No Discharge Instructions Given to Patient (Per Discharging Provider) You were admitted for shortness of breath which may be from angina (heart pain) but could just be from deconditioning. The Plasterer Spray Gun increased the dose of your isosorbide to 60mg daily and a new prescription was sent to your pharmacy. You had high potassium levels and it is very important that you are NOT TAKING these anymore at home. Your liver tests were abnormal but then improved prior to discharge. Please have your PCP check your liver tests again at your follow up appointment in 1 week. Your magnesium levels are still quite low and this can be from your pantoprazole. Your dose of this was lowered to 40mg once daily in the morning (down from twice a day). Please have your PCP check your magnesium levels as well Total Time Total Time Spent Total Time Spent (In Minutes): 40 min Coding Level of Care Code 15871 INP/OBS DISCH >30 MIN Diagnoses Dyspnea on exertion R06.09 Hyperkalemia E87.5 CKD (chronic kidney disease), stage III N18.30 Chronic kidney disease stage 3 subtype: unspecified whether 3a or 3b Hypomagnesemia E83.42 Abnormal LFTs R79.89 Coronary artery disease involving torres martinez coronary artery of torres martinez heart, angina presence unspecified I25.10 Coronary Disease-Associated Artery/Lesion type: torres martinez artery [place] vs. transplanted heart: torres martinez heart Associated angina: angina presence unspecified Anxiety F41.9 Primary hypertension I10 Hypertension type: primary hypertension Mckeon's esophagus without dysplasia K22.70 Mckeon's esophagus type: without dysplasia Poorly controlled type 2 diabetes mellitus E11.65 Diabetic peripheral neuropathy E11.42 Cognitive dysfunction F09 Vitamin B12 deficiency E53.8 Folic acid deficiency E53.8
[2023-10-27] MEDS ORDERED: ISOSORBIDE MONO EXTENDED REL 60 MG TABCR PO SCH (09:00)
== END 2023-10-26 16:34 | disposition home health service (06) ==
LOC: EDINP 10:37 → ED 10:37 → 2N 17:49

== ENCOUNTER 2024-03-08 12:20 | Observation (INO) ==
--- NOTE | 2024-03-08 12:44 | Emergency Department Note ---
Impression & Plan Acute hypotension, Diarrhea, UTI (urinary tract infection), Abdominal pain ED Provider Note NAME: SHIRA CUNNINGHAM AGE: 78 SEX: F : 1945 ARRIVES VIA: Walk-In INFORMANT: Patient ED PROVIDER(S): Fadi Clemons DO CHIEF COMPLAINT: Abdominal pain, diarrhea HPI: Patient is a 78-year-old female with a past medical history of Mckeon's esophagus, diabetes, hypertension, CKD who presents to the ER for diarrhea which started yesterday. She is gone 3-4 times. This started after she took MiraLAX as she was having trouble having bowel movements. She took several doses of MiraLAX yesterday. She denies any headache or change in vision. No chest pain or shortness of breath. No nausea, vomiting. Denies any dysuria, urgency or frequency. No other exacerbating or remitting factors. ADDITIONAL HISTORY OBTAINED: Additional history obtained from friend who is present at bedside who notes that she had 3 episodes of diarrhea. Chronic Medical/Social Conditions Affecting Care: Per HPI PAST MEDICAL HISTORY:See Below PAST SURGICAL HISTORY:See Below FAMILY HISTORY:See Below SOCIAL HISTORY:See Below HOME MEDICATIONS:See Below ALLERGIES:See Below VITALS:See Below PHYSICAL EXAMINATION: GENERAL: Sitting up in bed, alert, well appearing, well nourished, no distress, non-toxic EYE EXAM: normal conjunctiva. OROPHARYNX: no exudate, no erythema, lips, buccal mucosa, and tongue normal and mucous membranes are moist NECK: supple, no nuchal rigidity, no adenopathy, non-tender LUNGS: Clear to auscultation. Normal chest wall mechanics HEART: no murmurs, S1 normal and S2 normal ABDOMEN: abdomen soft, non-tender, normo-active bowel sounds, no masses, no rebound or guarding. BACK: Back is symmetrical on inspection and there is no deformity, no midline tenderness, no CVA tenderness. SKIN: no rashes and no bruising UPPER EXTREMITIES: upper extremities are grossly normal. LOWER EXTREMITIES: No pitting edema. NEURO EXAM: Normal sensorium, cranial nerves II-XII grossly intact, normal speech, no gross weakness of arms, no gross weakness of legs. MEDICAL DECISION MAKING: Patient is a 8-year-old female who presents ER for diarrhea referred in by PCPs office for hypotension. IV was established blood work is obtained. Blood pressures range from 80s to low 90s. Labs show no significant leukocytosis and mild anemia 10. BMP with a creatinine 1.2. Lactate was normal. LFTs bilirubin was unremarkable. Pro-Jose Miguel was normal. UA does show UTI. She was given IV antibiotics/Cipro. She was updated at bedside. Discussed case with the hospitalist for the recurrent hypotension. Patient was admitted for further workup. Consults/Care Managements Discussions: Per MDM Triage Nursing notes reviewed. Limited review of prior medical records performed Vital Signs: reviewed and remarkable for hypotension and tachy Differential diagnosis: Differential diagnoses includes but is not limited to gastritis, peptic ulcer disease, GERD, gallbladder disease, pancreatitis, small bowel obstruction, appendicitis, diverticulitis, hernia, urinary tract infection, torsion, perforation, trauma, infectious. ER treatment provided: See below Diagnostics interpreted by me include EKG and cardiac monitoring as listed below: -Cardiac Monitoring: An order was placed for continuous cardiac monitoring. The monitor shows a rate of 90 with sinus rhythm. -ECG: none -Laboratory studies:Interpreted by me as stated above in MDM and shown below. Imaging studies: Xrays: As interpreted by me:none CTs show: CT abdomen pelvis per my preliminary interpretation showed no obvious bowel obstruction CT abdomen pelvis per radiology as described above Procedures:none Critical Care: None Past Med/Surg History Problem List (Updated 03/08/24 @ 17:26 by Fadi Clemons DO) Abdominal pain (Acute) UTI (urinary tract infection) (Acute) Diarrhea (Acute) Acute hypotension (Acute) UTI (urinary tract infection) Diarrhea Dysphagia History of Mckeon's esophagus Background diabetic retinopathy associated with type 2 diabetes mellitus Weight loss Hypomagnesemia (Acute) Dyspnea on exertion Ataxia Poorly controlled type 2 diabetes mellitus Cervical spinal stenosis Degenerative disc disease, cervical (Acute) Hypertension (Acute) Cervical radiculopathy (Acute) Type 2 diabetes mellitus with chronic kidney disease Vitamin D deficiency Abnormal LFTs (Acute) Diabetic nephropathy CKD (chronic kidney disease), stage III (Acute) Reactive airway disease Odynophagia Dysphagia Folic acid deficiency Vitamin B12 deficiency (Chronic) Anemia Arthritis of knee, left Left knee DJD (Chronic) Dyslipidemia Anal stricture Chronic pain syndrome Cognitive dysfunction (Acute) Depression Diabetic gastroparesis Diabetic peripheral neuropathy Lumbar spondylosis Uncontrolled type 2 diabetes mellitus with neurologic complication, with long- term current use of insulin GERD (gastroesophageal reflux disease) Mckeon esophagus CAD (coronary artery disease) (Chronic) s/p stents to RCA November 2005; s/p stents to LAD, LCx in January 2006; s/p stents to RCA in 08/2006 IBS (irritable bowel syndrome) Anxiety Medical History (Updated 03/08/24 @ 17:26 by Fadi Clemons DO) Diabetic gastroparesis pt unaware Diabetic retinopathy Anxiety IBS (irritable bowel syndrome) CAD (coronary artery disease) s/p stents to RCA November 2005; s/p stents to LAD, LCx in January 2006; s/p stents to RCA in 08/2006 Mckeon esophagus Depression Dyslipidemia History of anemia Dysphagia Reactive airway disease well controlled w/ daily inhaler CKD (chronic kidney disease), stage III Diabetic neuropathy HTN (hypertension) Cervical spinal stenosis Esophageal ulcer without bleeding hx Hiatal hernia Hemorrhoids Esophageal spasm hx- pt not aware Edema mild, right LE History of COVID-2020 - resolved Acute non-ST elevation myocardial infarction (NSTEMI) 11/28/2021 had [place] [facility] management and follow with dr abdullahi apt 02/09/2022 Back pain Chest pain chronic chest pain and cardiac is negative GERD without esophagitis Diabetes mellitus, type 2 IDDM Myocardial Infarction [place]- November 2005, January 2006, Aug 2006 3 total within an 8 month span--[place] [facility] [place] DR. ABDULLAHI Surgical History Status post trigger finger release S/P coronary artery stent placement History of total hysterectomy with bilateral salpingo-oophorectomy (BSO) History of lumbar spinal fusion History of total right knee replacement (TKR) History of esophageal dilatation History of colonoscopy with polypectomy History of esophagogastroduodenoscopy (EGD) History of tooth extraction History of cholecystectomy History of cataract surgery History of cardiac cath Family History Brother Myocardial infarction Anxiety Heart disease Hypertension Cancer Sister Family history of reaction to anesthesia difficulty waking Hypertension Heart disease Myocardial infarction Anxiety Cancer Diabetes Father Anxiety Heart disease Hypertension Mother Anxiety Hypertension Heart disease Unknown Cancer skin, GI Denies family history of Ovarian cancer Prostate cancer Breast cancer Colorectal cancer Stroke Social History Smoking Status: Former smoker Tobacco Type: Cigarettes Age Started Using Tobacco: 18; Age Quit Using Tobacco: 57; Second Hand Exposure: No; Do You Dip or Chew Tobacco: No; Hx Alcohol Use: No Hx Substance Use: No Preferred Language: Slovenian Communication Ability: Effective Visual Impairment: Limited Hearing Ability: Normal Site Foreman Required: No Beliefs That Will Affect Care: None marital status: / Current Living Situation: Alone current occupational status: retired and disabled How many Children do You have: 3 Feels Safe at Home: Yes Childhood Exposure to Second-Hand Smoke: No Diet: regular caffeine: Yes (drinks coffee, diet pepsi occasionally ) during the past year weight has: remained stable Dental Care, Regularly: No Physical Activity Frequency: Does not Exercise Seatbelt Use: always Sunscreen Use: No Assistive Devices: Denture - Upper and Walker Allergies Allergies Allergy/AdvReac Type Severity Reaction Status Date / Time cephalexin Allergy Intermediate Rash and Verified 03/08/24 11:43 itchiness Cephalosporins Allergy Intermediate Rash and Verified 03/08/24 11:43 itchiness Sulfa (Sulfonamide Allergy Intermediate Hives Verified 03/08/24 11:43 Antibiotics) Home Meds Home Medications Medication Instructions Recorded Confirmed fluticasone fur. 100 mcg-umeclid 1 inh inhalation QAM 10/25/23 03/08/24 62.5 mcg-vilant 25 mcg inhalat.powder (Trelegy Ellipta) pantoprazole 40 mg tablet,delayed 40 mg PO QAM 10/27/23 03/08/24 release aspirin 81 mg tablet,delayed 81 mg PO QAM 11/18/23 03/08/24 release Vit B-12 1000mcg [place]yo Value 200+20 1 tab PO QAM 03/08/24 03/08/24 ezetimibe 10 mg tablet 10 mg PO QAM 03/08/24 03/08/24 Previous Rx's Medication Instructions Recorded diclofenac sodium 1 % topical gel 4 g topical QID PRN Pain #100 grams 07/09/23 Lift Chair #1 ea 09/06/23 buspirone 10 mg tablet 10 mg PO BID #180 tabs 09/27/23 metformin 500 mg tablet,extended 500 mg PO BID #120 tabs 11/08/23 release 24 hr isosorbide mononitrate 60 mg 60 mg PO QAM #60 tabs 12/03/23 tablet,extended release 24 hr lidocaine 5 % topical patch 1 patch topical DAILY PRN pain #30 01/07/24 (Lidoderm) ea magnesium oxide 400 mg (241.3 mg 400 mg PO BID #60 tabs 01/28/24 magnesium) tablet metoprolol succinate 50 mg 50 mg PO QAM #90 tabs 02/02/24 tablet,extended release 24 hr rosuvastatin 20 mg tablet 20 mg PO DAILY #90 tabs 02/02/24 clotrimazole 1 % topical cream 1 applic topical BID 2 weeks #45 02/07/24 grams insulin glargine 100 unit/mL (3 12 unit (0.12 mL) subcut QAM #15 mL 02/08/24 mL) subcutaneous pen (Basaglar KwikPen U-100 Insulin) famotidine 20 mg tablet 20 mg PO BID #60 tabs 02/24/24 folic acid 1 mg tablet 1 mg PO QAM #90 tabs 02/24/24 gabapentin 100 mg capsule 100 mg PO TID #90 caps 02/24/24 lisinopril 5 mg tablet 5 mg PO QAM #90 tabs 02/24/24 duloxetine 60 mg capsule,delayed 60 mg PO QAM #90 caps 02/25/24 release ergocalciferol (vitamin D2) 1,250 50,000 unit PO WK #12 caps 02/29/24 mcg (50,000 unit) capsule (Vitamin D2) Results & Data (ED) Vital Signs Vital Signs - 24 hr 03/08/24 12:23 03/08/24 12:57 03/08/24 13:00 Temperature 36.5 C Temperature Source Temporal Artery Scan Pulse Rate 100 H 88 Pulse Rate [Apical] Pulse Rate from SpO2 Sensor Respiratory Rate 22 Respiratory Effort / Characteristics Respiratory Depth Respiratory Pattern Blood Pressure 83/53 L 122/62 Blood Pressure [Left Arm] Blood Pressure Mean 63 76 Blood Pressure Mean [Left Arm] Blood Pressure Position [Left Arm] Pulse Oximetry 97 Oxygen Delivery Method Sepsis Recent Fever Within 48 Hours No Sepsis New/Unexplained Change in Mental Status N/A Sepsis Action Taken by Nursing No Action Required 03/08/24 13:00 03/08/24 13:00 03/08/24 13:00 Temperature Temperature Source Pulse Rate 88 Pulse Rate [Apical] Pulse Rate from SpO2 Sensor 88 Respiratory Rate 14 Respiratory Effort / Characteristics Respiratory Depth Respiratory Pattern Blood Pressure 122/62 122/62 Blood Pressure [Left Arm] Blood Pressure Mean 76 76 Blood Pressure Mean [Left Arm] Blood Pressure Position [Left Arm] Pulse Oximetry 97 Oxygen Delivery Method Sepsis Recent Fever Within 48 Hours Sepsis New/Unexplained Change in Mental Status Sepsis Action Taken by Nursing 03/08/24 13:12 03/08/24 13:30 03/08/24 13:30 Temperature Temperature Source Pulse Rate 92 H Pulse Rate [Apical] Pulse Rate from SpO2 Sensor 92 H Respiratory Rate 17 Respiratory Effort / Characteristics Respiratory Depth Respiratory Pattern Blood Pressure 126/67 126/67 Blood Pressure [Left Arm] Blood Pressure Mean 82 82 Blood Pressure Mean [Left Arm] Blood Pressure Position [Left Arm] Pulse Oximetry 98 Oxygen Delivery Method Sepsis Recent Fever Within 48 Hours Sepsis New/Unexplained Change in Mental Status Sepsis Action Taken by Nursing 03/08/24 13:42 03/08/24 13:51 03/08/24 14:31 Temperature Temperature Source Pulse Rate 89 85 Pulse Rate [Apical] 78 Pulse Rate from SpO2 Sensor 90 86 Respiratory Rate 17 17 18 Respiratory Effort / Characteristics Non-Labored Respiratory Depth Normal Respiratory Pattern Regular Blood Pressure Blood Pressure [Left Arm] 98/56 L Blood Pressure Mean Blood Pressure Mean [Left Arm] 70 Blood Pressure Position [Left Arm] Pulse Oximetry 97 98 98 Oxygen Delivery Method Room Air Sepsis Recent Fever Within 48 Hours Sepsis New/Unexplained Change in Mental Status Sepsis Action Taken by Nursing 03/08/24 15:18 03/08/24 15:18 03/08/24 16:01 Temperature Temperature Source Pulse Rate 82 Pulse Rate [Apical] 82 85 Pulse Rate from SpO2 Sensor Respiratory Rate 18 18 12 Respiratory Effort / Characteristics Non-Labored Spontaneous Respiratory Depth Normal Respiratory Pattern Regular Blood Pressure Blood Pressure [Left Arm] 132/74 133/76 Blood Pressure Mean Blood Pressure Mean [Left Arm] 93 95 Blood Pressure Position [Left Arm] Semi-fowlers Pulse Oximetry 98 98 96 Oxygen Delivery Method Room Air Room Air Room Air Sepsis Recent Fever Within 48 Hours Sepsis New/Unexplained Change in Mental Status Sepsis Action Taken by Nursing 03/08/24 16:37 03/08/24 16:52 Temperature Temperature Source Pulse Rate 89 Pulse Rate [Apical] 84 Pulse Rate from SpO2 Sensor Respiratory Rate 17 Respiratory Effort / Characteristics Non-Labored Spontaneous Respiratory Depth Normal Respiratory Pattern Regular Blood Pressure Blood Pressure [Left Arm] 133/71 Blood Pressure Mean Blood Pressure Mean [Left Arm] 91 Blood Pressure Position [Left Arm] Semi-fowlers Pulse Oximetry 96 Oxygen Delivery Method Room Air Sepsis Recent Fever Within 48 Hours Sepsis New/Unexplained Change in Mental Status Sepsis Action Taken by Nursing Laboratory Data 03/08/24 12:48 03/08/24 12:48 Lab Results 03/08/24 03/08/24 03/08/24 Range/Units 12:48 15:28 16:49 WBC 8.78 (4.8-10.8) K/ul RBC 3.71 L (4.20-5.40) M/uL Hgb 10.1 L (12.0-16.0) g/dl Hct 30.9 L (37.0-47.0) % MCV 83.3 (80.0-100.0) fL MCH 27.2 (25.0-34.0) pg MCHC 32.7 (32.0-36.0) g/dL RDW Std Deviation 42.8 (36.4-46.3) fL RDW Coeff of Tino 14.1 (11.5-14.5) % Plt Count 266 (130-400) K/uL MPV 10.2 (9.4-12.4) fL Immature Gran % (Auto) 0.2 % Neut % (Auto) 61.9 % Lymph % (Auto) 27.1 % [place] % (Auto) 8.0 % Eos % (Auto) 1.9 % Baso % (Auto) 0.9 % Neut # (Auto) 5.43 (1.40-6.50) K/uL Lymph # (Auto) 2.38 (1.20-3.40) K/uL [place] # (Auto) 0.70 H (0.11-0.59) K/uL Eos # (Auto) 0.17 (0.00-0.50) K/uL Baso # (Auto) 0.08 (0.00-0.20) K/uL Immature Gran # (Auto) 0.02 (0.01-0.20) K/uL Sodium 137 (136-145) mmol/L Potassium 4.8 (3.5-5.1) mmol/L Chloride 102 (98-107) mmol/L Carbon Dioxide 27 (21-32) mmol/L Anion Gap 8 (3-11) BUN 27 H (6-23) mg/dl Creatinine 1.23 H (0.6-1.2) mg/dl Est Cr Clr Drug Dosing Not Reportable Est GFR ( Amer) 49.3 ml/min Est GFR (Non-Af Amer) 42.6 ml/min BUN/Creatinine Ratio 22.0 H (10-20) Glucose 184 H (70-99(Fasting)) mg/dl POC Glucose (70-99) mg/dl Lactate 1.1 (0.4-2.0) mmol/L Calcium 9.9 (8.6-10.3) mg/dl Magnesium 1.6 L (1.7-2.4) mg/dl Total Bilirubin 0.4 (0.2-1.0) mg/dl AST 28 (13-39) U/L ALT 23 (7-52) U/L Alkaline Phosphatase 67 (34-104) U/L Total Protein 7.0 (6.0-8.3) gm/dl Albumin 3.7 (3.4-5.0) gm/dl Globulin 3.3 (2.5-4.0) gm/dl Albumin/Globulin Ratio 1.1 (0.9-2) Lipase 31 (11-82) U/L Procalcitonin 0.09 (0-0.5) ng/ml Urine Color Yellow Urine Appearance Cloudy A (Clear) Urine pH 7.5 (4.5-7.5) Ur Specific [place] 1.023 (1.000-1.030) Urine Protein Negative (Negative) Urine Glucose (UA) Negative (Negative) Urine Ketones Negative (Negative) Urine Blood Negative (Negative) Urine Nitrite Negative (Negative) Urine Bilirubin Negative (Negative) Urine Urobilinogen Negative (Negative) Ur Leukocyte Esterase 3+ H (Negative) Urine WBC (Auto) >50 H (0-5) /hpf Urine RBC (Auto) 0-2 (0-2) /hpf U Hyaline Cast (Auto) 0-2 (0-2) /lpf U Epithel Cells (Auto) 0-2 (0-2) /hpf Urine Bacteria (Auto) 1+ H (None Seen) Urine Yeast Present A (None Prsent) 03/08/24 Range/Units 17:00 WBC (4.8-10.8) K/ul RBC (4.20-5.40) M/uL Hgb (12.0-16.0) g/dl Hct (37.0-47.0) % MCV (80.0-100.0) fL MCH (25.0-34.0) pg MCHC (32.0-36.0) g/dL RDW Std Deviation (36.4-46.3) fL RDW Coeff of Tino (11.5-14.5) % Plt Count (130-400) K/uL MPV (9.4-12.4) fL Immature Gran % (Auto) % Neut % (Auto) % Lymph % (Auto) % [place] % (Auto) % Eos % (Auto) % Baso % (Auto) % Neut # (Auto) (1.40-6.50) K/uL Lymph # (Auto) (1.20-3.40) K/uL [place] # (Auto) (0.11-0.59) K/uL Eos # (Auto) (0.00-0.50) K/uL Baso # (Auto) (0.00-0.20) K/uL Immature Gran # (Auto) (0.01-0.20) K/uL Sodium (136-145) mmol/L Potassium (3.5-5.1) mmol/L Chloride (98-107) mmol/L Carbon Dioxide (21-32) mmol/L Anion Gap (3-11) BUN (6-23) mg/dl Creatinine (0.6-1.2) mg/dl Est Cr Clr Drug Dosing Est GFR ( Amer) ml/min Est GFR (Non-Af Amer) ml/min BUN/Creatinine Ratio (10-20) Glucose (70-99(Fasting)) mg/dl POC Glucose 145 H (70-99) mg/dl Lactate (0.4-2.0) mmol/L Calcium (8.6-10.3) mg/dl Magnesium (1.7-2.4) mg/dl Total Bilirubin (0.2-1.0) mg/dl AST (13-39) U/L ALT (7-52) U/L Alkaline Phosphatase (34-104) U/L Total Protein (6.0-8.3) gm/dl Albumin (3.4-5.0) gm/dl Globulin (2.5-4.0) gm/dl Albumin/Globulin Ratio (0.9-2) Lipase (11-82) U/L Procalcitonin (0-0.5) ng/ml Urine Color Urine Appearance (Clear) Urine pH (4.5-7.5) Ur Specific [place] (1.000-1.030) Urine Protein (Negative) Urine Glucose (UA) (Negative) Urine Ketones (Negative) Urine Blood (Negative) Urine Nitrite (Negative) Urine Bilirubin (Negative) Urine Urobilinogen (Negative) Ur Leukocyte Esterase (Negative) Urine WBC (Auto) (0-5) /hpf Urine RBC (Auto) (0-2) /hpf U Hyaline Cast (Auto) (0-2) /lpf U Epithel Cells (Auto) (0-2) /hpf Urine Bacteria (Auto) (None Seen) Urine Yeast (None Prsent) Administered Medications Ciprofloxacin (Cipro / D5w) 400 mg in 200 mls @ 100 mls/hr IV NOW STA; Protocol Stop: 03/08/24 18:17 Last Admin: 03/08/24 16:38 Dose: 100 mls/hr Documented By: ABDIRAHMAN Discontinued Medications Sodium Chloride (Nss) 1,000 mls @ 999 mls/hr IV .Q1H1M ONE Stop: 03/08/24 13:34 Last Infusion: 03/08/24 13:54 Dose: Infused Documented By: Admin: 03/08/24 12:51 Dose: 999 mls/hr Documented By: DONITA Sodium Chloride (Nss) 500 mls @ 999 mls/hr IV .Q31M ONE Stop: 03/08/24 16:15 Last Infusion: 03/08/24 17:21 Dose: Infused Documented By: Admin: 03/08/24 16:03 Dose: 999 mls/hr Documented By: ABDIRAHMAN Ioversol (Optiray 320 100ml) 94 ml IV ONCE ONE Stop: 03/08/24 14:07 Last Admin: 03/08/24 14:06 Dose: 94 ml Documented By: TOM Imaging Data Radiologist's Impression: Abdomen/Pelvis CT 03/08/24 12:34 CT abd pelvis IV con only CLINICAL HISTORY: abd pain hypotension TECHNIQUE: Helical axial images of the abdomen and pelvis were obtained and displayed. Automated dose lowering techniques and/or adjustment according to patient size were utilized for this exam. This exam was performed with intravenous contrast. CT DOSE: 879.79 mGy.cm COMPARISON: Comparison is made to CT abdomen pelvis 07/01/2023 FINDINGS: Lower chest: Bibasilar atelectasis versus scarring is seen. Liver: Unremarkable. No focal lesions are seen. Gallbladder and biliary tree: Patient is status post cholecystectomy. Physiologic prominence of the biliary ducts is noted. Pancreas: Unremarkable, no focal lesions. Spleen: Unremarkable. Adrenals: Unremarkable. Kidneys and ureters: Unremarkable. Bladder: Diffuse homogeneous wall thickening is seen. Reproductive organs: Patient is status post hysterectomy. Bowel: Rectal wall thickening is again seen. There is a small hiatal hernia. Distal esophageal wall thickening is seen. Lymph nodes Retroperitoneal: Subcentimeter lymph nodes are noted. Pelvic: Unremarkable. Mesenteric: Unremarkable. Peritoneum: Normal. Vessels: Atherosclerotic calcifications are seen. Abdominal wall: Unremarkable. Bones: Degenerative changes in the visualized spine. IMPRESSION: 1. Circumferential thickening of the rectal wall is again seen, somewhat improved from the prior exam. A nonspecific proctitis is likely. 2. Previously noted hydronephrosis has resolved. 3. Hiatal hernia with distal esophageal wall thickening, correlation for sinusitis is recommended. ACT 112: Negative or not required by law. Electronically signed by: Josh Lange M.D. 03/08/2024 2:37 PM Discharge Plan Visit Data Chief Complaint: Referred by Doctor Stated Complaint: DEHYDRATED , LOW BP ED Provider: Fadi Clemons Discharge Problem: Acute hypotension, Diarrhea, UTI (urinary tract infection), Abdominal pain Forms Stand Alone Forms: My [facility] [place] [employer] Prescriptions Prescriptions: No Action isosorbide mononitrate 60 mg tablet extended release 24 hr 60 mg PO QAM Qty: 60 3RF magnesium oxide 400 mg (241.3 mg magnesium) tablet 400 mg PO BID Qty: 60 5RF Rx Instructions: 10/27/2023-Per Caregiver patient only taking one a day clotrimazole 1 % cream 1 applic topical BID 14 Days Qty: 45 0RF famotidine 20 mg tablet 20 mg PO BID Qty: 60 5RF folic acid 1 mg tablet 1 mg PO QAM Qty: 90 3RF lisinopril 5 mg tablet 5 mg PO QAM Qty: 90 3RF Hold Instructions: hypotension gabapentin 100 mg capsule 100 mg PO TID Qty: 90 5RF duloxetine 60 mg capsule,delayed release(DR/EC) 60 mg PO QAM Qty: 90 3RF ergocalciferol (vitamin D2) [Vitamin D2] 1,250 mcg (50,000 unit) capsule 50,000 unit PO WK Qty: 12 1RF Rx Instructions: Wednesday (DME) Lift Chair Misc See Rx Instructions .Route Qty: 1 0RF Rx Instructions: As directed metoprolol succinate 50 mg tablet extended release 24 hr 50 mg PO QAM Qty: 90 3RF rosuvastatin 20 mg tablet 20 mg PO DAILY Qty: 90 3RF Rx Instructions: include in monthly pill packaging metformin 500 mg tablet extended release 24 hr 500 mg PO BID Qty: 120 5RF aspirin 81 mg tablet,delayed release (DR/EC) 81 mg PO QAM insulin glargine [Basaglar KwikPen U-100 Insulin] 100 unit/mL (3 mL) insulin pen 12 unit SUBCUT QAM Qty: 15 5RF buspirone 10 mg tablet 10 mg PO BID Qty: 180 3RF pantoprazole 40 mg tablet,delayed release (DR/EC) 40 mg PO QAM lidocaine [Lidoderm] 5 % adhesive patch,medicated 1 patch TOP DAILY PRN (Reason: pain) Qty: 30 0RF Rx Instructions: leave on most painful area for up to 12 hrs diclofenac sodium 1 % gel 4 g topical QID PRN (Reason: Pain) Qty: 100 2RF Rx Instructions: apply to a single knee, shoulder, ankle, etc Trelegy Ellipta 100-62.5-25 mcg blister with device 1 inh inhalation QAM Rx Instructions: rinse mouth thoroughly after each dose. ezetimibe 10 mg tablet 10 mg PO QAM Vit B-12 1000mcg Cyo Value 200+20 1 tab PO QAM Rx Instructions: TAKE 1 TABLET BY MOUTH ONCE DAILY IN THE MORNING Referrals Referrals: Shiela Gipson MD [Primary Care Provider] - Discharge Problem: Diarrhea Qualifiers: Diarrhea type: unspecified type Qualified Code(s): R19.7 - Diarrhea, unspecified UTI (urinary tract infection) Qualifiers: Urinary tract infection type: acute cystitis Hematuria presence: without hematuria Qualified Code(s): N30.00 - Acute cystitis without hematuria Abdominal pain Qualifiers: Abdominal location: unspecified location Qualified Code(s): R10.9 - Unspecified abdominal pain
[2024-03-08] MEDS: SODIUM CHLORIDE 0.9% 1,000 ML IV ONE (12:51)
[2024-03-08 13:11] LABS: Basophils # (auto) 0.08 K/uL (0.00-0.20); Basophils % (auto) 0.9 %; Eosinophils # (auto) 0.17 K/uL (0.00-0.50); Eosinophils % (auto) 1.9 %; Hematocrit (blood only) 30.9 % (37.0-47.0); Hemoglobin 10.1 g/dl (12.0-16.0); Immature Granulocytes # (auto) 0.02 K/uL (0.01-0.20); Immature Granulocytes % (auto) 0.2 %; Lymphocytes # (auto) 2.38 K/uL (1.20-3.40); Lymphocytes % (auto) 27.1 %; Mean Corpuscular Hemoglobin 27.2 pg (25.0-34.0); Mean Corpuscular Hgb Conc 32.7 g/dL (32.0-36.0); Mean Corpuscular Volume 83.3 fL (80.0-100.0); Mean Platelet Volume 10.2 fL (9.4-12.4); Neutrophils # (auto) 5.43 K/uL (1.40-6.50); Neutrophils % (auto) 61.9 %; Platelet Count 266 K/uL (130-400); RDW Coefficient of Variation 14.1 % (11.5-14.5); RDW Standard Deviation 42.8 fL (36.4-46.3); Red Blood Count 3.71 M/uL (4.20-5.40); White Blood Count 8.78 K/ul (4.8-10.8)
[2024-03-08 13:27] LABS: Alanine Aminotransferase 23 U/L (7-52); Albumin Globulin Ratio 1.1 (0.9-2); Albumin Level 3.7 gm/dl (3.4-5.0); Alkaline Phosphatase 67 U/L (34-104); Anion Gap 8 (3-11); Aspartate Aminotransferase 28 U/L (13-39); Bilirubin,Total 0.4 mg/dl (0.2-1.0); Blood Urea Nitrogen 27 mg/dl (6-23); Calcium 9.9 mg/dl (8.6-10.3); Carbon Dioxide 27 mmol/L (21-32); Chloride 102 mmol/L (98-107); Est GFR (African American) 49.3 ml/min; Est GFR (Non-African American) 42.6 ml/min; Globulin 3.3 gm/dl (2.5-4.0); Glucose 184 mg/dl (70-99(Fasting)); Lipase 31 U/L (11-82); Potassium 4.8 mmol/L (3.5-5.1); Sodium 137 mmol/L (136-145)
[2024-03-08] MEDS: OPTIRAY 320 100ml IV ONE (14:06)
--- NOTE | 2024-03-08 14:38 | CT Scan Report ---
CT abd pelvis IV con only CLINICAL HISTORY: abd pain hypotension TECHNIQUE: Helical axial images of the abdomen and pelvis were obtained and displayed. Automated dose lowering techniques and/or adjustment according to patient size were utilized for this exam. This e xam was performed with intravenous contrast. CT DOSE: 879.79 mGy.cm COMPARISON: Comparison is made to CT abdomen pelvis 07/01/2023 FINDINGS: Lower chest: Bibasilar atelectasis versus scarring is seen. Liver: Unremarkable. No focal lesions are seen. Gallbladder and biliary tree: Patient is status post cholecystectomy. Physiologic prominence of the b iliary ducts is noted. Pancreas: Unremarkable, no focal lesions. Spleen: Unremarkable. Adrenals: Unremarkable. Kidneys and ureters: Unremarkable. Bladder: Diffuse homogeneous wall thickening is seen. Reproductive organs: Patient is status post hysterectomy. Bowel: Rectal wall thickening is again seen. There is a small hiatal hernia. Distal esophageal wall t hickening is seen. Lymph nodes Retroperitoneal: Subcentimeter lymph nodes are noted. Pelvic: Unremarkable. Mesenteric: Unremarkable. Peritoneum: Normal. Vessels: Atherosclerotic calcifications are seen. Abdominal wall: Unremarkable. Bones: Degenerative changes in the visualized spine. IMPRESSION: 1. Circumferential thickening of the rectal wall is again seen, somewhat improved from the prior exa m. A nonspecific proctitis is likely. 2. Previously noted hydronephrosis has resolved. 3. Hiatal hernia with distal esophageal wall thickening, correlation for sinusitis is recommended. ACT 112: Negative or not required by law. Electronically signed by: Josh Lange M.D. 03/08/2024 2:37 PM
[2024-03-08] MEDS: SODIUM CHLORIDE 0.9% 500 ML IV ONE (16:03)
[2024-03-08 16:09] LABS: Appearance Urine Cloudy (Clear); Bacteria Urine Automated 1+ (None Seen); Bilirubin Urine Negative (Negative); Blood Urine Negative (Negative); Cast Urine Automated 0-2 /lpf (0-2); Color Urine Yellow; Epithelial Cell Urine Auto 0-2 /hpf (0-2); Glucose Urine UA Negative (Negative); Ketones Urine Negative (Negative); Leukocyte Esterase Urine 3+ (Negative); Nitrite Urine Negative (Negative); Protein Urine Negative (Negative); RBC Urine Automated 0-2 /hpf (0-2); Specific Gravity Urine 1.023 (1.000-1.030); Urobilinogen Urine Negative (Negative); WBC Urine Automated >50 /hpf (0-5); pH Urine 7.5 (4.5-7.5)
--- NOTE | 2024-03-08 16:31 | History & Physical Report ---
Date of Service March 08, 2024 Assessment & Plan (1) Hypotension: Plan: Admit to med telemetry Currently stable and nontoxic-appearing Presented to the ED due to 24 hours of recurrent diarrhea after taking multiple doses of MiraLAX, dehydration, and dysuria Was initially hypotensive on arrival with systolics in the 80s, currently stable after 1.5 L normal saline in the ED Suspect her hypotension with a combination of dehydration from poor oral intake, diarrhea, and continuing her home antihypertensives Will obtain stat lactate at the time of admission for further evaluation Will hold additional IV fluids at this time as she is currently stable and wants to try and eat Will continue home metoprolol but plan to hold Imdur and lisinopril for now, can restart both tomorrow if stable SQ Lovenox for DVT prophylaxis Heart healthy/DM type II diet AM CBC, CMP, mag, PT/INR (2) Diarrhea: Plan: Patient developed multiple episodes of nonbloody diarrhea over the past 24 hours after taking approximately 4 doses of MiraLAX due to approximately 1 week of constipation While diarrhea is most likely due to recent MiraLAX use, will obtain stool studies to rule out infectious pathology as well due to signs of ongoing proctitis on CT abdomen pelvis Hold stool softeners and laxatives at this time (3) UTI (urinary tract infection): Plan: UA is equivocal with cloudy urine, negative nitrates, 3+ leukocyte esterase, greater than 50 WBC, and 1+ bacteria However, patient has noted dysuria over the past 24 hours Was given a dose of ceftriaxone in the ED due to history of E. coli and allergy to cephalosporins Will continue with ciprofloxacin Follow urine and blood cultures (4) Type 2 diabetes mellitus with chronic kidney disease: Plan: Monitor BG ACHS, goal is [id number] Normally takes 12 units every morning, will convert to 6 units twice daily for now Start CF of 50 NCR 15 ACHS Hold metformin Adjust regimen as needed (5) History of Mckeon's esophagus: Plan: Continue famotidine and pantoprazole Plan The patient was discussed with Dr. Archer at time of admission History of Present Illness Chief Complaint: Diarrhea, dehydration, abd pain Primary Care Provider: Shiela Gipson MD Claire is a 78-year-old female with a past medical history significant for diabetes mellitus type 2, hypertension, Mckeon's esophagus, coronary artery di sease, HFpEF who presented to [facility] ED on 03/08/2024 with complaints of 1 week of abdominal pain, dehydration, initial constipation, and recent diarrhea after taking MiraLAX. She was noted to be hypotensive on arrival at 83/53, tachycardic with heart rate in the 90s, but was otherwise stable. Labs are significant for WBC within normal limits, CMP within normal limits, Pro-Jose Miguel within normal limits, and UA with cloudy appearance, 3+ leukocyte Estrace, greater than 50-50 1+ bacteria, and yeast present. CT of the abdomen pelvis with IV contrast was read as circumferential thickening of the rectal wall again seen, somewhat improved prior exam. A nonspecific proctitis is likely previously noted hydronephrosis has resolved. Hiatal hernia with distal soft wall thickening. Prior to admission the patient was 1.5 L normal saline and a dose of ciprofloxacin. Patient was sitting in bed in no acute distress at time of exam with her daughter and grandson at bedside, history is obtained from all. The patient has been experiencing constipation and decreased appetite for approximately 1 week. Over the past 24 hours she has taken approximately 4 doses of MiraLAX. Over the past 12 hours she has had multiple loose, nonbloody bowel movements. Denies recent fever, chills, chest pain, shortness of breath, abdominal pain, nausea/vomiting, melena, lower extremity swelling, and recent trauma. When asked, she states that she has been experiencing dysuria over the past 24 hours but denies hematuria. She was still taking all medications as prescribed including her antihypertensives which she did have this morning. She feels significantly improved since receiving IV fluids in the ED. She confirms she is a DNR/DNI and her daughter would make medical decisions for her if she cannot make them herself. Please refer to Dr. Archer's attestation for any changes to the treatment plan Allergies Allergy/AdvReac Type Severity Reaction Status Date / Time cephalexin Allergy Intermediate Rash and Verified 03/08/24 11:43 itchiness Cephalosporins Allergy Intermediate Rash and Verified 03/08/24 11:43 itchiness Sulfa (Sulfonamide Allergy Intermediate Hives Verified 03/08/24 11:43 Antibiotics) Home Medications Medication Instructions Recorded Confirmed Type diclofenac sodium 1 % topical gel 4 g topical QID PRN Pain #100 grams 07/09/23 03/08/24 Rx Lift Chair #1 ea 09/06/23 03/08/24 Rx buspirone 10 mg tablet 10 mg PO BID #180 tabs 09/27/23 03/08/24 Rx fluticasone fur. 100 mcg-umeclid 1 inh inhalation QAM 10/25/23 03/08/24 History 62.5 mcg-vilant 25 mcg inhalat.powder (Trelegy Ellipta) pantoprazole 40 mg tablet,delayed 40 mg PO QAM 10/27/23 03/08/24 History release metformin 500 mg tablet,extended 500 mg PO BID #120 tabs 11/08/23 03/08/24 Rx release 24 hr aspirin 81 mg tablet,delayed 81 mg PO QAM 11/18/23 03/08/24 History release isosorbide mononitrate 60 mg 60 mg PO QAM #60 tabs 12/03/23 03/08/24 Rx tablet,extended release 24 hr lidocaine 5 % topical patch 1 patch topical DAILY PRN pain #30 01/07/24 03/08/24 Rx (Lidoderm) ea magnesium oxide 400 mg (241.3 mg 400 mg PO BID #60 tabs 01/28/24 03/08/24 Rx magnesium) tablet metoprolol succinate 50 mg 50 mg PO QAM #90 tabs 02/02/24 03/08/24 Rx tablet,extended release 24 hr rosuvastatin 20 mg tablet 20 mg PO DAILY #90 tabs 02/02/24 03/08/24 Rx clotrimazole 1 % topical cream 1 applic topical BID 2 weeks #45 02/07/24 03/08/24 Rx grams insulin glargine 100 unit/mL (3 12 unit (0.12 mL) subcut QAM #15 mL 02/08/24 03/08/24 Rx mL) subcutaneous pen (Tiannaaglmary Suarez U-100 Insulin) famotidine 20 mg tablet 20 mg PO BID #60 tabs 02/24/24 03/08/24 Rx folic acid 1 mg tablet 1 mg PO QAM #90 tabs 02/24/24 03/08/24 Rx gabapentin 100 mg capsule 100 mg PO TID #90 caps 02/24/24 03/08/24 Rx lisinopril 5 mg tablet 5 mg PO QAM #90 tabs 02/24/24 03/08/24 Rx duloxetine 60 mg capsule,delayed 60 mg PO QAM #90 caps 02/25/24 03/08/24 Rx release ergocalciferol (vitamin D2) 1,250 50,000 unit PO WK #12 caps 02/29/24 03/08/24 Rx mcg (50,000 unit) capsule (Vitamin D2) Vit B-12 1000mcg Cyo Value 200+20 1 tab PO QAM 03/08/24 03/08/24 History ezetimibe 10 mg tablet 10 mg PO QAM 03/08/24 03/08/24 History Past Med/Surg History Problem List (Updated 03/08/24 @ 17:26 by Fadi Clemons DO) Abdominal pain (Acute) UTI (urinary tract infection) (Acute) Diarrhea (Acute) Acute hypotension (Acute) UTI (urinary tract infection) Diarrhea Dysphagia History of Mckeon's esophagus Background diabetic retinopathy associated with type 2 diabetes mellitus Weight loss Hypomagnesemia (Acute) Dyspnea on exertion Ataxia Poorly controlled type 2 diabetes mellitus Cervical spinal stenosis Degenerative disc disease, cervical (Acute) Hypertension (Acute) Cervical radiculopathy (Acute) Type 2 diabetes mellitus with chronic kidney disease Vitamin D deficiency Abnormal LFTs (Acute) Diabetic nephropathy CKD (chronic kidney disease), stage III (Acute) Reactive airway disease Odynophagia Dysphagia Folic acid deficiency Vitamin B12 deficiency (Chronic) Anemia Arthritis of knee, left Left knee DJD (Chronic) Dyslipidemia Anal stricture Chronic pain syndrome Cognitive dysfunction (Acute) Depression Diabetic gastroparesis Diabetic peripheral neuropathy Lumbar spondylosis Uncontrolled type 2 diabetes mellitus with neurologic complication, with long- term current use of insulin GERD (gastroesophageal reflux disease) Mckeon esophagus CAD (coronary artery disease) (Chronic) s/p stents to RCA November 2005; s/p stents to LAD, LCx in January 2006; s/p stents to RCA in 08/2006 IBS (irritable bowel syndrome) Anxiety Medical History (Updated 03/08/24 @ 17:26 by Fadi Clemons DO) Diabetic gastroparesis pt unaware Diabetic retinopathy Anxiety IBS (irritable bowel syndrome) CAD (coronary artery disease) s/p stents to RCA November 2005; s/p stents to LAD, LCx in January 2006; s/p stents to RCA in 08/2006 Mckeon esophagus Depression Dyslipidemia History of anemia Dysphagia Reactive airway disease well controlled w/ daily inhaler CKD (chronic kidney disease), stage III Diabetic neuropathy HTN (hypertension) Cervical spinal stenosis Esophageal ulcer without bleeding hx Hiatal hernia Hemorrhoids Esophageal spasm hx- pt not aware Edema mild, right LE History of COVID-19 2020 - resolved Acute non-ST elevation myocardial infarction (NSTEMI) 11/28/2021 had [place] medical management and follow with dr abdullahi apt 02/09/2022 Back pain Chest pain chronic chest pain and cardiac is negative GERD without esophagitis Diabetes mellitus, type 2 IDDM Myocardial Infarction [place]- November 2005, January 2006, Aug 2006 3 total within an 8 month span--HX OF CATH 2012 [facility] [place], FOLLOWS WITH DR. ABDULLAHI Surgical History Status post trigger finger release S/P coronary artery stent placement History of total hysterectomy with bilateral salpingo-oophorectomy (BSO) History of lumbar spinal fusion History of total right knee replacement (TKR) History of esophageal dilatation History of colonoscopy with polypectomy History of esophagogastroduodenoscopy (EGD) History of tooth extraction History of cholecystectomy History of cataract surgery History of cardiac cath Family History Brother Myocardial infarction Anxiety Heart disease Hypertension Cancer Sister Family history of reaction to anesthesia difficulty waking Hypertension Heart disease Myocardial infarction Anxiety Cancer Diabetes Father Anxiety Heart disease Hypertension Mother Anxiety Hypertension Heart disease Unknown Cancer skin, GI Denies family history of Ovarian cancer Prostate cancer Breast cancer Colorectal cancer Stroke Social History Smoking Status: Never smoker Tobacco Type: Cigarettes Age Started Using Tobacco: 18; Age Quit Using Tobacco: 57; Second Hand Exposure: No; Do You Dip or Chew Tobacco: No; Hx Alcohol Use: No Hx Substance Use: No Preferred Language: Vincentian Communication Ability: Effective Visual Impairment: Limited Hearing Ability: Normal Anesthesiologists' Assistant Required: No Beliefs That Will Affect Care: None marital status: / Current Living Situation: Alone current occupational status: retired and disabled How many Children do You have: 3 Other Information That Helps Us Care for You: No Feels Safe at Home: Yes Safety Concerns: Feels Safe At This Time Childhood Exposure to Second-Hand Smoke: No Diet: regular caffeine: Yes (drinks coffee, diet pepsi occasionally ) during the past year weight has: remained stable Dental Care, Regularly: No Physical Activity Frequency: Does not Exercise Seatbelt Use: always Sunscreen Use: No Assistive Devices: Denture - Upper, Denture - Lower, Walker and Wheelchair Physical Exam Physical Exam: Physical Exam: General: In no acute distress, stated age, well-nourished, non-toxic appearing HEENT: Normocephalic, atraumatic, no scleral icterus, pupils around round, s ymmetrical, and reactive to light, moist mucus membranes, trachea midline, no thyromegaly Chest/Pulm: No respiratory distress, symmetrical chest expansion, clear breath sounds throughout Cardiac: RRR, no murmurs noted Abdomen: Negative for ascites and bruising, normoactive bowel sounds, soft, mild tenderness in the suprapubic region but otherwise non-tender Musculoskeletal: Symmetrical and without signs of acute trauma, upper and lower extremities with full ROM, no atrophy, spasticity, or flaccidity Extremities: Radial, dorsalis pedis, and posterior tibial pulses are intact and symmetrical, no edema noted in the BL LE's Skin: Warm, dry, no rashes , lesions, or scars noted Neuro: Alert and oriented to person, place, month, year, and president, no focal defects, no tremors noted Psych: No acute distress, calm and cooperative during the exam Results & Data Results & Data Vital Signs (Past 12 Hours) Vital Signs Temp Pulse Pulse Resp BP BP Pulse Ox 03/08/24 16:01 85 12 133/76 96 03/08/24 15:18 82 18 98 03/08/24 15:18 82 18 132/74 98 03/08/24 14:31 78 18 98/56 L 98 03/08/24 13:51 85 17 98 03/08/24 13:42 89 17 97 03/08/24 13:30 126/67 03/08/24 13:30 126/67 03/08/24 13:12 92 H 17 98 03/08/24 13:00 88 14 97 03/08/24 13:00 122/62 03/08/24 13:00 122/62 03/08/24 13:00 122/62 03/08/24 12:57 88 03/08/24 12:23 36.5 C 100 H 22 83/53 L 97 O2 Del Method 03/08/24 16:01 Room Air 03/08/24 15:18 Room Air 03/08/24 15:18 Room Air 03/08/24 14:31 Room Air 03/08/24 13:51 03/08/24 13:42 03/08/24 13:30 03/08/24 13:30 03/08/24 13:12 03/08/24 13:00 03/08/24 13:00 03/08/24 13:00 03/08/24 13:00 03/08/24 12:57 03/08/24 12:23 Laboratory Results Abnormal lab results 03/08/24 03/08/24 Range/Units 12:48 15:28 RBC 3.71 L (4.20-5.40) M/uL Hgb 10.1 L (12.0-16.0) g/dl Hct 30.9 L (37.0-47.0) % Floyd # (Auto) 0.70 H (0.11-0.59) K/uL BUN 27 H (6-23) mg/dl Creatinine 1.23 H (0.6-1.2) mg/dl BUN/Creatinine Ratio 22.0 H (10-20) Glucose 184 H (70-99(Fasting)) mg/dl Urine Appearance Cloudy A (Clear) Ur Leukocyte Esterase 3+ H (Negative) Urine WBC (Auto) >50 H (0-5) /hpf Urine Bacteria (Auto) 1+ H (None Seen) Urine Yeast Present A (None Prsent) Diagnostic Findings Abdomen/Pelvis CT 03/08/24 12:34 CT abd pelvis IV con only CLINICAL HISTORY: abd pain hypotension TECHNIQUE: Helical axial images of the abdomen and pelvis were obtained and displayed. Automated dose lowering techniques and/or adjustment according to patient size were utilized for this exam. This exam was performed with intravenous contrast. CT DOSE: 879.79 mGy.cm COMPARISON: Comparison is made to CT abdomen pelvis 07/01/2023 FINDINGS: Lower chest: Bibasilar atelectasis versus scarring is seen. Liver: Unremarkable. No focal lesions are seen. Gallbladder and biliary tree: Patient is status post cholecystectomy. Physiologic prominence of the biliary ducts is noted. Pancreas: Unremarkable, no focal lesions. Spleen: Unremarkable. Adrenals: Unremarkable. Kidneys and ureters: Unremarkable. Bladder: Diffuse homogeneous wall thickening is seen. Reproductive organs: Patient is status post hysterectomy. Bowel: Rectal wall thickening is again seen. There is a small hiatal hernia. Distal esophageal wall thickening is seen. Lymph nodes Retroperitoneal: Subcentimeter lymph nodes are noted. Pelvic: Unremarkable. Mesenteric: Unremarkable. Peritoneum: Normal. Vessels: Atherosclerotic calcifications are seen. Abdominal wall: Unremarkable. Bones: Degenerative changes in the visualized spine. IMPRESSION: 1. Circumferential thickening of the rectal wall is again seen, somewhat impr logan from the prior exam. A nonspecific proctitis is likely. 2. Previously noted hydronephrosis has resolved. 3. Hiatal hernia with distal esophageal wall thickening, correlation for sinusitis is recommended. ACT 112: Negative or not required by law. Electronically signed by: Josh Lange M.D. 03/08/2024 2:37 PM Code Status & VTE Plan Code Status DNR/DNI VTE Prophylaxis Plan VTE Prophylaxis will be ordered: Yes Supervising Physician Co-Signing Physician Notes I personally saw and examined the patient. I verified all hathaway points and agree with Rosas Jurado PA-C with the following exceptions and/or additions: 78 year old female presents to the ER with diarrhea after taking MiraLAX. Also having dysuria over the last 24 hours. Recent history of E. coli bacteremia from urinary source in June 2023. O/E A&Ox3, HS RRR, no murmurs, Chest CTAB, Abdo SNT, no CVA tenderness A/P UTI - ciprofloxacin, follow up urine and blood cultures Hypotension - hold anti-hypertensives other than metoprolol, suspect secondary to UTI + diarrhea Diarrhea - secondary to MiraLAX use PG Care Time/CCT Total # of Minutes Spent Total Time Spent with Patient: Total time spent is greater than 50% in coordination of care (as documented) at patient's floor/unit and/or counseling patient: Coding [place] [address] INT INP/OBS CARE 2/55MIN Patient Type Established Medical Decision Making Moderate Complexity Diagnoses Hypotension I95.9 Diarrhea R19.7 UTI (urinary tract infection) N39.0 Type 2 diabetes mellitus with chronic kidney disease E11.22 History of Mckeon's esophagus Z87.19
[2024-03-08] MEDS ORDERED: GLUCAGON FOR INJ 1 MG VIAL SQ PRN (16:33)
[2024-03-08] MEDS ORDERED: DEXTROSE 50% 50 ML SYRINGE IV PRN (16:33)
[2024-03-08] MEDS ORDERED: CARBOHYDRATES FOR HYPOGLYCEMIA PO PRN (16:33)
[2024-03-08] MEDS ORDERED: GLUCOSE 10 TAB/TUBE PO PRN (16:33)
[2024-03-08] MEDS ORDERED: GLUCOSE 40% GEL 15 GM TUBE PO PRN (16:33)
[2024-03-08] MEDS: CIPROFLOXACIN / D5W 400 MG/200 ML BAG IV STA (16:38)
[2024-03-08 17:08] LABS: Magnesium 1.6 mg/dl (1.7-2.4)
[2024-03-08] MEDS: MAGNESIUM SULFATE / D5W 1 GM/100 ML BAG IV ONE (19:17)
[2024-03-08 21:05] LABS: Adenovirus F 40/41 PCR Not Detected (NotDetected); Astrovirus PCR Not Detected (NotDetected); Campylobacter PCR Not Detected (NotDetected); Cryptosporidium PCR Not Detected (NotDetected); Cyclospora cayetanensis PCR Not Detected (NotDetected); Entamoeba histolytica PCR Not Detected (NotDetected); Enteroaggregative E.coli(EAEC) Not Detected (NotDetected); Enteropathogenic E.coli (EPEC) Not Detected (NotDetected); Enterotoxigenic E.coli (ETEC) Not Detected (NotDetected); Giardia lamblia PCR Not Detected (NotDetected); Norovirus GI/GII PCR Not Detected (NotDetected); Plesiomonas shigelloides PCR Not Detected (NotDetected); Rotavirus A PCR Not Detected (NotDetected); Salmonella PCR Not Detected (NotDetected); Sapovirus PCR Not Detected (NotDetected); Shiga-like Toxin E.coli (STEC) Not Detected (NotDetected); Shigella/Enteroinvasive E.coli Not Detected (NotDetected); Vibrio cholerae PCR Not Detected (NotDetected); Vibrio species PCR Not Detected (NotDetected); Yersinia enterocolitica PCR Not Detected (NotDetected)
[2024-03-08] MEDS: LANTUS PER UNIT CHARGE SQ SCH (21:47)
[2024-03-08] MEDS: INSULIN ASPART PER UNIT CHARGE SC SCH (21:47)
[2024-03-08] MEDS: busPIRone 5 MG TAB PO SCH (21:48)
[2024-03-08] MEDS: FAMOTIDINE 20 MG TAB PO SCH (21:48)
[2024-03-08] MEDS: ENOXAPARIN INJ 40 MG/0.4 ML SYR SQ SCH (21:48)
[2024-03-08] MEDS: GABAPENTIN 100 MG CAP PO SCH (21:48)
[2024-03-09] MEDS: CIPROFLOXACIN / D5W 400 MG/200 ML BAG IV SCH (04:45)
[2024-03-09 07:16] LABS: Basophils # (auto) 0.04 K/uL (0.00-0.20); Basophils % (auto) 0.8 %; Eosinophils # (auto) 0.16 K/uL (0.00-0.50); Eosinophils % (auto) 3.3 %; Hematocrit (blood only) 27.8 % (37.0-47.0); Hemoglobin 9.1 g/dl (12.0-16.0); Immature Granulocytes # (auto) 0.01 K/uL (0.01-0.20); Immature Granulocytes % (auto) 0.2 %; Lymphocytes # (auto) 2.02 K/uL (1.20-3.40); Lymphocytes % (auto) 42.3 %; Mean Corpuscular Hemoglobin 27.2 pg (25.0-34.0); Mean Corpuscular Hgb Conc 32.7 g/dL (32.0-36.0); Mean Platelet Volume 10.3 fL (9.4-12.4); Monocytes # (auto) 0.49 K/uL (0.11-0.59); Monocytes % (auto) 10.3 %; Neutrophils # (auto) 2.06 K/uL (1.40-6.50); Neutrophils % (auto) 43.1 %; Platelet Count 192 K/uL (130-400); RDW Coefficient of Variation 14.1 % (11.5-14.5); RDW Standard Deviation 42.5 fL (36.4-46.3); Red Blood Count 3.35 M/uL (4.20-5.40); White Blood Count 4.78 K/ul (4.8-10.8)
[2024-03-09 07:35] LABS: Potassium 3.8 mmol/L (3.5-5.1)
[2024-03-09 07:36] LABS: Albumin Globulin Ratio 1.2 (0.9-2); Albumin Level 3.1 gm/dl (3.4-5.0); BUN Creatinine Ratio 17.9 (10-20); Bilirubin,Total 0.2 mg/dl (0.2-1.0); Est GFR (African American) 55.3 ml/min; Est GFR (Non-African American) 47.7 ml/min; Globulin 2.6 gm/dl (2.5-4.0); Magnesium 1.7 mg/dl (1.7-2.4); Total Protein 5.7 gm/dl (6.0-8.3)
[2024-03-09 07:43] LABS: Prothrombin Time 10.9 Seconds (9.0-12.0)
[2024-03-09] MEDS: ASPIRIN 81 MG ECTAB PO SCH (08:47)
[2024-03-09] MEDS: DULoxetine HCL 60 MG CAP PO SCH (08:47)
[2024-03-09] MEDS: FLUTICASONE FUROATE 100MCG 14 PUFFS/INHALER INH SCH (08:48)
[2024-03-09] MEDS: METOPROLOL SUCC 50MG EXT REL TAB PO SCH (08:49)
[2024-03-09] MEDS: PANTOprazole 40 MG TAB PO SCH (08:49)
[2024-03-09] MEDS: UMECLIDINIUM/VILANTEROL 62.5/25MCG 7 PUFFS/INHALER INH SCH (08:50)
[2024-03-09] MEDS: ROSUVASTATIN CALCIUM 20 MG TAB PO SCH (08:50)
[2024-03-09] MEDS ORDERED: NON-FORMULARY MEDICATION (Fluticasone-Umeclidin-Vilanter [Trelegy Ellipta] 100-62.5-25 mcg INH SCH (09:00)
[2024-03-09] MEDS: LACTATED RINGER'S 1,000 ML IV SCH (18:28)
[2024-03-09] MEDS: ADVANCED PROBIOTIC 625 MG CAPSULE PO SCH (19:32)
--- NOTE | 2024-03-09 22:35 | Hospitalist Progress Note ---
Date of Service March 09, 2024 Assessment & Plan (1) Hypotension: Plan: Admit to med telemetry Currently stable and nontoxic-appearing Presented to the ED due to 24 hours of recurrent diarrhea after taking multiple doses of MiraLAX, dehydration, and dysuria Was initially hypotensive on arrival with systolics in the 80s, currently stable after 1.5 L normal saline in the ED Suspect her hypotension with a combination of dehydration from poor oral intake, diarrhea, and continuing her home antihypertensives Patient will require an additional bag of IV fluids and monitor.. - Continue to hold bp meds SQ Lovenox for DVT prophylaxis Heart healthy/DM type II diet AM CBC, CMP, mag, PT/INR (2) Diarrhea: Plan: Patient developed multiple episodes of nonbloody diarrhea over the past 24 hours after taking approximately 4 doses of MiraLAX due to approximately 1 week of constipation While diarrhea is most likely due to recent MiraLAX use, will obtain stool studies to rule out infectious pathology as well due to signs of ongoing proctitis on CT abdomen pelvis Hold stool softeners and laxatives at this time (3) UTI (urinary tract infection): Plan: UA is equivocal with cloudy urine, negative nitrates, 3+ leukocyte esterase, greater than 50 WBC, and 1+ bacteria However, patient has noted dysuria over the past 24 hours Was given a dose of ceftriaxone in the ED due to history of E. coli and allergy to cephalosporins Will continue with ciprofloxacin Follow urine and blood cultures (4) Type 2 diabetes mellitus with chronic kidney disease: Plan: Monitor BG ACHS, goal is [id number] Normally takes 12 units every morning, will convert to 6 units twice daily for now Start CF of 50 NCR 15 ACHS Hold metformin Adjust regimen as needed (5) History of Mckeon's esophagus: Plan: Continue famotidine and pantoprazole Admission and Anticipated Discharge Date Admission Date: March 08, 2024 Subjective Patient reports feeling well. She has no new complaints. Review of Systems Review of Systems: All systems reviewed & are unremarkable except as noted in HPI & below Physical Exam Physical Exam: \ General: In no acute distress, stated age, well-nourished, non-toxic appearing HEENT: Normocephalic, atraumatic Chest/Pulm: No respiratory distress, symmetrical chest expansion, clear breath sounds throughout Cardiac: RRR, no murmurs noted Results & Data Results & Data Vital Signs (Past 12 Hours) Vital Signs Temp Pulse Pulse Resp BP Pulse Ox O2 Del Method 03/09/24 20:50 Room Air 03/09/24 20:03 36.5 C 76 16 92/60 L 98 Room Air 03/09/24 15:15 36.8 C 73 18 90/62 L 98 Room Air 03/09/24 14:02 78 03/09/24 11:50 36.7 C 81 18 96/57 L 94 Room Air PG Care Time/CCT Total # of Minutes Spent Total Time Spent with Patient: Total time spent is greater than 50% in coordination of care (as documented) at patient's floor/unit and/or counseling patient: Coding Level of Care Code 56917 SUB INP/OBS CARE 2/35MIN Diagnoses Hypotension I95.9 Diarrhea R19.7 UTI (urinary tract infection) N39.0 Type 2 diabetes mellitus with chronic kidney disease E11.22 History of Mckeon's esophagus Z87.19
[2024-03-10 06:49] LABS: Basophils # (auto) 0.07 K/uL (0.00-0.20); Basophils % (auto) 1.3 %; Eosinophils % (auto) 3.7 %; Hematocrit (blood only) 28.6 % (37.0-47.0); Hemoglobin 9.4 g/dl (12.0-16.0); Immature Granulocytes # (auto) 0.01 K/uL (0.01-0.20); Immature Granulocytes % (auto) 0.2 %; Lymphocytes % (auto) 48.5 %; Mean Corpuscular Hgb Conc 32.9 g/dL (32.0-36.0); Mean Corpuscular Volume 82.2 fL (80.0-100.0); Mean Platelet Volume 10.2 fL (9.4-12.4); Monocytes # (auto) 0.48 K/uL (0.11-0.59); Neutrophils % (auto) 37.3 %; Platelet Count 197 K/uL (130-400); RDW Standard Deviation 41.5 fL (36.4-46.3); Red Blood Count 3.48 M/uL (4.20-5.40); White Blood Count 5.36 K/ul (4.8-10.8)
[2024-03-10 07:09] LABS: Prothrombin Time 10.8 Seconds (9.0-12.0)
[2024-03-10 07:13] LABS: Albumin Globulin Ratio 1.1 (0.9-2); Albumin Level 3.1 gm/dl (3.4-5.0); BUN Creatinine Ratio 19.8 (10-20); Bilirubin,Total 0.3 mg/dl (0.2-1.0); Calcium 8.9 mg/dl (8.6-10.3); Est GFR (African American) 55.9 ml/min; Est GFR (Non-African American) 48.2 ml/min; Globulin 2.7 gm/dl (2.5-4.0); Magnesium 1.6 mg/dl (1.7-2.4); Potassium 3.9 mmol/L (3.5-5.1); Total Protein 5.8 gm/dl (6.0-8.3)
[2024-03-10] MEDS: AMOXICILLIN 500 MG CAP PO SCH (10:45)
--- NOTE | 2024-03-12 22:06 | Discharge Summary ---
Discharge Summary Date of Service March 10, 2024 Principal Dx & Hospital Course #1 = Principal Diagnosis (1) Hypotension: Admit to med telemetry Currently stable and nontoxic-appearing Presented to the ED due to 24 hours of recurrent diarrhea after taking multiple doses of MiraLAX, dehydration, and dysuria Was initially hypotensive on arrival with systolics in the 80s, currently stable after 1.5 L normal saline in the ED Suspect her hypotension with a combination of dehydration from poor oral intake, diarrhea, and continuing her home antihypertensives Patient improved with IV fluids. (2) Diarrhea: Patient developed multiple episodes of nonbloody diarrhea over the past 24 hours after taking approximately 4 doses of MiraLAX due to approximately 1 week of constipation diarrhea is most likely due to recent MiraLAX use, Improved as stool softeners and laxatives were held at this time. (3) UTI (urinary tract infection): UA is equivocal with cloudy urine, negative nitrates, 3+ leukocyte esterase, greater than 50 WBC, and 1+ bacteria However, patient has noted dysuria over the past 24 hours Was given a dose of ceftriaxone in the ED due to history of E. coli and allergy to cephalosporins group b strep, will complee course with amoxicillin (4) Type 2 diabetes mellitus with chronic kidney disease: Monitor BG ACHS, goal is [id number] Normally takes 12 units every morning, will convert to 6 units twice daily for now (5) History of Mckeon's esophagus: Continue famotidine and pantoprazole Admission HPI Per Admitting Provider Claire is a 78-year-old female with a past medical history significant for diabetes mellitus type 2, hypertension, Mckeon's esophagus, coronary artery disease, HFpEF who presented to [facility] ED on 03/08/2024 with complaints of 1 week of abdominal pain, dehydration, initial constipation, and recent diarrhea after taking MiraLAX. She was noted to be hypotensive on arrival at 83/53, tachycardic with heart rate in the 90s, but was otherwise stable. Labs are significant for WBC within normal limits, CMP within normal limits, Pro-Jose Miguel within normal limits, and UA with cloudy appearance, 3+ leukocyte Estrace, greater than 50-50 1+ bacteria, and yeast present. CT of the abdomen pelvis with IV contrast was read as circumferential thickening of the rectal wall again seen, somewhat improved prior exam. A nonspecific proctitis is likely previously noted hydronephrosis has resolved. Hiatal hernia with distal soft wall thickening. Prior to admission the patient was 1.5 L normal saline and a dose of ciprofloxacin. Patient was sitting in bed in no acute distress at time of exam with her daughter and grandson at bedside, history is obtained from all. The patient has been experiencing constipation and decreased appetite for approximately 1 week. Over the past 24 hours she has taken approximately 4 doses of MiraLAX. Over the past 12 hours she has had multiple loose, nonbloody bowel movements. Denies recent fever, chills, chest pain, shortness of breath, abdominal pain, n ausea/vomiting, melena, lower extremity swelling, and recent trauma. When asked, she states that she has been experiencing dysuria over the past 24 hours but denies hematuria. She was still taking all medications as prescribed including her antihypertensives which she did have this morning. She feels significantly improved since receiving IV fluids in the ED. She confirms she is a DNR/DNI and her daughter would make medical decisions for her if she cannot make them herself. Discharge Exam \ General: In no acute distress, stated age, well-nourished, non-toxic appearing HEENT: Normocephalic, atraumatic Chest/Pulm: No respiratory distress, symmetrical chest expansion, clear breath sounds throughout Cardiac: RRR, no murmurs noted Updated Medication List Medication Instructions Recorded Confirmed Type diclofenac sodium 1 % topical gel 4 g topical QID PRN Pain #100 grams 07/09/23 03/08/24 Rx Lift Chair #1 ea 09/06/23 03/08/24 Rx buspirone 10 mg tablet 10 mg PO BID #180 tabs 09/27/23 03/08/24 Rx fluticasone fur. 100 mcg-umeclid 1 inh inhalation QAM 10/25/23 03/08/24 History 62.5 mcg-vilant 25 mcg inhalat.powder (Trelegy Ellipta) pantoprazole 40 mg tablet,delayed 40 mg PO QAM 10/27/23 03/08/24 History release metformin 500 mg tablet,extended 500 mg PO BID #120 tabs 11/08/23 03/08/24 Rx release 24 hr aspirin 81 mg tablet,delayed 81 mg PO QAM 11/18/23 03/08/24 History release isosorbide mononitrate 60 mg 60 mg PO QAM #60 tabs 12/03/23 03/08/24 Rx tablet,extended release 24 hr lidocaine 5 % topical patch 1 patch topical DAILY PRN pain #30 01/07/24 03/08/24 Rx (Lidoderm) ea magnesium oxide 400 mg (241.3 mg 400 mg PO BID #60 tabs 01/28/24 03/08/24 Rx magnesium) tablet metoprolol succinate 50 mg 50 mg PO QAM #90 tabs 02/02/24 03/08/24 Rx tablet,extended release 24 hr rosuvastatin 20 mg tablet 20 mg PO DAILY #90 tabs 02/02/24 03/08/24 Rx clotrimazole 1 % topical cream 1 applic topical BID 2 weeks #45 02/07/24 03/08/24 Rx grams insulin glargine 100 unit/mL (3 12 unit (0.12 mL) subcut QAM #15 mL 02/08/24 03/08/24 Rx mL) subcutaneous pen (Natasha Suarez U-100 Insulin) famotidine 20 mg tablet 20 mg PO BID #60 tabs 02/24/24 03/08/24 Rx folic acid 1 mg tablet 1 mg PO QAM #90 tabs 02/24/24 03/08/24 Rx gabapentin 100 mg capsule 100 mg PO TID #90 caps 02/24/24 03/08/24 Rx lisinopril 5 mg tablet 5 mg PO QAM #90 tabs 02/24/24 03/08/24 Rx duloxetine 60 mg capsule,delayed 60 mg PO QAM #90 caps 02/25/24 03/08/24 Rx release ergocalciferol (vitamin D2) 1,250 50,000 unit PO WK #12 caps 02/29/24 03/08/24 Rx mcg (50,000 unit) capsule (Vitamin D2) Vit B-12 1000mcg [place]yo Value 200+20 1 tab PO QAM 03/08/24 03/08/24 History ezetimibe 10 mg tablet 10 mg PO QAM 03/08/24 03/08/24 History amoxicillin 500 mg capsule 500 mg PO BID #10 caps 03/10/24 Rx Hospital Stay Data Consultations 03/08/24 16:19 ED Decision to Admit Stat Diagnostic Imagining Performed 03/08/24 12:34 CT abd pelvis IV con only Stat Pending Results Patient Have Any Pending Studies at Discharge: No Discharge Instructions Given to Patient (Per Discharging Provider) Recommend followup with PCP in 1-2 weeks. Hold lisinopril for now. Total Time Total Time Spent Total Time Spent (In Minutes): 32 Coding Level of Care Code 48378 INP/OBS DISCH >30 MIN Diagnoses Hypotension I95.9 Diarrhea R19.7 UTI (urinary tract infection) N39.0 Type 2 diabetes mellitus with chronic kidney disease E11.22 History of Mckeon's esophagus Z87.19
== END 2024-03-10 14:11 | disposition home health service (06) ==
LOC: ED 12:20 → EDINP 12:20 → SUATTDRO 16:33 → EDINP 19:40 → 2N 21:21

== ENCOUNTER 2024-10-20 09:43 | Observation (INO) ==
[2024-10-20 10:42] LABS: Basophils # (auto) 0.06 K/uL (0.00-0.20); Eosinophils # (auto) 0.26 K/uL (0.00-0.50); Eosinophils % (auto) 4.3 %; Hematocrit (blood only) 29.4 % (37.0-47.0); Hemoglobin 9.6 g/dl (12.0-16.0); Immature Granulocytes # (auto) 0.01 K/uL (0.01-0.20); Immature Granulocytes % (auto) 0.2 %; Lymphocytes % (auto) 30.1 %; Mean Corpuscular Hgb Conc 32.7 g/dL (32.0-36.0); Mean Corpuscular Volume 82.8 fL (80.0-100.0); Mean Platelet Volume 9.5 fL (9.4-12.4); Monocytes # (auto) 0.45 K/uL (0.11-0.59); Monocytes % (auto) 7.5 %; Neutrophils # (auto) 3.41 K/uL (1.40-6.50); Neutrophils % (auto) 56.9 %; Platelet Count 237 K/uL (130-400); RDW Coefficient of Variation 14.9 % (11.5-14.5); RDW Standard Deviation 45.3 fL (36.4-46.3); Red Blood Count 3.55 M/uL (4.20-5.40); White Blood Count 5.99 K/ul (4.8-10.8)
[2024-10-20 10:58] LABS: Albumin Globulin Ratio 1.2 (0.9-2); Albumin Level 3.6 gm/dl (3.4-5.0); BUN Creatinine Ratio 16.1 (10-20); Bilirubin,Total 0.4 mg/dl (0.2-1.0); Calcium 9.1 mg/dl (8.6-10.3); Potassium 4.3 mmol/L (3.5-5.1); Total Protein 6.6 gm/dl (6.0-8.3)
[2024-10-20] MEDS: OPTIRAY 320 100ml IV ONE (11:11)
--- NOTE | 2024-10-20 11:23 | Emergency Department Note ---
Impression & Plan Stercoral colitis, Acute constipation ED Provider Note NAME: SHIRA CUNNINGHAM AGE: 79 SEX: F : 1945 ARRIVES VIA: Walk-In INFORMANT: Patient, ED PROVIDER(S): Alen Hough MD CHIEF COMPLAINT: Diarrhea HPI: This is a 79-year-old female present for diarrhea. Patient notes that she has a diarrhea for the past 4 weeks. She notes she had this previously in which she had a stool ball in her rectum and was having diarrhea. She notes this feels fairly similar. She also notes she is scheduled for a colonoscopy with GI in the next 1 month. She was taking Pepto-Bismol daily for her diarrhea. ROS: See above HPI for pertinent positives & negatives. A total of 10 systems reviewed and were otherwise negative. PAST MEDICAL HISTORY: See Below PAST SURGICAL HISTORY: See Below FAMILY HISTORY: See Below SOCIAL HISTORY: See Below HOME MEDICATIONS: See Below ALLERGIES: See Below VITALS: See Below PHYSICAL EXAMINATION: General: resting comfortably in no acute distress Head: Normocephalic and atraumatic Eyes: Normal inspection, extraocular muscles intact Ear, nose, throat: Normal external exam Neck: Normal range of motion Respiratory: lungs clear to auscultation bilaterally Cardiovascular: Regular rate/rhythm, no murmur GI: soft, nontender, no guarding or rebound Extremities: nontender, moves all extremities Neuro: The patient awake and alert, appropriately conversive, no focal deficits, symmetric faces Skin: Warm, dry, and intact MEDICAL DECISION MAKING: This is a 79-year-old female presenting for diarrhea. Patient reports clinically well but that she has had persistent diarrhea for multiple weeks now. She states last time this happened she had a fairly large stool ball. Will do CT imaging to elucidate for any underlying mass, obstruction, SBO, cervical colitis -Bloodwork is reviewed showing no significant leukocytosis, anemia, electrolyte or creatinine abnormality -CT imaging does reveal stercoral colitis -Will try soapsuds enema for symptomatic relief -After nursing staff attempted to presenting, if unsuccessful, no other pain enema and no significant mount of stool was expelled -Attempted manual disimpaction. Patient has external hemorrhoids as well as fairly small caliber rectum. Unable to tolerate procedure. Stool was not able to be disimpacted due to patient discomfort and technicallimitatiom -Will admit the patient for further bowel cleanout as patient does have struggle colitis as well as large stool burden - Differential diagnosis: discussed with Dr. Archer for admission Independent History obtained from: Daughter Diagnostics interpreted by me: ECG: None Cardiac Monitoring: An order was placed for continuous cardiac monitoring. The monitor shows a rate of 72 with sinus rhythm. Past Med/Surg History Problem List (Updated 10/20/24 @ 16:32 by Alen Hough MD) Acute constipation (Acute) Stercoral colitis (Acute) Stercoral colitis Dementia Chronic constipation with overflow Diarrhea (Acute) Dysphagia History of Mckeon's esophagus Background diabetic retinopathy associated with type 2 diabetes mellitus Weight loss Hypomagnesemia (Acute) Dyspnea on exertion Ataxia Cervical spinal stenosis Degenerative disc disease, cervical (Acute) Hypertension (Acute) Cervical radiculopathy (Acute) Type 2 diabetes mellitus with chronic kidney disease Vitamin D deficiency CKD (chronic kidney disease), stage III (Acute) Reactive airway disease Folic acid deficiency Vitamin B12 deficiency (Chronic) Anemia Arthritis of knee, left Left knee DJD (Chronic) Dyslipidemia Chronic pain syndrome Cognitive dysfunction (Acute) Depression Lumbar spondylosis Uncontrolled type 2 diabetes mellitus with neurologic complication, with long- term current use of insulin GERD (gastroesophageal reflux disease) Mckeon esophagus CAD (coronary artery disease) (Chronic) s/p stents to RCA November 2005; s/p stents to LAD, LCx in January 2006; s/p stents to RCA in 08/2006 IBS (irritable bowel syndrome) Anxiety Medical History (Updated 10/20/24 @ 16:32 by Alen Hough MD) Anal stricture Diabetic gastroparesis pt unaware Anxiety IBS (irritable bowel syndrome) CAD (coronary artery disease) s/p stents to RCA November 2005; s/p stents to LAD, LCx in January 2006; s/p stents to RCA in 08/2006 Mckeon esophagus History of anemia Reactive airway disease well controlled w/ daily inhaler HTN (hypertension) Cervical spinal stenosis Esophageal ulcer without bleeding hx Hiatal hernia Hemorrhoids Esophageal spasm hx- pt not aware Edema mild, right LE History of COVID-2020 - resolved Acute non-ST elevation myocardial infarction (NSTEMI) 11/28/2021 had [place] medical management and follow with dr abdullahi apt 02/09/2022 GERD without esophagitis Myocardial Infarction [place]- November 2005, January 2006, Aug 2006 3 total within an 8 month span--HX OF CATH 2012 [facility] [place] FOLLOWS WITH DR. ABDULLAHI Surgical History Status post trigger finger release right thumb S/P coronary artery stent placement s/p stents to RCA November 2005; s/p stents to LAD, LCx in January 2006; s/p stents to RCA in 08/2006 History of total hysterectomy with bilateral salpingo-oophorectomy (BSO) History of lumbar spinal fusion History of total right knee replacement (TKR) History of esophageal dilatation History of colonoscopy with polypectomy History of esophagogastroduodenoscopy (EGD) History of tooth extraction all teeth History of cholecystectomy History of cataract surgery BL History of cardiac cath last 2012 @ [facility] [place], no stents--s/p stents to RCA November 2005; s/p stents to LAD, LCx in January 2006; s/p stents to RCA in 08/2006 Family History Brother Myocardial infarction Anxiety Heart disease Hypertension Cancer Sister Family history of reaction to anesthesia difficulty waking Hypertension Heart disease Myocardial infarction Anxiety Cancer Diabetes Father Anxiety Heart disease Hypertension Mother Anxiety Hypertension Heart disease Unknown Cancer skin, GI Denies family history of Ovarian cancer Prostate cancer Breast cancer Colorectal cancer Stroke Social History Smoking Status: Former smoker Tobacco Type: Cigarettes Age Started Using Tobacco: 18; Age Quit Using Tobacco: 57; packs per day: 0.5; Second Hand Exposure: No; Do You Dip or Chew Tobacco: No; Hx Alcohol Use: No Hx Substance Use: No Preferred Language: Citizen Of [place] Communication Ability: Effective Visual Impairment: Limited Hearing Ability: Normal Dairy Tester Required: No Beliefs That Will Affect Care: None marital status: / Current Living Situation: Alone current occupational status: retired and disabled How many Children do You have: 3 Feels Safe at Home: Yes Childhood Exposure to Second-Hand Smoke: No Diet: regular caffeine: Yes (drinks coffee, diet pepsi occasionally ) during the past year weight has: remained stable Dental Care, Regularly: No Physical Activity Frequency: Does not Exercise Seatbelt Use: always Sunscreen Use: No Assistive Devices: Walker Allergies Allergies Allergy/AdvReac Type Severity Reaction Status Date / Time cephalexin Allergy Intermediate Rash and Verified 10/20/24 12:53 itchiness Cephalosporins Allergy Intermediate Rash and Verified 10/20/24 12:53 itchiness Sulfa (Sulfonamide Allergy Intermediate Hives Verified 10/20/24 12:53 Antibiotics) Home Meds Home Medications Medication Instructions Recorded Confirmed aspirin 81 mg tablet,delayed 81 mg PO QAM 11/18/23 10/20/24 release insulin glargine 100 unit/mL (3 4 - 12 unit subcut BID 10/20/24 10/20/24 mL) subcutaneous pen (Basaglar KwikPen U-100 Insulin) pantoprazole 40 mg tablet,delayed 40 mg PO BID 10/20/24 10/20/24 release Previous Rx's Medication Instructions Recorded diclofenac sodium 1 % topical gel 4 g topical QID PRN Pain #100 grams 07/09/23 Lift Chair #1 ea 09/06/23 ergocalciferol (vitamin D2) 1,250 50,000 unit PO WK #12 caps 05/17/24 mcg (50,000 unit) capsule (Vitamin D2) isosorbide mononitrate 60 mg 60 mg PO QAM #60 tabs 06/13/24 tablet,extended release 24 hr Vit B-12 1000mcg Cyo Value 200+20 See Rx Instructions .Route 08/04/24 .COMPLEX #90 ea folic acid 1 mg tablet 1 mg PO QAM #90 tabs 08/10/24 mecobalamin (vitamin B12) 1,000 1,000 mcg PO DAILY #90 tabs 08/10/24 mcg chewable tablet buspirone 10 mg tablet 10 mg PO BID #180 tabs 09/07/24 famotidine 20 mg tablet 20 mg PO BID #180 tabs 09/12/24 magnesium oxide 400 mg (241.3 mg 400 mg PO DAILY #30 tabs 09/27/24 magnesium) tablet gabapentin 100 mg capsule 100 mg PO TID #90 caps 09/28/24 duloxetine 60 mg capsule,delayed 60 mg PO QAM #90 caps 10/05/24 release fluticasone fur. 100 mcg-umeclid 1 inh inhalation QAM #60 ea 10/05/24 62.5 mcg-vilant 25 mcg inhalat.powder (Trelegy Ellipta) metformin 500 mg tablet,extended 500 mg PO BID #180 tabs 10/05/24 release 24 hr metoprolol succinate 50 mg 50 mg PO QAM #90 tabs 10/05/24 tablet,extended release 24 hr rosuvastatin 20 mg tablet 20 mg PO DAILY #90 tabs 10/05/24 ferrous sulfate 325 mg (65 mg 325 mg PO DAILY #30 tabs 10/06/24 iron) tablet Results & Data (ED) Vital Signs Vital Signs - 24 hr 10/20/24 09:48 10/20/24 11:42 10/20/24 14:51 Temperature 37.0 C Temperature Source Oral Pulse Rate 81 Pulse Rate [Apical] 68 72 Pulse Rhythm [Apical] Regular Regular Pulse Strength [Apical] Normal Normal Respiratory Rate 20 16 18 Respiratory Effort / Characteristics Non-Labored Spontaneous Non-Labored Spontaneous Non-Labored Respiratory Depth Normal Normal Normal Respiratory Pattern Regular Regular Regular Blood Pressure 148/79 H Blood Pressure [Right Arm] 174/94 H 182/104 H Blood Pressure Mean 102 Blood Pressure Mean [Right Arm] 120 130 Pulse Oximetry 99 98 97 Oxygen Delivery Method Room Air Room Air Room Air Sepsis Recent Fever Within 48 Hours No Sepsis New/Unexplained Change in Mental Status N/A Sepsis Action Taken by Nursing No Action Required Laboratory Data 10/20/24 10:27 10/20/24 10:27 Lab Results 10/20/24 Range/Units 10:27 WBC 5.99 (4.8-10.8) K/ul RBC 3.55 L (4.20-5.40) M/uL Hgb 9.6 L (12.0-16.0) g/dl Hct 29.4 L (37.0-47.0) % MCV 82.8 (80.0-100.0) fL MCH 27.0 (25.0-34.0) pg MCHC 32.7 (32.0-36.0) g/dL RDW Std Deviation 45.3 (36.4-46.3) fL RDW Coeff of Tino 14.9 H (11.5-14.5) % Plt Count 237 (130-400) K/uL MPV 9.5 (9.4-12.4) fL Immature Gran % (Auto) 0.2 % Neut % (Auto) 56.9 % Lymph % (Auto) 30.1 % [place] % (Auto) 7.5 % Eos % (Auto) 4.3 % Baso % (Auto) 1.0 % Neut # (Auto) 3.41 (1.40-6.50) K/uL Lymph # (Auto) 1.80 (1.20-3.40) K/uL [place] # (Auto) 0.45 (0.11-0.59) K/uL Eos # (Auto) 0.26 (0.00-0.50) K/uL Baso # (Auto) 0.06 (0.00-0.20) K/uL Immature Gran # (Auto) 0.01 (0.01-0.20) K/uL Sodium 142 (136-145) mmol/L Potassium 4.3 (3.5-5.1) mmol/L Chloride 107 (98-107) mmol/L Carbon Dioxide 29 (21-32) mmol/L Anion Gap 6 (3-11) BUN 19 (6-23) mg/dl Creatinine 1.18 (0.6-1.2) mg/dl Est Cr Clr Drug Dosing 33.0 ml/min eGFR 47.57 BUN/Creatinine Ratio 16.1 (10-20) Glucose 195 H (70-99(Fasting)) mg/dl Calcium 9.1 (8.6-10.3) mg/dl Total Bilirubin 0.4 (0.2-1.0) mg/dl AST 35 (13-39) U/L ALT 42 (7-52) U/L Alkaline Phosphatase 73 (34-104) U/L Total Protein 6.6 (6.0-8.3) gm/dl Albumin 3.6 (3.4-5.0) gm/dl Globulin 3.0 (2.5-4.0) gm/dl Albumin/Globulin Ratio 1.2 (0.9-2) Lipase 26 (11-82) U/L Administered Medications Discontinued Medications Ioversol (Optiray 320 100ml) 94 ml IV ONCE ONE Stop: 10/20/24 11:12 Last Admin: 10/20/24 11:11 Dose: 94 ml Documented By: TOM Imaging Data Radiologist's Impression: Abdomen/Pelvis CT 10/20/24 10:[address] WITH IV CONTRAST CT DOSE: 868.44 mGy.cm HISTORY: Occasional has abdominal pain with diarrhea hx obstruction, diarrhea, pain TECHNIQUE: Multiaxial CT images of the abdomen and pelvis were performed following the IV administration of 90 cc of Optiray, A dose lowering technique was utilized adhering to the principles of ALARA. COMPARISON STUDY: 03/08/2024 FINDINGS: Coronary artery calcifications. Trace pericardial effusion. Clear lung bases. No pneumatosis or pneumoperitoneum. Unremarkable spleen, pancreas and adrenal glands. The gallbladder appears surgically absent. Unchanged dilation of the common bile duct measuring up to 1.0 cm, likely postsurgical. Unremarkable liver. Patency of the hepatic and portal veins. Mild cortical thinning of the kidneys. No hydronephrosis. Partially decompressed urinary bladder. Hysterectomy. Atherosclerosis of the aorta without aneurysm. No lymphadenopathy. No small bowel obstruction. Distal esophageal wall thickening with small hiatal hernia. There is extensive fecal retention of the rectum and sigmoid with circumferential rectal wall thickening, progressed from prior. Rectum is distended to approximately 9 cm transversely. Perirectal inflammation with trace pelvic ascites. The appendix is not visualized. Probable internal hemorrhoids with wall thickening of the anorectal junction. Degenerative changes of the spine, pelvis and hips. IMPRESSION: 1. No small bowel obstruction or pneumoperitoneum. 2. Constipation with stercoral proctitis redemonstrated, progressed from 03/08/2024. 3. Internal hemorrhoids with likely reactive wall thickening of the anorectal junction. An underlying mucosal lesion considered less likely. 4. Additional findings as above. ACT 112: Negative or not required by law. The above report was generated using voice recognition software. It may contain grammatical, syntax or spelling errors. Electronically signed by: Jordan Vee M.D. 10/20/2024 11:32 AM Discharge Plan Visit Data Chief Complaint: Abdominal Pain Stated Complaint: STOMACH PAIN ED Provider: Alen Hough Discharge Problem: Stercoral colitis, Acute constipation Forms Stand Alone Forms: My [employer] Prescriptions Prescriptions: No Action ergocalciferol (vitamin D2) [Vitamin D2] 1,250 mcg (50,000 unit) capsule 50,000 unit PO WK Qty: 12 1RF Rx Instructions: Wednesday isosorbide mononitrate 60 mg tablet extended release 24 hr 60 mg PO QAM Qty: 60 3RF Vit B-12 1000mcg Cyo Value 200+20 See Rx Instructions .ROUTE .COMPLEX Qty: 90 3RF Dose Instruction: TAKE 1 TABLET BY MOUTH ONCE DAILY IN THE MORNING Rx Instructions: TAKE 1 TABLET BY MOUTH ONCE DAILY IN THE MORNING folic acid 1 mg tablet 1 mg PO QAM Qty: 90 3RF mecobalamin (vitamin B12) 1,000 mcg tablet,chewable 1,000 mcg PO DAILY Qty: 90 3RF Rx Instructions: Caregiver states all prescription meds are correct, but unable to verify OTC meds at this time. buspirone 10 mg tablet 10 mg PO BID Qty: 180 3RF famotidine 20 mg tablet 20 mg PO BID Qty: 180 3RF magnesium oxide 400 mg (241.3 mg magnesium) tablet 400 mg PO DAILY Qty: 30 11RF gabapentin 100 mg capsule 100 mg PO TID Qty: 90 11RF ferrous sulfate 325 mg (65 mg iron) tablet 325 mg PO DAILY Qty: 30 11RF Rx Instructions: Please include in adherence packaging. Take at noon time (DME) Lift Chair Misc See Rx Instructions .Route Qty: 1 0RF Rx Instructions: As directed aspirin 81 mg tablet,delayed release (DR/EC) 81 mg PO QAM Rx Instructions: Caregiver states all prescription meds are correct, but unable to verify OTC meds at this time. Trelegy Ellipta 100-62.5-25 mcg blister with device 1 inh inhalation QAM Qty: 60 11RF Rx Instructions: rinse mouth thoroughly after each dose. duloxetine 60 mg capsule,delayed release(DR/EC) 60 mg PO QAM Qty: 90 3RF metformin 500 mg tablet extended release 24 hr 500 mg PO BID Qty: 180 3RF rosuvastatin 20 mg tablet 20 mg PO DAILY Qty: 90 3RF Rx Instructions: include in monthly pill packaging metoprolol succinate 50 mg tablet extended release 24 hr 50 mg PO QAM Qty: 90 3RF diclofenac sodium 1 % gel 4 g topical QID PRN (Reason: Pain) Qty: 100 2RF Rx Instructions: Caregiver states all prescription meds are correct, but unable to verify OTC meds at this time. apply to a single knee, shoulder, ankle, etc pantoprazole 40 mg tablet,delayed release (DR/EC) 40 mg PO BID insulin glargine [Basaglar KwikPen U-100 Insulin] 100 unit/mL (3 mL) insulin pen 4 - 12 unit SUBCUT BID Rx Instructions: Inject 12 units in the morning and 4 units in the evening Referrals Referrals: Shiela Contreras MD [Primary Care Provider] -
--- NOTE | 2024-10-20 11:34 | CT Scan Report ---
ABDOMEN AND PELVIS CT WITH IV CONTRAST CT DOSE: 868.44 mGy.cm HISTORY: Occasional has abdominal pain with diarrhea hx obstruction, diarrhea, pain TECHNIQUE: Multiaxial CT images of the abdomen and pelvis were performed following the IV administrat ion of 90 cc of Optiray, A dose lowering technique was utilized adhering to the principles of ALARA. COMPARISON STUDY: 03/08/2024 FINDINGS: Coronary artery calcifications. Trace pericardial effusion. Clear lung bases. No pneumatosi s or pneumoperitoneum. Unremarkable spleen, pancreas and adrenal glands. The gallbladder appears surg ically absent. Unchanged dilation of the common bile duct measuring up to 1.0 cm, likely postsurgical . Unremarkable liver. Patency of the hepatic and portal veins. Mild cortical thinning of the kidneys. No hydronephrosis. Partially decompressed urinary bladder. Hys terectomy. Atherosclerosis of the aorta without aneurysm. No lymphadenopathy. No small bowel obstruction. Distal esophageal wall thickening with small hiatal hernia. There is exte nsive fecal retention of the rectum and sigmoid with circumferential rectal wall thickening, progress ed from prior. Rectum is distended to approximately 9 cm transversely. Perirectal inflammation with t race pelvic ascites. The appendix is not visualized. Probable internal hemorrhoids with wall thickeni ng of the anorectal junction. Degenerative changes of the spine, pelvis and hips. IMPRESSION: 1. No small bowel obstruction or pneumoperitoneum. 2. Constipation with stercoral proctitis redemonstrated, progressed from 03/08/2024. 3. Internal hemorrhoids with likely reactive wall thickening of the anorectal junction. An underlying mucosal lesion considered less likely. 4. Additional findings as above. ACT 112: Negative or not required by law. The above report was generated using voice recognition software. It may contain grammatical, syntax o r spelling errors. Electronically signed by: Jordan Vee M.D. 10/20/2024 11:32 AM
--- NOTE | 2024-10-20 15:45 | History & Physical Report ---
Date of Service October 20, 2024 Assessment & Plan (1) Stercoral colitis: (2) Chronic constipation with overflow: (3) Type 2 diabetes mellitus with chronic kidney disease: (4) Stenosis of anal canal: Plan 79-year-old female presents to the ER with abdominal pain and diarrhea #Stercoral colitis /chronic constipation with overflow / anal stenosis Stop Pepto-Bismol Failed manual disimpaction and soapsuds enema in the emergency room Start GoLytely 2000 ml #Anemia Ferritin, iron studies, B12, folate with AM labs #Hypomagnesemia Mg level in AM #T2DM Hemoglobin A1c 8.4 in September, no need to repeat Continue her usual Lantus dosing with 12 units in the morning and 4 units at night NovoLog: --Goal BSG Range: Low 110 mg/dL, High 140 mg/dL --Correction Factor: 45 mg/dL/unit --Carbohydrate ratio = 15 g/unit --BSGs ACHS if eating, q6h if npo #Cervical degenerative disc disease with radiculopathy Continue gabapentin and Cymbalta #CAD Continue aspirin, Metoprolol, ISMN, rosuvastatin #GERD Continue pantoprazole and famotidine VTE prophylaxis - Lovenox 40 mg subcu daily Diet - type 2 diabetes mellitus Disposition - observation to [facility] Admission and Anticipated Discharge Date Admission Date: October 20, 2024 History of Present Illness Chief Complaint: Abdominal pain Diarrhea Primary Care Provider: Shiela Contreras MD Claire Rosas is a 79-year-old female who presents to the ER with abdominal pain and diarrhea. This has been ongoing for the last 2 months but much worse over the last week. She was diagnosed with constipation in March 2024 in the ER given milk of magnesia which helped relieve her symptoms at that time but no change to medications on discharge. She was followed up by gastroenterology in August with a plan for outpatient colonoscopy. She had a prior colonoscopy done in 2021 with poor prep and anal canal stenosis. She is taking Pepto-Bismol for diarrhea. She is not taking any laxatives. Allergies Allergy/AdvReac Type Severity Reaction Status Date / Time cephalexin Allergy Intermediate Rash and Verified 10/20/24 12:53 itchiness Cephalosporins Allergy Intermediate Rash and Verified 10/20/24 12:53 itchiness Sulfa (Sulfonamide Allergy Intermediate Hives Verified 10/20/24 12:53 Antibiotics) Home Medications Medication Instructions Recorded Confirmed Type diclofenac sodium 1 % topical gel 4 g topical QID PRN Pain #100 grams 07/09/23 10/20/24 Rx Lift Chair #1 ea 09/06/23 10/05/24 Rx aspirin 81 mg tablet,delayed 81 mg PO QAM 11/18/23 10/20/24 History release ergocalciferol (vitamin D2) 1,250 50,000 unit PO WK #12 caps 05/17/24 10/20/24 Rx mcg (50,000 unit) capsule (Vitamin D2) isosorbide mononitrate 60 mg 60 mg PO QAM #60 tabs 06/13/24 10/20/24 Rx tablet,extended release 24 hr Vit B-12 1000mcg Cyo Value 200+20 See Rx Instructions .Route 08/04/24 10/20/24 Rx .COMPLEX #90 ea folic acid 1 mg tablet 1 mg PO QAM #90 tabs 08/10/24 10/20/24 Rx mecobalamin (vitamin B12) 1,000 1,000 mcg PO DAILY #90 tabs 08/10/24 10/20/24 Rx mcg chewable tablet buspirone 10 mg tablet 10 mg PO BID #180 tabs 09/07/24 10/20/24 Rx famotidine 20 mg tablet 20 mg PO BID #180 tabs 09/12/24 10/20/24 Rx magnesium oxide 400 mg (241.3 mg 400 mg PO DAILY #30 tabs 09/27/24 10/20/24 Rx magnesium) tablet gabapentin 100 mg capsule 100 mg PO TID #90 caps 09/28/24 10/20/24 Rx duloxetine 60 mg capsule,delayed 60 mg PO QAM #90 caps 10/05/24 10/20/24 Rx release fluticasone fur. 100 mcg-umeclid 1 inh inhalation QAM #60 ea 10/05/24 10/20/24 Rx 62.5 mcg-vilant 25 mcg inhalat.powder (Trelegy Ellipta) metformin 500 mg tablet,extended 500 mg PO BID #180 tabs 10/05/24 10/20/24 Rx release 24 hr metoprolol succinate 50 mg 50 mg PO QAM #90 tabs 10/05/24 10/20/24 Rx tablet,extended release 24 hr rosuvastatin 20 mg tablet 20 mg PO DAILY #90 tabs 10/05/24 10/20/24 Rx ferrous sulfate 325 mg (65 mg 325 mg PO DAILY #30 tabs 10/06/24 10/20/24 Rx iron) tablet insulin glargine 100 unit/mL (3 4 - 12 unit subcut BID 10/20/24 10/20/24 History mL) subcutaneous pen (Basaglar KwikPen U-100 Insulin) pantoprazole 40 mg tablet,delayed 40 mg PO BID 10/20/24 10/20/24 History release Past Med/Surg History Problem List (Updated 10/21/24 @ 01:40 by Roger Archer MD) Stenosis of anal canal Acute constipation (Acute) Stercoral colitis (Acute) Stercoral colitis Dementia Chronic constipation with overflow Diarrhea (Acute) Dysphagia History of Mckeon's esophagus Background diabetic retinopathy associated with type 2 diabetes mellitus Weight loss Hypomagnesemia (Acute) Dyspnea on exertion Ataxia Cervical spinal stenosis Degenerative disc disease, cervical (Acute) Hypertension (Acute) Cervical radiculopathy (Acute) Type 2 diabetes mellitus with chronic kidney disease Vitamin D deficiency CKD (chronic kidney disease), stage III (Acute) Reactive airway disease Folic acid deficiency Vitamin B12 deficiency (Chronic) Anemia Arthritis of knee, left Left knee DJD (Chronic) Dyslipidemia Chronic pain syndrome Cognitive dysfunction (Acute) Depression Lumbar spondylosis Uncontrolled type 2 diabetes mellitus with neurologic complication, with long- term current use of insulin GERD (gastroesophageal reflux disease) Mckeon esophagus CAD (coronary artery disease) (Chronic) s/p stents to RCA November 2005; s/p stents to LAD, LCx in January 2006; s/p stents to RCA in 08/2006 IBS (irritable bowel syndrome) Anxiety Medical History (Updated 10/21/24 @ 01:40 by Roger Archer MD) Anal stricture Diabetic gastroparesis pt unaware Anxiety IBS (irritable bowel syndrome) CAD (coronary artery disease) s/p stents to RCA November 2005; s/p stents to LAD, LCx in January 2006; s/p stents to RCA in 08/2006 Mckeon esophagus History of anemia Reactive airway disease well controlled w/ daily inhaler HTN (hypertension) Cervical spinal stenosis Esophageal ulcer without bleeding hx Hiatal hernia Hemorrhoids Esophageal spasm hx- pt not aware Edema mild, right LE History of COVID-19 2020 - resolved Acute non-ST elevation myocardial infarction (NSTEMI) 11/28/2021 had [place] medical management and follow with dr abdullahi apt 02/09/2022 GERD without esophagitis Myocardial Infarction [place]- November 2005, January 2006, Aug 2006 3 total within an 8 month span--HX OF CATH 2012 [facility] [place], FOLLOWS WITH DR. ABDULLAHI Surgical History Status post trigger finger release right thumb S/P coronary artery stent placement s/p stents to RCA November 2005; s/p stents to LAD, LCx in January 2006; s/p stents to RCA in 08/2006 History of total hysterectomy with bilateral salpingo-oophorectomy (BSO) History of lumbar spinal fusion History of total right knee replacement (TKR) History of esophageal dilatation History of colonoscopy with polypectomy History of esophagogastroduodenoscopy (EGD) History of tooth extraction all teeth History of cholecystectomy History of cataract surgery BL History of cardiac cath last 2012 @ [facility] [place], no stents--s/p stents to RCA November 2005; s/p stents to LAD, LCx in January 2006; s/p stents to RCA in 08/2006 Family History Brother Myocardial infarction Anxiety Heart disease Hypertension Cancer Sister Family history of reaction to anesthesia difficulty waking Hypertension Heart disease Myocardial infarction Anxiety Cancer Diabetes Father Anxiety Heart disease Hypertension Mother Anxiety Hypertension Heart disease Unknown Cancer skin, GI Denies family history of Ovarian cancer Prostate cancer Breast cancer Colorectal cancer Stroke Social History Smoking Status: Never smoker Tobacco Type: Cigarettes Age Started Using Tobacco: 18; Age Quit Using Tobacco: 57; packs per day: 0.5; Second Hand Exposure: No; Do You Dip or Chew Tobacco: No; Tobacco Cessation Education Requested by Patient: No Hx Alcohol Use: No Hx Substance Use: No Preferred Language: Estonian Communication Ability: Effective Visual Impairment: Limited Hearing Ability: Normal Occupational Health And Safety Manager Required: No Beliefs That Will Affect Care: None marital status: / Current Living Situation: Alone current occupational status: retired and disabled How many Children do You have: 3 Other Information That Helps Us Care for You: No Feels Safe at Home: Yes Childhood Exposure to Second-Hand Smoke: No Diet: regular caffeine: Yes (drinks coffee, diet pepsi occasionally ) during the past year weight has: remained stable Dental Care, Regularly: No Physical Activity Frequency: Does not Exercise Seatbelt Use: always Sunscreen Use: No Assistive Devices: Walker Review of Systems Review of Systems: All systems reviewed & are unremarkable except as noted in HPI & below Physical Exam Constitutional: WD/WN, vitals as above Respiratory: normal respiratory effort, lungs clear to auscultation Cardiovascular: RRR, no murmur, no edema Gastrointestinal (Abdomen): Inspection/Auscultation: abdomen normal to inspection; abdomen not distended Percussion/Palpation: + abdomen tender (lower abdomen) and abdomen soft; no guarding and abdomen not rigid Results & Data Results & Data Vital Signs (Past 12 Hours) Vital Signs Temp Pulse Pulse Resp BP BP Pulse Ox 10/20/24 14:51 72 18 182/104 H 97 10/20/24 11:42 68 16 174/94 H 98 10/20/24 09:48 37.0 C 81 20 148/79 H 99 O2 Del Method 10/20/24 14:51 Room Air 10/20/24 11:42 Room Air 10/20/24 09:48 Room Air Laboratory Results Abnormal lab results 10/20/24 Range/Units 10:27 RBC 3.55 L (4.20-5.40) M/uL Hgb 9.6 L (12.0-16.0) g/dl Hct 29.4 L (37.0-47.0) % RDW Coeff of Tino 14.9 H (11.5-14.5) % Glucose 195 H (70-99(Fasting)) mg/dl Diagnostic Findings ABDOMEN AND PELVIS CT WITH IV CONTRAST CT DOSE: 868.44 mGy.cm HISTORY: Occasional has abdominal pain with diarrhea hx obstruction, diarrhea, pain TECHNIQUE: Multiaxial CT images of the abdomen and pelvis were performed following the IV administration of 90 cc of Optiray, A dose lowering technique was utilized adhering to the principles of ALARA. COMPARISON STUDY: 03/08/2024 FINDINGS: Coronary artery calcifications. Trace pericardial effusion. Clear lung bases. No pneumatosis or pneumoperitoneum. Unremarkable spleen, pancreas and adrenal glands. The gallbladder appears surgically absent. Unchanged dilation of the common bile duct measuring up to 1.0 cm, likely postsurgical. Unremarkable liver. Patency of the hepatic and portal veins. Mild cortical thinning of the kidneys. No hydronephrosis. Partially decompressed urinary bladder. Hysterectomy. Atherosclerosis of the aorta without aneurysm. No lymphadenopathy. No small bowel obstruction. Distal esophageal wall thickening with small hiatal hernia. There is extensive fecal retention of the rectum and sigmoid with circumferential rectal wall thickening, progressed from prior. Rectum is distended to approximately 9 cm transversely. Perirectal inflammation with trace pelvic ascites. The appendix is not visualized. Probable internal hemorrhoids with wall thickening of the anorectal junction. Degenerative changes of the spine, pelvis and hips. IMPRESSION: 1. No small bowel obstruction or pneumoperitoneum. 2. Constipation with stercoral proctitis redemonstrated, progressed from 03/08/2024. 3. Internal hemorrhoids with likely reactive wall thickening of the anorectal junction. An underlying mucosal lesion considered less likely. 4. Additional findings as above. Medications Administered ER medications given: Soapsuds enema Code Status & VTE Plan Code Status DNR/DNI VTE Prophylaxis Plan VTE Prophylaxis will be ordered: Yes PG Care Time/CCT Total # of Minutes Spent Total Time Spent with Patient: Total time spent is greater than 50% in coordination of care (as documented) at patient's floor/unit and/or counseling patient: Coding Level of Care Code 37828 INT INP/OBS CARE 75MIN Diagnoses Stercoral colitis K52.89 Chronic constipation with overflow K59.09 Type 2 diabetes mellitus with chronic kidney disease E11.22 Stenosis of anal canal K62.4
[2024-10-20] MEDS: LAVAGE SOLUTION 4000ML PO ONE (17:09)
[2024-10-20] MEDS ORDERED: GLUCOSE 40% GEL 15 GM TUBE PO PRN (18:34)
[2024-10-20] MEDS ORDERED: CARBOHYDRATES FOR HYPOGLYCEMIA PO PRN (18:34)
[2024-10-20] MEDS ORDERED: DEXTROSE 50% 50 ML SYRINGE IV PRN (18:34)
[2024-10-20] MEDS ORDERED: DICLOFENAC SOD 1% GEL 100 GM TUBE EXT PRN (18:34)
[2024-10-20] MEDS ORDERED: GLUCAGON FOR INJ 1 MG VIAL SQ PRN (18:34)
[2024-10-20] MEDS ORDERED: GLUCOSE 10 TAB/TUBE PO PRN (18:34)
[2024-10-20] MEDS ORDERED: ACETAMINOPHEN 325 MG TAB PO PRN (18:34)
[2024-10-20] MEDS ORDERED: ONDANSETRON INJ 2 MG/ML 2 ML VIAL IV PRN (18:34)
[2024-10-20] MEDS: INSULIN ASPART PER UNIT CHARGE SC SCH (21:53)
[2024-10-20] MEDS: GABAPENTIN 100 MG CAP PO SCH (21:54)
[2024-10-20] MEDS: LANTUS PER UNIT CHARGE SQ SCH (21:54)
[2024-10-20] MEDS: busPIRone 5 MG TAB PO SCH (21:54)
[2024-10-20] MEDS: metFORMIN HCL ER 500 MG TABCR PO SCH (21:54)
[2024-10-20] MEDS: FAMOTIDINE 20 MG TAB PO SCH (21:55)
[2024-10-20] MEDS: PANTOprazole 40 MG TAB PO SCH (21:55)
[2024-10-21 07:37] LABS: Hematocrit (blood only) 31.8 % (37.0-47.0); Hemoglobin 10.5 g/dl (12.0-16.0); Mean Corpuscular Hemoglobin 26.9 pg (25.0-34.0); Mean Corpuscular Volume 81.5 fL (80.0-100.0); Platelet Count 192 K/uL (130-400); RDW Coefficient of Variation 15.1 % (11.5-14.5); RDW Standard Deviation 44.7 fL (36.4-46.3); White Blood Count 8.64 K/ul (4.8-10.8)
[2024-10-21 07:46] LABS: BUN Creatinine Ratio 14.6 (10-20); Calcium 9.3 mg/dl (8.6-10.3); Creatinine Clr Calc Pharmacy 40.6 ml/min; Ferritin 41.5 ng/ml (8-388); Magnesium 1.3 mg/dl (1.7-2.4); Potassium 3.4 mmol/L (3.5-5.1)
[2024-10-21 07:58] LABS: Folate (Folic Acid),Ser orPlas > 22.30 ng/ml (>5.38)
[2024-10-21 07:59] LABS: Vitamin B12 > 1500 pg/ml (180-914)
[2024-10-21] MEDS: ROSUVASTATIN CALCIUM 20 MG TAB PO SCH (08:06)
[2024-10-21] MEDS: ASPIRIN 81 MG ECTAB PO SCH (08:06)
[2024-10-21] MEDS: ISOSORBIDE MONO EXTENDED REL 60 MG TABCR PO SCH (08:06)
[2024-10-21] MEDS: ENOXAPARIN INJ 40 MG/0.4 ML SYR SQ SCH (08:06)
[2024-10-21] MEDS: DULoxetine HCL 60 MG CAP PO SCH (08:07)
[2024-10-21] MEDS: MAGNESIUM OXIDE 400 MG TAB PO SCH (08:07)
[2024-10-21] MEDS: FOLIC ACID 1 MG TAB PO SCH (08:07)
[2024-10-21] MEDS: METOPROLOL SUCC 50MG EXT REL TAB PO SCH (08:07)
[2024-10-21] MEDS: FLUTICASONE FUROATE 100MCG 14 PUFFS/INHALER INH SCH (08:08)
[2024-10-21] MEDS: UMECLIDINIUM/VILANTEROL 62.5/25MCG 7 PUFFS/INHALER INH SCH (08:08)
[2024-10-21 08:13] LABS: Basophils # (auto) 0.07 K/uL (0.00-0.20); Basophils % (auto) 0.8 %; Eosinophils # (auto) 0.22 K/uL (0.00-0.50); Eosinophils % (auto) 2.5 %; Immature Granulocytes # (auto) 0.04 K/uL (0.01-0.20); Immature Granulocytes % (auto) 0.5 %; Lymphocytes # (auto) 2.62 K/uL (1.20-3.40); Lymphocytes % (auto) 30.3 %; Monocytes # (auto) 0.83 K/uL (0.11-0.59); Monocytes % (auto) 9.6 %; Neutrophils # (auto) 4.86 K/uL (1.40-6.50); Neutrophils % (auto) 56.3 %
[2024-10-21] MEDS: LANTUS PER UNIT CHARGE SQ SCH (08:32)
[2024-10-21] MEDS: POTASSIUM CHLORIDE CRTAB 20 MEQ TABCR PO STA (08:38)
[2024-10-21] MEDS: MAGNESIUM SULFATE / D5W 1 GM/100 ML BAG IV SCH (08:40)
[2024-10-21] MEDS ORDERED: NON-FORMULARY MEDICATION (Fluticasone-Umeclidin-Vilanter [Trelegy Ellipta] 100-62.5-25 mcg INH SCH (09:00)
--- NOTE | 2024-10-21 15:10 | Hospitalist Progress Note ---
Date of Service October 21, 2024 Assessment & Plan (1) Stercoral colitis: (2) Chronic constipation with overflow: (3) Type 2 diabetes mellitus with chronic kidney disease: (4) Stenosis of anal canal: Plan 79-year-old female presents to the ER with abdominal pain and diarrhea #Stercoral colitis /chronic constipation with overflow / anal stenosis CTAP: no SBO or pneumoperitoneum. Constipation w/ stercoral proctitis re- demonstrated & progressed from 02/2024. Internal hemorrhoids w/ likely reactive wall thickening of anorectal junction. underlying mucosal lesion considered less likely. s/p 2000ml Golyteyl. Stop at 1600 10/21. Patient w/ multiple incontinence episodes. Recommend she remain inpatient until this subsides as she lives alone and there is concern of her being able to take care of herself while she is having multiple incontinent BM's from laxatives. Upon discharge patient should start a daily bowel regimen w/ fiber and Miralax -> plan to discuss with her family this afternoon Follow up w/ GI for a CN outpatient. #Anemia CBC w/ hgb of 10.5 Low iron/transferrin saturation. -> concern of starting PO iron due to her constipation. Defer to PCP regarding iron infusions. B12/Folate stable. AM CBC #Hypomagnesemia/hypokalemia 2nd to laxative Mag 1.3 s/p repletion K 3.4 s/p repletion BMP/Mg level in AM #T2DM Hemoglobin A1c 8.4 in September, no need to repeat Continue her usual Lantus dosing with 12 units in the morning and 4 units at night NovoLog: --Goal BSG Range: Low 110 mg/dL, High 140 mg/dL --Correction Factor: 45 mg/dL/unit --Carbohydrate ratio = 15 g/unit --BSGs ACHS if eating, q6h if npo Chronic conditions: Cervical degenerative disc disease w/ radiculopathy: continue gabapentin & cymbalta CAD: ASA, metoprolol, ISMN, rosuvastatin GERD: PPI/Pepcid VTE prophylaxis - Lovenox 40 mg subcu daily Disposition - observation to [facility] Anticipate discharge home 10/22. Admission and Anticipated Discharge Date Admission Date: October 20, 2024 Subjective Patient seen and examined this morning. patient reports she is tolerating the GoLytelyl well. She reports she has had several BM's and has been incontinent of stool. Reports she was having stool incontinence at home as well. reports she lives alone. She denies any abdominal pain, nausea, vomiting. She had drank about ~1/2 of the GoLyteyl at time of my encounter. Physical Exam Constitutional: WD/WN, vitals as above Eyes: PERRL, conjunctivae normal, anicteric sclerae Respiratory: breathing unlabored Cardiovascular: well perfused Gastrointestinal (Abdomen): normal bowel sounds, soft, nontender, no hepatosplenomegaly Psychiatric: A+Ox3, euthymic affect Results & Data Results & Data Vital Signs (Past 12 Hours) Vital Signs Temp Pulse Resp BP Pulse Ox O2 Del Method 10/21/24 07:23 36.9 C 77 16 164/83 H 98 Room Air PG Care Time/CCT Total # of Minutes Spent Total Time Spent with Patient: Total time spent is greater than 50% in coordination of care (as documented) at patient's floor/unit and/or counseling patient: Coding Level of Care Code 31724 SUB INP/OBS CARE 2/35MIN Diagnoses Stercoral colitis K52.89 Chronic constipation with overflow K59.09 Type 2 diabetes mellitus with chronic kidney disease E11.22 Stenosis of anal canal K62.4
[2024-10-22 06:24] LABS: Hematocrit (blood only) 26.5 % (37.0-47.0); Hemoglobin 8.4 g/dl (12.0-16.0); Mean Corpuscular Hemoglobin 26.2 pg (25.0-34.0); Mean Corpuscular Hgb Conc 31.7 g/dL (32.0-36.0); Mean Corpuscular Volume 82.6 fL (80.0-100.0); Mean Platelet Volume 9.8 fL (9.4-12.4); Platelet Count 209 K/uL (130-400); RDW Coefficient of Variation 15.4 % (11.5-14.5); RDW Standard Deviation 46.9 fL (36.4-46.3); Red Blood Count 3.21 M/uL (4.20-5.40); White Blood Count 6.99 K/ul (4.8-10.8)
[2024-10-22 06:52] LABS: BUN Creatinine Ratio 17.3 (10-20); Calcium 8.7 mg/dl (8.6-10.3); Creatinine Clr Calc Pharmacy 30.7 ml/min; Magnesium 1.7 mg/dl (1.7-2.4); Potassium 4.3 mmol/L (3.5-5.1)
[2024-10-22] MEDS: LACTATED RINGER'S 1,000 ML IV SCH (09:12)
[2024-10-22 11:35] LABS: Hematocrit (blood only) 25.6 % (37.0-47.0); Hemoglobin 8.3 g/dl (12.0-16.0)
--- NOTE | 2024-10-22 12:04 | Discharge Summary ---
Discharge Summary Date of Service October 22, 2024 Principal Dx & Hospital Course #1 = Principal Diagnosis (1) Stercoral colitis: (2) Chronic constipation with overflow: (3) Type 2 diabetes mellitus with chronic kidney disease: (4) Stenosis of anal canal: Plan 79-year-old female presents to the ER with abdominal pain and diarrhea #Stercoral colitis /chronic constipation with overflow / anal stenosis CTAP: no SBO or pneumoperitoneum. Constipation w/ stercoral proctitis re- demonstrated & progressed from 02/2024. Internal hemorrhoids w/ likely reactive wall thickening of anorectal junction. underlying mucosal lesion considered less likely. s/p 2000ml Golyteyl. Upon discharge patient should start a daily bowel regimen w/ fiber and Miralax Follow up w/ GI for a CN outpatient. -> scheduled for end november per patient. #Anemia CBC w/ hgb of 8.4, 8.3 on repeat. No overt signs of GI bleeding, asymptomatic. Low iron/transferrin saturation. ->consider iron infusion outpatient. B12/Folate stable. Repeat CBC 03/27, follow up w/ PCP closely. #Hypomagnesemia/hypokalemia 2nd to laxative, Resolved Creatinine slight bump to 1.26, secondary to diarrhea. s/p 500cc repletion prior to discharge. #T2DM Hemoglobin A1c 8.4 in September, no need to repeat Resume outpatient Chronic conditions: Cervical degenerative disc disease w/ radiculopathy: continue gabapentin & cymbalta CAD: ASA, metoprolol, ISMN, rosuvastatin GERD: PPI/Pepcid Patient discharged home 10/22 Admission HPI Per Admitting Provider Claire Rosas is a 79-year-old female who presents to the ER with abdominal pain and diarrhea. This has been ongoing for the last 2 months but much worse over the last week. She was diagnosed with constipation in March 2024 in the ER given milk of magnesia which helped relieve her symptoms at that time but no change to medications on discharge. She was followed up by gastroenterology in August with a plan for outpatient colonoscopy. She had a prior colonoscopy done in 2021 with poor prep and anal canal stenosis. She is taking Pepto-Bismol for diarrhea. She is not taking any laxatives. Discharge Exam Constitutional WD/WN, vitals as above Eyes PERRL, conjunctivae normal, anicteric sclerae Respiratory breathing unlabored Cardiovascular well perfused Gastrointestinal (Abdomen) normal bowel sounds, soft, nontender, no hepatosplenomegaly Discharge Plan Discharge Items Patient Disposition: Home - Self-Care Reason For Visit: STERCORAL COLITIS Discharge Diagnosis: Stercoral Colitis Activity: Resume your previous activity Non-emergency contact: Primary Care Provider Call non-emergency contact if: you have any medication questions and your symptoms worsen Follow-up/Referrals: Christian Gracia DO [Physician] - Shiela Contreras MD [Primary Care Provider] - Diet: Carb Consistent or DM2 Ambulatory Orders: Complete Blood Count no Diff (Timed) Timeframe: 20241025 Location: Determined by Patient Ordered By: Nakita Rhodes Attending Provider Instructions: Ms. Rosas, You were recently hospitalized for abdominal pain and diarrhea. You were given laxatives and had a lot of bowel movements which resolved your abdominal pain. Please see recommendations below regarding your discharge. Please start taking a capful of Miralax and a fiber supplement daily starting on 10/24. Please get lab work on 10/25 to ensure your blood counts are stable. Please follow up closely with your PCP, ideally within 1 week to discuss your labs and symptoms. You may require an iron infusion which can be set up through your PCP. Please follow up with GI for your colonoscopy. You may resume the remainder of your medications upon discharge. If you develop any worsening abdominal pain, blood in stool, fever, chills, chest pain, shortness of breath please report back to the ER for further care. Sincerely, Nakita Dewey PA-C Pending Studies at Discharge: No Stand-Alone Forms: My [facility] [place], Smoking Cessation Medications and DC Order Prescriptions: Continued ergocalciferol (vitamin D2) [Vitamin D2] 1,250 mcg (50,000 unit) capsule 50,000 unit PO WK Qty: 12 1RF Rx Instructions: Wednesday isosorbide mononitrate 60 mg tablet extended release 24 hr 60 mg PO QAM Qty: 60 3RF Vit B-12 1000mcg [place] Value 200+20 See Rx Instructions .ROUTE .COMPLEX Qty: 90 3RF Dose Instruction: TAKE 1 TABLET BY MOUTH ONCE DAILY IN THE MORNING Rx Instructions: TAKE 1 TABLET BY MOUTH ONCE DAILY IN THE MORNING folic acid 1 mg tablet 1 mg PO QAM Qty: 90 3RF mecobalamin (vitamin B12) 1,000 mcg tablet,chewable 1,000 mcg PO DAILY Qty: 90 3RF Rx Instructions: Caregiver states all prescription meds are correct, but unable to verify OTC meds at this time. buspirone 10 mg tablet 10 mg PO BID Qty: 180 3RF famotidine 20 mg tablet 20 mg PO BID Qty: 180 3RF magnesium oxide 400 mg (241.3 mg magnesium) tablet 400 mg PO DAILY Qty: 30 11RF gabapentin 100 mg capsule 100 mg PO TID Qty: 90 11RF ferrous sulfate 325 mg (65 mg iron) tablet 325 mg PO DAILY Qty: 30 11RF Rx Instructions: Please include in adherence packaging. Take at noon time aspirin 81 mg tablet,delayed release (DR/EC) 81 mg PO QAM Rx Instructions: Caregiver states all prescription meds are correct, but unable to verify OTC meds at this time. Trelegy Ellipta 100-62.5-25 mcg blister with device 1 inh inhalation QAM Qty: 60 11RF Rx Instructions: rinse mouth thoroughly after each dose. duloxetine 60 mg capsule,delayed release(DR/EC) 60 mg PO QAM Qty: 90 3RF metformin 500 mg tablet extended release 24 hr 500 mg PO BID Qty: 180 3RF rosuvastatin 20 mg tablet 20 mg PO DAILY Qty: 90 3RF Rx Instructions: include in monthly pill packaging metoprolol succinate 50 mg tablet extended release 24 hr 50 mg PO QAM Qty: 90 3RF diclofenac sodium 1 % gel 4 g topical QID PRN (Reason: Pain) Qty: 100 2RF Rx Instructions: Caregiver states all prescription meds are correct, but unable to verify OTC meds at this time. apply to a single knee, shoulder, ankle, etc pantoprazole 40 mg tablet,delayed release (DR/EC) 40 mg PO BID insulin glargine [Basaglar KwikPen U-100 Insulin] 100 unit/mL (3 mL) insulin pen 4 - 12 unit SUBCUT BID Rx Instructions: Inject 12 units in the morning and 4 units in the evening No Action (DME) Lift Chair Misc See Rx Instructions .Route Qty: 1 0RF Rx Instructions: As directed Discharge Orders: Discharge Order (Routine); Ordered 10/22/24 Ordered By: Nakita Dewey Admission Data Admit Date/Time: 10/20/24 15:42 Attending Provider: Senthli Saenz Admit Provider: Roger Archer Primary Care Provider: Shiela Contreras Other Interventions: Discharge Summary Assessment (RN) Last Done: 10/22/24 12:41 Hospital Stay Data Diagnostic Imagining Performed 10/20/24 10:06 CT abd pelvis IV con only Stat Pending Results Patient Have Any Pending Studies at Discharge: No Discharge Instructions Given to Patient (Per Discharging Provider) Ms. Rosas, You were recently hospitalized for abdominal pain and diarrhea. You were given laxatives and had a lot of bowel movements which resolved your abdominal pain. Please see recommendations below regarding your discharge. Please start taking a capful of Miralax and a fiber supplement daily starting on 10/24. Please get lab work on 10/25 to ensure your blood counts are stable. Please follow up closely with your PCP, ideally within 1 week to discuss your labs and symptoms. You may require an iron infusion which can be set up through your PCP. Please follow up with GI for your colonoscopy. You may resume the remainder of your medications upon discharge. If you develop any worsening abdominal pain, blood in stool, fever, chills, chest pain, shortness of breath please report back to the ER for further care. Sincerely, Nakita Dewey PA-C Total Time Total Time Spent Total Time Spent (In Minutes): 50 Total Time Includes: Examination of the Patient, Discharge Planning and Medication Reconciliation Coding Level of Care Code 06732 INP/OBS DISCH >30 MIN Diagnoses Stercoral colitis K52.89 Chronic constipation with overflow K59.09 Type 2 diabetes mellitus with chronic kidney disease E11.22 Stenosis of anal canal K62.4
[2024-10-22 15:41] VITALS: BP 97/58; PULSE 83; RESP 18; TEMP 98.2; O2SAT 98
== END 2024-10-22 16:27 | disposition home or self-care (01) ==
LOC: 3N 09:43 → ED 09:43 → SUATTDRO 15:42 → 3N 18:24

== ENCOUNTER 2025-01-31 17:36 | Observation (INO) ==
--- NOTE | 2025-01-31 17:54 | Emergency Department Note ---
Impression & Plan Acute hyperglycemia, Confusion, Acute dehydration, Acute UTI ED Provider Note NAME: SHIRA CUNNINGHAM AGE: 79 SEX: F : 1945 ARRIVES VIA: Walk-In INFORMANT: Patient, daughter ED PROVIDER(S): Bhupinder Stanley MD CHIEF COMPLAINT: Outpatient referral, hyperglycemia MEDICAL DECISION MAKING: Patient presents with weakness fatigue and elevated blood sugar. IV was established and blood work was obtained. Patient was given IV fluids. Chest x- ray obtained along with urinalysis. The patient has had some confusion but other than not able to name the date patient is not confused at bedside and does not have any focal neurologic deficits. No recent falls or head strike and patient does not take blood thinners do not believe the patient require CT head at this time. Patient's chest x-ray is unremarkable. Blood work shows a normal white count hemoglobin of 11 which is chronic and stable. Platelet count is unremarkable. Kidney function with a creat of 1.44 which is around the patient's baseline. BSG of 425. 7130 slight pseudohyponatremia TSH is elevated 8.9. Patient's urinalysis does show positive for infection. History of cephalosporin allergy but sensitive to Augmentin. I did speak the on-call hospitalist after discussing with the patient who does not feel comfortable going home and also has associated confusion likely secondary to UTI with hyperglycemia. I did speak with Dr. Saavedra and the patient was admitted to the medicine service. Discussion w/ other healthcare providers: Dr. Gaines inpatient medicine service Prior /Outside records reviewed: I reviewed the patient's last urine culture from December 06 which showed that it was E. coli that is sensitive to Rocephin. Differential diagnosis: Infection, dehydration, metabolic abnormality, hypo/hyperglycemia, electrolyte imbalance, anemia, UTI, pneumonia, thyroid dysfunction among others were considered. Diagnostics, as interpreted by me: ECG: Normal sinus rhythm, rate of 78, normal intervals, normal axis no ST elevations. Cardiac monitoring: An order was placed for continuous cardiac monitoring. The monitor shows a rate of 78 with sinus rhythm. Patient was placed on pulse oximetry Medical decision rules: None Imaging studies: I informally interpreted the patient's chest x-ray does not show obvious pneumonia or pneumothorax with formal report to follow. HPI: Patient presents from home due to concern for worsening confusion and elevated blood sugar. Patient has had some increasing fatigue. Patient's blood sugar last evening was in the 300s today had checked it and it was too high. There has been discussion about getting some in-home care as she does not feel entirely safe at home and does have concerns about care. Patient's daughter does check on her in the evenings. Patient reports that she does take insulin. She also reports that she seems to have some increasing confusion. The patient is already had some memory issues but seem to be worse in the last several weeks. No reported falls or head trauma. The patient has had confusion with regard to misplacing items or forgetting certain details with short-term. Reportedly does have a proclivity for UTIs. Patient reports that she does have an issue with her bowels to where she does wear diapers. PAST MEDICAL HISTORY: See Below PAST SURGICAL HISTORY: See Below SOCIAL HISTORY: See Below HOME MEDICATIONS: See Below ALLERGIES: See Below VITALS: See Below PHYSICAL EXAMINATION: GENERAL: NAD, non-toxic. Wearing glasses. EYE EXAM: Normal conjunctiva. PERRL, no anisocoria and EOM's grossly intact w/o pain. OROPHARYNX: Dry mucus membranes, grossly normal dentition. NECK: Trachea midline, no stridor. LUNGS: Clear to auscultation. Normal chest wall mechanics. HEART: NSR, no MRG. ABDOMEN: Abdomen soft, non-tender, no masses, no rebound or guarding. BACK: No CVA TTP. SKIN: No rashes and no bruising. UPPER EXTREMITIES: Upper extremities are grossly normal. LOWER EXTREMITIES: Grossly normal, no edema. NEURO EXAM: Awake and alert, follows commands, no obvious facial asymmetry, normal speech, moves all 4 extremities. No sensory deficits, good [id number]. Past Med/Surg History Problem List (Updated 02/02/25 @ 06:40 by Bhupinder Stanley MD) Acute UTI (Acute) UTI (urinary tract infection) (Acute) Diabetes mellitus with hyperglycemia Acute metabolic encephalopathy (Acute) Acute dehydration (Acute) Confusion (Acute) Acute hyperglycemia (Acute) Urinary incontinence Stenosis of anal canal Acute constipation (Acute) Stercoral colitis (Acute) Stercoral colitis Dementia Chronic constipation with overflow Diarrhea (Acute) Dysphagia History of Mckeon's esophagus Background diabetic retinopathy associated with type 2 diabetes mellitus Weight loss Hypomagnesemia (Acute) Dyspnea on exertion Ataxia Cervical spinal stenosis Degenerative disc disease, cervical (Acute) Hypertension (Acute) Cervical radiculopathy (Acute) Type 2 diabetes mellitus with chronic kidney disease Vitamin D deficiency CKD (chronic kidney disease), stage III (Acute) Reactive airway disease Folic acid deficiency Vitamin B12 deficiency (Chronic) Anemia Arthritis of knee, left Left knee DJD (Chronic) Dyslipidemia Chronic pain syndrome Cognitive dysfunction (Acute) Depression Lumbar spondylosis Uncontrolled type 2 diabetes mellitus with neurologic complication, with long- term current use of insulin GERD (gastroesophageal reflux disease) Mckeon esophagus CAD (coronary artery disease) (Chronic) s/p stents to RCA November 2005; s/p stents to LAD, LCx in January 2006; s/p stents to RCA in 08/2006 IBS (irritable bowel syndrome) Anxiety Medical History Dyslipidemia Hypertension Anemia Chronic kidney disease, stage 3 Diabetes mellitus, type 2 Anal stricture Diabetic gastroparesis pt unaware Anxiety IBS (irritable bowel syndrome) CAD (coronary artery disease) s/p stents to RCA November 2005; s/p stents to LAD, LCx in January 2006; s/p stents to RCA in 08/2006 Mckeon esophagus History of anemia Reactive airway disease well controlled w/ daily inhaler HTN (hypertension) Cervical spinal stenosis Esophageal ulcer without bleeding hx Hiatal hernia Hemorrhoids Esophageal spasm hx- pt not aware Edema mild, right LE History of COVID-2020 - resolved Acute non-ST elevation myocardial infarction (NSTEMI) 11/28/2021 had [place] [facility] management and follow with dr abdullahi apt 02/09/2022 GERD without esophagitis Myocardial Infarction [place]- November 2005, January 2006, Aug 2006 3 total within an 8 month span--HX OF CATH [place] [facility] [place]LLOWS WITH DR. ABDULLAHI Surgical History Status post trigger finger release right thumb S/P coronary artery stent placement s/p stents to RCA November 2005; s/p stents to LAD, LCx in January 2006; s/p stents to RCA in 08/2006 History of total hysterectomy with bilateral salpingo-oophorectomy (BSO) History of lumbar spinal fusion History of total right knee replacement (TKR) History of esophageal dilatation History of colonoscopy with polypectomy History of esophagogastroduodenoscopy (EGD) History of tooth extraction all teeth History of cholecystectomy History of cataract surgery BL History of cardiac cath last 2012 [place] [facility] [place] stents--s/p stents to RCA November 2005; s/p stents to LAD, LCx in January 2006; s/p stents to RCA in 08/2006 Family History Brother Myocardial infarction Anxiety Heart disease Hypertension Cancer Sister Family history of reaction to anesthesia difficulty waking Hypertension Heart disease Myocardial infarction Anxiety Cancer Diabetes Father Anxiety Heart disease Hypertension Mother Anxiety Hypertension Heart disease Unknown Cancer skin, GI Denies family history of Ovarian cancer Prostate cancer Breast cancer Colorectal cancer Stroke Social History Smoking Status: Former smoker Tobacco Type: Cigarettes Age Started Using Tobacco: 18; Age Quit Using Tobacco: 57; packs per day: 0.5; Second Hand Exposure: No; Do You Dip or Chew Tobacco: No; Tobacco Cessation Education Requested by Patient: No Hx Alcohol Use: No Hx Substance Use: No Preferred Language: French Communication Ability: Effective Visual Impairment: Limited Hearing Ability: Normal Welfare Investigator Required: No Beliefs That Will Affect Care: None marital status: / Current Living Situation: Alone Current Living Situation Comment: Pt currently lives home alone, but is concerned that she needs help at home current occupational status: retired and disabled How many Children do You have: 3 Feels Safe at Home: No Is there a partner from a previous relationship who is making you feel unsafe now?: No Any Concerns about Your Family Situation: No Would You Like to Speak to Someone About Your Situation: Yes (pt concerned she needs assistance with adl's and worried that she lives [place]) Childhood Exposure to Second-Hand Smoke: No Diet: regular caffeine: Yes (drinks coffee, diet pepsi occasionally ) during the past year weight has: remained stable Dental Care, Regularly: No Physical Activity Frequency: Does not Exercise Seatbelt Use: always Sunscreen Use: No Assistive Devices: Glasses and Walker Allergies Allergies Allergy/AdvReac Type Severity Reaction Status Date / Time cephalexin Allergy Intermediate Rash and Verified 01/31/25 19:04 itchiness Cephalosporins Allergy Intermediate Rash and Verified 01/31/25 19:04 itchiness Sulfa (Sulfonamide Allergy Intermediate Hives Verified 01/31/25 19:04 Antibiotics) Home Meds Home Medications Medication Instructions Recorded Confirmed aspirin 81 mg tablet,delayed 81 mg PO QAM 11/18/23 01/31/25 release insulin glargine 100 unit/mL (3 4 - 12 unit subcut BID 10/20/24 01/31/25 mL) subcutaneous pen (Basaglar KwikPen U-100 Insulin) pantoprazole 40 mg tablet,delayed 40 mg PO BID 10/20/24 01/31/25 release ferrous sulfate 325 mg (65 mg 325 mg PO QAM 10/30/24 01/31/25 iron) tablet mecobalamin (vitamin B12) 1,000 1,000 mcg PO QAM 10/30/24 01/31/25 mcg chewable tablet rosuvastatin 20 mg tablet 20 mg PO QAM 10/30/24 01/31/25 Previous Rx's Medication Instructions Recorded diclofenac sodium 1 % topical gel 4 g topical QID PRN Pain #100 grams 07/09/23 Lift Chair #1 ea 09/06/23 isosorbide mononitrate 60 mg 60 mg PO QAM #60 tabs 06/13/24 tablet,extended release 24 hr folic acid 1 mg tablet 1 mg PO QAM #90 tabs 08/10/24 famotidine 20 mg tablet 20 mg PO BID #180 tabs 09/12/24 gabapentin 100 mg capsule 100 mg PO TID #90 caps 09/28/24 duloxetine 60 mg capsule,delayed 60 mg PO QAM #90 caps 10/05/24 release fluticasone fur. 100 mcg-umeclid 1 inh inhalation QAM #60 ea 10/05/24 62.5 mcg-vilant 25 mcg inhalat.powder (Trelegy Ellipta) metoprolol succinate 50 mg 50 mg PO QAM #90 tabs 10/05/24 tablet,extended release 24 hr ergocalciferol (vitamin D2) 1,250 50,000 unit PO WK #12 caps 11/01/24 mcg (50,000 unit) capsule (Vitamin D2) buspirone 10 mg tablet 10 mg PO BID #180 tabs 12/26/24 magnesium oxide 400 mg (241.3 mg 400 mg PO QAM #30 tabs 01/05/25 magnesium) tablet Results & Data (ED) Vital Signs Vital Signs - 24 hr 01/31/25 17:46 01/31/25 18:03 01/31/25 18:11 Temperature 36.8 C Temperature Source Temporal Artery Scan Pulse Rate 86 83 Pulse Rate [Apical] 81 Respiratory Rate 18 16 Respiratory Effort / Characteristics Non-Labored Spontaneous Non-Labored Spontaneous Respiratory Depth Normal Respiratory Pattern Blood Pressure 134/79 Blood Pressure [Right Arm] 143/77 H Blood Pressure Mean 97 Blood Pressure Mean [Right Arm] 99 Blood Pressure Position Sitting Blood Pressure Position [Right Arm] Lying Pulse Oximetry 99 98 Oxygen Delivery Method Room Air Room Air Sepsis Recent Fever Within 48 Hours No Sepsis New/Unexplained Change in Mental Status No Sepsis Action Taken by Nursing No Action Required 01/31/25 18:11 01/31/25 19:11 Temperature Temperature Source Pulse Rate 81 Pulse Rate [Apical] 79 Respiratory Rate 16 20 Respiratory Effort / Characteristics Non-Labored Spontaneous Respiratory Depth Normal Respiratory Pattern Regular Blood Pressure Blood Pressure [Right Arm] 144/84 H Blood Pressure Mean Blood Pressure Mean [Right Arm] 104 Blood Pressure Position Blood Pressure Position [Right Arm] Semi-fowlers Pulse Oximetry 98 94 Oxygen Delivery Method Room Air Room Air Sepsis Recent Fever Within 48 Hours Sepsis New/Unexplained Change in Mental Status Sepsis Action Taken by [facility]fp Medications Current Medication List: was personally reviewed by me Laboratory Data Attestation: I reviewed the patient's lab results. 02/01/25 06:30 02/01/25 06:30 Lab Results 01/31/25 01/31/25 01/31/25 Range/Units 17:49 18:06 18:39 WBC 6.30 (4.8-10.8) K/ul RBC 4.18 L (4.20-5.40) M/uL Hgb 11.0 L (12.0-16.0) g/dl Hct 33.7 L (37.0-47.0) % MCV 80.6 (80.0-100.0) fL MCH 26.3 (25.0-34.0) pg MCHC 32.6 (32.0-36.0) g/dL RDW Std Deviation 43.6 (36.4-46.3) fL RDW Coeff of Tino 14.8 H (11.5-14.5) % Plt Count 218 (130-400) K/uL MPV 10.4 (9.4-12.4) fL Immature Gran % (Auto) 0.3 % Neut % (Auto) 42.4 % Lymph % (Auto) 45.1 % Carver % (Auto) 8.9 % Eos % (Auto) 2.5 % Baso % (Auto) 0.8 % Neut # (Auto) 2.67 (1.40-6.50) K/uL Lymph # (Auto) 2.84 (1.20-3.40) K/uL Carver # (Auto) 0.56 (0.11-0.59) K/uL Eos # (Auto) 0.16 (0.00-0.50) K/uL Baso # (Auto) 0.05 (0.00-0.20) K/uL Immature Gran # (Auto) 0.02 (0.01-0.20) K/uL Sodium 130 L (136-145) mmol/L Potassium 5.1 (3.5-5.1) mmol/L Chloride 97 L (98-107) mmol/L Carbon Dioxide 26 (21-32) mmol/L Anion Gap 7 (3-11) BUN 30 H (6-23) mg/dl Creatinine 1.44 H (0.6-1.2) mg/dl Est Cr Clr Drug Dosing Not Reportable eGFR 37.46 BUN/Creatinine Ratio 20.8 H (10-20) Glucose 425 H* (70-99(Fasting)) mg/dl POC Glucose 423 H* (70-99) mg/dl Calcium 9.4 (8.6-10.3) mg/dl Total Bilirubin 0.5 (0.2-1.0) mg/dl AST 24 (13-39) U/L ALT 20 (7-52) U/L Alkaline Phosphatase 77 (34-104) U/L Troponin I High Sens (0-14) pg/ml Total Protein 7.8 (6.0-8.3) gm/dl Albumin 4.0 (3.4-5.0) gm/dl Globulin 3.8 (2.5-4.0) gm/dl Albumin/Globulin Ratio 1.1 (0.9-2) TSH 8.978 H (0.300-4.500) uIu/ml Free T4 0.93 (0.61-1.60) ng/dl Urine Color Yellow Urine Appearance Clear (Clear) Urine pH 5.5 (4.5-7.5) Ur Specific [place] 1.024 (1.000-1.030) Urine Protein Trace H (Negative) Urine Glucose (UA) 3+ H (Negative) Urine Ketones Trace H (Negative) Urine Blood Trace H (Negative) Urine Nitrite Positive A (Negative) Urine Bilirubin Negative (Negative) Urine Urobilinogen Negative (Negative) Ur Leukocyte Esterase Trace H (Negative) Urine WBC (Auto) 11-20 H (0-5) /hpf Urine RBC (Auto) 0-2 (0-2) /hpf U Hyaline Cast (Auto) 3-5 H (0-2) /lpf U Epithel Cells (Auto) 0-2 (0-2) /hpf Urine Bacteria (Auto) 4+ H (None Seen) Urine Comment 01/31/25 01/31/25 Range/Units 19:44 20:51 WBC (4.8-10.8) K/ul RBC (4.20-5.40) M/uL Hgb (12.0-16.0) g/dl Hct (37.0-47.0) % MCV (80.0-100.0) fL MCH (25.0-34.0) pg MCHC (32.0-36.0) g/dL RDW Std Deviation (36.4-46.3) fL RDW Coeff of Tino (11.5-14.5) % Plt Count (130-400) K/uL MPV (9.4-12.4) fL Immature Gran % (Auto) % Neut % (Auto) % Lymph % (Auto) % Carver % (Auto) % Eos % (Auto) % Baso % (Auto) % Neut # (Auto) (1.40-6.50) K/uL Lymph # (Auto) (1.20-3.40) K/uL Carver # (Auto) (0.11-0.59) K/uL Eos # (Auto) (0.00-0.50) K/uL Baso # (Auto) (0.00-0.20) K/uL Immature Gran # (Auto) (0.01-0.20) K/uL Sodium (136-145) mmol/L Potassium (3.5-5.1) mmol/L Chloride (98-107) mmol/L Carbon Dioxide (21-32) mmol/L Anion Gap (3-11) BUN (6-23) mg/dl Creatinine (0.6-1.2) mg/dl Est Cr Clr Drug Dosing eGFR BUN/Creatinine Ratio (10-20) Glucose (70-99(Fasting)) mg/dl POC Glucose 331 H* (70-99) mg/dl Calcium (8.6-10.3) mg/dl Total Bilirubin (0.2-1.0) mg/dl AST (13-39) U/L ALT (7-52) U/L Alkaline Phosphatase (34-104) U/L Troponin I High Sens 4.2 (0-14) pg/ml Total Protein (6.0-8.3) gm/dl Albumin (3.4-5.0) gm/dl Globulin (2.5-4.0) gm/dl Albumin/Globulin Ratio (0.9-2) TSH (0.300-4.500) uIu/ml Free T4 (0.61-1.60) ng/dl Urine Color Urine Appearance (Clear) Urine pH (4.5-7.5) Ur Specific [place] (1.000-1.030) Urine Protein (Negative) Urine Glucose (UA) (Negative) Urine Ketones (Negative) Urine Blood (Negative) Urine Nitrite (Negative) Urine Bilirubin (Negative) Urine Urobilinogen (Negative) Ur Leukocyte Esterase (Negative) Urine WBC (Auto) (0-5) /hpf Urine RBC (Auto) (0-2) /hpf U Hyaline Cast (Auto) (0-2) /lpf U Epithel Cells (Auto) (0-2) /hpf Urine Bacteria (Auto) (None Seen) Urine Comment Administered Medications Amoxicillin/Clavulanate Potassium (Amoxicillin/Clavulanate 875 Mg Tab) 1 tab PO BIDM [facility]; Protocol Stop: 02/06/25 07:59 Last Admin: 02/01/25 18:36 Dose: 1 tab Documented By: Admin: 02/01/25 08:17 Dose: 1 tab Documented By: IDA Aspirin (Aspirin 81 Mg Ectab) [facility] [place] Stop: 03/03/25 08:59 Last Admin: 02/01/25 08:19 Dose: 81 mg Documented By: IDA Buspirone HCl (Buspirone 5 Mg Tab) 10 mg PO BID [facility] Stop: 03/02/25 23:05 Last Admin: 02/01/25 21:06 Dose: 10 mg Documented By: Admin: 02/01/25 08:18 Dose: 10 mg Documented By: Admin: 01/31/25 23:59 Dose: 10 mg Documented By: YESSENIA Cyanocobalamin (Cyanocobalamin (B-12) 500 Mcg Tablet) 1,000 mcg PO QAM LEON Stop: 03/03/25 08:59 Last Admin: 02/01/25 08:18 Dose: 1,000 mcg Documented By: IDA Duloxetine HCl (Duloxetine Hcl 60 Mg Cap) 60 mg PO QAM [facility] Stop: 03/03/25 08:59 Last Admin: 02/01/25 08:19 Dose: 60 mg Documented By: IDA Famotidine (Famotidine 20 Mg Tab) 20 mg PO BID LEON Stop: 03/02/25 23:05 Last Admin: 02/01/25 21:06 Dose: 20 mg Documented By: Admin: 02/01/25 11:11 Dose: 20 mg Documented By: Admin: 01/31/25 23:59 Dose: 20 mg Documented By: YESSENIA Ferrous Sulfate (Ferrous Sulfate 325 Mg Tab) 325 mg PO QAM [facility] Stop: 03/03/25 08:59 Last Admin: 02/01/25 08:17 Dose: 325 mg Documented By: IDA Fluticasone Furoate (Fluticasone Furoate 100mcg 14 Puffs/Inhaler) 1 puffs INH QAM [facility] Stop: 03/03/25 08:59 Last Admin: 02/01/25 08:19 Dose: 1 puffs Documented By: IDA Folic Acid (Folic Acid 1 Mg Tab) 1 mg PO QAM LEON Stop: 03/03/25 08:59 Last Admin: 02/01/25 08:18 Dose: 1 mg Documented By: IDA Gabapentin (Gabapentin 100 Mg Cap) 100 mg PO TID LEON Stop: 03/02/25 23:05 Last Admin: 02/01/25 21:06 Dose: 100 mg Documented By: Admin: 02/01/25 14:12 Dose: 100 mg Documented By: Admin: 02/01/25 08:18 Dose: 100 mg Documented By: Admin: 01/31/25 23:59 Dose: 100 mg Documented By: YESSENIA Heparin Sodium (Porcine) (Heparin Sod 5,000 Unit/0.5 Ml Vial) 5,000 units SQ Q12 LEON Stop: 03/02/25 23:05 Last Admin: 02/01/25 21:06 Dose: 5,000 units Documented By: Admin: 02/01/25 11:11 Dose: 5,000 units Documented By: Admin: 01/31/25 23:59 Dose: 5,000 units Documented By: YESSENIA Insulin Aspart (Insulin Aspart Per Unit Charge) 0 units SC ACHS LEON Stop: 03/02/25 23:05 Last Admin: 02/01/25 20:48 Dose: Not Given Documented By: Admin: 02/01/25 18:35 Dose: 1 units Documented By: IDA Co-signed By: MY Admin: 02/01/25 14:10 Dose: 10 units Documented By: IDA Co-signed By: NIKOLE Admin: 02/01/25 11:08 Dose: 5 units Documented By: IDA Co-signed By: IRON Admin: 01/31/25 23:59 Dose: 6 units Documented By: YESSENIA Co-signed By: WINIFRED Insulin Glargine (Lantus Per Unit Charge) 8 units SQ BID [facility] Stop: 03/02/25 23:05 Last Admin: 02/01/25 21:43 Dose: 8 units Documented By: JOSÉ Co-signed By: [id number] Admin: 02/01/25 11:08 Dose: 8 units Documented By: IDA Co-signed By: IRON Admin: 02/01/25 00:00 Dose: 8 units Documented By: YESSENIA Co-signed By: WINIFRED Isosorbide Mononitrate (Isosorbide Carver Extended Rel 60 Mg Tabcr) 60 mg PO QAM [facility] Stop: 03/03/25 08:59 Last Admin: 02/01/25 08:19 Dose: 60 mg Documented By: IDA Magnesium Oxide (Magnesium Oxide 400 Mg Tab) 400 mg PO QAM [facility] Stop: 03/03/25 08:59 Last Admin: 02/01/25 08:18 Dose: 400 mg Documented By: IDA Metoprolol Succinate (Metoprolol Succ 50mg Ext Rel Tab) 50 mg PO QAM [facility] Stop: 03/03/25 08:59 Last Admin: 02/01/25 08:18 Dose: 50 mg Documented By: IDA Pantoprazole Sodium (Pantoprazole 40 Mg Tab) 40 mg PO BID [facility] Stop: 03/02/25 23:05 Last Admin: 02/01/25 21:06 Dose: 40 mg Documented By: Admin: 02/01/25 08:18 Dose: 40 mg Documented By: Admin: 01/31/25 23:59 Dose: 40 mg Documented By: YESSENIA Polyethylene Glycol (Polyethylene (Miralax) 17 Gm Pack) 17 gm PO DAILY LEON Stop: 03/03/25 08:59 Last Admin: 02/01/25 11:11 Dose: 17 gm Documented By: IDA Rosuvastatin Calcium (Rosuvastatin Calcium 20 Mg Tab) 20 mg PO QAM [facility] Stop: 03/03/25 08:59 Last Admin: 02/01/25 08:17 Dose: 20 mg Documented By: IDA Umeclidinium/Vilanterol (Umeclidinium/Vilanterol 62.5/25mcg 7 Puffs/Inhaler) 1 [facility] [place] Stop: 03/03/25 08:59 Last Admin: 02/01/25 08:20 Dose: 1 puffs Documented By: IDA Discontinued Medications Amoxicillin/Clavulanate Potassium (Amoxicillin/Clavulanate 875 Mg Tab) 1 tab PO NOW ONE; Protocol Stop: 01/31/25 19:51 Last Admin: 01/31/25 20:01 Dose: 1 tab Documented By: ARPITA Sodium Chloride (Nss) 1,000 mls @ 999 mls/hr IV .Q1H1M ONE Stop: 01/31/25 19:23 Last Infusion: 01/31/25 19:39 Dose: Infused Documented By: Admin: 01/31/25 18:44 Dose: 999 mls/hr Documented By: DYLAN Sodium Chloride (Nss) 1,000 mls @ 999 mls/hr IV .Q1H1M ONE Stop: 01/31/25 20:39 Last Infusion: 01/31/25 21:00 Dose: Infused Documented By: Admin: 01/31/25 20:00 Dose: 999 mls/hr Documented By: ARPITA Insulin Glargine (Lantus Per Unit Charge) 8 units SQ ONE ONE Stop: 01/31/25 21:02 Last Admin: 01/31/25 21:18 Dose: 8 units Documented By: ARPITA Co-signed By: EVIE Insulin Human Regular (Novolin-R Insulin Per Unit Charge) 5 units IV NOW STA Stop: 01/31/25 19:40 Last Admin: 01/31/25 19:59 Dose: 5 units Documented By: ARPITA Co-signed By: EVIE Imaging Data Radiologist's Impression: Chest X-Ray 01/31/25 17:56 EXAM: XR chest 1V portable CLINICAL HISTORY: Weakness. TECHNIQUE: frontal chest X-ray. COMPARISON: 07/02/2023. FINDINGS: Pulmonary Parenchyma: Lungs are clear bilaterally. No evidence of consolidation, collapse, or focal opacities. No pulmonary nodules identified. No evidence of pleural effusion or pleural thickening. Heart and Mediastinum: Heart size and shape are normal. No mediastinal widening or masses. No hilar or mediastinal lymphadenopathy. Bony Thorax: Bony thorax appears intact without fractures or deformities. Newly seen right shoulder joint subluxation. Soft Tissues: Soft tissues overlying the chest wall are unremarkable. IMPRESSION: 1. No acute cardiopulmonary abnormalities identified. 2. Newly seen right shoulder joint subluxation. Electronically signed by Dhruv Hearn 01-31-2025 7:32 PM Discharge Plan Visit Data Chief Complaint: Hyperglycemia Stated Complaint: HYPERGLYCEMIA ED Provider: Bhupinder Stanley Discharge Problem: Acute hyperglycemia, Confusion, Acute dehydration, Acute UTI Patient Disposition: Admitted As Inpatient Condition: Good Discharge Instructions Interventions: ED Discharge Assessment Last Done: 01/31/25 22:25
[2025-01-31 18:23] LABS: Basophils # (auto) 0.05 K/uL (0.00-0.20); Basophils % (auto) 0.8 %; Eosinophils # (auto) 0.16 K/uL (0.00-0.50); Eosinophils % (auto) 2.5 %; Hematocrit (blood only) 33.7 % (37.0-47.0); Immature Granulocytes # (auto) 0.02 K/uL (0.01-0.20); Immature Granulocytes % (auto) 0.3 %; Lymphocytes # (auto) 2.84 K/uL (1.20-3.40); Lymphocytes % (auto) 45.1 %; Mean Corpuscular Hemoglobin 26.3 pg (25.0-34.0); Mean Corpuscular Hgb Conc 32.6 g/dL (32.0-36.0); Mean Corpuscular Volume 80.6 fL (80.0-100.0); Mean Platelet Volume 10.4 fL (9.4-12.4); Monocytes # (auto) 0.56 K/uL (0.11-0.59); Monocytes % (auto) 8.9 %; Neutrophils # (auto) 2.67 K/uL (1.40-6.50); Neutrophils % (auto) 42.4 %; Platelet Count 218 K/uL (130-400); RDW Coefficient of Variation 14.8 % (11.5-14.5); RDW Standard Deviation 43.6 fL (36.4-46.3); Red Blood Count 4.18 M/uL (4.20-5.40)
[2025-01-31 18:42] LABS: Alanine Aminotransferase 20 U/L (7-52); Albumin Globulin Ratio 1.1 (0.9-2); Alkaline Phosphatase 77 U/L (34-104); Anion Gap 7 (3-11); Aspartate Aminotransferase 24 U/L (13-39); BUN Creatinine Ratio 20.8 (10-20); Bilirubin,Total 0.5 mg/dl (0.2-1.0); Blood Urea Nitrogen 30 mg/dl (6-23); Calcium 9.4 mg/dl (8.6-10.3); Carbon Dioxide 26 mmol/L (21-32); Chloride 97 mmol/L (98-107); Globulin 3.8 gm/dl (2.5-4.0); Glucose 425 mg/dl (70-99(Fasting)); Potassium 5.1 mmol/L (3.5-5.1); Sodium 130 mmol/L (136-145); Total Protein 7.8 gm/dl (6.0-8.3)
[2025-01-31] MEDS: SODIUM CHLORIDE 0.9% 1,000 ML IV ONE ×2 (18:44→20:00)
[2025-01-31 19:01] LABS: Thyroid Stimulating Hormone 8.978 uIu/ml (0.300-4.500)
[2025-01-31 19:27] LABS: Appearance Urine Clear (Clear); Bacteria Urine Automated 4+ (None Seen); Bilirubin Urine Negative (Negative); Blood Urine Trace (Negative); Color Urine Yellow; Epithelial Cell Urine Auto 0-2 /hpf (0-2); Glucose Urine UA 3+ (Negative); Ketones Urine Trace (Negative); Leukocyte Esterase Urine Trace (Negative); Nitrite Urine Positive (Negative); Protein Urine Trace (Negative); RBC Urine Automated 0-2 /hpf (0-2); Specific Gravity Urine 1.024 (1.000-1.030); Urobilinogen Urine Negative (Negative); pH Urine 5.5 (4.5-7.5)
--- NOTE | 2025-01-31 19:32 | XRay Report ---
EXAM: XR chest 1V portable CLINICAL HISTORY: Weakness. TECHNIQUE: frontal chest X-ray. COMPARISON: 07/02/2023. FINDINGS: Pulmonary Parenchyma: Lungs are clear bilaterally. No evidence of consolidation, collapse, or focal opacities. No pulmonary nodules identified. No evidence of pleural effusion or pleural thickening. Heart and Mediastinum: Heart size and shape are normal. No mediastinal widening or masses. No hilar or mediastinal lymphadenopathy. Bony Thorax: Bony thorax appears intact without fractures or deformities. Newly seen right shoulder joint subluxation. Soft Tissues: Soft tissues overlying the chest wall are unremarkable. IMPRESSION: 1. No acute cardiopulmonary abnormalities identified. 2. Newly seen right shoulder joint subluxation. Electronically signed by Dhruv Hearn 01-31-2025 7:32 PM
[2025-01-31] MEDS: NovoLIN-R INSULIN PER UNIT CHARGE IV STA (19:59)
[2025-01-31] MEDS: AMOXICILLIN/CLAVULANATE 875 MG TAB PO ONE (20:01)
--- NOTE | 2025-01-31 20:08 | History & Physical Report ---
Date of Service January 31, 2025 Assessment & Plan (1) Acute metabolic encephalopathy: (2) UTI (urinary tract infection): (3) Diabetes mellitus with hyperglycemia: (4) CKD (chronic kidney disease), stage III: Plan This patient is a 79-year-old female with a history of severe multivessel CAD s/p multiple JOHNATHAN, HTN, HFpEF, HLD, DM 2 with neuropathy, anal/rectal stricture, CKD stage III, iron/B12/folate deficiency anemia, anxiety, GERD, reactive airway disease/? COPD, and cognitive impairment who presents to the ED with increasing confusion for the last 1 to 2 weeks as per daughter and elevated blood sugars in the 300s at home on the day of admission. Daughter is concerned for UTI. Patient denies dysuria, abdominal pain, flank pain, or fevers/chills. She reports she is chronically cold. She does report some left-sided chest pressure that spreads across her chest that is now resolving on its own which she did not report to the ED physician. She has been more generally weak and shaky as per daughter than usual. Her daughter also questions if the patient forgot to take her insulin because of the confusion from the UTI. Her urinalysis was indeed abnormal with signs of UTI. Her blood sugar was quite elevated at 425 with a pseudohyponatremia and mildly increased creatinine over baseline at 1.44. She was given 2 L of normal saline, 5 units of regular insulin IV x 1, and a dose of oral Augmentin. She will be admitted for acute metabolic encephalopathy secondary to UTI and hyperglycemia with mild dehydration #Acute metabolic encephalopathy in the setting of dementia-secondary to UTI and hyperglycemia with dehydration - Admit to medical floor with telemetry for arrhythmia monitoring - Treating UTI with antibiotics - Treating dehydration and hyperglycemia with IV fluids and insulin - Supportive care #UTI-with only symptom being confusion. UA abnormal. With history of resistant E. coli in the past and allergies to cephalosporins and Bactrim. No fevers or sepsis - Follow urine culture - Continue empiric Augmentin p.o. twice daily x 7-day course #DM2 with hyperglycemia and neuropathy/pseudohyponatremia-with blood sugar 425 on admission, sodium 130 but when corrected for hyperglycemia is normal. Likely secondary to UTI and possibly missed doses of Lantus. Patient does not know if she took it today or not. She was given regular insulin 5 units IV x 1 in the ED. She also took 4 units of Lantus prior to coming to the ED as per her daughter.. No evidence of DKA - Give Lantus 8 units x 1 now and then continue Lantus 8 units twice daily - Give NovoLog SSI with correction factor 20, carb ratio 12 - Diabetic diet, BSG's AC and at bedtime - Check HgbA1c in the a.m. - Continue home gabapentin for neuropathy - Follow BMP, magnesium, phos in the a.m. #Acute renal insufficiency on CKD stage III/dehydration-baseline creatinine around 1.2-1.4, here is 1.44, dehydration secondary to hyperglycemia - Finish out 2 L normal saline ordered in the ED, no further fluids needed after that given history of HFpEF - Follow BMP in the morning #Abnormal TSH-TSH here is 8.9 with normal free T4. Her TSH over review of labs over the past few years has always been normal and was normal as recent as 09/2024. May be due to acute illness. - No treatment for now but recommend checking repeat TSH when not acutely ill in 2 to 3 weeks as an outpatient #Anemia-Hgb around baseline at 11, microcytic. With a history of iron, B12, and folate deficiencies. TSH abnormal as noted above - Continue iron, B12, and folic acid supplementation - Check iron studies, B12, folate in the morning - Repeat TSH in 2 to 3 weeks as outpatient #Severe CAD/HTN/HFpEF/HLD-had some nonspecific left-sided chest pain when seen in the ED but ECG normal. Troponin not checked on arrival as she did not report the pain. Review of cardiology notes report chronic left-sided chest pain. She has a history of severe multivessel disease not amenable to CABG but has multiple stents in place - Check stat troponin - Monitor on telemetry for arrhythmias - Continue home aspirin, rosuvastatin, metoprolol succinate, isosorbide #Anxiety/depression-no acute issues - Continue home buspirone, duloxetine #GERD/history of Mckeon's esophagus -Continue PPI and famotidine #Reactive airway disease/suspected COPD-patient only had secondhand smoke exposure but was never a smoker. No formal PFTs to review. She is on maintenan ce inhalers at home. No acute issues - Continue maintenance inhaler DVT prophylaxis-heparin SQ Disposition-admit to medical floor with telemetry, her daughter would be her spokesperson if she is unable to make decisions for herself. PT/OT consults placed History of Present Illness Chief Complaint: Confusion, hyperglycemia Primary Care Provider: Shiela Contreras MD This patient is a 79-year-old female with a history of severe multivessel CAD s/p multiple JOHNATHAN, HTN, HFpEF, HLD, DM 2 with neuropathy, anal/rectal stricture, CKD stage III, iron/B12/folate deficiency anemia, anxiety, GERD, reactive airway disease/? COPD, and cognitive impairment who presents to the ED with increasing confusion for the last 1 to 2 weeks as per daughter and elevated blood sugars in the 300s at home on the day of admission. Daughter is concerned for UTI. Patient denies dysuria, abdominal pain, flank pain, or fevers/chills. She reports she is chronically cold. She does report some left-sided chest pressure that spreads across her chest that is now resolving on its own which she did not report to the ED physician. She has been more generally weak and shaky as per daughter than usual. Her daughter also questions if the patient forgot to take her insulin because of the confusion from the UTI. Her urinalysis was indeed abnormal with signs of UTI. Her blood sugar was quite elevated at 425 with a pseudohyponatremia and mildly increased creatinine over baseline at 1.44. She was given 2 L of normal saline, 5 units of regular insulin IV x 1, and a dose of oral Augmentin. She will be admitted for acute metabolic encephalopathy secondary to UTI and hyperglycemia with mild dehydration Allergies Allergy/AdvReac Type Severity Reaction Status Date / Time cephalexin Allergy Intermediate Rash and Verified 01/31/25 19:04 itchiness Cephalosporins Allergy Intermediate Rash and Verified 01/31/25 19:04 itchiness Sulfa (Sulfonamide Allergy Intermediate Hives Verified 01/31/25 19:04 Antibiotics) Home Medications Medication Instructions Recorded Confirmed Type diclofenac sodium 1 % topical gel 4 g topical QID PRN Pain #100 grams 07/09/23 01/31/25 Rx Lift Chair #1 ea 09/06/23 01/05/25 Rx aspirin 81 mg tablet,delayed 81 mg PO QAM 11/18/23 01/31/25 History release isosorbide mononitrate 60 mg 60 mg PO QAM #60 tabs 06/13/24 01/31/25 Rx tablet,extended release 24 hr folic acid 1 mg tablet 1 mg PO QAM #90 tabs 08/10/24 01/31/25 Rx famotidine 20 mg tablet 20 mg PO BID #180 tabs 09/12/24 01/31/25 Rx gabapentin 100 mg capsule 100 mg PO TID #90 caps 09/28/24 01/31/25 Rx duloxetine 60 mg capsule,delayed 60 mg PO QAM #90 caps 10/05/24 01/31/25 Rx release fluticasone fur. 100 mcg-umeclid 1 inh inhalation QAM #60 ea 10/05/24 01/31/25 Rx 62.5 mcg-vilant 25 mcg inhalat.powder (Trelegy Ellipta) metoprolol succinate 50 mg 50 mg PO QAM #90 tabs 10/05/24 01/31/25 Rx tablet,extended release 24 hr insulin glargine 100 unit/mL (3 4 - 12 unit subcut BID 10/20/24 01/31/25 History mL) subcutaneous pen (Tiannaaglar KwikPen U-100 Insulin) pantoprazole 40 mg tablet,delayed 40 mg PO BID 10/20/24 01/31/25 History release ferrous sulfate 325 mg (65 mg 325 mg PO QAM 10/30/24 01/31/25 History iron) tablet mecobalamin (vitamin B12) 1,000 1,000 mcg PO QAM 10/30/24 01/31/25 History mcg chewable tablet rosuvastatin 20 mg tablet 20 mg PO QAM 10/30/24 01/31/25 History ergocalciferol (vitamin D2) 1,250 50,000 unit PO WK #12 caps 11/01/24 01/31/25 Rx mcg (50,000 unit) capsule (Vitamin D2) buspirone 10 mg tablet 10 mg PO BID #180 tabs 12/26/24 01/31/25 Rx magnesium oxide 400 mg (241.3 mg 400 mg PO QAM #30 tabs 01/05/25 01/31/25 Rx magnesium) tablet Past Med/Surg History Problem List (Updated 01/31/25 @ 21:05 by Malissa Saavedra MD) UTI (urinary tract infection) (Acute) Diabetes mellitus with hyperglycemia Acute metabolic encephalopathy (Acute) Acute dehydration (Acute) Confusion (Acute) Acute hyperglycemia (Acute) Urinary incontinence Stenosis of anal canal Acute constipation (Acute) Stercoral colitis (Acute) Stercoral colitis Dementia Chronic constipation with overflow Diarrhea (Acute) Dysphagia History of Mckeon's esophagus Background diabetic retinopathy associated with type 2 diabetes mellitus Weight loss Hypomagnesemia (Acute) Dyspnea on exertion Ataxia Cervical spinal stenosis Degenerative disc disease, cervical (Acute) Hypertension (Acute) Cervical radiculopathy (Acute) Type 2 diabetes mellitus with chronic kidney disease Vitamin D deficiency CKD (chronic kidney disease), stage III (Acute) Reactive airway disease Folic acid deficiency Vitamin B12 deficiency (Chronic) Anemia Arthritis of knee, left Left knee DJD (Chronic) Dyslipidemia Chronic pain syndrome Cognitive dysfunction (Acute) Depression Lumbar spondylosis Uncontrolled type 2 diabetes mellitus with neurologic complication, with long- term current use of insulin GERD (gastroesophageal reflux disease) Mckeon esophagus CAD (coronary artery disease) (Chronic) s/p stents to RCA November 2005; s/p stents to LAD, LCx in January 2006; s/p stents to RCA in 08/2006 IBS (irritable bowel syndrome) Anxiety Medical History Dyslipidemia Hypertension Anemia Chronic kidney disease, stage 3 Diabetes mellitus, type 2 Anal stricture Diabetic gastroparesis pt unaware Anxiety IBS (irritable bowel syndrome) CAD (coronary artery disease) s/p stents to RCA November 2005; s/p stents to LAD, LCx in January 2006; s/p stents to RCA in 08/2006 Mckeon esophagus History of anemia Reactive airway disease well controlled w/ daily inhaler HTN (hypertension) Cervical spinal stenosis Esophageal ulcer without bleeding hx Hiatal hernia Hemorrhoids Esophageal spasm hx- pt not aware Edema mild, right LE History of COVID-19 2020 - resolved Acute non-ST elevation myocardial infarction (NSTEMI) 11/28/2021 had [facility] medical management and follow with dr abdullahi apt 02/09/2022 GERD without esophagitis Myocardial Infarction [facility]- November 2005, January 2006, Aug 2006 3 total within an 8 month span--HX OF CATH 2013 [facility] [place] [facility] [place]LL[place] WITH DR. ABDULLAHI Surgical History Status post trigger finger release right thumb S/P coronary artery stent placement s/p stents to RCA November 2005; s/p stents to LAD, LCx in January 2006; s/p stents to RCA in 08/2006 History of total hysterectomy with bilateral salpingo-oophorectomy (BSO) History of lumbar spinal fusion History of total right knee replacement (TKR) History of esophageal dilatation History of colonoscopy with polypectomy History of esophagogastroduodenoscopy (EGD) History of tooth extraction all teeth History of cholecystectomy History of cataract surgery BL History of cardiac cath last 2012 [place] [facility] [place] [place]ents--s/p stents to RCA November 2005; s/p stents to LAD, LCx in January 2006; s/p stents to RCA in 08/2006 Family History Brother Myocardial infarction Anxiety Heart disease Hypertension Cancer Sister Family history of reaction to anesthesia difficulty waking Hypertension Heart disease Myocardial infarction Anxiety Cancer Diabetes Father Anxiety Heart disease Hypertension Mother Anxiety Hypertension Heart disease Unknown Cancer skin, GI Denies family history of Ovarian cancer Prostate cancer Breast cancer Colorectal cancer Stroke Social History Smoking Status: Never smoker Tobacco Type: Cigarettes Age Started Using Tobacco: 18; Age Quit Using Tobacco: 57; packs per day: 0.5; Second Hand Exposure: No; Do You Dip or Chew Tobacco: No; Hx Alcohol Use: No Hx Substance Use: No Preferred Language: [place] Communication Ability: Effective Visual Impairment: Limited Hearing Ability: Normal Green Chainer Required: No Beliefs That Will Affect Care: None marital status: / Current Living Situation: Alone current occupational status: retired and disabled How many Children do You have: 3 Feels Safe at Home: No Is there a partner from a previous relationship who is making you feel unsafe now?: No Childhood Exposure to Second-Hand Smoke: No Diet: regular caffeine: Yes (drinks coffee, diet pepsi occasionally ) during the past year weight has: remained stable Dental Care, Regularly: No Physical Activity Frequency: Does not Exercise Seatbelt Use: always Sunscreen Use: No Assistive Devices: Denture - Upper, Glasses and Walker Review of Systems Review of Systems: All systems reviewed & are unremarkable except as noted in HPI & below Physical Exam Constitutional: WD/WN, vitals as above Eyes: PERRL, conjunctivae normal, anicteric sclerae Neck: trachea midline, no thyromegaly Respiratory: normal respiratory effort, lungs clear to auscultation Cardiovascular: RRR, no murmur, no edema Chest (Breasts): Chest: normal inspection of chest Gastrointestinal (Abdomen): normal bowel sounds, soft, nontender, no hepatosplenomegaly Musculoskeletal: Extremities: extremities normal to inspection; no cyanosis and no clubbing Patient with limited active range of motion of the right shoulder with forward flexion 0 to 100 degrees Negative Christianson test of impingement, no signs of overt subluxation and no pain with range of motion Skin: no rashes, warm and dry Neurologic: moves all extremities and awake; no focal motor deficits Psychiatric: Orientation: alert, oriented to person, oriented to place and cooperative Results & Data Results & Data Vital Signs (Past 12 Hours) Vital Signs Temp Pulse Pulse Resp BP BP Pulse Ox 01/31/25 19:11 79 20 144/84 H 94 01/31/25 18:11 81 16 98 01/31/25 18:11 81 16 143/77 H 98 01/31/25 18:03 83 01/31/25 17:46 36.8 C 86 18 134/79 99 O2 Del Method 01/31/25 19:11 Room Air 01/31/25 18:11 Room Air 01/31/25 18:11 Room Air 01/31/25 18:03 01/31/25 17:46 Room Air Laboratory Results CBC, BMP, LFTs, TSH, free T4, UA reviewed Diagnostic Findings CXR image personally reviewed by me and agree with the following report: Chest X-Ray 01/31/25 17:56 EXAM: XR chest 1V portable CLINICAL HISTORY: Weakness. TECHNIQUE: frontal chest X-ray. COMPARISON: 07/02/2023. FINDINGS: Pulmonary Parenchyma: Lungs are clear bilaterally. No evidence of consolidation, collapse, or focal opacities. No pulmonary nodules identified. No evidence of pleural effusion or pleural thickening. Heart and Mediastinum: Heart size and shape are normal. No mediastinal widening or masses. No hilar or mediastinal lymphadenopathy. Bony Thorax: Bony thorax appears intact without fractures or deformities. Newly seen right shoulder joint subluxation. Soft Tissues: Soft tissues overlying the chest wall are unremarkable. IMPRESSION: 1. No acute cardiopulmonary abnormalities identified. 2. Newly seen right shoulder joint subluxation. at 1811 with normal sinus rhythm, rate 78, no acute ischemic changes Code Status & VTE Plan Code Status DNR/DNI VTE Prophylaxis Plan VTE Prophylaxis will be ordered: Yes PG Care Time/CCT Total # of Minutes Spent Total Time Spent with Patient: Total time spent is greater than 50% in coordination of care (as documented) at patient's floor/unit and/or counseling patient: Coding Level of Care Code 33817 INT INP/OBS CARE 3/75MIN Diagnoses Acute metabolic encephalopathy G93.41 UTI (urinary tract infection) N39.0 Diabetes mellitus with hyperglycemia E11.65 CKD (chronic kidney disease), stage III N18.30 Chronic kidney disease stage 3 subtype: unspecified whether 3a or 3b (4) CKD (chronic kidney disease), stage III Chronic kidney disease stage 3 subtype: unspecified whether 3a or 3b Qualified Code(s): N18.30 - Chronic kidney disease, stage 3 unspecified
[2025-01-31] MEDS: LANTUS PER UNIT CHARGE SQ ONE (21:18)
[2025-01-31] MEDS ORDERED: GLUCOSE 10 TAB/TUBE PO PRN (23:06)
[2025-01-31] MEDS ORDERED: ONDANSETRON INJ 2 MG/ML 2 ML VIAL IV PRN (23:06)
[2025-01-31] MEDS ORDERED: CARBOHYDRATES FOR HYPOGLYCEMIA PO PRN (23:06)
[2025-01-31] MEDS ORDERED: DEXTROSE 50% 50 ML SYRINGE IV PRN (23:06)
[2025-01-31] MEDS ORDERED: GLUCOSE 40% GEL 15 GM TUBE PO PRN (23:06)
[2025-01-31] MEDS ORDERED: GLUCAGON FOR INJ 1 MG VIAL SQ PRN (23:06)
[2025-01-31] MEDS: INSULIN ASPART PER UNIT CHARGE SC SCH (23:59)
[2025-01-31] MEDS: FAMOTIDINE 20 MG TAB PO SCH (23:59)
[2025-01-31] MEDS: busPIRone 5 MG TAB PO SCH (23:59)
[2025-01-31] MEDS: HEPARIN SOD 5,000 UNIT/0.5 ML VIAL SQ SCH (23:59)
[2025-01-31] MEDS: PANTOprazole 40 MG TAB PO SCH (23:59)
[2025-01-31] MEDS: GABAPENTIN 100 MG CAP PO SCH (23:59)
[2025-02-01] MEDS: LANTUS PER UNIT CHARGE SQ SCH
[2025-02-01 07:16] LABS: Basophils # (auto) 0.05 K/uL (0.00-0.20); Basophils % (auto) 0.8 %; Eosinophils # (auto) 0.14 K/uL (0.00-0.50); Eosinophils % (auto) 2.2 %; Hematocrit (blood only) 30.1 % (37.0-47.0); Hemoglobin 9.6 g/dl (12.0-16.0); Immature Granulocytes # (auto) 0.02 K/uL (0.01-0.20); Immature Granulocytes % (auto) 0.3 %; Lymphocytes # (auto) 1.37 K/uL (1.20-3.40); Lymphocytes % (auto) 21.6 %; Mean Corpuscular Hemoglobin 26.4 pg (25.0-34.0); Mean Corpuscular Hgb Conc 31.9 g/dL (32.0-36.0); Mean Corpuscular Volume 82.7 fL (80.0-100.0); Mean Platelet Volume 10.3 fL (9.4-12.4); Monocytes # (auto) 0.38 K/uL (0.11-0.59); Neutrophils # (auto) 4.38 K/uL (1.40-6.50); Neutrophils % (auto) 69.1 %; Platelet Count 174 K/uL (130-400); RDW Coefficient of Variation 14.8 % (11.5-14.5); RDW Standard Deviation 44.4 fL (36.4-46.3); Red Blood Count 3.64 M/uL (4.20-5.40); White Blood Count 6.34 K/ul (4.8-10.8)
[2025-02-01 07:58] LABS: Folate (Folic Acid),Ser orPlas > 22.30 ng/ml (>5.38)
[2025-02-01 07:59] LABS: Vitamin B12 1407 pg/ml (180-914)
[2025-02-01 08:05] LABS: BUN Creatinine Ratio 21.4 (10-20); Calcium 8.6 mg/dl (8.6-10.3); Creatinine Clr Calc Pharmacy 39.3 ml/min; Ferritin 30.1 ng/ml (8-388); Magnesium 1.5 mg/dl (1.7-2.4); Phosphorus 4.2 mg/dl (2.5-4.9); Potassium 4.2 mmol/L (3.5-5.1)
[2025-02-01 08:07] LABS: Estimated Average Glucose 266 mg/dl; Hemoglobin A1C 10.9 % (4.5-5.6)
[2025-02-01] MEDS: AMOXICILLIN/CLAVULANATE 875 MG TAB PO SCH (08:17)
[2025-02-01] MEDS: FERROUS SULFATE 325 MG TAB PO SCH (08:17)
[2025-02-01] MEDS: ROSUVASTATIN CALCIUM 20 MG TAB PO SCH (08:17)
[2025-02-01] MEDS: METOPROLOL SUCC 50MG EXT REL TAB PO SCH (08:18)
[2025-02-01] MEDS: CYANOCOBALAMIN (B-12) 500 MCG TABLET PO SCH (08:18)
[2025-02-01] MEDS: FOLIC ACID 1 MG TAB PO SCH (08:18)
[2025-02-01] MEDS: MAGNESIUM OXIDE 400 MG TAB PO SCH (08:18)
[2025-02-01] MEDS: DULoxetine HCL 60 MG CAP PO SCH (08:19)
[2025-02-01] MEDS: ASPIRIN 81 MG ECTAB PO SCH (08:19)
[2025-02-01] MEDS: ISOSORBIDE MONO EXTENDED REL 60 MG TABCR PO SCH (08:19)
[2025-02-01] MEDS: FLUTICASONE FUROATE 100MCG 14 PUFFS/INHALER INH SCH (08:19)
[2025-02-01] MEDS: UMECLIDINIUM/VILANTEROL 62.5/25MCG 7 PUFFS/INHALER INH SCH (08:20)
--- NOTE | 2025-02-01 09:35 | Hospitalist Progress Note ---
Date of Service February 01, 2025 Assessment & Plan (1) Acute metabolic encephalopathy: Plan: -2nd to UTI, dehydration and hyperglycemia -resolving (2) UTI (urinary tract infection): Plan: Continue empiric Augmentin p.o. twice daily x 7-day course (3) Diabetes mellitus with hyperglycemia: Plan: -BS down to 105 -NovoLog sliding scale (4) CKD (chronic kidney disease), stage III: Plan: -s/p 2L IVF -cr improved from 1.57 to 1.12 Plan This patient is a 79-year-old female with a history of severe multivessel CAD s/p multiple JOHNATHAN, HTN, HFpEF, HLD, DM 2 with neuropathy, anal/rectal stricture, CKD stage III, iron/B12/folate deficiency anemia, anxiety, GERD, reactive airway disease/? COPD, and cognitive impairment who presents to the ED with increasing confusion for the last 1 to 2 weeks as per daughter and elevated blood sugars in the 300s at home on the day of admission. Daughter is concerned for UTI. Patient denies dysuria, abdominal pain, flank pain, or fevers/chills. She reports she is chronically cold. She does report some left-sided chest pressure that spreads across her chest that is now resolving on its own which she did not report to the ED physician. She has been more generally weak and shaky as per daughter than usual. Her daughter also questions if the patient forgot to take her insulin because of the confusion from the UTI. Her urinalysis was indeed abnormal with signs of UTI. Her blood sugar was quite elevated at 425 with a pseudohyponatremia and mildly increased creatinine over baseline at 1.44. She was given 2 L of normal saline, 5 units of regular insulin IV x 1, and a dose of oral Augmentin. She will be admitted for acute metabolic encephalopathy secondary to UTI and hyperglycemia with mild dehydration PT/OT consults placed Pt requesting home care Admission and Anticipated Discharge Date Admission Date: January 31, 2025 Subjective Pt appears at her baseline this am. Doing well. Review of Systems Review of Systems: CONST: Negative for fever, body aches and chills. HENT: Negative for neck pain/stiffness, headache, congestion, sore throat, swelling. EYES: Negative for discharge/pain or vision changes. RESP: Negative for cough/hemoptysis and shortness of breath. CV: Negative chest pain, difficulty breathing, palpitations. ABD: Negative pain, nausea, vomiting. : Negative increase frequency, dysuria, blood in urine or stool. MUSC: Negative for muscle aches, edema. SKIN: Negative rash, lesions/sores. NEURO: Negative headache, dizziness, weakness. Physical Exam Physical Exam: GENERAL APPEARANCE NAD, activity normal for age, well developed/ well nourished, no cyanosis, pallor, or diaphoresis. EYES lids/conjunctiva normal. EARS/NOSE/THROAT Mucous membranes moist, nares normal, lips/teeth normal uvula midline without oral pharyngeal erythema, exudate or swelling TMs normal bilaterally. No lymphangitis/lymphedema. HEAD/NECK normocephalic atraumatic, no facial trauma, neck is supple. RESPIRATORY respiratory effort normal, speaks in full sentences, no tripod position, no accessory muscle use. Lungs clear to auscultation without rhonchi, wheezes, rales CARDIAC Regular rate and rhythm, no edema. ABDOMINAL Soft, ND/NT. No evidence of fluid wave. No pulsatile masses on exam, rebound tenderness, Holliday sign or pain over Mcburney's point. MUSCLES/EXTREMITIES No abnormal range of motion, no swelling. SKIN Warm, pink and dry. No rashes, dermatoses, petechiae or lesions. NEUROLOGICAL Speech is clear and appropriate. Normal level of consciousness. Gait and coordination are normal. 5/5 strength in all extremities. PSYCH Normal mood and affect. Judgement/competence is appropriate Results & Data Results & Data Vital Signs (Past 12 Hours) Vital Signs Temp Pulse Pulse Resp BP BP Pulse Ox 02/01/25 07:38 36.4 C L 68 18 156/77 H 99 02/01/25 02:43 36.8 C 71 18 131/77 96 01/31/25 23:06 36.4 C L 92 H 17 106/74 94 01/31/25 22:55 71 01/31/25 22:55 01/31/25 22:25 75 18 108/59 L 94 01/31/25 22:06 75 O2 Del Method 02/01/25 07:38 Room Air 02/01/25 02:43 Room Air 01/31/25 23:06 Room Air 01/31/25 22:55 01/31/25 22:55 Room Air 01/31/25 22:25 Room Air 01/31/25 22:06 PG Care Time/CCT Total # of Minutes Spent Total Time Spent with Patient: Total time spent is greater than 50% in coordination of care (as documented) at patient's floor/unit and/or counseling patient: Coding Level of Care Code 70078 SUB INP/OBS CARE 2/35MIN Diagnoses Acute metabolic encephalopathy G93.41 UTI (urinary tract infection) N39.0 Diabetes mellitus with hyperglycemia E11.65 CKD (chronic kidney disease), stage III N18.30 Chronic kidney disease stage 3 subtype: unspecified whether 3a or 3b (4) CKD (chronic kidney disease), stage III Chronic kidney disease stage 3 subtype: unspecified whether 3a or 3b Qualified Code(s): N18.30 - Chronic kidney disease, stage 3 unspecified
[2025-02-01] MEDS: POLYETHYLENE (MIRALAX) 17 GM PACK PO SCH (11:11)
--- NOTE | 2025-02-02 06:02 | Electrocardiogram Report ---
Test Reason : Blood Pressure : */* mmHG Vent. Rate : 78 BPM Atrial Rate : 78 BPM P-R Int : 126 ms QRS Dur : 66 ms QT Int : 394 ms P-R-T Axes : 58 7 21 degrees QTcB Int : 449 ms Normal sinus rhythm Normal ECG When compared with ECG of 25-Oct-2023 10:52, No significant change was found Confirmed by Deon Gonzalez ([id number]) on 02/02/2025 6:02:25 AM Referred By: REFERRED SELF Confirmed By: Deon Gonzalez
[2025-02-02 06:48] LABS: Hematocrit (blood only) 26.7 % (37.0-47.0); Hemoglobin 8.9 g/dl (12.0-16.0); Mean Corpuscular Hemoglobin 27.1 pg (25.0-34.0); Mean Corpuscular Hgb Conc 33.3 g/dL (32.0-36.0); Mean Corpuscular Volume 81.4 fL (80.0-100.0); Mean Platelet Volume 10.4 fL (9.4-12.4); Platelet Count 151 K/uL (130-400); RDW Coefficient of Variation 14.6 % (11.5-14.5); RDW Standard Deviation 43.5 fL (36.4-46.3); Red Blood Count 3.28 M/uL (4.20-5.40); White Blood Count 5.26 K/ul (4.8-10.8)
[2025-02-02 07:05] LABS: BUN Creatinine Ratio 17.8 (10-20); Calcium 8.7 mg/dl (8.6-10.3); Creatinine Clr Calc Pharmacy 28.1 ml/min; Potassium 4.4 mmol/L (3.5-5.1)
--- NOTE | 2025-02-02 11:21 | Hospitalist Progress Note ---
Date of Service February 02, 2025 Assessment & Plan (1) Acute metabolic encephalopathy: Plan: -2nd to UTI, dehydration and hyperglycemia -resolved (2) UTI (urinary tract infection): Plan: Continue empiric Augmentin p.o. twice daily x 7-day course (3) Diabetes mellitus with hyperglycemia: Plan: -BS down to 105 -NovoLog sliding scale (4) CKD (chronic kidney disease), stage III: Plan: -s/p 2L IVF -cr improved from 1.57 to 1.12 Plan This patient is a 79-year-old female with a history of severe multivessel CAD s/p multiple JOHNATHAN, HTN, HFpEF, HLD, DM 2 with neuropathy, anal/rectal stricture, CKD stage III, iron/B12/folate deficiency anemia, anxiety, GERD, reactive airway disease/? COPD, and cognitive impairment who presents to the ED with increasing confusion for the last 1 to 2 weeks as per daughter and elevated blood sugars in the 300s at home on the day of admission. Daughter is concerned for UTI. Patient denies dysuria, abdominal pain, flank pain, or fevers/chills. She reports she is chronically cold. She does report some left-sided chest pressure that spreads across her chest that is now resolving on its own which she did not report to the ED physician. She has been more generally weak and shaky as per daughter than usual. Her daughter also questions if the patient forgot to take her insulin because of the confusion from the UTI. Her urinalysis was indeed abnormal with signs of UTI. Her blood sugar was quite elevated at 425 with a pseudohyponatremia and mildly increased creatinine over baseline at 1.44. She was given 2 L of normal saline, 5 units of regular insulin IV x 1, and a dose of oral Augmentin. She will be admitted for acute metabolic encephalopathy secondary to UTI and hyperglycemia with mild dehydration PT/OT recommending rehab Awaiting placement Admission and Anticipated Discharge Date Admission Date: January 31, 2025 Subjective No events overnight. Pt resting comfortably in bed. Review of Systems Review of Systems: CONST: Negative for fever, body aches and chills. HENT: Negative for neck pain/stiffness, headache, congestion, sore throat, swelling. EYES: Negative for discharge/pain or vision changes. RESP: Negative for cough/hemoptysis and shortness of breath. CV: Negative chest pain, difficulty breathing, palpitations. ABD: Negative pain, nausea, vomiting. : Negative increase frequency, dysuria, blood in urine or stool. MUSC: Negative for muscle aches, edema. SKIN: Negative rash, lesions/sores. NEURO: Negative headache, dizziness, weakness. Physical Exam Physical Exam: GENERAL APPEARANCE NAD, activity normal for age, well developed/ well nourished, no cyanosis, pallor, or diaphoresis. EYES lids/conjunctiva normal. EARS/NOSE/THROAT Mucous membranes moist, nares normal, lips/teeth normal uvula midline without oral pharyngeal erythema, exudate or swelling TMs normal bilaterally. No lymphangitis/lymphedema. HEAD/NECK normocephalic atraumatic, no facial trauma, neck is supple. RESPIRATORY respiratory effort normal, speaks in full sentences, no tripod position, no accessory muscle use. Lungs clear to auscultation without rhonchi, wheezes, rales CARDIAC Regular rate and rhythm, no edema. ABDOMINAL Soft, ND/NT. No evidence of fluid wave. No pulsatile masses on exam, rebound tenderness, Holliday sign or pain over Mcburney's point. MUSCLES/EXTREMITIES No abnormal range of motion, no swelling. SKIN Warm, pink and dry. No rashes, dermatoses, petechiae or lesions. NEUROLOGICAL Speech is clear and appropriate. Normal level of consciousness. Gait and coordination are normal. 5/5 strength in all extremities. PSYCH Normal mood and affect. Judgement/competence is appropriate Results & Data Results & Data Vital Signs (Past 12 Hours) Vital Signs Temp Pulse Resp BP Pulse Ox O2 Del Method 02/02/25 08:20 36.7 C 72 20 154/81 H 99 Room Air 02/02/25 02:54 36.9 C 82 18 117/67 94 Room Air PG Care Time/CCT Total # of Minutes Spent Total Time Spent with Patient: Total time spent is greater than 50% in coordination of care (as documented) at patient's floor/unit and/or counseling patient: Coding Level of Care Code 98197 SUB INP/OBS CARE 2/35MIN Diagnoses Acute metabolic encephalopathy G93.41 UTI (urinary tract infection) N39.0 Diabetes mellitus with hyperglycemia E11.65 CKD (chronic kidney disease), stage III N18.30 Chronic kidney disease stage 3 subtype: unspecified whether 3a or 3b (4) CKD (chronic kidney disease), stage III Chronic kidney disease stage 3 subtype: unspecified whether 3a or 3b Qualified Code(s): N18.30 - Chronic kidney disease, stage 3 unspecified
[2025-02-02] MEDS: SODIUM CHLORIDE 0.9% 500 ML IV SCH (11:23)
[2025-02-02] MEDS: AMOXICILLIN/CLAVULANATE 500 MG TAB PO SCH (16:52)
[2025-02-03 07:17] LABS: Hematocrit (blood only) 30.1 % (37.0-47.0); Hemoglobin 9.6 g/dl (12.0-16.0); Mean Corpuscular Hgb Conc 31.9 g/dL (32.0-36.0); Mean Corpuscular Volume 81.6 fL (80.0-100.0); Mean Platelet Volume 10.5 fL (9.4-12.4); Platelet Count 157 K/uL (130-400); RDW Coefficient of Variation 14.9 % (11.5-14.5); RDW Standard Deviation 43.9 fL (36.4-46.3); Red Blood Count 3.69 M/uL (4.20-5.40); White Blood Count 5.02 K/ul (4.8-10.8)
[2025-02-03 07:51] LABS: BUN Creatinine Ratio 19.5 (10-20); Calcium 9.1 mg/dl (8.6-10.3); Creatinine Clr Calc Pharmacy 29.7 ml/min; Potassium 4.3 mmol/L (3.5-5.1)
--- NOTE | 2025-02-03 09:36 | Hospitalist Progress Note ---
Date of Service February 03, 2025 Assessment & Plan (1) Acute metabolic encephalopathy: Plan: -2nd to UTI, dehydration and hyperglycemia -resolved (2) UTI (urinary tract infection): Plan: Continue empiric Augmentin p.o. twice daily x 7-day course (3) Diabetes mellitus with hyperglycemia: Plan: -BS down to 105 -NovoLog sliding scale (4) CKD (chronic kidney disease), stage III: Plan: -s/p 2L IVF -cr improved from 1.57 to 1.12 Plan This patient is a 79-year-old female with a history of severe multivessel CAD s/p multiple JOHNATHAN, HTN, HFpEF, HLD, DM 2 with neuropathy, anal/rectal stricture, CKD stage III, iron/B12/folate deficiency anemia, anxiety, GERD, reactive airway disease/? COPD, and cognitive impairment who presents to the ED with increasing confusion for the last 1 to 2 weeks as per daughter and elevated blood sugars in the 300s at home on the day of admission. Daughter is concerned for UTI. Patient denies dysuria, abdominal pain, flank pain, or fevers/chills. She reports she is chronically cold. She does report some left-sided chest pressure that spreads across her chest that is now resolving on its own which she did not report to the ED physician. She has been more generally weak and shaky as per daughter than usual. Her daughter also questions if the patient forgot to take her insulin because of the confusion from the UTI. Her urinalysis was indeed abnormal with signs of UTI. Her blood sugar was quite elevated at 425 with a pseudohyponatremia and mildly increased creatinine over baseline at 1.44. She was given 2 L of normal saline, 5 units of regular insulin IV x 1, and a dose of oral Augmentin. She will be admitted for acute metabolic encephalopathy secondary to UTI and hyperglycemia with mild dehydration PT/OT recommending rehab Awaiting placement Admission and Anticipated Discharge Date Admission Date: January 31, 2025 Subjective No events overnight. Pt resting comfortably in bed. Review of Systems Review of Systems: CONST: Negative for fever, body aches and chills. HENT: Negative for neck pain/stiffness, headache, congestion, sore throat, swelling. EYES: Negative for discharge/pain or vision changes. RESP: Negative for cough/hemoptysis and shortness of breath. CV: Negative chest pain, difficulty breathing, palpitations. ABD: Negative pain, nausea, vomiting. : Negative increase frequency, dysuria, blood in urine or stool. MUSC: Negative for muscle aches, edema. SKIN: Negative rash, lesions/sores. NEURO: Negative headache, dizziness, weakness. Physical Exam Physical Exam: GENERAL APPEARANCE NAD, activity normal for age, well developed/ well nourished, no cyanosis, pallor, or diaphoresis. EYES lids/conjunctiva normal. EARS/NOSE/THROAT Mucous membranes moist, nares normal, lips/teeth normal uvula midline without oral pharyngeal erythema, exudate or swelling TMs normal bilaterally. No lymphangitis/lymphedema. HEAD/NECK normocephalic atraumatic, no facial trauma, neck is supple. RESPIRATORY respiratory effort normal, speaks in full sentences, no tripod position, no accessory muscle use. Lungs clear to auscultation without rhonchi, wheezes, rales CARDIAC Regular rate and rhythm, no edema. ABDOMINAL Soft, ND/NT. No evidence of fluid wave. No pulsatile masses on exam, rebound tenderness, Hollidya sign or pain over Mcburney's point. MUSCLES/EXTREMITIES No abnormal range of motion, no swelling. SKIN Warm, pink and dry. No rashes, dermatoses, petechiae or lesions. NEUROLOGICAL Speech is clear and appropriate. Normal level of consciousness. Gait and coordination are normal. 5/5 strength in all extremities. PSYCH Normal mood and affect. Judgement/competence is appropriate Results & Data Results & Data Vital Signs (Past 12 Hours) Vital Signs Temp Pulse Pulse Resp BP Pulse Ox O2 Del Method 02/03/25 08:18 36.5 C 74 20 137/72 97 Room Air 02/03/25 05:45 74 02/03/25 04:12 36.5 C 68 20 134/78 92 Room Air 02/02/25 23:05 36.6 C 77 20 121/74 96 Room Air 02/02/25 21:57 75 PG Care Time/CCT Total # of Minutes Spent Total Time Spent with Patient: Total time spent is greater than 50% in coordination of care (as documented) at patient's floor/unit and/or counseling patient: Coding Level of Care Code 75943 SUB INP/OBS CARE 2/35MIN Diagnoses Acute metabolic encephalopathy G93.41 UTI (urinary tract infection) N39.0 Diabetes mellitus with hyperglycemia E11.65 CKD (chronic kidney disease), stage III N18.30 Chronic kidney disease stage 3 subtype: unspecified whether 3a or 3b (4) CKD (chronic kidney disease), stage III Chronic kidney disease stage 3 subtype: unspecified whether 3a or 3b Qualified Code(s): N18.30 - Chronic kidney disease, stage 3 unspecified
[2025-02-04 06:11] LABS: Hemoglobin 9.5 g/dl (12.0-16.0); Mean Corpuscular Hemoglobin 26.3 pg (25.0-34.0); Mean Corpuscular Hgb Conc 31.7 g/dL (32.0-36.0); Mean Corpuscular Volume 83.1 fL (80.0-100.0); Mean Platelet Volume 10.3 fL (9.4-12.4); Platelet Count 147 K/uL (130-400); RDW Coefficient of Variation 14.7 % (11.5-14.5); RDW Standard Deviation 45.2 fL (36.4-46.3); Red Blood Count 3.61 M/uL (4.20-5.40); White Blood Count 5.22 K/ul (4.8-10.8)
[2025-02-04 06:39] LABS: BUN Creatinine Ratio 19.7 (10-20); Calcium 9.2 mg/dl (8.6-10.3); Creatinine Clr Calc Pharmacy 34.7 ml/min; Potassium 4.7 mmol/L (3.5-5.1)
[2025-02-04] MEDS: ERGOCALCIFEROL 1250 MCG (50,000 UNITS) CAP PO SCH (08:33)
--- NOTE | 2025-02-04 10:12 | Hospitalist Progress Note ---
Date of Service February 04, 2025 Assessment & Plan (1) Acute metabolic encephalopathy: Plan: -2nd to UTI, dehydration and hyperglycemia -resolved (2) UTI (urinary tract infection): Plan: Continue empiric Augmentin p.o. twice daily x 7-day course (3) Diabetes mellitus with hyperglycemia: Plan: -BS down to 105 -NovoLog sliding scale (4) CKD (chronic kidney disease), stage III: Plan: -s/p 2L IVF -cr improved from 1.57 to 1.12 Plan This patient is a 79-year-old female with a history of severe multivessel CAD s/p multiple JOHNATHAN, HTN, HFpEF, HLD, DM 2 with neuropathy, anal/rectal stricture, CKD stage III, iron/B12/folate deficiency anemia, anxiety, GERD, reactive airway disease/? COPD, and cognitive impairment who presents to the ED with increasing confusion for the last 1 to 2 weeks as per daughter and elevated blood sugars in the 300s at home on the day of admission. Daughter is concerned for UTI. Patient denies dysuria, abdominal pain, flank pain, or fevers/chills. She reports she is chronically cold. She does report some left-sided chest pressure that spreads across her chest that is now resolving on its own which she did not report to the ED physician. She has been more generally weak and shaky as per daughter than usual. Her daughter also questions if the patient forgot to take her insulin because of the confusion from the UTI. Her urinalysis was indeed abnormal with signs of UTI. Her blood sugar was quite elevated at 425 with a pseudohyponatremia and mildly increased creatinine over baseline at 1.44. She was given 2 L of normal saline, 5 units of regular insulin IV x 1, and a dose of oral Augmentin. She will be admitted for acute metabolic encephalopathy secondary to UTI and hyperglycemia with mild dehydration PT/OT recommending rehab Awaiting placement Admission and Anticipated Discharge Date Admission Date: January 31, 2025 Subjective No events overnight. Pt resting comfortably in bed. Review of Systems Review of Systems: CONST: Negative for fever, body aches and chills. HENT: Negative for neck pain/stiffness, headache, congestion, sore throat, swelling. EYES: Negative for discharge/pain or vision changes. RESP: Negative for cough/hemoptysis and shortness of breath. CV: Negative chest pain, difficulty breathing, palpitations. ABD: Negative pain, nausea, vomiting. : Negative increase frequency, dysuria, blood in urine or stool. MUSC: Negative for muscle aches, edema. SKIN: Negative rash, lesions/sores. NEURO: Negative headache, dizziness, weakness. Physical Exam Physical Exam: GENERAL APPEARANCE NAD, activity normal for age, well developed/ well nourished, no cyanosis, pallor, or diaphoresis. EYES lids/conjunctiva normal. EARS/NOSE/THROAT Mucous membranes moist, nares normal, lips/teeth normal uvula midline without oral pharyngeal erythema, exudate or swelling TMs normal bilaterally. No lymphangitis/lymphedema. HEAD/NECK normocephalic atraumatic, no facial trauma, neck is supple. RESPIRATORY respiratory effort normal, speaks in full sentences, no tripod position, no accessory muscle use. Lungs clear to auscultation without rhonchi, wheezes, rales CARDIAC Regular rate and rhythm, no edema. ABDOMINAL Soft, ND/NT. No evidence of fluid wave. No pulsatile masses on exam, rebound tenderness, Holliday sign or pain over Mcburney's point. MUSCLES/EXTREMITIES No abnormal range of motion, no swelling. SKIN Warm, pink and dry. No rashes, dermatoses, petechiae or lesions. NEUROLOGICAL Speech is clear and appropriate. Normal level of consciousness. Gait and coordination are normal. 5/5 strength in all extremities. PSYCH Normal mood and affect. Judgement/competence is appropriate Results & Data Results & Data Vital Signs (Past 12 Hours) Vital Signs Temp Pulse Pulse Resp BP Pulse Ox O2 Del Method 02/04/25 08:24 36.7 C 70 20 173/92 H 99 Room Air 02/04/25 06:45 67 02/04/25 04:19 36.3 C L 75 20 134/80 98 Room Air 02/03/25 23:27 36.5 C 69 20 118/75 96 Room Air PG Care Time/CCT Total # of Minutes Spent Total Time Spent with Patient: Total time spent is greater than 50% in coordination of care (as documented) at patient's floor/unit and/or counseling patient: Coding Level of Care Code 76287 SUB INP/OBS CARE 2/35MIN Diagnoses Acute metabolic encephalopathy G93.41 UTI (urinary tract infection) N39.0 Diabetes mellitus with hyperglycemia E11.65 CKD (chronic kidney disease), stage III N18.30 Chronic kidney disease stage 3 subtype: unspecified whether 3a or 3b (4) CKD (chronic kidney disease), stage III Chronic kidney disease stage 3 subtype: unspecified whether 3a or 3b Qualified Code(s): N18.30 - Chronic kidney disease, stage 3 unspecified
[2025-02-05 07:00] LABS: Hematocrit (blood only) 29.6 % (37.0-47.0); Hemoglobin 9.4 g/dl (12.0-16.0); Mean Corpuscular Hemoglobin 26.5 pg (25.0-34.0); Mean Corpuscular Hgb Conc 31.8 g/dL (32.0-36.0); Mean Corpuscular Volume 83.4 fL (80.0-100.0); Mean Platelet Volume 10.3 fL (9.4-12.4); Platelet Count 160 K/uL (130-400); RDW Coefficient of Variation 14.8 % (11.5-14.5); RDW Standard Deviation 45.3 fL (36.4-46.3); Red Blood Count 3.55 M/uL (4.20-5.40)
[2025-02-05 07:19] LABS: BUN Creatinine Ratio 19.7 (10-20); Calcium 9.1 mg/dl (8.6-10.3); Creatinine Clr Calc Pharmacy 36.1 ml/min; Potassium 4.7 mmol/L (3.5-5.1)
--- NOTE | 2025-02-05 09:23 | Hospitalist Progress Note ---
Date of Service February 05, 2025 Assessment & Plan (1) Acute metabolic encephalopathy: Plan: -2nd to UTI, dehydration and hyperglycemia -resolved (2) UTI (urinary tract infection): Plan: Continue empiric Augmentin p.o. twice daily x 7-day course (3) Diabetes mellitus with hyperglycemia: Plan: -BS down to 105 -NovoLog sliding scale (4) CKD (chronic kidney disease), stage III: Plan: -s/p 2L IVF -cr improved from 1.57 to 1.12 Plan This patient is a 79-year-old female with a history of severe multivessel CAD s/p multiple JOHNATHAN, HTN, HFpEF, HLD, DM 2 with neuropathy, anal/rectal stricture, CKD stage III, iron/B12/folate deficiency anemia, anxiety, GERD, reactive airway disease/? COPD, and cognitive impairment who presents to the ED with increasing confusion for the last 1 to 2 weeks as per daughter and elevated blood sugars in the 300s at home on the day of admission. Daughter is concerned for UTI. Patient denies dysuria, abdominal pain, flank pain, or fevers/chills. She reports she is chronically cold. She does report some left-sided chest pressure that spreads across her chest that is now resolving on its own which she did not report to the ED physician. She has been more generally weak and shaky as per daughter than usual. Her daughter also questions if the patient forgot to take her insulin because of the confusion from the UTI. Her urinalysis was indeed abnormal with signs of UTI. Her blood sugar was quite elevated at 425 with a pseudohyponatremia and mildly increased creatinine over baseline at 1.44. She was given 2 L of normal saline, 5 units of regular insulin IV x 1, and a dose of oral Augmentin. She will be admitted for acute metabolic encephalopathy secondary to UTI and hyperglycemia with mild dehydration PT/OT recommending rehab Awaiting placement Admission and Anticipated Discharge Date Admission Date: January 31, 2025 Subjective No events overnight. Pt resting comfortably in bed. Review of Systems Review of Systems: CONST: Negative for fever, body aches and chills. HENT: Negative for neck pain/stiffness, headache, congestion, sore throat, swelling. EYES: Negative for discharge/pain or vision changes. RESP: Negative for cough/hemoptysis and shortness of breath. CV: Negative chest pain, difficulty breathing, palpitations. ABD: Negative pain, nausea, vomiting. : Negative increase frequency, dysuria, blood in urine or stool. MUSC: Negative for muscle aches, edema. SKIN: Negative rash, lesions/sores. NEURO: Negative headache, dizziness, weakness. Physical Exam Physical Exam: GENERAL APPEARANCE NAD, activity normal for age, well developed/ well nourished, no cyanosis, pallor, or diaphoresis. EYES lids/conjunctiva normal. EARS/NOSE/THROAT Mucous membranes moist, nares normal, lips/teeth normal uvula midline without oral pharyngeal erythema, exudate or swelling TMs normal bilaterally. No lymphangitis/lymphedema. HEAD/NECK normocephalic atraumatic, no facial trauma, neck is supple. RESPIRATORY respiratory effort normal, speaks in full sentences, no tripod position, no accessory muscle use. Lungs clear to auscultation without rhonchi, wheezes, rales CARDIAC Regular rate and rhythm, no edema. ABDOMINAL Soft, ND/NT. No evidence of fluid wave. No pulsatile masses on exam, rebound tenderness, Holliday sign or pain over Mcburney's point. MUSCLES/EXTREMITIES No abnormal range of motion, no swelling. SKIN Warm, pink and dry. No rashes, dermatoses, petechiae or lesions. NEUROLOGICAL Speech is clear and appropriate. Normal level of consciousness. Gait and coordination are normal. 5/5 strength in all extremities. PSYCH Normal mood and affect. Judgement/competence is appropriate Results & Data Results & Data Vital Signs (Past 12 Hours) Vital Signs Temp Pulse Pulse Resp BP BP Pulse Ox 02/05/25 08:41 36.6 C 70 18 139/77 98 02/05/25 07:00 69 02/05/25 03:00 36.6 C 72 20 144/78 H 96 02/04/25 23:24 36.7 C 76 20 149/78 H 96 02/04/25 21:44 76 O2 Del Method 02/05/25 08:41 Room Air 02/05/25 07:00 02/05/25 03:00 Room Air 02/04/25 23:24 Room Air 02/04/25 21:44 PG Care Time/CCT Total # of Minutes Spent Total Time Spent with Patient: Total time spent is greater than 50% in coordination of care (as documented) at patient's floor/unit and/or counseling patient: Coding Level of Care Code 33166 SUB INP/OBS CARE MIN Diagnoses Acute metabolic encephalopathy G93.41 UTI (urinary tract infection) N39.0 Diabetes mellitus with hyperglycemia E11.65 CKD (chronic kidney disease), stage III N18.30 Chronic kidney disease stage 3 subtype: unspecified whether 3a or 3b (4) CKD (chronic kidney disease), stage III Chronic kidney disease stage 3 subtype: unspecified whether 3a or 3b Qualified Code(s): N18.30 - Chronic kidney disease, stage 3 unspecified
[2025-02-05] MEDS: ACETAMINOPHEN 325 MG TAB PO PRN (09:46)
--- NOTE | 2025-02-06 10:23 | Hospitalist Progress Note ---
Date of Service February 06, 2025 Assessment & Plan (1) Acute metabolic encephalopathy: Plan: -2nd to UTI, dehydration and hyperglycemia -resolved (2) UTI (urinary tract infection): Plan: Continue empiric Augmentin p.o. twice daily x 7-day course (3) Diabetes mellitus with hyperglycemia: Plan: -BS down to 105 -NovoLog sliding scale (4) CKD (chronic kidney disease), stage III: Plan: -s/p 2L IVF -cr improved from 1.57 to 1.12 Plan This patient is a 79-year-old female with a history of severe multivessel CAD s/p multiple JOHNATHAN, HTN, HFpEF, HLD, DM 2 with neuropathy, anal/rectal stricture, CKD stage III, iron/B12/folate deficiency anemia, anxiety, GERD, reactive airway disease/? COPD, and cognitive impairment who presents to the ED with increasing confusion for the last 1 to 2 weeks as per daughter and elevated blood sugars in the 300s at home on the day of admission. Daughter is concerned for UTI. Patient denies dysuria, abdominal pain, flank pain, or fevers/chills. She reports she is chronically cold. She does report some left-sided chest pressure that spreads across her chest that is now resolving on its own which she did not report to the ED physician. She has been more generally weak and shaky as per daughter than usual. Her daughter also questions if the patient forgot to take her insulin because of the confusion from the UTI. Her urinalysis was indeed abnormal with signs of UTI. Her blood sugar was quite elevated at 425 with a pseudohyponatremia and mildly increased creatinine over baseline at 1.44. She was given 2 L of normal saline, 5 units of regular insulin IV x 1, and a dose of oral Augmentin. She will be admitted for acute metabolic encephalopathy secondary to UTI and hyperglycemia with mild dehydration PT/OT recommending rehab Awaiting placement Admission and Anticipated Discharge Date Admission Date: January 31, 2025 Subjective No events overnight, resting comfortably in chair. Review of Systems Review of Systems: CONST: Negative for fever, body aches and chills. HENT: Negative for neck pain/stiffness, headache, congestion, sore throat, swelling. EYES: Negative for discharge/pain or vision changes. RESP: Negative for cough/hemoptysis and shortness of breath. CV: Negative chest pain, difficulty breathing, palpitations. ABD: Negative pain, nausea, vomiting. : Negative increase frequency, dysuria, blood in urine or stool. MUSC: Negative for muscle aches, edema. SKIN: Negative rash, lesions/sores. NEURO: Negative headache, dizziness, weakness. Physical Exam Physical Exam: GENERAL APPEARANCE NAD, activity normal for age, well developed/ well nourished, no cyanosis, pallor, or diaphoresis. EYES lids/conjunctiva normal. EARS/NOSE/THROAT Mucous membranes moist, nares normal, lips/teeth normal uvula midline without oral pharyngeal erythema, exudate or swelling TMs normal bilaterally. No lymphangitis/lymphedema. HEAD/NECK normocephalic atraumatic, no facial trauma, neck is supple. RESPIRATORY respiratory effort normal, speaks in full sentences, no tripod position, no accessory muscle use. Lungs clear to auscultation without rhonchi, wheezes, rales CARDIAC Regular rate and rhythm, no edema. ABDOMINAL Soft, ND/NT. No evidence of fluid wave. No pulsatile masses on exam, rebound tenderness, Holliday sign or pain over Mcburney's point. MUSCLES/EXTREMITIES No abnormal range of motion, no swelling. SKIN Warm, pink and dry. No rashes, dermatoses, petechiae or lesions. NEUROLOGICAL Speech is clear and appropriate. Normal level of consciousness. Gait and coordination are normal. 5/5 strength in all extremities. PSYCH Normal mood and affect. Judgement/competence is appropriate Results & Data Results & Data Vital Signs (Past 12 Hours) Vital Signs Temp Pulse Pulse Resp BP BP Pulse Ox 02/06/25 08:13 36.8 C 70 20 148/82 H 99 02/06/25 06:49 68 02/06/25 02:23 36.4 C L 78 18 147/79 H 98 02/05/25 22:49 36.7 C 69 18 131/69 97 O2 Del Method 02/06/25 08:13 Room Air 02/06/25 06:49 02/06/25 02:23 Room Air 02/05/25 22:49 Room Air PG Care Time/CCT Total # of Minutes Spent Total Time Spent with Patient: Total time spent is greater than 50% in coordination of care (as documented) at patient's floor/unit and/or counseling patient: Coding Level of Care Code 10957 SUB INP/OBS CARE 2/35MIN Diagnoses Acute metabolic encephalopathy G93.41 UTI (urinary tract infection) N39.0 Diabetes mellitus with hyperglycemia E11.65 CKD (chronic kidney disease), stage III N18.30 Chronic kidney disease stage 3 subtype: unspecified whether 3a or 3b (4) CKD (chronic kidney disease), stage III Chronic kidney disease stage 3 subtype: unspecified whether 3a or 3b Qualified Code(s): N18.30 - Chronic kidney disease, stage 3 unspecified
--- NOTE | 2025-02-07 10:12 | Hospitalist Progress Note ---
Date of Service February 07, 2025 Assessment & Plan (1) Acute metabolic encephalopathy: Plan: -2nd to UTI, dehydration and hyperglycemia -resolved (2) UTI (urinary tract infection): Plan: Continue empiric Augmentin p.o. twice daily x 7-day course (3) Diabetes mellitus with hyperglycemia: Plan: -BS down to 105 -NovoLog sliding scale (4) CKD (chronic kidney disease), stage III: Plan: -s/p 2L IVF -cr improved from 1.57 to 1.12 Plan This patient is a 79-year-old female with a history of severe multivessel CAD s/p multiple JOHNATHAN, HTN, HFpEF, HLD, DM 2 with neuropathy, anal/rectal stricture, CKD stage III, iron/B12/folate deficiency anemia, anxiety, GERD, reactive airway disease/? COPD, and cognitive impairment who presents to the ED with increasing confusion for the last 1 to 2 weeks as per daughter and elevated blood sugars in the 300s at home on the day of admission. Daughter is concerned for UTI. Patient denies dysuria, abdominal pain, flank pain, or fevers/chills. She reports she is chronically cold. She does report some left-sided chest pressure that spreads across her chest that is now resolving on its own which she did not report to the ED physician. She has been more generally weak and shaky as per daughter than usual. Her daughter also questions if the patient forgot to take her insulin because of the confusion from the UTI. Her urinalysis was indeed abnormal with signs of UTI. Her blood sugar was quite elevated at 425 with a pseudohyponatremia and mildly increased creatinine over baseline at 1.44. She was given 2 L of normal saline, 5 units of regular insulin IV x 1, and a dose of oral Augmentin. She will be admitted for acute metabolic encephalopathy secondary to UTI and hyperglycemia with mild dehydration PT/OT recommending rehab Awaiting placement Admission and Anticipated Discharge Date Admission Date: January 31, 2025 Subjective No events overnight, resting comfortably in chair. Review of Systems Review of Systems: CONST: Negative for fever, body aches and chills. HENT: Negative for neck pain/stiffness, headache, congestion, sore throat, swelling. EYES: Negative for discharge/pain or vision changes. RESP: Negative for cough/hemoptysis and shortness of breath. CV: Negative chest pain, difficulty breathing, palpitations. ABD: Negative pain, nausea, vomiting. : Negative increase frequency, dysuria, blood in urine or stool. MUSC: Negative for muscle aches, edema. SKIN: Negative rash, lesions/sores. NEURO: Negative headache, dizziness, weakness. Physical Exam Physical Exam: GENERAL APPEARANCE NAD, activity normal for age, well developed/ well nourished, no cyanosis, pallor, or diaphoresis. EYES lids/conjunctiva normal. EARS/NOSE/THROAT Mucous membranes moist, nares normal, lips/teeth normal uvula midline without oral pharyngeal erythema, exudate or swelling TMs normal bilaterally. No lymphangitis/lymphedema. HEAD/NECK normocephalic atraumatic, no facial trauma, neck is supple. RESPIRATORY respiratory effort normal, speaks in full sentences, no tripod position, no accessory muscle use. Lungs clear to auscultation without rhonchi, wheezes, rales CARDIAC Regular rate and rhythm, no edema. ABDOMINAL Soft, ND/NT. No evidence of fluid wave. No pulsatile masses on exam, rebound tenderness, Holliday sign or pain over Mcburney's point. MUSCLES/EXTREMITIES No abnormal range of motion, no swelling. SKIN Warm, pink and dry. No rashes, dermatoses, petechiae or lesions. NEUROLOGICAL Speech is clear and appropriate. Normal level of consciousness. Gait and coordination are normal. 5/5 strength in all extremities. PSYCH Normal mood and affect. Judgement/competence is appropriate Results & Data Results & Data Vital Signs (Past 12 Hours) Vital Signs Temp Pulse Pulse Resp BP Pulse Ox O2 Del Method 02/07/25 07:21 67 02/07/25 06:59 36.5 C 68 17 154/80 H 99 Room Air 02/07/25 04:48 36.7 C 71 18 124/78 97 Room Air 02/06/25 22:29 36.7 C 71 18 114/70 96 Room Air PG Care Time/CCT Total # of Minutes Spent Total Time Spent with Patient: Total time spent is greater than 50% in coordination of care (as documented) at patient's floor/unit and/or counseling patient: Coding Level of Care Code 21921 SUB INP/OBS CARE 2/35MIN Diagnoses Acute metabolic encephalopathy G93.41 UTI (urinary tract infection) N39.0 Diabetes mellitus with hyperglycemia E11.65 CKD (chronic kidney disease), stage III N18.30 Chronic kidney disease stage 3 subtype: unspecified whether 3a or 3b (4) CKD (chronic kidney disease), stage III Chronic kidney disease stage 3 subtype: unspecified whether 3a or 3b Qualified Code(s): N18.30 - Chronic kidney disease, stage 3 unspecified
[2025-02-07] MEDS: LANTUS PER UNIT CHARGE SQ SCH (21:06)
--- NOTE | 2025-02-08 10:36 | Hospitalist Progress Note ---
Date of Service February 08, 2025 Assessment & Plan (1) Acute metabolic encephalopathy: Plan: -2nd to UTI, dehydration and hyperglycemia -resolved (2) UTI (urinary tract infection): Plan: Continue empiric Augmentin p.o. twice daily x 7-day course (3) Diabetes mellitus with hyperglycemia: Plan: -BS down to 105 -NovoLog sliding scale (4) CKD (chronic kidney disease), stage III: Plan: -s/p 2L IVF -cr improved from 1.57 to 1.12 Plan This patient is a 79-year-old female with a history of severe multivessel CAD s/p multiple JOHNATHAN, HTN, HFpEF, HLD, DM 2 with neuropathy, anal/rectal stricture, CKD stage III, iron/B12/folate deficiency anemia, anxiety, GERD, reactive airway disease/? COPD, and cognitive impairment who presents to the ED with increasing confusion for the last 1 to 2 weeks as per daughter and elevated blood sugars in the 300s at home on the day of admission. Daughter is concerned for UTI. Patient denies dysuria, abdominal pain, flank pain, or fevers/chills. She reports she is chronically cold. She does report some left-sided chest pressure that spreads across her chest that is now resolving on its own which she did not report to the ED physician. She has been more generally weak and shaky as per daughter than usual. Her daughter also questions if the patient forgot to take her insulin because of the confusion from the UTI. Her urinalysis was indeed abnormal with signs of UTI. Her blood sugar was quite elevated at 425 with a pseudohyponatremia and mildly increased creatinine over baseline at 1.44. She was given 2 L of normal saline, 5 units of regular insulin IV x 1, and a dose of oral Augmentin. She will be admitted for acute metabolic encephalopathy secondary to UTI and hyperglycemia with mild dehydration PT/OT recommending rehab Awaiting placement Admission and Anticipated Discharge Date Admission Date: January 31, 2025 Subjective No events overnight, resting comfortably in chair. Review of Systems Review of Systems: CONST: Negative for fever, body aches and chills. HENT: Negative for neck pain/stiffness, headache, congestion, sore throat, swelling. EYES: Negative for discharge/pain or vision changes. RESP: Negative for cough/hemoptysis and shortness of breath. CV: Negative chest pain, difficulty breathing, palpitations. ABD: Negative pain, nausea, vomiting. : Negative increase frequency, dysuria, blood in urine or stool. MUSC: Negative for muscle aches, edema. SKIN: Negative rash, lesions/sores. NEURO: Negative headache, dizziness, weakness. Physical Exam Physical Exam: GENERAL APPEARANCE NAD, activity normal for age, well developed/ well nourished, no cyanosis, pallor, or diaphoresis. EYES lids/conjunctiva normal. EARS/NOSE/THROAT Mucous membranes moist, nares normal, lips/teeth normal uvula midline without oral pharyngeal erythema, exudate or swelling TMs normal bilaterally. No lymphangitis/lymphedema. HEAD/NECK normocephalic atraumatic, no facial trauma, neck is supple. RESPIRATORY respiratory effort normal, speaks in full sentences, no tripod position, no accessory muscle use. Lungs clear to auscultation without rhonchi, wheezes, rales CARDIAC Regular rate and rhythm, no edema. ABDOMINAL Soft, ND/NT. No evidence of fluid wave. No pulsatile masses on exam, rebound tenderness, Holliday sign or pain over Mcburney's point. MUSCLES/EXTREMITIES No abnormal range of motion, no swelling. SKIN Warm, pink and dry. No rashes, dermatoses, petechiae or lesions. NEUROLOGICAL Speech is clear and appropriate. Normal level of consciousness. Gait and coordination are normal. 5/5 strength in all extremities. PSYCH Normal mood and affect. Judgement/competence is appropriate Results & Data Results & Data Vital Signs (Past 12 Hours) Vital Signs Temp Pulse Pulse Resp BP BP Pulse Ox 02/08/25 08:31 02/08/25 07:31 36.7 C 70 18 147/78 H 97 02/08/25 06:45 74 02/08/25 03:06 36.8 C 71 20 134/82 93 02/07/25 22:50 36.7 C 68 20 130/80 95 02/07/25 22:50 73 O2 Del Method 02/08/25 08:31 Room Air 02/08/25 07:31 Room Air 02/08/25 06:45 02/08/25 03:06 Room Air 02/07/25 22:50 Room Air 02/07/25 22:50 PG Care Time/CCT Total # of Minutes Spent Total Time Spent with Patient: Total time spent is greater than 50% in coordination of care (as documented) at patient's floor/unit and/or counseling patient: Coding Level of Care Code 74751 SUB INP/OBS CARE MIN Diagnoses Acute metabolic encephalopathy G93.41 UTI (urinary tract infection) N39.0 Diabetes mellitus with hyperglycemia E11.65 CKD (chronic kidney disease), stage III N18.30 Chronic kidney disease stage 3 subtype: unspecified whether 3a or 3b (4) CKD (chronic kidney disease), stage III Chronic kidney disease stage 3 subtype: unspecified whether 3a or 3b Qualified Code(s): N18.30 - Chronic kidney disease, stage 3 unspecified
[2025-02-08 11:05] VITALS: TEMP 97.9
[2025-02-08 14:55] VITALS: BP 100/65; PULSE 75; RESP 16; O2SAT 95
--- NOTE | 2025-02-08 16:31 | Discharge Summary ---
Discharge Summary Date of Service February 08, 2025 Principal Dx & Hospital Course #1 = Principal Diagnosis (1) Acute metabolic encephalopathy: -2nd to UTI, dehydration and hyperglycemia -resolved (2) UTI (urinary tract infection): Continue empiric Augmentin p.o. twice daily x 7-day course (3) Diabetes mellitus with hyperglycemia: -BS down to 105 -NovoLog sliding scale (4) CKD (chronic kidney disease), stage III: -s/p 2L IVF -cr improved from 1.57 to 1.12 Plan This patient is a 79-year-old female with a history of severe multivessel CAD s/p multiple JOHNATHAN, HTN, HFpEF, HLD, DM 2 with neuropathy, anal/rectal stricture, CKD stage III, iron/B12/folate deficiency anemia, anxiety, GERD, reactive airway disease/? COPD, and cognitive impairment who presents to the ED with increasing confusion for the last 1 to 2 weeks as per daughter and elevated blood sugars in the 300s at home on the day of admission. Daughter is concerned for UTI. Patient denies dysuria, abdominal pain, flank pain, or fevers/chills. She reports she is chronically cold. She does report some left-sided chest pressure that spreads across her chest that is now resolving on its own which she did not report to the ED physician. She has been more generally weak and shaky as per daughter than usual. Her daughter also questions if the patient forgot to take her insulin because of the confusion from the UTI. Her urinalysis was indeed abnormal with signs of UTI. Her blood sugar was quite elevated at 425 with a pseudohyponatremia and mildly increased creatinine over baseline at 1.44. She was given 2 L of normal saline, 5 units of regular insulin IV x 1, and a dose of oral Augmentin. She will be admitted for acute metabolic encephalopathy secondary to UTI and hyperglycemia with mild dehydration PT/OT recommending rehab Awaiting placement Admission HPI Per Admitting Provider This patient is a 79-year-old female with a history of severe multivessel CAD s/p multiple JOHNATHAN, HTN, HFpEF, HLD, DM 2 with neuropathy, anal/rectal stricture, CKD stage III, iron/B12/folate deficiency anemia, anxiety, GERD, reactive airway disease/? COPD, and cognitive impairment who presents to the ED with increasing confusion for the last 1 to 2 weeks as per daughter and elevated blood sugars in the 300s at home on the day of admission. Daughter is concerned for UTI. Patient denies dysuria, abdominal pain, flank pain, or fevers/chills. She reports she is chronically cold. She does report some left-sided chest pressure that spreads across her chest that is now resolving on its own which she did not report to the ED physician. She has been more generally weak and shaky as per daughter than usual. Her daughter also questions if the patient forgot to take her insulin because of the confusion from the UTI. Her urinalysis was indeed a bnormal with signs of UTI. Her blood sugar was quite elevated at 425 with a pseudohyponatremia and mildly increased creatinine over baseline at 1.44. She was given 2 L of normal saline, 5 units of regular insulin IV x 1, and a dose of oral Augmentin. She will be admitted for acute metabolic encephalopathy secondary to UTI and hyperglycemia with mild dehydration Discharge Exam GENERAL APPEARANCE NAD, activity normal for age, well developed/ well nourished, no cyanosis, pallor, or diaphoresis. EYES lids/conjunctiva normal. EARS/NOSE/THROAT Mucous membranes moist, nares normal, lips/teeth normal uvula midline without oral pharyngeal erythema, exudate or swelling TMs normal bilaterally. No lymphangitis/lymphedema. HEAD/NECK normocephalic atraumatic, no facial trauma, neck is supple. RESPIRATORY respiratory effort normal, speaks in full sentences, no tripod position, no accessory muscle use. Lungs clear to auscultation without rhonchi, wheezes, rales CARDIAC Regular rate and rhythm, no edema. ABDOMINAL Soft, ND/NT. No evidence of fluid wave. No pulsatile masses on exam, rebound tenderness, Holliday sign or pain over Mcburney's point. MUSCLES/EXTREMITIES No abnormal range of motion, no swelling. SKIN Warm, pink and dry. No rashes, dermatoses, petechiae or lesions. NEUROLOGICAL Speech is clear and appropriate. Normal level of consciousness. Gait and coordination are normal. 5/5 strength in all extremities. PSYCH Normal mood and affect. Judgement/competence is appropriate Discharge Plan Discharge Items Patient Disposition: Transfer [facility] Reason For Visit: UTI,AMS,HYPERGLYCEMIA Discharge Diagnosis: UTI, AMS, hyperglycemia Condition on Discharge: Good Activity: Resume your previous activity Non-emergency contact: Primary Care Provider Call non-emergency contact if: you have any medication questions Follow-up/Referrals: Shiela Contreras MD [Primary Care Provider] - Diet: Carb Consistent or DM2 Addtl Attending Provider Instructions: Follow up with PMD in 2 weeks Addtl [employer]isher Provider Instructions: DIABETES RECOMMENDATIONS: 1.) Need a simplified diabetes medication regimen so that family/friend can administer due to memory and hand weakness. Recommend taking full dose of Basaglar insulin in the evening with daughter/friend administering to ensure you are getting your dose every day. 2.) Recommend FreeStyle Libre3 Continuous Glucose Monitor for 24/7 monitoring of blood sugar levels and alarms. Discussed further with Endocrinology. Pending Studies at Discharge: No Stand-Alone Forms: My [employer] Skilled Items Patient informed of condition?: No DNR: No Discharge Level of Care: Acute rehab Communicable Disease: No Discharge Prognosis: Stable Lines: None Urinary Catheter: No Medications and DC Order Prescriptions: Continued isosorbide mononitrate 60 mg tablet extended release 24 hr 60 mg PO QAM Qty: 60 3RF folic acid 1 mg tablet 1 mg PO QAM Qty: 90 3RF famotidine 20 mg tablet 20 mg PO BID Qty: 180 3RF gabapentin 100 mg capsule 100 mg PO TID Qty: 90 11RF ergocalciferol (vitamin D2) [Vitamin D2] 1,250 mcg (50,000 unit) capsule 50,000 unit PO WK Qty: 12 1RF Rx Instructions: Wednesday buspirone 10 mg tablet 10 mg PO BID Qty: 180 3RF (DME) Lift Chair Misc See Rx Instructions .Route Qty: 1 0RF Rx Instructions: As directed aspirin 81 mg tablet,delayed release (DR/EC) 81 mg PO QAM magnesium oxide 400 mg (241.3 mg magnesium) tablet 400 mg PO QAM Qty: 30 11RF Trelegy Ellipta 100-62.5-25 mcg blister with device 1 inh inhalation QAM Qty: 60 11RF Rx Instructions: rinse mouth thoroughly after each dose. duloxetine 60 mg capsule,delayed release(DR/EC) 60 mg PO QAM Qty: 90 3RF metoprolol succinate 50 mg tablet extended release 24 hr 50 mg PO QAM Qty: 90 3RF diclofenac sodium 1 % gel 4 g topical QID PRN (Reason: Pain) Qty: 100 2RF Rx Instructions: apply to a single knee, shoulder, ankle, etc ferrous sulfate 325 mg (65 mg iron) tablet 325 mg PO QAM Rx Instructions: Please include in adherence packaging. Take at noon time rosuvastatin 20 mg tablet 20 mg PO QAM Rx Instructions: include in monthly pill packaging mecobalamin (vitamin B12) 1,000 mcg tablet,chewable 1,000 mcg PO QAM pantoprazole 40 mg tablet,delayed release (DR/EC) 40 mg PO BID insulin glargine [Basaglar KwikPen U-100 Insulin] 100 unit/mL (3 mL) insulin pen 4 - 12 unit SUBCUT BID Rx Instructions: Inject 12 units in the morning and 4 units in the evening Discharge Orders: Discharge Order (Routine); Ordered 02/08/25 Ordered By: Jacob Lovett Admission Data Admit Date/Time: 01/31/25 21:00 Attending Provider: Jacob Lovett Admit Provider: Malissa Saavedra Primary Care Provider: Shiela Contreras Other Providers: Malissa Saavedra; [place]; [facility]; [facility] Other Interventions: Discharge Summary Assessment (RN) Last Done: 02/08/25 14:48 Hospital Stay Data Consultations 01/31/25 19:39 ED Decision to Admit Stat Pending Results Patient Have Any Pending Studies at Discharge: No Discharge Instructions Given to Patient (Per Discharging Provider) Follow up with PMD in 2 weeks Total Time Total Time Spent Total Time Spent (In Minutes): 50 Coding Level of Care Code 12100 INP/OBS DISCH >30 MIN Diagnoses Acute metabolic encephalopathy G93.41 UTI (urinary tract infection) N39.0 Diabetes mellitus with hyperglycemia E11.65 CKD (chronic kidney disease), stage III N18.30 Chronic kidney disease stage 3 subtype: unspecified whether 3a or 3b
== END 2025-02-08 17:56 | disposition home health service (06) | DRG 637 ==
LOC: ED 17:36 → SUATTDRO 21:00 → 2N 21:00 → INTOOBSV 21:00 → 2N 22:25

== ENCOUNTER 2025-04-12 14:44 | Observation (INO) ==
[2025-04-12 15:12] LABS: Hematocrit (blood only) 33.6 % (37.0-47.0); Hemoglobin 10.6 g/dl (12.0-16.0); Immature Granulocytes # (auto) 0.02 K/uL (0.01-0.20); Immature Granulocytes % (auto) 0.3 %; Mean Corpuscular Hemoglobin 26.7 pg (25.0-34.0); Mean Corpuscular Volume 84.6 fL (80.0-100.0); Platelet Count 208 K/uL (130-400); RDW Standard Deviation 46.5 fL (36.4-46.3); Red Blood Count 3.97 M/uL (4.20-5.40); White Blood Count 6.32 K/ul (4.8-10.8)
[2025-04-12 15:29] LABS: Alanine Aminotransferase 22 U/L (7-52); Albumin Globulin Ratio 1.0 (0.9-2); Alkaline Phosphatase 55 U/L (34-104); Anion Gap 3 (3-11); Bilirubin,Total 0.5 mg/dl (0.2-1.0); Blood Urea Nitrogen 30 mg/dl (6-23); Calcium 9.5 mg/dl (8.6-10.3); Carbon Dioxide 29 mmol/L (21-32); Chloride 109 mmol/L (98-107); Globulin 3.3 gm/dl (2.5-4.0); Glucose 126 mg/dl (70-99(Fasting)); Potassium 5.0 mmol/L (3.5-5.1); Sodium 141 mmol/L (136-145); Total Protein 6.7 gm/dl (6.0-8.3)
--- NOTE | 2025-04-12 15:32 | XRay Report ---
XR chest 1V not portable HISTORY: 79 years-old Female Chest pain, nonspecific COMPARISON: 01/31/2025 TECHNIQUE: PA view of the chest FINDINGS: Cardiomediastinal and hilar silhouettes are within normal limits. Coronary arterial stent. No pneumot horax, lobar space consolidation or overt pulmonary edema. Degenerative changes of the shoulders and spine. Moderate blunting of the costophrenic angles. IMPRESSION: 1. Probable trace pleural effusions. 2. No airspace consolidation. ACT 112: Negative or not required by law. The above report was generated using voice recognition software. It may contain grammatical, syntax o r spelling errors. Electronically signed by: Jordan Vee M.D. 04/12/2025 3:31 PM
[2025-04-12 15:47] LABS: INR 1.0 (0.9-1.1); Partial Thromboplastin Time 28 Seconds (21-31); Prothrombin Time 10.9 Seconds (9.0-12.0)
--- NOTE | 2025-04-12 16:38 | Emergency Department Note ---
Impression & Plan Non-ST elevation PR (NSTEMI) ED Provider Note Diagnosis: NSTEMI Disposition: Admission CHIEF COMPLAINT: Chest pain HPI: Patient is a 79-year-old female presenting with history of coronary artery disease status post stenting presenting with episodes of chest pain. Patient states this started over the past 2 to 3 days have been intermittent. Patient states she had significantly more intense chest pain today. Patient states the pain was substernal and radiated to the left chest wall. Patient denies any radiation to the jaw or back. Patient states significant associated shortness of breath. Patient states the pain is currently a 1 out of 10. Patient believes she did take 1 baby aspirin today. PAST MEDICAL HISTORY: See Below PAST SURGICAL HISTORY: See Below SOCIAL HISTORY: See Below HOME MEDICATIONS: See Below ALLERGIES: See Below VITALS: See Below PHYSICAL EXAMINATION: GENERAL: Well appearing, well nourished, NAD, non-toxic. EYE EXAM: Normal conjunctiva. OROPHARYNX: Moist mucus membranes. Grossly normal dentition. NECK: Supple, LUNGS: Clear to auscultation. Normal chest wall mechanics. HEART: NSR ABDOMEN: Abdomen soft, non-tender, normo-active bowel sounds, no masses, no rebound or guarding BACK: No CVA TTP. SKIN: No rashes and no bruising. UPPER EXTREMITIES: Upper extremities are grossly normal LOWER EXTREMITIES: Grossly normal, no edema. NEURO EXAM: A&O x3,, normal speech, moves all 4 extremities PSYCH: Cooperative MEDICAL DECISION MAKING: History obtained from: Patient ER Course: Patient 79-year-old female history of coronary artery disease. Patient presents with worsening chest pain today. Patient states left anterior chest wall was 9- 10 out of 10 earlier today but now only 1 out of 10. Patient states significant associated shortness of breath with it. Patient states prior cardiac stents previously. Patient on previous visits has had normal troponin levels. Patient's troponin level today 111. Patient's EKG does not show signs of ischemia. Patient took 1 baby aspirin earlier today I will give her 3 more to get urgent full dose. Patient hemodynamically stable. Patient's case discussed with hospital service for further treatment and evaluation. Labs (independently interpreted) are significant for: Elevated troponin Imaging results (independently interpreted): CXR trace pleural effusion EKG interpretation (independently interpreted): Normal sinus rhythm no ST segment elevation or depression Medications given: 3 baby aspirin Consultants: Hospitalist Chronic conditions affecting care: Coronary artery disease Triage Nursing notes reviewed and agree them. Vital Signs: reviewed and remarkable for: no significant abnormalities Past Med/Surg History Problem List (Updated 04/12/25 @ 16:40 by Rosas Reynaga DO) Non-ST elevation PR (NSTEMI) (Acute) Hypothyroidism Acute UTI (Acute) Diabetes mellitus with hyperglycemia Acute metabolic encephalopathy (Acute) Acute dehydration (Acute) Confusion (Acute) Acute hyperglycemia (Acute) Urinary incontinence Stenosis of anal canal Acute constipation (Acute) Stercoral colitis (Acute) Stercoral colitis Dementia Chronic constipation with overflow Diarrhea (Acute) Dysphagia History of Mckeon's esophagus Background diabetic retinopathy associated with type 2 diabetes mellitus Weight loss Hypomagnesemia (Acute) Dyspnea on exertion Ataxia Cervical spinal stenosis Degenerative disc disease, cervical (Acute) Hypertension (Acute) Cervical radiculopathy (Acute) Type 2 diabetes mellitus with chronic kidney disease Vitamin D deficiency CKD (chronic kidney disease), stage III (Acute) Reactive airway disease Folic acid deficiency Vitamin B12 deficiency (Chronic) Anemia Arthritis of knee, left Left knee DJD (Chronic) Dyslipidemia Chronic pain syndrome Cognitive dysfunction (Acute) Depression Lumbar spondylosis Uncontrolled type 2 diabetes mellitus with neurologic complication, with long- term current use of insulin GERD (gastroesophageal reflux disease) Mckeon esophagus CAD (coronary artery disease) (Chronic) s/p stents to RCA November 2005; s/p stents to LAD, LCx in January 2006; s/p stents to RCA in 08/2006 IBS (irritable bowel syndrome) Anxiety Medical History Dyslipidemia Hypertension Anemia Chronic kidney disease, stage 3 Diabetes mellitus, type 2 Anal stricture Diabetic gastroparesis Anxiety IBS (irritable bowel syndrome) CAD (coronary artery disease) Mckeon esophagus History of anemia Reactive airway disease HTN (hypertension) Cervical spinal stenosis Esophageal ulcer without bleeding Hiatal hernia Hemorrhoids Esophageal spasm Edema History of COVID-19 Acute non-ST elevation myocardial infarction (NSTEMI) GERD without esophagitis Myocardial Infarction Surgical History Status post trigger finger release S/P coronary artery stent placement History of total hysterectomy with bilateral salpingo-oophorectomy (BSO) History of lumbar spinal fusion History of total right knee replacement (TKR) History of esophageal dilatation History of colonoscopy with polypectomy History of esophagogastroduodenoscopy (EGD) History of tooth extraction History of cholecystectomy History of cataract surgery History of cardiac cath Family History Brother Myocardial infarction Anxiety Heart disease Hypertension Cancer Sister Family history of reaction to anesthesia difficulty waking Hypertension Heart disease Myocardial infarction Anxiety Cancer Diabetes Father Anxiety Heart disease Hypertension Mother Anxiety Hypertension Heart disease Unknown Cancer skin, GI Denies family history of Ovarian cancer Prostate cancer Breast cancer Colorectal cancer Stroke Social History Smoking Status: Former smoker Tobacco Type: Cigarettes Age Started Using Tobacco: 18; Age Quit Using Tobacco: 57; packs per day: 0.5; Second Hand Exposure: No; Do You Dip or Chew Tobacco: No; Hx Alcohol Use: No Hx Substance Use: No Preferred Language: Bur[place]ian Communication Ability: Effective Visual Impairment: Limited Hearing Ability: Normal Risk Advisor Required: No Beliefs That Will Affect Care: None marital status: / Current Living Situation: Alone Current Living Situation Comment: Pt currently lives home alone, but is concerned that she needs help at home current occupational status: retired and disabled How many Children do You have: 3 Feels Safe at Home: Yes Childhood Exposure to Second-Hand Smoke: No Diet: regular caffeine: Yes (drinks coffee, diet pepsi occasionally ) during the past year weight has: remained stable Dental Care, Regularly: No Physical Activity Frequency: Does not Exercise Seatbelt Use: always Sunscreen Use: No Assistive Devices: Glasses and Walker Allergies Allergies Allergy/AdvReac Type Severity Reaction Status Date / Time cephalexin Allergy Intermediate Rash and Verified 03/21/25 09:01 itchiness Cephalosporins Allergy Intermediate Rash and Verified 03/21/25 09:01 itchiness Sulfa (Sulfonamide Allergy Intermediate Hives Verified 03/21/25 09:01 Antibiotics) Home Meds Home Medications Medication Instructions Recorded Confirmed aspirin 81 mg tablet,delayed 81 mg PO QAM 11/18/23 03/21/25 release ferrous sulfate 325 mg (65 mg 325 mg PO QAM 10/30/24 03/21/25 iron) tablet mecobalamin (vitamin B12) 1,000 1,000 mcg PO QAM 10/30/24 03/21/25 mcg chewable tablet rosuvastatin 20 mg tablet 20 mg PO QAM 10/30/24 03/21/25 Previous Rx's Medication Instructions Recorded diclofenac sodium 1 % topical gel 4 g topical QID PRN Pain #100 grams 07/09/23 Lift Chair #1 ea 09/06/23 folic acid 1 mg tablet 1 mg PO QAM #90 tabs 08/10/24 famotidine 20 mg tablet 20 mg PO BID #180 tabs 09/12/24 gabapentin 100 mg capsule 100 mg PO TID #90 caps 09/28/24 duloxetine 60 mg capsule,delayed 60 mg PO QAM #90 caps 10/05/24 release fluticasone fur. 100 mcg-umeclid 1 inh inhalation QAM #60 ea 10/05/24 62.5 mcg-vilant 25 mcg inhalat.powder (Trelegy Ellipta) metoprolol succinate 50 mg 50 mg PO QAM #90 tabs 10/05/24 tablet,extended release 24 hr ergocalciferol (vitamin D2) 1,250 50,000 unit PO WK #12 caps 11/01/24 mcg (50,000 unit) capsule (Vitamin D2) buspirone 10 mg tablet 10 mg PO BID #180 tabs 12/26/24 magnesium oxide 400 mg (241.3 mg 400 mg PO QAM #30 tabs 01/05/25 magnesium) tablet isosorbide mononitrate 60 mg 60 mg PO QAM #60 tabs 02/14/25 tablet,extended release 24 hr pantoprazole 40 mg tablet,delayed 40 mg PO BID #90 tabs 02/14/25 release blood sugar diagnostic (Accu-Chek #50 ea 02/23/25 Guide test strips) blood-glucose meter (Accu-Chek #1 ea 02/23/25 Guide Glucose Meter) insulin aspart U-100 100 unit/mL 2 unit (0.02 mL) subcut TID #15 mL 03/21/25 (3 mL) subcutaneous pen (Novolog FlexPen U-100 Insulin aspart) insulin glargine 100 unit/mL (3 20 unit (0.2 mL) subcut ONCE for 03/21/25 mL) subcutaneous pen (Basaglar sugar control inject at meal KwikPen U-100 Insulin) times. 90 days #18 mL levothyroxine 75 mcg tablet 75 mcg PO DAILY #30 tabs 03/21/25 Results & Data (ED) Vital Signs Vital Signs - 24 hr 04/12/25 14:45 Temperature 36.5 C Temperature Source Temporal Artery Scan Pulse Rate 81 Respiratory Rate 19 Respiratory Effort / Characteristics Non-Labored Spontaneous Respiratory Depth Normal Blood Pressure 140/74 Blood Pressure Mean 96 Pulse Oximetry 96 Oxygen Delivery Method Room Air Sepsis Recent Fever Within 48 Hours No Sepsis New/Unexplained Change in Mental Status N/A Sepsis Action Taken by Nursing No Action Required Laboratory Data 04/12/25 14:59 04/12/25 14:59 Lab Results 04/12/25 Range/Units 14:59 WBC 6.32 (4.8-10.8) K/ul RBC 3.97 L (4.20-5.40) M/uL Hgb 10.6 L (12.0-16.0) g/dl Hct 33.6 L (37.0-47.0) % MCV 84.6 (80.0-100.0) fL MCH 26.7 (25.0-34.0) pg MCHC 31.5 L (32.0-36.0) g/dL RDW Std Deviation 46.5 H (36.4-46.3) fL RDW Coeff of Tino 15.2 H (11.5-14.5) % Plt Count 208 (130-400) K/uL MPV 9.9 (9.4-12.4) fL Immature Gran % (Auto) 0.3 % Neut % (Auto) 57.5 % Lymph % (Auto) 30.1 % Newberry % (Auto) 8.1 % Eos % (Auto) 3.2 % Baso % (Auto) 0.8 % Neut # (Auto) 3.64 (1.40-6.50) K/uL Lymph # (Auto) 1.90 (1.20-3.40) K/uL Newberry # (Auto) 0.51 (0.11-0.59) K/uL Eos # (Auto) 0.20 (0.00-0.50) K/uL Baso # (Auto) 0.05 (0.00-0.20) K/uL Immature Gran # (Auto) 0.02 (0.01-0.20) K/uL PT 10.9 (9.0-12.0) Seconds INR 1.0 (0.9-1.1) APTT 28 (21-31) Seconds PTT Ratio 1.0 Sodium 141 (136-145) mmol/L Potassium 5.0 (3.5-5.1) mmol/L Chloride 109 H (98-107) mmol/L Carbon Dioxide 29 (21-32) mmol/L Anion Gap 3 (3-11) BUN 30 H (6-23) mg/dl Creatinine 1.29 H (0.6-1.2) mg/dl Est Cr Clr Drug Dosing Not Reportable eGFR 42.75 BUN/Creatinine Ratio 23.3 H (10-20) Glucose 126 H (70-99(Fasting)) mg/dl Calcium 9.5 (8.6-10.3) mg/dl Total Bilirubin 0.5 (0.2-1.0) mg/dl AST 20 (13-39) U/L ALT 22 (7-52) U/L Alkaline Phosphatase 55 (34-104) U/L Troponin I High Sens 111.1 H* (0-14) pg/ml Total Protein 6.7 (6.0-8.3) gm/dl Albumin 3.4 (3.4-5.0) gm/dl Globulin 3.3 (2.5-4.0) gm/dl Albumin/Globulin Ratio 1.0 (0.9-2) Imaging Data Radiologist's Impression: Chest X-Ray 04/12/25 14:49 XR chest 1V not portable HISTORY: 79 years-old Female Chest pain, nonspecific COMPARISON: 01/31/2025 TECHNIQUE: PA view of the chest FINDINGS: Cardiomediastinal and hilar silhouettes are within normal limits. Coronary arterial stent. No pneumothorax, lobar space consolidation or overt pulmonary edema. Degenerative changes of the shoulders and spine. Moderate blunting of the costophrenic angles. IMPRESSION: 1. Probable trace pleural effusions. 2. No airspace consolidation. ACT 112: Negative or not required by law. The above report was generated using voice recognition software. It may contain grammatical, syntax or spelling errors. Electronically signed by: Jordan Vee M.D. 04/12/2025 3:31 PM Discharge Plan Visit Data Chief Complaint: Chest Pain Stated Complaint: HARD BREATHING, CHEST PAIN ED Provider: Rosas Reynaga Discharge Problem: Non-ST elevation PR (NSTEMI) Condition: Serious Forms Stand Alone Forms: My [facility] [employer] Prescriptions Prescriptions: No Action folic acid 1 mg tablet 1 mg PO QAM Qty: 90 3RF famotidine 20 mg tablet 20 mg PO BID Qty: 180 3RF gabapentin 100 mg capsule 100 mg PO TID Qty: 90 11RF ergocalciferol (vitamin D2) [Vitamin D2] 1,250 mcg (50,000 unit) capsule 50,000 unit PO WK Qty: 12 1RF Rx Instructions: Wednesday buspirone 10 mg tablet 10 mg PO BID Qty: 180 3RF isosorbide mononitrate 60 mg tablet extended release 24 hr 60 mg PO QAM Qty: 60 3RF pantoprazole 40 mg tablet,delayed release (DR/EC) 40 mg PO BID Qty: 90 3RF (DME) Lift Chair Misc See Rx Instructions .Route Qty: 1 0RF Rx Instructions: As directed aspirin 81 mg tablet,delayed release (DR/EC) 81 mg PO QAM levothyroxine 75 mcg tablet 75 mcg PO DAILY Qty: 30 5RF Rx Instructions: Take one tablet by mouth every other day for the first week, take every day thereafter. Take 30-45 minutes before any other oral intake. insulin aspart U-100 [Novolog FlexPen U-100 Insulin] 100 unit/mL (3 mL) insulin pen 2 unit subcut TID Qty: 15 5RF Rx Instructions: Inject 2 units 10-15 minutes before meals. insulin glargine [Basaglar KwikPen U-100 Insulin] 100 unit/mL (3 mL) insulin pen 20 unit SUBCUT ONCE 90 Days Qty: 18 3RF Rx Instructions: Inject 20 units once a day in the morning. magnesium oxide 400 mg (241.3 mg magnesium) tablet 400 mg PO QAM Qty: 30 11RF Trelegy Ellipta 100-62.5-25 mcg blister with device 1 inh inhalation QAM Qty: 60 11RF Rx Instructions: rinse mouth thoroughly after each dose. duloxetine 60 mg capsule,delayed release(DR/EC) 60 mg PO QAM Qty: 90 3RF metoprolol succinate 50 mg tablet extended release 24 hr 50 mg PO QAM Qty: 90 3RF (DME) blood-glucose meter [Accu-Chek Guide Glucose Meter] Misc See Rx Instructions .Route Qty: 1 0RF Rx Instructions: use to check blood sugar 1x daily (DME) Accu-Chek Guide test strips Strip See Rx Instructions .Route Qty: 50 11RF Rx Instructions: use to check blood sugar 1x daily diclofenac sodium 1 % gel 4 g topical QID PRN (Reason: Pain) Qty: 100 2RF Rx Instructions: apply to a single knee, shoulder, ankle, etc ferrous sulfate 325 mg (65 mg iron) tablet 325 mg PO QAM Rx Instructions: Please include in adherence packaging. Take at noon time rosuvastatin 20 mg tablet 20 mg PO QAM Rx Instructions: include in monthly pill packaging mecobalamin (vitamin B12) 1,000 mcg tablet,chewable 1,000 mcg PO QAM Referrals Referrals: Shiela Contreras MD [Primary Care Provider] -
[2025-04-12] MEDS: ASPIRIN 81 MG CHEW PO STA (16:50)
--- NOTE | 2025-04-12 17:34 | Electrocardiogram Report ---
Test Reason : Blood Pressure : */* mmHG Vent. Rate : 78 BPM Atrial Rate : 78 BPM P-R Int : 134 ms QRS Dur : 68 ms QT Int : 392 ms P-R-T Axes : 49 23 1 degrees QTcB Int : 446 ms Normal sinus rhythm Nonspecific T wave abnormality Abnormal ECG When compared with ECG of 31-Jan-2025 18:11, No significant change was found Confirmed by Deon Gonzalez ([id number]) on 04/12/2025 5:34:02 PM Referred By: Shiela Contreras Confirmed By: Deon Gonzalez
--- NOTE | 2025-04-12 18:06 | History & Physical Report ---
Date of Service April 12, 2025 Assessment & Plan (1) Chest pain, rule out acute myocardial infarction: (2) Troponin level elevated: (3) CAD (coronary artery disease): (4) Hyperlipidemia associated with type 2 diabetes mellitus: (5) Type 2 diabetes mellitus with gastroparesis: Plan in summary this is a 79-year-old female presents with intermittent episodes of chest pain concerning for angina as well as exertional angina that resolves with rest Chest pain, rule out ACS // Elevated Troponin the patient's initial symptoms began in the morning of 04/11 with intermittent symptoms since that time; there is a specific association with activity and imp rovement with rest; the patient is unable to specify if there is any similarities to her current symptomatology to her previous MIs; the patient has numerous risk factors and established comorbidities that increase her risk of a recurrent coronary event including type 2 diabetes mellitus, hyperlipidemia, hypertension; the patient's initial EKG is not concerning for any acute ischemic changes; ; administered 381 mg aspirin tablets in the emergency department to complete a full 324 mg dose; troponin trend 111.1, 117.2; MIKEY score 134 - vital signs every 4 hours for the next 12 hours then every shift - 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 daily - start Lovenox 1 mg/kg SQ twice daily up to 8 days - continue to trend troponin every 3 hours to peak measure - follow daily renal function panel and magnesium - TTE pending at this time - potential cardiology consultation pending the patient's clinical course in the next 12 to 18 hours Type 2 diabetes mellitus Most recent hemoglobin A1c of 10.9% obtained in 01/2025; goal preprandial glucose measure of 140 and all random checks 180; we will continue the patient's home basal regimen during the hospitalization with additional bolus insulin dosing as detailed below Continue Basaglar 20 units SQ daily Bolus dosing with correction factor 55 mg/dL/unit and carbohydrate ratio 18 g/unit Admission and Anticipated Discharge Date Admission Date: 04/12/2025 History of Present Illness Chief Complaint: Chest pain Primary Care Provider: Shiela Contreras MD Ms. vasques is a 79-year-old female whose active medical conditions include hyperlipidemia, hypertension, coronary atherosclerotic disease, type 2 diabetes mellitus with multiple complications, unspecified dementia among other chronic medical conditions who presented to [facility] by EMS on 04/12 due to intermittent episodes of left-sided and left upper extremity pain without specific association to activity over the past 3 days. The patient notes that this began while at rest, its described as a heavy aching sensation beginning in the left anterior chest wall extending into the left shoulder and down to the level of their left elbow. The patient states this is different from the previous episodes of chest pain at which point they had a stent placed, at that time their chest pain was limited to exclusively the chest and not involving the left upper extremity. they deny episodes of presyncope or syncope, palpitations, lightheadedness, nausea, vomiting, diaphoresis. over the past 3 days the patient has noted some increased exertional fatigue, however this is not associated with significant dyspnea. Allergies Allergy/AdvReac Type Severity Reaction Status Date / Time cephalexin Allergy Intermediate Rash and Verified 04/12/25 16:55 itchiness Cephalosporins Allergy Intermediate Rash and Verified 04/12/25 16:55 itchiness Sulfa (Sulfonamide Allergy Intermediate Hives Verified 04/12/25 16:55 Antibiotics) Home Medications Medication Instructions Recorded Confirmed Type diclofenac sodium 1 % topical gel 4 g topical QID PRN Pain #100 grams 07/09/23 04/12/25 Rx Lift Chair #1 ea 09/06/23 03/21/25 Rx aspirin 81 mg tablet,delayed 81 mg PO QAM 11/18/23 04/12/25 History release folic acid 1 mg tablet 1 mg PO QAM #90 tabs 08/10/24 04/12/25 Rx famotidine 20 mg tablet 20 mg PO BID #180 tabs 09/12/24 04/12/25 Rx gabapentin 100 mg capsule 100 mg PO TID #90 caps 09/28/24 04/12/25 Rx duloxetine 60 mg capsule,delayed 60 mg PO QAM #90 caps 10/05/24 04/12/25 Rx release fluticasone fur. 100 mcg-umeclid 1 inh inhalation QAM #60 ea 10/05/24 04/12/25 Rx 62.5 mcg-vilant 25 mcg inhalat.powder (Trelegy Ellipta) metoprolol succinate 50 mg 50 mg PO QAM #90 tabs 10/05/24 04/12/25 Rx tablet,extended release 24 hr ferrous sulfate 325 mg (65 mg 325 mg PO QAM 03/17/25 08/28/25 History iron) tablet mecobalamin (vitamin B12) 1,000 1,000 mcg PO QAM 10/30/24 04/12/25 History mcg chewable tablet rosuvastatin 20 mg tablet 20 mg PO QAM 10/30/24 04/12/25 History ergocalciferol (vitamin D2) 1,250 50,000 unit PO WK #12 caps 11/01/24 04/12/25 Rx mcg (50,000 unit) capsule (Vitamin D2) buspirone 10 mg tablet 10 mg PO BID #180 tabs 12/26/24 04/12/25 Rx magnesium oxide 400 mg (241.3 mg 400 mg PO QAM #30 tabs 01/05/25 04/12/25 Rx magnesium) tablet isosorbide mononitrate 60 mg 60 mg PO QAM #60 tabs 02/14/25 04/12/25 Rx tablet,extended release 24 hr pantoprazole 40 mg tablet,delayed 40 mg PO BID #90 tabs 02/14/25 04/12/25 Rx release blood sugar diagnostic (Accu-Chek #50 ea 02/23/25 03/21/25 Rx Guide test strips) blood-glucose meter (Accu-Chek #1 ea 02/23/25 03/21/25 Rx Guide Glucose Meter) insulin aspart U-100 100 unit/mL 2 unit (0.02 mL) subcut TID #15 mL 03/21/25 04/12/25 Rx (3 mL) subcutaneous pen (Novolog FlexPen U-100 Insulin aspart) levothyroxine 75 mcg tablet 75 mcg PO DAILY #30 tabs 03/21/25 04/12/25 Rx insulin glargine 100 unit/mL (3 20 unit subcut QAM for sugar 04/12/25 04/12/25 History mL) subcutaneous pen (Basaglar control inject at meal times. KwikPen U-100 Insulin) Past Med/Surg History Problem List 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) Hyperlipidemia associated with type 2 diabetes mellitus (Chronic) Troponin level elevated (Acute) Chest pain, rule out acute myocardial infarction (Acute) Hypothyroidism (Chronic) Diabetes mellitus with hyperglycemia (Chronic) Urinary incontinence (Chronic) Stenosis of anal canal (Chronic) Dementia (Chronic) Chronic constipation with overflow (Chronic) Dysphagia (Chronic) Background diabetic retinopathy associated with type 2 diabetes mellitus (Chronic) Cervical spinal stenosis (Chronic) Hypertension (Chronic) 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) Vitamin D deficiency (Chronic) CKD (chronic kidney disease), stage III (Chronic) Folic acid deficiency (Chronic) Vitamin B12 deficiency (Chronic) Arthritis of knee, left (Chronic) Depression Lumbar spondylosis Uncontrolled type 2 diabetes mellitus with neurologic complication, with long- term current use of insulin GERD (gastroesophageal reflux disease) [place] esophagus (Chronic) CAD (coronary artery disease) (Chronic) s/p stents to RCA November 2005; s/p stents to LAD, LCx in January 2006; s/p stents to RCA in 08/2006 IBS (irritable bowel syndrome) Anxiety Medical History Stercoral colitis Acute UTI Esophageal ulcer without bleeding hx Hiatal hernia Hemorrhoids Esophageal spasm hx- pt not aware Edema mild, right LE History of COVID-2020 - resolved Acute non-ST elevation myocardial infarction (NSTEMI) 11/28/2021 had [place] medical management and follow with dr abdullahi apt 02/09/2022 GERD without esophagitis Myocardial Infarction [place]- November 2005, January 2006, Aug 2006 3 total within an 8 month span--[place] [facility] [place] DR. ABDULLAHI Surgical History Status post trigger finger release right thumb S/P coronary artery stent placement s/p stents to RCA November 2005; s/p stents to LAD, LCx in January 2006; s/p stents to RCA in 08/2006 History of total hysterectomy with bilateral salpingo-oophorectomy (BSO) History of lumbar spinal fusion History of total right knee replacement (TKR) History of esophageal dilatation History of colonoscopy with polypectomy History of esophagogastroduodenoscopy (EGD) History of tooth extraction all teeth History of cholecystectomy History of cataract surgery [place] [facility]--s/p stents to RCA November 2005; s/p stents to LAD, LCx in January 2006; s/p stents to RCA in 08/2006 Family History Brother Myocardial infarction Anxiety Heart disease Hypertension Cancer Sister Family history of reaction to anesthesia difficulty waking Hypertension Heart disease Myocardial infarction Anxiety Cancer Diabetes Father Anxiety Heart disease Hypertension Mother Anxiety Hypertension Heart disease Unknown Cancer skin, GI Denies family history of Ovarian cancer Prostate cancer Breast cancer Colorectal cancer Stroke Social History Smoking Status: Never smoker Tobacco Type: Cigarettes Age Started Using Tobacco: 18; Age Quit Using Tobacco: 57; packs per day: 0.5; Second Hand Exposure: No; Do You Dip or Chew Tobacco: No; Hx Alcohol Use: No Hx Substance Use: No Preferred Language: Occitan Communication Ability: Effective Visual Impairment: Limited Hearing Ability: Normal 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: No Beliefs That Will Affect Care: None marital status: / Current Living Situation: Alone Current Living Situation Comment: Pt currently lives home alone, but is concerned that she needs help at home current occupational status: retired and disabled How many Children do You have: 3 Other Information That Helps Us Care for You: No Feels Safe at Home: Hesitant to Answer Safety Concerns: Afraid for Self Childhood Exposure to Second-Hand Smoke: No Diet: regular caffeine: Yes (drinks coffee, diet pepsi occasionally ) during the past year weight has: remained stable Dental Care, Regularly: No Physical Activity Frequency: Does not Exercise Seatbelt Use: always Sunscreen Use: No Assistive Devices: Denture - Upper, Denture - Lower, Glasses and Walker Review of Systems Review of Systems: Review of cardiovascular, pulmonary, constitutional, neurologic systems was unremarkable Physical Exam Physical Exam: General: Adult female in no acute distress Vital Signs: reviewed HEENT: pupils equally round reactive to light; extraocular motion intact; moist mucous membranes Neck: no appreciable jugular venous distention Pulmonary: symmetric unrestricted chest wall excursion; clear to auscultation bilaterally Cardiovascular: regular rate and rhythm without murmurs, rubs, or gallops; S1 and S2 normal; bilateral radial and posterior tibial pulse 2+ without associated lower extremity edema Neurologic: CN II-XII grossly intact; no discernible focal weakness nor paresthesias; oriented to self, place, but not time; upon a for initial evaluation the patient cannot recall why they even presented to the emergency department Results & Data Results & Data Vital Signs (Past 12 Hours) Vital Signs Temp Pulse Resp BP Pulse Ox O2 Del Method 04/12/25 17:17 71 04/12/25 14:45 36.5 C 81 19 140/74 96 Room Air Laboratory Results troponin trend of 111, 117 ECG Additional Comments: sinus tachycardia; no stigmata of ischemic disease Code Status & VTE Plan Code Status DNR/DNI VTE Prophylaxis Plan VTE Prophylaxis will be ordered: No Reason for no VTE drug order: Contraindicated PG Care Time/CCT Total # of Minutes Spent Total Time Spent with Patient: Total time spent is greater than 50% in coordination of care (as documented) at patient's floor/unit and/or counseling patient: Coding Level of Care Code 89726 INT INP/OBS CARE 2/55MIN Diagnoses Chest pain, rule out acute myocardial infarction R07.9 Troponin level elevated R79.89 Coronary artery disease involving [place] coronary artery of [place] heart, angina presence unspecified I25.10 Associated angina: angina presence unspecified Coronary Disease-Associated Artery/Lesion type: [place] artery [place] vs. transplanted heart: [place] heart Hyperlipidemia associated with type 2 diabetes mellitus E11.69; E78.5 Type 2 diabetes mellitus with gastroparesis E11.43; K31.84 (3) CAD (coronary artery disease) Associated angina: angina presence unspecified Coronary Disease-Associated Artery/Lesion type: [place] artery [place] vs. transplanted heart: [place] heart Qualified Code(s): I25.10 - Atherosclerotic heart disease of [place] coronary artery without angina pectoris
[2025-04-12] MEDS ORDERED: GLUCOSE 40% GEL 15 GM TUBE PO PRN (19:40)
[2025-04-12] MEDS ORDERED: CARBOHYDRATES FOR HYPOGLYCEMIA PO PRN (19:40)
[2025-04-12] MEDS ORDERED: GLUCOSE 10 TAB/TUBE PO PRN (19:40)
[2025-04-12] MEDS ORDERED: PHARMACY GLYCEMIC MGMT CONSULT PRN (19:40)
[2025-04-12] MEDS ORDERED: ENOXAPARIN 1 MG/KG SC SCH (19:40)
[2025-04-12] MEDS ORDERED: DEXTROSE 50% 50 ML SYRINGE IV PRN (19:40)
[2025-04-12] MEDS ORDERED: GLUCAGON FOR INJ 1 MG VIAL SQ PRN (19:40)
[2025-04-12] MEDS: ENOXAPARIN 80 MG/0.8 ML SYR SQ SCH (20:57)
[2025-04-12] MEDS: GABAPENTIN 100 MG CAP PO SCH (22:52)
[2025-04-12] MEDS: INSULIN ASPART PER UNIT CHARGE SC SCH (22:57)
[2025-04-13] MEDS: LEVOTHYROXINE SODIUM 75 MCG TABLET PO SCH (04:47)
--- NOTE | 2025-04-13 07:50 | Hospitalist Progress Note ---
Date of Service April 13, 2025 Assessment & Plan (1) Chest pain, rule out acute myocardial infarction: (2) Troponin level elevated: (3) CAD (coronary artery disease): (4) Hyperlipidemia associated with type 2 diabetes mellitus: (5) Type 2 diabetes mellitus with gastroparesis: Plan in summary this is a 79-year-old female presents with intermittent episodes of chest pain concerning for angina as well as exertional angina that resolves with rest Chest pain, rule out ACS // Elevated Troponin the patient's initial symptoms began in the morning of 04/11 with intermittent symptoms since that time; there is a specific association with activity and imp rovement with rest; the patient is unable to specify if there is any similarities to her current symptomatology to her previous MIs; the patient has numerous risk factors and established comorbidities that increase her risk of a recurrent coronary event including type 2 diabetes mellitus, hyperlipidemia, hypertension; the patient's initial EKG is not concerning for any acute ischemic changes; ; administered 381 mg aspirin tablets in the emergency department to complete a full 324 mg dose; troponin trend 111.1, 117.2; MIKEY score 134 - vital signs every shift - 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 daily - Continue Lovenox 1 mg/kg SQ twice daily up to 04/20 - follow daily renal function panel and magnesium - TTE pending at this time - potential cardiology consultation pending the patient's clinical course Type 2 diabetes mellitus Most recent hemoglobin A1c of 10.9% obtained in 01/2025; goal preprandial glucose measure of 140 and all random checks 180; we will continue the patient's home basal regimen during the hospitalization with additional bolus insulin dosing as detailed below Continue Basaglar 20 units SQ daily Bolus dosing with correction factor 55 mg/dL/unit and carbohydrate ratio 18 g/unit Admission and Anticipated Discharge Date Admission Date: April 12, 2025 Subjective Ms. Rosas is a 79-year-old female whose active medical conditions include hyperlipidemia, hypertension, coronary atherosclerotic disease, type 2 diabetes mellitus with multiple complications, unspecified dementia among other chronic medical conditions who presented to [facility] by EMS on 04/12 due to intermittent episodes of left-sided and left upper extremity pain without specific association to activity over the past 3 days. The patient endorsed multiple episodes of recurrent chest pain overnight as well as a degree of shortness of breath however whenever I evaluated the patient at bedside she denies any of these; reassessment overnight including serologic troponin measures as well as recurrent EKGs did not reveal any significant progression of potential cardiovascular ischemia or other injury; the patient states that she feels well this morning and is hopeful for discharge however understands that she may require placement given her difficulty with navigating at home independently Review of Systems Review of Systems: Review of cardiovascular, pulmonary, constitutional, neurologic systems was unremarkable Physical Exam Physical Exam: General: Adult female in no acute distress Vital Signs: reviewed HEENT: pupils equally round reactive to light; extraocular motion intact; moist mucous membranes Neck: no appreciable jugular venous distention Pulmonary: symmetric unrestricted chest wall excursion; clear to auscultation bilaterally Cardiovascular: regular rate and rhythm without murmurs, rubs, or gallops; S1 and S2 normal; bilateral radial and posterior tibial pulse 2+ without associated lower extremity edema Neurologic: CN II-XII grossly intact; no discernible focal weakness nor paresthesias; oriented to self, place, but not time; upon a for initial evaluation the patient cannot recall why they even presented to the emergency department Results & Data Results & Data Vital Signs (Past 12 Hours) Vital Signs Temp Pulse Pulse Resp BP BP Pulse Ox 04/13/25 07:40 36.4 C L 69 18 175/94 H 98 04/13/25 07:17 74 04/13/25 02:03 04/13/25 01:45 72 04/13/25 01:42 36.5 C 75 18 173/89 H 96 04/12/25 23:12 64 18 177/82 H 95 O2 Del Method 04/13/25 07:40 Room Air 04/13/25 07:17 04/13/25 02:03 Room Air 04/13/25 01:45 04/13/25 01:42 Room Air 04/12/25 23:12 Room Air Laboratory Results Consistent downtrend of the patient's troponin overnight from 04/12 to 04/13 PG Care Time/CCT Total # of Minutes Spent Total Time Spent with Patient: Total time spent is greater than 50% in coordination of care (as documented) at patient's floor/unit and/or counseling patient: Coding Level of Care Code 01834 SUB INP/OBS CARE 2/35MIN Diagnoses Chest pain, rule out acute myocardial infarction R07.9 Troponin level elevated R79.89 Coronary artery disease involving [place] coronary artery of [place] heart, angina presence unspecified I25.10 Coronary Disease-Associated Artery/Lesion type: [place] artery [place] vs. transplanted heart: [place] heart Associated angina: angina presence unspecified Hyperlipidemia associated with type 2 diabetes mellitus E11.69; E78.5 Type 2 diabetes mellitus with gastroparesis E11.43; K31.84 (3) CAD (coronary artery disease) Coronary Disease-Associated Artery/Lesion type: [place] artery [place] vs. transplanted heart: [place] heart Associated angina: angina presence unspecified Qualified Code(s): I25.10 - Atherosclerotic heart disease of [place] coronary artery without angina pectoris
[2025-04-13] MEDS: ISOSORBIDE MONO EXTENDED REL 60 MG TABCR PO SCH (08:29)
[2025-04-13] MEDS: ROSUVASTATIN CALCIUM 20 MG TAB PO SCH (08:29)
[2025-04-13] MEDS: ASPIRIN 81 MG ECTAB PO SCH (08:29)
[2025-04-13] MEDS: UMECLIDINIUM/VILANTEROL 62.5/25MCG 7 PUFFS/INHALER INH SCH (08:30)
[2025-04-13] MEDS: FLUTICASONE FUROATE 100MCG 14 PUFFS/INHALER INH SCH (08:31)
[2025-04-13] MEDS ORDERED: NON-FORMULARY MEDICATION (Fluticasone-Umeclidin-Vilanter [Trelegy Ellipta] 100-62.5-25 mcg INH SCH (09:00)
[2025-04-13] MEDS ORDERED: LANTUS PER UNIT CHARGE SQ SCH (09:00)
[2025-04-13] MEDS: LANTUS PER UNIT CHARGE SC ONE (09:59)
--- NOTE | 2025-04-13 15:08 | Pharmacy Report ---
Pharmacy Glycemic Short Note 2 - Date of Service April 13, 2025 - Glycemic Short BSG Results (Last 24 hours): 04/12/25 04/12/25 04/13/25 14:59 22:51 01:52 Glucose 126 H POC Glucose 118 H 120 H 04/13/25 04/13/25 08:02 11:45 Glucose POC Glucose 243 H 269 H OUTPATIENT ANTIDIABETIC REGIMEN: * Basaglar 20 units SQ Q AM * Novolog 2 units TID meals HbA1c: 10.9% on 02/01/25 ASSESSMENT: * Claire is a 79 year old female who was admitted last evening with chest pain. Pharmacy was consulted for glycemic management while she is admitted. * BSG on arrival was 126mg/dL. A weight based bolus insulin regimen with a stress between 1 and 2 was started at that time. * Fasting BSG was 243mg/dL this morning. Lantus 15 units SQ X 1 was ordered (patient reportedly is not compliant with her insulin at home so did not want to give full home dose initially) and bolus insulin parameters were tightened to a stress of 2. PLAN FOR INPATIENT GLYCEMIC CONTROL: * Hold outpatient diabetes medications * Basal insulin * Lantus 15 units SQ x 1, then to reassess need tomorrow morning with additional BSG readings * Bolus insulin * NovoLog per scale ACHS or Q6hrs while NPO * Goal Range: Low 140 mg/dL - High 180 mg/dL * Correction Factor: 30 mg/dL/unit * Nutritional / Prandial insulin per carb ratio of 1 unit per 10 grams CHO consumed
--- NOTE | 2025-04-13 17:53 | XCELERA ---
[id number]
[2025-04-13] MEDS: ACETAMINOPHEN 500 MG TAB PO PRN (18:28)
[2025-04-14 06:23] LABS: Hematocrit (blood only) 31.3 % (37.0-47.0); Hemoglobin 10.0 g/dl (12.0-16.0); Mean Corpuscular Hemoglobin 26.7 pg (25.0-34.0); Mean Corpuscular Volume 83.5 fL (80.0-100.0); Platelet Count 191 K/uL (130-400); RDW Standard Deviation 45.6 fL (36.4-46.3); Red Blood Count 3.75 M/uL (4.20-5.40); White Blood Count 5.22 K/ul (4.8-10.8)
[2025-04-14 06:48] LABS: Creatinine Clr Calc Pharmacy 33.9 ml/min
--- NOTE | 2025-04-14 07:28 | Hospitalist Progress Note ---
Date of Service April 14, 2025 Assessment & Plan (1) Chest pain, rule out acute myocardial infarction: (2) Troponin level elevated: (3) CAD (coronary artery disease): (4) Hyperlipidemia associated with type 2 diabetes mellitus: (5) Type 2 diabetes mellitus with gastroparesis: Plan in summary this is a 79-year-old female presents with intermittent episodes of chest pain concerning for angina as well as exertional angina that resolves with rest Chest pain, rule out ACS // Elevated Troponin the patient's initial symptoms began in the morning of 04/11 with intermittent symptoms since that time; there is a specific association with activity and imp rovement with rest; the patient is unable to specify if there is any similarities to her current symptomatology to her previous MIs; the patient has numerous risk factors and established comorbidities that increase her risk of a recurrent coronary event including type 2 diabetes mellitus, hyperlipidemia, hypertension; the patient's initial EKG is not concerning for any acute ischemic changes; ; administered 381 mg aspirin tablets in the emergency department to complete a full 324 mg dose; troponin trend 111.1, 117.2; MIKEY score 134 - vital signs every shift - Deescalate care to general medical/surgical floor - Nursing to contact attending if patient develops recurrent or new anginal equivalent - continue ASA 81 mg p.o. daily - Continue Lovenox 1 mg/kg SQ twice daily up to 04/20 - Discontinue laboratory assessment - TTE revealed slightly progressed mitral regurgitation, not of hemodynamic significance Type 2 diabetes mellitus Most recent hemoglobin A1c of 10.9% obtained in 01/2025; goal preprandial glucose measure of 140 and all random checks 180; we will continue the patient's home basal regimen during the hospitalization with additional bolus insulin dosing as detailed below Continue Basaglar 20 units SQ daily Bolus dosing with correction factor 55 mg/dL/unit and carbohydrate ratio 18 g/unit Physical therapy evaluated the patient on 04/14, recommending acute rehab Admission and Anticipated Discharge Date Admission Date: April 12, 2025 Subjective Ms. Rosas is a 79-year-old female whose active medical conditions include hyperlipidemia, hypertension, coronary atherosclerotic disease, type 2 diabetes mellitus with multiple complications, unspecified dementia among other chronic medical conditions who presented to [facility] by EMS on 04/12 due to intermittent episodes of left-sided and left upper extremity pain without specific association to activity over the past 3 days. No acute overnight events; patient feels well today Review of Systems Review of Systems: Review of cardiovascular, pulmonary, constitutional, neurologic systems was unremarkable Physical Exam Physical Exam: General: Adult female in no acute distress Vital Signs: reviewed HEENT: pupils equally round reactive to light; extraocular motion intact; moist mucous membranes Neck: no appreciable jugular venous distention Pulmonary: symmetric unrestricted chest wall excursion; clear to auscultation bilaterally Cardiovascular: regular rate and rhythm without murmurs, rubs, or gallops; S1 and S2 normal; bilateral radial and posterior tibial pulse 2+ without associated lower extremity edema Neurologic: CN II-XII grossly intact; no discernible focal weakness nor paresthesias; oriented to self, place, but not time; upon a for initial evaluation the patient cannot recall why they even presented to the emergency de partment Results & Data Results & Data Vital Signs (Past 12 Hours) Vital Signs Temp Pulse Pulse Resp BP Pulse Ox O2 Del Method 04/14/25 04:30 36.7 C 84 18 147/86 H 96 Room Air 04/13/25 23:16 36.7 C 85 18 153/81 H 95 Room Air 04/13/25 21:46 91 H 04/13/25 20:48 Room Air 04/13/25 19:40 36.6 C 94 H 18 149/79 H 95 Room Air Coding Level of Care Code 09622 SUB INP/OBS CARE 2/35MIN Diagnoses Chest pain, rule out acute myocardial infarction R07.9 Troponin level elevated R79.89 Coronary artery disease involving [place] coronary artery of [place] heart, angina presence unspecified I25.10 Coronary Disease-Associated Artery/Lesion type: [place] artery [place] vs. transplanted heart: [place] heart Associated angina: angina presence unspecified Hyperlipidemia associated with type 2 diabetes mellitus E11.69; E78.5 Type 2 diabetes mellitus with gastroparesis E11.43; K31.84 (3) CAD (coronary artery disease) Coronary Disease-Associated Artery/Lesion type: [place] artery [place] vs. transplanted heart: [place] heart Associated angina: angina presence unspecified Qualified Code(s): I25.10 - Atherosclerotic heart disease of [place] coronary artery without angina pectoris
[2025-04-14] MEDS ORDERED: NON-FORMULARY MEDICATION (Insulin Glargine [Basaglar Kwikpen U-100 Insulin] 100 unit/mL (3 SQ SCH (09:00)
[2025-04-14] MEDS: MAGNESIUM OXIDE 400 MG TAB PO SCH (09:53)
[2025-04-14] MEDS: LANTUS PER UNIT CHARGE SC SCH (09:58)
--- NOTE | 2025-04-15 07:21 | Electrocardiogram Report ---
Test Reason : Blood Pressure : */* mmHG Vent. Rate : 66 BPM Atrial Rate : 66 BPM P-R Int : 152 ms QRS Dur : 66 ms QT Int : 432 ms P-R-T Axes : 65 28 -12 degrees QTcB Int : 452 ms Normal sinus rhythm Nonspecific ST abnormality When compared with ECG of 12-Apr-2025 20:13, (unconfirmed) No significant change was found Confirmed by Matty Pinto ([id number]) on 04/15/2025 7:21:19 AM Referred By: Shiela Contreras Confirmed By: Matty Pinto
--- NOTE | 2025-04-15 07:30 | Electrocardiogram Report ---
Test Reason : Blood Pressure : */* mmHG Vent. Rate : 65 BPM Atrial Rate : 65 BPM P-R Int : 154 ms QRS Dur : 68 ms QT Int : 430 ms P-R-T Axes : 61 34 -9 degrees QTcB Int : 447 ms Normal sinus rhythm Nonspecific T wave abnormality Abnormal ECG When compared with ECG of 12-Apr-2025 14:54, No significant change was found Confirmed by Matty Pinto ([id number]) on 04/15/2025 7:30:43 AM Referred By: Shiela Contreras Confirmed By: Matty Pinto
--- NOTE | 2025-04-15 07:34 | Hospitalist Progress Note ---
Date of Service April 15, 2025 Assessment & Plan (1) Chest pain, rule out acute myocardial infarction: (2) Troponin level elevated: (3) CAD (coronary artery disease): (4) Hyperlipidemia associated with type 2 diabetes mellitus: (5) Type 2 diabetes mellitus with gastroparesis: Plan In summary this is a 79-year-old female who presented with intermittent episodes of chest pain concerning for an acute coronary syndrome; this has since been ruled out; at this time she is pending placement in an acute rehabilitation facility by recommendation of PT/OT Chest pain, rule out ACS // Elevated Troponin the patient's initial symptoms began in the morning of 04/11 with intermittent symptoms since that time; there is a specific association with activity and improvement with rest; the patient is unable to specify if there is any similarities to her current symptomatology to her previous MIs; the patient has numerous risk factors and established comorbidities that increase her risk of a recurrent coronary event including type 2 diabetes mellitus, hyperlipidemia, hypertension; the patient's initial EKG is not concerning for any acute ischemic changes; ; administered 381 mg aspirin tablets in the emergency department to complete a full 324 mg dose; troponin trend 111.1, 117.2; MIKEY score 134 - vital signs every shift - Deescalate care to general medical/surgical floor - Nursing to contact attending if patient develops recurrent or new anginal equivalent - continue ASA 81 mg p.o. daily - Discontinue Lovenox - TTE revealed slightly progressed mitral regurgitation, not of hemodynamic significance Type 2 diabetes mellitus Most recent hemoglobin A1c of 10.9% obtained in 01/2025; goal preprandial glucose measure of 140 and all random checks 180; we will continue the patient's home basal regimen during the hospitalization with additional bolus insulin dosing as detailed below Continue Basaglar 20 units SQ daily Bolus dosing with correction factor 55 mg/dL/unit and carbohydrate ratio 18 g/unit Physical therapy evaluated the patient on 04/14, recommending acute rehab Admission and Anticipated Discharge Date Admission Date: April 12, 2025 Anticipated date of discharge: 04/17/25 Subjective Ms. Rosas is a 79-year-old female whose active medical conditions include hyperlipidemia, hypertension, coronary atherosclerotic disease, type 2 diabetes mellitus with multiple complications, unspecified dementia among other chronic medical conditions who presented to [facility] by EMS on 04/12 due to intermittent episodes of left-sided and left upper extremity pain without specific association to activity over the past 3 days. No acute overnight events; patient feels well today Review of Systems Review of Systems: Review of cardiovascular, pulmonary, constitutional, neurologic systems was unremarkable Physical Exam Physical Exam: General: Adult female in no acute distress Vital Signs: reviewed HEENT: pupils equally round reactive to light; extraocular motion intact; moist mucous membranes Neck: no appreciable jugular venous distention Pulmonary: symmetric unrestricted chest wall excursion; clear to auscultation bilaterally Cardiovascular: regular rate and rhythm without murmurs, rubs, or gallops; S1 and S2 normal; bilateral radial and posterior tibial pulse 2+ without associated lower extremity edema Neurologic: CN II-XII grossly intact; no discernible focal weakness nor paresthesias; oriented to self, place, but not time; upon a for initial evaluation the patient cannot recall why they even presented to the emergency department Results & Data Results & Data Vital Signs (Past 12 Hours) Vital Signs Temp Pulse Resp BP Pulse Ox O2 Del Method 04/14/25 22:57 37.0 C 98 H 18 143/82 H 95 Room Air 04/14/25 20:32 Room Air PG Care Time/CCT Total # of Minutes Spent Total Time Spent with Patient: Total time spent is greater than 50% in coordination of care (as documented) at patient's floor/unit and/or counseling patient: Coding Level of Care Code 86043 SUB INP/OBS CARE 09/09MIN Diagnoses Chest pain, rule out acute myocardial infarction R07.9 Troponin level elevated R79.89 Coronary artery disease involving [place] coronary artery of [place] heart, angina presence unspecified I25.10 Coronary Disease-Associated Artery/Lesion type: [place] artery [place] vs. transplanted heart: [place] heart Associated angina: angina presence unspecified Hyperlipidemia associated with type 2 diabetes mellitus E11.69; E78.5 Type 2 diabetes mellitus with gastroparesis E11.43; K31.84 (3) CAD (coronary artery disease) Coronary Disease-Associated Artery/Lesion type: [place] artery [place] vs. transplanted heart: [place] heart Associated angina: angina presence unspecified Qualified Code(s): I25.10 - Atherosclerotic heart disease of [place] coronary artery without angina pectoris
[2025-04-15] MEDS: LANTUS PER UNIT CHARGE SC SCH (10:35)
--- NOTE | 2025-04-16 07:13 | Hospitalist Progress Note ---
Date of Service April 16, 2025 Assessment & Plan (1) Chest pain, rule out acute myocardial infarction: (2) Troponin level elevated: (3) CAD (coronary artery disease): (4) Hyperlipidemia associated with type 2 diabetes mellitus: (5) Type 2 diabetes mellitus with gastroparesis: Plan In summary this is a 79-year-old female who presented with intermittent episodes of chest pain concerning for an acute coronary syndrome; this has since been ruled out; at this time she is pending placement in an acute rehabilitation facility by recommendation of PT/OT Chest pain, rule out ACS // Elevated Troponin the patient's initial symptoms began in the morning of 04/11 with intermittent symptoms since that time; there is a specific association with activity and improvement with rest; the patient is unable to specify if there is any similarities to her current symptomatology to her previous MIs; the patient has numerous risk factors and established comorbidities that increase her risk of a recurrent coronary event including type 2 diabetes mellitus, hyperlipidemia, hypertension; the patient's initial EKG is not concerning for any acute ischemic changes; ; administered 381 mg aspirin tablets in the emergency department to complete a full 324 mg dose; troponin trend 111.1, 117.2; MIKEY score 134 - vital signs every shift - Nursing to contact attending if patient develops recurrent or new anginal equivalent - continue ASA 81 mg p.o. daily - Discontinue Lovenox - TTE revealed slightly progressed mitral regurgitation, not of hemodynamic significance Type 2 diabetes mellitus Most recent hemoglobin A1c of 10.9% obtained in 01/2025; goal preprandial glucose measure of 140 and all random checks 180; we will continue the patient's home basal regimen during the hospitalization with additional bolus insulin dosing as detailed below Continue Basaglar 20 units SQ daily Bolus dosing with correction factor 55 mg/dL/unit and carbohydrate ratio 18 g/unit Physical therapy evaluated the patient on 04/14, recommending acute rehab; pending placement Admission and Anticipated Discharge Date Admission Date: April 12, 2025 Subjective Ms. Rosas is a 79-year-old female whose active medical conditions include hyperlipidemia, hypertension, coronary atherosclerotic disease, type 2 diabetes mellitus with multiple complications, unspecified dementia among other chronic medical conditions who presented to [facility] by EMS on 04/12 due to intermittent episodes of left-sided and left upper extremity pain without specific association to activity over the past 3 days. No acute overnight events; patient feels well today Review of Systems Review of Systems: Review of cardiovascular, pulmonary, constitutional, neurologic systems was unremarkable Physical Exam Physical Exam: General: Adult female in no acute distress Vital Signs: reviewed HEENT: pupils equally round reactive to light; extraocular motion intact; moist mucous membranes Pulmonary: symmetric unrestricted chest wall excursion; clear to auscultation bilaterally Cardiovascular: regular rate and rhythm without murmurs, rubs, or gallops; S1 and S2 normal; bilateral radial pulse 2+ Neurologic: CN II-XII grossly intact; no discernible focal weakness nor paresthesias; oriented to self, place, but not time Results & Data Results & Data Vital Signs (Past 12 Hours) Vital Signs Temp Pulse Resp BP Pulse Ox O2 Del Method 04/16/25 00:00 36.6 C 95 H 18 130/76 98 Room Air 04/15/25 19:45 Room Air PG Care Time/CCT Total # of Minutes Spent Total Time Spent with Patient: Total time spent is greater than 50% in coordination of care (as documented) at patient's floor/unit and/or counseling patient: Coding Level of Care Code 26748 SUB INP/OBS CARE 09/09MIN Diagnoses Chest pain, rule out acute myocardial infarction R07.9 Troponin level elevated R79.89 Coronary artery disease involving [place] coronary artery of [place] heart, angina presence unspecified I25.10 Coronary Disease-Associated Artery/Lesion type: [place] artery [place] vs. transplanted heart: [place] heart Associated angina: angina presence unspecified Hyperlipidemia associated with type 2 diabetes mellitus E11.69; E78.5 Type 2 diabetes mellitus with gastroparesis E11.43; K31.84 (3) CAD (coronary artery disease) Coronary Disease-Associated Artery/Lesion type: [place] artery [place] vs. transplanted heart: [place] heart Associated angina: angina presence unspecified Qualified Code(s): I25.10 - Atherosclerotic heart disease of [place] coronary artery without angina pectoris
--- NOTE | 2025-04-17 07:04 | Hospitalist Progress Note ---
Date of Service April 17, 2025 Assessment & Plan (1) Chest pain, rule out acute myocardial infarction: (2) Troponin level elevated: (3) CAD (coronary artery disease): (4) Hyperlipidemia associated with type 2 diabetes mellitus: (5) Type 2 diabetes mellitus with gastroparesis: Plan In summary this is a 79-year-old female who presented with intermittent episodes of chest pain concerning for an acute coronary syndrome; this has since been ruled out; at this time she is pending placement in an acute rehabilitation facility by recommendation of PT/OT Chest pain, rule out ACS // Elevated Troponin the patient's initial symptoms began in the morning of 04/11 with intermittent symptoms since that time; there is a specific association with activity and improvement with rest; the patient is unable to specify if there is any similarities to her current symptomatology to her previous MIs; the patient has numerous risk factors and established comorbidities that increase her risk of a recurrent coronary event including type 2 diabetes mellitus, hyperlipidemia, hypertension; the patient's initial EKG is not concerning for any acute ischemic changes; ; administered 381 mg aspirin tablets in the emergency department to complete a full 324 mg dose; troponin trend 111.1, 117.2; MIKEY score 134 - vital signs every shift - Nursing to contact attending if patient develops recurrent or new anginal equivalent - continue ASA 81 mg p.o. daily - TTE revealed slightly progressed mitral regurgitation, not of hemodynamic significance Type 2 diabetes mellitus Most recent hemoglobin A1c of 10.9% obtained in 01/2025; goal preprandial glucose measure of 140 and all random checks 180; we will continue the patient's home basal regimen during the hospitalization with additional bolus insulin dosing as detailed below Continue Basaglar 20 units SQ daily Bolus dosing with correction factor 55 mg/dL/unit and carbohydrate ratio 18 g/unit Medically stable for discharge at this time; referral sent to [facility] Care 04/17 Admission and Anticipated Discharge Date Admission Date: April 12, 2025 Anticipated date of discharge: 04/18/25 Subjective Ms. Rosas is a 79-year-old female whose active medical conditions include hyperlipidemia, hypertension, coronary atherosclerotic disease, type 2 diabetes mellitus with multiple complications, unspecified dementia among other chronic medical conditions who presented to [facility] by EMS on 04/12 due to intermittent episodes of left-sided and left upper extremity pain without specific association to activity over the past 3 days. No acute overnight events; patient feels well today Review of Systems Review of Systems: Review of cardiovascular, pulmonary, constitutional, neurologic systems was unremarkable Physical Exam Physical Exam: General: Adult female in no acute distress Vital Signs: reviewed HEENT: pupils equally round reactive to light; extraocular motion intact; moist mucous membranes Pulmonary: symmetric unrestricted chest wall excursion; clear to auscultation bilaterally Cardiovascular: regular rate and rhythm without murmurs, rubs, or gallops; S1 and S2 normal; bilateral radial pulse 2+ Neurologic: CN II-XII grossly intact; no discernible focal weakness nor paresthesias; oriented to self, place, but not time Results & Data Results & Data Vital Signs (Past 12 Hours) Vital Signs Temp Pulse Resp BP Pulse Ox O2 Del Method 04/16/25 23:10 37 C 96 H 16 159/85 H 94 Room Air 04/16/25 19:40 Room Air PG Care Time/CCT Total # of Minutes Spent Total Time Spent with Patient: Total time spent is greater than 50% in coordination of care (as documented) at patient's floor/unit and/or counseling patient: Coding Level of Care Code 66362 SUB INP/OBS CARE 09/09MIN Diagnoses Chest pain, rule out acute myocardial infarction R07.9 Troponin level elevated R79.89 Coronary artery disease involving [place] coronary artery of [place] heart, angina presence unspecified I25.10 Coronary Disease-Associated Artery/Lesion type: [place] artery [place] vs. transplanted heart: [place] heart Associated angina: angina presence unspecified Hyperlipidemia associated with type 2 diabetes mellitus E11.69; E78.5 Type 2 diabetes mellitus with gastroparesis E11.43; K31.84 (3) CAD (coronary artery disease) Coronary Disease-Associated Artery/Lesion type: [place] artery [place] vs. transplanted heart: [place] heart Associated angina: angina presence unspecified Qualified Code(s): I25.10 - Atherosclerotic heart disease of [place] coronary artery without angina pectoris
--- NOTE | 2025-04-17 13:05 | Pharmacy Report ---
Pharmacy Glycemic Short Note 2 - Date of Service April 17, 2025 - Glycemic Short BSG Results (Last 24 hours): 04/16/25 04/16/25 04/17/25 17:04 20:31 07:53 POC Glucose 120 H 148 H 177 H 04/17/25 11:49 POC Glucose 183 H OUTPATIENT ANTIDIABETIC REGIMEN: * Basaglar 20 units SQ Q AM * Novolog 2 units TID meals HbA1c: 10.9% on 02/01/25 ASSESSMENT: 04/17 * Patient received total of 29 units of insulin yesterday, of which 18 units were basal insulin * Fasting BSG 177 mg/dL - could consider titrating up basal tomorrow if still elevated * No change to CF/CR today 04/12 * Claire is a 79 year old female who was admitted last evening with chest pain. Pharmacy was consulted for glycemic management while she is admitted. * BSG on arrival was 126mg/dL. A weight based bolus insulin regimen with a stress between 1 and 2 was started at that time. * Fasting BSG was 243mg/dL this morning. Lantus 15 units SQ X 1 was ordered (patient reportedly is not compliant with her insulin at home so did not want to give full home dose initially) and bolus insulin parameters were tightened to a stress of 2. PLAN FOR INPATIENT GLYCEMIC CONTROL: * Hold outpatient diabetes medications * Basal insulin * Lantus 18 units daily * Bolus insulin * NovoLog per scale ACHS or Q6hrs while NPO * Goal Range: Low 120 mg/dL - High 160 mg/dL * Correction Factor: 40 mg/dL/unit * Nutritional / Prandial insulin per carb ratio of 1 unit per 7 grams CHO consumed
[2025-04-17 16:08] VITALS: RESP 18
[2025-04-18 08:24] VITALS: PULSE 99; TEMP 97.5; O2SAT 95
--- NOTE | 2025-04-18 13:55 | Discharge Summary ---
Discharge Summary Date of Service April 18, 2025 Principal Dx & Hospital Course #1 = Principal Diagnosis (1) Non-ST elevation [place] (NSTEMI): (2) Troponin level elevated: (3) CAD (coronary artery disease): (4) Hyperlipidemia associated with type 2 diabetes mellitus: (5) Type 2 diabetes mellitus with gastroparesis: Jazlyn Rosas is a 79 year old female with known coronary artery disease admitted to [facility] from April 12 to April 18 2025 due to chest pain. Troponin was only mildly elevated only, chest pain resolved, EKG and echocardiogram was unchanged and with previous cardiac catheterization with poor targets for coronary artery surgical revascularization this heart attack was mild and treated medically. She was given Lovenox during her inpatient stay. She will be discharged on dual antiplatelet therapy adding clopidogrel to her aspirin and recommend following up with cardiology for optimization of your medications on discharge. Her stay was prolonged due to search for physical rehabilitation however given her outstanding balances at [facility] and the patient declined other placements wishing to return home with home health. Her physical ability has improved while in hospital and the patient appears to have capacity to make this decision. Notes For Next Care Provider Follow up with cardiology Medication Changes From Visit Clopidogrel added for dual antiplatelet therapy Admission HPI Per Admitting Provider Ms. vasques is a 79-year-old female whose active medical conditions include hyperlipidemia, hypertension, coronary atherosclerotic disease, type 2 diabetes mellitus with multiple complications, unspecified dementia among other chronic medical conditions who presented to [facility] by EMS on 04/12 due to intermittent episodes of left-sided and left upper extremity pain without specific association to activity over the past 3 days. The patient notes that this began while at rest, its described as a heavy aching sensation beginning in the left anterior chest wall extending into the left shoulder and down to the level of their left elbow. The patient states this is different from the previous episodes of chest pain at which point they had a stent placed, at that time their chest pain was limited to exclusively the chest and not involving the left upper extremity. they deny episodes of presyncope or syncope, palpitations, lightheadedness, nausea, vomiting, diaphoresis. over the past 3 days the patient has noted some increased exertional fatigue, however this is not associated with significant dyspnea. Discharge Exam Constitutional WD/WN, vitals as above Respiratory normal respiratory effort, lungs clear to auscultation Cardiovascular RRR, no murmur, no edema Discharge Plan Discharge Items Patient Disposition: Home - Home Health Services Reason For Visit: CHEST PAIN, ACS RULE OUT Discharge Diagnosis: Mild NSTEMI (heart attack) Condition on Discharge: Good Activity: Resume your previous activity Non-emergency contact: Primary Care Provider and Poly Operator Call non-emergency contact if: you have any medication questions and your symptoms worsen Follow-up/Referrals: Joaquin Lau Jr, MD, FACC [Physician] - (The office will call you to schedule a hosptial follow up appointment.) Shiela Contreras MD [Primary Care Provider] - 04/23/25 3:00 pm (Hospital follow up on Wednesday, April 23 at 3 pm.) Diet: Carb Consistent or DM2 and Heart Healthy Addtl Attending Provider Instructions: You were admitted to [facility] from April 12 to April 18 2025 due to chest pain. Troponin was only mild elevation only, chest pain resolved, EKG and echocardiogram was unchanged with previous cardiac catheterization with poor targets for coronary artery surgical revascularization this heart attack was mild and treated medically. We will add clopidogrel to your aspirin and recommend following up with cardiology for optimization of your medications on discharge. Pending Studies at Discharge: No Stand-Alone Forms: My [facility], Smoking Cessation Medications and DC Order Prescriptions: New clopidogrel 75 mg Tablet 75 mg PO QAM Qty: 30 0RF Continued folic acid 1 mg tablet 1 mg PO QAM Qty: 90 3RF famotidine 20 mg tablet 20 mg PO BID Qty: 180 3RF gabapentin 100 mg capsule 100 mg PO TID Qty: 90 11RF buspirone 10 mg tablet 10 mg PO BID Qty: 180 3RF isosorbide mononitrate 60 mg tablet extended release 24 hr 60 mg PO QAM Qty: 60 3RF pantoprazole 40 mg tablet,delayed release (DR/EC) 40 mg PO BID Qty: 90 3RF ergocalciferol (vitamin D2) [Vitamin D2] 1,250 mcg (50,000 unit) capsule 50,000 unit PO WK Qty: 12 1RF Rx Instructions: MONDAYS (DME) Lift Chair Misc See Rx Instructions .Route Qty: 1 0RF Rx Instructions: As directed aspirin 81 mg tablet,delayed release (DR/EC) 81 mg PO QAM levothyroxine 75 mcg tablet 75 mcg PO DAILY Qty: 30 5RF Rx Instructions: Take one tablet by mouth every other day for the first week, take every day thereafter. Take 30-45 minutes before any other oral intake. insulin aspart U-100 [Novolog FlexPen U-100 Insulin] 100 unit/mL (3 mL) insulin pen 2 unit subcut TID Qty: 15 5RF Rx Instructions: Inject 2 units 10-15 minutes before meals. magnesium oxide 400 mg (241.3 mg magnesium) tablet 400 mg PO QAM Qty: 30 11RF Trelegy Ellipta 100-62.5-25 mcg blister with device 1 inh inhalation QAM Qty: 60 11RF Rx Instructions: rinse mouth thoroughly after each dose. duloxetine 60 mg capsule,delayed release(DR/EC) 60 mg PO QAM Qty: 90 3RF metoprolol succinate 50 mg tablet extended release 24 hr 50 mg PO QAM Qty: 90 3RF (DME) blood-glucose meter [Accu-Chek Guide Glucose Meter] Misc See Rx Instructions .Route Qty: 1 0RF Rx Instructions: use to check blood sugar 1x daily (DME) Accu-Chek Guide test strips Strip See Rx Instructions .Route Qty: 50 11RF Rx Instructions: use to check blood sugar 1x daily diclofenac sodium 1 % gel 4 g topical QID PRN (Reason: Pain) Qty: 100 2RF Rx Instructions: apply to a single knee, shoulder, ankle, etc ferrous sulfate 325 mg (65 mg iron) tablet 325 mg PO QAM Rx Instructions: Please include in adherence packaging. Take at noon time rosuvastatin 20 mg tablet 20 mg PO QAM Rx Instructions: include in monthly pill packaging mecobalamin (vitamin B12) 1,000 mcg tablet,chewable 1,000 mcg PO QAM insulin glargine [Basaglar KwikPen U-100 Insulin] 100 unit/mL (3 mL) insulin pen 20 unit SUBCUT QAM Rx Instructions: Inject 20 units once a day in the morning. Discharge Orders: Discharge Order (Routine); Ordered 04/18/25 Ordered By: Roger Archer Admission Data Admit Date/Time: 04/12/25 16:49 Attending Provider: Roger Archer Admit Provider: Josh Pendleton Primary Care Provider: Shiela Contreras Other Providers: [facility]; [facility] Other Interventions: Discharge Summary Assessment (RN) Last Done: 04/18/25 14:51 Hospital Stay Data Pending Results Patient Have Any Pending Studies at Discharge: No Discharge Instructions Given to Patient (Per Discharging Provider) You were admitted to [facility] from April 12 to April 18 2025 due to chest pain. Troponin was only mild elevation only, chest pain resolved, EKG and echocardiogram was unchanged with previous cardiac catheterization with poor targets for coronary artery surgical revascularization this heart attack was mild and treated medically. We will add clopidogrel to your aspirin and recommend following up with cardiology for optimization of your medications on discharge. Total Time Total Time Spent Total Time Spent (In Minutes): 40 Coding Level of Care Code 48296 INP/OBS DISCH >30 MIN Diagnoses Non-ST elevation [place] (NSTEMI) I21.4 Troponin level elevated R79.89 Coronary artery disease involving [place] coronary artery of [place] heart, angina presence unspecified I25.10 Associated angina: angina presence unspecified Coronary Disease-Associated Artery/Lesion type: [place] artery [place] vs. transplanted heart: [place] heart Hyperlipidemia associated with type 2 diabetes mellitus E11.69; E78.5 Type 2 diabetes mellitus with gastroparesis E11.43; K31.84 Home Health Attestation I certify that this patient is under my care and that I, or a physicians advertising assistant working with me, had a face to-face encounter that meets the home health [id number] encounter requirements with this patient. The encounter with the patient was in whole, or in part, for the following medical condition, which is the primary reason for home health care (list medical condition): I certify that, based on my findings, the following services are medically nec essruby home health services: My clinical findings support the need for the above services because: OT Assess ADL Status and Restore Function w ADLs PT Eval for Safety, Gait Training, Assistive Devices Skilled Nsg Assessment Further, I certify that my clinical findings support that this patient is homebound (i.e. absences from home require considerable and taxing effort and are for medical reasons or anglican services or infrequently or of short duration when for other reasons) because: Transportation Assistance/Unable to Leave Home Unassisted Certification for Home Health Services: Based on the above findings, I certify that this patient is confined to the home and needs intermittent senior care care, physical therapy and/or speech therapy or continues to need occupational therapy. The patient is under my care, and I have initiated the establishment of the plan of care. This patient will be followed by a physician who will periodically review the plan of care.
[2025-04-18 14:52] VITALS: BP 114/73
[2025-04-18] MEDS: METOPROLOL SUCC 50MG EXT REL TAB PO STA (15:38)
[2025-04-18] MEDS: CLOPIDOGREL BISULFATE 75 MG TAB PO SCH (15:38)
[2025-04-18] MEDS ORDERED: busPIRone 5 MG TAB PO SCH (21:00)
[2025-04-18] MEDS ORDERED: FAMOTIDINE 20 MG TAB PO SCH (21:00)
[2025-04-19] MEDS ORDERED: METOPROLOL SUCC 50MG EXT REL TAB PO SCH (09:00)
[2025-04-19] MEDS ORDERED: FOLIC ACID 1 MG TAB PO SCH (09:00)
== END 2025-04-18 16:19 | disposition home health service (06) | DRG 282 ==
LOC: SUATTDRO → ED 14:44 → INTOOBSV 16:49 → SUATTDRO 16:49 → EDINP 16:49 → 2W 19:40

== ENCOUNTER 2025-04-28 06:41 | Inpatient (IN) ==
[2025-04-28] MEDS: NITROGLYCERIN 2% OINTMENT 30GM TUBE EXT STA (06:52)
[2025-04-28] MEDS: NITROGLYCERIN 2% OINTMENT 30GM TUBE EXT ONE (06:52)
--- NOTE | 2025-04-28 06:53 | Emergency Department Note ---
Impression & Plan Acute respiratory distress, CHF (congestive heart failure), Acute hyperglycemia, History of AR (myocardial infarction), Elevated brain natriuretic peptide (BNP) level ED Provider Note NAME: SHIRA CUNNINGHAM AGE: 80 SEX: F : 1945 ARRIVES VIA: Ambulance INFORMANT: [Patient][ems] ED PROVIDER(S): [Oliver Mccullough MD] CHIEF COMPLAINT: Shortness of breath HISTORY OF PRESENT ILLNESS: The patient is a 80-year-old female who was discharged from our facility 10 days ago after a non-STEMI. She was well yesterday. This morning, at 5 AM, 1 hour and 45 minutes ago, she awoke quite short of breath. She could not catch her breath. No chest pain. EMS was summoned to the house. She seemed in significant distress and could barely speak. On the way to the hospital, she was given 5 sublingual nitroglycerin and was placed on CPAP. She arrives feeling improved. She believes the CPAP has helped the most. There has been no cough or congestion. No vomiting or diarrhea. She does not believe that she was prescribed diuretics upon discharge from our hospital. The patient states that the EMS crew told her they thought she was fluid overloaded. PMHx/PSHx/Social Hx: See Below PHYSICAL EXAM: GENERAL: Patient is in no acute distress. HEENT: No acute trauma, normocephalic atraumatic, mucous membranes moist, no nasal congestion. NECK: No stridor, no adenopathy, no meningismus, trachea is midline. LUNGS: No obvious current respiratory distress. She does have rhonchi bilaterally. HEART: Heart tones cannot be heard because of the overriding lung sounds. ABDOMEN: Soft, nontender, no peritonitis. EXTREMITIES: No cyanosis, full range of motion of all the joints without pain or difficulty. NEUROLOGIC: Oriented x 3, no acute motor or sensory deficits, no focal weakness. SKIN: No jaundice, no diaphoresis. DIFFERENTIAL DIAGNOSIS: CHF, bronchitis or pneumonia, AR, anemia, renal or liver failure, among others. EMERGENCY DEPARTMENT PROCEDURES: MEDICAL DECISION MAKING: There is no leukocytosis. A mild anemia was seen. There was a normal platelet count. No coagulopathy. No bandemia. VBG did show an acidosis without significant CO2 retention. There was evidence for some renal insufficiency, this appears chronic when looking back at previous testing. Blood sugar was high at over 400. Lactic acid level was not elevated making severe sepsis less likely. There was no concerning liver enzyme elevation. BNP was elevated consistent with CHF. Chest x-ray shows increased parenchymal congestion consistent with CHF or potentially, pneumonia. ECG showed a sinus tachycardia with some T wave inversions, no ST elevation. Cardiac enzyme testing x 1 was slightly elevated at 14.2. This troponin elevation could be secondary to cardiac injury or mismatch given her dyspnea. Urinalysis does not show findings of infection. Respiratory BioFire was negative. The patient had presented to to EMS quite short of breath. She was aggressively managed when she arrived. She was placed on BiPAP. She was given 2 inches of nitroglycerin paste. She was given 40 mg of IV Lasix and a Bliss catheter was placed. She did receive IV Unasyn as empiric antibiotic coverage. The patient has shown marked improvement with the above interventions. She is currently resting comfortably, no distress. The patient is going to require a hospital stay and further workup/monitoring. I suspect her presentation is secondary to acute flash pulmonary edema. Certainly, pneumonia is a consideration and further workup/care is indicated. With regard to the higher blood sugar, she is currently asymptomatic and the higher sugar may in fact be situational. This can be followed closely and insulin given as needed. I did speak with the patient and family preservation caseworker. The on-call hospitalist was consulted. Prior/Outside records/notes reviewed: Discharge summary note from 04/18/2025 describing her presentation, hospital course and discharge plan. ECG per my interpretation: Indication was shortness of breath. ECG shows a sinus tachycardia with PVCs. The rate was 101. There were T wave inversions with some ST depression seen across the inferior and lateral leads. No acute ST elevation. QTc was 453. Compared to an ECG from 12 April 2025, the ST and T wave changes are much more pronounced. The rate is increased. Continuous Cardiac Monitoring per my interpretation: An order was placed for continuous cardiac monitoring. The monitor shows a rate of 99 with normal sinus rhythm. Imaging/x-ray results per my interpretation: Chest x-ray shows what appears to be fluid overload, worse on the right. No one-sided focal pneumonia. Chronic Medical/Social conditions affecting care: Recent AR, advanced age. Care/Management discussed with: Case management, the on-call hospitalist. Level of care consideration(s): After review of the information above and other included data: --I believe the patient requires escalation of care to admission Critical Care Note: I have personally spent 48 minutes of critical care time in the direct management of this patient. This includes bedside care, interpretation of diagnostic studies, and testing, discussion with consultants, patient, and family members, and other required patient management activities. This 48 minutes is in excess of all separately billable procedures. 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) Hyperlipidemia associated with type 2 diabetes mellitus (Chronic) Troponin level elevated (Acute) Chest pain, rule out acute myocardial infarction (Acute) Hypothyroidism (Chronic) Diabetes mellitus with hyperglycemia (Chronic) Urinary incontinence (Chronic) Stenosis of anal canal (Chronic) Dementia (Chronic) Chronic constipation with overflow (Chronic) Dysphagia (Chronic) Background diabetic retinopathy associated with type 2 diabetes mellitus (Chronic) Cervical spinal stenosis (Chronic) Hypertension (Chronic) 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) Vitamin D deficiency (Chronic) CKD (chronic kidney disease), stage III (Chronic) Folic acid deficiency (Chronic) Vitamin B12 deficiency (Chronic) Arthritis of knee, left (Chronic) Depression Lumbar spondylosis Uncontrolled type 2 diabetes mellitus with neurologic complication, with long- term current use of insulin GERD (gastroesophageal reflux disease) Mckeon esophagus (Chronic) CAD (coronary artery disease) (Chronic) s/p stents to RCA November 2005; s/p stents to LAD, LCx in January 2006; s/p stents to RCA in 08/2006 IBS (irritable bowel syndrome) Anxiety Medical History Stercoral colitis Acute UTI Esophageal ulcer without bleeding hx Hiatal hernia Hemorrhoids Esophageal spasm hx- pt not aware Edema mild, right LE History of COVID-19 2020 - resolved Acute non-ST elevation myocardial infarction (NSTEMI) 11/28/2021 had AR medical management and follow with dr kaylen jeter 02/09/2022 GERD without esophagitis Myocardial Infarction AR- November 2005, January 2006, Aug 2006 3 total within an 8 month span--HX OF CATH 2012 [facility] [place], FOLLOWS WITH DR. JULES Surgical History Status post trigger finger release S/P coronary artery stent placement History of total hysterectomy with bilateral salpingo-oophorectomy (BSO) History of lumbar spinal fusion History of total right knee replacement (TKR) History of esophageal dilatation History of colonoscopy with polypectomy History of esophagogastroduodenoscopy (EGD) History of tooth extraction History of cholecystectomy History of cataract surgery History of cardiac cath Family History Brother Myocardial infarction Anxiety Heart disease Hypertension Cancer Sister Family history of reaction to anesthesia difficulty waking Hypertension Heart disease Myocardial infarction Anxiety Cancer Diabetes Father Anxiety Heart disease Hypertension Mother Anxiety Hypertension Heart disease Unknown Cancer skin, GI Denies family history of Ovarian cancer Prostate cancer Breast cancer Colorectal cancer Stroke Social History Smoking Status: Never smoker Tobacco Type: Cigarettes Age Started Using Tobacco: 18; Age Quit Using Tobacco: 57; packs per day: 0.5; Second Hand Exposure: No; Do You Dip or Chew Tobacco: No; Hx Alcohol Use: No Hx Substance Use: No Preferred Language: Kyrgyz Communication Ability: Effective Visual Impairment: Limited Hearing Ability: Normal Speech Therapy Teacher Required: No Beliefs That Will Affect Care: None marital status: / Current Living Situation: Alone Current Living Situation Comment: Pt currently lives home alone, but is concerned that she needs help at home current occupational status: retired and disabled How many Children do You have: 3 Feels Safe at Home: Yes Childhood Exposure to Second-Hand Smoke: No Diet: regular caffeine: Yes (drinks coffee, diet pepsi occasionally ) during the past year weight has: remained stable Dental Care, Regularly: No Physical Activity Frequency: Does not Exercise Seatbelt Use: always Sunscreen Use: No Assistive Devices: Walker Allergies Allergies Allergy/AdvReac Type Severity Reaction Status Date / Time cephalexin Allergy Intermediate Rash and Verified 04/23/25 14:51 itchiness Cephalosporins Allergy Intermediate Rash and Verified 04/23/25 14:51 itchiness Sulfa (Sulfonamide Allergy Intermediate Hives Verified 04/23/25 14:51 Antibiotics) Home Meds Home Medications Medication Instructions Recorded Confirmed aspirin 81 mg tablet,delayed 81 mg PO QAM 11/18/23 04/28/25 release ferrous sulfate 325 mg (65 mg 325 mg PO QAM 10/30/24 04/28/25 iron) tablet mecobalamin (vitamin B12) 1,000 1,000 mcg PO QAM 10/30/24 04/28/25 mcg chewable tablet rosuvastatin 20 mg tablet 20 mg PO QAM 10/30/24 04/28/25 insulin glargine 100 unit/mL (3 20 unit subcut QAM for sugar 04/12/25 04/28/25 mL) subcutaneous pen ([employer] Networks[employer] control inject at meal times. KwikPen U-100 Insulin) Previous Rx's Medication Instructions Recorded diclofenac sodium 1 % topical gel 4 g topical QID PRN Pain #100 grams 07/09/23 Lift Chair #1 ea 09/06/23 folic acid 1 mg tablet 1 mg PO QAM #90 tabs 08/10/24 famotidine 20 mg tablet 20 mg PO BID #180 tabs 09/12/24 gabapentin 100 mg capsule 100 mg PO TID #90 caps 09/28/24 duloxetine 60 mg capsule,delayed 60 mg PO QAM #90 caps 10/05/24 release fluticasone fur. 100 mcg-umeclid 1 inh inhalation QAM #60 ea 10/05/24 62.5 mcg-vilant 25 mcg inhalat.powder (Trelegy Ellipta) metoprolol succinate 50 mg 50 mg PO QAM #90 tabs 10/05/24 tablet,extended release 24 hr buspirone 10 mg tablet 10 mg PO BID #180 tabs 12/26/24 magnesium oxide 400 mg (241.3 mg 400 mg PO QAM #30 tabs 01/05/25 magnesium) tablet isosorbide mononitrate 60 mg 60 mg PO QAM #60 tabs 02/14/25 tablet,extended release 24 hr pantoprazole 40 mg tablet,delayed 40 mg PO BID #90 tabs 02/14/25 release blood sugar diagnostic (Accu-Chek #50 ea 02/23/25 Guide test strips) blood-glucose meter (Accu-Chek #1 ea 02/23/25 Guide Glucose Meter) insulin aspart U-100 100 unit/mL 2 unit (0.02 mL) subcut TID #15 mL 03/21/25 (3 mL) subcutaneous pen (Novolog FlexPen U-100 Insulin aspart) levothyroxine 75 mcg tablet 75 mcg PO DAILY #30 tabs 03/21/25 ergocalciferol (vitamin D2) 1,250 50,000 unit PO WK #12 caps 04/17/25 mcg (50,000 unit) capsule (Vitamin D2) clopidogrel 75 mg tablet 75 mg PO QAM #30 tabs 04/18/25 Results & Data (ED) Vital Signs Vital Signs - 24 hr 04/28/25 06:45 04/28/25 06:45 04/28/25 06:45 Temperature 36.6 C Temperature Source Axillary Pulse Rate 100 H 107 H Pulse Rate [Apical] Pulse Rate from SpO2 Sensor Respiratory Rate 26 H 29 H Respiratory Effort / Characteristics Spontaneous Short of Breath Spontaneous Labored Retracting Short of Breath Respiratory Depth Retractive Respiratory Pattern Tachypnea Tachypnea Blood Pressure 143/115 H Blood Pressure [Right Arm] Blood Pressure Mean 124 Blood Pressure Mean [Right Arm] Blood Pressure Position Semi-fowlers Blood Pressure Position [Right Arm] Pulse Oximetry 99 99 Oxygen Delivery Method BiPAP BiPAP Fraction of Inspired Oxygen 40 SaO2/FiO2 Ratio Sepsis Recent Fever Within 48 Hours No Sepsis New/Unexplained Change in Mental Status No Sepsis Action Taken by Nursing No Action Required 04/28/25 06:52 04/28/25 06:54 04/28/25 07:30 Temperature Temperature Source Pulse Rate Pulse Rate [Apical] 101 H Pulse Rate from SpO2 Sensor Respiratory Rate 31 H Respiratory Effort / Characteristics Respiratory Depth Respiratory Pattern Blood Pressure 118/79 Blood Pressure [Right Arm] 128/87 Blood Pressure Mean 95 Blood Pressure Mean [Right Arm] 100 Blood Pressure Position Blood Pressure Position [Right Arm] Semi-fowlers Pulse Oximetry 98 98 Oxygen Delivery Method BiPAP BiPAP Fraction of Inspired Oxygen 40 SaO2/FiO2 Ratio 245 Sepsis Recent Fever Within 48 Hours Sepsis New/Unexplained Change in Mental Status Sepsis Action Taken by Nursing 04/28/25 07:30 04/28/25 07:39 04/28/25 07:42 Temperature Temperature Source Pulse Rate Pulse Rate [Apical] Pulse Rate from SpO2 Sensor 86 85 Respiratory Rate Respiratory Effort / Characteristics Respiratory Depth Respiratory Pattern Blood Pressure 118/79 Blood Pressure [Right Arm] Blood Pressure Mean 95 Blood Pressure Mean [Right Arm] Blood Pressure Position Blood Pressure Position [Right Arm] Pulse Oximetry 100 100 Oxygen Delivery Method Fraction of Inspired Oxygen SaO2/FiO2 Ratio Sepsis Recent Fever Within 48 Hours Sepsis New/Unexplained Change in Mental Status Sepsis Action Taken by Nursing 04/28/25 07:49 04/28/25 07:49 04/28/25 07:54 Temperature Temperature Source Pulse Rate 86 Pulse Rate [Apical] Pulse Rate from SpO2 Sensor 87 Respiratory Rate 20 Respiratory Effort / Characteristics Respiratory Depth Respiratory Pattern Blood Pressure 115/79 115/79 Blood Pressure [Right Arm] Blood Pressure Mean 102 102 Blood Pressure Mean [Right Arm] Blood Pressure Position Blood Pressure Position [Right Arm] Pulse Oximetry 97 Oxygen Delivery Method Fraction of Inspired Oxygen SaO2/FiO2 Ratio Sepsis Recent Fever Within 48 Hours Sepsis New/Unexplained Change in Mental Status Sepsis Action Taken by Nursing 04/28/25 07:55 04/28/25 08:12 Temperature Temperature Source Pulse Rate 78 Pulse Rate [Apical] Pulse Rate from SpO2 Sensor Respiratory Rate Respiratory Effort / Characteristics Respiratory Depth Respiratory Pattern Blood Pressure Blood Pressure [Right Arm] Blood Pressure Mean Blood Pressure Mean [Right Arm] Blood Pressure Position Blood Pressure Position [Right Arm] Pulse Oximetry 97 Oxygen Delivery Method BiPAP Fraction of Inspired Oxygen SaO2/FiO2 Ratio Sepsis Recent Fever Within 48 Hours Sepsis New/Unexplained Change in Mental Status Sepsis Action Taken by Correction Medications Current Medication List: was personally reviewed by me Laboratory Data Attestation: I reviewed the patient's lab results. 04/28/25 06:49 04/28/25 06:49 Lab Results 04/28/25 04/28/25 04/28/25 Range/Units 06:49 06:53 07:11 WBC 8.33 (4.8-10.8) K/ul RBC 4.30 (4.20-5.40) M/uL Hgb 11.2 L (12.0-16.0) g/dl Hct 36.1 L (37.0-47.0) % MCV 84.0 (80.0-100.0) fL MCH 26.0 (25.0-34.0) pg MCHC 31.0 L (32.0-36.0) g/dL RDW Std Deviation 45.1 (36.4-46.3) fL RDW Coeff of Tino 14.9 H (11.5-14.5) % Plt Count 368 (130-400) K/uL MPV 10.0 (9.4-12.4) fL Immature Gran % (Auto) 0.7 % Neut % (Auto) 45.7 % Lymph % (Auto) 43.1 % Bryan % (Auto) 6.4 % Eos % (Auto) 3.1 % Baso % (Auto) 1.0 % Neut # (Auto) 3.81 (1.40-6.50) K/uL Lymph # (Auto) 3.59 H (1.20-3.40) K/uL Bryan # (Auto) 0.53 (0.11-0.59) K/uL Eos # (Auto) 0.26 (0.00-0.50) K/uL Baso # (Auto) 0.08 (0.00-0.20) K/uL Immature Gran # (Auto) 0.06 (0.01-0.20) K/uL PT 10.3 (9.0-12.0) Seconds INR 0.9 (0.9-1.1) APTT 28 (21-31) Seconds PTT Ratio 1.0 ABG pH Cancelled ABG pCO2 Cancelled ABG pO2 Cancelled ABG HCO3 Cancelled ABG O2 Saturation Cancelled ABG Base Excess Cancelled Felix Test Cancelled VBG pH 7.18 L (7.36-7.41) VBG pCO2 46 (38-50) mmHg VBG pO2 54 mmHg VBG HCO3 17 mmol/L VBG O2 Saturation 82.1 % VBG Base Excess -10.6 mEq/L Barometric Pressure Cancelled Oxygen Given Cancelled Sodium 136 (136-145) mmol/L Potassium 4.9 (3.5-5.1) mmol/L Chloride 104 (98-107) mmol/L Carbon Dioxide 23 (21-32) mmol/L Anion Gap 9 (3-11) BUN 34 H (6-23) mg/dl Creatinine 1.44 H (0.6-1.2) mg/dl Est Cr Clr Drug Dosing 31.8 ml/min eGFR 37.23 BUN/Creatinine Ratio 23.6 H (10-20) Glucose 430 H* (70-99(Fasting)) mg/dl POC Glucose (70-99) mg/dl Lactate (0.4-2.0) mmol/L Calcium 8.8 (8.6-10.3) mg/dl Magnesium 2.1 (1.7-2.4) mg/dl Total Bilirubin 0.3 (0.2-1.0) mg/dl AST 20 (13-39) U/L ALT 23 (7-52) U/L Alkaline Phosphatase 87 (34-104) U/L Troponin I High Sens 14.2 H (0-14) pg/ml B-Natriuretic Peptide 317 H (0-100) pg/ml Total Protein 7.2 (6.0-8.3) gm/dl Albumin 3.6 (3.4-5.0) gm/dl Globulin 3.6 (2.5-4.0) gm/dl Albumin/Globulin Ratio 1.0 (0.9-2) Urine Color Yellow Urine Appearance Clear (Clear) Urine pH 6.5 (4.5-7.5) Ur Specific [place] 1.013 (1.000-1.030) Urine Protein 1+ H (Negative) Urine Glucose (UA) 1+ H (Negative) Urine Ketones Negative (Negative) Urine Blood Negative (Negative) Urine Nitrite Negative (Negative) Urine Bilirubin Negative (Negative) Urine Urobilinogen Negative (Negative) Ur Leukocyte Esterase Negative (Negative) Urine WBC (Auto) 0-5 (0-5) /hpf Urine RBC (Auto) 0-2 (0-2) /hpf U Hyaline Cast (Auto) 0-2 (0-2) /lpf U Epithel Cells (Auto) 0-2 (0-2) /hpf Urine Bacteria (Auto) None Seen (None Seen) Urine Comment Adenovirus (PCR) Not Detected (NotDetected) B. pertussis DNA (PCR) Not Detected (NotDetected) B.parapertussis DNA PCR Not Detected (NotDetected) C. pneumoniae DNA (PCR) Not Detected (NotDetected) Coronavirus OC43 (PCR) Not Detected (NotDetected) Coronavirus HKU1 (PCR) Not Detected (NotDetected) Coronavirus 229E (PCR) Not Detected (NotDetected) SARS-CoV-2 (PCR) Not Detected (NotDetected) Coronavirus NL63 (PCR) Not Detected (NotDetected) Human Metapneumovir PCR Not Detected (NotDetected) Influenza Type A (PCR) Not Detected (NotDetected) Influenza Type B (PCR) Not Detected (NotDetected) M. pneumoniae (PCR) Not Detected (NotDetected) Parainfluenza 1 (PCR) Not Detected (NotDetected) Parainfluenza 2 (PCR) Not Detected (NotDetected) Parainfluenza 3 (PCR) Not Detected (NotDetected) Parainfluenza 4 (PCR) Not Detected (NotDetected) RSV (PCR) Not Detected (NotDetected) Entero/Rhino (PCR) Not Detected (NotDetected) 04/28/25 04/28/25 Range/Units 07:42 08:18 WBC (4.8-10.8) K/ul RBC (4.20-5.40) M/uL Hgb (12.0-16.0) g/dl Hct (37.0-47.0) % MCV (80.0-100.0) fL MCH (25.0-34.0) pg MCHC (32.0-36.0) g/dL RDW Std Deviation (36.4-46.3) fL RDW Coeff of Tino (11.5-14.5) % Plt Count (130-400) K/uL MPV (9.4-12.4) fL Immature Gran % (Auto) % Neut % (Auto) % Lymph % (Auto) % Bryan % (Auto) % Eos % (Auto) % Baso % (Auto) % Neut # (Auto) (1.40-6.50) K/uL Lymph # (Auto) (1.20-3.40) K/uL Bryan # (Auto) (0.11-0.59) K/uL Eos # (Auto) (0.00-0.50) K/uL Baso # (Auto) (0.00-0.20) K/uL Immature Gran # (Auto) (0.01-0.20) K/uL PT (9.0-12.0) Seconds INR (0.9-1.1) APTT (21-31) Seconds PTT Ratio ABG pH ABG pCO2 ABG pO2 ABG HCO3 ABG O2 Saturation ABG Base Excess Felix Test VBG pH (7.36-7.41) VBG pCO2 (38-50) mmHg VBG pO2 mmHg VBG HCO3 mmol/L VBG O2 Saturation % VBG Base Excess mEq/L Barometric Pressure Oxygen Given Sodium (136-145) mmol/L Potassium (3.5-5.1) mmol/L Chloride (98-107) mmol/L Carbon Dioxide (21-32) mmol/L Anion Gap (3-11) BUN (6-23) mg/dl Creatinine (0.6-1.2) mg/dl Est Cr Clr Drug Dosing ml/min eGFR BUN/Creatinine Ratio (10-20) Glucose (70-99(Fasting)) mg/dl POC Glucose 414 H* (70-99) mg/dl Lactate 1.8 (0.4-2.0) mmol/L Calcium (8.6-10.3) mg/dl Magnesium (1.7-2.4) mg/dl Total Bilirubin (0.2-1.0) mg/dl AST (13-39) U/L ALT (7-52) U/L Alkaline Phosphatase (34-104) U/L Troponin I High Sens (0-14) pg/ml B-Natriuretic Peptide (0-100) pg/ml Total Protein (6.0-8.3) gm/dl Albumin (3.4-5.0) gm/dl Globulin (2.5-4.0) gm/dl Albumin/Globulin Ratio (0.9-2) Urine Color Urine Appearance (Clear) Urine pH (4.5-7.5) Ur Specific [place] (1.000-1.030) Urine Protein (Negative) Urine Glucose (UA) (Negative) Urine Ketones (Negative) Urine Blood (Negative) Urine Nitrite (Negative) Urine Bilirubin (Negative) Urine Urobilinogen (Negative) Ur Leukocyte Esterase (Negative) Urine WBC (Auto) (0-5) /hpf Urine RBC (Auto) (0-2) /hpf U Hyaline Cast (Auto) (0-2) /lpf U Epithel Cells (Auto) (0-2) /hpf Urine Bacteria (Auto) (None Seen) Urine Comment Adenovirus (PCR) (NotDetected) B. pertussis DNA (PCR) (NotDetected) B.parapertussis DNA PCR (NotDetected) C. pneumoniae DNA (PCR) (NotDetected) Coronavirus OC43 (PCR) (NotDetected) Coronavirus HKU1 (PCR) (NotDetected) Coronavirus 229E (PCR) (NotDetected) SARS-CoV-2 (PCR) (NotDetected) Coronavirus NL63 (PCR) (NotDetected) Human Metapneumovir PCR (NotDetected) Influenza Type A (PCR) (NotDetected) Influenza Type B (PCR) (NotDetected) M. pneumoniae (PCR) (NotDetected) Parainfluenza 1 (PCR) (NotDetected) Parainfluenza 2 (PCR) (NotDetected) Parainfluenza 3 (PCR) (NotDetected) Parainfluenza 4 (PCR) (NotDetected) RSV (PCR) (NotDetected) Entero/Rhino (PCR) (NotDetected) Administered Medications Discontinued Medications Furosemide (Furosemide 40 Mg/4 Ml Vial) 40 mg IV ONE ONE Stop: 04/28/25 07:01 Last Admin: 04/28/25 07:12 Dose: 40 mg Documented By: ECS Ampicillin Sodium/Sulbactam Sodium (Unasyn) 3,000 mg in 100 mls @ 200 mls/hr IV NOW STA Stop: 04/28/25 08:17 Last Admin: 04/28/25 07:56 Dose: 200 mls/hr Documented By: ML Nitroglycerin (Nitroglycerin 2% Ointment 30gm Tube) 2 inch EXT NOW STA Stop: 04/28/25 06:47 Last Admin: 04/28/25 06:52 Dose: 2 inch Documented By: EMB Nitroglycerin (Nitroglycerin 2% Ointment 30gm Tube) Confirm Administered Dose 18 inch EXT .STK-MED ONE Stop: 04/28/25 06:48 Last Admin: 04/28/25 06:52 Dose: Not Given Documented By: EMB Imaging Data Radiologist's Impression: Chest X-Ray 04/28/25 06:46 EXAM: XR chest 1V portable CLINICAL HISTORY: Dyspnea. TECHNIQUE: An X-ray image of the chest is obtained in AP projection. COMPARISON: 01/31/2025 CR. FINDINGS: Pulmonary Parenchyma: New finding of right lung mid and lower zones ill-defined air space opacities likely infective/inflammatory. No pulmonary nodules seen. No evidence of pleural effusion or pleural thickening. Heart and Mediastinum: Heart size and shape are normal. No mediastinal widening or masses. No hilar or mediastinal lymphadenopathy. Bony Thorax: Bony thorax appears intact without fractures or deformities. Soft Tissues: Soft tissues overlying the chest wall are unremarkable. IMPRESSION: 1. New finding of right lung mid and lower zones ill-defined air space opacities likely infective/inflammatory. 2. Clinical and lab parameters correlation is suggested. Electronically signed by Dhruv Hearn 04-28-2025 07:45 AM Discharge Plan Visit Data Chief Complaint: Shortness of Breath/Dyspnea Stated Complaint: SEVERE SOB ED Provider: Oliver Mccullough Discharge Problem: Acute respiratory distress, CHF (congestive heart failure), Acute hyperglycemia, History of AR (myocardial infarction), Elevated brain natriuretic peptide (BNP) level Patient Disposition: Admitted As Inpatient Condition: Serious Forms Stand Alone Forms: [facility] Prescriptions Prescriptions: No Action folic acid 1 mg tablet 1 mg PO QAM Qty: 90 3RF famotidine 20 mg tablet 20 mg PO BID Qty: 180 3RF gabapentin 100 mg capsule 100 mg PO TID Qty: 90 11RF buspirone 10 mg tablet 10 mg PO BID Qty: 180 3RF isosorbide mononitrate 60 mg tablet extended release 24 hr 60 mg PO QAM Qty: 60 3RF pantoprazole 40 mg tablet,delayed release (DR/EC) 40 mg PO BID Qty: 90 3RF ergocalciferol (vitamin D2) [Vitamin D2] 1,250 mcg (50,000 unit) capsule 50,000 unit PO WK Qty: 12 1RF Rx Instructions: MONDAYS (DME) Lift Chair [facility] [place] See Rx Instructions .Route Qty: 1 0RF Rx Instructions: As directed aspirin 81 mg tablet,delayed release (DR/EC) 81 mg PO QAM levothyroxine 75 mcg tablet 75 mcg PO DAILY Qty: 30 5RF Rx Instructions: Take one tablet by mouth every other day for the first week, take every day thereafter. Take 30-45 minutes before any other oral intake. insulin aspart U-100 [Novolog FlexPen U-100 Insulin] 100 unit/mL (3 mL) insulin pen 2 unit subcut TID Qty: 15 5RF Rx Instructions: Inject 2 units 10-15 minutes before meals. magnesium oxide 400 mg (241.3 mg magnesium) tablet 400 mg PO QAM Qty: 30 11RF Trelegy Ellipta 100-62.5-25 mcg blister with device 1 inh inhalation QAM Qty: 60 11RF Rx Instructions: rinse mouth thoroughly after each dose. duloxetine 60 mg capsule,delayed release(DR/EC) 60 mg PO QAM Qty: 90 3RF metoprolol succinate 50 mg tablet extended release 24 hr 50 mg PO QAM Qty: 90 3RF (DME) blood-glucose meter [Accu-Chek Guide Glucose Meter] Misc See Rx Instructions .Route Qty: 1 0RF Rx Instructions: use to check blood sugar 1x daily (DME) Accu-Chek Guide test strips Strip See Rx Instructions .Route Qty: 50 11RF Rx Instructions: use to check blood sugar 1x daily diclofenac sodium 1 % gel 4 g topical QID PRN (Reason: Pain) Qty: 100 2RF Rx Instructions: apply to a single knee, shoulder, ankle, etc ferrous sulfate 325 mg (65 mg iron) tablet 325 mg PO QAM Rx Instructions: Please include in adherence packaging. Take at noon time rosuvastatin 20 mg tablet 20 mg PO QAM Rx Instructions: include in monthly pill packaging mecobalamin (vitamin B12) 1,000 mcg tablet,chewable 1,000 mcg PO QAM insulin glargine [Basaglar KwikPen U-100 Insulin] 100 unit/mL (3 mL) insulin pen 20 unit SUBCUT QAM Rx Instructions: Inject 20 units once a day in the morning. clopidogrel 75 mg Tablet 75 mg PO QAM Qty: 30 0RF Referrals Referrals: Shiela Contreras MD [Primary Care Provider] - Discharge Problem: CHF (congestive heart failure) Qualifiers: Heart failure type: unspecified Heart failure chronicity: acute Qualified Code(s): I50.9 - Heart failure, unspecified
[2025-04-28 07:03] LABS: Base Excess VBG -10.6 mEq/L; HCO3 VBG 17 mmol/L; Oxygen Saturation VBG 82.1 %; PCO2 VBG 46 mmHg (38-50); PO2 VBG 54 mmHg; pH VBG 7.18 (7.36-7.41)
[2025-04-28 07:05] LABS: Hematocrit (blood only) 36.1 % (37.0-47.0); Hemoglobin 11.2 g/dl (12.0-16.0); Immature Granulocytes # (auto) 0.06 K/uL (0.01-0.20); Immature Granulocytes % (auto) 0.7 %; Mean Corpuscular Hemoglobin 26.0 pg (25.0-34.0); Mean Corpuscular Volume 84.0 fL (80.0-100.0); Platelet Count 368 K/uL (130-400); RDW Standard Deviation 45.1 fL (36.4-46.3); Red Blood Count 4.30 M/uL (4.20-5.40); White Blood Count 8.33 K/ul (4.8-10.8)
[2025-04-28] MEDS: FUROSEMIDE 40 MG/4 ML VIAL IV ONE (07:12)
[2025-04-28 07:38] LABS: Alanine Aminotransferase 23.0 U/L (7-52); Albumin Globulin Ratio 1.0 (0.9-2); Alkaline Phosphatase 87.0 U/L (34-104); Anion Gap 9.0 (3-11); Bilirubin,Total 0.3 mg/dl (0.2-1.0); Blood Urea Nitrogen 34.0 mg/dl (6-23); Calcium 8.8 mg/dl (8.6-10.3); Carbon Dioxide 23.0 mmol/L (21-32); Chloride 104.0 mmol/L (98-107); Creatinine Clr Calc Pharmacy 31.8 ml/min; Globulin 3.6 gm/dl (2.5-4.0); Glucose 430.0 mg/dl (70-99(Fasting)); Magnesium 2.1 mg/dl (1.7-2.4); Potassium 4.9 mmol/L (3.5-5.1); Sodium 136.0 mmol/L (136-145); Total Protein 7.2 gm/dl (6.0-8.3)
[2025-04-28 07:42] LABS: INR 0.9 (0.9-1.1); Partial Thromboplastin Time 28 Seconds (21-31); Prothrombin Time 10.3 Seconds (9.0-12.0)
[2025-04-28 07:45] LABS: Appearance Urine Clear (Clear); Bacteria Urine Automated None Seen (None Seen); Cast Urine Automated 0-2 /lpf (0-2); Epithelial Cell Urine Auto 0-2 /hpf (0-2); Glucose Urine UA 1+ (Negative); RBC Urine Automated 0-2 /hpf (0-2); WBC Urine Automated 0-5 /hpf (0-5)
--- NOTE | 2025-04-28 07:45 | XRay Report ---
EXAM: XR chest 1V portable CLINICAL HISTORY: Dyspnea. TECHNIQUE: An X-ray image of the chest is obtained in AP projection. COMPARISON: 01/31/2025 CR. FINDINGS: Pulmonary Parenchyma: New finding of right lung mid and lower zones ill-defined air space opacities likely infective/inflammatory. No pulmonary nodules seen. No evidence of pleural effusion or pleural thickening. Heart and Mediastinum: Heart size and shape are normal. No mediastinal widening or masses. No hilar or mediastinal lymphadenopathy. Bony Thorax: Bony thorax appears intact without fractures or deformities. Soft Tissues: Soft tissues overlying the chest wall are unremarkable. IMPRESSION: 1. New finding of right lung mid and lower zones ill-defined air space opacities likely infective/inflammatory. 2. Clinical and lab parameters correlation is suggested. Electronically signed by Dhruv Hearn 04-28-2025 07:45 AM
[2025-04-28] MEDS: AMPICILLIN/SULBACTAM SOD 3,000 MG/100 ML BAG IV STA (07:56)
[2025-04-28 08:00] LABS: Chlamydia pneumoniae PCR Not Detected (NotDetected); Coronavirus 229E PCR Not Detected (NotDetected); Coronavirus CoV-2 (COVID19)PCR Not Detected (NotDetected); Coronavirus HKU1 PCR Not Detected (NotDetected); Coronavirus NL63 PCR Not Detected (NotDetected); Coronavirus OC43PCR Not Detected (NotDetected); Human Metapneumovirus PCR Not Detected (NotDetected); Parainfluenza Virus 1 PCR Not Detected (NotDetected); Parainfluenza Virus 2 PCR Not Detected (NotDetected); Parainfluenza Virus 3 PCR Not Detected (NotDetected); Parainfluenza Virus 4 PCR Not Detected (NotDetected); Respiratory Syncytial VirusPCR Not Detected (NotDetected); Rhinovirus/Enterovirus PCR Not Detected (NotDetected)
--- NOTE | 2025-04-28 08:02 | History & Physical Report ---
Date of Service April 28, 2025 Assessment & Plan (1) Acute respiratory distress: (2) Acute heart failure with preserved ejection fraction (HFpEF): (3) Flash pulmonary edema: (4) Diabetes mellitus with hyperglycemia: Plan This patient is a 80-year-old female with PMH of CHF who presented on 04/28 for acute respiratory distress upon waking at 0500. She was given nitro SL and placed on CPAP en route. She rapidly improved after starting Lasix in the emergency department. Suspect to be coming in with an acute episode of flash pulmonary edema. #Acute HFpEF | flash pulmonary edema VB.18/46/54/70 (? Acidotic secondary to starvation ketoacidosis); repeat VBG in 2 hours while on BiPAP CXR revealed right lung mid and lower zones airspace opacities On somewhat abnormal that her right lung exhibits more pulmonary edema than the left, do suspect that this is acute CHF Last echocardiogram on 04/13/2025 revealed LVEF at 66 5% with no regional wall motion abnormalities Given this was just performed a week ago, will defer repeat echo at this time and see if patient clinically improved with diuresis Daily Bliss catheter care Lasix 40 mg IV BID17 K supplementation 10 mEq BID Strict I&O monitor Daily weights #Acute respiratory distress | ?pneumonia While pneumonia and pulmonary embolism are still within the differential, her rapid improvement with the above treatments suggested clinical picture of flash pulmonary edema Will defer D-dimer at this time Viral BioFire negative CXR does mention airspace opacities likely infective/inflammatory in the right lung No leukocytosis; afebrile Procalcitonin WNL CRP ordered, pending Ampicillin 2000 mg IV x 1 ordered in the ED Will defer additional antibiotics at this time #Elevated troponin | recent NSTEMI [place] hospitalization 04/12 - 04/18 for NSTEMI Troponin mildly elevated at 14->86 on arrival; trend q6h to peak Suspect demand ischemia in setting of hypoxia/acute CHF However, if continues to uptrend, may need to obtain limited echo to assess for LV function Clinically, patient denies chest pain on arrival 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 #T2DM | hyperglycemia Last A1c at 10.9% on 02/02/2020 Glucose elevated at 414 on admission; refractory to insulin 10 units IV x 1 + NovoLog SQ qu Patient is normally on Lantus 20u QAM Will increase to Lantus 15u BID SSI with target BSG range 110-140mg/dL, CF 20, carb ratio 7 T2DM diet BSG ACHS Adjust regimen as needed AM A1c #Anemia Hgb around baseline at 11, microcytic With a history of iron, B12, and folate deficiencies Continue iron, B12, and folic acid supplementation #Severe CAD | HTN | HLD She has a history of severe multivessel disease not amenable to CABG but has multiple stents in place Continue home aspirin, rosuvastatin, metoprolol succinate, isosorbide mononitrate #Anxiety | depression Continue home buspirone, duloxetine #GERD | history of Mckeon's esophagus Continue PPI and famotidine #Reactive airway disease | suspected COPD Patient only had secondhand smoke exposure but was never a smoker. No formal PFTs to review. She is on maintenance inhalers at home. No acute issues Continue maintenance inhaler Called patient's daughter (Elizabeth) and provided updates regarding admission status. Disposition: Admit to PCU telemetry VTE PPx: Lovenox 40 mg SQ q24h History of Present Illness Chief Complaint: SOB/dyspnea Primary Care Provider: Shiela Contreras MD Mrs. Rosas is a 80-year-old female with PMH of T2DM, NSTEMI, dementia, dysphagia, CKD stage III, B12/folic acid deficiency, and CAD. She presented via EMS on 04/28 for sudden onset of SOB/dyspnea and diaphoresis that awoke her from sleep at 0500. Patient lives alone. She reports she felt fine when she went to bed last night. Then, her breathing was so bad this morning that she felt like she was going to "pass out". While she denies chest pain, she does report she has pain with deep breaths at this time. No hemoptysis. No prior history of DVT/PE. No recent injuries to her legs. Patient denies any recent change in diet or weight; does watch her salt intake at home; denies any recent swelling in her legs. Additionally, she does have a productive cough (white sputum production). No sick contacts to her knowledge. She reports she does not take diuretics on a daily basis. Patient did not take any of her regular morning medicine today before coming in. No insulin yet today. She does manage her own medicine at home, with the help of her daughter (Elizabeth). Recent [place] hospitalization last week for NSTEMI. Patient denies smoking, tobacco use, recent alcohol use. Patient ambulates with a walker at baseline. Patient is 97% SpO2 on BiPAP at time of admission. EMS course: Per EMS, she was 85% on room air on arrival. Patient received 5 SL nitro and route and was placed on BiPAP; concern for flash pulmonary edema. ED course: Unasyn 3000 mg IV Lasix 40 mg IV Nitro-Bid 2% cream ROS: Patient endorses dizziness, lightheadedness, acute onset of SOB at rest (resolved), pleuritic CP, and productive cough. Patient denies fever, headache, hemoptysis, chest pain, chest palpitations, abdominal pain, N/V/D, burning with urination, blood in the urine/stool, melena, or swelling in the legs. Allergies Allergy/AdvReac Type Severity Reaction Status Date / Time cephalexin Allergy Intermediate Rash and Verified 04/23/25 14:51 itchiness Cephalosporins Allergy Intermediate Rash and Verified 04/23/25 14:51 itchiness Sulfa (Sulfonamide Allergy Intermediate Hives Verified 04/23/25 14:51 Antibiotics) Home Medications Medication Instructions Recorded Confirmed Type diclofenac sodium 1 % topical gel 4 g topical QID PRN Pain #100 grams 07/09/23 04/28/25 Rx Lift Chair #1 ea 09/06/23 04/23/25 Rx aspirin 81 mg tablet,delayed 81 mg PO QAM 11/18/23 04/28/25 History release folic acid 1 mg tablet 1 mg PO QAM #90 tabs 08/10/24 04/28/25 Rx famotidine 20 mg tablet 20 mg PO BID #180 tabs 09/12/24 04/28/25 Rx gabapentin 100 mg capsule 100 mg PO TID #90 caps 09/28/24 04/28/25 Rx duloxetine 60 mg capsule,delayed 60 mg PO QAM #90 caps 10/05/24 04/28/25 Rx release fluticasone fur. 100 mcg-umeclid 1 inh inhalation QAM #60 ea 10/05/24 04/28/25 Rx 62.5 mcg-vilant 25 mcg inhalat.powder (Trelegy Ellipta) metoprolol succinate 50 mg 50 mg PO QAM #90 tabs 10/05/24 04/28/25 Rx tablet,extended release 24 hr ferrous sulfate 325 mg (65 mg 325 mg PO QAM 10/30/24 04/28/25 History iron) tablet mecobalamin (vitamin B12) 1,000 1,000 mcg PO QAM 10/30/24 04/28/25 History mcg chewable tablet rosuvastatin 20 mg tablet 20 mg PO QAM 10/30/24 04/28/25 History buspirone 10 mg tablet 10 mg PO BID #180 tabs 12/26/24 04/28/25 Rx magnesium oxide 400 mg (241.3 mg 400 mg PO QAM #30 tabs 01/05/25 04/28/25 Rx magnesium) tablet isosorbide mononitrate 60 mg 60 mg PO QAM #60 tabs 02/14/25 04/28/25 Rx tablet,extended release 24 hr pantoprazole 40 mg tablet,delayed 40 mg PO BID #90 tabs 02/14/25 04/28/25 Rx release blood sugar diagnostic (Accu-Chek #50 ea 02/23/25 04/23/25 Rx Guide test strips) blood-glucose meter (Accu-Chek #1 ea 02/23/25 04/23/25 Rx Guide Glucose Meter) insulin aspart U-100 100 unit/mL 2 unit (0.02 mL) subcut TID #15 mL 03/21/25 04/28/25 Rx (3 mL) subcutaneous pen (Novolog FlexPen U-100 Insulin aspart) levothyroxine 75 mcg tablet 75 mcg PO DAILY #30 tabs 03/21/25 04/28/25 Rx insulin glargine 100 unit/mL (3 20 unit subcut QAM for sugar 04/12/25 04/28/25 History mL) subcutaneous pen (Basaglar control inject at meal times. KwikPen U-100 Insulin) ergocalciferol (vitamin D2) 1,250 50,000 unit PO WK #12 caps 04/17/25 04/28/25 Rx mcg (50,000 unit) capsule (Vitamin D2) clopidogrel 75 mg tablet 75 mg PO QAM #30 tabs 04/18/25 04/28/25 Rx Past Med/Surg History Problem List (Updated 04/28/25 @ 09:17 by Vijay Washington PA-C) Flash pulmonary edema Acute heart failure with preserved ejection fraction (HFpEF) Elevated brain natriuretic peptide (BNP) level (Acute) History of [place] (myocardial infarction) (Acute) Acute hyperglycemia (Acute) CHF (congestive heart failure) (Acute) Acute respiratory distress (Acute) Non-ST elevation [place] (NSTEMI) (Acute) 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) Hyperlipidemia associated with type 2 diabetes mellitus (Chronic) Troponin level elevated (Acute) Chest pain, rule out acute myocardial infarction (Acute) Hypothyroidism (Chronic) Diabetes mellitus with hyperglycemia (Chronic) Urinary incontinence (Chronic) Stenosis of anal canal (Chronic) Dementia (Chronic) Chronic constipation with overflow (Chronic) Dysphagia (Chronic) Background diabetic retinopathy associated with type 2 diabetes mellitus (Chronic) Cervical spinal stenosis (Chronic) Hypertension (Chronic) 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) Vitamin D deficiency (Chronic) CKD (chronic kidney disease), stage III (Chronic) Folic acid deficiency (Chronic) Vitamin B12 deficiency (Chronic) Arthritis of knee, left (Chronic) Depression Lumbar spondylosis Uncontrolled type 2 diabetes mellitus with neurologic complication, with long- term current use of insulin GERD (gastroesophageal reflux disease) Mckeon esophagus (Chronic) CAD (coronary artery disease) (Chronic) s/p stents to RCA November 2005; s/p stents to LAD, LCx in January 2006; s/p stents to RCA in 08/2006 IBS (irritable bowel syndrome) Anxiety Medical History Stercoral colitis Acute UTI Esophageal ulcer without bleeding hx Hiatal hernia Hemorrhoids Esophageal spasm hx- pt not aware Edema mild, right LE History of COVID-2020 - resolved Acute non-ST elevation myocardial infarction (NSTEMI) 11/28/2021 had [place] medical management and follow with dr abdullahi apt 02/09/2022 GERD without esophagitis Myocardial Infarction TN- November 2005, January 2006, Aug 2006 3 total within an 8 month span--HX OF CATH 2013 [facility] [place], FOLLOWS WITH DR. ABDULLAHI Surgical History Status post trigger finger release S/P coronary artery stent placement History of total hysterectomy with bilateral salpingo-oophorectomy (BSO) History of lumbar spinal fusion History of total right knee replacement (TKR) History of esophageal dilatation History of colonoscopy with polypectomy History of esophagogastroduodenoscopy (EGD) History of tooth extraction History of cholecystectomy History of cataract surgery History of cardiac cath Family History Brother Myocardial infarction Anxiety Heart disease Hypertension Cancer Sister Family history of reaction to anesthesia difficulty waking Hypertension Heart disease Myocardial infarction Anxiety Cancer Diabetes Father Anxiety Heart disease Hypertension Mother Anxiety Hypertension Heart disease Unknown Cancer skin, GI Denies family history of Ovarian cancer Prostate cancer Breast cancer Colorectal cancer Stroke Social History Smoking Status: Never smoker Tobacco Type: Cigarettes Age Started Using Tobacco: 18; Age Quit Using Tobacco: 57; packs per day: 0.5; Second Hand Exposure: No; Do You Dip or Chew Tobacco: No; Hx Alcohol Use: No Hx Substance Use: No Preferred Language: Croatian Communication Ability: Effective Visual Impairment: Limited Hearing Ability: Normal Pcu Rn Required: No Beliefs That Will Affect Care: None marital status: / Current Living Situation: Alone Current Living Situation Comment: Pt currently lives home alone, but is concerned that she needs help at home current occupational status: retired and disabled How many Children do You have: 3 Feels Safe at Home: Yes Childhood Exposure to Second-Hand Smoke: No Diet: regular caffeine: Yes (drinks coffee, diet pepsi occasionally ) during the past year weight has: remained stable Dental Care, Regularly: No Physical Activity Frequency: Does not Exercise Seatbelt Use: always Sunscreen Use: No Assistive Devices: Denture - Upper, Glasses and Walker Review of Systems Review of Systems: See HPI above Physical Exam Physical Exam: General: no acute distress; pleasant affect; non-toxic appearing; well- nourished; cooperative; SpO2 97% on BiPAP HEENT: normocephalic, atraumatic; no scleral icterus; PERRLA; vision and hearing grossly intact Neck: supple; negative JVP; no lymphadenopathy; trachea midline Skin: warm, dry without signs of tenting; no cyanosis; no rashes, bruising, lesions, or erythema noted CV: chest wall NTP; RRR; pulses intact and symmetric at radial, DP, and PT Lungs: no acute respiratory distress; symmetrical chest wall expansion; clear breath sounds across all lung peraza w/o adventitious sounds; no wheezing ABD: Soft, NTP; BS present; no rebound/guarding; no distention MSK: no tics or fasciculations; +1 pitting edema around the ankles, otherwise no pitting edema, nonerythematous lower extremities Neuro: A&Ox3; normal mood and affect; fluent speech; no focal deficits; sensation grossly intact in the LEs b/l Results & Data Results & Data Vital Signs (Past 12 Hours) Vital Signs Temp Pulse Pulse Resp BP BP Pulse Ox 04/28/25 07:55 97 04/28/25 07:54 86 20 97 04/28/25 07:49 115/79 04/28/25 07:49 115/79 04/28/25 07:42 100 04/28/25 07:39 100 04/28/25 07:30 118/79 04/28/25 07:30 118/79 04/28/25 06:54 101 H 31 H 128/87 98 04/28/25 06:52 98 04/28/25 06:45 107 H 29 H 99 04/28/25 06:45 36.6 C 100 H 26 H 143/115 H 99 04/28/25 06:45 O2 Del Method FiO2 04/28/25 07:55 BiPAP 04/28/25 07:54 04/28/25 07:49 04/28/25 07:49 04/28/25 07:42 04/28/25 07:39 04/28/25 07:30 04/28/25 07:30 04/28/25 06:54 BiPAP 40 04/28/25 06:52 BiPAP 04/28/25 06:45 40 04/28/25 06:45 BiPAP 04/28/25 06:45 BiPAP Laboratory Results Abnormal lab results 04/28/25 04/28/25 Range/Units 06:49 07:11 Hgb 11.2 L (12.0-16.0) g/dl Hct 36.1 L (37.0-47.0) % MCHC 31.0 L (32.0-36.0) g/dL RDW Coeff of Tino 14.9 H (11.5-14.5) % Lymph # (Auto) 3.59 H (1.20-3.40) K/uL VBG pH 7.18 L (7.36-7.41) BUN 34 H (6-23) mg/dl Creatinine 1.44 H (0.6-1.2) mg/dl BUN/Creatinine Ratio 23.6 H (10-20) Glucose 430 H* (70-99(Fasting)) mg/dl Troponin I High Sens 14.2 H (0-14) pg/ml B-Natriuretic Peptide 317 H (0-100) pg/ml Urine Protein 1+ H (Negative) Urine Glucose (UA) 1+ H (Negative) Diagnostic Findings Chest X-Ray 04/28/25 06:46 EXAM: XR chest 1V portable CLINICAL HISTORY: Dyspnea. TECHNIQUE: An X-ray image of the chest is obtained in AP projection. COMPARISON: 01/31/2025 CR. FINDINGS: Pulmonary Parenchyma: New finding of right lung mid and lower zones ill-defined air space opacities likely infective/inflammatory. No pulmonary nodules seen. No evidence of pleural effusion or pleural thickening. Heart and Mediastinum: Heart size and shape are normal. No mediastinal widening or masses. No hilar or mediastinal lymphadenopathy. Bony Thorax: Bony thorax appears intact without fractures or deformities. Soft Tissues: Soft tissues overlying the chest wall are unremarkable. IMPRESSION: 1. New finding of right lung mid and lower zones ill-defined air space opacities likely infective/inflammatory. 2. Clinical and lab parameters correlation is suggested. Electronically signed by Dhruv Hearn 04-28-2025 07:45 AM ECG Additional Comments: ECG revealed sinus tachycardia at 101 bpm; QTc 453 Code Status & VTE Plan Code Status DNR/DNI VTE Prophylaxis Plan VTE Prophylaxis will be ordered: Yes Supervising Physician Co-Signing Physician Notes I personally examined the patient and verified all hathaway points of history and exam, discussed case, and agree with decision making with Margie BORJAS Sudden onset of shortness of breath at about 5 in the morning. Came to the ER. Very hypoxic. Given Lasix. Dramatically betterat this point she is on 2 L but only 1 cannulas in her nose. She is eating and feeling good (nursing also noted that the oxygen at this point is largely at her request for comfort as she was about 92% on room air. Breathing unlabored no accessory muscle use good effort. Skin without rashes pallor or icterus. Acute on chronic HFpEFhypoxic respiratory failure present on admission. Improved dramatically. Continue to diurese. Educate on sodium. Hopefully home soon. Chest x-ray to me looks more consistent with asymmetric pulmonary edema than infection, hold off on further antibioticsher rate of improvement certainly fits far more with pulmonary edema than infection as well. otherwise as above PG Care Time/CCT Total # of Minutes Spent Total Time Spent with Patient: Total time spent is greater than 50% in coordination of care (as documented) at patient's floor/unit and/or counseling patient: Coding [place] [address] INT INP/OBS CARE 3/75MIN Patient Type Established Medical Decision Making High Complexity Diagnoses Acute respiratory distress R06.03 Acute heart failure with preserved ejection fraction (HFpEF) I50.31 Flash pulmonary edema J81.0 Diabetes mellitus with hyperglycemia E11.65
[2025-04-28] MEDS: NovoLIN-R INSULIN PER UNIT CHARGE IV STA (09:07)
[2025-04-28] MEDS ORDERED: ONDANSETRON INJ 2 MG/ML 2 ML VIAL IV ONE (09:30)
[2025-04-28] MEDS: ONDANSETRON INJ 2 MG/ML 2 ML VIAL ONE (09:31)
[2025-04-28 09:40] LABS: Base Excess VBG -2.8 mEq/L; HCO3 VBG 25 mmol/L; Oxygen Saturation VBG 69.3 %; PCO2 VBG 58 mmHg (38-50); PO2 VBG 43 mmHg; pH VBG 7.25 (7.36-7.41)
[2025-04-28] MEDS ORDERED: GLUCOSE 10 TAB/TUBE PO PRN (10:34)
[2025-04-28] MEDS ORDERED: DEXTROSE 50% 50 ML SYRINGE IV PRN (10:34)
[2025-04-28] MEDS ORDERED: ONDANSETRON INJ 2 MG/ML 2 ML VIAL IV PRN (10:34)
[2025-04-28] MEDS ORDERED: GLUCOSE 40% GEL 15 GM TUBE PO PRN (10:34)
[2025-04-28] MEDS ORDERED: DICLOFENAC SOD 1% GEL 100 GM TUBE EXT PRN (10:34)
[2025-04-28] MEDS ORDERED: NON-FORMULARY MEDICATION (Fluticasone-Umeclidin-Vilanter [Trelegy Ellipta] 100-62.5-25 mcg INH SCH (10:34)
[2025-04-28] MEDS ORDERED: GLUCAGON FOR INJ 1 MG VIAL SQ PRN (10:34)
[2025-04-28] MEDS: ROSUVASTATIN CALCIUM 20 MG TAB PO SCH (11:10)
[2025-04-28] MEDS: FOLIC ACID 1 MG TAB PO SCH (11:10)
[2025-04-28] MEDS: LEVOTHYROXINE SODIUM 75 MCG TABLET PO SCH (11:10)
[2025-04-28] MEDS: busPIRone 5 MG TAB PO SCH (11:10)
[2025-04-28] MEDS: METOPROLOL SUCC 50MG EXT REL TAB PO SCH (11:10)
[2025-04-28] MEDS: ASPIRIN 81 MG ECTAB PO SCH (11:10)
[2025-04-28] MEDS: CLOPIDOGREL BISULFATE 75 MG TAB PO SCH (11:10)
[2025-04-28] MEDS: GABAPENTIN 100 MG CAP PO SCH (11:10)
[2025-04-28] MEDS: ISOSORBIDE MONO EXTENDED REL 60 MG TABCR PO SCH (11:10)
[2025-04-28] MEDS: MAGNESIUM OXIDE 400 MG TAB PO SCH (11:10)
[2025-04-28] MEDS: FLUTICASONE FUROATE 100MCG 14 PUFFS/INHALER INH SCH (11:11)
[2025-04-28] MEDS: UMECLIDINIUM/VILANTEROL 62.5/25MCG 7 PUFFS/INHALER INH SCH (11:11)
[2025-04-28] MEDS: FERROUS SULFATE 325 MG TAB PO SCH (11:11)
[2025-04-28] MEDS: LANTUS PER UNIT CHARGE SQ ONE (11:17)
[2025-04-28] MEDS: INSULIN ASPART PER UNIT CHARGE SC SCH (11:59)
[2025-04-28] MEDS: FAMOTIDINE 20 MG TAB PO SCH (12:00)
[2025-04-28] MEDS: INSULIN HUMAN REGULAR PER UNIT 5 UNITS in SYRINGE 4.95 ML IV STA (13:00)
[2025-04-28] MEDS: LANTUS PER UNIT CHARGE SQ STA (15:17)
[2025-04-28] MEDS: FUROSEMIDE 40 MG/4 ML VIAL IV SCH (16:41)
[2025-04-28] MEDS: LANTUS PER UNIT CHARGE SQ SCH (21:45)
[2025-04-28] MEDS: MELATONIN 3 MG TAB PO PRN (21:45)
[2025-04-28] MEDS: ENOXAPARIN INJ 40 MG/0.4 ML SYR SQ SCH (21:47)
[2025-04-29] MEDS: ACETAMINOPHEN 325 MG TAB PO PRN (05:40)
[2025-04-29 07:38] LABS: Hematocrit (blood only) 27.6 % (37.0-47.0); Hemoglobin 8.6 g/dl (12.0-16.0); Immature Granulocytes # (auto) 0.02 K/uL (0.01-0.20); Immature Granulocytes % (auto) 0.2 %; Mean Corpuscular Hemoglobin 26.1 pg (25.0-34.0); Mean Corpuscular Volume 83.9 fL (80.0-100.0); Platelet Count 237 K/uL (130-400); RDW Standard Deviation 45.1 fL (36.4-46.3); Red Blood Count 3.29 M/uL (4.20-5.40); White Blood Count 8.07 K/ul (4.8-10.8)
[2025-04-29 08:04] LABS: Hemoglobin A1C 8.3 % (4.5-5.6)
[2025-04-29] MEDS: POTASSIUM CHLORIDE 10 MEQ TABCR PO SCH (08:18)
[2025-04-29 08:19] LABS: Anion Gap 4.0 (3-11); Blood Urea Nitrogen 42.0 mg/dl (6-23); Calcium 8.5 mg/dl (8.6-10.3); Carbon Dioxide 29.0 mmol/L (21-32); Chloride 104.0 mmol/L (98-107); Creatinine Clr Calc Pharmacy 26.9 ml/min; Glucose 139.0 mg/dl (70-99(Fasting)); Potassium 5.0 mmol/L (3.5-5.1); Sodium 137.0 mmol/L (136-145)
[2025-04-29] MEDS ORDERED: LANTUS PER UNIT CHARGE SQ SCH (09:00)
--- NOTE | 2025-04-29 10:02 | Hospitalist Progress Note ---
Date of Service April 29, 2025 Assessment & Plan (1) Acute respiratory distress: (2) (HFpEF) heart failure with preserved ejection fraction: (3) Flash pulmonary edema: (4) Non-ST elevation [place] (NSTEMI): (5) Diabetes mellitus with hyperglycemia: Plan This patient is a 80-year-old female with PMH of CHF who presented on 04/28 for acute respiratory distress upon waking at 0500. She was given nitro SL and placed on CPAP en route. She rapidly improved after starting Lasix in the emergency department. Suspect to be coming in with an acute episode of flash pulmonary edema. #HFpEF | flash pulmonary edema | Elevated troponin CXR revealed right lung mid and lower zones airspace opacities While somewhat abnormal that her right lung exhibits more pulmonary edema than the left, do suspect acute CHF over PNA Last echocardiogram on 04/13/2025 revealed LVEF at 60-65% with no regional wall motion abnormalities Repeat limited echocardiogram did not reveal any acute changes from prior Daily Bliss catheter care Continue Lasix 40 mg IV BID17 K supplementation 10 mEq BID Strict I&O monitor Daily weights #NSTEMI Clinically, patient denies chest pain (both at present, and on the morning of her event) Troponin trend: 14 ->86->584->1409->848 Morphology change seen on EKG: Specifically T wave inversions in leads II, III, and aVF indicative of cardiac ischemia Per review of patient's last cardiac catheterization (11/28/2021) patient has severe multivessel CAD Suspect patient will require a repeat cardiac catheterization during this admission Cardiology consult appreciated regarding IV heparin Per cardiology, the patient is currently asymptomatic and would not alter medical therapy Will defer IV heparin at this time N.p.o. at midnight in the event patient requires cardiac catheterization #Anemia Hgb around baseline at 11, microcytic Hgb trend: 11.2 -> 8.5; no fluids given Clinically, no signs of active bleeding on physical exam Patient denies melena, blood in the urine or stool H/o iron, B12, and folate deficiencies, but all appear to be WNL on most recent checks Given patient's history of CAD suspected cardiac event, may benefit from blood transfusion if planning to undergo cardiac catheterization Type and screen ordered, pending #Acute respiratory distress (resolved) While pneumonia and pulmonary embolism are still within the differential, her rapid improvement with the above treatments suggested clinical picture of flash pulmonary edema D-dimer deferred Viral BioFire negative CXR does mention airspace opacities likely infective/inflammatory in the right lung No leukocytosis; afebrile Procalcitonin WNL CRP ordered, pending Ampicillin 2000 mg IV x 1 ordered in the ED Will defer additional antibiotics at this time #Recent NSTEMI Noted; [place] hospitalization 04/12 - 04/18 Continuous cafeteria monitor #T2DM | hyperglycemia A1c 8.3% on 04/29/2025 Glucose elevated at 414 on admission; refractory to insulin 10 units IV x 1 + NovoLog SQ qu Patient is normally on Lantus 20u QAM Will increase to Lantus 15u BID SSI with target BSG range 110-140mg/dL, CF 20, carb ratio 7 T2DM diet BSG ACHS Adjust regimen as needed AM A1c #Severe CAD | HTN | HLD She has a history of severe multivessel disease not amenable to CABG but has multiple stents in place Continue home aspirin, rosuvastatin, metoprolol succinate, isosorbide mononitrate #Anxiety | depression Continue home buspirone, duloxetine #GERD | history of Mckeon's esophagus Continue PPI and famotidine #Reactive airway disease | suspected COPD Patient only had secondhand smoke exposure but was never a smoker. No formal PFTs to review. She is on maintenance inhalers at home. No acute issues Continue maintenance inhaler Provided updates to patient's daughter (Elizabeth) at bedside on 04/29. Disposition: Continued stay on PCU telemetry VTE PPx: IV heparin pending Cardiology eval; continue Lovenox 40 mg SQ q24h for now Admission and Anticipated Discharge Date Admission Date: April 28, 2025 Supervising Physician Co-Signing Physician Notes Attending Attestation - Chart reviewed, care plan d/w JAVI [place]. I agree w/ the hathaway components of his documentation. Appreciate cardiology assistance. Roger Vazquez MD Subjective Mrs. Rosas is happy to report that she is doing significantly better today when compared yesterday. She had no recurrence of the shortness of breath overnight. No chest pain when up ambulating with PT this morning. She did feel somewhat dizzy on her feet, and "a little winded", but she reports no shortness of breath at rest. Patient denies ever having chest pain with this experience; no chest pain when she woke up yesterday morning. Patient reports good compliance with taking aspirin for her heart stents, she is unsure if she takes Plavix. No prior history of strokes. She denies prior history of blood transfusions. Patient reports she has been on heparin the past, and reports she has no reasons why she would be unable to take a blood thinner; no history of GI bleeds or brain bleeds. No recent falls at home. She did have a bowel movement today. Note: Patient's daughter (Elizabeth) at bedside does report that during her last cardiac catheterization, there was "too much blockage" and they were unable to do anything. ROS: Patient endorses dizziness/lightheadedness when standing, and mild FRITZ with ambulation. Patient denies chest pain, chest palpitations, SOB at rest, cough, abdominal pain, N/V/D, melena, or blood in the urine or stool. Review of Systems Review of Systems: See HPI above Physical Exam Physical Exam: General: no acute distress; pleasant affect; daughter (Elizabeth) at bedside; non- toxic appearing; frail-appearing; cooperative; SpO2 94% on RA HEENT: normocephalic, atraumatic; no scleral icterus; PERRLA; vision and hearing grossly intact Neck: supple; negative JVP; no lymphadenopathy; trachea midline Skin: warm, dry without signs of tenting; no cyanosis; no rashes, bruising, lesions, or erythema noted CV: chest wall NTP; RRR; pulses intact and symmetric at radial, DP, and PT Lungs: no acute respiratory distress; symmetrical chest wall expansion; clear breath sounds across all lung peraza w/o adventitious sounds; no wheezing ABD: Soft, NTP; BS present; no rebound/guarding; no distention MSK: no tics or fasciculations; +1 pitting edema around the ankles, otherwise no pitting edema, nonerythematous lower extremities Neuro: A&Ox3; normal mood and affect; fluent speech; no focal deficits; sensation grossly intact in the LEs b/l Results & Data Results & Data Vital Signs (Past 12 Hours) Vital Signs Temp Pulse Pulse Resp BP Pulse Ox O2 Del Method 04/29/25 07:30 76 04/29/25 07:10 37.1 C 75 16 108/63 96 Nasal Cannula 04/29/25 02:29 36.9 C 87 20 117/72 94 Nasal Cannula 04/28/25 22:28 36.8 C 71 20 98/61 L 94 Nasal Cannula O2 Flow Rate 04/29/25 07:30 04/29/25 07:10 1 04/29/25 02:29 1 04/28/25 22:28 1 PG Care Time/CCT Total # of Minutes Spent Total Time Spent with Patient: Total time spent is greater than 50% in coordination of care (as documented) at patient's floor/unit and/or counseling patient: C[place] [address] SUB INP/OBS CARE 3/50MIN Patient Type Established Medical Decision Making High Complexity Diagnoses Acute respiratory distress R06.03 (HFpEF) heart failure with preserved ejection fraction I50.30 Flash pulmonary edema J81.0 Non-ST elevation [place] (NSTEMI) I21.4 Diabetes mellitus with hyperglycemia E11.65
[2025-04-29 11:13] LABS: Hematocrit (blood only) 27.2 % (37.0-47.0); Hemoglobin 8.5 g/dl (12.0-16.0)
--- NOTE | 2025-04-29 12:42 | XCELERA ---
[id number] \\[id number]
--- NOTE | 2025-04-29 15:32 | Cardiology Consultation ---
Date of Consultation April 29, 2025 Assessment & Plan (1) Acute heart failure with preserved ejection fraction (HFpEF): (2) Non-ST elevation [place] (NSTEMI): (3) CAD (coronary artery disease): (4) CKD (chronic kidney disease), stage III: Plan 1. CHF: She presented with acute shortness of breath which sounds as though it is sudden pulmonary edema, although there are not a lot of objective findings. Her BNP is somewhat elevated but her chest x-ray does not show a lot of failure however it cleared very quickly after receiving nitroglycerin in the emergency room. She does not appear fluid overloaded nor does she describe recent signs or symptoms of congestive heart failure other than the day of presentation. 2. NSTEMI: She did have significant troponin elevation, 2 weeks ago when she presented with chest discomfort she had mild troponin elevation and now the trop onin levels are quite a bit higher. On her last presentation several weeks ago she had chest discomfort, she does not report that this time but she was very short of breath. This is suggestive of an acute coronary syndrome with a "stuttering myocardial infarction". It has been 3 years since she had a catheterization and at that time there was nothing which could be done, however perhaps that has changed. I have asked Dr. Mcdonald to review her prior films and see whether we should consider a repeat catheterization this admission. 3. Coronary disease: She has a history of coronary disease with interventions in the past, most recently in 2024 it was felt that she was not a bypass candidate nor an intervention candidate. That may not have changed, however we may need to reevaluate but that will require a review of her prior angiogram. 4. Chronic kidney disease: Her creatinine fluctuates quite a bit but is probably adequate for catheterization. For the time being since she is asymptomatic I would not alter her medical therapy, I would continue statin therapy, aspirin and clopidogrel as well as isosorbide mononitrate, metoprolol succinate and diuretics. Her blood pressure and heart rate are not elevated. History of Present Illness Reason for Consultation: CHF Attending Physician: Roger Vazquez MD History of Present Illness This is a 80-year-old woman who is followed in our office by Dr. Abdullahi. She was last seen November 29, 2024. She has a history of diabetes mellitus, chronic kidney disease, hypertension, dyslipidemia and coronary artery disease. She is reported to have a microinfarction in November 2005, January 2006 and August 2006 and had catheterization in 2012 at [facility].most recently she had a NSTEMI on November 27, 2021 where diffuse coronary disease was identified with poor target vessels for coronary revascularization and with diffuse disease not a good candidate for coronary intervention. She has therefore been treated medically. She had been doing well from the cardiac standpoint as of her last visit in the office. She did however present to the emergency room on April 12, 2025 with symptoms of chest discomfort, this was intermittent over several days at that time. Her presenting electrocardiogram showed sinus rhythm with inferolateral T wave abnormalities but no acute findings. An echocardiogram done April 13, 2025 showed normal left ventricular size and systolic function with an ejection fraction of 60 to 65% and mild concentric left ventricular hypertrophy. She had moderate mitral regurgitation. Her high-sensitivity troponin was elevated to 117 with the peak 4 hours after presentation. She was treated medically and discharged on April 18, 2025. She then presented to the emergency room with shortness of breath on the morning of April 28, 2025. She describes sudden onset of shortness of breath (but without chest pain), she describes as as sudden and quite severe and not present at all prior to that morning. She does not recall having any recent exertional chest discomfort, recent exertional shortness of breath, orthopnea, PND or peripheral edema. She was given sublingual nitroglycerin and placed on CPAP and improved quickly. Her electrocardiogram on presentation showed sinus rhythm at 100 bpm with inferolateral T wave abnormalities. A repeat echocardiogram April 29, 2025 showed normal left ventricular size with mild concentric left ventricular hypertrophy and a normal LVEF with no wall motion abnormalities. Mild mitral regurgitation. Blood work was notable for her hemoglobin being 8.5 (which is lower than usual) and her high sensitivity troponin was almost normal on arrival at 14.2 but increased to a peak 15 hours later of 1409 and then has decreased. Her BNP was elevated at 317. She has mild kidney disease with a creatinine which typically is in the low to mid 1 range but fluctuates significantly, 1.69 this morning. Her chest x-ray did not show significant CHF. At the time of my evaluation today she was feeling well, her description of her presentation is as noted above. She has had no further chest discomfort or shortness of breath since presentation. Allergies Allergy/AdvReac Type Severity Reaction Status Date / Time cephalexin Allergy Intermediate Rash and Verified 04/23/25 14:51 itchiness Cephalosporins Allergy Intermediate Rash and Verified 04/23/25 14:51 itchiness Sulfa (Sulfonamide Allergy Intermediate Hives Verified 04/23/25 14:51 Antibiotics) Home Medications Medication Instructions Recorded Confirmed Type diclofenac sodium 1 % topical gel 4 g topical QID PRN Pain #100 grams 07/09/23 04/28/25 Rx Lift Chair #1 ea 09/06/23 04/23/25 Rx aspirin 81 mg tablet,delayed 81 mg PO QAM 11/18/23 04/28/25 History release folic acid 1 mg tablet 1 mg PO QAM #90 tabs 08/10/24 04/28/25 Rx famotidine 20 mg tablet 20 mg PO BID #180 tabs 09/12/24 04/28/25 Rx gabapentin 100 mg capsule 100 mg PO TID #90 caps 09/28/24 04/28/25 Rx duloxetine 60 mg capsule,delayed 60 mg PO QAM #90 caps 10/05/24 04/28/25 Rx release fluticasone fur. 100 mcg-umeclid 1 inh inhalation QAM #60 ea 10/05/24 04/28/25 Rx 62.5 mcg-vilant 25 mcg inhalat.powder (Trelegy Ellipta) metoprolol succinate 50 mg 50 mg PO QAM #90 tabs 10/05/24 04/28/25 Rx tablet,extended release 24 hr ferrous sulfate 325 mg (65 mg 325 mg PO QAM 10/30/24 04/28/25 History iron) tablet mecobalamin (vitamin B12) 1,000 1,000 mcg PO QAM 10/30/24 04/28/25 History mcg chewable tablet rosuvastatin 20 mg tablet 20 mg PO QAM 10/30/24 04/28/25 History buspirone 10 mg tablet 10 mg PO BID #180 tabs 12/26/24 04/28/25 Rx magnesium oxide 400 mg (241.3 mg 400 mg PO QAM #30 tabs 01/05/25 04/28/25 Rx magnesium) tablet isosorbide mononitrate 60 mg 60 mg PO QAM #60 tabs 02/14/25 04/28/25 Rx tablet,extended release 24 hr pantoprazole 40 mg tablet,delayed 40 mg PO BID #90 tabs 02/14/25 04/28/25 Rx release blood sugar diagnostic (Accu-Chek #50 ea 02/23/25 04/23/25 Rx Guide test strips) blood-glucose meter (Accu-Chek #1 ea 02/23/25 04/23/25 Rx Guide Glucose Meter) insulin aspart U-100 100 unit/mL 2 unit (0.02 mL) subcut TID #15 mL 03/21/25 04/28/25 Rx (3 mL) subcutaneous pen (Novolog FlexPen U-100 Insulin aspart) levothyroxine 75 mcg tablet 75 mcg PO DAILY #30 tabs 03/21/25 04/28/25 Rx insulin glargine 100 unit/mL (3 20 unit subcut QAM for sugar 04/12/25 04/28/25 History mL) subcutaneous pen (Basaglar control inject at meal times. KwikPen U-100 Insulin) ergocalciferol (vitamin D2) 1,250 50,000 unit PO WK #12 caps 04/17/25 04/28/25 Rx mcg (50,000 unit) capsule (Vitamin D2) clopidogrel 75 mg tablet 75 mg PO QAM #30 tabs 04/18/25 04/28/25 Rx Patient History Medical History Stercoral colitis Acute UTI Esophageal ulcer without bleeding hx Hiatal hernia Hemorrhoids Esophageal spasm hx- pt not aware Edema mild, right LE History of COVID-19 2020 - resolved Acute non-ST elevation myocardial infarction (NSTEMI) 11/28/2021 had [facility] medical management and follow with dr abdullahi apt 02/09/2022 GERD without esophagitis Myocardial Infarction [place]- November 2005, January 2006, Aug 2006 3 total within an 8 month span--HX OF CATH 2013 [facility], FOLLOWS WITH DR. ABDULLAHI Surgical History Status post trigger finger release right thumb S/P coronary artery stent placement s/p stents to RCA November 2005; s/p stents to LAD, LCx in January 2006; s/p stents to RCA in 08/2006 History of total hysterectomy with bilateral salpingo-oophorectomy (BSO) History of lumbar spinal fusion History of total right knee replacement (TKR) History of esophageal dilatation History of colonoscopy with polypectomy History of esophagogastroduodenoscopy (EGD) History of tooth extraction all teeth History of cholecystectomy History of cataract surgery BL History of cardiac cath last 2012 @ [facility], no stents--s/p stents to RCA November 2005; s/p stents to LAD, LCx in January 2006; s/p stents to RCA in 08/2006 Family History Brother Myocardial infarction Anxiety Heart disease Hypertension Cancer Sister Family history of reaction to anesthesia difficulty waking Hypertension Heart disease Myocardial infarction Anxiety Cancer Diabetes Father Anxiety Heart disease Hypertension Mother Anxiety Hypertension Heart disease Unknown Cancer skin, GI Denies family history of Ovarian cancer Prostate cancer Breast cancer Colorectal cancer Stroke Social History Smoking Status: Never smoker Tobacco Type: Cigarettes Age Started Using Tobacco: 18; Age Quit Using Tobacco: 57; packs per day: 0.5; Second Hand Exposure: No; Do You Dip or Chew Tobacco: No; Hx Alcohol Use: No Hx Substance Use: No Preferred Language: Salvadorean Communication Ability: Effective Visual Impairment: Limited Hearing Ability: Normal Ditch Worker Required: No Beliefs That Will Affect Care: None marital status: / Current Living Situation: Alone Current Living Situation Comment: Pt currently lives home alone, but is concerned that she needs help at home current occupational status: retired and disabled How many Children do You have: 3 Feels Safe at Home: Yes Childhood Exposure to Second-Hand Smoke: No Diet: regular caffeine: Yes (drinks coffee, diet pepsi occasionally ) during the past year weight has: remained stable Dental Care, Regularly: No Physical Activity Frequency: Does not Exercise Seatbelt Use: always Sunscreen Use: No Assistive Devices: Denture - Upper, Glasses and Walker Review of Systems Review of Systems: All systems reviewed & are unremarkable except as noted in HPI & below Physical Exam Physical Exam: Constitutional: Alert, cooperative and in no distress. HEENT: Unremarkable Neck: No jugular venous distention, carotid pulses are normal and equal bilaterally without bruits. Pulmonary: Clear to auscultation bilaterally. Cardiac: Regular rhythm with a soft holosystolic murmur at the apex, no gallop or rub. Abdomen: Soft, nontender with normal bowel sounds. Extremities: No edema. Neurologic: No focal findings. Skin: No rash, ecchymoses or petechiae. Results & Data Vital Signs (Past 12 Hours) Vital Signs Temp Pulse Pulse Resp BP BP Pulse Ox 04/29/25 15:18 36.6 C 69 18 96/59 L 92 04/29/25 14:30 72 04/29/25 12:51 04/29/25 11:00 36.7 C 68 16 95/54 L 97/63 L 93 04/29/25 09:00 04/29/25 07:30 76 04/29/25 07:10 37.1 C 75 16 108/63 96 Pulse Ox Pulse Ox Pulse Ox O2 Del Method O2 Flow Rate O2 Flow Rate O2 Flow Rate 04/29/25 15:18 Room Air 04/29/25 14:30 04/29/25 12:51 94 94 90 0 0 04/29/25 11:00 Room Air 04/29/25 09:00 Nasal Cannula 2 04/29/25 07:30 04/29/25 07:10 Nasal Cannula 1 O2 Flow Rate 04/29/25 15:18 04/29/25 14:30 04/29/25 12:51 0 04/29/25 11:00 04/29/25 09:00 04/29/25 07:30 04/29/25 07:10 Laboratory Results Cardiac Enzymes 04/28/25 04/28/25 04/29/25 Range/Units 14:59 21:03 07:10 Troponin I High Sens 584.5 H* D 1409.5 H* D 848.9 H* D (0-14) pg/ml CBC 04/29/25 04/29/25 Range/Units 07:10 10:51 WBC 8.07 (4.8-10.8) K/ul RBC 3.29 L (4.20-5.40) M/uL Hgb 8.6 L 8.5 L (12.0-16.0) g/dl Hct 27.6 L 27.2 L (37.0-47.0) % Plt Count 237 (130-400) K/uL Neut # (Auto) 4.75 (1.40-6.50) K/uL Lymph # (Auto) 2.51 (1.20-3.40) K/uL [place] # (Auto) 0.56 (0.11-0.59) K/uL Eos # (Auto) 0.18 (0.00-0.50) K/uL Baso # (Auto) 0.05 (0.00-0.20) K/uL Comprehensive Metabolic Panel 04/29/25 Range/Units 07:10 Sodium 137 (136-145) mmol/L Potassium 5.0 (3.5-5.1) mmol/L Chloride 104 (98-107) mmol/L Carbon Dioxide 29 (21-32) mmol/L BUN 42 H (6-23) mg/dl Creatinine 1.69 H (0.6-1.2) mg/dl Glucose 139 H (70-99(Fasting)) mg/dl Calcium 8.5 L (8.6-10.3) mg/dl Intake and Output 04/29/25 04/29/25 04/29/25 06:59 14:59 22:59 Intake Total 60 / 740 240 / 240 Output Total 700 / 2650 750 / 750 Balance -640 / -1910 -510 / -510 Intake: Oral 60 / 640 240 / 240 Output: Urine 750 / 750 Urine Amount (Catheter) 700 / 2100 Temp Sensing Bliss 700 / 2100 Other: Weight 76.8 kg Weight Measurement Method Built in [facility] Diagnostic Findings Telemetry: Sinus rhythm rate 70-80 PG Care Time/CCT Total # of Minutes Spent Total Time Spent with Patient: Total time spent is greater than 50% in coordination of care (as documented) at patient's floor/unit and/or counseling patient: Coding Level of Care Code 03976 INT INP/OBS CARE 3/75MIN Diagnoses Acute heart failure with preserved ejection fraction (HFpEF) I50.31 Non-ST elevation [place] (NSTEMI) I21.4 Coronary artery disease involving hoopa coronary artery of hoopa heart, angina presence unspecified I25.10 Coronary Disease-Associated Artery/Lesion type: hoopa artery [place] vs. transplanted heart: hoopa heart Associated angina: angina presence unspecified CKD (chronic kidney disease), stage III N18.30 Chronic kidney disease stage 3 subtype: unspecified whether 3a or 3b (3) CAD (coronary artery disease) Coronary Disease-Associated Artery/Lesion type: [place] artery [place] vs. transplanted heart: hoopa heart Associated angina: angina presence unspecified Qualified Code(s): I25.10 - Atherosclerotic heart disease of [place] coronary artery without angina pectoris (4) CKD (chronic kidney disease), stage III Chronic kidney disease stage 3 subtype: unspecified whether 3a or 3b Qualified Code(s): N18.30 - Chronic kidney disease, stage 3 unspecified
[2025-04-29] MEDS: ENOXAPARIN INJ 30 MG/0.3 ML SYR SQ SCH (20:36)
[2025-04-30 07:42] LABS: Hematocrit (blood only) 29.7 % (37.0-47.0); Hemoglobin 9.7 g/dl (12.0-16.0); Immature Granulocytes # (auto) 0.02 K/uL (0.01-0.20); Immature Granulocytes % (auto) 0.3 %; Mean Corpuscular Hemoglobin 27.0 pg (25.0-34.0); Mean Corpuscular Volume 82.7 fL (80.0-100.0); Platelet Count 268 K/uL (130-400); RDW Standard Deviation 44.4 fL (36.4-46.3); Red Blood Count 3.59 M/uL (4.20-5.40); White Blood Count 6.30 K/ul (4.8-10.8)
[2025-04-30 07:56] LABS: Anion Gap 7.0 (3-11); Blood Urea Nitrogen 43.0 mg/dl (6-23); Calcium 9.2 mg/dl (8.6-10.3); Carbon Dioxide 30.0 mmol/L (21-32); Chloride 102.0 mmol/L (98-107); Creatinine Clr Calc Pharmacy 24.0 ml/min; Glucose 60.0 mg/dl (70-99(Fasting)); Potassium 4.5 mmol/L (3.5-5.1); Sodium 139.0 mmol/L (136-145)
--- NOTE | 2025-04-30 11:01 | Cardiology Progress Note ---
Date of Service April 30, 2025 Assessment & Plan (1) Acute heart failure with preserved ejection fraction (HFpEF): (2) Non-ST elevation NC (NSTEMI): (3) CAD (coronary artery disease): (4) CKD (chronic kidney disease), stage III: Plan 1. CHF: She presented with acute shortness of breath which sounds as though it is sudden pulmonary edema, although there are not a lot of objective findings. Her BNP is somewhat elevated but her chest x-ray does not show a lot of failure however her symptoms cleared very quickly after receiving nitroglycerin in the emergency room. She does not appear fluid overloaded nor does she describe recent signs or symptoms of congestive heart failure other than the day of presentation. 2. NSTEMI: She did have significant troponin elevation, 2 weeks ago when she presented with chest discomfort she had mild troponin elevation and now the troponin levels are quite a bit higher. On her last presentation several weeks ago she had chest discomfort, she does not report that this time but she was very short of breath. This is suggestive of an acute coronary syndrome with a "stuttering myocardial infarction". It has been 3 years since she had a catheterization and at that time there was nothing which could be done. I have asked Dr. Mcdonald to review her prior films and he feels we should not perform a repeat catheterization this admission. She is not on the lot of antianginal medications, she is only on nitrates and low-dose metoprolol (50 mg daily). I am going to increase her beta-blockade, hopefully her heart rate and blood pressure can support a higher dose. 3. Coronary disease: She has a history of coronary disease with interventions in the past, most recently in 2024 it was felt that she was not a bypass candidate nor an intervention candidate. That likely has not changed, however. If she fails medical therapy we may have to reconsider. 4. Chronic kidney disease: Her creatinine fluctuates quite a bit but is probably adequate for catheterization. I would continue statin therapy, aspirin and clopidogrel as well as isosorbide mononitrate, I will increase metoprolol succinate and maintain diuretics. Her blood pressure and heart rate are not elevated but appear adequate to increase her beta-blockade. Admission and Anticipated Discharge Date Admission Date: April 28, 2025 Subjective She seems to be feeling relatively well today. She tells me yesterday she was up and walking and had a little chest discomfort but her description is a little hard to follow and I am not sure it was angina. Today she has not been out of bed. Her n.p.o. order last evening did not allow for medications so she did not have any this morning. Physical Exam Physical Exam: Constitutional: Alert, cooperative and in no distress. HEENT: Unremarkable Neck: No jugular venous distention, carotid pulses are normal and equal bilaterally without bruits. Pulmonary: Clear to auscultation bilaterally. Cardiac: Regular rhythm with a soft holosystolic murmur at the apex, no gallop or rub. Abdomen: Soft, nontender with normal bowel sounds. Extremities: No edema. Neurologic: No focal findings. Skin: No rash, ecchymoses or petechiae. Results & Data Vital Signs (Past 12 Hours) Vital Signs Temp Pulse Pulse Resp BP Pulse Ox Pulse Ox 04/30/25 10:52 36.6 C 74 17 149/77 H 95 04/30/25 10:00 97 04/30/25 08:02 36.5 C 64 17 121/72 98 04/30/25 08:00 65 04/30/25 07:30 04/30/25 02:40 36.5 C 64 18 112/64 96 04/29/25 23:05 36.6 C 64 18 108/68 94 O2 Del Method O2 Del Method 04/30/25 10:52 Room Air 04/30/25 10:00 Room Air 04/30/25 08:02 Room Air 04/30/25 08:00 04/30/25 07:30 Room Air 04/30/25 02:40 Room Air 04/29/25 23:05 Room Air Laboratory Results Cardiac Enzymes 04/30/25 Range/Units 07:09 Troponin I High Sens 533.8 H* D (0-14) pg/ml CBC 04/29/25 04/30/25 Range/Units 10:51 07:09 WBC 6.30 (4.8-10.8) K/ul RBC 3.59 L (4.20-5.40) M/uL Hgb 8.5 L 9.7 L (12.0-16.0) g/dl Hct 27.2 L 29.7 L (37.0-47.0) % Plt Count 268 (130-400) K/uL Neut # (Auto) 2.80 (1.40-6.50) K/uL Lymph # (Auto) 2.64 (1.20-3.40) K/uL [place] # (Auto) 0.50 (0.11-0.59) K/uL Eos # (Auto) 0.28 (0.00-0.50) K/uL Baso # (Auto) 0.06 (0.00-0.20) K/uL Comprehensive Metabolic Panel 04/30/25 Range/Units 07:09 Sodium 139 (136-145) mmol/L Potassium 4.5 (3.5-5.1) mmol/L Chloride 102 (98-107) mmol/L Carbon Dioxide 30 (21-32) mmol/L BUN 43 H (6-23) mg/dl Creatinine 1.89 H (0.6-1.2) mg/dl Glucose 60 L (70-99(Fasting)) mg/dl Calcium 9.2 (8.6-10.3) mg/dl Intake and Output 04/29/25 04/30/25 04/30/25 22:59 06:59 14:59 Intake Total 240 / 480 Output Total 1250 / 2950 950 / 2950 675 / 675 Balance -1010 / -2470 -950 / -2470 -675 / -675 Intake: Oral 240 / 480 Output: Urine Amount (Catheter) 1250 / 2200 950 / 2200 675 / 675 Temp Sensing Bliss 1250 / 2200 950 / 2200 675 / 675 Other: Other Intake Source npo Weight 76.6 kg Diagnostic Findings Telemetry: Sinus rhythm 70 to 80 bpm, no significant arrhythmia PG Care Time/CCT Total # of Minutes Spent Total Time Spent with Patient: Total time spent is greater than 50% in coordination of care (as documented) at patient's floor/unit and/or counseling patient: Coding Level of Care Code 67877 SUB INP/OBS CARE 2/35MIN Diagnoses Acute heart failure with preserved ejection fraction (HFpEF) I50.31 Non-ST elevation NC (NSTEMI) I21.4 Coronary artery disease involving [place] coronary artery of [place] heart, angina presence unspecified I25.10 Coronary Disease-Associated Artery/Lesion type: [place] artery [place] vs. transplanted heart: [place] heart Associated angina: angina presence unspecified CKD (chronic kidney disease), stage III N18.30 Chronic kidney disease stage 3 subtype: unspecified whether 3a or 3b (3) CAD (coronary artery disease) Coronary Disease-Associated Artery/Lesion type: [place] artery [place] vs. transplanted heart: [place] heart Associated angina: angina presence unspecified Qualified Code(s): I25.10 - Atherosclerotic heart disease of [place] coronary artery without angina pectoris (4) CKD (chronic kidney disease), stage III Chronic kidney disease stage 3 subtype: unspecified whether 3a or 3b Qualified Code(s): N18.30 - Chronic kidney disease, stage 3 unspecified
[2025-04-30] MEDS: METOPROLOL SUCC 50MG EXT REL TAB PO STA (11:34)
--- NOTE | 2025-04-30 13:16 | Electrocardiogram Report ---
Test Reason : Blood Pressure : */* mmHG Vent. Rate : 101 BPM Atrial Rate : 101 BPM P-R Int : 162 ms QRS Dur : 74 ms QT Int : 350 ms P-R-T Axes : 58 40 -75 degrees QTcB Int : 453 ms Sinus tachycardia Abnormal ECG When compared with ECG of 12-Apr-2025 21:01, Vent. rate has increased by 35 bpm T wave inversion more evident in Inferior leads Inverted T waves have replaced nonspecific T wave abnormality in Lateral leads Confirmed by Lennox Zaman ([id number]) on 04/30/2025 1:16:00 PM Referred By: REFERRED SELF Confirmed By: Lennox Zaman
--- NOTE | 2025-04-30 19:48 | Hospitalist Progress Note ---
"Date of Service April 30, 2025 Assessment & Plan (1) Acute respiratory distress: (2) (HFpEF) heart failure with preserved ejection fraction: (3) Flash pulmonary edema: (4) Non-ST elevation [place] (NSTEMI): (5) Diabetes mellitus with hyperglycemia: Plan 80yo female with chronic HFpEF and known CAD. Presented with acute respiratory distress upon waking at 0500 the AM of admission. She was given nitro SL and placed on CPAP en route. [place] to have flash pulmonary edema at time of admission and improved quickly with IV lasix. #acute on chrnoic HFpEF | flash pulmonary edema - -recent echo (previous admit) - EF 60-65%, no LV wall motion abnormalities -repeat limited echo this admit - EF 55-60%, again no LV wall motion abnormalities -creatinine has risen to 1.8 today and appears euvolemic - place lasix IV on hold -meto succ increased to 100mg daily today by cardiology -repeat labs am #NSTEMI / known severe CAD - -multiple prior stents (LAD, RCA) -initial troponin 14 -peak troponin 1409 -admit EKG with inferior T wave inversions -also with NSTEMI during prior admit with peak troponin then of 117 L Heart cath in 11/2021 (Master Steinberg MD) - Impression: 1. Severe multivessel CAD including LAD, circumflex, and RCA. 2. Severe In-Stent restenosis of RCA stent and subtotal occlusion of OM2 stent (culprit vessel). 3. Small caliber vessels, especially mid to distal LAD and circumflex territories. 4. Normal left-sided filling pressure. 5. No significant aortic stenosis. Plan: 1. Medical therapy recommended. Suspected culprit lesion is small caliber vessel. 2. Consideration for CABG however does not appear to have suitable targets. CT surgery was contacted at [facility] and reviewed images. CT surgery agrees that she does not have suitable targets for CABG. -Dr Mcdonald from interventional cardiology reviewed her case - no plans for heart cath today -NPO canceled, to be treated medically -appreciate Dr Zaman & Dr Mcdonald recommendations -cont asa, plavix, meto succ, imdur, crestor -fortunately no ischemic symptoms at rest or with activity since admission #Anemia - -recheck Fe studies -H/H am -no obvious GI blood loss while here -cont ferrous sulfate orally for now -hemoglobin 9.7 today #Acute respiratory distress - resolved - -likely due to acute pulmonary edema -lungs clear today, no pulmonary symptoms, o2 sats wnl resp biofire negative upon ER presentation #T2DM - -acute hyperglycemia was likely from stress of acute resp distress/acute on chronic CHF/NSTEMI -BSGs have been excellent since last pm -reduce lantus dosing -cont novolog AC/HS -A1c 8.3% on 04/29/2025 #HTN | Hyperlipidemia - -Continue home aspirin, rosuvastatin, metoprolol succinate, isosorbide mononitrate -BPs acceptable at this time #Anxiety | depression - -Continue home buspirone, duloxetine #GERD | history of Mckeon's esophagus - -Continue PPI and famotidine updated patient's daughter at bedside today d/c ramirez home tomorrow; Wednesday?? Admission and Anticipated Discharge Date Admission Date: April 28, 2025 Subjective tele overnight wnl patient denies any recurrent chest symptoms - no pain, no tightness no orthopnea no edema denies any dyspnea on exertion -- worked with PT today; breathing completely normal during such ok with having ramirez removed today (placed in ER) daughter at bedside Review of Systems Review of Systems: cv - no orthopnea pulm - no wheezing GI - no N/V/pain Physical Exam Physical Exam: gen - NAD, looks well neck - no JVD mouth - MMM heart - RRR, s1 s2 lungs - CTA, scant dry rales lowest portion of bases abd - soft NT ND BS+ ext - no edema, pulses 2+ b/l psych - a/o x 3 Results & Data Results & Data Vital Signs (Past 12 Hours) Vital Signs Temp Pulse Pulse Resp BP Pulse Ox Pulse Ox 04/30/25 19:27 36.8 C 75 18 113/70 93 04/30/25 16:17 36.8 C 71 18 125/73 95 04/30/25 14:08 69 04/30/25 10:52 36.6 C 74 17 149/77 H 95 04/30/25 10:00 97 04/30/25 08:02 36.5 C 64 17 121/72 98 04/30/25 08:00 65 O2 Del Method O2 Del Method 04/30/25 19:27 Room Air 04/30/25 16:17 Room Air 04/30/25 14:08 04/30/25 10:52 Room Air 04/30/25 10:00 Room Air 04/30/25 08:02 Room Air 04/30/25 08:00 Laboratory Results Laboratory Results - last 24 hr 04/29/25 04/29/25 04/30/25 19:11 20:07 07:09 WBC 6.30 RBC 3.59 L Hgb 9.7 L Hct 29.7 L MCV 82.7 MCH 27.0 MCHC 32.7 RDW Std Deviation 44.4 RDW Coeff of Tino 14.6 H Plt Count 268 MPV 9.8 Immature Gran % (Auto) 0.3 Neut % (Auto) 44.5 Lymph % (Auto) 41.9 Petroleum % (Auto) 7.9 Eos % (Auto) 4.4 Baso % (Auto) 1.0 Neut # (Auto) 2.80 Lymph # (Auto) 2.64 [place] # (Auto) 0.50 Eos # (Auto) 0.28 Baso # (Auto) 0.06 Immature Gran # (Auto) 0.02 Sodium 139 Potassium 4.5 Chloride 102 Carbon Dioxide 30 Anion Gap 7 BUN 43 H Creatinine 1.89 H Est Cr Clr Drug Dosing 24.0 eGFR 26.86 BUN/Creatinine Ratio 22.8 H Glucose 60 L POC Glucose 105 H Calcium 9.2 Troponin I High Sens 533.8 H* D Blood Type Recheck A Positive PG Care Time/CCT Total # of Minutes Spent Total Time Spent with Patient: Total time spent is greater than 50% in coordination of care (as documented) at patient's floor/unit and/or counseling patient: Coding Level of Care Code 74594 SUB INP/OBS CARE 2/35MIN Diagnoses Acute respiratory distress R06.03 (HFpEF) heart failure with preserved ejection fraction I50.30 Flash pulmonary edema J81.0 Non-ST elevation NH (NSTEMI) I21.4 Diabetes mellitus with hyperglycemia E11.65"
[2025-04-30] MEDS ORDERED: LANTUS PER UNIT CHARGE SQ SCH (21:00)
[2025-04-30] MEDS: LANTUS PER UNIT CHARGE SQ SCH (22:06)
[2025-05-01 07:12] LABS: Anion Gap 7.0 (3-11); Blood Urea Nitrogen 41.0 mg/dl (6-23); Calcium 9.1 mg/dl (8.6-10.3); Carbon Dioxide 29.0 mmol/L (21-32); Chloride 103.0 mmol/L (98-107); Creatinine Clr Calc Pharmacy 26.4 ml/min; Glucose 69.0 mg/dl (70-99(Fasting)); Iron 23.0 mcg/dl (35-150); Potassium 4.3 mmol/L (3.5-5.1); Sodium 139.0 mmol/L (136-145); Total Iron Binding Cap Calc 321.0 mcg/dl (250-450); Transferrin 229.0 mg/dl (200-360); Transferrin (FE) Percent Satur 7.0 % (15-50)
[2025-05-01 07:30] LABS: Ferritin 52.2 ng/ml (8-388)
[2025-05-01] MEDS: METOPROLOL SUCC 50MG EXT REL TAB PO SCH (08:22)
[2025-05-01] MEDS: IRON SUCROSE 300 MG in SODIUM CHLORIDE 0.9% 250 ML IV ONE (12:11)
[2025-05-01] MEDS: CARBOHYDRATES FOR HYPOGLYCEMIA PO PRN (16:29)
--- NOTE | 2025-05-01 16:58 | Hospitalist Progress Note ---
"Date of Service May 01, 2025 Assessment & Plan (1) Hypoglycemia: (2) Acute respiratory distress: (3) (HFpEF) heart failure with preserved ejection fraction: (4) Flash pulmonary edema: (5) Non-ST elevation [place] (NSTEMI): (6) Diabetes mellitus with hyperglycemia: (7) Iron deficiency anemia: Plan 80yo female with chronic HFpEF and known CAD. Presented with acute respiratory distress upon waking at 0500 the AM of admission. She was given nitro SL and placed on CPAP en route. [place] to have flash pulmonary edema at time of admission and improved quickly with IV lasix. Had significant hyperglycemia upon ER arrival, but since 04/29 she has had either tightly-controlled BSGs or episodes of low blood sugars despite cutting back her lantus. #T2DM vs T1DM with significant lability at home & at hospital - -acute hyperglycemia was likely from stress of acute resp distress/acute on chronic CHF/NSTEMI -BSGs otherwise since then tightly controlled or low despite reductions in lantus -initially I had cut her lantus from 20 units/day to 12 units/day and this is still too much -will lower lantus further to 7 units HS -will reduce her novolog parameters significantly starting now -check a 2am BSG tonight -A1c 8.3% on 04/29/2025 -follow BSGs overnight -if values are stable could consider d/c and have her f/u with [facility] [place] upon discharge (perhaps she can see the DM educator same day or the next day) -will need to contact Mr Beckwith, her DM provider, at endo clinic -of note - 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 #acute on chrnoic HFpEF | flash pulmonary edema - euvolemic - -recent echo (previous admit) - EF 60-65%, no LV wall motion abnormalities -repeat limited echo this admit - EF 55-60%, again no LV wall motion abnormalities -creatinine had risen to 1.8 at peak - placed lasix IV on hold -meto succ increased to 100mg daily by cardiology and tolerating such -corresponded with Dr Zaman -- at hospital d/c either use lasix 20mg PRN weight gains OR M/W/F; favor PRN as Dr Lau's notes allude to orthostasis at times -will need yuliet f/u with Dr Lau post-discharge; will ask confidential secretary to arrange #NSTEMI / known severe CAD - -multiple prior stents (LAD, RCA) -initial troponin 14 -peak troponin 1409 -admit EKG with inferior T wave inversions -also with NSTEMI during prior admit with peak troponin then of 117 L Heart cath in 11/2021 (Master Steinberg MD) - Impression: 1. Severe multivessel CAD including LAD, circumflex, and RCA. 2. Severe In-Stent restenosis of RCA stent and subtotal occlusion of OM2 stent (culprit vessel). 3. Small caliber vessels, especially mid to distal LAD and circumflex territories. 4. Normal left-sided filling pressure. 5. No significant aortic stenosis. Plan: 1. Medical therapy recommended. Suspected culprit lesion is small caliber vessel. 2. Consideration for CABG however does not appear to have suitable targets. CT surgery was contacted at [facility] and reviewed images. CT surge ry agrees that she does not have suitable targets for CABG. -Dr Mcdonald from interventional cardiology reviewed her case - no plans for heart cath during this admission -to be treated medically -appreciate Dr Zaman & Dr Mcdonald recommendations -cont asa, plavix, meto succ, imdur, crestor -fortunately no ischemic symptoms at rest or with activity since admission #Anemia - -Fe studies c/w Fe def -venofer x 1 given today -no obvious GI blood loss while here -recheck CBC in am for stability #Acute respiratory distress - resolved - -likely was due to acute pulmonary edema -lungs clear today, no pulmonary symptoms, o2 sats wnl -resp biofire negative upon ER presentation -sats wnl in room air with walking #HTN | Hyperlipidemia - -Continue home aspirin, rosuvastatin, metoprolol succinate, isosorbide mononitrate -BPs acceptable at this time even despite the increase in meto succ dose to 100mg/day #Anxiety | depression - -Continue home buspirone, duloxetine #GERD | history of Mckeon's esophagus - -Continue PPI twice daily and famotidine updated patient's daughter at bedside today once again home tomorrow if BSGs are stable will need yuliet f/u with DM educator at endo clinic; would advise calling or [place] corresponding with her endo provider tomorrow - would ask for same day appt or next day appt in light of her recent & frequent lability & hypoglycemia Admission and Anticipated Discharge Date Admission Date: April 28, 2025 Subjective tele overnight wnl I had staff walk patient in hallway -- sats 99-100% in RA, no dyspnea or chest pain/chest symptoms around dinner time I went to her room with the hopes of discharging her home (her daughter had just arrived) her BSG was in the low 60s despite such she had NO symptoms of hypoglycemia patient has a [place] CGM it is unclear how often she actually checks the readings daughter states her mother has been having frequent lows at home AM, and in the afternoon as well takes lantus 20 units AM, and 2 units with each meal of novolog eats 2-3 meals/day there are times when she is high in the 200-300 range patient states she has been diabetic since age 12?? Review of Systems Review of Systems: gen - feels well despite the hypoglycemia cv - no cp, no orthopnea, no edema pulm - no dyspnea or cough GI - no N/V/abd pain Physical Exam Physical Exam: gen - NAD, looks well today, pleasant neck - no JVD mouth - MMM heart - RRR, s1 s2, no murmur lungs - CTA b/l, good airation, no wheezes abd - soft NT ND BS+ ext - no edema, pulses 2+ b/l psych - awake/alert Results & Data Results & Data Vital Signs (Past 12 Hours) Vital Signs Temp Pulse Pulse Resp BP Pulse Ox O2 Del Method 05/01/25 16:43 36.4 C L 65 20 145/81 H 98 Room Air 05/01/25 15:11 Room Air 05/01/25 14:15 60 05/01/25 12:00 36.4 C L 58 L 18 111/69 97 Room Air 05/01/25 07:43 36.4 C L 63 20 154/76 H 96 Room Air 05/01/25 07:00 61 Laboratory Results Laboratory Results - last 24 hr 05/01/25 05/01/25 05/01/25 05:38 07:27 11:13 Sodium 139 Potassium 4.3 Chloride 103 Carbon Dioxide 29 Anion Gap 7 BUN 41 H Creatinine 1.72 H Est Cr Clr Drug Dosing 26.4 eGFR 30.08 BUN/Creatinine Ratio 23.8 H Glucose 69 L POC Glucose 77 129 H Calcium 9.1 Iron 23 L TIBC 321 Transferrin 229 Transferrin % Sat 7 L Ferritin 52.2 05/01/25 16:25 Sodium Potassium Chloride Carbon Dioxide Anion Gap BUN Creatinine Est Cr Clr Drug Dosing eGFR BUN/Creatinine Ratio Glucose POC Glucose 63 L* Calcium Iron TIBC Transferrin Transferrin % Sat Ferritin PG Care Time/CCT Total # of Minutes Spent Total Time Spent with Patient: Total time spent is greater than 50% in coordination of care (as documented) at patient's floor/unit and/or counseling patient: Coding Level of Care Code 40042 SUB INP/OBS CARE 3/50MIN Diagnoses Hypoglycemia E16.2 Acute respiratory distress R06.03 (HFpEF) heart failure with preserved ejection fraction I50.30 Flash pulmonary edema J81.0 Non-ST elevation TN (NSTEMI) I21.4 Diabetes mellitus with hyperglycemia E11.65 Iron deficiency anemia D50.9"
[2025-05-01 19:23] VITALS: RESP 18
[2025-05-01] MEDS ORDERED: LANTUS PER UNIT CHARGE SQ SCH (21:00)
[2025-05-01] MEDS: LANTUS PER UNIT CHARGE SQ SCH (21:06)
[2025-05-02 06:41] LABS: Anion Gap 6.0 (3-11); Blood Urea Nitrogen 34.0 mg/dl (6-23); Calcium 8.9 mg/dl (8.6-10.3); Carbon Dioxide 28.0 mmol/L (21-32); Chloride 102.0 mmol/L (98-107); Creatinine Clr Calc Pharmacy 28.0 ml/min; Glucose 120.0 mg/dl (70-99(Fasting)); Potassium 4.4 mmol/L (3.5-5.1); Sodium 136.0 mmol/L (136-145)
[2025-05-02 08:04] LABS: Hematocrit (blood only) 29.6 % (37.0-47.0); Hemoglobin 9.8 g/dl (12.0-16.0); Mean Corpuscular Hemoglobin 27.1 pg (25.0-34.0); Mean Corpuscular Volume 81.8 fL (80.0-100.0); Platelet Count 251 K/uL (130-400); RDW Standard Deviation 43.3 fL (36.4-46.3); Red Blood Count 3.62 M/uL (4.20-5.40); White Blood Count 5.12 K/ul (4.8-10.8)
--- NOTE | 2025-05-02 11:02 | Discharge Summary ---
Discharge Summary Date of Service May 02, 2025 Principal Dx & Hospital Course #1 = Principal Diagnosis (1) Hypoglycemia: (2) Acute respiratory distress: (3) (HFpEF) heart failure with preserved ejection fraction: (4) Flash pulmonary edema: (5) Non-ST elevation GA (NSTEMI): (6) Diabetes mellitus with hyperglycemia: (7) Iron deficiency anemia: Plan 80yo female with chronic HFpEF and known CAD. Presented with acute respiratory distress upon waking at 0500 the AM of admission. She was given nitro SL and placed on CPAP en route. [place] to have flash pulmonary edema at time of admission and improved quickly with IV lasix. Had significant hyperglycemia upon ER arrival, but since 04/29 she has had either tightly-controlled BSGs or episodes of low blood sugars despite cutting back her lantus. #T2DM vs T1DM with significant lability at home & at hospital - -acute hyperglycemia was likely from stress of acute resp distress/acute on chronic CHF/NSTEMI -BSGs otherwise since then tightly controlled or low despite reductions in lantus -initially I had cut her lantus from 20 units/day to 12 units/day and this is still too much -will lower lantus further to 7 units HS -will reduce her novolog parameters significantly starting now -check a 2am BSG tonight -A1c 8.3% on 04/29/2025 -follow BSGs overnight -if values are stable could consider d/c and have her f/u with [facility] edi[facility] upon discharge (perhaps she can see the DM educator same day or the next day) -will need to contact Mr Beckwith, her DM provider, at endo clinic -of note - 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 #acute on chrnoic HFpEF | flash pulmonary edema - euvolemic - -recent echo (previous admit) - EF 60-65%, no LV wall motion abnormalities -repeat limited echo this admit - EF 55-60%, again no LV wall motion abnormalities -creatinine had risen to 1.8 at peak - placed lasix IV on hold -meto succ increased to 100mg daily by cardiology and tolerating such -corresponded with Dr Zaman -- at hospital d/c either use lasix 20mg PRN weight gains OR M/W/F; favor PRN as Dr Lau's notes allude to orthostasis at times -will need yuliet f/u with Dr Lau post-discharge; will ask membership secretary to arrange #NSTEMI / known severe CAD - -multiple prior stents (LAD, RCA) -initial troponin 14 -peak troponin 1409 -admit EKG with inferior T wave inversions -also with NSTEMI during prior admit with peak troponin then of 117 L Heart cath in 11/2021 (Master Steinberg MD) - Impression: 1. Severe multivessel CAD including LAD, circumflex, and RCA. 2. Severe In-Stent restenosis of RCA stent and subtotal occlusion of OM2 stent (culprit vessel). 3. Small caliber vessels, especially mid to distal LAD and circumflex territories. 4. Normal left-sided filling pressure. 5. No significant aortic stenosis. Plan: 1. Medical therapy recommended. Suspected culprit lesion is small caliber vessel. 2. Consideration for CABG however does not appear to have suitable targets. CT surgery was contacted at [facility] and reviewed images. CT surgery agrees that she does not have suitable targets for CABG. -Dr Mcdonald from interventional cardiology reviewed her case - no plans for heart cath during this admission -to be treated medically -appreciate Dr Zaman & Dr Mcdonald recommendations -cont asa, plavix, meto succ, imdur, crestor -fortunately no ischemic symptoms at rest or with activity since admission #Anemia - -Fe studies c/w Fe def -venofer x 1 given today -no obvious GI blood loss while here -recheck CBC in am for stability #Acute respiratory distress - resolved - -likely was due to acute pulmonary edema -lungs clear today, no pulmonary symptoms, o2 sats wnl -resp biofire negative upon ER presentation -sats wnl in room air with walking #HTN | Hyperlipidemia - -Continue home aspirin, rosuvastatin, metoprolol succinate, isosorbide mononitrate -BPs acceptable at this time even despite the increase in meto succ dose to 100mg/day #Anxiety | depression - -Continue home buspirone, duloxetine #GERD | history of Mckeon's esophagus - -Continue PPI twice daily and famotidine updated patient's daughter at bedside today once again home tomorrow if BSGs are stable will need yuliet f/u with DM educator at endo clinic; would advise calling or [place] corresponding with her endo provider tomorrow - would ask for same day appt or next day appt in light of her recent & frequent lability & hypoglycemia Admission HPI Per Admitting Provider Mrs. Rosas is a 80-year-old female with PMH of T2DM, NSTEMI, dementia, dysphagia, CKD stage III, B12/folic acid deficiency, and CAD. She presented via EMS on 04/28 for sudden onset of SOB/dyspnea and diaphoresis that awoke her from sleep at 0500. Patient lives alone. She reports she felt fine when she went to bed last night. Then, her breathing was so bad this morning that she felt like she was going to "pass out". While she denies chest pain, she does report she has pain with deep breaths at this time. No hemoptysis. No prior history of DVT/PE. No recent injuries to her legs. Patient denies any recent change in diet or weight; does watch her salt intake at home; denies any recent swelling in her legs. Additionally, she does have a productive cough (white sputum production). No sick contacts to her knowledge. She reports she does not take diuretics on a daily basis. Patient did not take any of her regular morning medicine today before coming in. No insulin yet today. She does manage her own medicine at home, with the help of her daughter (Elizabeth). Recent [place] hospitalization last week for NSTEMI. Patient denies smoking, tobacco use, recent alcohol use. Patient ambulates with a walker at baseline. Patient is 97% SpO2 on BiPAP at time of admission. EMS course: Per EMS, she was 85% on room air on arrival. Patient received 5 SL nitro and route and was placed on BiPAP; concern for flash pulmonary edema. ED course: Unasyn 3000 mg IV Lasix 40 mg IV Nitro-Bid 2% cream ROS: Patient endorses dizziness, lightheadedness, acute onset of SOB at rest (resolved), pleuritic CP, and productive cough. Patient denies fever, headache, hemoptysis, chest pain, chest palpitations, abdominal pain, N/V/D, burning with urination, blood in the urine/stool, melena, or swelling in the legs. Discharge Exam GENERAL APPEARANCE NAD, activity normal for age, well developed/ well nourished, no cyanosis, pallor, or diaphoresis. EYES lids/conjunctiva normal. EARS/NOSE/THROAT Mucous membranes moist, nares normal, lips/teeth normal uvula midline without oral pharyngeal erythema, exudate or swelling TMs normal bilaterally. No lymphangitis/lymphedema. HEAD/NECK normocephalic atraumatic, no facial trauma, neck is supple. RESPIRATORY respiratory effort normal, speaks in full sentences, no tripod position, no accessory muscle use. Lungs clear to auscultation without rhonchi, wheezes, rales CARDIAC Regular rate and rhythm, no edema. ABDOMINAL Soft, ND/NT. No evidence of fluid wave. No pulsatile masses on exam, rebound tenderness, Holliday sign or pain over Mcburney's point. MUSCLES/EXTREMITIES No abnormal range of motion, no swelling. SKIN Warm, pink and dry. No rashes, dermatoses, petechiae or lesions. NEUROLOGICAL Speech is clear and appropriate. Normal level of consciousness. Gait and coordination are normal. 5/5 strength in all extremities. PSYCH Normal mood and affect. Judgement/competence is appropriate Discharge Plan Discharge Items Patient Disposition: Home - Self-Care Reason For Visit: ACUTE CHF v PNA Discharge Diagnosis: CHF Condition on Discharge: Serious Activity: Resume your previous activity Non-emergency contact: Primary Care Provider Call non-emergency contact if: you have any medication questions Follow-up/Referrals: Shiela Contreras MD [Primary Care Provider] - Diet: Carb Consistent or DM2 Addtl Attending Provider Instructions: Follow up with PMD in 1 week Pending Studies at Discharge: No Stand-Alone Forms: My [employer], Smoking Cessation Medications and DC Order Prescriptions: New metoprolol succinate 50 mg Tablet Extended Release 24 Hr 100 mg PO QAM Qty: 30 0RF Continued folic acid 1 mg tablet 1 mg PO QAM Qty: 90 3RF famotidine 20 mg tablet 20 mg PO BID Qty: 180 3RF gabapentin 100 mg capsule 100 mg PO TID Qty: 90 11RF buspirone 10 mg tablet 10 mg PO BID Qty: 180 3RF isosorbide mononitrate 60 mg tablet extended release 24 hr 60 mg PO QAM Qty: 60 3RF pantoprazole 40 mg tablet,delayed release (DR/EC) 40 mg PO BID Qty: 90 3RF ergocalciferol (vitamin D2) [Vitamin D2] 1,250 mcg (50,000 unit) capsule 50,000 unit PO WK Qty: 12 1RF Rx Instructions: MONDAYS (DME) Lift Chair Misc See Rx Instructions .Route Qty: 1 0RF Rx Instructions: As directed aspirin 81 mg tablet,delayed release (DR/EC) 81 mg PO QAM levothyroxine 75 mcg tablet 75 mcg PO DAILY Qty: 30 5RF Rx Instructions: Take one tablet by mouth every other day for the first week, take every day thereafter. Take 30-45 minutes before any other oral intake. insulin aspart U-100 [Novolog FlexPen U-100 Insulin] 100 unit/mL (3 mL) insulin pen 2 unit subcut TID Qty: 15 5RF Rx Instructions: Inject 2 units 10-15 minutes before meals. magnesium oxide 400 mg (241.3 mg magnesium) tablet 400 mg PO QAM Qty: 30 11RF Trelegy Ellipta 100-62.5-25 mcg blister with device 1 inh inhalation QAM Qty: 60 11RF Rx Instructions: rinse mouth thoroughly after each dose. duloxetine 60 mg capsule,delayed release(DR/EC) 60 mg PO QAM Qty: 90 3RF (DME) blood-glucose meter [Accu-Chek Guide Glucose Meter] [facility] [place] [facility] See Rx Instructions .Route Qty: 1 0RF Rx Instructions: use to check blood sugar 1x daily (DME) Accu-Chek Guide test strips Strip See Rx Instructions .Route Qty: 50 11RF Rx Instructions: use to check blood sugar 1x daily diclofenac sodium 1 % gel 4 g topical QID PRN (Reason: Pain) Qty: 100 2RF Rx Instructions: apply to a single knee, shoulder, ankle, etc ferrous sulfate 325 mg (65 mg iron) tablet 325 mg PO QAM Rx Instructions: Please include in adherence packaging. Take at noon time rosuvastatin 20 mg tablet 20 mg PO QAM Rx Instructions: include in monthly pill packaging mecobalamin (vitamin B12) 1,000 mcg tablet,chewable 1,000 mcg PO QAM clopidogrel 75 mg Tablet 75 mg PO QAM Qty: 30 0RF Changed insulin glargine [Basaglar KwikPen U-100 Insulin] 100 unit/mL (3 mL) insulin pen 7 unit SUBCUT QAM Qty: 0 0RF Rx Instructions: Inject 20 units once a day in the morning. Discontinued metoprolol succinate 50 mg tablet extended release 24 hr 50 mg PO QAM Qty: 90 3RF Discharge Orders: Discharge Order (Routine); Ordered 05/02/25 Ordered By: Jacob Lovett Admission Data Admit Date/Time: 04/28/25 08:38 Attending Provider: Jacob Lovett Admit Provider: Fadi Munoz Primary Care Provider: Shiela Contreras Other Providers: Roger Vazquez Charles C.; [facility] Hospital Stay Data Consultations 04/28/25 07:45 ED Decision to Admit Stat 04/29/25 10:26 Consult Cardiology Routine Pending Results Patient Have Any Pending Studies at Discharge: No Discharge Instructions Given to Patient (Per Discharging Provider) Follow up with PMD in 1 week Total Time Total Time Spent Total Time Spent (In Minutes): 50 Coding Level of Care Code 52822 INP/OBS DISCH >30 MIN Diagnoses Hypoglycemia E16.2 Acute respiratory distress R06.03 (HFpEF) heart failure with preserved ejection fraction I50.30 Flash pulmonary edema J81.0 Non-ST elevation GA (NSTEMI) I21.4 Diabetes mellitus with hyperglycemia E11.65 Iron deficiency anemia D50.9
[2025-05-02 11:12] VITALS: BP 97/63; PULSE 80; TEMP 97.7; O2SAT 100
== END 2025-05-02 13:37 | disposition home health service (06) | DRG 280 ==
LOC: ED 06:41 → 2S 08:38 → SUATTDRO 08:38 → 2S 10:12

== ENCOUNTER 2025-07-24 16:43 | Inpatient (IN) ==
--- NOTE | 2025-07-24 17:27 | Emergency Department Note ---
Impression & Plan Confusion, Generalized weakness, Acute UTI (urinary tract infection) ED Provider Note ED Provider Note NAME: SHIRA CUNNINGHAM AGE:80 SEX: Female : 1945 ARRIVES VIA: Private vehicle INFORMANT: Patient ED PROVIDER(s): Maggie Posey DO CHIEF COMPLAINT: Increased confusion, weakness, decreased appetite HPI: This is a 80-year-old female who presents to the emergency department with family at bedside due to concern for increased confusion, weakness, and decreased appetite. Family states they feel the patient can no longer take care of herself at home. She has been able to perform personal hygiene tasks, however has been unsuccessful managing her medications even with their assistance. Daughter states she works full-time and the mother has fallen recently in addition. They are concern currently for possible occult infection. Daughter states they have been working towards trying to get her placed in a facility or personal-[facility] however there is not yet been any availability. Patient denies any current pain, difficulty breathing, admits to increased loose stools recently and does states she intermittently gets headaches. PAST MEDICAL HISTORY:See Below PAST SURGICAL HISTORY:See Below FAMILY HISTORY:See Below SOCIAL HISTORY:See Below HOME MEDICATIONS:See Below ALLERGIES:See Below VITALS:See Below PHYSICAL EXAMINATION: GENERAL: alert, well appearing, well nourished, no distress, non-toxic EYE EXAM: normal conjunctiva, PERRL and EOM's grossly intact OROPHARYNX: no exudate, no erythema, lips, buccal mucosa, and tongue normal and mucous membranes are moist NECK: supple, no nuchal rigidity, no adenopathy, non-tender LUNGS: Clear to auscultation. Normal chest wall mechanics, no w/r/r HEART: no murmurs, S1 normal and S2 normal ABDOMEN: abdomen soft, non-tender, normo-active bowel sounds, no masses, no rebound or guarding. SKIN: no rashes, petechiae, orbruising UPPER EXTREMITIES: upper extremities are grossly normal. FROM, nml pulses b/l. LOWER EXTREMITIES: No pitting edema. FROM, nml pulses b/l. NEURO EXAM: Normal sensorium, cranial nerves II-XII grossly intact, normal speech, no facial droop,nogross weakness of arms, no gross weakness of legs. Gross sensation intact. No ataxia. Vital Signs: reviewed and remarkable Differential Diagnosis: dehydration, stroke, anemia, hypoglycemia, hyponatremia, hypernatremia, urinary tract infection, pneumonia, bronchitis, sepsis, gastroenteritis, additional abdominal pathology, metabolic abnormalities, as well as others were considered MEDICAL DECISION MAKING: This is a 80-year-old female who presents to the emergency department due to concern by family for inability to care for self at home, increased weakness, noncompliance with medications, possible UTI. Patient was afebrile and hemodynamically stable on arrival. Labs drawn and sent, IV established, EKG and CXR performed and interpreted at bedside, and patient placed on telemetry. Patient sent for CT head as a precaution due to complaints of recent headaches as well as increased confusion. Patient started on IV fluids. Urine was collected and sent and was suggestive of infection. After review of prior urine cultures, she was given IV Rocephin. Patient's other labs are reassuring. She had no other symptoms to suggest concurrent ureterolithiasis or pyelonephritis. No evidence of changes concerning for sepsis. Case discussed with hospitalist team for additional evaluation and management. Consultation(s): 2125: Discussed with Dr. Mulligan, [place] hospitalist team, for additional evaluation and mgmt. ER Treatment Provided: See below Diagnostics Interpreted By Me: -ECG: Normal sinus at 65, normal axis, normal intervals, no acute ST/T wave changes -Cardiac Monitoring: An order was placed for continuous cardiac monitoring. The monitor shows a rate of 72 with normal sinus rhythm. -Laboratory studies: As stated above and show below. -Imaging studies: X-ray Chest: A single view study of the chest was reviewed and was negative for cardiomegaly, focal infiltrate, effusion, pulmonary edema, or wide mediastinum. Triage Nursing Note Reviewed Prior/Outside Records Reviewed Past Med/Surg History Problem List (Updated 07/25/25 @ 00:20 by Background Daemon) Acute UTI (urinary tract infection) (Acute) Generalized weakness (Acute) Confusion (Acute) Iron deficiency anemia (HFpEF) heart failure with preserved ejection fraction Flash pulmonary edema Acute heart failure with preserved ejection fraction (HFpEF) Elevated brain natriuretic peptide (BNP) level (Acute) History of GA (myocardial infarction) (Acute) Acute hyperglycemia (Acute) CHF (congestive heart failure) (Acute) Acute respiratory distress (Acute) Non-ST elevation GA (NSTEMI) (Acute) 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) Hyperlipidemia associated with type 2 diabetes mellitus (Chronic) Troponin level elevated (Acute) Chest pain, rule out acute myocardial infarction (Acute) Hypothyroidism (Chronic) Diabetes mellitus with hyperglycemia (Chronic) Urinary incontinence (Chronic) Stenosis of anal canal (Chronic) Dementia (Chronic) Chronic constipation with overflow (Chronic) Dysphagia (Chronic) Background diabetic retinopathy associated with type 2 diabetes mellitus (Chronic) Cervical spinal stenosis (Chronic) Hypertension (Chronic) 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) Vitamin D deficiency (Chronic) CKD (chronic kidney disease), stage III (Chronic) Folic acid deficiency (Chronic) Vitamin B12 deficiency (Chronic) Arthritis of knee, left (Chronic) Depression Lumbar spondylosis Uncontrolled type 2 diabetes mellitus with neurologic complication, with long- term current use of insulin GERD (gastroesophageal reflux disease) Mckeon esophagus (Chronic) CAD (coronary artery disease) (Chronic) s/p stents to RCA November 2005; s/p stents to LAD, LCx in January 2006; s/p stents to RCA in 08/2006 IBS (irritable bowel syndrome) Anxiety Medical History Stercoral colitis Acute UTI Esophageal ulcer without bleeding hx Hiatal hernia Hemorrhoids Esophageal spasm hx- pt not aware Edema mild, right LE History of COVID-2020 - resolved Acute non-ST elevation myocardial infarction (NSTEMI) 11/28/2021 had GA medical management and follow with dr abudllahi apt 02/09/2022 GERD without esophagitis Myocardial Infarction GA- November 2005, January 2006, Aug 2006 3 total within an 8 month span--HX OF CATH 2012 [facility] [place], FOLLOWS WITH DR. ABDULLAHI Surgical History Status post trigger finger release right thumb S/P coronary artery stent placement s/p stents to RCA November 2005; s/p stents to LAD, LCx in January 2006; s/p stents to RCA in 08/2006 History of total hysterectomy with bilateral salpingo-oophorectomy (BSO) History of lumbar spinal fusion History of total right knee replacement (TKR) History of esophageal dilatation History of colonoscopy with polypectomy History of esophagogastroduodenoscopy (EGD) History of tooth extraction all teeth History of cholecystectomy History of cataract surgery BL History of cardiac cath last 2012 @ [facility] [place], no stents--s/p stents to RCA November 2005; s/p stents to LAD, LCx in January 2006; s/p stents to RCA in 08/2006 Family History Brother Myocardial infarction Anxiety Heart disease Hypertension Cancer Sister Family history of reaction to anesthesia difficulty waking Hypertension Heart disease Myocardial infarction Anxiety Cancer Diabetes Father Anxiety Heart disease Hypertension Mother Anxiety Hypertension Heart disease Unknown Cancer skin, GI Denies family history of Ovarian cancer Prostate cancer Breast cancer Colorectal cancer Stroke Social History Smoking Status: Never smoker Tobacco Type: Cigarettes Age Started Using Tobacco: 18; Age Quit Using Tobacco: 57; packs per day: 0.5; Second Hand Exposure: No; Do You Dip or Chew Tobacco: No; Hx Alcohol Use: No Hx Substance Use: No Preferred Language: Lithuanian Communication Ability: Effective Visual Impairment: Limited Hearing Ability: Normal Special Needs Babysitter Required: No Beliefs That Will Affect Care: None marital status: / Current Living Situation: Alone Current Living Situation Comment: Pt currently lives home alone, but is concerned that she needs help at home current occupational status: retired and disabled How many Children do You have: 3 Feels Safe at Home: Yes Childhood Exposure to Second-Hand Smoke: No Diet: regular caffeine: Yes (drinks coffee, diet pepsi occasionally ) during the past year weight has: remained stable Dental Care, Regularly: No Physical Activity Frequency: Does not Exercise Seatbelt Use: always Sunscreen Use: No Assistive Devices: Walker and Other Allergies Allergies Allergy/AdvReac Type Severity Reaction Status Date / Time cephalexin Allergy Intermediate Rash and Verified 07/24/25 08:23 itchiness Cephalosporins Allergy Intermediate Rash and Verified 07/24/25 08:23 itchiness Sulfa (Sulfonamide Allergy Intermediate Hives Verified 07/24/25 08:23 Antibiotics) Home Meds Home Medications Medication Instructions Recorded Confirmed aspirin 81 mg tablet,delayed 81 mg PO QAM 11/18/23 07/24/25 release ferrous sulfate 325 mg (65 mg 325 mg PO QAM 10/30/24 07/24/25 iron) tablet buspirone 10 mg tablet 10 mg PO BID 09/19/25 12/09/25 levothyroxine 75 mcg tablet 75 mcg PO DAILYBB 07/24/25 07/24/25 rosuvastatin 40 mg tablet 40 mg PO HS 07/24/25 07/24/25 Previous Rx's Medication Instructions Recorded diclofenac sodium 1 % topical gel 4 g topical QID PRN Pain #100 grams 07/09/23 Lift Chair #1 ea 09/06/23 famotidine 20 mg tablet 20 mg PO BID #180 tabs 09/12/24 gabapentin 100 mg capsule 100 mg PO TID #90 caps 09/28/24 duloxetine 60 mg capsule,delayed 60 mg PO QAM #90 caps 10/05/24 release fluticasone fur. 100 mcg-umeclid 1 inh inhalation QAM #60 ea 10/05/24 62.5 mcg-vilant 25 mcg inhalat.powder (Trelegy Ellipta) magnesium oxide 400 mg (241.3 mg 400 mg PO QAM #30 tabs 01/05/25 magnesium) tablet isosorbide mononitrate 60 mg 60 mg PO QAM #60 tabs 02/14/25 tablet,extended release 24 hr blood sugar diagnostic (Accu-Chek #50 ea 02/23/25 Guide test strips) blood-glucose meter (Accu-Chek #1 ea 02/23/25 Guide Glucose Meter) ergocalciferol (vitamin D2) 1,250 50,000 unit PO WK #12 caps 04/17/25 mcg (50,000 unit) capsule (Vitamin D2) nitroglycerin 0.4 mg sublingual 0.4 mg sublingual Q5M PRN chest 05/30/25 tablet pain #25 tabs metoprolol succinate 50 mg 100 mg (2 x 50 mg) PO QAM #60 tabs 06/11/25 tablet,extended release 24 hr folic acid 1 mg tablet 1 mg PO QAM #90 tabs 06/12/25 mecobalamin (vitamin B12) 1,000 1,000 mcg PO QAM #90 tabs 06/12/25 mcg chewable tablet clopidogrel 75 mg tablet 75 mg PO QAM #90 tabs 06/14/25 pantoprazole 40 mg tablet,delayed 40 mg PO BID #180 tabs 07/09/25 release insulin aspar prot-insulin aspart 8 unit (0.08 mL) subcut BID #15 mL 07/24/25 100 unit/mL (70-30) subcutaneous pen (Novolog Mix [id number] U-100) Results & Data (ED) Vital Signs Vital Signs - 24 hr 07/24/25 16:43 07/24/25 18:08 07/24/25 18:43 Temperature 36.6 C Temperature Source Temporal Artery Scan Pulse Rate 64 70 Pulse Rate [Right Finger] 66 Respiratory Rate 18 18 Blood Pressure 181/103 H Blood Pressure [Left Arm] 196/91 H Blood Pressure Mean 129 Blood Pressure Mean [Left Arm] 126 Pulse Oximetry 99 99 Oxygen Delivery Method Room Air Sepsis Recent Fever Within 48 Hours No Sepsis New/Unexplained Change in Mental Status N/A Sepsis Action Taken by Nursing No Action Required 07/24/25 20:08 07/24/25 20:45 07/24/25 21:07 Temperature Temperature Source Pulse Rate Pulse Rate [Right Finger] 65 70 70 Respiratory Rate 16 16 14 Blood Pressure Blood Pressure [Left Arm] 190/79 H 187/85 H 151/88 H Blood Pressure Mean Blood Pressure Mean [Left Arm] 116 119 109 Pulse Oximetry 99 99 99 Oxygen Delivery Method Room Air Room Air Room Air Sepsis Recent Fever Within 48 Hours Sepsis New/Unexplained Change in Mental Status Sepsis Action Taken by Nursing 07/24/25 22:01 Temperature Temperature Source Pulse Rate 70 Pulse Rate [Right Finger] Respiratory Rate Blood Pressure Blood Pressure [Left Arm] Blood Pressure Mean Blood Pressure Mean [Left Arm] Pulse Oximetry Oxygen Delivery Method Sepsis Recent Fever Within 48 Hours Sepsis New/Unexplained Change in Mental Status Sepsis Action Taken by Nursing Laboratory Data 07/24/25 18:16 07/24/25 18:16 Lab Results 07/24/25 07/24/25 07/24/25 Range/Units 17:39 18:16 20:07 WBC 6.50 (4.8-10.8) K/ul RBC 4.23 (4.20-5.40) M/uL Hgb 11.4 L (12.0-16.0) g/dL Hct 33.8 L (37.0-47.0) % MCV 79.9 L (80.0-100.0) fL MCH 27.0 (25.0-34.0) pg MCHC 33.7 (32.0-36.0) g/dL RDW Std Deviation 42.2 (36.4-46.3) fL RDW Coeff of Tino 14.5 (11.5-14.5) % Plt Count 192 (130-400) K/uL MPV 10.1 (9.4-12.4) fL Immature Gran % (Auto) 0.2 % Neut % (Auto) 48.5 % Lymph % (Auto) 36.5 % Gillespie % (Auto) 10.5 % Eos % (Auto) 3.1 % Baso % (Auto) 1.2 % Neut # (Auto) 3.16 (1.40-6.50) K/uL Lymph # (Auto) 2.37 (1.20-3.40) K/uL Gillespie # (Auto) 0.68 H (0.11-0.59) K/uL Eos # (Auto) 0.20 (0.00-0.50) K/uL Baso # (Auto) 0.08 (0.00-0.20) K/uL Immature Gran # (Auto) 0.01 (0.01-0.20) K/uL Sodium 136 (136-145) mmol/L Potassium 4.4 (3.5-5.1) mmol/L Chloride 103 (98-107) mmol/L Carbon Dioxide 25 (21-32) mmol/L Anion Gap 8 (3-11) BUN 33 H (6-23) mg/dl Creatinine 1.35 H (0.6-1.2) mg/dl Est Cr Clr Drug Dosing Not Reportable eGFR 40.23 BUN/Creatinine Ratio 24.4 H (10-20) Glucose 180 H (70-99(Fasting)) mg/dl Calcium 9.8 (8.6-10.3) mg/dl Magnesium 1.8 (1.7-2.4) mg/dl Total Bilirubin 0.4 (0.2-1.0) mg/dl AST 13 (13-39) U/L ALT 12 (7-52) U/L Alkaline Phosphatase 76 (34-104) U/L Troponin I High Sens 6.0 (0-14) pg/ml Total Protein 7.6 (6.0-8.3) gm/dl Albumin 3.9 (3.4-5.0) gm/dl Globulin 3.7 (2.5-4.0) gm/dl Albumin/Globulin Ratio 1.1 (0.9-2) Lipase 36 (11-82) U/L TSH 1.219 (0.300-4.500) uIu/ml Urine Color Yellow Urine Appearance Clear (Clear) Urine pH 7.0 (4.5-7.5) Ur Specific [place] 1.012 (1.000-1.030) Urine Protein 1+ H (Negative) Urine Glucose (UA) Negative (Negative) Urine Ketones Negative (Negative) Urine Blood 2+ H (Negative) Urine Nitrite Negative (Negative) Urine Bilirubin Negative (Negative) Urine Urobilinogen Negative (Negative) Ur Leukocyte Esterase 1+ H (Negative) Urine WBC (Auto) 11-20 H (0-5) /hpf Urine RBC (Auto) 3-5 H (0-2) /hpf U Hyaline Cast (Auto) 0-2 (0-2) /lpf U Epithel Cells (Auto) 0-2 (0-2) /hpf Urine Bacteria (Auto) 4+ H (None Seen) Urine Comment Adenovirus (PCR) Not Detected (NotDetected) B. pertussis DNA (PCR) Not Detected (NotDetected) B.parapertussis DNA PCR Not Detected (NotDetected) C. pneumoniae DNA (PCR) Not Detected (NotDetected) Coronavirus OC43 (PCR) Not Detected (NotDetected) Coronavirus HKU1 (PCR) Not Detected (NotDetected) Coronavirus 229E (PCR) Not Detected (NotDetected) SARS-CoV-2 (PCR) Not Detected (NotDetected) Coronavirus NL63 (PCR) Not Detected (NotDetected) Human Metapneumovir PCR Not Detected (NotDetected) Influenza Type A (PCR) Not Detected (NotDetected) Influenza Type B (PCR) Not Detected (NotDetected) M. pneumoniae (PCR) Not Detected (NotDetected) Parainfluenza 1 (PCR) Not Detected (NotDetected) Parainfluenza 2 (PCR) Not Detected (NotDetected) Parainfluenza 3 (PCR) Not Detected (NotDetected) Parainfluenza 4 (PCR) Not Detected (NotDetected) RSV (PCR) Not Detected (NotDetected) Entero/Rhino (PCR) Not Detected (NotDetected) Administered Medications Discontinued Medications Hydralazine HCl (Hydralazine Hcl 20 Mg/Ml Vial) 5 mg IV NOW ONE Stop: 07/24/25 20:37 Last Admin: 07/24/25 20:46 Dose: 5 mg Documented By: magdiel Sodium Chloride (Nss) 1,000 mls @ 125 mls/hr IV .Q8H LEON Stop: 07/27/25 17:44 Last Admin: 07/24/25 20:15 Dose: 125 mls/hr Documented By: magdiel Ceftriaxone Sodium (Rocephin) 2,000 mg in 50 mls @ 100 mls/hr IV NOW STA Stop: 07/24/25 21:15 Last Infusion: 07/25/25 00:54 Dose: Infused Documented By: Admin: 07/24/25 20:58 Dose: 100 mls/hr Documented By: magdiel Piperacillin Sod/Tazobactam Sod (Zosyn) 4.5 gm in 100 mls @ 200 mls/hr IV ONE ONE; Protocol Stop: 07/25/25 01:14 Last Admin: 07/25/25 00:58 Dose: 200 mls/hr Documented By: JIHAN Imaging Data Radiologist's Impression: Chest X-Ray 07/24/25 17:34 Chest radiograph, one view History: Chest pain Comparison: None Findings: Single AP view of the chest performed. No focal consolidation or pleural effusion. No pneumothorax. The cardiomediastinal silhouette is within normal limits. Normal pulmonary vascularity. No evidence for lymphadenopathy. No visualized bony or soft tissue abnormality. Impression: Normal chest radiograph Electronically signed by Matty Guerrero 07-24-2025 7:[address] 07/24/25 17:34 CT head without contrast History: AMS Comparison: None Technique: Using multidetector thin collimation helical acquisition technique, axial, coronal and sagittal CT images from the skull base to the vertex were obtained without intravenous contrast. Dose reduction techniques were achieved by using automatic exposure control and/or adjustment of mA and/or kV according to patient size and/or use of iterative reconstruction technique. Findings: No intracranial hemorrhage, mass-effect, or midline shift. The ventricles are proportionate to the cerebral sulci. The greenfield to white matter differentiation of the cerebral hemispheres is preserved. The basal cisterns are patent. There is moderate cerebral atrophy. Moderate, patchy low-attenuation changes in the white matter, most suggestive of sequelae of chronic small vessel ischemic disease. The visualized paranasal sinuses are clear. Mastoid air cells are clear. Impression: No acute intracranial pathology. Electronically signed by Matty Guerrero 07-24-2025 7:22 PM Discharge Plan Visit Data Chief Complaint: Urinary Symptoms Stated Complaint: UTI, SX PAST 3 DAYS, CONFUSION, HX OF UTI ED Provider: Maggie Posey Discharge Problem: Confusion, Generalized weakness, Acute UTI (urinary tract infection) Patient Disposition: Admitted As Inpatient Condition: Fair Discharge Instructions Interventions: ED Discharge Assessment Last Done: 07/24/25 23:30
[2025-07-24 18:34] LABS: Hematocrit (blood only) 33.8 % (37.0-47.0); Hemoglobin 11.4 g/dL (12.0-16.0); Immature Granulocytes # (auto) 0.01 K/uL (0.01-0.20); Immature Granulocytes % (auto) 0.2 %; Mean Corpuscular Hemoglobin 27.0 pg (25.0-34.0); Mean Corpuscular Volume 79.9 fL (80.0-100.0); Platelet Count 192 K/uL (130-400); RDW Standard Deviation 42.2 fL (36.4-46.3); Red Blood Count 4.23 M/uL (4.20-5.40); White Blood Count 6.50 K/ul (4.8-10.8)
[2025-07-24 18:41] LABS: Chlamydia pneumoniae PCR Not Detected (NotDetected); Coronavirus 229E PCR Not Detected (NotDetected); Coronavirus CoV-2 (COVID19)PCR Not Detected (NotDetected); Coronavirus HKU1 PCR Not Detected (NotDetected); Coronavirus NL63 PCR Not Detected (NotDetected); Coronavirus OC43PCR Not Detected (NotDetected); Human Metapneumovirus PCR Not Detected (NotDetected); Parainfluenza Virus 1 PCR Not Detected (NotDetected); Parainfluenza Virus 2 PCR Not Detected (NotDetected); Parainfluenza Virus 3 PCR Not Detected (NotDetected); Parainfluenza Virus 4 PCR Not Detected (NotDetected); Respiratory Syncytial VirusPCR Not Detected (NotDetected); Rhinovirus/Enterovirus PCR Not Detected (NotDetected)
[2025-07-24 18:53] LABS: Alanine Aminotransferase 12 U/L (7-52); Albumin Globulin Ratio 1.1 (0.9-2); Albumin Level 3.9 gm/dl (3.4-5.0); Alkaline Phosphatase 76 U/L (34-104); Anion Gap 8 (3-11); Bilirubin,Total 0.4 mg/dl (0.2-1.0); Blood Urea Nitrogen 33 mg/dl (6-23); Calcium 9.8 mg/dl (8.6-10.3); Carbon Dioxide 25 mmol/L (21-32); Chloride 103 mmol/L (98-107); Globulin 3.7 gm/dl (2.5-4.0); Glucose 180 mg/dl (70-99(Fasting)); Lipase 36 U/L (11-82); Magnesium 1.8 mg/dl (1.7-2.4); Potassium 4.4 mmol/L (3.5-5.1); Sodium 136 mmol/L (136-145); Total Protein 7.6 gm/dl (6.0-8.3)
[2025-07-24 19:08] LABS: Thyroid Stimulating Hormone 1.219 uIu/ml (0.300-4.500)
--- NOTE | 2025-07-24 19:23 | CT Scan Report ---
CT head without contrast History: AMS Comparison: None Technique: Using multidetector thin collimation helical acquisition technique, axial, coronal and sagittal CT images from the skull base to the vertex were obtained without intravenous contrast. Dose reduction techniques were achieved by using automatic exposure control and/or adjustment of mA and/or kV according to patient size and/or use of iterative reconstruction technique. Findings: No intracranial hemorrhage, mass-effect, or midline shift. The ventricles are proportionate to the cerebral sulci. The greenfield to white matter differentiation of the cerebral hemispheres is preserved. The basal cisterns are patent. There is moderate cerebral atrophy. Moderate, patchy low-attenuation changes in the white matter, most suggestive of sequelae of chronic small vessel ischemic disease. The visualized paranasal sinuses are clear. Mastoid air cells are clear. Impression: No acute intracranial pathology. Electronically signed by Matty Guerrero 07-24-2025 7:22 PM
--- NOTE | 2025-07-24 19:30 | XRay Report ---
Chest radiograph, one view History: Chest pain Comparison: None Findings: Single AP view of the chest performed. No focal consolidation or pleural effusion. No pneumothorax. The cardiomediastinal silhouette is within normal limits. Normal pulmonary vascularity. No evidence for lymphadenopathy. No visualized bony or soft tissue abnormality. Impression: Normal chest radiograph Electronically signed by Matty Guerrero 07-24-2025 7:30 PM
[2025-07-24] MEDS: SODIUM CHLORIDE 0.9% 1,000 ML IV SCH (20:15)
[2025-07-24 20:39] LABS: Appearance Urine Clear (Clear); Bacteria Urine Automated 4+ (None Seen); Cast Urine Automated 0-2 /lpf (0-2); Epithelial Cell Urine Auto 0-2 /hpf (0-2); Glucose Urine UA Negative (Negative)
[2025-07-24] MEDS: cefTRIAXone SODIUM 2,000 MG/50 ML BAG IV STA (20:58)
--- NOTE | 2025-07-24 21:39 | History & Physical Report ---
Date of Service July 24, 2025 Assessment & Plan (1) Acute UTI (urinary tract infection): (2) CKD (chronic kidney disease), stage III: (3) Type 2 diabetes mellitus with gastroparesis: Plan 80-year-old female PMHx CAD, GERD and Mckeon's esophagus, IBS, anxiety, T2DM, vitamin B12 and folate deficiency, CKD stage III, HTN, dementia, hypothyroidism, HLD, NSTEMI, HFpEF, JERMAINE, and chronic constipation with overflow presenting for concerns of confusion and urinary incontinence per patient's daughter. Evaluation is with baseline anemia, normal white cell count. No gross electrolyte abnormalities, but creatinine is slightly elevated at 1.35 (actually below her baseline). Imaging negative for acute findings . Admission for UTI requiring IV antibiotics. #UTI Symptoms of confusion, urinary incontinence per daughter, pt states she has been urinating more frequently. History of diabetes, no history of Pseudomonas on prior urine cultures. Has documented allergy to cephalosporins, 'rash and itchiness'; received Ceftriaxone in ED without reaction. Admission for mild encephalopathy 2/2 UTI. - CBC without leukocytosis or leukopenia; CMP creatinine 1.35, BUN 33 - UA for infection; pending cx - Head CT WNL - Zofran prn N/V - Acetaminophen prn fever/pain - Zosyn IV #CKD, Stage III Secondary to chronic vascular disease, diabetic nephropathy. Baseline creatinine around 1.5. Received 1L NSS in ED. - Cr 1.35, BUN 33 - trend as appropriate - UA suspicious for infection #T2DM H/o DMT2 with neuropathy, nephropathy, retinopathy; Follows with diabetes provider, most recent visit 07/24/2025; At home regimen includes insulin aspart 8 units twice daily, gabapentin for neuropathy. - Glucose on arrival 180; most recent A1C 04/2025 @ 8.3% - Hold home insulin, continue gabapentin - SSI with target BSG range 110-140mg/dL, CF 30, carb ratio 10 - Glargine 8U BID - BSG ACHS - Adjust regimen as needed #Dementia- Thought to be vascular in setting of risk factors, also Alzheimer's type #HTN- Metoprolol, Imdur - continue #HLD- Rosuvastatin - continue #CAD s/p JOHNATHAN- Follows with cardiology, most recent visit 05/23/2025; ASA, Plavix - continue #GERD/Mckeon's- EGD 02/2024; pantoprazole, famotidine - continue #Hypomagnesemia- History of hypomagnesemia, on PPI. Magnesium on admission 1.8; mag oxide - continue #COPD- CXR WNL; BioFire negative; O2 prn, no exacerbation at present; Trelegy - continue #Psych- Buspirone, duloxetine - continue #JERMAINE- H&H 11.4/33.8; she did have a minor nosebleed day of arrival which has ceased; ferrous sulfate, folic acid, B12 - continue #Hypothyroidism- TSH 1.219; Levothyroxine - continue Dispo: Admit, med/sx VTE Prophylaxis: SCDs This document was dictated utilizing [employer]. Please excuse any grammatical errors that may be secondary to use of this software. Admission and Anticipated Discharge Date Admission Date: 07/24/2025 History of Present Illness Chief Complaint: Confusion Primary Care Provider: Shiela Contreras MD 80-year-old female PMHx CAD, GERD and Mckeon's esophagus, IBS, anxiety, T2DM, vitamin B12 and folate deficiency, CKD stage III, HTN, dementia, hypothyroidism, HLD, NSTEMI, HFpEF, JERMAINE, and chronic constipation with overflow presenting for concerns of confusion and urinary incontinence per patient's daughter. Patient is a poor historian. States that she is not having any symptoms at present. States that she was brought in because her daughter thought that she was "peeing herself a lot." Patient states that she has been urinating more often than usual. She denies any additional LUTS to include dysuria or blood in her urine. She states that her only other abnormality is that she was having a nosebleed earlier the day of arrival which occasionally occurs, but it has slowed down. She denies any trauma. Denies abdominal pain, fever/chills, or nausea and vomiting. She is without additional concerns. History is limited as the patient is again, a poor historian, and no family members are present in the room at time of her admission. She send chest pain, SOB, abdominal pain, N/V/D/C, numbness/tingling, fever/chills, URI symptoms, weakness, syncope, or falls. ED evaluation revealed CBC without leukocytosis or leukopenia, H&H 11.4/33.8, stable platelets; CMP creatinine 1.35, BUN 33, ratio 24.4, glucose 180; troponin 6; lipase 36; TSH 1.219; magnesium 1.8; UA suspicious for infection; BioFire negative; CXR WNL; head CT no acute findings.; Provided with 1L NSS, hydralazine 5 mg IV, ceftriaxone 2 g IV in ED. Please see Dr. Mulligan's attestation for adjustments/additions to treatment plan. Allergies Allergy/AdvReac Type Severity Reaction Status Date / Time cephalexin Allergy Intermediate Rash and Verified 07/24/25 08:23 itchiness Cephalosporins Allergy Intermediate Rash and Verified 07/24/25 08:23 itchiness Sulfa (Sulfonamide Allergy Intermediate Hives Verified 07/24/25 08:23 Antibiotics) Home Medications Medication Instructions Recorded Confirmed Type diclofenac sodium 1 % topical gel 4 g topical QID PRN Pain #100 grams 07/09/23 07/24/25 Rx Lift Chair #1 ea 09/06/23 07/24/25 Rx aspirin 81 mg tablet,delayed 81 mg PO QAM 11/18/23 07/24/25 History release famotidine 20 mg tablet 20 mg PO BID #180 tabs 09/12/24 07/24/25 Rx gabapentin 100 mg capsule 100 mg PO TID #90 caps 09/28/24 07/24/25 Rx duloxetine 60 mg capsule,delayed 60 mg PO QAM #90 caps 10/05/24 07/24/25 Rx release fluticasone fur. 100 mcg-umeclid 1 inh inhalation QAM #60 ea 10/05/24 07/24/25 Rx 62.5 mcg-vilant 25 mcg inhalat.powder (Trelegy Ellipta) ferrous sulfate 325 mg (65 mg 325 mg PO QAM 10/30/24 07/24/25 History iron) tablet magnesium oxide 400 mg (241.3 mg 400 mg PO QAM #30 tabs 01/05/25 07/24/25 Rx magnesium) tablet isosorbide mononitrate 60 mg 60 mg PO QAM #60 tabs 02/14/25 07/24/25 Rx tablet,extended release 24 hr blood sugar diagnostic (Accu-Chek #50 ea 02/23/25 07/24/25 Rx Guide test strips) blood-glucose meter (Accu-Chek #1 ea 02/23/25 07/24/25 Rx Guide Glucose Meter) ergocalciferol (vitamin D2) 1,250 50,000 unit PO WK #12 caps 04/17/25 07/24/25 Rx mcg (50,000 unit) capsule (Vitamin D2) buspirone 10 mg tablet 10 mg PO BID 05/04/25 07/24/25 History nitroglycerin 0.4 mg sublingual 0.4 mg sublingual Q5M PRN chest 05/30/25 07/24/25 Rx tablet pain #25 tabs metoprolol succinate 50 mg 100 mg (2 x 50 mg) PO QAM #60 tabs 06/11/25 07/24/25 Rx tablet,extended release 24 hr folic acid 1 mg tablet 1 mg PO QAM #90 tabs 06/12/25 07/24/25 Rx mecobalamin (vitamin B12) 1,000 1,000 mcg PO QAM #90 tabs 06/12/25 07/24/25 Rx mcg chewable tablet clopidogrel 75 mg tablet 75 mg PO QAM #90 tabs 06/14/25 07/24/25 Rx pantoprazole 40 mg tablet,delayed 40 mg PO BID #180 tabs 07/09/25 07/24/25 Rx release insulin aspar prot-insulin aspart 8 unit (0.08 mL) subcut BID #15 mL 07/24/25 07/24/25 Rx 100 unit/mL (70-30) subcutaneous pen (Novolog Mix 70-30FlexPen U-100) levothyroxine 75 mcg tablet 75 mcg PO DAILYBB 07/24/25 07/24/25 History rosuvastatin 40 mg tablet 40 mg PO HS 07/24/25 07/24/25 History Past Med/Surg History Problem List (Updated 07/25/25 @ 00:20 by Background Daemon) Acute UTI (urinary tract infection) (Acute) Generalized weakness (Acute) Confusion (Acute) Iron deficiency anemia (HFpEF) heart failure with preserved ejection fraction Flash pulmonary edema Acute heart failure with preserved ejection fraction (HFpEF) Elevated brain natriuretic peptide (BNP) level (Acute) History of MN (myocardial infarction) (Acute) Acute hyperglycemia (Acute) CHF (congestive heart failure) (Acute) Acute respiratory distress (Acute) Non-ST elevation MN (NSTEMI) (Acute) 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) Hyperlipidemia associated with type 2 diabetes mellitus (Chronic) Troponin level elevated (Acute) Chest pain, rule out acute myocardial infarction (Acute) Hypothyroidism (Chronic) Diabetes mellitus with hyperglycemia (Chronic) Urinary incontinence (Chronic) Stenosis of anal canal (Chronic) Dementia (Chronic) Chronic constipation with overflow (Chronic) Dysphagia (Chronic) Background diabetic retinopathy associated with type 2 diabetes mellitus (Chronic) Cervical spinal stenosis (Chronic) Hypertension (Chronic) 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) Vitamin D deficiency (Chronic) CKD (chronic kidney disease), stage III (Chronic) Folic acid deficiency (Chronic) Vitamin B12 deficiency (Chronic) Arthritis of knee, left (Chronic) Depression Lumbar spondylosis Uncontrolled type 2 diabetes mellitus with neurologic complication, with long- term current use of insulin GERD (gastroesophageal reflux disease) Mckeon esophagus (Chronic) CAD (coronary artery disease) (Chronic) s/p stents to RCA November 2005; s/p stents to LAD, LCx in January 2006; s/p stents to RCA in 08/2006 IBS (irritable bowel syndrome) Anxiety Medical History Stercoral colitis Acute UTI Esophageal ulcer without bleeding hx Hiatal hernia Hemorrhoids Esophageal spasm hx- pt not aware Edema mild, right LE History of COVID-2020 - resolved Acute non-ST elevation myocardial infarction (NSTEMI) 11/28/2021 had MN medical management and follow with dr abdullahi apt 02/09/2022 GERD without esophagitis Myocardial Infarction MN- November 2005, January 2006, Aug 2006 3 total within an 8 month span--HX OF CATH [place] [facility] [place] FOLLOWS WITH DR. ABDULLAHI Surgical History Status post trigger finger release right thumb S/P coronary artery stent placement s/p stents to RCA November 2005; s/p stents to LAD, LCx in January 2006; s/p stents to RCA in 08/2006 History of total hysterectomy with bilateral salpingo-oophorectomy (BSO) History of lumbar spinal fusion History of total right knee replacement (TKR) History of esophageal dilatation History of colonoscopy with polypectomy History of esophagogastroduodenoscopy (EGD) History of tooth extraction all teeth History of cholecystectomy History of cataract surgery BL History of cardiac cath last 2012 [place] [facility] [place] no [place]ents--s/p stents to RCA November 2005; s/p stents to LAD, LCx in January 2006; s/p stents to RCA in 08/2006 Family History Brother Myocardial infarction Anxiety Heart disease Hypertension Cancer Sister Family history of reaction to anesthesia difficulty waking Hypertension Heart disease Myocardial infarction Anxiety Cancer Diabetes Father Anxiety Heart disease Hypertension Mother Anxiety Hypertension Heart disease Unknown Cancer skin, GI Denies family history of Ovarian cancer Prostate cancer Breast cancer Colorectal cancer Stroke Social History Smoking Status: Former smoker Tobacco Type: Cigarettes Age Started Using Tobacco: 18; Age Quit Using Tobacco: 57; packs per day: 0.5; Smoking End Date: many years ago-30 yrs+; Second Hand Exposure: No; Do You Dip or Chew Tobacco: No; Hx Alcohol Use: No Hx Substance Use: No Preferred Language: [place] Communication Ability: Effective Visual Impairment: Limited Hearing Ability: Normal Evp Operations Required: No Beliefs That Will Affect Care: None marital status: / Current Living Situation: Alone Current Living Situation Comment: daughter checks frequently, neighbor also assist at times current occupational status: retired and disabled How many Children do You have: 3 Other Information That Helps Us Care for You: Yes (pt having difficulty w/ self care) Feels Safe at Home: Yes Safety Concerns: Feels Safe At This Time Childhood Exposure to Second-Hand Smoke: No Diet: regular caffeine: Yes (drinks coffee, diet pepsi occasionally ) during the past year weight has: remained stable Dental Care, Regularly: No Physical Activity Frequency: Does not Exercise Seatbelt Use: always Sunscreen Use: No Assistive Devices: Walker Review of Systems Review of Systems: All systems reviewed & are unremarkable except as noted in Subjective Physical Exam Physical Exam: General: No acute distress Skin: Warm and dry Head: Normocephalic, atraumatic Eyes: PERRL, conjunctivae clear, sclera non-icteric ENT: External ear and ear canal without swelling; nose atraumatic; good dentition, tongue normal appearance, pharynx normal Neck: Supple, no LAD Cardio: RRR, no M/G/R, S1 and S2 normal Resp: No respiratory distress, Lungs CTA in all lobes bilaterally, no wheezes, rales, or rhonchi Abdomen: Soft, symmetric, nontender; No masses or hepatosplenomegaly; Bowel sounds normoactive MSK: No deformities; pulses palpable and equal; no edema. Neuro: Awake, alert; Sensation intact bilaterally; CN grossly intact Psych: Appropriate mood and affect; good judgement and insight. Results & Data Results & Data Vital Signs (Past 12 Hours) Vital Signs Temp Pulse Pulse Resp BP BP Pulse Ox 07/24/25 21:07 70 14 151/88 H 99 07/24/25 20:45 70 16 187/85 H 99 07/24/25 20:08 65 16 190/79 H 99 07/24/25 18:43 66 18 196/91 H 99 07/24/25 18:08 70 07/24/25 16:43 36.6 C 64 18 181/103 H 99 O2 Del Method 07/24/25 21:07 Room Air 07/24/25 20:45 Room Air 07/24/25 20:08 Room Air 07/24/25 18:43 Room Air 07/24/25 18:08 07/24/25 16:43 Laboratory Results 07/24/25 20:07 Urine Culture - Pending Urine,Clean Catch 07/24/25 07/24/25 07/24/25 20:07 18:16 17:39 WBC 6.50 RBC 4.23 Hgb 11.4 L Hct 33.8 L MCV 79.9 L MCH 27.0 MCHC 33.7 RDW Std Deviation 42.2 RDW Coeff of Tino 14.5 Plt Count 192 MPV 10.1 Immature Gran % (Auto) 0.2 Neut % (Auto) 48.5 Lymph % (Auto) 36.5 [place] % (Auto) 10.5 Eos % (Auto) 3.1 Baso % (Auto) 1.2 Neut # (Auto) 3.16 Lymph # (Auto) 2.37 [place] # (Auto) 0.68 H Eos # (Auto) 0.20 Baso # (Auto) 0.08 Immature Gran # (Auto) 0.01 Sodium 136 Potassium 4.4 Chloride 103 Carbon Dioxide 25 Anion Gap 8 BUN 33 H Creatinine 1.35 H Est Cr Clr Drug Dosing Not Reportable eGFR 40.23 BUN/Creatinine Ratio 24.4 H Glucose 180 H Calcium 9.8 Magnesium 1.8 Total Bilirubin 0.4 AST 13 ALT 12 Alkaline Phosphatase 76 Troponin I High Sens 6.0 Total Protein 7.6 Albumin 3.9 Globulin 3.7 Albumin/Globulin Ratio 1.1 Lipase 36 TSH 1.219 Urine Color Yellow Urine Appearance Clear Urine pH 7.0 Ur Specific [place] 1.012 Urine Protein 1+ H Urine Glucose (UA) Negative Urine Ketones Negative Urine Blood 2+ H Urine Nitrite Negative Urine Bilirubin Negative Urine Urobilinogen Negative Ur Leukocyte Esterase 1+ H Urine WBC (Auto) 11-20 H Urine RBC (Auto) 3-5 H U Hyaline Cast (Auto) 0-2 U Epithel Cells (Auto) 0-2 Urine Bacteria (Auto) 4+ H Urine Comment Adenovirus (PCR) Not Detected B. pertussis DNA (PCR) Not Detected B.parapertussis DNA PCR Not Detected C. pneumoniae DNA (PCR) Not Detected Coronavirus OC43 (PCR) Not Detected Coronavirus HKU1 (PCR) Not Detected Coronavirus 229E (PCR) Not Detected SARS-CoV-2 (PCR) Not Detected Coronavirus NL63 (PCR) Not Detected Human Metapneumovir PCR Not Detected Influenza Type A (PCR) Not Detected Influenza Type B (PCR) Not Detected M. pneumoniae (PCR) Not Detected Parainfluenza 1 (PCR) Not Detected Parainfluenza 2 (PCR) Not Detected Parainfluenza 3 (PCR) Not Detected Parainfluenza 4 (PCR) Not Detected RSV (PCR) Not Detected Entero/Rhino (PCR) Not Detected Diagnostic Findings Chest X-Ray 07/24/25 17:34 Chest radiograph, one view History: Chest pain Comparison: None Findings: Single AP view of the chest performed. No focal consolidation or pleural effusion. No pneumothorax. The cardiomediastinal silhouette is within normal limits. Normal pulmonary vascularity. No evidence for lymphadenopathy. No visualized bony or soft tissue abnormality. Impression: Normal chest radiograph Electronically signed by Matty Guerrero 07-24-2025 7:[address] 07/24/25 17:34 CT head without contrast History: AMS Comparison: None Technique: Using multidetector thin collimation helical acquisition technique, axial, coronal and sagittal CT images from the skull base to the vertex were obtained without intravenous contrast. Dose reduction techniques were achieved by using automatic exposure control and/or adjustment of mA and/or kV according to patient size and/or use of iterative reconstruction technique. Findings: No intracranial hemorrhage, mass-effect, or midline shift. The ventricles are proportionate to the cerebral sulci. The greenfield to white matter differentiation of the cerebral hemispheres is preserved. The basal cisterns are patent. There is moderate cerebral atrophy. Moderate, patchy low-attenuation changes in the white matter, most suggestive of sequelae of chronic small vessel ischemic disease. The visualized paranasal sinuses are clear. Mastoid air cells are clear. Impression: No acute intracranial pathology. Electronically signed by Matty Guerrero 07-24-2025 7:22 PM Medications Administered 1L NSS Hydralazine 5 mg IV Ceftriaxone 2 g IV Code Status & VTE Plan Code Status DNR/DNI Supervising Physician Co-Signing Physician Notes Attending addendum: I have physically seen this patient, have supervised the TRICE's activities, and agree with the H&P unless as otherwise noted. Assessment and Plan: The patient is a 80-year-old female with past medical history including CAD, GERD, Mckeon's esophagus, IBS, anxiety, diabetes mellitus type 2, vitamin B12 deficiency, folate deficiency, CKD stage III, hypertension, dementia, hypothyroidism, hyperlipidemia, NSTEMI, HFpEF, JERMAINE, and chronic constipation with overflow. She presents to the emergency department due to confusion and urinary incontinence as noted by patient's daughter. Urinalysis is suggestive of urinary tract infection, and patient will admitted for IV antibiotics treatment Urinary tract infection- Follow urine culture and sensitivity Tolerated ceftriaxone in the emergency department, despite notation of cephalosporins causing rash and itching. Discontinue ceftriaxone CT head normal Acetaminophen 650 mg by mouth every 6 hours as needed for mild pain or fever Zosyn 4.5 g IV every 8 hours CKD stage III- Creatinine on admission 1.35, with base around 1.5 Status post 1 L normal saline bolus in the ED Follow serially Diabetes mellitus type 2- Leukos of 180 on admission, with hemoglobin A1c on 05/10 of 8.4. Holding home insulin Glargine twice daily as noted Placed on Accu-Cheks with NovoLog SSI CAD/status post JOHNATHAN/hypertension- Continue metoprolol, Imdur, aspirin and Plavix. Remaining orders and notations as noted PG Care Time/CCT Total # of Minutes Spent Total Time Spent with Patient: Total time spent is greater than 50% in coordination of care (as documented) at patient's floor/unit and/or counseling patient: Coding Level of Care Code 93049 INT INP/OBS CARE MIN Diagnoses Acute UTI (urinary tract infection) N39.0 CKD (chronic kidney disease), stage III N18.30 Chronic kidney disease stage 3 subtype: unspecified whether 3a or 3b Type 2 diabetes mellitus with gastroparesis E11.43; K31.84 (2) CKD (chronic kidney disease), stage III Chronic kidney disease stage 3 subtype: unspecified whether 3a or 3b Qualified Code(s): N18.30 - Chronic kidney disease, stage 3 unspecified
[2025-07-25] MEDS ORDERED: GLUCOSE 40% GEL 15 GM TUBE PO PRN (00:30)
[2025-07-25] MEDS ORDERED: DEXTROSE 50% 50 ML SYRINGE IV PRN (00:30)
[2025-07-25] MEDS ORDERED: CARBOHYDRATES FOR HYPOGLYCEMIA PO PRN (00:30)
[2025-07-25] MEDS ORDERED: ONDANSETRON INJ 2 MG/ML 2 ML VIAL IV PRN (00:30)
[2025-07-25] MEDS ORDERED: GLUCOSE 10 TAB/TUBE PO PRN (00:30)
[2025-07-25] MEDS ORDERED: GLUCAGON FOR INJ 1 MG VIAL SQ PRN (00:30)
[2025-07-25] MEDS ORDERED: POLYETHYLENE (MIRALAX) 17 GM PACK PO PRN (00:30)
[2025-07-25] MEDS: PIPERACILLIN/TAZOBACTAM 4.5 GM/100 ML BAG IV ONE (00:58)
[2025-07-25] MEDS: PIPERACILLIN/TAZOBACTAM 4.5 GM/100 ML BAG IV SCH (05:53)
[2025-07-25] MEDS: LEVOTHYROXINE SODIUM 75 MCG TABLET PO SCH (05:53)
[2025-07-25 07:48] LABS: Anion Gap 9.0 (3-11); Blood Urea Nitrogen 25.0 mg/dl (6-23); Calcium 8.9 mg/dl (8.6-10.3); Carbon Dioxide 27.0 mmol/L (21-32); Chloride 102.0 mmol/L (98-107); Creatinine Clr Calc Pharmacy 37.0 ml/min; Glucose 217.0 mg/dl (70-99(Fasting)); Potassium 4.0 mmol/L (3.5-5.1); Sodium 138.0 mmol/L (136-145)
[2025-07-25] MEDS: CYANOCOBALAMIN (B-12) 500 MCG TABLET PO SCH (08:18)
[2025-07-25] MEDS: MAGNESIUM OXIDE 400 MG TAB PO SCH (08:18)
[2025-07-25] MEDS: METOPROLOL SUCC 50MG EXT REL TAB PO SCH (08:18)
[2025-07-25] MEDS: CLOPIDOGREL BISULFATE 75 MG TAB PO SCH (08:19)
[2025-07-25] MEDS: FOLIC ACID 1 MG TAB PO SCH (08:19)
[2025-07-25] MEDS: FERROUS SULFATE 325 MG TAB PO SCH (08:19)
[2025-07-25] MEDS: GABAPENTIN 100 MG CAP PO SCH (08:19)
[2025-07-25] MEDS: ASPIRIN 81 MG ECTAB PO SCH (08:19)
[2025-07-25] MEDS: ISOSORBIDE MONO EXTENDED REL 60 MG TABCR PO SCH (08:19)
[2025-07-25] MEDS: busPIRone 5 MG TAB PO SCH (08:19)
[2025-07-25] MEDS: INSULIN ASPART PER UNIT CHARGE SC SCH (08:20)
[2025-07-25] MEDS: LANTUS PER UNIT CHARGE SQ SCH (08:20)
[2025-07-25] MEDS: UMECLIDINIUM/VILANTEROL 62.5/25MCG 7 PUFFS/INHALER INH SCH (08:21)
[2025-07-25] MEDS: FLUTICASONE FUROATE 100MCG 14 PUFFS/INHALER INH SCH (08:21)
[2025-07-25] MEDS: FAMOTIDINE 20 MG TAB PO SCH (08:22)
[2025-07-25] MEDS: MICONAZOLE NITRATE POWDER 85 GM EXT SCH (08:32)
[2025-07-25] MEDS ORDERED: NON-FORMULARY MEDICATION (Fluticasone-Umeclidin-Vilanter [Trelegy Ellipta] 100-62.5-25 mcg INH SCH (09:00)
--- NOTE | 2025-07-25 11:18 | Hospitalist Progress Note ---
"Date of Service July 25, 2025 Assessment & Plan (1) Acute UTI (urinary tract infection): (2) CKD (chronic kidney disease), stage III: (3) Type 2 diabetes mellitus with gastroparesis: Plan 80-year-old female PMHx CAD, GERD and Mckeon's esophagus, IBS, anxiety, T2DM, vitamin B12 and folate deficiency, CKD stage III, HTN, dementia, hypothyroidism, HLD, NSTEMI, HFpEF, JERMAINE, and chronic constipation with overflow presenting for concerns of confusion and urinary incontinence per patient's daughter on 07/24/2025 #UTI | Metabolic encephalopathy Symptoms of confusion, urinary incontinence per daughter, pt states she has been urinating more frequently. CBC without leukocytosis or leukopenia, BMP w/ stable renal function & electrolytes. UA for infection; UC consistent w/ E. Coli, sensitivities pending. Head CT WNL Zofran prn N/V; Acetaminophen prn fever/pain Zosyn IV continued, tailor based on sensitivities if necessary. PT/OT consulted, appreciate recommendations. #CKD, Stage III Secondary to chronic vascular disease, diabetic nephropathy. Baseline creatinine around 1.5. Received 1L NSS in ED. Cr 1.35 on admission but now improved to 1.20 Avoid nephrotoxic agents, renally dose when appropriate. #T2DM H/o DMT2 with neuropathy, nephropathy, retinopathy Follows with diabetes provider, most recent visit 07/24/2025 At home regimen includes insulin aspart 8 units twice daily, gabapentin for neuropathy. A1C 04/2025 @ 8.3% Hold home insulin, continue gabapentin --> SSI with target BSG range 110- 140mg/dL, CF 30, carb ratio 10 & Glargine 8U BID BSG ACHS Adjust regimen as needed #Dementia- Thought to be vascular in setting of risk factors, also Alzheimer's type #HTN- Metoprolol, Imdur - continue #HLD- Rosuvastatin - continue #CAD s/p JOHNATHAN- Follows with cardiology, most recent visit 05/23/2025; ASA, Plavix - continue #GERD/Mckeon's- EGD 02/2024; pantoprazole, famotidine - continue #Hypomagnesemia- History of hypomagnesemia, on PPI. Magnesium on admission 1.8; mag oxide - continue #COPD- CXR WNL; BioFire negative; O2 prn, no exacerbation at present; Trelegy - continue #Psych- Buspirone, duloxetine - continue #JERMAINE- H&H 11.4/33.8; she did have a minor nosebleed day of arrival which has ceased; ferrous sulfate, folic acid, B12 - continue #Hypothyroidism- TSH 1.219; Levothyroxine - continue Dispo: Admit, med/sx VTE Prophylaxis: SCDs, Heparin SQ Admission and Anticipated Discharge Date Admission Date: July 24, 2025 Supervising Physician Co-Signing Physician Notes The patient was not seen by me. The chart was reviewed. Case discussed with JAVI Greenwood. Agree with assessment and plan Subjective Claire was seen & examined this morning. She reported some hip pain this morning but denied any additional complaints. She did mention that she does live alone in an apartment for discharge planning. Physical Exam Physical Exam: General: NAD, VS: BP 96/68; P75; T36.4C; R18 Resp: normal respiratory effort Extremities: Moves all extremities, no edema Neuro: A&O x3, Skin: intact, no lesions noted Results & Data Results & Data Vital Signs (Past 12 Hours) Vital Signs Temp Pulse Resp BP Pulse Ox O2 Del Method 07/25/25 07:30 Room Air 07/25/25 07:05 36.7 C 78 18 141/67 H 98 Room Air 07/25/25 05:49 88 162/88 H 07/25/25 00:30 Room Air 07/25/25 00:30 36.6 C 71 20 180/108 H 99 Room Air 07/24/25 23:25 68 20 168/100 H 98 Room Air PG Care Time/CCT Total # of Minutes Spent Total Time Spent with Patient: Total time spent is greater than 50% in coordination of care (as documented) at patient's floor/unit and/or counseling patient: Coding Level of Care Code 12143 SUB INP/OBS CARE 2/35MIN Diagnoses Acute UTI (urinary tract infection) N39.0 CKD (chronic kidney disease), stage III N18.30 Chronic kidney disease stage 3 subtype: unspecified whether 3a or 3b Type 2 diabetes mellitus with gastroparesis E11.43; K31.84 (2) CKD (chronic kidney disease), stage III Chronic kidney disease stage 3 subtype: unspecified whether 3a or 3b Qualified Code(s): N18.30 - Chronic kidney disease, stage 3 unspecified"
[2025-07-25] MEDS: ROSUVASTATIN CALCIUM 20 MG TAB PO SCH (20:49)
[2025-07-25] MEDS: HEPARIN SOD 5,000 UNIT/0.5 ML VIAL SQ SCH (20:52)
[2025-07-26 06:59] LABS: Hematocrit (blood only) 30.3 % (37.0-47.0); Hemoglobin 10.4 g/dL (12.0-16.0); Mean Corpuscular Hemoglobin 27.6 pg (25.0-34.0); Mean Corpuscular Volume 80.4 fL (80.0-100.0); Platelet Count 175 K/uL (130-400); RDW Standard Deviation 43.0 fL (36.4-46.3); Red Blood Count 3.77 M/uL (4.20-5.40); White Blood Count 6.14 K/ul (4.8-10.8)
[2025-07-26 07:44] LABS: Anion Gap 8.0 (3-11); Blood Urea Nitrogen 33.0 mg/dl (6-23); Calcium 8.5 mg/dl (8.6-10.3); Carbon Dioxide 27.0 mmol/L (21-32); Chloride 103.0 mmol/L (98-107); Creatinine Clr Calc Pharmacy 23.1 ml/min; Glucose 112.0 mg/dl (70-99(Fasting)); Potassium 3.7 mmol/L (3.5-5.1); Sodium 138.0 mmol/L (136-145)
[2025-07-26] MEDS: SODIUM CHLORIDE 0.9% 1,000 ML IV SCH (08:59)
--- NOTE | 2025-07-26 11:19 | Hospitalist Progress Note ---
"Date of Service July 26, 2025 Assessment & Plan (1) Acute UTI (urinary tract infection): (2) CKD (chronic kidney disease), stage III: (3) Type 2 diabetes mellitus with gastroparesis: Plan 80-year-old female PMHx CAD, GERD and Mckeon's esophagus, IBS, anxiety, T2DM, vitamin B12 and folate deficiency, CKD stage III, HTN, dementia, hypothyroidism, HLD, NSTEMI, HFpEF, JERMAINE, and chronic constipation with overflow presenting for concerns of confusion and urinary incontinence per patient's daughter on 07/24/2025 #UTI | Metabolic encephalopathy Symptoms of confusion, urinary incontinence per daughter, pt states she has been urinating more frequently. CBC without leukocytosis or leukopenia, BMP w/ stable renal function & electrolytes. UA for infection; UC consistent w/ craft sensitive E. Coli Head CT WNL Zofran prn N/V; Acetaminophen prn fever/pain Zosyn IV continued, tailor based on sensitivities if necessary. PT/OT consulted --> recommending rehab, spoke w/ daughter & she would prefer Claire go to [facility]. Discussed w/ CM. #CKD, Stage III Secondary to chronic vascular disease, diabetic nephropathy. Baseline creatinine around 1.5. Cr 1.35 on admission but bumped to 1.92. --> additional 1L of fluids given 07/26, encourage PO intake. Avoid nephrotoxic agents, renally dose when appropriate. #T2DM H/o DMT2 with neuropathy, nephropathy, retinopathy Follows with diabetes provider, most recent visit 07/24/2025 At home regimen includes insulin aspart 8 units twice daily, gabapentin for neuropathy. A1C 04/2025 @ 8.3% Hold home insulin, continue gabapentin --> SSI with target BSG range 110- 140mg/dL, CF 30, carb ratio 10 & Glargine 8U BID BSG ACHS Adjust regimen as needed #Dementia- Thought to be vascular in setting of risk factors, also Alzheimer's type #HTN- Metoprolol, Imdur - continue #HLD- Rosuvastatin - continue #CAD s/p JOHNATHAN- Follows with cardiology, most recent visit 05/23/2025; ASA, Plavix - continue #GERD/Mckeon's- EGD 02/2024; pantoprazole, famotidine - continue #Hypomagnesemia- History of hypomagnesemia, on PPI. Magnesium on admission 1.8; mag oxide - continue #COPD- CXR WNL; BioFire negative; O2 prn, no exacerbation at present; Trelegy - continue #Psych- Buspirone, duloxetine - continue #JERMAINE- H&H 11.4/33.8; she did have a minor nosebleed day of arrival which has ceased; ferrous sulfate, folic acid, B12 - continue #Hypothyroidism- TSH 1.219; Levothyroxine - continue Dispo: Admit, med/sx VTE Prophylaxis: SCDs, Heparin SQ Admission and Anticipated Discharge Date Admission Date: July 24, 2025 Supervising Physician Co-Signing Physician Notes The patient was not seen by me. The chart was reviewed. Case discussed with JAVI Greenwood. Agree with assessment and plan Subjective Claire was seen & examined this morning. She reports that she is feeling well today. She reports still feeling weak but denies any additional complaints. Physical Exam Physical Exam: General: NAD, VS: BP 99/64; P67; R20; T36.3C Resp: normal respiratory effort Extremities: Moves all extremities, no edema Neuro: A&O x3 Skin: intact, no lesions noted Results & Data Results & Data Vital Signs (Past 12 Hours) Vital Signs Temp Pulse Resp BP Pulse Ox O2 Del Method 07/26/25 08:10 36.7 C 66 20 151/78 H 96 Room Air 07/25/25 23:30 36.9 C 66 18 115/77 96 Room Air PG Care Time/CCT Total # of Minutes Spent Total Time Spent with Patient: Total time spent is greater than 50% in coordination of care (as documented) at patient's floor/unit and/or counseling patient: Coding Level of Care Code 08771 SUB INP/OBS CARE 2/35MIN Diagnoses Acute UTI (urinary tract infection) N39.0 CKD (chronic kidney disease), stage III N18.30 Chronic kidney disease stage 3 subtype: unspecified whether 3a or 3b Type 2 diabetes mellitus with gastroparesis E11.43; K31.84 (2) CKD (chronic kidney disease), stage III Chronic kidney disease stage 3 subtype: unspecified whether 3a or 3b Qualified Code(s): N18.30 - Chronic kidney disease, stage 3 unspecified"
[2025-07-27] MEDS: ACETAMINOPHEN 500 MG TAB PO PRN (09:37)
[2025-07-27 10:17] LABS: Hematocrit (blood only) 30.5 % (37.0-47.0); Hemoglobin 10.2 g/dL (12.0-16.0); Mean Corpuscular Hemoglobin 27.1 pg (25.0-34.0); Mean Corpuscular Volume 80.9 fL (80.0-100.0); Platelet Count 158 K/uL (130-400); RDW Standard Deviation 43.0 fL (36.4-46.3); Red Blood Count 3.77 M/uL (4.20-5.40); White Blood Count 5.79 K/ul (4.8-10.8)
[2025-07-27 10:33] LABS: Anion Gap 8.0 (3-11); Calcium 8.5 mg/dl (8.6-10.3); Carbon Dioxide 24.0 mmol/L (21-32); Chloride 108.0 mmol/L (98-107); Potassium 4.0 mmol/L (3.5-5.1); Sodium 140.0 mmol/L (136-145)
[2025-07-27 10:39] LABS: Blood Urea Nitrogen 24.0 mg/dl (6-23); Creatinine Clr Calc Pharmacy 26.8 ml/min; Glucose 166.0 mg/dl (70-99(Fasting))
--- NOTE | 2025-07-27 10:46 | Hospitalist Progress Note ---
"Date of Service July 27, 2025 Assessment & Plan (1) Acute UTI (urinary tract infection): (2) CKD (chronic kidney disease), stage III: (3) Type 2 diabetes mellitus with gastroparesis: Plan 80-year-old female PMHx CAD, GERD and Mckeon's esophagus, IBS, anxiety, T2DM, vitamin B12 and folate deficiency, CKD stage III, HTN, dementia, hypothyroidism, HLD, NSTEMI, HFpEF, JERMAINE, and chronic constipation with overflow presenting for concerns of confusion and urinary incontinence per patient's daughter on 07/24/2025 #UTI | Metabolic encephalopathy Symptoms of confusion, urinary incontinence per daughter, pt states she has been urinating more frequently. CBC without leukocytosis or leukopenia, BMP w/ stable renal function & electrolytes. UA for infection; UC consistent w/ craft sensitive E. Coli Head CT WNL Zofran prn N/V; Acetaminophen prn fever/pain s/p IV Zosyn, switch to PO Augmentin to complete course on 07/30 PT/OT consulted --> recommending rehab, auth submitted for [facility] currently. #CKD, Stage III Secondary to chronic vascular disease, diabetic nephropathy. Baseline creatinine around 1.5. Creatinine improved from 1.92 to 1.66 after IVF, continue to encourage PO intake. Avoid nephrotoxic agents, renally dose when appropriate. #T2DM H/o DMT2 with neuropathy, nephropathy, retinopathy Follows with diabetes provider, most recent visit 07/24/2025 At home regimen includes insulin aspart 8 units twice daily, gabapentin for neuropathy. A1C 04/2025 @ 8.3% Hold home insulin, continue gabapentin --> SSI with target BSG range 110- 140mg/dL, CF 30, carb ratio 10 & Glargine 8U BID BSG ACHS; Adjust regimen as needed #Dementia- Thought to be vascular in setting of risk factors, also Alzheimer's type #HTN- Metoprolol, Imdur - continue #HLD- Rosuvastatin - continue #CAD s/p JOHNATHAN- Follows with cardiology, most recent visit 05/23/2025; ASA, Plavix - continue #GERD/Mckeon's- EGD 02/2024; pantoprazole, famotidine - continue #Hypomagnesemia- History of hypomagnesemia, on PPI. Magnesium on admission 1.8; mag oxide - continue #COPD- CXR WNL; BioFire negative; O2 prn, no exacerbation at present; Trelegy - continue #Psych- Buspirone, duloxetine - continue #JERMAINE- H&H 11.4/33.8; she did have a minor nosebleed day of arrival which has ceased; ferrous sulfate, folic acid, B12 - continue #Hypothyroidism- TSH 1.219; Levothyroxine - continue Dispo: Admit, med/sx VTE Prophylaxis: SCDs, Heparin SQ Continue inpatient stay, developing a safe discharge plan Admission and Anticipated Discharge Date Admission Date: July 24, 2025 Supervising Physician Co-Signing Physician Notes The patient was not seen by me. The chart was reviewed. Case discussed with JAVI Greenwood. Agree with assessment and plan Subjective Claire was seen & examined this morning. She reports she is feeling well today. Denies any complaints. Discussed rehab with her which she is agreeable to Physical Exam Physical Exam: General: NAD, VS: BP 142/80; P73; R18; T36.8C Resp: normal respiratory effort Extremities: Moves all extremities, no edema Neuro: A&O x3 Skin: intact, no lesions noted Results & Data Results & Data Vital Signs (Past 12 Hours) Vital Signs Temp Pulse Resp BP Pulse Ox O2 Del Method 07/27/25 08:51 36.8 C 73 18 142/80 H 96 Room Air 07/26/25 22:47 36.5 C 63 16 136/77 98 Room Air PG Care Time/CCT Total # of Minutes Spent Total Time Spent with Patient: Total time spent is greater than 50% in coordination of care (as documented) at patient's floor/unit and/or counseling patient: Coding Level of Care Code 39113 SUB INP/OBS CARE 2/35MIN Diagnoses Acute UTI (urinary tract infection) N39.0 CKD (chronic kidney disease), stage III N18.30 Chronic kidney disease stage 3 subtype: unspecified whether 3a or 3b Type 2 diabetes mellitus with gastroparesis E11.43; K31.84 (2) CKD (chronic kidney disease), stage III Chronic kidney disease stage 3 subtype: unspecified whether 3a or 3b Qualified Code(s): N18.30 - Chronic kidney disease, stage 3 unspecified"
--- NOTE | 2025-07-27 16:28 | Electrocardiogram Report ---
Test Reason : Blood Pressure : */* mmHG Vent. Rate : 65 BPM Atrial Rate : 65 BPM P-R Int : 166 ms QRS Dur : 72 ms QT Int : 434 ms P-R-T Axes : 60 21 25 degrees QTcB Int : 451 ms Normal sinus rhythm Nonspecific ST and T wave abnormality Abnormal ECG When compared with ECG of 28-Apr-2025 06:46, Aberrant conduction is no longer Present Vent. rate has decreased by 36 bpm T wave inversion no longer evident in Inferior leads Nonspecific T wave abnormality has replaced inverted T waves in Lateral leads Confirmed by Lennox Zaman ([id number]) on 07/27/2025 4:28:19 PM Referred By: REFERRED SELF Confirmed By: Lennox Zaman
[2025-07-27] MEDS: AMOXICILLIN/CLAVULANATE 250 MG TAB PO SCH (21:01)
[2025-07-28 06:43] LABS: Creatinine Clr Calc Pharmacy 26.3 ml/min
[2025-07-28 08:18] VITALS: BP 171/85; PULSE 73; RESP 17; TEMP 98.2; O2SAT 96
--- NOTE | 2025-07-28 11:00 | Discharge Summary ---
Discharge Summary Date of Service July 28, 2025 Principal Dx & Hospital Course #1 = Principal Diagnosis (1) Acute UTI (urinary tract infection): (2) CKD (chronic kidney disease), stage III: (3) Type 2 diabetes mellitus with gastroparesis: Plan 80-year-old female PMHx CAD, GERD and Mckeon's esophagus, IBS, anxiety, T2DM, vitamin B12 and folate deficiency, CKD stage III, HTN, dementia, hypothyroidism, HLD, NSTEMI, HFpEF, JERMAINE, and chronic constipation with overflow presenting for concerns of confusion and urinary incontinence per patient's daughter on 07/24/2025 #UTI | Metabolic encephalopathy Symptoms of confusion, urinary incontinence per daughter, pt states she has been urinating more frequently. CBC without leukocytosis or leukopenia, BMP w/ stable renal function & electrolytes. Head CT WNL UA for infection; UC consistent w/ craft sensitive E. Coli s/p IV Zosyn, switch to PO Augmentin to complete course on 07/30 PT/OT consulted --> recommending rehab, accepted at [facility]. #CKD, Stage III Secondary to chronic vascular disease, diabetic nephropathy. Baseline creatinine around 1.5. Creatinine 1.69 on discharge. Encourage PO intake #T2DM H/o DMT2 with neuropathy, nephropathy, retinopathy Follows with diabetes provider, most recent visit 07/24/2025 At home regimen includes insulin aspart 8 units twice daily, gabapentin for neuropathy. - resume on discharge A1C 04/2025 @ 8.3% #Dementia- Thought to be vascular in setting of risk factors, also Alzheimer's type #HTN- Metoprolol, Imdur - continue #HLD- Rosuvastatin - continue #CAD s/p JOHNATHAN- Follows with cardiology, most recent visit 05/23/2025; ASA, Plavix - continue #GERD/Mckeon's- EGD 02/2024; pantoprazole, famotidine - continue #Hypomagnesemia- History of hypomagnesemia, on PPI. Magnesium on admission 1.8; mag oxide - continue #COPD- CXR WNL; BioFire negative; O2 prn, no exacerbation at present; Trelegy - continue #Psych- Buspirone, duloxetine - continue #JERMAINE- H&H 11.4/33.8; she did have a minor nosebleed day of arrival which has ceased; ferrous sulfate, folic acid, B12 - continue #Hypothyroidism- TSH 1.219; Levothyroxine - continue Discharged to [facility] for rehab 07/28. Admission HPI Per Admitting Provider 80-year-old female PMHx CAD, GERD and Mckeon's esophagus, IBS, anxiety, T2DM, vitamin B12 and folate deficiency, CKD stage III, HTN, dementia, hypothyroidism, HLD, NSTEMI, HFpEF, JERMAINE, and chronic constipation with overflow presenting for concerns of confusion and urinary incontinence per patient's daughter. Patient is a poor historian. States that she is not having any symptoms at present. States that she was brought in because her daughter thought that she was "peeing herself a lot." Patient states that she has been urinating more often than usual. She denies any additional LUTS to include dysuria or blood in her urine. She states that her only other abnormality is that she was having a nosebleed earlier the day of arrival which occasionally occurs, but it has slowed down. She denies any trauma. Denies abdominal pain, fever/chills, or nausea and vomiting. She is without additional concerns. History is limited as the patient is again, a poor historian, and no family members are present in the room at time of her admission. She send chest pain, SOB, abdominal pain, N/V/D/C, numbness/tingling, fever/chills, URI symptoms, weakness, syncope, or falls. ED evaluation revealed CBC without leukocytosis or leukopenia, H&H 11.4/33.8, stable platelets; CMP creatinine 1.35, BUN 33, ratio 24.4, glucose 180; troponin 6; lipase 36; TSH 1.219; magnesium 1.8; UA suspicious for infection; BioFire negative; CXR WNL; head CT no acute findings.; Provided with 1L NSS, hydralazine 5 mg IV, ceftriaxone 2 g IV in ED. Please see Dr. Mulligan's attestation for adjustments/additions to treatment plan. Discharge Exam General: NAD, VS: BP 171/85; P73; R17; T36.8C Resp: normal respiratory effort Extremities: Moves all extremities, no edema Neuro: A&O x3 Skin: intact, no lesions noted Discharge Plan Discharge Items Patient Disposition: Transfer Jail Fac Reason For Visit: UTI Discharge Diagnosis: UTI Condition on Discharge: Fair Activity: Resume your previous activity Non-emergency contact: Primary Care Provider Call non-emergency contact if: you have any medication questions, your symptoms worsen and you have a fever Follow-up/Referrals: Shiela Contreras MD [Primary Care Provider] - Diet: Carb Consistent or DM2 and Heart Healthy Addtl Attending Provider Instructions: Ms. Rosas, You were recently hospitalized for weakness and were found to have a UTI. You have been treated with antibiotics and are now ready to report to an inpatient rehab facility where you will get stronger prior to returning home. Medications: Your medication list has been reviewed and reconciled upon discharge to ensure accuracy and continuity of care. An updated list of all your medications is included with your hospital discharge paperwork. Please review this list closely, and make note of any changes. You have one dose left of your antibiotic. One Augmentin capsule has been sent to the pharmacy and you will take that this evening, 07/28. Take your medications as instructed; do not skip a dose of your medicines. Make sure all of your doctors know every medicine you are taking (including yatc-azv-gkkaotr medicines, vitamins, and supplements). Call your primary care provider before taking any new medicines (including over- the-counter medicines, vitamins, and supplements), because some of these may interact with your current medications, or may make your symptoms worse. Tell your primary care provider if you cannot afford your medications. Activity: You can do normal everyday activities as your body allows. Take rest breaks if you feel tired. Do not overexert. Stop activity if you have pain, shortness of breath or feel dizzy. Follow-up appointments: Make an appointment with your primary care physician within one week of discharge. A copy of this summary will be sent to them. Every time you see your primary care physician, or any other doctor, bring your medication list, and a list of questions. CONTACT YOUR PRIMARY CARE PROVIDER if you experience any of the following: Shortness of breath or difficulty breathing Fevers or chills Feeling tired with normal activity or experiencing dizziness or fainting Difficulty following your treatment plan, or difficulty taking medications CALL 911 OR GO TO THE EMERGENCY DEPARTMENT if you experience any of the following: Severe abdominal pain or nausea/vomiting Severe chest pain, or chest pain that radiates (moves) to your jaw or arm Sudden, severe shortness of breath or difficulty breathing Thank you for allowing us to participate in your care. Pending Studies at Discharge: No Stand-Alone Forms: [employer], Smoking Cessation Skilled Items Patient informed of condition?: Yes DNR: Yes Discharge Level of Care: Acute rehab Communicable Disease: No Discharge Prognosis: Improving Lines: None Urinary Catheter: No Medications and DC Order Prescriptions: New amoxicillin-pot clavulanate 250-125 mg Tablet 1 tab PO BIDM Qty: 1 0RF Continued famotidine 20 mg tablet 20 mg PO BID Qty: 180 3RF gabapentin 100 mg capsule 100 mg PO TID Qty: 90 11RF isosorbide mononitrate 60 mg tablet extended release 24 hr 60 mg PO QAM Qty: 60 3RF ergocalciferol (vitamin D2) [Vitamin D2] 1,250 mcg (50,000 unit) capsule 50,000 unit PO WK Qty: 12 1RF Rx Instructions: MONDAYS nitroglycerin 0.4 mg tablet, sublingual 0.4 mg sublingual Q5M PRN (Reason: chest pain) Qty: 25 1RF Rx Instructions: until response; do not exceed 3 doses per episode metoprolol succinate 50 mg tablet extended release 24 hr 100 mg PO QAM Qty: 60 3RF folic acid 1 mg tablet 1 mg PO QAM Qty: 90 3RF mecobalamin (vitamin B12) 1,000 mcg tablet,chewable 1,000 mcg PO QAM Qty: 90 3RF clopidogrel 75 mg tablet 75 mg PO QAM Qty: 90 1RF pantoprazole 40 mg tablet,delayed release (DR/EC) 40 mg PO BID Qty: 180 3RF aspirin 81 mg tablet,delayed release (DR/EC) 81 mg PO QAM magnesium oxide 400 mg (241.3 mg magnesium) tablet 400 mg PO QAM Qty: 30 11RF insulin asp prt-insulin aspart [Novolog Mix 70-30FlexPen U-100] 100 unit/mL (70-30) insulin pen 8 unit subcut BID Qty: 15 3RF Rx Instructions: Inject EIGHT units first thing in the morning with breakfast and just before the last meal of the day. buspirone 10 mg tablet 10 mg PO BID Trelegy Ellipta 100-62.5-25 mcg blister with device 1 inh inhalation QAM Qty: 60 11RF Rx Instructions: rinse mouth thoroughly after each dose. duloxetine 60 mg capsule,delayed release(DR/EC) 60 mg PO QAM Qty: 90 3RF diclofenac sodium 1 % gel 4 g topical QID PRN (Reason: Pain) Qty: 100 2RF Rx Instructions: apply to a single knee, shoulder, ankle, etc ferrous sulfate 325 mg (65 mg iron) tablet 325 mg PO QAM levothyroxine 75 mcg tablet 75 mcg PO DAILYBB Rx Instructions: Take one tablet by mouth every other day for the first week, take every day thereafter. Take 30-45 minutes before any other oral intake. rosuvastatin 40 mg tablet 40 mg PO HS No Action (DME) Lift Chair Misc See Rx Instructions .Route Qty: 1 0RF Rx Instructions: As directed (DME) blood-glucose meter [Accu-Chek Guide Glucose Meter] Misc See Rx Instructions .Route Qty: 1 0RF Rx Instructions: use to check blood sugar 1x daily (DME) Accu-Chek Guide test strips Strip See Rx Instructions .Route Qty: 50 11RF Rx Instructions: use to check blood sugar 1x daily Discharge Orders: Discharge Order (Routine); Ordered 07/28/25 Ordered By: Nakita Dewey Admission Data Admit Date/Time: 07/24/25 22:12 Attending Provider: Andrew Willis Admit Provider: Alex Mulligan Primary Care Provider: Shiela Contreras Other Providers: Alex Mulligan Other Interventions: Discharge Summary Assessment (RN) Last Done: 07/28/25 13:03 Hospital Stay Data Consultations 07/24/25 21:23 ED Decision to Admit Stat Diagnostic Imagining Performed 07/24/25 17:34 CT head/brain wo con Stat Pending Results Patient Have Any Pending Studies at Discharge: No Discharge Instructions Given to Patient (Per Discharging Provider) Ms. Rosas, You were recently hospitalized for weakness and were found to have a UTI. You have been treated with antibiotics and are now ready to report to an inpatient rehab facility where you will get stronger prior to returning home. Medications: Your medication list has been reviewed and reconciled upon discharge to ensure accuracy and continuity of care. An updated list of all your medications is included with your hospital discharge paperwork. Please review this list closely, and make note of any changes. You have one dose left of your antibiotic. One Augmentin capsule has been sent to the pharmacy and you will take that this evening, 07/28. Take your medications as instructed; do not skip a dose of your medicines. Make sure all of your doctors know every medicine you are taking (including over -the-counter medicines, vitamins, and supplements). Call your primary care provider before taking any new medicines (including over- the-counter medicines, vitamins, and supplements), because some of these may interact with your current medications, or may make your symptoms worse. Tell your primary care provider if you cannot afford your medications. Activity: You can do normal everyday activities as your body allows. Take rest breaks if you feel tired. Do not overexert. Stop activity if you have pain, shortness of breath or feel dizzy. Follow-up appointments: Make an appointment with your primary care physician within one week of discharge. A copy of this summary will be sent to them. Every time you see your primary care physician, or any other doctor, bring your medication list, and a list of questions. CONTACT YOUR PRIMARY CARE PROVIDER if you experience any of the following: Shortness of breath or difficulty breathing Fevers or chills Feeling tired with normal activity or experiencing dizziness or fainting Difficulty following your treatment plan, or difficulty taking medications CALL 911 OR GO TO THE EMERGENCY DEPARTMENT if you experience any of the following: Severe abdominal pain or nausea/vomiting Severe chest pain, or chest pain that radiates (moves) to your jaw or arm Sudden, severe shortness of breath or difficulty breathing Thank you for allowing us to participate in your care. Supervising Physician Co-Signing Physician Notes The patient was not seen by me. The chart was reviewed. Case discussed with JAVI Greenwood. Agree with assessment and plan Total Time Total Time Spent Total Time Spent (In Minutes): 40 Total Time Includes: Examination of the Patient, Discharge Planning and Medication Reconciliation Coding Level of Care Code 74349 INP/OBS DISCH >30 MIN Diagnoses Acute UTI (urinary tract infection) N39.0 CKD (chronic kidney disease), stage III N18.30 Chronic kidney disease stage 3 subtype: unspecified whether 3a or 3b Type 2 diabetes mellitus with gastroparesis E11.43; K31.84
== END 2025-07-28 13:41 | DRG 689 ==
LOC: ED 16:43 → SUATTDRO 22:12 → 3N 22:12